=== PATIENT | male | born 1950 | race Caucasian/White ===

== ENCOUNTER → 2018-04-28 07:19 | Outpatient (CLI) | payer MEDICARE, SELFPAY | PROVIDERS: PCP Family Medicine; Visit Provider Surgery | DX: R07.89 Other chest pain (principal); K92.0 Hematemesis | CPT/HCPCS: 99213 ==

== ENCOUNTER 2018-05-13 11:12 | Outpatient (REF) | payer MEDICARE, SELFPAY | END 2018-05-13 11:32 | LOC: NCHCN 11:12 | PROVIDERS: PCP Family Medicine; Visit Provider Family Medicine | DX: J39.2 Other diseases of pharynx (principal) | CPT/HCPCS: 87070 ==

== ENCOUNTER 2018-05-16 12:49 | Emergency (ER) | payer MEDICARE, SELFPAY ==
[2018-05-16] VITALS (21 sets, daily range): BP systolic 119–140; BP diastolic 65–84; PULSE 79–92; RESP 14–23; TEMP 37.1; O2SAT 93–96
--- NOTE | 2018-05-16 13:00 | ED.GENADUL_ITS ---
Discharge Plan Discharge Details Chief Complaint: Chest Pain Primary Care Provider: Arelis Michele V ED Provider: Rc Sandoval Home Meds and New Rx's Prescriptions: No Action venlafaxine [Effexor XR] 75 MG capsule,extended release 24hr 225 mg PO QPM RF: 0 omeprazole [Prilosec] 40 MG capsule,delayed release(DR/EC) 40 mg PO DAILY RF: 0 temazepam 30 MG capsule 30 mg PO HS RF: 0 multivitamin with minerals 1 EACH tablet 1 ea PO DAILY RF: 0 cholecalciferol (vitamin D3) 1,000 UNIT tablet 1,000 unit PO DAILY RF: 0 atorvastatin 10 MG tablet 10 mg PO HS RF: 0 ascorbic acid (vitamin C) [Vitamin C] 500 MG tablet 500 mg PO DAILY RF: 0 budesonide-formoterol [Symbicort] 10.2 GM HFA aerosol inhaler 2 puff Inhalation BID RF: 0 levothyroxine 25 MCG tablet 25 mcg PO DAILY RF: 0 metoprolol succinate 25 MG tablet extended release 24 hr 25 mg PO DAILY RF: 0 albuterol sulfate [ProAir HFA] 8.5 GM HFA aerosol inhaler 1 - 2 puff Inhalation Q6H PRN RF: 0 bupropion HCl [Wellbutrin SR] 150 MG tablet extended release 12 hr 150 mg PO DAILY RF: 0 terazosin 2 MG capsule 2 mg PO HS RF: 0 metronidazole 45 GM cream 45 gm Topical DAILY RF: 0 methylprednisolone [Medrol (Julius)] 4 MG tablets,dose pack 2 mg PO DAILY RF: 0 fluticasone [Flonase Allergy Relief] 9.9 ML spray,suspension 9.9 ml NS BID RF: 0 meclizine 25 MG tablet,chewable 25 mg PO PRN RF: 0 melatonin-pyridoxine HCl (B6) 1 EACH tablet 2 ea PO HS RF: 0 aspirin [Aspir-81] 81 MG tablet,delayed release (DR/EC) 81 mg PO DAILY RF: 0 infliximab [Remicade] 100 MG recon soln 1 ea IV .[id number] RF: 0 Medical Decision Making MDM Narrative Medical decision making narrative: 67-year-old male presents with intermittent episodes of left anterior chest pain over weeks time. He is afebrile and well- appearing. The discomfort is reproducible on exam. Differential diagnosis includes musculoskeletal/atypical chest discomfort, ACS, underlying pneumonia or pneumothorax. The patient was placed on a elder counselor, EKG was obtained, is referred for laboratory testing and x-ray. Patient's imaging studies are chronically elevated right hemidiaphragm without acute findings. His laboratories reveal unremarkable CBC, chemistry panel is unremarkable with a negative troponin. BNP normal at 41. Patient remains without active discomfort. This does appear to be more consistent with atypical chest wall discomfort. He would benefit from follow- up with primary care and consideration of outpatient stress testing if discomfort persists. Discussed home management as well as return precautions with the patient at the bedside prior to discharge. Lab Data Lab results reviewed: Yes I reviewed the patient's lab results. ECG Data Attestation: I personally reviewed and interpreted this ECG (s) as follows: Prior ECG tracings: available for review Interpretation: Normal sinus rhythm, rate of 90, the QRS is slightly widened but intervals otherwise unremarkable. No ST segment elevations present. Compared to tracing dated May 24, 2014 there is no significant changes HPI - General Adult General Mode of arrival: ambulatory . Date/Time Provider Initiated Documentation: 05/16/18 12:53 . Limitations to Documentation: no limitations . Information obtained by: patient . History of Present Illness 67 year old M presents to the emergency department with the chief complaint of CP, described as moderate, Quality is described as burning, and is localized to the chest and left. Patient extremity. and it has been intermittent and now resolved. No relieving factors improve symptom(s), No exacerbating factors reported . Patient notes no other symptoms.. Patient did receive the following treatments prior to arrival, none HPI Narrative: 67-year-old male presents with intermittent episodes of left anterior chest pain that lasts 5-10 minutes at a time, radiated to his elbow, terminate on their own. He states he has not had any trauma, no rash. He does not have a new cough or shortness of breath. He states he had been seen in the primary care office for this twice. No pain at the time of interview Related Data Home Medications Medication Instructions Recorded Confirmed cholecalciferol (vitamin D3) 1,000 unit PO DAILY NS 11/11/12 10/09/17 multivitamin with minerals 1 ea PO DAILY NS 11/11/12 10/09/17 omeprazole [Prilosec] 40 mg PO DAILY tab-cap NS 11/11/12 10/09/17 temazepam 30 mg PO HS NS 11/11/12 10/09/17 venlafaxine [Effexor XR] 225 mg PO QPM tab-cap NS 11/11/12 10/09/17 aspirin [Aspir-81] 81 mg PO DAILY 02/20/14 10/09/17 ascorbic acid (vitamin C) [Vitamin 500 mg PO DAILY 09/28/15 10/09/17 C] atorvastatin 10 mg PO HS tab-cap 09/28/15 10/09/17 budesonide-formoterol [Symbicort] 2 puff INHALATION BID inhaler 09/28/15 levothyroxine 25 mcg PO DAILY tab-cap 11/14/15 10/09/17 albuterol sulfate [ProAir HFA] 1 - 2 puff INHALATION Q6H PRN 12/22/15 10/09/17 inhaler metoprolol succinate 25 mg PO DAILY tab-cap 12/22/15 10/09/17 infliximab [Remicade] 1 ea IV .[id number] 01/18/17 10/09/17 bupropion HCl [Wellbutrin Sr] 150 mg PO DAILY tab-cap 04/28/18 fluticasone [Flonase Allergy 9.9 ml NS BID 04/28/18 Relief] meclizine 25 mg PO PRN tab.chew 04/28/18 melatonin-pyridoxine HCl (B6) 2 ea PO HS 04/28/18 methylprednisolone [Medrol] 2 mg PO DAILY 04/28/18 metronidazole 45 gm TOPICAL DAILY script 04/28/18 terazosin 2 mg PO HS tab-cap 04/28/18 Allergies Allergy/AdvReac Type Severity Reaction Status Date / Time lisinopril AdvReac Mild cough Unverified 04/28/18 12:57 calcium AdvReac unknown Unverified 04/28/18 12:57 Review of Systems Review of Systems 8 systems reviewed and otherwise neg [facility] Medical History Anxiety Complicated grief Depression Dyspnea Elevated hemidiaphragm Epistaxis GERD (gastroesophageal reflux disease) History of partial colectomy Hx of ventral hernia repair Hyperlipidemia Hypertension Hypothyroidism Insomnia Other osteoporosis with current pathological fracture, vertebra(e), subsequent encounter for fracture with routine healing Overweight Peripheral neuropathy Pharyngeal disorder Polyarthralgia Pulmonary hypertension Rheumatoid arthritis Rosacea Sicca syndrome Steroid-induced osteoporosis Social History Smoking/Tobacco Use Status: Never Surgical History Colectomy Colonoscopy - IV Sedation Hernia Repair, Incisional Exam Narrative Exam Narrative: GEN: awake, alert, oriented 3. Pleasant, well groomed, interactive. HEAD: Normocephalic, atraumatic ENT: Mucous membranes moist, oropharynx unremarkable, External ear exam unremarkable EYES: PERRL, EOMI NECK: Full ROM, no KAREN, no menigismus CHEST/RESP: Left anterior chest/pectoral muscle tender to palpation, no rash, clear to auscultation bilateral, no wheeze/rhonchi/rales CARDIOVASCULAR: RRR, no murmur, rub sydnee. 2+ Rad pulse bilateral ABDOMEN: Soft, nontender, no mass. +Bowel sounds EXT: Full ROM, no edema, no rash Neuro: Grossly normal neurologic exam, conversant, interactive. Psych: Speech fluent, thoughts congruent, affect normal
--- NOTE | 2018-05-16 13:08 | DI.RAD_ITS ---
SYMPTOMS/DIAGNOSIS: LT ANTERIOR REPRODUCIBLE CHEST PAIN PORTABLE CHEST: Comparison is made with PA and lateral chest of [id number]. The right diaphragm is again noted to be elevated. The heart is enlarged. The lungs appear clear. No pneumothorax is seen. IMPRESSION: No acute abnormality.
[2018-05-16] MEDS: Normal Saline Flush 10 ML SYR IVP (13:25)
[2018-05-16 13:42] LABS: Abs Immature Grans 0.01 k/cumm (0.0-0.09); Absolute Basophil Count 0.02 k/cumm (0.0-0.2); Absolute Eosinophil Count 0.36 k/cumm (0.0-0.7); Absolute Lymphocyte Count 1.76 k/cumm (1.2-3.4); Absolute Monocyte Count 0.74 k/cumm (0.11-0.7); Absolute Neutrophil Count 6.67 k/cumm (1.2-6.7); Basophils % 0.2; Eosinophils % 3.8; HCT 47.3 % (40.0-50.0); HGB 15.8 g/dL (13.5-17.5); Immature Grans % 0.1; Lymphocytes % 18.4; Mean Corp. HGB Concentration 33.4 g/dL (32.0-36.0); Mean Corpuscular Hemoglobin 29.6 pg (27.0-33.0); Mean Corpuscular Volume 88.7 fL (80-95); Mean Platelet Volume 9.6 fL (8.0-11.0); Monocytes % 7.7; Neutrophils % 69.8; Platelet Count 212 x1000/uL (130-400); RBC 5.33 m/cumm (4.50-6.00); RBC Distribution Width 14.9 % (11.8-14.1); White Blood Cell Count 9.56 k/cumm (4.4-10.8)
[2018-05-16 13:56] LABS: ALT 38 U/L (12-78); AST 27 U/L (15-37); Albumin 3.1 g/dL (3.4-5.0); Alkaline Phosphatase 95 U/L (46-116); Anion Gap 5.3 mmol/L (3-11); BUN 15 mg/dL (7-18); Bilirubin, Total 0.5 mg/dL (0.2-1.0); CO2 30.7 mmol/L (21.0-32.0); CREATININE 1.08 mg/dL (0.70-1.30); Calcium 8.4 mg/dL (8.5-10.1); Chloride 105 mmol/L (98-107); Glucose 120 mg/dL (70-100); Magnesium 1.9 mg/dL (1.8-2.4); NT-proBNP 41 pg/mL; Potassium 3.7 mmol/L (3.5-5.1); Sodium 141 mmol/L (136-145); Total Protein 6.1 g/dL (6.4-8.2)
[2018-05-16 13:58] LABS: Troponin I < 0.02 ng/mL (0.00-0.06)
== END 2018-05-16 14:44 | disposition home or self-care (01) ==
PROVIDERS: Emergency Provider Emergency Medicine; PCP Family Medicine
DX: R07.89 Other chest pain (principal); I10 Essential (primary) hypertension
CPT/HCPCS: 36415; 80053; 93005; 99284; 71045; 83735; 83880; 84484; 85025; 93010

== ENCOUNTER 2018-05-21 00:24 | Outpatient (CLI) | payer MEDICARE, SELFPAY ==
--- NOTE | 2018-05-21 08:12 | MERGEMPI_ITS ---
*[facility]* *[facility]* [address] [place] [address] Myocardial Perfusion Imaging - SPECT Regadenoson Date of study: 05/21/2018 *PATIENT PRESENTATION* Height: 182.9cm (72in) Blood Pressure: Weight: 91.8kg (202lb) BSA: 2.17m^2 Referring physician: Leonidas Blanco Ordering physician: Arelis Michele Impressions: - Abnormal contraction consistent with cardiomyopathy. - Study suggests moderate to large myocardial infarction, with minimal overall ischemia in the territory of the right coronary and left anterior descending arteries. Summary: 1. Myocardial perfusion imaging: The left ventricle is hhrchwonfk-sh-xllzyinn dilated. There is a moderate sized, severely intense, fixed defect involving the basal anteroseptal and mid anteroseptal, mid inferoseptal, mid inferior, mid inferolateral, lateral, apical septal, and apical wall(s). This suggests moderate myocardial infarction in the distribution of right coronary and left anterior descending artery. Overall ischemia: minimal. 2. The left ventricular end-systolic volume is 147ml. The calculated left ventricular ejection fraction after stress: 34%. LV global systolic function is severely reduced. Diffuse left ventricular regional motion abnormalities. There is dyskinesis involving the apical wall(s) of the left ventricle. There is severe hypokinesis involving the inferoseptal, inferior, and inferolateral wall(s) of the left ventricle. 3. Baseline ECG: Normal sinus rhythm with 1degrees AV block and a normal QRS morphology. Recommendations: Cardiology consult to discuss cardiac catheterization in order to evaluate coronary artery disease. This has been arranged, discussed with the referring physician, and discussed with the patient. Indication: R06.00. History: REASON FOR VISIT: INTERMITTENT EPISODES OF LEFT ANTERIOR CHEST PAIN, DESCRIBED PRESSURE. THAT LAST 5-10 MINUTES AT A TIME, RADIATED TO HIS LEFT ELBOW, TERMINATE ON THEIR OWN. LAST EPISODE WAS LAST NIGHT AND AGAIN THIS AM. Risk factors: Hypertension. Dyslipidemia. Cholesterol: 171mg/dl. HDL: 75mg/dl. LDL: 79mg/dl. Triglycerides: 112mg/dl. ALLERGIES: LISINOPRIL. CALCIUM. MEDICATIONS: VENLAFAXINE 225 MG Q PM. TERAZOSIN 2 MG Q HS. TEMAZEPAM 30 MG Q HS. OMEPRAZOLE 40 MG DAILY. MVI W/ MINERALS 1 DAILY. METOPROLOL SUCCINATE 25 MG DAILY. METHYLPREDNISOLONE 2 MG DAILY. MELATONIN-PYRIDOXINE HCL 2 MG Q HS. MECLIZINE 25 MG PRN. LEVOTHYROXINE 25 MCG DAILY. INFLIXIMAB 1 EACH IV Q 3 MONTHS. FLUTICASONE 9.9 ML NS BID. CHOLECALCIFEROL 1,000 UNITS DAILY. BUPROPION HCL 150 MG DAILY. BUDESONID-FORMOTEROL 2 PUFFS BID. ATORVASTATIN 10 MG HS. ASPIRIN 81 MG DAILY. ASCORBIC ACID 500 MG DAILY. ALBUTEROL SULFATE 1-2 PUFFS Q 6 HRS PRN. Imaging Technique: Protocol: Regadenoson. Acquisition: Gated SPECT; 1 day - rest/stress. The patient was imaged in the supine position. Attenuation correction used. Isotope administration: - Rest. Tc[99m]-sestamibi. Dose: 9.9mCi. Injection time: 08:20 AM. Injection to stress time: 00:45. - Stress. Tc[99m]-sestamibi. Dose: 34.9mCi. Injection time: 09:50 AM. 1-2 min before end of exercise Baseline ECG: SINUS RHYTHM. 1ST DEGREE AVB. HR 69 BPM. Normal sinus rhythm with 1degrees AV block and a normal QRS morphology. Stress protocol: +--------+--+ + + !Stage !HR!BP (mmHg) !Comments ! +--------+--+ + + !Baseline!69!132/56 (81)! ! +--------+--+ + + !1 min !85!142/68 (93)!Inject Regadenoson.! +--------+--+ + + !3 min !98!138/70 (93)! ! +--------+--+ + + !6 min !94!134/68 (90)! ! +--------+--+ + + * Stress results: The rate-pressure product for the peak heart rate and blood pressure was 21594zo Hg/min. Stress ECG: LEXISCAN PORTION OF STRESS TEST ENDED IN 6 MINUTES AND 10 SECONDS. PT EXPERIENCED NO SIGNIFICANT SIDE EFFECTS FROM LEXISCAN INJECTION. NORMAL HEART RATE AND BLOOD PRESSURE RESPONSE TO LEXISCAN INJECTION OCCASIONAL PVCs. NO ANGINA NO SIGNIFICANT ST SEGMENT CHANGES. Myocardial perfusion: Imaging information: gated. The image quality was good. The left ventricle is dsqtassaji-rj-ciexgbhj dilated. There is a moderate sized, severely intense, fixed defect involving the basal anteroseptal and mid anteroseptal, mid inferoseptal, mid inferior, mid inferolateral, lateral, apical septal, and apical wall(s). This suggests moderate myocardial infarction in the distribution of right coronary and left anterior descending artery. Overall ischemia: minimal. Ventricular Function (Wall Motion): The left ventricular end-systolic volume is 147ml. The calculated left ventricular ejection fraction after stress: 34%. LV global systolic function is severely reduced. Diffuse left ventricular regional motion abnormalities. There is dyskinesis involving the apical wall(s) of the left ventricle. There is severe hypokinesis involving the inferoseptal, inferior, and inferolateral wall(s) of the left ventricle. Study data: Leonidas Blanco MD supervised and was readily available during the procedure. This study was interpreted by [facility]. Study status: Routine. Consent: The risks, benefits, and alternatives to the procedure were explained to the patient and informed consent was obtained. Procedure: Initial setup. A baseline ECG was recorded. Surface ECG leads and manual cuff blood pressure measurements were monitored. Heart sounds: Normal. Lung sounds: Normal. Regadenoson stress test. Stress testing was performed, with regadenoson by intravenous bolus, for a total dose of 0.4mgover 10.00sec, followed by a 5ml saline flush. The infusion was terminated due to per protocol. Study completion: All catheters inserted during the procedure were removed. The patient tolerated the procedure well and was discharged from the lab. Discharge: The patient left the laboratory in stable condition. Birthdate: Patient birthdate: 1950. Sex: Gender: male. Study date: Study date: 05/21/2018. Study time: 08:12 AM. Signature Documentation: - The imaging portion of this study was interpreted by Nuclear Extrusion Press Adjuster Leonidas Blanco MD. - The imaging portion of this study was interpreted by Nuclear Radiologist Rc Jameson MD. - The Stress ECG portion of this study was interpreted by Leonidas Blanco MD. Electronically signed by Leonidas Blanco 05/21/2018 13:20
[2018-05-21] MEDS: Regadenoson 0.4 MG/5 ML SYR IVP (09:42)
== END 2018-05-21 00:44 ==
PROVIDERS: PCP Family Medicine; Visit Provider Family Medicine
DX: I42.9 Cardiomyopathy, unspecified (principal); I25.2 Old myocardial infarction; I25.10 Atherosclerotic heart disease of native coronary artery without angina pectoris; I51.7 Cardiomegaly; R06.00 Dyspnea, unspecified; I10 Essential (primary) hypertension; E78.5 Hyperlipidemia, unspecified
CPT/HCPCS: 78452; 93016; 93018; 93017; J2785

== ENCOUNTER → 2018-05-26 14:07 | Outpatient (BNVA) | payer MEDICARE, SELFPAY | PROVIDERS: PCP Family Medicine; Visit Provider Internal Medicine Interventional Cardiology | DX: R06.02 Shortness of breath (principal); I51.9 Heart disease, unspecified; R07.9 Chest pain, unspecified; I42.9 Cardiomyopathy, unspecified; I10 Essential (primary) hypertension | CPT/HCPCS: 99215; 99213 ==

== ENCOUNTER 2018-05-28 12:38 | Outpatient (CLI) | payer MEDICARE, SELFPAY | END 2018-05-28 12:58 | PROVIDERS: PCP Family Medicine; Visit Provider Surgery | DX: Z01.818 Encounter for other preprocedural examination (principal) ==

== ENCOUNTER 2018-06-04 11:48 | Outpatient (CLI) | payer MEDICARE, SELFPAY ==
--- NOTE | 2018-06-04 10:16 | DI.RAD_ITS ---
SYMPTOMS/DIAGNOSIS: WHEEZING, R06.2, NOCTURNAL COUGH, R05 CHEST X-RAY, PA AND LATERAL: Comparison is 05/16/18. The heart is enlarged but stable. Pulmonary vasculature is within normal limits. There is unchanged elevation of the right hemidiaphragm. The lungs are clear. No effusions or pneumothoraces are identified. The bones appear intact. IMPRESSION: No acute pulmonary process.
== END 2018-06-04 12:08 ==
PROVIDERS: PCP Family Medicine; Visit Provider Specialist/Technologist Athletic Trainer
DX: R06.2 Wheezing (principal); R05 Cough; I51.7 Cardiomegaly
CPT/HCPCS: 71046

== ENCOUNTER 2018-06-04 20:06 | Outpatient (REF) | payer MEDICARE, SELFPAY ==
[2018-06-04 20:21] LABS: Abs Immature Grans 0.03 k/cumm (0.0-0.09); Absolute Basophil Count 0.02 k/cumm (0.0-0.2); Absolute Eosinophil Count 0.48 k/cumm (0.0-0.7); Absolute Lymphocyte Count 2.11 k/cumm (1.2-3.4); Absolute Monocyte Count 0.88 k/cumm (0.11-0.7); Absolute Neutrophil Count 4.73 k/cumm (1.2-6.7); Basophils % 0.2; Eosinophils % 5.8; HCT 45.3 % (40.0-50.0); HGB 14.8 g/dL (13.5-17.5); Immature Grans % 0.4; Lymphocytes % 25.6; Mean Corp. HGB Concentration 32.7 g/dL (32.0-36.0); Mean Corpuscular Hemoglobin 29.3 pg (27.0-33.0); Mean Corpuscular Volume 89.7 fL (80-95); Mean Platelet Volume 10.3 fL (8.0-11.0); Monocytes % 10.7; Neutrophils % 57.3; Platelet Count 263 x1000/uL (130-400); RBC 5.05 m/cumm (4.50-6.00); RBC Distribution Width 14.9 % (11.8-14.1); White Blood Cell Count 8.25 k/cumm (4.4-10.8)
[2018-06-04 20:43] LABS: ALT 34 U/L (12-78); AST 29 U/L (15-37); Albumin 3.1 g/dL (3.4-5.0); Alkaline Phosphatase 87 U/L (46-116); Anion Gap 8.5 mmol/L (3-11); BUN 14 mg/dL (7-18); Bilirubin, Total 0.4 mg/dL (0.2-1.0); CO2 27.5 mmol/L (21.0-32.0); CREATININE 1.07 mg/dL (0.70-1.30); Calcium 8.6 mg/dL (8.5-10.1); Chloride 106 mmol/L (98-107); Glucose 124 mg/dL (70-100); NT-proBNP 73 pg/mL; Potassium 3.8 mmol/L (3.5-5.1); Sodium 142 mmol/L (136-145); Total Protein 5.4 g/dL (6.4-8.2)
== END 2018-06-04 20:26 ==
LOC: NCHCN 20:06
PROVIDERS: PCP Family Medicine; Visit Provider Specialist/Technologist Athletic Trainer
DX: R05 Cough (principal); R06.2 Wheezing; I42.9 Cardiomyopathy, unspecified
CPT/HCPCS: 80053; 83880; 85025

== ENCOUNTER 2018-06-06 15:31 | Outpatient (CLI) | payer MEDICARE, SELFPAY ==
[2018-06-06 16:31] LABS: HCT 45.4 % (40.0-50.0); HGB 14.9 g/dL (13.5-17.5); Mean Corp. HGB Concentration 32.8 g/dL (32.0-36.0); Mean Corpuscular Hemoglobin 29.1 pg (27.0-33.0); Mean Corpuscular Volume 88.7 fL (80-95); Platelet Count 288 x1000/uL (130-400); RBC 5.12 m/cumm (4.50-6.00); RBC Distribution Width 14.9 % (11.8-14.1); White Blood Cell Count 7.28 k/cumm (4.4-10.8)
[2018-06-06 16:50] LABS: BUN 12 mg/dL (7-18); CREATININE 1.02 mg/dL (0.70-1.30); Chloride 104 mmol/L (98-107); Potassium 4.1 mmol/L (3.5-5.1); Sodium 139 mmol/L (136-145)
[2018-06-06 16:54] LABS: Troponin I < 0.02 ng/mL (0.00-0.06)
[2018-06-06 17:05] LABS: D-Dimer 655 ng/mlFEU (<500)
== END 2018-06-06 15:51 ==
PROVIDERS: Internal Medicine Interventional Cardiology; PCP Family Medicine; Visit Provider Specialist/Technologist Athletic Trainer
DX: R06.02 Shortness of breath (principal)
CPT/HCPCS: 36415; 80051; 84520; 85027; 82565; 84484; 85379

== ENCOUNTER → 2018-06-09 13:59 | Outpatient (BNVA) | payer MEDICARE, SELFPAY | PROVIDERS: PCP Family Medicine; Visit Provider Internal Medicine Interventional Cardiology | DX: I11.0 Hypertensive heart disease with heart failure (principal); R06.02 Shortness of breath; R07.9 Chest pain, unspecified; I51.9 Heart disease, unspecified; I42.9 Cardiomyopathy, unspecified; K92.2 Gastrointestinal hemorrhage, unspecified | CPT/HCPCS: 99213 ==

== ENCOUNTER 2018-08-04 10:10 | Outpatient (CLI) | payer MEDICARE, SELFPAY | END 2018-08-04 10:30 | PROVIDERS: PCP Family Medicine; Visit Provider Internal Medicine Interventional Cardiology | DX: R07.9 Chest pain, unspecified (principal); R06.02 Shortness of breath; I42.9 Cardiomyopathy, unspecified; I10 Essential (primary) hypertension; K92.2 Gastrointestinal hemorrhage, unspecified | CPT/HCPCS: 93005; 93010; 99213 ==

== ENCOUNTER 2018-08-13 00:56 | Outpatient (CLI) | payer MEDICARE, SELFPAY ==
--- NOTE | 2018-08-13 11:09 | DI.RAD_ITS ---
SYMPTOMS/DIAGNOSIS: SUSPECT RT DIAPHRAGM PARALYSIS VS PARESIS, J98.6 CHEST FLUOROSCOPY: Fluoroscopy Time: 40 sec Fluoroscopic evaluation of the hemidiaphragms was performed during the intake of breath. Preliminary chest x-ray again shows prominent elevation of the right hemidiaphragm. This is unchanged in location compared to the oldest chest x-ray available dated 09/14/08. During the examination there was full excursion of the left hemidiaphragm consistent with normal diaphragmatic movement. During the examination there marked decreased movement of the right hemidiaphragm suggesting paresis. IMPRESSION: Marked paresis of the right hemidiaphragm.
== END 2018-08-13 01:16 ==
PROVIDERS: PCP Family Medicine; Visit Provider Internal Medicine Pulmonary Disease
DX: J98.6 Disorders of diaphragm (principal)
CPT/HCPCS: 71023

== ENCOUNTER 2018-08-14 01:01 | Outpatient (CLI) | payer MEDICARE, SELFPAY ==
--- NOTE | 2018-08-14 10:30 | MERGE_ITS ---
*[facility]* *[facility]* [address] [place] [address] Date of study: 08/14/2018 Transthoracic Echocardiography M-mode, complete 2D, complete spectral Doppler, and color Doppler *STUDY CONCLUSIONS* Summary: 1. Left ventricle: The cavity size was normal. Wall thickness was increased in a pattern of mild LVH. Systolic function was mildly reduced. The estimated ejection fraction was 45-50%. Moderate hypokinesis of the apical myocardium. Diastolic parameters were normal for age. There was no evidence of elevated ventricular filling pressure by Doppler parameters. 2. Mitral valve: There was mild regurgitation. 3. Right ventricle: The cavity size was normal. Wall thickness was normal. Systolic function was normal. 4. Atrial septum: No defect or patent foramen ovale was identified. 5. Pulmonary arteries: Pulmonary systolic pressure was in the range of 20mm Hg to 30mm Hg. 6. Inferior vena cava: The vessel was patent and normal in size. The respirophasic diameter changes were in the normal range (greater than or equal to 50%), consistent with normal central venous pressure. *PATIENT PRESENTATION* Height: 180.3cm ((71in) ) S/D Pressure: 115 / 55 Weight: 92.5kg ((203.6lb) ) BSA: 2.17m^2 Test start time: 10:30 AM. Test stop time: 11:40 AM. ORDERING Uriah Sommers MD REFERRING Uriah Sommers MD CONSULTING Arelis Michele V PERFORMING Unknown PERFORMING [facility] AZURE ARCHITECT RT Miko (R)(CT), DEMETRIO *PROCEDURE DATA* Procedure information: The patient was identified by two identifiers. This study was interpreted by [facility]. Pertinent images and digital data are archived for permanent storage and are available for subsequent review. Comparison was made to the study of 10/04/2015. Study status: Routine. Transthoracic echocardiography. M-mode, complete 2D, complete spectral Doppler, and color Doppler. A Transthoracic Echocardiogram was performed. Scanning was performed from the parasternal, apical, subcostal, and suprasternal notch acoustic windows. Images were obtained using an [id number] cardiac ultrasound machine. Image quality was good. Study completion: The patient tolerated the procedure well. History: PMH: Cardiomyopathy, CP SOB ZEPEDA. *CARDIAC ANATOMY* Left ventricle: The cavity size was normal. Wall thickness was increased in a pattern of mild LVH. Systolic function was mildly reduced. The estimated ejection fraction was 45-50%. Regional wall motion abnormalities: Moderate hypokinesis of the apical myocardium. The tissue Doppler parameters were abnormal. Diastolic parameters were normal for age. There was no evidence of elevated ventricular filling pressure by Doppler parameters. Aortic valve: Trileaflet; mildly thickened, mildly calcified leaflets. Doppler: There was no stenosis. There was no regurgitation. VTI ratio of LVOT to aortic valve: 0.86. Valve area (VTI): 2.8cm^2. Indexed valve area (VTI): 1.3cm^2/m^2. Peak velocity ratio of LVOT to aortic valve: 0.82. Valve area (Vmax): 2.7cm^2. Indexed valve area (Vmax): 1.2cm^2/m^2. Mean velocity ratio of LVOT to aortic valve: 0.86. Valve area (Vmean): 2.8cm^2. Indexed valve area (Vmean): 1.3cm^2/m^2. Mean gradient (S): 2.5mm Hg. Peak gradient (S): 4.5mm Hg. Aorta: Aortic root: The aortic root was normal in size. Ascending aorta: The ascending aorta was normal in size. Mitral valve: Doppler: There was no evidence for stenosis. There was mild regurgitation. Valve area by pressure half-time: 3.4cm^2. Indexed valve area by pressure half-time: 1.6cm^2/m^2. Left atrium: The atrium was normal in size. Atrial septum: No defect or patent foramen ovale was identified. Right ventricle: The cavity size was normal. Wall thickness was normal. Systolic function was normal. Pulmonic valve: Doppler: There was no evidence for stenosis. There was trivial regurgitation. Peak gradient (S): 3.3mm Hg. Tricuspid valve: Doppler: There was mild regurgitation. Pulmonary artery: Poorly visualized. Pulmonary systolic pressure was in the range of 20mm Hg to 30mm Hg. Right atrium: The atrium was normal in size. Pericardium: There was no pericardial effusion. Systemic veins: Inferior vena cava: Well visualized. The vessel was patent and normal in size. The respirophasic diameter changes were in the normal range (greater than or equal to 50%), consistent with normal central venous pressure. Baseline ECG: Bradycardia. Measurements Left ventricle Value Reference LV ID, ED, PLAX 5.7 cm 3.5 - 6.0 LV ID, ES, PLAX (H) 4.4 cm 2.1 - 4.0 LV PW thickness, ED, PLAX 1.0 cm LV end-diastolic volume, 1-p A2C 113 ml LV ejection fraction, 1-p A2C 46 % LV end-diastolic volume, 1-p A4C 98 ml LV ejection fraction, 1-p A4C 54 % LV e', lateral 0.079 m/sec LV E/e', lateral 8 LV e', medial 0.068 m/sec LV E/e', medial 10 LV e', average 0.074 m/sec LV E/e', average 9 Ventricular septum Value Reference IVS thickness, ED, PLAX 1.3 cm LVOT Value Reference LVOT ID, A-P 2.0 cm LVOT area 3.3 cm^2 LVOT peak velocity, S 0.87 m/sec LVOT mean velocity, S 0.64 m/sec LVOT VTI, S 19.7 cm LVOT peak gradient, S 3 mm Hg LVOT mean gradient, S 1.8 mm Hg Stroke volume (SV), LVOT DP 65 ml Stroke index (SV/bsa), LVOT DP 30 ml/m^2 Aortic valve Value Reference Aortic valve peak velocity, S 1.1 m/sec Aortic valve mean velocity, S 0.74 m/sec Aortic valve VTI, S 23.0 cm Aortic mean gradient, S 2.5 mm Hg Aortic peak gradient, S 4.5 mm Hg VTI ratio, LVOT/AV 0.86 Aortic valve area, VTI 2.8 cm^2 Velocity ratio, peak, LVOT/AV 0.82 Aortic valve area, peak velocity 2.7 cm^2 Velocity ratio, mean, LVOT/AV 0.86 Aortic valve area, mean velocity 2.8 cm^2 Aortic valve area/bsa, mean velocity 1.3 cm^2/m^2 Aorta Value Reference Aortic root ID, ED 3.6 cm Ascending aorta ID, A-P, S 3.2 cm Left atrium Value Reference LA ID, A-P, ES 3.4 cm LA ID/bsa, A-P 1.6 cm/m^2 <=2.2 LA area, ES, A4C 22.7 cm^2 8.8 - 23.4 LA area, ES, A2C 20 cm^2 LA volume/bsa, ES, 1-p A4C 38 ml/m^2 LA volume, ES, 2-p 63 ml LA volume/bsa, ES, 2-p 29 ml/m^2 LA/aortic root ratio 0.97 Mitral valve Value Reference Mitral E-wave peak velocity 0.65 m/sec Mitral A-wave peak velocity 0.62 m/sec Mitral deceleration time 225 ms 150 - 230 Mitral pressure half-time 65 ms Mitral E/A ratio, peak 1.05 Mitral valve area, PHT, DP 3.4 cm^2 Tricuspid valve Value Reference Tricuspid regurg peak velocity 2.5 m/sec Tricuspid peak RV-RA gradient 24.4 mm Hg Right atrium Value Reference RA area, ES, A4C 10.9 cm^2 8.3 - 19.5 Pulmonic valve Value Reference Pulmonic peak gradient, S 3.3 mm Hg Legend: (L) and (H) jose values outside specified reference range. I have personally reviewed the images and have reviewed and edited the reported findings. Electronically signed by Uriah Sommers MD 09/15/2018 17:18
== END 2018-08-14 01:21 ==
PROVIDERS: PCP Family Medicine; Visit Provider Internal Medicine Interventional Cardiology
DX: R07.9 Chest pain, unspecified (principal); R06.02 Shortness of breath; I42.9 Cardiomyopathy, unspecified; I34.0 Nonrheumatic mitral (valve) insufficiency
CPT/HCPCS: 93306

== ENCOUNTER → 2018-09-12 13:55 | Outpatient (BNVA) | payer MEDICARE, SELFPAY | PROVIDERS: PCP Family Medicine; Referring Provider Family Medicine; Visit Provider Physical Therapy Assistant | DX: Z86.010 Personal history of colon polyps (principal); K21.9 Gastro-esophageal reflux disease without esophagitis; Z12.11 Encounter for screening for malignant neoplasm of colon | CPT/HCPCS: 99213 ==

== ENCOUNTER 2018-09-15 10:35 | Outpatient (CLI) | payer MEDICARE, SELFPAY | END 2018-09-15 10:55 | PROVIDERS: PCP Family Medicine; Visit Provider Internal Medicine Interventional Cardiology | DX: R07.9 Chest pain, unspecified (principal); R00.0 Tachycardia, unspecified; R06.02 Shortness of breath; I42.9 Cardiomyopathy, unspecified; I10 Essential (primary) hypertension | CPT/HCPCS: 99215; 93005; 93010 ==

== ENCOUNTER 2019-01-19 19:37 | Emergency (ER) | payer MEDICARE, SELFPAY ==
[2019-01-19 19:59] VITALS: BP 160/98; PULSE 103; RESP 18; TEMP 36.4; O2SAT 94
[2019-01-19] MEDS: Tetracaine 0.5% 4 ML BTL (20:41)
--- NOTE | 2019-01-19 20:58 | W.ED.GENAD ---
Discharge Plan Disposition Patient Disposition: HOME Condition: Good Discharge Details Chief Complaint: EyeProblem Clinical Impression: Abrasion of cornea, right Primary Care Provider: Arelis Michele V ED Provider: Corey Webb Home Meds and New Rx's Prescriptions: No Action losartan 25 mg tablet 25 mg PO DAILY RF: 0 metoprolol succinate 25 mg tablet extended release 24 hr 12.5 mg PO DAILY RF: 0 bisacodyl [Dulcolax (bisacodyl)] 5 mg tablet,delayed release (DR/EC) 5 mg PO ONCE Qty: 4 RF: 0 polyethylene glycol 3350 17 gram/dose powder 255 g PO ONCE Qty: 255 RF: 0 venlafaxine [Effexor XR] 75 MG capsule,extended release 24hr 225 mg PO QPM RF: 0 omeprazole [Prilosec] 40 MG capsule,delayed release(DR/EC) 40 mg PO DAILY RF: 0 temazepam 30 MG capsule 30 mg PO HS RF: 0 multivitamin with minerals 1 EACH tablet 1 ea PO DAILY RF: 0 cholecalciferol (vitamin D3) 1,000 UNIT tablet 1,000 unit PO DAILY RF: 0 atorvastatin 10 MG tablet 10 mg PO HS RF: 0 ascorbic acid (vitamin C) [Vitamin C] 500 MG tablet 500 mg PO DAILY RF: 0 Symbicort 10.2 GM HFA aerosol inhaler 2 puff Inhalation BID PRNRF: 0 levothyroxine 25 MCG tablet 25 mcg PO DAILY RF: 0 ProAir HFA 8.5 GM HFA aerosol inhaler 1 - 2 puff Inhalation Q6H PRN RF: 0 bupropion HCl [Wellbutrin SR] 150 MG tablet extended release 12 hr 150 mg PO .SUPPER TIME RF: 0 terazosin 2 MG capsule 2 mg PO HS RF: 0 metronidazole 45 GM cream 45 gm Topical DAILY RF: 0 melatonin-pyridoxine HCl (B6) 1 EACH tablet 2 ea PO HS RF: 0 aspirin [Aspir-81] 81 MG tablet,delayed release (DR/EC) 81 mg PO DAILY RF: 0 isosorbide dinitrate 30 mg Tablet 30 mg PO DAILY RF: 0 nitroglycerin 0.4 mg Tablet, Sublingual 0.4 mg SUBLINGUAL ONCE RF: 0 Remicade 100 MG recon soln 1 ea IV .[id number] RF: 0 Discharge Instructions Instructions: Abrasion (ED) Additional Instructions: Please apply the antibiotic ointment 3-4 times per day to the affected eye. 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 If you notice any worsening of your symptoms, or any new symptoms such as worsening vision, more discharge from your eye, vomiting, diarrhea, fever, chills, shortness of breath, chest pain, numbness, weakness, or fainting , please return immediately to the emergency department for reevaluation. Please follow up with your primary care provider as soon as possible for reassessment and reevaluation. As always, it was a pleasure participating in your medical care today. [facility] [address] [place] [address] [address] [place] [phone] Referrals: [facility] [OTHER] - Discharge Data Discharge Date/Time-TO BE ENTERED AT DEPARTURE: 01/19/19 21:40 Medical Decision Making This is a pleasant 68-year-old male who was struck in the right eye by a tree branch. Exam demonstrates a small corneal abrasion. Eversion of the lids demonstrates no retained foreign bodies. Small debris was removed from the eye using a Q-tip, no evidence of rust ring, retained foreign bodies or other abnormalities. Negative Ar sign. Tetanus was updated, erythromycin ointment was given here in the ED. Recommend close follow-up with Dr. Mccullough. Discussed red flags which to return. I have extensively reviewed the treatment plan and discharge instructions with the patient. I have addressed all patient concerns at this time. The patient was made aware of what symptoms to monitor for that would warrant a return to the emergency department. Discussed the plan with the patient, they demonstrate verbal understanding and agreement with our assessment and plan at this time. HPI General Date/Time Provider Initiated Documentation: 01/19/19 20:50. HPI Narrative: This is a 68-year-old male whose tetanus is not up-to-date who presents today for evaluation of corneal abrasion. The patient had a tree branch hit his right eye an hour or so ago. He washed his eye out, but still has pain. He does admit to mild blurry vision. He is not a contact lens wearer. He denies any other complaints at this time. Related Data Home Medications Medication Instructions Recorded Confirmed cholecalciferol (vitamin D3) 1,000 unit PO DAILY NS 11/11/12 09/15/18 multivitamin with minerals 1 ea PO DAILY NS 11/11/12 09/15/18 omeprazole [Prilosec] 40 mg PO DAILY tab-cap NS 11/11/12 09/15/18 temazepam 30 mg PO HS NS 11/11/12 09/15/18 venlafaxine [Effexor XR] 225 mg PO QPM tab-cap NS 11/11/12 09/15/18 aspirin [Aspir-81] 81 mg PO DAILY 02/20/14 09/15/18 Symbicort 2 puff INHALATION BID PRN inhaler 09/28/15 09/15/18 ascorbic acid (vitamin C) [Vitamin 500 mg PO DAILY 09/28/15 09/15/18 C] atorvastatin 10 mg PO HS tab-cap 09/28/15 09/15/18 levothyroxine 25 mcg PO DAILY tab-cap 11/14/15 09/15/18 ProAir HFA 1 - 2 puff INHALATION Q6H PRN 12/22/15 09/15/18 inhaler Remicade 1 ea IV .[id number] 01/18/17 09/15/18 bupropion HCl [Wellbutrin SR] 150 mg PO .SUPPER TIME tab-cap 04/28/18 09/15/18 melatonin-pyridoxine HCl (B6) 2 ea PO HS 04/28/18 09/15/18 metronidazole 45 gm TOPICAL DAILY script 04/28/18 09/15/18 terazosin 2 mg PO HS tab-cap 04/28/18 09/15/18 isosorbide dinitrate 30 mg PO DAILY 05/28/18 09/15/18 nitroglycerin 0.4 mg SUBLINGUAL ONCE 05/28/18 09/15/18 metoprolol succinate ER 25 mg 12.5 mg PO DAILY tab-cap 08/06/18 09/15/18 tablet,extended release 24 hr bisacodyl 5 mg tablet,delayed 5 mg PO ONCE #4 tab 09/12/18 09/15/18 release polyethylene glycol 3350 17 255 g PO ONCE #255 gm 09/12/18 09/15/18 gram/dose oral powder losartan 25 mg tablet 25 mg PO DAILY 09/15/18 09/15/18 Previous Rx's Medication Instructions Recorded bisacodyl 5 mg tablet,delayed 5 mg PO ONCE #4 tab 09/12/18 release polyethylene glycol 3350 17 255 g PO ONCE #255 gm 09/12/18 gram/dose oral powder Allergies Allergy/AdvReac Type Severity Reaction Status Date / Time lisinopril AdvReac Mild cough Verified 01/19/19 20:02 calcium AdvReac unknown Verified 01/19/19 20:02 General Stated Complaint: EyeProblem SHANEKA: 3 Review of Systems Review of Systems All systems reviewed & are unremarkable except as noted in HPI and below [employer] Social History Smoking/Tobacco Use Status: Never Drug use: Never Do you feel safe in your relationship?: Yes Exam Narrative Exam Narrative: 1.Const: Well-nourished, Well-developed, appearing stated age 2.Eyes: PERRL, no conjunctival injection, and symmetrical lids. Right eye: EOMI, PERRL, Peripheral vision intact. No nystagmus. No external signs of preseptal cellulitis, no redness around the eye, no proptosis. No hyphema, no signs of severe trauma around the eye, no periorbital emphysema. Fluorescein exam is positive for corneal abrasion, negative Ar sign. No eye tenderness. No foreign bodies, rust rings, or other abnormalities. Visual acuity as documented in chart. 3.ENT: Atraumatic external nose and ears. Moist MM. Neck: Symmetric, trachea midline, No thyromegaly. 4.CVS: +S1/S2, No murmurs or gallops. Peripheral pulses 2+ and equal in all extremities. Brisk capillary refill in all extremities. 5.RESP: Unlabored respiratory effort. Clear to auscultation bilaterally. No wheezes rales or rhonchi 6.GI: Soft, Nontender/Nondistended, No hepatosplenomegaly. No guarding or rebound. 7.MSK: Normocephalic/Atraumatic, Extremities w/o deformity or ttp No cyanosis or clubbing, Normal movement of all extremities 8.Skin: Warm, Dry. No rashes or lesions. 9.Neuro: health specialist II-XII grossly intact. Sensation grossly intact, no focal neurologic deficits. 10.Psych: (AAO) x3. Appropriate mood and affect Course Vital Signs Temperature 36.4 C L 01/19/19 19:59 Pulse 103 H 01/19/19 19:59 Respiratory Rate 18 01/19/19 19:59 Blood Pressure 160/98 H 01/19/19 19:59 Pulse Oximetry 94 L 01/19/19 19:59 Temperature 36.4 C L 01/19/19 19:59 Temperature Source Temporal Artery Scan 01/19/19 19:59 Pulse 103 H 01/19/19 19:59 Respiratory Rate 18 01/19/19 19:59 Respiratory Effort 01/19/19 20:02 Blood Pressure 160/98 H 01/19/19 19:59 Blood Pressure Position Sitting 01/19/19 19:59 Pulse Oximetry 94 L 01/19/19 19:59 Oxygen Delivery Method Room Air 01/19/19 19:59 Oxygen Flow Rate 0 01/19/19 19:59
--- NOTE | 2019-01-19 21:02 | ED.GENADUL_ITS ---
Discharge Plan Disposition Patient Disposition: HOME Condition: Good Discharge Details Chief Complaint: EyeProblem Clinical Impression: Abrasion of cornea, right Primary Care Provider: Arelis Michele V ED Provider: Corey Webb Home Meds and New Rx's Prescriptions: No Action losartan 25 mg tablet 25 mg PO DAILY RF: 0 metoprolol succinate 25 mg tablet extended release 24 hr 12.5 mg PO DAILY RF: 0 bisacodyl [Dulcolax (bisacodyl)] 5 mg tablet,delayed release (DR/EC) 5 mg PO ONCE Qty: 4 RF: 0 polyethylene glycol 3350 17 gram/dose powder 255 g PO ONCE Qty: 255 RF: 0 venlafaxine [Effexor XR] 75 MG capsule,extended release 24hr 225 mg PO QPM RF: 0 omeprazole [Prilosec] 40 MG capsule,delayed release(DR/EC) 40 mg PO DAILY RF: 0 temazepam 30 MG capsule 30 mg PO HS RF: 0 multivitamin with minerals 1 EACH tablet 1 ea PO DAILY RF: 0 cholecalciferol (vitamin D3) 1,000 UNIT tablet 1,000 unit PO DAILY RF: 0 atorvastatin 10 MG tablet 10 mg PO HS RF: 0 ascorbic acid (vitamin C) [Vitamin C] 500 MG tablet 500 mg PO DAILY RF: 0 Symbicort 10.2 GM HFA aerosol inhaler 2 puff Inhalation BID PRNRF: 0 levothyroxine 25 MCG tablet 25 mcg PO DAILY RF: 0 ProAir HFA 8.5 GM HFA aerosol inhaler 1 - 2 puff Inhalation Q6H PRN RF: 0 bupropion HCl [Wellbutrin SR] 150 MG tablet extended release 12 hr 150 mg PO .SUPPER TIME RF: 0 terazosin 2 MG capsule 2 mg PO HS RF: 0 metronidazole 45 GM cream 45 gm Topical DAILY RF: 0 melatonin-pyridoxine HCl (B6) 1 EACH tablet 2 ea PO HS RF: 0 aspirin [Aspir-81] 81 MG tablet,delayed release (DR/EC) 81 mg PO DAILY RF: 0 isosorbide dinitrate 30 mg Tablet 30 mg PO DAILY RF: 0 nitroglycerin 0.4 mg Tablet, Sublingual 0.4 mg SUBLINGUAL ONCE RF: 0 Remicade 100 MG recon soln 1 ea IV .[id number] RF: 0 Discharge Instructions Instructions: Abrasion (ED) Additional Instructions: Please apply the antibiotic ointment 3-4 times per day to the affected eye. Please follow-up immediately with your director workers compensation. If you notice any worsening of your symptoms, or any new symptoms such as worsening vision, more discharge from your eye, vomiting, diarrhea, fever, chills, shortness of breath, chest pain, numbness, weakness, or fainting , please return immediately to the emergency department for reevaluation. Please follow up with your primary care provider as soon as possible for reassessment and reevaluation. As always, it was a pleasure participating in your medical care today. [facility] [address] [place] [address] [address] [place] [phone] Referrals: [facility] [OTHER] - Discharge Data Discharge Date/Time-TO BE ENTERED AT DEPARTURE: 01/19/19 21:40 Medical Decision Making This is a pleasant 68-year-old male who was struck in the right eye by a tree branch. Exam demonstrates a small corneal abrasion. Eversion of the lids demonstrates no retained foreign bodies. Small debris was removed from the eye using a Q-tip, no evidence of rust ring, retained foreign bodies or other abnormalities. Negative Ar sign. Tetanus was updated, erythromycin ointment was given here in the ED. Recommend close follow-up with Dr. Mccullough. Discussed red flags which to return. I have extensively reviewed the treatment plan and discharge instructions with the patient. I have addressed all patient concerns at this time. The patient was made aware of what symptoms to monitor for that would warrant a return to the emergency department. Discussed the plan with the patient, they demonstrate verbal understanding and agreement with our assessment and plan at this time. HPI General Date/Time Provider Initiated Documentation: 01/19/19 20:50 . HPI Narrative: This is a 68-year-old male whose tetanus is not up-to-date who presents today for evaluation of corneal abrasion. The patient had a tree branch hit his right eye an hour or so ago. He washed his eye out, but still has pain. He does admit to mild blurry vision. He is not a contact lens wearer. He denies any other complaints at this time. Related Data Home Medications Medication Instructions Recorded Confirmed cholecalciferol (vitamin D3) 1,000 unit PO DAILY NS 11/11/12 09/15/18 multivitamin with minerals 1 ea PO DAILY NS 11/11/12 09/15/18 omeprazole [Prilosec] 40 mg PO DAILY tab-cap NS 11/11/12 09/15/18 temazepam 30 mg PO HS NS 11/11/12 09/15/18 venlafaxine [Effexor XR] 225 mg PO QPM tab-cap NS 11/11/12 09/15/18 aspirin [Aspir-81] 81 mg PO DAILY 02/20/14 09/15/18 Symbicort 2 puff INHALATION BID PRN inhaler 09/28/15 09/15/18 ascorbic acid (vitamin C) [Vitamin 500 mg PO DAILY 09/28/15 09/15/18 C] atorvastatin 10 mg PO HS tab-cap 09/28/15 09/15/18 levothyroxine 25 mcg PO DAILY tab-cap 11/14/15 09/15/18 ProAir HFA 1 - 2 puff INHALATION Q6H PRN 12/22/15 09/15/18 inhaler Remicade 1 ea IV .[id number] 01/18/17 09/15/18 bupropion HCl [Wellbutrin SR] 150 mg PO .SUPPER TIME tab-cap 04/28/18 09/15/18 melatonin-pyridoxine HCl (B6) 2 ea PO HS 04/28/18 09/15/18 metronidazole 45 gm TOPICAL DAILY script 04/28/18 09/15/18 terazosin 2 mg PO HS tab-cap 04/28/18 09/15/18 isosorbide dinitrate 30 mg PO DAILY 05/28/18 09/15/18 nitroglycerin 0.4 mg SUBLINGUAL ONCE 05/28/18 09/15/18 metoprolol succinate ER 25 mg 12.5 mg PO DAILY tab-cap 08/06/18 09/15/18 tablet,extended release 24 hr bisacodyl 5 mg tablet,delayed 5 mg PO ONCE #4 tab 09/12/18 09/15/18 release polyethylene glycol 3350 17 255 g PO ONCE #255 gm 09/12/18 09/15/18 gram/dose oral powder losartan 25 mg tablet 25 mg PO DAILY 09/15/18 09/15/18 Previous Rx's Medication Instructions Recorded bisacodyl 5 mg tablet,delayed 5 mg PO ONCE #4 tab 09/12/18 release polyethylene glycol 3350 17 255 g PO ONCE #255 gm 09/12/18 gram/dose oral powder Allergies Allergy/AdvReac Type Severity Reaction Status Date / Time lisinopril AdvReac Mild cough Verified 01/19/19 20:02 calcium AdvReac unknown Verified 01/19/19 20:02 General Stated Complaint: EyeProblem SHANEKA: 3 Review of Systems Review of Systems All systems reviewed & are unremarkable except as noted in HPI and below [facility] Social History Smoking/Tobacco Use Status: Never Drug use: Never Do you feel safe in your relationship?: Yes Exam Narrative Exam Narrative: 1.Const: Well-nourished, Well-developed, appearing stated age 2.Eyes: PERRL, no conjunctival injection, and symmetrical lids. Right eye: EO KS, PERRL, Peripheral vision intact. No nystagmus. No external signs of preseptal cellulitis, no redness around the eye, no proptosis. No hyphema, no signs of severe trauma around the eye, no periorbital emphysema. Fluorescein exam is positive for corneal abrasion, negative Ar sign. No eye tenderness. No foreign bodies, rust rings, or other abnormalities. Visual acuity as documented in chart. 3.ENT: Atraumatic external nose and ears. Moist MM. Neck: Symmetric, trachea midline, No thyromegaly. 4.CVS: +S1/S2, No murmurs or gallops. Peripheral pulses 2+ and equal in all extremities. Brisk capillary refill in all extremities. 5.RESP: Unlabored respiratory effort. Clear to auscultation bilaterally. No wheezes rales or rhonchi 6.GI: Soft, Nontender/Nondistended, No hepatosplenomegaly. No guarding or rebound. 7.MSK: Normocephalic/Atraumatic, Extremities w/o deformity or ttp No cyanosis or clubbing, Normal movement of all extremities 8.Skin: Warm, Dry. No rashes or lesions. 9.Neuro: portfolio architect II-XII grossly intact. Sensation grossly intact, no focal neurologic deficits. 10.Psych: (AAO) x3. Appropriate mood and affect Course Vital Signs Temperature 36.4 C L 01/19/19 19:59 Pulse 103 H 01/19/19 19:59 Respiratory Rate 18 01/19/19 19:59 Blood Pressure 160/98 H 01/19/19 19:59 Pulse Oximetry 94 L 01/19/19 19:59 Temperature 36.4 C L 01/19/19 19:59 Temperature Source Temporal Artery Scan 01/19/19 19:59 Pulse 103 H 01/19/19 19:59 Respiratory Rate 18 01/19/19 19:59 Respiratory Effort 01/19/19 20:02 Blood Pressure 160/98 H 01/19/19 19:59 Blood Pressure Position Sitting 01/19/19 19:59 Pulse Oximetry 94 L 01/19/19 19:59 Oxygen Delivery Method Room Air 01/19/19 19:59 Oxygen Flow Rate 0 01/19/19 19:59
[2019-01-19] MEDS: Erythromycin Ophth Oint 3.5 GM TUBE OD (21:34)
[2019-01-19 21:36] VITALS: BP 160/98; PULSE 88; RESP 18; TEMP 36.7; O2SAT 94
== END 2019-01-19 21:40 | disposition home or self-care (01) ==
PROVIDERS: Emergency Provider Student in an Organized Health Care Education/Training Program; PCP Family Medicine
DX: S05.01XA Injury of conjunctiva and corneal abrasion without foreign body, right eye, initial encounter (principal); W22.8XXA Striking against or struck by other objects, initial encounter
CPT/HCPCS: 90471; 99284

== ENCOUNTER 2019-03-09 09:19 | Outpatient (CLI) | payer MEDICARE, SELFPAY | END 2019-03-09 09:39 | PROVIDERS: PCP Family Medicine; Visit Provider Internal Medicine Interventional Cardiology | DX: R07.9 Chest pain, unspecified (principal); R06.02 Shortness of breath; I42.9 Cardiomyopathy, unspecified; K92.2 Gastrointestinal hemorrhage, unspecified; I51.9 Heart disease, unspecified | CPT/HCPCS: 99214; 93005; 93010 ==

== ENCOUNTER 2019-03-09 19:51 | Outpatient (REF) | payer MEDICARE, SELFPAY ==
[2019-03-09 22:50] LABS: C-Reactive Protein 0.17 mg/dL (0.0-0.3)
[2019-03-09 23:31] LABS: Abs Immature Grans 0.02 k/cumm (0.0-0.09); Absolute Basophil Count 0.02 k/cumm (0.0-0.2); Absolute Eosinophil Count 0.32 k/cumm (0.0-0.7); Absolute Lymphocyte Count 2.15 k/cumm (1.2-3.4); Absolute Monocyte Count 0.69 k/cumm (0.11-0.7); Absolute Neutrophil Count 4.99 k/cumm (1.2-6.7); Basophils % 0.2; Eosinophils % 3.9; HCT 47.7 % (40.0-50.0); HGB 15.9 g/dL (13.5-17.5); Immature Grans % 0.2; Lymphocytes % 26.3; Mean Corp. HGB Concentration 33.3 g/dL (32.0-36.0); Mean Corpuscular Hemoglobin 29.7 pg (27.0-33.0); Mean Corpuscular Volume 89.2 fL (80-95); Mean Platelet Volume 10.6 fL (8.0-11.0); Monocytes % 8.4; Platelet Count 275 x1000/uL (130-400); RBC 5.35 m/cumm (4.50-6.00); RBC Distribution Width 14.5 % (11.8-14.1); White Blood Cell Count 8.19 k/cumm (4.4-10.8)
[2019-03-10 00:43] LABS: ESR 2 MM/HR (1-20)
[2019-03-11 12:43] LABS: Lyme Ab w Rflx to Lyme Confirm Negative
== END 2019-03-09 20:11 ==
LOC: NCHCN 19:51
PROVIDERS: PCP Family Medicine; Visit Provider Nurse Practitioner Family
DX: M25.50 Pain in unspecified joint (principal); M06.9 Rheumatoid arthritis, unspecified
CPT/HCPCS: 85652; 85025; 86140; 86618

== ENCOUNTER 2019-04-13 08:18 | Outpatient (CLI) | payer MEDICARE, SELFPAY | END 2019-04-13 08:38 | PROVIDERS: PCP Family Medicine; Visit Provider Internal Medicine Interventional Cardiology | DX: R06.02 Shortness of breath (principal); I51.9 Heart disease, unspecified; I42.9 Cardiomyopathy, unspecified; I10 Essential (primary) hypertension; R93.3 Abnormal findings on diagnostic imaging of other parts of digestive tract | CPT/HCPCS: 99214; 93005; 93010 ==

== ENCOUNTER 2019-05-19 12:35 | Outpatient (REF) | payer MEDICARE, SELFPAY ==
[2019-05-19 19:19] LABS: HCT 45.8 % (40.0-50.0); Mean Corp. HGB Concentration 32.8 g/dL (32.0-36.0); Mean Corpuscular Hemoglobin 29.8 pg (27.0-33.0); Mean Corpuscular Volume 90.9 fL (80-95); Mean Platelet Volume 10.3 fL (8.0-11.0); Platelet Count 234 x1000/uL (130-400); RBC 5.04 m/cumm (4.50-6.00); RBC Distribution Width 14.7 % (11.8-14.1); White Blood Cell Count 6.75 k/cumm (4.4-10.8)
[2019-05-19 19:38] LABS: ALT 31 U/L (16-63); AST 20 U/L (15-37); Albumin 3.5 g/dL (3.4-5.0); Alkaline Phosphatase 95 U/L (46-116); Anion Gap 6.6 mmol/L (3-11); BUN 21 mg/dL (7-18); Bilirubin, Total 0.3 mg/dL (0.2-1.0); C-Reactive Protein 0.13 mg/dL (0.0-0.3); CO2 29.4 mmol/L (21.0-32.0); Calcium 8.8 mg/dL (8.5-10.1); Chloride 107 mmol/L (98-107); Glucose 88 mg/dL (70-100); Sodium 143 mmol/L (136-145); TSH (W/Ref FT4) 2.64 uIU/mL (0.36-3.74); Total Protein 5.9 g/dL (6.4-8.2)
[2019-05-19 20:10] LABS: ESR 3 mm/hr (1-20)
[2019-05-21 11:33] LABS: PSA, Screening 1.1 ng/ml (0-6.5)
== END 2019-05-19 12:55 ==
LOC: NCHCN 12:35
PROVIDERS: PCP Family Medicine; Visit Provider Family Medicine
DX: M06.9 Rheumatoid arthritis, unspecified (principal); E03.9 Hypothyroidism, unspecified; Z12.5 Encounter for screening for malignant neoplasm of prostate
CPT/HCPCS: 80053; 84153; 85027; 85652; 84443; 86140

== ENCOUNTER 2019-07-01 15:26 | Emergency (ER) | payer MEDICARE, SELFPAY ==
[2019-07-01 15:29] VITALS: BP 111/68; PULSE 91; RESP 18; TEMP 36.5; O2SAT 95
--- NOTE | 2019-07-01 15:41 | DI.US_ITS ---
EXAM: US LOWER EXTREMITY VENOUS RT CLINICAL HISTORY: right leg swelling TECHNIQUE: Ultrasound performed using standard protocol. COMPARISON: No exams were available for comparison FINDINGS: The femoral and popliteal veins and visualized portions of the calf veins are freely compressible. No thrombus is visible. The doppler venous wave form augments normally. There is a smoothly margina yudith, heterogeneous, hypoechoic collection in the right mid calf which shows no evidence of blood flow . The findings likely represent a hematoma. It measures 18.7 cm in length by 4.7 x 1.8 cm in AP and transverse dimensions. IMPRESSION: Calf hematoma. No evidence of DVT.
--- NOTE | 2019-07-01 17:40 | W.ED.GENAD ---
Discharge Plan Disposition Patient Disposition: HOME Condition: Stable Discharge Details Chief Complaint: Vascular Clinical Impression: Hematoma, Hypokalemia Primary Care Provider: Arelis Michele V ED Provider: Hermila Gaytan Home Meds and New Rx's Prescriptions: Continued metoprolol succinate 25 mg tablet extended release 24 hr 25 mg PO DAILY Qty: 90 RF: 4 atorvastatin 40 mg tablet 40 mg PO DAILY RF: 0 omeprazole [Prilosec] 40 MG capsule,delayed release(DR/EC) 40 mg PO DAILY RF: 0 temazepam 30 MG capsule 30 mg PO HS RF: 0 multivitamin with minerals 1 EACH tablet 1 ea PO DAILY RF: 0 cholecalciferol (vitamin D3) 1,000 UNIT tablet 1,000 unit PO DAILY RF: 0 ascorbic acid (vitamin C) [Vitamin C] 500 MG tablet 500 mg PO DAILY RF: 0 Symbicort 10.2 GM HFA aerosol inhaler 2 puff Inhalation BID PRNRF: 0 levothyroxine 25 MCG tablet 25 mcg PO DAILY RF: 0 albuterol sulfate [ProAir HFA] 8.5 GM HFA aerosol inhaler 1 - 2 puff Inhalation Q6H PRN RF: 0 bupropion HCl [Wellbutrin SR] 150 MG tablet extended release 12 hr 150 mg PO .SUPPER TIME RF: 0 terazosin 2 MG capsule 2 mg PO HS RF: 0 venlafaxine [Effexor XR] 75 mg capsule,extended release 24hr 150 mg PO QPM RF: 0 metronidazole 0.75 % cream 1 applic Topical BID RF: 0 aspirin [Aspir-81] 81 MG tablet,delayed release (DR/EC) 81 mg PO DAILY RF: 0 isosorbide dinitrate 30 mg Tablet 30 mg PO DAILY RF: 0 nitroglycerin 0.4 mg Tablet, Sublingual 0.4 mg SUBLINGUAL ONCE RF: 0 methylprednisolone [Medrol] 4 mg Tablet 4 mg PO DAILY RF: 0 venlafaxine [Effexor XR] 150 mg Capsule,Extended Release 24hr 150 mg PO DAILY RF: 0 fluticasone propionate [Flonase Allergy Relief] 50 mcg/actuation [place],Suspension 50 mcg INTRANASAL RF: 0 Discharge Instructions Instructions: Hypokalemia (ED), Hematoma (ED) Additional Instructions: It is very important that you keep your right leg elevated with 2 pillows, to approximately the level of your heart. Please do not drive or sit with your leg below the level of your heart for prolonged periods as you discussed with orthopedic surgery. Please return immediately to the emergency department if you develop any new or worsening symptoms or if you become otherwise concerned. It is extremely important that you call as soon as possible to make an appointment to be seen in follow-up for this visit by your primary care doctor and also by an orthopedic surgeon. Referrals: Arelis Michele MD [Primary Care Provider] - Jamie Garcia MD [ [facility] STAFF PHYSICIAN] - Discharge Data Discharge Date/Time-TO BE ENTERED AT DEPARTURE: 07/01/19 19:00 Medical Decision Making Wesly Ybarra is a 68 y/o man with a history of GERD, rheumatoid arthritis, hypertension, hyper lipidemia, pulmonary hypertension who presented to the emergency department with leg pain that began yesterday morning without inciting event, worsening since that time and now with numbness and coolness of his foot for the past 2 hours. Concern for DVT, hematoma, possible early compartment syndrome. Plan for ultrasound, screening labs, orthopedic consultation. Ultrasound shows popliteal hematoma. Labs reviewed, nondiagnostic. Dr. Osborne of orthopedic surgery at bedside to evaluate patient, no concern for compartment syndrome at this time, recommends elevation to level of the heart, outpatient follow-up, no further intervention at this time. I had a lengthy discussion with the patient regarding return to emergency department precautions, importance of outpatient follow-up, home care. Patient verbalized understanding of the plan and was amenable. All questions were answered. Patient was discharged home with clear plan for outpatient follow-up. Medical Records Medical records reviewed: Yes I reviewed the patient's medical records. Imaging Data Radiologic Study: Attestation: I personally reviewed and interpreted this imaging study as follows: Radiologist's impression: Exam: US Duplex Right Lower Extremity Veins, Limited Exam date and time: 07/01/2019 5:05 PM Clinical history: 68 years old, male; Other: Right calf pain TECHNIQUE: Imaging protocol: Real-time Duplex ultrasound of the Right Lower Extremity with 2-D jiang scale, color Doppler flow and spectral waveform analysis with image documentation. Limited exam was focused on the right lower extremity veins. COMPARISON: No relevant prior studies available. FINDINGS: Right deep veins: Unremarkable. The common femoral, femoral, proximal profunda femoral are patent without thrombus. Normal Doppler waveforms. Normal compressibility and/or augmentation response. Limited evaluation of the right popliteal vein secondary to nearby hematoma, however the vein compresses with the color flow. Right superficial veins: Unremarkable. Saphenofemoral junction is patent without thrombus. Soft tissues: Complex area in the popliteal fossa measuring 4.5 x 4.8 x 4.6 cm with no internal vascularity, likely representing a hematoma. IMPRESSION: No DVT of the right lower extremity. Right popliteal fossa hematoma measuring 4.5 x 4.8 x 4.6 cm. Lab Data Lab results reviewed: Yes I reviewed the patient's lab results. Labs: Laboratory Tests Range/Units 07/01/19 07/01/19 07/01/19 15:56 15:56 15:56 WBC (4.4-10.8) k/cumm 9.42 RBC (4.50-6.00) m/cumm 4.90 Hgb (13.5-17.5) g/dL 14.8 Hct (40.0-50.0) % 43.9 MCV (80-95) fL 89.6 MCH (27.0-33.0) pg 30.2 MCHC (32.0-36.0) g/dL 33.7 RDW (11.8-14.1) % 14.3 H Plt Count (130-400) x1000/uL 273 MPV (8.0-11.0) fL 10.0 Immature Gran % 0.1 Neutrophils % 73.0 Lymphocytes % 17.3 Monocytes % 6.3 Eosinophils % 3.1 Basophils % 0.2 Absolute Neutrophils (1.2-6.7) k/cumm 6.88 H Absolute Lymphocytes (1.2-3.4) k/cumm 1.63 Absolute Monocytes (0.11-0.7) k/cumm 0.59 Absolute Eosinophils (0.0-0.7) k/cumm 0.29 Absolute Basophils (0.0-0.2) k/cumm 0.02 PT (9.3-11.0) sec 10.4 INR (0.9-1.1) 1.0 Sodium (136-145) mmol/L 140 Potassium (3.5-5.1) mmol/L 3.3 L Chloride (98-107) mmol/L 106 Carbon Dioxide (21.0-32.0) mmol/L 24.0 Anion Gap (3-11) mmol/L 10.0 BUN (7-18) mg/dL 17 Creatinine (0.70-1.30) mg/dL 1.10 Estimated GFR/1.73 m2 (mL/min/1.73m2) >= 60.00 Glucose (70-100) mg/dL 124 H Calcium (8.5-10.1) mg/dL 8.8 Total Bilirubin (0.2-1.0) mg/dL 0.6 AST (15-37) U/L 17 ALT (16-63) U/L 26 Alkaline Phosphatase (46-116) U/L 102 Creatine Kinase (39-308) U/L 112 Total Protein (6.4-8.2) g/dL 6.0 L Albumin (3.4-5.0) g/dL 3.3 L HPI General Mode of arrival: ambulatory. Date/Time Provider Initiated Documentation: 07/01/19 15:36. Limitations to Documentation: no limitations. Information obtained by: patient, RN notes reviewed and old records reviewed. HPI Narrative: Wesly Ybarra is a 68-year-old man with a history of GERD, rheumatoid arthritis, hypertension, hyper lipidemia, pulmonary hypertension presenting to the emergency department with leg pain. Patient reports that yesterday morning he woke up with pain behind his right knee. Patient reports that there has been no known trauma or inciting event. Patient reports the pain has been increasing since he woke up yesterday morning. He has also noticed some bruising to the medial aspect of his right knee, but again states that he does not know what caused this. Patient reports that approximately 2 hours ago his right foot started to feel numb and cold. He has never had similar symptoms in the past. He denies any other pain or any other symptoms. Feels otherwise in his usual state of health. Has been eating and drinking as usual. No recent illness. Related Data Home Medications Medication Instructions Recorded Confirmed cholecalciferol (vitamin D3) 1,000 unit PO DAILY NS 11/11/12 07/01/19 multivitamin with minerals 1 ea PO DAILY NS 11/11/12 07/01/19 omeprazole [Prilosec] 40 mg PO DAILY tab-cap NS 11/11/12 07/01/19 temazepam 30 mg PO HS NS 11/11/12 07/01/19 aspirin [Aspir-81] 81 mg PO DAILY 02/20/14 07/01/19 Symbicort 2 puff INHALATION BID PRN inhaler 09/28/15 07/01/19 ascorbic acid (vitamin C) [Vitamin 500 mg PO DAILY 09/28/15 07/01/19 C] levothyroxine 25 mcg PO DAILY tab-cap 11/14/15 07/01/19 albuterol sulfate [ProAir HFA] 1 - 2 puff INHALATION Q6H PRN 12/22/15 07/01/19 inhaler bupropion HCl [Wellbutrin SR] 150 mg PO .SUPPER TIME tab-cap 04/28/18 07/01/19 terazosin 2 mg PO HS tab-cap 04/28/18 07/01/19 isosorbide dinitrate 30 mg PO DAILY 05/28/18 07/01/19 nitroglycerin 0.4 mg SUBLINGUAL ONCE 05/28/18 07/01/19 Effexor XR 75 mg capsule,extended 150 mg PO QPM tab-cap NS 03/09/19 07/01/19 release metoprolol succinate 25 mg 25 mg PO DAILY #90 tab 03/09/19 07/01/19 tablet,extended release 24 hr metronidazole 0.75 % topical cream 1 applic TOPICAL BID gm 03/09/19 07/01/19 atorvastatin 40 mg tablet 40 mg PO DAILY 04/13/19 07/01/19 fluticasone propionate [Flonase 50 mcg INTRANASAL 07/01/19 Allergy Relief] methylprednisolone [Medrol] 4 mg PO DAILY 07/01/19 07/01/19 venlafaxine [Effexor XR] 150 mg PO DAILY 07/01/19 07/01/19 Previous Rx's Medication Instructions Recorded metoprolol succinate 25 mg 25 mg PO DAILY #90 tab 03/09/19 tablet,extended release 24 hr Allergies Allergy/AdvReac Type Severity Reaction Status Date / Time lisinopril AdvReac Mild cough Verified 07/10/19 13:43 calcium AdvReac unknown Verified 07/10/19 13:43 General Stated Complaint: Vascular SHANEKA: 3 Review of Systems Narrative: Constitutional: denies fevers Eyes: denies eye pain ENT: denies facial pain, dental pain, sore throat Cardiovascular: denies chest pain Respiratory: denies SOB, cough GI: denies abdominal pain, vomiting, diarrhea : denies flank pain MSK: denies back pain, neck pain, reports knee/leg pain as per HPI without other myalgias or arthralgias Skin: denies rash Neuro: denies headaches, numbness, weakness PFSH Medical History Anxiety Complicated grief Depression Dyspnea Elevated hemidiaphragm Epistaxis GERD (gastroesophageal reflux disease) History of partial colectomy Hx of ventral hernia repair Hyperlipidemia Hypertension Hypothyroidism Insomnia Other osteoporosis with current pathological fracture, vertebra(e), subsequent encounter for fracture with routine healing Overweight Peripheral neuropathy Pharyngeal disorder Polyarthralgia Pulmonary hypertension Rheumatoid arthritis Rosacea Sicca syndrome Steroid-induced osteoporosis Social History Smoking/Tobacco Use Status: Never Alcohol Intake: never Drug use: Never Do you feel safe at home: Yes Do you feel safe in your relationship?: Yes Exam Narrative Exam Narrative: Constitutional: well and [id number], pleasant, conversing normally HENT: head atraumatic/normocephalic/normal inspection, mucous membranes moist Eyes: conjunctiva normal, sclera normal, pupils 3mm b/l Neck: no stridor, normal ROM, trachea midline Chest: normal inspection Resp: normal work of breathing, LCTAB Cardio: normal rate, normal rhythm, no murmur appreciated Skin: warm, dry, normal color, no rash Neuro: alert, not altered, grossly non-focal, normal tone Ext: Right lower leg 2+ edema, right popliteal area edematous and tender to palpation, tenderness to palpation of the posterior right calf, compartments of right lower leg firm but not tense, pain with passive dorsiflexion of the right foot, DP pulses intact and symmetric bilaterally, cold toes bilaterally but worse on the right, subjective sensory deficit of the right foot, normal exam of the left lower extremity, no pallor or erythema of bilateral lower extremities Psych: normal mood, normal affect, normal behavior Course Vital Signs Vital signs: Vital Signs Temperature 36.5 C 07/01/19 15:29 Pulse 91 H 07/01/19 15:29 Respiratory Rate 18 07/01/19 15:29 Blood Pressure 111/68 07/01/19 15:29 Pulse Oximetry 95 07/01/19 15:29 Temperature 36.5 C 07/01/19 15:29 Temperature Source Skin 07/01/19 15:29 Pulse 91 H 07/01/19 15:29 Respiratory Rate 18 07/01/19 15:29 Respiratory Effort 07/01/19 15:35 Blood Pressure 111/68 07/01/19 15:29 Blood Pressure Position Sitting 07/01/19 15:29 Pulse Oximetry 95 07/01/19 15:29 Oxygen Delivery Method Room Air 07/01/19 15:29 Oxygen Flow Rate 0 07/01/19 15:29 Pain Level 8 07/01/19 15:29
[2019-07-01 17:49] LABS: Abs Immature Grans 0.01 k/cumm (0.0-0.09); Absolute Basophil Count 0.02 k/cumm (0.0-0.2); Absolute Eosinophil Count 0.29 k/cumm (0.0-0.7); Absolute Lymphocyte Count 1.63 k/cumm (1.2-3.4); Absolute Monocyte Count 0.59 k/cumm (0.11-0.7); Absolute Neutrophil Count 6.88 k/cumm (1.2-6.7); Basophils % 0.2; Eosinophils % 3.1; HCT 43.9 % (40.0-50.0); HGB 14.8 g/dL (13.5-17.5); Immature Grans % 0.1; Lymphocytes % 17.3; Mean Corp. HGB Concentration 33.7 g/dL (32.0-36.0); Mean Corpuscular Hemoglobin 30.2 pg (27.0-33.0); Mean Corpuscular Volume 89.6 fL (80-95); Monocytes % 6.3; Platelet Count 273 x1000/uL (130-400); RBC Distribution Width 14.3 % (11.8-14.1); White Blood Cell Count 9.42 k/cumm (4.4-10.8)
[2019-07-01 18:09] LABS: ALT 26 U/L (16-63); AST 17 U/L (15-37); Albumin 3.3 g/dL (3.4-5.0); Alkaline Phosphatase 102 U/L (46-116); BUN 17 mg/dL (7-18); Bilirubin, Total 0.6 mg/dL (0.2-1.0); Calcium 8.8 mg/dL (8.5-10.1); Chloride 106 mmol/L (98-107); Creatine Kinase 112 U/L (39-308); Glucose 124 mg/dL (70-100); Potassium 3.3 mmol/L (3.5-5.1); Sodium 140 mmol/L (136-145)
--- NOTE | 2019-07-01 18:09 | OCONE_ITS ---
Date of service: 07/01/19 Time of Service: 18:09 History of Present Illness Narrative: Chief Complaint: Right calf pain HPI: 5-year-old male describes atraumatic pop behind his right knee yesterday morning approximately 36 hours ago with resulting fullness bruising and pain. Went about his normal day standing, sitting, and driving. Discomfort and fullness behind his knee and upper calf persisted today and he drove himself to the emergency room for evaluation. No known precipitating injury. No prior occurrence. No attempted treatments. States that he takes 81 mg of aspirin daily as a blood thinner. Describes his pain as mild at rest and moderate when walking. No dramatic c hange throughout the day today noted. PMH: As per EMR allergies: Lisinopril causes cough FH: non-contributory SH: hand dominance: Right occupation: Retired smoke cigarettes: Unknown Consult Reason Right leg compartment syndrome Assessment and Plan Assessment and plan (1) Leg hematoma: Status: Acute Assessment and plan: 68-year-old male 36 hours status post right posterior knee atraumatic popliteal hematoma. No signs of acute distress. Clinical exam without signs of compartment syndrome at this time. Recommend elevation at the level of the heart until swelling begins to subside. Instructed the patient on active ankle range of motion calf pump exercises as well as knee range of motion to encourage circulation and limit stiffness. No need for Jd compressive wrap at this time. Do not recommend the patient keep the leg in a dependent position like for driving for long times. This was reiterated with the patient. Recommend continued observation by the patient on outpatient for any signs of worsening or developing compartment syndrome. The findings of leg tightness, significant and unrelenting pain, coolness, pallor, and paresthesias were reviewed with the patient. He voiced good understanding. Follow-up with primary medical doctor and/or orthopedics as needed All questions were answered Agree and understand treatment plan Will call if any changes or concerns Qualifiers: Encounter type: initial encounter Laterality: right Qualified Code(s): S80.11XA - Contusion of right lower leg, initial encounter Review of Systems Constitutional Constitutional: Denies chills and Denies fever(s) Eyes Eyes: Denies diplopia and Denies loss of vision ENT Ears, Nose, Mouth, and Throat: Denies dental pain and Denies other (cavities) Cardiovascular Cardiovascular: Denies chest pain with activity, Denies irregular heart rhythm and Denies dyspnea Respiratory Respiratory: Denies cough and Denies dyspnea Gastrointestinal Gastrointestinal: Denies nausea and Denies vomiting Musculoskeletal Musculoskeletal: Reports as per HPI Comments: Relates history of rheumatoid arthritis and arthritic joint symptoms Integumentary/Breasts Skin/Breast: Denies rash and Denies wounds Neurologic Neurologic: Reports as per HPI and Denies loss of vision Psychiatric Psychiatric: Reports anxiety and Reports depression Hematologic/Lymphatic Hematologic/Lymphatic: Reports easy bleeding and Reports easy bruising Allergic/Immunologic Allergic/Immunologic: Reports as per HPI [facility] Medical History Anxiety Complicated grief Depression Dyspnea Elevated hemidiaphragm Epistaxis GERD (gastroesophageal reflux disease) History of partial colectomy Hx of ventral hernia repair Hyperlipidemia Hypertension Hypothyroidism Insomnia Other osteoporosis with current pathological fracture, vertebra(e), subsequent encounter for fracture with routine healing Overweight Peripheral neuropathy Pharyngeal disorder Polyarthralgia Pulmonary hypertension Rheumatoid arthritis Rosacea Sicca syndrome Steroid-induced osteoporosis Surgical History (Updated 04/13/19 @ 15:47 by Britany Friedman RN) Colectomy Colonoscopy - IV Sedation Hernia Repair, Incisional Stented coronary artery (Acute ~03/20/19) Social History Smoking/Tobacco Use Status: Never Drug use: Never Do you feel safe in your relationship?: Yes Exam Const General: cooperative, comfortable and no acute distress Orientation: alert, awake and not confused Limitations: mental status not altered and no language barrier HENMT Head: normocephalic and atraumatic Neck Neck: normal visual inspection and trachea midline Resp Effort & Inspection: normal respiratory effort, able to speak in complete sentences, no audible wheezes and no grunting Cardio Rate: regular rate Rhythm: regular rhythm Pulses: posterior tibial pulses present and dorsalis pedis pulses present Other: Lower extremity pulses 2+ strong and equal bilateral General: deferred Back/Spine/Pelvis Other: Negative straight leg raise. Negative radiculopathy. Skin General skin exam: ecchymosis (Medial knee, mild), no erythema, no mottling and no pallor Trauma: lacerations and/or abrasions noted Wounds: wound noted Neuro General: alert, awake and oriented x3 Cognition: normal cognition Speech: speech normal Motor: muscle tone normal throughout (Intact strength quadriceps, intact motor tibant, gastrocsoleus, EHL, FHL) Sensory Exam: no sensory deficits noted (Throughout the right lower extremity) Extrem Other: Right lower extremity: Mild ecchymosis medial knee. All thigh compartments soft. Posterior leg superficial compartment compressible proximally and soft distally. Anterior and lateral compartments soft. Negative provocative test with ankle passive range of motion and toe range of motion for significant pain. Distal pulses strong and palpable. Moderate fullness behind the knee. Able to tolerate and range of motion from full extension to 90 degrees knee flexion until there is moderate discomfort. Psych Appearance: grossly normal Mental Status: mental status grossly normal Speech and Movement: speech and movement normal Mood: congruent mood Affect: normal affect Attitude: cooperative Results Last Vital Signs Temp 36.5 C 07/01/19 15:29 Pulse 91 H 07/01/19 15:29 Resp 18 07/01/19 15:29 BP 111/68 07/01/19 15:29 Pulse Ox 95 07/01/19 15:29 Labs Result diagrams: 07/01/19 15:56 07/01/19 15:56 Labs: Laboratory Results - last 24 hr 07/01/19 15:56 WBC 9.42 RBC 4.90 Hgb 14.8 Hct 43.9 MCV 89.6 MCH 30.2 MCHC 33.7 RDW 14.3 H Plt Count 273 MPV 10.0 Immature Gran % 0.1 Neutrophils % 73.0 Lymphocytes % 17.3 Monocytes % 6.3 Eosinophils % 3.1 Basophils % 0.2 Absolute Neutrophils 6.88 H Absolute Lymphocytes 1.63 Absolute Monocytes 0.59 Absolute Eosinophils 0.29 Absolute Basophils 0.02 Imaging Imaging Studies: Right lower extremity ultrasound images and report independently interpreted: Negative for DVT. Moderately sized fluid collection in the posterior knee popliteal region consistent with hematoma. No active bleeding. Compressible veins.
[2019-07-01 18:11] LABS: Prothrombin Time 10.4 sec (9.3-11.0)
[2019-07-01] MEDS: Potassium Chloride 20 MEQ TABCR 40 MEQ PO (18:50)
[2019-07-01 19:02] VITALS: BP 111/68; PULSE 91; RESP 18; TEMP 36.5; O2SAT 95
== END 2019-07-01 19:00 | disposition home or self-care (01) ==
PROVIDERS: Emergency Provider Student in an Organized Health Care Education/Training Program; PCP Family Medicine
DX: S80.11XA Contusion of right lower leg, initial encounter (principal); E87.6 Hypokalemia; X58.XXXA Exposure to other specified factors, initial encounter; I10 Essential (primary) hypertension
CPT/HCPCS: 36415; 80053; 82550; 99254; 99284; 85025; 85610; 93971

== ENCOUNTER 2019-07-10 13:18 | Emergency (ER) | payer MEDICARE, SELFPAY ==
[2019-07-10 13:41] VITALS: BP 175/65; PULSE 70; RESP 18; TEMP 37.1; O2SAT 98
--- NOTE | 2019-07-10 14:04 | ED.GENADUL_ITS ---
Discharge Plan Disposition Patient Disposition: HOME Condition: Stable Discharge Details Chief Complaint: Orthopedic Clinical Impression: Strain of gastrocnemius muscle, Hematoma of lower leg Primary Care Provider: Arelis Michele V ED Provider: Chayito Jameson Home Meds and New Rx's Prescriptions: Continued metoprolol succinate 25 mg tablet extended release 24 hr 25 mg PO DAILY Qty: 90 RF: 4 atorvastatin 40 mg tablet 40 mg PO DAILY RF: 0 omeprazole [Prilosec] 40 MG capsule,delayed release(DR/EC) 40 mg PO DAILY RF: 0 temazepam 30 MG capsule 30 mg PO HS RF: 0 multivitamin with minerals 1 EACH tablet 1 ea PO DAILY RF: 0 cholecalciferol (vitamin D3) 1,000 UNIT tablet 1,000 unit PO DAILY RF: 0 ascorbic acid (vitamin C) [Vitamin C] 500 MG tablet 500 mg PO DAILY RF: 0 Symbicort 10.2 GM HFA aerosol inhaler 2 puff Inhalation BID PRNRF: 0 levothyroxine 25 MCG tablet 25 mcg PO DAILY RF: 0 albuterol sulfate [ProAir HFA] 8.5 GM HFA aerosol inhaler 1 - 2 puff Inhalation Q6H PRN RF: 0 bupropion HCl [Wellbutrin SR] 150 MG tablet extended release 12 hr 150 mg PO .SUPPER TIME RF: 0 terazosin 2 MG capsule 2 mg PO HS RF: 0 venlafaxine [Effexor XR] 75 mg capsule,extended release 24hr 150 mg PO QPM RF: 0 metronidazole 0.75 % cream 1 applic Topical BID RF: 0 aspirin [Aspir-81] 81 MG tablet,delayed release (DR/EC) 81 mg PO DAILY RF: 0 isosorbide dinitrate 30 mg Tablet 30 mg PO DAILY RF: 0 nitroglycerin 0.4 mg Tablet, Sublingual 0.4 mg SUBLINGUAL ONCE RF: 0 methylprednisolone [Medrol] 4 mg Tablet 4 mg PO DAILY RF: 0 venlafaxine [Effexor XR] 150 mg Capsule,Extended Release 24hr 150 mg PO DAILY RF: 0 fluticasone propionate [Flonase Allergy Relief] 50 mcg/actuation [place],Suspension 50 mcg INTRANASAL RF: 0 Discharge Instructions Instructions: Hematoma (ED) Additional Instructions: Rest and elevate right leg as much as possible. Alternate ice and heat to the affected area occasionally for 15 minutes at a time. Take Tylenol as needed and directed for pain. Follow-up with Dr. Garcia in the orthopedics office next week. Return to the emergency department if you develop any worsening or new concerning symptoms such as fever, worsening pain, loss of sensation, weakness o r skin color changes. Referrals: Jamie Garcia MD [ [facility] STAFF PHYSICIAN] - Discharge Data Discharge Physician: Chayito Jameson Medical Decision Making 68-year-old male with history of rheumatoid arthritis, anxiety, hypertension, hyperlipidemia, hypothyroidism who presents for evaluation after abnormal CT of his knee. Patient was sent here by his rheumatology nurse practitioner. Patient was seen here on 07/01/2019 for right knee and calf pain after felt a pop while walking. He had been evaluated by orthopedics at that time and diagnosed with a popliteal hematoma and he was advised to rest and elevate. Patient states his swelling has improved since then but still with pain. Patient has ecchymosis of the right medial thigh with tenderness palpation right posterior knee and right calf. There is induration of the right calf but the remainder of the compartments are soft. Exam not consistent with compartment syndrome at this time. He is neurovascularly intact. CT from [facility] reviewed which noted findings are most suggestive of plantaris tendon rupture and/or intramuscular hematoma within the right medial gastrocnemius muscle. MRI is recommended for further characterization. Case and CT report reviewed with Dr. Garcia -he continues to recommend rest and elevation and can also send with an Jd wrap to wear at times. We will follow-u p with patient in the office next week for evaluation and possible physical therapy. Patient was given an Jd wrap to go. He was also given crutches to help with ambulation as he has pain with weightbearing. He was advised to also purchase a cane if needed. He was placed on orthopedic follow-up list. He is advised to return here immediately if he develops any significant worsening pain, pallor, paresthesias, fever or any other concerns. Medical Records Medical records reviewed: Yes I reviewed the patient's medical records. HPI General Mode of arrival: ambulatory . Date/Time Provider Initiated Documentation: 07/10/19 13:29 . Limitations to Documentation: no limitations . Information obtained by: patient . HPI Narrative: Patient is a 68-year-old male with a history of anxiety, rheumatoid arthritis, depression, hypertension, hyperlipidemia, hypothyroidism presents for evaluation per rheumatology nurse practitioner at [facility]. Patient was seen here on 07/01/2019 for right knee and calf pain after feeling a pop while walking. He was seen by orthopedics at that time and recommended ice and elevation for possible popliteal hematoma. Patient states he followed up with his regularly scheduled rheumatology appointment recently and she sent him for a CT of his right knee due to his pa in. Patient states this nurse practitioner advised patient come to the ER for further evaluation due to the CT report which he states noted some tendon problem. Patient states overall his swelling has improved. He states his pain has been persistent. He denies any fever. He states he has been following the orthopedics instructions to rest and elevate and continue to pump his calf muscle. Related Data Home Medications Medication Instructions Recorded Confirmed cholecalciferol (vitamin D3) 1,000 unit PO DAILY NS 11/11/12 07/01/19 multivitamin with minerals 1 ea PO DAILY NS 11/11/12 07/01/19 omeprazole [Prilosec] 40 mg PO DAILY tab-cap NS 11/11/12 07/01/19 temazepam 30 mg PO HS NS 11/11/12 07/01/19 aspirin [Aspir-81] 81 mg PO DAILY 02/20/14 07/01/19 Symbicort 2 puff INHALATION BID PRN inhaler 09/28/15 07/01/19 ascorbic acid (vitamin C) [Vitamin 500 mg PO DAILY 09/28/15 07/01/19 C] levothyroxine 25 mcg PO DAILY tab-cap 11/14/15 07/01/19 albuterol sulfate [ProAir HFA] 1 - 2 puff INHALATION Q6H PRN 12/22/15 07/01/19 inhaler bupropion HCl [Wellbutrin SR] 150 mg PO .SUPPER TIME tab-cap 04/28/18 07/01/19 terazosin 2 mg PO HS tab-cap 04/28/18 07/01/19 isosorbide dinitrate 30 mg PO DAILY 05/28/18 07/01/19 nitroglycerin 0.4 mg SUBLINGUAL ONCE 05/28/18 07/01/19 Effexor XR 75 mg capsule,extended 150 mg PO QPM tab-cap NS 03/09/19 07/01/19 release metoprolol succinate 25 mg 25 mg PO DAILY #90 tab 03/09/19 07/01/19 tablet,extended release 24 hr metronidazole 0.75 % topical cream 1 applic TOPICAL BID gm 03/09/19 07/01/19 atorvastatin 40 mg tablet 40 mg PO DAILY 04/13/19 07/01/19 fluticasone propionate [Flonase 50 mcg INTRANASAL 07/01/19 Allergy Relief] methylprednisolone [Medrol] 4 mg PO DAILY 07/01/19 07/01/19 venlafaxine [Effexor XR] 150 mg PO DAILY 07/01/19 07/01/19 Previous Rx's Medication Instructions Recorded metoprolol succinate 25 mg 25 mg PO DAILY #90 tab 03/09/19 tablet,extended release 24 hr Allergies Allergy/AdvReac Type Severity Reaction Status Date / Time lisinopril AdvReac Mild cough Verified 07/10/19 13:43 calcium AdvReac unknown Verified 07/10/19 13:43 General Stated Complaint: Orthopedic SHANEKA: 4 Review of Systems All systems reviewed & are unremarkable except as noted in HPI and below Constitutional Constitutional: Reports as per HPI, Denies chills and Denies fever(s) Eyes Eyes: Denies blurry vision ENT Ears, Nose, Mouth, and Throat: Denies dizziness, Denies sore throat and Denies throat swelling Cardiovascular Cardiovascular: Denies chest pain and Denies dyspnea Respiratory Respiratory: Denies cough and Denies dyspnea Gastrointestinal Gastrointestinal: Denies abdominal pain, Denies diarrhea and Denies vomiting Genitourinary Genitourinary: Denies hematuria and Denies dysuria Musculoskeletal Musculoskeletal: Denies back pain, Denies numbness and Reports other (Right leg pain) Integumentary/Breasts Skin/Breast: Denies lesions and Denies rash Neurologic Neurologic: Denies dizziness, Denies focal weakness and Denies numbness Allergic/Immunologic Allergic/Immunologic: Denies throat swelling [facility] Medical History Anxiety Complicated grief Depression Dyspnea Elevated hemidiaphragm Epistaxis GERD (gastroesophageal reflux disease) History of partial colectomy Hx of ventral hernia repair Hyperlipidemia Hypertension Hypothyroidism Insomnia Other osteoporosis with current pathological fracture, vertebra(e), subsequent encounter for fracture with routine healing Overweight Peripheral neuropathy Pharyngeal disorder Polyarthralgia Pulmonary hypertension Rheumatoid arthritis Rosacea Sicca syndrome Steroid-induced osteoporosis Surgical History Colectomy Colonoscopy - IV Sedation Hernia Repair, Incisional Stented coronary artery (Acute ~03/20/19) Social History Smoking/Tobacco Use Status: Never Alcohol Intake: never Drug use: Never Do you feel safe at home: Yes Do you feel safe in your relationship?: Yes Exam Const General: cooperative, healthy appearing and no acute distress HENMT Head: normal to inspection Mouth: oral mucosae normal Eyes General: appearance normal, both eyes and all related structures Neck Neck: normal visual inspection Resp Effort & Inspection: normal respiratory effort and able to speak in complete sentences Cardio Rate: regular rate Skin General skin exam: no rashes or lesions noted Neuro General: alert, awake and oriented x3 Motor: muscle tone normal throughout Sensory Exam: no sensory deficits noted Other: Normal plantar/dorsiflexion. Muscle strength 5/5 bilateral lower extremities. Extrem Upper/lower leg/hip images: 1. Healing ecchymosis in various stages of collar including purple to yellowish. There is no tenderness to palpation of this area. 2. Tenderness to palpation of right posterior knee and posterior calf. Induration of the posterior calf but remainder of compartments soft. There is no erythema or fluctuance. Other: There is scattered healing crusts to the right anterior mid leg without signs of overlying cellulitis. Right DP/PT pulses intact. Unable to fully extend right knee due to pain. Achilles tendon normal to palpation. Psych Appearance: grossly normal Affect: normal affect Course Vital Signs Vital signs: Vital Signs Temperature 98.8 F 07/10/19 13:41 Pulse 70 07/10/19 13:41 Respiratory Rate 18 07/10/19 13:41 Blood Pressure 175/65 H 07/10/19 13:41 Pulse Oximetry 98 07/10/19 13:41 Temperature 98.8 F 07/10/19 13:41 Temperature Source Temporal Artery Scan 07/10/19 13:41 Pulse 70 07/10/19 13:41 Respiratory Rate 18 07/10/19 13:41 Respiratory Effort Non-Labored 07/10/19 13:41 Blood Pressure 175/65 H 07/10/19 13:41 Blood Pressure Position Sitting 07/10/19 13:41 Pulse Oximetry 98 07/10/19 13:41 Oxygen Delivery Method Room Air 07/10/19 13:41 Oxygen Flow Rate 0 07/10/19 13:41 Pain Level 10 07/10/19 13:41
[2019-07-10 14:06] VITALS: BP 126/60; PULSE 60; O2SAT 94
== END 2019-07-10 14:25 | disposition home or self-care (01) ==
PROVIDERS: Emergency Provider Physician Assistant; PCP Family Medicine
DX: S86.111A Strain of other muscle(s) and tendon(s) of posterior muscle group at lower leg level, right leg, initial encounter (principal); S80.11XA Contusion of right lower leg, initial encounter; I10 Essential (primary) hypertension; X58.XXXA Exposure to other specified factors, initial encounter
CPT/HCPCS: 99282; E0114

== ENCOUNTER → 2019-07-14 10:59 | Outpatient (BNVA) | payer MEDICARE, SELFPAY | PROVIDERS: PCP Family Medicine; Referring Provider Family Medicine; Visit Provider Student in an Organized Health Care Education/Training Program | DX: S80.11XD Contusion of right lower leg, subsequent encounter (principal); S86.811D Strain of other muscle(s) and tendon(s) at lower leg level, right leg, subsequent encounter; X58.XXXD Exposure to other specified factors, subsequent encounter; I10 Essential (primary) hypertension | CPT/HCPCS: 99214 ==

== ENCOUNTER → 2019-12-10 10:52 | Outpatient (BNVA) | payer MEDICARE, SELFPAY | PROVIDERS: PCP Family Medicine; Referring Provider Family Medicine; Visit Provider Internal Medicine Cardiovascular Disease | DX: I25.10 Atherosclerotic heart disease of native coronary artery without angina pectoris (principal); R06.02 Shortness of breath; I42.9 Cardiomyopathy, unspecified | CPT/HCPCS: 99204; 99443 ==

== ENCOUNTER 2020-03-01 12:31 | Outpatient (REF) | payer MEDICARE, SELFPAY ==
[2020-03-01 19:28] LABS: HGB 16.5 g/dL (13.5-17.5); Mean Corpuscular Hemoglobin 29.6 pg (27.0-33.0); Mean Corpuscular Volume 89.8 fL (80-95); Mean Platelet Volume 10.4 fL (8.0-11.0); Platelet Count 257 x1000/uL (130-400); RBC 5.57 m/cumm (4.50-6.00); RBC Distribution Width 14.9 % (11.8-14.1); White Blood Cell Count 6.14 k/cumm (4.4-10.8)
[2020-03-01 19:59] LABS: ALT 27 U/L (16-63); AST 23 U/L (15-37); Albumin 3.7 g/dL (3.4-5.0); Alkaline Phosphatase 96 U/L (46-116); Anion Gap 6.3 mmol/L (3-11); BUN 17 mg/dL (7-18); Bilirubin, Total 0.3 mg/dL (0.2-1.0); C-Reactive Protein 0.19 mg/dL (0.0-0.3); CO2 29.7 mmol/L (21.0-32.0); Calcium 8.9 mg/dL (8.5-10.1); Chloride 103 mmol/L (98-107); Estimated GFR 59.68 (mL/min/1.73m2); Glucose 112 mg/dL (74-106); Magnesium 2.2 mg/dL (1.8-2.4); Potassium 4.6 mmol/L (3.5-5.1); Sodium 139 mmol/L (136-145); Total Protein 6.4 g/dL (6.4-8.2)
[2020-03-01 20:24] LABS: Hemoglobin A1C 5.8 % (3.8-5.6)
[2020-03-01 20:46] LABS: ESR 5 mm/hr (1-20)
[2020-03-01 22:13] LABS: FREE T4 0.76 ng/dL (0.76-1.46)
== END 2020-03-01 12:51 ==
LOC: NCHCN 12:31
PROVIDERS: PCP Family Medicine; Visit Provider Family Medicine
DX: E78.5 Hyperlipidemia, unspecified (principal); I10 Essential (primary) hypertension; E03.9 Hypothyroidism, unspecified; M06.9 Rheumatoid arthritis, unspecified; I25.10 Atherosclerotic heart disease of native coronary artery without angina pectoris; R73.09 Other abnormal glucose; M25.50 Pain in unspecified joint
CPT/HCPCS: 80053; 85027; 85652; 83036; 83735; 84439; 84443; 86140

== ENCOUNTER 2020-03-08 00:29 | Outpatient (CLI) | payer MEDICARE, SELFPAY ==
--- NOTE | 2020-03-08 06:30 | DI.NM_ITS ---
APPROVED REPORT Exam: Pharmacologic Patient Location: Out-Patient Room/Bed: Stress Nurse: Abril Ford RN BMI: 27.80 Baseline Rhythm: Sinus Rhythm Medical History Medical History: CAD s/p stent, Depression, GERD, HTN Cardiac Medications: Isosorbide mononitrate. Metoprolol Tartrate. Nitrostat SL. Synthroid. Atorvastat in. Aspirin. Allergies: Lisinopril. Calcium. Cardiac Risk Factors: HTN, Hyperlipidemia, FHX of CAD, Asthma Previous Cardiac Procedures: PCI Pretest Chest Pain Characteristics: Dyspnea Exercise History: Indeterminate Physical Disabilities: Knees Lung Sounds: Clear to auscultation Heart Sounds: Regular Stress Test Details Test: Pharmacologic stress testing performed using 0.4 mg of regadenoson per 5 mL given IV over 10 s econds. Nuclear Acquisition: Rest Tc-99m/Stress Tc-99m 1 day Rest Isotope: Tc-99m Sestamibi. Dose: 10.8 Date: 03/08/2020 Injection Time: 0840 Stress Isotope: Tc-99m Sestamibi. Dose: 32.5 Date: 03/08/2020 Injection Time: 1015 HR Resting HR Supine: 70 bpm Max Heart Rate (APMHR): 149 bpm Target HR (85% APMHR): 126 bpm Max HR Achieved: 96 bpm % of APMHR: 64 Recovery HR: 86 bpm HR response to stress: Normal HR response to stress BP Resting BP Supine: 174/80 mmHg Max BP: 174/80 mmHg Recovery BP: 156/78 mmHg BP response to stress: Normal blood pressure response to stress. ECG Resting ECG: Sinus Rhythm Stress ECG: Sinus Rhythm ST Change: None Arrhythmia: None Recovery ECG: Sinus Rhythm Clinical Stress Symptoms: No significant symptoms post lexiscan injection. Stress ECG Conclusion 1. The resting electrocardiogram shows poor R wave progression, possible anterior wall myocardial inf arction 2. This was a pharmacologic myocardial perfusion imaging study. Blunted heart rate and blood pressur e response to stress 3. The patient achieved 64% of predicted heart rate for age. There were no electrocardiographic wahl ges. Electrocardiographically the test was nondiagnostic due to inadequate heart rate 4. There were no significant dysrhythmias Stress Test Summary STAGE HR BP Symptoms NOTES Supine 70 174/80 1 min post Lexiscan injection 96 164/72 3 min post Lexiscan injection 90 166/70 6 min post Lexiscan injection 86 156/78 MPI Conclusion There is a moderate sized fixed inferior wall defect consistent with infarction Anterior wall perfusion appears normal suggesting that the known LAD stent is patent There is no significant myocardial ischemia seen Calculated EF is 48% Radiologist Interpretation Radiologist agrees with Printing Table Hand's Interpretation. Radiologist Interpretation by: Radha Mayen MD Interpretation Date/Time: 03/09/2020 08:47:16
--- NOTE | 2020-03-08 07:31 | DI.US_ITS ---
APPROVED REPORT EXAM: Comprehensive 2D, Doppler, and color-flow Echocardiogram Patient Location: Out-Patient Event Promotions Coordinator: Kelly Jaramillo RDCS (AE) Indications: Shortness of Breath Other Information Study Quality: Adequate Conclusion Normal left ventricular wall thickness and chamber size. There is global hypokinesis. Estimated eje ction fraction is 40 to 45% There is no chamber enlargement Aortic valve is trileaflet and sclerotic. There is no aortic stenosis or regurgitation Trace physiologic mitral, tricuspid, and pulmonic regurgitation Right ventricular size and function is normal. Estimated right ventricular systolic pressure is norm al at 21 mmHg Wall motion Left Ventricle The left ventricle is normal size. Left ventricular systolic function is mildly decreased. There is n ormal left ventricular wall thickness. There is global hypokinesis of the left ventricle. There is no ventricular septal defect visualized. LVEF is 40%-45%. Right Ventricle The right ventricle is normal size. The right ventricular systolic function is normal. The RVSP is 20 .7 mmHg. Atria The left atrium size is normal. The right atrium size is normal. The interatrial septum is intact wit h no evidence for an atrial septal defect. Aortic Valve The Aortic valve is sclerotic. Aortic valve is thickened but has adequate excursion. Aortic valve is trileaflet. There is no aortic valvular stenosis. No aortic regurgitation is present. Mitral Valve Mild mitral annular calcification. No evidence of mitral valve stenosis. Trace mitral regurgitation. Tricuspid Valve The tricuspid valve is normal in structure. There is no tricuspid valve stenosis. Trace tricuspid reg urgitation. Pulmonic Valve The pulmonary valve is normal in structure. There is no pulmonic valvular stenosis. Trace pulmonic re gurgitation. Great Vessels The aortic root is normal in size. The ascending aorta is mildly dilated. Aortic arch is normal in ca liber. IVC is normal in size and collapses >50% with inspiration. Pericardium There is no pericardial effusion. 2D Dimensions IVSD d PLAX 0.96 cm M: 0.6-1.2 LV Vol A2C d MOD 96.7 mL LVPW d PLAX 0.98 cm M: 0.6 - 1.2 LV Vol A4C d MOD 93.4 mL LVID d PLAX 4.54 cm M: 4.2 - 5.8 LA vol/ BSA A2C s A-L 22.4 mL/m2 LVDs 3.55 cm M: 2.5 - 4.0 LA vol/ BSA A4C s A-L 17.4 mL/m2 Ao Root d 2.71 cm M: 3.1 - 3.7 LA Vol/ BSA Biplane s A-L 20.0 mL/m2 RA Area A4C 13.02 cm2 LA Area A4C s MOD 15.16 cm2 RA Vol/ BSA A4C s A-L 13.9 mL/m2 LA Area A2C s MOD 17.49 cm2 Ao Asc Diam d 3.52 cm M: 2.6 - 3.4 LV EF A4C MOD 40.6 % LV EF Teichholz 42.7 % LV EF A2C MOD 40.4 % LVEF (Montano's) 40.12 % M: 52 - 72 LV EF Biplane MOD 40.1 % LV Volume 71.01 mL M: 62 - 150 SV 38.90 mL LV Volume Index 33.02 mL/m2 M: 34 - 74 SV Index 18.07 mL/m2 LV Vol Biplane MOD 97.0 mL FS 20.90 % M-Mode TAPSE 2.41 cm (M/F) >1.7 LV Diastology MV E' medial 0.056 (>0.07 m/s) E/A Ratio 0.7 LV E/e MED 8.65 (<14) MV E Vmax 0.48 (0.4-1.3 m/s) MV E' lateral 0.064 (>0.1 m/s) MV A Vmax 0.65 (0.4-1.3 m/s) LV E/e LAT 7.55 (<14) MV E/A Ratio 0.72 MV E/E' medial 8.66 MV E/E' lateral 7.60 Aortic Valve LVOT Area 4.09 cm2 AoV Area Vmax 2.85 cm2 LVOT Vmax 0.75 m/s AoV Area/ BSA (Vmax) 1.32 cm2/m2 LVOT Mean Jamel. 0.53 m/s VALDEMAR Mean Jamel. 2.43 cm2 LVOT Peak Grad 2.2 mmHg VALDEMAR Mean Jamel. Index 1.13 cm2/m2 LVOT Mean Grad 1.3 mmHg LVOT VTI 0.175 m LVOT Diam s 2.25 cm AoV Vmax 1.08 m/s Velocity Ratio 0.69 AoV Mean Jamel. 0.89 m/s AoV Peak Grad 4.6 mmHg LVOT SV 71.41 mL AoV Mean Grad 3.2 mmHg AoV VTI 0.268 m AoV Area VTI 2.66 cm2 AoV Area/ BSA (VTI) 1.24 cm/m2 Mitral Valve MV DT 387 (160-240 msec) MV PHT 112 msec MV Area PHT 1.96 cm2 Pulmonary Valve PV Vmax 0.90 (0.5-1.5 m/s) RVOT Peak Gr. 1.55 mmHg PV Peak Grad 3.3 mmHg RVOT Mean Gr. 0.80 mmHg PV Mean Grad 2.0 mmHg RVOT VTI 0.131 m PV VTI 0.186 m RVOT Vmax 0.62 m/s Tricuspid Valve TR Peak Grad 17.6 mmHg TR Vmax 2.10 m/s RA Pressure 3.00 mmHg RVSP (TR) 20.7 mmHg
[2020-03-08] MEDS: Regadenoson 0.4 MG/5 ML SYR IVP (10:13)
== END 2020-03-08 00:49 ==
PROVIDERS: PCP Family Medicine; Visit Provider Internal Medicine Cardiovascular Disease
DX: I25.10 Atherosclerotic heart disease of native coronary artery without angina pectoris (principal); I10 Essential (primary) hypertension; R06.02 Shortness of breath; K21.9 Gastro-esophageal reflux disease without esophagitis; E78.5 Hyperlipidemia, unspecified
CPT/HCPCS: 78452; 93016; 93018; 93306; 93017; J2785

== ENCOUNTER → 2020-03-24 11:35 | Outpatient (BNVA) | payer MEDICARE, SELFPAY | PROVIDERS: PCP Family Medicine; Referring Provider Family Medicine; Visit Provider Internal Medicine Cardiovascular Disease | DX: I25.10 Atherosclerotic heart disease of native coronary artery without angina pectoris (principal); R06.02 Shortness of breath; I42.8 Other cardiomyopathies; I10 Essential (primary) hypertension; Z95.818 Presence of other cardiac implants and grafts | CPT/HCPCS: 99214 ==

== ENCOUNTER 2020-04-27 01:40 | Outpatient (RCR) | payer MEDICARE, SELFPAY ==
[2020-04-27] MEDS: Normal Saline Flush 10 ML SYR IVP (09:57)
[2020-04-27] MEDS: ABATACEPT 750 MG in Normal Saline 100 ML 200 MG IVPB (09:57)
== END 2020-05-02 23:59 | disposition home or self-care (01) ==
LOC: INF 01:40
PROVIDERS: PCP Family Medicine; Visit Provider Nurse Practitioner Acute Care
DX: M05.9 Rheumatoid arthritis with rheumatoid factor, unspecified (principal)
CPT/HCPCS: 96365; J0129

== ENCOUNTER 2020-05-25 01:46 | Outpatient (RCR) | payer MEDICARE, SELFPAY ==
[2020-05-11] MEDS: Normal Saline Flush 10 ML SYR IVP (09:36)
[2020-05-11] MEDS: ABATACEPT 750 MG in Normal Saline 100 ML 200 MG IVPB (09:36)
[2020-05-25] MEDS: ABATACEPT 750 MG in Normal Saline 100 ML 200 MG IVPB (09:41)
[2020-05-25] MEDS: Normal Saline Flush 10 ML SYR IVP (09:41)
== END 2020-06-01 23:59 | disposition home or self-care (01) ==
LOC: INF 01:46
PROVIDERS: PCP Family Medicine; Visit Provider Nurse Practitioner Acute Care
DX: M05.80 Other rheumatoid arthritis with rheumatoid factor of unspecified site (principal)
CPT/HCPCS: 96365; J0129

== ENCOUNTER 2020-05-26 12:45 | Outpatient (REF) | payer MEDICARE, SELFPAY ==
[2020-07-22 16:54] LABS: Specimen Description Sputum
== END 2020-05-26 13:05 ==
LOC: LBN 12:45
PROVIDERS: PCP Family Medicine; Visit Provider Internal Medicine Pulmonary Disease
DX: R06.09 Other forms of dyspnea (principal); J98.6 Disorders of diaphragm
CPT/HCPCS: 87077; 87116; 87206; 87070; 87186; 87205

== ENCOUNTER 2020-06-22 01:09 | Outpatient (RCR) | payer MEDICARE, SELFPAY ==
[2020-06-22] MEDS: ABATACEPT 750 MG in Normal Saline 100 ML 200 MG IVPB (10:53)
[2020-06-22] MEDS: Normal Saline Flush 10 ML SYR IVP (10:53)
== END 2020-07-02 23:59 | disposition home or self-care (01) ==
LOC: INF 01:09
PROVIDERS: PCP Family Medicine; Visit Provider Nurse Practitioner Acute Care
DX: M05.9 Rheumatoid arthritis with rheumatoid factor, unspecified (principal)
CPT/HCPCS: 96365; J0129

== ENCOUNTER 2020-07-20 09:00 | Outpatient (RCR) | payer MEDICARE, SELFPAY ==
[2020-07-20 09:41] LABS: Hemoglobin A1C 5.7 % (<5.7)
[2020-07-20 09:44] LABS: TSH (W/Ref FT4) 4.03 uIU/mL (0.36-3.74)
[2020-07-20] MEDS: Normal Saline Flush 10 ML SYR IVP (09:48)
[2020-07-20] MEDS: ABATACEPT 750 MG in Normal Saline 100 ML 200 MG IVPB (09:48)
[2020-07-20 10:09] LABS: FREE T4 0.78 ng/dL (0.76-1.46)
== END 2020-08-01 23:59 | disposition home or self-care (01) ==
LOC: INF 09:00
PROVIDERS: PCP Family Medicine; Visit Provider Nurse Practitioner Acute Care
DX: M05.9 Rheumatoid arthritis with rheumatoid factor, unspecified (principal); R73.03 Prediabetes; E03.9 Hypothyroidism, unspecified
CPT/HCPCS: 36415; 96365; 83036; 84439; 84443; J0129

== ENCOUNTER 2020-08-17 01:14 | Outpatient (RCR) | payer MEDICARE, SELFPAY ==
[2020-08-17] MEDS: ABATACEPT 750 MG in Normal Saline 100 ML 200 MG IVPB (10:00)
[2020-08-17] MEDS: Normal Saline Flush 10 ML SYR IVP (10:00)
== END 2020-09-01 23:59 | disposition home or self-care (01) ==
LOC: INF 01:14
PROVIDERS: PCP Family Medicine; Visit Provider Nurse Practitioner Acute Care
DX: M05.9 Rheumatoid arthritis with rheumatoid factor, unspecified (principal); E03.9 Hypothyroidism, unspecified; R73.03 Prediabetes
CPT/HCPCS: 96365; J0129

== ENCOUNTER 2020-09-14 04:12 | Outpatient (RCR) | payer MEDICARE, SELFPAY ==
[2020-09-14] MEDS: ABATACEPT 750 MG in Normal Saline 100 ML 200 MG IVPB (10:49)
[2020-09-14] MEDS: Normal Saline Flush 10 ML SYR IVP (10:50)
== END 2020-10-02 23:59 | disposition home or self-care (01) ==
LOC: INF 04:12
PROVIDERS: PCP Family Medicine; Visit Provider Nurse Practitioner Acute Care
DX: M05.7A Rheumatoid arthritis with rheumatoid factor of other specified site without organ or systems involvement (principal)
CPT/HCPCS: 96365; J0129

== ENCOUNTER → 2020-09-27 11:01 | Outpatient (BNVA) | payer MEDICARE, SELFPAY | PROVIDERS: PCP Family Medicine; Referring Provider Family Medicine; Visit Provider Internal Medicine Cardiovascular Disease | DX: R06.02 Shortness of breath (principal); I25.810 Atherosclerosis of coronary artery bypass graft(s) without angina pectoris; I42.9 Cardiomyopathy, unspecified; R06.2 Wheezing; Z95.818 Presence of other cardiac implants and grafts | CPT/HCPCS: 99214 ==

== ENCOUNTER 2020-10-12 02:39 | Outpatient (RCR) | payer MEDICARE, SELFPAY ==
[2020-10-12] MEDS: Normal Saline Flush 10 ML SYR IVP (10:34)
[2020-10-12] MEDS: ABATACEPT 750 MG in Normal Saline 100 ML 200 MG IVPB (11:07)
== END 2020-10-30 23:59 | disposition home or self-care (01) ==
LOC: INF 02:39
PROVIDERS: PCP Family Medicine; Visit Provider Nurse Practitioner Acute Care
DX: E03.9 Hypothyroidism, unspecified (principal); R73.03 Prediabetes; M05.7A Rheumatoid arthritis with rheumatoid factor of other specified site without organ or systems involvement
CPT/HCPCS: 96365; J0129

== ENCOUNTER 2020-11-09 03:10 | Outpatient (RCR) | payer MEDICARE, SELFPAY ==
[2020-11-09] MEDS: ABATACEPT 750 MG in Normal Saline 100 ML 200 MG IVPB (11:11)
[2020-11-09] MEDS: Normal Saline Flush 10 ML SYR IVP (11:11)
== END 2020-11-30 23:59 | disposition home or self-care (01) ==
LOC: INF 03:10
PROVIDERS: PCP Family Medicine; Visit Provider Nurse Practitioner Acute Care
DX: M05.7A Rheumatoid arthritis with rheumatoid factor of other specified site without organ or systems involvement (principal); E03.9 Hypothyroidism, unspecified; R73.03 Prediabetes
CPT/HCPCS: 96365; J0129

== ENCOUNTER 2020-12-07 02:18 | Outpatient (RCR) | payer MEDICARE, SELFPAY ==
[2020-12-07] MEDS: Normal Saline Flush 10 ML SYR IVP (11:01)
[2020-12-07] MEDS: ABATACEPT 750 MG in Normal Saline 100 ML 200 MG IVPB (11:01)
== END 2020-12-30 23:59 | disposition home or self-care (01) ==
LOC: INF 02:18
PROVIDERS: PCP Family Medicine; Visit Provider Nurse Practitioner Acute Care
DX: E03.9 Hypothyroidism, unspecified (principal); R73.03 Prediabetes; M05.7A Rheumatoid arthritis with rheumatoid factor of other specified site without organ or systems involvement
CPT/HCPCS: 96365; J0129

== ENCOUNTER 2021-03-07 09:08 | Emergency (ER) | payer MEDICARE, SELFPAY ==
[2021-03-07] VITALS (19 sets, daily range): BP systolic 149–162; BP diastolic 80–96; PULSE 54–68; RESP 14–22; TEMP 36.3–36.8; O2SAT 96–98
--- NOTE | 2021-03-07 09:10 | W.ED.GENAD ---
Discharge Plan Disposition Patient Disposition: HOME Condition: Improving Discharge Details Clinical Impression: Ureterolithiasis Primary Care Provider: Arelis Michele V ED Provider: Chayito Jameson Home Meds and New Rx's Prescriptions: New ondansetron 4 mg tablet,disintegrating 4 mg PO TID PRN (Reason: nausea and vomiting) Qty: 6 RF: 0 oxycodone 5 mg tablet 5 mg PO Q6H PRN (Reason: pain) Qty: 10 RF: 0 Continued venlafaxine 75 mg capsule,extended release 24hr 75 mg PO DAILY RF: 0 bupropion HCl [Wellbutrin SR] 150 mg tablet sustained-release 12 hr 150 mg PO QAM RF: 0 atorvastatin 10 mg tablet 10 mg PO DAILY RF: 0 levothyroxine [Synthroid] 50 mcg tablet 50 mcg PO DAILY RF: 0 isosorbide mononitrate 30 mg tablet extended release 24 hr 30 mg PO DAILY RF: 0 diclofenac sodium 3 % gel 1 applic TP TID PRNRF: 0 omeprazole [Prilosec] 40 MG capsule,delayed release(DR/EC) 40 mg PO DAILY RF: 0 temazepam 30 MG capsule 30 mg PO HS RF: 0 multivitamin with minerals 1 EACH tablet 1 ea PO DAILY RF: 0 cholecalciferol (vitamin D3) 1,000 UNIT tablet 1,000 unit PO DAILY RF: 0 ascorbic acid (vitamin C) [Vitamin C] 500 MG tablet 500 mg PO DAILY RF: 0 budesonide-formoterol [Symbicort] 10.2 GM HFA aerosol inhaler 2 puff Inhalation BID PRNRF: 0 albuterol sulfate [ProAir HFA] 8.5 GM HFA aerosol inhaler 1 - 2 puff Inhalation Q6H PRN RF: 0 terazosin 2 MG capsule 2 mg PO HS RF: 0 aspirin [Aspir-81] 81 MG tablet,delayed release (DR/EC) 81 mg PO DAILY RF: 0 nitroglycerin 0.4 mg Tablet, Sublingual 0.4 mg SUBLINGUAL ONCE RF: 0 venlafaxine [Effexor XR] 150 mg Capsule,Extended Release 24hr 150 mg PO DAILY RF: 0 fluticasone propionate [Flonase Allergy Relief] 50 mcg/actuation spray,suspension 50 mcg INTRANASAL DAILY RF: 0 No Action prednisone 10 mg tablet 10 mg PO DIRECTED RF: 0 metoprolol succinate 25 mg tablet extended release 24 hr 25 mg PO HS RF: 0 Discharge Instructions Instructions: Kidney Stones (ED), How to Strain Your Urine (ED) Additional Instructions: Drink plenty of fluids and get plenty of rest. Alternate tylenol and motrin as needed and directed for pain. Take the oxycodone for pain not relieved with Tylenol or Motrin. Hold your aspirin for now until your follow up with Dr. Lee. Follow-up with Dr. Lee regarding possible plan for stent placement this at the hospital. Return immediately to the emergency department if you develop any worsening or new concerning symptoms. Referrals: Les Lee MD [ [facility] STAFF PHYSICIAN] - Discharge Data Discharge Date/Time-TO BE ENTERED AT DEPARTURE: 03/07/21 13:57 Discharge Physician: Chayito Jameson Medical Decision Making 70-year-old man with a history of coronary artery disease on aspirin, GERD, kidney stones approximately 12 years ago presents with left flank pain since 4 and this morning consistent with previous kidney stone. Denies any fever, vomiting or urinary symptoms. No cauda equina symptoms. Patient appears nontoxic and relatively comfortable. His vitals are within normal limits. His abdomen is soft and nontender. No CVA tenderness. Neurovascularly intact to lower extremities and no focal deficits. Will obtain screening labs, urinalysis and CT renal colic to rule out stone. Will give a dose of Toradol and IV fluids and reassess. Patient reassessed and he states his pain slightly improved but is now returning. Will give a dose of morphine. Labs and imaging reviewed. Normal white blood cell count. Creatinine 1.4, GFR 49. Urinalysis notes large blood and 5-10 WBCs with rare bacteria and negative leukocyte esterase and negative nitrites. CT notes a 1.3 5.7 cm left UVJ stone. Case discussed with Dr. Lee -- if patient's pain improved, will plan for discharge to home, holding his aspirin with likely plan for stent placement on Dr. Lee surgery day on . Patient reassessed and he feels that he could be discharged to home. He was given morphine approximately 90 minutes ago and does not have a ride home. Will hold here a bit longer for continued observation and then ambulate and if patient still feels well will discharge to home. Patient observed for approximately 3-1/2 hours and states his pain is significantly improved. He was ambulated and denied any complaint of dizziness and appears in no acute distress. Patient feels comfortable with discharge home. Prescription sent electronically to his pharmacy. Anesthesia evaluated patient here in the ED regarding plan for stent placement on with Dr. Lee. Pt placed on Dr. Lee's list. Medical Records Medical records reviewed: Yes I reviewed the patient's medical records. Imaging Data Radiologic Study: Radiologist's impression: CT RENAL COLIC WO CLINICAL HISTORY: L flank pain, r/o kidney stone. TECHNIQUE: Imaging Protocol: Axial computed tomography images with coronal and sagittal reformatted images were created and reviewed. COMPARISON: CT CHEST HIGH RESOLUTION from 01/10/2015 FINDINGS: ABDOMEN: Lung Bases: There is scarring in the right lung base. Moderate coronary artery calcification. Small hiatal hernia. Liver: Normal density. No measurable mass. Gallbladder and biliary tract: No radiodense calculus or biliary ductal dilation. Pancreas: Fatty atrophy. No abnormal calcification or inflammatory process. Spleen: Normal. Kidneys: Normal size, contour and axis.2 mm nonobstructing stones in the midpole and the lower pole of the right kidney. Left renal cysts. There is a 1.3 x 0.7 cm stone at the left UVJ causing [id number] hydronephrosis. Adrenal glands: No mass is seen. Lymph nodes: Within normal limits. Abdominal Aorta: Abdominal portion non-dilated. Atherosclerosis. PELVIS: Bladder:Symmetric distention. Multiple bladder diverticuli. Bowel: No obstruction or bowel wall thickening. No evidence of appendicitis. Peritoneal cavity: No ascites, collection or mesenteric inflammatory response. No free air. Reproductive organs: Enlarged prostate gland. Bones: Multilevel degenerative changes. Old L1 compression deformity. Soft Tissues: Bilateral fat containing inguinal hernia. There is a small unremarkable loop of bowel involved with the right inguinal hernia. IMPRESSION: 1.3 x 0.7 cm left UVJ stone causing [id number] hydronephrosis. Lab Data Lab results reviewed: Yes I reviewed the patient's lab results. Labs: 03/07/21 09:10 Urine - Reflex from Ua Urine Culture - Pending Laboratory Tests Range/Units 03/07/21 03/07/21 03/07/21 09:10 09:38 09:38 WBC (4.4-10.8) 10^3/uL 10.48 RBC (4.36-5.78) 10^6/uL 5.08 Hgb (13.5-17.5) g/dL 15.6 Hct (40.0-50.0) % 47.5 MCV (80-95) fL 93.5 MCH (27.0-33.0) pg 30.7 MCHC (32.0-36.0) % 32.8 RDW (11.8-14.1) % 13.8 Plt Count (130-400) 10^3/uL 215 MPV (8.0-11.0) fL 9.6 Immature Gran % 0.3 Neutrophils % 69.8 Lymphocytes % 19.8 Monocytes % 6.6 Eosinophils % 3.0 Basophils % 0.5 Nucleated RBC % % 0 Absolute Neutrophils (1.2-6.7) 10^3/uL 7.33 H Absolute Lymphocytes (1.2-3.4) 10^3/uL 2.07 Absolute Monocytes (0.1-0.8) 10^3/uL 0.69 Absolute Eosinophils (0.0-0.7) 10^3/uL 0.31 Absolute Basophils (0.0-0.2) 10^3/uL 0.05 Sodium (136-145) mmol/L 143 Potassium (3.5-5.1) mmol/L 3.6 Chloride (98-107) mmol/L 106 Carbon Dioxide (21.0-32.0) mmol/L 28.1 Anion Gap (3-11) mmol/L 8.9 BUN (7-18) mg/dL 26 H Creatinine (0.70-1.30) mg/dL 1.4 H Estimated GFR/1.73 m2 (mL/min/1.73m2) 49.82 Glucose (74-106) mg/dL 131 H Calcium (8.5-10.1) mg/dL 8.5 Total Bilirubin (0.2-1.0) mg/dL 0.4 AST (15-37) U/L 19 ALT (16-63) U/L 28 Alkaline Phosphatase (46-116) U/L 84 Total Protein (6.4-8.2) g/dL 6.2 L Albumin (3.4-5.0) g/dL 3.3 L Urine Color (Yellow) Yellow Urine Clarity (Clear) Cloudy Urine pH (5-8) 6.0 Ur Specific B[place]orn (1.005-1.025) >= 1.030 H Urine Protein (Negative) mg/dL 30 H Urine Ketones (Negative) mg/dL Negative Urine Blood (Negative) Large H Urine Nitrite (Negative) Negative Urine Bilirubin (Negative) Negative Urine Urobilinogen (Up TO 0.2) EU/dL 0.2 Ur Leukocyte Esterase (Negative) Negative Urine RBC (0-2) HPF >50 H Urine WBC (0-5) HPF 5-10 Ur Epithelial Cells (Negative) HPF Few Urine Crystals (Negative) HPF Negative Urine Bacteria (Negative) HPF Rare Urine Casts (Negative) LPF Negative Urine Mucus (Negative) Trace Ur Culture Indicated? Yes Urine Glucose (Negative) mg/dL Negative HPI General Mode of arrival: ambulatory. Date/Time Provider Initiated Documentation: 03/07/21 09:09. Limitations to Documentation: no limitations. Information obtained by: patient. HPI Narrative: Patient is a 70-year-old male with a history of coronary artery disease on aspirin, asthma, cardiomyopathy, GERD and previous history of kidney stones presents to the ED with complaint of left flank pain since 4am this morning. Patient states the pain feels consistent with his previous kidney stone. He took Tylenol at 5 AM without relief. He denies any fever, nausea, vomiting, urinary symptoms, saddle anesthesia, bowel or bladder incontinence, leg pain weakness or numbness. Related Data Home Medications Medication Instructions Recorded Confirmed cholecalciferol (vitamin D3) 1,000 unit PO DAILY NS 11/11/12 03/07/21 multivitamin with minerals 1 ea PO DAILY NS 11/11/12 03/07/21 omeprazole [Prilosec] 40 mg PO DAILY tab-cap NS 11/11/12 03/07/21 temazepam 30 mg PO HS NS 11/11/12 03/07/21 aspirin [Aspir-81] 81 mg PO DAILY 02/20/14 03/07/21 ascorbic acid (vitamin C) [Vitamin 500 mg PO DAILY 09/28/15 03/07/21 C] budesonide-formoterol [Symbicort] 2 puff INHALATION BID PRN inhaler 09/28/15 03/07/21 albuterol sulfate [ProAir HFA] 1 - 2 puff INHALATION Q6H PRN 12/22/15 03/07/21 inhaler terazosin 2 mg PO HS tab-cap 04/28/18 03/07/21 nitroglycerin 0.4 mg SUBLINGUAL ONCE 05/28/18 03/07/21 venlafaxine [Effexor XR] 150 mg PO DAILY 07/01/19 03/07/21 atorvastatin 10 mg tablet 10 mg PO DAILY 12/08/19 03/07/21 bupropion HCl 150 mg tablet,12 hr 150 mg PO QAM 12/08/19 03/07/21 sustained-release diclofenac sodium 3 % topical gel 1 applic TP TID PRN gm 12/08/19 03/07/21 isosorbide mononitrate 30 mg 30 mg PO DAILY 12/08/19 03/07/21 tablet,extended release 24 hr levothyroxine 50 mcg tablet 50 mcg PO DAILY 12/08/19 03/07/21 venlafaxine 75 mg capsule,extended 75 mg PO DAILY 12/08/19 03/07/21 release 24 hr fluticasone propionate 50 50 mcg INTRANASAL DAILY 12/10/19 03/07/21 mcg/actuation nasal spray,suspension metoprolol succinate 25 mg PO HS 03/07/21 03/07/21 ondansetron 4 mg PO TID PRN #6 tab 03/07/21 03/07/21 oxycodone 5 mg PO Q6H PRN #10 tab 03/07/21 03/07/21 prednisone 10 mg PO DIRECTED 03/07/21 03/07/21 Previous Rx's Medication Instructions Recorded ondansetron 4 mg PO TID PRN #6 tab 03/07/21 oxycodone 5 mg PO Q6H PRN #10 tab 03/07/21 Allergies Allergy/AdvReac Type Severity Reaction Status Date / Time lisinopril AdvReac Mild cough Verified 03/07/21 15:45 calcium AdvReac unknown Verified 03/07/21 15:45 General SHANEKA: 4 Review of Systems All systems reviewed & are unremarkable except as noted in HPI and below Constitutional Constitutional: Reports as per HPI, Denies chills and Denies fever(s) Eyes Eyes: Denies blurry vision ENT Ears, Nose, Mouth, and Throat: Denies dizziness, Denies sore throat and Denies throat swelling Cardiovascular Cardiovascular: Denies chest pain and Denies dyspnea Respiratory Respiratory: Denies cough and Denies dyspnea Gastrointestinal Gastrointestinal: Denies abdominal pain, Denies diarrhea and Denies vomiting Genitourinary Genitourinary: Denies hematuria and Denies dysuria Musculoskeletal Musculoskeletal: Reports back pain and Denies numbness Integumentary/Breasts Skin/Breast: Denies lesions and Denies rash Neurologic Neurologic: Denies dizziness, Denies localized weakness and Denies numbness Allergic/Immunologic Allergic/Immunologic: Denies throat swelling [facility] Medical History Anxiety Asthma, intermittent BPH (benign prostatic hyperplasia) Cardiomyopathy Chest pain Complicated grief Depression Dysphagia Dyspnea Elevated hemidiaphragm Epistaxis GERD (gastroesophageal reflux disease) History of partial colectomy Hx of ventral hernia repair Hyperlipidemia Hypertension Hypothyroidism Insomnia Melena Nocturnal cough Other osteoporosis with current pathological fracture, vertebra(e), subsequent encounter for fracture with routine healing Overweight Peripheral neuropathy Pharyngeal disorder Polyarthralgia Pulmonary hypertension Rheumatoid arthritis Rosacea Sicca syndrome SOB (shortness of breath) Steroid-induced osteoporosis Strain of calf muscle (06/30/19) Wheezing Surgical History Colectomy Colonoscopy - IV Sedation Hernia Repair, Incisional Stented coronary artery (~03/20/19) Social History Smoking/Tobacco Use Status: Never Smoking risk assessment performed?: Yes Alcohol Intake: never Drug use: Never Substance use type: does not use What type of physical activity do you participate in: none Do you feel safe at home: Yes Do you feel safe in your relationship?: Yes Exam Const General: cooperative and no acute distress [facility] Head: normal to inspection Face and sinus: normal facial exam Eyes General: appearance normal, both eyes and all related structures EOM: EOM intact bilaterally Neck Neck: normal visual inspection and No submandibular swelling Lymphatic: no lymphadenopathy noted Chest Chest: normal inspection of the chest and no tenderness Resp Effort & Inspection: normal respiratory effort and able to speak in complete sentences Auscultation: clear to auscultation bilaterally Cardio Rate: regular rate Rhythm: regular rhythm GI Inspection: normal to inspection Palpation: soft, not firm, not rigid and nontender Auscultation: normal bowel sounds Back/Spine/Pelvis Back: no CVA tenderness Thoracic/Lumbar Spine: thoracic and lumbar spine normal to inspection Skin General skin exam: no rashes or lesions noted Neuro General: patient alert, patient awake and patient oriented x3 Cognition: normal cognition Speech: speech normal Motor: muscle tone normal throughout and strength 5/5 throughout Sensory Exam: no sensory deficits noted DTR's: Rt Patellar: 1+, Lt Patellar: 1+, Rt Ankle: 1+ and Lt Ankle: 1+ Plantar Reflexes: Equivocal: bilateral (negative babinski b/l ) Extrem General: normal to inspection, full ROM, capillary refill normal, no calf tenderness bilaterally and no edema Other: B/L PT/DP pulses intact. Psych Appearance: grossly normal Mental Status: mental status grossly normal Speech and Movement: speech and movement normal Affect: normal affect
[2021-03-07 09:19] LABS: Bilirubin Negative (Negative); Blood Large (Negative); Clarity Cloudy (Clear); Glucose Negative (Negative); Ketones Negative (Negative); Leukocyte Esterase Negative (Negative); Nitrite Negative (Negative); Specific Gravity >= 1.030 (1.005-1.025); Urobilinogen 0.2 EU/dL (Up TO 0.2)
[2021-03-07 09:32] LABS: RBC >50 HPF (0-2)
[2021-03-07 09:33] LABS: Bacteria Rare HPF (Negative); C & S Indicated? Yes; Casts Negative LPF (Negative); Crystals Negative HPF (Negative); Epithelial Cells Few HPF (Negative); Mucus Trace (Negative)
[2021-03-07] MEDS: Ketorolac 30 MG/ML VIAL IVP (09:46)
[2021-03-07 09:47] LABS: Abs Immature Grans 0.03 10^3/uL (0.0-0.06); Absolute Basophil Count 0.05 10^3/uL (0.0-0.2); Absolute Eosinophil Count 0.31 10^3/uL (0.0-0.7); Absolute Lymphocyte Count 2.07 10^3/uL (1.2-3.4); Absolute Monocyte Count 0.69 10^3/uL (0.1-0.8); Absolute Neutrophil Count 7.33 10^3/uL (1.2-6.7); Basophils % 0.5; HCT 47.5 % (40.0-50.0); HGB 15.6 g/dL (13.5-17.5); Immature Grans % 0.3; Lymphocytes % 19.8; MCH 30.7 pg (27.0-33.0); MCHC 32.8 % (32.0-36.0); MCV 93.5 fL (80-95); MPV 9.6 fL (8.0-11.0); Monocytes % 6.6; Neutrophils % 69.8; Nucleated RBC 0 %; Platelet Count 215 10^3/uL (130-400); RBC 5.08 10^6/uL (4.36-5.78); RDW 13.8 % (11.8-14.1); RDW-SD 47.9 fL; WBC 10.48 10^3/uL (4.4-10.8)
[2021-03-07] MEDS: Normal Saline 500 ML IV (09:47)
[2021-03-07 10:02] LABS: ALT 28 U/L (16-63); AST 19 U/L (15-37); Albumin 3.3 g/dL (3.4-5.0); Alkaline Phosphatase 84 U/L (46-116); Anion Gap 8.9 mmol/L (3-11); BUN 26 mg/dL (7-18); Bilirubin, Total 0.4 mg/dL (0.2-1.0); CO2 28.1 mmol/L (21.0-32.0); CREATININE 1.4 mg/dL (0.70-1.30); Calcium 8.5 mg/dL (8.5-10.1); Chloride 106 mmol/L (98-107); Estimated GFR 49.82 (mL/min/1.73m2); Glucose 131 mg/dL (74-106); Potassium 3.6 mmol/L (3.5-5.1); Sodium 143 mmol/L (136-145); Total Protein 6.2 g/dL (6.4-8.2)
--- NOTE | 2021-03-07 10:04 | DI.CT_ITS ---
Exam(s) CT RENAL COLIC WO EXAM: CT RENAL COLIC WO CLINICAL HISTORY: L flank pain, r/o kidney stone. TECHNIQUE: Imaging Protocol: Axial computed tomography images with coronal and sagittal reformatted images were created and reviewed. COMPARISON: CT CHEST HIGH RESOLUTION from 01/10/2015 FINDINGS: ABDOMEN: Lung Bases: There is scarring in the right lung base. Moderate coronary artery calcification. Small hiatal hernia. Liver: Normal density. No measurable mass. Gallbladder and biliary tract: No radiodense calculus or biliary ductal dilation. Pancreas: Fatty atrophy. No abnormal calcification or inflammatory process. Spleen: Normal. Kidneys: Normal size, contour and axis.2 mm nonobstructing stones in the midpole and the lower pole o f the right kidney. Left renal cysts. There is a 1.3 x 0.7 cm stone at the left UVJ causing mild-to -moderate hydronephrosis. Adrenal glands: No mass is seen. Lymph nodes: Within normal limits. Abdominal Aorta: Abdominal portion non-dilated. Atherosclerosis. PELVIS: Bladder:Symmetric distention. Multiple bladder diverticuli. Bowel: No obstruction or bowel wall thickening. No evidence of appendicitis. Peritoneal cavity: No ascites, collection or mesenteric inflammatory response. No free air. Reproductive organs: Enlarged prostate gland. Bones: Multilevel degenerative changes. Old L1 compression deformity. Soft Tissues: Bilateral fat containing inguinal hernia. There is a small unremarkable loop of bowel involved with the right inguinal hernia. IMPRESSION: 1.3 x 0.7 cm left UVJ stone causing jgnm-nj-jvqdrxxh hydronephrosis. Results of this exam have been verbally communicated with provider. RADIATION DOSE DELIVERED: 1,436.94mGy.cm Total DLP DATA REPOSITORY: All CT scans at this facility are submitted to the National Radiology Data Registry (NRDR) Dose Index Registry (DIR) with the [employer] (ACR). RADIATION OPTIMIZATION: All CT scans at this facility use at least one of these dose optimization te chniques: automated exposure control; mA and/or kV adjustment per patient size (includes targeted exa ms where dose is matched to clinical indication); or iterative reconstruction.
[2021-03-07] MEDS: Normal Saline Flush 10 ML SYR IVP (10:44)
--- NOTE | 2021-03-07 13:24 | NUR.NOTE ---
Nursing Note: Referral faxed to Dr. Lee for 1 cm kidney stone, to stent on . Marilu Nicole
== END 2021-03-07 13:57 | disposition home or self-care (01) ==
PROVIDERS: Emergency Provider Physician Assistant; PCP Family Medicine
DX: N20.1 Calculus of ureter (principal); Z87.442 Personal history of urinary calculi
CPT/HCPCS: 80053; 96361; 96374; 96375; 99284; 74176; 81003; 81015; 85025; 87086; J1885

== ENCOUNTER 2021-03-08 02:16 | Outpatient (CLI) | payer MEDICARE, SELFPAY ==
[2021-03-08 11:10] LABS: Source Nasal/Nares
[2021-03-08 13:31] LABS: COVID-19 PCR Negative (Negative)
== END 2021-03-08 02:17 | disposition home or self-care (01) ==
LOC: LBO 02:16
PROVIDERS: PCP Family Medicine; Visit Provider Urology
DX: Z20.822 Contact with and (suspected) exposure to COVID-19 (principal); Z01.818 Encounter for other preprocedural examination
CPT/HCPCS: 87635

== ENCOUNTER 2021-03-09 10:46 | Day surgery (SDC) | payer MEDICARE, SELFPAY ==
[2021-03-09] VITALS (7 sets, daily range): BP systolic 126–159; BP diastolic 74–86; PULSE 51–66; RESP 15–23; TEMP 36.2–36.7; O2SAT 94–97; BMI 31.8
--- NOTE | 2021-03-09 11:11 | W.PM.HP.N ---
Date of service: 03/09/21 Time of Service: 11:54 Assessment and Plan Assessment and plan (1) Ureterolithiasis: Status: Acute Assessment and plan: Given the size of the stone, we will move forward with cystoscopy, left retrograde pyelogram, ureteroscopy with holmium laser lithotripsy and possible ureteral stent. If we are unable to access the stone, the patient understands that we might need to place a ureteral stent initially and perform a staged procedure with a return to the operating room after the ureter has dilated. History of Present Illness History of Present Illness Chief Complaint: Left ureteral stone Narrative: This is a 70-year-old gentleman who describes having had a kidney stone about 10 or 12 years ago. He did not require any surgical intervention at that time. He presented to our emergency room earlier this week with a left flank and left lower quadrant pain. He was found to have microscopic hematuria. On CT scan, a 1.3 cm left distal ureteral stone was identified. We asked him to remain off of his aspirin for a few days. He presents now for stone manipulation. He is not seeing any gross hematuria. He has no dysuria, fevers or chills. Review of Systems Narrative: No fevers or chills No vision change No diabetes or thyroid dysfunction No sputum production or hemoptysis Hx cardiomyopathy and CAD - followed by Dr Retana Hx GERD. No nausea, vomiting, hepatitis, ulcers No seizures, strokes or peripheral neuropathy No bleeding disorders or anemia Rheumatoid arthritis. No gout [facility] Medical History Anxiety Asthma, intermittent BPH (benign prostatic hyperplasia) Cardiomyopathy Chest pain Complicated grief Depression Dysphagia Dyspnea Elevated hemidiaphragm Epistaxis GERD (gastroesophageal reflux disease) History of partial colectomy Hx of ventral hernia repair Hyperlipidemia Hypertension Hypothyroidism Insomnia Melena Nocturnal cough Other osteoporosis with current pathological fracture, vertebra(e), subsequent encounter for fracture with routine healing Overweight Peripheral neuropathy Pharyngeal disorder Polyarthralgia Pulmonary hypertension Rheumatoid arthritis Rosacea Sicca syndrome SOB (shortness of breath) Steroid-induced osteoporosis Strain of calf muscle (06/30/19) Wheezing Surgical History Colectomy Colonoscopy - IV Sedation Hernia Repair, Incisional Stented coronary artery (~03/20/19) Social History Smoking/Tobacco Use Status: Never Smoking risk assessment performed?: Yes Alcohol Intake: never Drug use: Never Substance use type: does not use What type of physical activity do you participate in: none Do you feel safe at home: Yes Do you feel safe in your relationship?: Yes Meds Allergies and Home Medications Allergies Allergy/AdvReac Type Severity Reaction Status Date / Time lisinopril AdvReac Mild cough Verified 03/09/21 11:23 calcium AdvReac kidney Verified 03/09/21 11:34 stones Home Medications Medication Instructions Recorded Confirmed Type cholecalciferol (vitamin D3) 1,000 unit PO DAILY NS 11/11/12 03/09/21 History multivitamin with minerals 1 ea PO DAILY NS 11/11/12 03/09/21 History omeprazole [Prilosec] 40 mg PO DAILY tab-cap NS 11/11/12 03/09/21 History temazepam 30 mg PO HS NS 11/11/12 03/09/21 History aspirin [Aspir-81] 81 mg PO DAILY 02/20/14 03/09/21 History ascorbic acid (vitamin C) [Vitamin 500 mg PO DAILY 09/28/15 03/09/21 History C] budesonide-formoterol [Symbicort] 2 puff INHALATION BID PRN inhaler 09/28/15 03/09/21 History albuterol sulfate [ProAir HFA] 1 - 2 puff INHALATION Q6H PRN 12/22/15 03/09/21 History inhaler terazosin 2 mg PO HS tab-cap 04/28/18 03/09/21 History nitroglycerin 0.4 mg SUBLINGUAL ONCE 05/28/18 03/09/21 History venlafaxine [Effexor XR] 150 mg PO DAILY 07/01/19 03/09/21 History atorvastatin 10 mg tablet 10 mg PO DAILY 12/08/19 03/09/21 History bupropion HCl 150 mg tablet,12 hr 150 mg PO QAM 12/08/19 03/09/21 History sustained-release diclofenac sodium 3 % topical gel 1 applic TP TID PRN gm 12/08/19 03/09/21 History isosorbide mononitrate 30 mg 30 mg PO DAILY 12/08/19 03/09/21 History tablet,extended release 24 hr levothyroxine 50 mcg tablet 50 mcg PO DAILY 12/08/19 03/09/21 History venlafaxine 75 mg capsule,extended 75 mg PO DAILY 12/08/19 03/09/21 History release 24 hr fluticasone propionate 50 50 mcg INTRANASAL DAILY 12/10/19 03/09/21 History mcg/actuation nasal spray,suspension metoprolol succinate 25 mg PO HS 03/07/21 03/09/21 History ondansetron 4 mg PO TID PRN #6 tab 03/07/21 03/09/21 Rx oxycodone 5 mg PO Q6H PRN #10 tab 03/07/21 03/09/21 Rx prednisone 10 mg PO DIRECTED 03/07/21 03/09/21 History
--- NOTE | 2021-03-09 11:58 | W.ANESPRE ---
General Info Date of Service Date Performed: 03/09/21 Height: 5 ft 11 in Weight: 103.5 kg Body Mass Index (BMI): 31.8 Surgical Procedure: Operation Date: 03/09/21 13:10 Proposed Procedures Side Surgeon p Cystoscopy/Laser/Retrograde/Ureteroscopy, possible stent Left Les Lee MD Meds Allergies and Home Medications Allergies Allergy/AdvReac Type Severity Reaction Status Date / Time lisinopril AdvReac Mild cough Verified 03/09/21 11:23 calcium AdvReac kidney Verified 03/09/21 11:34 stones Home Medication Medication Instructions Recorded cholecalciferol (vitamin D3) 1,000 unit PO DAILY NS 11/11/12 multivitamin with minerals 1 ea PO DAILY NS 11/11/12 omeprazole [Prilosec] 40 mg PO DAILY tab-cap NS 11/11/12 temazepam 30 mg PO HS NS 11/11/12 aspirin [Aspir-81] 81 mg PO DAILY 02/20/14 ascorbic acid (vitamin C) [Vitamin 500 mg PO DAILY 09/28/15 C] budesonide-formoterol [Symbicort] 2 puff INHALATION BID PRN inhaler 09/28/15 albuterol sulfate [ProAir HFA] 1 - 2 puff INHALATION Q6H PRN 12/22/15 inhaler terazosin 2 mg PO HS tab-cap 04/28/18 nitroglycerin 0.4 mg SUBLINGUAL ONCE 05/28/18 venlafaxine [Effexor XR] 150 mg PO DAILY 07/01/19 atorvastatin 10 mg tablet 10 mg PO DAILY 12/08/19 bupropion HCl 150 mg tablet,12 hr 150 mg PO QAM 12/08/19 sustained-release diclofenac sodium 3 % topical gel 1 applic TP TID PRN gm 12/08/19 isosorbide mononitrate 30 mg 30 mg PO DAILY 12/08/19 tablet,extended release 24 hr levothyroxine 50 mcg tablet 50 mcg PO DAILY 12/08/19 venlafaxine 75 mg capsule,extended 75 mg PO DAILY 12/08/19 release 24 hr fluticasone propionate 50 50 mcg INTRANASAL DAILY 12/10/19 mcg/actuation nasal spray,suspension metoprolol succinate 25 mg PO HS 03/07/21 ondansetron 4 mg PO TID PRN #6 tab 03/07/21 oxycodone 5 mg PO Q6H PRN #10 tab 03/07/21 prednisone 10 mg PO DIRECTED 03/07/21 Current Visit Medications: Current Medications Generic Name Dose Route Start Last Admin Trade Name Gera PRN Reason Stop Dose Admin Ringer's Solution 1,000 mls @ 80 mls/hr 03/09/21 06:00 IV 04/07/21 23:59 INFUSION JILLIAN Cefazolin Sodium/Dextrose 2 gm in 50 mls @ 100 mls/hr 03/09/21 06:00 Ancef Duplex IVPB 03/09/21 16:00 PREOP JILLIAN IV Miscellaneous Supplies 1 each 03/09/21 06:00 Iv Access IV 04/07/21 23:59 DIRECTED JILLIAN Sodium Chloride 0 ml 03/09/21 06:00 Normal Saline Flush 10 Ml Syr IV 04/07/21 23:59 PRN PRN Sodium Chloride 0 ml 03/09/21 06:00 Normal Saline 10 Ml Vial IJ 04/07/21 23:59 DIRECTED PRN Sterile Water 0 ml 03/09/21 06:00 Water,Injection,Sterile 10 Ml Vial IJ 04/07/21 23:59 DIRECTED PRN PFSH Active Problems Active Problems: Problem Status Onset Code Ureterolithiasis N20.1 Coronary artery disease I25.10 Chest pain R07.9 Wheezing R06.2 Nocturnal cough R05 Cardiomyopathy I42.9 SOB (shortness of breath) R06.02 Melena K92.1 CAD (coronary artery disease) of artery bypass graft I25.810 BPH (benign prostatic hyperplasia) N40.0 Dysphagia R13.10 Asthma, intermittent J45.20 Strain of calf muscle 06/30/19 S86.819A Leg hematoma 06/30/19 S80.10XA Tubular adenoma of colon D12.6 GERD (gastroesophageal reflux disease) K21.9 Xerostomia 08/17/13 R68.2 Winged scapula of left side 04/09/16 M95.8 Tendinitis of left rotator cuff 04/09/16 M75.82 Rhinitis 08/31/13 J31.0 Rheumatoid arthritis 10/14/17 M06.9 Personal history of antineoplastic chemotherapy 10/14/17 Z92.21 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 04/09/16 G54.5 Epistaxis 10/14/17 R04.0 Acute sinusitis 08/17/13 J01.90 Medical History Medical History Anxiety Asthma, intermittent BPH (benign prostatic hyperplasia) Cardiomyopathy Chest pain Complicated grief Depression Dysphagia Dyspnea Elevated hemidiaphragm Epistaxis GERD (gastroesophageal reflux disease) History of partial colectomy Hx of ventral hernia repair Hyperlipidemia Hypertension Hypothyroidism Insomnia Melena Nocturnal cough Other osteoporosis with current pathological fracture, vertebra(e), subsequent encounter for fracture with routine healing Overweight Peripheral neuropathy Pharyngeal disorder Polyarthralgia Pulmonary hypertension Rheumatoid arthritis Rosacea Sicca syndrome SOB (shortness of breath) Steroid-induced osteoporosis Strain of calf muscle (06/30/19) Wheezing Surgical History Surgical History Colectomy Colonoscopy - IV Sedation Hernia Repair, Incisional Stented coronary artery (~03/20/19) Tobacco Smoking/Tobacco Use Status: Never Alcohol Alcohol Intake: never Substance Use Substance use: Never Substance use type: does not use Vital Signs and Lab Results Vital Signs Most Recent Vital Signs in EMR: Most Recent Vital Signs Temp Pulse Resp BP Pulse Ox 36.7 C 66 18 159/85 H 95 03/09/21 11:32 03/09/21 11:32 03/09/21 11:32 03/09/21 11:32 03/09/21 11:32 Lab Results Blood Type / Crossmatch: No Data to Display Complete Blood Count: White Blood Count 10.48 10^3/uL (4.4-10.8) 03/07/21 09:38 03/07/21 Red Blood Count 5.08 10^6/uL (4.36-5.78) 03/07/21 09:38 03/07/21 Hemoglobin 15.6 g/dL (13.5-17.5) 03/07/21 09:38 03/07/21 Hematocrit 47.5 % (40.0-50.0) 03/07/21 09:38 03/07/21 Platelet Count 215 10^3/uL (130-400) 03/07/21 09:38 03/07/21 Complete Metabolic Panel: Sodium Level 143 mmol/L (136-145) 03/07/21 09:38 03/07/21 Potassium Level 3.6 mmol/L (3.5-5.1) 03/07/21 09:38 03/07/21 Chloride Level 106 mmol/L (98-107) 03/07/21 09:38 03/07/21 Carbon Dioxide Level 28.1 mmol/L (21.0-32.0) 03/07/21 09:38 03/07/21 Blood Urea Nitrogen 26 mg/dL (7-18) H 03/07/21 09:38 03/07/21 Creatinine 1.4 mg/dL (0.70-1.30) H 03/07/21 09:38 03/07/21 Estimated GFR/1.73 m2 49.82 (mL/min/1.73m2) 03/07/21 09:38 03/07/21 Calcium Level 8.5 mg/dL (8.5-10.1) 03/07/21 09:38 03/07/21 Albumin 3.3 g/dL (3.4-5.0) L 03/07/21 09:38 03/07/21 Glucose Level 131 mg/dL (74-106) H 03/07/21 09:38 03/07/21 Liver Function Panel: Alanine Aminotransferase (ALT/SGPT) 28 U/L (16-63) 03/07/21 09:38 03/07/21 Aspartate Amino Transf (AST/SGOT) 19 U/L (15-37) 03/07/21 09:38 03/07/21 Coagulation Panel: No Data to Display Cardiac Panel: No Data to Display Arterial Blood Gas: No Data to Display Venous Blood Gas: No Data to Display Pancreas Panel: No Data to Display Thyroid Panel: No Data to Display Infectious Disease: Coronavirus (COVID-19)(PCR) Negative (Negative) 03/08/21 10:14 03/08/21 Coronavirus 2019 Source Nasal/Nares 03/08/21 10:14 03/08/21 Blood Cultures: No Data to Display Toxicology Panel: No Data to Display Imaging and Studies Imaging and Studies Stress Test Summary: 03/08/2020 Clinical Stress Symptoms: No significant symptoms post lexiscan injection. Stress ECG Conclusion 1. The resting electrocardiogram shows poor R wave progression, possible anterior wall myocardial infarction 2. This was a pharmacologic myocardial perfusion imaging study. Blunted heart rate and blood pressure response to stress 3. The patient achieved 64% of predicted heart rate for age. There were no electrocardiographic changes. Electrocardiographically the test was nondiagnostic due to inadequate heart rate 4. There were no significant dysrhythmias Echocardiogram Summary: 03/08/2020 Conclusion Normal left ventricular wall thickness and chamber size. There is global hypokinesis. Estimated ejection fraction is 40 to 45% There is no chamber enlargement Aortic valve is trileaflet and sclerotic. There is no aortic stenosis or regurgitation Trace physiologic mitral, tricuspid, and pulmonic regurgitation Right ventricular size and function is normal. Estimated right ventricular systolic pressure is normal at 21 mmHg Anesthesia Assessment and Plan Anesthesia History Personal History: PONV Family History: No Family History of Anesthesia Complications Exercise Tolerance Exercise Tolerance: Metabolic Equivalents<4 Pertinent Negatives Pertinent Negatives: No Symptoms of GERD and No History of CVA/TIA Cardiac & Pulmonary Exam Cardiac Exam: Normal S1/S2 Heart Sounds Pulmonary Exam: Clear Bilateral Breath Sounds Cardiac and Pulmonary Comment:: Baseline ZEPEDA, denies CP, states breathing is baseline Airway Exam Known Difficult Airway: No Mallampati Class: 2 Mouth Opening: Normal (> 3cm) Thyromental Distance: Greater than 3 cm Neck Range of Motion: Full ROM Neck Circumference: Normal Teeth Condition: Normal Dentition (Patient reports teeth in baseline condition) ASA Classification ASA Score: ASA 3 Emergency Case?: No NPO Status NPO Status: NPO Clears >2 hours, Solids >8 hours Anesthesia Plan Resuscitation Status: Full Code Anesthesia Technique: Spinal Anesthesia Airway Planned: Natural Airway Monitors Used: Standard Monitors
[2021-03-09] MEDS: Lactated Ringers 1,000 ML 80 ML IV (12:05)
[2021-03-09] MEDS: ceFAZolin 2 GM/50 ML BAG IVPB (13:05)
[2021-03-09] MEDS: Lidocaine 2% Jelly 6 ML SYR (13:54)
[2021-03-09] MEDS: Omnipaque 300 MG/ML 50 ML BTL (14:02)
--- NOTE | 2021-03-09 14:05 | DI.RAD_ITS ---
Exam(s) XR RETROGRADE IN OR EXAM: XR RETROGRADE IN OR CLINICAL HISTORY: retrograde left. TECHNIQUE: Fluoroscopy was provided for the referring physician for guidance with performing i retro grade procedure. COMPARISON: CT CT RENAL COLIC WO from 03/07/[address] RENAL COLIC WO from 03/07/2021 FINDINGS: Hard copy images show placement of a left ureteral stent. Please see procedure note for details. Fluoro time 26.4 seconds RADIATION DOSE DELIVERED: maya Hull=5.62 mGy
--- NOTE | 2021-03-09 14:06 | W.PM.DSUDISC ---
Discharge Plan Disposition Patient Disposition: HOME Condition: Stable Discharge Details Reason For Visit: ureteral stone Attending Provider: Les Lee Primary Care Provider: Arelis Michele V Home Meds and New Rx's Prescriptions: No Action venlafaxine 75 mg capsule,extended release 24hr 75 mg PO DAILY RF: 0 bupropion HCl [Wellbutrin SR] 150 mg tablet sustained-release 12 hr 150 mg PO QAM RF: 0 atorvastatin 10 mg tablet 10 mg PO DAILY RF: 0 levothyroxine [Synthroid] 50 mcg tablet 50 mcg PO DAILY RF: 0 isosorbide mononitrate 30 mg tablet extended release 24 hr 30 mg PO DAILY RF: 0 diclofenac sodium 3 % gel 1 applic TP TID PRNRF: 0 omeprazole [Prilosec] 40 MG capsule,delayed release(DR/EC) 40 mg PO DAILY RF: 0 temazepam 30 MG capsule 30 mg PO HS RF: 0 multivitamin with minerals 1 EACH tablet 1 ea PO DAILY RF: 0 cholecalciferol (vitamin D3) 1,000 UNIT tablet 1,000 unit PO DAILY RF: 0 ascorbic acid (vitamin C) [Vitamin C] 500 MG tablet 500 mg PO DAILY RF: 0 budesonide-formoterol [Symbicort] 10.2 GM HFA aerosol inhaler 2 puff Inhalation BID PRNRF: 0 albuterol sulfate [ProAir HFA] 8.5 GM HFA aerosol inhaler 1 - 2 puff Inhalation Q6H PRN RF: 0 terazosin 2 MG capsule 2 mg PO HS RF: 0 aspirin [Aspir-81] 81 MG tablet,delayed release (DR/EC) 81 mg PO DAILY RF: 0 nitroglycerin 0.4 mg Tablet, Sublingual 0.4 mg SUBLINGUAL ONCE RF: 0 prednisone 10 mg tablet 10 mg PO DIRECTED RF: 0 metoprolol succinate 25 mg tablet extended release 24 hr 25 mg PO HS RF: 0 venlafaxine [Effexor XR] 150 mg Capsule,Extended Release 24hr 150 mg PO DAILY RF: 0 fluticasone propionate [Flonase Allergy Relief] 50 mcg/actuation spray,suspension 50 mcg INTRANASAL DAILY RF: 0 ondansetron 4 mg tablet,disintegrating 4 mg PO TID PRN (Reason: nausea and vomiting) Qty: 6 RF: 0 oxycodone 5 mg tablet 5 mg PO Q6H PRN (Reason: pain) Qty: 10 RF: 0 Discharge Instructions Additional Instructions: no need to strain urine may restart aspirin on 03/09/2021 if no visible blood in urine followup early next week for stent removal - tell my office there is a string on his stent followup with me @ 6 weeks with renal US prior to visit Activity:: Activity as Tolerated Shower/Bathe:: 24 hours Diet:: As Tolerated Discharge Orders Discharge Orders: Discharge Order (Routine); Ordered 03/09/21 Ordered By: Les Lee Discharge Data Discharge Comment: pt must void prior to discharge DS: Diagnosis Discharge Diagnosis (1) Ureterolithiasis: Status: Acute
--- NOTE | 2021-03-09 14:13 | ROE_ITS ---
Date of service: 03/09/21 Time of Service: 14:21 Operative Note Operative Note DATE OF PROCEDURE: 03/09/21 PRE-OP DIAGNOSIS: Left ureteral stone POST-OP DIAGNOSIS: same PROCEDURE: cystoscopy, left retrograde pyelogram, left ureteroscopy with holmium laser lithotripsy, extraction of stone fragments, insert left ureteral stent SURGEON: Les Lee ANESTHESIA TYPE: Spinal Refer to Anesthesia Record ESTIMATED BLOOD LOSS: 25 PATHOLOGY: other (stone for chemical analysis) COMPLICATIONS: None Patient was transported to: PACU Patient's condition: stable Implants: 6 Cam[place]onian by 22 to 30 cm ureteral stent Indications: This is a 70-year old gentleman who recently presented to the emergency room with left lower quadrant pain. He was identified as having a 13 mm stone at the left ureterovesical junction. He presents for stone manipulation. Findings: Large stone just within left UVJ Procedure Description: The patient was brought to the operating room on 03/08/2021. He was given preoperative IV antibiotics. After successful induction of spinal anesthesia, he was placed in the dorsal lithotomy position. His genitalia was prepped and draped. 2% Xylocaine jelly was instilled into the urethra to act as a local anesthetic. A 22 [place]onian rigid cystoscope was passed through the urethra into the bladder. The bladder was inspected with a 30 degree lens. The pendulous, bulbar and membranous urethra appeared normal with no strictures. The prostatic urethra showed lateral lobe enlargement. The bladder neck was entered and the bladder mucosa was inspected. The right ureteral orifice was visualized and it appeared normal. The left orifice was markedly edematous and we were able to see the tip of the stone at the ureterovesical junction. I attempted to pass a 6 Cam[place]onian access catheter through the scope and maneuver it into the orifice but I was not successful. I was able to use the access catheter as a guide to pass a Glidewire up the ureter. I then used a 4 cm UroMax balloon to dilate the distal ureteral and ureteral orifice. This was done under fluoroscopic and cystoscopic guidance. The balloon was deflated and removed. The cystoscope was removed. I then passed a semirigid ureteroscope through the urethra into the bladder. I was able to advance the ureteroscope up the left ureter until a large stone was visualized. We used a 365 ?m holmium laser fiber to fragment the stone into multiple pieces. The fragments were then grasped in a Jacqueline stone basket and removed. The stones were sent to pathology for analysis. Because of the trauma of the ureteral dilation, we elected to place a ureteral stent. Initially, I reinserted the ureteral access catheter over the guidewire. I removed the wire and did a retrograde pyelogram by injecting Omnipaque through the access catheter under fluoroscopic guidance. The ureter was dilated but there was no extravasation of urine exterior to the course of the ureter or bladder. I reinserted the Glidewire and removed the ureteral access catheter. A 6 Cam[place]onian variable length stent was advanced over the wire. The proximal end of the stent was curled in the renal pelvis and the distal and was curled within the bladder. The positioning of the stent was confirmed both fluoroscopically and cystoscopically. The safety string was left attached to the stent. The string was brought through the urethral meatus and anchored to the dorsum of the penis using a Steri-Strip. He tolerated the procedure well and was taken to the recovery room in stable condition
--- NOTE | 2021-03-09 15:04 | W.ANESPOSTOP ---
Postoperative Evaluation Date, Time and Location Date Performed: 03/09/21 Time Performed: 15:05 Patient Location: Day Surgery Unit Vital Signs Most Recent Imported Vital Signs: Most Recent Vital Signs Temp Pulse Resp BP Pulse Ox 36.5 C 51 L 18 134/84 95 03/09/21 14:35 03/09/21 14:35 03/09/21 14:35 03/09/21 14:35 03/09/21 14:35 Pain Score Most Recent Pain Score: Most Recent Pain Score Pain Level 0 03/09/21 14:35 Assessment Mental Status: Awake (Alert & Oriented to Patient Baseline) Airway and Respiratory Function: Patent airway with normal (patient baseline) respiratory exam Cardiovascular Function: Hemodynamically Stable Hydration Status: Adequately Hydrated Nausea & Vomiting: No Nausea or Vomiting Pain: Pt. Denies Any Pain Peripheral Nerve Block: Other (Spinal resolving appropriately)
[2021-03-13 08:26] LABS: Source: Left Ureter
== END 2021-03-09 15:45 | disposition home or self-care (01) ==
PROVIDERS: PCP Family Medicine; Visit Provider Urology
PROC: (CPT 52356; principal; 2021-03-09 13:00)
DX: N20.1 Calculus of ureter (principal); I42.9 Cardiomyopathy, unspecified; K21.9 Gastro-esophageal reflux disease without esophagitis; N40.0 Benign prostatic hyperplasia without lower urinary tract symptoms; I10 Essential (primary) hypertension
CPT/HCPCS: 52356; 74420; 82365; J0690; J1100; J2405; Q9967

== ENCOUNTER → 2021-03-10 12:44 | Outpatient (BNVA) | payer MEDICARE, SELFPAY | PROVIDERS: PCP Family Medicine; Referring Provider Family Medicine; Visit Provider Urology | DX: Z48.816 Encounter for surgical aftercare following surgery on the genitourinary system (principal); T83.84XA Pain due to genitourinary prosthetic devices, implants and grafts, initial encounter; N20.1 Calculus of ureter ==

== ENCOUNTER → 2021-03-15 08:00 | Outpatient (BNVA) | payer MEDICARE, SELFPAY | PROVIDERS: PCP Family Medicine; Referring Provider Family Medicine; Visit Provider Nurse Practitioner Gerontology | DX: Z48.816 Encounter for surgical aftercare following surgery on the genitourinary system (principal); N20.1 Calculus of ureter | CPT/HCPCS: 99213 ==

== ENCOUNTER 2021-03-22 02:40 | Outpatient (RCR) | payer MEDICARE, SELFPAY ==
[2021-03-15 09:18] LABS: Anion Gap 7.2 mmol/L (3-11); BUN 23 mg/dL (7-18); CO2 28.8 mmol/L (21.0-32.0); CREATININE 1.1 mg/dL (0.70-1.30); Calcium 8.7 mg/dL (8.5-10.1); Chloride 109 mmol/L (98-107); Glucose 83 mg/dL (74-106); PHOSPHORUS 3.8 mg/dL (2.6-4.7); Potassium 3.7 mmol/L (3.5-5.1); Sodium 145 mmol/L (136-145)
[2021-03-22] VITALS (11 sets, daily range): BP systolic 131–152; BP diastolic 75–87; PULSE 85–100; RESP 16; TEMP 36.3–37.4; O2SAT 94–96
[2021-03-22] MEDS: diphenhydrAMINE 25 MG CAP PO (08:00)
[2021-03-22] MEDS: Normal Saline Flush 10 ML SYR IVP (08:00)
[2021-03-22] MEDS: methylPREDNISolone SUCC 125 MG VIAL 100 MG IVP (08:00)
[2021-03-22] MEDS: Acetaminophen 325 MG TAB 650 MG PO (08:00)
[2021-03-22] MEDS: riTUXimab-PVVR 1,000 MG in Normal Saline 150 ML 62.5 MG IVPB (08:10)
== END 2021-04-01 23:59 | disposition home or self-care (01) ==
LOC: INF 02:40
PROVIDERS: Nurse Practitioner; PCP Family Medicine; Visit Provider Nurse Practitioner Acute Care
DX: M06.9 Rheumatoid arthritis, unspecified (principal)
CPT/HCPCS: 36415; 80069; 96365; 96366; 96374; 96375; 99213; J2930; Q5119

== ENCOUNTER → 2021-03-24 09:48 | Outpatient (BNVA) | payer MEDICARE, SELFPAY | PROVIDERS: PCP Family Medicine; Referring Provider Family Medicine; Visit Provider Internal Medicine Cardiovascular Disease | DX: I25.10 Atherosclerotic heart disease of native coronary artery without angina pectoris (principal); I10 Essential (primary) hypertension; R06.02 Shortness of breath | CPT/HCPCS: 99214; 99213 ==

== ENCOUNTER 2021-04-25 03:28 | Outpatient (CLI) | payer MEDICARE, SELFPAY ==
--- NOTE | 2021-04-25 08:45 | DI.US_ITS ---
Exam(s) US RENAL EXAM: US RENAL CLINICAL HISTORY: r/o hydronephrosis after ureteroscopy, LT URETERAL STONE, N20.1. TECHNIQUE: Haro scale, color and spectral Doppler were used. COMPARISON: No exams were available for comparison FINDINGS: Renal size in cm: Right: 11.3 left: 12.3 Echogenicity: Normal Hydronephrosis: No Cyst or mass: 5.4 centimeter in maximal dimension cyst anterior, mid left kidney. Nephrolithiasis: None visible Prostate volume 38.1 cc Bladder:9 millimeter stone in the dependent portion of the bladder. Prevoid vol:111 cc Postvoid vol:68 cc IMPRESSION: 9 millimeter bladder calculus. No visible renal calculi or hydronephrosis. Elevated postvoid residu al. DATA REPOSITORY:
== END 2021-04-25 03:48 ==
PROVIDERS: PCP Family Medicine; Visit Provider Urology
DX: N32.89 Other specified disorders of bladder (principal); N28.1 Cyst of kidney, acquired; N20.1 Calculus of ureter
CPT/HCPCS: 76770; 99213

== ENCOUNTER 2021-06-02 01:18 | Outpatient (CLI) | payer MEDICARE, SELFPAY ==
[2021-06-02 12:06] LABS: ESR 1 mm/hr (0-20)
[2021-06-02 12:07] LABS: Abs Immature Grans 0.01 10^3/uL (0.0-0.06); Absolute Basophil Count 0.05 10^3/uL (0.0-0.2); Absolute Monocyte Count 0.52 10^3/uL (0.1-0.8); Absolute Neutrophil Count 4.05 10^3/uL (1.2-6.7); Basophils % 0.7; Eosinophils % 7.1; HCT 50.6 % (40.0-50.0); HGB 16.4 g/dL (13.5-17.5); Immature Grans % 0.1; MCH 30.3 pg (27.0-33.0); MCHC 32.4 % (32.0-36.0); MCV 93.4 fL (80-95); MPV 9.7 fL (8.0-11.0); Monocytes % 7.4; Neutrophils % 57.7; Nucleated RBC 0 %; Platelet Count 241 10^3/uL (130-400); RBC 5.42 10^6/uL (4.36-5.78); RDW 13.7 % (11.8-14.1); RDW-SD 47.8 fL; WBC 7.03 10^3/uL (4.4-10.8)
[2021-06-02 14:38] LABS: ALT 25 U/L (16-63); AST 18 U/L (15-37); Albumin 3.6 g/dL (3.4-5.0); Alkaline Phosphatase 98 U/L (46-116); Anion Gap 8.1 mmol/L (3-11); BUN 17 mg/dL (7-18); Bilirubin, Total 0.4 mg/dL (0.2-1.0); CO2 28.9 mmol/L (21.0-32.0); CREATININE 1.1 mg/dL (0.70-1.30); Calcium 9.1 mg/dL (8.5-10.1); Calculated LDL 142 mg/dL (<100); Chloride 106 mmol/L (98-107); Cholesterol 222 mg/dL (<200); Glucose 79 mg/dL (74-106); HDL Cholesterol 53 mg/dL (40-60); Sodium 143 mmol/L (136-145); Total Protein 6.4 g/dL (6.4-8.2); Triglyceride 136 mg/dL (<150)
[2021-06-02 15:00] LABS: C-Reactive Protein 0.15 mg/dL (0.0-0.3)
[2021-06-05 10:04] LABS: HBs Antibody, Quant <3.1 mIU/mL (See Note); Hepatitis B Surface Ab Negative (See Note)
[2021-06-05 10:13] LABS: Hepatitis B Surface Ag Negative (Negative)
[2021-06-05 10:44] LABS: Hepatitis C Ab w Rflx HCV PCR Negative (Negative)
[2021-06-05 11:16] LABS: Hep B Core Antibody Negative (Negative)
[2021-06-05 13:45] LABS: TB Interpretation Negative (Negative)
== END 2021-06-02 01:19 | disposition home or self-care (01) ==
PROVIDERS: PCP Family Medicine; Visit Provider Nurse Practitioner
DX: E78.00 Pure hypercholesterolemia, unspecified (principal); M05.9 Rheumatoid arthritis with rheumatoid factor, unspecified; Z79.899 Other long term (current) drug therapy
CPT/HCPCS: 36415; 80053; 80061; 85652; 86704; 86706; 86803; 87340; 85025; 86140; 86480

== ENCOUNTER → 2021-06-27 14:22 | Outpatient (BNVA) | payer MEDICARE, SELFPAY | PROVIDERS: PCP Family Medicine; Visit Provider Urology | DX: N20.1 Calculus of ureter (principal) | CPT/HCPCS: 81003; 99213 ==

== ENCOUNTER → 2021-09-22 09:29 | Outpatient (BNVA) | payer MEDICARE, SELFPAY | PROVIDERS: PCP Family Medicine; Visit Provider Internal Medicine Cardiovascular Disease | DX: I25.10 Atherosclerotic heart disease of native coronary artery without angina pectoris (principal); I42.9 Cardiomyopathy, unspecified; R06.02 Shortness of breath | CPT/HCPCS: 99214; 99213 ==

== ENCOUNTER 2022-01-31 21:24 | Outpatient (CLI) | payer MEDICARE, SELFPAY ==
[2022-01-31 17:20] LABS: C-Reactive Protein 0.34 mg/dL (0.0-0.3)
== END 2022-01-31 21:25 | disposition home or self-care (01) ==
PROVIDERS: PCP Family Medicine; Visit Provider Nurse Practitioner
DX: M05.9 Rheumatoid arthritis with rheumatoid factor, unspecified (principal); Z79.899 Other long term (current) drug therapy
CPT/HCPCS: 36415; 86140

== ENCOUNTER 2022-03-12 02:17 | Outpatient (CLI) | payer MEDICARE, SELFPAY ==
--- NOTE | 2022-03-12 07:30 | DI.US_ITS ---
APPROVED REPORT EXAM: Comprehensive 2D, Doppler, and color-flow Echocardiogram Patient Location: Out-Patient Nurse Rn Bsn: Kelly Jaramillo RDCS (AE) Indications: CMP, CAD Other Information Study Quality: Adequate Conclusion Normal left ventricular wall thickness and chamber size. Estimated ejection fraction is 45%. There is mild global hypokinesis Normal right ventricular size and systolic function Both atria are normal in size The aortic valve is trileaflet and sclerotic with trace regurgitation Mild mitral annular calcification. Trace mitral regurgitation Normal tricuspid valve with trace regurgitation. Estimated right ventricular systolic pressure is 22 mmHg Mildly dilated ascending aorta measuring 3.51 cm Wall motion Left Ventricle The left ventricle is normal size. Left ventricular systolic function is mildly decreased. There is n ormal left ventricular wall thickness. There is global hypokinesis of the left ventricle. There is no ventricular septal defect visualized. LVEF is 45%. Right Ventricle Right ventricle is grossly normal in size. Right ventricular systolic function is grossly normal. The RVSP is 22.5mmHg. Atria The left atrium size is normal. The right atrium size is normal. The interatrial septum is intact wit h no evidence for an atrial septal defect. Aortic Valve The Aortic valve is sclerotic. Aortic valve is trileaflet. There is no aortic valvular stenosis. Trac e aortic regurgitation. Mitral Valve Mild mitral annular calcification. No evidence of mitral valve stenosis. Trace mitral regurgitation. Tricuspid Valve The tricuspid valve is normal in structure. There is no tricuspid valve stenosis. Trace tricuspid reg urgitation. Pulmonic Valve The pulmonary valve is normal in structure. There is no pulmonic valvular stenosis. Trace pulmonic re gurgitation. Great Vessels The aortic root is normal in size. The ascending aorta is mildly dilated. Aortic arch is normal in ca liber. IVC is normal in size and collapses >50% with inspiration. Pericardium There is no pericardial effusion. 2D Dimensions IVSD d PLAX 0.96 cm M: 0.6-1.2 LV Vol A2C d MOD 90.5 mL LVPW d PLAX 0.98 cm M: 0.6 - 1.2 LV Vol A4C d MOD 89.3 mL LVID d PLAX 4.59 cm M: 4.2 - 5.8 LA vol/ BSA A2C s A-L 14.4 mL/m2 LVDs 3.50 cm M: 2.5 - 4.0 LA vol/ BSA A4C s A-L 26.8 mL/m2 Ao Root d 2.88 cm M: 3.1 - 3.7 LA Vol/ BSA Biplane s A-L 23.7 mL/m2 RA Area A4C 10.47 cm2 LA Area A4C s MOD 19.93 cm2 RA Vol/ BSA A4C s A-L 10.0 mL/m2 LA Area A2C s MOD 12.09 cm2 Ao Asc Diam d 3.51 cm M: 2.6 - 3.4 LV EF A4C MOD 45.3 % LV EF Teichholz 45.9 % LV EF A2C MOD 45.4 % LVEF (Montano's) 46.84 % M: 52 - 72 LV EF Biplane MOD 46.8 % LV Volume 69.81 mL M: 62 - 150 SV 44.94 mL LV Volume Index 31.87 mL/m2 M: 34 - 74 SV Index 20.45 mL/m2 LV Vol Biplane MOD 95.9 mL FS 22.75 % M-Mode TAPSE 1.87 cm (M/F) >1.7 LV Diastology MV E' medial 0.059 (>0.07 m/s) E/A Ratio 0.9 LV E/e MED 9.45 (<14) MV E Vmax 0.56 (0.4-1.3 m/s) MV E' lateral 0.070 (>0.1 m/s) MV A Vmax 0.65 (0.4-1.3 m/s) LV E/e LAT 7.95 (<14) MV E/A Ratio 0.84 MV E/E' medial 9.48 MV E/E' lateral 7.98 Aortic Valve LVOT Area 3.59 cm2 AoV Area Vmax 2.38 cm2 LVOT Vmax 0.74 m/s AoV Area/ BSA (Vmax) 1.08 cm2/m2 LVOT Mean Jamel. 0.51 m/s VALDEMAR Mean Jamel. 2.19 cm2 LVOT Peak Grad 2.2 mmHg VALDEMAR Mean Jamel. Index 1.00 cm2/m2 LVOT Mean Grad 1.2 mmHg AR DT 2729 msec LVOT VTI 0.149 m AR PHT 791 msec LVOT Diam s 2.10 cm AoV Vmax 1.11 m/s Velocity Ratio 0.66 AoV Mean Jamel. 0.84 m/s AoV Peak Grad 5.0 mmHg LVOT SV 53.35 mL AoV Mean Grad 3.1 mmHg AoV VTI 0.221 m AoV Area VTI 2.42 cm2 AoV Area/ BSA (VTI) 1.10 cm/m2 Mitral Valve MV DT 311 (160-240 msec) MV PHT 90 msec MV Area PHT 2.44 cm2 MV VTI 0.273 m MV Area VTI 1.96 (4.0-6.0 cm2) Pulmonary Valve PV Vmax 0.94 (0.5-1.5 m/s) RVOT Peak Gr. 1.22 mmHg PV Peak Grad 3.5 mmHg RVOT Mean Gr. 0.55 mmHg PV Mean Grad 1.6 mmHg RVOT VTI 0.089 m PV VTI 0.158 m RVOT Vmax 0.55 m/s Tricuspid Valve TR Peak Grad 19.5 mmHg TR Vmax 2.21 m/s RA Pressure 3.00 mmHg RVSP (TR) 22.5 mmHg
== END 2022-03-12 02:37 ==
PROVIDERS: PCP Family Medicine; Visit Provider Internal Medicine Cardiovascular Disease
DX: I25.810 Atherosclerosis of coronary artery bypass graft(s) without angina pectoris (principal)
CPT/HCPCS: 93306

== ENCOUNTER 2022-03-23 08:30 | Outpatient (CLI) | payer MEDICARE, SELFPAY | END 2022-03-23 08:31 | disposition home or self-care (01) | LOC: DI.CARD 08:31 | PROVIDERS: PCP Family Medicine; Visit Provider Internal Medicine Cardiovascular Disease | DX: R69 Illness, unspecified (principal) | CPT/HCPCS: 93010 ==

== ENCOUNTER 2022-04-02 09:30 | Outpatient (CLI) | payer MEDICARE, SELFPAY ==
--- NOTE | 2022-04-02 09:30 | RT.EKG_ITS ---
APPROVED REPORT Exam: Resting ECG Reason for Exam: CAD Patient Location: O HR:74 bpm ECG Measurements Heart Rate 74 AXIS ME 219 P 32 QRSd 114 QRS 5 QT 375 T 33 QTc 416 Conclusion Sinus arrhythmia...V-rate 71- 78, variation>10% Borderline prolonged ME interval...ME >212, V-rate 50- 90 Borderline intraventricular conduction delay...QRSd >112mS Poor R wave progression
== END 2022-04-02 09:31 | disposition home or self-care (01) ==
LOC: DI.CARD 09:32
PROVIDERS: PCP Family Medicine; Visit Provider Internal Medicine Cardiovascular Disease
DX: I25.10 Atherosclerotic heart disease of native coronary artery without angina pectoris (principal); R94.31 Abnormal electrocardiogram [ECG] [EKG]
CPT/HCPCS: 93010

== ENCOUNTER → 2022-04-02 09:54 | Outpatient (BNVA) | payer MEDICARE, SELFPAY | PROVIDERS: PCP Family Medicine; Referring Provider Family Medicine; Visit Provider Internal Medicine Cardiovascular Disease | DX: R06.09 Other forms of dyspnea (principal); I50.1 Left ventricular failure, unspecified; Z95.5 Presence of coronary angioplasty implant and graft; I25.810 Atherosclerosis of coronary artery bypass graft(s) without angina pectoris; I42.9 Cardiomyopathy, unspecified | CPT/HCPCS: 93005; 99214 ==

== ENCOUNTER 2022-05-05 12:29 | Outpatient (REF) | payer MEDICARE, SELFPAY | END 2022-05-05 12:30 | disposition home or self-care (01) | LOC: NCHCN 12:29 | PROVIDERS: PCP Family Medicine; Visit Provider Nurse Practitioner Family | DX: H10.9 Unspecified conjunctivitis (principal) | CPT/HCPCS: 87070; 87205 ==

== ENCOUNTER 2022-05-30 11:07 | Outpatient (CLI) | payer MEDICARE, SELFPAY ==
[2022-05-30 12:09] LABS: ESR 2 mm/hr (0-20)
[2022-05-30 12:14] LABS: Abs Immature Grans 0.01 10^3/uL (0.0-0.06); Absolute Basophil Count 0.04 10^3/uL (0.0-0.2); Absolute Eosinophil Count 0.35 10^3/uL (0.0-0.7); Absolute Lymphocyte Count 1.86 10^3/uL (1.2-3.4); Absolute Monocyte Count 0.56 10^3/uL (0.1-0.8); Absolute Neutrophil Count 4.87 10^3/uL (1.2-6.7); Basophils % 0.5; Eosinophils % 4.6; HCT 48.7 % (40.0-50.0); HGB 15.8 g/dL (13.5-17.5); Immature Grans % 0.1; Lymphocytes % 24.2; MCH 29.8 pg (27.0-33.0); MCHC 32.4 % (32.0-36.0); MCV 92 fL (80-95); MPV 9.4 fL (8.0-11.0); Monocytes % 7.3; Neutrophils % 63.3; Platelet Count 219 10^3/uL (130-400); RDW 13.6 % (11.8-14.1); RDW-SD 46.4 fL; WBC 7.69 10^3/uL (4.4-10.8)
[2022-05-30 13:07] LABS: ALT 22 U/L (16-63); AST 17 U/L (15-37); Albumin 3.6 g/dL (3.4-5.0); Alkaline Phosphatase 90 U/L (46-116); BUN 18 mg/dL (7-18); Bilirubin, Total 0.3 mg/dL (0.2-1.0); C-Reactive Protein 0.98 mg/dL (0.0-0.3); CREATININE 1.2 mg/dL (0.70-1.30); Chloride 104 mmol/L (98-107); Estimated GFR 63.85 (mL/min/1.73m2); Glucose 97 mg/dL (74-106); Sodium 141 mmol/L (136-145); Total Protein 6.8 g/dL (6.4-8.2)
== END 2022-05-30 11:08 | disposition home or self-care (01) ==
LOC: LBO 11:12
PROVIDERS: PCP Family Medicine; Visit Provider Nurse Practitioner
DX: Z79.899 Other long term (current) drug therapy (principal); M05.9 Rheumatoid arthritis with rheumatoid factor, unspecified
CPT/HCPCS: 36415; 80053; 85652; 85025; 86140

== ENCOUNTER 2022-06-20 01:39 | Outpatient (CLI) | payer MEDICARE, SELFPAY ==
--- NOTE | 2022-06-20 10:45 | DI.CT_ITS ---
Exam(s) CT SINUS WO EXAM: CT SINUS WO CLINICAL HISTORY: SINUS CONGESTION, R09.81; HIGH-RISK MED USE, Z79.899. TECHNIQUE: Imaging Protocol: Axial computed tomography images with coronal and sagittal reformatted images were created and reviewed. No IV Contrast COMPARISON: No exams were available for comparison FINDINGS: MAXILLARY SINUSES: There is mild bilateral circumferential mucosal thickening in both maxillary sinuses.No associated fl uid levels. There is no evidence of bone dehiscence. OSTIOMEATAL UNITS: Patent bilaterally ETHMOIDAL AIR CELLS: Well aerated. No mucosal thickening nor fluid levels. SPHENOID SINUSES: Well aerated. No mucosal thickening nor fluid levels. FRONTAL SINUSES: Some mucosal thickening noted in the left frontal sinus and left frontoethmoidal rec ess. NASAL SEPTUM AND TURBINATES:Nasal septum is relatively midline. No evidence of nasal septal spur. T here is mild radiation of both middle turbinates. There is no obstruction of the nasal passages. IMPRESSION: 1. Mucosal thickening the paranasal sinuses including the left frontal sinus. However, no evidence of acute sinusitis/fluid levels. 2. No evidence of bone dehiscence. RADIATION DOSE DELIVERED: 123.86mGy.cm Total DLP DATA REPOSITORY: All CT scans at this facility are submitted to the National Radiology Data Registry (NRDR) Dose Index Registry (DIR) with the [employer] (A[employer]). RADIATION OPTIMIZATION: All CT scans at this facility use at least one of these dose optimization te chniques: automated exposure control; mA and/or kV adjustment per patient size (includes targeted exa ms where dose is matched to clinical indication); or iterative reconstruction.
== END 2022-06-20 01:59 ==
LOC: DI 01:39
PROVIDERS: PCP Family Medicine; Visit Provider Nurse Practitioner
DX: R09.81 Nasal congestion (principal); Z79.899 Other long term (current) drug therapy
CPT/HCPCS: 70486

== ENCOUNTER → 2022-06-26 14:19 | Outpatient (BNVA) | payer MEDICARE, SELFPAY | PROVIDERS: PCP Family Medicine; Referring Provider Family Medicine; Visit Provider Urology | DX: N20.1 Calculus of ureter (principal) | CPT/HCPCS: 99213 ==

== ENCOUNTER 2022-09-26 02:05 | Outpatient (CLI) | payer MEDICARE, SELFPAY ==
[2022-09-26 13:48] LABS: Abs Immature Grans 0.03 10^3/uL (0.0-0.06); Absolute Basophil Count 0.05 10^3/uL (0.0-0.2); Absolute Eosinophil Count 0.34 10^3/uL (0.0-0.7); Absolute Lymphocyte Count 2.18 10^3/uL (1.2-3.4); Absolute Monocyte Count 0.68 10^3/uL (0.1-0.8); Absolute Neutrophil Count 6.75 10^3/uL (1.2-6.7); Basophils % 0.5; Eosinophils % 3.4; HCT 50.6 % (40.0-50.0); HGB 16.5 g/dL (13.5-17.5); Immature Grans % 0.3; Lymphocytes % 21.7; MCH 29.4 pg (27.0-33.0); MCHC 32.6 % (32.0-36.0); MCV 90 fL (80-95); MPV 9.6 fL (8.0-11.0); Monocytes % 6.8; Neutrophils % 67.3; Platelet Count 268 10^3/uL (130-400); RBC 5.61 10^6/uL (4.36-5.78); RDW 13.6 % (11.8-14.1); RDW-SD 45.3 fL; WBC 10.03 10^3/uL (4.4-10.8)
[2022-09-26 13:52] LABS: ESR 4 mm/hr (0-20)
[2022-09-26 14:05] LABS: ALT 24 U/L (16-63); AST 22 U/L (15-37); Albumin 3.5 g/dL (3.4-5.0); Alkaline Phosphatase 100 U/L (46-116); Anion Gap 3.4 mmol/L (3-11); BUN 16 mg/dL (7-18); Bilirubin, Total 0.4 mg/dL (0.2-1.0); C-Reactive Protein 0.53 mg/dL (0.0-0.3); CO2 32.6 mmol/L (21.0-32.0); CREATININE 1.1 mg/dL (0.70-1.30); Calcium 9.1 mg/dL (8.5-10.1); Chloride 105 mmol/L (98-107); Estimated GFR 70.88 (mL/min/1.73m2); Glucose 96 mg/dL (74-106); Potassium 3.7 mmol/L (3.5-5.1); Sodium 141 mmol/L (136-145); Total Protein 6.8 g/dL (6.4-8.2)
[2022-09-26 14:40] LABS: TSH (W/Ref FT4) 4.14 uIU/mL (0.36-3.74)
== END 2022-09-26 02:06 | disposition home or self-care (01) ==
LOC: LBO 02:06
PROVIDERS: PCP Family Medicine; Visit Provider Nurse Practitioner
DX: E03.9 Hypothyroidism, unspecified (principal); Z79.899 Other long term (current) drug therapy; M05.9 Rheumatoid arthritis with rheumatoid factor, unspecified
CPT/HCPCS: 36415; 80053; 85652; 84439; 84443; 85025; 86140

== ENCOUNTER → 2022-12-13 14:20 | Outpatient (BNVA) | payer MEDICARE, SELFPAY | PROVIDERS: PCP Family Medicine; Referring Provider Family Medicine; Visit Provider Physical Therapy Assistant | DX: Z12.11 Encounter for screening for malignant neoplasm of colon (principal) ==

== ENCOUNTER → 2022-12-31 09:38 | Outpatient (BNVA) | payer MEDICARE, SELFPAY | PROVIDERS: PCP Family Medicine; Visit Provider Internal Medicine Cardiovascular Disease | DX: Z95.5 Presence of coronary angioplasty implant and graft (principal); I42.9 Cardiomyopathy, unspecified; I25.10 Atherosclerotic heart disease of native coronary artery without angina pectoris | CPT/HCPCS: 99214 ==

== ENCOUNTER 2023-01-07 00:44 | Outpatient (CLI) | payer MEDICARE, SELFPAY ==
--- NOTE | 2023-01-07 07:00 | DI.NM_ITS ---
APPROVED REPORT Exam: Pharmacologic Patient Location: Out-Patient Room/Bed: Stress Nurse: Mely Quintanilla RN Ordering Provider:KAMILA WAITE, Contact Number: [phone] BMI: 30.68 Baseline Rhythm: Sinus Rhythm Indications: SOB, Chest pain, Cardiomyopathy Medical History Medical History: CAD, basal cell carcinoma, overweight, asthma, GERD, depression, dyspnea, HLD, HTN, hypothyroidism, peripheral neuropathy, RA, pulmonary HTN Cardiac Medications: Venlafaxine, trazadone, terazosin, temazepam, rituxian, zofran, omeprazole, nitr o, singular, meteprolol succinate, levothyroxine, isosorbise mononitrate, buproprion, symbicort, ator vastatin, amlodipine, albuterol Allergies: Lisinopril, calcium, abatacept Cardiac Risk Factors: HTN, HLD, CVD, asthma Previous Cardiac Procedures: Stent 2019, coronary artery bipass graft Pretest Chest Pain Characteristics: None Exercise History: Sedentary Physical Disabilities: None Lung Sounds: Clear to auscultation Heart Sounds: Regular, distant Stress Test Details Test: Pharmacologic stress was paired with low level exercise. Reason for pharmacologic stress test: inability to reach target heart rate ( patient on beta block er), reports signicant dyspnea on exertion. Nuclear Acquisition: Rest Tc-99m/Stress Tc-99m 1 day Rest Isotope: Tc-99m Sestamibi. Dose: 9.0 Date: 01/07/2023 Injection Time: 0845 Stress Isotope: Tc-99m Sestamibi. Dose: 30.0 Date: 01/07/2023 Injection Time: 1033 HR Resting HR Supine: 82 bpm Max Heart Rate (APMHR): 146.998835 bpm Resting HR Standin bpm Target HR (85% APMHR): 124.425741 bpm Max HR Achieved: 107 bpm % of APMHR: 73.29 Recovery HR: 98 bpm BP Resting BP Supine: 148/92 mmHg Resting BP Standin/90 mmHg Max BP: 150/90 mmHg Recovery BP: 148/72 mmHg ECG Resting ECG: Sinus Rhythm Ectopy: None Stress ECG: Sinus Tachycardia ST Change: Nondiagnostic low heart rate Arrhythmia: None Recovery ECG: Sinus Rhythm Recovery ST Change: Nondiagnostic low heart rate Recovery Arrhythmia: None Clinical Stress Symptoms: Dyspnea Angina Score: None Rate Pressure Product: 16241 Stress ECG Conclusion 1. Resting electrocardiogram showed an old anterior wall myocardial infarction 2. Patient underwent testing using a combination of low-level exercise and pharmacologic stress with regadenoson 3. Peak heart rate achieved was 73% of predicted for age 4. The electrocardiographic portion of the test was nondiagnostic 5. See MPI report Stress Test Summary STAGE HR BP SpO2 Symptoms NOTES Supine 82 148/92 94 Standing 72 150/90 1 min post Lexiscan injection 107 140/82 Mild dyspnea 3 min post Lexiscan injection 104 150/72 94 Mild dyspnea 6 min post Lexiscan injection 98 148/72 94 All symptoms resolved MPI Conclusion Myocardial perfusion is normal. There is no ischemia or evidence of prior infarction Ejection fraction is 55%, wall motion is normal Radiologist Interpretation Radiologist agrees with Knitted Goods Shaper's Interpretation. Radiologist Interpretation by: Radha Mayen MD Interpretation Date/Time: 01/07/2023 17:11:10
[2023-01-07] MEDS: Regadenoson 0.4 MG/5 ML SYR IVP (11:04)
== END 2023-01-07 01:04 ==
LOC: DI 00:44
PROVIDERS: PCP Family Medicine; Visit Provider Internal Medicine Cardiovascular Disease
DX: I25.10 Atherosclerotic heart disease of native coronary artery without angina pectoris (principal); I25.810 Atherosclerosis of coronary artery bypass graft(s) without angina pectoris; I42.9 Cardiomyopathy, unspecified; R06.02 Shortness of breath
CPT/HCPCS: 78452; 93016; 93018; 93017; J2785

== ENCOUNTER 2023-01-10 01:43 | Outpatient (CLI) | payer MEDICARE, SELFPAY ==
--- NOTE | 2023-01-10 10:30 | DI.DEXA_ITS ---
Exam(s) XR DEXA BONE DENSITY W/WO DARRELL EXAM: XR DEXA BONE DENSITY W/WO DARRELL CLINICAL HISTORY: STEROID-INDUCED OSTEOPOROSIS, M81.8; LONG-TERM USE OF IMMUNOMODULATORS AND TECHNIQUE: Routine DEXA evaluation of the lumbar spine, hip, or forearm. COMPARISON: Prior DEXA scan April [address] RENAL COLIC WO from 03/07/2021 FINDINGS: Performed on a [employer] unit. Lateral image: There is a wedge fracture of T12, not new. This was evident CT scan of March 2021. No height loss progression since that time. Lumbar Spine total T-score: -0.2. Prior 2015 reading was -1.5. Hip total T-score:-0.3. The prior 2015 reading was -0.5 Independent reading at the level of the femoral neck yields T-score of -0.9 Forearm total T-score: -1.4 IMPRESSION: Bone mineral density measures in the normal range for the hip and lumbar spine but is in the osteopen ia range for the forearm bones.. Fracture risk is low-moderate Note: Any spine fracture indicates 5x risk for subsequent spine fracture and 2x risk for subsequent h ip fracture. World Health Organization criteria for BMD interpretation classify patients: Normal...... T- Score at or above -1.0 Osteopenic... T- Score between -1.0 and -2.5 Osteoporosis... T-Score at or below -2.5
== END 2023-01-10 02:03 ==
LOC: DI 01:43
PROVIDERS: PCP Family Medicine; Visit Provider Family Medicine
DX: M81.8 Other osteoporosis without current pathological fracture (principal); Z79.69 Long term (current) use of other immunomodulators and immunosuppressants
CPT/HCPCS: 77080

== ENCOUNTER 2023-02-19 02:21 | Outpatient (CLI) | payer MEDICARE, SELFPAY ==
--- NOTE | 2023-02-19 | DI.RAD_ITS ---
Exam(s) XR HIP LT COMPLETE AP PELVIS EXAM: XR HIP LT COMPLETE AP PELVIS CLINICAL HISTORY: SACROILIAC JOINT PAIN LT, M53.3, LT HIP PAIN, M25.559. TECHNIQUE: 2D digital imaging was performed of the left hip. Three views were obtained. AP pelvis and lateral left hip views were obtained. FINDINGS: BONES: No acute fracture is present. No bony destructive lesion is seen. JOINTS: No dislocation present. There is joint space narrowing of the hips bilaterally. There is mil d acetabular spurring on the left hip. The sacroiliac joints and symphysis pubis are unremarkable. SOFT TISSUE: Normal. IMPRESSION: Degenerative changes of the hips bilaterally. DATA REPOSITORY: RADIATION DOSE DELIVERED:
--- NOTE | 2023-02-19 | DI.RAD_ITS ---
Exam(s) XR SACROILIAC JOINTS EXAM: XR SACROILIAC JOINTS CLINICAL HISTORY: SACROILIAC JOINT PAIN LT, M53.3, LT HIP PAIN, M25.559. TECHNIQUE: 2D digital imaging was performed. Five images were obtained. COMPARISON: No exams were available for comparison FINDINGS: Bones: No fracture is present. No bony destructive lesion is seen. Alignment is satisfactory. SI Joint:No fusion, erosions or sclerosis is seen. Soft Tissue: Normal. IMPRESSION: Normal radiographs of the SI Joints. DATA REPOSITORY: RADIATION DOSE DELIVERED:
== END 2023-02-19 02:41 ==
LOC: DI 02:21
PROVIDERS: PCP Family Medicine; Visit Provider Family Medicine
DX: M16.0 Bilateral primary osteoarthritis of hip (principal)
CPT/HCPCS: 72202; 73502

== ENCOUNTER 2023-04-08 03:03 | Outpatient (CLI) | payer MEDICARE, SELFPAY ==
[2023-04-08] MEDS: Albuterol HFA 18 GM 200 PUFF INH IH (11:21)
[2023-04-08] MEDS: Inhaler, Assist Device 1 EACH MC (11:21)
--- NOTE | 2023-04-08 13:45 | W.PFT ---
Date of service: 04/08/23 Time of Service: 09:59 Pulmonary Function Test Result Indications: Dyspnea Interpretation Spirometry: There is no airflow limitation. No significant bronchodilator response. MIP and MEP are decreased. Lung Volumes: Mild restrictive lung disease Diffusion Capacity: Elevated diffusion Airway Pressure: Normal airways resistance Impression Mild restrictive disease with reduced muscle pressures Clinical Correlation therefore is recommended.
== END 2023-04-08 03:04 | disposition home or self-care (01) ==
LOC: RT 03:04
PROVIDERS: PCP Family Medicine; Visit Provider Student in an Organized Health Care Education/Training Program
DX: R06.00 Dyspnea, unspecified (principal)
CPT/HCPCS: 94060; 94726; 94729

== ENCOUNTER 2023-04-09 20:38 | Outpatient (REF) | payer MEDICARE, SELFPAY | END 2023-04-09 20:39 | disposition home or self-care (01) | LOC: LBN 20:38 | PROVIDERS: PCP Family Medicine; Visit Provider Student in an Organized Health Care Education/Training Program | DX: R05.3 Chronic cough (principal) | CPT/HCPCS: 87116; 87206; 87070; 87205 ==

== ENCOUNTER 2023-04-11 18:52 | Outpatient (REF) | payer MEDICARE, SELFPAY | END 2023-04-11 18:53 | disposition home or self-care (01) | LOC: LBN 18:52 | PROVIDERS: PCP Family Medicine; Visit Provider Student in an Organized Health Care Education/Training Program | DX: R05.3 Chronic cough (principal) | CPT/HCPCS: 87116; 87206 ==

== ENCOUNTER 2023-04-12 19:10 | Outpatient (REF) | payer MEDICARE, SELFPAY ==
--- OUTSIDE RECORDS SUMMARY | 2023-04-12 19:19 | XMS_ITS | Continuity of Care Document ---
Author Name Unknown Organization [facility] Address [address] [place] [address] Care Team Providers Care Communications Writer Name Role Phone ALLEN LIAO D.O. Primary Care Physician Unavailable Encounter [facility]BR [id number] Date(s): 11/14/22 - 11/14/22 [facility] [address] [place] [address]- [place] Encounter Diagnosis Basal cell carcinoma(Discharge Diagnosis) - 11/13/22 Discharge Disposition: Home or Self Care Attending Physician: DONAVAN Spaulding Allergies, Adverse Reactions, Alerts Substance Reaction Severity Status lisinopril Cough Mild Active Levothyroxine Sodium Abdominal pain Mild Activ e Calcium 1 Kidney stone Moderate Active Orencia Severe Active 1kidney stones Assessment and Plan Future Appointments Medications acetaminophen 500 mg =, Oral, every 6 hr, 0 Refill(s) Start Date: 09/20/22 Status: Ordered amLODIPine 2.5 mg =, Oral, Daily, 0 Refill(s) Start Date: 09/20/22 Status: Ordered aspirin 81 mg oral capsule 81 mg = 1 cap, Oral, Daily, do not exceed 48 capsules in 24 hours, # 30 cap, 0 Refill(s) Start Date: 09/20/22 Status: Ordered atorvastatin 10 mg oral tablet 10 mg = 1 tab, Oral, Daily, # 30 tab, 0 Refill(s) Start Date: 09/20/22 Status: Ordered diclofenac sodium 1% topical cream 0 Refill(s) Start Date: 09/20/22 Status: Ordered metoprolol succinate 25 mg oral capsule, extended release 25 mg = 1 cap, Oral, Daily, # 30 cap, 0 Refill(s) Start Date: 09/20/22 Status: Ordered metroNIDAZOLE 1% topical gel 1 yared, Topical, Daily, # 55 g, 0 Refill(s) Start Date: 09/20/22 Status: Ordered montelukast 10 mg oral tablet 10 mg = 1 tab, Oral, Daily, # 30 tab, 0 Refill(s) Start Date: 09/20/22 Status: Ordered multivitamin adult, oral tablet 1 tab, Oral, Daily, # 30 tab, 0 Refill(s) Start Date: 09/20/22 Status: Ordered Nitrostat 0.4 mg sublingual tablet 0.4 mg = 1 tab, SL, every 5 min, PRN as needed for chest pain, # 100 tab, 0 Refill(s) Start Date: 09/20/22 Status: Ordered omeprazole 40 mg =, Oral, Daily, 0 Refill(s) Start Date: 09/20/22 Status: Ordered ProAir HFA 90 mcg/inh inhalation aerosol 1 puffs, Inhale, every 4 hr, PRN as needed for wheezing, # 8.5 g, 0 Refill(s) Start Date: 09/20/22 Status: Ordered Symbicort 160 mcg-4.5 mcg/inh inhalation aerosol 2 puffs, Inhale, BID, # 6 g, 0 Refill(s) Start Date: 09/20/22 Status: Ordered Synthroid 50 mcg (0.05 mg) oral tablet 50 mcg = 1 tab, Oral, Daily, # 30 tab, 0 Refill(s) Start Date: 09/20/22 Status: Ordered terazosin 2 mg oral capsule 2 mg = 1 cap, Oral, every day at bedtime, # 90 cap, 0 Refill(s) Start Date: 09/20/22 Status: Ordered traZODone 50 mg =, Oral, every night at bedtime, 0 Refill(s) Start Date: 09/20/22 Status: Ordered venlafaxine 150 mg =, Oral, Daily, 0 Refill(s) Start Date: 09/20/22 Status: Ordered Vitamin C 500 mg oral tablet 500 mg = 1 tab, Oral, Daily, # 30 tab, 0 Refill(s) Start Date: 09/20/22 Status: Ordered Vitamin D with Minerals oral tablet 1 tab, Oral, Daily, # 30 tab, 0 Refill(s) Start Date: 09/20/22 Status: Ordered Wellbutrin XL 150 mg/24 hours oral tablet, extended release 150 mg = 1 tab, Oral, every 24 hr, # 30 tab, 0 Refill(s) Start Date: 09/20/22 Status: Ordered Problem List Condition Confirmation Course Effective Dates Status H ealth Status Informant Anxiety Confirmed Active Arthritis Confirmed Active Basal cell carcinoma Confirmed Active Epistaxis Confirmed Active Blepharitis Confirmed Active BPH - benign prostatic hyperplasia Confirmed Active CAD - Coronary artery disease Confirmed Active Cardiomyopathy Confirmed Active Chronic cough Confirmed Active Vertebral compression fracture 1 Confirmed Active Constipation Confirmed Active Depression Confirmed Active Diverticular disease Confirmed Active Dysphagia 2 Confirmed Active SOB (shortness of breath) Confirmed Active Elevated diaphragm Confirmed Active GERD (gastroesophageal reflux disease) Confirmed Active H/O: asthma Confirmed Active H/O: rheumatoid arthritis Confirmed Active CARRANZA - Headache Confirmed Active Heart murmur Confirmed Active History of COVID-19 3 Confirmed 08/02/21 Active History of ventral hernia repair Confirmed Active History of osteoporosis Confirmed Active History of partial colectomy Confirmed Active Hyperlipidemia Confirmed Active Hypertension Confirmed Active Hypothyroidism Confirmed Active Insomnia Confirmed Active Melena Confirmed Active Osteoporosis Confirmed Active Peripheral neuropathy 4 Confirmed Active PONV - Postoperative nausea and vomiting Confirmed Active Prediabetes Confirmed Active Pulmonary hypertension Confirmed Active Rosacea Confirmed Active Sicca syndrome Confirmed Active Ureterolithiasis Confirmed Active 1T12 2occasional 3mild symptoms 4bilat hands Procedures Procedure Date Related Diagnosis Body Site Status Basal Cell Excision Frozen S ection (Right, Ear) 1 10/25/22 Completed Cardiac catheterization 2 09/01/17 Completed Cataract surgery Complete d Colonoscopy Completed EGD - Esophagogastroduodenoscopy Completed Partial colectomy Complet ed 1auto-populated from documented surgical case 2x1 stent Social History Social History Type Response Tobacco Never tobacco user T obacco Use:. Sex Physician Outpatient Note * DONAVAN Spaulding: PERFORM, MODIFY, MODIFY DONAVAN Spaulding: MODIFY, MODIFY DONAVAN Spaulding: Maria Isabel Mcclure: MODIFY Event Display: Office Clinic Note Physician Authored Date: [id number] LEEANNE AGEE :1950 Age:72 years Sex:Male Visit Date:11/14/2022 Primary Care Physician: ALLEN LIAO D.O. History of Present Illness Established patient in the office today for continued skin graft debridement. Patient has basal cell carcinoma removed on 10/25/2022 from the right post auricular. Patient was instructed to continue care with peroxide and ointment with scar massage. Patient has been using the Bactroban and peroxidestill. Review of Systems Negative for: no new cardiac, respiratory, GI, , hematologic, neurologic, psychological, allergic, traumatic or endocrine problems except as listed above Physical Exam GENERAL APPEARANCE:??The patient is awake, alert, and oriented and in no acute distress, Appears nutritionally sound, Healthy in appearance, Voice is strong, with no stridor or stertor, Handling secretions without difficulty.?PSYCH:??affect normal, good eye contact, oriented to person, oriented to place, oriented to time.?NEURO:??CN's II-XII grossly intact, Gait is normal,?HEENT:??The patient is normocephalic with a normal facies?NECK:??There is no palpable lymphadenopathy.?HEART:??regular rate and rhythm.?LUNGS:??clear to auscultation bilaterally, no wheezes/rhonchi/rales.?SKIN:??well healing skin graft donor site??left neck??and skin??graft??right?? posterior ear. ?MUSCULOSKELETAL:??normal gait and station.?? Procedure After discussing the treatment options and obtaining consent, we proceeded with full thickness debridement of the skin graft. All nonviable soft tissue was removed with sharp dissection leading to healthy bleeding tissue. There was no complications or excessive bleeding. Ointment and a dressing wasapplied. The patient left the office in stable condition.?? Assessment/Plan 1.??Basal cell carcinoma??C44.91 Skin graft debridement was performed as above.?? Area is healing well. ??No evidence of infection. Will follow up in two weeks, likely last debridement. Problem List/Past Medical History Ongoing Anxiety Arthritis Basal cell carcinoma Blepharitis BPH - benign prostatic hyperplasia CAD - Coronary artery disease Cardiomyopathy Chronic cough Constipation Depression Diverticular disease Dysphagia Elevated diaphragm Epistaxis GERD (gastroesophageal reflux disease) H/O: asthma H/O: rheumatoid arthritis CARRANZA - Headache Heart murmur History of COVID-19 History of osteoporosis History of partial colectomy History of ventral hernia repair Hyperlipidemia Hypertension Hypothyroidism Insomnia Melena Osteoporosis Peripheral neuropathy PONV - Postoperative nausea and vomiting Prediabetes Pulmonary hypertension Rosacea Sicca syndrome SOB (shortness of breath) Ureterolithiasis Vertebral compression fracture Historical No qualifying data Procedure/Surgical History ???Basal Cell Excision Frozen Section (Right, Ear) (10/25/2022)???Cardiac catheterization (09/02/2017)???Cataract surgery???Colonoscopy???EGD - Esophagogastroduodenoscopy???Partial colectomy Medications !-Keflex 500 mg oral capsule, 500 mg= 1 cap, Oral, every 12 hr acetaminophen, 500 mg, Oral, every 6 hr amLODIPine, 2.5 mg, Oral, Daily aspirin 81 mg oral capsule, 81 mg= 1 cap, Oral, Daily atorvastatin 10 mg oral tablet, 10 mg= 1 tab, Oral, Daily diclofenac sodium 1% topical cream metoprolol succinate 25 mg oral capsule, extended release, 25 mg= 1 cap, Oral, Daily metroNIDAZOLE 1% topical gel, 1 yared, Topical, Daily montelukast 10 mg oral tablet, 10 mg= 1 tab, Oral, Daily multivitamin adult, oral tablet, 1 tab, Oral, Daily Nitrostat 0.4 mg sublingual tablet, 0.4 mg= 1 tab, SL, every 5 min, PRN omeprazole, 40 mg, Oral, Daily ProAir HFA 90 mcg/inh inhalation aerosol, 1 puffs, Inhale, every 4 hr, PRN Symbicort 160 mcg-4.5 mcg/inh inhalation aerosol, 2 puffs, Inhale, BID Synthroid 50 mcg (0.05 mg) oral tablet, 50 mcg= 1 tab, Oral, Daily terazosin 2 mg oral capsule, 2 mg= 1 cap, Oral, every night at bedtime traZODone, 50 mg, Oral, every night at bedtime venlafaxine, 150 mg, Oral, Daily Vitamin C 500 mg oral tablet, 500 mg= 1 tab, Oral, Daily Vitamin D with Minerals oral tablet, 1 tab, Oral, Daily Wellbutrin XL 150 mg/24 hours oral tablet, extended release, 150 mg= 1 tab, Oral, every 24 hr Allergies Orencia Calcium??(Kidney stone) Levothyroxine Sodium??(Abdominal pain) lisinopril??(Cough) Social History Alcohol Never Electronic Cigarette/Vaping Electronic Cigarette Use: Never. Substance Use Never Tobacco Never tobacco user Tobacco Use:. Electronically Signed on 11/14/22 09:55 AM DONAVAN Spaulding Electronically Signed on 11/14/22 09:58 AM DONAVAN Spaulding Patient Care team information Care Team Related Persons Name: LISA AGEE Address: Home [address] [place] [phone] [facility]
--- OUTSIDE RECORDS SUMMARY | 2023-04-12 19:20 | XMS_ITS | Continuity of Care Document ---
Author Name Unknown Organization [facility] Address [address] [place] [id number] Care Team Providers Care Organic Extractions Technician Name Role Phone ALBARO LIAO D.O. Primary Care Physician Unavailable Encounter [facility] FIN NBR [id number] Date(s): 10/25/22 - 10/25/[address] [address]- [place] Encounter Diagnosis Basal cell carcinoma (BCC)(Discharge Diagnosis) - 10/25/22 Discharge Disposition: Home or Self Care Attending Physician: Albaro Liao DO Admitting Physician: Albaro Liao DO Referring Physician: Albaro Laio DO Allergies, Adverse Reactions, Alerts Substance Reaction Severity Status lisinopril Cough Mild Active Levothyroxine Sodium Abdominal pain Mild Activ e Calcium 1 Kidney stone Moderate Active Orencia Severe Active 1kidney stones Assessment and Plan Future Appointments Functional Status 10/25/22 Family Member Travel History No recent t ravel Recent Travel History No recent travel Other exposure to Infectious Disease Non e Medications !-Keflex 500 mg oral capsule 500 mg = 1 cap, Oral, every 12 hr, # 10 cap, 0 Refill(s), Pharmacy: [facility], 180, cm, 10/19/22 15:43:00 EST, Height/Length Dosing, 97, kg, 10/19/22 15:43:00 EST, Weight Dosing Start Date: 10/25/22 Stop Date: 10/30/22 Status: Ordered acetaminophen 500 mg =, Oral, every 6 [...] Informant Anxiety Confirmed Active Arthritis Confirmed Active Epistaxis Confirmed Active Blepharitis Confirmed [...] 1auto-populated from documented surgical case 2x1 stent Vital Signs Most recent to oldest [Reference Range]: 1 2 3 Temperature Temporal Artery [36-38 Deg C] 37.0 Deg C (10/25/22 2:20 PM) 37.0 Deg C (10/25/22 1:49 PM) 37.0 Deg C (10/25/22 10:37 AM) Temperature Temporal Artery (DegF) [97.3-100 Deg F] 98.6 Deg F (10/25/22 1:49 PM) Peripheral Pulse Rate [60-100 bpm] 94 bpm (10/25/22 2:15 PM) 94 bpm (10/25/22 1:53 PM) 101 bpm *HI* (10/25/22 1:49 PM) Heart Rate Monitored [60-100 bpm] 98 bpm (10/25/22 1:40 PM) 97 bpm (10/25/22 1:35 PM) 100 bpm (10/25/22 1:30 PM) Respiratory Rate [12-24 br/min] 18 br/min (10/25/22 10:37 AM) Blood Pressure [90-140/60-90 mmHg] 158/90mmHg *HI* (10/25/22 2:15 PM) 145/88mmHg *HI* (10/25/22 1:53 PM) 145/88mmHg *HI* (10/25/22 1:49 PM) Mean Arterial Pressure, Cuff [65-140 mmHg] 113 mmHg (10/25/22 2:15 PM) 107 mmHg (10/25/22 1:53 PM) 107 mmHg (10/25/22 1:49 PM) Mean Arterial Pressure Cuff 107 mmHg (10/25/22 2:15 PM) 103 mmHg (10/25/22 1:53 PM) 103 mmHg (10/25/22 1:49 PM) Weight 97.000 kg (10/19/22 3:29 PM) Weight Dosing 97.000 kg (10/19/22 3:29 PM) Height 180.000 cm (10/19/22 3:29 PM) Height/Length Dosing 180.000 cm (10/19/22 3:29 PM) Social History Social History Type Response Tobacco Never tobacco user T obacco Use:. Sex Discharge instructions * Event Display: Discharge Instructions History and physical note * Event Display: History and Physical Update Patient Care team information Care Team Related Persons Name: LISA AGEE Address: Home [address] [place] [address] [address] [place], [place] [id number] [facility]
--- OUTSIDE RECORDS SUMMARY | 2023-04-12 19:20 | XMS_ITS | Continuity of Care Document ---
Author Name Unknown Organization [facility] Address [address] [place] [address] Care Team Providers Care Project Portfolio Analyst Name Role Phone ALLEN LIAO D.O. Primary Care Physician Unavailable [facility]counter [facility] [id number] Date(s): 10/30/22 - 10/30/22 [facility] [address] [place], [place] [address] Encounter Diagnosis History of basal cell carcinoma (BCC)(Discharge Diagnosis) - 10/25/22 Postoperative examination(Discharge Diagnosis) - 10/30/22 Discharge Disposition: Home or Self Care Attending Physician: DONAVAN Spaulding Allergies, Adverse Reactions, Alerts Substance Reaction Severity Status lisinopril Cough Mild Active Levothyroxine Sodium Abdominal pain Mild Activ e Calcium 1 Kidney stone Moderate Active Orencia Severe Active 1kidney stones Assessment and Plan Future Appointments Medications !-Keflex 500 mg oral capsule 500 mg = 1 cap, Oral, every 12 hr, # 10 cap, 0 Refill(s), Pharmacy: [facility], 180, cm, 10/19/22 15:43:00 [...] Note * DONAVAN Spaulding: PERFORM, MODIFY, MODIFY Event Display: Office Clinic Note Physician Authored Date: [id number] LEEANNE AGEE DOB:1950 Age:72 years Sex:Male Visit Date:10/30/2022 Primary Care Physician: ALLEN LIAO D.O. Chief Complaint Post op History of Present Illness Patient was seen in the OR on 10/25/22 for Excision with frozen section of BCC right post auricular area. He is here today for post op. Patient notes that he is doing well. Patient has two of his Keflex left to take. Review of Systems Fatigue?? Negative.?? Fever?? Negative.?? Weight Loss?? Negative.?? Snoring?? Negative.?? Hoarseness?? Negative.? Cough?? Negative.??Rashes?? Negative.?? Eczema?? Negative.?? Headaches?? Negative.?? Thyroid Problems?? Negative.? Environmental allergies?? Negative.?? Hay Fever?? Negative.?? Reflux?? Negative.?? Sleep apnea?? Negative.?? Physical Exam GENERAL APPEARANCE:??The patient is awake, alert, and oriented and in no acute distress, Appears nutritionally sound, Healthy in appearance, Voice is strong, with no stridor or stertor, Handling secretions without difficulty.?NECK:??There is no palpable lymphadenopathy.?HEART:??regular rate and rhythm.?LUNGS:??clear to auscultation bilaterally, no wheezes/rhonchi/rales.?SKIN:??Well-healing??graft donor site left neck,??pressure dressing removed,??skin graft healing well right posterior ear ?MUSCULOSKELETAL:??normal gait and station.?? Procedure The patient has been seen today postoperatively for evaluation and suture removal. The incision site is healing well, there is no evidence of excessive scar contracture, dehiscence or purulence. I have recommended postoperative scar massage with either a cocoa butter lotion or [id number] scarmassage lotions. Sutures were removed without complication. The patient tolerated the procedure well Assessment/Plan 1.??History of basal cell carcinoma (BCC)??Z85.828 Well-healing surgical site right posterior ear.?? No skin??graft debridement??was performed today. ??Sutures removed from the left neck and??Steri-Strips placed.?? Counseled on ongoing wound care wayne for skin graft debridement right ear??in 1 week. 2.??Postoperative examination??Z09 Problem List/Past Medical History Ongoing Anxiety Arthritis Blepharitis BPH - benign prostatic hyperplasia CAD [...] tobacco user Tobacco Use:. Electronically Signed on 10/30/22 01:25 PM DONAVAN Spaulding Patient Care team information Care Team Related Persons Name: LISA AGEE Address: [address] [phone] [facility]
--- OUTSIDE RECORDS SUMMARY | 2023-04-12 19:20 | XMS_ITS | Continuity of Care Document ---
Author Name Unknown Organization [facility] Address [address] [place] [id number] Care Team Providers Care Side Panel Padder Name Role Phone ALBARO LIAO D.O. Primary Care Physician Unavailable Encounter [facility] FIN NBR [id number] Date(s): 09/21/22 - 09/21/[address] [address]- [place] Discharge Disposition: Home or Self Care Attending Physician: Albaro Liao DO Admitting Physician: Albaro Liao DO Referring Physician: Arelis Michele Allergies, Adverse Reactions, Alerts Substance Reaction Severity Status lisinopril Cough Unknown Active Levothyroxine Sodium Unknown Active Calcium 1 Unknown Active Orencia Severe Active 1kidney stones Medications acetaminophen 500 mg =, Oral, every [...] Active Epistaxis Confirmed Active Blepharitis Confirmed Active Vertebral compression fracture 1 Confirmed Active Depression Confirmed Active SOB (shortness of breath) Confirmed Active GERD (gastroesophageal reflux disease) Confirmed Active History of ventral hernia repair Confirmed Active History of partial colectomy Confirmed Active Hyperlipidemia Confirmed Active Hypertension Confirmed Active Hypothyroidism Confirmed Active Insomnia Confirmed Active Melena Confirmed Active Osteoporosis Confirmed Active Peripheral neuropathy Confirmed Active Prediabetes Confirmed Active Rosacea Confirmed Active 1T12 Social History Social History Type Response Tobacco Never tobacco user T obacco Use:. Sex Patient Care team information Personnel Name: ALBARO LIAO D.O.
--- OUTSIDE RECORDS SUMMARY | 2023-04-12 19:20 | XMS_ITS | Continuity of Care Document ---
Author Name Unknown Organization [facility] Address [address] [place] [address] Care Team Providers Care Utility Engineer Name Role Phone ALLEN LIAO D.O. Primary Care Physician Unavailable Encounter [facility] NBR [id number] Date(s): 11/05/22 - 11/05/22 [facility] [address] [place] [address]- Encounter Diagnosis Visit for wound care(Discharge Diagnosis) - 11/05/22 Discharge Disposition: Home or Self Care Attending [...] hr, # 10 cap, 0 Refill(s), Pharmacy: [facility], 180, cm, 10/19/22 15:43:00 EST, Height/Length [...] Display: Office Clinic Note Physician Authored Date: [id number] LEEANNE AGEE :1950 Age:72 years Sex:Male Visit Date:11/05/2022 Primary Care Physician: ALLEN LIAO D.O. Chief Complaint skin graft check History of Present Illness Patient was last seen in out office on 10/30/22 for post op. He had excision with frozen section of BCC right post auricular area.He is here today for continued skin graft debridement Review of Systems Fatigue?? Negative.?? Fever?? Negative.?? [...] rate and rhythm.?LUNGS:??clear to auscultation bilaterally, no wheezes/rhonchi/rales.?SKIN:??Well-healing skin graft donor site left neck??sutures removed prior visit.??No dehiscence or infection.?? Right posterior with??full- thickness skin graft. Procedure Full Thickness Debridement After discussing the treatment options and obtaining consent, we proceeded with full thickness debridement of the skin graft. All nonviable soft tissue was removed with sharp dissection leading to healthy bleeding tissue. There was no complications or excessive bleeding. Ointment and a dressing was applied. The patient left the office in stable condition.. Assessment/Plan Postoperative exam??for wound care and skin graft debridement:??Treatment was performed as above. ??Recommend??recheck??in 7 to 10 days for further debridement. ??Counseled??on use of??daily peroxideand twice daily??mupirocin. ??Continue scar massage left neck. Problem List/Past Medical History Ongoing Anxiety Arthritis [...] tobacco user Tobacco Use:. Electronically Signed on 11/05/22 10:24 AM DONAVAN Spaulding Patient Care team information Care Team Related Persons Name: LISA AGEE Address: Home [address] [place] [phone] [facility]
--- OUTSIDE RECORDS SUMMARY | 2023-04-12 19:20 | XMS_ITS | Continuity of Care Document ---
Author Name Unknown Organization [facility] Address [address] [place] [address] Care Team Providers Care Bull Rider Name Role Phone ALLEN LIAO D.O. Primary Care Physician Unavailable Encounter [facility] NBR [id number] Date(s): 03/20/23 - 03/20/23 [facility] [address] [place], [place] [address] Encounter Diagnosis Hx of basal cell carcinoma(Discharge Diagnosis) - 03/15/23 Neoplasm of skin(Discharge Diagnosis) - 03/15/23 Discharge Disposition: Home or Self Care Attending Physician: DONAVAN Spaulding Allergies, Adverse Reactions, Alerts Substance Reaction Severity Status lisinopril Cough Mild Active Levothyroxine Sodium Abdominal pain Mild Activ e Calcium 1 Kidney stone Moderate Active Orencia Severe Active 1kidney stones Assessment and Plan Future Appointments Functional Status 03/20/23 Other exposure to Infectious Disease Non e Medications acetaminophen 500 mg =, Oral, every [...] 0 Refill(s) Start Date: 09/20/22 Status: Ordered Efudex 5% topical cream 1 yared, Topical, BID, # 40 g, 1 Refill(s), Pharmacy: [id number], 180, cm, 10/19/22 15:43:00 EST, Height/Length Dosing, 97, kg, 10/19/22 15:43:00 EST, Weight Dosing Start Date: 03/20/23 Stop Date: 05/01/23 Status: Ordered metoprolol succinate 25 mg oral [...] Most recent to oldest [Reference Range]: 1 Weight 94.80 kg (03/20/23 9:55 AM) Weight Measured (lbs) 208.998 lb (03/20/23 9:55 AM) [place] Body Weight Calculated 74.992 kg (03/20/23 9:55 AM) Height 180 cm (03/20/23 9:55 AM) Height/Length Measured (inches) 70.87 in (03/20/23 9:55 AM) BSA Measured 2.18 m2 (03/20/23 9:55 AM) Body Mass Index 29.26 kg/m2 (03/20/23 9:55 AM) Social History Social History Type Response Tobacco Never tobacco user T obacco Use:. Sex Physician Outpatient Note * DONAVAN Spaulding: MODIFY, PERFORM DONAVAN Spaulding: PERFORM Obdulia Christensen: MODIFY Event Display: Office Clinic Note Physician Authored Date: [id number] LEEANNE AGEE :1950 Age:72 years Sex:Male Visit Date:03/20/2023 Primary Care Physician: ALLEN LIAO D.O. Chief Complaint Established- Skin check History of Present Illness Established patient in the office for??a??3 month skin check. Patient was last in the office 11/28/22 for a skin graft check. Patient had BCC removed from the right post-auricular on 10/25/22. Patient notes that he has no spots of concern. Patient notes that he is out in the sun a lot and does wearsunscreen. Patient notes that there is no family history of skin cancer.??Patient notes that his??skin??graft and surgical site??healed really well. Review of Systems Negative for: no new cardiac, respiratory, GI, , hematologic, neurologic, psychological, allergic, traumatic or endocrine problems except as listed above Physical Exam Vitals & Measurements HT:??180??cm?? WT:??94.80??kg?? BMI:??29.26?? BSA:??2.18?? GENERAL APPEARANCE:??The patient is awake, alert, and oriented and in no acute distress, Appears nutritionally sound, Healthy in appearance, Voice is strong, with no stridor or stertor, Handling secretions without difficulty.?PSYCH:??affect normal, good eye contact, oriented to person, oriented to place, oriented to time.?NEURO:??CN's II-XII grossly intact, Gait is normal, The patient has endpoint nystagmus only.?HEENT:??The patient is normocephalic with a normal facies?NECK:??There is no palpable lymphadenopathy.?HEART:??regular rate and rhythm.?LUNGS:??clear to auscultation bilaterally, no wheezes/rhonchi/rales.?SKIN:??Actinic changes to the left cheek, posterior neck/upper back,??right preauricular??skin. ?MUSCULOSKELETAL:??normal gait and station.?? Images 2023-03-20 10:09:28 2023-03-20 10:09:44 2023-03-20 10:10:08 Assessment/Plan 1.??Hx of basal cell carcinoma??Z85.828 2.??Neoplasm of skin??D49.2 Abnormal skin growth right preauricular concerning for possible early skin neoplasm. ??Recommend treatment with Efudex??twice daily for 21 days on this area as well as??left cheek and??consideration for??posterior neck versus??treating this area after recheck??when not in the summer months.?? Most concerning area is the right preauricular and if this has failed to improve with follow-up will recommend biopsy??for further evaluation.?? Efudex instructions were reviewed and prescription sent??as he no longer has supply at home. Problem List/Past Medical History Ongoing Anxiety Arthritis [...] catheterization (09/02/2017)???Cataract surgery???Colonoscopy???EGD - Esophagogastroduodenoscopy???Partial colectomy Medications acetaminophen, 500 mg, Oral, every 6 hr [...] tobacco user Tobacco Use:. Electronically Signed on 03/20/23 12:35 PM DONAVAN Spaulding Patient Care team information Care Team Related Persons Name: LISA AGEE Address: Home [address] [place] [address] [address] [place], [place] [id number] [facility]
--- OUTSIDE RECORDS SUMMARY | 2023-04-12 19:20 | XMS_ITS | Continuity of Care Document ---
Author Name Unknown Organization [facility] Address [address] [place] [address] Care Team Providers Care Paper Maker Name Role Phone ALBARO LIAO D.O. Primary Care Physician Unavailable Encounter [facility] NBR [id number] Date(s): 09/21/22 - 09/21/22 [facility] [address] [place], [place] [address] Encounter Diagnosis AK (actinic keratosis)(Discharge Diagnosis) - 09/20/22 Basal cell carcinoma(Discharge Diagnosis) - 09/20/22 Neoplasm of skin(Discharge Diagnosis) - 09/21/22 Discharge Disposition: Home or Self Care Attending Physician: Albaro Liao DO Allergies, Adverse Reactions, Alerts Substance Reaction Severity Status lisinopril Cough Unknown Active Levothyroxine Sodium Unknown Active Calcium 1 Unknown Active Orencia Severe Active 1kidney stones Functional Status 09/21/22 Other exposure to Infectious Disease Non e [...] Prediabetes Confirmed Active Rosacea Confirmed Active 1T12 Vital Signs Most recent to oldest [Reference Range]: 1 Weight 95.25 kg (09/21/22 11:04 AM) Weight Measured (lbs) 209.99 lb (09/21/22 11:04 AM) [place] Body Weight Calculated 76.803 kg (09/21/22 11:04 AM) Height 182 cm (09/21/22 11:04 AM) Height/Length Measured (inches) 71.65 in ch (09/21/22 11:04 AM) BSA Measured 2.19 m2 (09/21/22 11:04 AM) Body Mass Index 28.76 kg/m2 (09/21/22 11:04 AM) Social History Social History Type Response Tobacco Never tobacco user T obacco Use:. Sex Physician Outpatient Note * Maria Isabel Curtis: MODIFY, MODIFY, MODIFY Albaro Laio DO: PERFORM, MODIFY Albaro Liao DO: MODIFY Event Display: Office Clinic Note Physician Authored Date: [id number] LEEANNE AGEE :1950 Age:71 years Sex:Male Visit Date:09/21/2022 Primary Care Physician: ALBARO LIAO D.O. Chief Complaint Established- 4 mo recheck face lesions History of Present Illness Established patient in the office today for a 4 month check post Efudex on the right side of the face. Patient does have positive basal cell carcinoma on the right post-auricular. Patient is coming in to compare the right side to the left side, as he had widespread AK's on the right. Patient notes that his biopsy did heal up. Patient notes that he did use the Efudex and he notes that the spots are mostly gone. Patient did just do one round of the Efudex. Review of Systems Negative for: no new cardiac, respiratory, GI, , hematologic, neurologic, psychological, allergic, traumatic or endocrine problems except as listed above Physical Exam Vitals & Measurements HT:??182??cm?? WT:??95.25??kg?? BMI:??28.76?? BSA:??2.19?? GENERAL APPEARANCE:??The patient is awake, alert, and oriented and in no acute distress, Appears nutritionally sound, Healthy in appearance, Voice is strong, with no stridor or stertor, Handling secretions without difficulty.?PSYCH:??affect normal, good eye contact, oriented to person, oriented to place, oriented to time.?NEURO:??CN's II-XII grossly intact, Gait is normal, The patient has endpoint nystagmus only.?HEENT:??The patient is normocephalic with a normal facies with cranial nerves 2 through 12 bilaterally equal and intact. Pupils are equal and reactive to light with extraocular movements bilaterally equal and intact. There is no proptosis or enophthalmos,??EARS:, Ear exam reveals normal appearing pinna bilaterally. Mastoids are normal to palpation and nontender bilaterally. the ext ernal canal are patent, without otorrhea, with bilateral TM's mobile with no evidence of middle earfluid, middle ear masses, or retraction pockets.??NOSE:, The inferior turbinates are within normal limits, The middle meati are unremarkable with no polyps, masses or purulent discharge,??ORAL CAVITY:, no trismus, tongue and floor of mouth are normal to inspection and palpation. Mucosa is moist andhealthy throughout. the palate is intact and elevates symmetrically in midline,??OROPHARYNX:, Uvulamidline, soft palate symmetric. Tonsils??.?NECK:??There is no palpable lymphadenopathy.?HEART:??regular rate and rhythm.?LUNGS:??clear to auscultation bilaterally, no wheezes/rhonchi/rales.?SKIN:??BCC present at the deep tissue edges on the right postauricular region,??continuing to grow, AK on the??left and right cheek, right mid cheek non-healing??skin lesion ?MUSCULOSKELETAL:??normal gait and station.?? Procedure Surgery Consent??There was a full discussion of all treatment options including conservative management, second opinion and surgical intervention. The patient and or family has opted to proceed with surgical intervention. We have discussed risks and complications as it relates to the procedure and postoperative period, including but not limited to those listed on the consent. All of their questions were answered, consent was reviewed and signed. There is no history of any bleeding disorders or anesthesia complications. We will proceed..?PFP Shave Excision ? Location:??Right mid cheek ? Size:??<0.5cm ?Prep:??Betadine used to prep site.?Consent:??The procedure was discussed, risks and complications explained and consent obtained.?Procedure:??Shave excision was performed, hemostasis was achieved and no complications.? Discharge Instructions:??Keep area moist with ointment and clean, follow up in seven days for pathology.? There was a full discussion of all treatment options including conservative management, second opinion and surgical intervention. The patient and or family has opted to proceed with surgical intervention. We have discussed risks and complications as it relates to the procedure and postoperative period, including but not limited to those listed on the consent. Relating to usage of opioids, the rationale to provide narcotic pain control (if required) was reviewed. We discussed non-opioid alternatives which include [id number] Tylenol and Motrin which can be alternated and often can be very helpful for pain control. We discussed the risks and side effects the use of opioids. Our goal is to use the lowest effective dose for the shortest duration to help reduce risks/side effects. We discussed informed consent regarding the risks and benefits of opioid usage, not limited to overdose resulting in and addiction, handouts provided. Any unused medication can be disposed of securely at most police stations. The patient is instructed not to operate machinery or drive a motor vehicle while using opioids. All of their questions were answered, consent was reviewed and signed. There is no history of any bleeding disorders or anesthesia complications. We will proceed.? Medical Decision Making: Opted for biopsy of the right cheek lesion, if this is cancer this can be dealt with at the same time as the right postauricular??basal cell, we discussed full- thickness skin graft, he wishes to stayaway, he can eat or drink??leading up to his operative time.?? We will proceed with under local only Assessment/Plan 1.??AK (actinic keratosis)??L57.0 Patient and I discussed that he has widespread AK on the face. Patient and I discussed that he should use the Efudex cream on all the marked spots. He does have the cream and instructions, but will call if he needs more. 2.??Basal cell carcinoma??C44.91 We discussed that the ear lesion is growing back so we should formally excise it in the OR. Patientwas understanding and consent was signed. 3.??Neoplasm of skin??D49.2 Patient has a right mid cheek skin lesion that is non-healing. Lesion was biopsied today and patient was given care instructions. Follow Up Instructions Calling with path results, OR- BCC Ear Problem List/Past Medical History Ongoing Anxiety Arthritis Blepharitis Depression Epistaxis GERD (gastroesophageal reflux disease) History of partial colectomy History of ventral hernia repair Hyperlipidemia Hypertension Hypothyroidism Insomnia Melena Osteoporosis Peripheral neuropathy Prediabetes Rosacea SOB (shortness of breath) Vertebral compression fracture Historical No qualifying data Medications acetaminophen, 500 mg, Oral, every 6 [...] tab, Oral, every 24 hr Allergies Orencia Calcium Levothyroxine Sodium lisinopril??(Cough) Electronically Signed on 09/21/22 11:26 AM Albaro Liao, DO Patient Care team information Personnel Name: ALBARO LIAO D.O.
--- OUTSIDE RECORDS SUMMARY | 2023-04-12 19:20 | XMS_ITS | Continuity of Care Document ---
Author Name Unknown Organization [facility] Address [address] [place] [address] Care Team Providers Care Trim Setter Helper Name Role Phone ALLEN LIAO D.O. Primary Care Physician Unavailable Encounter [facility] [id number] Date(s): 11/28/22 - 11/28/22 [facility] [address] [place] [address] [place] Encounter Diagnosis Visit for wound care(Discharge Diagnosis) - 11/22/22 Discharge Disposition: Home or Self Care Attending [...] Sex Physician Outpatient Note * DONAVAN Spaulding: PERFORM DONAVAN Spaulding: PERFORM, MODIFY DONAVAN Spaulding: MODIFY Event Display: Office Clinic Note Physician Authored Date: [id number] LEEANNE AGEE :1950 Age:72 years Sex:Male Visit Date:11/28/2022 Primary Care Physician: ALLEN LIAO D.O. Chief Complaint skin graft check History of Present Illness Patient was last seen in our office on 11/14/22 for wound care of skin graft.?Patient had BCC removed from right post auricular. Patient was healing well at last visit and thought to only need one more wound care appointment. He is here today for skin graft check and care. Patient is doing well. He has no new concerns. Review of Systems Fatigue?? Negative.?? Fever?? Negative.?? [...] normal,?HEENT:??The patient is normocephalic with a normal facies?SKIN:??Well-healing skin graft donor site left neck.?? Right posterior ear??with??5mm area that is healing??largely from secondary intention. ??Otherwise??well-healed??skin graft site. ?MUSCULOSKELETAL:??normal gait and station.?? Assessment/Plan 1.??Visit for wound care??Z51.89 No skin graft debridement was required today remove examination. ??He does have a small area that is healing by secondary intention??where it appears likely??graft did not take. ??He does??recount having hit his ear when going through a sugar brush??and having had some bleeding after that.?? It does appear to be hearing well and there is no exposed cartilage??or evidence of infection.?? Given underlying sun damage and history of basal cell carcinoma recommend recheck skin in 3 months and we will reexamine this area at that time.?? Reviewed signs and symptoms of infection and return if any such develop sooner.?? Also discussed that if there is any new concerning skin lesions which she deniestoday return sooner. Problem List/Past Medical History Ongoing Anxiety Arthritis [...] tobacco user Tobacco Use:. Electronically Signed on 11/28/22 02:07 PM DONAVAN Spaulding Patient Care team information Care Team Related Persons Name: LISA AGEE Address: Home [address] [place] [phone] [facility]
== END 2023-04-12 19:11 | disposition home or self-care (01) ==
LOC: LBN 19:10
PROVIDERS: PCP Family Medicine; Visit Provider Student in an Organized Health Care Education/Training Program
DX: R05.3 Chronic cough (principal); J98.6 Disorders of diaphragm
CPT/HCPCS: 87116; 87206

== ENCOUNTER 2023-04-15 14:53 | Outpatient (REF) | payer MEDICARE, SELFPAY | END 2023-04-15 14:54 | disposition home or self-care (01) | LOC: LBN 14:53 | PROVIDERS: PCP Family Medicine; Visit Provider Student in an Organized Health Care Education/Training Program | DX: R05.3 Chronic cough (principal) | CPT/HCPCS: 87116; 87206 ==

== ENCOUNTER → 2023-06-28 10:24 | Outpatient (BNVA) | payer MEDICARE, SELFPAY | PROVIDERS: PCP Family Medicine; Visit Provider Urology | DX: N20.1 Calculus of ureter (principal) | CPT/HCPCS: 99213 ==

== ENCOUNTER → 2023-07-04 09:01 | Outpatient (BNVA) | payer MEDICARE, SELFPAY | PROVIDERS: PCP Family Medicine; Referring Provider Family Medicine; Visit Provider Physician Assistant Surgical | DX: J98.6 Disorders of diaphragm (principal); R05.3 Chronic cough; M06.9 Rheumatoid arthritis, unspecified; G70.9 Myoneural disorder, unspecified; J99 Respiratory disorders in diseases classified elsewhere; Z86.19 Personal history of other infectious and parasitic diseases; R06.02 Shortness of breath; J45.909 Unspecified asthma, uncomplicated | CPT/HCPCS: 36415; 82784; 94640; 99214; J7620; 82785; 82787; 83519 ==

== ENCOUNTER 2023-07-04 10:49 | Outpatient (CLI) | payer MEDICARE, SELFPAY ==
[2023-07-05 07:51] LABS: IgE 29 IU/mL (<158)
[2023-07-05 09:32] LABS: IgA 147 mg/dL (85-499); IgG 532 mg/dL (610-1616); IgM 38 mg/dL (35-242)
== END 2023-07-04 10:50 | disposition home or self-care (01) ==
PROVIDERS: PCP Family Medicine; Visit Provider Student in an Organized Health Care Education/Training Program
DX: B99.9 Unspecified infectious disease (principal); G70.9 Myoneural disorder, unspecified; J99 Respiratory disorders in diseases classified elsewhere
CPT/HCPCS: 36415; 82784; 82785; 82787; 83519

== ENCOUNTER → 2023-08-06 10:32 | Outpatient (BNVA) | payer MEDICARE, SELFPAY | PROVIDERS: PCP Family Medicine; Referring Provider Family Medicine; Visit Provider Internal Medicine Cardiovascular Disease | DX: I25.10 Atherosclerotic heart disease of native coronary artery without angina pectoris (principal); Z95.5 Presence of coronary angioplasty implant and graft | CPT/HCPCS: 99213 ==

== ENCOUNTER 2023-08-29 10:11 | Outpatient (REF) | payer MEDICARE, SELFPAY ==
[2023-08-29 15:19] LABS: Abs Immature Grans 0.04 10^3/uL (0.0-0.06); Absolute Eosinophil Count 0.49 10^3/uL (0.0-0.7); Absolute Lymphocyte Count 1.94 10^3/uL (1.2-3.4); Basophils % 0.5; Eosinophils % 4.4; HCT 48.8 % (40.0-50.0); HGB 15.9 g/dL (13.5-17.5); Immature Grans % 0.4; Lymphocytes % 17.6; MCH 29.4 pg (27.0-33.0); MCHC 32.6 % (32.0-36.0); MCV 90 fL (80-95); MPV 9.7 fL (8.0-11.0); Monocytes % 8.2; Neutrophils % 68.9; Platelet Count 253 10^3/uL (130-400); RBC 5.41 10^6/uL (4.36-5.78); RDW 13.8 % (11.8-14.1); RDW-SD 46.1 fL; WBC 11.04 10^3/uL (4.4-10.8)
[2023-08-29 15:22] LABS: Absolute Basophil Count 0.06 10^3/uL (0.0-0.2); Absolute Monocyte Count 0.91 10^3/uL (0.1-0.8); Absolute Neutrophil Count 7.61 10^3/uL (1.2-6.7)
== END 2023-08-29 10:12 | disposition home or self-care (01) ==
LOC: NCHCN 10:11
PROVIDERS: PCP Family Medicine; Visit Provider Nurse Practitioner Family
DX: R05.3 Chronic cough (principal)
CPT/HCPCS: 85025

== ENCOUNTER → 2023-08-29 10:54 | Outpatient (CLI) | payer MEDICARE, SELFPAY ==
--- NOTE | 2023-08-29 10:39 | DI.RAD_ITS ---
Exam(s) XR CHEST 2V PA LATERAL EXAM: XR CHEST 2V PA LATERAL CLINICAL HISTORY: CHRONIC COUGH, R05.3 TECHNIQUE: 2D digital imaging was performed. COMPARISON: CR,RF RF chest fluoroscopy cxr 2v from 08/13/[address] RENAL COLIC WO from 03/07/2021 FINDINGS: HEART: Normal size. Aorta: Not dilated. PULMONARY VASCULATURE: Normal. LUNGS: Clear. PLEURAL SPACE: No pleural effusion or pneumothorax. BONE:Unremarkable for age. Soft tissues: elevation of the right diaphragm is unchanged. IMPRESSION: No acute abnormality. DATA REPOSITORY: RADIATION DOSE DELIVERED:
== END ==
PROVIDERS: PCP Family Medicine; Visit Provider Nurse Practitioner Family
DX: R05.3 Chronic cough (principal)
CPT/HCPCS: 71046

== ENCOUNTER 2023-09-10 14:11 | Outpatient (CLI) | payer OTHER, SELFPAY ==
[2023-09-10 14:41] LABS: ESR < 1 mm/hr (0-20)
[2023-09-10 14:42] LABS: Abs Immature Grans 0.03 10^3/uL (0.0-0.06); Absolute Basophil Count 0.03 10^3/uL (0.0-0.2); Absolute Eosinophil Count 0.35 10^3/uL (0.0-0.7); Absolute Lymphocyte Count 2.27 10^3/uL (1.2-3.4); Absolute Monocyte Count 0.77 10^3/uL (0.1-0.8); Absolute Neutrophil Count 6.18 10^3/uL (1.2-6.7); Basophils % 0.3; Eosinophils % 3.6; HCT 47.6 % (40.0-50.0); HGB 15.6 g/dL (13.5-17.5); Immature Grans % 0.3; Lymphocytes % 23.6; MCH 29.4 pg (27.0-33.0); MCHC 32.8 % (32.0-36.0); MCV 90 fL (80-95); MPV 9.1 fL (8.0-11.0); Neutrophils % 64.2; Platelet Count 249 10^3/uL (130-400); RDW 13.6 % (11.8-14.1); RDW-SD 45.4 fL; WBC 9.63 10^3/uL (4.4-10.8)
[2023-09-10 15:06] LABS: ALT 32 U/L (16-63); AST 20 U/L (15-37); Albumin 3.3 g/dL (3.4-5.0); Alkaline Phosphatase 96 U/L (46-116); Anion Gap 3.9 mmol/L (3-11); BUN 20 mg/dL (7-18); Bilirubin, Total 0.4 mg/dL (0.2-1.0); C-Reactive Protein 0.79 mg/dL (0.0-0.3); CO2 32.1 mmol/L (21.0-32.0); CREATININE 1.1 mg/dL (0.70-1.30); Calcium 9.4 mg/dL (8.5-10.1); Chloride 105 mmol/L (98-107); Estimated GFR 70.44 (mL/min/1.73m2); Glucose 103 mg/dL (74-106); Potassium 4.1 mmol/L (3.5-5.1); Sodium 141 mmol/L (136-145); Total Protein 6.5 g/dL (6.4-8.2)
== END 2023-09-10 14:12 | disposition home or self-care (01) ==
LOC: LBO 14:21
PROVIDERS: PCP Family Medicine; Visit Provider Nurse Practitioner
DX: Z79.899 Other long term (current) drug therapy (principal)
CPT/HCPCS: 36415; 80053; 85652; 85025; 86140

== ENCOUNTER → 2023-10-03 10:16 | Outpatient (BNVA) | payer OTHER, SELFPAY | PROVIDERS: PCP Family Medicine; Referring Provider Family Medicine; Visit Provider Student in an Organized Health Care Education/Training Program | DX: J98.6 Disorders of diaphragm (principal); R05.3 Chronic cough; M06.9 Rheumatoid arthritis, unspecified; G70.89 Other specified myoneural disorders; B99.9 Unspecified infectious disease; J99 Respiratory disorders in diseases classified elsewhere | CPT/HCPCS: 99214 ==

== ENCOUNTER 2023-11-05 09:38 | Inpatient (IN) | payer OTHER, SELFPAY ==
[2023-11-05] VITALS (52 sets, daily range): BP systolic 127–184; BP diastolic 68–113; PULSE 98–130; RESP 12–34; TEMP 36.6–37; O2SAT 87–96
--- NOTE | 2023-11-05 09:30 | RT.EKG_ITS ---
APPROVED REPORT Exam: Resting ECG Reason for Exam: SOB Patient Location: E HR:122 bpm ECG Measurements Heart Rate 122 AXIS MN 69 P 0 QRSd 106 QRS 38 QT 306 T 21 QTc 436 Conclusion Gender not entered, assumed to be male for purpose of ECG interpretation Sinus tachycardia...rate> [address] elevation, lateral leads...ST >0.06mV, I aVL V5 V6 sinus tachycardia, normal axis, normal intervals
--- NOTE | 2023-11-05 09:53 | ED.GENADUL_ITS ---
Discharge Plan Disposition Patient Disposition: Admit to [facility] Condition: Stable Discharge Details Clinical Impression: COVID-19, Acute hypoxic respiratory failure, Pneumonia Admit Date/Time: 11/05/23 13:14 Admit Provider: Patrick River Attending Provider: Patrick River Primary Care Provider: Arelis Michele V ED Provider: Corey Wells HPI General Date/Time Provider Initiated Documentation: 11/05/23 09:53 . HPI Narrative: 73 year-old male presents to ED today by POV/ambulating with a chief complaint of treatment failure for PNA- states he took Augmentin and doxycycline for pneumonia 2-3 weeks ago but has failed to get better, lethargic, coughing, shortness of breath. Quality described as just feels run down, coughing fits causing gagging, no radiation to hemoptysis, syncope, chest pain, nausea/vomiting, abdominal pain, dysuria. Severity is described as 9/10. Palliating factors include nothing specific. Provoking factors include nothing specific. Events leading up to the incident/Associated Symptoms: Patient is vaccinated for Covid-19. 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 Patient not anticoagulated. Related Data Home Medications Medication Instructions Recorded Confirmed Prilosec 40 mg capsule,delayed 40 mg PO DAILY 11/11/12 11/05/23 release (omeprazole) cholecalciferol (vitamin D3) 25 1,000 unit PO DAILY 11/11/12 11/05/23 mcg (1,000 unit) tablet multivitamin with minerals 1 ea PO DAILY 11/11/12 11/05/23 aspirin 81 mg tablet,delayed 81 mg PO DAILY 02/20/14 11/05/23 release (Aspir-) ascorbic acid (vitamin C) 500 mg 500 mg PO DAILY 09/28/15 11/05/23 tablet (Vitamin C) albuterol sulfate 90 mcg/actuation 1 - 2 puff inhalation Q6H PRN 12/22/15 11/05/23 aerosol inhaler (ProAir HFA) nitroglycerin 0.4 mg sublingual 0.4 mg sublingual ONCE 05/28/18 11/05/23 tablet venlafaxine 150 mg 150 mg PO DAILY 07/01/19 11/05/23 capsule,extended release 24 hr (Effexor XR) bupropion HCl 150 mg tablet,12 hr 150 mg PO QAM 12/08/19 11/05/23 sustained-release (Wellbutrin SR) diclofenac sodium 3 % topical gel 1 applic topical TID PRN 12/08/19 11/05/23 isosorbide mononitrate 30 mg 30 mg PO DAILY 12/08/19 11/05/23 tablet,extended release 24 hr venlafaxine 75 mg capsule,extended 75 mg PO DAILY 12/08/19 11/05/23 release 24 hr metoprolol succinate 25 mg 25 mg PO HS 03/07/21 11/05/23 tablet,extended release 24 hr amlodipine 2.5 mg tablet 2.5 mg PO DAILY #90 tabs 03/24/21 11/05/23 atorvastatin 10 mg tablet 20 mg PO DAILY 04/02/22 11/05/23 montelukast 10 mg tablet 10 mg PO DAILY 04/02/22 11/05/23 trazodone 50 mg tablet 50 mg PO DAILY 04/02/22 11/05/23 metronidazole 1 % topical gel 1 applic topical BID 07/11/22 11/05/23 rituximab 10 mg/mL IV 09/21/22 11/05/23 concentrate,intravenous (Rituxan) acetaminophen 500 mg tablet 500 mg PO Q6H PRN 02/20/23 11/05/23 loratadine 10 mg tablet (Allergy 10 mg PO DAILY 02/20/23 11/05/23 Relief (loratadine)) ondansetron 4 mg disintegrating 4 mg PO TID PRN 07/04/23 11/05/23 tablet albuterol sulfate 2.5 mg/3 mL 2.5 mg (3 mL) inhalation QID PRN 07/09/23 11/05/23 (0.083 %) solution for nebulization shortness of breath or wheezing #180 mL levothyroxine 88 mcg tablet 100 mcg PO DAILY 08/06/23 11/05/23 (Synthroid) vitamins A,C,D-rccv-jdrnkv 4,296 1 cap PO DAILY 08/06/23 11/05/23 mcg-226 mg-90 mg capsule (PreserVision AREDS) doxycycline hyclate 100 mg capsule 100 mg PO BID #14 caps 10/16/23 11/05/23 Previous Rx's Medication Instructions Recorded amlodipine 2.5 mg tablet 2.5 mg PO DAILY #90 tabs 03/24/21 albuterol sulfate 2.5 mg/3 mL 2.5 mg (3 mL) inhalation QID PRN 07/09/23 (0.083 %) solution for nebulization shortness of breath or wheezing #180 mL doxycycline hyclate 100 mg capsule 100 mg PO BID #14 caps 10/16/23 Allergies Allergy/AdvReac Type Severity Reaction Status Date / Time abatacept [From Orencia] AdvReac Severe Nausea Verified 11/05/23 10:34 lisinopril AdvReac Mild cough Verified 11/05/23 09:48 calcium AdvReac kidney Verified 11/05/23 09:48 stones General Stated Complaint: SOB SHANEKA: 2 Review of Systems All systems reviewed & are unremarkable except as noted in HPI and below Exam Narrative Exam Narrative: GENERAL APPEARANCE: Well-nourished, non-toxic, awake and alert, atraumatic, no acute distress. SKIN: Warm, pink, dry, intact, without rashes/lesions/ulcerations. HEAD: Normocephalic, atraumatic, normal hair distribution for gender/age. EYES: Pupils PERRLA, EOMs intact without nystagmus, normal conjunctiva, no exudates on lids/lashes. ENT: Nares patent, no circumoral cyanosis, no facial swelling NECK: Supple, trachea midline, painless cervical ROM. LUNGS/CHEST: Lungs- poor air movement, rhonchorous throughout, no overt rales, non-labored respirations, normal A/P diameter, symmetrical expansion, no chest wall deformity HEART (CV/PV): Regular rate- tachycardia without murmur, no peripheral edema, no JVD. ABDOMEN: Soft, non-distended, no guarding, no tenderness. MSK: Normal ROM, no swelling/deformity to bilateral UEs or LEs, moving all extremities without weakness, no cyanosis, spine midline without tenderness, normal curvature. NEURO: Mental Status AAOx4 - alert to person, place, time, events No facial droop, no forehead involvement. Motor: No focal weakness - strength 5/5 in bilateral UEs and LEs, proximal and distal, symmetric. Sensory: sensation intact to light touch globally. Gait normal: patient ambulated without ataxia into ED room. PSYCH: euthymic, cooperative, pleasant, appropriate speech Course Vital Signs Vital signs: Vital Signs Temperature 37.0 C 11/05/23 09:45 Pulse 125 H 11/05/23 09:45 Respiratory Rate 24 11/05/23 09:45 Blood Pressure 184/107 H 11/05/23 09:45 Pulse Oximetry 88 L 11/05/23 09:45 Temperature 37.0 C 11/05/23 09:45 Pulse 125 H 11/05/23 09:45 Respiratory Rate 24 11/05/23 09:45 Blood Pressure 184/107 H 11/05/23 09:45 Pulse Oximetry 88 L 11/05/23 09:45 Oxygen Delivery Method Room Air 11/05/23 09:45 Oxygen Flow Rate 0 11/05/23 09:45 Medical Decision Making This dictation utilizes [id number] dictation software and may contain unedited grammatical errors. 73 y/o M presents to ED today with a chief complaint of shortness of breath, treated for pneumonia 2-3 weeks ago with dual therapy PO antibiotics of Augmentin & doxycycline with failure to improve- having worsening shortness of breath, cough with gagging, denies overt fever. Patient is non-oxygen dependent, arrived at 88% on RA- was placed on NC O2 2L. 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 Family and social history: noncontributory. Pertinent exam findings / vital signs include poor air movement, hypoxia to 88% on arrival, rhonchorous throughout, benign abdomen, tachycardic. Differential / pathologies of concern include Pneumonia, Hypoxic Respiratory Failure, Sepsis. Diagnostic studies of: -CBC, CMP, CRP/ESR, troponin, BNP, lipase, lactate, magnesium, urinalysis, proca lcitonin, D-dimer, VBG, COVID/flu/RSV PCR, blood cultures, CT chest without contrast, rapid COVID antigen. -CBC shows leukocytosis of 15, no anemia -inflammatory markers elevated -D-dimer 658, age adjusted negative, YEARS negative, likely in the setting of infection -VBG pH 7.39, compensated -CMP benign -Magnesium 1.6 > repleting IV -Lipase wnl -Lactate / procalcitonin negative -UA benign, 5-10 RBCs, non-specific -Covid PCR positive > reflexing to Rapid Ag to check for active infection vs leftover positivity from prior infection -Rapid Ag Covid positive > active Covid-19 infection. -CT Chest shows non-specific bilateral infiltrates Interventions of: -IVF @ 150mL/hr, 2gm IV Magnesium, IV Tylenol/Toradol, DuoNeb, IV Dexamethasone. ED Course/Assessment/Plan: 73-year-old male with high risk chronic pulmonary conditions of right-sided diaphragmatic paralysis presents with possible treatment failure of pneumonia on Augmentin and doxycycline weeks ago. He was hypoxic on arrival to 88% on room air and was initiated on oxygen at 2 L by nasal cannula. He is shown to have active COVID-19 infection with likely viral pneumonia of the lungs on CT without contrast, otherwise she is in a compensated respiratory acidosis, magnesium was low I am repeating this with IV he was given IV Tylenol, Toradol, dexamethasone, is a candidate for remdesivir. I consulted with hospitalist Dr. River for admission who accepted for admission at 1300. Disposition of Acute Hypoxic Respiratory Failure, Covid-19, Pneumonia. Patient verbalized understanding of the plan and return to ED criteria and e ngaged in shared decision making. Medical Records Medical records reviewed: Yes I reviewed the patient's medical records. Imaging Data Radiologic Study: Attestation: I personally reviewed and interpreted this imaging study as follows: Imaging: CT Scan Radiologist's impression: EXAM: CT CHEST WO CLINICAL HISTORY: PNA, outpatient tx failure. TECHNIQUE: Imaging protocol: Axial computed tomography images were obtained and coronal and sagittal reformatted images were created and reviewed. COMPARISON: CR XR CHEST 2V PA LATERAL from 08/29/2023 FINDINGS: The examination is limited due to patient motion artifact. Tracheobronchial tree: Patent where visualized. Pulmonary parenchyma: Small infiltrates are seen in the left lower lobe in the right lower lobe. No architectural distortion. Mediastinum and Maria Dolores: No dominant adenopathy or fluid collection. The esophagus is unremarkable.Small hiatal hernia. Thyroid gland: Unremarkable. Pleura: No effusion or pneumothorax. Heart: Cardiomegaly. Coronary artery calcifications and/or stents. No pericardial effusion. Aorta: Thoracic aorta non-dilated. Atherosclerotic calcification is present. Upper abdomen: There is elevation of the right hemidiaphragm again noted. Lymph nodes: Within normal limits. Soft tissues: Unremarkable. Bones:Within normal limits for the patient's age. IMPRESSION: Bilateral basilar nonspecific infiltrates. Pneumonia can not be excluded. Lab Data Lab results reviewed: Yes I reviewed the patient's lab results. Labs: 11/05/23 10:45 Blood Blood Culture - Pending 11/05/23 10:10 Blood Blood Culture - Pending Laboratory Tests Range/Units 11/05/23 11/05/23 11/05/23 10:00 10:10 10:55 WBC (4.4-10.8) 10^3/uL 15.51 H RBC (4.36-5.78) 10^6/uL 5.27 Hgb (13.5-17.5) g/dL 15.4 Hct (40.0-50.0) % 46.6 MCV (80-95) fL 88 MCH (27.0-33.0) pg 29.2 MCHC (32.0-36.0) % 33.0 RDW (11.8-14.1) % 13.7 Plt Count (130-400) 10^3/uL 270 MPV (8.0-11.0) fL 8.9 Immature Gran % 0.4 Neutrophils % 81.4 Lymphocytes % 9.3 Monocytes % 6.3 Eosinophils % 2.4 Basophils % 0.2 Nucleated RBC % (0.0-0.3) % 0.0 Absolute Neutrophils (1.2-6.7) 10^3/uL 12.63 H Absolute Lymphocytes (1.2-3.4) 10^3/uL 1.44 Absolute Monocytes (0.1-0.8) 10^3/uL 0.98 H Absolute Eosinophils (0.0-0.7) 10^3/uL 0.37 Absolute Basophils (0.0-0.2) 10^3/uL 0.03 ESR (0-20) mm/hr 21 H D-Dimer (<500) ng/mlFEU 658 H VBG pH (7.31-7.41) 7.39 VBG pCO2 (41-51) mmHg 52 H VBG pO2 mmHg 29 VBG HCO3 (23-28) mmol/L 31 H VBG Total CO2 (24-29) mmol/L 28 VBG O2 Saturation % 54 VBG Base Excess (-2-3) mmol/L 6 H VBG Lactate (0.6-1.4) mmol/L 1.0 Sodium (136-145) mmol/L 135 L Potassium (3.5-5.1) mmol/L 3.9 Chloride (98-107) mmol/L 98 Carbon Dioxide (21.0-32.0) mmol/L 29.8 Anion Gap (3-11) mmol/L 7.2 BUN (7-18) mg/dL 12 Creatinine (0.70-1.30) mg/dL 1.0 Est GFR (CKD-EPI 2020) (mL/min/1.73m2) 78.49 Glucose (74-106) mg/dL 125 H Calcium (8.5-10.1) mg/dL 9.3 Magnesium (1.8-2.4) mg/dL 1.6 L Total Bilirubin (0.2-1.0) mg/dL 0.5 AST (15-37) U/L 18 ALT (16-63) U/L 24 Alkaline Phosphatase (46-116) U/L 128 H Troponin I (< or =60) ng/L < 50 C-Reactive Protein (<or=0.5) mg/dL 13.64 H NT-Pro-B Natriuret Pep (<300) pg/mL 49 Total Protein (6.4-8.2) g/dL 7.1 Albumin (3.4-5.0) g/dL 3.0 L Lipase (16-77) U/L 19 Procalcitonin ng/mL < 0.1 Urine Color (Yellow) Yellow Urine Clarity (Clear) Clear Urine pH (5-8) 7.0 Ur Specific [place] (1.005-1.025) 1.020 Urine Protein (Neg-Trace) mg/dL Negative Urine Ketones (Negative) mg/dL Negative Urine Blood (Negative) Small H Urine Nitrite (Negative) Negative Urine Bilirubin (Negative) Negative Urine Urobilinogen (Up to 0.2) mg/dL 0.2 Ur Leukocyte Esterase (Negative) Negative Urine RBC (0-2) HPF 5-10 H Urine WBC (0-5) HPF 0-2 Ur Epithelial Cells (Negative) HPF Rare Urine Crystals (Negative) HPF Negative Urine Bacteria (Negative) HPF Negative Urine Casts (Negative) LPF Negative Urine Mucus (Negative) Negative Ur Culture Indicated? No Urine Glucose (Negative) mg/dL Negative COVID-19 Source Nasopharynx SARS-CoV-2 (PCR) (Negative) Positive A Influenza Type A (PCR) (Negative) Negative Influenza Type B (PCR) (Negative) Negative RSV (PCR) (Negative) Negative Quality:SDOH Health Related Social Needs: No Data to Display PFSH All Active Problems (Updated 11/05/23 @ 14:42 by LINWOOD GRAHAM) Pneumonia (Acute) Acute hypoxic respiratory failure (Acute) COVID-19 (Acute) Wheezing on auscultation (Acute) Recurrent infections (Acute) Neuromuscular respiratory weakness (Acute) Diaphragm paralysis (Acute) Macular degeneration (Acute) Sacroiliac joint pain (Acute) Hip pain (Acute) Knee pain (Acute) Prediabetes (Acute) Dental infection (Acute) Skin lesion (Acute) COVID-19 virus infection (Acute) Nasal mucosa dry (Acute) Chronic cough (Acute) Basal cell carcinoma (Acute) Actinic keratosis (Acute) Ureterolithiasis (Acute) Coronary artery disease (Chronic) Chest pain (Acute) Wheezing (Acute) Nocturnal cough (Acute) Cardiomyopathy (Acute) SOB (shortness of breath) (Acute) Melena (Acute) CAD (coronary artery disease) of artery bypass graft (Acute) BPH (benign prostatic hyperplasia) (Chronic) Dysphagia (Acute) Strain of calf muscle (Acute 06/30/19) Leg hematoma (Acute 06/30/19) Tubular adenoma of colon (Chronic) GERD (gastroesophageal reflux disease) (Chronic) Xerostomia (Acute 08/17/13) Winged scapula of left side (Acute 04/09/16) Tendinitis of left rotator cuff (Acute 04/09/16) Rhinitis (Acute 08/31/13) Rheumatoid arthritis (Acute 10/14/17) Personal history of antineoplastic chemotherapy (Acute 10/14/17) 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) Epistaxis (Acute 10/14/17) Acute sinusitis (Acute 08/17/13) Medical History Sjogren syndrome, unspecified Actinic keratoses Tubular adenoma Other osteoporosis with current pathological fracture, vertebra(e), subsequent encounter for fracture with routine healing Hypertension Rosacea GERD (gastroesophageal reflux disease) Peripheral neuropathy Sicca syndrome Overweight History of partial colectomy Hypothyroidism Hyperlipidemia Dyspnea Depression Pulmonary hypertension Anxiety Pharyngeal disorder Polyarthralgia Steroid-induced osteoporosis Elevated hemidiaphragm Epistaxis Hx of ventral hernia repair Insomnia Rheumatoid arthritis Complicated grief Surgical History Stented coronary artery (~03/20/19) Hernia Repair, Incisional Colonoscopy - IV Sedation (~11/15/09) 09/30/2019 [facility] sessile repeat 3 yrs per Violeta note Colectomy Social History Smoking/Tobacco Use Status: Never Smoking risk assessment performed?: Yes Alcohol Intake: never Drug use: Never Substance use type: does not use Housing: apartment What type of physical activity do you participate in: none Do you feel safe at home: Yes Do you feel safe in your relationship?: Yes
[2023-11-05 10:23] LABS: BE (Venous) 6 mmol/L (-2-3); HCO3 (Venous) 31 mmol/L (23-28); O2 Sat (Venous) 54 %; TCO2 (Venous) 28 mmol/L (24-29); pCO2 (Venous) 52 mmHg (41-51); pH (Venous) 7.39 (7.31-7.41); pO2 (Venous) 29 mmHg
[2023-11-05 10:24] LABS: Abs Immature Grans 0.06 10^3/uL (0.0-0.06); Absolute Basophil Count 0.03 10^3/uL (0.0-0.2); Absolute Eosinophil Count 0.37 10^3/uL (0.0-0.7); Absolute Lymphocyte Count 1.44 10^3/uL (1.2-3.4); Absolute Monocyte Count 0.98 10^3/uL (0.1-0.8); Absolute Neutrophil Count 12.63 10^3/uL (1.2-6.7); Basophils % 0.2; Eosinophils % 2.4; HCT 46.6 % (40.0-50.0); HGB 15.4 g/dL (13.5-17.5); Immature Grans % 0.4; Lymphocytes % 9.3; MCH 29.2 pg (27.0-33.0); MCV 88 fL (80-95); MPV 8.9 fL (8.0-11.0); Monocytes % 6.3; Neutrophils % 81.4; Platelet Count 270 10^3/uL (130-400); RBC 5.27 10^6/uL (4.36-5.78); RDW 13.7 % (11.8-14.1); RDW-SD 44.3 fL; WBC 15.51 10^3/uL (4.4-10.8)
[2023-11-05 10:28] LABS: ESR 21 mm/hr (0-20)
[2023-11-05 10:49] LABS: ALT 24 U/L (16-63); AST 18 U/L (15-37); Alkaline Phosphatase 128 U/L (46-116); Anion Gap 7.2 mmol/L (3-11); BUN 12 mg/dL (7-18); Bilirubin, Total 0.5 mg/dL (0.2-1.0); C-Reactive Protein 13.64 mg/dL (<or=0.5); CO2 29.8 mmol/L (21.0-32.0); Calcium 9.3 mg/dL (8.5-10.1); Chloride 98 mmol/L (98-107); Estimated GFR 78.49 (mL/min/1.73m2); Glucose 125 mg/dL (74-106); Lipase 19 U/L (16-77); Magnesium 1.6 mg/dL (1.8-2.4); NT-proBNP 49 pg/mL (<300); Potassium 3.9 mmol/L (3.5-5.1); Sodium 135 mmol/L (136-145); Total Protein 7.1 g/dL (6.4-8.2); Troponin I < 50 ng/L (< or =60)
[2023-11-05 10:57] LABS: D-Dimer 658 ng/mlFEU (<500)
--- NOTE | 2023-11-05 11:00 | DI.CT_ITS ---
Exam(s) CT CHEST WO EXAM: CT CHEST WO CLINICAL HISTORY: PNA, outpatient tx failure. TECHNIQUE: Imaging protocol: Axial computed tomography images were obtained and coronal and sagittal reformatted images were created and reviewed. COMPARISON: CR XR CHEST 2V PA LATERAL from 08/29/2023 FINDINGS: The examination is limited due to patient motion artifact. Tracheobronchial tree: Patent where visualized. Pulmonary parenchyma: Small infiltrates are seen in the left lower lobe in the right lower lobe. No architectural distortion. Mediastinum and Maria Dolores: No dominant adenopathy or fluid collection. The esophagus is unremarkable.Small hiatal hernia. Thyroid gland: Unremarkable. Pleura: No effusion or pneumothorax. Heart: Cardiomegaly. Coronary artery calcifications and/or stents. No pericardial effusion. Aorta: Thoracic aorta non-dilated. Atherosclerotic calcification is present. Upper abdomen: There is elevation of the right hemidiaphragm again noted. Lymph nodes: Within normal limits. Soft tissues: Unremarkable. Bones:Within normal limits for the patient's age. IMPRESSION: Bilateral basilar nonspecific infiltrates. Pneumonia can not be excluded. RADIATION DOSE DELIVERED: Total DLP Total DLP DATA REPOSITORY: All CT scans at this facility are submitted to the National Radiology Data Registry (NRDR) Dose Index Registry (DIR) with the [employer] (A[employer]). RADIATION OPTIMIZATION: All CT scans at this facility use at least one of these dose optimization te chniques: automated exposure control; mA and/or kV adjustment per patient size (includes targeted exa ms where dose is matched to clinical indication); or iterative reconstruction.
[2023-11-05 11:05] LABS: Procalcitonin < 0.1 ng/mL
[2023-11-05 11:09] LABS: Bilirubin Negative (Negative); Blood Small (Negative); Clarity Clear (Clear); Glucose Negative (Negative); Ketones Negative (Negative); Leukocyte Esterase Negative (Negative); Nitrite Negative (Negative); Urobilinogen 0.2 mg/dL (Up to 0.2)
[2023-11-05 11:16] LABS: Bacteria Negative HPF (Negative); C & S Indicated? No; Casts Negative LPF (Negative); Crystals Negative HPF (Negative); Epithelial Cells Rare HPF (Negative); Mucus Negative (Negative); WBC 0-2 HPF (0-5)
[2023-11-05 11:25] LABS: Influenza A PCR Negative (Negative); Influenza B PCR Negative (Negative); RSV PCR Negative (Negative)
[2023-11-05 11:27] LABS: COVID-19 PCR Positive (Negative); Source Nasopharynx
[2023-11-05] MEDS: Dexamethasone 10 MG/ML VIAL IVP (11:55)
[2023-11-05] MEDS: Ketorolac 15 MG/ML VIAL IVP (11:58)
[2023-11-05] MEDS: ACETAMINOPHEN 1,000 MG/100 ML BTL 400 MG IVPB (12:00)
[2023-11-05] MEDS: Albuterol/Ipratropium 3 ML UPD VIAL UPD (12:01)
[2023-11-05] MEDS: Normal Saline 1,000 ML 150 ML IV (12:02)
[2023-11-05] MEDS: MAGNESIUM SULFATE 2 GM/50 ML BAG IVPB (12:23)
--- NOTE | 2023-11-05 17:29 | W.PM.HP.N ---
Date of service: 11/05/23 Time of Service: 17:29 Assessment and Plan Assessment and plan (1) Acute hypoxic respiratory failure: Status: Acute Assessment and plan: due to covid 19, started on treatment wean oxygen as able (2) COVID-19: Status: Acute Assessment and plan: admitted to med/surg with oxygen requirements continue remdesivir and dexamethasone (3) CAD (coronary artery disease) of artery bypass graft: Assessment and plan: stable (4) BPH (benign prostatic hyperplasia): (5) Rheumatoid arthritis: History of Present Illness History of Present Illness Chief Complaint: shortness of breath Review of Systems All systems reviewed & are unremarkable except as noted in HPI and below PFSH All Active Problems (Updated 11/08/23 @ 00:05 by LINWOOD GRAHAM) Pneumonia (Acute) Acute hypoxic respiratory failure (Acute) COVID-19 (Acute) Wheezing on auscultation (Acute) Recurrent infections (Acute) Neuromuscular respiratory weakness (Acute) Diaphragm paralysis (Acute) Macular degeneration (Acute) Sacroiliac joint pain (Acute) Hip pain (Acute) Knee pain (Acute) Prediabetes (Acute) Dental infection (Acute) Skin lesion (Acute) COVID-19 virus infection (Acute) Nasal mucosa dry (Acute) Chronic cough (Acute) Basal cell carcinoma (Acute) Actinic keratosis (Acute) Ureterolithiasis (Acute) Coronary artery disease (Chronic) Chest pain (Acute) Wheezing (Acute) Nocturnal cough (Acute) Cardiomyopathy (Acute) SOB (shortness of breath) (Acute) Melena (Acute) Dysphagia (Acute) Strain of calf muscle (Acute 06/30/19) Leg hematoma (Acute 06/30/19) Tubular adenoma of colon (Chronic) GERD (gastroesophageal reflux disease) (Chronic) Xerostomia (Acute 08/17/13) Winged scapula of left side (Acute 04/09/16) Tendinitis of left rotator cuff (Acute 04/09/16) Rhinitis (Acute 08/31/13) Personal history of antineoplastic chemotherapy (Acute 10/14/17) Parsonage-Aslmon syndrome (Acute 04/09/16) Epistaxis (Acute 10/14/17) Acute sinusitis (Acute 08/17/13) Medical History Sjogren syndrome, unspecified Actinic keratoses Tubular adenoma Other osteoporosis with current pathological fracture, vertebra(e), subsequent encounter for fracture with routine healing Hypertension Rosacea GERD (gastroesophageal reflux disease) Peripheral neuropathy Sicca syndrome Overweight History of partial colectomy Hypothyroidism Hyperlipidemia Dyspnea Depression Pulmonary hypertension Anxiety Pharyngeal disorder Polyarthralgia Steroid-induced osteoporosis Elevated hemidiaphragm Epistaxis Hx of ventral hernia repair Insomnia Rheumatoid arthritis Complicated grief Surgical History Stented coronary artery (~03/20/19) Hernia Repair, Incisional Colonoscopy - IV Sedation (~11/15/09) 09/30/2019 [facility] sessile repeat 3 yrs per Violeta note Colectomy Social History Smoking/Tobacco Use Status: Never Smoking risk assessment performed?: Yes Alcohol Intake: never Drug use: Never Substance use type: does not use Housing: apartment What type of physical activity do you participate in: none Do you feel safe at home: Yes Do you feel safe in your relationship?: Yes Meds Allergies and Home Medications Allergies Allergy/AdvReac Type Severity Reaction Status Date / Time abatacept [From Orencia] AdvReac Severe Nausea Verified 11/05/23 10:34 lisinopril AdvReac Mild cough Verified 11/05/23 09:48 calcium AdvReac kidney Verified 11/05/23 09:48 stones Home Medications Medication Instructions Recorded Confirmed Type Prilosec 40 mg capsule,delayed 40 mg PO DAILY 11/11/12 11/05/23 History release (omeprazole) cholecalciferol (vitamin D3) 25 1,000 unit PO DAILY 11/11/12 11/05/23 History mcg (1,000 unit) tablet multivitamin with minerals 1 ea PO DAILY 11/11/12 11/05/23 History aspirin 81 mg tablet,delayed 81 mg PO DAILY 02/20/14 11/05/23 History release (Aspir-) ascorbic acid (vitamin C) 500 mg 500 mg PO DAILY 09/28/15 11/05/23 History tablet (Vitamin C) albuterol sulfate 90 mcg/actuation 1 - 2 puff inhalation Q6H PRN 12/22/15 11/05/23 History aerosol inhaler (ProAir HFA) nitroglycerin 0.4 mg sublingual 0.4 mg sublingual ONCE 05/28/18 11/05/23 History tablet venlafaxine 150 mg 150 mg PO DAILY 07/01/19 11/05/23 History capsule,extended release 24 hr (Effexor XR) bupropion HCl 150 mg tablet,12 hr 150 mg PO QAM 12/08/19 11/05/23 History sustained-release (Wellbutrin SR) diclofenac sodium 3 % topical gel 1 applic topical TID PRN 12/08/19 11/05/23 History isosorbide mononitrate 30 mg 30 mg PO DAILY 12/08/19 11/05/23 History tablet,extended release 24 hr venlafaxine 75 mg capsule,extended 75 mg PO DAILY 12/08/19 11/05/23 History release 24 hr metoprolol succinate 25 mg 25 mg PO HS 03/07/21 11/05/23 History tablet,extended release 24 hr amlodipine 2.5 mg tablet 2.5 mg PO DAILY #90 tabs 03/24/21 11/05/23 Rx atorvastatin 10 mg tablet 20 mg PO DAILY 04/02/22 11/05/23 History montelukast 10 mg tablet 10 mg PO DAILY 04/02/22 11/05/23 History trazodone 50 mg tablet 50 mg PO HS 04/02/22 11/05/23 History metronidazole 1 % topical gel 1 applic topical BID 07/11/22 11/05/23 History rituximab 10 mg/mL IV 09/21/22 11/05/23 History concentrate,intravenous (Rituxan) acetaminophen 500 mg tablet 500 mg PO Q6H PRN 02/20/23 11/05/23 History loratadine 10 mg tablet (Allergy 10 mg PO DAILY 02/20/23 11/05/23 History Relief (loratadine)) ondansetron 4 mg disintegrating 4 mg PO TID PRN 07/04/23 11/05/23 History tablet albuterol sulfate 2.5 mg/3 mL 2.5 mg (3 mL) inhalation QID PRN 07/09/23 11/05/23 Rx (0.083 %) solution for nebulization shortness of breath or wheezing #180 mL vitamins A,C,F-rhmj-dokczk 4,296 1 cap PO DAILY 08/06/23 11/05/23 History mcg-226 mg-90 mg capsule (PreserVision AREDS) dexamethasone 4 mg tablet See Rx Instructions .Route 11/07/23 Rx .COMPLEX #3 tabs guaifenesin 600 mg tablet, 600 mg PO BID #14 tabs 11/07/23 Rx extended release 12 hr (Mucinex) levothyroxine 100 mcg tablet 100 mcg PO DAILY 11/07/23 11/07/23 History Results Labs 11/07/23 12:35 11/07/23 12:35 Labs: Laboratory Results - last 24 hr 11/05/23 11/05/23 11/05/23 10:00 10:10 10:55 WBC 15.51 H RBC 5.27 Hgb 15.4 Hct 46.6 MCV 88 MCH 29.2 MCHC 33.0 RDW 13.7 Plt Count 270 MPV 8.9 Immature Gran % 0.4 Neutrophils % 81.4 Lymphocytes % 9.3 Monocytes % 6.3 Eosinophils % 2.4 Basophils % 0.2 Nucleated RBC % 0.0 Absolute Neutrophils 12.63 H Absolute Lymphocytes 1.44 Absolute Monocytes 0.98 H Absolute Eosinophils 0.37 Absolute Basophils 0.03 ESR 21 H D-Dimer 658 H VBG pH 7.39 VBG pCO2 52 H VBG pO2 29 VBG HCO3 31 H VBG Total CO2 28 VBG O2 Saturation 54 VBG Base Excess 6 H VBG Lactate 1.0 Sodium 135 L Potassium 3.9 Chloride 98 Carbon Dioxide 29.8 Anion Gap 7.2 BUN 12 Creatinine 1.0 Est GFR (CKD-EPI 2020) 78.49 Glucose 125 H Calcium 9.3 Magnesium 1.6 L Total Bilirubin 0.5 AST 18 ALT 24 Alkaline Phosphatase 128 H Troponin I < 50 C-Reactive Protein 13.64 H NT-Pro-B Natriuret Pep 49 Total Protein 7.1 Albumin 3.0 L Lipase 19 Procalcitonin < 0.1 Urine Color Yellow Urine Clarity Clear Urine pH 7.0 Ur Specific [place] 1.020 Urine Protein Negative Urine Ketones Negative Urine Blood Small H Urine Nitrite Negative Urine Bilirubin Negative Urine Urobilinogen 0.2 Ur Leukocyte Esterase Negative Urine RBC 5-10 H Urine WBC 0-2 Ur Epithelial Cells Rare Urine Crystals Negative Urine Bacteria Negative Urine Casts Negative Urine Mucus Negative Ur Culture Indicated? No Urine Glucose Negative COVID-19 Source Nasopharynx SARS-CoV-2 (PCR) Positive A Influenza Type A (PCR) Negative Influenza Type B (PCR) Negative RSV (PCR) Negative Last Vital Signs Temp 37.0 C 11/05/23 14:45 Pulse 112 H 11/05/23 14:45 Resp 18 11/05/23 14:45 BP 146/81 H 11/05/23 14:45 Pulse Ox 92 11/05/23 14:45 Time Spent Time spent with Patient: 55-74 minutes Time was spent: preparing to see the patient(eg.review tests), obtaining and/or reviewing separately otained hiistory, ordering medications,tests, procedures, indepentently interpreting results and counseling the patient
[2023-11-05] MEDS: REMDESIVIR 200 MG in Normal Saline 250 ML 250 MG IVPB (18:44)
[2023-11-05] MEDS: traZODone 50 MG TAB PO (21:21)
[2023-11-05] MEDS: Metoprolol CR 25 MG TABCR PO (21:22)
[2023-11-06 00:06] VITALS: BP 150/88; PULSE 95; RESP 18; TEMP 36.9; O2SAT 93
[2023-11-06 05:35] VITALS: O2SAT 93
[2023-11-06] MEDS: Levothyroxine 88 MCG TAB 100 MCG PO (05:35)
[2023-11-06 07:27] VITALS: BP 150/90; PULSE 96; RESP 19; TEMP 36.6; O2SAT 94
[2023-11-06] MEDS: Omeprazole 20 MG CAPCR 40 MG PO (07:56)
[2023-11-06] MEDS: Cholecalciferol (Vitamin D3) 1,000 UNIT TAB 1000 UNITS PO (07:57)
[2023-11-06] MEDS: Venlafaxine 75 MG CAPCR PO (07:57)
[2023-11-06] MEDS: Isosorbide Mononitrate 30 MG TABCR PO (07:57)
[2023-11-06] MEDS: Dexamethasone 4 MG TAB 6 MG PO (07:58)
[2023-11-06] MEDS: Venlafaxine 150 MG CAPCR PO (07:58)
[2023-11-06] MEDS: Multivitamin TAB 1 TAB PO (07:58)
[2023-11-06] MEDS: Loratidine 10 MG TAB PO (07:59)
[2023-11-06] MEDS: Ascorbic Acid 500 MG TAB PO (07:59)
[2023-11-06] MEDS: amLODIPine 2.5 MG TAB PO (08:00)
[2023-11-06] MEDS: Atorvastatin 20 MG TAB PO (08:00)
[2023-11-06] MEDS: Aspirin E.C. 81 MG TABEC PO (08:01)
[2023-11-06] MEDS: buPROPion-CR 150 MG TABCR PO (08:01)
[2023-11-06] MEDS: Montelukast 10 MG TAB PO (08:02)
--- NOTE | 2023-11-06 12:50 | W.PM.PROGNOT ---
Date of Service Date of service: 11/06/23 Time of Service: 12:50 Assessment and Plan Assessment and plan (1) Acute hypoxic respiratory failure: Status: Acute Assessment and plan: due to covid 19, started on treatment weaned off oxygen increase ambulation (2) COVID-19: Status: Acute Assessment and plan: admitted to med/surg with oxygen requirements continue remdesivir and dexamethasone day 2 (3) CAD (coronary artery disease) of artery bypass graft: Assessment and plan: stable (4) BPH (benign prostatic hyperplasia): (5) Rheumatoid arthritis: (6) Discharge planning issues: Status: Acute Assessment and plan: anticipate a discharge to home tomorrow with no services. discussed with Dr River Subjective Subjective Interval history since last seen: Weaned off oxygen still having productive cough and shortness of breath with activity has been up and ambulating in the room he is eating and drinking bowels and bladder functioning no chest pain abdominal pain nausea or vomiting Exam Const General: cooperative, comfortable and no acute distress Nutritional Appearance: well nourished Orientation: alert, awake and oriented x3 Chest Chest: normal inspection of the chest Resp Effort & Inspection: normal respiratory effort Auscultation: rhonchi (scattered throughout, improved aeration since yesterday) Cardio Rate: regular rate Rhythm: regular rhythm Objective Last Vital Signs Temp 36.6 C 11/06/23 07:27 Pulse 96 H 11/06/23 07:27 Resp 19 11/06/23 07:27 BP 150/90 H 11/06/23 07:27 Pulse Ox 94 11/06/23 07:27 Time Spent with Patient Time Spent with Patient: 25-34 minutes Time was spent: preparing to see the patient(eg.review tests), obtaining and/or reviewing separately otained hiistory, ordering medications,tests, procedures, indepentently interpreting results and counseling the patient
[2023-11-06] MEDS: REMDESIVIR 100 MG in Normal Saline 250 ML 250 MG IVPB (13:51)
[2023-11-06] MEDS: Normal Saline Flush 10 ML SYR (13:51)
[2023-11-06 14:41] VITALS: BP 136/83; PULSE 88; RESP 18; TEMP 36.7; O2SAT 92
--- NOTE | 2023-11-06 16:36 | INITIAL_ITS ---
Date of service: 11/06/23 Time of Service: 16:36 Care Management Initial Assmt Initial Assessment REASON FOR HOSPITALIZATION:: Hypoxic respiratory failure, COVID 19 PREVIOUS FUNCTIONAL STATUS/SOCIAL/FAMILY SUPPORTS:: Wesly resides alone in [place], his brother Leonardo lives right next door and his sister Marilu lives in [place]. Wesly shares he has an older sister who recently fell and broke her hip and is now in a custodial, he shares that she has dementia which his mother and another sister had before their passing. He shares concerns that he will develop the disease as well, but has not noticed any memories issues. Wesly shares that he has a 13 year old great niece who comes to help at home, and they are very close. He remains independent with ADLs and continues to drive. CURRENT FUNCTIONAL STATUS:: COVID Precautions; phone contact only. Wesly was pleasant in conversation over the phone. During assessment, he identified food insecurity stating that groceries were becoming more difficult as he only gets a supplemental amount of $16/mth through [employer]. CM reviewed community based supports and Wesly was agreeable to [facility] referral for [facility], stating I'm open to anything. ADVANCE DIRECTIVES:: None on file. Has patient been provided with info about the portal/API?: Yes Did the patient sign up for the portal?: No CODE STATUS:: Full Code INSURANCE COVERAGE / FINANCIAL ISSUES:: [facility] PRIMARY CARE PHYSICIAN:: Arelis Michele POTENTIAL DISCHARGE NEEDS:: Follow up appointments. PATIENT/FAMILY EDUCATION NEEDS:: Review discharge instructions, discuss [facility] [employer]. ANTICIPATED BARRIERS TO DISCHARGE:: None identified. TRANSPORTATION:: Via private vehicle with family. PLAN:: Anticipate Wesly will return home when ready per MD, follow up with his PCP and plan of care as prescribed. CM completed referral to [facility] for [facility] and [facility] and reviewed community resources, as well. CM continues to follow. PFSH All Active Problems (Updated 11/05/23 @ 14:42 by LINWOOD GRAHAM) Pneumonia (Acute) Acute hypoxic respiratory failure (Acute) COVID-19 (Acute) Wheezing on auscultation (Acute) Recurrent infections (Acute) Neuromuscular respiratory weakness (Acute) Diaphragm paralysis (Acute) Macular degeneration (Acute) Sacroiliac joint pain (Acute) Hip pain (Acute) Knee pain (Acute) Prediabetes (Acute) Dental infection (Acute) Skin lesion (Acute) COVID-19 virus infection (Acute) Nasal mucosa dry (Acute) Chronic cough (Acute) Basal cell carcinoma (Acute) Actinic keratosis (Acute) Ureterolithiasis (Acute) Coronary artery disease (Chronic) Chest pain (Acute) Wheezing (Acute) Nocturnal cough (Acute) Cardiomyopathy (Acute) SOB (shortness of breath) (Acute) Melena (Acute) CAD (coronary artery disease) of artery bypass graft (Acute) BPH (benign prostatic hyperplasia) (Chronic) Dysphagia (Acute) Strain of calf muscle (Acute 06/30/19) Leg hematoma (Acute 06/30/19) Tubular adenoma of colon (Chronic) GERD (gastroesophageal reflux disease) (Chronic) Xerostomia (Acute 08/17/13) Winged scapula of left side (Acute 04/09/16) Tendinitis of left rotator cuff (Acute 04/09/16) Rhinitis (Acute 08/31/13) Rheumatoid arthritis (Acute 10/14/17) Personal history of antineoplastic chemotherapy (Acute 10/14/17) 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) Epistaxis (Acute 10/14/17) Acute sinusitis (Acute 08/17/13) Medical History Sjogren syndrome, unspecified Actinic keratoses Tubular adenoma Other osteoporosis with current pathological fracture, vertebra(e), subsequent encounter for fracture with routine healing Hypertension Rosacea GERD (gastroesophageal reflux disease) Peripheral neuropathy Sicca syndrome Overweight History of partial colectomy Hypothyroidism Hyperlipidemia Dyspnea Depression Pulmonary hypertension Anxiety Pharyngeal disorder Polyarthralgia Steroid-induced osteoporosis Elevated hemidiaphragm Epistaxis Hx of ventral hernia repair Insomnia Rheumatoid arthritis Complicated grief Surgical History Stented coronary artery (~03/20/19) Hernia Repair, Incisional Colonoscopy - IV Sedation (~11/15/09) 09/30/2019 [facility] zoran repeat 3 yrs per Violeta note Colectomy Social History Smoking/Tobacco Use Status: Never Smoking risk assessment performed?: Yes Alcohol Intake: never Drug use: Never Substance use type: does not use Housing: apartment What type of physical activity do you participate in: none Do you feel safe at home: Yes Do you feel safe in your relationship?: Yes SDOH(Care Management) Screening Will the Patient Participate in the Screening?: Yes Do you worry about having a steady place to live?: no Problems where you live: no known problems In the past 12 months, have you had to go without electric, gas, oil or water in your home?: no Have you or anyone in your house had to go without enough food to eat?: yes Has lack of transportation kept you from medical appointments or from doing things needed for daily living?: no Has anyone in your support network made you feel unsafe for any reason?: no Social Determinants of Health Comments(SDOH Details): $16/mth 3 squares: barely covers a few loafs of bread. Health Related Social Needs Health related social needs: food insecurity(Z59.41) Health related social needs details: [facility] and [facility] referral to [facility].
[2023-11-06] MEDS: Enoxaparin 40 MG/0.4 ML SYR SC (17:16)
[2023-11-06] MEDS: traZODone 50 MG TAB PO (22:25)
[2023-11-06] MEDS: Metoprolol CR 25 MG TABCR PO (22:25)
[2023-11-07 00:25] VITALS: BP 161/83; PULSE 104; RESP 17; TEMP 36.8; O2SAT 92
[2023-11-07] MEDS: Levothyroxine 88 MCG TAB 100 MCG PO (06:13)
[2023-11-07 07:35] VITALS: BP 151/84; PULSE 89; RESP 18; TEMP 36.1; O2SAT 92
[2023-11-07] MEDS: Isosorbide Mononitrate 30 MG TABCR PO (08:52)
[2023-11-07] MEDS: Aspirin E.C. 81 MG TABEC PO (08:52)
[2023-11-07] MEDS: Multivitamin TAB 1 TAB PO (08:52)
[2023-11-07] MEDS: amLODIPine 2.5 MG TAB PO (08:52)
[2023-11-07] MEDS: Atorvastatin 20 MG TAB PO (08:52)
[2023-11-07] MEDS: buPROPion-CR 150 MG TABCR PO (08:53)
[2023-11-07] MEDS: Loratidine 10 MG TAB PO (08:53)
[2023-11-07] MEDS: Venlafaxine 150 MG CAPCR PO (08:53)
[2023-11-07] MEDS: Ascorbic Acid 500 MG TAB PO (08:53)
[2023-11-07] MEDS: Dexamethasone 4 MG TAB 6 MG PO (08:53)
[2023-11-07] MEDS: Omeprazole 20 MG CAPCR 40 MG PO (08:53)
[2023-11-07] MEDS: Venlafaxine 75 MG CAPCR PO (08:53)
[2023-11-07] MEDS: Montelukast 10 MG TAB PO (08:53)
[2023-11-07] MEDS: Cholecalciferol (Vitamin D3) 1,000 UNIT TAB 1000 UNITS PO (08:53)
--- NOTE | 2023-11-07 12:16 | W.PM.DS.N ---
Date of service: 11/07/23 Time of Service: 12:20 DS: Diagnosis Discharge Diagnosis (1) Acute hypoxic respiratory failure: Status: Acute (2) COVID-19: Status: Acute (3) CAD (coronary artery disease) of artery bypass graft: Status: Acute (4) BPH (benign prostatic hyperplasia): Status: Chronic (5) Rheumatoid arthritis: Status: Acute Discharge Plan Disposition Patient Disposition: Home Condition: Improving Discharge Details Reason For Visit: Hypoxic resp failure, covid 19 Admit Date/Time: 11/05/23 13:14 Admit Provider: Patrick River Attending Provider: Patrick River Primary Care Provider: Arelis Michele V Hospital Course Hospital Course: This 73-year-old male patient with past medical history of coronary artery disease, benign prostatic hyperplasia, depression, prediabetes and GERD presented to the ED at [facility] on 11/05/2023 via private vehicle and ambulating with chief complaint of treatment failure for pneumonia. Patient reported taking Augmentin and doxycycline for pneumonia to 3 weeks ago without any improvement, continued lethargy, cough, and shortness of breath. Patient reported feeling tired, coughing to the point of gagging but denied hemoptysis, syncope, chest pain, nausea, vomiting, abdominal pain or dysuria. 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 The chest CT results showed bilateral basilar nonspecific infiltrate. Procalcitonin was negative. The patient was tested for COVID with the positive results. The patient was admitted for COVID-19 infection most likely causing pneumonia and the patient completed a 3-day course of remdesivir in addition to dexamethasone. The patient will go home on taper of dexamethasone and mucinex 600 mg orally for 7 days. The patient required follow-up with his primary care practitioner within 1 to 2-week. During the stay, the patient received his home medicine regimen to treat his chronic conditions. Discussed with Dr. River Home Meds and New Rx's Prescriptions: New dexamethasone 4 mg Tablet See Rx Instructions .ROUTE .COMPLEX Qty: 3 0RF Rx Instructions: Take 4 mg orally for 2 days starting on 11/08/2023 then 2mg orally for 2 days then stop. guaifenesin [Mucinex] 600 mg tablet extended release 12hr 600 mg PO BID Qty: 14 0RF Continued PreserVision AREDS 4,296 mcg-226 mg-90 mg capsule 1 cap PO DAILY venlafaxine 75 mg capsule,extended release 24hr 75 mg PO DAILY Rx Instructions: taken with 150mg capsule bupropion HCl [Wellbutrin SR] 150 mg tablet sustained-release 12 hr 150 mg PO QAM isosorbide mononitrate 30 mg tablet extended release 24 hr 30 mg PO DAILY diclofenac sodium 3 % gel 1 applic TP TID PRN amlodipine 2.5 mg tablet 2.5 mg PO DAILY Qty: 90 3RF atorvastatin 10 mg tablet 20 mg PO DAILY trazodone 50 mg tablet 50 mg PO HS montelukast 10 mg tablet 10 mg PO DAILY ondansetron 4 mg tablet,disintegrating 4 mg PO TID PRN omeprazole [Prilosec] 40 MG capsule,delayed release(DR/EC) 40 mg PO DAILY multivitamin with minerals 1 EACH tablet 1 ea PO DAILY cholecalciferol (vitamin D3) 1,000 UNIT tablet 1,000 unit PO DAILY ascorbic acid (vitamin C) [Vitamin C] 500 MG tablet 500 mg PO DAILY albuterol sulfate [ProAir HFA] 8.5 GM HFA aerosol inhaler 1 - 2 puff Inhalation Q6H PRN metronidazole 1 % gel 1 applic topical BID Rituxan 10 mg/mL concentrate IV acetaminophen 500 mg tablet 500 mg PO Q6H PRN loratadine [Allergy Relief (loratadine)] 10 mg tablet 10 mg PO DAILY albuterol sulfate 2.5 mg /3 mL (0.083 %) solution for nebulization 2.5 mg inhalation QID PRN (Reason: shortness of breath or wheezing) Qty: 180 6RF aspirin [Aspir-81] 81 MG tablet,delayed release (DR/EC) 81 mg PO DAILY nitroglycerin 0.4 mg Tablet, Sublingual 0.4 mg SUBLINGUAL ONCE metoprolol succinate 25 mg tablet extended release 24 hr 25 mg PO HS venlafaxine [Effexor XR] 150 mg Capsule,Extended Release 24hr 150 mg PO DAILY levothyroxine 100 mcg tablet 100 mcg PO DAILY Discontinued doxycycline hyclate 100 mg capsule 100 mg PO BID Qty: 14 0RF Discharge Instructions Referrals: Arelis Michele MD [Primary Care Provider] - (1-2 week f/u with PCP, please.) Activity:: Activity as Tolerated Equipment/Supplies:: No Equipment Needed Diet:: As Tolerated Discharge Orders Discharge Orders: Discharge Order (Routine); Ordered 11/07/23 Ordered By: Akilah Acosta DS: Summary Time Spent with Patient providing and/or coordinating discharge services: Greater than 30 minutes Status at Discharge Functional status at discharge: independent ambulation Overall status at discharge: patient is progressing back to baseline Mental Status: mental status grossly normal Speech and Movement: speech and movement normal Mood: congruent mood Affect: normal affect Quality:SDOH Health Related Social Needs: Health related social needs food insecurity Health related social needs details M[facility] and [facility] Counseling referral to [facility]. Exam Narrative Exam Narrative: Constitutional The patient is sitting in chair, well groomed without acute distres HENT: Facial structures with normal appearance Eyes: Well aligned, intact ROM Neuro:alert and oriented to self, person, place time and situation. No neurological focal deficit Chest:Chest is symmetrical and normal appearance Resp: Normal respiratory pattern, speaks in full sentences, coarse ronchi clearing somewhat with cough to bilateral lung kwok Cardio: regular rhythm, S1, S2, bilateral radial and dorsalis pedis pulses are positive GI: Abdomen is not distended, soft and non tender, bowel sounds are present : Negative Costovertebral angle tenderness Back/spine/Pelvis: No back tenderness, normal alignment Integumentary: No skin lesions or rash Extremities: strength 5/5 to bilateral lower and upper extremities Psych: RASS 0, congruent mood and normal affect. Psych Mental Status: mental status grossly normal Speech and Movement: speech and movement normal Mood: congruent mood Affect: normal affect DS: Data Vitals/I&O Vitals and I&O: Vital Signs Temperature 36.1 C L 11/07/23 07:35 Temperature Source Tympanic 11/07/23 07:35 Pulse 89 11/07/23 07:35 Pulse Rhythm Regular 11/07/23 08:45 Pulse 108 H 11/05/23 14:20 Respiratory Rate 18 11/07/23 07:35 Respiratory Effort Normal, Non-Labored 11/07/23 08:45 Respiratory Depth Normal 11/07/23 08:45 Respiratory Pattern Normal 11/07/23 08:45 Blood Pressure 151/84 H 11/07/23 07:35 Blood Pressure Mean 88 11/05/23 14:16 Pulse Oximetry 92 11/07/23 07:35 Oxygen Delivery Method Room Air 11/07/23 07:35 Oxygen Flow Rate 0 11/07/23 07:35 Pain Level 0 11/07/23 00:25 Comment Nurse took vitals. 11/05/23 14:45 Intake & Output 11/06/23 11/07/23 11/07/23 23:59 11:59 23:59 Intake Total 250 / 430 Balance 250 / -170 Intake: IV 250 / 250 Other: Urine Appearance Clear Clear Comment pt voided x3 per pt voided x1 Voiding Methods Toilet Data Completed and Pending Labs on day of discharge: Preliminary micro results at discharge 11/05/23 10:45 Blood Culture - Preliminary Blood NO GROWTH 24 HOURS 11/05/23 10:10 Blood Culture - Preliminary Blood NO GROWTH 24 HOURS PFSH All Active Problems (Updated 11/05/23 @ 14:42 by LINWOOD GRAHAM) Pneumonia (Acute) Acute hypoxic respiratory failure (Acute) COVID-19 (Acute) Wheezing on auscultation (Acute) Recurrent infections (Acute) Neuromuscular respiratory weakness (Acute) Diaphragm paralysis (Acute) Macular degeneration (Acute) Sacroiliac joint pain (Acute) Hip pain (Acute) Knee pain (Acute) Prediabetes (Acute) Dental infection (Acute) Skin lesion (Acute) COVID-19 virus infection (Acute) Nasal mucosa dry (Acute) Chronic cough (Acute) Basal cell carcinoma (Acute) Actinic keratosis (Acute) Ureterolithiasis (Acute) Coronary artery disease (Chronic) Chest pain (Acute) Wheezing (Acute) Nocturnal cough (Acute) Cardiomyopathy (Acute) SOB (shortness of breath) (Acute) Melena (Acute) CAD (coronary artery disease) of artery bypass graft (Acute) BPH (benign prostatic hyperplasia) (Chronic) Dysphagia (Acute) Strain of calf muscle (Acute 06/30/19) Leg hematoma (Acute 06/30/19) Tubular adenoma of colon (Chronic) GERD (gastroesophageal reflux disease) (Chronic) Xerostomia (Acute 08/17/13) Winged scapula of left side (Acute 04/09/16) Tendinitis of left rotator cuff (Acute 04/09/16) Rhinitis (Acute 08/31/13) Rheumatoid arthritis (Acute 10/14/17) Personal history of antineoplastic chemotherapy (Acute 10/14/17) 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) Epistaxis (Acute 10/14/17) Acute sinusitis (Acute 08/17/13) Medical History Sjogren syndrome, unspecified Actinic keratoses Tubular adenoma Other osteoporosis with current pathological fracture, vertebra(e), subsequent encounter for fracture with routine healing Hypertension Rosacea GERD (gastroesophageal reflux disease) Peripheral neuropathy Sicca syndrome Overweight History of partial colectomy Hypothyroidism Hyperlipidemia Dyspnea Depression Pulmonary hypertension Anxiety Pharyngeal disorder Polyarthralgia Steroid-induced osteoporosis Elevated hemidiaphragm Epistaxis Hx of ventral hernia repair Insomnia Rheumatoid arthritis Complicated grief Surgical History Stented coronary artery (~03/20/19) Hernia Repair, Incisional Colonoscopy - IV Sedation (~11/15/09) 09/30/2019 [facility] zoran repeat 3 yrs per Violeta note Colectomy Social History Smoking/Tobacco Use Status: Never Smoking risk assessment performed?: Yes Alcohol Intake: never Drug use: Never Substance use type: does not use Housing: apartment What type of physical activity do you participate in: none Do you feel safe at home: Yes Do you feel safe in your relationship?: Yes Time Spent with Patient Time Spent with Patient: >85 minutes Time was spent: preparing to see the patient(eg.review tests), obtaining and/or reviewing separately otained hiistory, ordering medications,tests, procedures, referring, communicating with other health hospice care transitions coordinator, indepentently interpreting results, counseling the patient and care coordination
[2023-11-07] MEDS: REMDESIVIR 100 MG in Normal Saline 250 ML 250 MG IVPB (12:17)
[2023-11-07 12:48] LABS: Abs Immature Grans 0.14 10^3/uL (0.0-0.06); Absolute Basophil Count 0.05 10^3/uL (0.0-0.2); Absolute Lymphocyte Count 1.15 10^3/uL (1.2-3.4); Absolute Neutrophil Count 21.63 10^3/uL (1.2-6.7); Basophils % 0.2; HCT 48.3 % (40.0-50.0); HGB 16.2 g/dL (13.5-17.5); Immature Grans % 0.6; Lymphocytes % 4.8; MCH 29.8 pg (27.0-33.0); MCHC 33.5 % (32.0-36.0); MCV 89 fL (80-95); MPV 9.3 fL (8.0-11.0); Monocytes % 4.1; Neutrophils % 90.3; Platelet Count 342 10^3/uL (130-400); RBC 5.43 10^6/uL (4.36-5.78); RDW-SD 45.6 fL; WBC 23.95 10^3/uL (4.4-10.8)
[2023-11-07 12:50] LABS: Absolute Monocyte Count 0.98 10^3/uL (0.1-0.8)
[2023-11-07 12:55] LABS: Diff Comment Diff Reviewed; RBC Morphology Normal
[2023-11-07 12:56] LABS: Anion Gap 8.3 mmol/L (3-11); BUN 33 mg/dL (7-18); CO2 28.7 mmol/L (21.0-32.0); CREATININE 1.2 mg/dL (0.70-1.30); Calcium 9.7 mg/dL (8.5-10.1); Chloride 104 mmol/L (98-107); Estimated GFR 63.07 (mL/min/1.73m2); Glucose 117 mg/dL (74-106); Potassium 4.3 mmol/L (3.5-5.1); Sodium 141 mmol/L (136-145)
[2023-11-07 13:01] LABS: Magnesium 2.2 mg/dL (1.8-2.4)
--- NOTE | 2023-11-07 14:54 | CMDISCH_ITS ---
Date of service: 11/07/23 Time of Service: 14:54 LACE Index Scoring Tool Questions: Length of Stay (in days): 2 Was the patient admitted via the E.D.?: Yes Comorbidities: Any Tumor E.D. Visits: 0 Answers: Total Score: 7 Risk of Readmission: Low Risk Care Management Discharge Plan Reason for Hospitalization: Hypoxic respiratory failure, COVID 19 Discharge Plan: Wesly will return home when ready per MD, follow up with his PCP and plan of care as prescribed. CM completed referral to [facility] for [facility] and [facility] Counseling and reviewed community resources, as well. Wesly will drive himself home via private vehicle. Patient/Family Education Needs: Review discharge instructions, discuss Ask Me Three. Services Needed at Discharge: Home Delivered Meals SDOH Health Related Social Needs: Health related social needs food insecurity Health related social needs details [facility] and [facility] Co unseling referral to [facility]. Health related social needs: food insecurity(Z59.41) Health related social needs details: [facility] and [facility] Counseling referral to [facility]. Referrals and interventions: [facility], [facility], [facility]
[2023-11-07] MEDS: Enoxaparin 40 MG/0.4 ML SYR SC (15:33)
== END 2023-11-07 16:50 | disposition home or self-care (01) | DRG 177 ==
LOC: ER 13:39 → MS 14:42
PROVIDERS: Nurse Practitioner Acute Care; Admitting Provider Family Medicine; Emergency Provider Physician Assistant; PCP Family Medicine; Visit Provider Family Medicine
DX: U07.1 COVID-19 (principal); J12.82 Pneumonia due to coronavirus disease 2019; J96.01 Acute respiratory failure with hypoxia; I25.810 Atherosclerosis of coronary artery bypass graft(s) without angina pectoris; I42.9 Cardiomyopathy, unspecified; N40.0 Benign prostatic hyperplasia without lower urinary tract symptoms; M06.9 Rheumatoid arthritis, unspecified; R73.03 Prediabetes; K21.9 Gastro-esophageal reflux disease without esophagitis; G54.5 Neuralgic amyotrophy; M35.00 Sjogren syndrome, unspecified; M81.0 Age-related osteoporosis without current pathological fracture; I10 Essential (primary) hypertension; G62.9 Polyneuropathy, unspecified; E03.9 Hypothyroidism, unspecified; E78.5 Hyperlipidemia, unspecified; F32.A Depression, unspecified; I27.20 Pulmonary hypertension, unspecified; F41.9 Anxiety disorder, unspecified; G47.00 Insomnia, unspecified; J98.6 Disorders of diaphragm
CPT/HCPCS: 00123; 36415; 71250; 80048; 80053; 82805; 83690; 84145; 85652; 87040; 87637; 93005; 94640; 96365; 96366; 96367; 96375; 99285; J1650; 81003; 81015; 83605; 83735; 83880; 84484; 85025; 85379; 86140; 93010; 99223; 99232; 99239; J0131; J0248; J1100; J1885; J3475; J7620; J8540

== ENCOUNTER 2023-11-19 13:25 | Outpatient (REF) | payer OTHER, SELFPAY ==
[2023-11-19 15:49] LABS: Abs Immature Grans 0.07 10^3/uL (0.0-0.06); Absolute Basophil Count 0.06 10^3/uL (0.0-0.2); Absolute Eosinophil Count 0.62 10^3/uL (0.0-0.7); Absolute Lymphocyte Count 1.55 10^3/uL (1.2-3.4); Absolute Neutrophil Count 10.93 10^3/uL (1.2-6.7); Basophils % 0.4; Eosinophils % 4.3; HCT 48.6 % (40.0-50.0); HGB 15.8 g/dL (13.5-17.5); Immature Grans % 0.5; Lymphocytes % 10.8; MCH 29.3 pg (27.0-33.0); MCHC 32.5 % (32.0-36.0); MCV 90 fL (80-95); MPV 9.3 fL (8.0-11.0); Monocytes % 7.7; Neutrophils % 76.3; Platelet Count 320 10^3/uL (130-400); RDW 13.9 % (11.8-14.1); RDW-SD 45.5 fL; WBC 14.32 10^3/uL (4.4-10.8)
[2023-11-19 16:02] LABS: ALT 27 U/L (16-63); AST 24 U/L (15-37); Albumin 2.7 g/dL (3.4-5.0); Alkaline Phosphatase 128 U/L (46-116); Anion Gap 8.8 mmol/L (3-11); BUN 15 mg/dL (7-18); Bilirubin, Total 0.3 mg/dL (0.2-1.0); CO2 28.2 mmol/L (21.0-32.0); CREATININE 1.1 mg/dL (0.70-1.30); Calcium 9.6 mg/dL (8.5-10.1); Chloride 102 mmol/L (98-107); Estimated GFR 70.01 (mL/min/1.73m2); Glucose 130 mg/dL (74-106); Potassium 4.1 mmol/L (3.5-5.1); Sodium 139 mmol/L (136-145); Total Protein 6.8 g/dL (6.4-8.2)
== END 2023-11-19 13:26 | disposition home or self-care (01) ==
LOC: NCHCN 13:25
PROVIDERS: PCP Family Medicine; Visit Provider Family Medicine
DX: R05.3 Chronic cough (principal)
CPT/HCPCS: 80053; 85025; 86140

== ENCOUNTER → 2023-11-27 12:40 | Outpatient (BNVA) | payer OTHER, SELFPAY | PROVIDERS: PCP Family Medicine; Referring Provider Family Medicine; Visit Provider Physician Assistant Surgical | DX: J98.6 Disorders of diaphragm (principal); R05.3 Chronic cough; M06.9 Rheumatoid arthritis, unspecified; G70.9 Myoneural disorder, unspecified; J99 Respiratory disorders in diseases classified elsewhere; B99.9 Unspecified infectious disease | CPT/HCPCS: 99214 ==

== ENCOUNTER → 2023-12-28 11:58 | Outpatient (CLI) | payer OTHER, SELFPAY ==
--- NOTE | 2023-12-28 12:02 | DI.RAD_ITS ---
Exam(s) XR CHEST 2V PA LATERAL EXAM: XR CHEST 2V PA LATERAL CLINICAL HISTORY: recent pna, sob R06.02. TECHNIQUE: 2D digital imaging was performed. COMPARISON: CR XR CHEST 2V PA LATERAL from 08/29/[address] CHEST WO from 11/05/2023 FINDINGS: 2 views: Right hemidiaphragm again noted be elevated. Heart size unchanged in the mediastinum is not widened. Mild increased markings in the right lung base above the elevated hemidiaphragm consistent with scarr ing or atelectasis. Slightly increased markings in left midlung field may represent subtle infiltrate. There are no pleu ral effusions. IMPRESSION: Subtle findings bilaterally, as described above.. No pleural effusions. DATA REPOSITORY: RADIATION DOSE DELIVERED:
--- NOTE | 2023-12-28 12:46 | DI.VRAD_ITS ---
PROCEDURE INFORMATION: Exam: XR Chest Exam date and time: 12/28/2023 12:15 PM Age: 73 years old Clinical indication: Other: Recent pna, SOB TECHNIQUE: Imaging protocol: Radiologic exam of the chest. Views: 2 views. COMPARISON: CT CHEST WO 11/05/2023 12:28 PM FINDINGS: Lungs: Stable airspace opacity in the medial right middle lobe partially obscuring the right hemidiaphragm Pleural spaces: No pleural effusion. No pneumothorax. Heart/Mediastinum: No cardiomegaly. Diaphragm: Stable mild elevation the right hemidiaphragm. Bones/joints: Unremarkable. IMPRESSION: 1. Stable airspace opacity in the medial right middle lobe which may represent persistent pneumonia versus atelectasis. 2. Right lung volume is low with elevation of right hemidiaphragm. Dictated and Authenticated by: Ady Ruelas MD. Ordering:DORIE Montanez MD
== END ==
PROVIDERS: PCP Family Medicine; Visit Provider Physician Assistant
DX: R06.02 Shortness of breath (principal); R91.8 Other nonspecific abnormal finding of lung field
CPT/HCPCS: 71046

== ENCOUNTER 2023-12-28 15:39 | Outpatient (REF) | payer OTHER, SELFPAY | END 2023-12-28 15:40 | disposition home or self-care (01) | LOC: LBN 15:39 | PROVIDERS: PCP Family Medicine; Visit Provider Physician Assistant | DX: N39.0 Urinary tract infection, site not specified (principal) | CPT/HCPCS: 87086 ==

== ENCOUNTER 2023-12-30 14:42 | Emergency (ER) | payer OTHER, SELFPAY ==
[2023-12-30] VITALS (36 sets, daily range): BP systolic 107–211; BP diastolic 74–134; PULSE 87–134; RESP 11–34; TEMP 37.1; O2SAT 80–97
--- NOTE | 2023-12-30 15:21 | ED.GENADUL_ITS ---
Discharge Plan Disposition Patient Disposition: Home Condition: Improving Discharge Details Clinical Impression: Pneumonia Primary Care Provider: Arelis Michele V ED Provider: Justin Gilmore Home Meds and New Rx's Prescriptions: New amoxicillin-pot clavulanate 875-125 mg tablet 1 tab PO BID 7 Days Qty: 14 0RF azithromycin 250 mg tablet 250 mg PO DAILY 4 Days Qty: 4 0RF Rx Instructions: start on day 2 of therapy No Action PreserVision AREDS 4,296 mcg-226 mg-90 mg capsule 1 cap PO DAILY tamsulosin [Flomax] 0.4 mg capsule 0.4 mg PO QHS Qty: 7 0RF tamsulosin [Flomax] 0.4 mg capsule 0.4 mg PO DAILY Qty: 7 0RF venlafaxine 75 mg capsule,extended release 24hr 75 mg PO DAILY Rx Instructions: taken with 150mg capsule bupropion HCl [Wellbutrin SR] 150 mg tablet sustained-release 12 hr 150 mg PO QAM isosorbide mononitrate 30 mg tablet extended release 24 hr 30 mg PO DAILY diclofenac sodium 3 % gel 1 applic TP TID PRN amlodipine 2.5 mg tablet 2.5 mg PO DAILY Qty: 90 3RF atorvastatin 10 mg tablet 20 mg PO DAILY trazodone 50 mg tablet 50 mg PO HS montelukast 10 mg tablet 10 mg PO DAILY ondansetron 4 mg tablet,disintegrating 4 mg PO TID PRN omeprazole [Prilosec] 40 MG capsule,delayed release(DR/EC) 40 mg PO DAILY multivitamin with minerals 1 EACH tablet 1 ea PO DAILY cholecalciferol (vitamin D3) 1,000 UNIT tablet 1,000 unit PO DAILY ascorbic acid (vitamin C) [Vitamin C] 500 MG tablet 500 mg PO DAILY albuterol sulfate [ProAir HFA] 8.5 GM HFA aerosol inhaler 1 - 2 puff Inhalation Q6H PRN metronidazole 1 % gel 1 applic topical BID acetaminophen 500 mg tablet 500 mg PO Q6H PRN loratadine [Allergy Relief (loratadine)] 10 mg tablet 10 mg PO DAILY albuterol sulfate 2.5 mg /3 mL (0.083 %) solution for nebulization 2.5 mg inhalation QID PRN (Reason: shortness of breath or wheezing) Qty: 180 6RF aspirin [Aspir-81] 81 MG tablet,delayed release (DR/EC) 81 mg PO DAILY nitroglycerin 0.4 mg Tablet, Sublingual 0.4 mg SUBLINGUAL ONCE metoprolol succinate 25 mg tablet extended release 24 hr 25 mg PO HS venlafaxine [Effexor XR] 150 mg Capsule,Extended Release 24hr 150 mg PO DAILY levothyroxine 100 mcg tablet 100 mcg PO DAILY guaifenesin [Mucinex] 600 mg tablet extended release 12hr 600 mg PO BID Qty: 14 0RF Discharge Instructions Instructions: Pneumonia (ED) Additional Instructions: Please follow-up with primary care physician. Please return to the Emergency Department for any worsening symptoms HPI General Date/Time Provider Initiated Documentation: 12/30/23 14:56 . HPI Narrative: 73-year-old male presents with worsening productive cough for the last several days, productive of yellow-green sputum. Related Data Home Medications Medication Instructions Recorded Confirmed Prilosec 40 mg capsule,delayed 40 mg PO DAILY 11/11/12 12/30/23 release (omeprazole) cholecalciferol (vitamin D3) 25 1,000 unit PO DAILY 11/11/12 12/30/23 mcg (1,000 unit) tablet multivitamin with minerals 1 ea PO DAILY 11/11/12 12/30/23 aspirin 81 mg tablet,delayed 81 mg PO DAILY 02/20/14 12/30/23 release (Aspir-) ascorbic acid (vitamin C) 500 mg 500 mg PO DAILY 09/28/15 12/30/23 tablet (Vitamin C) albuterol sulfate 90 mcg/actuation 1 - 2 puff inhalation Q6H PRN 12/22/15 12/30/23 aerosol inhaler (ProAir HFA) nitroglycerin 0.4 mg sublingual 0.4 mg sublingual ONCE 05/28/18 12/30/23 tablet venlafaxine 150 mg 150 mg PO DAILY 07/01/19 12/30/23 capsule,extended release 24 hr (Effexor XR) bupropion HCl 150 mg tablet,12 hr 150 mg PO QAM 12/08/19 12/30/23 sustained-release (Wellbutrin SR) diclofenac sodium 3 % topical gel 1 applic topical TID PRN 12/08/19 12/30/23 isosorbide mononitrate 30 mg 30 mg PO DAILY 12/08/19 12/30/23 tablet,extended release 24 hr venlafaxine 75 mg capsule,extended 75 mg PO DAILY 12/08/19 12/30/23 release 24 hr metoprolol succinate 25 mg 25 mg PO HS 03/07/21 12/30/23 tablet,extended release 24 hr amlodipine 2.5 mg tablet 2.5 mg PO DAILY #90 tabs 03/24/21 12/30/23 atorvastatin 10 mg tablet 20 mg PO DAILY 04/02/22 12/30/23 montelukast 10 mg tablet 10 mg PO DAILY 04/02/22 12/30/23 trazodone 50 mg tablet 50 mg PO HS 04/02/22 12/30/23 metronidazole 1 % topical gel 1 applic topical BID 07/11/22 12/30/23 acetaminophen 500 mg tablet 500 mg PO Q6H PRN 02/20/23 12/30/23 loratadine 10 mg tablet (Allergy 10 mg PO DAILY 02/20/23 12/30/23 Relief (loratadine)) ondansetron 4 mg disintegrating 4 mg PO TID PRN 07/04/23 12/30/23 tablet albuterol sulfate 2.5 mg/3 mL 2.5 mg (3 mL) inhalation QID PRN 07/09/23 12/30/23 (0.083 %) solution for nebulization shortness of breath or wheezing #180 mL vitamins A,C,J-fylg-xhimdk 4,296 1 cap PO DAILY 08/06/23 12/30/23 mcg-226 mg-90 mg capsule (PreserVision AREDS) guaifenesin 600 mg tablet, 600 mg PO BID #14 tabs 11/07/23 12/30/23 extended release 12 hr (Mucinex) levothyroxine 100 mcg tablet 100 mcg PO DAILY 11/07/23 12/30/23 tamsulosin 0.4 mg capsule (Flomax) 0.4 mg PO DAILY #7 caps 12/28/23 12/30/23 tamsulosin 0.4 mg capsule (Flomax) 0.4 mg PO QHS #7 caps 12/28/23 12/30/23 amoxicillin 875 mg-potassium 1 tab PO BID 7 days #14 tabs 12/30/23 clavulanate 125 mg tablet azithromycin 250 mg tablet 250 mg PO DAILY 4 days #4 tabs 12/30/23 Previous Rx's Medication Instructions Recorded amlodipine 2.5 mg tablet 2.5 mg PO DAILY #90 tabs 03/24/21 albuterol sulfate 2.5 mg/3 mL 2.5 mg (3 mL) inhalation QID PRN 07/09/23 (0.083 %) solution for nebulization shortness of breath or wheezing #180 mL guaifenesin 600 mg tablet, 600 mg PO BID #14 tabs 11/07/23 extended release 12 hr (Mucinex) tamsulosin 0.4 mg capsule (Flomax) 0.4 mg PO DAILY #7 caps 12/28/23 tamsulosin 0.4 mg capsule (Flomax) 0.4 mg PO QHS #7 caps 12/28/23 amoxicillin 875 mg-potassium 1 tab PO BID 7 days #14 tabs 12/30/23 clavulanate 125 mg tablet azithromycin 250 mg tablet 250 mg PO DAILY 4 days #4 tabs 12/30/23 Allergies Allergy/AdvReac Type Severity Reaction Status Date / Time abatacept [From [facility]] AdvReac Severe Nausea Verified 12/30/23 14:49 lisinopril AdvReac Mild cough Verified 12/30/23 14:49 calcium AdvReac kidney Verified 12/30/23 14:49 stones General Stated Complaint: RespSymp SHANEKA: 3 Review of Systems Narrative: Review of Systems Constitutional: negative Eyes: negative ENT: negative Cardiovascular: negative Respiratory: Cough Gastrointestinal: negative : negative Musculoskeletal: negative Skin: negative Neurologic: negative Psych: negative Exam Narrative Exam Narrative: Physical Examination General: alert, awake, cooperative, resting comfortably, no acute distress HEENT: normocephalic, atraumatic; PERRL, EOM intact, conjunctiva normal; no nasal discharge; moist mucous membranes, oral and pharyngeal mucosa normal, tolerating secretions Neck: supple, trachea midline; full ROM Chest: normal to inspection Respiratory: normal respiratory effort, speaking in full sentences, clear to auscultation, no wheezing, rales or rhonchi Cardiac: regular rate, regular rhythm, S1S2 intact, no murmurs rubs or gallops GI: abdomen soft, non-tender, non-distended; no palpable mass or hepatosplenomegaly Skin: no lesions, rashes or trauma appreciated Neuro: AAOx3, normal speech, moving all extremities Extremities: No peripheral edema Psych: Appropriate mood and affect Course Vital Signs Vital signs: Vital Signs Temperature 37.1 C 12/30/23 14:50 Pulse 87 12/30/23 14:50 Respiratory Rate 18 12/30/23 14:50 Blood Pressure 189/113 H 12/30/23 14:50 Pulse Oximetry 91 L 12/30/23 14:50 Temperature 37.1 C 12/30/23 14:50 Temperature Source Temporal Artery Scan 12/30/23 14:50 Pulse 87 12/30/23 14:50 Respiratory Rate 18 12/30/23 14:50 Respiratory Effort Short of Breath 12/30/23 15:08 Blood Pressure 189/113 H 12/30/23 14:50 Blood Pressure Position Sitting 12/30/23 14:50 Pulse Oximetry 91 L 12/30/23 14:50 Oxygen Delivery Method Room Air 12/30/23 14:50 Oxygen Flow Rate 0 12/30/23 14:50 Pain Level 6 12/30/23 14:50 Medical Decision Making 73-year-old male history of pneumonia presents with worsening productive cough over the last several days, intermittent episodes of hypoxia, currently 91% on room air speaking full sentences lungs clear bilaterally no peripheral edema. Consider recurrent pneumonia versus viral pneumonia versus less likely CHF lower suspicion for PE or ACS. Screening labs chest x-ray nebs steroids close reassessment 17 00 patient brought up green-jiang mucus with cough. Will empirically start Augmentin and azithromycin. Persistently hypertense will attempt to control blood pressure with hydralazine, will also provide dose of Lasix given x-ray findings. Patient persistently in the high 80s low 90s on room air. Will continue with another neb close reassessment of respiratory status. Patient would like to go home 18: 01 resting actively no acute distress. Saturating 91% on room air speaking full sentences. Will prescribe Augmentin and azithromycin for home home care instructions and return precautions given. Quality:SDOH Health Related Social Needs: Health related social needs food insecurity Health related social needs details [facility] unseling referral to [facility]. [facility] All Active Problems (Updated 12/30/23 @ 18:02 by Justin Gilomre MD) Pneumonia (Acute) Discharge planning issues (Acute) Acute hypoxic respiratory failure (Acute) Wheezing on auscultation (Acute) Recurrent infections (Acute) Neuromuscular respiratory weakness (Acute) Diaphragm paralysis (Acute) Macular degeneration (Acute) Sacroiliac joint pain (Acute) Hip pain (Acute) Knee pain (Acute) Prediabetes (Acute) Dental infection (Acute) Skin lesion (Acute) COVID-19 virus infection (Acute) Nasal mucosa dry (Acute) Chronic cough (Acute) Basal cell carcinoma (Acute) Actinic keratosis (Acute) Ureterolithiasis (Acute) Coronary artery disease (Chronic) Chest pain (Acute) Wheezing (Acute) Nocturnal cough (Acute) Cardiomyopathy (Acute) SOB (shortness of breath) (Acute) Melena (Acute) Dysphagia (Acute) Strain of calf muscle (Acute 06/30/19) Leg hematoma (Acute 06/30/19) Tubular adenoma of colon (Chronic) GERD (gastroesophageal reflux disease) (Chronic) Xerostomia (Acute 08/17/13) Winged scapula of left side (Acute 04/09/16) Tendinitis of left rotator cuff (Acute 04/09/16) Rhinitis (Acute 08/31/13) Personal history of antineoplastic chemotherapy (Acute 10/14/17) 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) Epistaxis (Acute 10/14/17) Acute sinusitis (Acute 08/17/13) Medical History Sjogren syndrome, unspecified Actinic keratoses Tubular adenoma Other osteoporosis with current pathological fracture, vertebra(e), subsequent encounter for fracture with routine healing Hypertension Rosacea GERD (gastroesophageal reflux disease) Peripheral neuropathy Sicca syndrome Overweight History of partial colectomy Hypothyroidism Hyperlipidemia Dyspnea Depression Pulmonary hypertension Anxiety Pharyngeal disorder Polyarthralgia Steroid-induced osteoporosis Elevated hemidiaphragm Epistaxis Hx of ventral hernia repair Insomnia Rheumatoid arthritis Complicated grief Surgical History Stented coronary artery (~03/20/19) Hernia Repair, Incisional Colonoscopy - IV Sedation (~11/15/09) 09/30/2019 [facility] sessile repeat 3 yrs per Violeta note Colectomy Social History Smoking/Tobacco Use Status: Never Smoking risk assessment performed?: Yes Alcohol Intake: never Drug use: Never Substance use type: does not use Housing: apartment What type of physical activity do you participate in: none Do you feel safe at home: Yes Do you feel safe in your relationship?: Yes
[2023-12-30 15:31] LABS: Abs Immature Grans 0.05 10^3/uL (0.0-0.06); Absolute Eosinophil Count 0.56 10^3/uL (0.0-0.7); Absolute Lymphocyte Count 1.44 10^3/uL (1.2-3.4); Absolute Monocyte Count 0.61 10^3/uL (0.1-0.8); Basophils % 0.4; HGB 15.4 g/dL (13.5-17.5); Immature Grans % 0.4; Lymphocytes % 12.8; MCH 29.1 pg (27.0-33.0); MCHC 32.1 % (32.0-36.0); MCV 91 fL (80-95); MPV 9.8 fL (8.0-11.0); Monocytes % 5.4; Platelet Count 193 10^3/uL (130-400); RBC 5.29 10^6/uL (4.36-5.78); RDW 13.9 % (11.8-14.1); RDW-SD 46.5 fL; WBC 11.28 10^3/uL (4.4-10.8)
[2023-12-30] MEDS: Albuterol/Ipratropium 3 ML UPD VIAL UPD (15:31)
[2023-12-30] MEDS: Dexamethasone 10 MG/ML VIAL IVP (15:33)
[2023-12-30 15:37] LABS: Absolute Basophil Count 0.05 10^3/uL (0.0-0.2); Absolute Neutrophil Count 8.57 10^3/uL (1.2-6.7)
[2023-12-30 15:46] LABS: ALT 34 U/L (16-63); AST 17 U/L (15-37); Alkaline Phosphatase 95 U/L (46-116); Anion Gap 6.2 mmol/L (3-11); BUN 10 mg/dL (7-18); Bilirubin, Total 0.4 mg/dL (0.2-1.0); CO2 34.8 mmol/L (21.0-32.0); CREATININE 1.3 mg/dL (0.70-1.30); Chloride 102 mmol/L (98-107); Estimated GFR 57.29 (mL/min/1.73m2); Glucose 129 mg/dL (74-106); Potassium 3.3 mmol/L (3.5-5.1); Sodium 143 mmol/L (136-145); Total Protein 6.4 g/dL (6.4-8.2)
[2023-12-30 15:48] LABS: Calcium 11.6 mg/dL (8.5-10.1)
--- NOTE | 2023-12-30 16:16 | DI.RAD_ITS ---
Exam(s) XR CHEST 2V PA LATERAL EXAM: XR CHEST 2V PA LATERAL CLINICAL HISTORY: productive cough. TECHNIQUE: 2D digital imaging was performed. COMPARISON: CR,XR XR CHEST 2V PA LATERAL from 12/28/2023 FINDINGS: 2 views: Heart size is normal. The mediastinum is not widened. Elevated right hemidiaphragm again noted. Mild increased markings in both lung bases appear unchange d from 2 days ago. There are no effusions. No pulmonary edema. IMPRESSION: Unchanged from 12/28/2023. DATA REPOSITORY: RADIATION DOSE DELIVERED:
[2023-12-30] MEDS: Amoxicillin 875/Clav. 125 TAB PO (17:05)
[2023-12-30] MEDS: Azithromycin 250 MG TAB 500 MG PO (17:05)
[2023-12-30] MEDS: Albuterol 2.5 MG/3 ML INH SOLN VIAL UPD (17:05)
[2023-12-30] MEDS: hydrALAZINE 20 MG/ML VIAL 10 MG IVP (17:06)
[2023-12-30] MEDS: Furosemide 40 MG/4 ML VIAL IVP (17:15)
--- NOTE | 2023-12-30 18:13 | NUR.NOTE ---
Referral given to Care Management for assistance Establishing Care with a new Provider as soon as possible for follow up to ER visit
== END 2023-12-30 18:25 | disposition home or self-care (01) ==
PROVIDERS: Emergency Provider Emergency Medicine; PCP Family Medicine
DX: J18.9 Pneumonia, unspecified organism (principal); R05.1 Acute cough; Z87.01 Personal history of pneumonia (recurrent); I10 Essential (primary) hypertension
CPT/HCPCS: 36415; 80053; 94640; 96374; 96375; 99284; 71046; 85025; 99283; J0360; J1100; J1940; J7613; J7620

== ENCOUNTER 2024-01-08 09:17 | Emergency (ER) | payer OTHER, SELFPAY ==
[2024-01-08] VITALS (34 sets, daily range): BP systolic 151–179; BP diastolic 81–108; PULSE 89–101; RESP 3–45; TEMP 36.7–36.8; O2SAT 91–93
--- NOTE | 2024-01-08 09:30 | RT.EKG_ITS ---
APPROVED REPORT Exam: Resting ECG Reason for Exam: weakness Patient Location: E HR:95 bpm ECG Measurements Heart Rate 95 AXIS OK 198 P 22 QRSd 117 QRS -17 QT 361 T 15 QTc 454 Conclusion Sinus rhythm...normal P axis, V-rate 60- 99 Probable left atrial enlargement...P >50mS, <-0.10mV V1 Nonspecific intraventricular conduction delay...QRSd >115mS, not LBBB/RBBB Abnrm R prog, consider ASMI or lead placement...Q >30mS, diminished R, V1-V2
[2024-01-08 10:13] LABS: BE (Venous) 10 mmol/L (-2-3); HCO3 (Venous) 35 mmol/L (23-28); O2 Sat (Venous) 37 %; TCO2 (Venous) 31 mmol/L (24-29); pCO2 (Venous) 54 mmHg (41-51); pH (Venous) 7.42 (7.31-7.41); pO2 (Venous) 23 mmHg
[2024-01-08 10:15] LABS: Abs Immature Grans 0.06 10^3/uL (0.0-0.06); Absolute Basophil Count 0.05 10^3/uL (0.0-0.2); Absolute Eosinophil Count 0.58 10^3/uL (0.0-0.7); Absolute Lymphocyte Count 2.44 10^3/uL (1.2-3.4); Absolute Monocyte Count 0.82 10^3/uL (0.1-0.8); Absolute Neutrophil Count 5.95 10^3/uL (1.2-6.7); Basophils % 0.5 %; Eosinophils % 5.9 %; HCT 46.3 % (40.0-50.0); HGB 14.9 g/dL (13.5-17.5); Immature Grans % 0.6 %; Lymphocytes % 24.6 %; MCH 28.8 pg (27.0-33.0); MCHC 32.2 % (32.0-36.0); MCV 89 fL (80-95); Monocytes % 8.3 %; Neutrophils % 60.1 %; Platelet Count 215 10^3/uL (130-400); RBC 5.18 10^6/uL (4.36-5.78); RDW 13.9 % (11.8-14.1); RDW-SD 45.8 fL
[2024-01-08] MEDS: predniSONE 20 MG TAB 40 MG PO (10:25)
[2024-01-08] MEDS: Levalbuterol 1.25 MG/3 ML UPD VIAL UPD (10:25)
[2024-01-08 10:45] LABS: Anion Gap 3.9 mmol/L (3-11); BUN 22 mg/dL (7-18); CO2 34.1 mmol/L (21.0-32.0); CREATININE 1.8 mg/dL (0.70-1.30); Chloride 104 mmol/L (98-107); Estimated GFR 38.77 (mL/min/1.73m2); Glucose 99 mg/dL (74-106); NT-proBNP 35 pg/mL (<300); Potassium 3.8 mmol/L (3.5-5.1); Sodium 142 mmol/L (136-145)
--- NOTE | 2024-01-08 10:45 | DI.RAD_ITS ---
Exam(s) XR CHEST 2V PA LATERAL EXAM: XR CHEST 2V PA LATERAL CLINICAL HISTORY: shortness of breath TECHNIQUE: 2D digital imaging was performed. Two views. COMPARISON: CR XR CHEST 2V PA LATERAL from 12/30/2023 FINDINGS: HEART: Normal size. Aorta: Not dilated. PULMONARY VASCULATURE: Normal. LUNGS: Low lung volumes. Linear scarring at left lung base. No focal area of consolidation or pulmo nary edema. PLEURAL SPACE: No pleural effusion or pneumothorax. BONE:Unremarkable for age. Soft tissues: Unremarkable. IMPRESSION: No acute abnormality. DATA REPOSITORY: RADIATION DOSE DELIVERED:
[2024-01-08 10:48] LABS: Calcium 13.5 mg/dL (8.5-10.1)
--- NOTE | 2024-01-08 10:54 | ED.GENADUL_ITS ---
Discharge Plan Disposition Patient Disposition: Home Discharge Details Clinical Impression: Dyspnea on exertion, Diaphragm paralysis, Chronic respiratory disease Primary Care Provider: Arelis Michele V ED Provider: Lisseth Xiao Home Meds and New Rx's Prescriptions: Continued PreserVision AREDS 4,296 mcg-226 mg-90 mg capsule 1 cap PO DAILY venlafaxine 75 mg capsule,extended release 24hr 75 mg PO DAILY Rx Instructions: taken with 150mg capsule bupropion HCl [Wellbutrin SR] 150 mg tablet sustained-release 12 hr 150 mg PO QAM isosorbide mononitrate 30 mg tablet extended release 24 hr 30 mg PO DAILY diclofenac sodium 3 % gel 1 applic TP TID PRN amlodipine 2.5 mg tablet 2.5 mg PO DAILY Qty: 90 3RF atorvastatin 10 mg tablet 20 mg PO DAILY trazodone 50 mg tablet 50 mg PO HS montelukast 10 mg tablet 10 mg PO DAILY ondansetron 4 mg tablet,disintegrating 4 mg PO TID PRN omeprazole [Prilosec] 40 MG capsule,delayed release(DR/EC) 40 mg PO DAILY multivitamin with minerals 1 EACH tablet 1 ea PO DAILY cholecalciferol (vitamin D3) 1,000 UNIT tablet 1,000 unit PO DAILY ascorbic acid (vitamin C) [Vitamin C] 500 MG tablet 500 mg PO DAILY albuterol sulfate [ProAir HFA] 8.5 GM HFA aerosol inhaler 1 - 2 puff Inhalation Q6H PRN metronidazole 1 % gel 1 applic topical BID acetaminophen 500 mg tablet 500 mg PO Q6H PRN loratadine [Allergy Relief (loratadine)] 10 mg tablet 10 mg PO DAILY albuterol sulfate 2.5 mg /3 mL (0.083 %) solution for nebulization 2.5 mg inhalation QID PRN (Reason: shortness of breath or wheezing) Qty: 180 6RF aspirin [Aspir-81] 81 MG tablet,delayed release (DR/EC) 81 mg PO DAILY nitroglycerin 0.4 mg Tablet, Sublingual 0.4 mg SUBLINGUAL ONCE metoprolol succinate 25 mg tablet extended release 24 hr 25 mg PO HS amoxicillin-pot clavulanate 875-125 mg tablet 1 tab PO BID Patient Comments: TAKE ONE TABLET BY MOUTH TWICE A DAY FOR 7 DAYS azithromycin 250 mg tablet 250 mg PO BID Patient Comments: TAKE ONE TABLET BY MOUTH EVERY DAY FOR 4 DAYS START ON DAY 2 OF THERAPY venlafaxine [Effexor XR] 150 mg Capsule,Extended Release 24hr 150 mg PO DAILY levothyroxine 100 mcg tablet 100 mcg PO DAILY guaifenesin [Mucinex] 600 mg tablet extended release 12hr 600 mg PO BID Qty: 14 0RF Discharge Instructions Instructions: Dyspnea (ED) Additional Instructions: Stop taking your vitamin D supplement, your calcium is high and this will help decrease it Limit your calcium intake for now you will need a repeat calcium test in close outpatient follow-up Take the prednisone as prescribed, it should be at your doctor's office you received a dose in the emergency department today I think you would benefit from oxygen as your oxygen levels do decrease slightly when you are walking, it sounds like this is not new for you and I do recommend following up with pulmonology It sounds like your doctor is going to order some outpatient oxygen keep track of your oxygen levels You have an appointment on Saturday with your doctor, please go to this appointment Call pulmonology as I think the plan was to order a vest to help with secretions and to help you breathe Please be reevaluated immediately should you have any new or worsening complaints Referrals: Arelis Michele MD [Primary Care Provider] - 2 days HPI General Date/Time Provider Initiated Documentation: 01/08/24 09:24 . HPI Narrative: This 73-year-old male presents with report of persistent shortness of breath over the course of the past several months after being diagnosed with pneumonia in August. States that he was hypoxic at his PCPs office which is why he presents. He denies tobacco use but does have a history of a paralyzed right diaphragm. Denies any calf pain or swelling. Denies any fever or chills. States he is chronically short of breath and has been seeing pulmonology in the outpatient setting. He did complete his antibiotic course which was prescribed on December 29 per patient. He states that did not really help with symptoms. Denies history of PE. Related Data Home Medications Medication Instructions Recorded Confirmed Prilosec 40 mg capsule,delayed 40 mg PO DAILY 11/11/12 01/08/24 release (omeprazole) cholecalciferol (vitamin D3) 25 1,000 unit PO DAILY 11/11/12 01/08/24 mcg (1,000 unit) tablet multivitamin with minerals 1 ea PO DAILY 11/11/12 01/08/24 aspirin 81 mg tablet,delayed 81 mg PO DAILY 02/20/14 01/08/24 release (Aspir-) ascorbic acid (vitamin C) 500 mg 500 mg PO DAILY 09/28/15 01/08/24 tablet (Vitamin C) albuterol sulfate 90 mcg/actuation 1 - 2 puff inhalation Q6H PRN 12/22/15 01/08/24 aerosol inhaler (ProAir HFA) nitroglycerin 0.4 mg sublingual 0.4 mg sublingual ONCE 05/28/18 01/08/24 tablet venlafaxine 150 mg 150 mg PO DAILY 07/01/19 01/08/24 capsule,extended release 24 hr (Effexor XR) bupropion HCl 150 mg tablet,12 hr 150 mg PO QAM 12/08/19 01/08/24 sustained-release (Wellbutrin SR) diclofenac sodium 3 % topical gel 1 applic topical TID PRN 12/08/19 01/08/24 isosorbide mononitrate 30 mg 30 mg PO DAILY 12/08/19 01/08/24 tablet,extended release 24 hr venlafaxine 75 mg capsule,extended 75 mg PO DAILY 12/08/19 01/08/24 release 24 hr metoprolol succinate 25 mg 25 mg PO HS 03/07/21 01/08/24 tablet,extended release 24 hr amlodipine 2.5 mg tablet 2.5 mg PO DAILY #90 tabs 03/24/21 01/08/24 atorvastatin 10 mg tablet 20 mg PO DAILY 04/02/22 01/08/24 montelukast 10 mg tablet 10 mg PO DAILY 04/02/22 01/08/24 trazodone 50 mg tablet 50 mg PO HS 04/02/22 01/08/24 metronidazole 1 % topical gel 1 applic topical BID 07/11/22 01/08/24 acetaminophen 500 mg tablet 500 mg PO Q6H PRN 02/20/23 01/08/24 loratadine 10 mg tablet (Allergy 10 mg PO DAILY 02/20/23 01/08/24 Relief (loratadine)) ondansetron 4 mg disintegrating 4 mg PO TID PRN 07/04/23 01/08/24 tablet albuterol sulfate 2.5 mg/3 mL 2.5 mg (3 mL) inhalation QID PRN 07/09/23 01/08/24 (0.083 %) solution for nebulization shortness of breath or wheezing #180 mL vitamins A,C,C-qsum-jbvigq 4,296 1 cap PO DAILY 08/06/23 01/08/24 mcg-226 mg-90 mg capsule (PreserVision AREDS) guaifenesin 600 mg tablet, 600 mg PO BID #14 tabs 11/07/23 01/08/24 extended release 12 hr (Mucinex) levothyroxine 100 mcg tablet 100 mcg PO DAILY 11/07/23 01/08/24 amoxicillin 875 mg-potassium 1 tab PO BID 01/08/24 01/08/24 clavulanate 125 mg tablet azithromycin 250 mg tablet 250 mg PO BID 01/08/24 01/08/24 Previous Rx's Medication Instructions Recorded amlodipine 2.5 mg tablet 2.5 mg PO DAILY #90 tabs 03/24/21 albuterol sulfate 2.5 mg/3 mL 2.5 mg (3 mL) inhalation QID PRN 07/09/23 (0.083 %) solution for nebulization shortness of breath or wheezing #180 mL guaifenesin 600 mg tablet, 600 mg PO BID #14 tabs 11/07/23 extended release 12 hr (Mucinex) Allergies Allergy/AdvReac Type Severity Reaction Status Date / Time abatacept [From Orencia] AdvReac Severe Nausea Verified 01/08/24 09:23 lisinopril AdvReac Mild cough Verified 01/08/24 09:23 calcium AdvReac kidney Verified 01/08/24 09:23 stones General Stated Complaint: RespSymp SHANEKA: 3 Exam Narrative Exam Narrative: 73-year-old male alert and oriented, lungs with rhonchi, no significant respiratory distress, speaking complete sentences, cardiac rate rhythm regular, no abdominal tenderness, no peripheral edema, distal pulses intact, no murmurs or rubs Course Vital Signs Vital signs: Vital Signs Temperature 36.7 C 01/08/24 09:26 Pulse 96 H 01/08/24 09:26 Respiratory Rate 23 01/08/24 09:26 Blood Pressure 176/91 H 01/08/24 09:26 Pulse Oximetry 92 01/08/24 09:26 Temperature 36.7 C 01/08/24 09:26 Temperature Source Temporal Artery Scan 01/08/24 09:26 Pulse 96 H 01/08/24 09:26 Respiratory Rate 23 01/08/24 09:26 Respiratory Effort Normal, Short of Breath 01/08/24 09:32 Blood Pressure 176/91 H 01/08/24 09:26 Blood Pressure Position Sitting 01/08/24 09:26 Pulse Oximetry 92 01/08/24 09:26 Oxygen Delivery Method Room Air 01/08/24 09:26 Oxygen Flow Rate 0 01/08/24 09:26 Pain Level 0 01/08/24 09:26 Lab/Test Results Lab/Test Results: Laboratory Tests Range/Units 01/08/24 10:10 WBC (4.4-10.8) 10^3/uL 9.90 RBC (4.36-5.78) 10^6/uL 5.18 Hgb (13.5-17.5) g/dL 14.9 Hct (40.0-50.0) % 46.3 MCV (80-95) fL 89 MCH (27.0-33.0) pg 28.8 MCHC (32.0-36.0) % 32.2 RDW (11.8-14.1) % 13.9 Plt Count (130-400) 10^3/uL 215 MPV (8.0-11.0) fL 10.0 Immature Gran % % 0.6 Neutrophils % % 60.1 Lymphocytes % % 24.6 Monocytes % % 8.3 Eosinophils % % 5.9 Basophils % % 0.5 Nucleated RBC % (0.0-0.3) % 0.0 Absolute Neutrophils (1.2-6.7) 10^3/uL 5.95 Absolute Lymphocytes (1.2-3.4) 10^3/uL 2.44 Absolute Monocytes (0.1-0.8) 10^3/uL 0.82 H Absolute Eosinophils (0.0-0.7) 10^3/uL 0.58 Absolute Basophils (0.0-0.2) 10^3/uL 0.05 VBG pH (7.31-7.41) 7.42 H VBG pCO2 (41-51) mmHg 54 H VBG pO2 mmHg 23 VBG HCO3 (23-28) mmol/L 35 H VBG Total CO2 (24-29) mmol/L 31 H VBG O2 Saturation % 37 VBG Base Excess (-2-3) mmol/L 10 H Sodium (136-145) mmol/L 142 Potassium (3.5-5.1) mmol/L 3.8 Chloride (98-107) mmol/L 104 Carbon Dioxide (21.0-32.0) mmol/L 34.1 H Anion Gap (3-11) mmol/L 3.9 BUN (7-18) mg/dL 22 H Creatinine (0.70-1.30) mg/dL 1.8 H Est GFR (CKD-EPI 2020) (mL/min/1.73m2) 38.77 Glucose (74-106) mg/dL 99 Calcium (8.5-10.1) mg/dL 13.5 H* NT-Pro-B Natriuret Pep (<300) pg/mL 35 Medical Decision Making 73-year-old male with history of chronic respiratory disease in the presence of neuromuscular disorder and paralyzed right-sided hemidiaphragm presenting with chronic respiratory issues but hypoxia in the clinic today so was sent for assessment. Patient had chest x-ray per radiology interpretation my review which did not show acute abnormality, diagnostic labs were reassuring and patient aside from a does not meet criteria for PE and had a CT of his chest several weeks ago that did not show evidence of pulmonary embolism. Patient has received 1 inpatient admission with antibiotics and recently completed Augmentin and azithromycin without significant improvement in symptoms and he states that this has been ongoing since August when he first acquired pneumonia he does not feel like he is recovered completely. He denies any acute change in his status today and was being evaluated for routine appointment. Patient was observed for approximately 2-1/2 hours and had negative diagnostic labs on assessment. Patient ambulated for approximately 1 minute and did have an episode of hypoxia, 86 to 87% but as soon as he sat down, oxygenation was 94% and patient was able to speak in complete sentences. I suspect the patient would benefit from oxygen at home as needed. He does not feel any differently than he has felt in the past 6 months and he feels stable for discharge home. He states he would not have come to the emergency department for assessment. I did compare his chest x-ray to his prior which is unchanged. I also reviewed his admission from 3 5 and his discharge summary from his visit a week ago. He has prednisone ordered in the outpatient setting, I spent approximately 5 minutes speaking with Brina Alberto, nurse practitioner at [facility] who will order outpatient oxygen for this patient. Patient will be placed in the pulmonology clinic for reassessment and he is already established with them. He will continue on his routine nebs. Patient given low threshold to return should he have new or worsening complaints and is discharged home with an oxygenation status of 95% on room air. He will be given a prednisone taper for home. Quality:SDOH Health Related Social Needs: Health related social needs food insecurity Health related social needs details [facility] unseling referral to [facility] All Active Problems (Updated 01/08/24 @ 12:43 by DONAVAN Steven) Chronic respiratory disease (Acute) Diaphragm paralysis (Acute) Dyspnea on exertion (Acute) Pneumonia (Acute) Discharge planning issues (Acute) Acute hypoxic respiratory failure (Acute) Wheezing on auscultation (Acute) Recurrent infections (Acute) Neuromuscular respiratory weakness (Acute) Diaphragm paralysis (Acute) Macular degeneration (Acute) Sacroiliac joint pain (Acute) Hip pain (Acute) Knee pain (Acute) Prediabetes (Acute) Dental infection (Acute) Skin lesion (Acute) COVID-19 virus infection (Acute) Nasal mucosa dry (Acute) Chronic cough (Acute) Basal cell carcinoma (Acute) Actinic keratosis (Acute) Ureterolithiasis (Acute) Coronary artery disease (Chronic) Chest pain (Acute) Wheezing (Acute) Nocturnal cough (Acute) Cardiomyopathy (Acute) SOB (shortness of breath) (Acute) Melena (Acute) Dysphagia (Acute) Strain of calf muscle (Acute 06/30/19) Leg hematoma (Acute 06/30/19) Tubular adenoma of colon (Chronic) GERD (gastroesophageal reflux disease) (Chronic) Xerostomia (Acute 08/17/13) Winged scapula of left side (Acute 04/09/16) Tendinitis of left rotator cuff (Acute 04/09/16) Rhinitis (Acute 08/31/13) Personal history of antineoplastic chemotherapy (Acute 10/14/17) 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) Epistaxis (Acute 10/14/17) Acute sinusitis (Acute 08/17/13) Medical History Sjogren syndrome, unspecified Actinic keratoses Tubular adenoma Other osteoporosis with current pathological fracture, vertebra(e), subsequent encounter for fracture with routine healing Hypertension Rosacea GERD (gastroesophageal reflux disease) Peripheral neuropathy Sicca syndrome Overweight History of partial colectomy Hypothyroidism Hyperlipidemia Dyspnea Depression Pulmonary hypertension Anxiety Pharyngeal disorder Polyarthralgia Steroid-induced osteoporosis Elevated hemidiaphragm Epistaxis Hx of ventral hernia repair Insomnia Rheumatoid arthritis Complicated grief Surgical History Stented coronary artery (~03/20/19) Hernia Repair, Incisional Colonoscopy - IV Sedation (~11/15/09) 09/30/2019 [facility] sessile repeat 3 yrs per Violeta note Colectomy Social History Smoking/Tobacco Use Status: Never Smoking risk assessment performed?: Yes Alcohol Intake: never Drug use: Never Substance use type: does not use Housing: apartment What type of physical activity do you participate in: none Do you feel safe at home: Yes Do you feel safe in your relationship?: Yes
[2024-01-08] MEDS: Normal Saline 1,000 ML 1000 ML IV (11:13)
[2024-01-08 11:55] LABS: Albumin 2.9 g/dL (3.4-5.0)
[2024-01-08 11:59] LABS: Calcium 13.5 mg/dL (8.5-10.1)
== END 2024-01-08 13:09 | disposition home or self-care (01) ==
PROVIDERS: Emergency Provider Physician Assistant; PCP Family Medicine
DX: R06.09 Other forms of dyspnea (principal); J98.6 Disorders of diaphragm; J98.9 Respiratory disorder, unspecified; I25.10 Atherosclerotic heart disease of native coronary artery without angina pectoris; I10 Essential (primary) hypertension; E78.5 Hyperlipidemia, unspecified; E03.9 Hypothyroidism, unspecified; Z95.5 Presence of coronary angioplasty implant and graft; Z79.82 Long term (current) use of aspirin; Z79.899 Other long term (current) drug therapy
CPT/HCPCS: 36415; 80048; 82805; 93005; 94640; 99284; 71046; 82040; 82310; 83880; 85025; 93010; 99283; J7512; J7614

== ENCOUNTER 2024-01-10 18:02 | Outpatient (REF) | payer OTHER, SELFPAY ==
[2024-01-10 19:05] LABS: Anion Gap 4.9 mmol/L (3-11); BUN 17 mg/dL (7-18); CO2 33.1 mmol/L (21.0-32.0); CREATININE 1.5 mg/dL (0.70-1.30); Chloride 109 mmol/L (98-107); Estimated GFR 48.25 (mL/min/1.73m2); Glucose 129 mg/dL (74-106); Potassium 4.2 mmol/L (3.5-5.1); Sodium 147 mmol/L (136-145)
[2024-01-10 19:17] LABS: Calcium 12.7 mg/dL (8.5-10.1)
== END 2024-01-10 18:03 | disposition home or self-care (01) ==
LOC: NCHCN 18:02
PROVIDERS: PCP Family Medicine; Visit Provider Family Medicine
DX: E83.52 Hypercalcemia (principal)
CPT/HCPCS: 80048

== ENCOUNTER 2024-01-16 10:47 | Outpatient (CLI) | payer OTHER, SELFPAY ==
[2024-01-16 11:26] LABS: Anion Gap 6.9 mmol/L (3-11); BUN 13 mg/dL (7-18); CO2 29.1 mmol/L (21.0-32.0); CREATININE 1.3 mg/dL (0.70-1.30); Chloride 105 mmol/L (98-107); Estimated GFR 57.29 (mL/min/1.73m2); Glucose 178 mg/dL (74-106); Potassium 3.8 mmol/L (3.5-5.1); Sodium 141 mmol/L (136-145)
[2024-01-16 19:50] LABS: Ionized Calcium 1.32 mmol/L (1.14-1.35)
[2024-01-16 21:06] LABS: Parathyroid Hormone,Intact 11 pg/mL (19-88)
== END 2024-01-16 10:48 | disposition home or self-care (01) ==
LOC: LBO 10:47
PROVIDERS: PCP Family Medicine; Visit Provider Family Medicine
DX: E83.52 Hypercalcemia (principal); Z00.00 Encounter for general adult medical examination without abnormal findings
CPT/HCPCS: 36415; 80048; 82330; 83970

== ENCOUNTER → 2024-02-25 08:35 | Outpatient (BNVA) | payer OTHER, SELFPAY | PROVIDERS: PCP Family Medicine; Referring Provider Family Medicine; Visit Provider Physician Assistant Surgical | DX: R05.3 Chronic cough (principal); J98.6 Disorders of diaphragm; M06.9 Rheumatoid arthritis, unspecified; G70.9 Myoneural disorder, unspecified; J99 Respiratory disorders in diseases classified elsewhere; B99.9 Unspecified infectious disease | CPT/HCPCS: 99214 ==

== ENCOUNTER → 2024-04-02 10:34 | Outpatient (BNVA) | payer OTHER, SELFPAY | PROVIDERS: PCP Family Medicine; Referring Provider Family Medicine; Visit Provider Physician Assistant Surgical | DX: G70.9 Myoneural disorder, unspecified (principal); J99 Respiratory disorders in diseases classified elsewhere; J98.6 Disorders of diaphragm; J96.91 Respiratory failure, unspecified with hypoxia; R05.3 Chronic cough; M06.9 Rheumatoid arthritis, unspecified; B99.9 Unspecified infectious disease | CPT/HCPCS: 99214 ==

== ENCOUNTER → 2024-04-06 02:17 | Outpatient (CLI) | payer OTHER, SELFPAY ==
--- OUTSIDE RECORDS SUMMARY | 2024-04-06 02:26 | XMS_ITS | Continuity of Care Document ---
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 Plan of Treatment Reminders Order Date Submit Date Provider Last Modified By Organization Details Last Modified Time Details Appointments Follow Up 30 2023 08:10A M LEE MENESES Not available Not available Not available Lab influenza virus A + B + SARS-CoV- 2 (COVID19) Ag panel, rapid IA, upper respirato ry specimen 2023 024 [facility], [address] [place], [address], 03/27/2024 13:24:19 Referral None recorded. Procedures None recorded. Surgeries None recorded. Imaging None recorded. Medication Orders prednison e 10 mg tablet 2023 024 [id number], [address] [place], [address], 03/26/2024 15:40:11 Patient TargetsNo targets recorded. Patient InstructionsNo instructions recorded. Reason for Referral Strategy Intern Referral for D isorder of skin and/or subcutaneous tissue referral for presumed BCC on nose and rt ant ear, also rosacea Referring Physician: Lee Meneses, Family Medicine, Encounter Date: 02/11/2024 Results Created Date Observation Date Name Description Value Unit Range Abnormal Flag LastModifiedBy Organization Detail LastModifiedTime 03/27/20 24 03/27/2024 influ dominguez virus A + B + SARS- CoV-2 (COVI D19) Ag panel , rapid IA, upper respi rator y speci men Influenza A negati ve Not Available [address], [address], 03/26/2024 14:53:57 03/27/20 24 03/27/2024 influ dominguez virus A + B + SARS- CoV-2 (COVI D19) Ag panel , rapid IA, upper respi rator y speci men Influenza B negati ve Not Available [address], [address], 03/26/2024 14:53:57 03/27/20 24 03/27/2024 influ dominguez virus A + B + SARS- CoV-2 (COVI D19) Ag panel , rapid IA, upper respi rator y speci men SARS-COV-2 negati ve Not Available [address], [address], 03/26/2024 14:53:57 03/27/20 24 03/27/2024 influ dominguez virus A + B + SARS- CoV-2 (COVI D19) Ag panel , rapid IA, upper respi rator y speci men Sample sent for PCR confirmation No Not Available [address], [address], 03/26/2024 14:53:57 Result Notes None recorded. Problems Name Status Onset Date Resolution Date Notes Provider Name and Address Organization Details Recorded Time Major depression, single episode Active 201003/18/2022 - Comments only - Lee Meneses MD - /Anxiety. He is doing well currently, happy to be in his current living situation. Staying connected with family. He continues on Wellbutrin and venlafaxine which he wants to continue with. Problem Code: F32.9; Problem Code Type: ICD-10; Not Available [facility] 3 05:28:17 Essential hypertension Active 201011/07/2020 - Comments only - Lee Meneses MD - per recent reading at [facility] I feel this is remaining under reasonable control. He will continue the metoprolol, terazosin. Also on isosorbide. Problem Code: I10; Problem Code Type: ICD-10; ENRIQUE LIMON MD [address], [place], [address] , [facility] 3 15:45:28 Hyperlipidemi a Active 201005/19/2019 - Comments only - Primitivo Brown - He will continue atorvastatin. Problem Code: E78.5; Problem Code Type: ICD-10; Not Available [facility] 3 05:28:17 Generalized anxiety disorder Active 201208/08/2021 - Comments only - Lee Meneses MD - improved now that he has a warm apartment to be in for the winter. He has his name on a list for a senior apartment complex also. He will remain on the wellbutrin and venlafaxine for now. Problem Code: F41.1; Problem Code Type: ICD-10; Not Available [facility] 3 05:28:17 Postprocedura l state finding Active 2012 Problem Code: Z98.89; Problem Code Type: ICD-10; Not Available [facility] 3 05:28:18 Gastrointesti nal tract excision Active 2012 Problem Code: Z90.49; Problem Code Type: ICD-10; Not Available [facility] 3 05:28:18 History of polyp of colon Active 2018 Problem Code: Z86.010; Problem Code Type: ICD-10; Not Available [facility] 3 05:28:18 Gastroesophag eal reflux disease without esophagitis Active 201011/07/2020 - Comments only - Lee Meneses MD - discussed trying to cut back on prilosec. He will continue the AM dose but d/c the PM. He continues on ranitidine at hs. Problem Code: K21.9; Problem Code Type: ICD-10; MD [address], [place], [address] , [facility] 3 15:45:28 Sj??gren's syndrome Active 201308/11/2022 - Comments only - Lee Meneses MD - , Possible Sjogren's. He does have RA as well. Again he is learned to live with it for the most part. Problem Code: M35.00; Problem Code Type: ICD-10; Not Available [facility] 3 05:28:18 Overweight Active 2010 Problem Code: E66.3; Problem Code Type: ICD-10; Not Available [facility] 3 05:28:18 Insomnia Active 201008/08/2021 - Comments only - Lee Meneses MD - doing better on the trazadone, off the temazepam. Will continue to monitor. Problem Code: G47.00; Problem Code Type: ICD-10; Not Available [facility] 3 05:28:18 Osteoporotic fracture of vertebra Active 2010 Problem Code: M80.88xD; Problem Code Type: ICD-10; Not Available [facility] 3 05:28:19 Rheumatoid arthritis Active 201002/12/2023 - Comments only - Lee Meneses MD - He continues on rituxan, followed by rheumatology Problem Code: M06.9; Problem Code Type: ICD-10; MD [address], [place], [address] , [facility] 3 15:45:28 Rosacea Active 201203/18/2022 - Comments only - Lee Meneses MD - Which seems to have flared up with his accidentally using diclofenac gel instead of metronidazole gel. Explained the difference to him. 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 If he has not had improvement within 3 to 4 weeks to let us know. Problem Code: L71.9; Problem Code Type: ICD-10; MD [address], [place], [address] , [facility] 3 15:45:28 Secondary pulmonary hypertension Active 2014 Problem Code: I27.2; Problem Code Type: ICD-10; Not Available [facility] 3 05:28:19 Dyspnea Active 201407/05/2021 - Comments only - Lee Meneses MD - On exertion. In addition to cardiology he is met with pulmonology and they really have not come up with a good explanation for his symptoms. He is using Symbicort regularly but has not noticed any significant improvement since being on it. He has tried the ProAir prior to exertional activity and that does not seem to help. Problem Code: R06.00; Problem Code Type: ICD-10; Not Available [facility] 3 05:28:19 Congenital anomaly of diaphragm Active 2014 Problem Code: Q79.1; Problem Code Type: ICD-10; MD [address], [place], [address] , [facility] 3 15:45:29 Polyneuropath y Active 2015 Problem Code: G62.9; Problem Code Type: ICD-10; Not Available [facility] 3 05:28:20 Hypothyroidis m Active 201508/11/2022 - Comments only - Lee Meneses MD - On levothyroxine . TSH ordered. Problem Code: E03.9; Problem Code Type: ICD-10; MD [address], [place], [address] , [facility] 3 15:45:28 Joint pain Active 2015 Problem Code: M25.50; Problem Code Type: ICD-10; Not Available [facility] 3 05:28:20 Adjustment disorder Active 2015 Problem Code: F43.29; Problem Code Type: ICD-10; Not Available [facility] 3 05:28:20 Osteoporosis Active 2015 Problem Code: M81.8; Problem Code Type: ICD-10; Not Available [facility] 3 05:28:20 Acute upper respiratory infection Completed 201506/09/2016 Problem Code: J06.9; Problem Code Type: ICD-10; Not Available [facility] 3 05:28:20 Bleeding from nose Active 2017 Problem Code: R04.0; Problem Code Type: ICD-10; Not Available [facility] 3 05:28:21 Disorder of pharynx Active 2017 Problem Code: J39.2; Problem Code Type: ICD-10; Not Available [facility] 3 05:28:21 Pain of left shoulder joint Active 2017 Problem Code: M25.512; Problem Code Type: ICD-10; Not Available [facility] 3 05:28:21 Chest pain Active 2017 Problem Code: R07.9; Problem Code Type: ICD-10; Not Available [facility] 3 05:28:21 Wheezing Active 2017 Problem Code: R06.2; Problem Code Type: ICD-10; Not Available [facility] 3 05:28:21 Cough Active 201707/05/2021 - Comments only - Lee Meneses MD - He has had a tickly cough now for years. Initially we thought it was related to lisinopril which was discontinued but this tickly cough never resolved. We will have him try Tessalon Perles as needed, he has used these historically. Problem Code: R05; Problem Code Type: ICD-10; Not Available [facility] 3 05:28:21 Cardiomyopath y Active 201703/18/2022 - Comments only - Lee Meneses MD - /Pulmonary hypertension. Overall he is remaining stable, continues on medications as listed in prior . . Problem Code: I42.9; Problem Code Type: ICD-10; ENRIQUE LIMON MD [address], [place], [address] , [facility]. 3 15:45:29 Melena Active 2017 Problem Code: K92.1; Problem Code Type: ICD-10; Not Available [facility] 3 05:28:22 Screening for malignant neoplasm of colon Active 201803/10/2019 - Comments only - Lee Meneses MD - colonoscopy 2018 with tubular adenoma with high grade dysplasia - repeat by early 2019 Problem Code: Z12.11; Problem Code Type: ICD-10; Not Available [facility] 3 05:28:22 Itching of skin Active 2018 Problem Code: L29.9; Problem Code Type: ICD-10; Not Available [facility] 3 05:28:23 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 He continues on atorvastatin, metoprolol, isosorbide, ASA. Problem Code: I25.10; Problem Code Type: ICD-10; MD [address], [place], [address] , [facility] 3 15:45:28 Adult health examination Active 201803/06/2021 - Comments only - Lee Meneses MD - He would like to check a PSA with the blood work. Problem Code: Z00.00; Problem Code Type: ICD-10; Not Available [facility] 3 05:28:23 Benign prostatic hyperplasia Active 201805/19/2019 - Comments only - Lee Meneses MD - with persistent nocturia - will have him increase the terazosin to 4mg qhs Problem Code: N40.0; Problem Code Type: ICD-10; MD [address], [place], [address] , [facility] 3 15:45:28 Dysphagia Active 201805/19/2019 - Comments only - Lee Meneses MD - ongoing - this may be related to Sicca syndrome. He had an ENT w/u without dx found, no upper endoscopy or barium swallow studies in our system. I will ask him about these when I call him with bloodwork results. Problem Code: R13.10; Problem Code Type: ICD-10; Not Available [facility] 3 05:28:23 Non-traumatic tendon rupture Active 2018 Problem Code: M66.871; Problem Code Type: ICD-10; Not Available [facility] 3 05:28:24 Mild intermittent asthma Active 201803/18/2022 - Comments only - Lee Meneses MD - With chronic dyspnea on exertion. He continues on Symbicort, Singulair. I did suggest he can use the ProAir prior to exercise and he will try that. Problem Code: J45.20; Problem Code Type: ICD-10; Not Available [facility] 3 05:28:24 Traumatic or non-traumatic injury Active 201903/06/2021 - Comments only - Lee Meneses MD - Right status post injury. Resolving well at this point. Problem Code: T14.8xxA; Problem Code Type: ICD-10; Not Available [facility] 3 05:28:24 Pain of joint of knee Active 2019 Problem Code: M25.569; Problem Code Type: ICD-10; Not Available [facility] 3 05:28:24 Actinic keratosis Active 2019 Problem Code: L57.0; Problem Code Type: ICD-10; Not Available [facility] 3 05:28:25 Pain of right knee joint Active 2019 Problem Code: M25.561; Problem Code Type: ICD-10; Not Available [facility] 3 05:28:25 Prediabetes Active 201908/11/2022 - Comments only - Lee Meneses MD - He will be due for an A1c at the next visit. Problem Code: R73.03; Problem Code Type: ICD-10; ENRIQUE LIMON MD [address], [place], [address] , [facility]. 3 15:45:29 Periapical abscess Active 2019 Problem Code: K04.7; Problem Code Type: ICD-10; Not Available [facility] 3 05:28:26 Disorder of skin and/or subcutaneous tissue Active 202003/18/2022 - Comments only - Lee Meneses MD - Right posterior ear. We will refer Wesly to Dr. Wade for further evaluation/bi opsy. Problem Code: L98.9; Problem Code Type: ICD-10; Not Available [facility] 3 05:28:26 Therapeutic drug monitoring assay Active 2020 Problem Code: Z51.81; Problem Code Type: ICD-10; Not Available [facility] 3 05:28:26 Ureteric stone Active 202007/05/2021 - Comments only - Lee Meneses MD - Currently resolved. Following with urology Problem Code: N20.1; Problem Code Type: ICD-10; Not Available [facility] 3 05:28:26 COVID-19 Active 202111/06/2021 - Comments only - Lee Meneses MD - About 2 months ago. Minimal symptoms, resolved. We did discuss the possibility of the Laura Madrigal I need to find out whether and when he may be a candidate for that given that he has had Covid infection. Problem Code: U07.1; Problem Code Type: ICD-10; Not Available [facility] 3 05:28:26 Disorder of nasal sinus Active 202107/09/2022 - Comments only - Lee Meneses MD - Along with complaint of dry mouth and dry eyes use likely indicating Sjogren's disorder. Will let rheumatology confirm diagnosis. At this point he is using eyedrops already, I suggested some saline nose spray which she will start. I did not start him on any steroid nasal sprays. Not Available [facility] 3 05:28:27 Chronic cough Active 202102/13/2023 - Comments only - Lee Meneses MD - /Dyspnea on exertion. He has undergone cardiopulmona ry exercise stress testing which indicated deconditionin g, has mild global hypokinesis with an EF of 45% on echo, RSVP of 22, did have a stent placed in the LAD in 2018, chest CT in 2019 showed some mild bronchial wall thickening and air trapping, he has previously been on Symbicort, Flovent, Flonase, did not find any of these helpful. He does feel that he has had increased mucus buildup that is darker color than usual use for the last month. He may have developed a chronic bronchitis. I suggested a trial of doxycycline which he is amenable to. We will refer him to pulmonology locally. He states he did meet with pulmonology at [facility] at 1 point but they just told him symptoms were on his head . We will try and obtain that note. Problem Code: R05.3; Problem Code Type: ICD-10; MD [address], [place], [address] , [facility] 15:45:28 Basal cell carcinoma of skin Active 202107/09/2022 - Comments only - Lee Meneses MD - And actinic keratoses. Following with ENT. He has an appointment coming up with them in a few weeks. It sounds like they cannot discuss what to do with what may be some residual basal cell in the area of the right ear. They are using 5-FU cream to treat the actinic keratoses. He uses MetroGel for his rosacea. He has no current skin lesions concerning for an infection. Problem Code: C44.91; Problem Code Type: ICD-10; Not Available [facility] 3 05:28:27 Benign neoplasm of colon Active 202108/11/2022 - Comments only - Lee Meneses MD - , History of. Due for colonoscopy. Problem Code: D12.6; Problem Code Type: ICD-10; MD [address], [place], [address] , [facility] 15:45:29 Degenerative disorder of macula Active 2022 Problem Code: H35.30; Problem Code Type: ICD-10; Not Available [facility] 3 05:28:28 Long-term current use of drug therapy Active 2022 Problem Code: Z79.69; Problem Code Type: ICD-10; Not Available [facility] 3 05:28:28 Disorder of sacrum Active 2022 Not Available [facility] 3 05:28:28 Hip pain Active 2022 Problem Code: M25.559; Problem Code Type: ICD-10; Not Available [facility] 3 05:28:28 Acute upper respiratory infection Completed 201511/21/2017 Problem Code: J06.9; Problem Code Type: ICD-10; Not Available [facility] 3 05:28:30 Blepharitis Completed 201201/28/2018 Problem Code: H01.009; Problem Code Type: ICD-10; Not Available [facility] 3 05:28:31 Cough Completed 201401/28/2018 Problem Code: R05; Problem Code Type: ICD-10; Not Available [facility] 3 05:28:31 Gastroesophag eal reflux disease Completed 201005/29/2023 Not Available [facility] 3 05:28:31 Dizziness and giddiness Completed 201501/28/2018 Problem Code: R42; Problem Code Type: ICD-10; Not Available [facility] 3 05:28:32 Cellulitis Completed 201606/03/2017 Problem Code: L03.119; Problem Code Type: ICD-10; Not Available [facility] 3 05:28:32 Osteopenia Completed 201005/29/2023 Not Available [facility] 3 05:28:32 Effusion of joint Completed 201401/28/2018 Problem Code: M25.40; Problem Code Type: ICD-10; Not Available [facility] 3 05:28:33 Acute bronchitis Completed 201409/25/2016 Problem Code: J20.9; Problem Code Type: ICD-10; Not Available [facility] 3 05:28:33 Hypertensive disorder Completed 201005/29/2023 Not Available [facility] 3 05:28:34 Hernia of anterior abdominal wall Completed 201205/29/2023 Not Available [facility] 3 05:28:35 Bursitis of olecranon of left elbow Completed 201601/28/2018 Problem Code: M70.22; Problem Code Type: ICD-10; Not Available [facility] 3 05:28:36 Pre-surgery evaluation Completed 201606/03/2017 Problem Code: Z01.818; Problem Code Type: ICD-10; Not Available [facility] 3 05:28:36 Acute pharyngitis Completed 201701/28/2018 Problem Code: J02.9; Problem Code Type: ICD-10; Not Available [facility] 3 05:28:37 Colonoscopy Completed 201205/29/2023 Not Available [facility] 3 05:28:38 Specialized medical examination Completed 201205/29/2023 Problem Code: Z01.89; Problem Code Type: ICD-10; Not Available [facility] 3 05:28:39 Chronic maxillary sinusitis Completed 201601/28/2018 Problem Code: J32.0; Problem Code Type: ICD-10; Not Available [facility] 3 05:28:40 Pathological fracture of vertebra Completed 201005/29/2023 Not Available [facility] 3 05:28:40 Hypothyroidis m Completed 201205/29/2023 ENRIQUE LIMON MD [address], [place], [address] , [facility] 3 15:45:28 Adult health examination Completed 201601/28/2018 Problem Code: Z00.00; Problem Code Type: ICD-10; Not Available [facility] 3 05:28:41 Osteoporosis Completed 201005/29/2023 Not Available [facility] 3 05:28:43 Increased frequency of urination Completed 201601/28/2018 Problem Code: R35.0; Problem Code Type: ICD-10; Not Available [facility] 3 05:28:44 Pulmonary hypertension Completed 201405/29/2023 Not Available [facility] 3 05:28:45 Conjunctiviti s Completed 201201/28/2018 Problem Code: H10.89; Problem Code Type: ICD-10; Not Available [facility] 3 05:28:46 Bone density finding Completed 201009/25/2016 Problem Code: M85.80; Problem Code Type: ICD-10; Not Available [facility] 3 05:28:46 Rosacea conjunctiviti s Completed 201205/29/2023 Not Available [facility] 3 05:28:47 Anxiety state Completed 201205/29/2023 Not Available [facility] 3 05:28:48 Obstructed labor due to shoulder dystocia Completed 201501/16/2016 Problem Code: O66.0; Problem Code Type: ICD-10; Not Available [facility] 3 05:28:49 Depressive disorder Completed 201005/29/2023 Not Available [facility] 3 05:28:51 Pneumonia Completed 201701/28/2018 Problem Code: J18.9; Problem Code Type: ICD-10; Not Available [facility] 3 05:28:52 Pain of left shoulder joint Completed 201501/28/2018 Problem Code: M25.512; Problem Code Type: ICD-10; Not Available [facility] 3 05:28:54 History of SARS-CoV-2 Active [address], [place], [address] , [facility]. 4 11:04:33 Benign prostatic hyperplasia with outflow obstruction Active [address], [place], [address] , [facility]. 4 10:07:46 Notes:*Problem Name: Chronic Dyspnea *ICD-10 Codes: *Problem Status: inactive *Comments: *Note Date: 09/10/2014 *Problem Name: Colectomy *ICD-10 Codes: *Problem Status: inactive *Comments: *Note Date: 12/01/2012 *Problem Name: Elevated Rt Hemidiaphragm *ICD-10 Codes: *Problem Status: inactive *Comments: *Note Date: 09/10/2014 Problem Notes None recorded. Medical Equipment None Reported. Allergies Allergen ID Allergen Name Allergen Category Reaction Reaction Severity Criticality Documentation Date Start Date Code Code System Note Provider Name and Address Organization Details Recorded Time 27073 lisinopri l medicatio n cough moderate Not available 07/12/20232011 51496 RxNorm dry cough Aller gyCod e: '3140 76'; Aller gyNam e: 'XIOMY NOPRI L'; Aller gyCon ceptT ype: 'RX Norm' ; Aller gyRea ction : 'dry cough '; Not Available [facility] 3 16:21:49 Medications Name Sig Start Date Stop Date Status Note LastModified by Organization Details LastModified Time Prescript ion - Clarifica tion 03/26 completed Not Available Not Available Not Available losartan 50 mg tablet Take 1 by mouth daily 07/[address] Sommers Cardiolo gy Not Available Not Available Not Available amoxicill in 500 mg capsule Take 1 cap by mouth three times daily 02/11 completed Not Available Not Available Not Available terazosin 5 mg capsule Take 1 capsule by mouth every night 02/10 completed Not Available Not Available Not Available diclofena c 3 % topical gel apply to areas of face bid for actinic keratose s 2019 active Not Available Not Available Not Avai lable Colace 100 mg capsule 1-2 tabs daily 03/27 completed Not Available Not Available Not Available prednison e 10 mg tablet TAKE 3 TABLETS BY MOUTH DAILY FOR 1 WEEK THEN 2 TABLETS DAILY FOR 1 WEEK THEN 1 TABLET DAILY FOR 1 WEEK THEN 1/2 TABLET DAILY FOR 1 WEEK active Not Available Not Available No t Available venlafaxi ne ER 75 mg capsule,e xtended release 24 hr TAKE ONE CAPSULE BY MOUTH EVERY DAY WITH 150MG CAPSULE active Not Available Not Available No t Available doxycycli ne hyclate 100 mg capsule TAKE ONE CAPSULE BY MOUTH TWICE A DAY 12/04 completed Not Available Not Available Not Available atorvasta tin 20 mg tablet Take 1 tablet by mouth every night 2020 active Not Available Not Available Not Avai lable carvedilo l 12.5 mg tablet 2 tabs twice daily 08/02 completed Not Available Not Available Not Available ipratropi um 0.5 mg-albute rol 3 mg (2.5 mg base)/3 mL nebulizat ion soln One unit via nebulize r four times a day as needed 07/26 completed Not Available Not Available Not Available sulfasala zine 500 mg tablet rx by rheum 2020 active Not Available Not Available Not Avai lable albuterol sulfate 2.5 mg/3 mL (0.083 %) solution for nebulizat ion inhale by nebulize r every 6 hours as needed for dyspnea 2023 active Not Available Not Available Not Avai lable Vitamin C 500 mg tablet daily 2014 active med REC Not Available Not Available Not Avai lable trazodone 50 mg tablet TAKE TWO TABLETS BY MOUTH EVERY EVENING AT BEDTIME, CAN INCREASE TO 3 TABLETS IF NEEDED active Not Available Not Available No t Available triamcino lone acetonide 0.5 % topical cream CREAM EVERY SIX TO 12 HOURS 01/15 completed Not Available Not Available Not Available atorvasta tin 10 mg tablet Take 1 tablet by mouth every night 06/30 completed Not Available Not Available Not Available doxazosin 1 mg tablet 1 TAB at bedtime 09/25 completed Not Available Not Available Not Available azithromy fran 250 mg tablet TAKE ONE TABLET BY MOUTH EVERY DAY FOR 4 DAYS START ON DAY 2 OF THERAPY 01/07 completed Not Available Not Available Not Available ibuprofen 800 mg tablet 1 q 8 hours 12/31 completed Not Available Not Available Not Available hydrocodo ne 5 mg-acetam inophen 325 mg tablet Take 1 tab qhs prn 06/23 completed Not Available Not Available Not Available Fosamax 35 mg tablet 1 q week 09/25 completed Not Available Not Available Not Available Levaquin 750 mg tablet 1 TAB daily 08/24 completed Not Available Not Available Not Available Effexor XR 37.5 mg capsule,e xtended release 1 qd 08/02 completed Not Available Not Available Not Available prednison e 20 mg tablet TAKE TWO TABLETS BY MOUTH EVERY MORNING FOR 4 DAYS 02/10 completed Not Available Not Available Not Available isosorbid e mononitra te ER 30 mg tablet,ex tended release 24 hr TAKE ONE TABLET BY MOUTH EVERY DAY active Not Available Not Available No t Available fluoroura cil 5 % topical cream APPLY TOPICALL Y TWICE A DAY FOR 21 DAYS 01/07 completed Not Available Not Available Not Available Metrogel 0.75 % topical gel twice daily 01/13 completed Not Available Not Available Not Available Diflucan 150 mg tablet 1TAB daily 03/26 completed Not Available Not Available Not Available venlafaxi ne ER 150 mg capsule,e xtended release 24 hr TAKE ONE CAPSULE BY MOUTH EVERY DAY WITH 75MG CAPSULE = TOTAL DOSE 225MG active Not Available Not Available No t Available Wellbutri n SR 150 mg tablet, 12 hr sustained -release Take 1 by mouth twice a day 2019 active Not Available Not Available Not Avai lable penicilli n V potassium 500 mg tablet 1 tab twice daily 09/10 completed Not Available Not Available Not Available leflunomi de 10 mg tablet rx by rheumato logy 11/03 completed Not Available Not Available Not Available amlodipin e 2.5 mg tablet Take 1 tablet by mouth once a day active Not Available Not Available No t Available melatonin 3 mg tablet 1 at 10 PM, in 1-2 weeks can increase to 2 at 10PM 03/09 completed Not Available Not Available Not Available multivita min with minerals oral once a day 2009 active Not Available Not Available Not Avai lable terazosin 1 mg capsule Take 3 by mouth at bedtime 07/06 completed Not Available Not Available Not Available Plavix 75 mg tablet 1 TAB daily 03/25 completed Not Available Not Available Not Available ciproflox acin 500 mg tablet Take 1 tab by mouth twice daily 02/04 completed Not Available Not Available Not Available omeprazol e 40 mg capsule,d elayed release TAKE ONE CAPSULE BY MOUTH EVERY DAY active Not Available Not Available No t Available lovastati n 10 mg tablet Take 1 by mouth daily 06/23 completed Not Available Not Available Not Available doxycycli ne monohydra te 100 mg tablet Take 1 tablet twice a day by oral route, for increasi ng cough in needed. active Not Available Not Available No t Available acetamino phen 500 mg tablet Take 1 tab by mouth every 6 hours as needed 2019 active Not Available Not Available Not Avai lable amoxicill in 500 mg tablet 1 CAP TID 10/28 completed Not Available Not Available Not Available Medrol 4 mg tablet 0.5 tab QD 03/01 completed Not Available Not Available Not Available Bactroban 2 % topical cream ointment three times daily 04/20 completed Not Available Not Available Not Available levothyro xine 100 mcg tablet TAKE ONE TABLET BY MOUTH EVERY DAY active Not Available Not Available No t Available Guaiatuss in AC 10 mg-100 mg/5 mL oral liquid Take 1-2 tsp by mouth at HS as needed for cough, repeat once in the night prn 03/09 completed Not Available Not Available Not Available temazepam 15 mg capsule Take 1 capsule by mouth every night as directed 08/04 completed Not Available Not Available Not Available Nitrostat 0.4 mg sublingua l tablet Place 1 tablet under tongue as directed as needed for chest pain. Call 911 after first dose. 1 tablet every 5 minutes, max 3 doses. 2021 active Not Available Not Available Not Avai lable methotrex ate sodium 2.5 mg tablet as per rheumato logy directio ns 10/21 completed Not Available Not Available Not Available terazosin 2 mg capsule Take 1 capsule by mouth every night 2019 active Not Available Not Available Not Avai lable tamsulosi n 0.4 mg capsule TAKE ONE CAPSULE BY MOUTH AT BEDTIME active Not Available Not Available No t Available temazepam 30 mg capsule Take 1 tablet by mouth every night 06/30 completed Not Available Not Available Not Available Synthroid 25 mcg tablet Take 1 tab by mouth daily 01/03 completed Not Available Not Available Not Available meclizine 25 mg tablet 1 tab TID, prn dizzy spells 03/28 completed Not Available Not Available Not Available benzonata te 100 mg capsule TAKE 1-2 CAPSULES BY MOUTH THREE TIMES DAILY NEEDED FOR COUGH 01/07 completed Not Available Not Available Not Available cephalexi n 500 mg capsule Take 1 capsule by mouth three times a day start if needed for skin infectio n 01/07 completed Not Available Not Available Not Available erythromy fran 5 mg/gram (0.5 %) eye ointment ointment EVERY 4 HOURS 11/12 completed Not Available Not Available Not Available neomycin- polymyxin -dexameth 3.5 mg/mL-10, 000 unit/mL-0 .1% eye drops 08/29 completed Not Available Not Available Not Available Rituxan 10 mg/mL concentra te,intrav enous every 4 months per rheumato logy 09/26 completed Not Available Not Available Not Available ranitidin e 150 mg tablet 1 every night 2019 active Not Available Not Available Not Avai lable cevimelin e 30 mg capsule daily 07/26 completed Not Available Not Available Not Available dexametha sone 4 mg tablet TAKE ONE TABLET BY MOUTH FOR TWO DAYS STARTING 11/08/23, THEN 2 MG BY MOUTH FOR TWO DAYS THEN STOP 12/04 completed Not Available Not Available Not Available lisinopri l 10 mg tablet 1 QD 09/05 completed Not Available Not Available Not Available Synthroid 88 mcg tablet Take 1 tablet by mouth once a day 09/27 completed Not Available Not Available Not Available metronida zole 0.75 % topical cream apply BID 03/09 completed Not Available Not Available Not Available losartan 25 mg tablet Take 1 tab by mouth daily 02/11 completed Not Available Not Available Not Available metoprolo l tartrate 50 mg tablet 1 TAB twice daily 08/03 completed Not Available Not Available Not Available Synthroid 75 mcg tablet Take 1 tab by mouth daily 07/25 completed Not Available Not Available Not Available terazosin 1 mg tablet 1 TAB at bedtime 09/10 completed Not Available Not Available Not Available Synthroid 50 mcg tablet Take 1 tab by mouth daily 03/08 completed Not Available Not Available Not Available cephalexi n 500 mg tablet Take 1 tab by mouth two times daily 05/10 completed /[address] [place] [facility] Not Available Not Available Not Available folic acid 1 mg tablet Take 1 tablet by mouth once a day except on the day you take methotre xate 11/25 completed Not Available Not Available Not Available monteluka st 10 mg tablet TAKE ONE TABLET BY MOUTH EVERY DAY active Not Available Not Available No t Available aspirin 81 mg tablet 1CAP daily 2013 active Not Available Not Available Not Avai lable hydrochlo rothiazid e 25 mg tablet 1 tab daily 07/26 completed Not Available Not Available Not Available Levaquin 500 mg tablet Take 1 tab by mouth daily 06/21 completed Not Available Not Available Not Available metoprolo l succinate ER 25 mg tablet,ex tended release 24 hr TAKE ONE TABLET BY MOUTH EVERY DAY active Not Available Not Available No t Available albuterol 90 mcg/actua tion aerosol inhaler 2 PUFFS Q 4-6 hours 2012 active Not Available Not Available Not Avai lable Aspir-81 mg tablet,de layed release take one tab by mouth daily 2013 active Not Available Not Available Not Avai lable Ativan 0.5 mg tablet one tid PRN 07/26 completed Not Available Not Available Not Available albuterol sulfate HFA 90 mcg/actua tion aerosol inhaler 2 puffs every 4-6 hours active Not Available Not Available No t Available losartan 100 mg tablet 1 TAB twice daily 2014 active Not Available Not Available Not Avai lable Erythromy fran (Ophth) 5 mg/g eye ointment APPLY Q4H 02/20/ 2012 02/27 /2012 completed Not Available Not Available Not Available metronida zole 1 % topical cream APPLY A THIN LAYER TO THE AFFECTED AREA(S) BY TOPICAL ROUTE ONCE DAILY 03/26 completed Not Available Not Available Not Available doxycycli ne hyclate 100 mg tablet 1 tablet by mouth twice a day 02/22 completed Not Available Not Available Not Available loratadin e 10 mg tablet TAKE ONE TABLET BY MOUTH EVERY DAY FOR ALLERGIE S active Not Available Not Available No t Available amoxicill in 875 mg-potass ium clavulana te 125 mg tablet TAKE ONE TABLET BY MOUTH TWICE A DAY FOR 7 DAYS 01/07 completed Not Available Not Available Not Available tobramyci n 0.3 %-dexamet hasone 0.1 % eye drops,gabby pension INSTILL 1 DROP INTO BOTH EYES THREE TIMES A DAY FOR 5-7 DAYS 08/29 completed Not Available Not Available Not Available oxycodone 5 mg tablet Take 1 tab by mouth two times daily as needed for pain 03/27 completed Not Available Not Available Not Available Bactrim DS 800 mg-160 mg tablet Take 1 tab by mouth twice daily for a week 11/03 completed Not Available Not Available Not Available Mucinex 600 mg tablet, extended release Take 1 tablet twice a day by oral route as needed. active RX by [facility] pulmonol ogy Not Available Not Available Not Available Zithromax 500 mg tablet 1 TAB DAILY 09/17 completed Not Available Not Available Not Available Saline Nasal 0.65 % spray aerosol Use every 3 hours as needed 2021 active Not Available Not Available Not Avai lable metoprolo l tartrate 25 mg tablet Take 1 tab daily 2017 active Not Available Not Available Not Avai lable Albuterol Sulfate HFA 90 mcg/Actua tion aerosol inhaler 2 PUFFS QID PRN WHEEZING 12/01 completed Not Available Not Available Not Available Flovent HFA 110 mcg/actua tion aerosol inhaler Inhale 2 puffs by mouth twice daily 07/20 completed Not Available Not Available Not Available PreserVis ion AREDS 4,296 mcg-226 mg-90 mg capsule OTC 2022 active Not Available Not Available Not Avai lable metronida zole 1 % topical gel APPLY TWO TIMES A DAY TOPICALL Y 03/26 completed Not Available Not Available Not Available Rituxan every 16 weeks at [facility] [place]. Labs 1-2 weeks prior to infusion active rheumato logy - on hold for 2023 thus far due to infectio ns-still on hold Not Available Not Available Not Available Bactrim 09/05 completed Not Available Not Available Not Available prednison e tab taper 2023 active Not Available Not Available Not Avai lable Dilaudid q3h 12/01 completed Not Available Not Available Not Available cholecalc iferol (vitamin D3) 25 mcg (1,000 unit) tablet Take 1 by mouth once a day 01/08 completed stopped by [facility] - elevated calcium level Not Available Not Available Not Available Symbicort 160 mcg-4.5 mcg/actua tion HFA aerosol inhaler 2 puff twice a day 07/[address] Crystal zavala Not Available Not Available Not Available diclofena c 1 % topical gel APPLY 2 GRAMS TO THE AFFECTED AREA(S) BY TOPICAL ROUTE 4 TIMES PER DAY active Not Available Not Available No t Available Guaifenes in AC 10 mg-100 mg/5 mL oral syrup 5ML every six hours 02/28 completed Not Available Not Available Not Available Orencia 125 mg/mL subcutane ous syringe rx by rheumato logy - unsure what dose 12/20 completed Not Available Not Available Not Available Flonase Allergy Relief 50 mcg/actua tion nasal spray,gabby pension 1 spray each side 2 times a day 11/25 completed Not Available Not Available Not Available doxycycli ne hyclate 50 mg tablet 1 tab daily 09/25 completed Not Available Not Available Not Available albuterol 90 mcg-budes onide 80 mcg/actua tion HFA aerosol inhaler Inhale 2 inhalati ons 4 times a day by inhalati on route as needed. active Rx by [facility] pulmonol ogy Not Available Not Available Not Available Vitals Date Recorded Body height Oxygen saturation Oxygen saturation in Arterial blood by Pulse oximetry Heart rate Body temperature Respiratory rate Systolic blood pressure Diastolic blood pressure Provider Name and Address Organization Details Last Updated DateTime 4 180.34 cm 92 % 92 % 88 /min 98.1 [degF] 18 /min 118 mm[Hg] 68 mm[Hg] Siobhan amin LPN [facility] 4 14:43:37 Social History Question Answer Notes LastModified by Organizat ion Details LastModified Time Tobacco Smoking Status Never Smoker YAZAN Beaulieu, [facility] 11/19/2023 11:03:00 What Was The Date Of Your Most Recent Tobacco Screening? 11/19/2023 [email or web address] Information not available 11/19/2023 Has Tobacco Cessation Counseling Been Provided? No [email or web address] Information not available 11/19/2023 Do You Or Have You Ever Used Any Other Forms Of Tobacco Or Nicotine? No Information not available 11/19/2023 Sex: Male Functional Status None recorded. Mental Status None recorded. Family History Relationship Description Onset Age of this Age Resolved Age Notes Notes:*Problem: updated : Dad age 67 of liver cancer, not alcoholic, no other health problems Mother: at 96 with advanced dementia , DVT One brother, Syed, age 69, health [place], a lot of work-related problems, OA, a-fib 3 sisters, Chaparrita, Adelia and Marilu. Adelia age 73 with early onset dementia(in her 60's); previously with diabetes but went away with weight loss. Chaparrita will be 75 - still working. Marilu age 56 with obesity. No kids . Doesn't know much about rest of family HH father had mild heart attack prior to his . Medical History No medical history recorded. Immunizations Vaccine Type Date Status Provider Name and Address Organization Details Recorded Time Td (adult), 2 Lf tetanus toxoid, preservative free, adsorbed 06/14/2020 completed Not Available [facility] 07/12/2023 04:58:16 Tdap 05/08/2012 completed Not Available [facility] 04:58:16 Pneumococcal conjugate PCV 13 06/26/2016 completed Not Available [facility] 07/12/2023 04:58:17 Influenza, high-dose, trivalent, PF 06/04/2018 completed Not Available [facility] 07/12/2023 04:58:18 Influenza, split virus, trivalent, preservative 05/23/2016 completed Not Available [facility] 07/12/2023 04:58:18 Influenza, split virus, trivalent, preservative 05/26/2015 completed Not Available [facility] 07/12/2023 04:58:19 Influenza, high-dose, quadrivalent, PF 06/30/2020 completed Not Available [facility] 07/12/2023 04:58:20 Influenza, high-dose, quadrivalent, PF 06/30/2021 completed Not Available [facility] 07/12/2023 04:58:21 Influenza, high-dose, quadrivalent, PF 07/06/2022 completed Not Available [facility] 07/12/2023 04:58:21 COVID-19, mRNA, LNP-S, PF, 100 mcg/0.5mL dose or 50 mcg/0.25mL dose 11/07/2020 completed Not Available [facility] 07/12/2023 04:58:21 COVID-19, mRNA, LNP-S, PF, 100 mcg/0.5mL dose or 50 mcg/0.25mL dose 12/05/2020 completed Not Available [facility] 07/12/2023 04:58:22 COVID-19, mRNA, LNP-S, PF, 100 mcg/0.5mL dose or 50 mcg/0.25mL dose 12/26/2021 completed Not Available [facility] 07/12/2023 04:58:22 COVID-19, mRNA, LNP-S, PF, 100 mcg/0.5mL dose or 50 mcg/0.25mL dose 06/30/2021 completed Not Available [facility] 07/12/2023 04:58:22 COVID-19, mRNA, LNP-S, bivalent, PF, 30 mcg/0.3 mL dose 07/06/2022 completed Not Available [facility] 07/12/20 04:58:23 pneumococcal polysaccharide PPV23 09/07/2014 completed Not Available [facility] 2022 04:58:23 influenza, unspecified formulation 05/20/2014 completed Not Available [facility] 07/12/2023 04:58:24 influenza, unspecified formulation 06/05/2017 completed Not Available [facility] 07/12/2023 04:58:24 influenza, unspecified formulation 07/02/2019 completed Not Available [facility] 07/12/2023 04:58:26 Influenza, high-dose, quadrivalent, PF 05/14/2023 completed Not Available [facility] 09/13/2023 05:31:41 COVID-19, mRNA, LNP-S, PF, jonathan-sucrose, 30 mcg/0.3 mL 08/21/2023 completed Perico Quiroz MA [facility] [place] - [facility]. 08/21/2023 10:07:33 Past Encounters Encounter ID Performer Location Encounter Start Date Encounter Closed Date Diagnosis/Indication Diagnosis SNOMED-CT Code [id number] HUANG VARGAS, [facility]-[address] [id number] 03/26/2024 14:15:57 03/26/2024 15:32:32 Cough [id number] Health Concerns Section Related Observation LastModified by Organization Detai ls LastModified Time None Recorded Concern Status LastModified by Organization Details LastModified Time None Recorded Payers Encounter Date Sequence Insurance Name Policy Number Policy Cervantes Covered Member ID Cervantes Member ID Guarantor Name 03/26/2024 1 [employer] (MEDICARE REPLACEMENT/ ADVANTAGE - PPO) Wesly Ybarra [id number] Wesly Ybarra Notes Date Note Type Note Provider Name and Address Organization Details Recorded Time 03/26/2024 text/html HPI Notes: Increase in cough approx 8d ago on Sat03/18/24. Has been using his nebulizer bid, nocturnal O2, O2 sat during the day staying in the 92-94% range. He took 3 doses of his doxycycline Rx from Dr Meneses late last week, then stopped. He responded well to long prednisone taper last time he had pneumonia. He has CXR scheduled 03/31 for pulmonology, received scheduling call for PFT, also for pulmonology, but has not scheduled yet. Sees Pulmonology 05/27/24. 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 HUANG ARCOS-KRISTI, [employer]- [address], [place], [address], [facility]. 03/26/2024 15:40:53
--- OUTSIDE RECORDS SUMMARY | 2024-04-06 02:26 | XMS_ITS | Continuity of Care Document ---
Author Organization [facility] Address [address] [place] [address] Care Team Providers Care Power Shovel Operator Name Role Phone DELPHINE ZARCO Adobe Block Maker DIONE PATEL Field Reimbursement Manager Assessment No assessment recorded. Plan of Treatment Reminders Order Date Submit Date Provider Last Modified By Organization Details Last Modified Time Details Appointments Follow Up 30 2023 08:10A M LEE MENESES Not available Not available Not available Lab BMP, serum or plasma 2023 024 [facility] [address] [place] [address] [place], [address], 03/19/2024 04:22:09 PTH (parathyr oid hormone), intact, serum or plasma 2023 024 [facility] ([facility] [address] [place] [address] [place], [address], 03/19/2024 04:22:09 TSH, serum, reflex free T4 2023 024 [facility] ([facility]), [address] [place] [address] [place], [address], 03/19/2024 04:22:09 Referral dermatolo gist referral 2023 024 NATALI Sullivan MD, [address] [place] [address] [address], [place], [address], 02/12/2024 07:45:23 Procedures None recorded. Surgeries None recorded. Imaging None recorded. Medication Orders metronida zole 1 % topical cream 2023 [facility], [address] [place], [address], 03/26/2024 14:45:44 doxycycli ne monohydra te 100 mg tablet 2023 [facility], [address] [place], [address], 02/11/2024 17:13:04 prednison e 10 mg tablet 2023 [facility], [address] [place], [address], 03/26/2024 14:46:05 tamsulosi n 0.4 mg capsule 2023 024 [facility], [address] [place] [address], [address], 02/11/2024 17:13:23 Patient TargetsNo targets recorded. Patient InstructionsNo instructions recorded. 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 He will continue the metoprolol, terazosin. Also on isosorbide. Problem Code: I10; Problem Code Type: ICD-10; MD Dequan [address], [place], [address] , [facility] 3 15:45:28 Hyperlipidemi a Active 201005/19/2019 - Comments only - Primitivo Brown - He will continue atorvastatin. Problem Code: E78.5; Problem Code Type: ICD-10; Not Available [facility] 3 05:28:17 Generalized anxiety disorder Active 201208/08/2021 - Comments only - Lee Meneses MD - improved now that he has a warm apartment to be in for the winter. He has his name on a list for a senior apartment complex also. He will remain on the wellbutrin and venlafaxine for now. Problem Code: F41.1; Problem Code Type: ICD-10; Not Available [facility] 3 05:28:17 Postprocedura l state finding Active 2012 Problem Code: Z98.89; Problem Code Type: ICD-10; Not Available [facility] 3 05:28:18 Gastrointesti nal tract excision Active 2012 Problem Code: Z90.49; Problem Code Type: ICD-10; Not Available [facility] 3 05:28:18 History of polyp of colon Active 2018 Problem Code: Z86.010; Problem Code Type: ICD-10; Not Available [facility] 3 05:28:18 Gastroesophag eal reflux disease without esophagitis Active 201011/07/2020 - Comments only - Lee Meneses MD - discussed trying to cut back on prilosec. He will continue the AM dose but d/c the PM. He continues on ranitidine at . Problem Code: K21.9; Problem Code Type: ICD-10; MD Dequan [address], [place], [address] , [facility] 3 15:45:28 Sj??gren's syndrome Active 201308/11/2022 - Comments only - Lee Meneses MD - , Possible Sjogren's. He does have RA as well. Again he is learned to live with it for the most part. Problem Code: M35.00; Problem Code Type: ICD-10; Not Available [facility] 3 05:28:18 Overweight Active 2010 Problem Code: E66.3; Problem Code Type: ICD-10; Not Available [facility] 3 05:28:18 Insomnia Active 201008/08/2021 - Comments only - Lee Meneses MD - doing better on the trazadone, off the temazepam. Will continue to monitor. Problem Code: G47.00; Problem Code Type: ICD-10; Not Available [facility] 3 05:28:18 Osteoporotic fracture of vertebra Active 2010 Problem Code: M80.88xD; Problem Code Type: ICD-10; Not Available [facility] 3 05:28:19 Rheumatoid arthritis Active 201002/12/2023 - Comments only - Lee Meneses MD - He continues on rituxan, followed by rheumatology Problem Code: M06.9; Problem Code Type: ICD-10; ENRIQUE LIMON MD [address], [place], [address] , [facility] 3 15:45:28 Rosacea Active 201203/18/2022 - Comments only - Lee Meneses MD - Which seems to have flared up with his accidentally using diclofenac gel instead of metronidazole gel. Explained the difference to him. He will meat pickler the MetroGel and start using that. If he has not had improvement within 3 to 4 weeks to let us know. Problem Code: L71.9; Problem Code Type: ICD-10; MD Dequan [address], [place], [address] , [facility] 3 15:45:28 Secondary pulmonary hypertension Active 2014 Problem Code: I27.2; Problem Code Type: ICD-10; Not Available [facility] 3 05:28:19 Dyspnea Active 201407/05/2021 - Comments [...] R06.00; Problem Code Type: ICD-10; Not Available [facility] 3 05:28:19 Congenital anomaly of diaphragm Active 2014 Problem Code: Q79.1; Problem Code Type: ICD-10; MD Dequan [address], [place], [address] , [facility] 3 15:45:29 Polyneuropath y Active 2015 Problem Code: G62.9; Problem Code Type: ICD-10; Not Available [facility] 3 05:28:20 Hypothyroidis m Active 201508/11/2022 - Comments only - Lee Meneses MD - On levothyroxine . TSH ordered. Problem Code: E03.9; Problem Code Type: ICD-10; MD Dequan [address], [place], [address] , [facility] 3 15:45:28 Joint pain Active 2015 Problem Code: M25.50; Problem Code Type: ICD-10; Not Available [facility] 3 05:28:20 Adjustment disorder Active 2015 Problem Code: F43.29; Problem Code Type: ICD-10; Not Available [facility] 3 05:28:20 Osteoporosis Active 2015 Problem Code: M81.8; Problem Code Type: ICD-10; Not Available [facility] 3 05:28:20 Acute upper respiratory infection Completed 201506/09/2016 Problem Code: J06.9; Problem Code Type: ICD-10; Not Available [facility] 3 05:28:20 Bleeding from nose Active 2017 Problem Code: R04.0; Problem Code Type: ICD-10; Not Available [facility] 3 05:28:21 Disorder of pharynx Active 2017 Problem Code: J39.2; Problem Code Type: ICD-10; Not Available [facility] 3 05:28:21 Pain of left shoulder joint Active 2017 Problem Code: M25.512; Problem Code Type: ICD-10; Not Available [facility] 3 05:28:21 Chest pain Active 2017 Problem Code: R07.9; Problem Code Type: ICD-10; Not Available [facility] 3 05:28:21 Wheezing Active 2017 Problem Code: R06.2; Problem Code Type: ICD-10; Not Available [facility] 3 05:28:21 Cough Active 201707/05/2021 - Comments only - Lee Meneses MD - He has had a tickly cough now for years. Initially we thought it was related to lisinopril which was discontinued but this tickly cough never resolved. We will have him try Tessalon Perles as needed, he has used these historically. Problem Code: R05; Problem Code Type: ICD-10; Not Available [facility] 3 05:28:21 Cardiomyopath y Active 201703/18/2022 - Comments only - Lee Meneses MD - /Pulmonary hypertension. Overall he is remaining stable, continues on medications as listed in prior . . Problem Code: I42.9; Problem Code Type: ICD-10; ENRIQUE LIMON MD [address], [place], [address] , [facility] 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 He continues on atorvastatin, metoprolol, isosorbide, ASA. Problem Code: I25.10; Problem Code Type: ICD-10; MD Dequan [address], [place], [address] , [facility] 3 15:45:28 Adult health examination Active 201803/06/2021 - Comments only - Lee Meneses MD - He would like to check a PSA with the blood work. Problem Code: Z00.00; Problem Code Type: ICD-10; Not Available [facility] 3 05:28:23 Benign prostatic hyperplasia Active 201805/19/2019 - Comments only - Lee Meneses MD - with persistent nocturia - will have him increase the terazosin to 4mg qhs Problem Code: N40.0; Problem Code Type: ICD-10; MD Dequan [address], [place], [address] , [facility] 3 15:45:28 Dysphagia Active 201805/19/2019 - Comments only - Lee Meneses MD - ongoing - this may be related to Sicca syndrome. He had an ENT w/u without dx found, no upper endoscopy or barium swallow studies in our system. I will ask him about these when I call him with bloodwork results. Problem Code: R13.10; Problem Code Type: ICD-10; Not Available [facility] 3 05:28:23 Non-traumatic tendon rupture Active 2018 Problem Code: M66.871; Problem Code Type: ICD-10; Not Available [facility] 3 05:28:24 Mild intermittent asthma Active 201803/18/2022 - Comments only - Lee Meneses MD - With chronic dyspnea on exertion. He continues on Symbicort, Singulair. I did suggest he can use the ProAir prior to exercise and he will try that. Problem Code: J45.20; Problem Code Type: ICD-10; Not Available [facility] 3 05:28:24 Traumatic or non-traumatic injury Active 201903/06/2021 - Comments only - Lee Meneses MD - Right status post injury. Resolving well at this point. Problem Code: T14.8xxA; Problem Code Type: ICD-10; Not Available [facility] 3 05:28:24 Pain of joint of knee Active 2019 Problem Code: M25.569; Problem Code Type: ICD-10; Not Available [facility] 3 05:28:24 Actinic keratosis Active 2019 Problem Code: L57.0; Problem Code Type: ICD-10; Not Available [facility] 3 05:28:25 Pain of right knee joint Active 2019 Problem Code: M25.561; Problem Code Type: ICD-10; Not Available [facility] 3 05:28:25 Prediabetes Active 201908/11/2022 - Comments only - Lee Meneses MD - He will be due for an A1c at the next visit. Problem Code: R73.03; Problem Code Type: ICD-10; ENRIQUE LIMON MD [address], [place], [address] , [facility] 3 15:45:29 Periapical abscess Active 2019 Problem Code: K04.7; Problem Code Type: ICD-10; Not Available [facility] 3 05:28:26 Disorder of skin and/or subcutaneous tissue Active 202003/18/2022 - Comments only - Lee Meneses MD - Right posterior ear. We will refer Wesly to Dr. Wade for further evaluation/bi opsy. Problem Code: L98.9; Problem Code Type: ICD-10; Not Available [facility] 3 05:28:26 Therapeutic drug monitoring assay Active 2020 Problem Code: Z51.81; Problem Code Type: ICD-10; Not Available [facility] 3 05:28:26 Ureteric stone Active 202007/05/2021 - Comments only - Lee Meneses MD - Currently resolved. Following with urology Problem Code: N20.1; Problem Code Type: ICD-10; Not Available [facility] 3 05:28:26 COVID-19 Active 202111/06/2021 - Comments only - Lee Meneses MD - About 2 months ago. Minimal symptoms, resolved. We did discuss the possibility of the Laura Madrigal I need to find out whether and when he may be a candidate for that given that he has had Covid infection. Problem Code: U07.1; Problem Code Type: ICD-10; Not Available [facility] 3 05:28:26 Disorder of nasal sinus Active [...] on any steroid nasal sprays. Not Available [facility] 3 05:28:27 Chronic cough Active 202102/13/2023 - Comments only - Lee Meneses MD - /Dyspnea on exertion. He has undergone cardiopulmona ry exercise stress testing which indicated deconditionin g, has mild global hypokinesis with an EF of 45% on echo, RSVP of 22, did have a stent placed in the LAD in 2019, chest CT in 2019 showed some mild [...] states he did meet with pulmonology at [facility] at 1 point but they just told him symptoms were on his head . We will try and obtain that note. Problem Code: R05.3; Problem Code Type: ICD-10; ENRIQUE LIMON MD [address], [place], [address] , [facility] 3 15:45:28 Basal cell carcinoma of skin Active [...] C44.91; Problem Code Type: ICD-10; Not Available [facility] 3 05:28:27 Benign neoplasm of colon Active 202108/11/2022 - Comments only - Lee Meneses MD - , History of. Due for colonoscopy. Problem Code: D12.6; Problem Code Type: ICD-10; MD Dequan [address], [place], [address] , [facility] 15:45:29 Degenerative disorder of macula Active 2022 Problem Code: H35.30; Problem Code Type: ICD-10; Not Available [facility] 3 05:28:28 Long-term current use of drug therapy Active 2022 Problem Code: Z79.69; Problem Code Type: ICD-10; Not Available [facility] 3 05:28:28 Disorder of sacrum Active 2022 Not Available [facility] 3 05:28:28 Hip pain Active 2022 Problem Code: M25.559; Problem Code Type: ICD-10; Not Available [facility] 3 05:28:28 Acute upper respiratory infection Completed 201511/21/2017 Problem Code: J06.9; Problem Code Type: ICD-10; Not Available [facility] 3 05:28:30 Blepharitis Completed 201201/28/2018 Problem Code: H01.009; Problem Code Type: ICD-10; Not Available [facility] 3 05:28:31 Cough Completed 201401/28/2018 Problem Code: R05; Problem Code Type: ICD-10; Not Available [facility] 3 05:28:31 Gastroesophag eal reflux disease Completed 201005/29/2023 Not Available [facility] 3 05:28:31 Dizziness and giddiness Completed 201501/28/2018 Problem Code: R42; Problem Code Type: ICD-10; Not Available [facility] 3 05:28:32 Cellulitis Completed 201606/03/2017 Problem Code: L03.119; Problem Code Type: ICD-10; Not Available [facility] 3 05:28:32 Osteopenia Completed 201005/29/2023 Not Available [facility] 3 05:28:32 Effusion of joint Completed 201401/28/2018 Problem Code: M25.40; Problem Code Type: ICD-10; Not Available [facility] 3 05:28:33 Acute bronchitis Completed 201409/25/2016 Problem Code: J20.9; Problem Code Type: ICD-10; Not Available [facility] 3 05:28:33 Hypertensive disorder Completed 201005/29/2023 Not Available [facility] 3 05:28:34 Hernia of anterior abdominal wall Completed 201205/29/2023 Not Available [facility] 3 05:28:35 Bursitis of olecranon of left elbow Completed 201601/28/2018 Problem Code: M70.22; Problem Code Type: ICD-10; Not Available [facility] 3 05:28:36 Pre-surgery evaluation Completed 201606/03/2017 Problem Code: Z01.818; Problem Code Type: ICD-10; Not Available [facility] 3 05:28:36 Acute pharyngitis Completed 201701/28/2018 Problem Code: J02.9; Problem Code Type: ICD-10; Not Available [facility] 3 05:28:37 Colonoscopy Completed 201205/29/2023 Not Available [facility] 3 05:28:38 Specialized medical examination Completed 201205/29/2023 Problem Code: Z01.89; Problem Code Type: ICD-10; Not Available [facility] 3 05:28:39 Chronic maxillary sinusitis Completed 201601/28/2018 Problem Code: J32.0; Problem Code Type: ICD-10; Not Available [facility] 3 05:28:40 Pathological fracture of vertebra Completed 201005/29/2023 Not Available [facility] 3 05:28:40 Hypothyroidis m Completed 201205/29/2023 ENRIQUE LIMON MD [address], [place], [address] , [facility] 3 15:45:28 Adult health examination Completed 201601/28/2018 Problem Code: Z00.00; Problem Code Type: ICD-10; Not Available [facility] 3 05:28:41 Osteoporosis Completed 201005/29/2023 Not Available [facility] 3 05:28:43 Increased frequency of urination Completed 201601/28/2018 Problem Code: R35.0; Problem Code Type: ICD-10; Not Available [facility] 3 05:28:44 Pulmonary hypertension Completed 201405/29/2023 Not Available [facility] 3 05:28:45 Conjunctiviti s Completed 201201/28/2018 Problem Code: H10.89; Problem Code Type: ICD-10; Not Available [facility] 3 05:28:46 Bone density finding Completed 201009/25/2016 Problem Code: M85.80; Problem Code Type: ICD-10; Not Available [facility] 3 05:28:46 Rosacea conjunctiviti s Completed 201205/29/2023 Not Available [facility] 3 05:28:47 Anxiety state Completed 201205/29/2023 Not Available [facility] 3 05:28:48 Obstructed labor due to shoulder dystocia Completed 201501/16/2016 Problem Code: O66.0; Problem Code Type: ICD-10; Not Available [facility] 3 05:28:49 Depressive disorder Completed 201005/29/2023 Not Available [facility] 3 05:28:51 Pneumonia Completed 201701/28/2018 Problem Code: J18.9; Problem Code Type: ICD-10; Not Available [facility] 3 05:28:52 Pain of left shoulder joint Completed 201501/28/2018 Problem Code: M25.512; Problem Code Type: ICD-10; Not Available [facility] 3 05:28:54 History of SARS-CoV-2 Active [address], [place], [address] , [facility] 4 11:04:33 Benign prostatic hyperplasia with outflow obstruction Active [address], [place], [address] , [facility] 4 10:07:46 Notes:*Problem Name: Chronic Dyspnea *ICD-10 [...] Name and Address Organization Details Recorded Time 56248 lisinopri l medicatio n cough moderate Not available 07/12/20232011 86469 RxNorm dry cough Aller gyCod e: '3140 76'; Aller gyNam e: 'XIOMY NOPRI L'; Aller gyCon ceptT ype: 'RX Norm' ; Aller gyRea ction : 'dry cough '; Not Available [facility] 16:21:49 Medications Name Sig Start Date Stop [...] (Ophth) 5 mg/g eye ointment APPLY Q4H 10/29 completed Not Available Not Available Not Available [...] oral route as needed. active RX by [facility] pulmonol ogy Not Available Not Available Not [...] Not Available Rituxan every 16 weeks at [facility]. Labs 1-2 weeks [...] once a day 01/08 completed stopped by [facility] - elevated calcium level Not Available Not [...] on route as needed. active Rx by [facility] pulmonol ogy Not Available Not Available Not Available Vitals Date Recorded Body height Body mass index (BMI) Body weight Heart rate Oxygen saturation Oxygen saturation in Arterial blood by Pulse oximetry Systolic blood pressure Diastolic blood pressure Provider Name and Address Organization Details Last Updated DateTime 4 180.34 cm 29.1 kg/m2 93115.8 1 g 75 /min 87 % 87 % 140 mm[Hg] 72 mm[Hg] Ruthie Ring [facility] 4 09:35:33 Social History Question Answer Notes LastModified by Organizat ion Details LastModified Time Tobacco Smoking Status Never Smoker YAZAN Beaulieu, [facility] 11/19/2023 11:03:00 What Was The Date Of Your Most Recent Tobacco Screening? 11/19/2023 Information not available 11/19/2023 Has Tobacco Cessation Counseling Been Provided? No [email or web address] Information not available 11/19/2023 Do You Or Have You Ever Used Any Other Forms Of Tobacco Or Nicotine? No [email or web address] Information not available 11/19/2023 Sex: Male Functional [...] preservative free, adsorbed 06/14/2020 completed Not Available [facility] 07/12/2023 04:58:16 Tdap 05/08/2012 completed Not Available [facility] 04:58:16 Pneumococcal conjugate PCV 13 06/26/2016 completed Not Available [facility] 07/12/2023 04:58:17 Influenza, high-dose, trivalent, PF 06/04/2018 completed Not Available [facility] 07/12/2023 04:58:18 Influenza, split virus, trivalent, preservative 05/23/2016 completed Not Available [facility] 07/12/2023 04:58:18 Influenza, split virus, trivalent, preservative 05/26/2015 completed Not Available [facility] 07/12/2023 04:58:19 Influenza, high-dose, quadrivalent, PF 06/30/2020 completed Not Available [facility] 07/12/2023 04:58:20 Influenza, high-dose, quadrivalent, PF 06/30/2021 completed Not Available [facility] 07/12/2023 04:58:21 Influenza, high-dose, quadrivalent, PF 07/06/2022 completed Not Available [facility] 07/12/2023 04:58:21 COVID-19, mRNA, LNP-S, PF, 100 mcg/0.5mL dose or 50 mcg/0.25mL dose 11/07/2020 completed Not Available [facility] 07/12/2023 04:58:21 COVID-19, mRNA, LNP-S, PF, 100 mcg/0.5mL dose or 50 mcg/0.25mL dose 12/05/2020 completed Not Available [facility] 07/12/2023 04:58:22 COVID-19, mRNA, LNP-S, PF, 100 mcg/0.5mL dose or 50 mcg/0.25mL dose 12/26/2021 completed Not Available [facility] 07/12/2023 04:58:22 COVID-19, mRNA, LNP-S, PF, 100 mcg/0.5mL dose or 50 mcg/0.25mL dose 06/30/2021 completed Not Available [facility] 07/12/2023 04:58:22 COVID-19, mRNA, LNP-S, bivalent, PF, 30 mcg/0.3 mL dose 07/06/2022 completed Not Available [facility] 07/12/20 04:58:23 pneumococcal polysaccharide PPV23 09/07/2014 completed Not Available [facility] 2022 04:58:23 influenza, unspecified formulation 05/20/2014 completed Not Available [facility] 07/12/2023 04:58:24 influenza, unspecified formulation 06/05/2017 completed Not Available [facility] 07/12/2023 04:58:24 influenza, unspecified formulation 07/02/2019 completed Not Available [facility] 07/12/2023 04:58:26 Influenza, high-dose, quadrivalent, PF 05/14/2023 completed Not Available [facility] 09/13/2023 05:31:41 COVID-19, mRNA, LNP-S, PF, jonathan-sucrose, 30 mcg/0.3 mL 08/21/2023 completed Perico Quiroz MA [facility], [place] - [facility]. 08/21/2023 10:07:33 Past Encounters Encounter ID Performer Location Encounter Start Date Encounter Closed Date Diagnosis/Indication Diagnosis SNOMED-CT Code [id number] LEE MENESES MD [facility] [address] [place] [address] 02/11/2024 09:18:07 02/11/2024 10:20:49 Hypercalcemia 56041333 Cardiomyopathy 79734217 Disorder o f skin and/or subcutaneous tissue 48021789 Benign pro static hyperplasia with outflow obstruction 910574017 Chronic cough 13844524 Hypothyroidism 82652806 Health Concerns Section Related Observation LastModified by Organization Detai ls LastModified Time None Recorded Concern Status LastModified by Organization Details LastModified Time None Recorded Payers Encounter Date Sequence Insurance Name Policy Number Policy Cervantes Covered Member ID Cervantes Member ID Guarantor Name 02/11/2024 1 [employer] (MEDICARE REPLACEMENT/ ADVANTAGE - PPO) Wesly Ybarra [id number] Wesly Ybarra
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
--- OUTSIDE RECORDS SUMMARY | 2024-04-06 02:27 | XMS_ITS | Encounter Summary ---
[place] [address] Care Team Providers Care Supervisor Remelt Name Role Phone Arelis Michele MD Primary Care Provider [phone] Encounter Details Date Type Department Care Team (Latest Contact Info) Description 11/07/2022 Travel Social History Tobacco Use Types Packs/Day Years Used Date Smoking Tobacco: Never Smokeless Tobacco: Never Alcohol Use Standard Drinks/Week Comments No 0 (1 standard drink = 0.6 oz pur e alcohol) Sex and Gender Information Value Date Recorded Sex Assigned at Not on file Gender Identity Not on file Sexual Orientation Not on file documented as of this encounter Plan of Treatment Upcoming Encounters Date Type Department Care Team (Late st Contact Info) Description 04/28/2024 12:00 PM EDT Appointment [place] [address] documented as of this encounter Visit Diagnoses Not on filedocumented in this encounter Care Teams Supervisor Remelt Relationship Specialty Start Date End Date Arelis Michele MD [address] [place] [address] PCP - General Family Medicine 08/01/18 02/11/24 documented as of this encounter
--- OUTSIDE RECORDS SUMMARY | 2024-04-06 02:27 | XMS_ITS | Encounter Summary ---
[place] [address] Care Team Providers Care Senior Ux Designer Name Role Phone Arelis Michele MD Primary Care Provider Encounter Details Date Type Department Care Team (Late st Contact Info) Description 01/10/2023 Ancillary Procedure [place] [address] Arelis Michele MD [address] [place], [place] [address] Social History Tobacco Use Types Packs/Day Years [...] 12:00 PM EDT [place] [phone] documented as of this encounter Procedures Procedure Name Priority Date/Time Associated Diagnosis Comments FILM LIBRARY- STORAGE ONLY DXA IMAGES Routine 01/10/2023 12:00 AM EDT documented in this encounter Results * Film Library- Storage Only DXA Images (01/10/2023 12:00 AM EDT) Narrative RAD - 01/11/2023 4:15 PM EDT This exam is auto-finalizing. It's purpose is for storage only. Arelis Michele MD IMG FILM LIBRARY ORD ERABLES [place], [place] documented in this encounter Visit Diagnoses Not on filedocumented in this encounter Care Teams Senior Ux Designer Relationship Specialty Start Date End Date Arelis Michele MD [address] [place] [address] PCP - General Family Medicine 08/01/18 02/11/24 documented as of this encounter
--- OUTSIDE RECORDS SUMMARY | 2024-04-06 02:27 | XMS_ITS | Encounter Summary ---
Author Organization 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 Name Role Phone Arelis Michele MD Primary Care Provider [phone] Encounter Details Date Type Department Care Team (Late st Contact Info) Description 06/05/2022 9:00 AM EDT Office [place] [address] Alice Carney APRN [facility] [place] [address] Sinus congestion; High risk medication use Social History Tobacco Use Types Packs/Day Years Used Date Smoking Tobacco: Never Smokeless Tobacco: Never Alcohol Use Standard Drinks/Week Comments No 0 (1 standard drink = 0.6 oz pur e alcohol) Sex and Gender Information Value Date Recorded Sex Assigned at Not on file Gender Identity Not on file Sexual Orientation Not on file documented as of this encounter Last Filed Vital Signs Vital Sign Reading Time Taken Comments Blood Pressure 140/64 06/05/2022 8:49 AM EDT Pulse 84 06/05/2022 8:49 AM EDT Temperature 36 ??C (96.8 ??F) 06/05/2022 8:49 AM EDT Respiratory Rate 16 06/05/2022 8:49 AM EDT Oxygen Saturation 97% 06/05/2022 8:49 AM EDT Inhaled Oxygen Concentration - - Weight 99.2 kg (218 lb 12.8 oz) 06/05/2022 8:49 AM EDT Height 179 cm (5' 10.47) 06/05/2022 8:49 AM EDT Body Mass Index 30.98 06/05/2022 8:49 AM EDT documented in this encounter Patient Instructions * Patient Instructions* Alice Carney APRN - 06/05/2022 9:[address] scan for evaluation of your sinuses -- order sent to [facility] so please call to schedule. Schedule a follow up with Dr. Michele a few days after the CT to review results and treat sinuses/eyes, groin rash, as needed. COVID and flu vaccination should be completed at least 2 weeks before your next infusion for max benefit. As long as you are feeling well before your rescheduled infusion you do not need labs again. You should get labs 1-2 weeks before your next appointment with me. documented in this encounter Progress Notes * Alice Carney APRN - 06/05/2022 9:00 AM EDT Rheumatology Follow-up Visit ID: Wesly Ybarra is a 71 y.o.male presenting for ongoing evaluation and management of seropositive rheumatoid arthritis. I have been following his care since 02/14/2021. Last OV: 12/08/2021 (telephone) Rheumatology History: Seropositive Rheumatoid Arthritis: 05/2002 (approx) sudden onset fatigue and aches in hands but whole body affected. Body wide joint aches for several months but then sudden onset of fatigue and hands joint aches. 03/2009: RF 181 & CCP>30 Treatments tried and discontinued: ?? Enbrel helped the most -- needed twice per week and then had recurrent infections. ?? Rituximab for several years but medicare didn't cover all of the cost (/) but he would have liked to stay on it. His breathing has been bad for several years and he feels that the RTX may havehelped with his breathing -- said he had no issues with the infusions including no worsening of SOBor fluid overload. Marked improvement with resumption of Rituxan (received Ruxience) 03/2021 at [facility]. He could not continue with RTX due to [id number] cost then was able to resume name brand Rituxan via [employer] 2021 with benefit to joints. ?? Orencia tried [id number] and stopped due to lack of efficacy and dyspnea. ?? SSZ started 12/2020 and tried for about 2.5-3 weeks but stopped due to nausea, diarrhea, rash, wheezing worsened. ?? 02/28/2021: Prednisone 10 mg daily 3 week taper started 02/15/2021 with about 75% improvement in AM hand clenching and takes about 30 minutes to resolve. This was a huge improvement. ?? 03/21/2021 Ruxience 1000 mg IV Q16W infusion resumed at [facility] -- next infusion cancelled due to unaffordable [id number] cost. ?? Plan was to start Xeljanz 07/2021 given limited options available to patient for treatment givenmedical history and co-morbidities after communication via ED with Wesly Munoz MD, in cardiology. He never started it due to concerns about black box warnings. ?? Started leflunomide 10 mg daily 10/2021 while investigating [employer] Rituxan medication assistance program. No improvement with leflunomide after about 10 weeks of treatment. He did not increase to 20 mg as planned due to persistent sour stomach which resolved with discontinuation. Treatment considerations: ?? 02/14/2021 Denied hx blood clots. + Hx diverticulitis with 18 bowel resected. + CMP. SOB/ZEPEDA -- multifactorial as noted elsewhere. ?? TNFi not preferred due to cardiomyopathy with reduced EF and ongoing dyspnea ?? Actemra contrainidicated due history of diverticulitis with bowel resection ?? Anakinra not preferred due to low liklihood that it would be effective. ?? RITA inhibitor (Xeljanz) approved by insurance but he understandably does not want to take it to due CV risk since he has CAD and cardiomyopathy (followed by cardiology and managed with a atorvastatin, metoprolol, aspirin, and isosorbide). ?? Methotrexate prescribed 08/2021 but stopped after 1 dose due to COVID infection and he is concerned about taking it as he attributes his dyspnea to this medication (etiology of dyspnea is unclear). ?? Cannot take NSAIDS per cardiology. CAD and CMP: [facility] Cardiology OV notes from 09/27/2020 (Wesly Munoz MD) reviewed 02/28/2021. ?? CAD: s/p CABG (Patient Denies!) and s/p mid LAD stent March 2019. Additional workup with CPET planned at [facility] for eval of ongoing SOB (Patient says not done). No ischemia on recent stress test. ?? CMP: Echo 03/08/2020 on file. Per cardio notes -- EF mildly reduced (most recent echo 40-45%). CMPseems a little out of proportion to degree of CAD he has. Cardiac MRI considered. ?? R heart cath March 2019 showed normal filling pressures. ? SOB r/t ILD. Has seen pulm and likely multifactorial including COPD, R hemidiaphragm. 02/28/2021: Sometimes has SOB at rest; + ZEPEDA with minimal activity. Interval History: Current treatment for RA: Rituxan 1000 mg Q4M per [employer] medication assistance program started 02/13/2022. Rituxan infusion tolerated well. He says it has lessened the pain in his hands. Still has some mildstiffness for about an hour in the morning that resolves with activity. Generally feels pretty well but having some issues: Eyes dry, red, running, coughing up green sputum for a couple of months. Sometimes thick and sometimes thin. Sometimes clear and sometimes dark green or light green. Between 1tsp and 1 Tbsp. This goes on all day long. Has seasonal allergies. Has pressure in his sinuses when he leans over. Doesn't think he has had a fever. Tries to get out and do something for a couple of hours then he is very tired the next day. This has been going on for a long time. No air/wind and says he can't walk up hills -- no change in 3-4 years. See cardiology once per year. No pulmonology follow up as noted at prior visits. Constipated all the time. Rash in groin is very itchy. For a couple of months. Denies weeping or drainage. Per 12/2021 OV: [employer] Ritux[employer] medication assistance program was recently approved and he is excited to be able to start with Rituxan infusions again as they have worked very well for him in the past. He continues to have significant joint stiffness in his hands that lasts for about an hour, mostly in his left hand MCPs. He has decreased dexterity. Despite his symptoms he is able to remain quite functional and yesterday finished with the last of his sap boiling resulting in several gallons of maple syrup. He has persistent dyspnea which is ongoing and his extension clerk at [facility] ordered a repeat stress test which he is having in January,. Per 10/2021 OV: Mr. Ybarra did very well with Ruxience 03/2021 and would like to continue with it but it is not affordable. He said he is even willing to see if he can get the money together. His income is less than $20,000 a year. Didn't notice if breathing was better after RTX 03/2021 but joints were great. At his last visit we discussed various options and he started methotrexate but he only took one dose, just before 2020, and contracted Covid and has not taken it since. More detailed reviewof his medical record today and per recall shows that he had sudden onset dyspnea in 2013 and methotrexate was discontinued at that time. His dyspnea has not resolved and he has had extensive follow-up with pulmonology with no clear defined process that would be contributing to his symptoms. It does not look like this is related to the methotrexate but will hold off on resuming this for now. Joints affected by RA: Hands: Mostly L MCP 2-3 -- stiff for 60+ minutes. Decreased dexterity. Lower back injury at work many years ago. Never had issues before that but felt better after the RTX and hasn't acted up since then. COVID: Onset 08/27/2021 with fever, nausea, no vomiting, no diarrhea, lost sense of smell/taste (returned) and cough. Low energy level anyway so not sure if it was worse. He did not receive antivirals or monoclonal antibodies, which he said was not available in his area. He feels that he is recovered well. He met his new extension clerk at [facility] 09/2021 and he is pleased with her approach. Last pulmonology follow-up as noted in rheumatology history with no plans for future follow-up. Pulmonology work-up 08/2020 was unrevealing except for MRSA on sputum culture which was treated with Vantin. Symptoms persist though it sounds like much less sputum production. I wonder if he is having sinus drainage contributing to the sputum and cough. I discussed this case briefly with his jewel staker (though he did not review prior notes and did not recall the patient specifically -- unless patient is having worsening dyspnea or increased sputum or other pulm concerns then it makes sense to follow up primary care with perhaps sinus CT and/or ENT referral and follow up with pulm if needed; it is possible that he is colonized with MRSA which would not in itself indicate a need for treatment). Dyspnea is a big concern for him as noted previously and he gets short of breath walking on anything but flat ground. Etiology is unclear to me at this time. I wonder if this is related to his CV issues vs GERD with some aspiration. He has an ENT evaluation next month. Note that his current symptoms are sometimes not controlled with 40 mg omeprazole so symptoms may just be due to reflux and he may just need a treatment change. Background information per 05/26/2021 OV: Symptoms without treatment: hands with AM curling/clenching and tightness for several hours. He responded well to Ruxience treatment. Fingers joints feel better in the AM -- 70-75% better. They are not clenched up which was a primary issue prior to treatment. He tolerated treatment well. No issues with fluid overload. Note that on 03/21/2021 [facility] Rheumatology nurse confirmed with ASHLEY Wise, that [facility] infusion labthat per their protocol, and in consideration of his cardiomyopathy (EF40%), that if fluid overloadoccurs, Lasix to be ordered or stop infusion and transfer patient to the ED. He unfortunately has not checked on the cost of treatment and is waiting to receive a bill before he determines if he can proceed. He would like to continue with Rituxan if it is affordable but understandably he cannot manage a $3000 co- pay for each treatment. Review of Systems: General: Denies fevers, chills, night sweats, severe illness, recurrent infections, or recent hospitalizations. Normal appetite, stable weight. HEENT: Denies acute visual changes. See Interval History Skin/nails: See Interval History Cardiovascular: Denies chest pain, palpitations. + ZEPEDA with minimal activity -- ongoing. Followed by cardiology at [facility]. Pulmonary: Denies hemoptysis. + SOB at rest at times. Sometimes uses his albuterol inhaler. 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 Physical Examination: Not done (telephone visit) Patient is alert and oriented, in no acute distress, speech clearly articulated in full sentences with unlabored breathing, pleasant affect. Lungs: CTA b/l with mild decreased BS on R c/w prior visit Extremities: Hands: Wrists: No synovitis, tenderness, swelling Elbows: no tenderness or swelling Shoulders: Physical Examination: Patient Vitals for the past 24 hrs: Temp Pulse Resp BP SpO2 06/05/22 0849 36 ??C (96.8 ??F) 84 16 140/64 97 % General: Well developed, well nourished, alert and oriented male in no acute distress HEENT: No scleral injection, no icterus; There is thick white discharge at left lacrimal gland noted. Nasal mucosa with some swelling and erythema. Neck: Supple, no lymphadenopathy Heart: Regular rate and rhythm, no murmur/rub/gallop Lungs: CTA b/l with mild decreased BS on R c/w prior visit Neuro: Gait even and co-ordinated. Speech clearly articulated. No obvious deficits. Motor Equipment Sergeant strength +4/5= bilaterally. Skin: no rheumatologic rashes. GROIN RASH NOTED IN INTERVAL HISTORY NOT ASSESSTED AT THIS VISIT. Extremities: No LE edema. Hands: No synovitis, tenderness, swelling; full fist and decreased claw; no MCP compression tenderness Per 10/2021 OV: L 2nd and 3rd mcp synovitis, none on the left, scattered mcp pip ttp; + L MCP compression tenderness Wrists: No synovitis, tenderness, swelling Elbows: no tenderness or swelling Shoulders: Per prior in-person visit not assessed today: Reduced ROM in all planes L>R, anteriorand posterior ttp on the L, + empty can on the L Knees: No tenderness or swelling Ankles: No tenderness or swelling Feet: No MTP compression tenderness DATA: Labs: [facility] 05/22/2022: Normal CMP and CBC. Mildly elevated CRP at 0.98 (ULN 0.3) with normal ESR at 2. [facility] 06/07/2021: unremarkable CBC, CMP, ESR, CRP. Negative Hepatitis B/C and TB Quant Gold screening. [facility] 03/2021: unremarkable CBC, CMP ASSESSMENT/RECOMMENDATIONS: Seropositive rheumatoid arthritis: Improvement in RA by clinical exam after starting Rituxan 01/2022via [employer] [facility]. He is due to have his second infusion today but I am concerned about a possible sinus infection and a groin rash. The sinus issues and purulent sputum have been an intermittent issue. CT sinus ordered to be done at [facility]. Labs are up-to-date and normal except for mildly elevated CRP. No evidence of CHF on exam today. Once these sinus issues are sorted out and he is feeling wellat the would be safe to proceed with infusion. I contacted the infusion department to reschedule month from now and discuss this plan with him. I reviewed issues that would make it unsafe for him to p roceed with infusion and occluding infection, CHF (reviewed LE edema and worsening dyspnea is concerning symptoms). COVID associated recommendations reviewed. I asked Mr. Ybarra to let me know if he has any questions or concerns. See patient instructions. Osteoporosis with history of pathologic vertebral fracture: Per 10/2021 OV not discussed today: DEXAordered at 02/28/2021 office visit to be done at [facility] and not yet done. Continue with vit d supplementation, avoiding calcium supplementation due to kidney stones. Continue with weightbearing activityas tolerated. I recommend primary care follow up at this point. Possible sinus infection/conjunctivitis and rash: See patient instructions and follow-up with primary care. These issues should be resolved before proceeding with the next Rituxan infusion. Patient Instructions CT scan for evaluation of your sinuses -- order sent to [facility] so please call to schedule. Schedule a follow up with Dr. Michele a few days after the CT to review results and treat sinuses/eyes as needed. COVID and flu vaccination should be completed at least 2 weeks before your next infusion for max benefit. As long as you are feeling well before your rescheduled infusion you do not need labs again. You should get labs 1-2 weeks before your next appointment with me. Orders Placed This Encounter Procedures ??? CT Sinus wo Contrast (Generic) Follow-up 5 months immediately prior to Rituxan infusion. Minutes spent today associated with the office visit including during the visit, chart review, and documentation: 45 Alice Carney APRN CC: Arelis Michele MD documented in this encounter Plan of Treatment Upcoming Encounters Date Type Department Care Team (Late st Contact Info) Description 04/28/2024 12:00 PM EDT [place]ointment [place] [phone] documented as of this encounter Visit Diagnoses Diagnosis Sinus congestion Other diseases of nasal cavity and sinuses High risk medication use Encounter for long-term (current) use of other medications documented in this encounter Care Teams [employer] Crewmember Relationship Specialty Start Date End Date Arelis Michele MD [address] [place] [address] PCP - General Family Medicine 08/01/18 02/11/24 documented as of this encounter
--- OUTSIDE RECORDS SUMMARY | 2024-04-06 02:27 | XMS_ITS | Continuity of Care Document ---
Author Organization [facility] Address [address] [place] [address] Care Team Providers Care Telecasting Engineer Name Role Phone DELPHINE ZARCO Platen Grinder DIONE PATEL Land Inspector [phone] Assessment No assessment recorded. Plan of Treatment Reminders Order Date Submit Date Provider Last Modified By Organization Details Last Modified Time Details Appointments Follow Up 30 2023 08:10A M LEE MENESES Not available Not available Not available Lab None recorded. Referral None recorded. Procedures None recorded. Surgeries None recorded. Imaging XR, chest, 2 view - Persisten t cough and shortness of breath after diagnosis of pneumonia on 12/29 [facility] please compare x-rays 2023 024 [email or web address] [facility] (Radiology), [address] [place] [address] [place], [address], 02/06/2024 12:04:57 Medication Orders prednison e 20 mg tablet 2023 024 [email or web address] [facility], [address] [place], [address], 02/11/2024 09:32:01 Patient TargetsNo targets recorded. Patient Instructions Encounter Date Encounter Id Patient Instructions Last Modified By Organization Details Last Modified Time 01/08/2024 [id number] Wesly: start prednisone today 40 mg a day for 4 days take with food. Use your albuterol nebulizer every 6 hours over the next 7 days get your chest x-ray at [facility] will try to get home oxygen while you are recovering from your pneumonia if you get worse; or shortness of breath cough fever vomiting go to the ER follow-up in 1 week for pneumonia [email or web address] Not available 01/08/2024 08:25:41 Reason for Referral Information Assurance Officer Referral for D isorder of skin and/or subcutaneous tissue referral for presumed BCC on nose and rt ant ear, also rosacea Referring Physician: Lee Meneses, Family Medicine, Encounter Date: 02/11/2024 Results Created Date Observation Date Name Description Value Unit Range Abnormal Flag LastModifiedBy Organization Detail LastModifiedTime 12/28/19 24 12/28/2023 vrad repor t Patien t Name: Iván Grover M Unit #: [id number] Loc: DI Orderi ng Provid er: Accoun t #: [id number] Status : REG CLI Primar y Care Provid er: Hannah Kong M.D. Date of Exam : Sex: M : 1950 Age: 73 Exam(s ) PROCED URE INFORM ATION: Exam: XR Chest Exam date and time: 024 12:15 PM Age: 73 years old Clinic al indica tion: Other: Recent pna, SOB TECHNI QUE: Imagin g protoc ol: Radiol ogic exam of the chest. Views: 2 views. COMPAR BJ: CT CHEST WO 11/05/19 12:28 PM FINDIN GS: Lungs: Stable airspa ce opacit y in the medial right middle lobe partia lly obscur ing the right hemidi aphrag m Pleura l spaces : No pleura l effusi on. No pneumo thorax . Heart/ Medias tinum: No cardio megaly . Diaphr agm: Stable mild elevat ion the right hemidi aphrag m. Bones/ joints : Unrema rkable . IMPRES WILBERT: 1. Stable airspa ce opacit y in the medial right middle lobe which may repres ent persis tent pneumo katlyn versus atelec tasis. 2. Right lung volume is low with elevat ion of right hemidi aphrag m. Dictat ed and Authen ticate d by: Ady lópez MD. Orderi ng:P.B JANEL Montanez MD Access ion#=[id number] Orderoscar d By: CC: ------ ------ ------ ------ ------ ------ ------ ------ ------ ------ ------ ------ ---- Dictat ed By: Report s vrad 1215 [id number] Transc ribed By: Di Merge 1215 This is privil eged, confid ential inform ation intend ed only for the provid er named. Any use or distri bution by any person other than this provid er is strict ly prohib ited. If you receiv e this report in error, please notify us immedi ately at and return the origin al report to us at the addres s above. Thank- you. [facility] [address], [place], [address] 01/05/2024 07:04:06 12/28/19 24 12/28/2023 x-ray imagi ng repor t George t Name: Iván Grover Unit #: [id number] Loc: ABEL Hopkins ng Provid er: April Marion Accanand t #: [id number] Status : REG CLI Primar y Care Provid er: Hannah Kong M.D. Date of Exam : Sex: M Admiss ion Date: : 1950 Age: 73 Exam(s ) XR CHEST 2V PA LATERA L EXAM: XR CHEST 2V PA LATERA L CLINIC AL HISTOR Y: recent pna, sob R06.02 . TECHNI QUE: 2D digita l imagin g was perfor med. COMPAR BJ: CR XR CHEST 2V PA LATERA L from [address] CHEST WO from 2023 FINDRICHA GS: 2 views: Right hemidi aphrag m again noted be elevat ed. Heart size unchan ged in the medias tinum is not widene d. Mild increa sed markin gs in the right lung base above the elevat ed hemidi aphrag m consis tent with scarri ng or atelec tasis. Slight ly increa sed markin gs in left midlun g field may repres ent subtle infilt rate. There are no pleura l effusi ons. IMPRES WILBERT: Subtle findin gs bilate rally, as descri bed above. . No pleura l effusi ons. DATA REPOSI TORY: RADIAT ION DOSE DELIVE RED: Ordere d By: Carlos elizondo,April GO CC: ------ ------ ------ ------ ------ ------ ------ ------ ------ ------ ------ ------ - Dictat ed By: Johnathon West M.D. 142 142 Transc ribed By: Jenna CASTILLO,Diane mariana 142 This is privil eged, confid ential inform ation intend ed only for the provid er named. Any use or distri bution by any person other than this provid er is strict ly prohib ited. If you receiv e this report in error, please notify us immedi elenita at [phone] and return the origin al report to us at the addres s above. Thank- you. [facility] [address], [place], [address] 01/05/2024 07:04:06 12/30/19 24 12/30/2023 x-ray imagi ng repor t Patien t Name: Iván Grover Unit #: [id number] Loc: ER Orderi ng Provid er: Mc Avalos M.D. Accoun t #: [id number] Status : REG ER Primar y Care Provid er: Hannah Kong M.D. Date of Exam : Sex: M Admiss ion Date: : 1950 Age: 73 Exam(s ) XR CHEST 2V PA LATERA L EXAM: XR CHEST 2V PA LATERA L CLINIC AL HISTOR Y: produc tive cough. TECHNI QUE: 2D digita l imagin g was perfor med. COMPAR BJ: CR,XR XR CHEST 2V PA LATERA L from 2023 FINDIN GS: 2 views: Heart size is normal . The medias tinum is not widene d. Elevat ed right hemidi aphrag m again noted. Mild increa sed markin gs in both lung bases appear unchan ged from 2 days ago. There are no effusi ons. No pulmon tavo edema. IMPRES WILBERT: Unchan ged from 2023. DATA REPOSI TORY: RADIAT ION DOSE DELIVE RED: Ordere d By: Mc Avalos M.D. CC: ------ ------ ------ ------ ------ ------ ------ ------ ------ ------ ------ ------ - Dictat ed By: Johnathon West M.D. 1635 1635 Transc ribed By: Jenna CASTILLO,Diane mariana 1635 This is privil eged, confid ential inform ation intend ed only for the provid er named. Any use or distri bution by any person other than this provid er is strict ly prohib ited. If you receiv e this report in error, please notify us immedi ately at and return the origin al report to us at the addres s above. Thank- you. landry [facility] [address] [place], [address] 01/05/2024 07:04:06 01/08/20 24 01/08/2024 XR, chest , 2 view Patien t Name: Iván Grover Unit #: [id number] Loc: ER Orderi ng Provid er: Carlos rs,April Walker t #: [id number] Status : REG ER Primar y Care Provid er: Hannah Kong M.D. Date of Exam : Sex: M Admiss ion Date: : 1950 Age: 73 Exam(s ) XR CHEST 2V PA LATERA L EXAM: XR CHEST 2V PA LATERA L CLINIC AL HISTOR Y: shortn ess of breath TECHNI QUE: 2D digita l imagin g was perfor med. Two views. COMPAR BJ: CR XR CHEST 2V PA LATERA L from 2023 FINDIN GS: HEART: Normal size. Aorta: Not dilate d. PULMON TAVO VASCUL ATURE: Normal . LUNGS: Low lung volume s. Linear scarri ng at left lung base. No focal area of consol idatio n or pulmon tavo edema. PLEURA L SPACE: No pleura l effusi on or pneumo thorax . BONE:U nremar kable for age. Soft tissue s: Unrema rkable . IMPRES WILBERT: No acute abnorm ality. DATA REPOSI TORY: RADIAT ION DOSE DELIVE RED: Ordere d By: April Marion CC: ------ ------ ------ ------ ------ ------ ------ ------ ------ ------ ------ ------ - Dictat ed By: Sheila Alcaraz 1055 1055 Transc ribed By: Jatin Mayen 1055 This is privil eged, confid ential inform ation intend ed only for the provid er named. Any use or distri bution by any person other than this provid er is strict ly prohib ited. If you receiv e this report in error, please notify us immedi ately at [phone] and return the origin al report to us at the addres s above. Thank- you. [place] [id number], [place], [address] 02/06/2024 12:04:57 Result Notes None recorded. Problems Name Status [...] F32.9; Problem Code Type: ICD-10; Not Available [facility] 3 05:28:17 Essential hypertension Active 201011/07/2020 - Comments only - Lee Meneses MD - per recent reading at [facility] I feel this is remaining under reasonable control. He will continue the metoprolol, terazosin. Also on isosorbide. Problem Code: I10; Problem Code Type: ICD-10; ENRIQUE LIMON MD [address], [place], [address] , [facility] 3 15:45:28 Hyperlipidemi a Active 201005/19/2019 - Comments only - Primitivo Brown - He will continue atorvastatin. Problem Code: E78.5; Problem Code Type: ICD-10; Not Available [facility] 3 05:28:17 Generalized anxiety disorder Active 201208/08/2021 - Comments only - Lee Meneses MD - improved now that he has a warm apartment to be in for the winter. He has his name on a list for a senior apartment complex also. He will remain on the wellbutrin and venlafaxine for now. Problem Code: F41.1; Problem Code Type: ICD-10; Not Available [facility] 3 05:28:17 Postprocedura l state finding Active 2012 Problem Code: Z98.89; Problem Code Type: ICD-10; Not Available [facility] 3 05:28:18 Gastrointesti nal tract excision Active 2012 Problem Code: Z90.49; Problem Code Type: ICD-10; Not Available [facility] 3 05:28:18 History of polyp of colon Active 2018 Problem Code: Z86.010; Problem Code Type: ICD-10; Not Available [facility] 3 05:28:18 Gastroesophag eal reflux disease without esophagitis Active 201011/07/2020 - Comments only - Lee Meneses MD - discussed trying to cut back on prilosec. He will continue the AM dose but d/c the PM. He continues on ranitidine at hs. Problem Code: K21.9; Problem Code Type: ICD-10; MD [address] [place], [address] , [facility] 3 15:45:28 Sj??gren's syndrome Active 201308/11/2022 - Comments only - Lee Meneses MD - , Possible Sjogren's. He does have RA as well. Again he is learned to live with it for the most part. Problem Code: M35.00; Problem Code Type: ICD-10; Not Available [facility] 3 05:28:18 Overweight Active 2010 Problem Code: E66.3; Problem Code Type: ICD-10; Not Available [facility] 3 05:28:18 Insomnia Active 201008/08/2021 - Comments only - Lee Meneses MD - doing better on the trazadone, off the temazepam. Will continue to monitor. Problem Code: G47.00; Problem Code Type: ICD-10; Not Available [facility] 3 05:28:18 Osteoporotic fracture of vertebra Active 2010 Problem Code: M80.88xD; Problem Code Type: ICD-10; Not Available [facility] 3 05:28:19 Rheumatoid arthritis Active 201002/12/2023 - Comments only - Lee Meneses MD - He continues on rituxan, followed by rheumatology Problem Code: M06.9; Problem Code Type: ICD-10; MD [address], [place], [address] , [facility] 3 15:45:28 Rosacea Active 201203/18/2022 - Comments only - Lee Meneses MD - Which seems to have flared up with his accidentally using diclofenac gel instead of metronidazole gel. Explained the difference to him. He will garbage pick up man the MetroGel and start using that. If he has not had improvement within 3 to 4 weeks to let us know. Problem Code: L71.9; Problem Code Type: ICD-10; MD [address], [place], [address] , [facility] 3 15:45:28 Secondary pulmonary hypertension Active 2014 Problem Code: I27.2; Problem Code Type: ICD-10; Not Available [facility] 3 05:28:19 Dyspnea Active 201407/05/2021 - Comments [...] R06.00; Problem Code Type: ICD-10; Not Available [facility] 3 05:28:19 Congenital anomaly of diaphragm Active 2014 Problem Code: Q79.1; Problem Code Type: ICD-10; MD [address], [place], [address] , [facility] 3 15:45:29 Polyneuropath y Active 2015 Problem Code: G62.9; Problem Code Type: ICD-10; Not Available [facility] 3 05:28:20 Hypothyroidis m Active 201508/11/2022 - Comments only - Lee Meneses MD - On levothyroxine . TSH ordered. Problem Code: E03.9; Problem Code Type: ICD-10; MD [address], [place], [address] , [facility]. 3 15:45:28 Joint pain Active 2015 Problem Code: M25.50; Problem Code Type: ICD-10; Not Available [facility] 3 05:28:20 Adjustment disorder Active 2015 Problem Code: F43.29; Problem Code Type: ICD-10; Not Available [facility] 3 05:28:20 Osteoporosis Active 2015 Problem Code: M81.8; Problem Code Type: ICD-10; Not Available [facility] 3 05:28:20 Acute upper respiratory infection Completed 201506/09/2016 Problem Code: J06.9; Problem Code Type: ICD-10; Not Available [facility] 3 05:28:20 Bleeding from nose Active 2017 Problem Code: R04.0; Problem Code Type: ICD-10; Not Available [facility] 3 05:28:21 Disorder of pharynx Active 2017 Problem Code: J39.2; Problem Code Type: ICD-10; Not Available [facility] 3 05:28:21 Pain of left shoulder joint Active 2017 Problem Code: M25.512; Problem Code Type: ICD-10; Not Available [facility] 3 05:28:21 Chest pain Active 2017 Problem Code: R07.9; Problem Code Type: ICD-10; Not Available [facility] 3 05:28:21 Wheezing Active 2017 Problem Code: R06.2; Problem Code Type: ICD-10; Not Available [facility] 3 05:28:21 Cough Active 201707/05/2021 - Comments only - Lee Meneses MD - He has had a tickly cough now for years. Initially we thought it was related to lisinopril which was discontinued but this tickly cough never resolved. We will have him try Tessalon Perles as needed, he has used these historically. Problem Code: R05; Problem Code Type: ICD-10; Not Available [facility] 3 05:28:21 Cardiomyopath y Active 201703/18/2022 - Comments only - Lee Meneses MD - /Pulmonary hypertension. Overall he is remaining stable, continues on medications as listed in prior . . Problem Code: I42.9; Problem Code Type: ICD-10; MD [address], [place], [address] , [facility] 3 15:45:29 Melena Active 2017 Problem Code: K92.1; Problem Code Type: ICD-10; Not Available [facility] 3 05:28:22 Screening for malignant neoplasm of colon Active 201803/10/2019 - Comments only - Lee Meneses MD - colonoscopy 2019 with tubular adenoma with high grade dysplasia - repeat by early 2019 Problem Code: Z12.11; Problem Code Type: ICD-10; Not Available [facility] 3 05:28:22 Itching of skin Active 2018 Problem Code: L29.9; Problem Code Type: ICD-10; Not Available [facility] 3 05:28:23 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 He continues on atorvastatin, metoprolol, isosorbide, ASA. Problem Code: I25.10; Problem Code Type: ICD-10; MD [address], [place], [address] , [facility] 3 15:45:28 Adult health examination Active 201803/06/2021 - Comments only - Lee Meneses MD - He would like to check a PSA with the blood work. Problem Code: Z00.00; Problem Code Type: ICD-10; Not Available [facility] 3 05:28:23 Benign prostatic hyperplasia Active 201805/19/2019 - Comments only - Lee Meneses MD - with persistent nocturia - will have him increase the terazosin to 4mg qhs Problem Code: N40.0; Problem Code Type: ICD-10; MD [address], [place], [address] , [facility] 3 15:45:28 Dysphagia Active 201805/19/2019 - Comments only - Lee Meneses MD - ongoing - this may be related to Sicca syndrome. He had an ENT w/u without dx found, no upper endoscopy or barium swallow studies in our system. I will ask him about these when I call him with bloodwork results. Problem Code: R13.10; Problem Code Type: ICD-10; Not Available [facility] 3 05:28:23 Non-traumatic tendon rupture Active 2018 Problem Code: M66.871; Problem Code Type: ICD-10; Not Available [facility] 3 05:28:24 Mild intermittent asthma Active 201803/18/2022 - Comments only - Lee Meneses MD - With chronic dyspnea on exertion. He continues on Symbicort, Singulair. I did suggest he can use the ProAir prior to exercise and he will try that. Problem Code: J45.20; Problem Code Type: ICD-10; Not Available [facility] 3 05:28:24 Traumatic or non-traumatic injury Active 201903/06/2021 - Comments only - Lee Meneses MD - Right status post injury. Resolving well at this point. Problem Code: T14.8xxA; Problem Code Type: ICD-10; Not Available [facility] 3 05:28:24 Pain of joint of knee Active 2019 Problem Code: M25.569; Problem Code Type: ICD-10; Not Available [facility] 3 05:28:24 Actinic keratosis Active 2019 Problem Code: L57.0; Problem Code Type: ICD-10; Not Available [facility] 3 05:28:25 Pain of right knee joint Active 2019 Problem Code: M25.561; Problem Code Type: ICD-10; Not Available [facility] 3 05:28:25 Prediabetes Active 201908/11/2022 - Comments only - Lee Meneses MD - He will be due for an A1c at the next visit. Problem Code: R73.03; Problem Code Type: ICD-10; ENRIQUE LIMON MD [address], [place], [address] , [facility] 15:45:29 Periapical abscess Active 2019 Problem Code: K04.7; Problem Code Type: ICD-10; Not Available [facility] 3 05:28:26 Disorder of skin and/or subcutaneous tissue Active 202003/18/2022 - Comments only - Lee Meneses MD - Right posterior ear. We will refer Wesly to Dr. Wade for further evaluation/bi opsy. Problem Code: L98.9; Problem Code Type: ICD-10; Not Available [facility] 3 05:28:26 Therapeutic drug monitoring assay Active 2020 Problem Code: Z51.81; Problem Code Type: ICD-10; Not Available [facility] 3 05:28:26 Ureteric stone Active 202007/05/2021 - Comments only - Lee Meneses MD - Currently resolved. Following with urology Problem Code: N20.1; Problem Code Type: ICD-10; Not Available [facility] 3 05:28:26 COVID-19 Active 202111/06/2021 - Comments only - Lee Meneses MD - About 2 months ago. Minimal symptoms, resolved. We did discuss the possibility of the Laura Madrigal I need to find out whether and when he may be a candidate for that given that he has had Covid infection. Problem Code: U07.1; Problem Code Type: ICD-10; Not Available [facility] 3 05:28:26 Disorder of nasal sinus Active [...] on any steroid nasal sprays. Not Available [facility] 3 05:28:27 Chronic cough Active 202102/13/2023 - [...] states he did meet with pulmonology at [facility] at 1 point but they just told him symptoms were on his head . We will try and obtain that note. Problem Code: R05.3; Problem Code Type: ICD-10; MD [address], [place], [address] , [place] [facility]. 3 15:45:28 Basal cell carcinoma of skin [...] C44.91; Problem Code Type: ICD-10; Not Available [facility] 3 05:28:27 Benign neoplasm of colon Active 202108/11/2022 - Comments only - Lee Meneses MD - , History of. Due for colonoscopy. Problem Code: D12.6; Problem Code Type: ICD-10; MD [address], [place], [address] , [facility]. 3 15:45:29 Degenerative disorder of macula Active 2022 Problem Code: H35.30; Problem Code Type: ICD-10; Not Available [facility] 3 05:28:28 Long-term current use of drug therapy Active 2022 Problem Code: Z79.69; Problem Code Type: ICD-10; Not Available [facility] 3 05:28:28 Disorder of sacrum Active 2022 Not Available [facility] 3 05:28:28 Hip pain Active 2022 Problem Code: M25.559; Problem Code Type: ICD-10; Not Available [facility] 3 05:28:28 Acute upper respiratory infection Completed 201511/21/2017 Problem Code: J06.9; Problem Code Type: ICD-10; Not Available [facility] 3 05:28:30 Blepharitis Completed 201201/28/2018 Problem Code: H01.009; Problem Code Type: ICD-10; Not Available [facility] 3 05:28:31 Cough Completed 201401/28/2018 Problem Code: R05; Problem Code Type: ICD-10; Not Available [facility] 3 05:28:31 Gastroesophag eal reflux disease Completed 201005/29/2023 Not Available [facility] 3 05:28:31 Dizziness and giddiness Completed 201501/28/2018 Problem Code: R42; Problem Code Type: ICD-10; Not Available [facility] 3 05:28:32 Cellulitis Completed 201606/03/2017 Problem Code: L03.119; Problem Code Type: ICD-10; Not Available [facility] 3 05:28:32 Osteopenia Completed 201005/29/2023 Not Available [facility] 3 05:28:32 Effusion of joint Completed 201401/28/2018 Problem Code: M25.40; Problem Code Type: ICD-10; Not Available [facility] 3 05:28:33 Acute bronchitis Completed 201409/25/2016 Problem Code: J20.9; Problem Code Type: ICD-10; Not Available [facility] 3 05:28:33 Hypertensive disorder Completed 201005/29/2023 Not Available [facility] 3 05:28:34 Hernia of anterior abdominal wall Completed 201205/29/2023 Not Available [facility] 3 05:28:35 Bursitis of olecranon of left elbow Completed 201601/28/2018 Problem Code: M70.22; Problem Code Type: ICD-10; Not Available [facility] 3 05:28:36 Pre-surgery evaluation Completed 201606/03/2017 Problem Code: Z01.818; Problem Code Type: ICD-10; Not Available [facility] 3 05:28:36 Acute pharyngitis Completed 201701/28/2018 Problem Code: J02.9; Problem Code Type: ICD-10; Not Available [facility] 3 05:28:37 Colonoscopy Completed 201205/29/2023 Not Available [facility] 3 05:28:38 Specialized medical examination Completed 201205/29/2023 Problem Code: Z01.89; Problem Code Type: ICD-10; Not Available [facility] 3 05:28:39 Chronic maxillary sinusitis Completed 201601/28/2018 Problem Code: J32.0; Problem Code Type: ICD-10; Not Available [facility] 3 05:28:40 Pathological fracture of vertebra Completed 201005/29/2023 Not Available [facility] 3 05:28:40 Hypothyroidis m Completed 201205/29/2023 ENRIQUE LIMON MD [address], [place], [address] , [facility]. 3 15:45:28 Adult health examination Completed 201601/28/2018 Problem Code: Z00.00; Problem Code Type: ICD-10; Not Available [facility] 3 05:28:41 Osteoporosis Completed 201005/29/2023 Not Available [facility] 3 05:28:43 Increased frequency of urination Completed 201601/28/2018 Problem Code: R35.0; Problem Code Type: ICD-10; Not Available [facility] 3 05:28:44 Pulmonary hypertension Completed 201405/29/2023 Not Available [facility] 3 05:28:45 Conjunctiviti s Completed 201201/28/2018 Problem Code: H10.89; Problem Code Type: ICD-10; Not Available [facility] 3 05:28:46 Bone density finding Completed 201009/25/2016 Problem Code: M85.80; Problem Code Type: ICD-10; Not Available [facility] 3 05:28:46 Rosacea conjunctiviti s Completed 201205/29/2023 Not Available [facility] 3 05:28:47 Anxiety state Completed 201205/29/2023 Not Available [facility] 3 05:28:48 Obstructed labor due to shoulder dystocia Completed 201501/16/2016 Problem Code: O66.0; Problem Code Type: ICD-10; Not Available [facility] 3 05:28:49 Depressive disorder Completed 201005/29/2023 Not Available [facility] 3 05:28:51 Pneumonia Completed 201701/28/2018 Problem Code: J18.9; Problem Code Type: ICD-10; Not Available [facility] 3 05:28:52 Pain of left shoulder joint Completed 201501/28/2018 Problem Code: M25.512; Problem Code Type: ICD-10; Not Available [facility] 3 05:28:54 History of SARS-CoV-2 Active [address], [place], [address] , [facility] 4 11:04:33 Benign prostatic hyperplasia with outflow obstruction Active [address], [place], [address] , [facility] 4 10:07:46 Notes:*Problem Name: Chronic Dyspnea *ICD-10 [...] Name and Address Organization Details Recorded Time 25428 lisinopri l medicatio n cough moderate Not available 07/12/20232011 71946 RxNorm dry cough Aller gyCod e: '3140 76'; Aller gyNam e: 'XIOMY NOPRI L'; Aller gyCon ceptT ype: 'RX Norm' ; Aller gyRea ction : 'dry cough '; Not Available [facility] 3 16:21:49 Medications Name Sig Start [...] oral route as needed. active RX by [facility] pulmonol ogy Not Available Not Available Not [...] Not Available Rituxan every 16 weeks at [facility]. Labs 1-2 weeks prior to infusion active [...] on route as needed. active Rx by [facility] pulmonol [facility] Not Available Not Available Not Available Vitals Date Recorded Body height Body temperature Oxygen saturation Oxygen saturation in Arterial blood by Pulse oximetry Heart rate Oxygen saturation Oxygen saturation in Arterial blood by Pulse oximetry Oxygen saturation Oxygen saturation in Arterial blood by Pulse oximetry Oxygen saturation Oxygen saturation in Arterial blood by Pulse oximetry Inhaled oxygen flow rate Oxygen saturation Oxygen saturation in Arterial blood by Pulse oximetry Inhaled oxygen flow rate Systolic blood pressure Diastolic blood pressure Provider Name and Address Organization Details Last Updated DateTime 4 180.34 cm 96.7 [degF] 87 % 87 % 98 /min 91 % 91 % 87 % 87 % 93 % 93 % 2 L/min 92 % 92 % 2 L/min 130 mm[Hg] 82 mm[Hg] NASREEN DAUGHERTY LPN [facility] 4 08:02:17 Social History Question Answer Notes LastModified by Organizat ion Details LastModified Time Tobacco Smoking Status Never Smoker Perico Quiroz MA [facility], [facility] 11/19/2023 11:03:00 What Was The Date Of Your Most Recent Tobacco Screening? 11/19/2023 Information not available 11/19/2023 Has Tobacco Cessation Counseling Been Provided? No [email or web address] Information not available 11/19/2023 Do You Or Have You Ever Used Any Other Forms Of Tobacco Or Nicotine? No [email or web address] Information not available 11/19/2023 Sex: Male Functional [...] preservative free, adsorbed 06/14/2020 completed Not Available [facility] 07/12/2023 04:58:16 Tdap 05/08/2012 completed Not Available [facility] 04:58:16 Pneumococcal conjugate PCV 13 06/26/2016 completed Not Available [facility] 07/12/2023 04:58:17 Influenza, high-dose, trivalent, PF 06/04/2018 completed Not Available [facility] 07/12/2023 04:58:18 Influenza, split virus, trivalent, preservative 05/23/2016 completed Not Available [facility] 07/12/2023 04:58:18 Influenza, split virus, trivalent, preservative 05/26/2015 completed Not Available [facility] 07/12/2023 04:58:19 Influenza, high-dose, quadrivalent, PF 06/30/2020 completed Not Available [facility] 07/12/2023 04:58:20 Influenza, high-dose, quadrivalent, PF 06/30/2021 completed Not Available [facility] 07/12/2023 04:58:21 Influenza, high-dose, quadrivalent, PF 07/06/2022 completed Not Available [facility] 07/12/2023 04:58:21 COVID-19, mRNA, LNP-S, PF, 100 mcg/0.5mL dose or 50 mcg/0.25mL dose 11/07/2020 completed Not Available [facility] 07/12/2023 04:58:21 COVID-19, mRNA, LNP-S, PF, 100 mcg/0.5mL dose or 50 mcg/0.25mL dose 12/05/2020 completed Not Available [facility] 07/12/2023 04:58:22 COVID-19, mRNA, LNP-S, PF, 100 mcg/0.5mL dose or 50 mcg/0.25mL dose 12/26/2021 completed Not Available [facility] 07/12/2023 04:58:22 COVID-19, mRNA, LNP-S, PF, 100 mcg/0.5mL dose or 50 mcg/0.25mL dose 06/30/2021 completed Not Available [facility] 07/12/2023 04:58:22 COVID-19, mRNA, LNP-S, bivalent, PF, 30 mcg/0.3 mL dose 07/06/2022 completed Not Available [facility] 07/12/20 04:58:23 pneumococcal polysaccharide PPV23 09/07/2014 completed Not Available [facility] 2022 04:58:23 influenza, unspecified formulation 05/20/2014 completed Not Available [facility] 07/12/2023 04:58:24 influenza, unspecified formulation 06/05/2017 completed Not Available [facility] 07/12/2023 04:58:24 influenza, unspecified formulation 07/02/2019 completed Not Available [facility] 07/12/2023 04:58:26 Influenza, high-dose, quadrivalent, PF 05/14/2023 completed Not Available [facility] 09/13/2023 05:31:41 COVID-19, mRNA, LNP-S, PF, jonathan-sucrose, 30 mcg/0.3 mL 08/21/2023 completed YAZAN [place], [place] - [facility]. 08/21/2023 10:07:33 Past Encounters Encounter ID Performer Location Encounter Start Date Encounter Closed Date Diagnosis/Indication Diagnosis SNOMED-CT Code [id number] DOUGLAS MORIN [address] [address] 01/08/2024 07:49:22 01/08/2024 08:44:03 Pneumonia [id number] Health Concerns Section Related Observation LastModified by Organization Detai ls LastModified Time None Recorded Concern Status LastModified by Organization Details LastModified Time None Recorded Payers Encounter Date Sequence Insurance Name Policy Number Policy Cervantes Covered Member ID Cervantes Member ID Guarantor Name 01/08/2024 1 [employer] (MEDICARE REPLACEMENT/ ADVANTAGE - PPO) Wesly Ybarra [id number] Wesly Ybarra Notes Date Note Type Note Provider Name and Address Organization Details Recorded Time 01/08/2024 text/html HPI Notes: 73-year-old man here for ER follow-up? was seen at [facility] ER12/30/2023 for pneumonia? had complained of worsening productive cough over the past several days, intermittent episodes of hypoxia? in ER O2 saturation 91% on room air speaking full sentences no peripheral edema. Started Augmentin and azithromycin, BP was elevated at 189/113? treated with hydralazine and a dose of Lasix sent home on Augmentin treated with nebulizers sent home on Augmentin and azithromycin. Today 01/08/2024 he is reporting persistent shortness of breath? productive cough but it is clear to white, reporting chills, ? fever, sinus congestion feels that his breathing has improved since his ER visit- although still SOB. He is not sleeping well. Non-smoker and never was a smoker, no history of lung disease. He lives alone. ANAI MALAGON, DOUGLAS [address], [place], [address], [facility] - [facility]. 01/08/2024 13:45:12
--- OUTSIDE RECORDS SUMMARY | 2024-04-06 02:27 | XMS_ITS | Encounter Summary ---
[place] [address] Care Team Providers Care Driver/Refuse Collector Name Role Phone Arelis Michele MD Primary Care Provider Reason for Visit * Reason Comments Medication Management Rituximab (rituxan ) Encounter Details Date Type Department Care Team (Late st Contact Info) Description 11/04/2023 Specialty [place] [address] Mariela Ritter, [facility] Social History Tobacco Use Types Packs/Day Years Used Date Smoking Tobacco: Never Smokeless Tobacco: Never Alcohol Use Standard Drinks/Week Comments No 0 (1 standard drink = 0.6 oz pur e alcohol) Sex and Gender Information Value Date Recorded Sex Assigned at Not on file Gender Identity Not on file Sexual Orientation Not on file documented as of this encounter Progress Notes * Mariela Ritter [facility] - 11/04/2023 12:33 PM EST Specialty Pharmacy Consultation; Mariela Ritter Jay Comprehensive Medication Management (CMM): Specialty Consult, Intervention Wesly Ybarra Diagnosis: Rheumatoid Arthritis Recommendation: Himanshu cano [employer] is helping Wesly Ybarra receive free medication through [employer]. I sent the patient the application via [employer] (put in the mail on 11/04/23). We will get Alice Angelika's portion signed when she is back in office on 11/05/23. Outcome: Patient will fill out his signature and then send it back to us to send to [employer]. Specialty Pharmacy Intervention: Intervention Category (Nature of Intervention): Formulary Related/Financial Issues Formulary Related/Financial Issues: Referred to office-led MAP, Test Preparation Tutor Prescriber accepted response (Prescriber accept Intervention): Accepted Mariela Ritter RPH 11/04/23 12:36 PM * Mariela Ritter RPH - 11/04/2023 12:33 PM EST Provider portion signed and sent back to Isma Sam. 11/05/23 documented in this encounter Plan of Treatment Upcoming Encounters Date Type Department Care Team (Late st Contact Info) Description 04/28/2024 12:00 PM EDT [place] [address] documented as of this encounter Visit Diagnoses Not on filedocumented in this encounter Care Teams Driver/Refuse Collector Relationship Specialty Start Date End Date Arelis Michele MD [address] [place] [address] PCP - General Family Medicine 08/01/18 02/11/24 documented as of this encounter
--- OUTSIDE RECORDS SUMMARY | 2024-04-06 02:27 | XMS_ITS | Encounter Summary ---
[place] [address] Care Team Providers Care Lymphedema Therapist Name Role Phone Arelis Michele MD Primary Care Provider [phone] Encounter Details Date Type Department Care Team (Late st Contact Info) Description 06/04/2022 Telephone [place] [address] Bernie Ott MA Social History Tobacco Use Types Packs/Day Years Used Date Smoking Tobacco: Never Smokeless Tobacco: Never Alcohol Use Standard Drinks/Week Comments No 0 (1 standard drink = 0.6 oz pur e alcohol) Sex and Gender Information Value Date Recorded Sex Assigned at Not on file Gender Identity Not on file Sexual Orientation Not on file documented as of this encounter Miscellaneous Notes * Telephone Encounter - Bernie Ott RMA - 06/04/2022 9:45 AM EDT Called patient for pre-charting, no answer. YULISA GARCIA documented in this encounter Plan of Treatment Upcoming Encounters Date Type Department Care Team (Late st Contact Info) Description 04/28/2024 12:00 PM EDT Appointment [place] [address] documented as of this encounter Visit Diagnoses Not on filedocumented in this encounter Care Teams Lymphedema Therapist Relationship Specialty Start Date End Date Arelis Michele MD [address] [place] [address] PCP - General Family Medicine 08/01/18 02/11/24 documented as of this encounter
--- OUTSIDE RECORDS SUMMARY | 2024-04-06 02:27 | XMS_ITS | Encounter Summary ---
Author Organization [facility]ly [place] [address] Care Team Providers Care Convict Guard Name Role Phone Arelis Michele MD Primary Care Provider [phone] Encounter Details Date Type Department Care Team (Late Contact Info) Description 07/12/2022 Telephone [place] [address] Stefany Rosales Social History Tobacco Use Types Packs/Day Years [...] encounter Miscellaneous Notes * Telephone Encounter - Stefany Rosales - 07/12/2022 9:09 AM EST Contacted pt to get him rescheduled however man that answers phone states he is no longer here and that he has no new number for him. documented in this encounter Plan of Treatment Upcoming Encounters Date Type Department Care Team (Late Contact Info) Description 04/28/2024 12:00 PM EDT [place] [address] documented as of this encounter Visit Diagnoses Not on filedocumented in this encounter Care Teams Convict Guard Relationship Specialty Start Date End Date Arelis Michele MD [address] [place] [address] PCP - General Family Medicine 08/01/18 02/11/24 documented as of this encounter
--- OUTSIDE RECORDS SUMMARY | 2024-04-06 02:27 | XMS_ITS | Encounter Summary ---
Author Organization [facility] [place] [address] Care Team Providers Care Revenue Enforcement Agent Name Role Phone Arelis Michele MD Primary Care Provider [phone] Encounter Details Date Type Department Care Team (Late st Contact Info) Description 01/10/2023 Orders [place] [address] Alice Carney APRN [facility] [place] [address] Social History Tobacco Use Types Packs/Day Years [...] 12:00 PM EDT Appointment [place] [address] documented as of this encounter Visit Diagnoses Not on filedocumented in this encounter Care Teams Revenue Enforcement Agent Relationship Specialty Start Date End Date Arelis Michele MD [address] [place], [place] [address] PCP - General Family Medicine 08/01/18 02/11/24 documented as of this encounter
--- OUTSIDE RECORDS SUMMARY | 2024-04-06 02:27 | XMS_ITS | Encounter Summary ---
[place] [address] Care Team Providers Care Advertising Coordinator Name Role Phone Arelis Michele MD Primary Care Provider [phone] Encounter Details Date Type Department Care Team (Latest Contact Info) Description 09/17/2023 Travel Social History Tobacco Use Types Packs/Day [...] 12:00 PM EDT Appointment [place] [address] documented as of this encounter Visit Diagnoses Not on filedocumented in this encounter Care Teams Advertising Coordinator Relationship Specialty Start Date End Date Arelis Michele MD [address] [place] [address] PCP - General Family Medicine 08/01/18 02/11/24 documented as of this encounter
--- OUTSIDE RECORDS SUMMARY | 2024-04-06 02:27 | XMS_ITS | Encounter Summary ---
[place] [address] Care Team Providers Care Burglar Alarm Installer Name Role Phone Arelis Michele MD Primary Care Provider [phone] Encounter Details Date Type Department Care Team (Late st Contact Info) Description 06/25/2022 Telephone [place] [id number] Carmen Johnston RN Social History Tobacco Use Types Packs/Day Years [...] encounter Miscellaneous Notes * Telephone Encounter - Alice Carney APRN - 06/27/2022 5:25 AM EDT Letter sent * Telephone Encounter - Carmen Johnston RN - 06/26/2022 10:49 AM EDT Call x 2, no answer. Not able to leave a message as the mailbox is full and will not accept them. Call to alternate number-this was a fax number so not able to use. * Telephone Encounter - Carmen Johnston RN - 06/25/2022 2:30 PM EDT Call to the patient, no answer. Asked to RTC to nurse to discuss the message from Alice Carney APRN. ----- Message from Alice Carney APRN sent at 06/22/2022 11:35 PM EDT ----- Please advise patient that his sinus CT showed no evidence of infection though it does not explain why he has been having green sputum. As we discussed at his 06/05/22 visit he should see Dr[address] Michele to assess for s/s of infection and also to address his rash. If everything is okay at that point it should be fine for him to have a RTX infusion -- he should call infusion dept directly to reschedulethe infusion that was cancelled 06/05/22. Thank you! documented in this encounter Plan of Treatment Upcoming Encounters Date Type Department Care Team (Late st Contact Info) Description 04/28/2024 12:00 PM EDT Appointment [place] [address] documented as of this encounter Visit Diagnoses Not on filedocumented in this encounter Care Teams Burglar Alarm Installer Relationship Specialty Start Date End Date Arelis Michele MD [address] [place] [address] PCP - General Family Medicine 08/01/18 02/11/24 documented as of this encounter
--- OUTSIDE RECORDS SUMMARY | 2024-04-06 02:27 | XMS_ITS | Encounter Summary ---
Author Organization [facility] [place] [address] Care Team Providers Care Industrial Spray Painter Name Role Phone Arelis Michele MD Primary Care Provider [phone] Encounter Details Date Type Department Care Team (Late st Contact Info) Description 01/06/2024 Orders [place] [address] [facility] [place] [address] Social History Tobacco Use Types Packs/Day Years [...] 12:00 PM EDT [place] [address] documented as of this encounter Visit Diagnoses Not on filedocumented in this encounter Care Teams Industrial Spray Painter Relationship Specialty Start Date End Date Arelis Michele MD [address] [place], [place] [address] PCP - General Family Medicine 08/01/18 02/11/24 documented as of this encounter
--- OUTSIDE RECORDS SUMMARY | 2024-04-06 02:27 | XMS_ITS | Encounter Summary ---
Author Organization [facility] [place] [address] Care Team Providers Care Emotional Disabilities Teacher Name Role Phone Arelis Michele MD Primary Care Provider Reason for Visit * Treatment/Therapy Plan Authorization (Routine) - Closed Specialty Diagnoses / Procedures Referred By Azam corbett Referred To Contact Rheumatology Diagnoses Rheumatoid arthritis, involving unspecified site, unspecified whether rheumatoid factor present Procedures INFUSION THERAPY TC RITUXIMAB, 10MG INJECTION Alice Carney [facility] [place] [address] Alice Carney [facility] [place] [address] Referral ID Status Reason Start Date Expiration Date Visits Re quested Visits Authorized [id number] Closed 01/10/2023 01/10/[phone] Encounter Details Date Type Department Care Team (Latest Contact Info) Description 05/28/2023 11:29 AM EDT - 05/28/2023 11:59 PM EDT Hospital [place] [id number] Rheumatoid arthritis, involving unspecified site, unspecified whether rheumatoid factor present Discharge Disposition: Home Social History Tobacco Use Types Packs/Day Years [...] Sign Reading Time Taken Comments Blood Pressure 125/74 05/28/2023 11:42 AM EDT Pulse 67 05/28/2023 11:42 AM EDT Temperature 36.8 ??C (98.2 ??F) 05/28/2023 11:42 AM E DT Respiratory Rate 17 05/28/2023 11:42 AM EDT Oxygen Saturation 98% 05/28/2023 11:42 AM EDT Inhaled Oxygen Concentration - - Weight 95 kg (209 lb 6.4 oz) 05/28/2023 11:42 AM EDT Height - - Body Mass Index 29.21 05/28/2023 10:50 AM EDT documented in this encounter Medications at Time of Discharge Medication Sig Dispensed Refills Start Date End Date loratadine (Claritin) 10 mg Tablet Take 10 mg by mouth daily. 05/16/2023 venlafaxine XR (Effexor-XR) 75 mg ER 24 hr capsule Take 75 mg by mouth daily. With the 150 mg atorvastatin (Lipitor) 20 mg Tablet Take 20 mg by mouth daily. 03/21/2022 terazosin (Hytrin) 5 mg Capsule Take 5 mg by mouth nightly. 06/02/2022 amLODIPine (Norvasc) 2.5 mg Tablet Take 2.5 mg by mouth daily. 09/25/2021 montelukast (Singulair) 10 mg Tablet TAKE ONE TABLET BY MOUTH EVERY DAY TO SEE IF HELPS WITH BREATHING 11/24/2021 traZODone (Desyrel) 50 mg Tablet Take 100 mg by mouth nightly. isosorbide mononitrate CR (Imdur) 30 mg Tablet Sustained Release 24 hr Take 30 mg by mouth daily. 11/26/2020 metoprolol succinate XL (Toprol-XL) 25 mg Tablet Sustained Release 24 hr Take 25 mg by mouth daily. 09/13/2020 budesonide-formoteroL (Symbicort) 160-4.5 mcg/actuation HFA Aerosol Inhaler Inhale 2 puffs into the lungs 2 times daily. 1 Inhaler 12 08/29/2020 ascorbic acid, vitamin C, (VITAMIN C) 500 mg Tablet, Chewable Take by mouth daily. diclofenac (VOLTAREN) 1 % Gel Apply 4g topically to shoulder up to 4x daily. 100 g 3 04/06/2020 clopidogrel (PLAVIX) 75 mg Tablet Take 1 tablet by mouth daily. 90 tablet 3 03/21/2019 benzonatate (TESSALON) 200 mg Capsule Take 1 capsule by mouth 3 times daily as needed for Cough. 30 capsule 09/05/2018 nitroGLYcerin (NITROSTAT) 0.4 mg Tablet, Sublingual PLACE ONE TABLET UNDER THE TONGUE EVERY 5 MINUTES FOR UP TO 3 DOSES NEEDED FOR CHEST PAIN. IF CHEST PAIN STILL PERSISTS CONTACT 911 1 05/13/2018 albuterol 90 mcg/actuation HFA Aerosol Inhaler Inhale 2 puffs into the lungs Every 6 hours as needed. levothyroxine (SYNTHROID) 50 mcg Tablet Take 1 tablet by mouth daily. 01/07/2018 buPROPion (WELLBUTRIN SR OR ZYBAN) 150 mg Tablet Sustained Release 12 hr Take 150 mg by mouth daily. 07/12/2017 losartan (COZAAR) 25 mg Tablet Take 25 mg by mouth daily. 07/12/2017 metroNIDAZOLE (METROCREAM) 0.75 % Cream as needed. 06/17/2017 venlafaxine (EFFEXOR-XR) 150 mg Capsule, Sust. Release 24 hr Take 150 mg by mouth daily. Takes 225 mg daily 05/01/2017 carvedilol (COREG) 12.5 mg Tablet Take 12.5 mg by mouth daily. 12/26/2015 aspirin 81 mg EC tablet Take 81 mg by mouth daily. fluticasone (FLONASE) 50 mcg/actuation nasal sprayIndications:Post-n sunny drip 1 spray by Each Nare route 2 times daily. 16 g 12 11/09/2013 cholecalciferol, Vitamin D3, 50 mcg (2,000 unit) Capsule Take 2,000 Units by mouth daily. acetaminophen (Tylenol) 500 mg Tablet Take 1,000 mg by mouth every 6 hours as needed. omeprazole (PRILOSEC) 40 mg capsule Take 40 mg by mouth daily. MULTIVITAMIN/IRON/FOLIC ACID (DAILY MULTI ORAL) Take 1 tablet by mouth daily. CIS Free Text Med - OTC mositurizing eye drops 11/02/2010 tobramycin-dexAMETHason e (Tobradex) Drops, Suspension Place into both eyes as needed. 09/13/2022 09/17/2023 methylPREDNISolone (MEDROL) 4 mg Tablet Take 0.5 tablets by mouth daily. 45 tablet 02/28/2016 09/17/2023 documented as of this encounter Progress Notes * Jesús Garcia RN - 05/28/2023 12:16 PM EDT Medical Infusion Nursing Note DIA. Rheumatoid arthritis, involving unspecified site, unspecified whether rheumatoid factor present REASON FOR VISIT: Rituxan Infusion SUBJECTIVE: Offers no complaints. OBJECTIVE: Last dose received on 02/05/23 VITALS: BP 125/74 (BP Location (NBP): Left arm, Patient Position: Sitting, BP Cuff Sizes: Adult (25-34 cm)) Pulse 67 Temp 36.8 ??C (98.2 ??F) (Temporal) Resp 17 Wt 95 kg (209 lb 6.4 oz) SpO2 98% BMI 29.21 kg/m?? IF PAIN >5, INTERVENTION AND EFFECTIVENESS: na IV ACCESS: Peripheral IV Line - Single Lumen 05/28/23 1156 basilic vein (medial side of arm), left 22 gauge;1 in length (Active) Site Preparation/Maintenance site cleansed: chlorhexidine solution;dressing: transparent semipermeable applied 05/28/23 1200 Patency/Maintenance flushed without difficulty;blood return, able to obtain 05/28/23 1200 Phlebitis 0-->no symptoms 05/28/23 1200 Infiltration 0-->no symptoms 05/28/23 1200 HYDRATION: N/A ANTIEMETICS/PREMEDS, Tylenol 650 mg Claritin 10 mg PO Solumedrol 100 mg IVP See MAR Patient identification and orders checked against actual dose given at bedside by Jesús Garcia RN TREATMENT Rituxan 1000 mg IV Administration times: See MAR Second day dosing schedule used. Rate ml/hr Volume ml 50 25 100 50 150 75 200 To finish REACTIONS None. ASSESSMENT: Tolerated infusion well. PLAN Return to clinic in four months documented in this encounter Plan of Treatment Upcoming Encounters Date Type Department Care Team (Late st Contact Info) Description 04/28/2024 12:00 PM EDT [place] [address] documented as of this encounter Visit Diagnoses Diagnosis Rheumatoid arthritis, involving unspecified site, unspecified whether rheumatoid factor present documented in this encounter Administered Medications Inactive Administered Medications - up to 3 most recent administrations Medication Order MAR Action Action Date Dose Rate Site acetaminophen (Tylenol) tablet 650 mg 650 mg, Oral, ONCE, 1 dose, On Sat05/28/23 at 1200, Maximum dose of acetaminophen is 4,000 mg from all sources in 24 hours, Routine Given 05/28/2023 11:50 AM EDT 650 mg loratadine (Claritin) tablet 10 mg 10 mg, Oral, ONCE, 1 dose, On Sat05/28/23 at 1200, Routine Given 05/28/2023 11:50 AM EDT 10 mg methylPREDNISolone sod succ (pf) (SOLU-Medrol) (125 mg/2 mL) injection 100 mg 100 mg, Intravenous, ONCE, 1 dose, On Sat05/28/23 at 1200 Given 05/28/2023 11:57 AM EDT 100 mg riTUXimab (Rituxan) 1,000 mg in sodium chloride 0.9% 500 mL infusion 1,000 mg, Intravenous, ONCE, 1 dose, On Sat05/28/23 at 1245, Administer Per Protocol, RITUXAN is NON-PREFERRED brand. Please indicate why RITUXAN is specifically required (vs. preferred RUXIENCE brand): Other (please enter in comments), Is this product being used for treatment of malignant indication? No New Bag 05/28/2023 12:10 PM EDT 1,000 mg documented in this encounter Care Teams Emotional Disabilities Teacher Relationship Specialty Start Date End Date Arelis Michele MD [address] [place] [address] PCP - General Family Medicine 08/01/18 02/11/24 documented as of this encounter
--- OUTSIDE RECORDS SUMMARY | 2024-04-06 02:27 | XMS_ITS | Encounter Summary ---
[place] [address] Care Team Providers Care Tripe Washer Name Role Phone Arelis Michele MD Primary Care Provider [phone] Encounter Details Date Type Department Care Team (Late st Contact Info) Description 11/06/2022 [place] [address] Bernie Ott MA Social History [...] Telephone Encounter - Bernie Ott RMA - 11/06/2022 10:17 AM EST Called patient for pre-charting, no answer. YULISA GARCIA documented in this encounter Plan of Treatment Upcoming Encounters Date Type Department Care Team (Late st Contact Info) Description 04/28/2024 12:00 PM EDT [place] [address] documented as of this encounter Visit Diagnoses Not on filedocumented in this encounter Care Teams Tripe Washer Relationship Specialty Start Date End Date Arelis Michele MD [address] [place] [address] PCP - General Family Medicine 08/01/18 02/11/24 documented as of this encounter
--- OUTSIDE RECORDS SUMMARY | 2024-04-06 02:27 | XMS_ITS | Encounter Summary ---
Author Organization [facility] [place] [address] Care Team Providers Care Metal Casket Maker Name Role Phone Arelis Michele MD Primary Care Provider [phone] Reason for Visit * Reason Comments Follow-up Encounter Details Date Type Department Care Team (Late st Contact Info) Description 05/28/2023 11:00 AM EDT Office Visit [place] [address] Alice Carney, [employer] [facility] [address] [address] High risk medication use; Rheumatoid arthritis with positive rheumatoid factor, involving unspecified site Social History Tobacco Use Types Packs/Day Years Used Date Smoking Tobacco: Never Smokeless Tobacco: Never Tobacco Cessation:Counseling Given: Not Answered Alcohol Use Standard Drinks/Week Comments No 0 (1 standard drink = 0.6 oz pur e alcohol) Sex and Gender Information Value Date Recorded Sex Assigned at Not on file Gender Identity Not on file Sexual Orientation Not on file documented as of this encounter Last Filed Vital Signs Vital Sign Reading Time Taken Comments Blood Pressure 138/73 05/28/2023 10:50 AM EDT Pulse 67 05/28/2023 10:50 AM EDT Temperature 36.6 ??C (97.9 ??F) 05/28/2023 10:50 AM E DT Respiratory Rate 18 05/28/2023 10:50 AM EDT Oxygen Saturation 98% 05/28/2023 10:50 AM EDT Inhaled Oxygen Concentration - - Weight 93.9 kg (207 lb) 05/28/2023 10:50 AM EDT Height 180.3 cm (5' 11) 05/28/2023 10:50 AM EDT Body Mass Index 28.87 05/28/2023 10:50 AM EDT documented in this encounter Progress Notes * Angelika Alice E, [employer] - 05/28/2023 11:00 AM EDT Rheumatology Follow-up Visit ID: Wesly Ybarra is a 72 y.o.male presenting for ongoing evaluation and management of seropositive rheumatoid arthritis on Rituxan. I have been following his care since 02/14/2021. Last OV: 02/05/23 Rheumatology History: Seropositive Rheumatoid Arthritis: 05/2002 (approx) sudden onset fatigue and aches in hands but whole body affected. Body wide joint aches for several months but then sudden onset of fatigue and hands joint aches. 03/2009: RF 181 & CCP>30 Treatments tried and discontinued: See 02/05/23 OV for detailed list of multiple treatments. Currently treated with name brand Rituxan via [employer] 2021 with benefit to joints. Treatment considerations: See 02/05/23 OV for extensive review. Cannot take NSAIDS per cardiology. CAD and CMP: [facility] Cardiology OV notes from 09/27/2020 (Wesly Munoz MD) reviewed 02/28/2021. CAD: s/p CABG (Patient Denies!) and s/p mid LAD stent March 2019. Additional workup with CPET planned at [facility] for eval of ongoing SOB. No ischemia on recent stress test. CMP: Echo 03/08/2020 on file. Per cardio notes -- EF mildly reduced (most recent echo 40-45%). CMP seems a little out of proportion to degree of CAD he has. Cardiac MRI considered. R heart cath March 2019 showed normal filling pressures. ? SOB r/t ILD. Has seen pulm and likely multifactorial including COPD, R hemidiaphragm. Has had continued follow up with cardiology. Vinayak-diaphragm, ZEPEDA, wheezing: Comprehensive work-up [facility] pulmonology (last OV 08/2020) with no clear diagnosis. Responds to nebulizer treatment with unknown medication. Interval History: Current treatment for RA: Rituxan (name brand) 1000 mg Q4M per [employer] medication assistance program started 02/13/2022. Last infusion: 02/05/23 Next infusion: 05/28/23 (after this visit). Pre-meds: Tylenol 650 mg, loratadine 10 mg, SoluMedrol 100 mg IV. Generally feels pretty well and feels that he is in a good state to receive RTX after this visit. Slowing down a bit overall but still gets up to his camp regularly (though hasn't been able to fishin years because of difficulty with long walks). He forgot to get his labs done. Joints affected by RA: Hands: Mostly L MCP 2-3 -- stiff for 60+ minutes. Decreased dexterity. Symptoms without treatment: hands with AM curling/clenching and tightness for several hours. Lower back injury at work many years ago. Never had issues before that but felt better after the RTX and hasn't acted up since then. Rituxan infusion tolerated well (denies fluid overload, worsening dyspnea, LE edema) and he is pleased overall re RA treatment. He says it has lessened the pain in his hands. Still has some mild stiffness for 30-45 minutes in the morning that resolves with activity at baseline. He feels a bit more symptomatic starting about 2 weeks prior to infusion with symptoms are more prolonged as he approaches his next infusion (up to about an hour). Ongoing ZEPEDA followed by cardiology though I do not know the diagnosis. No fluid overload. Followed by ophthalmology at [facility] for what he describes is a black spot behind his right eye. It is currently being watched and if it enlarges there is potential concern for melanoma. After Mr. Ybarra's 01/2023 OV I reached out to his grants specialist (Qian Navarro MD, [facility])re Rituxan (documented in the visit notes). Followed by ENT regarding chronic sinus congestion and cough. No fevers, chills, purulent sputum ordischarge and he does not feel that he has an active infection. Review of Systems: General: Denies fevers, chills, night sweats, severe illness, recurrent infections, or recent hospitalizations. Normal appetite, stable weight. HEENT: Denies acute visual changes. Chronic sinus and eye issues as noted. Skin/nails: Per 06/2022 OV not discussed this visit: itchy rash in his groin. Cardiovascular: Denies chest pain, palpitations. + ZEPEDA with minimal activity -- ongoing. Followed by cardiology at [facility]. Pulmonary: Denies hemoptysis, purulent sputum. + intermittent cough ongoing with no clear dx. . + SOB at rest at times with + ZEPEDA. Unremarkable work-up [facility] pulmonology. Nebulizer (med ?) helps. Sometimes uses his albuterol inhaler. Gastrointestinal: Denies abdominal pain, nausea, vomiting, bowel changes, melena, primo blood in stool. Takes omeprazole for GERD x years. Genitourinary: Denies hematuria, voiding changes Musculoskeletal: See interval history. Osteoporosis followed by primary care with report of DEXA 2022. 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 Physical Examination: BP 138/73 Pulse 67 Temp 36.6 ??C (97.9 ??F) (Temporal) Resp 18 Ht 180.3 cm (5' 11) Wt 93.9 kg (207 lb) SpO2 98% BMI 28.87 kg/m?? General: Well developed, well nourished, alert and oriented male in no acute distress HEENT: No scleral injection, no icterus Neck: Supple, no lymphadenopathy Heart: Regular rate and rhythm, no murmur/rub/gallop Lungs: CTA b/l except with decreased BS on R (c/w hemidiaphragm hx). Neuro: Gait even and co-ordinated. Speech clearly articulated. No obvious deficits. Skin: no rheumatologic rashes Extremities: Hands: No synovitis but there is slight swelling and tenderness L index and middle MCP. Decreased claw bilaterally, normal fist. Mild + MCP compression tenderness on the L. Wrists: No synovitis, tenderness, swelling Elbows: no tenderness or swelling Knees: No tenderness or swelling Ankles: No tenderness or swelling. No edema. Feet: No MTP compression tenderness DATA: Recent Results (from the past 3360 hour(s)) Sedimentation rate Collection Time: 02/05/23 11:07 AM Result Value Ref Range Sed Rate 4 3 - 46 mm/hr CRP, acute inflammation Collection Time: 02/05/23 11:07 AM Result Value Ref Range CRP 6.5 (H) <=4.9 mg/L Comprehensive metabolic panel (non-fasting) Collection Time: 02/05/23 11:07 AM Result Value Ref Range Glucose Lvl 95 65 - 199 mg/dL BUN 16 10 - 20 mg/dL Creatinine 0.95 0.80 - 1.50 mg/dL Sodium 143 135 - 145 mmol/L Potassium 4.2 3.5 - 5.0 mmol/L Chloride 107 98 - 107 mmol/L CO2 29 22 - 31 mmol/L Anion Gap 7 5 - 15 mmol/L Calcium 9.3 8.5 - 10.5 mg/dL Total Protein 6.3 6.1 - 8.0 g/dL Albumin 4.0 3.2 - 5.2 g/dL AST 15 0 - 39 unit/L ALT 14 0 - 55 unit/L Alk Phos 92 40 - 130 unit/L Total Bilirubin 0.3 0.2 - 1.3 mg/dL Estimated GFR 84 >=60 mL/min/1.73 m?? Hemogram Collection Time: 02/05/23 11:07 AM Result Value Ref Range WBC 8.1 4.0 - 9.5 x10(3)/mcL RBC 5.38 4.58 - 5.54 x10(6)/mcL Hemoglobin 15.6 13.7 - 16.5 g/dL Hematocrit 49.4 (H) 40.5 - 48.5 % MCV 91.8 82.9 - 93.1 fL MCH 29.0 27.5 - 32.1 pg MCHC 31.6 (L) 32.0 - 35.7 g/dL Platelets 261 145 - 357 x10(3)/mcL RDWSD 43.9 36.0 - 45.0 fL RDWCV 13.0 11.4 - 13.8 % MPV 10.0 7.6 - 12.9 fL nRBC % Auto 0.0 % nRBC Abs Auto 0.000 0.000 - 0.000 x10(3)/mcL Differential, Automated Collection Time: 02/05/23 11:07 AM Result Value Ref Range Neutrophils % 59.5 % Neutr Abs (ANC) 4.81 1.70 - 6.10 x10(3)/mcL Lymphocytes % 27.9 % Lymphocytes Abs 2.3 0.9 - 3.2 x10(3)/mcL Monocytes % 8.3 % Monocyte Abs 0.7 0.3 - 0.9 x10(3)/mcL Eosinophils % 3.6 % Eosinophils Abs 0.3 0.0 - 0.4 x10(3)/mcL Basophils % 0.6 % Basophils Abs 0.0 0.0 - 0.1 x10(3)/mcL Immature Gran % 0.10 % Brianna Gran Abs 0.01 0.00 - 0.04 x10(3)/mcL 09/26/22 [facility]: Unremarkable CBC and CMP. CRP 0.53 (ULN 0.3). ESR 4. [facility] 05/22/2022: Normal CMP and CBC. Mildly elevated CRP at 0.98 (ULN 0.3) with normal ESR at 2. [facility] 06/07/2021: unremarkable CBC, CMP, ESR, CRP. Negative Hepatitis B/C and TB Quant Gold screening. [facility] 03/2021: unremarkable CBC, CMP ASSESSMENT/RECOMMENDATIONS: Seropositive rheumatoid arthritis: Good control since initiation of Rituxan 01/2022 ([facility] done at [facility]. He is tolerating infusions well without s/s fluid overload by his report. He would like to continue this treatment. Hold parameters again reviewed. He forgot to get his usual labs done at [facility] 2 weeks before his infusion and he will make a note to get this done next time. He knows to expect a letter from me re results and to contact me if he does not receive one. Osteoporosis with history of pathologic vertebral fracture: Followed by primary care. ZEPEDA: Unclear etiology after extensive work-up by pulmonology and cardiology. No evidence of fluid overload so from that perspective proceeding with infusion today should be fine. Plan: Continue Rituxan Q4M at [facility]. Labs at [facility] 2 weeks before. If he cannot accomplish this then he will get labs done immediately before seeing me for his appointment which will be scheduled the same day as his Rituxan infusion (I will see him prior to his infusion). He is to contact me with any health changes that may affect his treatment such as cardiomyopathy, infection, serious illness. Minutes spent today associated with the office visit including during the visit, chart review, and documentation: 40 Alice Carney APRN CC: Arelis Michele MD documented in this encounter Plan of Treatment Upcoming Encounters Date Type Department Care Team (Late st Contact Info) Description 04/28/2024 12:00 PM EDT Appointment [place] [address] documented as of this encounter Visit Diagnoses Diagnosis High risk medication use Encounter for long-term (current) use of other medications Rheumatoid arthritis with positive rheumatoid factor, involving unspecified site documented in this encounter Care Teams Metal Casket Maker Relationship Specialty Start Date End Date Arelis Michele MD [address] [place] [address] PCP - General Family Medicine 08/01/18 02/11/24 documented as of this encounter
--- OUTSIDE RECORDS SUMMARY | 2024-04-06 02:27 | XMS_ITS | Encounter Summary ---
Author Organization Formerly [facility] [place] [address] Care Team Providers Care Chief Service Dispatcher Name Role Phone Arelis Michele MD Primary Care Provider [phone] Encounter Details Date Type Department Care Team (Late st Contact Info) Description 09/17/2023 10:00 AM EST [place] [address] Alice Carney GAS METER INSTALLER [facility] [place] [address] High risk medication use; Rheumatoid arthritis with [...] Sign Reading Time Taken Comments Blood Pressure 134/112 09/17/2023 9:43 AM EST Pulse 68 09/17/2023 9:43 AM EST Temperature 36.3 ??C (97.4 ??F) 09/17/2023 9:43 AM ES T Respiratory Rate 24 09/17/2023 9:43 AM EST Oxygen Saturation 97% 09/17/2023 9:43 AM EST Inhaled Oxygen Concentration - - Weight 99.3 kg (219 lb) 09/17/2023 9:43 AM EST w /shoes Height - - Body Mass Index 30.54 05/28/2023 10:50 AM EDT documented in this encounter Progress Notes * Alice Carney, GAS METER INSTALLER - 09/17/2023 10:00 AM EST Rheumatology Follow-up Visit ID: Wesly Ybarra is a 72 y.o.male presenting for ongoing evaluation and management of seropositive rheumatoid arthritis on Rituxan. I have been following his care since 02/14/2021. Last OV: 05/28/23 Rheumatology History: Seropositive Rheumatoid Arthritis: 05/2002 (approx) sudden onset fatigue and aches in hands but whole body affected. Body wide joint aches for several months but then sudden onset of fatigue and hands joint aches. 03/2009: RF 181 & CCP>30 Treatments tried and discontinued: See 02/05/23 OV for detailed list of multiple treatments. Currently treated with name brand Rituxan via [employer] 2021 with benefit to joints. Treatment considerations: See 02/05/23 OV for extensive review. Cannot take NSAIDS per cardiology. CAD and CMP: [facility] Cardiology OV notes from 09/27/2020 (Wesly Munoz MD) reviewed 02/28/2021. CAD: s/p CABG (Patient Denies!) and s/p mid LAD stent March 2019. Additional workup with CPET planned at [facility] for eval of ongoing SOB. No ischemia [...] with cardiology. Vinayak-diaphragm, ZEPEDA, wheezing: Comprehensive work-up [facility] pulmonology (last OV 08/2020) with no clear diagnosis. Responds to nebulizer treatment with unknown medication. Multiple specialists: Pulmonology @ [facility] Geneva Cruz MD and DONAVAN Garibay. PFTs planned. Cardiology @ [facility] Franck Edwards MD [facility] for eye issue concerning for possible melanoma (history melanoma skin hx). Qian Navarro MD, [facility]. Dermatology at [facility] hx melanoma. ENT at [facility]. Interval History: Current treatment for RA: Rituxan (name brand) 1000 mg Q16W per [employer] medication assistance program started 02/13/2022. Last infusion: 05/2623 Next infusion: 09/17/23 (after this visit). Pre-meds: Tylenol 650 mg, loratadine 10 mg, SoluMedrol 100 mg IV. Feeling pretty well now after recent 08/05/23 COVID infection.sick for a month. Feeling well for a couple of weeks now. Didn't have pneumonia. Not treated due to timeframe between symptom onset and when he saw primary care. Appetite is back to normal and he is regaining the weight he lost. Baseline cough with some hacking in the AM. Medium green sputum presumably from his sinuses which he has had for years. Sees [facility] ENT since 06/2023. Very dry in his nose. Next 10/17/23. Generally feels pretty well and feels that he is in a good state to receive RTX after this visit. Last visit noted he is slowing down a bit overall but still gets up to his camp regularly (though hasn't been able to fish in years because of difficulty with long walks). Joints affected by RA: Hands: Mostly L [...] next infusion (up to about an hour). Followed by ENT regarding chronic sinus congestion [...] activity -- ongoing. Followed by cardiology at [facility]. Pulmonary: Denies hemoptysis, purulent sputum. + intermittent cough ongoing with no clear dx. . + SOB at rest at times with + ZEPEDA. Unremarkable work-up [facility] pulmonology. Nebulizer (med ?) helps. Sometimes uses his albuterol inhaler. Now sees pulmonology at [facility]. Gastrointestinal: Denies abdominal pain, nausea, vomiting, bowel [...] resection Osteoporosis with pathologic vertebral fracture per [facility] notes but not on file at [facility]. Physical Examination: BP (!) 134/112 (BP Location (NBP): Left arm, Patient Position: Sitting, BP Cuff Sizes: Large Adult (32-43 cm)) Pulse 68 Temp 36.3 ??C (97.4 ??F) (Temporal) Resp 24 Wt 99.3 kg (219 lb) Comment: w/shoes SpO2 97% BMI 30.54 kg/m?? General: Well developed, well nourished, alert [...] edema. Feet: No MTP compression tenderness DATA: 09/10/23 [facility]: unremarkable cbc, cmp, crp, esr. 06/07/2021 [facility]: Negative Hepatitis B/C and TB Quant Gold screening. ASSESSMENT/RECOMMENDATIONS: Seropositive rheumatoid arthritis: Good control since [facility]20[facility]. He is tolerating infusions well without s/s fluid overload by his report. He would like to continue this treatment. Hold parameters again reviewed. He will continue to get routine labs checked at [facility] 1-2 weeks before his infusion and see me immediately before his infusion. He knows to expect a letter from me re results and to contact me if he does not receive one. Osteoporosis with history of pathologic vertebral fracture: Followed by primary care. ZEPEDA: Unclear etiology after extensive work-up by pulmonology and cardiology. No evidence of fluid overload so from that perspective proceeding with infusion today should be fine. Plan: Continue Rituxan Q16W at [facility]. Labs at [facility] 1-2 weeks before. If he cannot accomplish this then he will get labs done immediately before seeing me for his appointment which will be scheduled the same day as his Rituxan infusion (Iwill see him prior to his infusion). He is to contact me with any health changes that may affect his treatment such as cardiomyopathy, infection, serious illness. He is reminded to discuss his use of Rituxan with all health care providers. Minutes spent today associated with the office visit including during the visit, chart review, discussion with Timoteo Layton MD (re recommendation to continue RTX despite current concern for melanomain his eye) and documentation: 45 Alice Carney APRN CC: Arelis Michele MD documented in this encounter Plan of Treatment Upcoming Encounters Date Type Department Care Team (Late st Contact Info) Description 04/28/2024 12:00 PM EDT [place] [address] documented as of this encounter Visit Diagnoses Diagnosis High risk medication use Encounter for long-term (current) use of other medications Rheumatoid arthritis with positive rheumatoid factor, involving unspecified site documented in this encounter Care Teams Chief Service Dispatcher Relationship Specialty Start Date End Date Arelis Michele MD [address] [place] [address] PCP - General Family Medicine 08/01/18 02/11/24 documented as of this encounter
--- OUTSIDE RECORDS SUMMARY | 2024-04-06 02:27 | XMS_ITS | Encounter Summary ---
[place] [address] Care Team Providers Care Carpenter Wooden Tank Erecting Name Role Phone Arelis Michele MD Primary Care Provider [phone] Encounter Details Date Type Department Care Team (Late st Contact Info) Description 07/12/2022 Telephone [place] [phone] Stefany Rosales Social History Tobacco Use Types [...] Telephone Encounter - Stefany Rosales - 07/12/2022 12:34 PM EST LM for pts sister asking that pt contact us or sister contact us w/pts phone number to set up an infusion. Brothers phone was removed as it was a fax and had been tried by Rheum RN as well. documented in this encounter Plan of Treatment Upcoming Encounters Date Type Department Care Team (Late st Contact Info) Description 04/28/2024 12:00 PM EDT Appointment [place] [address] documented as of this encounter Visit Diagnoses Not on filedocumented in this encounter Care Teams Carpenter Wooden Tank Erecting Relationship Specialty Start Date End Date Arelis Michele MD [address] [place] [address] PCP - General Family Medicine 08/01/18 02/11/24 documented as of this encounter
--- OUTSIDE RECORDS SUMMARY | 2024-04-06 02:27 | XMS_ITS | Encounter Summary ---
Author Organization [facility] [place] [address] Care Team Providers Care Director Of Database Marketing Name Role Phone Arelis Michele MD Primary Care Provider [phone] Encounter Details Date Type Department Care Team (Late st Contact Info) Description 10/01/2022 Hospital Encounter [place] [phone] Solitario Moody MD [facility] [place] [place] [address] Social History Tobacco Use Types Packs/Day Years [...] 12:00 PM EDT Appointment [place] [phone] documented as of this encounter Visit Diagnoses Not on filedocumented in this encounter Care Teams Director Of Database Marketing Relationship Specialty Start Date End Date Arelis Michele MD [address] [place], [place] [address] PCP - General Family Medicine 02/12/24 documented as of this encounter
--- OUTSIDE RECORDS SUMMARY | 2024-04-06 02:27 | XMS_ITS | Encounter Summary ---
[place] [address] Care Team Providers Care Peanut Butter Maker Name Role Phone Arelis Michele MD Primary Care Provider [phone] Encounter Details Date Type Department Care Team (Latest Contact Info) Description 05/28/2023 Travel Social History Tobacco Use Types Packs/Day [...] 12:00 PM EDT Appointment [place] [address] documented as of this encounter Visit Diagnoses Not on filedocumented in this encounter Care Teams Peanut Butter Maker Relationship Specialty Start Date End Date Arelis Michele MD [address] [place] [address] PCP - General Family Medicine 08/01/18 02/11/24 documented as of this encounter
--- OUTSIDE RECORDS SUMMARY | 2024-04-06 02:27 | XMS_ITS | Encounter Summary ---
Author Organization [facility] 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 Role Phone Arelis Michele MD Primary Care Provider [phone] Reason for Visit * Reason Comments Follow-up Encounter Details Date Type Department Care Team (Late st Contact Info) Description 11/07/2022 10:00 AM EST Office [place] [address] Alice Carney, BRANCH OPERATION EVALUATION MANAGER [facility] [place] [address] High risk medication use; Rheumatoid arthritis with positive rheumatoid factor, involving unspecified site; ZEPEDA (dyspnea on exertion) Social History Tobacco Use Types Packs/Day Years [...] Sign Reading Time Taken Comments Blood Pressure 129/69 11/07/2022 9:54 AM EST Pulse 67 11/07/2022 9:54 AM EST Temperature 36.4 ??C (97.5 ??F) 11/07/2022 9:54 AM ES T Respiratory Rate 18 11/07/2022 9:54 AM EST Oxygen Saturation 97% 11/07/2022 9:54 AM EST Inhaled Oxygen Concentration - - Weight 97.1 kg (214 lb) 11/07/2022 9:54 AM EST r eported Height 180.3 cm (5' 11) 11/07/2022 9:54 AM EST Body Mass Index 29.85 11/07/2022 9:54 AM EST documented in this encounter Patient Instructions * Patient Instructions* Alice Carney APRN - 11/07/2022 10:00 AM EST Re your cough and shortness of breath: I can hear the wheezing today. Use the nebulizer when you get home. I wonder if this could be related to GERD (reflux) since the wheezing gets worse when you lay down. Perhaps it would be helpful to see an [id number] (ENT) specialist for this and also foryour ongoing sinus issues. documented in this encounter Progress Notes * Alice Carney APRN - 11/07/2022 10:00 AM EST Rheumatology Follow-up Visit ID: Wesly Ybarra is a 72 y.o.male presenting for ongoing evaluation and management of seropositive rheumatoid arthritis. I have been following his care since 02/14/2021. Last OV: 06/05/2022 Rheumatology History: Seropositive Rheumatoid Arthritis: 05/2002 (approx) [...] medicare didn't cover all of the cost (80/20) but he would have liked to stay on it. His breathing has been bad for several years and he feels that the RTX may havehelped with his breathing -- said he had no issues with the infusions including no worsening of SOBor fluid overload. Marked improvement with resumption of Rituxan (received Ruxience) 03/2021 at [facility]. He could not continue with RTX due to [id number] cost then was able to resume name brand Rituxan via [employer] 2021 with benefit to joints. ?? Orencia tried [id number] and stopped due to lack of efficacy [...] 1000 mg IV Q16W infusion resumed at [facility] -- next infusion cancelled due to unaffordable way-gm-cweakd cost. ?? Plan was to start Xeljanz 07/2021 given limited options available to patient for treatment givenmedical history and co-morbidities after communication via [facility] with Wesly Munoz MD, in cardiology. He never started it due to concerns about black box warnings. ?? Started leflunomide 10 mg daily 10/2021 while investigating [employer] Rituxan medication assistance program. No improvement with [...] take NSAIDS per cardiology. CAD and CMP: [facility] Cardiology OV notes from 09/27/2020 (Wesly Munoz MD) reviewed 02/28/2021. ?? CAD: s/p CABG (Patient Denies!) and s/p mid LAD stent March 2019. Additional workup with CPET planned at [facility] for eval of ongoing SOB (Patient says [...] and likely multifactorial including COPD, R hemidiaphragm. Vinayak-diaphragm, ZEPEDA, wheezing: Comprehensive work-up [facility] pulmonology (last OV 08/2020) with no clear diagnosis. Responds to nebulizer treatment with unknown medication. Interval History: Current treatment for RA: Rituxan (name brand) 1000 mg Q4M per [employer] medication assistance program started 02/13/2022. Last infusion: 10/09/22 Next infusion: 02/05/23 Pre-meds: Tylenol 650 mg, loratadine 10 mg, SoluMedrol 100 mg IV. Rituxan infusion tolerated well (denies fluid overload, worsening dyspnea, LE edema) and he is pleased overall re RA treatment. He says it has lessened the pain in his hands. Still has some mild stiffness for < an hour in the morning that resolves with activity. Generally feels pretty well. Ongoing ZEPEDA, cough and wheezing worse at night. Nebulizer (medication is unknown to me) is helpful uses about TID. See ROS. Per 12/2021 OV: [employer] Ritux[employer] medication assistance program was recently approved [...] persistent dyspnea which is ongoing and his product development scientist at [facility] ordered a repeat stress test which he [...] is recovered well. 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 Note that on 03/21/2021 [facility] Rheumatology nurse confirmed with ASHLEY Wise, that [facility] infusion labthat per their protocol, and in [...] stable weight. HEENT: Denies acute visual changes. Sinus issues improved since 06/2022 OV. Skin/nails: Per 06/2022 OV not discussed this visit: itchy rash in his groin. Cardiovascular: Denies chest pain, palpitations. + ZEPEDA with minimal activity -- ongoing. Followed by cardiology at [facility]. Pulmonary: Denies hemoptysis. + SOB at rest at times with + ZEPEDA. Unremarkable work-up [facility] pulmonology. Nebulizer (med ?) helps. Sometimes uses his albuterol inhaler. See Interval [...] resection Osteoporosis with pathologic vertebral fracture per [facility] notes but not on file at [facility]. Physical Examination: BP 129/69 Pulse 67 Temp 36.4 ??C (97.5 ??F) (Temporal) Resp 18 Ht 180.3 cm (5' 11) Wt 97.1 kg (214 lb) Comment: reported SpO2 97% BMI 29.85 kg/m?? General: Well developed, well nourished, alert and oriented male in no acute distress HEENT: No scleral injection, no icterus Neck: Supple, no lymphadenopathy Heart: Regular rate and rhythm, no murmur/rub/gallop Lungs: CTA b/l except with decreased BS on R (c/w hemidiaphragm hx) and diffuse expiratory wheezingdistally on L posteriorly. Neuro: Gait even and co-ordinated. Speech clearly articulated. No obvious deficits. Skin: no rheumatologic rashes Extremities: Hands: No synovitis, tenderness, swelling; full fist and claw; no MCP compression tenderness. Per 10/2021 OV: L 2nd and 3rd mcp synovitis, none on the left, scattered mcp pip ttp; + L MCP compression tenderness Wrists: No synovitis, tenderness, swelling Elbows: no tenderness or swelling Knees: No tenderness or swelling Ankles: No tenderness or swelling Feet: No MTP compression tenderness DATA: Labs: 09/26/22 NV: Unremarkable CBC and CMP. CRP 0.53 (ULN 0.3). ESR 4. NV 05/22/2022: Normal CMP and CBC. Mildly elevated CRP at 0.98 (ULN 0.3) with normal ESR at 2. NV 06/07/2021: unremarkable CBC, CMP, ESR, CRP. Negative Hepatitis B/C and TB Quant Gold screening. NV 03/2021: unremarkable CBC, CMP ASSESSMENT/RECOMMENDATIONS: Seropositive rheumatoid arthritis: Good control since initiation of Rituxan 01/2022 (1000 mg Q4M [employer]) done at [facility]. He is tolerating infusions well without s/s fluid overload by his report. He would like to continue this treatment. Hold parameters reviewed. He gets labs done at [facility] 2 weeks before his infusion and knows to expect a letter from me re results and to contact me if he does not receive one. Osteoporosis with history of pathologic vertebral fracture: Per 10/2021 OV not discussed today: DEXAordered at 02/28/2021 office visit to be done at [facility] and not yet done. Continue with vit d supplementation, avoiding calcium supplementation due to kidney stones. Continue with weightbearing activityas tolerated. I recommend primary care follow up at this point. ZEPEDA, wheezing: See patient instructions. Declines need for nebulizer treatment in the office prior to drive home today. Patient Instructions Re your cough and shortness of breath: I can hear the wheezing today. Use the nebulizer when you get home. I wonder if this could be related to GERD (reflux) since the wheezing gets worse when you lay down. Perhaps it would be helpful to see an [id number]-[id number] (ENT) specialist for this and also foryour ongoing sinus issues. Follow-up 02/05/23 with appointment prior to Rituxan infusion. Minutes spent today associated with the office visit including during the visit, chart review, and documentation: 45 Alice Carney APRN CC: Arelis Michele MD documented in this encounter Plan of Treatment Upcoming Encounters Date Type Department Care Team (Late st Contact Info) Description 04/28/2024 12:00 PM EDT Appointment [place] [address] documented as of this encounter Visit Diagnoses Diagnosis High risk medication use Encounter for long-term (current) use of other medications Rheumatoid arthritis with positive rheumatoid factor, involving unspecified site ZEPEDA (dyspnea on exertion) Other dyspnea and respiratory abnormality documented in this encounter Care Teams Bricklayer Sewer Relationship Specialty Start Date End Date Arelis Michele MD [address] [place] [address] PCP - General Family Medicine 08/01/18 02/11/24 documented as of this encounter
--- OUTSIDE RECORDS SUMMARY | 2024-04-06 02:27 | XMS_ITS | Encounter Summary ---
Author Organization [facility] [place] [address] Care Team Providers Care Vice President Network Name Role Phone Arelis Michele MD Primary Care Provider [phone] Encounter Details Date Type Department Care Team (Late st Contact Info) Description 02/05/2023 10:00 AM EDT Office [place] [address] Alice Carney DIGITAL PRODUCT MANAGER [facility] [place] [address] [address] High risk medication use; Rheumatoid arthritis with [...] Sign Reading Time Taken Comments Blood Pressure 144/79 02/05/2023 10:12 AM EDT Pulse 85 02/05/2023 10:12 AM EDT Temperature 36.8 ??C (98.2 ??F) 02/05/2023 10:12 AM E DT Respiratory Rate 20 02/05/2023 10:12 AM EDT Oxygen Saturation 96% 02/05/2023 10:12 AM EDT Inhaled Oxygen Concentration - - Weight 99.3 kg (219 lb) 02/05/2023 10:12 AM EDT with shoes Height - - Body Mass Index 30.54 11/07/2022 9:54 AM EST documented in this encounter Progress Notes * Deuceosmar Alice E, ITA - 02/05/2023 10:00 AM EDT Rheumatology Follow-up Visit ID: Wesly Ybarra is a 72 y.o.male presenting for ongoing evaluation and management of seropositive rheumatoid arthritis. I have been following his care since 02/14/2021. Last OV: 11/07/22 Rheumatology History: Seropositive Rheumatoid Arthritis: 05/2002 (approx) sudden onset fatigue and aches in hands but whole body affected. Body wide joint aches for several months but then sudden onset of fatigue and hands joint aches. 03/2009: RF 181 & CCP>30 Treatments tried and discontinued: Enbrel helped the most -- needed twice per week and then had recurrent infections. Rituximab for several years but medicare didn't cover all of the cost () but he would have liked to stay on it. His breathing has been bad for several years and he feels that the RTX may have helped with his breathing -- said he had no issues with the infusions including no worsening of SOB orfluid overload. Marked improvement with resumption of Rituxan (received Ruxience) 03/2021 at [facility]. He could not continue with RTX due to [id number] cost then was able to resume name brand Rituxan via [employer] 2021 with benefit to joints. Orencia tried [id number] and stopped due to lack of efficacy and dyspnea. SSZ started 12/2020 and tried for about 2.5-3 weeks but stopped due to nausea, diarrhea, rash, wheezing worsened. 02/28/2021: Prednisone 10 mg daily 3 week taper started 02/15/2021 with about 75% improvement in AM hand clenching and takes about 30 minutes to resolve. This was a huge improvement. 03/21/2021 Ruxience 1000 mg IV Q16W infusion resumed at [facility] -- next infusion cancelled due to unaffordable hfc-[id number] cost. Plan was to start Xeljanz 07/2021 given limited options available to patient for treatment given medical history and co-morbidities after communication via ED with Wesly Munoz MD, in cardiology. He never started it due to concerns about black box warnings. Leflunomide 10 mg daily started 10/2021 while investigating [employer] medication assistance program. No improvement with leflunomide after about 10 weeks of treatment. He did not increase to 20 mg as planned due to persistent sour stomach (resolved when discontinued). Treatment considerations: 02/14/2021 Denied hx blood clots. + Hx diverticulitis with 18 bowel resected. + CMP. SOB/ZEPEDA -- multifactorial as noted elsewhere. TNFi not preferred due to cardiomyopathy with reduced EF and ongoing dyspnea Actemra contrainidicated due history of diverticulitis with bowel resection Anakinra not preferred due to low liklihood that it would be effective. RITA inhibitor (Xeljanz) approved by insurance but he understandably does not want to take it to dueCV risk since he has CAD and cardiomyopathy (followed by cardiology and managed with a atorvastatin, metoprolol, aspirin, and isosorbide). Methotrexate prescribed 08/2021 but stopped after 1 dose due to COVID infection and he is concernedabout taking it as he attributes his dyspnea to this medication (etiology of dyspnea is unclear). Cannot take NSAIDS per cardiology. CAD and CMP: [facility] Cardiology OV notes from 09/27/2020 (Wesly Munoz MD) reviewed 02/28/2021. CAD: s/p CABG (Patient Denies!) and s/p mid LAD stent March 2019. Additional workup with CPET planned at [facility] for eval of ongoing SOB (Patient says not done). No ischemia on recent stress test. CMP: [...] with cardiology. Vinayak-diaphragm, ZEPEDA, wheezing: Comprehensive work-up [facility] pulmonology (last OV 08/2020) with no clear diagnosis. Responds to nebulizer treatment with unknown medication. Interval History: Current treatment for RA: Rituxan (name brand) 1000 mg Q4M per [employer] medication assistance program started 02/13/2022. Last infusion: 10/09/22 Next infusion: 02/05/23 (after this visit). Pre-meds: Tylenol 650 mg, loratadine 10 mg, SoluMedrol 100 mg IV. Rituxan infusion tolerated well (denies fluid overload, worsening dyspnea, LE edema) and he is pleased overall re RA treatment. He says it has lessened the pain in his hands. Still has some mild stiffness for 30-45 minutes in the morning that resolves with activity. Symptoms are more prolonged as he approaches his next infusion (up to about an hour). Generally feels pretty well. Ongoing ZEPEDA says he recently had a stress test with cardiology but he does not know the results. Followed by ophthalmology at [facility] for what he describes is a black spot behind his right eye. It is currently being watched and if it enlarges there is potential concern for melanoma. He says his human resources benefits coordinator is aware that he is on Rituxan but he will be sure to mention it at his next visit. He has not followed up with ENT regarding his sinuses and he continues to have intermittent green discharge. No fevers, chills, and he does not feel that he has an active infection. His back continues to bother him since a remote injury. See ROS. Per 12/2021 OV: [employer] Rituxan medication assistance program was recently approved [...] persistent dyspnea which is ongoing and his meat boner and slicer at [facility] ordered a repeat stress test which [...] is recovered well. He met his new meat boner and slicer at [facility] 09/2021 and he is pleased with her [...] I discussed this case briefly with his forge utility worker (though he did not review prior notes [...] with fluid overload. Note that on 03/21/2021 [facility] Rheumatology nurse confirmed with ASHLEY Wise, that [facility] infusion labthat per their protocol, and in [...] changes. Sinus issues improved since 06/2022 OV. See interval history regarding sinuses and eye issue. Skin/nails: Per 06/2022 OV not discussed this visit: itchy rash in his groin. Cardiovascular: Denies chest pain, palpitations. + ZEPEDA with minimal activity -- ongoing. Followed by cardiology at [facility]. Pulmonary: Denies hemoptysis. + SOB at rest at times with + ZEPEDA. Unremarkable work-up [facility] pulmonology. Nebulizer (med ?) helps. Sometimes uses his albuterol inhaler. See Interval History Gastrointestinal: Denies abdominal pain, nausea, vomiting, bowel changes, melena, primo blood in stool. Takes omeprazole for GERD x years. Genitourinary: Denies hematuria, voiding changes Musculoskeletal: See interval history. Osteoporosis followed by primary care with report of DEXA 2022.. 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 Physical Examination: BP 144/79 (BP Location (NBP): Left arm, Patient Position: Sitting, BP Cuff Sizes: Adult (25-34 cm)) Pulse 85 Temp 36.8 ??C (98.2 ??F) (Temporal) Resp 20 Wt 99.3 kg (219 lb) Comment: with shoes SpO2 96% BMI 30.54 kg/m?? General: Well developed, well [...] fist and claw; no MCP compression tenderness. Wrists: No synovitis, tenderness, swelling Elbows: no tenderness or swelling Knees: No tenderness or swelling Ankles: No tenderness or swelling. No edema. Feet: No MTP compression tenderness DATA: Recent Results (from the past 168 hour(s)) Sedimentation rate Collection Time: 02/05/23 11:07 [...] Abs 0.01 0.00 - 0.04 x10(3)/mcL 09/26/22 [facility]: Unremarkable CBC and CMP. CRP 0.53 (ULN 0.3). ESR 4. [facility] 05/22/2022: Normal CMP and CBC. Mildly elevated CRP at 0.98 (ULN 0.3) with normal ESR at 2. [facility] 06/07/2021: unremarkable CBC, CMP, ESR, CRP. Negative Hepatitis B/C and TB Quant Gold screening. [facility] 03/2021: unremarkable CBC, CMP ASSESSMENT/RECOMMENDATIONS: Seropositive rheumatoid arthritis: Good control since initiation of Rituxan 01/2022 (1000 mg Q4M [employer]) done at [facility]. He is tolerating infusions well without s/s fluid overload by his report. He would like to continue this treatment. Hold parameters reviewed. [facility] and knows to expect a letter from me re results and to contact me if he does not receive one. In this instance, he was unable to get his labs done and we will do those immediately after this appointment and before his infusion.. Osteoporosis with history of pathologic vertebral fracture: Followed by primary care. ZEPEDA: Unclear etiology after extensive work-up by pulmonology and cardiology. Patient reports havinga recent stress test (sounds like it was nuclear treadmill test) the result does not know results. He will reach out to cardiology. Plan: Continue Rituxan Q4M at [facility]. Labs at [facility] 2 weeks before. If he cannot accomplish [...] Alice Carney APRN CC: Arelis Michele MD CC: Qian Navarro MD , [facility] -- Dr. Navarro, I want to make sure that you know that this patient receives Rituxan infusions for RA. At his visit today he said there is a question of melanoma so I wanted you to be aware of his treatment here. Please reach out to me if you have questions or concerns. I spoke with Samantha in your office and she will give you my cell number if you want to reach me. documented in this encounter Plan of Treatment Upcoming Encounters Date Type Department Care Team (Late st Contact Info) Description 04/28/2024 12:00 PM EDT Appointment [facility] [place] [address] documented as of this encounter Procedures Procedure Name Priority Date/Time Associated Diagnosis Comments CRP, ACUTE INFLAMMATION Routine 02/05/2023 11:07 AM EDT High risk medication use Rheumatoid arthritis with positive rheumatoid factor, involving unspecified site HEMOGRAM Routine 02/05/2023 11:07 AM EDT High risk medication use Rheumatoid arthritis with positive rheumatoid factor, involving unspecified site DIFFERENTIAL, AUTOMATED Routine 02/05/2023 11:07 AM EDT High risk medication use Rheumatoid arthritis with positive rheumatoid factor, involving unspecified site SEDIMENTATION RATE Routine 02/05/2023 11 :07 AM EDT High risk medication use Rheumatoid arthritis with positive rheumatoid factor, involving unspecified site CBC (WITH DIFF) Routine 02/05/2023 11:07 AM EDT High risk medication use Rheumatoid arthritis with positive rheumatoid factor, involving unspecified site COMPREHENSIVE METABOLIC PANEL Routine 02/05/2023 11:07 AM EDT High risk medication use Rheumatoid arthritis with positive rheumatoid factor, involving unspecified site documented in this encounter Results * Differential, Automated (02/05/2023 11:07 AM EDT) Neutrophil % 59.5 % [facility] Neutrophil Absolute 4.81 1.70 - 6.10 x10(3)/[facility] Lymph % 27.9 % [facility] Lymphocytes Abs 2.3 0.9 - 3.2 x10(3)/[facility] Monocyte % 8.3 % [facility] Monocyte Abs 0.7 0.3 - 0.9 x10(3)/[facility] Eos % 3.6 % [facility] Eosinophils Abs 0.3 0.0 - 0.4 x10(3)/[facility] Basophil % 0.6 % [facility] Baso Absolute 0.0 0.0 - 0.1 x10(3)/[facility] Immature Gran % 0.10 % [facility] Comment: Immature granulocytes(IG's)percentage and absolute count will include metamyelocytes, myelocytes, and promyelocytes. Blood smears from CBCs yielding IG's will be scanned manually for concordance. If this scan disagrees with the automated IG or if promyelocytes are noted, a manual differential will be performed. Immature Gran Absolute 0.01 0.00 - 0.04 x10(3)/[facility] Blood 02/05/2023 11:0 7 AM EDT 02/05/2023 11:45 AM EDT Narrative Resulting Agency Comment Spec In Lab Alice Carney DIGITAL PRODUCT MANAGER HEMATOLOGY ORDERABLE S Performing Organization Address City/State/[facility] Co de Phone Number [facility] [place] [address] * (ABNORMAL) Hemogram (02/05/2023 11:07 AM EDT) White Blood Cell 8.1 4.0 - 9.5 x10(3)/mc L [facility] Red Blood Cell 5.38 4.58 - 5.54 x10(6)/mc L [facility] Hemoglobin 15.6 13.7 - 16.5 g/dL [facility] Hematocrit 49.4(H) 40.5 - 48.5 % [facility] Mean Cell Volume 91.8 82.9 - 93.1 fL [facility] Mean Cell Hemoglobin 29.0 27.5 - 32.1 pg [facility] Mean Cell Hemoglobin Concentration 31.6(L) 32.0 - 35.7 g/dL [facility] Platelet 261 145 - 357 x10(3)/mc L [facility] RDW Standard Deviation 43.9 36.0 - 45.0 fL [facility] RDW coefficient of variation 13.0 11.4 - 13.8 % [facility] Mean Platelet Volume 10.0 7.6 - 12.9 fL [facility] NRBC% auto 0.0 % [facility] NRBC Absolute 0.000 0.000 - 0.000 x10(3)/mc L [facility] Blood 02/05/2023 11:0 7 AM EDT 02/05/2023 11:45 AM EDT Narrative Resulting Agency Comment Spec In Lab Alice Carney ITA HEMATOLOGY ORDERABLE S [facility] [place] [address] * Comprehensive metabolic panel (non-fasting) (02/05/2023 11:07 AM EDT) Glucose 95 65 - 199 mg/dL [facility] Comment:Diabetes: >=200 mg/d L plus symptoms Blood Urea Nitrogen 16 10 - 20 mg/dL [facility] Creatinine 0.95 0.80 - 1.50 mg/dL [facility] Sodium 143 135 - 145 mmol/L [facility] Potassium 4.2 3.5 - 5.0 mmol/L [facility] Comment: Please note: ??Patients with WBC >100,000 may have falsely elevated Potassium levels. ??For accurate Potassium quantification in these patients send serum separator tube (gold top) for subsequent determinations. ??Contact the Clinical Chemistry Laboratory if there are any questions. Chloride 107 98 - 107 mmol/L [facility] Carbon Dioxide 29 22 - 31 mmol/L [facility] Anion Gap 7 5 - 15 mmol/L [facility] Calcium 9.3 8.5 - 10.5 mg/dL [facility] Protein, Total 6.3 6.1 - 8.0 g/dL [facility] Albumin 4.0 3.2 - 5.2 g/dL [facility] Aspartate Aminotransferase 15 0 - 39 unit/L [facility] Alanine Aminotransferase 14 0 - 55 unit/L [facility] Alkaline Phosphatase 92 40 - 130 unit/L [facility] Bilirubin, Total 0.3 0.2 - 1.3 mg/dL [facility] Est Glomerular Filtration Rate 84 >=60 mL/min/1. 73 m?? [facility] Comment: This patient's estimated GFR was calculated using the 2020 CKD-EPI equation. The estimated GFR can vary from the measured GFR by up to 30% in the absence of rapidly changing kidney function. Assessment of the estimated GFR is not appropriate when creatinine concentrations are rapidly changing. For clinical situations in which a more precise estimate of GFR is necessary, consider alternative methods of GFR estimation such as a 24-hour urine creatinine clearance. Assignment of CKD stage 1-5 for patients with an eGFR near the transition point between stages may be based on clinical assessment of muscle mass and symptoms in addition to eGFR. Blood 02/05/2023 11:0 7 AM EDT 02/05/2023 11:45 AM EDT Narrative Resulting Agency Comment Spec In Lab Alice Carney APRN CHEMISTRY ORDERABLES Performing Organization Address [facility] Co de Phone Number [facility] [place] [address] * (ABNORMAL) CRP, acute inflammation (02/05/2023 11:07 AM EDT) C-Reactive Protein 6.5(H) <=4.9 mg/L [facility] Blood 02/05/2023 11:0 7 AM EDT 02/05/2023 11:45 AM EDT Narrative Resulting Agency Comment Spec In Lab Alice Carney APRN CHEMISTRY ORDERABLES Performing Organization Address [facility] Co de Phone Number [facility] [place] [address] * Sedimentation rate (02/05/2023 11:07 AM EDT) Sedimentation Rate Automated 4 3 - 46 mm/hr [facility] Comment: Effective August 12, 2019 new capillary photometric technology has resulted in a change in reference ranges. It is recommended that each ESR result be reviewed with its own age appropriate reference range. Blood 02/05/2023 11:0 7 AM EDT 02/05/2023 11:45 AM EDT Narrative Resulting Agency Comment Spec In Lab Alice Carney APR[place] [address] documented in this encounter Visit Diagnoses Diagnosis High risk medication use Encounter for long-term (current) use of other medications Rheumatoid arthritis with positive rheumatoid factor, involving unspecified site documented in this encounter Care Teams Vice President Network Relationship Specialty Start Date End Date Arelis Michele MD [address] [place] [address] PCP - General Family Medicine 08/01/18 02/11/24 documented as of this encounter
--- OUTSIDE RECORDS SUMMARY | 2024-04-06 02:27 | XMS_ITS | Encounter Summary ---
Author Organization [facility] [place] [address] Care Team Providers Care Production Line Technician Name Role Phone Arelis Michele MD Primary Care Provider [phone] Encounter Details Date Type Department Care Team (Late st Contact Info) Description 06/20/2022 Ancillary Procedure [place] [address] Alice Carney [facility] [place] [address] Social History Tobacco Use Types Packs/Day Years [...] 12:00 PM EDT [place] [id number] documented as of this encounter Procedures Procedure Name Priority Date/Time Associated Diagnosis Comments FILM LIBRARY STORAGE ONLY CT HEAD Routine 06/20/2022 12:00 AM EDT documented in this encounter Results * Film Library- Storage Only CT Head (06/20/2022 12:00 AM EDT) Narrative RAD - 06/21/2022 6:46 AM EDT This exam is auto-finalizing. It's purpose is for storage only. Alice Carney APRN IMG FILM LIBRARY ORD ERABLES [place], [place] documented in this encounter Visit Diagnoses Not on filedocumented in this encounter Care Teams Production Line Technician Relationship Specialty Start Date End Date Arelis Michele MD [address] [place] [address] PCP - General Family Medicine 08/01/18 02/11/24 documented as of this encounter
--- OUTSIDE RECORDS SUMMARY | 2024-04-06 02:27 | XMS_ITS | Encounter Summary ---
[place] [address] Care Team Providers Care Collections Specialist Name Role Phone Arelis Michele MD Primary Care Provider Reason for Referral * Consultation (Routine) - Closed Specialty Diagnoses / Procedures Referred By Azam corbett Referred To Contact Gastroenterology Diagnoses Screening for colon cancer Benign neoplasm of colon, unspecified Personal history of colonic polyps Acquired absence of other specified parts of digestive tract Arelis Michele MD [address] [place] [address] [facility] [address] [place] [phone] Referral ID Status Reason Start Date Expiration Date V isits Requested Visits Authorized [id number] Closed Surgical PCP Updated and/or Approved 02/08/2023 02/08/2024 12 12 Encounter Details Date Type Department Care Team (Latest Contact Info) Description 02/08/2023 Transcribe Orders eD Incoming Referrals [phone] Arelis Michele MD [address] [place], [place] [id number] Screening for colon cancer Social History Tobacco Use Types Packs/Day Years [...] 12:00 PM EDT [place] [address] Scheduled Referrals Name Type Priority Associated Diagnoses Order Schedule REFERRAL TO COLONOSCOPY PROCEDURE Outpatient Referral Routine Screening for colon cancer Ordered: 02/08/2023 documented as of this encounter Visit Diagnoses Diagnosis Screening for colon cancer Special screening for malignant neoplasms, colon documented in this encounter Care Teams Collections Specialist Relationship Specialty Start Date End Date Arelis Michele MD [address] [place] [address] PCP - General Family Medicine 08/01/18 02/11/24 documented as of this encounter
--- OUTSIDE RECORDS SUMMARY | 2024-04-06 02:27 | XMS_ITS | Encounter Summary ---
[facility] [place] [address] Care Team Providers Care Automation Qa Tester Name Role Phone Arelis Michele MD Primary Care Provider [phone] Reason for Visit * Treatment/Therapy Plan Authorization (Routine) - Closed Specialty Diagnoses / Procedures Referred By Azam corbett Referred To Contact Diagnoses Rheumatoid arthritis, involving unspecified site, unspecified whether rheumatoid factor present Procedures inf Alice Carney, INSTRUMENTATION SPECIALIST [facility] [place] [address] [facility] Med Infusion [address] [place] [id number] Referral ID Status Reason Start Date Expiration Date Visits Re quested Visits Authorized [id number] Closed 12/08/2021 12/08/2022 99 99 Encounter Details Date Type Department Care Team (Latest Contact Info) Description 10/09/2022 11:53 AM EST - 10/09/2022 11:59 PM EST Hospital Encounter [place] [address] Rheumatoid arthritis, involving unspecified site, unspecified whether [...] Sign Reading Time Taken Comments Blood Pressure 153/86 10/09/2022 11:58 AM EST Pulse 78 10/09/2022 11:58 AM EST Temperature 36.6 ??C (97.8 ??F) 10/09/2022 1 1:58 AM EST Respiratory Rate 16 10/09/2022 11:5 8 AM EST Oxygen Saturation 100% 10/09/2022 11: 58 AM EST Inhaled Oxygen Concentration - - Weight 99.3 kg (218 lb 14.4 oz) 023 11:58 AM EST Height - - Body Mass Index 30.99 06/05/2022 8:49 AM EDT documented in this encounter Medications at Time of Discharge Medication Sig Dispensed Refills Start Date End Date atorvastatin (Lipitor) 20 mg Tablet Take 20 [...] into both eyes as needed. 09/13/2022 09/17/2023 folic acid (Folvite) 1 mg Tablet Take 1 tablet by mouth daily. 90 tablet 3 08/18/2021 02/05/2023 venlafaxine (EFFEXOR) 75 mg Tablet Take 75 mg by mouth daily. 02/05/2023 methylPREDNISolone (MEDROL) 4 mg Tablet Take 0.5 tablets by mouth daily. 45 tablet 02/28/2016 09/17/2023 documented as of this encounter Progress Notes * Taty Francis RN - 10/09/2022 11:57 AM EST INFUSION THERAPY ADMINISTRATION NOTES DIAGNOSIS: The encounter diagnosis was Rheumatoid arthritis, involving unspecified site, unspecified whether rheumatoid factor present. REASON FOR VISIT: Rituxan day # 1 SUBJECTIVE: states, I haven't had this since January. Reports they thought he had an infection last time and cancelled it. OBJECTIVE: Last dose received on 02/13/2022 VITALS: BP 153/86 (BP Location (NBP): Left arm, Patient Position: Sitting, BP Cuff Sizes: Adult (25-34 cm)) Pulse 78 Temp 36.6 ??C (97.8 ??F) (Temporal) Resp 16 Wt 99.3 kg (218 lb 14.4 oz) SpO2 100% BMI 30.99 kg/m?? IF PAIN >5, INTERVENTION AND EFFECTIVENESS: na IV ACCESS: Peripheral IV Line - Single Lumen 10/09/22 1220 median vein (underside of arm), right 24 gauge;3/4 in length (Active) Indication/Daily Review of Necessity medication therapy intermittent 10/09/22 1220 Site Preparation/Maintenance site cleansed: 70% alcohol;dressing: transparent semipermeable onqkruv29/07/23 1220 Patency/Maintenance flushed without difficulty;blood return, able to obtain;alcohol impregnated capapplied 10/09/22 1220 Infiltration 0-->no symptoms 10/09/22 1220 HYDRATION, RATE, START TIME, STOP TIME N/A ANTIEMETICS/PREMEDS, DOSE, ROUTE, START TIME, STOP TIME Tylenol 650 mg PO @1220 Loratadine 10 mg PO @ 1220 Methylprednisolone 100 mg IV @ 1222 Patient identification and orders checked against actual dose given at bedside by Taty Francis RN TREATMENT/BLOOD/OTHER, DOSE, ROUTE, START TIME, STOP TIME ??? riTUXimab (Rituxan) (2 mg/mL) in sodium chloride 0.9% infusion 1,000 mg Intravenous Once ### Administration times: 1255 to 1613. 2nd schedule used REACTIONS (DESCRIPTION, TIME, INTERVENTION AND EFFECTIVENESS) None. ASSESSMENT: Tolerated infusion well. PLAN: Return to clinic in 4 months on 02/05/2023 Follow up per rheumatology clinic. documented in this encounter Plan of Treatment Upcoming Encounters Date Type Department Care Team (Late st Contact Info) Description 04/28/2024 12:00 PM EDT Appointment [place] [address] documented as of this encounter Visit Diagnoses Diagnosis Rheumatoid arthritis, involving unspecified site, unspecified whether rheumatoid factor present documented in this encounter Administered Medications Inactive Administered Medications - up to 3 most recent administrations Medication Order MAR Action Action Date Dose Rate Site acetaminophen (Tylenol) tablet 650 mg 650 mg, Oral, ONCE, 1 dose, On Sat10/09/22 at 1230, Maximum dose of acetaminophen is 4,000 mg from all sources in 24 hours, Routine Given 10/09/2022 12:20 PM EST 650 mg loratadine (Claritin) tablet 10 mg 10 mg, Oral, ONCE, 1 dose, On Sat10/09/22 at 1230, Routine Given 10/09/2022 12:20 PM EST 10 mg methylPREDNISolone sod succ (pf) (SOLU-Medrol) (125 mg/2 mL) injection 100 mg 100 mg, Intravenous, ONCE, 1 dose, On Sat10/09/22 at 1230 Given 10/09/2022 12:22 PM EST 100 mg riTUXimab (Rituxan) 1,000 mg in sodium chloride 0.9% 500 mL infusion 1,000 mg, Intravenous, ONCE, 1 dose, On Sat10/09/22 at 1300, Administer per protocol., RITUXAN is NON-PREFERRED brand. Please indicate why RITUXAN is specifically required (vs. preferred RUXIENCE brand): Other (please enter in comments) New Bag 10/09/2022 12:55 PM EST 1,000 mg documented in this encounter Care Teams Automation Qa Tester Relationship Specialty Start Date End Date Arelis Michele MD [address] [place] [address] PCP - General Family Medicine 08/01/18 02/11/24 documented as of this encounter
--- OUTSIDE RECORDS SUMMARY | 2024-04-06 02:27 | XMS_ITS | Encounter Summary ---
Author Organization [facility] [place] [address] Care Team Providers Care Nail Polish Brush Machine Feeder Name Role Phone Arelis Michele MD Primary Care Provider [phone] Reason for Visit * Treatment/Therapy Plan Authorization (Routine) - Closed Specialty Diagnoses / Procedures Referred By Azam corbett Referred To Contact Rheumatology Diagnoses Rheumatoid arthritis, involving unspecified site, unspecified whether rheumatoid factor present Procedures INFUSION THERAPY TC RITUXIMAB, 10MG INJECTION Alice Carney [facility] [place] [address] Alice Carney [facility] [place] [address] Referral ID Status Reason Start Date Expiration Date Visits Re quested Visits Authorized [id number] Closed 01/10/2023 01/10/2024 99 101 Encounter Details Date Type Department Care Team (Latest Contact Info) Description 09/17/2023 10:58 AM EST - 09/17/2023 11:59 PM EST Hospital Encounter [place] [id number] Rheumatoid arthritis, involving unspecified site, unspecified whether rheumatoid factor present (Primary Dx) Discharge Disposition: Home Social History Tobacco Use [...] Sign Reading Time Taken Comments Blood Pressure 149/71 09/17/2023 11:00 AM EST Pulse 66 09/17/2023 11:00 AM EST Temperature 37.1 ??C (98.7 ??F) 09/17/2023 11:[address] Respiratory Rate 18 09/17/2023 11:00 AM EST Oxygen Saturation 96% 09/17/2023 11:00 AM EST Inhaled Oxygen Concentration - - Weight 98 kg (216 lb) 09/17/2023 11:00 AM EST Height - - Body Mass Index 30.13 05/28/2023 10:50 AM EDT documented in this encounter Medications at Time of Discharge Medication Sig Dispensed Refills Start Date End Date fluorouraciL (EFUDEX) 5 % Cream Apply topically 2 times daily. 07/09/2023 loratadine (Claritin) 10 mg Tablet Take 10 mg by mouth daily. 05/16/2023 khqawfja-wresfzefe-gnuuv ethasone (MAXITROL) 3.5mg/mL-10,000 unit/mL-0.1 % Drops, Suspension Place 1 drop into both eyes 4 times daily. 06/06/2023 venlafaxine XR (Effexor-XR) 75 mg ER 24 [...] mouth daily. fluticasone (FLONASE) 50 mcg/actuation nasal sprayIndications:Post-na shelton drip 1 spray by Each Nare route [...] Med - OTC mositurizing eye drops 11/02/2010 documented as of this encounter Progress Notes * Brooke Royal RN - 09/17/2023 11:37 AM EST INFUSION THERAPY ADMINISTRATION NOTES DIAGNOSIS: 1. Rheumatoid arthritis, involving unspecified site, unspecified whether rheumatoid factor present REASON FOR VISIT: Rituxan Infusion Allergies Allergen Reactions Calcium kidney stones Levothyroxine Lisinopril Dry cough Sulfasalazine (Bulk) Nausea, diarrhea, CARRANZA SUBJECTIVE: offers no complaints. OBJECTIVE: Last infusion 05/28/2023. Q 16 weeks VITAL SIGNS: BP 149/71 (BP Location (NBP): Left arm, Patient Position: Sitting, BP Cuff Sizes: Adult (25-34 cm)) Pulse 66 Temp 37.1 ??C (98.7 ??F) (Temporal) Resp 18 Wt 98 kg (216 lb) SpO2 96% BMI 30.13 kg/m?? IF PAIN >5, INTERVENTION AND EFFECTIVENESS: none LAB DATA: No results found for this or any previous visit (from the past 24 hour(s)). IV ACCESS: PIV 09/17/23 1129 24 gauge;3/4 in length basilic vein (medial side of arm), left (Active) PRE-MEDICATIONS/HYDRATION: Tylenol 650 mg PO Claritin 10 mg PO SOLU-Medrol 100 mg IVP MEDICATION/TREATMENT: Patient identification and orders checked against actual dose given at bedside by Brooke Royal RN Rituxan 1,000 mg IV @ SEE MAR SECOND schedule used: 100 mg/hr for 25 mL 200 mg/hr for 50 mL 300 mg/hr for 75 mL 400 mg/hr for remainder REACTIONS: None. ASSESSMENT: Awake and alert - tolerated treatment well. PLAN: Next infusion due on 01/07/2024. documented in this encounter Plan of Treatment Upcoming Encounters Date Type Department Care Team (Late st Contact Info) Description 04/28/2024 12:00 PM EDT Appointment [place] [address] documented as of this encounter Visit Diagnoses Diagnosis Rheumatoid arthritis, involving unspecified site, unspecified whether rheumatoid factor present- Primary documented in this encounter Administered Medications Inactive Administered Medications - up to 3 most recent administrations Medication Order MAR Action Action Date Dose Rate Site acetaminophen (Tylenol) tablet 650 mg 650 mg, Oral, ONCE, 1 dose, On Sat09/17/23 at 1130, Maximum dose of acetaminophen is 4,000 mg from all sources in 24 hours, Routine Given 09/17/2023 11:15 AM EST 650 mg loratadine (Claritin) tablet 10 mg 10 mg, Oral, ONCE, 1 dose, On Sat09/17/23 at 1130, Routine Given 09/17/2023 11:15 AM EST 10 mg methylPREDNISolone sod succ (pf) (SOLU-Medrol) (125 mg/2 mL) injection 100 mg 100 mg, Intravenous, ONCE, 1 dose, On Sat09/17/23 at 1130 Given 09/17/2023 11:30 AM EST 100 mg riTUXimab (Rituxan) 1,000 mg in sodium chloride 0.9% 500 mL infusion 1,000 mg, Intravenous, ONCE, 1 dose, On Sat09/17/23 at 1215, Administer Per Protocol, RITUXAN is NON-PREFERRED brand. Please indicate why RITUXAN is specifically required (vs. preferred RUXIENCE brand): Other (please enter in comments), Is this product being used for treatment of malignant indication? No New Bag 09/17/2023 11:41 AM EST 1,000 mg documented in this encounter Care Teams Nail Polish Brush Machine Feeder Relationship Specialty Start Date End Date Arelis Michele MD [address] [place] [address] PCP - General Family Medicine 08/01/18 02/11/24 documented as of this encounter
--- OUTSIDE RECORDS SUMMARY | 2024-04-06 02:27 | XMS_ITS | Encounter Summary ---
[place] [address] Care Team Providers Care Doweler Name Role Phone Arelis Michele MD Primary Care Provider Encounter Details Date Type Department Care Team (Latest Contact Info) Description 10/09/2022 Travel Social History Tobacco Use Types Packs/Day [...] 12:00 PM EDT [place]ment [place] [address] documented as of this encounter Visit Diagnoses Not on filedocumented in this encounter Care Teams Doweler Relationship Specialty Start Date End Date Arelis Michele MD [address] [place] [address] PCP - General Family Medicine 08/01/18 02/11/24 documented as of this encounter
--- OUTSIDE RECORDS SUMMARY | 2024-04-06 02:27 | XMS_ITS | Continuity of Care Document ---
Author Organization [facility] Address [address] [place] [address] Care Team Providers Care Medical Services Manager Name Role Phone DELPHINE ZARCO Freelance Art Director DIONE PATEL Mixer Pigment [phone] Assessment No assessment recorded. Plan of Treatment Reminders Order Date Submit Date Provider Last Modified By Organization Details Last Modified Time Details Appointments Follow Up 30 2023 08:10A M LEE MENESES Not available Not available Not available Lab BMP, serum or plasma 2023 024 [email or web address] [facility] (Registration ), [address] [place] [address] Dr, [place], [address], 01/17/2024 07:56:50 Referral None recorded. Procedures None recorded. Surgeries None recorded. Imaging None recorded. Medication Orders prednison e 10 mg tablet [address] [facility] [address], [address] [place], [address], 03/26/2024 14:46:00 Patient TargetsNo targets recorded. Patient InstructionsNo instructions recorded. 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 COMPAR BJ: CT CHEST WO 11/05/19 24 12:28 PM FINDIN GS: Lungs: Stable airspa [...] right hemidi aphrag m. Dictat ed and Christ sims d by: Ady lópez MD. Kellie malin:Dawn Montanez MD Access ion#=1 [id number] Ordere d By: CC: ------ ------ ------ ------ ------ ------ ------ ------ ------ ------ ------ ------ ---- Dictat ed By: Report s vrad 1215 1245 Transc ribed By: Abel Titus 1215 This is privil eged, confid ential inform ation intend ed only for the provid er named. Any use or distri bution by any person other than this provid er is strict ly prohib ited. If you receiv e this report in error, please notify us immrafael kwong at and return the origin al report to us at the addres s above. Thank- you. landry [facility] [address], [place], [address] 01/05/2024 07:04:06 12/28/19 24 12/28/2023 x-ray imagi ng repor t Patien t Name: Iván Grover Unit #: [id number] Loc: DI Orderi ng Provid er: April Marion Accanand t #: [id number] Status : REG CLI Primar [...] 2022 CT CT CHEST WO from 2023 FINDIN GS: 2 views: Right hemidi aphrag m [...] - Dictat ed By: Johnathon West M.D. 1420 142 Transc ribed By: Jenna CASTILLO,How mariana 142 This is privil eged, confid ential inform ation intend ed only for the provid er named. Any use or distri bution by any person other than this provid er is strict ly prohib ited. If you receiv e this report in error, please notify us immedi giuseppely at and return the origin al report to us at the addres s above. Thank- you. [facility] [address] [place], [address] 01/05/2024 07:04:06 12/30/19 24 12/30/2023 x-ray imagi ng repor t George t Name: Iván Grover Unit #: [id number] Loc: ER Orderi ng Provid er: Mc Avalos M.D. Accoun t #: [id number] Status : REG ER Primar y [...] Dictat ed By: Johnathon West M.D. 1635 163 Transc ribed By: Jenna CASTILLO,How mariana 163 This is privil eged, confid ential inform ation intend ed only for the provid er named. Any use or distri bution by any person other than this provid er is strict ly prohib ited. If you receiv e this report in error, please notify us immedi ately at and return the origin al report to us at the addres s above. Thank- you. [facility] [address], [place], [address] 01/05/2024 07:04:06 01/08/20 24 01/08/2024 XR, chest , 2 view George corbett Name: Iván Grover Unit #: [id number] Loc: ER Orderi ng Provid er: April Marion Accanand t #: [id number] Status : REG ER Primar [...] area of consol idatio n or pulmon atvo edema. PLEURA L SPACE: No pleura l effusi on or pneumo thorax . BONE:U nremar kable for age. Soft tissue s: Unrema rkable . IMPRES WILBERT: No acute abnorm ality. DATA REPOSI TORY: RADIAT ION DOSE DELIVE RED: Ordere d By: April Marion CC: ------ ------ ------ ------ ------ ------ ------ ------ ------ ------ ------ ------ - Dictat ed By: Sheila Alcaraz 1055 105 Transc ribed By: Jatin Mayen 1055 This is privil eged, confid ential inform ation intend ed only for the provid er named. Any use or distri bution by any person other than this provid er is strict ly prohib ited. If you receiv e this report in error, please notify us immedi elenita at and return the origin al report to us at the addres s above. Thank- you. [email or web address] [facility] [address], [place], [address] 02/06/2024 12:04:57 Result Notes None recorded. Problems [...] F32.9; Problem Code Type: ICD-10; Not Available [facility] 3 05:28:17 Essential hypertension Active 201011/07/2020 - Comments only - Lee Meneses MD - per recent reading at [facility] I feel this is remaining under reasonable control. He will continue the metoprolol, terazosin. Also on isosorbide. Problem Code: I10; Problem Code Type: ICD-10; MD [address], [place], [address] , [place] [facility] 3 15:45:28 Hyperlipidemi a Active 201005/19/2019 - Comments only - Primitivo Brown - He will continue atorvastatin. Problem Code: E78.5; Problem Code Type: ICD-10; Not Available [facility] 3 05:28:17 Generalized anxiety disorder Active 201208/08/2021 - Comments only - Lee Meneses MD - improved now that he has a warm apartment to be in for the winter. He has his name on a list for a senior apartment complex also. He will remain on the wellbutrin and venlafaxine for now. Problem Code: F41.1; Problem Code Type: ICD-10; Not Available [facility] 3 05:28:17 Postprocedura l state finding Active 2012 Problem Code: Z98.89; Problem Code Type: ICD-10; Not Available [facility] 3 05:28:18 Gastrointesti nal tract excision Active 2012 Problem Code: Z90.49; Problem Code Type: ICD-10; Not Available [facility] 3 05:28:18 History of polyp of colon Active 2018 Problem Code: Z86.010; Problem Code Type: ICD-10; Not Available [facility] 3 05:28:18 Gastroesophag eal reflux disease without esophagitis Active 201011/07/2020 - Comments only - Lee Meneses MD - discussed trying to cut back on prilosec. He will continue the AM dose but d/c the PM. He continues on ranitidine at . Problem Code: K21.9; Problem Code Type: ICD-10; MD [address], [place], [address] , [facility] 3 15:45:28 Sj??gren's syndrome Active 201308/11/2022 - Comments only - Lee Meneses MD - , Possible Sjogren's. He does have RA as well. Again he is learned to live with it for the most part. Problem Code: M35.00; Problem Code Type: ICD-10; Not Available [facility] 3 05:28:18 Overweight Active 2010 Problem Code: E66.3; Problem Code Type: ICD-10; Not Available [facility] 3 05:28:18 Insomnia Active 201008/08/2021 - Comments only - Lee Meneses MD - doing better on the trazadone, off the temazepam. Will continue to monitor. Problem Code: G47.00; Problem Code Type: ICD-10; Not Available [facility] 3 05:28:18 Osteoporotic fracture of vertebra Active 2010 Problem Code: M80.88xD; Problem Code Type: ICD-10; Not Available [facility] 3 05:28:19 Rheumatoid arthritis Active 201002/12/2023 - Comments only - Lee Meneses MD - He continues on rituxan, followed by rheumatology Problem Code: M06.9; Problem Code Type: ICD-10; ENRIQUE LIMON MD [address], [place], [address] , [facility] 3 15:45:28 Rosacea Active 201203/18/2022 - Comments only - Lee Meneses MD - Which seems to have flared up with his accidentally using diclofenac gel instead of metronidazole gel. Explained the difference to him. 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 If he has not had improvement within 3 to 4 weeks to let us know. Problem Code: L71.9; Problem Code Type: ICD-10; MD [address], [place], [address] , [facility] 3 15:45:28 Secondary pulmonary hypertension Active 2014 Problem Code: I27.2; Problem Code Type: ICD-10; Not Available [facility] 3 05:28:19 Dyspnea Active 201407/05/2021 - [...] R06.00; Problem Code Type: ICD-10; Not Available [facility] 3 05:28:19 Congenital anomaly of diaphragm Active 2014 Problem Code: Q79.1; Problem Code Type: ICD-10; MD [address], [place], [address] , [facility] 3 15:45:29 Polyneuropath y Active 2015 Problem Code: G62.9; Problem Code Type: ICD-10; Not Available [facility] 3 05:28:20 Hypothyroidis m Active 201508/11/2022 - Comments only - Lee Meneses MD - On levothyroxine . TSH ordered. Problem Code: E03.9; Problem Code Type: ICD-10; MD [address], [place], [address] , [facility] 3 15:45:28 Joint pain Active 2015 Problem Code: M25.50; Problem Code Type: ICD-10; Not Available [facility] 3 05:28:20 Adjustment disorder Active 2015 Problem Code: F43.29; Problem Code Type: ICD-10; Not Available [facility] 3 05:28:20 Osteoporosis Active 2015 Problem Code: M81.8; Problem Code Type: ICD-10; Not Available [facility] 3 05:28:20 Acute upper respiratory infection Completed 201506/09/2016 Problem Code: J06.9; Problem Code Type: ICD-10; Not Available [facility] 3 05:28:20 Bleeding from nose Active 2017 Problem Code: R04.0; Problem Code Type: ICD-10; Not Available [facility] 3 05:28:21 Disorder of pharynx Active 2017 Problem Code: J39.2; Problem Code Type: ICD-10; Not Available [facility] 3 05:28:21 Pain of left shoulder joint Active 2017 Problem Code: M25.512; Problem Code Type: ICD-10; Not Available [facility] 3 05:28:21 Chest pain Active 2017 Problem Code: R07.9; Problem Code Type: ICD-10; Not Available [facility] 3 05:28:21 Wheezing Active 2017 Problem Code: R06.2; Problem Code Type: ICD-10; Not Available [facility] 3 05:28:21 Cough Active 201707/05/2021 - Comments only - Lee Meneses MD - He has had a tickly cough now for years. Initially we thought it was related to lisinopril which was discontinued but this tickly cough never resolved. We will have him try Tessalon Perles as needed, he has used these historically. Problem Code: R05; Problem Code Type: ICD-10; Not Available [facility] 3 05:28:21 Cardiomyopath y Active 201703/18/2022 - Comments only - Lee Meneses MD - /Pulmonary hypertension. Overall he is remaining stable, continues on medications as listed in prior . . Problem Code: I42.9; Problem Code Type: ICD-10; ENRIQUE LIMON MD [address], [place], [address] , [facility]. 3 15:45:29 Melena Active 2017 Problem Code: K92.1; Problem Code Type: ICD-10; Not Available [facility] 3 05:28:22 Screening for malignant neoplasm of colon Active 201803/10/2019 - Comments only - Lee Meneses MD - colonoscopy 2018 with tubular adenoma with high grade dysplasia - repeat by early 2019 Problem Code: Z12.11; Problem Code Type: ICD-10; Not Available [facility] 3 05:28:22 Itching of skin Active 2018 Problem Code: L29.9; Problem Code Type: ICD-10; Not Available [facility] 3 05:28:23 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 He continues on atorvastatin, metoprolol, isosorbide, ASA. Problem Code: I25.10; Problem Code Type: ICD-10; MD [address], [place], [address] , [facility] 3 15:45:28 Adult health examination Active 201803/06/2021 - Comments only - Lee Meneses MD - He would like to check a PSA with the blood work. Problem Code: Z00.00; Problem Code Type: ICD-10; Not Available [facility] 3 05:28:23 Benign prostatic hyperplasia Active 201805/19/2019 - Comments only - Lee Meneses MD - with persistent nocturia - will have him increase the terazosin to 4mg qhs Problem Code: N40.0; Problem Code Type: ICD-10; MD [address], [place], [address] , [facility] 3 15:45:28 Dysphagia Active 201805/19/2019 - Comments only - Lee Meneses MD - ongoing - this may be related to Sicca syndrome. He had an ENT w/u without dx found, no upper endoscopy or barium swallow studies in our system. I will ask him about these when I call him with bloodwork results. Problem Code: R13.10; Problem Code Type: ICD-10; Not Available [facility] 3 05:28:23 Non-traumatic tendon rupture Active 2018 Problem Code: M66.871; Problem Code Type: ICD-10; Not Available [facility] 3 05:28:24 Mild intermittent asthma Active 201803/18/2022 - Comments only - Lee Meneses MD - With chronic dyspnea on exertion. He continues on Symbicort, Singulair. I did suggest he can use the ProAir prior to exercise and he will try that. Problem Code: J45.20; Problem Code Type: ICD-10; Not Available [facility] 3 05:28:24 Traumatic or non-traumatic injury Active 201903/06/2021 - Comments only - Lee Meneses MD - Right status post injury. Resolving well at this point. Problem Code: T14.8xxA; Problem Code Type: ICD-10; Not Available [facility] 3 05:28:24 Pain of joint of knee Active 2019 Problem Code: M25.569; Problem Code Type: ICD-10; Not Available [facility] 3 05:28:24 Actinic keratosis Active 2019 Problem Code: L57.0; Problem Code Type: ICD-10; Not Available [facility] 3 05:28:25 Pain of right knee joint Active 2019 Problem Code: M25.561; Problem Code Type: ICD-10; Not Available [facility] 3 05:28:25 Prediabetes Active 201908/11/2022 - Comments only - Lee Meneses MD - He will be due for an A1c at the next visit. Problem Code: R73.03; Problem Code Type: ICD-10; ENRIQUE LIMON MD [address], [place], [address] , [facility] 3 15:45:29 Periapical abscess Active 2019 Problem Code: K04.7; Problem Code Type: ICD-10; Not Available [facility] 3 05:28:26 Disorder of skin and/or subcutaneous tissue Active 202003/18/2022 - Comments only - Lee Meneses MD - Right posterior ear. We will refer Wesly to Dr. Wade for further evaluation/bi opsy. Problem Code: L98.9; Problem Code Type: ICD-10; Not Available [facility] 3 05:28:26 Therapeutic drug monitoring assay Active 2020 Problem Code: Z51.81; Problem Code Type: ICD-10; Not Available [facility] 3 05:28:26 Ureteric stone Active 202007/05/2021 - Comments only - Lee Meneses MD - Currently resolved. Following with urology Problem Code: N20.1; Problem Code Type: ICD-10; Not Available [facility] 3 05:28:26 COVID-19 Active 202111/06/2021 - Comments only - Lee Meneses MD - About 2 months ago. Minimal symptoms, resolved. We did discuss the possibility of the Laura Madrigal I need to find out whether and when he may be a candidate for that given that he has had Covid infection. Problem Code: U07.1; Problem Code Type: ICD-10; Not Available [facility] 3 05:28:26 Disorder of nasal sinus Active [...] on any steroid nasal sprays. Not Available [facility] 3 05:28:27 Chronic cough Active 202102/13/2023 - [...] states he did meet with pulmonology at [facility] at 1 point but they just told him symptoms were on his head . We will try and obtain that note. Problem Code: R05.3; Problem Code Type: ICD-10; MD [address], [place], [address] , [facility] 3 15:45:28 Basal cell carcinoma of [...] C44.91; Problem Code Type: ICD-10; Not Available [facility] 3 05:28:27 Benign neoplasm of colon Active 202108/11/2022 - Comments only - Lee Meneses MD - , History of. Due for colonoscopy. Problem Code: D12.6; Problem Code Type: ICD-10; MD [address], [place], [address] , [facility] 15:45:29 Degenerative disorder of macula Active 2022 Problem Code: H35.30; Problem Code Type: ICD-10; Not Available [facility] 3 05:28:28 Long-term current use of drug therapy Active 2022 Problem Code: Z79.69; Problem Code Type: ICD-10; Not Available [facility] 3 05:28:28 Disorder of sacrum Active 2022 Not Available [facility] 3 05:28:28 Hip pain Active 2022 Problem Code: M25.559; Problem Code Type: ICD-10; Not Available [facility] 3 05:28:28 Acute upper respiratory infection Completed 201511/21/2017 Problem Code: J06.9; Problem Code Type: ICD-10; Not Available [facility] 3 05:28:30 Blepharitis Completed 201201/28/2018 Problem Code: H01.009; Problem Code Type: ICD-10; Not Available [facility] 3 05:28:31 Cough Completed 201401/28/2018 Problem Code: R05; Problem Code Type: ICD-10; Not Available [facility] 3 05:28:31 Gastroesophag eal reflux disease Completed 201005/29/2023 Not Available [facility] 3 05:28:31 Dizziness and giddiness Completed 201501/28/2018 Problem Code: R42; Problem Code Type: ICD-10; Not Available [facility] 3 05:28:32 Cellulitis Completed 201606/03/2017 Problem Code: L03.119; Problem Code Type: ICD-10; Not Available [facility] 3 05:28:32 Osteopenia Completed 201005/29/2023 Not Available [facility] 3 05:28:32 Effusion of joint Completed 201401/28/2018 Problem Code: M25.40; Problem Code Type: ICD-10; Not Available [facility] 3 05:28:33 Acute bronchitis Completed 201409/25/2016 Problem Code: J20.9; Problem Code Type: ICD-10; Not Available [facility] 3 05:28:33 Hypertensive disorder Completed 201005/29/2023 Not Available [facility] 3 05:28:34 Hernia of anterior abdominal wall Completed 201205/29/2023 Not Available [facility] 3 05:28:35 Bursitis of olecranon of left elbow Completed 201601/28/2018 Problem Code: M70.22; Problem Code Type: ICD-10; Not Available [facility] 3 05:28:36 Pre-surgery evaluation Completed 201606/03/2017 Problem Code: Z01.818; Problem Code Type: ICD-10; Not Available [facility] 3 05:28:36 Acute pharyngitis Completed 201701/28/2018 Problem Code: J02.9; Problem Code Type: ICD-10; Not Available [facility] 3 05:28:37 Colonoscopy Completed 201205/29/2023 Not Available [facility] 3 05:28:38 Specialized medical examination Completed 201205/29/2023 Problem Code: Z01.89; Problem Code Type: ICD-10; Not Available [facility] 3 05:28:39 Chronic maxillary sinusitis Completed 201601/28/2018 Problem Code: J32.0; Problem Code Type: ICD-10; Not Available [facility] 3 05:28:40 Pathological fracture of vertebra Completed 201005/29/2023 Not Available [facility] 3 05:28:40 Hypothyroidis m Completed 201205/29/2023 ENRIQUE LIMON MD [address], [place], [address] , [facility] 3 15:45:28 Adult health examination Completed 201601/28/2018 Problem Code: Z00.00; Problem Code Type: ICD-10; Not Available [facility] 3 05:28:41 Osteoporosis Completed 201005/29/2023 Not Available [facility] 3 05:28:43 Increased frequency of urination Completed 201601/28/2018 Problem Code: R35.0; Problem Code Type: ICD-10; Not Available [facility] 3 05:28:44 Pulmonary hypertension Completed 201405/29/2023 Not Available [facility] 3 05:28:45 Conjunctiviti s Completed 201201/28/2018 Problem Code: H10.89; Problem Code Type: ICD-10; Not Available [facility] 3 05:28:46 Bone density finding Completed 201009/25/2016 Problem Code: M85.80; Problem Code Type: ICD-10; Not Available [facility] 3 05:28:46 Rosacea conjunctiviti s Completed 201205/29/2023 Not Available [facility] 3 05:28:47 Anxiety state Completed 201205/29/2023 Not Available [facility] 3 05:28:48 Obstructed labor due to shoulder dystocia Completed 201501/16/2016 Problem Code: O66.0; Problem Code Type: ICD-10; Not Available [facility] 3 05:28:49 Depressive disorder Completed 201005/29/2023 Not Available [facility] 3 05:28:51 Pneumonia Completed 201701/28/2018 Problem Code: J18.9; Problem Code Type: ICD-10; Not Available [facility] 3 05:28:52 Pain of left shoulder joint Completed 201501/28/2018 Problem Code: M25.512; Problem Code Type: ICD-10; Not Available [facility] 3 05:28:54 History of SARS-CoV-2 Active [address], [place], [address] , [facility] 4 11:04:33 Benign prostatic hyperplasia with outflow obstruction Active [address], [place], [address] , [facility]. 4 10:07:46 Notes:*Problem Name: Chronic Dyspnea [...] Name and Address Organization Details Recorded Time 68204 lisinopri l medicatio n cough moderate Not available 07/12/20232011 59806 RxNorm dry cough Aller gyCod e: '3140 76'; Aller gyNam e: 'XIOMY NOPRI L'; Aller gyCon ceptT ype: 'RX Norm' ; Aller gyRea ction : 'dry cough '; Not Available [facility] 16:21:49 Medications Name Sig Start Date Stop [...] oral route as needed. active RX by [facility] pulmonol ogy Not Available Not Available Not [...] Not Available Rituxan every 16 weeks at [facility]. Labs 1-2 weeks [...] once a day 01/08 completed stopped by [facility] - elevated calcium level Not Available Not [...] on route as needed. active Rx by [facility] pulmonol ogy Not Available Not Available Not Available Vitals Date Recorded Body height Oxygen saturation Oxygen saturation in Arterial blood by Pulse oximetry Heart rate Body temperature Respiratory rate Systolic blood pressure Diastolic blood pressure Provider Name and Address Organization Details Last Updated DateTime 4 180.34 cm 91 % 91 % 119 /min 97.7 [degF] 22 /min 152 mm[Hg] 98 mm[Hg] Emily Montano RN [facility] 4 13:12:06 Social History Question Answer Notes LastModified by Organizat ion Details LastModified Time Tobacco Smoking Status Never Smoker Perico Quiroz MA null, [facility] 11/19/2023 11:03:00 What Was The Date Of Your Most Recent Tobacco Screening? 11/19/2023 [email or web address] Information not available 11/19/2023 Has Tobacco Cessation Counseling Been Provided? No Information not available 11/19/2023 Do You Or Have You Ever Used Any Other Forms Of Tobacco Or Nicotine? No [email or web address] Information not available 11/19/2023 Sex: Male Functional [...] preservative free, adsorbed 06/14/2020 completed Not Available [facility] 07/12/2023 04:58:16 Tdap 05/08/2012 completed Not Available [facility] 04:58:16 Pneumococcal conjugate PCV 13 06/26/2016 completed Not Available [facility] 07/12/2023 04:58:17 Influenza, high-dose, trivalent, PF 06/04/2018 completed Not Available [facility] 07/12/2023 04:58:18 Influenza, split virus, trivalent, preservative 05/23/2016 completed [facility] 07/12/2023 04:58:18 Influenza, split virus, trivalent, preservative 05/26/2015 completed Not Available [facility] 07/12/2023 04:58:19 Influenza, high-dose, quadrivalent, PF 06/30/2020 completed Not Available [facility] 07/12/2023 04:58:20 Influenza, high-dose, quadrivalent, PF 06/30/2021 completed Not Available [facility] 07/12/2023 04:58:21 Influenza, high-dose, quadrivalent, PF 07/06/2022 completed Not Available [facility] 07/12/2023 04:58:21 COVID-19, mRNA, LNP-S, PF, 100 mcg/0.5mL dose or 50 mcg/0.25mL dose 11/07/2020 completed Not Available [facility] 07/12/2023 04:58:21 COVID-19, mRNA, LNP-S, PF, 100 mcg/0.5mL dose or 50 mcg/0.25mL dose 12/05/2020 completed Not Available [facility] 07/12/2023 04:58:22 COVID-19, mRNA, LNP-S, PF, 100 mcg/0.5mL dose or 50 mcg/0.25mL dose 12/26/2021 completed Not Available [facility] 07/12/2023 04:58:22 COVID-19, mRNA, LNP-S, PF, 100 mcg/0.5mL dose or 50 mcg/0.25mL dose 06/30/2021 completed Not Available [facility] 07/12/2023 04:58:22 COVID-19, mRNA, LNP-S, bivalent, PF, 30 mcg/0.3 mL dose 07/06/2022 completed Not Available [facility] 07/12/20 04:58:23 pneumococcal polysaccharide PPV23 09/07/2014 completed Not Available [facility] 2022 04:58:23 influenza, unspecified formulation 05/20/2014 completed Not Available [facility] 07/12/2023 04:58:24 influenza, unspecified formulation 06/05/2017 completed Not Available [facility] 07/12/2023 04:58:24 influenza, unspecified formulation 07/02/2019 completed Not Available [facility] 07/12/2023 04:58:26 Influenza, high-dose, quadrivalent, PF 05/14/2023 completed Not Available [facility] 09/13/2023 05:31:41 COVID-19, mRNA, LNP-S, PF, jonathan-sucrose, 30 mcg/0.3 mL 08/21/2023 completed YAZAN Beaulieu, [facility] 08/21/2023 10:07:33 Past Encounters Encounter ID Performer Location Encounter Start Date Encounter Closed Date Diagnosis/Indication Diagnosis SNOMED-CT Code [id number] DOUGLAS MORIN [facility] [address] [place] [address] 01/08/2024 07:49:22 01/08/2024 08:44:03 Pneumonia [id number] LEE MENESES MD [facility] [address] [place] [address] 01/10/2024 12:49:03 01/10/2024 14:06:15 Hypercalcemia [id number] Pneumonia [id number] Cardiomyopathy [id number] Rheumatoid arthritis 698 [id number] Disorder o f skin and/or subcutaneous tissue [id number] Health Concerns Section Related Observation LastModified by Organization Detai ls LastModified Time None Recorded Concern Status LastModified by Organization Details LastModified Time None Recorded Payers None recorded. Notes Date Note Type Note Provider Name and Address Organization Details Recorded Time 01/10/2024 text/html HPI Notes: Wesly here today for follow-up recurrent pneumonia, hypoxia, hypercalcemia MD Dequan [address], [place], [address], [facility] 01/12/2024 16:14:25
--- OUTSIDE RECORDS SUMMARY | 2024-04-06 02:27 | XMS_ITS | Encounter Summary ---
Author Organization [facility] [place] [address] Care Team Providers Care Rent And Miscellaneous Remittance Clerk Name Role Phone Arelis Michele MD Primary Care Provider [phone] Reason for Visit * Treatment/Therapy Plan Authorization (Routine) - Closed Specialty Diagnoses / Procedures Referred By Azam corbett Referred To Contact Rheumatology Diagnoses Rheumatoid arthritis, involving unspecified site, unspecified whether rheumatoid factor present Procedures INFUSION THERAPY TC RITUXIMAB, 10MG INJECTION Alice Carney [facility] [place] [address] [address] [facility] [place] [address] Referral ID Status Reason Start Date Expiration Date Visits Re quested Visits Authorized [id number] Closed 01/10/2023 01/10/2024 99 101 Encounter Details Date Type Department Care Team (Latest Contact Info) Description 02/05/2023 11:44 AM EDT - 02/05/2023 11:59 PM EDT Hospital En[place] [id number] Rheumatoid arthritis, involving unspecified site, unspecified whether [...] Sign Reading Time Taken Comments Blood Pressure 150/85 02/05/2023 11:48 AM EDT Pulse 87 02/05/2023 11:48 AM EDT Temperature 36.7 ??C (98.1 ??F) 02/05/2023 1 1:48 AM EDT Respiratory Rate 17 02/05/2023 11:4 8 AM EDT Oxygen Saturation 95% 02/05/2023 11: 48 AM EDT Inhaled Oxygen Concentration - - Weight 99.7 kg (219 lb 12.8 oz) 023 11:48 AM EDT Height - - Body Mass Index 30.66 11/07/2022 9:54 AM EST documented in this encounter Medications at Time of Discharge Medication Sig Dispensed Refills Start Date End Date venlafaxine XR (Effexor-XR) 75 mg ER 24 [...] as of this encounter Progress Notes * Anel Anaya RN - 02/05/2023 1:06 PM EDT INFUSION THERAPY ADMINISTRATION NOTES DIAGNOSIS: 1. Rheumatoid arthritis, involving unspecified site, unspecified whether rheumatoid factor present REASON FOR VISIT: Rituxan infusion Allergies Allergen Reactions Calcium kidney stones Levothyroxine Lisinopril Dry cough Sulfasalazine (Bulk) Nausea, diarrhea, CARRANZA SUBJECTIVE: Wesly offers no complaints. OBJECTIVE: Last infusion on 10/09/22 Q4 months infusions x 1 day VITAL SIGNS: BP 150/85 (BP Location (NBP): Right arm, Patient Position: Sitting, BP Cuff Sizes: Adult (25-34 cm)) Pulse 87 Temp 36.7 ??C (98.1 ??F) (Temporal) Resp 17 Wt 99.7 kg (219 lb 12.8 oz) SpO2 95% BMI 30.66 kg/m?? IF PAIN >5, INTERVENTION AND EFFECTIVENESS: n/a LAB DATA: Recent Results (from the past 24 hour(s)) Sedimentation rate Result Value Ref Range Sed Rate 4 3 - 46 mm/hr CRP, acute inflammation Result Value Ref Range CRP 6.5 (H) <=4.9 mg/L Comprehensive metabolic panel (non-fasting) Result Value Ref Range Glucose Lvl 95 [...] Estimated GFR 84 >=60 mL/min/1.73 m?? Hemogram Result Value Ref Range WBC 8.1 4.0 [...] 0.000 0.000 - 0.000 x10(3)/mcL Differential, Automated Result Value Ref Range Neutrophils % 59.5 [...] Gran Abs 0.01 0.00 - 0.04 x10(3)/mcL IV ACCESS: Peripheral IV Line - Single Lumen 02/05/23 1210 basilic vein (medial side of arm), right 22 gauge;1in length (Active) Indication/Daily Review of Necessity fluid therapy intermittent 02/05/231214 Site Preparation/Maintenance site cleansed: 70% alcohol;dressing: transparent semipermeable lahyyhh29/06/231214 Patency/Maintenance flushed without difficulty;alcohol impregnated cap applied;blood return, able to obtain 02/05/231214 Phlebitis 0-->no symptoms 02/05/231214 Infiltration 0-->no symptoms 02/05/231214 Site Signs/Symptoms no redness;no swelling;no warmth;no pain;no palpable cord;no streak formation 02/05/23 1215 HYDRATION: N/A ANTIEMETICS/PREMEDS: Tylenol 650 mg PO @ 1210 Loratadine 10 mg PO @ 1210 Solu-Medrol 100 mg IVP @ 1215 MEDICATION/TREATMENT: Patient identification and orders checked against actual dose given at bedside by Anel Anaya RN riTUXimab (Rituxan) 1,000 mg IV Administration times: See MAR Patient infused with 2nd schedules as follows: 100 mg/hr x 25 mL 200 mg/hr x 50 mL 300 mg/hr x 75 mL 400 mg/hr x remainder REACTIONS: None. ASSESSMENT: Awake and alert - tolerated treatment well. PLAN: Next infusion due on 05/28/23. documented in this encounter Plan of Treatment Upcoming Encounters Date Type Department Care Team (Late st Contact Info) Description 04/28/2024 12:00 PM EDT [place]ointment [place] [address] documented as of this encounter Visit Diagnoses Diagnosis Rheumatoid arthritis, involving unspecified site, unspecified whether rheumatoid factor present documented in this encounter Administered Medications Inactive Administered Medications - up to 3 most recent administrations Medication Order MAR Action Action Date Dose Rate Site acetaminophen (Tylenol) tablet 650 mg 650 mg, Oral, ONCE, 1 dose, On Sat02/05/23 at 1215, Maximum dose of acetaminophen is 4,000 mg from all sources in 24 hours, Routine Given 02/05/2023 12:10 PM EDT 650 mg loratadine (Claritin) tablet 10 mg 10 mg, Oral, ONCE, 1 dose, On Sat02/05/23 at 1215, Routine Given 02/05/2023 12:10 PM EDT 10 mg methylPREDNISolone sod succ (pf) (SOLU-Medrol) (125 mg/2 mL) injection 100 mg 100 mg, Intravenous, ONCE, 1 dose, On Sat02/05/23 at 1215 Given 02/05/2023 12:15 PM EDT 100 mg riTUXimab (Rituxan) 1,000 mg in sodium chloride 0.9% 500 mL infusion (malignant indication) 1,000 mg, Intravenous, ONCE, 1 dose, On Sat02/05/23 at 1245, Administer Per Protocol, RITUXAN is NON-PREFERRED brand. Please indicate why RITUXAN is specifically required (vs. preferred RUXIENCE brand): Other (please enter in comments), Is this product being used for treatment of malignant indication? No New Bag 02/05/2023 12:31 PM EDT 1,000 mg documented in this encounter Care Teams Rent And Miscellaneous Remittance Clerk Relationship Specialty Start Date End Date Arelis Michele MD [address] [place] [address] PCP - General Family Medicine 08/01/18 02/11/24 documented as of this encounter
--- OUTSIDE RECORDS SUMMARY | 2024-04-06 02:27 | XMS_ITS | Encounter Summary ---
[place] [address] Care Team Providers Care Public Address Servicer Name Role Phone Arelis Michele MD Primary Care Provider [phone] Encounter Details Date Type Department Care Team (Latest Contact Info) Description 02/05/2023 Travel Social History Tobacco Use Types Packs/Day [...] 12:00 PM EDT [place] [address] documented as of this encounter Visit Diagnoses Not on filedocumented in this encounter Care Teams Public Address Servicer Relationship Specialty Start Date End Date Arelis Michele MD [address] [place] [address] PCP - General Family Medicine 08/01/18 02/11/24 documented as of this encounter
--- OUTSIDE RECORDS SUMMARY | 2024-04-06 02:27 | XMS_ITS | Clinical Summary ---
Author Organization [facility] [place] [address] Care Team Providers Care Supervisor [facility]at [employer] Name Role Phone Arelis Michele MD Primary Care Provider [phone] Allergies Active Allergy Reactions Criticality Noted Date Comments Calcium High kidney stones Levothyroxine 01/13/2015 Lisinopril 01/13/2015 Dry cough Sulfasalazine (Bulk) 02/14/2021 Nausea, diarrhea, CARRANZA Medications Medication Sig Dispensed Refills Start Date End Date Status CIS Free Text Med - OTC mositurizing eye drops 11/02/2010 Active Additional Information Patient taking differently:OphthalmicDAILY, Reported on 02/05/2023 omeprazole (PRILOSEC) 40 mg capsule Take 40 mg by mouth daily. Active MULTIVITAMIN/IRON/F OLIC ACID (DAILY MULTI ORAL) Take 1 tablet by mouth daily. Active acetaminophen (Tylenol) 500 mg Tablet Take 1,000 mg by mouth every 6 hours as needed. Active cholecalciferol, Vitamin D3, 50 mcg (2,000 unit) Capsule Take 2,000 Units by mouth daily. Active fluticasone (FLONASE) 50 mcg/actuation nasal sprayIndications:Po st-nasal drip 1 spray by Each Nare route 2 times daily. 16 g 12 11/09/2013 Active aspirin 81 mg EC tablet Take 81 mg by mouth daily. Active carvedilol (COREG) 12.5 mg Tablet Take 12.5 mg by mouth daily. 12/26/2015 Active buPROPion (WELLBUTRIN SR OR ZYBAN) 150 mg Tablet Sustained Release 12 hr Take 150 mg by mouth daily. 07/12/2017 Active losartan (COZAAR) 25 mg Tablet Take 25 mg by mouth daily. 07/12/2017 Active metroNIDAZOLE (METROCREAM) 0.75 % Cream as needed. 06/17/2017 Active venlafaxine (EFFEXOR-XR) 150 mg Capsule, Sust. Release 24 hr Take 150 mg by mouth daily. Takes 225 mg daily 05/01/2017 Active levothyroxine (SYNTHROID) 50 mcg Tablet Take 1 tablet by mouth daily. 01/07/2018 Active nitroGLYcerin (NITROSTAT) 0.4 mg Tablet, Sublingual PLACE ONE TABLET UNDER THE TONGUE EVERY 5 MINUTES FOR UP TO 3 DOSES NEEDED FOR CHEST PAIN. IF CHEST PAIN STILL PERSISTS CONTACT 911 1 05/13/2018 Active albuterol 90 mcg/actuation HFA Aerosol Inhaler Inhale 2 puffs into the lungs Every 6 hours as needed. Active benzonatate (TESSALON) 200 mg Capsule Take 1 capsule by mouth 3 times daily as needed for Cough. 30 capsule 09/05/2018 Active clopidogrel (PLAVIX) 75 mg Tablet Take 1 tablet by mouth daily. 90 tablet 3 03/21/2019 Active diclofenac (VOLTAREN) 1 % Gel Apply 4g topically to shoulder up to 4x daily. 100 g 3 04/06/2020 Active Additional Information Patient taking differently: 4 TIMES DAILY PRN, Apply 4g topically to shoulder up to 4x daily., Reported on 09/17/2023 ascorbic acid, vitamin C, (VITAMIN C) 500 mg Tablet, Chewable Take by mouth daily. Active budesonide-formoter oL (Symbicort) 160-4.5 mcg/actuation HFA Aerosol Inhaler Inhale 2 puffs into the lungs 2 times daily. 1 Inhaler 12 08/29/2020 Active isosorbide mononitrate CR (Imdur) 30 mg Tablet Sustained Release 24 hr Take 30 mg by mouth daily. 11/26/2020 Active metoprolol succinate XL (Toprol-XL) 25 mg Tablet Sustained Release 24 hr Take 25 mg by mouth daily. 09/13/2020 Active traZODone (Desyrel) 50 mg Tablet Take 100 mg by mouth nightly. Active amLODIPine (Norvasc) 2.5 mg Tablet Take 2.5 mg by mouth daily. 09/25/2021 Active montelukast (Singulair) 10 mg Tablet TAKE ONE TABLET BY MOUTH EVERY DAY TO SEE IF HELPS WITH BREATHING 11/24/2021 Active atorvastatin (Lipitor) 20 mg Tablet Take 20 mg by mouth daily. 03/21/2022 Active terazosin (Hytrin) 5 mg Capsule Take 5 mg by mouth nightly. 06/02/2022 Active venlafaxine XR (Effexor-XR) 75 mg ER 24 hr capsule Take 75 mg by mouth daily. With the 150 mg Active fluorouraciL (EFUDEX) 5 % Cream Apply topically 2 times daily. 07/09/2023 Active loratadine (Claritin) 10 mg Tablet Take 10 mg by mouth daily. 05/16/2023 Active neomycin-polymyxin- dexamethasone (MAXITROL) 3.5mg/mL-10,000 unit/mL-0.1 % Drops, Suspension Place 1 drop into both eyes 4 times daily. 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 I suspect recent acute worsening of left shoulder pain was from a superimposed orthopedic problem, but will defer to his orthopedist. ?? I will obtain more information concerning his recent imaging to ensure this is not polyradicular. It may be prudent to imaging the plexus if there is worsening or any concern for mass, but this seems unlikely given involvement of upper plexus. I will review images and make a decision. ?? Given that 9 months have elapsed and there is no active changes on EMG, I see little reason to treat with pulse steroids. I discussed that the main treatment at this point is PT to prevent secondary complications such as frozen shoulder and deconditioning. I discussed natural history which is gradual recovery over 1-2 years. He will let me know if anything worsens, in which case I would have to revisit the diagnosis. Cardiomyopathy 03/04/2014 Overview (05/18/2014): ECHO/cardiac catheterization reports in scanned documents SUMMARY: ?? ECHO -> LEFT VH -> cardiomyopathy. RV hypokinetic. Aortic sclerosis without stenosis. Abnormal diastolic indices. Normal pulmonary artery pressure. Normal atria. LVEF 40%. ?? CATH -> Mild irregularities LAD, L circumflex, RCA and NORMAL Left main -> Medical therapy indicated . Multiple new meds added. (Clopidogrel, metoprolol, ASA 81 mg, terazosin, flovent, albuterol). Chronic cough 11/09/2013 Overview (11/09/2013): Orginates in throat; frequent throat clearing SOB (shortness of breath) 11/09/2013 Overview (11/09/2013): With exertion starting Aug 2013 Post-nasal drip 11/09/2013 Burning sensation in eye 04/16/2012 Osteopenia 01/18/2011 Overview (01/18/2011): ?? Osteopenia, DXA at [facility] in 06/2007. ?? Right wrist fracture (1962); ?? Right shoulder fracture (1967). GERD (gastroesophageal reflux disease) 1 Overview (06/01/2012): Hyperlipidemia 01/18/2011 Overview (01/18/2011): Depression 01/18/2011 HTN (hypertension) 01/18/2011 RA (rheumatoid arthritis) Overview (06/01/2012): RF/CCP POSITIVE HISTORY OF PRESENT ILLNESS: Initially seen in the rheumatology clinic in 05/2003 by Ashok Kiran M.D. Reported sudden onset of diffuse pain in all joints especially right wrist and shoulders. He had been treated with oral steroids with improvement and also undergone steroid injections in each shoulder with benefit. Joint stiffness reported to last up to three hours upon initial evaluation. The patient reported with flu-like symptoms in 10/2002; however, noted the following flu he never felt as good as he had prior to his episode. Hospitalized in 1994 for C.diff colitis with colon polyps and underwent a hemicolectomy. He has had no recurrent symptoms. Encounters Date Type Department Care Team Description 01/06/2024 [place] [address] Alice Carney APRN from Last 3 Months Immunizations Name Administration Dates Next Due DTaP 05/08/2012 Influenza (Fluzone HD) Triva lent High Dose 07/22/2017 Influenza Adjunated (FluAd) Trivalent, PF 65yrs+ 07/02/2019 Influenza Trivalent w/Preservative 06/02,06/02/2014,07/01/2013,06/02 Influenza Vaccine, Whole 06/29/2005 Pneumococcal Conjugate (Prevnar 13) 03/09/2013 Pneumococcal Polysaccharide (Pneumovax 23) 11/09/2013,02/15/2004 TD Adult 09/28/2005,07/03/1996 Family History Medical History Relation Comments Cancer Father liver Glaucoma Neg Hx Macular Degeneration Neg Hx Retinal Detachment Neg Hx Relation Status Comments Father Social History Tobacco Use Types Packs/Day Years Used Date Smoking Tobacco: Never Smokeless Tobacco: Never Tobacco Cessation:Counseling Given: Not Answered Alcohol Use Standard Drinks/Week Comments No 0 (1 standard drink = 0.6 oz pur e alcohol) Sex and Gender Information Value Date Recorded Sex Assigned at Not on file Gender Identity Not on file Sexual Orientation Not on file Last Filed Vital Signs Vital Sign Reading Time Taken Comments Blood Pressure 149/71 09/17/2023 11:00 AM EST Pulse 66 09/17/2023 11:00 AM EST Temperature 37.1 ??C (98.7 ??F) 09/17/2023 11:[address] Respiratory Rate 18 09/17/2023 11:00 AM EST Oxygen Saturation 96% 09/17/2023 11:00 AM EST Inhaled Oxygen Concentration - - Weight 98 kg (216 lb) 09/17/2023 11:00 AM EST Height 180.3 cm (5' 11) 05/28/2023 10:50 AM EDT Body Mass Index 30.13 05/28/2023 10:50 AM EDT Plan of Treatment Upcoming Encounters Date Type Department Care Team (Late st Contact Info) Description 04/28/2024 12:00 PM EDT [place] [address] Health Maintenance Due Date Last Done Comments CT Colonography 1948 FIT DNA 1948 FIT 1950 Sigmoidoscopy 1950 Hepatitis C Screening 1966 Tdap adult 1967 Zoster vaccine (1 of 2) 1998 Advance Directive 2003 Tetanus vaccine 05/08/2022 05/08/2012, 09/03, 07/03/1996 Colonoscopy 09/30/2022 09/30/2019, 09/03, 09/30/2019, Additional history exists Colorectal Cancer Screening 09/30/2022 Covid-19 Vaccine (2022-10 4 season) 2023 08/21/2023, 07/06/2022, 12/26/2021, Additional history exists Influenza (Flu) vaccine (1 o f 1 - Influenza standard series) 05/03/2024 07/02/2019, 07/22/2017, 06/02/2015, Additional history exists Sigmoidoscopy (10 year) with FIT yearly 09/30/2029 09/30/2019, 09/30/2019, 09/30/2019, Additional history exists Pneumoccocal Vaccine: 65+ Completed 2013, 03/09/2013, 02/15/2004 Procedures Procedure Name Priority Date/Time Associated Diagnosis Comments COLONOSCOPY Routine 09/30/2019 9:26 AM EST from Last 3 Months or Most Recently Relevant to Health Maintenance Results * COLONOSCOPY (09/30/2019 9:26 AM EST) COLONOSCOPY [facility] Endoscopy Procedure Date: 09/30/2019 9:26 AM ? Patient Name: Wesly Lacey ? Date of : 1950 ? Age: 68 ? Order #: [id number] ? Instrument Name: [id number] ? Procedure: ? Colonoscopy Indications: ? High risk colon cancer surveillance: ? Personal history of colonic polyps Providers: ? Tara Greene, ? RN, Uriah Smith Referring : ?Arelis Michele MD Medicines: ? Propofol per Anesthesia Complications: ? No immediate complications. Procedure: ? Pre-Anesthesia Assessment: ? - Prior to the procedure, a History ? and Physical was performed, and ? patient medications and allergies ? were reviewed. The patient is ? competent. The risks and benefits of ? the procedure and the sedation ? options and risks were discussed with ? the patient. All questions were ? answered and informed consent was ? obtained. Patient identification and ? proposed procedure were verified by ? the physician in the pre-procedure ? area. Mental Status Examination: ? alert and oriented. Airway ? Examination: normal oropharyngeal ? airway and neck mobility. Respiratory ? Examination: clear to auscultation. ? CV Examination: normal. Prophylactic ? Antibiotics: The patient does not ? require prophylactic antibiotics. ? Prior Anticoagulants: The patient has ? taken no previous anticoagulant or ? antiplatelet agents. ASA Grade ? Assessment: III - A patient with ? severe systemic disease. After ? reviewing the risks and benefits, the ? patient was deemed in satisfactory ? condition to undergo the procedure. ? The anesthesia plan was to use ? monitored anesthesia care (MAC). ? Immediately prior to administration ? of medications, the patient was ? re-assessed for adequacy to receive ? sedatives. The heart rate, ? respiratory rate, oxygen saturations, ? blood pressure, adequacy of pulmonary ? ventilation, and response to care ? were monitored throughout the ? procedure. The physical status of the ? patient was re-assessed after the ? procedure. ? The procedure, indications, benefits, ? risks and alternatives were explained ? to the patient. Specifically ? discussed were potential ? complications including, but not ? limited to, bleeding, perforation, ? infection, missing a cancer, and ? adverse medication reactions. The ? patient was placed in the left ? lateral decubitus position, and a ? digital rectal exam was performed. ? The Colonoscope was inserted in the ? anus and under direct visualization, ? advanced to the cecum, identified by ? appendiceal orifice and ileocecal ? valve. Careful inspection was made as ? the colonoscope was withdrawn. The ? patient tolerated the procedure well. ? The quality of the bowel preparation ? was adequate. ? Findings: ? A 5 mm polyp was found in the ascending colon. The ? polyp was sessile. The polyp was removed with a cold ? snare. Resection and retrieval were complete. ? A 5 mm polyp was found in the transverse colon. The ? polyp was sessile. The polyp was removed with a cold ? snare. Resection and retrieval were complete. ? Two sessile polyps were found in the recto-sigmoid ? colon. The polyps were 2 to 3 mm in size. These ? polyps were removed with a cold snare. Resection and ? retrieval were complete. ? A small scar was found in the transverse colon. The ? scar tissue was healthy in appearance. ? Many small-mouthed diverticula were found in the ? sigmoid colon. ? There was evidence of a prior end-to-end colo-colonic ? anastomosis in the recto-sigmoid colon. This was ? patent and was characterized by healthy appearing ? mucosa. ? The retroflexed view of the distal rectum and anal ? verge was normal and showed no anal or rectal ? abnormalities. ? Moderate Sedation: ? Not applicable - See Anesthesia documentation Impression: ?- One 5 mm polyp in the ascending ? colon, removed with a cold snare. ? Resected and retrieved. ? - One 5 mm polyp in the transverse ? colon, removed with a cold snare. ? Resected and retrieved. ? - Two 2 to 3 mm polyps at the ? recto-sigmoid colon, removed with a ? cold snare. Resected and retrieved. ? - Scar in the transverse colon. ? - Diverticulosis in the sigmoid colon. ? - Patent end-to-end colo-colonic ? anastomosis, characterized by healthy ? appearing mucosa. ? - The distal rectum and anal verge ? are normal on retroflexion view. Recommendation: ?- Discharge patient to home. ? - Resume previous diet. ? - Await pathology results. ? - Repeat colonoscopy in 3 years for ? surveillance based on pathology ? results. ? Attending Participation: ? I personally performed the entire procedure. ? Solitario Moody, 09/30/2019 10:17:22 AM Number of Addenda: 0 Note Initiated On: 09/30/2019 9:26 AM PROVATION 09/30/2019 9:26 AM EST Arelis Michele MD GENERAL SURGICAL ORD ERABLES PROVATION from Last 3 Months or Most Recently Relevant to Health Maintenance Advance Directives Documents on File Type Date Recorded Patient [employer] Faculty Member Expl anation Personal College Or [employer] Faculty Member 08/08/2018 4:20 PM abigail verito and carroll lacey * Full Code (Latest Code Status on File) Date Activated Date Inactivated Comments 03/20/2019 1:12 PM 03/21/2019 11:45 AM Question Answer Comments Does patient have capacity to make decision: Yes * Full Code Date Activated Date Inactivated Comments 03/20/2019 10:30 AM 03/20/2019 1:12 PM Question Answer Comments Does patient have capacity to make decision: Yes Care Teams Supervisor [facility]at [facility] Relationship Specialty Start Date End Date Arelis Michele MD [address] [place] [address] PCP - General Family Medicine 02/12/24
--- OUTSIDE RECORDS SUMMARY | 2024-04-06 02:27 | XMS_ITS | Encounter Summary ---
[place] [address] Care Team Providers Care Medical Record Librarians Teacher Name Role Phone Arelis Michele MD Primary Care Provider [phone] Encounter Details Date Type Department Care Team (Latest Contact Info) Description 05/17/2023 Transcribe [place] [id number] Arelis Michele MD [address] [place], [place] [id number] Hypothyroidism, unspecified type; Hyperlipidemia, unspecified hyperlipidemia type; Routine general medical examination at a health care facility Social History Tobacco Use Types Packs/Day Years [...] 12:00 PM EDT [place] [id number] Scheduled Orders Name Type Priority Associated Diagnoses Orde r Schedule TSH Lab Routine Hypothyroidism, unspecified type Hyperlipidemia, unspecified hyperlipidemia type Routine general medical examination at a health care facility Expected: 05/17/2023 (Approximate), Expires: 05/17/2024 T4, free Lab Routine Hypothyroidism, unspecified type Hyperlipidemia, unspecified hyperlipidemia type Routine general medical examination at a health care facility Expected: 05/17/2023 (Approximate), Expires: 05/17/2024 PSA (Ultrasensitive), total and free Lab Routine Hypothyroidism, unspecified type Hyperlipidemia, unspecified hyperlipidemia type Routine general medical examination at a health care facility Expected: 05/17/2023 (Approximate), Expires: 05/17/2024 Lab Use Only, Fax Request Lab Routine Hypothyroidism, unspecified type Hyperlipidemia, unspecified hyperlipidemia type Routine general medical examination at a health care facility Expected: 05/17/2023 (Approximate), Expires: 05/17/2024 documented as of this encounter Visit Diagnoses Diagnosis Hypothyroidism, unspecified type Hyperlipidemia, unspecified hyperlipidemia type Routine general medical examination at a health care facility documented in this encounter Care Teams Medical Record Librarians Teacher Relationship Specialty Start Date End Date Arelis Michele MD [address] [place] [address] PCP - General Family Medicine 08/01/18 02/11/24 documented as of this encounter
--- OUTSIDE RECORDS SUMMARY | 2024-04-06 02:28 | XMS_ITS | Encounter Summary ---
Author Organization Formerly [facility] Demetri [facility] [place] [place] [address] Care Team Providers Care Textile Broker Name Role Phone Arelis Michele MD Primary Care Provider [phone] Reason for Visit * Reason Comments Follow-up Encounter Details Date Type Department Care Team (Late st Contact Info) Description 10/17/2021 9:00 AM EST Office [place] [address] Alice Carney NUCLEAR REACTOR ENGINEER [facility] [place] [address] Rheumatoid arthritis with positive rheumatoid factor, involving unspecified site; High risk medication use Social History Tobacco [...] Sign Reading Time Taken Comments Blood Pressure 105/65 10/17/2021 8:46 AM EST Pulse 93 10/17/2021 8:46 AM EST Temperature 36.5 ??C (97.7 ??F) 10/17/2021 8:46 AM ES T Respiratory Rate 18 10/17/2021 8:46 AM EST Oxygen Saturation 96% 10/17/2021 8:46 AM EST Inhaled Oxygen Concentration - - Weight 95.8 kg (211 lb 4.8 oz) 10/17/2021 8:46 A M EST reported Height 179 cm (5' 10.47) 10/17/2021 8:46 AM EST Body Mass Index 29.91 10/17/2021 8:46 AM EST documented in this encounter Patient Instructions * Patient Instructions* Alice Carney APRN - 10/17/2021 9:50 AM EST Start Arava (leflunomide) 10 mg daily in the morning. If tolerated then increase to 20 mg after twoweeks (eg, no diarrhea or GI upset). Labs every month x 3 then every 3 months (at [facility]). CBC = complete blood count (red and white blood cells, platelets) CMP = comprehensive metabolic panel (liver function, kidney function, electrolytes) CRP = inflammatory marker ESR (aka SED) = inflammatory marker You should expect to hear from me re lab results so please reach out to me if you do not. You cannot be sure that I received lab results unless you hear from me. I will let you know when I have information about Rituxan through the company. documented in this encounter Progress Notes * Alice Carney APRN - 10/17/2021 9:00 AM EST Rheumatology Follow-up Visit CC: Wesly Ybarra is a 71 y.o.male presenting for ongoing evaluation and management of seropositive rheumatoid arthritis. I have been following him since 02/14/2021. Last OV: 08/18/2021 (Angelika, telephone visit) Rheumatology History: Seropositive Rheumatoid Arthritis: 05/2002 (approx) [...] including no worsening of SOBor fluid overload. I spoke with ASHLEY Wise, in [facility] infusion lab this morning -- last infusion was in 2017 for name brand Rituximab. ?? Orencia tried [id number] and stopped due to lack of efficacy [...] 1000 mg IV Q16W infusion resumed at [facility] -- next infusion cancelled due to unaffordable [id number] cost. ?? Plan was to start Xeljanz 07/2021 given limited options available to patient for treatment givenmedical history and co-morbidities after communication via ED with Wesly Munoz MD, in cardiology. He never started it due to concerns about black box warnings. Treatment considerations: 02/14/2021 Denied hx blood clots. + Hx diverticulitis with 18 bowel resected. + CMP. SOB/ZEPEDA -- multifactorial as noted elsewhere. He has not tried Humira or Remicade (concern for CHF), Actemra (contraindicated), JAKs. Cannot take NSAID per cardiology CAD and CMP: [facility] Cardiology OV notes from 09/27/2020 (Wesly Munoz MD) reviewed 02/28/2021. ?? CAD: s/p CABG (Patient Denies!) and s/p mid LAD stent March 2019. Additional workup with CPET planned at [facility] for eval of ongoing SOB (Patient says [...] activity. Interval History: Current treatment for RA: None Mr. Ybarra did very well with Ruxience [...] is recovered well. He met his new chemist water purification at [facility] 09/2021 and he is pleased with her [...] I discussed this case briefly with his electrical cad technician (though he did not review prior notes [...] with fluid overload. Note that on 03/21/2021 [facility] Rheumatology nurse confirmed with ASHLEY Wise, that [facility] per their protocol, and in [...] Denies fevers, chills, night sweats, severe illness, hospitalizations. Normal appetite, stable weight. HEENT: Denies acute visual changes. See Interval History Skin/nails: Denies rash Cardiovascular: Denies chest pain, palpitations. + ZEPEDA with minimal activity. Pulmonary: Denies hemoptysis. + SOB at rest at time. Gastrointestinal: Denies abdominal pain, nausea, vomiting, bowel [...] resection Osteoporosis with pathologic vertebral fracture per [facility] notes but not on file at [facility]. Physical Examination: Patient Vitals for the past 24 hrs: Temp Pulse Resp BP SpO2 10/17/21 0846 36.5 ??C (97.7 ??F) 93 18 105/65 96 % General: Well developed, well nourished, alert and oriented male in no acute distress HEENT: No scleral injection, no icterus Neck: Supple, no lymphadenopathy Heart: Regular rate and rhythm, no murmur/rub/gallop Lungs: CTA b/l with mild decreased BS on R c/w prior visit Neuro: Gait even and co-ordinated. Speech clearly articulated. No obvious deficits. Skin: no rheumatologic rashes Extremities: Hands: L 2nd and 3rd mcp synovitis, none on the left, scattered mcp pip ttp; + L MCP compression tenderness Wrists: No synovitis, tenderness, swelling Elbows: no tenderness or swelling Shoulders: Per prior in-person visit not assessed today: Reduced ROM in all planes L>R, anteriorand posterior ttp on the L, + empty can on the L DATA: Labs: [facility] 06/07/2021: unremarkable CBC, CMP, ESR, CRP. Negative Hepatitis B/C and TB Quant Gold screening. [facility] 03/2021: unremarkable CBC, CMP ASSESSMENT/RECOMMENDATIONS: Seropositive rheumatoid arthritis: Currently symptomatic without treatment after marked improvementwith resumption of Rituxan (received Ruxience) 03/2021. He could not continue with RTX due to [id number] cost. Options for treatment are limited due to co-morbidities. TNFi not preferred due to cardiomyopathy with reduced EF and ongoing dyspnea, Actemra contrainidicated due history of diverticulitis with bowel resection, Anakinra not preferred due to low liklihood that it would be effective. RITA inhibitor (Xeljanz) approved by insurance but he understandably does not want to take it to due CVrisk since he has CAD and cardiomyopathy (followed by cardiology and managed with a atorvastatin, me toprolol, aspirin, and isosorbide). Methotrexate prescribed 08/2021 but stopped after 1 dose due toCOVID infection and he is concerned about taking it as he attributes his dyspnea to this medication(etiology of dyspnea is unclear). He will start Arava to see if that is helpful (reviewed SE/AE/dosing/length of time to onset/monitoring) and pursue [employer] patient assistance for Rituxan in the meantime. Osteoporosis with history of pathologic vertebral fracture: DEXA ordered at 02/28/2021 office visit to be done at [facility] and not yet done. Continue with vit d supplementation, avoiding calcium supplementation due to kidney stones. Continue with weightbearing activity as tolerated. I recommend primary care follow up at this point. Follow up telephone visit scheduled 2 months. Patient Instructions Start Arava (leflunomide) 10 mg daily in the morning. If tolerated then increase to 20 mg after twoweeks (eg, no diarrhea or GI upset). Labs every month x 3 then every 3 months (at [facility]). CBC = complete blood count (red and white blood cells, platelets) CMP = comprehensive metabolic panel (liver function, kidney function, electrolytes) CRP = inflammatory marker ESR (aka SED) = inflammatory marker You should expect to hear from me re lab results so please reach out to me if you do not. You cannot be sure that I received lab results unless you hear from me. I will let you know when I have information about Rituxan through the company. Minutes spent today associated with the office visit including during the visit, chart review, and documentation: 45 Alice Carney APRN CC: Arelis Michele MD documented in this encounter Plan of Treatment Upcoming Encounters Date Type Department Care Team (Late st Contact Info) Description 04/28/2024 12:00 PM EDT Appointment [place] [address] documented as of this encounter Visit Diagnoses Diagnosis Rheumatoid arthritis with positive rheumatoid factor, involving unspecified site High risk medication use Encounter for long-term (current) use of other medications documented in this encounter Care Teams Textile Broker Relationship Specialty Start Date End Date Arelis Michele MD [address] [place] [address] PCP - General Family Medicine 08/01/18 02/11/24 documented as of this encounter
--- OUTSIDE RECORDS SUMMARY | 2024-04-06 02:28 | XMS_ITS | Encounter Summary ---
[place] [address] Care Team Providers Care Failure Analysis Engineer Name Role Phone Arelis Michele MD Primary Care Provider [phone] Encounter Details Date Type Department Care Team (Late st Contact Info) Description 04/21/2020 Telephone [place] [address] Himanshu Castellon Social History Tobacco Use Types Packs/Day Years [...] encounter Miscellaneous Notes * Telephone Encounter - Himanshu Castellon - 04/21/2020 12:06 PM EDT LMOAM X1 to schedule 3 month f/u with Dianne Norton. documented in this encounter Plan of Treatment Upcoming Encounters Date Type Department Care Team (Late st Contact Info) Description 04/28/2024 12:00 PM EDT Appointment [place] [phone] documented as of this encounter Visit Diagnoses Not on filedocumented in this encounter Care Teams Failure Analysis Engineer Relationship Specialty Start Date End Date Arelis Michele MD [address] [place] [address] PCP - General Family Medicine 08/01/18 02/11/24 documented as of this encounter
--- OUTSIDE RECORDS SUMMARY | 2024-04-06 02:28 | XMS_ITS | Encounter Summary ---
Author Organization [facility] [place] [address] Care Team Providers Care Customer Assistance Associate Name Role Phone Arelis Michele MD Primary Care Provider [phone] Encounter Details Date Type Department Care Team (Late st Contact Info) Description 03/24/2021 External Results [place] [address] Alice Carney APRN [facility] [place] [address] [place] [address] Social History Tobacco Use Types Packs/Day Years [...] 12:00 PM EDT Appointment [place] [phone] documented as of this encounter Procedures Procedure Name Priority Date/Time Associated Diagnosis Comments INFUSION THERAPY Routine 03/24/2021 documented in this encounter Results * Infusion therapy (03/24/2021) Alice Carney APRN INFUSION - IV ORDERA BLES documented in this encounter Visit Diagnoses Not on filedocumented in this encounter Care Teams Customer Assistance Associate Relationship Specialty Start Date End Date Arelis Michele MD [address] [place] [address] PCP - General Family Medicine 08/01/18 02/11/24 documented as of this encounter
--- OUTSIDE RECORDS SUMMARY | 2024-04-06 02:28 | XMS_ITS | Encounter Summary ---
[place] [address] Care Team Providers Care Recreation Facility Manager Name Role Phone Arelis Michele MD Primary Care Provider [phone] Reason for Visit * Reason Onset Date Comments Labs Only 04/11/2020 Encounter Details Date Type Department Care Team (Late st Contact Info) Description 04/11/2020 Tele[place] [phone] Lionel Rabago RN Labs Only Social History Tobacco Use Types Packs/Day Years [...] encounter Miscellaneous Notes * Telephone Encounter - Lionel Rabago RN - 04/19/2020 8:19 AM EDT Images from the original note were not included. Dianne Norton APRN P [facility] Rheumatology Nurse ?? Please tell patients recent labs look good, thank you * Telephone Encounter - Lionel Rabago RN - 04/11/2020 3:02 PM EDT Dianne Norton APRN Sent: Jeimy April 10, 2020 ??9:07 PM To: [facility] Rheumatology Nurse ?? Message Please relay results to pt. Red blood cells show changes likely related to his pulmonary issues. Please remind him he needs to schedule appt with them. Triglycerides a bit high. Other labs look good. THank you ----- Message ----- From: Kevin, Lab In [facility] Sent: 04/06/2020 ?? 4:37 PM EDT To: Dianne Norton APRN Left with call back number provided. documented in this encounter Plan of Treatment Upcoming Encounters Date Type Department Care Team (Late st Contact Info) Description 04/28/2024 12:00 PM EDT [place] [address] documented as of this encounter Visit Diagnoses Not on filedocumented in this encounter Care Teams Recreation Facility Manager Relationship Specialty Start Date End Date Arelis Michele MD [address] [place] [address] PCP - General Family Medicine 08/01/18 02/11/24 documented as of this encounter
--- OUTSIDE RECORDS SUMMARY | 2024-04-06 02:28 | XMS_ITS | Encounter Summary ---
Author Organization [facility] [place] [address] Care Team Providers Care Vacuum Form Operator Name Role Phone Arelis Michele MD Primary Care Provider [phone] Encounter Details Date Type Department Care Team (Late st Contact Info) Description 06/25/2021 Notes [place] [address] Alice Carney APRN [facility] [place] [address] [place] [address] Social History Tobacco Use Types Packs/Day Years Used Date Smoking Tobacco: Never Smokeless Tobacco: Never Alcohol Use Standard Drinks/Week Comments No 0 (1 standard drink = 0.6 oz pur e alcohol) Sex and Gender Information Value Date Recorded Sex Assigned at Not on file Gender Identity Not on file Sexual Orientation Not on file documented as of this encounter Progress Notes * Alice Carney APRN - 06/25/2021 4:55 PM EDT Lab results, patient letter re Rinovoq plan, and lab results routed to PCP. documented in this encounter Plan of Treatment Upcoming Encounters Date Type Department Care Team (Late st Contact Info) Description 04/28/2024 12:00 PM EDT Appointment [place] [address] documented as of this encounter Visit Diagnoses Not on filedocumented in this encounter Care Teams Vacuum Form Operator Relationship Specialty Start Date End Date Arelis Michele MD [address] [place] [address] PCP - General Family Medicine 08/01/18 02/11/24 documented as of this encounter
--- OUTSIDE RECORDS SUMMARY | 2024-04-06 02:28 | XMS_ITS | Encounter Summary ---
[place] [address] Care Team Providers Care Auto Parts Handler Name Role Phone Arelis Michele MD Primary Care Provider [phone] Reason for Visit * Reason Onset Date Comments Follow-up 07/12/2021 Encounter Details Date Type Department Care Team (Late st Contact Info) Description 07/12/2021 Telephone [place] [phone] José Luis Mccabe RN Follow-up Social History Tobacco Use Types Packs/Day Years [...] encounter Miscellaneous Notes * Telephone Encounter - José Luis Mccabe RN - 07/12/2021 7:51 PM EST Billie from [facility] calls to advise Wesly cancelled Infusion appointment and advised her that he has discussed with his provider and they have another medication plan. Billie would like a call back to close out his orders if another plan has been made. Notes indicate possibly Xeljanz or Rinvoq. Will check with provider to be sure ok to close out infusion orders for Wesly. Alice Carney, CANDY STARCH MOLD PRINTER sent to José Luis Mccabe RN Caller: Unspecified (Yesterday, ??1:12 PM) Yes, she can close out the infusion orders. Thank you. Called and advised Billie to cancel orders per GENERATING PLANT SUPERINTENDENTAngelika. documented in this encounter Plan of Treatment Upcoming Encounters Date Type Department Care Team (Late st Contact Info) Description 04/28/2024 12:00 PM EDT [place]ointment [place] [address] documented as of this encounter Visit Diagnoses Not on filedocumented in this encounter Care Teams Auto Parts Handler Relationship Specialty Start Date End Date Arelis Michele MD [address] [place] [address] PCP - General Family Medicine 08/01/18 02/11/24 documented as of this encounter
--- OUTSIDE RECORDS SUMMARY | 2024-04-06 02:28 | XMS_ITS | Encounter Summary ---
[place] [address] Care Team Providers Care Die Trouble Shooter Name Role Phone Arelis Michele MD Primary Care Provider [phone] Reason for Visit * Reason Onset Date Comments Other 01/04/2021 Encounter Details Date Type Department Care Team (Late st Contact Info) Description 01/04/2021 Telephone [place] [address] Cristian Bhandari RN Other Social History Tobacco Use Types Packs/Day Years [...] encounter Miscellaneous Notes * Telephone Encounter - Cristian Bhandari RN - 01/04/2021 1:13 PM EDT RTC to Billie at [facility] infusion and she reports that she will need a dc Orencia order faxed to [phone]. I let her know that I will send this request to Dianne Norton. documented in this encounter Plan of Treatment Upcoming Encounters Date Type Department Care Team (Late st Contact Info) Description 04/28/2024 12:00 PM EDT Appointment [place] [address] documented as of this encounter Visit Diagnoses Not on filedocumented in this encounter Care Teams Die Trouble Shooter Relationship Specialty Start Date End Date Arelis Michele MD [address] [place] [address] PCP - General Family Medicine 08/01/18 02/11/24 documented as of this encounter
--- OUTSIDE RECORDS SUMMARY | 2024-04-06 02:28 | XMS_ITS | Encounter Summary ---
Author [facility] [place] [address] Care Team Providers Care Sales Supervisor Name Role Phone Arelis Michele MD Primary Care Provider [phone] Reason for Visit * Treatment/Therapy Plan Authorization (Routine) - Closed Specialty Diagnoses / Procedures Referred By Azam corbett Referred To Contact Diagnoses Rheumatoid arthritis, involving unspecified site, unspecified whether rheumatoid factor present Procedures inf Alice Carney, IMPORTER EXPORTER [facility] [place] [address] [facility] Med Infusion [address] [place] [id number] Referral ID Status Reason Start Date Expiration Date Visits Re quested Visits Authorized [id number] Closed 12/08/2021 12/08/2022 99 99 Encounter Details Date Type Department Care Team (Latest Contact Info) Description 02/13/2022 9:22 AM EDT - 02/13/2022 11:59 PM EDT Hospital Encounter [place] [address] Rheumatoid arthritis, involving unspecified site, [...] Sign Reading Time Taken Comments Blood Pressure 133/71 02/13/2022 9:32 AM EDT Pulse 62 02/13/2022 9:32 AM EDT Temperature 36.5 ??C (97.7 ??F) 02/13/2022 9:32 AM ED T Respiratory Rate - - Oxygen Saturation 97% 02/13/2022 9:32 AM EDT Inhaled Oxygen Concentration - - Weight 96 kg (211 lb 11.2 oz) 02/13/2022 9:32 AM EDT Height - - Body Mass Index 29.97 10/17/2021 8:46 AM EST documented in this encounter Medications at Time of Discharge Medication Sig Dispensed Refills Start Date End Date amLODIPine (Norvasc) 2.5 mg Tablet Take 2.5 [...] mouth daily. fluticasone (FLONASE) 50 mcg/actuation nasal sprayIndications:Post -nasal drip 1 spray by Each Nare route 2 times daily. 16 g 12 11/09/2013 cholecalciferol, Vitamin D3, 50 mcg (2,000 unit) Capsule Take 2,000 Units by mouth daily. acetaminophen (Tylenol) 500 mg Tablet Take 1,000 mg by mouth every 6 hours as needed. omeprazole (PRILOSEC) 40 mg capsule Take 40 mg by mouth daily. MULTIVITAMIN/IRON/FOL IC ACID (DAILY MULTI ORAL) Take 1 tablet by mouth daily. CIS Free Text Med - OTC mositurizing eye drops 11/02/2010 leflunomide (Arava) 10 mg Tablet 1 tabs po qam x 14 days then increase to 2 tabs po qam if tolerated (no diarrhea or GI upset). Contact rheumatology for refills (advise re dose you are taking). 60 tablet 10/17/2021 06/05/2022 folic acid (Folvite) 1 mg Tablet Take 1 tablet by mouth daily. 90 tablet 3 08/18/2021 02/05/2023 venlafaxine (EFFEXOR) 75 mg Tablet Take 75 mg by mouth daily. 02/05/2023 atorvastatin (LIPITOR) 40 mg Tablet Take 1 tablet by mouth daily. 90 tablet 3 09/15/2019 06/05/2022 methylPREDNISolone (MEDROL) 4 mg Tablet Take 0.5 tablets by mouth daily. 45 tablet 02/28/2016 09/17/2023 terazosin (HYTRIN) 1 mg capsule Take 1 mg by mouth nightly. 06/05/2022 temazepam (RESTORIL) 30 mg capsule 30 mg, PO, QHS 11/02/2010 06/05/2022 documented as of this encounter Progress Notes * Anel Anaya RN - 02/13/2022 11:03 AM EDT INFUSION THERAPY ADMINISTRATION NOTES DIAGNOSIS: 1. Rheumatoid arthritis, involving unspecified site, unspecified whether rheumatoid factor present REASON FOR VISIT: Rituxan infusion every 4 months SUBJECTIVE: Offers no complaints. Patient states that he feels well today. His last infusion was last year at [facility], he states that he tolerated well. OBJECTIVE: Confirmed with Alice Carney APRN, Dr. Carney that patients last infusion was last year at [facility]. OK to continue with today's infusion, per Alice Zhong APRN. VITALS: BP 133/71 Pulse 62 Temp 36.5 ??C (97.7 ??F) Wt 96 kg (211 lb 11.2 oz) SpO2 97% BMI 29.97 kg/m?? IF PAIN >5, INTERVENTION AND EFFECTIVENESS: na IV ACCESS: Peripheral IV Line - Single Lumen 02/13/22 1145 basilic vein (medial side of arm), right 24 gauge;3/4 in length (Active) HYDRATION: N/A ANTIEMETICS/PREMEDS, Methylprednisolone 100 mg IVP @ 1050 to Tylenol 650 mg PO @ 1040 Loratadine 10 mg PO @ 1040 Patient identification and orders checked against actual dose given at bedside by Anel Anaya RN. TREATMENT Rituxan 1000 mg IV @ 1123 Administration times: See OCT 31 dosing schedule used. REACTIONS None. ASSESSMENT: Tolerated infusion well. PLAN: Return to clinic on 06/05/2022. documented in this encounter Plan of Treatment Upcoming Encounters Date Type Department Care Team (Late st Contact Info) Description 04/28/2024 12:00 PM EDT Appointment [place] [address] documented as of this encounter Visit Diagnoses Diagnosis Rheumatoid arthritis, involving unspecified site, unspecified whether rheumatoid factor present documented in this encounter Administered Medications Inactive Administered Medications - up to 3 most recent administrations Medication Order MAR Action Action Date Dose Rate Site acetaminophen (Tylenol) tablet 650 mg 650 mg, Oral, ONCE, 1 dose, On Sat02/13/22 at 1100, Maximum dose of acetaminophen is 4,000 mg from all sources in 24 hours, Routine Given 02/13/2022 10:40 AM EDT 650 mg loratadine (Claritin) tablet 10 mg 10 mg, Oral, ONCE, 1 dose, On Sat02/13/22 at 1100, Routine Given 02/13/2022 10:40 AM EDT 10 mg methylPREDNISolone sod succ (pf) (SOLU-Medrol) (125 mg/2 mL) injection 100 mg 100 mg, Intravenous, ONCE, 1 dose, On Sat02/13/22 at 1100 Given 02/13/2022 10:50 AM EDT 100 mg riTUXimab (Rituxan) 1,000 mg in sodium chloride 0.9% 500 mL infusion 1,000 mg, Intravenous, ONCE, 1 dose, On Sat02/13/22 at 1130, Administer per protocol., RITUXAN is NON-PREFERRED brand. Please indicate why RITUXAN is specifically required (vs. preferred RUXIENCE brand): Other (please enter in comments) New Bag 02/13/2022 11:23 AM EDT 1,000 mg documented in this encounter Care Teams Sales Supervisor Relationship Specialty Start Date End Date Arelis Michele MD [address] [place] [address] PCP - General Family Medicine 08/01/18 02/11/24 documented as of this encounter
--- OUTSIDE RECORDS SUMMARY | 2024-04-06 02:28 | XMS_ITS | Encounter Summary ---
Author Organization [facility] [place] [address] Care Team Providers Care Paving Foreman Name Role Phone Arelis Michele MD Primary Care Provider [phone] Reason for Referral * Diagnostic Test (Routine) - Closed Specialty Diagnoses / Procedures Referred By Contac t Referred To Contact Radiology Diagnoses ZEPEDA (dyspnea on exertion) Diaphragm paralysis Procedures CT Chest wo Contrast (Generic) Steven Soliz MD [facility] [place] [address] [facility] [place] [address] Referral ID Status Reason Start Date Expiration Date V isits Requested Visits Authorized [id number] Closed Specialty Service Requested 05/23/2020 11/20/2021 1 1 Reason for Visit * Diagnostic Test (Routine) - Closed Specialty Diagnoses / Procedures Referred By Contac t Referred To Contact Radiology Diagnoses ZEPEDA (dyspnea on exertion) Diaphragm paralysis Procedures CT Chest wo Contrast (Generic) Steven Soliz MD [facility] [place] [address] [facility] [place] [address] Referral ID Status Reason Start Date Expiration Date V isits Requested Visits Authorized [id number] Closed Specialty Service Requested 05/23/2020 11/20/2021 1 1 Encounter Details Date Type Department Care Team (Latest Contact Info) Description 08/29/2020 11:37 AM EST - 08/29/2020 12:40 PM EST Hospital Encounter CT Scan at [facility] [place] [address] Steven Soliz MD [facility] [place] [address] ZEPEDA (dyspnea on exertion); Diaphragm paralysis Discharge Disposition: Home Social History Tobacco Use Types Packs/Day Years Used Date Smoking Tobacco: Never Smokeless Tobacco: Never Alcohol Use Standard Drinks/Week Comments No 0 (1 standard drink = 0.6 oz pur e alcohol) Sex and Gender Information Value Date Recorded Sex Assigned at Not on file Gender Identity Not on file Sexual Orientation Not on file documented as of this encounter Medications at Time of Discharge Medication Sig Dispensed Refills Start Date End Date ascorbic acid, vitamin C, (VITAMIN C) 500 [...] Med - OTC mositurizing eye drops 11/02/2010 venlafaxine (EFFEXOR) 75 mg Tablet Take 75 mg by mouth daily. 02/05/2023 atorvastatin (LIPITOR) 40 mg Tablet Take 1 tablet by mouth daily. 90 tablet 3 09/15/2019 06/05/2022 rituximab (RITUXAN IV) Inject into the vein. 08/18/2021 methylPREDNISolone (MEDROL) 4 mg Tablet Take 0.5 tablets by mouth daily. 45 tablet 02/28/2016 09/17/2023 terazosin (HYTRIN) 1 mg capsule Take 1 mg by mouth nightly. 06/05/2022 albuterol (PROVENTIL HFA;VENTOLIN HFA) 90 mcg/actuation inhaler Inhale 2 puffs into the lungs every 4 hours as needed. Use with spacer 12/08/2021 temazepam (RESTORIL) 30 mg capsule 30 mg, PO, QHS 11/02/2010 06/05/2022 documented as of this encounter Plan of Treatment Upcoming Encounters Date Type Department Care Team (Late st Contact Info) Description 04/28/2024 12:00 PM EDT [place] [address] documented as of this encounter Procedures Procedure Name Priority Date/Time Associated Diagnosis Comments CT CHEST WO CONTRAST (GENERIC) Routine 08/29/2020 12:29 PM EST ZEPEDA (dyspnea on exertion) Diaphragm paralysis documented in this encounter Results * CT Chest wo Contrast (Generic) (08/29/2020 12:29 PM EST) Anatomical Region Laterality Modality Chest Computed Tomogra phy Impressions 08/29/2020 5:15 PM EST 1. ??The central airways are patent and normal in caliber without evidence of excessive dynamic airway collapse. 2. ??No focal airspace opacity or findings suggestive of interstitial lung disease. 3. ??Mild bronchial wall thickening and mild air trapping. 4. ??Stable elevation of the right hemidiaphragm resulting in partial right lower lobe atelectasis. 5. ??Small hiatal hernia. I have personally reviewed the image(s) and the resident's interpretation and agree with the findings, Parisa Alejandro MD at 08/29/2020 5:15 PM Thank you for letting us participate in the care of this patient. For questions regarding this report, please contact the number below. ? Narrative 08/29/2020 5:15 PM EST EXAMINATION: CT CHEST WO CONTRAST (GENERIC) CLINICAL HISTORY: Shortness of breath please perform dynamic inspiratory/expiratory cuts through central airways to evaluate for dynamic airway collapse (EDAC)/tracheobronchomalacia TECHNIQUE: 3.75 mm thick axial contiguous sections were obtained through the chest via helical acquisition without intravenous contrast administration during inspiratory breath-holding. Thin-section reconstructions as well as coronal and sagittal reformatted images were generated. 2.5 mm thick sections were obtained through the chest via helical acquisition using low radiation dose technique during expiratory breath-holding. 3 axial cine sections were obtained using low radiation dose technique during dynamic free breathing. COMPARISON: Fluoroscopy 08/13/2018 and chest radiograph 06/08/2015 FINDINGS: Trachea morphology: ? Central airways scxsnlsq-ir-xtzauymeu luminal dimensions: Trachea at level of aortic arch: Breath-hold inspiration: 23 mm Breath-hold expiration: 19 mm Dynamic inspiration: 28 mm Dynamic expiration: 21 mm Trachea just above the fuad: Breath-hold inspiration: 19 mm Breath-hold expiration: 15 mm Dynamic inspiration: 21 mm Dynamic expiration: 14 mm Right mainstem bronchus: Breath-hold inspiration: 11 mm Breath-hold expiration: 8 mm Dynamic inspiration: 12 mm Dynamic expiration: 9 mm Left mainstem bronchus: Breath-hold inspiration: 12 mm Breath-hold expiration: 9 mm Dynamic inspiration: 11 mm Dynamic expiration: 8 mm Pulmonary parenchyma: Linear right basilar and anterior right middle lobe atelectasis/scar. No focal consolidation. No suspicious pulmonary nodules. Mild air trapping on the expiratory images. Airways: Slightly tortuous course of the intrathoracic trachea. The central airways are patent and normal in caliber on both inspiratory and expiratory images. Small amount of mucus in the trachea. Mild lower lobe bronchial wall thickening. Pleura: No pleural effusion or pneumothorax. Lymph nodes: No pathologically enlarged lymph nodes. Heart, pericardium, and great vessels: Mild cardiomegaly. Moderate coronary artery atherosclerotic calcifications. No pericardial effusion. Other mediastinal structures: Small hiatal hernia. Lower neck: No significant findings. Upper abdomen: Elevation of the right hemidiaphragm. Two 2 mm right kidney stones. Body wall soft tissues: No significant findings. Skeletal structures: Stable anterior compression deformity of the T12 vertebral body. No suspicious lytic or sclerotic osseous lesions. Procedure Note Parisa Trujillo MD - 08/29/2020 EXAMINATION: CT CHEST WO CONTRAST (GENERIC) CLINICAL HISTORY: Shortness of breath please perform dynamic inspiratory/expiratory cuts through central airwaysto evaluate for dynamic airway collapse (EDAC)/tracheobronchomalacia TECHNIQUE: 3.75 mm thick axial contiguous sections were obtained throughthe chest via helical acquisition without intravenous contrast administrationduring inspiratory breath-holding. Thin-section reconstructions as well ascoronal and sagittal reformatted images were generated. 2.5 mm thick sections were obtained through the chest via helicalacquisition using low radiation dose technique during expiratory breath-holding. 3 axial cine sections were obtained using low radiation dose techniqueduring dynamic free breathing. COMPARISON: Fluoroscopy 08/13/2018 and chest radiograph 06/08/2015 FINDINGS: Trachea morphology: Central airways [id number]-ny-lgsljtuxe luminal dimensions: Trachea at level of aortic arch: Breath-hold inspiration: 23 mm Breath-hold expiration: 19 mm Dynamic inspiration: 28 mm Dynamic expiration: 21 mm Trachea just above the fuad: Breath-hold inspiration: 19 mm Breath-hold expiration: 15 mm Dynamic inspiration: 21 mm Dynamic expiration: 14 mm Right mainstem bronchus: Breath-hold inspiration: 11 mm Breath-hold expiration: 8 mm Dynamic inspiration: 12 mm Dynamic expiration: 9 mm Left mainstem bronchus: Breath-hold inspiration: 12 mm Breath-hold expiration: 9 mm Dynamic inspiration: 11 mm Dynamic expiration: 8 mm Pulmonary parenchyma: Linear right basilar and anterior right middlelobe atelectasis/scar. No focal consolidation. No suspicious pulmonary nodules.Mild air trapping on the expiratory images. Airways: Slightly tortuous course of the intrathoracic trachea. Thecentral airways are patent and normal in caliber on both inspiratory andexpiratory images. Small amount of mucus in the trachea. Mild lower lobe bronchialwall thickening. Pleura: No pleural effusion or pneumothorax. Lymph nodes: No pathologically enlarged lymph nodes. Heart, pericardium, and great vessels: Mild cardiomegaly. Moderatecoronary artery atherosclerotic calcifications. No pericardial effusion. Other mediastinal structures: Small hiatal hernia. Lower neck: No significant findings. Upper abdomen: Elevation of the right hemidiaphragm. Two 2 mm rightkidney stones. Body wall soft tissues: No significant findings. Skeletal structures: Stable anterior compression deformity of the [id number] body. No suspicious lytic or sclerotic osseous lesions. IMPRESSION 1. The central airways are patent and normal in caliber without evidenceof excessive dynamic airway collapse. 2. No focal airspace opacity or findings suggestive of interstitiallung disease. 3. Mild bronchial wall thickening and mild air trapping. 4. Stable elevation of the right hemidiaphragm resulting in partial rightlower lobe atelectasis. 5. Small hiatal hernia. I have personally reviewed the image(s) and the resident's interpretationand agree with the findings, Parisa Alejandro MD at 08/29/2020 5:15PM Thank you for letting us participate in the care of this patient. Forquestions regarding this report, please contact the number below. Electronically signed by: Parisa Alejandro MD, [facility] ([phone]), at 08/29/2020 5:15 PM Steven Soliz MD IMG CT ORDERABLES documented in this encounter Visit Diagnoses Diagnosis ZEPEDA (dyspnea on exertion) Other dyspnea and respiratory abnormality Diaphragm paralysis Disorders of diaphragm documented in this encounter Care Teams Paving Foreman Relationship Specialty Start Date End Date Arelis Michele MD [address] [place] [address] PCP - General Family Medicine 08/01/18 02/11/24 documented as of this encounter
--- OUTSIDE RECORDS SUMMARY | 2024-04-06 02:28 | XMS_ITS | Encounter Summary ---
[place] [address] Care Team Providers Care Animal Sitter Name Role Phone Arelis Michele MD Primary Care Provider [phone] Reason for Visit * Reason Comments Specialty Pharmacy Review Tofacitinib (X eljanz) Encounter Details Date Type Department Care Team (Late st Contact Info) Description 05/29/2021 Specialty [place] [address] Mariela Ritter [facility] Social History Tobacco Use Types Packs/Day Years [...] this encounter Progress Notes * Mariela Ritter [facility] - 05/29/2021 9:01 AM EDT The [facility] has completed a benefits investigation for Wesly Ybarra to review their eligibility to fill at [facility]. Per patient's medication list they are prescribedXeljanz and the medication is able to be filled at the [facility]. documented in this encounter Plan of Treatment Upcoming Encounters Date Type Department Care Team (Late st Contact Info) Description 04/28/2024 12:00 PM EDT Appointment [place] [id number] documented as of this encounter Visit Diagnoses Not on filedocumented in this encounter Care Teams Animal Sitter Relationship Specialty Start Date End Date Arelis Michele MD [address] [place] [address] PCP - General Family Medicine 08/01/18 02/11/24 documented as of this encounter
--- OUTSIDE RECORDS SUMMARY | 2024-04-06 02:28 | XMS_ITS | Encounter Summary ---
Author Organization [facility] [place] [address] Care Team Providers Care Textile Dyer Name Role Phone Arelis Michele MD Primary Care Provider Encounter Details Date Type Department Care Team (Latest Contact Info) Description 12/08/2021 2:00 PM EDT TH Visit (TeleHealth) [place] [address] Alice Carney APRN [facility] [place] [address] Rheumatoid arthritis with positive rheumatoid factor, involving [...] on file documented as of this encounter Patient Instructions * Patient Instructions* Alice Carney APRN - 12/08/2021 2:58 PM EDT Plan: Continue leflunomide 10 mg for the short-term. I will order Rituxan infusions to be done once every 4 months. Fourth Covid vaccine should be done at least 3 to 4 weeks before your first Rituxan infusion. Do not take leflunomide the day before Covid vaccination and not for 2 weeks after COVID vaccination. Do not take leflunomide starting 2 weeks before Rituxan infusion. He should have the following lab work done 2 weeks before each Rituxan infusion and you can get these drawn at [facility] -- orders are attached: CBC = complete blood count (red and white blood cells, platelets) CMP = comprehensive metabolic panel (liver function, kidney function, electrolytes) CRP = inflammatory marker ESR (aka SED) = inflammatory marker You should expect to hear from me re lab results so please reach out to me if you do not. You cannot be sure that I received the lab results unless you hear from me and it is very important that I reviewed the results before you proceed with infusion as discussed. You should not have Rituxan infusion if you are ill or planning surgery. Please reach out to me if you have any questions about whether or not it is safe to proceed with Rituxan infusion. I recommend you follow-up with primary care regarding your osteoporosis. Follow-up appointment: You should try to coordinate your Rituxan infusion schedule with my scheduleso that we can have an in person appointment the morning before each of your Rituxan infusions. We can do a telephone appointment if needed but I would much rather see you while you are here. My current general schedule is every other Saturday, every Saturday starting at 10 AM, every Saturday starting at 8 AM, every starting at 8 AM, and every other Saturday starting at 9 AM. documented in this encounter Progress Notes * Alice Carney APRN - 12/08/2021 2:00 PM EDT Rheumatology Follow-up Visit CC: Wesly Ybarra is a 71 y.o.male presenting for ongoing evaluation and management of seropositive rheumatoid arthritis. I have been following his care since 02/14/2021. Last OV: 11/14/2021 Rheumatology History: Seropositive Rheumatoid Arthritis: 05/2002 (approx) [...] overload. I spoke with ASHLEY Wise, in [facility] infusion lab this morning -- last infusion was in 2017 for name brand Rituximab. ?? Orencia tried [id number] and stopped due to lack of efficacy [...] mg IV Q16W infusion resumed at [facility] -- next infusion cancelled due to unaffordable uph-xq-qcblos cost. ?? Plan was to start Xeljanz 07/2021 given limited options available to patient for treatment givenmedical history and co-morbidities after communication via ED with Wesly Munoz MD, in cardiology. He never started it due to concerns about black box warnings. ?? Started leflunomide 10 mg daily 10/2021 while investigating [email or web address] Rituxan medication assistance program. Treatment considerations: ?? 02/14/2021 Denied hx blood clots. + Hx diverticulitis with 18 bowel resected. + CMP. SOB/ZEPEDA -- multifactorial as noted elsewhere. ?? Marked improvement with resumption of Rituxan (received Ruxience) 03/2021. He could not continue with RTX due to zrm-op-hqaizk cost. Options for treatment are limited due to co-morbidities. ?? TNFi not preferred due to cardiomyopathy [...] NSAIDS per cardiology. CAD and CMP: [facility] Cardiology OV notes from 09/27/2020 (Wesly Munoz MD) reviewed 02/28/2021. ?? CAD: s/p CABG (Patient Denies!) and s/p mid LAD stent March 2019. Additional workup with CPET planned at [facility] for eval of ongoing SOB (Patient says [...] activity. Interval History: Current treatment for RA: Leflunomide 10 mg daily (started after 10/17/2021 OV) Overall, no improvement with leflunomide after about 10 weeks of treatment. He did not increase to 20 mg as planned due to persistent sour stomach. [email or web address] Rituxan medication assistance program was recently approved [...] persistent dyspnea which is ongoing and his tariff compiling clerk at [facility] ordered a repeat stress test [...] is recovered well. He met his new tariff compiling clerk at [facility] 09/2021 and he is pleased with her [...] I discussed this case briefly with his underwear finisher (though he did not review prior notes [...] with fluid overload. Note that on 03/21/2021 [facility] Rheumatology nurse confirmed with ASHLEY Wise, that [facility] infusion labthat per their protocol, and in [...] -- ongoing. Followed by cardiology at [facility]. Pulmonary: Denies hemoptysis. + SOB at rest at times. Sometimes uses his albuterol inhaler. Gastrointestinal: Denies [...] Osteoporosis with pathologic vertebral fracture per [facility] notes but not on file at [facility]. Physical Examination: Not done (telephone visit) Patient is alert and oriented, in no acute distress, speech clearly articulated in full sentences with unlabored breathing, pleasant affect. Pertinent findings noted at last in-person OV: Lungs: CTA b/l with mild decreased BS on R c/w prior visit Extremities: Hands: L 2nd and 3rd mcp synovitis, none on the left, scattered mcp pip ttp; + L MCP compression tenderness Wrists: No synovitis, tenderness, swelling Elbows: no tenderness or swelling Shoulders: Per prior in-person visit not assessed today: Reduced ROM in all planes L>R, anteriorand posterior ttp on the L, + empty can on the L DATA: Labs: [facility] 06/07/2021: unremarkable CBC, CMP, ESR, CRP. Negative Hepatitis B/C and TB Quant Gold screening. [facility] 03/2021: unremarkable CBC, CMP ASSESSMENT/RECOMMENDATIONS: Seropositive rheumatoid arthritis: Suboptimal control on leflunomide 10 mg started about 10 weeks ago. He is unable to increase the dose due to persistent sour stomach. Note that he started leflunomide to see if it would help him while we investigated [email or web address] Rituxan patient assistance program as that is the medication that has been most helpful for him in the past but he was unable to continue with it due to cost. He was recently approved for this program and is excited to proceed with treatment. See patient instructions for plan. 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 Continue with vit d supplementation, avoiding calcium supplementation due to kidney stones. Continue with weightbearing activityas tolerated. I recommend primary care follow up at this point. Patient Instructions Plan: Continue leflunomide 10 mg for the short-term. I will order Rituxan infusions to be done once every 4 months. Fourth Covid vaccine should be done at least 3 to 4 weeks before your first Rituxan infusion. Do not take leflunomide the day before Covid vaccination and not for 2 weeks after COVID vaccination. Do not take leflunomide starting 2 weeks before Rituxan infusion. He should have the following lab work done 2 weeks before each Rituxan infusion and you can get these drawn at [facility] -- orders are attached: ?? CBC = complete blood count (red and white blood cells, platelets) ?? CMP = comprehensive metabolic panel (liver function, kidney function, electrolytes) ?? CRP = inflammatory marker ?? ESR (aka SED) = inflammatory marker You should expect to hear from me re lab results so please reach out to me if you do not. You cannot be sure that I received the lab results unless you hear from me and it is very important that I reviewed the results before you proceed with infusion as discussed. You should not have Rituxan infusion if you are ill or planning surgery. Please reach out to me if you have any questions about whether or not it is safe to proceed with Rituxan infusion. I recommend you follow-up with primary care regarding your osteoporosis. Follow-up appointment: You should try to coordinate your Rituxan infusion schedule with my scheduleso that we can have an in person appointment the morning before each of your Rituxan infusions. We can do a telephone appointment if needed but I would much rather see you while you are here. My current general schedule is every other Saturday, every Saturday starting at 10 AM, every Saturday starting at 8 AM, every starting at 8 AM, and every other Saturday starting at 9 AM. AVS to be mailed to patient. Minutes spent today associated with the office visit including during the visit, chart review, and documentation: 45 Alice Carney APRN CC: Arelis Michele MD documented in this encounter Plan of Treatment Upcoming Encounters Date Type Department Care Team (Late st Contact Info) Description 04/28/2024 12:00 PM EDT Appointment [place] [address] documented as of this encounter Visit Diagnoses Diagnosis Rheumatoid arthritis with positive rheumatoid factor, involving unspecified site High risk medication use Encounter for long-term (current) use of other medications documented in this encounter Care Teams Textile Dyer Relationship Specialty Start Date End Date Arelis Michele MD [address] [place] [address] PCP - General Family Medicine 08/01/18 02/11/24 documented as of this encounter
--- OUTSIDE RECORDS SUMMARY | 2024-04-06 02:28 | XMS_ITS | Encounter Summary ---
Author Organization [facility] [place] [address] Care Team Providers Care Restaurant Maintenance Technician Name Role Phone Arelis Michele MD Primary Care Provider [phone] Encounter Details Date Type Department Care Team (Late st Contact Info) Description 02/14/2021 3:00 PM EDT [place] [address] Alice Carney APRN [facility] [address] [place] [address] Rheumatoid arthritis with positive rheumatoid factor, involving unspecified site; Cardiomyopathy, unspecified type Social History Tobacco Use Types Packs/Day Years [...] Sign Reading Time Taken Comments Blood Pressure 127/68 02/14/2021 2:45 PM EDT Pulse 59 02/14/2021 2:45 PM EDT Temperature 36.6 ??C (97.8 ??F) 02/14/2021 2:45 PM ED T Respiratory Rate - - Oxygen Saturation 97% 02/14/2021 2:45 PM EDT Inhaled Oxygen Concentration - - Weight 102.5 kg (226 lb) 02/14/2021 2:45 PM EDT Height 179 cm (5' 10.47) 02/14/2021 2:45 PM EDT Body Mass Index 31.99 02/14/2021 2:45 PM EDT documented in this encounter Progress Notes * Alice Carney, ADMINISTRATIVE ASSISTANT OFFICE MANAGER - 02/14/2021 3:00 PM EDT Rheumatology Follow-up Visit Wesly Ybarra is a 70 y.o.male seen for ongoing evaluation and management of seropositive rheumatoid arthritis and transfer of care. This is out first meeting. Last OV: 12/15/2020 ([facility]) HPI: Background: 05/2002 (approx) sudden onset fatigue and aches in hands but whole body affected. Body wide joint aches for several months but then sudden onset of fatigue and hands joint aches. Current Treatment: none Treatments tried: Enbrel helped the most -- needed twice per week. Rituximab for several years but medicare didn't cover all of the cost (/) but he would have liked to stay on it. Orencia tried [id number] and stopped due to lack of efficacy and dyspnea. SSZ started 12/2020 and tried for about 2.5-3 weeks but stopped due to nausea, diarrhea, rash, wheezing worsened. No hx blood clots. Hx diverticulitis with 18 bowel resected. Cardiac stent at [facility] (no office notes on file, cath report showed single vessel mid-LAD dx stented03/2019), and followed at [facility]. Hx cardiomyopathy. Only able to use his left lung due to R side hemiparesis. SOB is an ongoing issue, was evaluated in Pulmonology but inconclusive workup -- 08/29/2021 notes reviewed. Gardening but very difficult due to fatigue and joint pain. Can't walk up a flight of stairs due to his breathing. Marked AM stiffness with inability to straighten his hands out of a claw position for 2-3 hours. Marked fatigue. Review of Systems: General: Denies fevers, chills, night sweats, severe illness, hospitalizations. Normal appetite, stable weight. HEENT: Denies acute visual changes Skin/nails: Denies rash Cardiovascular: Denies chest pain, palpitations. + ZEPEDA with minimal activity. Pulmonary: Denies hemoptysis. + SOB at rest at time. Gastrointestinal: Denies abdominal pain, nausea, vomiting, bowel changes, melena, primo blood in stool, reflux Genitourinary: Denies hematuria, voiding changes Musculoskeletal: See interval history Neurologic: Denies pre-syncope, syncope Psychiatric: Stable mood, sleep is okay Past OV 01/14/2021 No improvement with the Orencia, Has had 7-8 infusions he reports. He has had bad breathing, worsening puffing, cough; saw cardiology and pulm per pt, and workups reassuring Enbrel, rituximab. No Humira. No Actemra No h/o blood clot With activity, joint pain feels a little but worse Nothing looks swollen Couple hours for hands to loosen up, in the morning they are curled [facility] blood work with Dr. 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 No change since last. Continues with prolonged AM stiffness of shoulders and hands. Has read about xeljanz and orencia as requested at last visit. He wonders about infection risk. He has not heard from pulm re an appt. Past OV 04/06/2020 PT, massage took swelling down in calf Knee bothers every day On half a tab of Medrol He hurts everyday Shoulders and hands the worst, in the morning claws, takes a couple hours to get working well and to loosen up Just very stiff, not swollen When in bed can't straighten legs out completely; knees loosen up as the day goes No infections since I last saw him He couldn't afford rituximab Enbrel infections, nothing before Enbrel; when went from Enbrel to rituximab no difference, still felt well controlled Denies other changes in medical, surgical or social history. 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 Extremities: Shoulders: Reduced ROM in all planes L>R, anterior and posterior ttp on the L, + empty can on the L Elbows: FROM Wrists: FROM, no swelling, non-tender Hands: 2nd and 3rd mcp thickening bl, no active synovitis, scattered mcp pip ttp Hips: FROM Knees: Crepitus and FROM bl Ankles: FROM Feet: no MTP compression tenderness ASSESSMENT & Plan: Rheumatoid arthritis: Currently untreated after most recently failing Orencia and not tolerating sulfasalazine. Reports continued hand symptoms with AM curling and tightness for several hours. No active synovitis on exam today. lobsterman steroid use Continue with vit d supplementation, avoiding ca supplementation d/t kidney stones Continue with weightbearing activity Plan: Trial prednisone 10 mg daily x 14 days then follow up TH visit on 02/28/2021 to assess response. In the meantime, I requested information from [facility] cardiology (Per Sandra in [facility] Specialty she willfax Last OV Cardiology 09/2020 and Last Echo 2019) plus the infusion lab (I LM and will ask RN to follow up) to find out about the issue with Rituxan cost. Perhaps generic would be more affordable. RITA inhibitors not a good option due to patient's history of diverticulitis and partial bowel resection. TNFi (in particular Remicade) is a possible option though with his significant ZEPEDA and history ofcardiomyopathy I would not consider it without additional input from cardiology. SSZ not tolerated due to GI SE. Methotrexate not a great option due to ongoing breathing issues. Arava is an option. Idiscussed all of this with Mr. Ybarra at his visit and will review in 2 weeks at follow up visit. Follow up in 2 weeks via tele-health to review treatment options. Minutes spent today associated with the office visit including during the visit, chart review, and documentation: 55 Alice Carney APRN CC: Arelis Michele MD documented in this encounter Plan of Treatment Upcoming Encounters Date Type Department Care Team (Late st Contact Info) Description 04/28/2024 12:00 PM EDT [place] [address] documented as of this encounter Visit Diagnoses Diagnosis Rheumatoid arthritis with positive rheumatoid factor, involving unspecified site Cardiomyopathy, unspecified type documented in this encounter Care Teams Restaurant Maintenance Technician Relationship Specialty Start Date End Date Arelis Michele MD [address] [place] [address] PCP - General Family Medicine 08/01/18 02/11/24 documented as of this encounter
--- OUTSIDE RECORDS SUMMARY | 2024-04-06 02:28 | XMS_ITS | Encounter Summary ---
Author Organization [facility] [place] [address] Care Team Providers Care Peg Driver Name Role Phone Arelis Michele MD Primary Care Provider [phone] Encounter Details Date Type Department Care Team (Latest Contact Info) Description 04/19/2020 3:00 PM EDT TH Visit (TeleHealth) [place] [address] Dianne Norton APRN [facility] [place] [address] [place] [address] High risk medication use; Rheumatoid arthritis with [...] this encounter Patient Instructions * Patient Instructions* Dianne Norton APRN - 04/19/2020 3:00 PM EDT RTC 3 months documented in this encounter Progress Notes * Dianne Norton APRN - 04/19/2020 3:00 PM EDT Rheumatology Clinic Wesly Ybarra is a 69 y.o.male seen for ongoing evaluation and management of rheumatoid arthritis. INTERVAL HISTORY: 2wk follow up to discuss next steps after pt has done reading about medications. No change since last. Continues with prolonged AM stiffness of shoulders and hands. Has read about xeljanz and orencia as requested at last visit. He wonders about infection risk. He has not heard from pul re an appt. Past OV 04/06/2020 PT, [...] rituximab no difference, still felt well controlled Last saw Dr. Michele 3 wks ago Only has one lung that works, supposed to have appt with pul Just had stress test with PCP and that was normal Was having SOB, he puffs a lot Reports that he was supposed to f/u with pul but they never contacted him L shoulder pain Past OV 07/02/19 Last rituxan 01/2018, and mtx for over a year. No ra drugs for 17 months. He hurts from head to toe every day. His shoulders are the worst, then elbows, fingers, knees, hips. It takes him 20 min for him to loosen up in the morning. His right knee has looked swollen to him.He went to the hospital last night for the right knee, and they did an ultrasound for DVT which wasunremarkable. He went to ED at [facility]. No tick bites, but does work outside a lot. Has taken25 off this year. Right knee swelling started on Saturday of this week, pain in the calve, medial aspect and back of calf was tender to touch, was red and warm but better today; swelling increased gradually, he reports he felt a thump at the knee when he took a step prior to the onset; they measured in ED last nightand said it was 1.5cm larger than the other leg, ortho surgeon did not seem too concerned, they gave him potassium tablets and told him to elevate the leg, he reports Does not know if he has had a hernandez's cyst Tested for lyme a long time ago. He would like to go to Enbrel again, he can't infusion the rituximab treatments. He was having a lot infections (URI) on Enbrel, wouldn't hold on it when txed for infection The stent instantly resolved the SOB. No recent f/c/infection. No CP; One lung, SOB is stable, better with stent. No rashes. No Gi distresses. No dysuria, hematuria. Nothing else looks swollen to him right now. His joints feel better the more he uses them. The hands are stiff for an hour in the morning. Claw like. The left shoulder is stiff in the morning. He has been on mtx, enbrel, rituximab. 2mg of medrol daily for a while. He is taking 1000mg APAP. No NSAID. Going to [place] for 14 days on Saturday He is getting his teeth pulled in September, going to get dentures, was putting it off for a while Past Guillermina Azevedoyd 01/08/19 Rheumatology remain on HOLD due to unspecified Cardiology procedure (thinks its a Cardiac cath). But understands needs colonoscopy ( 02/16/2019) and endoscopy (unscheduled to date). Previously reported last Rituxan infusion in January 2018. [facility] (single infusion protocol/q 4 mo). Noted at that time, (-) peripheral joint swelling, sustained AM joint stiffness. Continues to HOLD methotrexate. Tylenol 1000 mg 2-3 times daily for joint stiffness and swelling, affecting mainly hands. Not bad now. No interval steroids. Pain and stiffness in hips and knees. Uncertain swelling. Night time awakening due to hip pain withsidelying position. Knees achy all the time. (+) swelling L>R. (-) erythema or warmth. Pain in knees limit walking. Can;t do much because of hte breathing, short of breath with exertion. PULM follow up () in 09/2018. Currently using tylenol 1000 mg TID. Modest benefit for knee. Sees Arelis Michele MD yearly - about three months ago, last seen. Reports many procedures cancelled or postponed due to heart problems. States they do not know yet what diagnosis is. Treated by Dr. Sommers ([facility] Cardiology). History of depression - current management by PCP, on effexor and wellbutrin.. ROS See HPI for MSK No f/c, no infections +dysnpea No skin concerns Denies other changes in medical, surgical or social history. 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 Prolonged morning stiffness that improves throughout the day is suggestive of inflammatory arthritis activity. Minor swelling, ttp at last visit. Based primarily on AM stiffness and response to prior RA therapy, decided to trial back on dmard therapy. We reviewed administration, possible side effects, possible ADRs of Xeljanz and Orencia. He has thoroughly read about each medication on his own. Though he has never had a blood clot, based upon cardiovascular history, and infection history, I favor trying Orencia at this time. No h/o COPD. He agrees to try the Orencia, and denies further questions about the medication. [facility] will [facility]. He will get blood work the month after his first infusion. We will get blood work done at [place]. We did discuss that he has degenerative disease as well, and that Orencia would not treat that pain. I requested he call pulmonology to schedule an appointment. long-term steroid use -continue with medrol 2mg daily -continue with vit d supplementation, avoiding ca supplementation d/t kidney stones -continue with weightbearing activity RTC 3 months Patient verbally consents to this telephone visit and understands that this visit may be billed, similar to a clinic office visit. I provided care to the patient today via telephone call. The total time associated with this visit was 15 minutes. documented in this encounter Plan of Treatment [...] site documented in this encounter Care Teams Peg Driver Relationship Specialty Start Date End Date Arelis Michele MD [address] [place] [address] PCP - General Family Medicine 08/01/18 02/11/24 documented as of this encounter
--- OUTSIDE RECORDS SUMMARY | 2024-04-06 02:28 | XMS_ITS | Encounter Summary ---
Author Organization [facility] [place] [address] Care Team Providers Care Computer Systems Software Architect Name Role Phone Arelis Michele MD Primary Care Provider [phone] Encounter Details Date Type Department Care Team (Late st Contact Info) Description 05/12/2020 [place] [address] Juany Romo Social History Tobacco Use Types Packs/Day Years [...] 12:00 PM EDT [place] [address] documented as of this encounter Visit Diagnoses Not on filedocumented in this encounter Care Teams Computer Systems Software Architect Relationship Specialty Start Date End Date Arelis Michele MD [address] [place] [address] PCP - General Family Medicine 08/01/18 02/11/24 documented as of this encounter
--- OUTSIDE RECORDS SUMMARY | 2024-04-06 02:28 | XMS_ITS | Encounter Summary ---
[place] [address] Care Team Providers Care Dust Box Worker Name Role Phone Arelis Michele MD Primary Care Provider [phone] Encounter Details Date Type Department Care Team (Late Contact Info) Description 12/11/2021 Telephone [place] [address] Stefany Rosales Social History Tobacco Use Types [...] * Telephone Encounter - Stefany Rosales - 12/11/2021 9:16 AM EDT LM asking pt to return call to schedule infusion documented in this encounter Plan of Treatment Upcoming Encounters Date Type Department Care Team (Late st Contact Info) Description 04/28/2024 12:00 PM EDT Appointment [place] [address] documented as of this encounter Visit Diagnoses Not on filedocumented in this encounter Care Teams Dust Box Worker Relationship Specialty Start Date End Date Arelis Michele MD [address] [place] [address] PCP - General Family Medicine 08/01/18 02/11/24 documented as of this encounter
--- OUTSIDE RECORDS SUMMARY | 2024-04-06 02:28 | XMS_ITS | Encounter Summary ---
[place] [address] Care Team Providers Care Bath Solution Maker Name Role Phone Arelis Michele MD Primary Care Provider [phone] Encounter Details Date Type Department Care Team (Late st Contact Info) Description 12/14/2021 [place] [phone] Yumi Maxwell Social History Tobacco Use Types Packs/Day Years [...] encounter Miscellaneous Notes * Telephone Encounter - Yumi Maxwell - 12/14/2021 3:18 PM EDT Left second message for the patient to contact the office to schedule an infusion. documented in this encounter Plan of Treatment Upcoming Encounters Date Type Department Care Team (Late st Contact Info) Description 04/28/2024 12:00 PM EDT [place] [phone] documented as of this encounter Visit Diagnoses Not on filedocumented in this encounter Care Teams Bath Solution Maker Relationship Specialty Start Date End Date Arelis Michele MD [address] [place] [address] PCP - General Family Medicine 08/01/18 02/11/24 documented as of this encounter
--- OUTSIDE RECORDS SUMMARY | 2024-04-06 02:28 | XMS_ITS | Encounter Summary ---
Author Organization [facility] [place] [address] Care Team Providers Care Analytical Research Program Manager Name Role Phone Arelis Michele MD Primary Care Provider [phone] Encounter Details Date Type Department Care Team (Latest Contact Info) Description 08/18/2021 11:00 AM EST TH Visit (TeleHealth) [place] [address] Alice Carney APRN [facility] [place] [address] Rheumatoid arthritis with positive rheumatoid factor, involving [...] * Patient Instructions* Alice Carney APRN - 08/18/2021 11:00 AM EST I called your pharmacy and was advised that 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 Try Mucinex (guaifenesin) to thin secretions and increase your fluid intake to see if that helps your cough. You should follow up with primary care for evaluation of your cough and for consideration of a sinus CT and/or ENT (Ear/Nose/Throat) referral. Based on our conversation today it does not sound to me like you have an active infection but you should wait to start the methotrexate until your throat infection is sorted out. I sent prescriptions for methotrexate and folic acid to you pharmacy in anticipation of you starting it soon. Labs for methotrexate monitoring are due 1 month after starting methotrexate and then following 3 months, then every 3 months after that. Use the enclosed lab orders ([facility] You should discuss your concerns about Xeljanz with your set o type operator as I suspect you will need toreconsider taking it after a trial of methotrexate. Follow up telephone visit 10/19/2021 at 9AM. documented in this encounter Progress Notes * Alice Carney APRN - 08/18/2021 11:00 AM EST Rheumatology Follow-up Visit TELEPHONE VISIT This visit was conducted via telephone due to COVIDCountercepts restrictions. I advised Leeanne Rutherford Cyndie thatthis telephone visit may be billed similar to a clinic visit to patient and insurance company. Patient agreed to continue this visit. CC: Leeanne Agee is a 70 y.o.male presenting for ongoing evaluation and management of seropositive rheumatoid arthritis. Last OV: 05/26/2021 (Angelika, telephone visit) NU Visit: 02/14/2021 (Angelika, telephone visit) Rheumatology History: Seropositive Rheumatoid [...] overload. I spoke with ASHLEY Wise, in [facility] infusion lab this morning -- last infusion was in 2017 for name brand Rituximab. ?? Orencia tried and stopped due to lack of efficacy [...] 1000 mg IV Q16W infusion resumed at [facility] -- next infusion cancelled due to unaffordable [id number] cost. ?? Plan was to start Xeljanz 07/2021 given limited options available to patient for treatment givenmedical history and co-morbidities after communication via [facility] with Leeanne Munoz MD, in cardiology. Treatment considerations: 02/14/2021 Denied hx blood clots. + Hx diverticulitis with 18 bowel resected. + CMP. SOB/ZEPEDA -- multifactorial as noted elsewhere. He has not tried Humira or Remicade (concern for CHF), Actemra (contraindicated), JAKs. Cannot take NSAID per cardiology CAD and CMP: [facility] Cardiology OV notes from 09/27/2020 (Leeanne Munoz MD) reviewed 02/28/2021. ?? CAD: s/p [...] Interval History: Current treatment for RA: None He decided not to start Xeljanz due to: Concerns about potential adverse cardiovascular effects and Not wanting to start medication with his current infection in the top of my lungs to my throat that nobody can figure out. Last [facility] pulmonology evaluation 08/2020 at [facility] with notes reviewed: Leeanne Agee??is a 67 y.o.??man (never-smoker)??who presents to the pulmonology clinic??for follow-up of chronic dyspnea on exertion. 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 ??His dyspnea has progressed since 09/2019 more preciptiously but present and progressive over the last 5 to 7 years. Of this year, and he also has chronic daily cough productive for green sputum over the last year. ??Today's spirometry is reassuring as there isn't substantial change from prior. I do have a harder time reconciling the elevated RV seen today relative to his last study. His dynamic airway CT study from today does not show radiographic evidence of excessive dynamic airway col lapse. It seems he's had recent Cardiology evaluation a few months ago which was reassuring. From aPFT and imaging standpoint, I have not definitively found evidence to readily explain his progressive symptomatology. Plan: ?? Cefpodoxime 200 mg BID x7 days for MSSA ?? Recommend he start using his Symbicort scheduled x2 PUFFS BID; refilled at 160/4.5 dosing ?? Start using Albuterol HFA in an as needed fashion ?? Follow-up with me in 12 weeks. Mr. Agee does not recall taking antibiotics (though the pharmacy confirmed with me after the visit that he did pick it up). He did not follow-up with pulmonology as planned. He continues to have occasional greenish-brown sputum with usually dry cough and sometimes a tickle in his throat, worse when laying down. No fevers, chills, night sweats, weight loss. He thinks he may have sinus issues. He has not been evaluated by ENT. Not well-hydrated. Dyspnea is a big concern and he gets short of breath walking on anything but flat ground. + joint swelling, stiffness in his hands which affects function. Per 05/26/2021 OV: Symptoms without treatment: hands with [...] Rheumatology nurse confirmed with ASHLEY Wise, that [facility] infusion labthat per their protocol, and [...] resection Osteoporosis with pathologic vertebral fracture per [facility] notes but not on file at [facility]. Physical Examination: Not done (telephone visit) Patient is alert and oriented, in no acute distress, speech clearly articulated in full sentences with unlabored breathing, pleasant affect. Pertinent positive findings from 02/14/2021:?? Lungs: CTA b/l with mild decreased BS on R Skin: rosacea, pink macules on face Shoulders: Reduced ROM in all planes L>R, anterior and posterior ttp on the L, + empty can on the L Hands: 2nd and 3rd mcp thickening bl, no active synovitis, scattered mcp pip ttp Knees: Crepitus and FROM bl DATA: Labs: [facility] 03/2021 unremarkable CBC, CMP Results for LEEANNE AGEE ( ) as of 05/26/2021 11:20 Ref. Range 03/21/2019 03:16 04/06/2020 16:18 Chol, Total Latest Units: mg/dL 128 218 HDL Latest Units: mg/dL 51 56 Chol/HDL Ratio Latest Units: ratio 2.5 3.9 Triglycerides Latest Units: mg/dL 100 184 LDL Cholesterol Latest Units: mg/dL 57 125 TB Quant Gold, Hepatitis screen negative 06/2021 at OSH. ASSESSMENT/RECOMMENDATIONS: Seropositive rheumatoid arthritis: Currently symptomatic without treatment after marked improvementwith resumption of Rituxan (received Ruxience) 03/2021. He could not continue with RTX due to [id number] cost. Options for treatment are limited due to co-morbidities. TNFi not preferred due to cardiomyopathy with reduced EF and ongoing dyspnea, Actemra contrainidicated due history of diverticulitis with bowel resection, Anakinra not preferred due to low liklihood that it would be effective. RITA inhibitor (Xeljanz) approved by insurance but he does not want to take it to due CV risk since he has CAD and cardiomyopathy (followed by cardiology and managed with a atorvastatin, metoprolol, aspirin, and isosorbide). Note that I communicated with his set o type operator (Dr. Munoz) via internal staffmessage in the fall 2020 and he felt that he was stable from a CV perspective and he could cautiously proceed with Xeljanz since there are no other viable options). I do not want to give him steroidswith his osteoporosis unless absolutely necessary. So, I reviewed options with him today and he would like to resume methotrexate which he tolerated in the past. Discussed that he has to sort out histhroat infection first but that this is reasonable. See patient instructions. Occasional purulent sputum / cough / dyspnea on exertion: Pulmonology work-up 08/2020 was unrevealing except for MRSA on sputum culture which was treated with Vantin. Symptoms persist though it sounds like much less sputum production. I wonder if he is having sinus drainage contributing to the sputum and cough. I discussed this case briefly with his account analyst (though he did not review prior notes [...] in itself indicate a need for treatment). See patient instructions. Osteoporosis with history of pathologic vertebral fracture: DEXA ordered at 02/28/2021 office visit to be done at [facility] and not yet done. Continue with vit d supplementation, avoiding calcium supplementation due to kidney stones. Continue with weightbearing activity as tolerated. Follow up telephone visit scheduled for 10/19/2020 at 11AM. 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 Try Mucinex (guaifenesin) to thin secretions and increase your fluid intake to see if that helps your cough. You should follow up with primary care for evaluation of your cough and for consideration of a sinus CT and/or ENT (Ear/Nose/Throat) referral. Based on our conversation today it does not sound to me like you have an active infection and that it should be okay to resume methotrexate. If you have any concerns about it or you do not improve with the Mucinex then you should wait to start methotrexate. I sent prescriptions for methotrexate and folic acid to you pharmacy. Labs for methotrexate monitoring are due 1 month after starting methotrexate and then following 3 months, then every 3 months after that. Use the enclosed lab orders (though [facility]). You should discuss your concerns about Xeljanz with your set o type operator as I suspect you will need toreconsider taking it after a trial of methotrexate. Follow up telephone visit 10/19/2021 at 9AM. Minutes spent today associated with the office visit including during the visit, chart review, and documentation: 60 AVS to be mailed to patient. Alice Carney APRN CC: Arelis Michele MD documented in this encounter Plan of Treatment Upcoming Encounters Date Type Department Care Team (Late st Contact Info) Description 04/28/2024 12:00 PM EDT Appointment [place] [address] documented as of this encounter Visit Diagnoses Diagnosis Rheumatoid arthritis with positive rheumatoid factor, involving unspecified site High risk medication use Encounter for long-term (current) use of other medications documented in this encounter Care Teams Analytical Research Program Manager Relationship Specialty Start Date End Date Arelis Michele MD [address] [place] [address] PCP - General Family Medicine 08/01/18 02/11/24 documented as of this encounter
--- OUTSIDE RECORDS SUMMARY | 2024-04-06 02:28 | XMS_ITS | Encounter Summary ---
Author Organization [facility] [place] [address] Care Team Providers Care Timber Treating Tank Operator Name Role Phone Arelis Michele MD Primary Care Provider [phone] Encounter Details Date Type Department Care Team (Late st Contact Info) Description 05/12/2020 [place] [address] Juany Romo Social History Tobacco Use Types [...] 12:00 PM EDT [place] [address] documented as of this encounter Visit Diagnoses Not on filedocumented in this encounter Care Teams Timber Treating Tank Operator Relationship Specialty Start Date End Date Arelis Michele MD [address] [place] [address] PCP - General Family Medicine 08/01/18 02/11/24 documented as of this encounter
--- OUTSIDE RECORDS SUMMARY | 2024-04-06 02:28 | XMS_ITS | Encounter Summary ---
[place] [address] Care Team Providers Care Transfusion Aide Name Role Phone Arelis Michele MD Primary Care Provider [phone] Encounter Details Date Type Department Care Team (Latest Contact Info) Description 08/29/2020 12:41 PM EST - 08/29/2020 11:59 PM EST Hospital Encounter [place] [address] Diaphragm paralysis; ZEPEDA (dyspnea on exertion) Discharge Disposition: Home Social History Tobacco Use [...] Sig Dispensed Refills Start Date End Date budesonide-formoteroL (Symbicort) 160-4.5 mcg/actuation HFA Aerosol Inhaler [...] Med - OTC mositurizing eye drops 11/02/2010 cefpodoxime (Vantin) 200 mg Tablet Take 1 tablet by mouth 2 times daily for 7 days. 14 tablet 08/29/2020 09/05/2020 venlafaxine (EFFEXOR) 75 mg Tablet Take 75 [...] 12:00 PM EDT Appointment [place] [address] documented as of this encounter Procedures Procedure Name Priority Date/Time Associated Diagnosis Comments COMMON PULMONARY FUNCTION TEST Routine 08/29/2020 1:11 PM EST Diaphragm paralysis ZEPEDA (dyspnea on exertion) documented in this encounter Results * Pulmonary Function Testing (08/29/2020 1:11 PM EST) FVC Actual Pre-BD 2.59 L COMPAS PFT FVC Pre-BD % of Predicted 61 % COMPAS PFT FVC Predicted 4.25 L COMPAS PFT FVC Pre-BD Z-Score -2.46 COMPAS PFT FVC Lower Limits of Normal 3.14 L COMPAS PFT FEV1 Actual Pre-BD 1.98 L COMPAS PFT FEV1 Pre-BD % of Predicted 62 % COMPAS PFT FEV1 Predicted 3.20 L COMPAS PFT FEV1 Pre-BD Z-Score -2.18 COMPAS PFT FEV1 Lower Limits of Normal 2.29 L COMPAS PFT FEV1 / FVC Actual Pre-BD 76 % COMPAS PFT FEV1/FVC Pre-BD Z-Score 0.05 COMPAS PFT FEV1 / FVC LLN 62 % COMPAS PFT [id number] Actual Pre-BD 1.67 L/s COMPAS PFT [id number] Pre-BD % of Predicted 70 % COMPAS PFT [id number] Predicted 2.39 L/s COMPAS PFT [id number] Pre-BD Z-Score -0.78 COMPAS PFT DLCO Hb Actual Pre-BD 20.52 mL/min/mmHg COMPAS PFT DLCO Hb Pre-BD % of Predicted 79 % COMPAS PFT DLCO Hb Pre-BD Z-Score -1.28 COMPAS PFT DLCO Hb Predicted 26.01 mL/min/mmHg COMPAS PFT DLCO/VA Actual Pre-BD 4.65 mL/min/mmHg /L COMPAS PFT DLCO/VA Pre-BD % of Predicted 115 % COMPAS PFT DLCO/VA Pre-BD Z-Score 0.90 COMPAS PFT DLCO/VA Predicted 4.03 mL/min/mmHg /L COMPAS PFT FRC Pre-BD % of Predicted 111 % COMPAS PFT FRC Pre-BD Z-Score 0.72 % COMPAS PFT FRC Actual Pre-BD 4.18 L COMPAS PFT FRC Predicted 3.75 L COMPAS PFT TLC Actual Pre-BD 6.58 L COMPAS PFT TLC Pre-BD % of Predicted 91 % COMPAS PFT TLC Pre-BD Z-Score -0.91 COMPAS PFT TLC Predicted 7.22 L COMPAS PFT RV Actual Pre-BD 3.70 L COMPAS PFT RV Pre-BD % of Predicted 137 % COMPAS PFT RV Pre-BD Z-Score 2.44 COMPAS PFT RV Predicted 2.70 L COMPAS PFT RVoTLC Actual Pre-BD 56 % COMPAS PFT RVoTLC Pre-BD % of Predicted 133 % COMPAS PFT RVoTLC Pre-BD Z-Score 2.56 COMPAS PFT RVoTLC Predicted 42 % COMPAS PFT VC Actual Pre-BD 2.88 L COMPAS PFT VC Pre-BD % of Predicted 68 % COMPAS PFT VC Pre-BD Z-Score -2.01 COMPAS PFT VC Predicted 4.25 L COMPAS PFT Narrative COMPAS PFT - 08/29/2020 1:11 PM EST FEV1 and FVC are reduced, FEV1/VC is normal. TLC is normal. Diffusion is normal. \.br\\.br\IMPRESSION: Moderate restriction by spirometry. However, normal TLC refutes restrictive ventilatory defect. Normal diffusion capacity.\.br\ Procedure Note Unknown - 08/29/2020 FEV1 and FVC are reduced, FEV1/VC is normal. TLC is normal. Diffusion isnormal. \.br\\.br\IMPRESSION: Moderate restriction by spirometry. However, normalTLC refutes restrictive ventilatory defect. Normal diffusion capacity.\.br\ Steven Soliz MD PFT ORDERABLES COMPAS PFT documented in this encounter Visit Diagnoses Diagnosis Diaphragm paralysis Disorders of diaphragm ZEPEDA (dyspnea on exertion) Other dyspnea and respiratory abnormality documented in this encounter Care Teams Transfusion Aide Relationship Specialty Start Date End Date Arelis Michele MD [address] [place] [address] PCP - General Family Medicine 08/01/18 02/11/24 documented as of this encounter
--- OUTSIDE RECORDS SUMMARY | 2024-04-06 02:28 | XMS_ITS | Encounter Summary ---
[place] [address] Care Team Providers Care Memory Care Program Resident Name Role Phone Arelis Michele MD Primary Care Provider [phone] Reason for Visit * Reason Onset Date Comments Other 03/09/2021 infusion Encounter Details Date Type Department Care Team (Late st Contact Info) Description 03/09/2021 Telephone [place] [phone] Lionel Rabago RN Other (infusion) Social History Tobacco Use Types Packs/Day Years [...] Telephone Encounter - Lionel Rabago RN - 03/10/2021 11:28 AM EDT Images from the original note were not included. Alice Carney, Lionel Garland, ASHLEY Caller: Unspecified (Yesterday, ??8:28 AM) Oh my I am sorry! Dose is for 1000 mg. Special instructions: Pt with CMP (EF 40-45%) -- closely monitor for fluid overload. ??Renal function to be checked 1 week before 1st infusion. Thanks. * Telephone Encounter - Lionel Rabago RN - 03/09/2021 1:47 PM EDT Billie from [facility] infusion calls. Infusion order (RTX) with no dose. Also, difficult to read additional information listed in regards to lab work and when to complete. Requires order with dose and clarification of lab work request. documented in this encounter Plan of Treatment Upcoming Encounters Date Type Department Care Team (Late st Contact Info) Description 04/28/2024 12:00 PM EDT Appointment [place] [address] documented as of this encounter Visit Diagnoses Not on filedocumented in this encounter Care Teams Memory Care Program Resident Relationship Specialty Start Date End Date Arelis Michele MD [address] [place] [address] PCP - General Family Medicine 08/01/18 02/11/24 documented as of this encounter
--- OUTSIDE RECORDS SUMMARY | 2024-04-06 02:28 | XMS_ITS | Encounter Summary ---
Author Organization [facility] [place] [address] Care Team Providers Care Student Affairs Dean Name Role Phone Arelis Michele MD Primary Care Provider [phone] Encounter Details Date Type Department Care Team (Late st Contact Info) Description 04/26/2021 Orders [place] [phone] Alice Carney APRN [facility] [place] [address] Social History Tobacco Use Types Packs/Day Years [...] 12:00 PM EDT Appointment [place] [phone] documented as of this encounter Visit Diagnoses Not on filedocumented in this encounter Care Teams Student Affairs Dean Relationship Specialty Start Date End Date Arelis Michele MD [address] [place], [place] [address] PCP - General Family Medicine 08/01/18 02/11/24 documented as of this encounter
--- OUTSIDE RECORDS SUMMARY | 2024-04-06 02:28 | XMS_ITS | Encounter Summary ---
Author Organization [facility] [place] [address] Care Team Providers Care Gasoline Pump Installer Name Role Phone Arelis Michele MD Primary Care Provider Reason for Visit * Reason Comments Medication Refill Encounter Details Date Type Department Care Team (Late st Contact Info) Description 12/31/2019 Refill Cardiology at [address] [phone] Sean Manzano II, MD [facility] [place] [address] Medication Refill Social History Tobacco Use Types Packs/Day Years [...] 12:00 PM EDT Appointment [place] [address] documented as of this encounter Visit Diagnoses Not on filedocumented in this encounter Care Teams Gasoline Pump Installer Relationship Specialty Start Date End Date Arelis Michele MD [address] [place], [place] [id number] PCP - General Family Medicine 08/01/18 02/11/24 documented as of this encounter
--- OUTSIDE RECORDS SUMMARY | 2024-04-06 02:28 | XMS_ITS | Encounter Summary ---
Author Organization [facility] [place] [address] Care Team Providers Care French Lecturer Name Role Phone Arelis Michele MD Primary Care Provider Encounter Details Date Type Department Care Team (Late st Contact Info) Description 08/29/2020 2:00 PM EST Office [place] [address] Steven Soliz MD [facility] [place] [address] SOB (shortness of breath); Cough variant asthma Social History Tobacco Use Types Packs/Day Years [...] Sign Reading Time Taken Comments Blood Pressure 119/75 08/29/2020 1:39 PM EST Pulse 75 08/29/2020 1:39 PM EST Temperature 36.7 ??C (98 ??F) 08/29/2020 1:39 PM EST Respiratory Rate 24 08/29/2020 1:39 PM EST Oxygen Saturation 96% 08/29/2020 1:39 PM EST Inhaled Oxygen Concentration - - Weight 99 kg (218 lb 4.1 oz) 08/29/2020 1:39 PM EST Height 179 cm (5' 10.47) 08/29/2020 1:39 PM EST Body Mass Index 30.9 08/29/2020 1:39 PM EST documented in this encounter Patient Instructions * Patient Instructions* Steven Soliz MD - 08/29/2020 2:00 PM EST Your Symbicort was refilled. Start using on a scheduled basis: take two puffs in the morning, and two puffs at night. Use your Albuterol inhaler as needed. In addition, I have prescribed you an antibiotics that you will take twice per day for the next 7 days. documented in this encounter Progress Notes * Steven Soliz MD - 08/29/2020 2:00 PM EST Images from the original note were not included. OUTPATIENT PULMONOLOGY FOLLOW-UP NOTE SECTION OF PULMONARY/CRITICAL CARE MEDICINE PRIMARY CARE PHYSICIAN: Arelis Michele MD Chief Complaint: My breathing is still bad Subjective: Mr. Wesly Ybarra is a 67 y.o. 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 When I saw Mr. Ybarra last, it was noted that his dyspnea has been progressing since 09/2019 and he had persistent green sputum production with chronic daily cough over this period of time. I ordered a CT chest with dedicated inspiratory/expiratory imaging, ordered repeat spirometry, and provided him with a culture cup to take home for sputum to be dropped off at [facility] for bacterial/AFB cultures.Is spirometry and cross-sectional imaging are all scheduled for today for appointment. His sputum was collected on 05/25/2020 and was AFB negative but did return positive for MSSA. He has Symbicort and albuterol at home. He only uses his Symbicort PRN (last used earlier this month) but doesn't believe it's made any symptomatic benefit. He tells me he saw Cardiology at [facility] thisspring and may have had a TTE at the time (per him) and it seemed there were no active concerns at the time. He did undergo RHC and LHC in 03/2019 which showed single vessel CAD s/p x1 stent to the LAD. He tells me he continues to have a chronic daily cough productive for significant daily sputum production described as thick and often green, and sometimes streaked with sputum. He denies fevers. He tells me he can only walk about 20 feet prior to having to stop due to dyspnea. He can't ambulate uphills due to dyspnea. He denies chest pain or pressure. He does have orthopnea however this is a chronic feature in the context of his diaphragmatic paresis. He does believe he has daily wheezing. Hethinks he's been on Symbicort for 4-5 years but has only ever used it in a PRN fashion and only a couple times a month at that. His breathing was last normal 5-6 years ago. Review of Systems: A 12 point ROS was negative aside from as listed in the HPI. Past Medical/Surgical History: Patient Active Problem List Diagnosis Code ??? RA (rheumatoid arthritis) M06.9 ??? Osteopenia M85.80 ??? GERD (gastroesophageal reflux disease) K21.9 ??? Hyperlipidemia E78.5 ??? Depression F32.9 ??? HTN (hypertension) I10 ??? Burning sensation in eye H57.89 ??? Chronic cough R05 ??? SOB (shortness of breath) R06.02 ??? Post-nasal drip R09.82 ??? Cardiomyopathy I42.9 ??? 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 G54.5 ??? 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 Chronic rhinitis J31.0 Past Surgical History: Procedure Laterality Date ??? COLON SURGERY 1994 partial removal Medications: Prior to Admission medications Medication Sig Start Date End Date Taking? Authorizing Provider nitroGLYcerin (NITROSTAT) 0.4 mg Tablet, Sublingual PLACE ONE TABLET UNDER THE TONGUE EVERY 5 MINUTES FOR UP TO 3 DOSES NEEDED FOR CHEST PAIN. IF CHEST PAIN STILL PERSISTS CONTACT 911 05/13/18 PROVIDER, HISTORICAL albuterol 90 mcg/actuation HFA Aerosol Inhaler Inhale 2 puffs into the lungs Every 6 hours as needed. PROVIDER, HISTORICAL budesonide-formoterol (SYMBICORT) 80-4.5 mcg/actuation HFA Aerosol Inhaler Inhale 2 puffs into the lungs 2 times daily. 08/01/18 Steven Soliz MD rituximab (RITUXAN IV) Inject into the vein. PROVIDER, HISTORICAL levothyroxine (SYNTHROID) 50 mcg Tablet Take 1 tablet by mouth daily. 01/07/18 Kandy Espana APRN buPROPion (WELLBUTRIN SR OR ZYBAN) 150 mg Tablet Sustained Release 12 hr daily. 07/12/17 PROVIDER, HISTORICAL losartan (COZAAR) 25 mg Tablet daily. 07/12/17 PROVIDER, HISTORICAL metroNIDAZOLE (METROCREAM) 0.75 % Cream as needed. 06/17/17 PROVIDER, HISTORICAL venlafaxine (EFFEXOR-XR) 150 mg Capsule, Sust. Release 24 hr daily. 05/01/17 PROVIDER, HISTORICAL methylPREDNISolone (MEDROL) 4 mg Tablet Take 0.5 tablets by mouth daily. 02/28/16 Kandy Espana APRN atorvastatin (LIPITOR) 10 mg Tablet Take 10 mg by mouth daily. PROVIDER, HISTORICAL carvedilol (COREG) 12.5 mg Tablet daily. 12/26/15 PROVIDER, HISTORICAL clopidogrel (PLAVIX) 75 mg tablet Take 75 mg by mouth daily. PROVIDER, HISTORICAL aspirin 81 mg EC tablet Take 81 mg by mouth daily. PROVIDER, HISTORICAL terazosin (HYTRIN) 1 mg capsule Take 1 mg by mouth nightly. PROVIDER, HISTORICAL albuterol (PROVENTIL HFA;VENTOLIN HFA) 90 mcg/actuation inhaler Inhale 2 puffs into the lungs every4 hours as needed. Use with spacer PROVIDER, HISTORICAL fluticasone (FLONASE) 50 mcg/actuation nasal spray 1 spray by Each Nare route 2 times daily. 11/09/13 Robin Dodge MD venlafaxine (EFFEXOR-XR) 75 mg 24 hr capsule Take 75 mg by mouth daily. PROVIDER, HISTORICAL Cholecalciferol, Vitamin D3, (VITAMIN D-3) 2,000 unit Cap Take by mouth daily. PROVIDER, HISTORICAL lovastatin (MEVACOR) 10 mg tablet Take 10 mg by mouth nightly. PROVIDER, HISTORICAL cevimeline (EVOXAC) 30 mg capsule Take 30 mg by mouth daily. PROVIDER, HISTORICAL acetaminophen (TYLENOL EXTRA STRENGTH) 500 mg tablet Take 1,000 mg by mouth every 6 hours as needed. PROVIDER, HISTORICAL omeprazole (PRILOSEC) 40 mg capsule Take 40 mg by mouth daily. PROVIDER, HISTORICAL MULTIVITAMIN/IRON/FOLIC ACID (DAILY MULTI ORAL) Take 1 tablet by mouth daily. PROVIDER, HISTORICAL CIS Free Text Med - OTC mositurizing eye drops 11/02/10 temazepam (RESTORIL) 30 mg capsule 30 mg, PO, QHS 11/02/10 Allergies: Allergies Allergen Reactions ??? Calcium kidney stones ??? Levothyroxine ??? 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 male, NAD HEENT: Moist mucous membranes Neck: Supple Lymphatics: No obvious cervical lymphadenopathy. Cardiovascular: Nl s1/s2, rrr, no murmurs, no gallops Respiratory: Crackles in the R mid lung field, decreased breath sounds R lower lung field, no wheezing, speaking in complete sentences on room air GI: soft, nt, nd, +bs Musculoskeletal: Normal bulk and tone Extremities: Trace bilateral LE edema, no clubbing Integument: No rash. Neurologic: Alert and oriented, moves all extremities appropriately, no obvious focal deficits Psychologic: Normal mood and affect. Labs: 05/25/20 Sputum AFB ([facility]): Negative stain/culture 05/25/20 Sputum culture ([facility]): MSSA PFTS: DATE FVC FEV1 FEV1/FVC DLCO TLC RV SOLAR APPLICATIONS DEVELOPMENT ENGINEER? 06/16/13 70% 73% 77% 91% -- -- -- 11/09/13 63% 66% 78% -- -- -- No 10/30/14 57% 55% 79% 70% 70% 73% No 08/01/18 UPRIGHT 2.65L/58% 2.07L/61% 78% 85% -- -- -- 08/01/18 SUPINE 2.13L/46% 1.68L/50% 79% -- -- -- -- 08/29/20 2.59L/61% 1.98L/62 76% 79% 91% 137% 11/16/13 Methacholine Challenge: Negative 08/01/18 Mouth Pressures: MIP: 24%/MEP: 32% 08/01/18 Walk Test: Resting SPO2 95%; 91% after walking 375 feet on room air Imaging: (Images personally reviewed) 08/29/20 CT Chest (Dynamic inspiratory/expiratory protocol): Expiratory cut proximal trachea with <50% dynamic airway collapse Expiratory cut distal trachea without radiographically significant airway collapse Expiratory cut R and L mainstem bronchi without radiographically significant airway collapse Contract Attorney view showing relatively similar appearance of elevated R hemidiaphragm as compared to prior CXRs 08/13/18 Fluoroscopic Diaphragm Study ([facility]): Marked decreased movement of the right hemidiaphragm suggesting paresis 06/16/13 CXR: No significant interval change. Specifically no pulmonary abnormalities. Film and interpretation reviewed by the attending 08/2014 TTE: LVEf 45%, segmental wall hypokinesis, no sig. Valve disease Assessment: Wesly Ybarra is a 67 y.o. man (never-smoker) who presents to the pulmonology clinic for follow-up of chronic dyspnea on exertion. 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 Of this year, and he also has chronic daily cough productive for green sputum over the last year. Today's spirometry is reassuring as there isn't substantial change from prior. I do have a harder time reconciling the elevated RV seen today relative to his last study. His dynamic airway CT study from today does not show radiographic evidence of excessive dynamic airway collapse. It seems he's had recent Cardiology evaluation a few months ago which was reassuring. From a PFT and imaging standpoint, I have not definitively found evidence to readily explain his progressive symptomatology. Recommendations: ?? Cefpodoxime 200 mg BID x7 days for MSSA ?? Recommend he start using his Symbicort scheduled x2 PUFFS BID; refilled at 160/4.5 dosing ?? Start using Albuterol HFA in an as needed fashion ?? I have provided him with a spacer to use with his inhalers ?? Inhaler training was provided today ?? I have provided Mr. Ybarra with a spacer as well ?? Note to be sent to Arelis Michele MD and Uriah Sommers MD ?? Follow-up with me in 12 weeks Closest hospital to home: [facility] (lives 1 hour [place] minutes from ) Steven Soliz MD, 08/29/2020, 11:10 AM Interventional Pulmonology Section of Pulmonary & Critical Care Pager: [phone] documented in this encounter Plan of Treatment Upcoming Encounters Date Type Department Care Team (Late st Contact Info) Description 04/28/2024 12:00 PM EDT Appointment [place] [address] documented as of this encounter Visit Diagnoses Diagnosis SOB (shortness of breath) Shortness of breath Cough variant asthma Cough variant asthma documented in this encounter Care Teams French Lecturer Relationship Specialty Start Date End Date Arelis Michele MD [address] [place] [address] PCP - General Family Medicine 08/01/18 02/11/24 documented as of this encounter
--- OUTSIDE RECORDS SUMMARY | 2024-04-06 02:28 | XMS_ITS | Encounter Summary ---
[place] [address] Care Team Providers Care Back Pad Inspector Name Role Phone Arelis Michele MD Primary Care Provider [phone] Encounter Details Date Type Department Care Team (Late Contact Info) Description 03/10/2020 [place] [address] Vita Castaneda Social History Tobacco Use Types Packs/Day Years [...] encounter Miscellaneous Notes * Telephone Encounter - Vita Castaneda - 03/10/2020 1:08 PM EDT Stroz Friedberg calls to sched appt for pt. Called pt to schedule. No answer, lm on vm. Sending letter documented in this encounter Plan of Treatment Upcoming Encounters Date Type Department Care Team (Late st Contact Info) Description 04/28/2024 12:00 PM EDT [place] [address] documented as of this encounter Visit Diagnoses Not on filedocumented in this encounter Care Teams Back Pad Inspector Relationship Specialty Start Date End Date Arelis Michele MD [address] [place] [address] PCP - General Family Medicine 08/01/18 02/11/24 documented as of this encounter
--- OUTSIDE RECORDS SUMMARY | 2024-04-06 02:28 | XMS_ITS | Encounter Summary ---
[place] [address] Care Team Providers Care Rn Case Management Name Role Phone Arelis Mihcele MD Primary Care Provider Encounter Details Date Type Department Care Team (Late Contact Info) Description 03/08/2021 [place] [address] Juany Romo Social History Tobacco Use Types [...] encounter Miscellaneous Notes * Telephone Encounter - Juany Romo - 03/08/2021 4:19 PM EDT Faxed Rituxan order, demo sheet, and last OV note to [facility] infusion. No PA needed per medicare guidelines. documented in this encounter Plan of Treatment Upcoming Encounters Date Type Department Care Team (Late st Contact Info) Description 04/28/2024 12:00 PM EDT [place]ment [place] [address] documented as of this encounter Visit Diagnoses Not on filedocumented in this encounter Care Teams Rn Case Management Relationship Specialty Start Date End Date Arelis Michele MD [address] [place] [address] PCP - General Family Medicine 08/01/18 02/11/24 documented as of this encounter
--- OUTSIDE RECORDS SUMMARY | 2024-04-06 02:28 | XMS_ITS | Encounter Summary ---
Author Organization [facility] [place] [address] Care Team Providers Care Heating Equipment Repairer Name Role Phone Arelis Michele MD Primary Care Provider Reason for Visit * Reason Comments Follow-up Encounter Details Date Type Department Care Team (Late st Contact Info) Description 05/23/2020 3:30 PM EDT Office [place] [address] Steven Soliz MD [facility] [place] [address] Diaphragm paralysis; ZEPEDA (dyspnea on exertion) Social History Tobacco [...] Sign Reading Time Taken Comments Blood Pressure 121/75 05/23/2020 3:23 PM EDT Pulse 72 05/23/2020 3:23 PM EDT Temperature 36.7 ??C (98.1 ??F) 05/23/2020 3:23 PM ED T Respiratory Rate 28 05/23/2020 3:23 PM EDT Oxygen Saturation 99% 05/23/2020 3:23 PM EDT Inhaled Oxygen Concentration - - Weight 92.1 kg (203 lb) 05/23/2020 3:23 PM EDT Height 180.3 cm (5' 11) 05/23/2020 3:23 PM EDT Body Mass Index 28.31 05/23/2020 3:23 PM EDT documented in this encounter Progress Notes * Steven Soliz MD - 05/23/2020 3:30 PM EDT Images from the original note were not included. OUTPATIENT PULMONOLOGY FOLLOW-UP NOTE SECTION OF PULMONARY/CRITICAL CARE MEDICINE PRIMARY CARE PHYSICIAN: Arelis Michele MD Chief Complaint: I have been puffing more Subjective: Mr. Wesly Ybarra is a 67 y.o. 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 He has been lost to interval follow-up since. Since last being seen, his dyspnea has worsened since 09/2019 but has not necessarily continued to progress over the last few months. He can walk a few hundred yards on flat ground at a slow pace prior to having to stop due to dyspnea or joint pain, but feels dyspneic while walking after <50 feet. He can not walk up 1 flight of stairs, but this is not a new finding. He has a chronic daily coughproductive for green sputum (a few tablespoons per day he believes). No dedicated cross-sectional imaging of the chest on file. He has lost 10 lbs over the summer unintentionally, and his energy is poor (energy last normal 7-8 years ago). He denies fevers, URI symptoms or sick contacts. His dyspneaaffects his quality of life as he is not able to keep up with his granddaughter. Review of Systems: A 12 point ROS [...] History: Procedure Laterality Date ??? 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 [...] deficits Psychologic: Normal mood and affect. Labs: None today PFTS: DATE FVC FEV1 FEV1/FVC DLCO TLC RV PEDIATRIC CLINICAL NURSE SPECIALIST? 06/16/13 70% 73% 77% 91% -- -- -- 11/09/13 63% 66% 78% -- -- -- No 10/30/14 57% 55% 79% 70% 70% 73% No 08/01/18 UPRIGHT 2.65L/58% 2.07L/61% 78% 85% -- -- -- 08/01/18 SUPINE 2.13L/46% 1.68L/50% 79% -- -- -- -- 11/16/13 Methacholine Challenge: Negative 08/01/18 Mouth Pressures: MIP: 24%/MEP: 32% 08/01/18 Walk Test: Resting SPO2 95%; 91% after walking 375 feet on room air Imaging: (Images personally reviewed) 08/13/18 Fluoroscopic Diaphragm Study ([facility]): Marked decreased movement of the right hemidiaphragm suggesting paresis 06/08/15 CXR: No acute disease and no significant change since the previous study. 06/16/13 CXR: No significant interval change. Specifically no pulmonary abnormalities. Film and interpretation reviewed by the attending 08/2014 TTE: LVEf 45%, segmental wall hypokinesis, no sig. Valve disease Decision making: ?? One chronic problem, worsening Assessment: Wesly Ybarra is a 67 y.o. man (never-smoker) who presents to the pulmonology clinic for follow-up of chronic dyspnea on exertion. 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 His dyspnea has progressed since September of this year, and he also has chronic daily cough productive for green sputum over the last year. There are a few things to consider. Namely, he has not had dedicated cross-sec tional imaging of his chest. His history of rheumatoid arthritis on unknown immunologic therapy puts him at risk for pulmonary involvement from both a connective tissue, infectious or drug toxicity standpoint. In addition, his history of rheumatoid arthritis and obesity also put him at risk for airway involvement such as tracheobronchomalacia or bronchiectasis. Recommendations are as noted below. Recommendations: ?? Dynamic CT for TBM/EDAC evaluation and repeat spirometry ordered ?? Provided sputum cup to be collected for bacterial and AFB cultures for [facility] drop-off ?? Note to be sent to Arelis Michele MD and Uriah Sommers MD ?? Follow-up with me in 12 weeks Closest hospital to home: [facility] (lives 1 hour 15 minutes from ) Steven Soliz MD, 05/23/2020, 4:57 PM Interventional Pulmonology Section of Pulmonary & Critical Care Pager: [phone] documented in this encounter Plan of Treatment Upcoming Encounters Date Type Department Care Team (Late st Contact Info) Description 04/28/2024 12:00 PM EDT [place] [address] documented as of this encounter Results * Pulmonary Function Testing [...] / FVC LLN 62 % COMPAS PFT [id number] Actual Pre-BD 1.67 L/s COMPAS PFT [id number] Pre-BD % of Predicted 70 % COMPAS PFT [id number] Predicted 2.39 L/s COMPAS PFT [id number] Pre-BD Z-Score -0.78 COMPAS PFT DLCO Hb [...] respiratory abnormality Diaphragm paralysis Disorders of diaphragm ZEPEDA (dyspnea on exertion) Other dyspnea and respiratory abnormality documented in this encounter Care Teams Heating Equipment Repairer Relationship Specialty Start Date End Date Arelis Michele MD [address] [place] [address] PCP - General Family Medicine 08/01/18 02/11/24 documented as of this encounter
--- OUTSIDE RECORDS SUMMARY | 2024-04-06 02:28 | XMS_ITS | Encounter Summary ---
[place] [address] Care Team Providers Care Obstetrical Tech Name Role Phone Arleis Michele MD Primary Care Provider [phone] Reason for Visit * Reason Comments Medication Management Patient Education Encounter Details Date Type Department Care Team (Late st Contact Info) Description 07/07/2021 Specialty [place] [address] Mariela Ritter, [facility] Social History Tobacco Use Types Packs/Day Years [...] this encounter Progress Notes * Mariela Ritter [facility] - 07/07/2021 10:52 AM EDT Specialty Pharmacy Consultation; Mariela Ritter [facility] Medication Management (CMM) Wesly Rutherford Cyndie Diagnosis: Rheumatoid Arthritis Therapy Start Date: 07/13/21 Contact in person or via telephone:telephone Mr. Wesly Ybarra is a 70 y.o. (1950) male who was contacted in regard to specialty medication. Spoke with patient regarding Xeljanz . A review of the medication therapy was performed. The medication was Filled as scheduled, and all medication related questions and concerns were addressed. The specialty pharmacy staff will follow up with the patient 5-7 days prior to next refill. Is the patient willing to proceed with the Clinical Assessment? Yes Summary and Recommendations: Wesly Rutherford Kaylanmarcy was contacted via telephone for a review of Xeljanz for the treatment of rheumatoid arthritis. Patient is aware of the prior authorization process and timeline and was given [facility] contact information for any questions. Patient was educated on the dosing schedule, 11 mg by mouth once daily. Patient was educated on theXeljanz labeled black box warnings regarding the risk of serious infections including tuberculosis,thrombosis, and malignancies. Discussed other precautions with Xeljanz including hypersensitivity, GI perforation, and lipid abnormalities. Patient was educated on the importance of infection prevention including best practices for hand hygiene and the annual flu vaccine. Discussed the need to avoid live vaccines during treatment. Dose hold parameters were reviewed including suspected/known infection, prescribed antibiotic therapy, or scheduled surgery. Patient agrees to contact the clinic to review dose hold in these settings. Patient was made aware that data is limited on the use of Xeljanzduring /. Educated patient on the potential side effects of Xeljanz includingheadache, nausea, rash, and infections such as URTI/sinusitis. Clinic follow-up needed: yes - with Alice Carney Allergies and Drug intolerance: Allergies Allergen Reactions ??? Calcium kidney stones ??? Levothyroxine ??? Lisinopril Dry cough ??? Sulfasalazine (Bulk) Nausea, diarrhea, CARRANZA Problem List: Patient Active Problem List Diagnosis Code ??? RA (rheumatoid arthritis) M06.9 ??? Osteopenia M85.80 ??? GERD (gastroesophageal reflux disease) K21.9 ??? Hyperlipidemia E78.5 ??? Depression F32.A ??? HTN (hypertension) I10 ??? Burning sensation in eye H57.89 ??? Chronic cough R05.3 ??? SOB (shortness of breath) R06.02 ??? Post-nasal drip R09.82 ??? Cardiomyopathy I42.9 ??? 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 G54.5 ??? 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 Chronic rhinitis J31.0 ??? CAD (coronary artery disease) I25.10 ??? Right knee sprain S83.91XA Special Dietary or Hydration Requirements: no Medication Reconciliation Discrepancies (compared to [facility] med list) -none Medication List: Current Outpatient Medications Medication Sig Note Dispense Refill ??? tofacitinib (Xeljanz XR) 11 mg Tablet Sustained Release 24 hr Take 11 mg by mouth daily. Indications: rheumatoid arthritis 30 tablet 5 ??? isosorbide mononitrate CR (Imdur) 30 mg Tablet Sustained Release 24 hr Take 30 mg by mouth daily. ??? metoprolol succinate XL (Toprol-XL) 25 mg Tablet Sustained Release 24 hr Take 25 mg by mouth daily. ??? budesonide-formoteroL (Symbicort) 160-4.5 mcg/actuation HFA Aerosol Inhaler Inhale 2 puffs intothe lungs 2 times daily. 1 Inhaler 12 ??? venlafaxine (EFFEXOR) 75 mg Tablet Take 75 mg by mouth daily. ??? ascorbic acid, vitamin C, (VITAMIN C) 500 mg Tablet, Chewable Take by mouth daily. ??? diclofenac (VOLTAREN) 1 % Gel Apply 4g topically to shoulder up to 4x daily. (Patient not taking: Reported on 12/15/2020) 100 g 3 ??? atorvastatin (LIPITOR) 40 mg Tablet Take 1 tablet by mouth daily. 90 tablet 3 ??? clopidogrel (PLAVIX) 75 mg Tablet Take 1 tablet by mouth daily. 90 tablet 3 ??? benzonatate (TESSALON) 200 mg Capsule Take 1 capsule by mouth 3 times daily as needed for Cough. (Patient not taking: Reported on 12/15/2020) 30 capsule 0 ??? nitroGLYcerin (NITROSTAT) 0.4 mg Tablet, Sublingual PLACE ONE TABLET UNDER THE TONGUE EVERY 5 MINUTES FOR UP TO 3 DOSES NEEDED FOR CHEST PAIN. IF CHEST PAIN STILL PERSISTS CONTACT 911 1 ??? albuterol 90 mcg/actuation HFA Aerosol Inhaler Inhale 2 puffs into the lungs Every 6 hours as needed. ??? rituximab (RITUXAN IV) Inject into the vein. 10/20/2018: ON HOLD ??? levothyroxine (SYNTHROID) 50 mcg Tablet Take 1 tablet by mouth daily. ??? buPROPion (WELLBUTRIN SR OR ZYBAN) 150 mg Tablet Sustained Release 12 hr Take 150 mg by mouth daily. ??? losartan (COZAAR) 25 mg Tablet Take 25 mg by mouth daily. 07/22/2017: Received from: External Pharmacy ??? metroNIDAZOLE (METROCREAM) 0.75 % Cream as needed. 07/22/2017: Received from: External Pharmacy ??? venlafaxine (EFFEXOR-XR) 150 mg Capsule, Sust. Release 24 hr Take 150 mg by mouth daily. Takes 225 mg daily ??? methylPREDNISolone (MEDROL) 4 mg Tablet Take 0.5 tablets by mouth daily. (Patient not taking: Reported on 02/14/2021) 45 tablet 0 ??? carvedilol (COREG) 12.5 mg Tablet Take 12.5 mg by mouth daily. ??? aspirin 81 mg EC tablet Take 81 mg by mouth daily. ??? terazosin (HYTRIN) 1 mg capsule Take 1 mg by mouth nightly. ??? albuterol (PROVENTIL HFA;VENTOLIN HFA) 90 mcg/actuation inhaler Inhale 2 puffs into the lungs every 4 hours as needed. Use with spacer ??? fluticasone (FLONASE) 50 mcg/actuation nasal spray 1 spray by Each Nare route 2 times daily. 16g 12 ??? Cholecalciferol, Vitamin D3, (VITAMIN D-3) 2,000 unit Cap Take 2,000 Units by mouth daily. ??? acetaminophen (TYLENOL EXTRA STRENGTH) 500 mg tablet Take 1,000 mg by mouth every 6 hours as needed. ??? omeprazole (PRILOSEC) 40 mg capsule Take 40 mg by mouth daily. ??? MULTIVITAMIN/IRON/FOLIC ACID (DAILY MULTI ORAL) Take 1 tablet by mouth daily. ??? CIS Free Text Med - OTC mositurizing eye drops (Patient not taking: No sig reported) ??? temazepam (RESTORIL) 30 mg capsule 30 mg, PO, QHS (Patient taking differently: Take 30 mg by mouth nightly.) No current facility-administered medications for this visit. Most Recent Vitals: Ht Readings from Last 1 Encounters: 02/14/21 179 cm (5' 10.47) Wt Readings from Last 3 Encounters: 02/14/21 102.5 kg (226 lb) 12/15/20 100.9 kg (222 lb 8 oz) 08/29/20 99 kg (218 lb 4.1 oz) Temp Readings from Last 3 Encounters: 02/14/21 36.6 ??C (97.8 ??F) (Temporal) 12/15/20 35.9 ??C (96.6 ??F) (Tympanic) 08/29/20 36.7 ??C (98 ??F) BP Readings from Last 3 Encounters: 02/14/21 127/68 12/15/20 140/61 08/29/20 119/75 Pulse Readings from Last 3 Encounters: 02/14/21 59 12/15/20 89 08/29/20 75 There is no height or weight on file to calculate BMI. Pertinent Lab values: Lab Results Component Value Date NA 142 12/15/2020 K 4.0 12/15/2020 CL 105 12/15/2020 CO2 28 12/15/2020 BUN 12 12/15/2020 CREATININE 0.92 12/15/2020 GLUCOSE 100 12/15/2020 GLUCFASTING 81 03/21/2019 CALCIUM 9.5 12/15/2020 Lab Results Component Value Date ALT 19 12/15/2020 AST 24 12/15/2020 ALKPHOS 124 12/15/2020 BILITOT 0.4 12/15/2020 BILIDIR 0.1 10/31/2015 BILIDIR 0.1 10/31/2015 ALBUMIN 4.2 12/15/2020 PROT 6.7 12/15/2020 Lab Results Component Value Date WBC 9.0 12/15/2020 HGB 16.9 (H) 12/15/2020 HCT 51.2 (H) 12/15/2020 MCV 90.9 12/15/2020 PLATELET 237 12/15/2020 No results found for: HA1C Immunization History Administered Date(s) Administered ??? DTaP 05/08/2012 ??? Influenza PF, Split (High Dose) 07/22/2017 ??? Influenza Vaccine w/Preservative, Split 06/02/2012, 07/01/2013, 06/02/2014, 06/02/2015 ??? Influenza Vaccine, Whole 06/29/2005 ??? Influenza, Trivalent, Adjuvanted 07/02/2019 ??? Pneumococcal Conjugate (13 Valent) 03/09/2013 ??? Pneumococcal Polyvalent 23 02/15/2004, 11/09/2013 ??? Td, adult 07/03/1996, 09/28/2005 Assessment and Recommendations: Patient Counseling Patient informed of specialty services: Yes Patient accepted offer to certified substance abuse counselor: select all, adherence/missed doses, cost of medications/cost implications, doses and administration, possible drug/OTC drug and food interactions, possible adverse side effects and management, pharmacy contact information, lab monitoring/follow up, possible drug/Rx drug interactions, safe handling, storage, and disposal, therapeutic rationale Medication Management Summary Topics discussed: reviewed medication changes since last visit, medication safety precautions education provided, drug interaction education provided to patient, safe handling, storage, and disposal discussed, possible adverse effects and management discussed, lab monitoring and follow-up discussed, cost of medications and cost implications discussed, adherence and missed doses discussed, effects of medication in patients over 65 years of age discussed, health goals discussed, monitoring medication discussed, over the counter products discussed, preventative care discussed, recommendations to doctor discussed, reminder to refill or seed cone picker medication discussed, self-monitoring discussed, start medication discussed, stop medication discussed, timing of medications discussed, vaccination discussed, lifestyle modification education, referral needs discussed Time spent: 1-15 min Treatment Outcomes 07/07/2021 1054 Disease progression: Moderate Reviewed in detail with patient: Dose appropriateness based on recommended standard dosing Current medication list including OTC medications Medication and disease problems Allergies Comorbid conditions/ Problem List Past adverse events if any Special needs of the patient including physical and cognitive limitations Goals of therapy and management strategies Warnings, precautions, and contraindications Side effects Drug-drug and drug-food interactions Administration instructions including dose, frequency and method Handling, storage, and disposal Verifying expiration dates on products before use Rotating medication inventory to use oldest product first Relevant lab data Treatments impact on disease Dose appropriateness based on recommended standard dosing schedule, including any variations from FDA approved dosing Patient verbalizes understanding and is able to read-back instructions on self-administration/injection, proper storage, drug stability, importance of adherence and management strategies, side effect avoidance and mitigation strategies, and interruptions in therapy: Yes Patient is aware a licensed pharmacist is available 24 hours a day, 7 days a week to discuss medication-related questions or concerns: Yes Patient verbalizes understanding of the common side effect profile of their medication. The patient is able to call 911 or seek urgent care if signs/symptoms of allergy or harmful adverse reactions occur: Yes Additional care/services needed: No Additional equipment/supplies required: No Patient satisfied with care/services provided: Yes Specialty Assessment: Physical and Cognitive Assessment: Functional limitations identified: No Cognitive limitations identified: No Concern regarding orientation/memory: No Concern with reasoning/judgement: No Social Assessment: Does patient have a primary memory care director: No Does patient have an emergency contact on file: Yes Does patient need referral to adult services librarian: No Does patient need referral to advocacy group: No Home Health Assessment: Is the patient in a safe home environment?: Yes Is the patient able to store their medication as directed?: Yes Does the patient have a support network at home?: Yes Reviewed potential home safety hazards with patient: Yes Economic Assessment: Patient is agreeable to medication copay: Yes Actual Copay: $: 2 Days Supply: 30 Welcome Packet and Rights and Responsibilities: Patient provided welcome packet/rights and responsibilities: Yes Specialty Med Adherence Patient Demonstrates Understanding of Importance of Adherence: Yes Educational Information or Adherence Tools Provided: Yes Patient Reported X Missed Doses in the Last Month: 0 Provider-Estimated Medication Adherence Level: 90-100% Adherence Tools Used: alarm Therapy Assessment: Current Medication Dosing/Route/Frequency: Xeljanz 11 XR Take 1 tablet by mouth once daily. Appropriate Therapy: Yes Current joints affected: back and knees Current pain rating (1-10): 5 Estimated duration of morning joint stiffness: none Estimated number of recent flares: no Recent systemic corticosteroid use: no Patient's Problems/Needs: RA/needs help controlling pain Expected Outcome: decrease in pain Patient's goals: Patient's specific desired goal: Patient is hoping to have a decrease in pain in joints by 50%. Measured by: prednisone usage, # of flares Time-frame to meet goal: 3 to 6 months Monitoring requirements for prescribed medication: CBC, lipids, LFTs, signs/symptoms of infections,abdominal symptoms, skin examination Care Plan Reviewed and Approved by both Pharmacist and Patient: Yes Interventions (if applicable): No Pharmacist follow-up needed: Yes Patient understands no changes to current drug regimen were made at the appointment and that RPh isproviding recommendations (summary located at top of note) for provider review and follow up. Mariela Ritter RPH 07/07/21 10:56 AM documented in this encounter Plan of Treatment Upcoming Encounters Date Type Department Care Team (Late st Contact Info) Description 04/28/2024 12:00 PM EDT Appointment [place] [address] documented as of this encounter Visit Diagnoses Not on filedocumented in this encounter Care Teams Obstetrical Tech Relationship Specialty Start Date End Date Arelis Michele MD [address] [place] [address] PCP - General Family Medicine 08/01/18 02/11/24 documented as of this encounter
--- OUTSIDE RECORDS SUMMARY | 2024-04-06 02:28 | XMS_ITS | Encounter Summary ---
Author Organization [facility] [place] [address] Care Team Providers Care Programmable Logic Controller Assembler Name Role Phone Arelis Michele MD Primary Care Provider [phone] Encounter Details Date Type Department Care Team (Late Contact Info) Description 05/16/2020 [place] [address] Guera Holloway LNA Social History Tobacco Use Types Packs/Day Years [...] encounter Miscellaneous Notes * Telephone Encounter - Guera Holloway LNA - 05/16/2020 12:00 PM EDT Pt calling to confirm appt on 05/23 has been changed to 3:30. documented in this encounter Plan of Treatment Upcoming Encounters Date Type Department Care Team (Late st Contact Info) Description 04/28/2024 12:00 PM EDT [place] [address] documented as of this encounter Visit Diagnoses Not on filedocumented in this encounter Care Teams Programmable Logic Controller Assembler Relationship Specialty Start Date End Date Berrian, Arelis M, MD [address] [place] [address] PCP - General Family Medicine 08/01/18 02/11/24 documented as of this encounter
--- OUTSIDE RECORDS SUMMARY | 2024-04-06 02:28 | XMS_ITS | Encounter Summary ---
Author Organization [facility] [place] [address] Care Team Providers Care Division Sales Manager Name Role Phone Arelis Michele MD Primary Care Provider [phone] Reason for Referral * Diagnostic Test (Routine) - Closed Specialty Diagnoses / Procedures Referred By Azam corbett Referred To Contact Radiology Diagnoses ZEPEDA (dyspnea on exertion) Diaphragm paralysis Procedures CT Chest wo Contrast (Generic) Steven Soliz MD [facility] [place] [address] [facility] [place] [address] Referral ID Status Reason Start Date Expiration Date V isits Requested Visits Authorized [id number] Closed Specialty Service Requested 05/23/2020 11/20/2021 1 1 Encounter Details Date Type Department Care Team (Late st Contact Info) Description 05/23/2020 Orders [place] [address] Steven Soliz MD [facility] [place] [address] ZEPEDA (dyspnea on exertion); Diaphragm paralysis Social History Tobacco Use Types Packs/Day Years [...] 12:00 PM EDT [place]ment [place] [address] documented as of this encounter Results * CT Chest wo [...] report, please contact the number below. ? Electronically signed by: Parisa Alejandro MD, [facility] ([phone]), at 08/29/2020 5:15 PM Narrative 08/29/2020 5:15 PM EST EXAMINATION: CT [...] 06/08/2015 FINDINGS: Trachea morphology: ? Central airways [id number] luminal dimensions: Trachea at level of aortic [...] radiograph 06/08/2015 FINDINGS: Trachea morphology: Central airways [id number] luminal dimensions: Trachea at level of aortic [...] structures: Stable anterior compression deformity of the [id number] body. No suspicious lytic or sclerotic osseous [...] this report, please contact the number below. Steven Soliz MD IMG CT ORDERABLES documented in this encounter Visit Diagnoses Diagnosis ZEPEDA (dyspnea on exertion) Other dyspnea and respiratory abnormality Diaphragm paralysis Disorders of diaphragm ZEPEDA (dyspnea on exertion) Other dyspnea and respiratory abnormality Diaphragm paralysis Disorders of diaphragm documented in this encounter Care Teams Division Sales Manager Relationship Specialty Start Date End Date Arelis Michele MD [address] [place] [address] PCP - General Family Medicine 08/01/18 02/11/24 documented as of this encounter
--- OUTSIDE RECORDS SUMMARY | 2024-04-06 02:28 | XMS_ITS | Encounter Summary ---
Author Organization [facility] [place] [address] Care Team Providers Care Field Service Technician Poultry Name Role Phone Arelis Michele MD Primary Care Provider [phone] Encounter Details Date Type Department Care Team (Latest Contact Info) Description 02/28/2021 10:00 AM EDT TH Visit (TeleHealth) [place] [address] Alice Carney, [employer]Y [employer] AID [facility] [place] [address] Osteoporosis, unspecified osteoporosis type, unspecified pathological fracture presence; Rheumatoid arthritis with positive rheumatoid factor, involving [...] Progress Notes * Alice Carney APRN - 02/28/2021 10:00 AM EDT Rheumatology Follow-up Visit TELEPHONE VISIT This visit was conducted via telephone due to COVID19 restrictions. I advised Wesly Ybarra thatthis telephone visit may be billed similar to a clinic visit to patient and insurance company. Patient agreed to continue this visit. Wesly Ybarra is a 70 y.o.male seen for ongoing evaluation and management of seropositive rheumatoid arthritis and to review treatment options. Last OV: 02/14/2021 ([facility] -- NU visit) HPI: Background: 05/2002 (approx) sudden onset fatigue and aches in hands but whole body affected. Body wide joint aches for several months but then sudden onset of fatigue and hands joint aches. Current Treatment: Prednisone 10 mg daily started 02/15/2021 with about 75% improvement in AM hand clenching and takes about 30 minutes to resolve. This is a huge improvement. Treatments tried: Enbrel helped the most -- [...] including no worsening of SOB orfluid overload. I spoke with ASHLEY Wise, in [facility] infusion lab this morning -- last infusion was in 2017 for name brand Rituximab. Orencia tried [id number] and stopped due to lack of efficacy and dyspnea. SSZ started 12/2020 and tried for about 2.5-3 weeks but stopped due to nausea, diarrhea, rash, wheezing worsened. Treatment considerations: 02/14/2021 Denied hx blood clots. + Hx diverticulitis with 18 bowel resected. + CMP. SOB/ZEPEDA -- multifactorial as noted elsewhere. CAD and CMP: [facility] Cardiology OV notes from 09/27/2020 (Wesly Munoz MD) reviewed today (02/28/2021). ?? CAD: s/p CABG (Patient Denies!) and s/p mid LAD stent March 2019. Additional workup with CPET planned at [facility] for eval of ongoing SOB (Patient says [...] and likely multifactorial including COPD, R hemidiaphragm. 02/14/2021 OV: Only able to use his left lung due to R side hemiparesis. SOB is an ongoing issue, was evaluated in Pulmonology but inconclusive workup -- 08/29/2021 notes reviewed at 02/14/2021 OV. Gardening but very difficult due to fatigue and joint pain. Can't walk up a flight of stairs due to his breathing. Marked AM stiffness with inability to straighten his hands out of a claw position for 2-3 hours. Marked fatigue. Past OV 01/14/2021 ([facility]) No improvement with the Orencia, Has had 7-8 infusions he reports. He has had bad breathing, worsening puffing, cough; saw cardiology and pulm per pt, and workups reassuring Enbrel, rituximab. No Humira. No Actemra No h/o blood clot With activity, joint pain feels a little but worse Nothing looks swollen Couple hours for hands to loosen up, in the morning they are curled [facility] blood work with Dr. 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 Problem List Depression Diaphragm paralysis (R hemidiaphragm) HLD HTN CAD s/p LAD stent 03/2019; remote CABG Mild ischemic cardiomyopathy Chronic stable angina [place] syndrome Hypothyroid Perhipheral Neuropathy Hx diverticulitis s/p partial bowel resection Osteoporosis with pathologic vertebral fracture per [facility] notes but not on file at [facility]. Physical Examination: Not done (telephone visit) Patient [...] ttp Knees: Crepitus and FROM bl DATA: Recent Results (from the past 3360 hour(s)) Sedimentation rate Collection Time: 12/15/20 4:04 PM Result Value Ref Range Sed Rate 5 3 - 46 mm/hr CRP, acute inflammation Collection Time: 12/15/20 4:04 PM Result Value Ref Range CRP 3.4 <=4.9 mg/L Comprehensive metabolic panel (non-fasting) Collection Time: 12/15/20 4:04 PM Result Value Ref Range Glucose Lvl 100 65 - 199 mg/dL BUN 12 10 - 20 mg/dL Creatinine 0.92 0.80 - 1.50 mg/dL Sodium 142 135 - 145 mmol/L Potassium 4.0 3.5 - 5.0 mmol/L Chloride 105 98 - 107 mmol/L CO2 28 22 - 31 mmol/L Anion Gap 9 5 - 15 mmol/L Calcium 9.5 8.5 - 10.5 mg/dL Total Protein 6.7 6.1 - 8.0 gm/dL Albumin 4.2 3.2 - 5.2 gm/dL AST 24 0 - 39 unit/L ALT 19 0 - 55 unit/L Alk Phos 124 40 - 130 unit/L Total Bilirubin 0.4 0.2 - 1.3 mg/dL Estimated GFR 83 >=60 mL/min/1.73 m?? Hemogram Collection Time: 12/15/20 4:04 PM Result Value Ref Range WBC 9.0 4.0 - 9.5 x10(3)/mcL RBC 5.63 (H) 4.58 - 5.54 x10(6)/mcL Hemoglobin 16.9 (H) 13.7 - 16.5 gm/dL Hematocrit 51.2 (H) 40.5 - 48.5 % MCV 90.9 82.9 - 93.1 fL MCH 30.0 27.5 - 32.1 pg MCHC 33.0 32.0 - 35.7 gm/dL Platelets 237 145 - 357 x10(3)/mcL RDWSD 44.3 36.0 - 45.0 fL RDWCV 13.2 11.4 - 13.8 % MPV 9.7 7.6 - 12.9 fL nRBC % Auto 0.0 % nRBC Abs Auto 0.000 0.000 - 0.000 x10(3)/mcL Differential, Automated Collection Time: 12/15/20 4:04 PM Result Value Ref Range Neutrophils % 56.4 % Neutr Abs (ANC) 5.07 1 - 6 x10(3)/mcL Lymphocytes % 30.2 % Lymphocytes Abs 2.7 0.9 - 3.2 x10(3)/mcL Monocytes % 6.7 % Monocyte Abs 0.6 0.3 - 0.9 x10(3)/mcL Eosinophils % 6.0 % Eosinophils Abs 0.5 (H) 0.0 - 0.4 x10(3)/mcL Basophils % 0.6 % Basophils Abs 0.0 0.0 - 0.1 x10(3)/mcL Immature Gran % 0.10 % Brianna Gran Abs 0.01 0.00 - 0.04 x10(3)/mcL ASSESSMENT & Plan: Rheumatoid arthritis: Uncontrolled disease process. Started prednisone 10 mg daily 02/15/2021 with marked joint symptom improvement (prior to prednisone he reported hand symptoms with AM curling and tightness for several hours which is now about 75% improved with resolution in 30 minutes after waking).after extended period of no treatment after most recently failing Orencia, not tolerating sulfasalazine, and not being able to affor rituxan infusions (last in 2018) though he would like to resume RTX if possible since it worked very well for him and he tolerated it quite well. . Reports continued hand symptoms with AM curling and tightness for several hours. No active synovitis on exam today. MCC steroid use: Will need to limit. Plan: He is limited in options for treatment as noted at last visit. He would like to resume Rituxan if affordable. SE/AE reviewed. I will order infusions for administration at [facility]. Reviewed that bioequivalent may be covered. Assuming this will be covered, he will get labs including CBC, BMP, Quant IGGs 1 week before 1st infusion at [facility]. Caution re fluid overload with instructions sent in order to [facility] re close monitoring and to schedule infusions for early in the week in case he needs to see primary or cardiology care. He will continue for now with Rx written today for taper. Hopefully this will tide him over until he can get going with RTX. Continue with vit d supplementation, avoiding ca supplementation d/t kidney stones Continue with weightbearing activity DEXA ordered to be done at [facility]. Follow up scheduled for 05/26/2021 at 11AM. Minutes spent today associated with the office visit including during the visit, chart review, and documentation: 60 Orders Placed This Encounter Procedures ??? DXA Central Spine, Hip, and/or Whole Body (Generic) ??? CBC (with Diff) ??? Basic Metabolic Panel (non-fasting) ??? Immunoglobulins, Quantitative Alice Carney APRN CC: Arelis Michele MD documented in this encounter Plan of Treatment Upcoming Encounters Date Type Department Care Team (Late st Contact Info) Description 04/28/2024 12:00 PM EDT Appointment [place] [id number] documented as of this encounter Procedures Procedure Name Priority Date/Time Associated Diagnosis Comments ORDS - PROVIDER CARE SCAN 03/14/2021 12:00 AM EDT ORDS - PROVIDER CARE SCAN 02/28/2021 12:00 AM EDT documented in this encounter Results * SCAN DOC: ORDS - PROVIDER CARE (03/14/2021 12:00 AM EDT) Narrative 03/14/2021 12:00 AM EDT Ordered by an unspecified provider. Scanning Provider MEDIA MGR SCAN EXT O RDR/RSLT * SCAN DOC: ORDS - PROVIDER CARE (02/28/2021 12:00 AM EDT) Narrative 02/28/2021 12:00 AM EDT Ordered by an unspecified provider. Scanning Provider MEDIA MGR SCAN EXT O RDR/RSLT documented in this encounter Visit Diagnoses Diagnosis Osteoporosis, unspecified osteoporosis type, unspecified pathological fracture presence Rheumatoid arthritis with positive rheumatoid factor, involving unspecified site documented in this encounter Care Teams Field Service Technician Poultry Relationship Specialty Start Date End Date Arelis Michele MD [address] [place] [address] PCP - General Family Medicine 08/01/18 02/11/24 documented as of this encounter
--- OUTSIDE RECORDS SUMMARY | 2024-04-06 02:28 | XMS_ITS | Encounter Summary ---
[place] [address] Care Team Providers Care Risk Adjustment Specialist Name Role Phone Arelis Michele MD Primary Care Provider [phone] Encounter Details Date Type Department Care Team (Late st Contact Info) Description 06/01/2021 [place]phone [place] [id number] Mariela Ritter, [facility] Social History Tobacco Use Types Packs/Day [...] encounter Miscellaneous Notes * Telephone Encounter - Mariela Ritter [facility] - 06/01/2021 2:27 PM EDT will fill Xeljanz when needed (rinvoq was changed/incorrectly typed below) * Telephone Encounter - Mariela Ritter [facility] - 06/01/2021 2:16 PM EDT I spoke with Wesly in regards to Rinvoq. Rinvoq increases his risk for cardiovascular issues (stroke/heart attack). Which he is aware of. Per Alice Madrid, associate professor of engineering is aware that patient does not have many options to treat his RA. (seeing newcardiologist in September 2021) TNF Inhibitors would be inappropriate due to his diagnosis of cardiomyopathy. Very necessary to treat the inflammation caused by the RA. Stressed importance to watch diet/cholesterol and get exercise if he is able to maintain good cholesterol. He is currently on a highintensity statin (atorvastatin 40 mg daily) and he is on ASA 81 mg qd. He is going to get his labs done at [facility] tomorrow. Labs were sent there on 05/26. We will follow up with [facility] to get labs sent to [facility]. He is aware that he cannot start Rinvoq until on or after 07/13/21. We will hold off sending Rinvoqto patient until then. documented in this encounter Plan of Treatment Upcoming Encounters Date Type Department Care Team (Late st Contact Info) Description 04/28/2024 12:00 PM EDT Appointment [place] [address] documented as of this encounter Visit Diagnoses Not on filedocumented in this encounter Care Teams Risk Adjustment Specialist Relationship Specialty Start Date End Date Arelis Michele MD [address] [place] [address] PCP - General Family Medicine 08/01/18 02/11/24 documented as of this encounter
--- OUTSIDE RECORDS SUMMARY | 2024-04-06 02:28 | XMS_ITS | Encounter Summary ---
[place] [address] Care Team Providers Care Radar Mechanic Name Role Phone Arelis Micehle MD Primary Care Provider Reason for Visit * Reason Comments Medication Refill Medication Management Encounter Details Date Type Department Care Team (Late st Contact Info) Description 08/07/2021 Specialty [place] [address] Sami Shore [facility] Social History Tobacco Use Types Packs/Day Years Used Date Smoking Tobacco: Never Smokeless Tobacco: Never Alcohol Use Standard Drinks/Week Comments No 0 (1 standard drink = 0.6 oz pur e alcohol) Sex and Gender Information Value Date Recorded Sex Assigned at Not on file Gender Identity Not on file Sexual Orientation Not on file documented as of this encounter Progress Notes * Sami Shore [facility] - 08/07/2021 2:45 PM EST Specialty Pharmacy Consultation; Sami Shore [facility] Comprehensive Medication Management (CMM) Wesly Rutherford Cyndie Diagnosis: Rheumatoid Arthritis Therapy Start Date: 07/13/2021 Contact in person or via telephone:Telephone Mr. Wesly Ybarra is a 70 y.o. (1950) male who was contacted in regard to specialty medication. Spoke with patient regarding XELJANZ. A review of the medication therapy was performed. The medication was Refilled as scheduled, and all medication related questions and concerns were addressed.The specialty pharmacy staff will follow up with the patient 5-7 days prior to next refill. Is the patient willing to proceed with the Clinical Assessment? Yes Summary and Recommendations: Mr. Wesly Ybarra is a 70 y.o. male who was contacted for a refill and review of Xeljanz for thetreatment of rheumatoid arthritis. Medications, allergies, and medical conditions were reviewed andreconciled. The patient was reminded to contact the clinic for dose hold recommendations in the event of suspected or known infection, antibiotic therapy, or scheduled surgery. Wesly Ybarra reports no missed doses since his last fill and denies experiencing side effects to the medication. A summary of Specialty Pharmacy's services was provided. Wesly expressed concerns regarding the risks for infection and cardiac side effects with Xeljanz. The patient states that he has existing heart issues (CAD per the patient's chart) and has a stent inplace. He also mentioned that he has had a lingering, productive cough for over a year and that hisproviders are unsure of the cause. He denies having COPD. We discussed the types of cardiovascular effects that can be associated with Xeljanz and that they are generally related to heart rhythm/heart rate. His blockers skiver is aware that he is taking Xeljanz. I advised the patient to continue to goto all scheduled follow-ups and tests that his providers may request, as this is how they will monitor for any potential issues. He was counseled on infection prevention and we discussed the importance of staying up to date on vaccinations. Wesly has not seen a change in his RA symptoms but he is aware of the timeline for efficacy of Xeljanz and plans to continue the medication at this time. We discussed his mobility issues as he statesthat the stiffness he experiences in the morning in his feet and knees can make it difficult for him to walk around. He says this improves after ~2 hours of movement. When asked if he felt he was at risk for falling, the patient stated that he has not yet fallen, but does sometimes feel at risk. Heutilizes railings in his house to help him get around. The patient had no other questions or concerns at this time. He will follow up with his provider asscheduled. Clinic follow-up needed: yes - Follow-up appointment scheduled for 08/18/2021 Allergies and Drug intolerance: Allergies Allergen Reactions [...] Requirements: no Medication Reconciliation Discrepancies (compared to [facility] med list) yes - no longer taking temazepam. Patient states they replaced it with trazodone 75mg nightly Medication List: Current Outpatient Medications Medication Sig Note Dispense Refill ??? traZODone (Desyrel) 50 mg Tablet Take 75 mg by mouth nightly. ??? tofacitinib (Xeljanz XR) 11 mg Tablet [...] mg capsule 30 mg, PO, QHS (Patient not taking: Reported on 08/07/2021) No current facility-administered medications for this visit. [...] specialty services: Yes Patient accepted offer to children's counselor: select all, adherence/missed doses, cost of [...] implications discussed, adherence and missed doses discussed, health goals discussed, monitoring medication discussed, over the counter products discussed, preventative care discussed, recommendations to doctor discussed, reminder to refill or pickle processor medication discussed, self-monitoring discussed, start medication discussed, [...] Physical and Cognitive Assessment: Functional limitations identified: Yes If yes, explain: Patient reports difficulty walking around in the morning due to pain/stiffness in knees and feet. Says this improves after ~2 hours. He uses railings to help him navigate Cognitive limitations identified: No Concern regarding orientation/memory: No Concern with reasoning/judgement: No Is patient a fall risk: Yes If yes, explain: Patient reports difficulty walking around in the morning due to pain/stiffness in knees and feet. Says this improves after ~2 hours. He uses railings to help him navigate Social Assessment: Does patient have a primary child care centre manager: No Does patient have an emergency contact on file: Yes Does patient need referral to home health care social worker: No Does patient need referral to advocacy [...] Patient provided welcome packet/rights and responsibilities: Yes Date Confirmed: 08/07/21 Confirmation: Verbal Specialty Med Adherence Patient Demonstrates Understanding of Importance of Adherence: Yes Educational Information or Adherence Tools Provided: Yes Patient Reported X Missed Doses in the Last Month: 0 Provider-Estimated Medication Adherence Level: 90-100% Adherence Tools Used: alarm, directed education Therapy Assessment: Current Medication Dosing/Route/Frequency: Xeljanz XR 11mg Take one tablet by mouth daily Appropriate Therapy: Yes Effective: too soon to determine efficacy Current joints affected: hands, feet, knees Current pain rating (1-10): 4-6/10 Estimated duration of morning joint stiffness: ~2 hours Estimated number of recent flares: no Recent systemic corticosteroid use: no Patient-Reported Side Effects: no Occurrence of recent infections: no Patient Counseling: Administration issues identified: no Rotation of injection sites: n/a Medication room temperature prior to injection: n/a Patient Goals: Patient's specific desired goal: Reduce joint pain by 50% Measured by: patient reported pain scale; prednisone use; number of flares Time-frame to meet goal: 3-6 months Is the patient on track to achieve goals of therapy? Yes If no, what are the barriers and action plan to reach the goal: n/a Care Plan and Interventions: Care Plan Reviewed and Approved by both Pharmacist and Patient: Yes Did Care Plan Change? No If yes: Change to plans of care based on: Patient's request: n/a Condition: n/a Response to therapy: n/a Provider request: n/a Follow-up needed: No Interventions (if applicable): no Patient experienced change in condition that affects treatment: no Patient Satisfied with Therapy: yes - but had concerns regarding potential adverse effects. Patientwas counseled on cardiac side effects and risk of infection Pharmacist follow-up needed: Yes Patient understands no changes to current drug regimen were made at the appointment and that [facility] (summary located at top of note) for provider review and follow up. Sami Shore RPH 08/07/21 2:59 PM documented in this encounter Plan of Treatment Upcoming Encounters Date Type Department Care Team (Late st Contact Info) Description 04/28/2024 12:00 PM EDT [place]ment [place] [address] documented as of this encounter Visit Diagnoses Not on filedocumented in this encounter Care Teams Radar Mechanic Relationship Specialty Start Date End Date Arelis Michele MD [address] [place] [address] PCP - General Family Medicine 08/01/18 02/11/24 documented as of this encounter
--- OUTSIDE RECORDS SUMMARY | 2024-04-06 02:28 | XMS_ITS | Encounter Summary ---
[place] [address] Care Team Providers Care Senior Mechanical Development Engineer Name Role Phone Arelis Michele MD Primary Care Provider [phone] Reason for Visit * Reason Comments Prior Authorization Xeljanz 11mg tablet Encounter Details Date Type Department Care Team (Late st Contact Info) Description 05/29/2021 Specialty [place] [address] Sesar Jin Social History Tobacco Use Types Packs/Day Years Used Date Smoking Tobacco: Never Smokeless Tobacco: Never Alcohol Use Standard Drinks/Week Comments No 0 (1 standard drink = 0.6 oz pur e alcohol) Sex and Gender Information Value Date Recorded Sex Assigned at Not on file Gender Identity Not on file Sexual Orientation Not on file documented as of this encounter Progress Notes * Sesar Jin - 05/29/2021 3:47 PM EDT [facility], Medication Prior Authorization Patient: Wesly Rutherford Cyndie Patient : 1950 Patient Address: [address] [address] (home) Medication Name: XELJANZ XR 11 MG TABLET,EXTENDED RELEASE Medication ID: Patient Location: [facility] Patient Location Comment: Subscriber Insurance: [employer] Medicare Subscriber Insurance Comment: Phone: Fax: Physician: DELPHINE ZARCO Physician Comment: Sent Via: [facility] Jack: [id number] Ref/Case/PA#: Medication Strength Frequency Requested: Xelajnz 11mg tablet. Take one tablet by mouth once daily Qty/Day Supply: New Start: New to Therapy Diagnosis & ICD-10 Code: M05.9 Patient Notified: No Submission Notes: None Sesar Jin 05/29/21 3:49 PM * Sesar Jin - 05/29/2021 3:47 PM EDT [facility], Prior Authorization Approval Medication Name: XELJANZ XR 11 MG TABLET,EXTENDED RELEASE Medication ID: Approval Dates: 09/02/2020 to 09/01/2021 Insurance requirements/notes: None Other Notes: None Case/Reference #: [id number] Approval notification Received via: [facility] Copay: $776.55 Copay assistance: Copay Notes: Insurance mandated Pharmacy: [facility] Fillable at [facility] Special[facility] Pharmacy: Yes Pharmacy staff will be reaching out to the patient to inform them of their [facility]. If applicable, a pharmacist will speak with the patient to offer our specialty pharmacy services and to arrange delivery of their medication. Sesar Jin 05/31/21 9:29 AM documented in this encounter Plan of Treatment Upcoming Encounters Date Type Department Care Team (Late st Contact Info) Description 04/28/2024 12:00 PM EDT [place]ointment [place] [address] documented as of this encounter Visit Diagnoses Not on filedocumented in this encounter Care Teams Senior Mechanical Development Engineer Relationship Specialty Start Date End Date Arelis Michele MD [address] [place] [address] PCP - General Family Medicine 08/01/18 02/11/24 documented as of this encounter
--- OUTSIDE RECORDS SUMMARY | 2024-04-06 02:28 | XMS_ITS | Encounter Summary ---
[place] [address] Care Team Providers Care Welder Setter Electron Beam Machine Name Role Phone Arelis Michele MD Primary Care Provider [phone] Reason for Visit * Reason Onset Date Comments Questions 03/21/2021 Encounter Details Date Type Department Care Team (Late st Contact Info) Description 03/21/2021 [place]phone [place] [phone] Lionel Rabago, RN Questions Social History Tobacco Use Types Packs/Day Years [...] Telephone Encounter - Lionel Rabago RN - 03/23/2021 8:34 AM EDT Called Billie. Patient completed infusion without issue. No cbc or immunoglobulins completed, no orders received. * Telephone Encounter - Lionel Rabago RN - 03/23/2021 8:34 AM EDT Images from the original note were not included. Knuuti, Alice E, ADOPTION COORDINATOR to Me ?? 11:42 PM I'm sorry that I just saw this message now. Renal function is fine. I'm still waiting on CBC and Immunoglobulins which I requested. If Billie reviewed those and they are normal then it's fine to proceed with infusion if not donealready today. Thank you and please thank her for reaching out. * Telephone Encounter - Lionel Rabago RN - 03/21/2021 10:28 AM EDT Billie from [facility] infusion calls. Due for RTX tomorrow. 1. Labs completed, wants to confirm renal function in range in which may proceed with infusion. 2. Also, note regarding EF 40%, if fluid overload occurs, Lasix to be ordered or stop infusion and transfer patient to ED. documented in this encounter Plan of Treatment Upcoming Encounters Date Type Department Care Team (Late st Contact Info) Description 04/28/2024 12:00 PM EDT [place]ointment [place] [phone] documented as of this encounter Visit Diagnoses Not on filedocumented in this encounter Care Teams Welder Setter Electron Beam Machine Relationship Specialty Start Date End Date Arelis Michele MD [address] [place] [address] PCP - General Family Medicine 08/01/18 02/11/24 documented as of this encounter
--- OUTSIDE RECORDS SUMMARY | 2024-04-06 02:28 | XMS_ITS | Encounter Summary ---
[place] [address] Care Team Providers Care Mis Manager Name Role Phone Arelis Michele MD Primary Care Provider [phone] Reason for Visit * Reason Onset Date Comments Prior Authorization 10/18/2021 Encounter Details Date Type Department Care Team (Late st Contact Info) Description 10/18/2021 Telephone [place] [phone] Angelica Faith Prior Authorization Social History Tobacco Use Types Packs/Day Years [...] encounter Miscellaneous Notes * Telephone Encounter - Angelica Faith - 10/18/2021 10:52 AM EST Medication Prior Authorization Angelika Medication name/dose/directions: Leflunomide 10mg - 1 tabs po qam x 14 days then increase to 2 tabspo qam if tolerated Rationale for request: RA Health plan: [employer] ([facility]ERLY [facility], [facility]) Authorizing accounts payable representative name: Ellie Sent to health plan on: 10/18/21 Health plan decision: Approved Quantity approved: Authorization number: [id number] Start date: 09/02/21 End date: 09/01/22 documented in this encounter Plan of Treatment Upcoming Encounters Date Type Department Care Team (Late st Contact Info) Description 04/28/2024 12:00 PM EDT Appointment [place] [phone] documented as of this encounter Visit Diagnoses Not on filedocumented in this encounter Care Teams Mis Manager Relationship Specialty Start Date End Date Arelis Michele MD [address] [place] [address] PCP - General Family Medicine 08/01/18 02/11/24 documented as of this encounter
--- OUTSIDE RECORDS SUMMARY | 2024-04-06 02:28 | XMS_ITS | Encounter Summary ---
Author Organization [facility] [place] [address] Care Team Providers Care Title Manager Name Role Phone Arelis Michele MD Primary Care Provider [phone] Encounter Details Date Type Department Care Team (Late st Contact Info) Description 04/06/2020 3:00 PM EDT Office Visit [place] [address] Dianne Norton, [employer]INEER [facility] [place] [address] Rheumatoid arthritis with positive rheumatoid factor, involving unspecified site; Hypercholesterolemia Social History Tobacco Use Types Packs/Day Years [...] Sign Reading Time Taken Comments Blood Pressure 135/84 04/06/2020 2:49 PM EDT Pulse 59 04/06/2020 2:49 PM EDT Temperature 36.8 ??C (98.3 ??F) 04/06/2020 2:49 PM ED T Respiratory Rate - - Oxygen Saturation 98% 04/06/2020 2:49 PM EDT Inhaled Oxygen Concentration - - Weight 95.7 kg (211 lb) 04/06/2020 2:49 PM EDT Height 180.3 cm (5' 11) 04/06/2020 2:49 PM EDT Body Mass Index 29.43 04/06/2020 2:49 PM EDT documented in this encounter Patient Instructions * Patient Instructions* Dianne Norton, ITA - 04/06/2020 3:00 PM EDT Images from the original note were not included. Labs at 3L today Diclofenac gel for the shoulder sent to [facility]i Read about Alejandra Rotator Cuff: Exercises Introduction Here are some examples of exercises for you to try. The exercises may be suggested for a condition or for rehabilitation. Start each exercise slowly. Ease off the exercises if you start to have pain. You will be told when to start these exercises and which ones will work best for you. How to do the exercises Pendulum swing If you have pain in your back, do not do this exercise. 1. Hold on to a table or the back of a chair with your good arm. Then bend forward a little and letyour sore arm hang straight down. This exercise does not use the arm muscles. Rather, use your legsand your hips to create movement that makes your arm swing freely. 2. Use the movement from your hips and legs to guide the slightly swinging arm back and forth like a pendulum (or elephant trunk). Then guide it in circles that start small (about the size of a dinner plate). Make the circles a bit larger each day, as your pain allows. 3. Do this exercise for 5 minutes, 5 to 7 times each day. 4. As you have less pain, try bending over a little farther to do this exercise. This will increasethe amount of movement at your shoulder. Posterior stretching exercise 1. Hold the elbow of your injured arm with your other hand. 2. Use your hand to pull your injured arm gently up and across your body. You will feel a gentle stretch across the back of your injured shoulder. 3. Hold for at least 15 to 30 seconds. Then slowly lower your arm. 4. Repeat 2 to 4 times. Up-the-back stretch Your doctor or physical therapist may want you to wait to do this stretch until you have regained most of your range of motion and strength. You can do this stretch in different ways. Hold any of these stretches for at least 15 to 30 seconds. Repeat them 2 to 4 times. 1. Light stretch: Put your hand in your back pocket. Let it rest there to stretch your shoulder. 2. Moderate stretch: With your other hand, hold your injured arm (palm outward) behind your back bythe wrist. Pull your arm up gently to stretch your shoulder. 3. Advanced stretch: Put a towel over your other shoulder. Put the hand of your injured arm behind your back. Now hold the back end of the towel. With the other hand, hold the front end of the towel in front of your body. Pull gently on the front end of the towel. This will bring your hand farther up your back to stretch your shoulder. Overhead stretch 1. Standing about an arm's length away, grasp onto a solid surface. You could use a countertop, a doorknob, or the back of a sturdy chair. 2. With your knees slightly bent, bend forward with your arms straight. Lower your upper body, and let your shoulders stretch. 3. As your shoulders are able to stretch farther, you may need to take a step or two backward. 4. Hold for at least 15 to 30 seconds. Then stand up and relax. If you had stepped back during yourstretch, step forward so you can keep your hands on the solid surface. 5. Repeat 2 to 4 times. Shoulder flexion (lying down) To make a wand for this exercise, use a piece of PVC pipe or a broom handle with the broom removed.Make the wand about a foot wider than your shoulders. 1. Lie on your back, holding a wand with both hands. Your palms should face down as you hold the wand. 2. Keeping your elbows straight, slowly raise your arms over your head. Raise them until you feel astretch in your shoulders, upper back, and chest. 3. Hold for 15 to 30 seconds. 4. Repeat 2 to 4 times. Shoulder rotation (lying down) To make a wand for this exercise, use a piece of PVC pipe or a broom handle with the broom removed.Make the wand about a foot wider than your shoulders. 1. Lie on your back. Hold a wand with both hands with your elbows bent and palms up. 2. Keep your elbows close to your body, and move the wand across your body toward the sore arm. 3. Hold for 8 to 12 seconds. 4. Repeat 2 to 4 times. Wall climbing (to the side) Avoid any movement that is straight to your side, and be careful not to arch your back. Your arm should stay about 30 degrees to the front of your side. 1. Stand with your side to a wall so that your fingers can just touch it at an angle about 30 degrees toward the front of your body. 2. Walk the fingers of your injured arm up the wall as high as pain permits. Try not to shrug your shoulder up toward your ear as you move your arm up. 3. Hold that position for a count of at least 15 to 20. 4. Walk your fingers back down to the starting position. 5. Repeat at least 2 to 4 times. Try to reach higher each time. Wall climbing (to the front) During this stretching exercise, be careful not to arch your back. 1. Face a wall, and stand so your fingers can just touch it. 2. Keeping your shoulder down, walk the fingers of your injured arm up the wall as high as pain permits. (Don't shrug your shoulder up toward your ear.) 3. Hold your arm in that position for at least 15 to 30 seconds. 4. Slowly walk your fingers back down to where you started. 5. Repeat at least 2 to 4 times. Try to reach higher each time. Shoulder blade squeeze 1. Stand with your arms at your sides, and squeeze your shoulder blades together. Do not raise yourshoulders up as you squeeze. 2. Hold 6 seconds. 3. Repeat 8 to 12 times. Scapular exercise: Arm reach 1. Lie flat on your back. This exercise is a very slight motion that starts with your arms raised (elbows straight, arms straight). 2. From this position, reach higher toward the yong or ceiling. Keep your elbows straight. All motion should be from your shoulder blade only. 3. Relax your arms back to where you started. 4. Repeat 8 to 12 times. Arm raise to the side During this strengthening exercise, your arm should stay about 30 degrees to the front of your side. 1. Slowly raise your injured arm to the side, with your thumb facing up. Raise your arm 60 degrees at the most (shoulder level is 90 degrees). 2. Hold the position for 3 to 5 seconds. Then lower your arm back to your side. If you need to, bring your good arm across your body and place it under the elbow as you lower your injured arm. Use your good arm to keep your injured arm from dropping down too fast. 3. Repeat 8 to 12 times. 4. When you first start out, don't hold any extra weight in your hand. As you get stronger, you mayuse a 1-pound to 2-pound dumbbell or a small can of food. Shoulder flexor and extensor exercise These are isometric exercises. That means you contract your muscles without actually moving. 1. Push forward (flex): Stand facing a wall or doorjamb, about 6 inches or less back. Hold your injured arm against your body. Make a closed fist with your thumb on top. Then gently push your hand forward into the wall with about 25% to 50% of your strength. Don't let your body move backward as youpush. Hold for about 6 seconds. Relax for a few seconds. Repeat 8 to 12 times. 2. Push backward (extend): Stand with your back flat against a wall. Your upper arm should be against the wall, with your elbow bent 90 degrees (your hand straight ahead). Push your elbow gently backagainst the wall with about 25% to 50% of your strength. Don't let your body move forward as you push. Hold for about 6 seconds. Relax for a few seconds. Repeat 8 to 12 times. Scapular exercise: Wall push-ups This exercise is best done with your fingers somewhat turned out, rather than straight up and down. 1. Stand facing a wall, about 12 inches to [address] your hands on the wall at shoulder height. 3. Slowly bend your elbows and bring your face to the wall. Keep your back and hips straight. 4. Push back to where you started. 5. Repeat 8 to 12 times. 6. When you can do this exercise against a wall comfortably, you can try it against a counter. You can then slowly progress to the end of a couch, then to a sturdy chair, and finally to the floor. Scapular exercise: Retraction For this exercise, you will need elastic exercise material, such as surgical tubing or Thera-Band. 1. Put the band around a solid object at about waist level. (A bedpost will work well.) Each hand should hold an end of the band. 2. With your elbows at your sides and bent to 90 degrees, pull the band back. Your shoulder blades should move toward each other. Then move your arms back where you started. 3. Repeat 8 to 12 times. 4. If you have good range of motion in your shoulders, try this exercise with your arms lifted out to the sides. Keep your elbows at a 90-degree angle. Raise the elastic band up to about shoulder level. Pull the band back to move your shoulder blades toward each other. Then move your arms back where you started. Internal rotator strengthening exercise 1. Start by tying a piece of elastic exercise material to a doorknob. You can use surgical tubing or Thera-Band. 2. Stand or sit with your shoulder relaxed and your elbow bent 90 degrees. Your upper arm should rest comfortably against your side. Squeeze a rolled towel between your elbow and your body for comfort. This will help keep your arm at your side. 3. Hold one end of the elastic band in the hand of the painful arm. 4. Slowly rotate your forearm toward your body until it touches your belly. Slowly move it back to where you started. 5. Keep your elbow and upper arm firmly tucked against the towel roll or at your side. 6. Repeat 8 to 12 times. External rotator strengthening exercise 1. Start by tying a piece of elastic exercise material to a doorknob. You can use surgical tubing or Thera-Band. (You may also hold one end of the band in each hand.) 2. Stand or sit with your shoulder relaxed and your elbow bent 90 degrees. Your upper arm should rest comfortably against your side. Squeeze a rolled towel between your elbow and your body for comfort. This will help keep your arm at your side. 3. Hold one end of the elastic band with the hand of the painful arm. 4. Start with your forearm across your belly. Slowly rotate the forearm out away from your body. Keep your elbow and upper arm tucked against the towel roll or the side of your body until you begin to feel tightness in your shoulder. Slowly move your arm back to where you started. 5. Repeat 8 to 12 times. Follow-up care is a rm part of your treatment and safety. Be sure to make and go to all appointments, and call your doctor if you are having problems. It's also a good idea to know your test resultsand keep a list of the medicines you take. Where can you learn more? Visit our health information library at [email or web address] You can also view health information on [employer], your personal patient account. Log in or sign uptoday. Enter J005 in the search box to learn more about Rotator Cuff: Exercises. Current as of: November 02, 2019?Content Version: 12.5 ?? [employer]. Care instructions adapted under license by [facility]. If you have questions about a medical condition or this instruction, always ask your healthcare professional. [employer] disclaims any warranty or liability for your use of this information. documented in this encounter Progress Notes * Dianne Norton APRN - 04/06/2020 3:00 PM EDT Rheumatology Clinic Wesly Ybarra is a 69 y.o.male seen for ongoing evaluation and management of rheumatoid arthritis. INTERVAL HISTORY: PT, massage took swelling down in calf [...] that works, supposed to have appt with pulm Just had stress test with PCP and that was normal Was having SOB, he puffs a lot Reports that he was supposed to f/u with pulm but they never contacted him L shoulder [...] which wasunremarkable. He went to ED at [facility]. No tick bites, but does work [...] taking 1000mg APAP. No NSAID. Going to [place] for 14 days on Saturday He is getting his teeth pulled in September, going to get dentures, was putting it off for a while Past Guillermina Espana 01/08/19 Rheumatology remain on HOLD due to [...] what diagnosis is. Treated by Dr. Sommers ([facility] Cardiology). History of depression - current management by PCP, on effexor and wellbutrin.. ROS See HPI for MSK No f/c, no infections +dysnpea No skin concerns Denies other changes in medical, surgical or social history. 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 PHYSICAL EXAMINATION: Vitals: 04/06/20 1449 BP: 135/84 Pulse: 59 Temp: 36.8 ??C (98.3 ??F) TempSrc: Temporal SpO2: 98% Weight: 95.7 kg (211 lb) Height: 180.3 cm (5' 11) Physical Exam: General: Well appearing male Cardiovascular: RRR, no m/r/g Lungs: CTA b/l no w/r/r Neuro: Alert and oriented x3 Skin: rosacea, pink macules on face Nails: no nail pitting Extremities: Shoulders: Reduced ROM in all planes L>R, anterior and posterior ttp on the L, + empty can on the L Elbows:FROM Wrists: FROM, no swelling, non-tender Hands: 2nd and 3rd mcp thickening bl, minor swelling 3rd mcp on the right, 3rd mcp ttp bl, +mcp squeeze bl, near complete claw and full fist; no pip or dip swelling or ttp Hips: FROM Knees: Crepitus and FROM, nontender on the L; small cool effusions bl; ttp on the R Ankles: FROM Feet: no MTP compression tenderness Procedure Note: Site Left Shoulder, SAB Immediately prior to the start of the procedure, confirmed the patient's identity, intended procedure, including site/side, the correct patient positioning, site marked, and the availability of special equipment. Reviewed allergies and possible risks/SE of steroid injection. After informed verbal consent obtained, the area was prepped with an iodine solution. Ethyl chloride was applied as a topical anesthetic. Attempted to access site but was not able to access. No lidocaine or steroid administered. The patient was advised of potential adverse reactions including infection, hyperglycemia, and skinatrophy. The patient was advised to call the clinic immediately for fever, chills, sweats, or increased redness, warmth, pain or swelling over the injection site. ASSESSMENT & Plan: Rheumatoid arthritis, L shoulder pain -Off immunomodulating therapy since 2018. Prolonged morning stiffness that improves throughout the day is suggestive of inflammatory arthritis activity. Minimal swelling 3rd R mcp, scattered ttp. Based primarily on AM stiffness and response to prior RA therapy, I certainly think it worth a trial of immunosuppressive therapy. -I gave him information on Xeljanz and Orencia today. I would lean towards the latter in light of his CV risk factors and h/o infections, though no h/o blood clot. Could also consider another trial of mtx, but in light of infection hx and diaphragm paralysis I am less excited about this idea -Will reach out to research RNs to see if he is eligible for a study -Needs f/u with pulm, I have reached out to pulm secretaries. 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 -continue with medrol 2mg daily -continue with vit d supplementation, avoiding ca supplementation d/t kidney stones -continue with weightbearing activity Phone Call in 2wks documented in this encounter Plan of Treatment Upcoming Encounters Date Type Department Care Team (Late st Contact Info) Description 04/28/2024 12:00 PM EDT Appointment [place] [address] documented as of this encounter Procedures Procedure Name Priority Date/Time Associated Diagnosis Comments HC C-REACTIVE PROTEIN Routine 04/06/2020 4:18 PM EDT Rheumatoid arthritis with positive rheumatoid factor, involving unspecified site HEMOGRAM Routine 04/06/2020 4:18 PM EDT Rheumatoid arthritis with positive rheumatoid factor, involving unspecified site DIFFERENTIAL, AUTOMATED Routine 04/06/2020 4:18 PM EDT Rheumatoid arthritis with positive rheumatoid factor, involving unspecified site HC ESR-SEDIMENTATION RATE, BLOOD Routine 04/06/2020 4:18 PM EDT Rheumatoid arthritis with positive rheumatoid factor, involving unspecified site HC CBC,PLT & AUTO DIFF Routine 0 4:18 PM EDT Rheumatoid arthritis with positive rheumatoid factor, involving unspecified site HC VENIPUNCTURE Routine 04/06/2020 4:18 PM EDT Hypercholesterolemi a COMPREHENSIVE METABOLIC PANEL Routine 04/06/2020 4:18 PM EDT Rheumatoid arthritis with positive rheumatoid factor, involving unspecified site documented in this encounter Results * Differential, Automated (04/06/2020 4:18 PM EDT) Neutrophil % 60.9 % [facility] Neutrophil Absolute 5.31 1.70 - 6.10 x10(3)/[facility] Lymph % 26.8 % [facility] Lymphocytes Abs 2.3 0.9 - 3.2 x10(3)/[facility] Monocyte % 7.7 % [facility] Monocyte Abs 0.7 0.3 - 0.9 x10(3)/[facility] Eos % 3.8 % [facility] Eosinophils Abs 0.3 0.0 - 0.4 x10(3)/[facility] Basophil % 0.5 % [facility] Baso Absolute 0.0 0.0 - 0.1 x10(3)/[facility] Immature Gran % 0.30 % [facility] Comment: Immature granulocytes(IG's)percentage and absolute count will include metamyelocytes, myelocytes, and promyelocytes. Blood smears from CBCs yielding IG's will be scanned manually for concordance. If this scan disagrees with the automated IG or if promyelocytes are noted, a manual differential will be performed. Immature Gran Absolute 0.03 0.00 - 0.04 x10(3)/[facility] Blood specimen (specimen) 04/06/2020 4:18 PM EDT 04/06/2020 4:23 PM EDT Narrative Resulting Agency Comment Spec In Lab Dainne Norton [employer]INE[employer] HEMATOLOGY ORDERABLE S [facility] [place] [address] * (ABNORMAL) Hemogram (04/06/2020 4:18 PM EDT) White Blood Cell 8.7 4.0 - 9.5 x10(3)/ L [facility] Red Blood Cell 5.78(H) 4.58 - 5.54 x10(6)/mc L [facility] Hemoglobin 17.2(H) 13.7 - 16.5 gm/dL [facility] Hematocrit 52.8(H) 40.5 - 48.5 % [facility] Mean Cell Volume 91.3 82.9 - 93.1 fL [facility] Mean Cell Hemoglobin 29.8 27.5 - 32.1 pg [facility] Mean Cell Hemoglobin Concentration 32.6 32.0 - 35.7 gm/dL [facility] Platelet 283 145 - 357 x10(3)/mc L [facility] RDW Standard Deviation 48.9(H) 36.0 - 45.0 fL [facility] RDW coefficient of variation 14.6(H) 11.4 - 13.8 % [facility] Mean Platelet Volume 9.8 7.6 - 12.9 fL [facility] NRBC% auto 0.0 % [facility] NRBC Absolute 0.000 0.000 - 0.000 x10(3)/mc L [facility] Blood specimen (specimen) 04/06/2020 4:18 PM EDT 04/06/2020 4:23 PM EDT Narrative Resulting Agency Comment Spec In Lab Dianne Elbert Norton [employer] HEMATOLOGY ORDERABLE S [facility] [place] [address] * Lipid Panel (Reflex Direct LDL) (04/06/2020 4:18 PM EDT) Cholesterol, Total 218 mg/dL [facility] Comment: Lower Risk: <200 mg/dL Average Risk: 200-239 mg/dL Higher Risk: >mr=932 mg/dL Triglyceride 184 mg/dL [facility] Comment: Average Risk/Lower Risk: <150 mg/dL Borderline High Risk: 150-199 mg/dL High Risk: 200-499 mg/dL Very High Risk: >oj=437 mg/dL HDL Cholesterol 56 mg/dL [facility] Comment: Males: ?? Higher Risk: <40 mg/dL Females: ?? HIgher Risk: <50 mg/dL LDL Cholesterol 125 mg/dL [facility] Comment: Lowest Risk: <100 mg/dL Lower Risk: 100-129 mg/dL Borderline High Risk: 130-159 mg/dL High Risk: 160-189 mg/dL Very High Risk: >ht=863 mg/dL Cholesterol/HDL Ratio 3.9 ratio [facility] Lipid Interpretation See Note [facility] Comment: Lipid management should be guided by a patient? s ASCVD risk, goals and preferences. ACC/AHA Guidelines recommend high intensity statin if clinical ASCVD or LDL greater than or equal to 190 mg/dL. http://tinyurl.com/OAD-TEA-Ylvdhjdre Adults aged 40-75 with LDL 70-189 mg/dL should have their 10 year ASCVD risk estimated with the ACC/AHA ASCVD risk batting machine operator http://tools.acc.org/YCKDC-Qmyl-Ylrunjqzq/ Statin should be discussed if risk greater than or equal to 7.5% in non-diabetics. With diabetes, moderate intensity statin is recommended if risk less than 7.5%, high intensity if risk greater than or equal to 7.5%. Annual lipid monitoring on statins is not necessary. Evaluate secondary causes of Triglycerides greater than 500 mg/dL or LDL greater than 190 mg/dL: See table 6 of ACC/AHA Guideline. Lifestyle modification is a critical component of ASCVD risk reduction. Blood specimen (specimen) 04/06/2020 4:18 PM EDT 04/06/2020 4:23 PM EDT Narrative Resulting Agency Comment Spec In Lab Dianne Norton APRN CHEMISTRY ORDERABLES Performing Organization Address [facility] Co de Phone Number [facility] [place] [address] * (ABNORMAL) Sedimentation rate (04/06/2020 4:18 PM EDT) Sedimentation Rate Automated <3(L) 3 - 46 mm/hr [facility] Comment: Effective August 12, 2019 new capillary photometric technology has resulted in a change in reference ranges. It is recommended that each ESR result be reviewed with its own age appropriate reference range. Blood specimen (specimen) 04/06/2020 4:18 PM EDT 04/06/2020 4:23 PM EDT Narrative Resulting Agency Comment Spec In Lab Dianne Norton APRN HEMATOLOGY ORDERABLE S Performing Organization Address [place]/[facility] Co de Phone Number [facility] [place] [address] * CRP, acute inflammation (04/06/2020 4:18 PM EDT) C-Reactive Protein 1.2 <=4.9 mg/L [facility] Blood specimen (specimen) 04/06/2020 4:18 PM EDT 04/06/2020 4:23 PM EDT Narrative Resulting Agency Comment Spec In Lab Diannelucas Norton ITA CHEMISTRY ORDERABLES [facility] [place] [address] * Comprehensive metabolic panel (non-fasting) (04/06/2020 4:18 PM EDT) Glucose 101 65 - 199 mg/dL [facility] Comment:Diabetes: >=200 mg/d L plus symptoms Blood Urea Nitrogen 13 10 - 20 mg/dL [facility] Creatinine 0.99 0.80 - 1.50 mg/dL [facility] Sodium 141 135 - 145 mmol/L [facility] Potassium 4.3 3.5 - 5.0 mmol/L [facility] Comment: Please note: ??Patients with WBC >100,000 may have falsely elevated Potassium levels. ??For accurate Potassium quantification in these patients send serum separator tube (gold top) for subsequent determinations. ??Contact the Clinical Chemistry Laboratory if there are any questions. Chloride 105 98 - 107 mmol/L [facility] Carbon Dioxide 25 22 - 31 mmol/L [facility] Anion Gap 11 5 - 15 mmol/L [facility] Calcium 9.2 8.5 - 10.5 mg/dL [facility] Protein, Total 6.7 6.1 - 8.0 gm/dL [facility] Albumin 4.5 3.2 - 5.2 gm/dL [facility] Aspartate Aminotransferase 17 0 - 39 unit/L [facility] Alanine Aminotransferase 15 0 - 55 unit/L [facility] Alkaline Phosphatase 85 40 - 130 unit/L [facility] Bilirubin, Total 0.4 0.2 - 1.3 mg/dL [facility] Est Glomerular Filtration Rate 76 >=60 mL/min/1. 73 m?? [facility] Comment: The eGFR was calculated using the CKD-EPI equation. As with all creatinine based estimates of kidney function, eGFR values calculated with the CKD-EPI equation are not accurate in patients with acute kidney failure, extremes of body mass or the acutely ill. http://DoTheGlobe/[facility]ANTnkf eGFR 88 >=60 mL/min/1. 73 m?? [facility] Comment: The eGFR was calculated using the CKD-EPI equation. As with all creatinine based estimates of kidney function, eGFR values calculated with the CKD-EPI equation are not accurate in patients with acute kidney failure, extremes of body mass or the acutely ill. http://DoTheGlobe/[facility] Blood specimen (specimen) 04/06/2020 4:18 PM EDT 04/06/2020 4:23 PM EDT Narrative Resulting Agency Comment Spec In Lab Dianne Norton APRN CHEMISTRY ORDERABLES Performing Organization Address City/State/[facility] Co de Phone Number [facility] [place] [address] documented in this encounter Visit Diagnoses Diagnosis Rheumatoid arthritis with positive rheumatoid factor, involving unspecified site Hypercholesterolemia Pure hypercholesterolemia documented in this encounter Care Teams Title Manager Relationship Specialty Start Date End Date Arelis Michele MD [address] [place] [address] PCP - General Family Medicine 08/01/18 02/11/24 documented as of this encounter
--- OUTSIDE RECORDS SUMMARY | 2024-04-06 02:28 | XMS_ITS | Encounter Summary ---
Author Organization [facility] [place] [address] Care Team Providers Care Tape Maker Name Role Phone Arelis Michele MD Primary Care Provider [phone] Encounter Details Date Type Department Care Team (Late st Contact Info) Description 05/29/2021 Refill [place] [phone] Alice Carney APRN [facility] [place] [address] Social History Tobacco Use Types Packs/Day Years [...] 12:00 PM EDT Appointment [place] [phone] documented as of this encounter Visit Diagnoses Not on filedocumented in this encounter Care Teams Tape Maker Relationship Specialty Start Date End Date Arelis Michele MD [address] [place], [place] [address] PCP - General Family Medicine 08/01/18 02/11/24 documented as of this encounter
--- OUTSIDE RECORDS SUMMARY | 2024-04-06 02:28 | XMS_ITS | Encounter Summary ---
Author Organization [facility] [place] [address] Care Team Providers Care Bilingual Sales Assistant Name Role Phone Arelis Michele MD Primary Care Provider [phone] Encounter Details Date Type Department Care Team (Late st Contact Info) Description 06/25/2021 Orders Only [place] [address] Alice Carney, PROPERTY INSURANCE INSPECTOR [facility] [place] [address] [address] Rheumatoid arthritis with positive rheumatoid factor, involving unspecified site; High risk medication use; Hypercholesterolemia Social History Tobacco Use Types Packs/Day [...] of this encounter Progress Notes * Alice Carney, PROPERTY INSURANCE INSPECTOR - 06/25/2021 4:49 PM EDT See letter. Orders routed to [facility]. Orders Placed This Encounter Procedures ??? CBC (with Diff) Standing Status: Future Standing Expiration Date: 06/07/2022 ??? Sedimentation rate Standing Status: Future Standing Expiration Date: 06/07/2022 ??? CRP, acute inflammation Standing Status: Future Standing Expiration Date: 06/07/2022 ??? Comprehensive metabolic panel (non-fasting) Standing Status: Future Standing Expiration Date: 06/07/2022 ??? Lipid Panel (Reflex Direct LDL) Standing Status: Future Standing Expiration Date: 06/07/2022 documented in this encounter Plan of Treatment Upcoming Encounters Date Type Department Care Team (Late st Contact Info) Description 04/28/2024 12:00 PM EDT Appointment [place] [address] documented as of this encounter Visit Diagnoses Diagnosis Rheumatoid arthritis with positive rheumatoid factor, involving unspecified site High risk medication use Encounter for long-term (current) use of other medications Hypercholesterolemia Pure hypercholesterolemia documented in this encounter Care Teams Bilingual Sales Assistant Relationship Specialty Start Date End Date Arelis Michele MD [address] [place] [address] PCP - General Family Medicine 08/01/18 02/11/24 documented as of this encounter
--- OUTSIDE RECORDS SUMMARY | 2024-04-06 02:28 | XMS_ITS | Encounter Summary ---
[place] [address] Care Team Providers Care Student Union Consultant Name Role Phone Arelis Michele MD Primary Care Provider [phone] Reason for Visit * Reason Comments Medication Management Encounter Details Date Type Department Care Team (Late st Contact Info) Description 08/23/2021 Specialty [place] [phone] Mariela Ritter, [facility] Social History Tobacco Use Types Packs/Day Years [...] this encounter Progress Notes * Mariela Ritter [facility] - 08/23/2021 7:37 AM EST Clinical Management Plan: Transfer of Care/Discharge Specialty Services Specialty Pharmacy Consultation; Mariela Ritter [facility] Comprehensive Medication Management (CMM) Wesly Ybarra [address] [facility] [address] Telephone Information: Work Phone Not on file. Is the patient transferring services to a different Specialty Pharmacy or discontinuing the medication? Discontinuing Medication Medication: Xeljanz XR 11 mg 1 PO QD Reason for discontinuation or transfer: unsure if he wants to start due to cardiovascular issues Approximate date of discontinuation or transfer: 08/23/21 (never started) Patient's response to therapy: unknown-never started Summary of services provided by [facility]: benefits investigation, new start, refill reminders,1 month and 6 month follow up, mail services Summary of on-going needs: see Alice for follow up Referral for additional services (if applicable): n/a Is patient aware of referral? no Instructions provided to patient about discharge/transfer: no Provider aware of discontinuation or transfer: Yes Patient understands no changes to current drug regimen were made at the appointment and that [facility] (summary located at top of note) for provider review and follow up. Mariela Ritter RPH 08/23/21 7:38 AM documented in this encounter Plan of Treatment Upcoming Encounters Date Type Department Care Team (Late st Contact Info) Description 04/28/2024 12:00 PM EDT Appointment [place] [address] documented as of this encounter Visit Diagnoses Not on filedocumented in this encounter Care Teams Student Union Consultant Relationship Specialty Start Date End Date Arelis Michele MD [address] [place] [address] PCP - General Family Medicine 08/01/18 02/11/24 documented as of this encounter
--- OUTSIDE RECORDS SUMMARY | 2024-04-06 02:28 | XMS_ITS | Encounter Summary ---
Author Organization [facility] [place] [address] Care Team Providers Care Rn Patient Services Name Role Phone Arelis Michele MD Primary Care Provider [phone] Encounter Details Date Type Department Care Team (Late Contact Info) Description 06/07/2020 [place] [address] Guera Holloway LNA Social History [...] Telephone Encounter - Guera Holloway LNA - 06/07/2020 8:33 AM EDT Spoke with pt to schedule CT on 08/29. Pt aware date, time, location. documented in this encounter Plan of Treatment Upcoming Encounters Date Type Department Care Team (Late Contact Info) Description 04/28/2024 12:00 PM EDT [place] [address] documented as of this encounter Visit Diagnoses Not on filedocumented in this encounter Care Teams Rn Patient Services Relationship Specialty Start Date End Date Arelis Micehle MD [address] [place] [address] PCP - General Family Medicine 08/01/18 02/11/24 documented as of this encounter
--- OUTSIDE RECORDS SUMMARY | 2024-04-06 02:28 | XMS_ITS | Encounter Summary ---
Author Organization [facility] [place] [address] Care Team Providers Care Interactive Graphic Designer Name Role Phone Arelis Michele MD Primary Care Provider [phone] Encounter Details Date Type Department Care Team (Late st Contact Info) Description 12/15/2020 3:00 PM EDT Office [place] [address] Dianne Norton, [facility] [place] [address] High risk medication use; Rheumatoid arthritis with [...] Sign Reading Time Taken Comments Blood Pressure 140/61 12/15/2020 2:47 PM EDT Pulse 89 12/15/2020 2:47 PM EDT Temperature 35.9 ??C (96.6 ??F) 12/15/2020 2:47 PM ED T Respiratory Rate 20 12/15/2020 2:47 PM EDT Oxygen Saturation 97% 12/15/2020 2:47 PM EDT Inhaled Oxygen Concentration - - Weight 100.9 kg (222 lb 8 oz) 12/15/2020 2:47 PM EDT Height 179 cm (5' 10.47) 12/15/2020 2:47 PM EDT Body Mass Index 31.5 12/15/2020 2:47 PM EDT documented in this encounter Patient Instructions * Patient Instructions* Dianne Norton APRN - 12/15/2020 3:00 PM EDT 3L for bloodwork documented in this encounter Progress Notes * Dianne Norton APRN - 12/15/2020 3:00 PM EDT Rheumatology Clinic Wesly bYarra is a 70 y.o.male seen for ongoing evaluation and management of seropositive rheumatoid arthritis. INTERVAL HISTORY: No improvement with the Orencia, Has had 7-8 infusions he reports. He has had bad breathing, worsening puffing, cough; saw cardiology and pulm per pt, and workups reassuring Enbrel, rituximab. No Humira. No Actemra No h/o blood clot With activity, joint pain feels a little but worse Nothing looks swollen Couple hours for hands to loosen up, in the morning they are curled [facility] blood work with Dr. Michele Not waking [...] they never contacted him L shoulder pain ROS See HPI for MSK No f/c, no infections +dysnpea No skin concerns Denies other changes in medical, surgical or social history. 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 After several infusions, has not helped his joints and appears to have made his breathing worse. No underlying COPD, h/o right hemidiaphragmatic paralysis and chronic dyspnea. Reviewed pulm notes, reassuring We will stop Orencia. On exam today, there is no convincing evidence of active RA. He has some tenderness but no synovitis. He reports stiff curled hands in the AM that take a few hours to loosen up. After discussing withthe patient, I'd like to trial him on sulfasalazine. Reviewed administration, possible SE/ADRs, labmonitoring. He is amenable to this plan. Continue with medrol 2mg Check labs one month after starting ssz at [facility] Check CMP, CBC, CRP, ESR today long-term steroid use Continue with vit d supplementation, avoiding ca supplementation d/t kidney stones Continue with weightbearing activity RTC 3 months with Alice, 60min documented in this encounter Plan of Treatment Upcoming Encounters Date Type Department Care Team (Late st Contact Info) Description 04/28/2024 12:00 PM EDT [place] [address] documented as of this encounter Procedures Procedure Name Priority Date/Time Associated Diagnosis Comments HC C-REACTIVE PROTEIN Routine 12/15/2020 4:04 PM EDT Rheumatoid arthritis with positive rheumatoid factor, involving unspecified site HEMOGRAM Routine 12/15/2020 4:04 PM EDT High risk medication use Rheumatoid arthritis with positive rheumatoid factor, involving unspecified site DIFFERENTIAL, AUTOMATED Routine 12/15/2020 4:04 PM EDT High risk medication use Rheumatoid arthritis with positive rheumatoid factor, involving unspecified site HC ESR-SEDIMENTATION RATE, BLOOD Routine 12/15/2020 4:04 PM EDT Rheumatoid arthritis with positive rheumatoid factor, involving unspecified site HC CBC,PLT & AUTO DIFF Routine 4:04 PM EDT High risk medication use Rheumatoid arthritis with positive rheumatoid factor, involving unspecified site COMPREHENSIVE METABOLIC PANEL Routine 12/15/2020 4:04 PM EDT High risk medication use Rheumatoid arthritis with positive rheumatoid factor, involving unspecified site documented in this encounter Results * (ABNORMAL) Differential, Automated (12/15/2020 4:04 PM EDT) Neutrophil % 56.4 % [facility] Neutrophil Absolute 5.07 1.70 - 6.10 x10(3)/mc L [facility] Lymph % 30.2 % [facility] Lymphocytes Abs 2.7 0.9 - 3.2 x10(3)/mc L [facility] Monocyte % 6.7 % [facility] Monocyte Abs 0.6 0.3 - 0.9 x10(3)/[facility] Eos % 6.0 % [facility] Eosinophils Abs 0.5(H) 0.0 - 0.4 x10(3)/[facility] Basophil % 0.6 % [facility] Baso Absolute 0.0 0.0 - 0.1 x10(3)/[facility] Immature Gran % 0.10 % [facility] Comment: Immature granulocytes(IG's)percentage and absolute count will include metamyelocytes, myelocytes, and promyelocytes. Blood smears from CBCs yielding IG's will be scanned manually for concordance. If this scan disagrees with the automated IG or if promyelocytes are noted, a manual differential will be performed. Immature Gran Absolute 0.01 0.00 - 0.04 x10(3)/[facility] Blood specimen (specimen) 12/15/2020 4:04 PM EDT 12/15/2020 4:09 PM EDT Narrative Resulting Agency Comment Spec In Lab Dianne Norton [facility] H[facility]AT[facility] ORDERABLE S Performing Organization Address City/State/[facility] Co de Phone Number [facility] [place] [address] * (ABNORMAL) Hemogram (12/15/2020 4:04 PM EDT) White Blood Cell 9.0 4.0 - 9.5 x10(3)/[facility] Red Blood Cell 5.63(H) 4.58 - 5.54 x10(6)/[facility] Hemoglobin 16.9(H) 13.7 - 16.5 gm/dL [facility] Hematocrit 51.2(H) 40.5 - 48.5 % [facility] Mean Cell Volume 90.9 82.9 - 93.1 fL [facility] Mean Cell Hemoglobin 30.0 27.5 - 32.1 pg [facility] Mean Cell Hemoglobin Concentration 33.0 32.0 - 35.7 gm/dL [facility] Platelet 237 145 - 357 x10(3)/mc L [facility] RDW Standard Deviation 44.3 36.0 - 45.0 fL [facility] RDW coefficient of variation 13.2 11.4 - 13.8 % [facility] Mean Platelet Volume 9.7 7.6 - 12.9 fL [facility] NRBC% auto 0.0 % [facility] NRBC Absolute 0.000 0.000 - 0.000 x10(3)/mc L [facility] Blood specimen (specimen) 12/15/2020 4:04 PM EDT 12/15/2020 4:09 PM EDT Narrative Resulting Agency Comment Spec In Lab Dianne Norton APRN HEMATOLOGY ORDERABLE S Performing Organization Address City/[facility]/ZIP Co de Phone Number [facility] [place] [address] * Sedimentation rate (12/15/2020 4:04 PM EDT) Sedimentation Rate Automated 5 3 - 46 mm/hr [facility] Comment: Effective August 12, 2019 new capillary photometric technology has resulted in a change in reference ranges. It is recommended that each ESR result be reviewed with its own age appropriate reference range. Blood specimen (specimen) 12/15/2020 4:04 PM EDT 12/15/2020 4:09 PM EDT Narrative Resulting Agency Comment Spec In Lab Dianne Norton [facility] ORDERABLE S [facility] [place] [address] * CRP, acute inflammation (12/15/2020 4:04 PM EDT) C-Reactive Protein 3.4 <=4.9 mg/L [facility] Blood specimen (specimen) 12/15/2020 4:04 PM EDT 12/15/2020 4:09 PM EDT Narrative Resulting Agency Comment Spec In Lab Dianne Norton [facility]OUT[facility] CHEMISTRY ORDERABLES [facility] [place] [address] * Comprehensive metabolic panel (non-fasting) (12/15/2020 4:04 PM EDT) Glucose 100 65 - 199 mg/dL [facility] Comment:Diabetes: >=200 mg/d L plus symptoms Blood Urea Nitrogen 12 10 - 20 mg/dL [facility] Creatinine 0.92 0.80 - 1.50 mg/dL [facility] Sodium 142 135 - 145 mmol/L [facility] Potassium 4.0 3.5 - 5.0 mmol/L [facility] Comment: Please note: ??Patients with WBC >100,000 may have falsely elevated Potassium levels. ??For accurate Potassium quantification in these patients send serum separator tube (gold top) for subsequent determinations. ??Contact the Clinical Chemistry Laboratory if there are any questions. Chloride 105 98 - 107 mmol/L [facility] Carbon Dioxide 28 22 - 31 mmol/L [facility] Anion Gap 9 5 - 15 mmol/L [facility] Calcium 9.5 8.5 - 10.5 mg/dL [facility] Protein, Total 6.7 6.1 - 8.0 gm/dL [facility] Albumin 4.2 3.2 - 5.2 gm/dL [facility] Aspartate Aminotransferase 24 0 - 39 unit/L [facility] Alanine Aminotransferase 19 0 - 55 unit/L [facility] Alkaline Phosphatase 124 40 - 130 unit/L [facility] Bilirubin, Total 0.4 0.2 - 1.3 mg/dL [facility] Est Glomerular Filtration Rate 83 >=60 mL/min/1. 73 m?? [facility] Comment: This patient? s estimated glomerular filtration rate (eGFR) is between 83 mL/min/1.73 m2 (patients with less muscle mass per kg body weight) and 96 mL/min/1.73 m2 (patients with more muscle mass per kg body weight) as determined by the CKD-EPI equation. Assessment of eGFR is not appropriate when creatinine concentrations are rapidly changing. For clinical decisions where creatinine clearance will affect therapy, a 24-hour urine creatinine clearance may be advised. Assignment of CKD stage 1 - 5 for patients with an eGFR near the transition point between stages may be based on clinical assessment of muscle mass and symptoms in addition to eGFR. Blood specimen (specimen) 12/15/2020 4:04 PM EDT 12/15/2020 4:09 PM EDT Narrative Resulting Agency Comment Spec In Lab Dianne Norton APRN CHEMISTRY ORDERABLES [facility] [place] [address] documented in this encounter Visit Diagnoses Diagnosis High risk medication use Encounter for long-term (current) use of other medications Rheumatoid arthritis with positive rheumatoid factor, involving unspecified site documented in this encounter Care Teams Interactive Graphic Designer Relationship Specialty Start Date End Date Arelis Michele MD [address] [place] [address] PCP - General Family Medicine 08/01/18 02/11/24 documented as of this encounter
--- OUTSIDE RECORDS SUMMARY | 2024-04-06 02:28 | XMS_ITS | Encounter Summary ---
Author Organization [facility] [place] [address] Care Team Providers Care Shop Clerk Name Role Phone Arelis Michele MD Primary Care Provider [phone] Encounter Details Date Type Department Care Team (Late Contact Info) Description 05/11/2020 [place] [address] Guera Holloway LNA Social History [...] Telephone Encounter - Guera Holloway LNA - 05/11/2020 11:13 AM EDT Call from pt to schedule f/u with Dr. Soliz on 05/23. Pt aware date, time, location. documented in this encounter Plan of Treatment Upcoming Encounters Date Type Department Care Team (Late st Contact Info) Description 04/28/2024 12:00 PM EDT [place] [address] documented as of this encounter Visit Diagnoses Not on filedocumented in this encounter Care Teams Shop Clerk Relationship Specialty Start Date End Date Arelis Michele MD [address] [place] [address] PCP - General Family Medicine 08/01/18 02/11/24 documented as of this encounter
--- OUTSIDE RECORDS SUMMARY | 2024-04-06 02:28 | XMS_ITS | Encounter Summary ---
[place] [address] Care Team Providers Care Electrical Manufacturing Engineer Name Role Phone Arelis Michele MD Primary Care Provider [phone] Reason for Visit * Reason Comments Specialty Pharmacy Review Tofacitinib (X eljanz) Encounter Details Date Type Department Care Team (Late st Contact Info) Description 08/18/2021 Specialty [place] [address] Riana Ceron, [facility] Social History Tobacco Use Types [...] as of this encounter Progress Notes * Riana Ceron - 08/18/2021 10:49 AM EST The [facility] has completed a benefits investigation for Wesly Ybarra to review their eligibility to fill at [facility]. Per patient's medication list they are prescribedTofacitinib (Xeljanz) and the medication is able to be filled at the [facility]; patient currently fills with [facility]. documented in this encounter Plan of Treatment Upcoming Encounters Date Type Department Care Team (Late st Contact Info) Description 04/28/2024 12:00 PM EDT [place] [address] documented as of this encounter Visit Diagnoses Not on filedocumented in this encounter Care Teams Electrical Manufacturing Engineer Relationship Specialty Start Date End Date Arelis Michele MD [address] [place] [address] PCP - General Family Medicine 08/01/18 02/11/24 documented as of this encounter
--- OUTSIDE RECORDS SUMMARY | 2024-04-06 02:28 | XMS_ITS | Encounter Summary ---
Author Organization [facility] [place] [address] Care Team Providers Care Industrial Roofer Name Role Phone Arelis Michele MD Primary Care Provider [phone] Encounter Details Date Type Department Care Team (Latest Contact Info) Description 05/26/2021 11:00 AM EDT TH Visit (TeleHealth) [place] [address] Alice Carney, FLIGHT ENGINEER INSTRUCTOR [facility] [place] [place] [address] Rheumatoid arthritis with positive rheumatoid factor, involving unspecified site; Hypercholesterolemia; High risk medication use; Cardiomyopathy, unspecified type; Coronary artery disease, unspecified vessel or lesion type, unspecified whether angina present, unspecified whether nikolski or transplanted heart; Osteoporosis, unspecified osteoporosis type, unspecified pathological fracture presence Social History Tobacco Use Types Packs/Day Years [...] * Patient Instructions* Alice Carney APRN - 05/26/2021 11:00 AM EDT Rheumatology Specialty Pharmacy team is investigating treatment options in case you need to discontinue rituxan due to cost. Do not cancel your 07/2021 infusion until we have more information or if it is not affordable. Please let me know what you find out re cost of the infusions and if you plan to continue with the rituxan based on that information. I will reach out to your armhole sewer re treatment options to see if they have a preference re the options available. You will need to get lab tests done in mid-June. I sent the orders to [facility] (they are listed on this After Visit Summary). I ordered a DEXA (bone density test) at your last visit to be done at [facility]. You should call radiology to schedule this test if not done. Please have the results sent to me -- fax number is on the order. You should expect to hear from me regarding results of all tests I order and I need you to call my office if you do not as sometimes we do not receive results from outside facilities. Follow up telephone visit scheduled for Saturday08/18/2021 at 11AM. documented in this encounter Progress Notes * Alice Carney APRN - 05/26/2021 11:00 AM EDT Rheumatology Follow-up Visit TELEPHONE VISIT This visit was conducted via telephone due to [employer] restrictions. I advised Leeanne Agee thatthis telephone visit may be billed similar to a clinic visit to patient and insurance company. Patient agreed to continue this visit. CC: Leeanne KrishMelissa Cyndie is a 70 y.o.male presenting for ongoing evaluation and management of seropositive rheumatoid arthritis. Last OV: 02/28/2021 (Angelika, telephone visit) NU Visit: 02/14/2021 (Angelika, [...] overload. I spoke with ASHLEY Wise, in [facility] infusion lab this morning -- last infusion was in 2018 for name brand Rituximab. ?? Orencia tried [id number] and stopped due to lack of efficacy and dyspnea. ?? SSZ started 12/2020 and tried for about 2.5-3 weeks but stopped due to nausea, diarrhea, rash, wheezing worsened. ?? 02/28/2021: Prednisone 10 mg daily 3 week taper started 02/15/2021 with about 75% improvement in AM hand clenching and takes about 30 minutes to resolve. This was a huge improvement. Treatment considerations: 02/14/2021 Denied hx blood clots. + Hx diverticulitis with 18 bowel resected. + CMP. SOB/ZEPEDA -- multifactorial as noted elsewhere. He has not tried Humira, Remicade, Actemra, JAKs. Cannot take NSAID per cardiology CAD and CMP: [facility] Cardiology OV notes from 09/27/2020 (Leeanne Munoz [...] at rest; + ZEPEDA with minimal activity. 05/26/2021: Says he has a 20% copay for all medications. Labs and infusions at [facility]. Interval History: Current treatment for RA: Ruxience 1000 mg IV Q16W started [facility] 03/21/2021 (next scheduled for 07/13/2021) Symptoms without treatment: hands with AM curling/clenching [...] Rheumatology nurse confirmed with ASHLEY Wise, that [facility] infusion labthat per their protocol, and [...] resection Osteoporosis with pathologic vertebral fracture per [facility] notes but not on file at [facility] [...] Knees: Crepitus and FROM bl DATA: Labs: [facility] 03/2021 unremarkable CBC, CMP Results for LEEANNE AGEE ( ) as of 05/26/2021 11:20 Ref. Range 03/21/2019 03:16 04/06/2020 16:18 Chol, Total Latest Units: mg/dL 128 218 HDL Latest Units: mg/dL 51 56 Chol/HDL Ratio Latest Units: ratio 2.5 3.9 Triglycerides Latest Units: mg/dL 100 184 LDL Cholesterol Latest Units: mg/dL 57 125 ASSESSMENT/RECOMMENDATIONS: Seropositive rheumatoid arthritis: Marked improvement with resumption of Rituxan (he actually received Ruxience) 03/2021. He tolerated this treatment well and would like to continue with that the question of cost is still unanswered. I advised him not to wait for a bill and to check with the hospital regarding cost. He expects that we will have an unaffordable co-pay. For now, he will keep his appointment for his 07/13/2020 22 infusion. Meanwhile, I reviewed other options for treatment with Todd Culver MD as he has multiple comorbidities which makes treatment choice difficult. TNFi not preferred due to cardiomyopathy with reduced EF and ongoing dyspnea, Actemra not preferred due to history of diverticulitis with bowel resection, Anakinra not preferred due to low liklihood that it would beeffective. Will pursue specialty authorization for RITA inhibitor with preference for Xeljanz. Patient has CAD and cardiolmyopathy followed by cardiology and managed with a atorvastatin, metoprolol, aspirin, and isosorbide. I reached out to his armhole sewer via internal staff message re issues with a vailable options. Patient will need to recheck lipid panel, TB Quant Gold, Hepatitis screen, CBC, CMP prior to initiation. 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. Continue with vit d supplementation, avoiding calcium supplementation due to kidney stones. Continue with weightbearing activity as tolerated. Follow up telephone visit scheduled for Saturday08/18/2021 at 11AM. Minutes spent today associated with the office visit including during the visit, chart review, and documentation: 60 Orders routed to [facility]: Orders Placed This Encounter Procedures ??? CBC (with Diff) ??? Comprehensive metabolic panel (non-fasting) ??? CRP, acute inflammation ??? Sedimentation rate ??? Hepatitis B Core Antibody, Total ??? Hepatitis B Surface Antigen ??? Hepatitis B Surface Antibody ??? Hepatitis C Antibody ??? QuantiFERON-TB Gold ??? Lipid Panel (Reflex Direct LDL) AVS to be mailed to patient. Alice Carney APRN CC: Arelis Michele MD documented in this encounter Plan of Treatment Upcoming Encounters Date Type Department Care Team (Late st Contact Info) Description 04/28/2024 12:00 PM EDT [place]ment [place] [address] documented as of this encounter Visit Diagnoses Diagnosis Rheumatoid arthritis with positive rheumatoid factor, involving unspecified site Hypercholesterolemia Pure hypercholesterolemia High risk medication use Encounter for long-term (current) use of other medications Cardiomyopathy, unspecified type Coronary artery disease, unspecified vessel or lesion type, unspecified whether angina present, unspecified whether nikolski or transplanted heart Osteoporosis, unspecified osteoporosis type, unspecified pathological fracture presence documented in this encounter Care Teams Industrial Roofer Relationship Specialty Start Date End Date Arelis Michele MD [address] [place] [address] PCP - General Family Medicine 08/01/18 02/11/24 documented as of this encounter
--- OUTSIDE RECORDS SUMMARY | 2024-04-06 02:29 | XMS_ITS | Encounter Summary ---
[place] [address] Care Team Providers Care Elevator Technician Name Role Phone Arelis Michele MD Primary Care Provider [phone] Reason for Visit * Reason Onset Date Comments Triage 05/07/2019 Encounter Details Date Type Department Care Team (Late st Contact Info) Description 05/07/2019 [place] [id number] Lionel Rabago, celery cutter Social History Tobacco Use Types Packs/Day Years [...] Telephone Encounter - Lionel Rabago RN - 05/11/2019 1:34 PM EDT Images from the original note were not included. Previous Messages ----- Message ----- From: Kandy Espana APRN Sent: 05/08/2019 ?? 8:18 PM EDT To: [facility] Rheumatology Nurse, * Will need follow up appointment scheduled with labs, same day to assess/update RA status. Will need 60 min. Thank you Lionel, for letting him know we are working on this.. Guillermina Patient updated on above, he will await call from scheduling and contact clinic if he has any additional questions or concerns. * Telephone Encounter - Lionel Rabago RN - 05/08/2019 10:53 AM EDT Patient calls clinic asking about Enbrel. States he had heart stent placement March 20 at [facility]. Infusions have been on hold. Has not taken any ra meds. Patient states loading unit tool setter asks if unable to have infusion, would resuming Enbrel be an option. * Telephone Encounter - Lionel Rabago RN - 05/07/2019 11:26 AM EDT Patient calls clinic, leaves message regarding resuming medication. Hx RA. Returned call to patient, unavailable. Message left with call back number provided. documented in this encounter Plan of Treatment Upcoming Encounters Date Type Department Care Team (Late st Contact Info) Description 04/28/2024 12:00 PM EDT [place] [address] documented as of this encounter Visit Diagnoses Not on filedocumented in this encounter Care Teams Elevator Technician Relationship Specialty Start Date End Date Arelis Michele MD [address] [place] [address] PCP - General Family Medicine 08/01/18 02/11/24 documented as of this encounter
--- OUTSIDE RECORDS SUMMARY | 2024-04-06 02:29 | XMS_ITS | Encounter Summary ---
[place] [address] Care Team Providers Care Restoration Technician Name Role Phone Arelis Michele MD Primary Care Provider [phone] Reason for Visit * Reason Onset Date Comments Referral 07/20/2019 Encounter Details Date Type Department Care Team (Late st Contact Info) Description 07/20/2019 Telephone [place] [id number] Lionel Rabago, cytotechnologist supervisor Social History Tobacco Use Types Packs/Day Years [...] encounter Miscellaneous Notes * Telephone Encounter - Thierry Mantilla - 07/27/2019 3:52 PM EST We have been trying to reach Mr. Ybarra regarding the referral but the calls go right to disconnect, is there an alternative number or way to reach him to schedule an urgent appointment? * Telephone Encounter - Lionel Rabago, RN - 07/23/2019 9:02 AM EST Images from the original note were not included. [place]y, ITA Castorena Rory A, RN Caller: Unspecified (3 days ago, ??9:07 AM) ?? All set. He should call ortho on Saturday to schedule if he hasn't heard of anything. We want to stayalert to s/sxs compartment syndrome, e.g. If he get pain of severe intensity, if he feels pins and needles or numbness in legs, he needs immediate medical attention. I made the referral to ortho urgent so should be hearing from them soon. Patient updated on above and expressed understanding. * Telephone Encounter - Lionel Rabago RN - 07/23/2019 8:10 AM EST Images from the original note were not included. Dianne Norton APRN Gavalakis, Rory A, RN Caller: Unspecified (3 days ago, ??9:07 AM) ?? All set. He should call ortho on Saturday to schedule if he hasn't heard of anything. We want to stayalert to s/sxs compartment syndrome, e.g. If he get pain of severe intensity, if he feels pins and needles or numbness in legs, he needs immediate medical attention. I made the referral to ortho urgent so should be hearing from them soon. * Telephone Encounter - Lionel Rabago RN - 07/20/2019 9:07 AM EST Images from the original note were not included. Dianne Norton APRN [facility] Rheumatology Nurse ?? Please call pt and relay the following: I reviewed [facility] ED notes. I would like to get a knee MRI here, and I would like him to be evaluatedby our ortho dept. Please ask if he is amenable to this. When is he back from his trip? Spoke with patient. Updated on above. Amenable to MRI of knee and [facility] ortho referral. documented in this encounter Plan of Treatment Upcoming Encounters Date Type Department Care Team (Late st Contact Info) Description 04/28/2024 12:00 PM EDT Appointment [place] [address] documented as of this encounter Visit Diagnoses Not on filedocumented in this encounter Care Teams Restoration Technician Relationship Specialty Start Date End Date Arelis Michele MD [address] [place] [address] PCP - General Family Medicine 08/01/18 02/11/24 documented as of this encounter
--- OUTSIDE RECORDS SUMMARY | 2024-04-06 02:29 | XMS_ITS | Encounter Summary ---
Author Organization [facility] [place] [address] Care Team Providers Care Flat Machine Cutter Name Role Phone Arelis Michele MD Primary Care Provider [phone] Reason for Visit * Auth/Cert Specialty Diagnoses / Procedures Referred By Contmabel t Referred To Contact Diagnoses CAD (coronary artery disease) Abnormal stress test [R94.39]/Chest discomfort [R07.89] Post-Op monitoring Procedures PRG CATH PLMT LEFT HEART CATH & ARTS W/INJ & ANGIO IMG S&I CARDIAC CATHETERIZATION CORONARY ANGIOGRAPHY; W LHC,POSSIBLE PCI Referral ID Status Reason Start Date Expiration Date Visits Re quested Visits Authorized [id number] 1 1 Encounter Details Date Type Department Care Team (Late st Contact Info) Description 03/20/2019 10:30 AM EDT - 03/20/2019 11:30 AM EDT Surgery Supervisor [place] [address] Sean Manzano II, MD [facility] [place] [address] CARDIAC CATHETERIZATION Social History Tobacco Use Types Packs/Day Years Used Date Smoking Tobacco: Never Smokeless Tobacco: Never Tobacco Cessation:Counseling Given: Yes Alcohol Use Standard Drinks/Week Comments No 0 (1 standard drink = 0.6 oz pur e alcohol) Sex and Gender Information Value Date Recorded Sex Assigned at Not on file Gender Identity Not on file Sexual Orientation Not on file documented as of this encounter Last Filed Vital Signs Vital Sign Reading Time Taken Comments Blood Pressure 130/81 03/20/2019 11:09 AM EDT Pulse 63 03/20/2019 11:09 AM EDT Temperature 36.5 ??C (97.7 ??F) 03/20/2019 1 0:05 AM EDT Respiratory Rate 23 03/20/2019 11:0 9 AM EDT Oxygen Saturation 97% 03/20/2019 11: 09 AM EDT Inhaled Oxygen Concentration - - Weight 94.3 kg (207 lb 14.3 oz) 019 10:59 AM EDT Height - - Body Mass Index 29 01/08/2019 10:27 AM EDT documented in this encounter Discharge Summaries * Holland Cerrato PA - 03/20/2019 1:50 PM EDT Images from the original note were not included. Discharge Summary Patient Name: Leeanne Ybarra Patient Age: 68 y.o. Language: Mosotho Race: White Ethnicity: Not nor Admit date: 03/20/2019 Discharge date and time: 03/21/2019 8:00 AM Attending Physician: Sean Manzano II, MD Discharge Physician: Dr. Muniz Follow-up Recommendations for Providers: - dual antiplatelet regimen as follows: - aspirin 81 mg daily lifelong - clopidogrel 75 mg daily for 6 months after PCI for stable ischemic heart disease -Switch lovastatin to atorvastin - recommend follow up with cardiology in 4 weeks Inpatient Provider Contact Information: Sean Manzano II, MD - attending Discharge Diagnoses (Hospital Problems) and Secondary Diagnoses (Chronic Problems): Active Hospital Problems Diagnosis ??? CAD (coronary artery disease) Resolved Hospital Problems No resolved problems to display. Active Non-Hospital Problems Diagnosis ??? Diaphragm paralysis ??? Chronic rhinitis ??? Parsonage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 Neurology consult notes: Scanned outside documents Brachial [...] or any concern for mass, but this seemsunlikely given involvement of upper plexus. I will [...] I would have to revisit the diagnosis. ??? Cardiomyopathy ECHO/cardiac catheterization reports in scanned documents SUMMARY: ?? ECHO -> LEFT VH -> cardiomyopathy. RV hypokinetic. Aortic sclerosis without stenosis. Abnormal diastolic indices. Normal pulmonary artery pressure. Normal atria. LVEF 40%. ?? CATH -> Mild irregularities LAD, L circumflex, RCA and NORMAL Left main -> Medical therapyindicated . Multiple new meds added. (Clopidogrel, metoprolol, ASA 81 mg, terazosin, flovent, albuterol). ??? Chronic cough Orginates in throat; frequent throat clearing ??? SOB (shortness of breath) With exertion starting Aug 2013 ??? Post-nasal drip ??? Burning sensation in eye ??? Osteopenia ?? Osteopenia, DXA at [facility] in 06/2007. ?? Right wrist fracture (1962); ?? Right shoulder fracture (1967). ??? GERD (gastroesophageal reflux disease) ??? Hyperlipidemia ??? Depression ??? HTN (hypertension) ??? RA (rheumatoid arthritis) RF/CCP POSITIVE HISTORY OF PRESENT ILLNESS: Initially [...] however, noted the following flu he never feltas good as he had prior to his episode. Hospitalized in 1994 for C.diff colitis with colon polyps and underwent a hemicolectomy. He has had no recurrent symptoms. 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 Sommers with chronic stable angina in addition to his severe dyspnea, who was referred for coronary angiography after SPECT MPI revealed evidence of a fixed defect in the LAD distribution. ?? Coronary angiography revealed a significant obstructive (~75% angiographically) mid LAD lesion (just distal to the first diagonal branch). Advancement of a guide catheter was difficult due to significant radial artery spasm, so the case was converted to femoral. PCI (3.0x15mm resolute dina JALEEL) wasperformed, with excellent angiographic result. He tolerated the procedure well with no significant symptoms/complications. ?? This patient is admitted post PCI for IV hydration, pain management, access site management in the setting of anticoagulation, telemetry monitoring, evaluation of their medical condition, and cardiacrehabilitation. Hospital Course: The patient was admitted following cardiac catheterization for overnight monitoring and observation. The patient did well overnight without significant chest pain or arrhythmias on telemetry. The right femoral/radial access site was evaluated and the femoral/radial pulse was palpable with no evidence of vascular compromise to the right groin/hand. Repeat ECG was reviewed with no evidence of active ischemia. VS and renal function remained stable. The patient ambulated with nursing without chest discomfort or exertional dyspnea. The patient met criteria for discharge, and was released home in stable condition. Functional and Cognitive Status: Independent in ALDs and IADLs, A&O x 3, at baseline Important Studies and Lab Data: Labs: Lab Results Component Value Date WBC 8.8 03/21/2019 HGB 15.9 03/21/2019 HCT 46.8 03/21/2019 PLATELET 189 03/21/2019 No results for input(s): INR in the last 168 hours. Lab Results Component Value Date NA 139 03/21/2019 K 4.0 03/21/2019 CL 104 03/21/2019 CO2 24 03/21/2019 BUN 14 03/21/2019 CREATININE 0.97 03/21/2019 No results for input(s): CK, TROPONINT in the last 168 hours. Lab Results Component Value Date CHLPL 128 03/21/2019 HDL 51 03/21/2019 CHOLHDL 2.5 03/21/2019 TRIG 100 03/21/2019 LDLCHOL 57 03/21/2019 Studies: Findings: Hemodynamics: Syst Diast EDP a v m RA 5 4 3 RV 25 9 PA 25 11 15 PCW 12 9 8 Ao 109 63 83 LV 122 16 Profile 1 Profile 2 CO 7.83 7.87 CI 3.66 3.68 TSR 848 844 SVR 817 813 TPR 153 152 PVR 72 71 Technique Estimated Honey Thermodilution Comments: LV pullback: LV 125, EDP 15. Ao 123/55 (83). Oximetry: %Sat MPA 78.0 RV 75.0 MRA 77.0 IVC 85.0 SVC 74.0 Fabricio 94.0 Coronary Angiography: Right Dominant LM Mid 2 - Mild diffuse. LAD Distal - Mild diffuse. Mid 1 - 80%. LCX Proximal - Mild diffuse. RCA Entire vessel - Mild diffuse. Intervention Summary: LAD - Mid 1 80% Stent Inserted: Predilatation - 2.50mm EUPHORA 12 MM Max 10 leticia. Device - 3.00 x 15 mm Resolute DINA. Deployment - premounted 10 leticia. Postdilatation - 3.00mm NC EUPHORA 12 MM Max 15 leticia. Final Result: Vasodilator given. No residual stenosis. Indication for stent - prevent primary restenosis. Vascular Access Angiogram: An angiogram at the right femoral artery revealed no significant obstructive disease. Vascular Closure Device: 6 Fr Perclose deployed at the right femoral artery access site. Device successful. Pending Studies and Lab Data: None Discharge Conditions/Prognosis: Good Discharge to: Home Updated Allergies/ADRs: Allergies Allergen Reactions ??? Calcium kidney stones ??? Levothyroxine ??? Lisinopril Dry cough Immunizations Given this Hospitalization: Immunization History Administered Date(s) Administered ??? DTaP 05/08/2012 ??? Influenza PF, Split (High Dose) 07/22/2017 ??? Influenza Vaccine w/Preservative, Split 06/02/2012, 07/01/2013, 06/02/2014, 06/02/2015 ??? Influenza Vaccine, Whole 06/29/2005 ??? Pneumococcal Conjugate (13 Valent) 03/09/2013 ??? Pneumococcal Polyvalent 23 02/15/2004, 11/09/2013 ??? Td, adult 07/03/1996, 09/28/2005 Discharge Medications: Your Medications Some of the medications listed here do not show instructions, such as how often to take the medication. Ask your doctor or nurse how to use these medications. Specifically ask about this and similar medications: CIS Free Text Med - OTC mositurizing eye drops New Medications Dose Details atorvastatin 40 mg Tab Commonly known as: LIPITOR Take 1 tablet by mouth daily. 40 mg Quantity: 90 tablet Refills: 3 clopidogrel 75 mg Tab Commonly known as: PLAVIX Take 1 tablet by mouth daily. 75 mg Quantity: 90 tablet Refills: 3 Continued medications with new dosing Dose Details CIS FREE TEXT MED What changed: See the new instructions. Refills: 0 Continued medications, unchanged Dose Details * albuterol 90 mcg/actuation Hfaa Inhale 2 puffs into the lungs Every 6 hours as needed. 2 puff Refills: 0 * albuterol 90 mcg/actuation Hfaa Inhale 2 puffs into the lungs every 4 hours as needed. Use with spacer 2 puff Refills: 0 aspirin 81 mg Tbec Take 81 mg by mouth daily. 81 mg Refills: 0 benzonatate 200 mg Cap Commonly known as: TESSALON Take 1 capsule by mouth 3 times daily as needed for Cough. 200 mg Quantity: 30 capsule Refills: 0 budesonide-formoterol 80-4.5 mcg/actuation Hfaa Commonly known as: SYMBICORT Inhale 2 puffs into the lungs 2 times daily. 2 puff Quantity: 1 Inhaler Refills: 0 buPROPion 150 mg Sr12 Commonly known as: WELLBUTRIN SR or ZYBAN daily. Refills: 0 carvedilol 12.5 mg Tab Commonly known as: COREG daily. Refills: 0 cholecalciferol (Vitamin D3) 2,000 unit Cap Take by mouth daily. Generic drug: cholecalciferol (Vitamin D3) Refills: 0 DAILY MULTI ORAL Take 1 tablet by mouth daily. 1 tablet Refills: 0 fluticasone propionate 50 mcg/actuation Spsn Commonly known as: FLONASE 1 spray by Each Nare route 2 times daily. 1 spray Quantity: 16 g Refills: 12 levothyroxine 50 mcg Tab Commonly known as: SYNTHROID Take 1 tablet by mouth daily. 50 mcg Refills: 0 losartan 25 mg Tab Commonly known as: COZAAR daily. Refills: 0 methylPREDNISolone 4 mg Tab Commonly known as: MEDROL Take 0.5 tablets by mouth daily. 2 mg Quantity: 45 tablet Refills: 0 metroNIDAZOLE 0.75 % Crea Commonly known as: METROCREAM as needed. Refills: 0 nitroGLYcerin 0.4 mg Subl Commonly known as: NITROSTAT PLACE ONE TABLET UNDER THE TONGUE EVERY 5 MINUTES FOR UP TO 3 DOSES NEEDED FOR CHEST PAIN. IF CHEST PAIN STILL PERSISTS CONTACT 911 Refills: 1 omeprazole 40 mg Cpdr Commonly known as: PriLOSEC Take 40 mg by mouth daily. 40 mg Refills: 0 RESTORIL 30 mg Cap 30 mg, PO, QHS Generic drug: temazepam Refills: 0 RITUXAN IV Inject into the vein. Refills: 0 terazosin 1 mg Cap Commonly known as: HYTRIN Take 1 mg by mouth nightly. 1 mg Refills: 0 TYLENOL EXTRA STRENGTH 500 mg Tab Take 1,000 mg by mouth every 6 hours as needed. Generic drug: acetaminophen 1000 mg Refills: 0 venlafaxine 150 mg Cp24 Commonly known as: EFFEXOR-XR daily. Refills: 0 * This list has 2 medication(s) that are the same as other medications prescribed for you. Read thedirections carefully, and ask your doctor or other care provider to review them with you. STOPPED Medications lovastatin 10 mg Tab Commonly known as: MEVACOR Smoking Status at Discharge: Social History Tobacco Use Smoking Status Never Smoker Smokeless Tobacco Never Used Instructions Given to Patient at Discharge: Patient Instructions Discharge Instructions following cardiac catheterization Cardiology Instructions Call your doctor if you experience: Chest pain, dyspnea, pain or swelling in legs occurs. If you have non-emergent questions between now and the time of your follow up appointments: -During 8am-5pm Saturday through Saturday call [phone] to speak with a nurse in the cardiology clinic -All other times call [phone] and ask to speak to the straddle bug driver home economist. MEDICATIONS - you need to be on daily Plavix for at least 6 months and aspirin for lifetime to help prevent clots forming inside of your stent. - keep nitroglycerin with you at all times, if you have chest pain, can take 1 tablet under your tongue every 5 minutes up to 3 tablets. If your pain does not resolve you need to call 911. Return to work/ usual activities: 1 week, as tolerated. Do not lift anything greater than 1 gallon for milk for 1 week You can shower the day after your procedure, but don't take any tub baths or soak in pools for 1 week after your procedure. Driving: No driving for 48 hours after catheterization. Follow up Appointments: Primary care provider: Cardiology: Arelis Michele MD [phone] Follow up as planned or as needed. Dr. Sommers Expect a call next week to schedule 4-6 week follow up appointment General Instructions None Discharge References/Attachments None DONAVAN Fonseca Interventional Cardiology 03/21/19 8:00 AM //Isael Bedoya MD Interventional Kineseologist documented in this encounter Discharge Instructions * Patient Instructions* Isael Bedoya S - 03/20/2019 1:43 PM EDT Discharge Instructions following cardiac catheterization Cardiology Instructions Call your doctor if you experience: Chest pain, dyspnea, pain or swelling in legs occurs. If you have non-emergent questions between now and the time of your follow up appointments: -During 8am-5pm Saturday through Saturday call [phone] to speak with a nurse in the cardiology clinic -All other times call [phone] and ask to speak to the straddle bug driver home economist. MEDICATIONS - you need to be on daily Plavix for at least 6 months and aspirin for lifetime to help prevent clots forming inside of your stent. - keep nitroglycerin with you at all times, if you have chest pain, can take 1 tablet under your tongue every 5 minutes up to 3 tablets. If your pain does not resolve you need to call 911. Return to work/ usual activities: 1 week, as tolerated. Do not lift anything greater than 1 gallon for milk for 1 week You can shower the day after your procedure, but don't take any tub baths or soak in pools for 1 week after your procedure. Driving: No driving for 48 hours after catheterization. Follow up Appointments: Primary care provider: Cardiology: Arelis Michele MD [phone] Follow up as planned or as needed. Dr. Sommers Expect a call next week to schedule 4-6 week follow up appointment documented in this encounter Medications at Time of Discharge Medication Sig Dispensed Refills Start Date End Date clopidogrel (PLAVIX) 75 mg Tablet Take 1 [...] Med - OTC mositurizing eye drops 11/02/2010 atorvastatin (LIPITOR) 40 mg Tablet Take 1 tablet by mouth daily. 90 tablet 3 03/21/2019 09/14/2019 budesonide-formoterol (SYMBICORT) 80-4.5 mcg/actuation HFA Aerosol InhalerIndications:SOB (shortness of breath),Cough variant asthma Inhale 2 puffs into the lungs 2 times daily. 1 Inhaler 08/01/2018 08/29/2020 rituximab (RITUXAN IV) Inject into the vein. [...] as of this encounter Progress Notes * Miranda Quintanilla RN - 03/21/2019 9:37 AM EDT Patient Name: Leeanne Ybarra Patient Age: 68 y.o. Birthdate: 1950 Admit date: 03/20/2019 Attending Physician: Sean Manzano II, MD Leeanne Ybarra discharged to Home by private car with brother. All belongings sent with patient. DARRELL removed, incision healing well, no hematoma, skin free from pressure ulcers. 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 Patient instructed to call with concerns. * Rosemary Yip RN - 03/20/2019 3:25 PM EDT Pt arrived to U ~1520 with vital signs stable obtained as below. Pt denies CP and SOB. Denies pain. States he is hungry. R wrist site with gauze and tegaderm c/d/i. R groin puncture site with dsg in place c/d/i. Groin site soft to palpation. conveyor monitor applied. 03/20/19 1521 Adult Vital Signs Temp 36.5 ??C (97.7 ??F) Temp src Oral Heart Rate 68 Heart Rate Source Left BP (!) 134/92 BP Method Automatic Patient Position Lying Resp 20 SpO2 99 % Oxygen Therapy O2 Device RA documented in this encounter H&P Notes * Sean Manzano II - 03/20/2019 1:12 PM EDT Interventional Cardiology Post-PCI H&P Reason for Admission: s/p PCI History: 68 y/o man w hemidiaphragmatic paralysis, htn, hld, RA and mild ischemic CM (LVEF 41% with LAD regional WMA's) who presented to his primary stencil typist Dr. Sommers with chronic stable angina in addition to his severe dyspnea, who was referred for coronary angiography after SPECT MPI revealed evidence of a fixed defect in the LAD distribution. Coronary angiography revealed a significant obstructive (~75% angiographically) mid LAD lesion (just distal to the first diagonal branch). Advancement of a guide catheter was difficult due to significant radial artery spasm, so the case was converted to femoral. PCI (3.0x15mm resolute dina JALEEL) wasperformed, with excellent angiographic result. He tolerated the procedure well with no significant symptoms/complications. This patient is admitted post PCI for IV hydration, pain management, access site management in the setting of anticoagulation, telemetry monitoring, evaluation of their medical condition, and cardiacrehabilitation. PMH: Patient Active Problem List Diagnosis ??? CAD (coronary artery disease) ??? Diaphragm paralysis ??? Chronic rhinitis ??? Parsonage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 Neurology consult notes: Scanned outside documents Brachial [...] or any concern for mass, but this seemsunlikely given involvement of upper plexus. I will [...] I would have to revisit the diagnosis. ??? Cardiomyopathy ECHO/cardiac catheterization reports in scanned documents SUMMARY: ?? ECHO -> LEFT VH -> cardiomyopathy. RV hypokinetic. Aortic sclerosis without stenosis. Abnormal diastolic indices. Normal pulmonary artery pressure. Normal atria. LVEF 40%. ?? CATH -> Mild irregularities LAD, L circumflex, RCA and NORMAL Left main -> Medical therapyindicated . Multiple new meds added. (Clopidogrel, metoprolol, ASA 81 mg, terazosin, flovent, albuterol). ??? Chronic cough Orginates in throat; frequent throat clearing ??? SOB (shortness of breath) With exertion starting Aug 2013 ??? Post-nasal drip ??? Burning sensation in eye ??? Osteopenia ?? Osteopenia, DXA at [facility] in 06/2007. ?? Right wrist fracture (1962); ?? Right shoulder fracture (1967). ??? GERD (gastroesophageal reflux disease) ??? Hyperlipidemia ??? Depression ??? HTN (hypertension) ??? RA (rheumatoid arthritis) RF/CCP POSITIVE HISTORY OF PRESENT ILLNESS: Initially [...] however, noted the following flu he never feltas good as he had prior to his episode. Hospitalized in 1994 for C.diff colitis with colon polyps and underwent a hemicolectomy. He has had no recurrent symptoms. No outpatient medications have been marked as taking for the 03/20/19 encounter (Hospital Encounter). Allergies as of 03/12/2019 - Review Complete 02/16/2019 Allergen Reaction Noted ??? Calcium ??? Levothyroxine 01/13/2015 ??? Lisinopril 01/13/2015 Social History Socioeconomic History ??? Marital status: Single Spouse name: Not on file ??? Number of children: Not on file ??? Years of education: Not on file ??? Highest education level: Not on file Occupational History ??? Not on file Social Needs ??? Financial resource strain: Not on file ??? Food insecurity: Worry: Not on file Inability: Not on file ??? Transportation needs: Medical: Not on file Non-medical: Not on file Tobacco Use ??? Smoking status: Never Smoker ??? Smokeless tobacco: Never Used Substance and Sexual Activity ??? Alcohol use: No ??? Drug use: No ??? Sexual activity: Not on file Lifestyle ??? Physical activity: Days per week: Not on file Minutes per session: Not on file ??? Stress: Not on file Relationships ??? Social connections: Talks on phone: Not on file Gets together: Not on file Attends episcopal service: Not on file Active member of club or organization: Not on file Attends meetings of clubs or organizations: Not on file Relationship status: Not on file ??? Intimate partner violence: Fear of current or ex partner: Not on file Emotionally abused: Not on file Physically abused: Not on file Forced sexual activity: Not on file Other Topics Concern ??? Not on file Social History Narrative ??? Not on file Physical Exam BP 141/75 Pulse 79 Temp 36.5 ??C (97.7 ??F) (Oral) Resp 23 Wt 94.3 kg (207 lb 14.3 oz) SpO2 95% BMI 29.00 kg/m?? General: well-appearing, NAD HEENT: NC/AT, anicteric sclerae, OP clear, MMM Neck: supple, no LAD, no bruits or JVD Lungs: clear without W/R/R CV: RRR, S1, S2, no M/R/G Abd: Nl BS, soft, NT, ND, obese Ext: no C/C/Edema Vascular: 2+ radial, femoral, and intact distal pulses b/l syvek dressing in place Assessment/ Plan: 1. CAD, s/p pci to LAD - admit for overnight monitoring - telemetry, serial ECGs, - continue dual antiplatlet therapy (asa and plavix for 6 months) - IVF - continue BB, ACEi, -switch statin to lipitor - monitor access site - cardiac rehab consult - anticipate discharge in am -will need new RX for plavix and lipitor at DC 2. HTN, follow up trend and titrate therapy PRN. 3. Dyslipidemia, switch to high intensity statin Cardiology Staff Addendum I have seen the patient and reviewed Dr. Bedoya's above history and I agree with the details as written. The assessment and plan were formulated in discussion with me and I agree with them as documented. Sean Manzano MD * Verona Rodriguez PA - 03/20/2019 10:31 AM EDT Pre-Cardiac Catheterization 24 hr Update Please see Dr. Sommers' extensive note dated 03/09/19 for full details regarding reason for referral for cardiac catheterization. There has been no significant interval change in clinical status since that visit. Patient Active Problem List Diagnosis Code ??? 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 Chronic rhinitis J31.0 Consent obtained ASA II Mallapati III Lab Results Component Value Date WBC 7.0 03/20/2019 HGB 16.7 (H) 03/20/2019 HCT 52.1 (H) 03/20/2019 MCV 92.0 03/20/2019 PLATELET 225 03/20/2019 BMP pending documented in this encounter Miscellaneous Notes * Plan of Care - Breann Flynn RN - 03/21/2019 4:31 AM EDT Problem: Patient Care Overview Goal: Plan of Care Review Outcome: Ongoing (Interventions Implemented as Appropriate) 03/20/19200103/21/19 042 Plan of Care Review Progress -- progress toward functional goals as expected Coping/Psychosocial Plan Of Care Reviewed With patient -- OUTCOME EVALUATION NOTE: OUTCOME SUMMARY: Patient has had a good night. He has had no complaints of chest pain. Ambulating in the harris times 2. Patient was noted to be in a first degree heart block. Sites are CDI and soft. No signs of a hematoma at this time. Activity Summary: By discharge, patient will be able to perform self care, walk 5-7 minutes and go up and down stairs without signs or symptoms of ischemia. Date /Initials Baseline Response Symptoms/Comments 03/21 CICI Activity HR 65 98 No complaints of SOB. Stated that he felt great at this time. O2 Sat 97 97 PLAN MOVING FORWARD: Encourage ambulation, monitor heart INDIVIDUALIZED FALL PREVENTION INTERVENTIONS: Patient-specific fall risk factors per assessment: [current deficits]: Patient is at moderate risk for falls related to recent surgery Assistance [level of assistance required for transfers and ambulation]: Independent Supervision [direct monitoring required during toileting and ADLs]: Independent Surveillance [continuous indirect monitoring]: Purposeful rounding and call ponce within reach. Patient-specific fall prevention interventions for sensory deficits provided, if applicable: [X] No CPG GOAL OUTCOME EVALUATION: Goal: Fall Prevention-Safe Patient Handling Outcome: Ongoing (Interventions Implemented as Appropriate) 03/20/19200103/21/19 042 Daily Care Interventions Self-Care Promotion -- independence encouraged Ha Fall Risk History of Falling 25 -- Secondary Diagnosis 0 -- Ambulatory Aids 0 -- Intravenous Therapy/Heparin/Saline Lock 20 -- Gait/Transferring 0 -- Mental Status 0 -- Score 45 -- OTHER Ha Fall Risk High -- Restraint Interventions Safety Promotion/Fall Prevention activity supervised;fall prevention program maintained;muscle strengthening facilitated;nonskid shoes/slippers when out of bed;safety round/check completed -- Positioning Body Position supine, head elevated -- Activity Activity Type activity adjusted per tolerance -- Activity Assistance Provided independent -- Goal: Infection Control Outcome: Ongoing (Interventions Implemented as Appropriate) 03/20/192001 Safety Interventions Isolation Precautions standard precautions maintained Infection Prevention environmental surveillance performed;rest/sleep promoted;single patient room provided Coping Strategies Supportive Measures active listening utilized;positive reinforcement provided;self-care encouraged Goal: Discharge Needs Assessment Outcome: Ongoing (Interventions Implemented as Appropriate) 03/21/19421 Discharge Needs Assessment Concerns To Be Addressed no discharge needs identified Readmission Within The Last 30 Days no previous admission in last 30 days Discharge Disposition still a patient Current Health Anticipated Changes Related to Illness none Living Environment Transportation Available car;family or friend will provide Goal: Interdisciplinary Rounds/Family Conf Outcome: Ongoing (Interventions Implemented as Appropriate) 03/21/19421 Interdisciplinary Rounds/Family Conf Participants nursing;patient;physician * Op Note - Sean Manzano II - 03/20/2019 1:06 PM EDT [facility] [place] LEEANNE YBARRA March 20, 2019 [id number] [employer] - Preliminary Findings Procedures: coronary angiography left heart catheterization right heart catheterization oximetry stent insertion-coronary vascular closure device access site angiography Technique: Seldinger via right radial artery. Seldinger via right median antecubital vein. Seldinger via right femoral artery. Heparin: 8,000U administered. ACT: Peak 307. Contrast: 160cc Omnipaque. Radiation: Fluoro time: 17.7 minutes, dose area product: 133,991 mGYcm2 and air kerma: 1,867 mGY. Findings: Hemodynamics: Syst Diast EDP a v m RA 5 4 3 RV 25 9 PA 25 11 15 PCW 12 9 8 Ao 109 63 83 LV 122 16 Profile 1 Profile 2 CO 7.83 7.87 CI 3.66 3.68 TSR 848 844 SVR 817 813 TPR 153 152 PVR 72 71 Technique Estimated Honey Thermodilution Comments: LV pullback: LV 125, EDP 15. Ao 123/55 (83). Oximetry: %Sat MPA 78.0 RV 75.0 MRA 77.0 IVC 85.0 SVC 74.0 Fabricio 94.0 Coronary Angiography: Right Dominant LM Mid 2 - Mild diffuse. LAD Distal - Mild diffuse. Mid 1 - 80%. LCX Proximal - Mild diffuse. RCA Entire vessel - Mild diffuse. Intervention Summary: LAD - Mid 1 80% Stent Inserted: Predilatation - 2.50mm EUPHORA 12 MM Max 10 leticia. Device - 3.00 x 15 mm Resolute DINA. Deployment - premounted 10 leticia. Postdilatation - 3.00mm NC EUPHORA 12 MM Max 15 leticia. Final Result: Vasodilator given. No residual stenosis. Indication for stent - prevent primary restenosis. Vascular Access Angiogram: An angiogram at the right femoral artery revealed no significant obstructive disease. Vascular Closure Device: 6 Fr Perclose deployed at the right femoral artery access site. Device successful. Complications/Events: None The attending physician was present for the entire procedure. Dr. Sean Manzano M.D. performed the coronary angiography, left heart catheterization, right heart catheterization, oximetry, stent insertion- coronary, access site angiography and vascular closure device. Isael Bedoya M.D. (Fellow) Sean Manzano M.D. 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 03/23/2019 12:00 AM EDT EKG 12-LEAD Routine 03/21/2019 7:01 AM EDT Abnormal stress test BMP W/FASTING GLUCOSE Routine 03/21/2019 3:16 AM EDT HEMOGRAM Routine 03/21/2019 3:16 AM EDT DIFFERENTIAL, AUTOMATED Routine 03/21/2019 3:16 AM EDT CBC (WITH DIFF) Routine 03/21/2019 3:16 AM EDT LIPID PANEL (REFLEX DIRECT LDL) Routine 03/21/2019 3:16 AM EDT EKG 12-LEAD Routine 03/20/2019 2:04 PM EDT Abnormal stress test EKG 12-LEAD Routine 03/20/2019 10:26 AM EDT Abnormal stress test Chest discomfort BMP W/FASTING GLUCOSE STAT 03/20/2019 9:47 AM EDT HEMOGRAM STAT 03/20/2019 9:47 AM EDT DIFFERENTIAL, AUTOMATED STAT 03/20/2019 9:47 AM EDT CBC (WITH DIFF) STAT 03/20/2019 9:47 AM EDT documented in this encounter Results * SCAN DOC: COMMUNICATIONS TOWER TECHNICIAN (03/23/2019 12:00 AM EDT) Anatomical Region Laterality Modality Other Narrative 03/23/2019 12:00 AM EDT Ordered by an unspecified provider. Scanning Provider MEDIA MGR SCAN EXT O RDR/RSLT * EKG 12 Lead (03/21/2019 7:01 AM EDT) Ventricular rate 67 BPM MUSE SYSTEM Atrial Rate 67 BPM MUSE SYSTEM P-R Interval 202 ms MUSE SYSTEM QRS Duration 114 ms MUSE SYSTEM Q-T Interval 420 ms MUSE SYSTEM QTC Calculated (Bezet) 443 ms MUSE SYSTEM Calculated P Rockledge 28 degrees MUSE SYSTEM Calculated R Rockledge 19 degrees MUSE SYSTEM Calculated T Rockledge 22 degrees MUSE SYSTEM INTERPRETATION Normal sinus rhythm Normal ECG When compared with ECG of 20-MAR-2019 14:04, Fusion complexes are no longer Present CT interval has decreased Confirmed by MD Amanda, Oseas ([id number]) on 03/21/2019 11:48:04 AM MUSE SYSTEM 03/21/2019 7:01 AM EDT 03/21/2019 11:48 AM EDT Sean Manzano II, MD ECG ORDERABLES MUSE SYSTEM * (ABNORMAL) Differential, Automated (03/21/2019 3:16 AM EDT) Neutrophil % 69.9 % [facility] Neutrophil Absolute 6.15(H) 1.70 - 6.10 x10(3)/mc L [facility] Lymph % 16.4 % [facility] Lymphocytes Abs 1.4 0.9 - 3.2 x10(3)/mc L [facility] Monocyte % 9.3 % [facility] Monocyte Abs 0.8 0.3 - 0.9 x10(3)/mc L [facility] Eos % 3.6 % [facility] Eosinophils Abs 0.3 0.0 - 0.4 x10(3)/mc L [facility] Basophil % 0.5 % [facility] Baso Absolute 0.0 0.0 - 0.1 x10(3)/mc L [facility] Immature Gran % 0.30 % [facility] Comment: Immature granulocytes(IG's)percentage and absolute count will include metamyelocytes, myelocytes, and promyelocytes. Blood smears from CBCs yielding IG's will be scanned manually for concordance. If this scan disagrees with the automated IG or if promyelocytes are noted, a manual differential will be performed. Immature Gran Absolute 0.03 0.00 - 0.04 x10(3)/mc L [facility] Blood specimen (specimen) 03/21/2019 3:16 AM EDT 03/21/2019 3:23 AM EDT Narrative Resulting Agency Comment Spec In Lab Isael Bedoya MD HEMATOLOGY ORDERABLE S Performing Organization Address City/[facility]/ZIP Co de Phone Number [facility] [place] [address] * Hemogram (03/21/2019 3:16 AM EDT) White Blood Cell 8.8 4.0 - 9.5 x10(3)/[facility] Red Blood Cell 5.34 4.58 - 5.54 x10(6)/[facility] Hemoglobin 15.9 13.7 - 16.5 gm/dL [facility] Hematocrit 46.8 40.5 - 48.5 % [facility] Mean Cell Volume 87.6 82.9 - 93.1 [facility] Mean Cell Hemoglobin 29.8 27.5 - 32.1 pg [facility] Mean Cell Hemoglobin Concentration 34.0 32.0 - 35.7 gm/dL [facility] Platelet 189 145 - 357 x10(3)/[facility] RDW Standard Deviation 43.5 36.0 - 45.0 [facility] RDW coefficient of variation 13.5 11.4 - 13.8 % [facility] Mean Platelet Volume 9.9 7.6 - 12.9 [facility] NRBC% auto 0.0 % [facility] NRBC Absolute 0.000 0.000 - 0.000 x10(3)/[facility] Blood specimen (specimen) 03/21/2019 3:16 AM EDT 03/21/2019 3:23 AM EDT Narrative Resulting Agency Comment Spec In Lab Isael Bedoya MD HEMATOLOGY ORDERABLE S [facility] [place] [address] * Lipid Panel (03/21/2019 3:16 AM EDT) Cholesterol, Total 128 mg/dL M [facility] Comment: Lower Risk: <200 mg/dL Average Risk: 200-239 mg/dL Higher Risk: >xn=563 mg/dL Triglyceride 100 mg/dL [facility] Comment: Average Risk/Lower Risk: <150 mg/dL Borderline High Risk: 150-199 mg/dL High Risk: 200-499 mg/dL Very High Risk: >hu=077 mg/dL HDL Cholesterol 51 mg/dL [facility] Comment: Males: ?? Higher Risk: <40 mg/dL Females: ?? HIgher Risk: <50 mg/dL LDL Cholesterol 57 mg/dL [facility] Comment: Lowest Risk: <100 mg/dL Lower Risk: 100-129 mg/dL Borderline High Risk: 130-159 mg/dL High Risk: 160-189 mg/dL Very High Risk: >mn=542 mg/dL Cholesterol/HDL Ratio 2.5 ratio [facility] Lipid Interpretation See Note [facility] Comment: Lipid management should be guided by a patient? s ASCVD risk, goals and preferences. ACC/AHA Guidelines recommend high intensity statin if clinical ASCVD or LDL greater than or equal to 190 mg/dL. http://[email or web address].com/TEV-PYC-Yqnemvjsm Adults aged 40-75 with LDL 70-189 mg/dL should have their 10 year ASCVD risk estimated with the ACC/AHA ASCVD risk estimator jewelry http://tools.acc.org/JQKFS-Yrjg-Mquiiqgff/ Statin should be discussed if risk greater [...] of ASCVD risk reduction. Blood specimen (specimen) 03/21/2019 3:16 AM EDT 03/21/2019 3:23 AM EDT Narrative Resulting Agency Comment Spec In Lab Sean Manzano II, MD CHEMISTRY ORDER DARIAN [facility] [place] [address] * BMP w/fasting Glucose (03/21/2019 3:16 AM EDT) Glucose Fasting 81 65 - 99 mg/dL [facility] Comment: ?Fasting* Glucose Interpretive Criteria Normal ?65-99 mg/dL Impaired Fasting glucose ?100-125 mg/dL Consistent with Diabetes Mellitus ? >or= 126 mg/dL *Fasting is defined as no caloric intake for at least 8 hours In the absence of unequivocal hyperglycemia a plasma glucose value of >or= 126 mg/dL should be repeated on a subsequent day. Diagnosis and Classification of Diabetes Mellitus, Position Statement from the [employer] Diabetes Association. ??Diabetes Care, Volume 33, Supplement 1, Sep 2009 Blood Urea Nitrogen 14 10 - 20 mg/dL [facility] Creatinine 0.97 0.80 - 1.50 mg/dL [facility] Sodium 139 135 - 145 mmol/L [facility] Potassium 4.0 3.5 - 5.0 mmol/L [facility] Comment: Please note: ??Patients with WBC >100,000 may have falsely elevated Potassium levels. ??For accurate Potassium quantification in these patients send serum separator tube (gold top) for subsequent determinations. ??Contact the Clinical Chemistry Laboratory if there are any questions. Chloride 104 98 - 107 mmol/L [facility] Carbon Dioxide 24 22 - 31 mmol/L [facility] Anion Gap 11 5 - 15 mmol/L [facility] Calcium 8.8 8.5 - 10.5 mg/dL [facility] Est Glomerular Filtration Rate 79 >=60 mL/min/1. 73 m?? [facility] Comment: The eGFR was calculated using the CKD-EPI equation. As with all creatinine based estimates of kidney function, eGFR values calculated with the CKD-EPI equation are not accurate in patients with acute kidney failure, extremes of body mass or the acutely ill. [email or web address]/[facility] eGFR 91 >=60 mL/min/1. 73 m?? [facility] Comment: The eGFR was calculated using the CKD-EPI equation. As with all creatinine based estimates of kidney function, eGFR values calculated with the CKD-EPI equation are not accurate in patients with acute kidney failure, extremes of body mass or the acutely ill. [email or web address] Blood specimen (specimen) 03/21/2019 3:16 AM EDT 03/21/2019 3:23 AM EDT Narrative Resulting Agency Comment Spec In Lab Sean Manzano II, MD CHEMISTRY ORDER DARIAN [facility] [place] [address] * EKG 12 Lead (03/20/2019 2:04 PM EDT) Ventricular rate 59 BPM MUSE SYSTEM Atrial Rate 59 BPM MUSE SYSTEM P-R Interval 236 ms MUSE SYSTEM QRS Duration 110 ms MUSE SYSTEM Q-T Interval 418 ms MUSE SYSTEM QTC Calculated (Bezet) 413 ms MUSE SYSTEM Calculated P Rockledge 48 degrees MUSE SYSTEM Calculated R Rockledge 2 degrees MUSE SYSTEM Calculated T Rockledge 27 degrees MUSE SYSTEM INTERPRETATION Sinus bradycardia with 1st degree A-V block with Fusion complexes Otherwise normal ECG When compared with ECG of 20-MAR-2019 10:26, Fusion complexes are now Present CT interval has increased Confirmed by MD Posey Megan ([id number]) on 03/20/2019 6:27:11 PM MUSE SYSTEM 03/20/2019 2:04 PM EDT 03/20/2019 6:27 PM EDT Sean Manzano II, MD ECG ORDERABLES Performing Organization Address City/[facility] Co de Phone Number MUSE SYSTEM * EKG 12 Lead (03/20/2019 10:26 AM EDT) Ventricular rate 64 BPM MUSE SYSTEM Atrial Rate 64 BPM MUSE SYSTEM P-R Interval 206 ms MUSE SYSTEM QRS Duration 116 ms MUSE SYSTEM Q-T Interval 402 ms MUSE SYSTEM QTC Calculated (Bezet) 414 ms MUSE SYSTEM Calculated P Rockledge 19 degrees MUSE SYSTEM Calculated R Rockledge 8 degrees MUSE SYSTEM Calculated T Rockledge 28 degrees MUSE SYSTEM INTERPRETATION Normal sinus rhythm Normal ECG When compared with ECG of 16-FEB-2019 10:55, No significant change was found Confirmed by MD Taty, Mely ([id number]) on 03/20/2019 6:27:09 PM MUSE SYSTEM 03/20/2019 10:2 6 AM EDT 03/20/2019 6:27 PM EDT Syed Garcia MD ECG ORDERABLES Performing Organization Address [facility] Co de Phone Number MUSE SYSTEM * Differential, Automated (03/20/2019 9:47 AM EDT) Neutrophil % 55.1 % [facility] Neutrophil Absolute 3.84 1.70 - 6.10 x10(3)/[facility] Lymph % 31.3 % [facility] Lymphocytes Abs 2.2 0.9 - 3.2 x10(3)/[facility] Monocyte % 8.7 % [facility] Monocyte Abs 0.6 0.3 - 0.9 x10(3)/[facility] Eos % 4.4 % [facility] Eosinophils Abs 0.3 0.0 - 0.4 x10(3)/[facility] Basophil % 0.4 % [facility] Baso Absolute 0.0 0.0 - 0.1 x10(3)/[facility] Immature Gran % 0.10 % [facility] Comment: Immature granulocytes(IG's)percentage and absolute count will include metamyelocytes, myelocytes, and promyelocytes. Blood smears from CBCs yielding IG's will be scanned manually for concordance. If this scan disagrees with the automated IG or if promyelocytes are noted, a manual differential will be performed. Immature Gran Absolute 0.01 0.00 - 0.04 x10(3)/mcL [facility] Blood specimen (specimen) 03/20/2019 9:47 AM EDT 03/20/2019 10:01 AM EDT Narrative Resulting Agency Comment Spec In Lab [place] GO HEMATOLOGY ORDERABLE S [facility] [place] [address] * (ABNORMAL) Hemogram (03/20/2019 9:47 AM EDT) White Blood Cell 7.0 4.0 - 9.5 x10(3)/[facility] Red Blood Cell 5.66(H) 4.58 - 5.54 x10(6)/[facility] Hemoglobin 16.7(H) 13.7 - 16.5 gm/dL [facility] Hematocrit 52.1(H) 40.5 - 48.5 % [facility] Mean Cell Volume 92.0 82.9 - 93.1 [facility] Mean Cell Hemoglobin 29.5 27.5 - 32.1 pg [facility] Mean Cell Hemoglobin Concentration 32.1 32.0 - 35.7 gm/dL [facility] Platelet 225 145 - 357 x10(3)/[facility] RDW Standard Deviation 46.8(H) 36.0 - 45.0 [facility] RDW coefficient of variation 13.8 11.4 - 13.8 % [facility] Mean Platelet Volume 9.8 7.6 - 12.9 [facility] NRBC% auto 0.0 % [facility] NRBC Absolute 0.000 0.000 - 0.000 x10(3)/mc L [facility] Blood specimen (specimen) 03/20/2019 9:47 AM EDT 03/20/2019 10:01 AM EDT Narrative Resulting Agency Comment Spec In Lab [place] GO HEMATOLOGY ORDERABLE S [facility] [place] [address] * (ABNORMAL) BMP w/fasting Glucose (03/20/2019 9:47 AM EDT) Glucose Fasting 104(H) 65 - 99 mg/dL [facility] Comment: ?Fasting* Glucose Interpretive Criteria Normal ?65-99 mg/dL Impaired Fasting glucose ?100-125 mg/dL Consistent with Diabetes Mellitus ? >or= 126 mg/dL *Fasting is defined as no caloric intake for at least 8 hours In the absence of unequivocal hyperglycemia a plasma glucose value of >or= 126 mg/dL should be repeated on a subsequent day. Diagnosis and Classification of Diabetes Mellitus, Position Statement from the [employer] Diabetes Association. ??Diabetes Care, Volume 33, Supplement 1, Sep 2009 Blood Urea Nitrogen 19 10 - 20 mg/dL [facility] Creatinine 1.10 0.80 - 1.50 mg/dL [facility] Sodium 141 135 - 145 mmol/L [facility] Potassium 4.4 3.5 - 5.0 mmol/L [facility] Comment: Please note: ??Patients with WBC >100,000 may have falsely elevated Potassium levels. ??For accurate Potassium quantification in these patients send serum separator tube (gold top) for subsequent determinations. ??Contact the Clinical Chemistry Laboratory if there are any questions. Chloride 104 98 - 107 mmol/L [facility] Carbon Dioxide 27 22 - 31 mmol/L [facility] Anion Gap 10 5 - 15 mmol/L [facility] Calcium 9.5 8.5 - 10.5 mg/dL [facility] Est Glomerular Filtration Rate 68 >=60 mL/min/1. 73 m?? [facility] Comment: The eGFR was calculated using the CKD-EPI equation. As with all creatinine based estimates of kidney function, eGFR values calculated with the CKD-EPI equation are not accurate in patients with acute kidney failure, extremes of body mass or the acutely ill. [email or web address]/[facility]OR[facility]kf eGFR 78 >=60 mL/min/1. 73 m?? [facility] Comment: The eGFR was calculated using the CKD-EPI equation. As with all creatinine based estimates of kidney function, eGFR values calculated with the CKD-EPI equation are not accurate in patients with acute kidney failure, extremes of body mass or the acutely ill. http://eZWay/[facility]f Blood specimen (specimen) 03/20/2019 9:47 AM EDT 03/20/2019 10:01 AM EDT Narrative Resulting Agency Comment Spec In Lab Syed Garcia MD CHEMISTRY ORDERABLES [facility] [place] [address] documented in this encounter Visit Diagnoses Diagnosis Abnormal stress test Other nonspecific abnormal cardiovascular system function study Chest discomfort Other chest pain Abnormal stress test Other nonspecific abnormal cardiovascular system function study Chest discomfort Other chest pain documented in this encounter Admitting Diagnoses Diagnosis CAD (coronary artery disease) Coronary atherosclerosis of unspecified type of vessel, [place] or graft documented in this encounter Administered Medications Inactive Administered Medications - up to 3 most recent administrations Medication Order MAR Action Action Date Dose Rate Site aspirin EC tablet 81 mg 81 mg, Oral, DAILY, First dose on Sat03/20/19 at 1700, Until Discontinued, Routine Given 03/21/2019 8:13 AM EDT 81 mg Given 03/20/2019 5:27 PM EDT 81 mg atorvastatin (LIPITOR) tablet 40 mg 40 mg, Oral, EVERY EVENING, First dose on Sat03/20/19 at 1700, Until Discontinued Given 03/20/2019 5:27 PM EDT 40 mg buPROPion (WELLBUTRIN SR or ZYBAN) SR tablet 150 mg 150 mg, Oral, DAILY, First dose on Sat03/20/19 at 1700, Until Discontinued, DO NOT CRUSH OR OPEN, Routine Given 03/21/2019 8:13 AM EDT 150 mg Given 03/20/2019 5:28 PM EDT 150 mg carvedilol (COREG) tablet 12.5 mg 12.5 mg, Oral, 2 TIMES DAILY WITH MEALS, First dose on Sat03/20/19 at 1700, Until Discontinued, Routine Given 03/21/2019 8:13 AM EDT 12.5 mg Given 03/20/2019 5:27 PM EDT 12.5 mg clopidogrel (PLAVIX) tablet 75 mg 75 mg, Oral, DAILY, First dose on Sat03/21/19 at 0900, Until Discontinued, Recovery (Recovery-Hospital Unit), Routine Given 03/21/2019 8:13 AM EDT 75 mg clopidogrel (PLAVIX) tablet ONCE PRN, Starting on Sat03/20/19 at 1203, Until Sat03/20/19 at 1251, Cath (Intra-Procedure), Routine Given 03/20/2019 12:03 PM EDT 600 mg fentaNYL 50 mcg/mL multi-dose injection ONCE PRN, Starting on Sat03/20/19 at 1113, Until Sat03/20/19 at 1251, Intra-Operative (Intra-Procedure), Routine Given 03/20/2019 12:42 PM EDT 25 mcg Left Arm Given 03/20/2019 12:04 PM EDT 25 mcg L eft Arm Given 03/20/2019 11:55 AM EDT 25 mcg L eft Arm heparin (porcine) injection ONCE PRN, Starting on Sat03/20/19 at 1120, Until Sat03/20/19 at 1251, Cath (Intra-Procedure), Routine Given 03/20/2019 12:00 PM EDT 3,000 Units Left Arm Given 03/20/2019 11:20 AM EDT 5,000 Units Left Arm iohexol (OMNIPAQUE) 350 mg/mL solution ONCE PRN, Starting on Sat03/20/19 at 1242, Until Sat03/20/19 at 1251, Cath (Intra-Procedure), Routine Given 03/20/2019 12:42 PM EDT 160 mLs levothyroxine (SYNTHROID) tablet 50 mcg 50 mcg, Oral, DAILY, First dose on 03/21/19 at 0600, Until Discontinued, Routine Given 03/21/2019 6:34 AM EDT 50 mcg lidocaine (XYLOCAINE) 10 mg/mL (1 %) injection 3 mg 3 mg (0.3 mL), Subcutaneous, ONCE PRN, 1 dose, Starting on Sat03/20/19 at 1008, Until Sat03/20/19 at 1207, with discomfort with PIV insertion, Cath (Day of Procedure), Routine Given 03/20/2019 12:07 PM EDT 7 mLs Right Lower Quadrant lidocaine (XYLOCAINE) 10 mg/mL (1 %) injection ONCE PRN, Starting on Sat03/20/19 at 1119, Until Sat03/20/19 at 1251, Cath (Intra-Procedure), Routine Given 03/20/2019 11:19 AM EDT 5 mLs Right Arm losartan (COZAAR) tablet 25 mg 25 mg, Oral, DAILY, First dose on 03/21/19 at 0900, Until Discontinued, Routine Given 03/21/2019 8:13 AM EDT 25 mg midazolam (PF) (VERSED) multi-dose injection ONCE PRN, Starting on Sat03/20/19 at 1114, Until Sat03/20/19 at 1251, Cath (Intra-Procedure), Routine Given 03/20/2019 12:42 PM EDT 1 mg Left Arm Given 03/20/2019 12:04 PM EDT 1 mg L eft Arm Given 03/20/2019 11:55 AM EDT 1 mg L eft Arm nitroGLYcerin 100 mcg/mL intracoronary dilution ONCE PRN, Starting on Sat03/20/19 at 1118, Until Sat03/20/19 at 1251, Cath (Intra-Procedure), Routine Given 03/20/2019 11:18 AM EDT 150 mcg sodium chloride 0.9% infusion 150 mL/hr, Intravenous, CONTINUOUS, Starting on Sat03/20/19 at 1345, Until Sat03/20/19 at 1644, Recovery (Recovery-Hospital Unit) New Bag 03/20/2019 1:45 PM EDT 150 mL/hr 150 mL /hr terazosin (HYTRIN) capsule 1 mg 1 mg, Oral, NIGHTLY, First dose on Sat03/20/19 at 2100, Until Discontinued, Routine Given 03/20/2019 8:33 PM EDT 1 mg venlafaxine (EFFEXOR-XR) XR Capsule 150 mg 150 mg, Oral, DAILY, First dose on Sat03/21/19 at 0900, Until Discontinued, DO NOT CRUSH OR OPEN, Routine Given 03/21/2019 8:14 AM EDT 150 mg verapamil (ISOPTIN) injection ONCE PRN, Starting on Sat03/20/19 at 1118, Until Sat03/20/19 at 1251, Administer over 2 Minutes, Cath (Intra-Procedure) Given 03/20/2019 11:18 AM EDT 2.5 mg documented in this encounter Active and Recently Administered Medications Times are shown in EDT. Scheduled Medication Order 03/19/2019 03/20/2019 03/21/2019 aspirin EC tablet 81 mg 81 mg, Oral, DAILY, First dose on Sat03/20/19 at 1700, Until Discontinued, Routine 172 (Given - Provider: Miranda Quintanilla RN) 08 (Given - Provider: Miranda Quintanilla, ASHLEY) atorvastatin (LIPITOR) tablet 40 mg 40 mg, Oral, EVERY EVENING, First dose on Sat03/20/19 at 1700, Until Discontinued 172 (Given - Provider: Miranda Quintanilla, ASHLEY) budesonide-formoterol (SYMBICORT) 80-4.5 mcg/actuation inhaler 2 Inhalation 2 Inhalation , Inhalation, 2 TIMES DAILY, First dose on Sat03/20/19 at 2100, Until Discontinued, Routine 2100 (Not Given - Provider: Breann Flynn RN - Reason: Order parameters not met) 0900 (Not Given - Provider: Miranda Quintanilla, ASHLEY - Reason: Medication not available) buPROPion (WELLBUTRIN SR or ZYBAN) SR tablet 150 mg 150 mg, Oral, DAILY, First dose on Sat03/20/19 at 1700, Until Discontinued, DO NOT CRUSH OR OPEN, Routine 172 (Given - Provider: Miranda Quintanilla, ASHLEY) 0813 (Given - Provider: Miranda Quintanilla, ASHLEY) carvedilol (COREG) tablet 12.5 mg 12.5 mg, Oral, 2 TIMES DAILY WITH MEALS, First dose on Sat03/20/19 at 1700, Until Discontinued, Routine 172 (Given - Provider: Miranda Quintanilla RN) 08 (Given - Provider: Miranda Quintanilla RN) clopidogrel (PLAVIX) tablet 75 mg 75 mg, Oral, DAILY, First dose on 03/21/19 at 0900, Until Discontinued, Recovery (Recovery-Hospital Unit), Routine 08 (Given - Provid er: Miranda Quintanilla RN) fluticasone propionate (FLONASE) 50 mcg/actuation nasal spray 1 spray 1 spray, Each Nare, 2 TIMES DAILY, First dose on Sat03/20/19 at 2100, Until Discontinued, Routine 2100 (Not Given - Provider: Breann Flynn RN - Reason: Order parameters not met) 0900 (Not Given - Provider: Miranda Quintanilla RN - Reason: Medication not available) levothyroxine (SYNTHROID) tablet 50 mcg 50 mcg, Oral, DAILY, First dose on 03/21/19 at 0600, Until Discontinued, Routine 06 (Given - Provid er: Breann Flynn RN) losartan (COZAAR) tablet 25 mg 25 mg, Oral, DAILY, First dose on 03/21/19 at 0900, Until Discontinued, Routine 08 (Given - Provid er: Miranda Quintanilla RN) methylPREDNISolone (MEDROL) tablet 2 mg 2 mg, Oral, DAILY, First dose on 03/21/19 at 0900, Until Discontinued, Routine 09 (Not Given - Provider: Miranda Quintanilla RN - Reason: See comment - Comment: pt states that he does not take this) terazosin (HYTRIN) capsule 1 mg 1 mg, Oral, NIGHTLY, First dose on Sat03/20/19 at 2100, Until Discontinued, Routine 2032 (Given - Provider: Breann Flynn RN) venlafaxine (EFFEXOR-XR) XR Capsule 150 mg 150 mg, Oral, DAILY, First dose on 03/21/19 at 0900, Until Discontinued, DO NOT CRUSH OR OPEN, Routine 08 (Given - Provid er: Miranda Quintanilla RN) Continuous Medication Order 03/19/2019 03/20/2019 03/21/2019 sodium chloride 0.9% infusion 150 mL/hr, Intravenous, CONTINUOUS, Starting on Sat03/20/19 at 1345, Until Sat03/20/19 at 1644, Recovery (Recovery-Hospital Unit) 1345 (New Bag - Provider: Miranda Quintanilla, ASHLYE) PRN Medication Order 03/19/2019 03/20/2019 03/21/2019 acetaminophen (TYLENOL) tablet 1,000 mg 1,000 mg, Oral, EVERY 6 HOURS PRN, Starting on Sat03/20/19 at 1535, Until 03/21/19 at 1140, Pain, Maximum dose of acetaminophen is 4000 mg from all sources in 24 hours., Routine benzonatate (TESSALON) capsule 200 mg 200 mg, Oral, 3 TIMES DAILY PRN, Starting on Sat03/20/19 at 1535, Until 03/21/19 at 1140, Cough, DO NOT CRUSH OR OPEN, Routine clopidogrel (PLAVIX) tablet (CANCELED) ONCE PRN, Starting on Sat03/20/19 at 1203, Until Sat03/20/19 at 1251, Cath (Intra-Procedure), Routine 1203 (Given - Provider: Kalen Mane) fentaNYL 50 mcg/mL multi-dose injection (CANCELED) ONCE PRN, Starting on Sat03/20/19 at 1113, Until Sat03/20/19 at 1251, Intra-Operative (Intra-Procedure), Routine 1113 (Given - Provider: Kalen Mane)1155 (Given - Provider: Kalen Mane)1204 (Given - Provider: Kalen Mane)1242 (Given - Provider: Austin Hess RN) heparin (porcine) injection (CANCELED) ONCE PRN, Starting on Sat03/20/19 at 1120, Until Sat03/20/19 at 1251, Cath (Intra-Procedure), Routine 1120 (Given - Provider: Kalen Mane)1200 (Given - Provider: Kalen Mane) iohexol (OMNIPAQUE) 350 mg/mL solution (CANCELED) ONCE PRN, Starting on Sat03/20/19 at 1242, Until Sat03/20/19 at 1251, Cath (Intra-Procedure), Routine 1242 (Given - Provider: Sean Manzano II) lidocaine (XYLOCAINE) 10 mg/mL (1 %) injection 3 mg (COMPLETED) 3 mg (0.3 mL), Subcutaneous, ONCE PRN, 1 dose, Starting on Sat03/20/19 at 1008, Until Sat03/20/19 at 1207, with discomfort with PIV insertion, Cath (Day of Procedure), Routine 1207 (Given - Provider: Sean Manzano II) lidocaine (XYLOCAINE) 10 mg/mL (1 %) injection (CANCELED) ONCE PRN, Starting on Sat03/20/19 at 1119, Until Sat03/20/19 at 1251, Cath (Intra-Procedure), Routine 1119 (Given - Provider: Sean Manzano II) midazolam (PF) (VERSED) multi-dose injection (CANCELED) ONCE PRN, Starting on Sat03/20/19 at 1114, Until Sat03/20/19 at 1251, Cath (Intra-Procedure), Routine 1114 (Given - Provider: Kalen Mane)1155 (Given - Provider: Kalen Mane)1204 (Given - Provider: Kalen Mane)1242 (Given - Provider: Austin Hess RN) nitroGLYcerin 100 mcg/mL intracoronary dilution (CANCELED) ONCE PRN, Starting on Sat03/20/19 at 1118, Until Sat03/20/19 at 1251, Cath (Intra-Procedure), Routine 1118 (Given - Provider: Sean Manzano II) verapamil (ISOPTIN) injection (CANCELED) ONCE PRN, Starting on Sat03/20/19 at 1118, Until Sat03/20/19 at 1251, Administer over 2 Minutes, Cath (Intra-Procedure) 1118 (Given - Provider: Sean Manzano II) documented in this encounter Care Teams Flat Machine Cutter Relationship Specialty Start Date End Date Arelis Michele MD [address] [place] [address] PCP - General Family Medicine 08/01/18 02/11/24 documented as of this encounter
--- OUTSIDE RECORDS SUMMARY | 2024-04-06 02:29 | XMS_ITS | Encounter Summary ---
Author Organization [facility] [place] [address] Care Team Providers Care Lumber Inspector Name Role Phone Arelis Michele MD Primary Care Provider [phone] Encounter Details Date Type Department Care Team (Late Contact Info) Description 05/11/2019 [place] [phone] Renetta Hartley Social History Tobacco Use Types Packs/Day Years [...] encounter Miscellaneous Notes * Telephone Encounter - Renetta Hartley - 05/11/2019 3:02 PM EDT Lionel asked that I schedule a 1 hr appt with you for Wesly. Wesly is not available in July at all. Do you have anything in May / Jun? 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 documented in this encounter Plan of Treatment Upcoming Encounters Date Type Department Care Team (Late st Contact Info) Description 04/28/2024 12:00 PM EDT [place] [phone] documented as of this encounter Visit Diagnoses Not on filedocumented in this encounter Care Teams Lumber Inspector Relationship Specialty Start Date End Date Arelis Michele MD [address] [place] [address] PCP - General Family Medicine 08/01/18 02/11/24 documented as of this encounter
--- OUTSIDE RECORDS SUMMARY | 2024-04-06 02:29 | XMS_ITS | Encounter Summary ---
Author Organization Formerly [facility] [place] [address] Care Team Providers Care Package Sealer Name Role Phone Arelis Michele MD Primary Care Provider [phone] Reason for Visit * Auth/Cert Specialty Diagnoses / Procedures Referred By Contmabel t Referred To Contact Diagnoses CAD (coronary artery disease) Abnormal stress test [R94.39]/Chest discomfort [R07.89] Post-Op monitoring Procedures PRG CATH PLMT LEFT HEART CATH & ARTS W/INJ & ANGIO IMG S&I CARDIAC CATHETERIZATION CORONARY ANGIOGRAPHY; W LHC,POSSIBLE PCI Referral ID Status Reason Start Date Expiration Date Visits Re quested Visits Authorized [id number] 1 1 Encounter Details Date Type Department Care Team (Late st Contact Info) Description 03/20/2019 9:30 AM EDT - 03/21/2019 9:40 AM EDT Hospital Encounter [place] [address] Sean Manzano II, MD [facility] [place] [address] Abnormal stress test; Chest discomfort Discharge Disposition: Home Social History Tobacco Use [...] Sign Reading Time Taken Comments Blood Pressure 148/74 03/21/2019 7:51 AM EDT Pulse 75 03/21/2019 7:51 AM EDT Temperature 36.6 ??C (97.9 ??F) 03/21/2019 7:51 AM ED T Respiratory Rate 16 03/21/2019 3:11 AM EDT Oxygen Saturation 97% 03/21/2019 7:51 AM EDT Inhaled Oxygen Concentration - - Weight 94.3 kg (207 lb 14.3 oz) 019 10:59 AM EDT Height - - Body Mass Index 29 01/08/2019 10:27 AM EDT documented in this encounter Discharge Summaries * Holland Cerrato PA - 03/20/2019 1:50 PM EDT Images from the original note were not included. Discharge Summary Patient Name: Leeanne Ybarra Patient Age: 68 y.o. Language: Australian Race: White Ethnicity: Not nor Admit date: [...] eye ??? Osteopenia ?? Osteopenia, DXA at [facility] in 06/2007. ?? Right wrist fracture (1962); [...] regional WMA's) who presented to his primary price clerk Dr. Sommers with chronic stable angina in [...] appointments: -During 8am-5pm Saturday through Saturday call [phone] to speak with a nurse in the cardiology clinic -All other times call [phone] and ask to speak to the senior underwriting assistant pharmacy consultant. MEDICATIONS - you need to be on [...] Primary care provider: Cardiology: Arelis Michele MD [phone] Follow up as planned or as needed. Dr. Sommers Expect a call next week to schedule 4-6 week follow up appointment General Instructions None Discharge References/Attachments None DONAVAN Fonseca Interventional Cardiology 03/21/19 8:00 AM //Isael Bedoya MD Interventional Underground Bolting Machine Operator documented in this encounter Discharge Instructions * Patient Instructions* Isael Bedoya S - 03/20/2019 1:43 PM EDT Discharge Instructions following cardiac catheterization Cardiology Instructions Call your doctor if you experience: Chest pain, dyspnea, pain or swelling in legs occurs. If you have non-emergent questions between now and the time of your follow up appointments: -During 8am-5pm Saturday through Saturday call [phone] to speak with a nurse in the cardiology clinic -All other times call [phone] and ask to speak to the senior underwriting assistant pharmacy consultant. MEDICATIONS - you need to be on [...] Primary care provider: Cardiology: Arelis Michele MD [phone] Follow up as planned or as needed. [...] when to call , pt instructed to pick up operator prescriptions at preferred pharmacy, all questions answered. [...] place c/d/i. Groin site soft to palpation. child monitor applied. 03/20/19 1521 Adult Vital Signs Temp 36.5 ??C (97.7 ??F) Temp src Oral Heart Rate 68 Heart Rate Source Left BP (!) 134/92 BP Method Automatic Patient Position Lying Resp 20 SpO2 99 % Oxygen Therapy O2 Device RA documented in this encounter H&P Notes * Sean Manzano Emily II - 03/20/2019 1:12 PM EDT Interventional Cardiology Post-PCI H&P Reason for Admission: s/p PCI History: 68 y/o man w hemidiaphragmatic paralysis, htn, hld, RA and mild ischemic CM (LVEF 41% with LAD regional WMA's) who presented to his primary price clerk Dr. 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 Osteopenia ?? Osteopenia, DXA at [facility] in 06/2007. ?? Right wrist fracture (1962); [...] file Gets together: Not on file Attends moravian service: Not on file Active member of [...] Review Outcome: Ongoing (Interventions Implemented as Appropriate) 03/20/19200103/21/19421 Plan of Care Review Progress -- progress [...] Handling Outcome: Ongoing (Interventions Implemented as Appropriate) 03/20/19200103/21/19421 Daily Care Interventions Self-Care Promotion -- independence [...] Manzano II - 03/20/2019 1:06 PM EDT [facility] Operative Note LEEANNE YBARRA March 20, 2019 [id number] Teacher Advisor - Preliminary Findings Procedures: coronary angiography left [...] 12:00 PM EDT [place] [id number] documented as of this encounter Procedures Procedure Name Priority Date/Time Associated Diagnosis Comments RADIOGRAPHER MAMMOGRAPHER SCAN 03/23/2019 12:00 AM EDT EKG 12-LEAD [...] in this encounter Results * SCAN DOC: RADIOGRAPHER MAMMOGRAPHER (03/23/2019 12:00 AM EDT) Anatomical Region Laterality [...] (Bezet) 443 ms MUSE SYSTEM Calculated P [place] 28 degrees MUSE SYSTEM Calculated R [place] 19 degrees MUSE SYSTEM Calculated T [place] 22 degrees MUSE SYSTEM INTERPRETATION Normal sinus [...] 3:16 AM EDT) Neutrophil % 69.9 % [facility] Neutrophil Absolute 6.15(H) 1.70 - 6.10 x10(3)/mc L [facility] Lymph % 16.4 % [facility] Lymphocytes Abs 1.4 0.9 - 3.2 x10(3)/mc L [facility] Monocyte % 9.3 % [facility] Monocyte Abs 0.8 0.3 - 0.9 x10(3)/mc L [facility] Eos % 3.6 % [facility] Eosinophils Abs 0.3 0.0 - 0.4 x10(3)/mc L [facility] Basophil % 0.5 % [facility] Baso Absolute 0.0 0.0 - 0.1 x10(3)/mc L [facility] Immature Gran % 0.30 % [facility] Comment: Immature granulocytes(IG's)percentage and absolute count will include metamyelocytes, myelocytes, and promyelocytes. Blood smears from CBCs yielding IG's will be scanned manually for concordance. If this scan disagrees with the automated IG or if promyelocytes are noted, a manual differential will be performed. Immature Gran Absolute 0.03 0.00 - 0.04 x10(3)/mc L [facility] Blood specimen (specimen) 03/21/2019 3:16 AM EDT 03/21/2019 3:23 AM EDT Narrative Resulting Agency Comment Spec In Lab Isael Bedoya MD HEMATOLOGY ORDERABLE S [facility] [place] [address] * Hemogram (03/21/2019 3:16 AM EDT) White Blood Cell 8.8 4.0 - 9.5 x10(3)/[facility] Red Blood Cell 5.34 4.58 - 5.54 x10(6)/[facility] Hemoglobin 15.9 13.7 - 16.5 gm/dL [facility] Hematocrit 46.8 40.5 - 48.5 % [facility] Mean Cell Volume 87.6 82.9 - 93.1 [facility] Mean Cell Hemoglobin 29.8 27.5 - 32.1 pg [facility] Mean Cell Hemoglobin Concentration 34.0 32.0 - 35.7 gm/dL [facility] Platelet 189 145 - 357 x10(3)/[facility] RDW Standard Deviation 43.5 36.0 - 45.0 [facility] RDW coefficient of variation 13.5 11.4 - 13.8 % [facility] Mean Platelet Volume 9.9 7.6 - 12.9 [facility] NRBC% auto 0.0 % [facility] NRBC Absolute 0.000 0.000 - 0.000 x10(3)/[facility] Blood specimen (specimen) 03/21/2019 3:16 AM EDT 03/21/2019 3:23 AM EDT Narrative Resulting Agency Comment Spec In Lab Isael Bedoya MD HEMATOLOGY ORDERABLE S [facility] [place] [address] * Lipid Panel (03/21/2019 3:16 AM EDT) Cholesterol, Total 128 mg/dL [facility] Comment: Lower Risk: <200 mg/dL Average Risk: 200-239 mg/dL Higher Risk: >gw=808 mg/dL Triglyceride 100 mg/dL [facility] Comment: Average Risk/Lower Risk: <150 mg/dL Borderline High Risk: 150-199 mg/dL High Risk: 200-499 mg/dL Very High Risk: >ts=631 mg/dL HDL Cholesterol 51 mg/dL [facility] Comment: Males: ?? Higher Risk: <40 mg/dL Females: ?? HIgher Risk: <50 mg/dL LDL Cholesterol 57 mg/dL [facility] Comment: Lowest Risk: <100 mg/dL Lower Risk: 100-129 mg/dL Borderline High Risk: 130-159 mg/dL High Risk: 160-189 mg/dL Very High Risk: >ef=050 mg/dL Cholesterol/HDL Ratio 2.5 ratio [facility] Lipid Interpretation See Note [facility] Comment: Lipid management should be guided by a patient? s ASCVD risk, goals and preferences. ACC/AHA Guidelines recommend high intensity statin if clinical ASCVD or LDL greater than or equal to 190 mg/dL. [email or web address] Adults aged 40-75 with LDL 70-189 mg/dL should have their 10 year ASCVD risk estimated with the ACC/AHA ASCVD risk lean facilitator http://tools.acc.org/FXSOU-Duzc-Msgpcaxrc/ Statin should be discussed if risk greater [...] Sean Manzano II, MD CHEMISTRY ORDER DARIAN [facility] [place] [address] * BMP w/fasting Glucose (03/21/2019 3:16 AM EDT) Glucose Fasting 81 65 - 99 mg/dL [facility] Comment: ?Fasting* Glucose Interpretive Criteria [...] of Diabetes Mellitus, Position Statement from the [place] [employer]. ??Diabetes Care, Volume 33, Supplement 1, Sep 2009 Blood Urea Nitrogen 14 10 - 20 mg/dL [facility] Creatinine 0.97 0.80 - 1.50 mg/dL [facility] Sodium 139 135 - 145 mmol/L [facility] Potassium 4.0 3.5 - 5.0 mmol/L [facility] Comment: Please note: ??Patients with WBC >100,000 may have falsely elevated Potassium levels. ??For accurate Potassium quantification in these patients send serum separator tube (gold top) for subsequent determinations. ??Contact the Clinical Chemistry Laboratory if there are any questions. Chloride 104 98 - 107 mmol/L [facility] Carbon Dioxide 24 22 - 31 mmol/L [facility] Anion Gap 11 5 - 15 mmol/L [facility] Calcium 8.8 8.5 - 10.5 mg/dL [facility] Est Glomerular Filtration Rate 79 >=60 mL/min/1. 73 m?? [facility] Comment: The eGFR was calculated using the CKD-EPI equation. As with all creatinine based estimates of kidney function, eGFR values calculated with the CKD-EPI equation are not accurate in patients with acute kidney failure, extremes of body mass or the acutely ill. [email or web address] eGFR 91 >=60 mL/min/1. 73 m?? [facility] Comment: The eGFR was calculated using the CKD-EPI equation. As with all creatinine based estimates of kidney function, eGFR values calculated with the CKD-EPI equation are not accurate in patients with acute kidney failure, extremes of body mass or the acutely ill. [email or web address] Blood specimen (specimen) 03/21/2019 3:16 AM EDT 03/21/2019 3:23 AM EDT Narrative Resulting Agency Comment Spec In Lab Sean Manzano II, MD CHEMISTRY ORDER DARIAN [facility] [place] [address] * EKG 12 Lead (03/20/2019 2:04 PM EDT) Ventricular rate 59 BPM MUSE SYSTEM Atrial Rate 59 BPM MUSE SYSTEM P-R Interval 236 ms MUSE SYSTEM QRS Duration 110 ms MUSE SYSTEM Q-T Interval 418 ms MUSE SYSTEM QTC Calculated (Bezet) 413 ms MUSE SYSTEM Calculated P [place] 48 degrees MUSE SYSTEM Calculated R [place] 2 degrees MUSE SYSTEM Calculated T [place] 27 degrees MUSE SYSTEM INTERPRETATION Sinus bradycardia with 1st degree A-V block with Fusion complexes Otherwise normal ECG When compared with ECG of 20-MAR-2019 10:26, Fusion complexes are now Present CT interval has increased Confirmed by MD Posey Megan ([id number]) on 03/20/2019 6:27:11 PM MUSE SYSTEM 03/20/2019 2:04 PM EDT 03/20/2019 6:27 PM EDT Sean Manzano II, MD ECG ORDERABLES Performing Organization Address City/[facility] Co de Phone Number MUSE SYSTEM * EKG 12 Lead (03/20/2019 10:26 AM EDT) Ventricular rate 64 BPM MUSE SYSTEM Atrial Rate 64 BPM MUSE SYSTEM P-R Interval 206 ms MUSE SYSTEM QRS Duration 116 ms MUSE SYSTEM Q-T Interval 402 ms MUSE SYSTEM QTC Calculated (Bezet) 414 ms MUSE SYSTEM Calculated P [place] 19 degrees MUSE SYSTEM Calculated R [place] 8 degrees MUSE SYSTEM Calculated T [place] 28 degrees MUSE SYSTEM INTERPRETATION Normal sinus rhythm Normal ECG When compared with ECG of 16-FEB-2019 10:55, No significant change was found Confirmed by MD Taty, Mely ([id number]) on 03/20/2019 6:27:09 PM MUSE SYSTEM 03/20/2019 10:2 6 AM EDT 03/20/2019 6:27 PM EDT Syed Garcia MD ECG ORDERABLES Performing Organization Address [facility] Co de Phone Number MUSE SYSTEM * Differential, Automated (03/20/2019 9:47 AM EDT) Neutrophil % 55.1 % [facility] Neutrophil Absolute 3.84 1.70 - 6.10 x10(3)/[facility] Lymph % 31.3 % [facility] Lymphocytes Abs 2.2 0.9 - 3.2 x10(3)/[facility] Monocyte % 8.7 % [facility] Monocyte Abs 0.6 0.3 - 0.9 x10(3)/[facility] Eos % 4.4 % [facility] Eosinophils Abs 0.3 0.0 - 0.4 x10(3)/[facility] Basophil % 0.4 % [facility] Baso Absolute 0.0 0.0 - 0.1 x10(3)/[facility] Immature Gran % 0.10 % [facility] Comment: Immature granulocytes(IG's)percentage and absolute count will include metamyelocytes, myelocytes, and promyelocytes. Blood smears from CBCs yielding IG's will be scanned manually for concordance. If this scan disagrees with the automated IG or if promyelocytes are noted, a manual differential will be performed. Immature Gran Absolute 0.01 0.00 - 0.04 x10(3)/[facility] Blood specimen (specimen) 03/20/2019 9:47 AM EDT 03/20/2019 10:01 AM EDT Narrative Resulting Agency Comment Spec In Lab Holland GO HEMATOLOGY ORDERABLE S [facility] [place] [address] * (ABNORMAL) Hemogram (03/20/2019 9:47 AM EDT) White Blood Cell 7.0 4.0 - 9.5 x10(3)/[facility] Red Blood Cell 5.66(H) 4.58 - 5.54 x10(6)/[facility] Hemoglobin 16.7(H) 13.7 - 16.5 gm/dL [facility] Hematocrit 52.1(H) 40.5 - 48.5 % [facility] Mean Cell Volume 92.0 82.9 - 93.1 fL [facility] Mean Cell Hemoglobin 29.5 27.5 - 32.1 pg [facility] Mean Cell Hemoglobin Concentration 32.1 32.0 - 35.7 gm/dL [facility] Platelet 225 145 - 357 x10(3)/[facility] RDW Standard Deviation 46.8(H) 36.0 - 45.0 [facility] RDW coefficient of variation 13.8 11.4 - 13.8 % [facility] Mean Platelet Volume 9.8 7.6 - 12.9 [facility] NRBC% auto 0.0 % [facility] NRBC Absolute 0.000 0.000 - 0.000 x10(3)/mc L [facility] Blood specimen (specimen) 03/20/2019 9:47 AM EDT 03/20/2019 10:01 AM EDT Narrative Resulting Agency Comment Spec In Lab Holland OG HEMATOLOGY ORDERABLE S [facility] [place] [address] * (ABNORMAL) BMP w/fasting Glucose (03/20/2019 9:47 AM EDT) Glucose Fasting 104(H) 65 - 99 mg/dL [facility] Comment: ?Fasting* Glucose Interpretive Criteria [...] of Diabetes Mellitus, Position Statement from the [place] [employer]. ??Diabetes Care, Volume 33, Supplement 1, Sep 2009 Blood Urea Nitrogen 19 10 - 20 mg/dL [facility] Creatinine 1.10 0.80 - 1.50 mg/dL [facility] Sodium 141 135 - 145 mmol/L [facility] Potassium 4.4 3.5 - 5.0 mmol/L [facility] Comment: Please note: ??Patients with WBC >100,000 may have falsely elevated Potassium levels. ??For accurate Potassium quantification in these patients send serum separator tube (gold top) for subsequent determinations. ??Contact the Clinical Chemistry Laboratory if there are any questions. Chloride 104 98 - 107 mmol/L [facility] Carbon Dioxide 27 22 - 31 mmol/L [facility] Anion Gap 10 5 - 15 mmol/L [facility] Calcium 9.5 8.5 - 10.5 mg/dL [facility] Est Glomerular Filtration Rate 68 >=60 mL/min/1. 73 m?? [facility] Comment: The eGFR was calculated using the CKD-EPI equation. As with all creatinine based estimates of kidney function, eGFR values calculated with the CKD-EPI equation are not accurate in patients with acute kidney failure, extremes of body mass or the acutely ill. [email or web address] eGFR 78 >=60 mL/min/1. 73 m?? [facility] Comment: The eGFR was calculated using the CKD-EPI equation. As with all creatinine based estimates of kidney function, eGFR values calculated with the CKD-EPI equation are not accurate in patients with acute kidney failure, extremes of body mass or the acutely ill. [email or web address] Blood specimen (specimen) 03/20/2019 9:47 AM EDT 03/20/2019 10:01 AM EDT Narrative Resulting Agency Comment Spec In Lab Syed Garcia MD CHEMISTRY ORDERABLES [facility] [place] [address] documented in this encounter Visit Diagnoses Diagnosis Abnormal stress test Other nonspecific abnormal cardiovascular system function study Chest discomfort Other chest pain CAD (coronary artery disease) Coronary atherosclerosis of unspecified type of vessel, lower [place] or graft documented in this encounter Admitting Diagnoses Diagnosis CAD (coronary artery disease) Coronary atherosclerosis of unspecified type of vessel, lower [place]oux or graft documented in this encounter Administered [...] Given 03/21/2019 8:13 AM EDT 75 mg levothyroxine (SYNTHROID) tablet 50 mcg 50 mcg, Oral, DAILY, First dose on Sat03/21/19 at 0600, Until Discontinued, Routine Given 03/21/2019 6:34 AM EDT 50 mcg losartan (COZAAR) tablet 25 mg 25 mg, Oral, DAILY, First dose on Sat03/21/19 at 0900, Until Discontinued, Routine Given 03/21/2019 8:13 AM EDT 25 mg sodium chloride 0.9% infusion 150 mL/hr, Intravenous, [...] Given 03/21/2019 8:14 AM EDT 150 mg documented in this encounter Active and Recently Administered Medications Times are shown in EDT. Scheduled Medication Order 03/19/2019 03/20/2019 03/21/2019 aspirin EC tablet 81 mg 81 mg, Oral, DAILY, First dose on Sat03/20/19 at 1700, Until Discontinued, Routine 1727 (Given - Provider: Miranda Quintanilla RN) 0813 (Given - Provider: Miranda Quintanilla RN) atorvastatin (LIPITOR) tablet 40 mg 40 mg, Oral, EVERY EVENING, First dose on Sat03/20/19 at 1700, Until Discontinued 1727 (Given - Provider: Miranda Quintanilla RN) budesonide-formoterol (SYMBICORT) 80-4.5 mcg/actuation inhaler 2 Inhalation 2 Inhalation , Inhalation, 2 TIMES DAILY, First dose on Sat03/20/19 at 2100, Until Discontinued, Routine 2100 (Not Given - Provider: Breann Flynn RN - Reason: Order parameters not met) 0900 (Not Given - Provider: Miranda Quintanilla RN - Reason: Medication not available) buPROPion (WELLBUTRIN SR or ZYBAN) SR tablet 150 mg 150 mg, Oral, DAILY, First dose on Sat03/20/19 at 1700, Until Discontinued, DO NOT CRUSH OR OPEN, Routine 1728 (Given - Provider: Miranda Quintanilla RN) 0813 (Given - Provider: Miranda Quintanilla RN) carvedilol (COREG) tablet 12.5 mg 12.5 mg, Oral, 2 TIMES DAILY WITH MEALS, First dose on Sat03/20/19 at 1700, Until Discontinued, Routine 1727 (Given - Provider: Miranda Quintanilla RN) 0813 (Given - Provider: Miranda Quintanilla RN) clopidogrel (PLAVIX) tablet 75 mg 75 mg, Oral, DAILY, First dose on Sat03/21/19 at 0900, Until Discontinued, Recovery (Recovery-Hospital Unit), Routine 0813 (Given - Provid er: Miranda Quintanilla RN) fluticasone propionate (FLONASE) 50 mcg/actuation nasal spray 1 spray 1 spray, Each Nare, 2 TIMES DAILY, First dose on Sat03/20/19 at 2100, Until Discontinued, Routine 2100 (Not Given - Provider: Breann Flynn RN - Reason: Order parameters not met) 0900 (Not Given - Provider: Miranda Quintanilla, ASHLEY - Reason: Medication not available) levothyroxine (SYNTHROID) tablet 50 mcg 50 mcg, Oral, DAILY, First dose on 03/21/19 at 0600, Until Discontinued, Routine 0634 (Given - Provid er: Breann Flynn RN) losartan (COZAAR) tablet 25 mg 25 mg, Oral, DAILY, First dose on 03/21/19 at 0900, Until Discontinued, Routine 0813 (Given - Provid er: Miranda Quintanilla, ASHLEY) methylPREDNISolone (MEDROL) tablet 2 mg 2 mg, Oral, DAILY, First dose on 03/21/19 at 0900, Until Discontinued, Routine 0900 (Not Given - Provider: Miranda Quintanilla [...] Discontinued, DO NOT CRUSH OR OPEN, Routine 0814 (Given - Provid er: Miranda Quintanilla, ASHLEY) Continuous Medication Order 03/19/2019 03/20/2019 03/21/2019 sodium chloride 0.9% infusion 150 mL/hr, Intravenous, CONTINUOUS, Starting on Sat03/20/19 at 1345, Until Sat03/20/19 at 1644, Recovery (Recovery-Hospital Unit) 1345 (New Bag - Provider: Miranda Quintanilla, RN) PRN Medication Order 03/19/2019 03/20/2019 03/21/2019 acetaminophen (TYLENOL) tablet 1,000 mg 1,000 mg, Oral, EVERY 6 HOURS PRN, Starting on Sat03/20/19 at 1535, Until Sat03/21/19 at 1140, Pain, Maximum dose of acetaminophen is 4000 mg from all sources in 24 hours., Routine benzonatate (TESSALON) capsule 200 mg 200 mg, Oral, 3 TIMES DAILY PRN, Starting on Sat03/20/19 at 1535, Until Sat03/21/19 at 1140, Cough, DO NOT CRUSH OR [...] II) documented in this encounter Care Teams Package Sealer Relationship Specialty Start Date End Date Arelis Michele MD [address] [place] [address] PCP - General Family Medicine 08/01/18 02/11/24 documented as of this encounter
--- OUTSIDE RECORDS SUMMARY | 2024-04-06 02:29 | XMS_ITS | Encounter Summary ---
Author Organization [facility] [place] [address] Care Team Providers Care Managed Care Analyst Name Role Phone Arelis Michele MD Primary Care Provider [phone] Encounter Details Date Type Department Care Team (Late st Contact Info) Description 03/18/2019 [place] [id number] Yakelin Pope Social History Tobacco Use Types Packs/Day Years [...] encounter Miscellaneous Notes * Telephone Encounter - Yakelin Pope - 03/18/2019 11:19 AM EDT Pt calls looking for path results from February 16 colo procedure w/ Dr. Villarreal. Please prepare letter for pt rather than call as pt would like to show it to his sister once recived. documented in this encounter Plan of Treatment Upcoming Encounters Date Type Department Care Team (Late st Contact Info) Description 04/28/2024 12:00 PM EDT [place]ment [place] [id number] documented as of this encounter Visit Diagnoses Not on filedocumented in this encounter Care Teams Managed Care Analyst Relationship Specialty Start Date End Date Arelis Michele MD [address] [place] [address] PCP - General Family Medicine 08/01/18 02/11/24 documented as of this encounter
--- OUTSIDE RECORDS SUMMARY | 2024-04-06 02:29 | XMS_ITS | Encounter Summary ---
Author Organization Formerly [facility] [place] [address] Care Team Providers Care Quality Assurance Analyst Name Role Phone Arelis Michele MD Primary Care Provider [phone] Reason for Referral * Diagnostic Test (Emergency) - Closed Specialty Diagnoses / Procedures Referred By Azam corbett Referred To Contact Radiology Diagnoses Edema of right lower extremity Procedures CT Knee wo Contrast Right (Generic) Dianne Norton APRN [facility] [place] [address] [place] [address] [facility] [place] [address] Referral ID Status Reason Start Date Expiration Date V isits Requested Visits Authorized [id number] Closed Specialty Service Requested 07/02/2019 07/01/2020 1 1 Encounter Details Date Type Department Care Team (Late st Contact Info) Description 07/02/2019 11:00 AM EDT Office [place] [address] Dianne Norton APRN [facility] [place] [address] Edema of right lower extremity; Rheumatoid arthritis with positive rheumatoid factor, involving unspecified site; Joint swelling Social History Tobacco Use Types Packs/Day Years [...] Sign Reading Time Taken Comments Blood Pressure 138/60 07/02/2019 11:16 AM EDT Pulse 94 07/02/2019 11:16 AM EDT Temperature 36.5 ??C (97.7 ??F) 07/02/2019 11:16 AM E DT Respiratory Rate - - Oxygen Saturation 100% 07/02/2019 11:16 AM EDT Inhaled Oxygen Concentration - - Weight 94.3 kg (208 lb) 07/02/2019 11:16 AM EDT Height 180.3 cm (5' 11) 07/02/2019 11:16 AM EDT Body Mass Index 29.01 07/02/2019 11:16 AM EDT documented in this encounter Patient Instructions * Patient Instructions* Dianne Norton APRN - 07/02/2019 11:00 AM EDT Right now, go to 3L for labwork At 5:20pm, you will go to 3T for your CT scan I will be in touch regarding lab results and next steps Flu shot today documented in this encounter Progress Notes * Dianne Norton APRN - 07/02/2019 11:00 AM EDT Established Patient Follow Up - Rheumatology Clinic Wesly Ybarra is a 68 y.o.male seen for ongoing evaluation and management of rheumatoid arthritis. Last RHEU OV: 10/2018. INTERVAL HISTORY: Last rituxan 01/2018, and mtx for over [...] which wasunremarkable. He went to ED at [facility]. No tick bites, but does work [...] not know if he has had a enamorado's cyst Tested for lyme a long time ago. He would like to go to [facility] again, he can't infusion the rituximab treatments. [...] taking 1000mg APAP. No NSAID. Going to [place] for 14 days on Saturday He is [...] what diagnosis is. Treated by Dr. Sommers ([facility]). History of depression - current management by PCP, on effexor and wellbutrin.. (-) tires easily with diversional actvities. (-) eye redness, eye pain, oral ulcers, + dry mouth, painful or difficult swallowing, diarrhea or skin rash. (+) easy bruising. Denies other changes in medical, surgical or social history. PHYSICAL EXAMINATION: Vitals: 07/02/19 1116 BP: 138/60 Pulse: 94 Temp: 36.5 ??C (97.7 ??F) TempSrc: Oral SpO2: 100% Weight: 94.3 kg (208 lb) Height: 180.3 cm (5' 11) Physical Exam: General: Well appearing male, NAD HEENT: Mucous membranes are moist, no oral mucosal ulcerations, missing most teeth, poor dentition Neck: ROM limited in all planes, no lymphadenopathy Cardiovascular: RRR, no m/r/g Lungs: CTA b/l no w/r/r Back: Nontender over the spine Neuro: Alert and oriented x3 Skin: rosacea, pink macules on face; see knee for description of ecchymosis Nails: no nail pitting Extremities: Shoulders: Reduced ROM in all planes L>R, warmth, anterior ttp on the left Elbows:FROM Wrists: FROM, no swelling, non-tender Hands: 2nd and 3rd mcp thickening bl but no synovitis or ttp, mild +mcp squeeze bl, near complete claw and full fist; no pip or dip swelling or ttp Hips: FROM, no tenderness Knees: Crepitus and FROM, nontender on the L; the right distal thigh thru the knee and foot is edematous, there is popliteal ttp but otherwise nontender; there is bruising at the medial aspect of theknee and just proximal of the popliteal space at the posterior thigh, flexion is reduced, ROM is nontender Ankles: FROM, non-tender, no effusion; edema on the right Feet: no MTP compression tenderness, edema on the right ASSESSMENT & Plan: Rheumatoid arthritis -Off immunomodulating therapy for over 1.5yrs, with possible dz activity at shoulders. Beyond shoulders no strong signs of disease activity on exam. Is reporting prolonged AM stiffness in hands. -Labs today to monitor dz activity and in anticipation of initiating immunomodulatory tx -Reviewed that we will likely proceed with an alternative therapy since he experienced recurrent infections on Enbrel, though this was the most effective for him; will see if there is assistance available to afford rituximab. Alternatively could consider restarting and maximizing mtx dose, switching to sc, orencia, xeljanz -Reviewed need to hold immunomodulatory tx in setting infection, surgery (dental procedure in Sep 2018) Ruptured enamorado's cyst v. tendon rupture at right knee -CT today lobsterman steroid use -continue with medrol 2mg daily -continue with vit d supplementation, avoiding ca supplementation d/t kidney stones -continue with weightbearing activity Health Maintenance -Flu iz today RTC pending results documented in this encounter Plan of Treatment Upcoming Encounters Date Type Department Care Team (Late st Contact Info) Description 04/28/2024 12:00 PM EDT Appointment [place] [address] documented as of this encounter Procedures Procedure Name Priority Date/Time Associated Diagnosis Comments HC C-REACTIVE PROTEIN Routine 07/02/2019 12:54 PM EDT Rheumatoid arthritis with positive rheumatoid factor, involving unspecified site HC VENIPUNCTURE Routine 07/02/2019 12:54 PM EDT Joint swelling HEMOGRAM Routine 07/02/2019 12:54 PM EDT Rheumatoid arthritis with positive rheumatoid factor, involving unspecified site DIFFERENTIAL, AUTOMATED Routine 07/02/2019 12:54 PM EDT Rheumatoid arthritis with positive rheumatoid factor, involving unspecified site HC ESR-SEDIMENTATION RATE, BLOOD Routine 07/02/2019 12:54 PM EDT Rheumatoid arthritis with positive rheumatoid factor, involving unspecified site HC CBC,PLT & AUTO DIFF Routine 9 12:54 PM EDT Rheumatoid arthritis with positive rheumatoid factor, involving unspecified site COMPREHENSIVE METABOLIC PANEL Routine 07/02/2019 12:54 PM EDT Rheumatoid arthritis with positive rheumatoid factor, involving unspecified site documented in this encounter Results * CT Knee wo Contrast Right (Generic) (07/02/2019 6:13 PM EDT) Anatomical Region Laterality Modality Knee Right Computed Tomogra phy Impressions 07/02/2019 6:28 PM EDT Findings are most suggestive of plantaris tendon rupture and/or intramuscular hematoma within the caps right medial gastrocnemius muscle. MRI is recommended in further characterization. Thank you for letting us participate in the care of this patient. For questions regarding this report, please contact the number below. ? Narrative 07/02/2019 6:28 PM EDT EXAMINATION: CT KNEE WO CONTRAST RIGHT (GENERIC) CLINICAL HISTORY: Edema from right distal thigh and thru foot. ??Pt ruptured basker's cyst versus tendon tear? There is bruising just above popliteal space at distal posterior thigh TECHNIQUE: Noncontrast CT right lower extremity is performed from the distal femur through the distal tibia. Coronal and sagittal multiplanar reformats are created at the CT console and reviewed. Intravenous contrast was given. COMPARISON: None relevant FINDINGS: There is abnormality in the posterior compartment. There is a 15 x 3.6 x 2.3 cm ovoid, heterogeneously hyperdense collection inseparable from the medial gastrocnemius muscle. There is fluid insinuating between the soleus and gastrocnemius. Semimembranosus medial gastrocnemius bursa is normal. No evidence of Enamorado's cyst. Circumferential edema about the entire right calf. Osseous structures are intact. Dense atherosclerosis of the popliteal artery, and tibioperoneal trunk and branches. Procedure Note Ever Pulido DO - 07/02/2019 EXAMINATION: CT KNEE WO CONTRAST RIGHT (GENERIC) CLINICAL HISTORY: Edema from right distal thigh and thru foot. Ptruptured basker's cyst versus tendon tear? There is bruising just above popliteal space at distal posterior thigh TECHNIQUE: Noncontrast CT right lower extremity is performed from the distal femurthrough the distal tibia. Coronal and sagittal multiplanar reformats are createdat the CT console and reviewed. Intravenous contrast was given. COMPARISON: None relevant FINDINGS: There is abnormality in the posterior compartment. There is a 15 x 3.6 x2.3 cm ovoid, heterogeneously hyperdense collection inseparable from the medial gastrocnemius muscle. There is fluid insinuating between the soleus and gastrocnemius. Semimembranosus medial gastrocnemius bursa is normal. No evidence ofBaker's cyst. Circumferential edema about the entire right calf. Osseous structuresare intact. Dense atherosclerosis of the popliteal artery, and tibioperoneal trunkand branches. IMPRESSION Findings are most suggestive of plantaris tendon rupture and/orintramuscular hematoma within the caps right medial gastrocnemius muscle. MRI is recommended in further characterization. Thank you for letting us participate in the care of this patient. Forquestions regarding this report, please contact the number below. Dianne Norton B[facility]CH [facility]EW[facility] IMG CT ORDERABLES * Differential, Automated (07/02/2019 12:54 PM EDT) Neutrophil % 66.2 % [facility] Neutrophil Absolute 5.87 1.70 - 6.10 x10(3)/mcL [facility] Lymph % 22.5 % [facility] Lymphocytes Abs 2.0 0.9 - 3.2 x10(3)/[facility] Monocyte % 8.5 % [facility] Monocyte Abs 0.8 0.3 - 0.9 x10(3)/[facility] Eos % 2.4 % [facility] Eosinophils Abs 0.2 0.0 - 0.4 x10(3)/[facility] Basophil % 0.3 % [facility] Baso Absolute 0.0 0.0 - 0.1 x10(3)/[facility] Immature Gran % 0.10 % [facility] Comment: Immature granulocytes(IG's)percentage and absolute count will include metamyelocytes, myelocytes, and promyelocytes. Blood smears from CBCs yielding IG's will be scanned manually for concordance. If this scan disagrees with the automated IG or if promyelocytes are noted, a manual differential will be performed. Immature Gran Absolute 0.01 0.00 - 0.04 x10(3)/[facility] Blood specimen (specimen) 07/02/2019 12:54 PM EDT 07/02/2019 1:12 PM EDT Narrative Resulting Agency Comment Spec In Lab Dianne Norton [facility]EW[facility] HEMATOLOGY ORDERABLE S [facility] [place] [address] * (ABNORMAL) Hemogram (07/02/2019 12:54 PM EDT) White Blood Cell 8.9 4.0 - 9.5 x10(3)/[facility] Red Blood Cell 4.82 4.58 - 5.54 x10(6)/[facility] Hemoglobin 14.4 13.7 - 16.5 gm/dL [facility] Hematocrit 44.0 40.5 - 48.5 % [facility] Mean Cell Volume 91.3 82.9 - 93.1 fL [facility] Mean Cell Hemoglobin 29.9 27.5 - 32.1 pg [facility] Mean Cell Hemoglobin Concentration 32.7 32.0 - 35.7 gm/dL [facility] Platelet 226 145 - 357 x10(3)/mc L [facility] RDW Standard Deviation 47.0(H) 36.0 - 45.0 fL [facility] RDW coefficient of variation 13.8 11.4 - 13.8 % [facility] Mean Platelet Volume 9.8 7.6 - 12.9 fL [facility] NRBC% auto 0.0 % [facility] NRBC Absolute 0.000 0.000 - 0.000 x10(3)/mc L [facility] Blood specimen (specimen) 07/02/2019 12:54 PM EDT 07/02/2019 1:12 PM EDT Narrative Resulting Agency Comment Spec In Lab Dianne Norton BENCH JEWELER HEMATOLOGY ORDERABLE S Performing Organization Address [facility]/ZIP Co de Phone Number [facility] [place] [address] * Lyme IgG & IgM Antibody (07/02/2019 12:54 PM EDT) Lyme Antibody Neg Neg [facility] Blood specimen (specimen) 07/02/2019 12:54 PM EDT 07/03/2019 8:19 AM EDT Narrative Resulting Agency Comment Spec In Lab Dianne Norton BENCH JEWELER IMMUNOLOGY ORDERABLE S Performing Organization Address City/[facility]/ZIP Co de Phone Number [facility] [place] [address] * (ABNORMAL) CRP, acute inflammation (07/02/2019 12:54 PM EDT) C-Reactive Protein 34.1(H) <=4.9 mg/L [facility] Blood specimen (specimen) 07/02/2019 12:54 PM EDT 07/02/2019 1:17 PM EDT Narrative Resulting Agency Comment Spec In Lab Diannelucas Norton ITA CHEMISTRY ORDERABLES Performing Organization Address City/[facility]/ZIP Co de Phone Number [facility] [place] [address] * Sedimentation rate (07/02/2019 12:54 PM EDT) Sedimentation Rate Automated 6 0 - 15 mm/hr [facility] Blood specimen (specimen) 07/02/2019 12:54 PM EDT 07/02/2019 1:12 PM EDT Narrative Resulting Agency Comment Spec In Lab Dianne Norton APRN HEMATOLOGY ORDERABLE S Performing Organization Address [facility] Co de Phone Number [facility] [place] [address] * Comprehensive metabolic panel (non-fasting) (07/02/2019 12:54 PM EDT) Glucose 103 65 - 199 mg/dL [facility] Comment:Diabetes: >=200 mg/d L plus symptoms Blood Urea Nitrogen 16 10 - 20 mg/dL [facility] Creatinine 0.99 0.80 - 1.50 mg/dL [facility] Sodium 138 135 - 145 mmol/L [facility] Potassium 4.2 3.5 - 5.0 mmol/L [facility] Comment: Please note: ??Patients with WBC >100,000 may have falsely elevated Potassium levels. ??For accurate Potassium quantification in these patients send serum separator tube (gold top) for subsequent determinations. ??Contact the Clinical Chemistry Laboratory if there are any questions. Chloride 104 98 - 107 mmol/L [facility] Carbon Dioxide 27 22 - 31 mmol/L [facility] Anion Gap 7 5 - 15 mmol/L [facility] Calcium 8.9 8.5 - 10.5 mg/dL [facility] Protein, Total 6.5 6.1 - 8.0 gm/dL [facility] Albumin 4.0 3.2 - 5.2 gm/dL [facility] Aspartate Aminotransferase 18 0 - 39 unit/L [facility] Alanine Aminotransferase 19 0 - 55 unit/L [facility] Alkaline Phosphatase 108 40 - 130 unit/L [facility] Bilirubin, Total 0.7 0.2 - 1.3 mg/dL [facility] Est Glomerular Filtration Rate 77 >=60 mL/min/1. 73 m?? [facility] Comment: The eGFR was calculated using the CKD-EPI equation. As with all creatinine based estimates of kidney function, eGFR values calculated with the CKD-EPI equation are not accurate in patients with acute kidney failure, extremes of body mass or the acutely ill. [email or web address] eGFR 89 >=60 mL/min/1. 73 m?? [facility] Comment: The eGFR was calculated using the CKD-EPI equation. As with all creatinine based estimates of kidney function, eGFR values calculated with the CKD-EPI equation are not accurate in patients with acute kidney failure, extremes of body mass or the acutely ill. [email or web address] Blood specimen (specimen) 07/02/2019 12:54 PM EDT 07/02/2019 1:17 PM EDT Narrative Resulting Agency Comment Spec In Lab Dianne Norton APRN CHEMISTRY ORDERABLES [facility] [place] [address] documented in this encounter Visit Diagnoses Diagnosis Edema of right lower extremity Edema Rheumatoid arthritis with positive rheumatoid factor, involving unspecified site Joint swelling Effusion of joint, site unspecified Edema of right lower extremity Edema documented in this encounter Care Teams Quality Assurance Analyst Relationship Specialty Start Date End Date Arelis Michele MD [address] [place] [address] PCP - General Family Medicine 08/01/18 02/11/24 documented as of this encounter
--- OUTSIDE RECORDS SUMMARY | 2024-04-06 02:29 | XMS_ITS | Encounter Summary ---
Author Organization Formerly [facility] [place] [address] Care Team Providers Care Veterinary Bacteriologist Name Role Phone Arelis Michele MD Primary Care Provider [phone] Encounter Details Date Type Department Care Team (Late st Contact Info) Description 03/12/2019 Orders Only Cardiology at [address] [id number] Holland Cerrato PA [facility] [place] [address] Abnormal stress test; Chest discomfort Social History Tobacco Use Types Packs/Day Years [...] 12:00 PM EDT Appointment [place] [id number] documented as of this encounter Procedures Procedure Name Priority Date/Time Associated Diagnosis Comments CARDIAC CATHETERIZATION Routine 03/20/20 19 1:02 PM EDT Abnormal stress test Chest discomfort documented in this encounter Results * CARDIAC CATHETERIZATION (03/20/2019 1:02 PM EDT) Anatomical Region Laterality Modality Other Narrative 03/20/2019 1:09 PM EDT ?[facility] ? Cardiac Catheterization/Intervention Report ? Patient Name: LEEANNE AGEE. ? Procedure Date: 03/20/2019 ? A #: [id number] ? Primary Physician: Sean Manzano ? Case #: [id number] ? File Name: [id number] ? Catheterization Order Number: [id number] ? [facility] [facility] ? Final Report [place], [place] ? Patient Name: ? LEEANNE AGEE ?ID#: ?[id number] ? : ?1950 ? Procedure Date: ? March 20, 2019 ?Case #: ? [id number] ? Room: ? 1 ? Case Physician: ? Sean Manzano M.D. ?Start: ?11:12 ?Fellow: ? Isael Bedoya M.D. ? Admission: ??03/20/2019 ? Discharge: ??03/21/2019 ? Referring ? Arelis Michele M.D. ? Physicians: ?Uriah Sommers M.D. ? Procedures: ?* Coronary Angiography ?* Left Heart Catheterization ?* Right Heart Catheterization ?* Oximetry ?* Coronary Stent Insertion ?* Vascular Closure Device Deployment ?* Access Site Angiography ? History ?LEEANNE AGEE is a 68 year old man. He has hypertension and a family ?history of coronary artery disease. The patient's smoking status is ?Never. He has hypercholesterolemia. The patient has a history of CHF. The ?CHF is NYHA Functional Class III and is classified as Systolic. The ?patient also has a history of chronic obstructive pulmonary disease. ?Prior to the initiation of this procedure, the patient was designated as ?ASA Class IV. The [facility] clinical frailty scale is 4: Vulnerable. ? Diagnostic Tests: ?Prior Coronary Angiography: ? Prior coronary angiography was performed on 01/14/2014 and showed no ? CAD. LV ejection fraction within 6 months is 50%. ?Electrocardiography: ? EKG was assessed by ECG. EKG was Normal. ?Stress or Imaging Studies: ? An echo stress test was performed on 05/21/2018 and was Positive ? with Low results. ?Medications Prior to Procedure: ? ASA, Beta Barbie and Statin. ? Indications for Diagnostic Cath: ?The priority of the diagnostic procedure was Elective. 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 Chest pain symptom assessment was: ?Typical Angina. ? Technique: ?A 6 SLFr sheath was inserted in the right radial artery utilizing the ?Seldinger technique. A 7Fr sheath was inserted in the right median ?antecubital vein utilizing the Seldinger technique. A 6Fr sheath was ?inserted in the right femoral artery utilizing the Seldinger technique. ?The left coronary artery was injected utilizing a 6Fr JL 3.5 catheter. A ?6Fr JR 4 catheter was used to inject the right coronary artery. Left ?ventricular pressure was performed with a 6Fr JR 4 catheter. Right heart ?catheterization was performed utilizing a 7Fr SWAN-MATILDE catheter. ?Coronary stent insertion was performed and the equipment utilized will be ?described in the intervention summary section. 8,000 units of heparin ?were administered. A total of 200cc of Omnipaque were opened, 160cc of ?Omnipaque were administered and 40cc of Omnipaque were wasted. Radiation: ?Fluoro time was 17.7 minutes, dose area product was 133,991 mGYcm2 and ?air kerma was 1,867 mGY. See the case log for additional details. ?The patient received the following medications prior to and during the ?procedure: ? Unfractionated Heparin and Clopidogrel. ? Hemodynamics: ?Right Heart Pressures ? Hemodynamics: ? Syst Diast ? EDP ?a ?v ? m ?RA ? 5 ?4 ? 3 ?RV 25 ?9 ?PA 25 ?11 ?15 ?PCW ?12 ? 9 ? 8 ? Hemodynamic Profile: ?Profile 1 ? Profile 2 ?CO ? 7.83 ?7.87 ?CI ? 3.66 ?3.68 ?TSR ?848 ? 844 ?SVR ?817 ? 813 ?TPR ?153 ? 152 ?PVR ?72 ?71 ?Technique ?Estimated Honey ?Thermodilution ?Left Heart Pressures ? Resting: ? Syst Diast ? EDP ?a ?v ? m ?Ao 109 ?? 63 ?83 ?LV 122 ? 16 ?Comments: ??LV pullback: ??LV 125, EDP 15. ??Ao 123/55 (83). ? Oximetry: ?Location ? %Sat ?Location ?%Sat ?Superior Vena Cava ? 74.0 ?Inferior Vena Cava ?85.0 ?Mid Right Atrium ? 77.0 ?Right Ventricle ? 75.0 ?Main Pulmonary Artery ??78.0 ?Descending Aorta ?94.0 ? Coronary Angiography: ?Dominance: Right ?Left Main ? There was mild diffuse (<=25% stenosis) disease of the mid 2 segment ? of the left main artery. ?Left Anterior Descending ? There was mild diffuse (<=25% stenosis) disease of the distal ? segment of the left anterior descending artery (LAD). ??The mid 1 ? segment of the LAD had a single discrete 80% stenosis. ?Left Circumflex ? There was mild diffuse (<=25% stenosis) disease of the proximal ? segment of the left circumflex artery (LCX). ?Right Coronary Artery ? There was mild diffuse (<=25% stenosis) disease of the entire vessel ? segment of the right coronary artery (RCA). ? Indication for Intervention: ?Coronary intervention was indicated for treatment of stable angina. The ?priority for the procedure was Elective. The NCDR indication for the ?procedure was Stable angina. Syntax Score was Low. Right Heart ?catheterization was initiated for Left ventricular failure, unspecified ?(I50.1). ? Intervention Summary: ?Left Anterior Descending Artery ? Mid 1 80% ? Stent insertion was performed on the 80% stenosis in the mid 1 ? segment of the LAD. This was a de yosef lesion. According to ? the ACC/AHA classification system, this lesion was a type A ? low risk lesion. Primary prevention of restenosis was the ? indication for stent insertion. This was the culprit lesion. A ? guidewire was placed across this lesion. Vessel flow pre ? intervention was WINTER 3. Lesion length was 9mm. ? Stent insertion was accomplished through a 6 Fr. EBU 4.0 ? guide. ??The lesion was predilated with a 2.50mm EUPHORA 12 MM ? balloon with a maximum inflation pressure of 10 atmospheres. ? A premounted 3.00 x 15 mm Resolute BIRD (JALEEL) was deployed ? with a maximum inflation pressure of 10 atmospheres. ? Following stent deployment, the lesion was dilated using a ? 3.00mm NC EUPHORA 12 MM balloon with a maximum inflation ? pressure of 15 atmospheres. ? The final outcome was defined as successful. A coronary ? arteriolar vasodilator was administered as part of the ? intervention on this lesion. There was no residual stenosis ? following this intervention. The final WINTER flow was 3. ? Vascular Access: ?Vascular Access Angiogram: ? A selective angiogram at the right femoral artery revealed no ? significant obstructive disease. ?Vascular Access Management: ? Manual Compression of the right median antecubital vein access site ? was performed. ? Mechanical Compression of the right radial artery access site was ? performed. ? A 6 Fr Perclose was deployed at the right femoral artery access ? site. This device was successful. ? Dual Antiplatelet (DAPT) Recommendations: ?Drug eluting stent (JALEEL) inserted for stable ischemic heart disease ?(SIHD). ?P2Y12 Loading dose Clopidogrel 600 mg PO given in lab. ?Recommend continuing clopidogrel 75 mg PO daily for 6 months. ??Recommend ?continuing aspirin 81 mg unless intolerant. ? Conclusions: ?* One vessel coronary artery disease (LAD) ?* Successful stent insertion of the mid 1 LAD lesion ?* Recommend continuing clopidogrel 75 mg PO daily for 6 months (see DAPT ?Recommendations above for more information.) ? Complications/Events: ?The patient had no complications during these procedures. ?The attending physician was present for the entire procedure. ?Dr. Sean Manzano M.D. was present during the moderate sedation ?intraservice time as documented by the sedation nurse. ??Case time = 01:27. ?Dr. Sean Manzano M.D. performed the coronary angiography, left heart ?catheterization, right heart catheterization, oximetry, stent ?insertion-coronary, access site angiography and vascular closure device. ? Sean Manzano M.D. ? Electronically Signed by: Sean Manzano M.D. ? Report Finalized: 03/20/2019 ??13:05 ? Report Last Ammended: 08/22/2019 ??13:43 ? Procedure Note Sean Manzano II, MD - 08/22/2019 [facility] Cardiac Catheterization/Intervention Report Patient Name: LEEANNE GAEE Procedure Date: 03/20/2019 A #: [id number] Primary Physician: Sean Manzano Case #: File Name: [id number] Catheterization Order Number: [id number] [facility] FinalReport [place], [place] Patient Name: LEEANNE AGEE ID#:[id number] :1950 Procedure Date: March 20, 2019 Case #: Room: 1 Case Physician: Sean Manzano M.D. Start: 11:12 Fellow: Isael Bdeoya M.D. Admission:03/20/2019 Discharge:03/21/2019 Referring Arelis Michele M.D. Physicians: Uriah Sommers M.D. Procedures: * Coronary Angiography * Left Heart Catheterization * Right Heart Catheterization * Oximetry * Coronary Stent Insertion * Vascular Closure Device Deployment * Access Site Angiography History LEEANNE AGEE is a 68 year old man. He has hypertension and afamily history of coronary artery disease. The patient's smoking status is Never. He has hypercholesterolemia. The patient has a history ofCHF. The CHF is NYHA Functional Class III and is classified as Systolic. The patient also has a history of chronic obstructive pulmonary disease. Prior to the initiation of this procedure, the patient wasdesignated as ASA Class IV. The [facility] clinical frailty scale is 4: Vulnerable. Diagnostic Tests: Prior Coronary Angiography: Prior coronary angiography was performed on 01/14/2014 andshowed no CAD. LV ejection fraction within 6 months is 50%. Electrocardiography: EKG was assessed by ECG. EKG was Normal. Stress or Imaging Studies: An echo stress test was performed on 05/21/2018 and wasPositive with Low results. Medications Prior to Procedure: ASA, Beta Barbie and Statin. Indications for Diagnostic Cath: The priority of the diagnostic procedure was Elective. 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 Chest pain symptom assessment was: Typical Angina. Technique: A 6 SLFr sheath was inserted in the right radial artery utilizingthe Seldinger technique. A 7Fr sheath was inserted in the right median antecubital vein utilizing the Seldinger technique. A 6Fr sheath was inserted in the right femoral artery utilizing the Seldingertechnique. The left coronary artery was injected utilizing a 6Fr JL 3.5catheter. A 6Fr JR 4 catheter was used to inject the right coronary artery. Left ventricular pressure was performed with a 6Fr JR 4 catheter. Rightheart catheterization was performed utilizing a 7Fr SWAN-MATILDE catheter. Coronary stent insertion was performed and the equipment utilizedwill be described in the intervention summary section. 8,000 units ofheparin were administered. A total of 200cc of Omnipaque were opened, 160ccof Omnipaque were administered and 40cc of Omnipaque were wasted.Radiation: Fluoro time was 17.7 minutes, dose area product was 133,991 [id number] air kerma was 1,867 mGY. See the case log for additional details. The patient received the following medications prior to and duringthe procedure: Unfractionated Heparin and Clopidogrel. Hemodynamics: Right Heart Pressures Hemodynamics: Syst Diast EDP a v m RA 5 4 3 RV 25 9 PA 25 11 15 PCW 12 9 8 Hemodynamic Profile: Profile 1 Profile 2 CO 7.83 7.87 CI 3.66 3.68 TSR 848 844 SVR 817 813 TPR 153 152 PVR 72 71 Technique Estimated Honey Thermodilution Left Heart Pressures Resting: Syst Diast EDP a v m Ao 109 63 83 LV 122 16 Comments: LV pullback: LV 125, EDP 15. Ao 123/55 (83). Oximetry: Location %Sat Location %Sat Superior Vena Cava 74.0 Inferior Vena Cava 85.0 Mid Right Atrium 77.0 Right Ventricle 75.0 Main Pulmonary Artery 78.0 Descending Aorta 94.0 Coronary Angiography: Dominance: Right Left Main There was mild diffuse (<=25% stenosis) disease of the mid 2segment of the left main artery. Left Anterior Descending There was mild diffuse (<=25% stenosis) disease of the distal segment of the left anterior descending artery (LAD). The mid1 segment of the LAD had a single discrete 80% stenosis. Left Circumflex There was mild diffuse (<=25% stenosis) disease of the proximal segment of the left circumflex artery (LCX). Right Coronary Artery There was mild diffuse (<=25% stenosis) disease of the entirevessel segment of the right coronary artery (RCA). Indication for Intervention: Coronary intervention was indicated for treatment of stable angina.The priority for the procedure was Elective. The NCDR indication for the procedure was Stable angina. Syntax Score was Low. Right Heart catheterization was initiated for Left ventricular failure,unspecified (I50.1). Intervention Summary: Left Anterior Descending Artery Mid 1 80% Stent insertion was performed on the 80% stenosis in themid 1 segment of the LAD. This was a de yosef lesion. Accordingto the ACC/AHA classification system, this lesion was a typeA low risk lesion. Primary prevention of restenosis was the indication for stent insertion. This was the culpritlesion. A guidewire was placed across this lesion. Vessel flow pre intervention was WINTER 3. Lesion length was 9mm. Stent insertion was accomplished through a 6 Fr. EBU 4.0 guide. The lesion was predilated with a 2.50mm [id number] MM balloon with a maximum inflation pressure of 10atmospheres. A premounted 3.00 x 15 mm Resolute BIRD (JALEEL) wasdeployed with a maximum inflation pressure of 10 atmospheres. Following stent deployment, the lesion was dilated usinga 3.00mm NC EUPHORA 12 MM balloon with a maximum inflation pressure of 15 atmospheres. The final outcome was defined as successful. A coronary arteriolar vasodilator was administered as part of the intervention on this lesion. There was no residualstenosis following this intervention. The final WINTER flow was 3. Vascular Access: Vascular Access Angiogram: A selective angiogram at the right femoral artery revealed no significant obstructive disease. Vascular Access Management: Manual Compression of the right median antecubital vein accesssite was performed. Mechanical Compression of the right radial artery access sitewas performed. A 6 Fr Perclose was deployed at the right femoral artery access site. This device was successful. Dual Antiplatelet (DAPT) Recommendations: Drug eluting stent (JALEEL) inserted for stable ischemic heart disease (SIHD). P2Y12 Loading dose Clopidogrel 600 mg PO given in lab. Recommend continuing clopidogrel 75 mg PO daily for 6 months.Recommend continuing aspirin 81 mg unless intolerant. Conclusions: * One vessel coronary artery disease (LAD) * Successful stent insertion of the mid 1 LAD lesion * Recommend continuing clopidogrel 75 mg PO daily for 6 months (seeDAPT Recommendations above for more information.) Complications/Events: The patient had no complications during these procedures. The attending physician was present for the entire procedure. Dr. Sean Manzano M.D. was present during the moderate sedation intraservice time as documented by the sedation nurse. Case time =01:27. Dr. Sean Manzano M.D. performed the coronary angiography, leftheart catheterization, right heart catheterization, oximetry, stent insertion-coronary, access site angiography and vascular closuredevice. Sean Manzano M.D. Electronically Signed by: Sean Manzano M.D. Report Finalized: 03/20/2019 13:05 Report Last Ammended: 08/22/2019 13:43 Syed Garcia MD CARDIAC CATH ORDERAB LES documented in this encounter Visit Diagnoses Diagnosis Abnormal stress test Other nonspecific abnormal cardiovascular system function study Chest discomfort Other chest pain Abnormal stress test Other nonspecific abnormal cardiovascular system function study Chest discomfort Other chest pain documented in this encounter Care Teams Veterinary Bacteriologist Relationship Specialty Start Date End Date Arelis Michele MD [address] [place] [address] PCP - General Family Medicine 08/01/18 02/11/24 documented as of this encounter
--- OUTSIDE RECORDS SUMMARY | 2024-04-06 02:29 | XMS_ITS | Encounter Summary ---
[place] [address] Care Team Providers Care Literacy Consultant Name Role Phone Arelis Michele MD Primary Care Provider [phone] Encounter Details Date Type Department Care Team (Late st Contact Info) Description 09/30/2019 9:15 AM EST - 09/30/2019 10:00 AM EST Surgery [place] [address] Solitario Moody MD [facility] [place] [address] COLONOSCOPY, DIAGNOSTIC (WRVU 3.26) Social History Tobacco Use Types Packs/Day Years [...] Sign Reading Time Taken Comments Blood Pressure 152/75 09/30/2019 8:55 AM EST Pulse 91 09/30/2019 8:55 AM EST Temperature 36.6 ??C (97.9 ??F) 09/30/2019 8:55 AM ES T Respiratory Rate 20 09/30/2019 8:55 AM EST Oxygen Saturation 96% 09/30/2019 8:55 AM EST Inhaled Oxygen Concentration - - Weight 95.3 kg (210 lb) 09/30/2019 8:55 AM EST Height 177.8 cm (5' 10) 09/30/2019 8:55 AM EST Body Mass Index 30.13 09/30/2019 8:55 AM EST documented in this encounter Discharge Instructions * Attachments The following attachments cannot be sent through Care Everywhere. * Colonoscopy: Post-op ([place]) documented in this encounter Medications at Time [...] mouth daily. 90 tablet 3 09/15/2019 06/05/2022 budesonide-formoterol (SYMBICORT) 80-4.5 mcg/actuation HFA Aerosol InhalerIndications:SOB [...] 11/02/2010 06/05/2022 documented as of this encounter H&P Notes * Solitario Moody MD - 09/30/2019 9:26 AM EST Procedure: Colonoscopy Indication: surveillance History of Present Illness: Wesly Ybarra is a 68 y.o. man here for surveillance of large polyp Patient Active Problem List Diagnosis Code ??? [...] disease) I25.10 ??? Right knee sprain S83.91XA Medications: Reviewed in EDH Allergies Allergen Reactions ??? Calcium kidney stones ??? Levothyroxine ??? Lisinopril Dry cough Social History/Family History: Reviewed in EDH. No changes Exam: Most Recent Vitals: 09/30/19 0855 BP: 152/75 Pulse: 91 Resp: 20 Temp: 36.6 ??C (97.9 ??F) SpO2: 96% Axox3, nad Anicteric, MMM CTAB RRR, no m/r/g abd soft nt nd +bs Assessment and Plan: Proceed with Colonoscopy: ASA Grade: ASA 3 - Patient with moderate systemic disease with functional limitations Mallampati score:II (soft palate, uvula, fauces visible) Sedation plan: MAC Risks and benefits of the procedure were discussed with the patient. Consent has been signed. Solitario Moody MD documented in this encounter Miscellaneous Notes * Op Note - Solitario Moody MD - 09/30/2019 10:18 AM EST [facility] [place] Patient Name: Wesly Ybarra : [id number] MR#: [id number] Case Date: 09/30/2019 Surgeon: Surgeon(s) and Role: * Solitario Moody MD - Primary Preoperative diagnosis: Recommend repeat colonoscopy in 3-6 months to confirm complete polyp resection depending on pathology. Postoperative diagnosis: * No post-op diagnosis entered * Procedure(s): COLONOSCOPY, DIAGNOSTIC COLONOSCOPY, POLYPECTOMY, REMOVAL LESION BY SNARE (WRVU 4.67) Please see Provation report for details. documented in this encounter Plan of Treatment Upcoming Encounters Date Type Department Care Team (Late st Contact Info) Description 04/28/2024 12:00 PM EDT Appointment [place] [address] documented as of this encounter Procedures Procedure Name Priority Date/Time Associated Diagnosis Comments SPECIMEN TO PATHOLOGY Routine 09/30/2019 10:14 AM EST SPECIMEN TO PATHOLOGY Routine 09/30/2019 10:14 AM EST SPECIMEN TO PATHOLOGY Routine 09/30/2019 10:14 AM EST SURGICAL PATHOLOGY REPORT Routine 09/30/2019 9:57 AM EST Colonoscopy, Remv Lesn, Snare ([id number]) 09/30/2019 9:38 AM EST Recommend repeat colonoscopy in 3-6 months to confirm complete polyp resection depending on pathology. Colonoscopy, Diagnostic ([id number]) 09/30/2019 9:38 AM EST Recommend repeat colonoscopy in 3-6 months to confirm complete polyp resection depending on pathology. COLONOSCOPY Routine 09/30/2019 9:26 AM EST documented in this encounter Results * Specimen to Pathology (09/30/2019 10:14 AM EST) AP Specimen 09/30/2019 10:1 4 AM EST 09/30/2019 10:14 AM EST Narrative [facility] - 09/30/2019 10:14 AM EST Specimen requisition ordered. ??Separate Pathology report to follow Solitario Moody MD PATHOLOGY/CYTOLOGY O NANCY [facility] [place] [address] * Specimen to Pathology (09/30/2019 10:14 AM EST) AP Specimen 09/30/2019 10:1 4 AM EST 09/30/2019 10:14 AM EST Narrative [facility] - 09/30/2019 10:14 AM EST Specimen requisition ordered. ??Separate Pathology report to follow Solitario Moody MD PATHOLOGY/CYTOLOGY O NANCY [facility] [place] [address] * Specimen to Pathology (09/30/2019 10:14 AM EST) AP Specimen 09/30/2019 10:1 4 AM EST 09/30/2019 10:14 AM EST Narrative [facility] - 09/30/2019 10:14 AM EST Specimen requisition ordered. ??Separate Pathology report to follow Solitario Moody MD PATHOLOGY/CYTOLOGY O RDERAJEANINE [facility] [place] [address] * Surgical Pathology Report (09/30/2019 9:57 AM EST) Final Diagnosis [id number] ? Location: 4T; EA10; A The signing pathologist has (i) examined the relevant preparation(s) for the specimen(s) and (ii) rendered or confirmed the diagnosis(es). . ?Surgical Pathology DIAGNOSIS A - Ascending colon, polypectomy: Tubular adenoma. B - Transverse colon, polypectomy: Tubular adenoma. C - Rectosigmoid colon, polypectomy: Benign mucosal prolapse polyp. CR-PX Electronically signed by: ??Biju Adorno MD Verified: ??10/02/2019 ?Pathologist Performed at: ??-[facility] Dept. of Pathology, [place], [place] CLINICAL INFORMATION Specimen Submitted: A - Ascending colon polyp 5mm B - Transverse colon polyp 5mm C - Recto sigmoid colon poylps Clinical History and Diagnosis: 68-year-old male with colon polyps SPECIMEN PROCESSING A - Labeled/Fixative : Ascending colon polyp 5 mm, formalin. Quantity/Size: Single, 0.8 cm. Tissue Description: Soft, dixon-pink and flat polyp. Sections/Process ing: Inked, bisected and entirely submitted in 1 cassette labeled A1. B - Labeled/Fixative : Transverse colon polyp 5 mm, formalin. Quantity/Size: Single, 0.9 cm. Tissue Description: Soft, dixon-red polyp. Sections/Process ing: Inked, bisected and entirely submitted in 1 cassette labeled B1. C - Labeled/Fixative : Rectosigmoid colon polyps, formalin. Quantity/Size: Single, 0.6 cm. Tissue Description: Soft, dixon-pink polyp. Sections/Process ing: Inked, bisected and entirely submitted in 1 cassette labeled C1. ??apb 10/02/2019 10:53 AM EST [facility] GI Biopsy 09/30/2019 9:57 AM EST 09/30/2019 9:57 AM EST GI Biopsy 09/30/2019 9:57 AM EST 09/30/2019 9:57 AM EST GI Biopsy 09/30/2019 9:57 AM EST 09/30/2019 9:57 AM EST Solitario Moody MD PATHOLOGY/CYTOLOGY O RDERABLES [facility] [place] [address] * COLONOSCOPY (09/30/2019 9:26 AM EST) COLONOSCOPY [facility] Endoscopy Procedure Date: 09/30/2019 9:26 AM ? Patient Name: Wesly Ybarra ? N: [id number] ? Date of : 1950 ? Age: 68 ? Order #: [id number] ? Instrument Name: [id number] ? Procedure: ? Colonoscopy Indications: ? High risk colon cancer surveillance: ? Personal history of colonic polyps Providers: ? Solitario Moody, Tara Peter, ? RN, Uriah Smith Referring : ?Arelis [...] EST Arelis Michele MD [facility] Performing Organization Address City/State/[facility] Co de Phone Number [employer] documented in this encounter Visit Diagnoses Not on filedocumented in this encounter Active and Recently Administered Medications Times are shown in EST. Continuous Medication Order 09/28/2019 09/29/2019 09/30/2019 lactated ringers infusion (CANCELED) 100 mL/hr, Intravenous, CONTINUOUS, Starting on Sat09/30/19 at 0915, Until Sat09/30/19 at 1050, Endoscopy (Day of Procedure) 0932 (New Bag - Prov ider: Sarah Johnson CRNA)0944 (Anesthesia Volume Adjustment - Provider: Sarah Johnson CRNA) documented in this encounter Care Teams Literacy Consultant Relationship Specialty Start Date End Date Arelis Michele MD [address] [place] [address] PCP - General Family Medicine 08/01/18 02/11/24 documented as of this encounter
--- OUTSIDE RECORDS SUMMARY | 2024-04-06 02:29 | XMS_ITS | Encounter Summary ---
[place] [address] Care Team Providers Care Hospital Admissions Officer Name Role Phone Arelis Michele MD Primary Care Provider [phone] Encounter Details Date Type Department Care Team (Latest Contact Info) Description 09/30/2019 8:20 AM EST - 09/30/2019 10:57 AM EST Hospital Encounter [place] [address] Solitario Moody MD [facility] [place] [address] Discharge Disposition: Home Social History Tobacco Use [...] Sign Reading Time Taken Comments Blood Pressure 136/79 09/30/2019 10:43 AM EST Pulse 91 09/30/2019 8:55 AM EST Temperature 36.6 ??C (97.9 ??F) 09/30/2019 8:55 AM ES T Respiratory Rate 18 09/30/2019 10:43 AM EST Oxygen Saturation 96% 09/30/2019 10:43 AM EST Inhaled Oxygen Concentration - - Weight 95.3 kg (210 lb) 09/30/2019 8:55 AM EST Height 177.8 cm (5' 10) 09/30/2019 8:55 AM EST Body Mass Index 30.13 09/30/2019 8:55 AM EST documented in this encounter Discharge Instructions * Attachments The following attachments cannot be sent through Care Everywhere. * Colonoscopy: Post-op (Lao) documented in this encounter Medications at Time [...] Moody MD - 09/30/2019 10:18 AM EST [facility] [place] Patient Name: Wesly Ybarra : [id number] MR#: [id number] Case Date: 09/30/2019 Surgeon: Surgeon(s) and Role: [...] 12:00 PM EDT Appointment [place] [address] documented as of this encounter Procedures Procedure Name Priority Date/Time Associated Diagnosis Comments SPECIMEN TO PATHOLOGY Routine 09/30/2019 10:14 AM EST SPECIMEN TO PATHOLOGY Routine 09/30/2019 10:14 AM EST SPECIMEN TO PATHOLOGY Routine 09/30/2019 10:14 AM EST SURGICAL PATHOLOGY REPORT Routine 09/30/2019 9:57 AM EST Colonoscopy, Remv Lesn, Snare ([id number]) 09/30/2019 9:38 AM EST Recommend repeat colonoscopy in 3-6 months to confirm complete polyp resection depending on pathology. Colonoscopy, Diagnostic ([id number]) 09/30/2019 9:38 AM EST Recommend repeat colonoscopy in 3-6 months to confirm complete polyp resection depending on pathology. COLONOSCOPY Routine 09/30/2019 9:26 AM EST documented in this encounter Results * Specimen to Pathology (09/30/2019 10:14 AM EST) AP Specimen 09/30/2019 10:1 4 AM EST 09/30/2019 10:14 AM EST Narrative [facility] - 09/30/2019 10:14 AM EST Specimen requisition ordered. ??Separate Pathology report to follow Solitario Moody MD PATHOLOGY/CYTOLOGY O NANCY [facility] [place] [address] * Specimen to Pathology (09/30/2019 10:14 AM EST) AP Specimen 09/30/2019 10:1 4 AM EST 09/30/2019 10:14 AM EST Narrative [facility] - 09/30/2019 10:14 AM EST Specimen requisition ordered. ??Separate Pathology report to follow Solitario Moody MD PATHOLOGY/CYTOLOGY O NANCY [facility] [place] [address] * Specimen to Pathology (09/30/2019 10:14 AM EST) AP Specimen 09/30/2019 10:1 4 AM EST 09/30/2019 10:14 AM EST Narrative [facility] - 09/30/2019 10:14 AM EST Specimen requisition ordered. ??Separate Pathology report to follow Solitario Moody MD PATHOLOGY/CYTOLOGY O RDERABLES [facility] [place] [address] * Surgical Pathology Report (09/30/2019 9:57 AM EST) Final Diagnosis [id number] ? Location: 4T; EA10; A The signing pathologist has (i) examined the relevant preparation(s) for the specimen(s) and (ii) rendered or confirmed the diagnosis(es). . ?Surgical Pathology DIAGNOSIS A - Ascending colon, polypectomy: Tubular adenoma. B - Transverse colon, polypectomy: Tubular adenoma. C - Rectosigmoid colon, polypectomy: Benign mucosal prolapse polyp. CR-PX Electronically signed by: ??Biju Adorno MD Verified: ??10/02/2019 ?Pathologist Performed at: ??-[facility] Dept. [place]ology, [place], [place] CLINICAL INFORMATION Specimen Submitted: A - [...] labeled C1. ??apb 10/02/2019 10:53 AM EST [facility] GI Biopsy 09/30/2019 9:57 AM EST 09/30/2019 9:57 AM EST GI Biopsy 09/30/2019 9:57 AM EST 09/30/2019 9:57 AM EST GI Biopsy 09/30/2019 9:57 AM EST 09/30/2019 9:57 AM EST Solitario Moody MD PATHOLOGY/CYTOLOGY O RDERAJEANINE [facility] [place] [address] * COLONOSCOPY (09/30/2019 9:26 AM EST) COLONOSCOPY [facility] Endoscopy Procedure Date: 09/30/2019 9:26 AM ? Patient Name: Wesly Ybarra ? N: [id number] ? Date of : 1950 ? Age: 68 ? Order #: [id number] ? Instrument Name: [id number] ? Procedure: ? Colonoscopy Indications: ? High risk colon cancer surveillance: ? Personal history of colonic polyps Providers: ? Solitario Moody, Tara Peter, ? RN, Uriah Gilbert MD: ?Arelis Michele MD Medicines: ? Propofol per [...] Michele MD GENERAL SURGICAL ORD ERABLES [employer] documented in this encounter Visit Diagnoses [...] CRNA) documented in this encounter Care Teams Hospital Admissions Officer Relationship Specialty Start Date End Date Arelis Michele MD [address] [place] [address] PCP - General Family Medicine 08/01/18 02/11/24 documented as of this encounter
--- OUTSIDE RECORDS SUMMARY | 2024-04-06 02:29 | XMS_ITS | Encounter Summary ---
Author Organization [facility] [address] Care Team Providers Care Oxidation Engineer Name Role Phone Arelis Michele MD Primary Care Provider [phone] Reason for Referral * Consultation (Urgent) - Closed Specialty Diagnoses / Procedures Referred By Contac t Referred To Contact Orthopaedics Diagnoses Right leg swelling Injury of right lower extremity, subsequent encounter Right knee pain Dianne Norton APRN [facility] [place] [address] [facility] [place] [facility] [address] [place] [id number] Referral ID Status Reason Start Date Expiration Date V isits Requested Visits Authorized [id number] Closed Consult, Test & Treat 07/22/2019 07/21/2020 1 1 * Diagnostic Test (Routine) - Closed Specialty Diagnoses / Procedures Referred By Contac t Referred To Contact Radiology Diagnoses Right leg swelling Injury of right lower extremity, subsequent encounter Procedures MRI Knee wo Contrast Right (Generic) Dianne Norton APRN [facility] [place] [address] [facility] [place] [address] Referral ID Status Reason Start Date Expiration Date V isits Requested Visits Authorized [id number] Closed Specialty Service Requested 07/22/2019 07/21/2020 1 1 Encounter Details Date Type Department Care Team (Late st Contact Info) Description 07/22/2019 Orders [place] [address] Dianne Norton, ITA [facility] [place] [address] Right leg swelling; Injury of right lower extremity, subsequent encounter Social History Tobacco Use Types Packs/Day Years [...] 12:00 PM EDT [place] [address] Scheduled Referrals Name Type Priority Associated Diagnoses Order Schedule Referral to Orthopaedics Outpatient Referral Routine Right leg swelling Injury of right lower extremity, subsequent encounter Ordered: 07/22/2019 documented as of this encounter Results * MRI Knee wo Contrast Right (Generic) (08/10/2019 2:05 PM EST) Anatomical Region Laterality Modality Knee Right Magnetic Resonan ce Impressions 08/10/2019 5:05 PM EST 1. ??Interval decreased size of the posterior hematoma which tracks superficially along the medial head of the gastrocnemius. The location of this hematoma makes injury to the plantaris unlikely, given that it is superficial to the gastrocnemius and along the medial aspect of the upper calf. The presence of a hematoma superficial to the medial head of the gastrocnemius may be posttraumatic (and should be correlated with any focal or direct trauma to this site), spontaneous (if the patient is coagulopathic or is on medication that would place him at higher risk for spontaneous hemorrhage), or may be related to an underlying hemorrhagic lesion. To be sure, there is no large mass appreciated, but if the patient has a history, especially a ?? history of malignancy with a tendency to have hemorrhagic metastases, this would be a consideration. Recommend continued clinical follow-up to document resolution of this finding. Repeat MR with and without contrast in another 3 months to document resolution and to evaluate for the presence or absence of an underlying mass lesion is recommended. 2. ??Mild feathery edema of the medial head of the gastrocnemius could represent muscle strain or may be reactive edema given the mass effect of the hematoma/collection lying immediately adjacent to it. 3. ??Oblique posterior horn tear of the medial meniscus. 4. ??Small complex popliteal cyst. 5. ??No MR evidence of plantaris injury. I have personally reviewed the image(s) and the resident's interpretation and agree with the findings, Kelly Crzu at 08/10/2019 5:05 PM Thank you for letting us participate in the care of this patient. For questions regarding this report, please contact the number below. ? Electronically signed by: Kelly Cruz [facility] ([phone]), at 08/10/2019 5:05 PM Narrative 08/10/2019 5:05 PM EST EXAMINATION: MRI KNEE WO CONTRAST RIGHT (GENERIC) CLINICAL HISTORY: F/u CT see. Evaluating for plantaris tendon rupture and/or intramuscular hematoma TECHNIQUE: Routine noncontrast MRI of the right knee, extending to the mid tibial shaft. COMPARISON: CT of the right knee dated 07/02/2019 FINDINGS: MEDIAL COMPARTMENT: There is an oblique meniscal tear of the posterior horn involving the superior articular surface (series 7, image 14-16). Superficial partial venous cartilage loss of the central posterior weightbearing surfaces of the medial femoral condyle. LATERAL COMPARTMENT: No meniscal tear. The cartilage and articular surfaces are normal. PATELLOFEMORAL COMPARTMENT: Normal alignment. Incomplete evaluation of the cartilage in the patellofemoral compartment since the [id number] was optimized to evaluate a hematoma in the posterior compartment of the upper calf, rather than to visualized cartilage in the knee. CRUCIATE LIGAMENTS: There is mucoid degeneration of the ACL. The PCL is normal. COLLATERAL LIGAMENTS: The MCL and lateral collateral ligament complex are normal. TENDONS: The visualized plantaris, patellar, popliteus, and pes anserine tendons are not disrupted. The quadriceps tendon is only partially visualized and therefore incompletely evaluated MISCELLANEOUS: Interval decreased size of the T1 and T2 bright fluid collection which tracks superficial to the medial head of the gastrocnemius, away from the expected location of the plantaris muscle and myotendinous junction. The fluid collection measures 13.2 x 2.2 x 0.9 cm, previously 15.4 x 5.4 x 2.9 cm. Small joint knee effusion. Small septated popliteal cyst (Enamorado's cyst) measuring 1.1 x 0.8 cm., With surrounding soft tissue stranding and edema, consistent with leakage. Mild asymmetric feathery edema of the medial head of the gastrocnemius relative to the lateral head (series 10, image 7). Procedure Note Kelly Cruz MD - 08/10/2019 EXAMINATION: MRI KNEE WO CONTRAST RIGHT (GENERIC) CLINICAL HISTORY: F/u CT see. Evaluating for plantaris tendon ruptureand/or intramuscular hematoma TECHNIQUE: Routine noncontrast MRI of the right knee, extending to the mid tibialshaft. COMPARISON: CT of the right knee dated 07/02/2019 FINDINGS: MEDIAL COMPARTMENT: There is an oblique meniscal tear of the posteriorhorn involving the superior articular surface (series 7, image 14-16).Superficial partial venous cartilage loss of the central posterior weightbearingsurfaces of the medial femoral condyle. LATERAL COMPARTMENT: No meniscal tear. The cartilage and articularsurfaces are normal. PATELLOFEMORAL COMPARTMENT: Normal alignment. Incomplete evaluation ofthe cartilage in the patellofemoral compartment since the wpjvs-wz-[id number] was optimized to evaluate a hematoma in the posterior compartment of the uppercalf, rather than to visualized cartilage in the knee. CRUCIATE LIGAMENTS: There is mucoid degeneration of the ACL. The PCL isnormal. COLLATERAL LIGAMENTS: The MCL and lateral collateral ligament complexare normal. TENDONS: The visualized plantaris, patellar, popliteus, and pes anserinetendons are not disrupted. The quadriceps tendon is only partially visualizedand therefore incompletely evaluated MISCELLANEOUS: Interval decreased size of the T1 and T2 bright fluidcollection which tracks superficial to the medial head of the gastrocnemius, awayfrom the expected location of the plantaris muscle and myotendinous junction. Thefluid collection measures 13.2 x 2.2 x 0.9 cm, previously 15.4 x 5.4 x 2.9 cm.Small joint knee effusion. Small septated popliteal cyst (Enamorado's cyst)measuring 1.1 x 0.8 cm., With surrounding soft tissue stranding and edema, consistentwith leakage. Mild asymmetric feathery edema of the medial head of thegastrocnemius relative to the lateral head (series 10, image 7). IMPRESSION 1. Interval decreased size of the posterior hematoma which trackssuperficially along the medial head of the gastrocnemius. The location of this hematomamakes injury to the plantaris unlikely, given that it is superficial to the gastrocnemius and along the medial aspect of the upper calf. The presenceof a hematoma superficial to the medial head of the gastrocnemius may be posttraumatic (and should be correlated with any focal or direct trauma tothis site), spontaneous (if the patient is coagulopathic or is on medicationthat would place him at higher risk for spontaneous hemorrhage), or may berelated to an underlying hemorrhagic lesion. To be sure, there is no large mass appreciated, but if the patient has a history, especially a history of malignancy with a tendency to have hemorrhagic metastases, this would armand consideration. Recommend continued clinical follow-up to documentresolution of this finding. Repeat MR with and without contrast in another 3 months to document resolution and to evaluate for the presence or absence of anunderlying mass lesion is recommended. 2. Mild feathery edema of the medial head of the gastrocnemius couldrepresent muscle strain or may be reactive edema given the mass effect of the hematoma/collection lying immediately adjacent to it. 3. Oblique posterior horn tear of the medial meniscus. 4. Small complex popliteal cyst. 5. No MR evidence of plantaris injury. I have personally reviewed the image(s) and the resident's interpretationand agree with the findings, Kelly Cruz at 08/10/2019 5:05 PM Thank you for letting us participate in the care of this patient. Forquestions regarding this report, please contact the number below. Dianne P Rayrayledy ITA IMG MRI ORDERABLES documented in this encounter Visit Diagnoses Diagnosis Right leg swelling Injury of right lower extremity, subsequent encounter Right leg swelling Injury of right lower extremity, subsequent encounter documented in this encounter Care Teams Oxidation Engineer Relationship Specialty Start Date End Date Arelis Michele MD [address] [place] [address] PCP - General Family Medicine 08/01/18 02/11/24 documented as of this encounter
--- OUTSIDE RECORDS SUMMARY | 2024-04-06 02:29 | XMS_ITS | Encounter Summary ---
Author Organization Formerly [facility] [place] [address] Care Team Providers Care Concert Or Lecture Hall Manager Name Role Phone Arelis Michele MD Primary Care Provider [phone] Encounter Details Date Type Department Care Team (Latest Contact Info) Description 02/16/2019 10:00 AM EDT - 02/16/2019 2:13 PM EDT Hospital Encounter Gastroenterology at [facility] [place] [address] [place] [address] Gastroesophageal reflux disease, esophagitis presence not specified Discharge Disposition: Home Social History Tobacco Use [...] Sign Reading Time Taken Comments Blood Pressure 152/84 02/16/2019 1:40 PM EDT Pulse 98 02/16/2019 10:16 AM EDT Temperature 36.7 ??C (98.1 ??F) 02/16/2019 10:16 AM E DT Respiratory Rate - - Oxygen Saturation 99% 02/16/2019 1:45 PM EDT Inhaled Oxygen Concentration - - Weight 90.7 kg (200 lb) 02/16/2019 10:16 AM EDT Height - - Body Mass Index 27.89 01/08/2019 10:27 AM EDT documented in this encounter Discharge Instructions * Discharge Instructions* Maria Teresa Barrera RN - 02/16/2019 1:29 PM EDT UPPER GI ENDOSCOPY WHAT TO EXPECT AFTER THE PROCEDURE Medications You may have a mild sore throat. Ice chips, popsicles, over the counter throat lozenges or spray may help numb your throat. This procedure should not cause a fever. Call your healthcare provider or seek immediate medical attention if: You have trouble swallowing. You have belly pain. Your stools are black or tarlike or have streaks of blood. You are sick to your stomach or cannot keep fluids down. Watch closely for changes in your health, and be sure to contact your doctor IF Your throat still hurts after a day or two You do not get better as expected. Colonoscopy and polyp removal What to expect after the procedure You may feel a little more gassy or bloated than usual, this is normal. You should expect the return of normal bowel function in the next 2 to 3 days. Because some polyps were removed, you may see a little blood with the next few bowel movements, this should be a small amount ( less than a few tablespoons) and will resolve on it's own. ACTIVITY Because of the sedation that you received Your judgement and reaction time are effected ?? Go home and rest for the remainder for the day. You may resume your normal activities tomorrow ?? Change from one position to the next slowly because you may lose your balance unexpectedly. ?? Be careful on stairs, as you may be unsteady. FOR THE NEXT 24 HRS ?? DO NOT DRIVE OR OPERATE MACHINERY ?? DO NOT DRINK ALCOHOLIC BEVERAGES ?? DO NOT SIGN LEGAL DOCUMENTS ?? If you are a smoker: DO NOT SMOKE WHILE YOU ARE ALONE Diet ?? Start by eating small portions of foods that ordinarily will not upset your stomach, avoid gas producing foods for the next few days. ?? Be gentle with what you choose to start with ?? A soft diet may be helpful for the next 3 days as this may help to keep your stools soft. ?? Drink plenty of fluids ( unless your doctor has told you not to). Medicines Avoid medicines that influence the way your blood clots for the next week. These would include anti-inflammatory medicine, such as ibuprofen( Advil, Motrin) and naproxen ( Aleve). If you need something for discomfort, Tylenol (Acetaminophen) is safe if used as directed. Your Doctor will tell you when to restart your prescribed blood thinners The IV site-- slight tenderness, or redness is normal, you can use warm compresses if you get concerned. If the tenderness +/or redness increases or foul drainage and a red streak occurs, please contact your PCP immediately. When should you call for help? Call 911 anytime you think you may need emergency care. For example If you pass out (loss of consciousness) If you pass maroon or bloody stools If you have severe belly pain Call your healthcare provider or seek immediate medical care if: Your stools are black or tar like Your stools have streaks of blood that is more pronounced with each BM You have belly pain, or your belly is swollen and firm You vomit You have a fever You are very dizzy Watch closely for changes in your health, and be sure to contact your doctor if you have any problems. Your Doctor will let you know when you will need your next colonoscopy. The results of your test and your risk for colorectal cancer will help your doctor decide how often you need to be checked. Saturday-Saturday Same Day Endo [phone]-8p Otherwise contact [phone] and ask to speak to the technology methodology consultant aeronautical engineering teacher Follow up care is a rm part of your treatment and safety. Be sure to make and go to all appointments, and call your doctor if you are having problems. Discharge instructions reviewed with patient who expresses understanding documented in this encounter Medications at Time of Discharge Medication Sig Dispensed Refills Start Date End Date benzonatate (TESSALON) 200 mg Capsule Take 1 [...] Med - OTC mositurizing eye drops 11/02/2010 budesonide-formoterol (SYMBICORT) 80-4.5 mcg/actuation HFA Aerosol InhalerIndications:SOB [...] hours as needed. Use with spacer 12/08/2021 lovastatin (MEVACOR) 10 mg tablet Take 10 mg by mouth nightly. 03/21/2019 temazepam (RESTORIL) 30 mg capsule 30 mg, PO, QHS 11/02/2010 06/05/2022 documented as of this encounter H&P Notes * Sarwat Villarreal MD - 02/16/2019 11:46 AM EDT PROBLEM LIST Patient Active Problem List Diagnosis Code ??? 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 Chronic rhinitis J31.0 HISTORY OF PRESENT ILLNESS Wesly Ybarra is a 68 y.o. 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 MEDICATIONS No current facility-administered medications on file prior to encounter. Current Outpatient Medications on File Prior to Encounter Medication Sig Dispense Refill ??? levothyroxine (SYNTHROID) 50 mcg Tablet Take 1 tablet by mouth daily. ??? losartan (COZAAR) 25 mg Tablet daily. ??? venlafaxine (EFFEXOR-XR) 150 mg Capsule, Sust. Release 24 hr daily. ??? aspirin 81 mg EC tablet Take 81 mg by mouth daily. ??? terazosin (HYTRIN) 1 mg capsule Take 1 mg by mouth nightly. ??? Cholecalciferol, Vitamin D3, (VITAMIN D-3) 2,000 unit Cap Take by mouth daily. ??? lovastatin (MEVACOR) 10 mg tablet Take 10 mg by mouth nightly. ??? acetaminophen (TYLENOL EXTRA STRENGTH) 500 mg tablet Take 1,000 mg by mouth every 6 hours as needed. ??? omeprazole (PRILOSEC) 40 mg capsule Take 40 mg by mouth daily. ??? temazepam (RESTORIL) 30 mg capsule 30 mg, PO, QHS ??? benzonatate (TESSALON) 200 mg Capsule Take 1 capsule by mouth 3 times daily as needed for Cough. 30 capsule 0 ??? nitroGLYcerin (NITROSTAT) 0.4 mg Tablet, Sublingual PLACE ONE TABLET UNDER THE TONGUE EVERY 5 MINUTES FOR UP TO 3 DOSES NEEDED FOR CHEST PAIN. IF CHEST PAIN STILL PERSISTS CONTACT 911 1 ??? albuterol 90 mcg/actuation HFA Aerosol Inhaler Inhale 2 puffs into the lungs Every 6 hours as needed. ??? budesonide-formoterol (SYMBICORT) 80-4.5 mcg/actuation HFA Aerosol Inhaler Inhale 2 puffs into the lungs 2 times daily. 1 Inhaler 0 ??? rituximab (RITUXAN IV) Inject into the vein. ??? buPROPion (WELLBUTRIN SR OR ZYBAN) 150 mg Tablet Sustained Release 12 hr daily. ??? metroNIDAZOLE (METROCREAM) 0.75 % Cream as needed. ??? methylPREDNISolone (MEDROL) 4 mg Tablet Take 0.5 tablets by mouth daily. 45 tablet 0 ??? carvedilol (COREG) 12.5 mg Tablet daily. ??? albuterol (PROVENTIL HFA;VENTOLIN HFA) 90 mcg/actuation inhaler Inhale 2 puffs into the lungs every 4 hours as needed. Use with spacer ??? fluticasone (FLONASE) 50 mcg/actuation nasal spray 1 spray by Each Nare route 2 times daily. 16g 12 ??? MULTIVITAMIN/IRON/FOLIC ACID (DAILY MULTI ORAL) Take 1 tablet by mouth daily. ??? CIS Free Text Med - OTC mositurizing eye drops (Patient taking differently: prn) PHYSICAL EXAM: Blood pressure 146/85, pulse 98, temperature 36.7 ??C (98.1 ??F), temperature source Oral, weight 90.7 kg (200 lb), SpO2 97 %. GEN: Alert, cooperative. Pleasant. In NAD MP II ASA III HEENT: No oropharyngeal lesions. Neck supple. No masses. Thyroid symmetric LUNGS: CTAB CARD: RRR without m/g/r ABD: Non-distended. Active BS. Soft. Benign. No masses. No HSM. No succussion splash. No bruits RECENT LABS No results found for this or any previous visit (from the past 24 hour(s)). ASSESSMENT AND PLAN Wesly Ybarra is a 68 y.o. man who presents for endoscopic evaluation. Risks extensively discussed including bleeding, infection, reaction to anesthesia, perforation, pancreatitis (if applicable),bile duct injury (if applicable), missing a cancer (if applicable) and/or other unforseen complication. Consent signed and patient well informed of the risks of the procedure. documented in this encounter Plan of Treatment Upcoming Encounters Date Type Department Care Team (Late st Contact Info) Description 04/28/2024 12:00 PM EDT [place] [address] documented as of this encounter Procedures Procedure Name Priority Date/Time Associated Diagnosis Comments SPECIMEN TO PATHOLOGY Routine 02/16/2019 1:20 PM EDT SPECIMEN TO PATHOLOGY Routine 02/16/2019 1:20 PM EDT SPECIMEN TO PATHOLOGY Routine 02/16/2019 1:20 PM EDT SPECIMEN TO PATHOLOGY Routine 02/16/2019 1:20 PM EDT SURGICAL PATHOLOGY REPORT Routine 02/16/2019 12:17 PM EDT COLONOSCOPY WITH DIRECTED SUBMUCOSAL INJ (WRVU 3.56) 02/16/2019 12:03 PM EDT screening miralax EGD WITH BIOPSY (WRVU 2.39) 02/16/2019 12:03 PM EDT screening miralax COLONOSCOPY, POLYPECTOMY, REMOVAL LESION BY SNARE (WRVU 4.57) 02/16/2019 12:03 PM EDT screening miralax EGD,WITH DILATION ESOPHAGUS WITH BALLOON,< 30 MM (WRVU 2.67) 02/16/2019 12:03 PM EDT screening miralax COLONOSCOPY Routine 02/16/2019 11:54 AM EDT UPPER GI ENDOSCOPY Routine 02/16/2019 11 :53 AM EDT EKG 12-LEAD STAT 02/16/2019 10:55 AM EDT Gastroesophageal reflux disease, esophagitis presence not specified documented in this encounter Results * Specimen to Pathology (02/16/2019 1:20 PM EDT) AP Specimen 02/16/2019 1:20 PM EDT 02/16/2019 1:20 PM EDT Narrative [facility] - 02/16/2019 1:20 PM EDT Specimen requisition ordered. ??Separate Pathology report to follow Sarwat Villarreal MD PATHOLOGY/CYTOLOGY O RDJOSEFA Performing Organization Address City/[facility]/ZIP Co de Phone Number [facility] [place] [address] * Specimen to Pathology (02/16/2019 1:20 PM EDT) AP Specimen 02/16/2019 1:20 PM EDT 02/16/2019 1:20 PM EDT Narrative [facility] - 02/16/2019 1:20 PM EDT Specimen requisition ordered. ??Separate Pathology report to follow Sarwat Villarreal MD PATHOLOGY/CYTOLOGY O RDERABLES Performing Organization Address City/[facility]/ZIP Co de Phone Number [facility] [place] [address] * Specimen to Pathology (02/16/2019 1:20 PM EDT) AP Specimen 02/16/2019 1:20 PM EDT 02/16/2019 1:20 PM EDT Narrative [facility] - 02/16/2019 1:20 PM EDT Specimen requisition ordered. ??Separate Pathology report to follow Sarwat Villarreal MD PATHOLOGY/CYTOLOGY O RDERAJEANINE [facility] [place] [address] * Specimen to Pathology (02/16/2019 1:20 PM EDT) AP Specimen 02/16/2019 1:20 PM EDT 02/16/2019 1:20 PM EDT Narrative [facility] - 02/16/2019 1:20 PM EDT Specimen requisition ordered. ??Separate Pathology report to follow Sarwat Villarreal MD PATHOLOGY/CYTOLOGY O RDERABLES [facility] [place] [address] * Surgical Pathology Report (02/16/2019 12:17 PM EDT) Final Diagnosis [id number] ? Location: 4T; EA10; A The signing pathologist has (i) examined the relevant preparation(s) for the specimen(s) and (ii) rendered or confirmed the diagnosis(es). . ?Surgical Pathology DIAGNOSIS A - Distal esophagus, biopsy: Esophageal squamous mucosa with mild reactive changes. B - Mid esophagus, biopsy: Esophageal squamous mucosa with focal mild active esophagitis. C - Transverse colon, polypectomy: Fragments of tubular adenoma. Fragments of hyperplastic polyp. 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 CR-PX Electronically signed by: ??Bertha Holt MD Verified: ??02/19/2019 ?Pathologist Performed at: ??-[facility] Dept. of Pathology, [place], [place] CLINICAL INFORMATION Specimen Submitted: A - Distal esoph bx's. r/o EOE B - Mid esoph bx's. r/o EOE C - Trans. colon polyps x 3 D - Lg ascending colon polyp. PME Clinical History and Diagnosis: 68-year-old with dysphagia, colonoscopy screening SPECIMEN PROCESSING A - Labeled/Fixative: Distal esophagus BX R/O EOE, formalin. Quantity/Size: Four, averaging 0.4 cm. Tissue Description: Soft, pink-white tissues. Sections/Processi ng: Submitted en toto ??in 1 cassette labeled A1. B - Labeled/Fixative: Mid esophagus BX R/O EOE, formalin. Quantity/Size: Two, averaging 0.4 cm. Tissue Description: Soft, pink-white tissues. Sections/Processi ng: Submitted en toto ??in 1 cassette labeled B1. C - Labeled/Fixative: Transverse colon polyps x3, formalin. Quantity/Size: Multiple, ranging from 0.3-1.8 cm. Tissue Description: Soft, pink polypoid tissues. Sections/Processi ng: Submitted en toto ??in 2 cassettes labeled C1-C2. D - Labeled/Fixative: Large ascending colon polyp, PME, formalin. Quantity/Size: Multiple, 2.0 x 1.5 x 0.6 cm. Tissue Description: Soft, pink fragmented polyp. Sections/Processi ng: Entirely submitted in 4 cassettes labeled D1-D4. . SPECIMEN PROCESSING ??sns 02/19/2019 11:13 AM EDT [facility] GI Biopsy 02/16/2019 12:1 7 PM EDT 02/16/2019 12:17 PM EDT GI Biopsy 02/16/2019 12:1 7 PM EDT 02/16/2019 12:17 PM EDT GI Biopsy 02/16/2019 12:1 7 PM EDT 02/16/2019 12:17 PM EDT GI Biopsy 02/16/2019 12:1 7 PM EDT 02/16/2019 12:17 PM EDT Sarwat Villarreal MD PATHOLOGY/CYTOLOGY O RDERAJEANINE [facility] [place] [address] * COLONOSCOPY (02/16/2019 11:54 AM EDT) COLONOSCOPY [facility] Procedure Date: 02/16/2019 11:54 AM ? Patient Name: Wesly Ybarra ? Date of : 1950 ? Age: 68 ? Order #: [id number] ? Instrument Name: [id number] ? Procedure: ? Colonoscopy Indications: ? Screening for colorectal malignant ? neoplasm Providers: ? Uriah Self RN, ? Janet Coburn, Rock Cutter Referring MD: ?Arelis M. Berrian, MD Medicines: ? Monitored Anesthesia Care Complications: ? No immediate complications. Procedure: ? Pre-Anesthesia Assessment: ? - Prior to the procedure, a History ? and Physical was performed, and ? patient medications, allergies and ? sensitivities were reviewed. The ? patient's tolerance of previous ? anesthesia was reviewed. ? - The risks and benefits of the ? procedure and the sedation options ? and risks were discussed with the ? patient. All questions were answered ? and informed consent was obtained. ? - Patient identification and proposed ? procedure were verified prior to the ? procedure by the physician, the ? nurse, the osteopathic medicine teacher and the ? ceramics technician. The procedure was ? verified in the pre-procedure area in ? the procedure room. ? - Pre-procedure physical examination ? revealed no contraindications to ? sedation. ? - ASA Grade Assessment: III - A ? patient with severe systemic disease. ? The procedure, indications, benefits, ? risks [...] ? the colonoscope was withdrawn. The ? colonoscopy was technically difficult ? and complex due to significant ? looping. The patient tolerated the ? procedure well. The quality of the ? bowel preparation was evaluated using ? the BBPS (Kelford Bowel Preparation ? Scale) with scores of: Right Colon = ? 2 (minor amount of residual staining, ? small fragments of stool and/or ? opaque liquid, but mucosa seen well), ? Transverse Colon = 2 (minor amount of ? residual staining, small fragments of ? stool and/or opaque liquid, but ? mucosa seen well) and Left Colon = 2 ? (minor amount of residual staining, ? small fragments of stool and/or ? opaque liquid, but mucosa seen well). ? The total BBPS score equals 6. The ? quality of the bowel preparation was ? good. ? Findings: ? The perianal and digital rectal examinations were ? normal. ? A 25 mm polyp was found in the ascending colon. The ? polyp was sessile. Area was successfully injected ? with 15 mL Orise Gel for a lift polypectomy. ? Polypectomy was started using a hot snare (27 mm Hex ? and 13 mm Hex). Polyp resection was incomplete with ? this device, so it was completed with a cold snare. ? Resection and retrieval were complete. Vaporization ? of the polypectomy border to prevent recurrence using ? the snare tip was successful. To prevent bleeding ? after the polypectomy, four hemostatic clips were ? successfully placed (MR conditional). There was no ? bleeding at the end of the procedure. ? Four sessile polyps were found in the transverse ? colon. The polyps were 4 mm in size. These polyps ? were removed with a cold snare. Resection and ? retrieval were complete. ? There was evidence of a prior end-to-end colo-colonic ? anastomosis in the sigmoid colon. This was patent and ? was characterized by healthy appearing mucosa. The ? anastomosis was traversed. ? The exam was otherwise without abnormality on direct ? and retroflexion views. ? Moderate Sedation: ? Not applicable - See Anesthesia documentation Impression: ?- One 25 mm polyp in the ascending ? colon removed via piecemeal EMR. ? Resection and retreival were ? complete. Clips (MR conditional) were ? placed to prevent bleeding. ? - Four 4 mm polyps in the transverse ? colon, removed with a cold snare. ? Resected and retrieved. ? - Patent end-to-end colo-colonic ? anastomosis, characterized by healthy ? appearing mucosa. Recommendation: ?- Discharge patient to home (with ? escort). ? - Resume previous diet. ? - Await pathology results from ? colonoscopy and endoscopy. ? - If endoscopic pathology results ? unremarkable, then recommend barium ? swallow to assess dysphagia ? - Recommend repeat colonoscopy in 3-6 ? months to confirm complete polyp ? resection depending on pathology. ? Attending Participation: ? I personally performed the entire procedure. ? Sarwat Villarreal, 02/16/2019 1:31:28 PM Number of Addenda: 0 Note Initiated On: 02/16/2019 11:54 AM PROVATION 02/16/2019 11:5 4 AM EDT Arelis Michele MD GENERAL SURGICAL ORD ERABLES PROVATION * UPPER GI ENDOSCOPY (02/16/2019 11:53 AM EDT) UPPER GI ENDOSCOPY [facility] Procedure Date: 02/16/2019 11:53 AM ? Patient Name: Wesly Ybarra ? Date of : 1950 ? Age: 68 ? Order #: [id number] ? Instrument Name: [id number] ? Procedure: ? Upper GI endoscopy Indications: ? Dysphagia Providers: ? Uriah Self RN, ? Janet Coburn, Rock Cutter Referring : ?Arelis Michele MD Medicines: ? Monitored Anesthesia Care Complications: ? No immediate complications. Procedure: ? Pre-Anesthesia Assessment: ? - Prior to the procedure, a History ? and Physical was performed, and ? patient medications, allergies and ? sensitivities were reviewed. The ? patient's tolerance of previous ? anesthesia was reviewed. ? - The risks and benefits of the ? procedure and the sedation options ? and risks were discussed with the ? patient. All questions were answered ? and informed consent was obtained. ? - Patient identification and proposed ? procedure were verified prior to the ? procedure by the physician, the ? nurse, the osteopathic medicine teacher and the ? ceramics technician. The procedure was ? verified in the pre-procedure area in ? the procedure room. ? - Pre-procedure physical examination ? revealed no contraindications to ? sedation. ? - ASA Grade Assessment: III - A ? patient with severe systemic disease. ? The procedure, indications, benefits, ? risks and alternatives were explained ? to the patient. Specifically ? discussed were potential ? complications including, but not ? limited to, bleeding, perforation, ? infection, missing a cancer, and ? adverse medication reactions. The ? Endoscope was introduced through the ? mouth, and advanced to the second ? part of duodenum. The patient ? tolerated the procedure well. The ? upper GI endoscopy was accomplished ? without difficulty. The patient ? tolerated the procedure well. ? Findings: ? No endoscopic abnormality was evident in the ? esophagus to explain the patient's complaint of ? dysphagia. It was decided, however, to proceed with ? dilation of the entire esophagus. A TTS dilator was ? passed through the scope. Dilation with an 18-19-20 ? mm balloon dilator was performed to 18 mm at the GE ? junction (42 cm from the incisors). The 18 mm balloon ? was then pulled through the esophagus with no ? resistance. No changes were noted to the esophagus ? after dilation. Biopsies were obtained from the ? proximal and distal esophagus with cold forceps for ? histology of suspected eosinophilic esophagitis. ? A 2 cm hiatal hernia was present. ? The exam of the stomach was otherwise normal. ? The examined duodenum was normal. ? Moderate Sedation: ? Not applicable - See Anesthesia documentation Impression: ?- No endoscopic esophageal ? abnormality to explain patient's ? dysphagia. Esophagus dilated to 18 mm ? with no changes. Biopsies for ? eosinophilic esophagitis obtained. ? - 2 cm hiatal hernia. Recommendation: ?- Await pathology results. ? - Perform a colonoscopy today as ? previously scheduled for colon cancer ? screening. ? Attending Participation: ? I was present and participated during the entire ? procedure, including non-rm portions. ? Sarwat Villarreal, 02/23/2019 8:35:55 AM Number of Addenda: 0 Note Initiated On: 02/16/2019 11:53 AM PROVATION 02/16/2019 11:5 3 AM EDT Arelis Michele MD GENERAL SURGICAL ORD ERABLES PROVATION * EKG 12 Lead (02/16/2019 10:55 AM EDT) Ventricular rate 85 BPM MUSE SYSTEM Atrial Rate 85 BPM MUSE SYSTEM P-R Interval 204 ms MUSE SYSTEM QRS Duration 110 ms MUSE SYSTEM Q-T Interval 374 ms MUSE SYSTEM QTC Calculated (Bezet) 445 ms MUSE SYSTEM Calculated P [place] 48 degrees MUSE SYSTEM Calculated T [place] 28 degrees MUSE SYSTEM INTERPRETATION Normal sinus rhythm Normal ECG When compared with ECG of 02-NOV-2003 13:04, Previous ECG has undetermined rhythm, needs review Confirmed by MD Posey Megan ([id number]) on 02/16/2019 8:31:39 PM MUSE SYSTEM 02/16/2019 10:5 5 AM EDT 02/16/2019 8:31 PM EDT James Bourne MD ECG ORDERABLES MUSE SYSTEM documented in this encounter Visit Diagnoses Diagnosis Gastroesophageal reflux disease, esophagitis presence not specified documented in this encounter Active and Recently Administered Medications Care Teams Concert Or Lecture Hall Manager Relationship Specialty Start Date End Date Arelis Michele MD [address] [place] [address] PCP - General Family Medicine 08/01/18 02/11/24 documented as of this encounter
--- OUTSIDE RECORDS SUMMARY | 2024-04-06 02:29 | XMS_ITS | Encounter Summary ---
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 documented in this encounter Plan of Treatment Upcoming Encounters Date Type Department Care Team (Late st Contact Info) Description 04/28/2024 12:00 PM EDT Appointment [place] [phone] documented as of this encounter Visit Diagnoses Not on filedocumented in this encounter Care Teams Bean Snapper Relationship Specialty Start Date End Date Arelis Michele MD [address] [place] [address] PCP - General Family Medicine 08/01/18 02/11/24 documented as of this encounter
--- OUTSIDE RECORDS SUMMARY | 2024-04-06 02:29 | XMS_ITS | Encounter Summary ---
Author Organization [facility] [place] [address] Care Team Providers Care Hunter Name Role Phone Arelis Michele MD Primary Care Provider [phone] Encounter Details Date Type Department Care Team (Late st Contact Info) Description 02/16/2019 11:00 AM EDT - 02/16/2019 12:00 PM EDT Surgery Gastroenterology at [facility] [place] [address] [place] [address] EGD,WITH DILATION ESOPHAGUS WITH BALLOON,< 30 MM (WRVU 2.67) Social History Tobacco Use Types Packs/Day Years [...] Sign Reading Time Taken Comments Blood Pressure 146/85 02/16/2019 10:16 AM EDT Pulse 98 02/16/2019 10:16 AM EDT Temperature 36.7 ??C (98.1 ??F) 02/16/2019 10:16 AM E DT Respiratory Rate - - Oxygen Saturation 97% 02/16/2019 10:16 AM EDT Inhaled Oxygen Concentration - - [...] to be checked. Saturday-Saturday Same Day Endo [phone] 7a-8p Otherwise contact [phone] and ask to speak to the service loss control consultant personnel officer Follow up care is a rm part [...] 12:00 PM EDT [place] [address] documented as of this encounter Procedures Procedure [...] PM EDT 02/16/2019 1:20 PM EDT Narrative [facility] - 02/16/2019 1:20 PM EDT Specimen requisition ordered. ??Separate Pathology report to follow Sarwat Villarreal MD PATHOLOGY/[place] [address] * Specimen to Pathology (02/16/2019 1:20 PM EDT) AP Specimen 02/16/2019 1:20 PM EDT 02/16/2019 1:20 PM EDT Narrative [facility] - 02/16/2019 1:20 PM EDT Specimen requisition ordered. ??Separate Pathology report to follow Sarwat Villarreal MD PATHOLOGY/[place] [address] * Specimen to Pathology (02/16/2019 1:20 PM EDT) AP Specimen 02/16/2019 1:20 PM EDT 02/16/2019 1:20 PM EDT Narrative [facility] - 02/16/2019 1:20 PM EDT Specimen requisition ordered. ??Separate Pathology report to follow Sarwat Villarreal MD PATHOLOGY/[place] [address] * Specimen to Pathology (02/16/2019 1:20 PM EDT) AP Specimen 02/16/2019 1:20 PM EDT 02/16/2019 1:20 PM EDT Narrative [facility] - 02/16/2019 1:20 PM EDT Specimen requisition ordered. ??Separate Pathology report to follow Sarwat Villarreal MD PATHOLOGY/CYTOLOGY O NANCY [facility] [place] [address] * Surgical Pathology Report (02/16/2019 12:17 PM EDT) Final Diagnosis [id number] ? Location: 4T; EA10; A The signing [...] high grade dysplasia. CR-PX Electronically signed by: ??Jonathon CASTILLO, Bertha Verified: ??02/19/2019 ?Pathologist Performed at: ??-[facility] [place] Dept. of Pathology, [place], [place] CLINICAL INFORMATION Specimen Submitted: A - [...] SPECIMEN PROCESSING ??sns 02/19/2019 11:13 AM EDT [facility] GI Biopsy 02/16/2019 12:1 7 PM EDT 02/16/2019 12:17 PM EDT GI Biopsy 02/16/2019 12:1 7 PM EDT 02/16/2019 12:17 PM EDT GI Biopsy 02/16/2019 12:1 7 PM EDT 02/16/2019 12:17 PM EDT GI Biopsy 02/16/2019 12:1 7 PM EDT 02/16/2019 12:17 PM EDT Sarwat Villarreal MD PATHOLOGY/CYTOLOGY O RDERABLES [facility] [place] [address] * COLONOSCOPY (02/16/2019 11:54 AM EDT) COLONOSCOPY [facility] Endoscopy Procedure Date: 02/16/2019 11:54 AM ? Patient Name: Wesly Ybarra ? Date of : 1950 ? Age: 68 ? Order #: [id number] ? Instrument Name: [id number] ? Procedure: ? Colonoscopy Indications: ? Screening for colorectal malignant ? neoplasm Providers: ? Uriah Self RN, ? Janet Coburn, Claims Service Adjustor Referring : ?Arelis Michele MD Medicines: ? [...] by the physician, the ? nurse, the chief bank examiner and the ? line service technician. The procedure was ? verified in [...] preparation was evaluated using ? the BBPS (tuQuejaSuma Bowel Preparation ? Scale) with scores of: [...] personally performed the entire procedure. ? Sarwat Cherelle, 02/16/2019 1:31:28 PM Number of Addenda: 0 Note Initiated On: 02/16/2019 11:54 AM PROVATION 02/16/2019 11:5 4 AM EDT Arelis Michele MD GENERAL SURGICAL ORD ERABLES PROVATION * UPPER GI ENDOSCOPY (02/16/2019 11:53 AM EDT) UPPER GI ENDOSCOPY [facility] Endoscopy Procedure Date: 02/16/2019 11:53 AM ? Patient Name: Wesly Ybarra ? Date of : 1950 ? Age: 68 ? Order #: [id number] ? Instrument Name: [id number] ? Procedure: ? Upper GI endoscopy Indications: ? Dysphagia Providers: ? Uriah Self, ASHLEY, ? Janet Coburn, Claims Service Adjustor Referring : ?Arelis Michele MD Medicines: ? [...] by the physician, the ? nurse, the chief bank examiner and the ? line service technician. The procedure was ? verified in [...] (Bezet) 445 ms MUSE SYSTEM Calculated P [place] 48 degrees MUSE SYSTEM Calculated T [place] 28 degrees MUSE SYSTEM INTERPRETATION Normal sinus rhythm Normal ECG When compared with ECG of 02-NOV-2003 13:04, Previous ECG has undetermined rhythm, needs review Confirmed by MD Taty, Mely ([id number]) on 02/16/2019 8:31:39 PM MUSE SYSTEM 02/16/2019 10:5 5 AM EDT 02/16/2019 8:31 PM EDT James Bourne MD ECG ORDERABLES MUSE SYSTEM documented in this encounter Visit Diagnoses Not on filedocumented in this encounter Active and Recently Administered Medications Care Teams Hunter Relationship Specialty Start Date End Date Arelis Michele MD [address] [place] [address] PCP - General Family Medicine 08/01/18 02/11/24 documented as of this encounter
--- OUTSIDE RECORDS SUMMARY | 2024-04-06 02:29 | XMS_ITS | Encounter Summary ---
Author Organization [facility] [place] [address] Care Team Providers Care Sandwich Wrapper Name Role Phone Arelis Michele MD Primary Care Provider [phone] Encounter Details Date Type Department Care Team (Late st Contact Info) Description 09/30/2019 9:32 AM EST Anesthesia [place] [address] Yung Dee MD [facility] [place] [address] Anesthesia Record Procedure Summary Procedure Name Responsible Anesthesiologist Anesthesia Start Time Anesthesia Stop Time COLONOSCOPY, DIAGNOSTIC (WRVU 3.26) (Trunk) Yung Dee MD 09/30/19 0932 09/30/19 1024 Events Date Time Event Comment 09/30/2019 0924 0932 AN Verify 0932 Start 0936 An Start Data 0940 An Induction 0942 Anesthesia Ready 1020 an stop data 1024 Recovery or ICU Handoff Mary ent care was transferred to the destination unit staff after review of the patient's medical history, current anesthetic/surgical status and plan, according to the Provider Handoff Checklist. 1024 Stop Meds Name Total IV Lidocaine 60 mg Propofol 150 mg Propofol INF 519.39 mg lactated ringers infusion 100 mL * Agents Name O2 Air N2O * Blood No blood administrations on file. Lines, Drains, and Airways Type Details Placement Removal (RETIRED) Peripheral IV Line - Single Lumen 09/30/19; 0921; median cubital vein (antecubital fossa), right; uoxz-dlo-dbzlel catheter system; 22 gauge; Christine Carrero RN; distraction, intradermal injection; 2; 09/30/19; 1049 09/30/19 0921 by Arelis Lo RN 09/30/19 1049 by Doe Howard RN documented in this encounter Social History Tobacco Use Types Packs/Day Years Used Date Smoking Tobacco: Never Smokeless Tobacco: Never Alcohol Use Standard Drinks/Week Comments No 0 (1 standard drink = 0.6 oz pur e alcohol) Sex and Gender Information Value Date Recorded Sex Assigned at Not on file Gender Identity Not on file Sexual Orientation Not on file documented as of this encounter OR Notes * Anesthesia Postprocedure Evaluation - Yung Dee MD - 09/30/2019 10:33 AM EST Department of Anesthesiology Post-procedure Note Patient: Wesly Ybarra Procedure Summary Date: 09/30/19 Room / Location: [facility] ENDO 3 / [facility] ENDOSCOPY Anesthesia Start: 931 Anesthesia Stop: 1025 Procedures: COLONOSCOPY, DIAGNOSTIC (N/A Trunk) COLONOSCOPY, POLYPECTOMY, REMOVAL LESION BY SNARE (WRVU 4.67) (N/A ) Diagnosis: (Recommend repeat colonoscopy in 3-6 months to confirm complete polyp resection depending on pathology.) Surgeon: Solitario Moody MD Responsible Provider: Yung Dee MD Anesthesia Type: MAC ASA Status: 3 All Anesthesia Providers: Anesthesiologist: Yung Dee MD LIP CUTTER: Sarah Robertson CRNA Vitals Value Taken Time BP 130/103 09/30/2019 10:30 AM Temp Pulse Resp 18 09/30/2019 10:25 AM SpO2 96 % 09/30/2019 10:31 AM Pain Level 0 09/30/2019 10:25 AM Vitals shown include unvalidated device data. Patient Location: PACU/[facility] Level of Consciousness: Awake and Alert Pain Management: Satisfactory Analgesia PONV: None Cardiovascular Status: At Baseline Respiratory Status: At Baseline Postoperative Fluid Status: Intravascular EUvolemia Possible Anesthetic Complications: NONE apparent at time of evaluation Final Primary Anesthesia Type: MAC (The anesthetic type performed was the same as planned.) Comments: * Anesthesia Preprocedure Evaluation - Yung Dee MD - 09/29/2019 10:09 PM EST Images from the original note were not included. Pre-Anesthesia Evaluation for: Wesly Ybarra a 68 y.o. male. Procedure(s): COLONOSCOPY, DIAGNOSTIC Patient Active Problem List Diagnosis ??? Right knee sprain ??? CAD (coronary artery disease) ??? Diaphragm paralysis ??? Chronic rhinitis ??? Parsonage-Slamon syndrome Neurology consult notes: Scanned outside documents [...] eye ??? Osteopenia ?? Osteopenia, DXA at [facility] in 06/2007. ?? Right wrist fracture (1962); [...] hemicolectomy. He has had no recurrent symptoms. Past Medical History: Diagnosis Date ??? Arthritis ??? Cataract ??? Depression ??? GERD (gastroesophageal reflux disease) ??? headache ??? Hyperlipidemia ??? Hypertension ??? 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 Right knee sprain 08/11/2019 Past Surgical History: Procedure Laterality Date ??? COLON SURGERY 1995 partial removal ??? PRO COLONOSCOPY, FLEX, W/DIR SUBMUC INJECT N/A 02/16/2019 COLONOSCOPY WITH DIRECTED SUBMUCOSAL INJ (WRVU 3.66) performed by Sarwat Villarreal MD at [facility] ENDOSCOPY ??? PRO COLONOSCOPY, REMV LESN, SNARE N/A 02/16/2019 COLONOSCOPY, POLYPECTOMY, REMOVAL LESION BY SNARE (WRVU 4.67) performed by Sarwat Villarreal MD at [facility] ENDOSCOPY ??? PRO UP GI ENDOSCOPY, BALL DIL, 30MM N/A 02/16/2019 EGD,WITH DILATION ESOPHAGUS WITH BALLOON,< 30 MM (WRVU 2.77) performed by Sarwat Villarreal MD at [facility] ENDOSCOPY ??? PRO UPPER GI ENDOSCOPY, BIOPSY N/A 02/16/2019 EGD WITH BIOPSY (WRVU 2.49) performed by Sarwat Villarreal MD at [facility] ENDOSCOPY Social History Tobacco Use ??? Smoking status: Never Smoker ??? Smokeless tobacco: Never Used Substance Use Topics ??? Alcohol use: No Social History Substance and Sexual Activity Drug Use No Allergies Allergen Reactions ??? Calcium kidney stones ??? Levothyroxine ??? Lisinopril Dry cough Medications: MAR and/or home medications have been reviewed. Physical Exam: There were no vitals filed for this visit. There is no height or weight on file to calculate BMI. Airway Assessment: Mallampati: III TM distance: >3 FB Limited extension Cardiovascular Assessment: Rhythm: regular Pulmonary Assessment: Dental Assessment: (+) upper dentures Misc Assessment: Anesthesia Plan: ASA 3 MAC, with a(n) intravenous induction 68 yro presenting for colonoscopy. PMHX reviewed and notable for class 3 CHF, single vessel CAD s/pLAD stent 03/20 w/ EF 45%, RA, paralyzed hemidiaphragm, brachial neuritis (Parsonage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) and GERD (minimal issues). Based line, stable, non-productive cough. Stable ZEPEDA. Denies recent URI, f/s/c, CP/syncope, increasing SOB. No prior issues with anesthesia. NPO status appropriate. Plan: MAC w/propofol, standard monitors. Region - Other Informed Consent: Anesthetic plan and risks discussed with patient. Plan discussed with LIP CUTTER. PAT Clinic Note documented in this encounter Miscellaneous Notes * Addendum Note - Sarah Robertson CRNA - 09/30/2019 12:28 PM EST Addendum created 09/30/19 1228 by Sarah Robertson CRNA Intraprocedure Event edited, Intraprocedure Staff edited documented in this encounter Plan of Treatment Upcoming Encounters Date Type Department Care Team (Late st Contact Info) Description 04/28/2024 12:00 PM EDT [place]ointment [place] [address] documented as of this encounter Visit Diagnoses Not on filedocumented in this encounter Administered Medications Inactive Administered Medications - up to 3 most recent administrations Medication Order MAR Action Action Date Dose Rate Site lactated ringers infusion 100 mL/hr, Intravenous, CONTINUOUS, Starting on Sat09/30/19 at 0915, Until Sat09/30/19 at 1050, Endoscopy (Day of Procedure) New Bag 09/30/2019 9:32 AM EST lidocaine (PF) (XYLOCAINE) 100 mg/5 mL (2 %) injection PRN, Starting on Sat09/30/19 at 0940, Until Sat09/30/19 at 1026, Anesthesia Intra-op, Routine Given 09/30/2019 9:40 AM EST 60 mg propofol (DIPRIVAN) 10 mg/mL bolus injection (Anesthesia) PRN, Starting on Sat09/30/19 at 0940, Until Sat09/30/19 at 1026, Anesthesia Intra-op Given 09/30/2019 9:44 AM EST 50 mg Given 09/30/2019 9:42 AM EST 50 mg Given 09/30/2019 9:40 AM EST 50 mg propofol (DIPRIVAN) infusion CONTINUOUS PRN, Starting on Sat09/30/19 at 0944, Until Sat09/30/19 at 1026, Anesthesia Intra-op, Routine Rate/Dose Change 09/30/2019 10:11 AM EST 100 mcg/kg/min 57.2 mL/hr Rate/Dose Change 09/30/2019 9:49 AM EST 200 mcg/kg/min 114 .4 mL/hr New Bag 09/30/2019 9:44 AM EST 150 mcg/kg/min 85.8 mL/h r documented in this encounter Care Teams Sandwich Wrapper Relationship Specialty Start Date End Date Arelis Michele MD [address] [place] [address] PCP - General Family Medicine 08/01/18 02/11/24 documented as of this encounter
--- OUTSIDE RECORDS SUMMARY | 2024-04-06 02:29 | XMS_ITS | Encounter Summary ---
[place] [address] Care Team Providers Care Cat Swamper Name Role Phone Arelis Michele MD Primary Care Provider [phone] Reason for Visit * Reason Onset Date Comments Other 07/07/2019 Encounter Details Date Type Department Care Team (Late st Contact Info) Description 07/07/2019 Telephone [place] [id number] Lionel Rabago RN Other Social History Tobacco Use Types [...] Encounter - Lionel Rabago RN - 07/20/2019 9:05 AM EST Images from the original note were not included. Dianne Norton, ITA [facility] Rheumatology Nurse ?? Please call pt and relay the following: I reviewed [facility] ED notes. I would like to get a knee MRI here, and I would like him to be evaluatedby our ortho dept. Please ask if he is amenable to this. When is he back from his trip? * Telephone Encounter - Lionel Rabago RN - 07/17/2019 8:41 AM EST Notes received from ED and left for provider to review. * Telephone Encounter - Lionel Rabago RN - 07/13/2019 10:08 AM EST Images from the original note were not included. Dianne Norton APRN Gavalakis, Rory A, RN Caller: Unspecified (6 days ago, ??3:58 PM) ?? Please request those notes be routed to us Spoke with patient, went to [facility] last Saturday. States was instructed to apply ice and heat. Ice is helps. Keeping leg elevated. Swelling, black and blue decreasing. Slight decrease in pain. Tylenol, helping somewhat. Patient states condition improving, will request notes. * Telephone Encounter - Lionel Rabago RN - 07/09/2019 2:21 PM EST Patient returns call to clinic. Spoke with patient and updated on imaging. He is currently in [place]. Patient states that his right leg/knee has worsened since his appointment. It is now black and blue, painful and swollen. He has difficulty with ambulation. He denies any numbness and he is able to wiggle his toes and has movement. Based on previous notes and current set of symptoms/worsening condition, patient was advised to be assessed in ED. He expressed understanding and he will find transportation to local ED. * Telephone Encounter - Lionel Rabago RN - 07/08/2019 8:06 AM EST Images from the original note were not included. Dianne Norton APRN Gavalakis, Rory A, RN ?? Thanks. Can you please relay lab results when he calls back? His CRP is elevated at 34, but other labs are stable. This is unremarkable in light of what's happening. * Telephone Encounter - Lionel Rabago RN - 07/07/2019 3:57 PM EST ----- Message from Dianne Norton APRN sent at 07/07/2019 2:02 PM EST ----- Called pt, expect return call. Please relay the following CT is suggestive of tendon rupture or muscular hematoma. Need MRI to further investigate. Where would he like this done? How is the right knee/calf feeling right now? I know he is leaving for a trip soon. I will leave that up to his discretion. If he goes, he needs to be very cautious with ambulation, get medical attention if acute worsening of pain, swelling, etc. Called patient, unavailable. Message left with call back number provided. documented in this encounter Plan of Treatment Upcoming Encounters Date Type Department Care Team (Late st Contact Info) Description 04/28/2024 12:00 PM EDT Appointment [place] [address] documented as of this encounter Visit Diagnoses Not on filedocumented in this encounter Care Teams Cat Swamper Relationship Specialty Start Date End Date Arelis Michele MD [address] [place] [address] PCP - General Family Medicine 08/01/18 02/11/24 documented as of this encounter
--- OUTSIDE RECORDS SUMMARY | 2024-04-06 02:29 | XMS_ITS | Encounter Summary ---
Author Organization [facility] [place] [address] Care Team Providers Care Rabbit Dresser Name Role Phone Arelis Michele MD Primary Care Provider [phone] Reason for Referral * Diagnostic Test (Routine) - Closed Specialty Diagnoses / Procedures Referred By Contac t Referred To Contact Radiology Diagnoses Right leg swelling Injury of right lower extremity, subsequent encounter Procedures MRI Knee wo Contrast Right (Generic) Dianne Norton APRN [facility] [place] [address] [place] [address] Referral ID Status Reason Start Date Expiration Date V isits Requested Visits Authorized [id number] Closed Specialty Service Requested 07/22/2019 07/21/2020 1 1 Reason for Visit * Diagnostic Test (Routine) - Closed Specialty Diagnoses / Procedures Referred By Contac t Referred To Contact Radiology Diagnoses Right leg swelling Injury of right lower extremity, subsequent encounter Procedures MRI Knee wo Contrast Right (Generic) Dianne Norton APRN [facility] [place] [address] [place] [address] Referral ID Status Reason Start Date Expiration Date V isits Requested Visits Authorized [id number] Closed Specialty Service Requested 07/22/2019 07/21/2020 1 1 Encounter Details Date Type Department Care Team (Latest Contact Info) Description 08/10/2019 12:00 PM EST - 08/10/2019 11:59 PM EST Hospital Encounter MRI at [facility] [place] [address] Dianne Norton, ITA [facility] [place] [address] Right leg swelling; Injury of right lower extremity, subsequent encounter Discharge Disposition: Home Social History Tobacco Use [...] 12:00 PM EDT [place] [address] documented as of this encounter Procedures Procedure Name Priority Date/Time Associated Diagnosis Comments MRI KNEE RIGHT WO CONTRAST Routine 08/10/2019 2:05 PM EST Right leg swelling Injury of right lower extremity, subsequent encounter documented in this encounter Results * MRI Knee wo [...] interpretation and agree with the findings, Kelly Cruz at 08/10/2019 5:05 PM Thank you for letting us participate in the care of this patient. For questions regarding this report, please contact the number below. ? Electronically signed by: FINA Brown Replaced By [facility] ([phone]), at 08/10/2019 5:05 PM Narrative 08/10/2019 5:05 [...] cartilage in the patellofemoral compartment since the [id number] was optimized to evaluate a hematoma in [...] cartilage in the patellofemoral compartment since the [id number]-hl-rasa was optimized to evaluate a hematoma in [...] please contact the number below. Dianne Norton [employer] SET UP MECHANIC IMG MRI ORDERABLES documented in this encounter Visit Diagnoses Diagnosis Right leg swelling Injury of right lower extremity, subsequent encounter documented in this encounter Care Teams Rabbit Dresser Relationship Specialty Start Date End Date Arelis Michele MD [address] [place] [address] PCP - General Family Medicine 08/01/18 02/11/24 documented as of this encounter
--- OUTSIDE RECORDS SUMMARY | 2024-04-06 02:29 | XMS_ITS | Encounter Summary ---
Author Organization [facility] [place] [address] Care Team Providers Care Pump Servicer Supervisor Name Role Phone Arelis Michele MD Primary Care Provider [phone] Reason for Visit * Reason Comments Right Knee Pain right knee pain,disc uss MRI * Consultation (Urgent) - Closed Specialty Diagnoses / Procedures Referred By Azam corbett Referred To Contact Orthopaedics Diagnoses Right leg swelling Injury of right lower extremity, subsequent encounter Right knee pain Dianne Norton APRN [facility] [place] [address] [facility] [address] [place] [id number] Referral ID Status Reason Start Date Expiration Date V isits Requested Visits Authorized [id number] Closed Consult, Test & Treat 07/22/2019 07/21/2020 1 1 Encounter Details Date Type Department Care Team (Late st Contact Info) Description 08/11/2019 1:00 PM EST Office [place] [address] Db Lara MD [facility] [place] [address] Sprain of right knee, unspecified ligament, initial encounter Social History Tobacco Use Types Packs/Day [...] Sign Reading Time Taken Comments Blood Pressure 112/69 08/11/2019 11:42 AM EST Pulse 74 08/11/2019 11:42 AM EST Temperature - - Respiratory Rate - - Oxygen Saturation - - Inhaled Oxygen Concentration - - Weight 94.3 kg (208 lb) 08/11/2019 11:42 AM EST Height 180.3 cm (5' 11) 08/11/2019 11:42 AM EST Body Mass Index 29.01 08/11/2019 11:42 AM EST documented in this encounter Progress Notes * Db Lara MD - 08/11/2019 1:00 PM EST Orthopedic Surgery Clinic Note Chief Complaint: Chief Complaint Patient presents with ??? Right Knee Pain right knee pain,discuss MRI The patient is a 68 y.o. male who presents to see me [at the request of Dianne Norton, [place] [address]] for the above chief complaint. HPI: The patient is a very pleasant 68-year-old gentleman who comes in today complaining of right knee pain. He was getting out of bed going to the kitchen on 06/24/2019 when he stepped and felt a pop in his right lower extremity behind his knee in the midline. He did not have any pre-morbid pain there.He had significant swelling throughout his leg from his mid thigh to his calf associated with ecchymosis as well. He has been doing physical therapy [address] [place]. He has noted improvements but it is not perfect yet. He had an MRI demonstrating a hematoma in the posterior aspect of his knee. No history of personal cancer. Patient Active Problem List Diagnosis Code ??? [...] J31.0 ??? CAD (coronary artery disease) I25.10 Past Medical History: Diagnosis Date ??? Arthritis ??? Cataract ??? Depression ??? GERD (gastroesophageal reflux disease) ??? headache ??? Hyperlipidemia ??? Hypertension ??? 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 COLON SURGERY 1995 partial removal ??? PRO COLONOSCOPY, FLEX, W/DIR SUBMUC INJECT N/A 02/16/2019 COLONOSCOPY WITH DIRECTED SUBMUCOSAL INJ (WRVU 3.66) performed by Sarwat Villarreal MD at [facility] ENDOSCOPY ??? PRO COLONOSCOPY, REMV LESN, SNARE N/A 02/16/2019 COLONOSCOPY, POLYPECTOMY, REMOVAL LESION BY SNARE (WRVU 4.67) performed by Sarwat Villarreal MD at [facility] ENDOSCOPY ??? PRO UP GI ENDOSCOPY, BALL DIL, 30MM N/A 02/16/2019 EGD,WITH DILATION ESOPHAGUS WITH BALLOON,< 30 MM (WRVU 2.77) performed by Sarwat Villarreal MD at [facility] ENDOSCOPY ??? PRO UPPER GI ENDOSCOPY, BIOPSY N/A 02/16/2019 EGD WITH BIOPSY (WRVU 2.49) performed by Sarwat Villarreal MD at [facility] END[facility]COPY Medications were reviewed with the patient today and are up to date. Family History: Family History Problem Relation Age of Onset ??? Cancer Father liver ??? Glaucoma Neg Hx ??? Macular Degeneration Neg Hx ??? Retinal Detachment Neg Hx Social History: Social History Socioeconomic History ??? Marital status: [...] file Gets together: Not on file Attends yarsanism service: Not on file Active member of [...] Social History Narrative ??? Not on file Imaging studies: X-rays and MRI reviewed performed at [facility] reviewed including the report and images and demonstrated a hematoma the posterior aspect of the knee along the gastroc tendon. Oblique posterior medial meniscus tear. Physical Exam: Awake/Alert, NAD examination of the left right lower extremity demonstrates full range of motion of the knee. No effusion. Some mild tenderness along the lateral joint line. No medial joint line tenderness. No effusion no ecchymosis in the leg or the thigh. No significant leg or thigh swelling. 5 out of 5 strength with ankle plantar dorsiflexion knee extension knee flexion straight leg raising EHL FHL. Sensation intact light touch SP DP tibial sural saphenous distributions. 2+ DP pulse. Some tenderness in the posterior knee along the medial and lateral heads of the gastroc tendons. Questionnaire Responses: General Health, Prior Treatments, PreExisting Condition, Health Habits, About You 08/11/2019 PROMIS-10 General Health Fair PROMIS-10 Quality of Life Fair PROMIS-10 Physical Health Fair PROMIS-10 Mental Health Good PROMIS-10 Social Activity Fair PROMIS-10 Everyday Activities Moderately PROMIS-10 Pain 5 PROMIS-10 Fatigue Moderate PROMIS-10 Social Roles Fair PROMIS-10 Anxious or Depressed Often PROMIS PHYSICAL SCORE (range 16-68) 37.4 PROMIS MENTAL SCORE (range 21-68) 36.3 Treatments Tried Heat and ice therapy, Physical therapy, Acetaminophen (e.g. Tylenol) KOOS JR Scores 50.01 TKA Grade 5 Alzheimers or dementia No Cirrohosis or liver disease No HIV/AIDS No Pain in more than one joint in legs Yes Back or neck pain Yes Heart attack Yes Heart failure No Unclog/bypass leg arteries No Stroke, blood clot, TIA No Asthma No Emphysema, chronic bronchities, or COPD No Stomach ulcers/peptic ulcer disease No Diabetes No Poor kidney function No Rheumatic condtions Yes Take medications for rheumatic conditions Yes Cancer No Weight (lbs) 208 Height (feet) 5 feet Height (Inches) 10 BMI 29.84 (Overweight) Ever used tobacco products No Ever used alcoholic beverages No Live Alone Yes Marital situation Single (never ) Schooling High school graduate or GED Combined Household Income $15,000 to less than $20,000 # People Supported 1 Mauritian, , No, not Mauritian// Race White Health Literacy Somewhat Currently working No Not working because: Retired [facility] Response 08/11/2019 KOOS JR Scores 50.01 Spine [facility] Response 08/11/2019 KOOS JR Scores 50.01 Medical decision making/Assessment: 68-year-old male with right tendon strain likely of his gastrocnemius muscle or tendon with associated swelling and hematoma. MRI was reviewed. I discussed that if this does not get better in the next couple of months then he should call back and we would get a repeat MRI with and without contrast as suggested in the MRI report but the patient does not have any personal history of cancer and this was associated with a traumatic event. He will follow-up as needed continue physical therapy. Take anti-inflammatory medications as needed. Ice as needed. All questions answered. Db Lara MD MS Orthopaedic Surgery Pager: [phone] documented in this encounter Plan of Treatment Upcoming Encounters Date Type Department Care Team (Late st Contact Info) Description 04/28/2024 12:00 PM EDT Appointment [place] [address] Scheduled Referrals Name Type Priority Associated Diagnoses Order Schedule Referral to Orthopaedics Outpatient Referral Routine Right leg swelling Injury of right lower extremity, subsequent encounter Ordered: 07/22/2019 documented as of this encounter Visit Diagnoses Diagnosis Sprain of right knee, unspecified ligament, initial encounter documented in this encounter Care Teams Pump Servicer Supervisor Relationship Specialty Start Date End Date Arelis Michele MD [address] [place] [address] PCP - General Family Medicine 08/01/18 02/11/24 documented as of this encounter
--- OUTSIDE RECORDS SUMMARY | 2024-04-06 02:29 | XMS_ITS | Encounter Summary ---
Author Organization [facility] [place] [address] Care Team Providers Care Segment Block Layer Name Role Phone Arelis Michele MD Primary Care Provider [phone] Encounter Details Date Type Department Care Team (Late Contact Info) Description 07/07/2019 Telephone [place] [phone] Dianne Norton, DOG CONTROL OFFICER [facility] [place] [address] Social History Tobacco Use Types Packs/Day Years [...] 12:00 PM EDT [place] [address] documented as of this encounter Visit Diagnoses Not on filedocumented in this encounter Care Teams Segment Block Layer Relationship Specialty Start Date End Date Arelis Michele MD [address] [place], [place] [address] PCP - General Family Medicine 08/01/18 02/11/24 documented as of this encounter
--- OUTSIDE RECORDS SUMMARY | 2024-04-06 02:29 | XMS_ITS | Encounter Summary ---
Author Organization [facility] [place] [address] Care Team Providers Care Net Developer Software Engineer C Name Role Phone Arelis Michele MD Primary Care Provider [phone] Encounter Details Date Type Department Care Team (Late st Contact Info) Description 02/16/2019 12:02 PM EDT Anesthesia [place] [address] James Bourne MD [facility] [place] [address] Mely Azul CRNA [facility] [place] [address] Anesthesia Record Procedure Summary Procedure Name Responsible Anesthesiologist Anesthesia Start Time Anesthesia Stop Time EGD,WITH DILATION ESOPHAGUS WITH BALLOON,< 30 MM (WRVU 2.67) (Trunk) Tayla, James Mosquera MD 02/16/19 1202 02/16/19 1322 Events Date Time Event Comment 02/16/2019 1039 1202 AN Verify 1202 Start 1202 An Start Data 1207 An Induction 1207 Anesthesia Ready 1322 an stop data 1322 Recovery or ICU Handoff Mary ent care was transferred to the destination unit staff after review of the patient's medical history, current anesthetic/surgical status and plan, according to the Provider Handoff Checklist. 1322 Stop Meds Name Total IV Lidocaine 40 mg Propofol 50 mg Propofol INF 564.61 mg Lactated Ringers 300 mL * Agents Name O2 Air N2O O2 Auxiliary Flowmeter 1 * Blood No blood administrations on file. Lines, Drains, and Airways Type Details Placement Removal (RETIRED) Peripheral IV Line - Single Lumen 02/16/19; 1020; median cubital vein (antecubital fossa), right; 22 gauge; C Stuart; distraction, intradermal injection; no longer indicated; 02/16/19; 1401 02/16/19 1020 by Charlette Bhatti RN 02/16/19 1401 by Maria Teresa Barrera RN documented in this encounter Social History [...] OR Notes * Anesthesia Postprocedure Evaluation - James Bourne MD - 02/16/2019 2:13 PM EDT Department of Anesthesiology Post-procedure Note Patient: Wesly Ybarra Procedure Summary Date: 02/16/19 Room / Location: [facility] ENDO 3 / [facility] Anesthesia Start: 1202 Anesthesia Stop: 1322 Procedures: EGD,WITH DILATION ESOPHAGUS WITH BALLOON,< 30 MM (WRVU 2.77) (N/A Trunk) COLONOSCOPY, POLYPECTOMY, REMOVAL LESION BY SNARE (WRVU 4.67) (N/A Trunk) EGD WITH BIOPSY (WRVU 2.49) (N/A Esophagus) COLONOSCOPY WITH DIRECTED SUBMUCOSAL INJ (WRVU 3.66) (N/A Trunk) Diagnosis: (screening) (miralax) Surgeon: Sarwat Villarreal MD Responsible Provider: James Bourne MD Anesthesia Type: general ASA Status: 3 All Anesthesia Providers: Anesthesiologist: James Bourne MD EYEGLASS LENS GENERATOR: Mely Azul CRNA Vitals Value Taken Time BP 137/96 02/16/2019 1:50 PM Temp Pulse Resp SpO2 99 % 02/16/2019 1:58 PM Pain Level Vitals shown include unvalidated device data. Patient Location: PACU/SDP Level of Consciousness: Awake and Alert Pain Management: Satisfactory Analgesia PONV: None Cardiovascular Status: At Baseline Respiratory Status: At Baseline Postoperative Fluid Status: Intravascular EUvolemia Possible Anesthetic Complications: NONE apparent at time of evaluation Final Primary Anesthesia Type: General (The anesthetic type performed was the same as planned.) Comments: I have evaluated the patient in the postoperative period. The time of my evaluation may not match the note time. The patient has no major complaints and there are no serious complications evident. * Anesthesia Preprocedure Evaluation - Tayla, James Mosquera MD - 02/16/2019 10:37 AM EDT Pre-Anesthesia Evaluation for: Wesly Ybarra a 68 y.o. male. Procedure(s): EGD, UPPER GI ENDOSCOPY COLONOSCOPY, DIAGNOSTIC Patient Active Problem List Diagnosis ??? Diaphragm paralysis ??? Chronic rhinitis [...] eye ??? Osteopenia ?? Osteopenia, DXA at [facility] in 06/2007. ?? Right wrist [...] Date ??? COLON SURGERY 1994 partial removal Social History Tobacco Use ??? Smoking status: Never Smoker ??? Smokeless tobacco: Never Used Substance Use Topics ??? Alcohol use: No Social History Substance and Sexual Activity Drug Use No Allergies Allergen Reactions ??? Calcium kidney stones ??? Levothyroxine ??? Lisinopril Dry cough Medications: MAR and/or home medications have been reviewed. Physical Exam: Most Recent Vitals: 02/16/19 1016 BP: 146/85 Pulse: 98 Temp: 36.7 ??C (98.1 ??F) SpO2: 97% Body mass index is 27.89 kg/m??. Weight: 90.7 kg (200 lb) Airway Assessment: Mallampati: II TM distance: >3 FB Neck ROM: full Cardiovascular Assessment: Rhythm: regular Rate: normal Pulmonary Assessment: (+) decreased breath sounds Dental Assessment: Misc Assessment: IV access: Peripheral line Anesthesia Plan: ASA 3 general, with a(n) intravenous induction I have seen and examined the patient. I have reviewed the medical record and pertinent laboratory information. I have noted the major medical issues as outlined in the problem list and also to include CAD (Non-obstructive by Cath 2013), EF around 45%, advanced RA, chronic pain, R diaphragmatic paralysis, and chronic SOB (followed by pulmonary). I have reviewed risks from minor to major as outlined in the anesthesia consent form. I have highlighted risks related to airway management and and sedation. He is high risk. He is aware that our care model is based on a team and I will be working with either a EYEGLASS LENS GENERATOR or resident physician. A resident physician means a physician who is in training to be an anesthesiologist. The patient acknowledged these risks and would like to proceed with the anesthesia plan. Sedation with GA back up. I will obtain baseline EKG. Informed Consent: Anesthetic plan and risks discussed with patient. Plan discussed with EYEGLASS LENS GENERATOR. PAT Clinic Note documented in this encounter Plan of Treatment Upcoming Encounters Date Type Department Care Team (Late st Contact Info) Description 04/28/2024 12:00 PM EDT [place] [address] documented as of this encounter Visit Diagnoses Not on filedocumented in this encounter Administered Medications Inactive Administered Medications - up to 3 most recent administrations Medication Order MAR Action Action Date Dose Rate Site lactated ringers infusion CONTINUOUS PRN, Starting on Sat02/16/19 at 1202, Until Sat02/16/19 at 1322, Anesthesia Intra-op New Bag 02/16/2019 12:02 PM EDT lidocaine (PF) (XYLOCAINE) 100 mg/5 mL (2 %) injection PRN, Starting on Sat02/16/19 at 1207, Until Sat02/16/19 at 1322, Anesthesia Intra-op, Routine Given 02/16/2019 12:07 PM EDT 40 mg propofol (DIPRIVAN) 10 mg/mL bolus injection (Anesthesia) PRN, Starting on Sat02/16/19 at 1207, Until Sat02/16/19 at 1322, Anesthesia Intra-op Given 02/16/2019 12:09 PM EDT 10 mg Given 02/16/2019 12:08 PM EDT 10 mg Given 02/16/2019 12:07 PM EDT 30 mg propofol (DIPRIVAN) infusion CONTINUOUS PRN, Starting on Sat02/16/19 at 1207, Until Sat02/16/19 at 1322, Anesthesia Intra-op, Routine Rate/Dose Change 02/16/2019 1:14 PM EDT 50 mcg/kg/min 27.2 mL/hr Rate/Dose Change 02/16/2019 12:27 PM EDT 75 mcg/kg/min 40. 8 mL/hr Rate/Dose Change 02/16/2019 12:16 PM EDT 100 mcg/kg/min 54 .4 mL/hr documented in this encounter Care Teams Net Developer Software Engineer C Relationship Specialty Start Date End Date Arelis Michele MD [address] [place] [address] PCP - General Family Medicine 08/01/18 02/11/24 documented as of this encounter
--- OUTSIDE RECORDS SUMMARY | 2024-04-06 02:29 | XMS_ITS | Encounter Summary ---
[place] [address] Care Team Providers Care Sizing Machine And Drier Operator Name Role Phone Arelis Michele MD Primary Care Provider [phone] Reason for Referral * Diagnostic Test (Emergency) - Closed Specialty Diagnoses / Procedures Referred By Contac t Referred To Contact Radiology Diagnoses Edema of right lower extremity Procedures CT Knee wo Contrast Right (Generic) Dianne Norton APRN [facility] [place] [address] [facility] [place] [address] Referral ID Status Reason Start Date Expiration Date V isits Requested Visits Authorized [id number] Closed Specialty Service Requested 07/02/2019 07/01/2020 1 1 Reason for Visit * Diagnostic Test (Emergency) - Closed Specialty Diagnoses / Procedures Referred By Contac t Referred To Contact Radiology Diagnoses Edema of right lower extremity Procedures CT Knee wo Contrast Right (Generic) Dianne Norton APRN [facility] [place] [address] [facility] [place] [address] Referral ID Status Reason Start Date Expiration Date V isits Requested Visits Authorized [id number] Closed Specialty Service Requested 07/02/2019 07/01/2020 1 1 Encounter Details Date Type Department Care Team (Latest Contact Info) Description 07/02/2019 5:20 PM EDT - 07/02/2019 11:59 PM EDT Hospital Encounter CT Scan at [facility] [place] [address] Dianne Norton, ITA [facility] [place] [address] Edema of right lower extremity Discharge Disposition: Home Social History Tobacco Use [...] 12:00 PM EDT [place] [address] documented as of this encounter Procedures Procedure Name Priority Date/Time Associated Diagnosis Comments CT KNEE WO CONTRAST RIGHT STAT 07/02/2019 6:13 PM EDT Edema of right lower extremity documented in this encounter Results * CT [...] number below. ? Electronically signed by: FINA Cespedes [facility] ([phone]), at 07/02/2019 6:28 PM Narrative 07/02/2019 6:28 PM EDT EXAMINATION: CT [...] contact the number below. Electronically signed by: Ever Pulido [facility]([phone]), at 07/02/2019 6:28 PM Dianne Elbert Norton APRN IMG CT ORDERABLES documented in this encounter Visit Diagnoses Diagnosis Edema of right lower extremity Edema documented in this encounter Care Teams Sizing Machine And Drier Operator Relationship Specialty Start Date End Date Arelis Michlee MD [address] [place] [address] PCP - General Family Medicine 08/01/18 02/11/24 documented as of this encounter
--- OUTSIDE RECORDS SUMMARY | 2024-04-06 02:29 | XMS_ITS | Encounter Summary ---
[place] [address] Care Team Providers Care Harness Fitter Name Role Phone Arelis Michele MD Primary Care Provider [phone] Reason for Visit * Reason Onset Date Comments Medication Refill 09/14/2019 Encounter Details Date Type Department Care Team (Late st Contact Info) Description 09/14/2019 Refill Cardiology at [address] [address] Cecilia Tejeda LPN Medication Refill Social History Tobacco Use Types [...] encounter Miscellaneous Notes * Telephone Encounter - Cecilia Tejeda LPN - 09/14/2019 2:11 PM EST Fax from [employer] Atorvastatin 40 mg tablet- take 1 tablet by mouth once a day Last office visit: 03/20/2019 Follow-up Recommendations for Providers: - dual antiplatelet regimen as follows: - aspirin 81 mg daily lifelong - clopidogrel 75 mg daily for 6 months after PCI for stable ischemic heart disease -Switch lovastatin to atorvastin - recommend follow up with cardiology in 4 weeks Cecilia tejeda LPN documented in this encounter Plan of Treatment Upcoming Encounters Date Type Department Care Team (Late st Contact Info) Description 04/28/2024 12:00 PM EDT [place] [address] documented as of this encounter Visit Diagnoses Not on filedocumented in this encounter Care Teams Harness Fitter Relationship Specialty Start Date End Date Arelis Michele MD [address] [place] [address] PCP - General Family Medicine 08/01/18 02/11/24 documented as of this encounter
--- OUTSIDE RECORDS SUMMARY | 2024-04-06 02:30 | XMS_ITS | Encounter Summary ---
Author Organization [facility] [place] [address] Care Team Providers Care Social Service Agency Director Name Role Phone Arelis Michele MD Primary Care Provider [phone] Encounter Details Date Type Department Care Team (Late Contact Info) Description 09/05/2018 Tele[place] [address] Tiara Torres Social History Tobacco Use Types Packs/Day Years [...] encounter Miscellaneous Notes * Telephone Encounter - Tiara Torres - 09/05/2018 11:17 AM EST The patient came to the Exit desk. The appropriate Radiology Safety questions were asked and the patient was scheduled for his CT scan. documented in this encounter Plan of Treatment Upcoming Encounters Date Type Department Care Team (Late st Contact Info) Description 04/28/2024 12:00 PM EDT [place] [address] documented as of this encounter Visit Diagnoses Not on filedocumented in this encounter Care Teams Social Service Agency Director Relationship Specialty Start Date End Date Berrian, Arelis M, MD [address] [place] [address] PCP - General Family Medicine 08/01/18 02/11/24 documented as of this encounter
--- OUTSIDE RECORDS SUMMARY | 2024-04-06 02:30 | XMS_ITS | Encounter Summary ---
[place] [address] Care Team Providers Care Human Services Professional Name Role Phone Arelis Michele MD Primary Care Provider [phone] Encounter Details Date Type Department Care Team (Late Contact Info) Description 12/19/2018 Telephone [place] [address] Yumi Maxwell Social History Tobacco Use Types [...] * Telephone Encounter - Yumi Maxwell - 12/19/2018 2:04 PM EDT Left message for patient to contact the office. The patient's appointment was canceled inadvertently and needs to reschedule. There is an opening being held on Dr. Loyd's schedule 12/22/18 if the patient is able to come in documented in this encounter Plan of Treatment Upcoming Encounters Date Type Department Care Team (Late Contact Info) Description 04/28/2024 12:00 PM EDT [place]ointment [place] [address] documented as of this encounter Visit Diagnoses Not on filedocumented in this encounter Care Teams Human Services Professional Relationship Specialty Start Date End Date Arelis Michele MD [address] [place] [address] PCP - General Family Medicine 08/01/18 02/11/24 documented as of this encounter
--- OUTSIDE RECORDS SUMMARY | 2024-04-06 02:30 | XMS_ITS | Encounter Summary ---
Author Organization [facility] [place] [address] Care Team Providers Care Reference Library Assistant Name Role Phone Arelis Michele MD Primary Care Provider [phone] Encounter Details Date Type Department Care Team (Late st Contact Info) Description 04/20/2016 [place] [phone] Shanelle Xie Social History Tobacco Use Types Packs/Day Years [...] encounter Miscellaneous Notes * Telephone Encounter - Shanelle Xie - 04/20/2016 1:13 PM EDT Welsy calls today wondering why he had an 04/23/16 appointment with Guillermina Espana as his last AVS of 02/28/16 said to follow up in a year. He was wondering if something has changed. documented in this encounter Plan of Treatment Upcoming Encounters Date Type Department Care Team (Late st Contact Info) Description 04/28/2024 12:00 PM EDT [place] [phone] documented as of this encounter Visit Diagnoses Not on filedocumented in this encounter Care Teams Reference Library Assistant Relationship Specialty Start Date End Date Arelis Michele MD [address] [place] [address] PCP - General 11/16/13 06/10/18 documented as of this encounter
--- OUTSIDE RECORDS SUMMARY | 2024-04-06 02:30 | XMS_ITS | Encounter Summary ---
Author Organization [facility] [place] [address] Care Team Providers Care Papier Mache' Molder Name Role Phone Arelis Michele MD Primary Care Provider [phone] Encounter Details Date Type Department Care Team (Latest Contact Info) Description 08/13/2018 - 08/13/2018 11:59 PM EST Hospital Encounter [place] [address] BackerSteven MD [facility] [place] [address] Discharge Disposition: Home Social History Tobacco Use [...] Sig Dispensed Refills Start Date End Date nitroGLYcerin (NITROSTAT) 0.4 mg Tablet, Sublingual PLACE [...] by mouth daily. 45 tablet 02/28/2016 09/17/2023 atorvastatin (LIPITOR) 10 mg Tablet Take 10 mg by mouth daily. 01/08/2019 clopidogrel (PLAVIX) 75 mg tablet Take 75 mg by mouth daily. 01/08/2019 terazosin (HYTRIN) 1 mg capsule Take 1 mg by mouth nightly. 06/05/2022 albuterol (PROVENTIL HFA;VENTOLIN HFA) 90 mcg/actuation inhaler Inhale 2 puffs into the lungs every 4 hours as needed. Use with spacer 12/08/2021 venlafaxine (EFFEXOR-XR) 75 mg 24 hr capsule Take 75 mg by mouth daily. 10/20/2018 lovastatin (MEVACOR) 10 mg tablet Take 10 mg by mouth nightly. 03/21/2019 cevimeline (EVOXAC) 30 mg capsule Take 30 mg by mouth daily. 01/08/2019 temazepam (RESTORIL) 30 mg capsule 30 mg, PO, QHS 11/02/2010 06/05/2022 documented as of this encounter Plan of Treatment Upcoming Encounters Date Type Department Care Team (Late st Contact Info) Description 04/28/2024 12:00 PM EDT [place]ment [place] [address] documented as of this encounter Procedures Procedure Name Priority Date/Time Associated Diagnosis Comments FILM LIBRARY STORAGE ONLY DX CHEST Routine 08/13/2018 12:00 AM EST documented in this encounter Results * Film Library- Storage Only DX Chest (08/13/2018 12:00 AM EST) Narrative [facility] - 08/14/2018 9:21 AM EST This exam is for storage only and is auto-finalizing. Steven Soliz MD IMG FILM LIBRARY ORD ERABLES [place], [place] documented in this encounter Visit Diagnoses Not on filedocumented in this encounter Care Teams Papier Mache' Molder Relationship Specialty Start Date End Date Arelis Michele MD [address] [place] [address] PCP - General Family Medicine 08/01/18 02/11/24 documented as of this encounter
--- OUTSIDE RECORDS SUMMARY | 2024-04-06 02:30 | XMS_ITS | Encounter Summary ---
[place] [address] Care Team Providers Care Cord Splicer Name Role Phone Arelis Michele MD Primary Care Provider [phone] Reason for Visit * Reason Onset Date Comments Questions 07/29/2018 Encounter Details Date Type Department Care Team (Late st Contact Info) Description 07/29/2018 Telephone [place] [phone] Lionel Rabago, RN Questions Social History Tobacco [...] Miscellaneous Notes * Telephone Encounter - Lionel Rabago, RN - 09/04/2018 7:57 AM EST Images from the original note were not included. Kandy Espana, ITA [facility] Rheumatology Nurse Caller: Unspecified (1 month ago) ?? Nothing new in CARE EVERYWHERE. ??Recent update from PCP - may be adequate summary. I am not sure if he has had recommended diagnostics completed (see below) or seen Cardiology at OSH. Review of PULM note 08/01: ?? Check venous blood gas ?? Check peripheral eosinophilia, RAST and total IgE for asthma phenotyping ?? Increase Symbicort to BID for 4-6 weeks; if no change, d/c Symbicort ?? Will order a fluoroscopic diaphragm test at [facility] (if they perform those tests) ?? Recommend his Tray Worker determine if reasonable for time limited d/c or switch off Coreg ?? Next steps may include dynamic inspiratory/expiratory CT chest to eval for TM/EDAC ?? Next steps after that may include formal cardiopulmonary exercise test (CPET) ?? EGD scheduled for 08/2018; if negative, recommend PCP consider modified barium swallow ?? Note to be sent to Andrew White, DO ?? Follow-up with me in 4-6 weeks Previous Messages * Telephone Encounter - Lionel Rabago RN - 08/20/2018 1:26 PM EST Spoke with Billie at [facility]. Last infusion 2017. Labs in June. Billie states they will fax to clinic. * Telephone Encounter - Lionel Rabago RN - 08/12/2018 3:25 PM EST Images from the original note were not included. Kandy Espana, ITA [facility] Rheumatology Nurse Caller: Unspecified (2 weeks ago) ?? Date of last infusion and any available labs from PCP? ??Any joint swelling. ??Looks like PULM diagnostics pending and Gastroenterology ([facility] pending. Await these study results. * Telephone Encounter - Lionel Rabago RN - 07/29/2018 4:00 PM EST Billie from [facility] calls to check on status of infusion. Call returned, unavailable. Message left with call back number provided. documented in this encounter Plan of Treatment Upcoming Encounters Date Type Department Care Team (Late st Contact Info) Description 04/28/2024 12:00 PM EDT Appointment [place] [phone] documented as of this encounter Visit Diagnoses Not on filedocumented in this encounter Care Teams Cord Splicer Relationship Specialty Start Date End Date Arelis Michele MD [address] [place] [address] PCP - General Family Medicine 08/01/18 02/11/24 documented as of this encounter
--- OUTSIDE RECORDS SUMMARY | 2024-04-06 02:30 | XMS_ITS | Encounter Summary ---
Author Organization [facility] [place] [address] Care Team Providers Care Invasive Manager Name Role Phone Arelis Michele MD Primary Care Provider Encounter Details Date Type Department Care Team (Late st Contact Info) Description 02/28/2016 2:15 PM EDT Office [place] [address] Kandy Espana, RN [facility] [place] [address] Rheumatoid arthritis with positive rheumatoid factor, involving unspecified site; High risk medication use; Medication monitoring encounter Social History Tobacco Use Types Packs/Day [...] Sign Reading Time Taken Comments Blood Pressure 109/73 02/28/2016 1:51 PM EDT Pulse 81 02/28/2016 1:51 PM EDT Temperature 36.3 ??C (97.3 ??F) 02/28/2016 1:51 PM ED T Respiratory Rate - - Oxygen Saturation 99% 02/28/2016 1:51 PM EDT Inhaled Oxygen Concentration - - Weight 88.9 kg (196 lb) 02/28/2016 1:51 PM EDT Height 182.9 cm (6') 02/28/2016 1:51 PM EDT Body Mass Index 26.58 02/28/2016 1:51 PM EDT documented in this encounter Progress Notes * Kandy Espana, SERVICE SECRETARY - 02/28/2016 7:33 AM EDT Established Patient Follow Up - Rheumatology Clinic Wesly Ybarra is a 65 y.o.male seen for ongoing evaluation and management of rheumatoid arthritis. He is accompanied by his sister. Patient Active Problem List Diagnosis Code ??? RA (rheumatoid arthritis) M06.9 ??? Osteopenia M85.80 ??? GERD (gastroesophageal reflux disease) K21.9 ??? Hyperlipidemia E78.5 ??? Depression F32.9 ??? HTN (hypertension) I10 ??? Burning sensation in eye H57.8 ??? Chronic cough R05 ??? SOB (shortness of breath) R06.02 ??? Post-nasal drip R09.82 ??? Cardiomyopathy I42.9 . INTERVAL HISTORY: Received Rituxan infusion today (single infusion protocol/q 4 mo). Reports no peripheral joint swelling, sustained AM joint stiffness or pain. Continues treatment for dry mouth and dry eyes. Continues ot HOLD methotrexate. Still hopeful to receive Rituxan at [facility], convenience for t/family. Reports greatest concern is left shoulder pain and stiffness, thought associated with left rotator cuff tear, noted after fall in December 2015. Seen at local site (PCP) and then to ORTHO. 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 No specific treatment at this time. Planning to follow up with PCP's office related to shoulder pain andlimited ROM. (+) limits restful sleep. Prior steroid injection with benefit. Ongoing unspecified pain medication BID, with modest benefit. Trouble with sleep, long standing. Enjoys spending time withgreat niece and on property, being outdoors. When last seen, reported Neurology consult ([facility]) completed 10/2015. Diagnostics completed and follow up visit planned 11/14/2015. Not available for review. Also seen by ARELIS MICHELE MD. Started on thyroid replacement (synthroid 25 mcg) daily. Participating in PT. 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 Prior sleep study - frequent awakening, but no recommendation for bi/C Pap. Reports no limitations in self-care activities. Denies fever, chills, visual changes, oral ulcers, + dry mouth, painful or difficult swallowing, diarrhea or skin rash. Denies other changes in medical, surgical or social history. Current Outpatient Prescriptions on File Prior to Visit Medication Sig Dispense Refill ??? methylPREDNISolone (MEDROL) 4 mg Tablet Take 4 mg by mouth daily. ??? atorvastatin (LIPITOR) 10 mg Tablet Take 10 mg by mouth daily. ??? carvedilol (COREG) 12.5 mg Tablet ??? losartan (COZAAR) 100 mg Tablet ??? levothyroxine (SYNTHROID) 25 mcg Tablet daily. ??? Budesonide-Formoterol (SYMBICORT) 80-4.5 mcg/actuation HFA Aerosol Inhaler Inhale 2 puffs into the lungs daily. 1 Inhaler 0 ??? clopidogrel (PLAVIX) 75 mg tablet Take 75 mg by mouth daily. ??? metoprolol succinate (TOPROL-XL) 25 mg 24 hr tablet Take 25 mg by mouth daily. ??? aspirin 81 [...] by Each Nare route 2 times daily. (Patient not taking: Reported on 02/07/2016) 16 g 12 ??? venlafaxine (EFFEXOR-XR) 75 mg 24 hr capsule Take 75 mg by mouth daily. ??? Cholecalciferol, Vitamin D3, (VITAMIN D-3) 2,000 unit Cap Take by mouth. ??? lovastatin (MEVACOR) 10 mg tablet Take 10 mg by mouth nightly. ??? VENLAFAXINE HCL (EFFEXOR ORAL) Take 150 mg by mouth daily. ??? cevimeline (EVOXAC) 30 mg capsule Take 30 mg by mouth daily. ??? losartan (COZAAR) 50 mg tablet Take 100 mg by mouth daily. ??? acetaminophen (TYLENOL EXTRA [...] 30 mg capsule 30 mg, PO, QHS No current facility-administered medications on file prior to visit. Allergies Allergen Reactions ??? Calcium kidney stones ??? Levothyroxine ??? Lisinopril Dry cough PHYSICAL EXAMINATION: Vitals: 02/28/16 1351 BP: 109/73 Pulse: 81 Temp: 36.3 ??C (97.3 ??F) TempSrc: Oral SpO2: 99% Weight: 88.9 kg (196 lb) Height: 182.9 cm (6') Constitutional: Pleasant adult male, in no acute distress. HEENT: Normocephalic, atraumatic. Eyes -sclera clear. Oral mucous membranes moist and intact. (-) thyromegaly, anterior cervical lymphadenopathy, parotid or submandibular gland enlargement. Chest: Heart RRR, (-) murmur or extra sounds. Lungs: (-) Wheezing, rales or rhonchi. Neurological: Speech clearly articulated. Gait even and co-ordinated. Grasp bilaterally symmetric 5/5. Musculoskeletal: Muscle mass bilaterally symmetric. Joint Exam: Neck ROM functional, (-) tender. Bilateral shoulder AROM functional, decreased in all planes at LEFT; (-) tender. Elbow ROM full, (-) tender;(-) synovitis, extensor surface nodules, or effusion. Wrist ROM functional; (-) tender; (-) swelling; (-) erythema or warmth. MCPs/PIPs/DIPs: (- ) tender, (-) swelling; (+) CMC thickening. Makes a complete fist and near complete claw. Bilateral knees; (-) effusions, (-) erythema, or warmthl. Bilateral ankle ROM functional, decreased in inversion/eversion (-) tender; (-) swelling. MTPs tender to compression. Skin: Intact; (+) diffuse, pink,sandpapery macular rash cheeks; (-) pustles or papules. Superficial bruising on arms; + nail dystrophy. ASSESSMENT: Rheumatoid arthritis; high risk medication; medication safety monitoring; sicca symptoms. PLAN: ?? Rituxan today. ?? Future Rituxan at [facility] -> pending approval by [facility] staff/co-sig. ?? Rituxan at [facility] in 6 months. ?? Will follow up w/PCP's office to discuss return to [facility]TH[facility] for left shoulder pain. ?? Consider PULM follow up - PFTs if recurrent cough, dyspnea or infection. ?? Continue to HOLD methotrexate and folic acid. ?? Calcium and vitamin D dietary intake and supplementation. ?? Keep scheduled follow up Neurology. ?? Continue treatments for dry mouth and blepharitis. ?? Continue acetaminophen 1000 mg po QAM, prn. ?? Ongoing osteoporosis prevention strategies, dietary intake, supplementation with vitamin D (no calcium due to kidney stones), ongoing weightbearing activity and exercise. ?? Annual influenza vaccine recommended. ?? Follow up in 6 months, sooner for concerns, questions or increased signs/symptoms. 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 documented in this encounter Plan of Treatment Upcoming Encounters Date Type Department Care Team (Late st Contact Info) Description 04/28/2024 12:00 PM EDT [place] [address] documented as of this encounter Visit Diagnoses Diagnosis Rheumatoid arthritis with positive rheumatoid factor, involving unspecified site High risk medication use Encounter for long-term (current) use of other medications Medication monitoring encounter Encounter for therapeutic drug monitoring documented in this encounter Care Teams Invasive Manager Relationship Specialty Start Date End Date Arelis Michele MD [address] [place] [address] PCP - General 11/16/13 06/10/18 documented as of this encounter
--- OUTSIDE RECORDS SUMMARY | 2024-04-06 02:30 | XMS_ITS | Encounter Summary ---
[place] [address] Care Team Providers Care Manager Hospice Name Role Phone Arelis Michele MD Primary Care Provider Encounter Details Date Type Department Care Team (Late st Contact Info) Description 02/09/2016 Telephone [place] [address] Sean Orozco MD [facility] [place] [address] Social History Tobacco Use Types Packs/Day Years [...] encounter Miscellaneous Notes * Telephone Encounter - Sean Orozco MD - 02/09/2016 10:23 AM EDT Called Mr. Ybarra to let him know I reviewed [facility] paperwork. He got MRI brain and MRA neck and MRI L shoulder but no c-spine or plexus. I will order these tests and asked Alethea Bell to call patient to help schedule - hopefully along with another visit to [facility] like rheum 02/27. documented in this encounter Plan of Treatment Upcoming Encounters Date Type Department Care Team (Late st Contact Info) Description 04/28/2024 12:00 PM EDT Appointment [place] [address] documented as of this encounter Visit Diagnoses Diagnosis Brachial neuritis Brachial neuritis or radiculitis nos documented in this encounter Care Teams Manager Hospice Relationship Specialty Start Date End Date Arelis Michele MD [address] [place] [address] PCP - General 11/16/13 06/10/18 documented as of this encounter
--- OUTSIDE RECORDS SUMMARY | 2024-04-06 02:30 | XMS_ITS | Encounter Summary ---
Author Organization [facility] [place] [address] Care Team Providers Care Smash Fixer Name Role Phone Arelis Michele MD Primary Care Provider [phone] Encounter Details Date Type Department Care Team (Late st Contact Info) Description 10/20/2018 12:15 PM EST Office [place] [address] Kandy Espana, RN [facility] [place] [address] Rheumatoid arthritis with positive rheumatoid factor, involving unspecified site; Medication monitoring encounter; High risk medication use Social History Tobacco [...] Sign Reading Time Taken Comments Blood Pressure 137/79 10/20/2018 12:04 PM EST Pulse 86 10/20/2018 12:04 PM EST Temperature 36.4 ??C (97.6 ??F) 10/20/2018 12:[address] Respiratory Rate - - Oxygen Saturation 97% 10/20/2018 12:04 PM EST Inhaled Oxygen Concentration - - Weight 95.3 kg (210 lb) 10/20/2018 12:04 PM EST Height 182.9 cm (6') 10/20/2018 12:04 PM EST Body Mass Index 28.48 10/20/2018 12:04 PM EST documented in this encounter Progress Notes * Kandy Espana, FOREST FIRE EQUIPMENT OPERATOR - 10/20/2018 12:15 PM EST Established Patient Follow Up - Rheumatology Clinic Wesly Ybarra is a 68 y.o.male seen for ongoing evaluation and management of rheumatoid arthritis. He is accompanied by a highway truck driver. Last RHEU OV: 04/2018. INTERVAL HISTORY: When last seen, reported had received Rituxan infusion in January 2018. [facility] (singleinfusion protocol/q 4 mo). Noted at that time, (-) peripheral joint swelling, sustained AM joint stiffness. Continues to HOLD methotrexate. Tylenol 1000 mg 2-3 times daily for joint stiffness and swelling, affecting mainly hands. Not bad now. No interval steroids. Reports many procedures cancelled or postponed due to heart problems. States they do not know yet what diagnosis is. Treated by Dr. Sommers ([facility] Cardiology). Seen by PULM at last month. Multiple recommendations.. Last seen by Arelis Michele MD last week. Treating cough of 3 week duration - viral illness. Cough improved. Appetite fine. Weight a bit higher. Hard ot be active. Short of breath without being more active than regular pace walking. Biggest concern is feeling winded. History of depression - current management by PCP, on effexor and wellbutrin.. (-) limitations in self-care, tires easily with diversional actvities. (-) eye redness, eye pain, oral ulcers, + dry mouth, painful or difficult swallowing, diarrhea or skin rash. (+) easy bruising. Denies other changes in medical, surgical or social history. PHYSICAL EXAMINATION: Vitals: 10/20/18 1204 BP: 137/79 Pulse: 86 Temp: 36.4 ??C (97.6 ??F) TempSrc: Oral SpO2: 97% Weight: 95.3 kg (210 lb) Height: 182.9 cm (6') Constitutional: Pleasant adult male, in no acute distress. HEENT: Normocephalic. Eyes - sclera injected. Oral mucous membranes moist and intact. (-) thyromegaly, anterior cervical lymphadenopathy, parotid or submandibular gland enlargement. Chest: Heart RRR, (-) murmur or extra sounds. (-) CCE. Lungs: (-) wheezing, rales or rhonchi. Neurological: Speech clearly articulated. Gait even and co-ordinated. CN II-XII grossly intact. Musculoskeletal: Muscle mass bilaterally symmetric. Joint Exam: Neck ROM functional, (-) tender. FROM at bilateral upper and lower extremity peripheral joints. (-) tender, (-) synovitis; CMC thickening. Makes a complete fist and near complete claw. Skin: Intact; (+) scattered macular pink/snadpapery lesions on cheeks; (-) pustles or papules. Superficial bruising on arms; + nail dystrophy. ASSESSMENT: Rheumatoid arthritis; inactive; off medications; dyspnea with exertion; history of depression. PLAN: ?? Continue to HOLD methotrexate, folic acid and Rituxan. ?? Calcium and vitamin D dietary intake and supplements. ?? Continue acetaminophen 1000 mg po QAM, prn. ?? Ongoing osteoporosis prevention strategies, dietary intake, supplementation with vitamin D (no calcium due to kidney stones), ongoing weightbearing activity and exercise. ?? Annual influenza vaccine recommended. ?? Reviewed PULM and Cardiology notes. ?? Follow up in 3 months, sooner for concerns, questions or increased signs/symptoms. documented in this encounter Plan of Treatment Upcoming Encounters Date Type Department Care Team (Late st Contact Info) Description 04/28/2024 12:00 PM EDT [place]ointment [place] [phone] documented as of this encounter Visit Diagnoses Diagnosis Rheumatoid arthritis with positive rheumatoid factor, involving unspecified site Medication monitoring encounter Encounter for therapeutic drug monitoring High risk medication use Encounter for long-term (current) use of other medications documented in this encounter Care Teams Smash Fixer Relationship Specialty Start Date End Date Arelis Michele MD [address] [place] [address] PCP - General Family Medicine 08/01/18 02/11/24 documented as of this encounter
--- OUTSIDE RECORDS SUMMARY | 2024-04-06 02:30 | XMS_ITS | Encounter Summary ---
Author Organization [facility] [place] [address] Care Team Providers Care Supervisor Telephone Information Name Role Phone Arelis Michele MD Primary Care Provider [phone] Encounter Details Date Type Department Care Team (Late st Contact Info) Description 04/16/2018 10:15 AM EDT Office [place] [address] Kandy Espana, RN [facility] [place] [address] Rheumatoid arthritis with positive rheumatoid factor, involving [...] Reading Time Taken Comments Blood Pressure 137/79 04/16/2018 10:10 AM EDT Pulse 82 04/16/2018 10:10 AM EDT Temperature 36.6 ??C (97.8 ??F) 04/16/2018 10:10 AM E DT Respiratory Rate - - Oxygen Saturation 99% 04/16/2018 10:10 AM EDT Inhaled Oxygen Concentration - - Weight 92.5 kg (204 lb) 04/16/2018 10:10 AM EDT Height 182.9 cm (6') 04/16/2018 10:10 AM EDT Body Mass Index 27.67 04/16/2018 10:10 AM EDT documented in this encounter Progress Notes * Kandy Espana Joselin, SALES AND EVENTS COORDINATOR - 04/16/2018 10:15 AM EDT Established Patient Follow Up - Rheumatology Clinic Wesly Ybarra is a 67 y.o.male seen for ongoing evaluation and management of rheumatoid arthritis. He is accompanied by a cdl bulk driver. Last seen 07/2017. INTERVAL HISTORY: Received Rituxan infusion in January 2018. [facility] (single infusion protocol/q 4 mo). Notes (-) peripheral joint swelling, sustained AM joint stiffness. Seen in PCP office a couple weeks ago - reporting radiating pain starting in epigastric region. States is being treated with unspecified pill for stomach bacteria. Follow up appointment in 2 more weeks. Wonders if this is heart symptoms. Reports was advised ot seek EMS if recurrence. Reports stressful occurrence - 59 yo cousin in [place] form massive heart attack yesterday. Career and had been home to [place] a couple weeks ago for his Mom's 90th birthday. Continues treatment for dry mouth and dry eyes. Continues to HOLD methotrexate. When last seen reported Most concerning is fatigue. 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 [facility] of [facility] (-) limitations in self-care, tires easily with diversional actvities. (-) eye redness, eye pain, oral ulcers, + dry mouth, painful or difficult swallowing, diarrhea or skin rash. (+) eays bruising. Denies other changes in medical, surgical or social history. PHYSICAL EXAMINATION: Vitals: 04/16/18 1010 BP: 137/79 Pulse: 82 Temp: 36.6 ??C (97.8 ??F) TempSrc: Oral SpO2: 99% Weight: 92.5 kg (204 lb) Height: 182.9 cm (6') Constitutional: Pleasant adult male, in no acute distress. HEENT: Normocephalic, atraumatic. Eyes - sclera injected. Oral mucous membranes moist and intact. (-) thyromegaly, anterior cervical lymphadenopathy, parotid or submandibular gland enlargement. Chest: Heart RRR, (-) murmur or extra sounds. (-) CCE. Lungs: (-) wheezing, rales or rhonchi. Neurological: Speech clearly articulated. Gait even and co-ordinated. Cn II-XII grossly intact. Musculoskeletal: Muscle mass bilaterally symmetric. Joint Exam: Neck ROM functional, (-) tender. Bilateral upper and lower extremity peripheral joints with FROM, shoulder ROM decreased in all planes.(-) tender, (-) synovitis; CMC thickening. Makes a complete fist and near complete claw. Skin: Intact; (+) diffuse, pink,sandpapery macular rash cheeks; (-) pustles or papules. Superficialbruising on arms; + nail dystrophy. ASSESSMENT: Rheumatoid arthritis; high risk medication; medication safety monitoring; sicca symptoms, history of depression, situational stress. PLAN: ?? Rituxan at [facility] at 16 weeks interval from prior. ?? Continue to HOLD methotrexate and folic acid. ?? Urgent contact if joint swelling, sustained joint stiffness or pain. ?? Calcium and vitamin D dietary intake and supplements. ?? Continue treatments for dry mouth and blepharitis. ?? Continue acetaminophen 1000 mg po QAM, prn. ?? Ongoing osteoporosis prevention strategies, dietary intake, supplementation with vitamin D (no calcium due to kidney stones), ongoing weightbearing activity and exercise. ?? Annual influenza vaccine recommended. ?? Immunization UTD. ?? Follow up in 6 months, sooner for concerns, questions or increased signs/symptoms. documented in this encounter Plan of Treatment Upcoming Encounters Date Type Department Care Team (Late st Contact Info) Description 04/28/2024 12:00 PM EDT Appointment [place] [address] documented as of this encounter Visit Diagnoses Diagnosis Rheumatoid arthritis with positive rheumatoid factor, involving unspecified site Medication monitoring encounter Encounter for therapeutic drug monitoring High risk medication use Encounter for long-term (current) use of other medications documented in this encounter Care Teams Supervisor Telephone Information Relationship Specialty Start Date End Date Arelis Michele MD [address] [place] [address] PCP - General 11/16/13 06/10/18 documented as of this encounter
--- OUTSIDE RECORDS SUMMARY | 2024-04-06 02:30 | XMS_ITS | Encounter Summary ---
Author Organization [facility] [place] [address] Care Team Providers Care Grizzly Worker Name Role Phone Arelis Michele MD Primary Care Provider [phone] Reason for Referral * High Dollar Medication (Routine) - Closed Specialty Diagnoses / Procedures Referred By Contac t Referred To Contact Med Infusion Diagnoses Rheumatoid arthritis with positive rheumatoid factor, involving unspecified site Kandy Espana, RN [facility] [place] [address] [facility] Med Infusion [address] [place] [id number] Referral ID Status Reason Start Date Expiration Date V isits Requested Visits Authorized [id number] Closed Consult, Test & Treat 02/20/2016 02/19/2017 1 1 Encounter Details Date Type Department Care Team (Late st Contact Info) Description 02/20/2016 [place] [address] Kandy Espana, RN [facility] [place] [address] Rheumatoid arthritis with positive rheumatoid factor, involving [...] 12:00 PM EDT [place] [address] Scheduled Referrals Name Type Priority Associated Diagnoses Orde r Schedule Auth Request for Infusion Medication Outpatient Referral Routine Rheumatoid arthritis with positive rheumatoid factor, involving unspecified site Ordered: 02/20/2016 documented as of this encounter Visit Diagnoses Diagnosis Rheumatoid arthritis with positive rheumatoid factor, involving unspecified site documented in this encounter Care Teams Grizzly Worker Relationship Specialty Start Date End Date Arelis Michele MD [address] [place] [address] PCP - General 11/16/13 06/10/18 documented as of this encounter
--- OUTSIDE RECORDS SUMMARY | 2024-04-06 02:30 | XMS_ITS | Encounter Summary ---
Author Organization [facility] [place] [address] Care Team Providers Care Manager Retail Name Role Phone Arelis Michele MD Primary Care Provider [phone] Encounter Details Date Type Department Care Team (Late st Contact Info) Description 09/22/2018 Orders [place] [id number] Steven Sloiz MD [facility] [place] [address] Social History Tobacco Use Types Packs/Day Years [...] 12:00 PM EDT [place]oint[place] [address] documented as of this encounter Visit Diagnoses Not on filedocumented in this encounter Care Teams Manager Retail Relationship Specialty Start Date End Date Arelis Michele MD [address] [place], [place] [address] PCP - General Family Medicine 08/01/18 02/11/24 documented as of this encounter
--- OUTSIDE RECORDS SUMMARY | 2024-04-06 02:30 | XMS_ITS | Encounter Summary ---
[place] [address] Care Team Providers Care Synthetic Chemist Name Role Phone Arelis Michele MD Primary Care Provider [phone] Encounter Details Date Type Department Care Team (Late st Contact Info) Description 02/08/2016 External [place] [address] George Ayoub MD [facility] DR NEUROLOGY DEPT [address] Social History Tobacco Use Types Packs/Day Years [...] 12:00 PM EDT [place] [address] documented as of this encounter Procedures Procedure Name Priority Date/Time Associated Diagnosis Comments EMG SCAN Routine 02/07/2016 documented in this encounter Results * Scan Doc: EMG (02/07/2016) George Ayoub MD MEDIA MGR SCAN EXT O RDR/RSLT documented in this encounter Visit Diagnoses Not on filedocumented in this encounter Care Teams Synthetic Chemist Relationship Specialty Start Date End Date Arelis Michele MD [address] [place] [address] PCP - General 11/16/13 06/10/18 documented as of this encounter
--- OUTSIDE RECORDS SUMMARY | 2024-04-06 02:30 | XMS_ITS | Encounter Summary ---
Author Organization [facility] [place] [address] Care Team Providers Care Carpenter Maintenance Name Role Phone Arelis Michele MD Primary Care Provider [phone] Encounter Details Date Type Department Care Team (Late st Contact Info) Description 01/07/2018 1:00 PM EDT Office [place] [address] Kandy Espana, RN [facility] [place] [address] Rheumatoid arthritis with positive rheumatoid factor, involving unspecified site; Medication monitoring encounter; High risk medication use; Situational stress; History of depression Social History Tobacco Use Types Packs/Day Years [...] Reading Time Taken Comments Blood Pressure 150/85 01/07/2018 12:56 PM EDT Pulse 99 01/07/2018 12:56 PM EDT Temperature 36.8 ??C (98.2 ??F) 01/07/2018 12:56 PM E DT Respiratory Rate - - Oxygen Saturation 95% 01/07/2018 12:56 PM EDT Inhaled Oxygen Concentration - - Weight 94.3 kg (208 lb) 01/07/2018 12:56 PM EDT Height 182.9 cm (6') 01/07/2018 12:56 PM EDT Body Mass Index 28.21 01/07/2018 12:56 PM EDT documented in this encounter Progress Notes * Kandy Espana, SUBSTANCE ABUSE SERVICES DIRECTOR - 01/07/2018 1:00 PM EDT Established Patient Follow Up - Rheumatology Clinic Wesly Ybarra is a 67 y.o.male seen for ongoing evaluation and management of rheumatoid arthritis. He is accompanied by a gravel truck driver. Last seen 07/2017. INTERVAL HISTORY: Received Rituxan infusion was October 2017, note not available for review. [facility] (single infusion protocol/q 4 mo). Reports (-) peripheral joint swelling, sustained AM joint stiffness.Trouble swallowing, throat culture completed, uncertain results. Thought maybe associated with thyroid disease. Continues treatment for dry mouth and dry eyes. Continues to HOLD methotrexate. Multiple concerns today. Most concerning is fatigue, (-) energy, non-restorative sleep and situational stress (housing issues/lives with brother who is looking at senior housing options). Reports dyspnea with exertion, headache, dry mouth, dry and itchy eyes, nose bleeds, dysphagia, urinary frequency. Prior evaluation in [facility] Dr. Torres. Uncertain when last seen. Prior OPHTH treatment for bleph aritis. No longer using meds. Not aware of environmental or seasonal allergies. No OTC meds for allergies. History of depression - current management by PCP, but feeling more discouraged about health. Sometimes thinks about ending his life, but no current suicidal ideation or plan. Reports is being evaluated for thyroid disease. Recent labs completed and not available for review. When last seen, reported treatment for CAP in late May 2017. ABX and steroid taper, with complete resolution of fever, cough and fatigue. Was spending as imuch time as possible at camp. Huntingwith family. Picks up niece and nephew from school once weekly. 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 Prior sleep study - frequent awakening, but no recommendation for bi/C Pap. No limitations in self-care, tires easily with diversional actvities. No fever, chills, visual changes, oral ulcers, + dry mouth, painful or difficult swallowing, diarrhea or skin rash. Denies other changes in medical, surgical or social history. PHYSICAL EXAMINATION: Vitals: 01/07/18 1256 BP: 150/85 Pulse: 99 Temp: 36.8 ??C (98.2 ??F) TempSrc: Oral SpO2: 95% Weight: 94.3 kg (208 lb) Height: 182.9 cm (6') Constitutional: Pleasant adult male, in no acute distress. HEENT: Normocephalic, atraumatic. Eyes - sclera injected. Oral mucous membranes moist and intact. (-) thyromegaly, anterior cervical lymphadenopathy, parotid or submandibular gland enlargement. Chest: Heart RRR, (-) murmur or extra sounds. Lungs: (-) wheezing, rales or rhonchi. Neurological: Speech clearly articulated. Gait even and co-ordinated. Cn II-XII grossly intact. Musculoskeletal: Muscle mass bilaterally symmetric. Joint Exam: Neck ROM functional, (-) tender. Bilateral upper and lower extremity peripheral joints with FROM, (-) tender, (-) synovitis; Shoulder (+) decreased internal rotation/ABD. CMC thickening. Makes a complete fist and near complete claw. Skin: Intact; (+) diffuse, pink,sandpapery macular rash cheeks; (-) pustles or papules. Superficialbruising on arms; + nail dystrophy. ASSESSMENT: Rheumatoid arthritis; high risk medication; medication safety monitoring; sicca symptoms, history of depression, situational stress. PLAN: ?? Rituxan at [facility] in 6 months. ?? Continue to HOLD methotrexate and folic acid. ?? Urgent contact if joint swelling, sustained joint stiffness or pain. ?? Extended discussion related to list of symptoms -> will see PCP in follow to review outcome throat culture and plan for thyroid disease, history of depression and situational stress. ?? Consider PULM follow up - PFTs if recurrent cough, dyspnea or infection -> [place]SH[place] - will discuss with PCP. ?? Calcium and vitamin D dietary intake [...] 12:00 PM EDT Appointment [place] [address] documented as of this encounter Visit Diagnoses Diagnosis Rheumatoid arthritis with positive rheumatoid factor, involving unspecified site Medication monitoring encounter Encounter for therapeutic drug monitoring High risk medication use Encounter for long-term (current) use of other medications Situational stress Other psychological or physical stress, not elsewhere classified History of depression Personal history of other mental disorder documented in this encounter Care Teams Carpenter Maintenance Relationship Specialty Start Date End Date Arelis Michele MD [address] [place] [address] PCP - General 11/16/13 06/10/18 documented as of this encounter
--- OUTSIDE RECORDS SUMMARY | 2024-04-06 02:30 | XMS_ITS | Encounter Summary ---
[place] [address] Care Team Providers Care Press Clipper Name Role Phone Arelis Michele MD Primary Care Provider [phone] Reason for Visit * Reason Onset Date Comments Other 06/15/2016 Rituxan infusion s Encounter Details Date Type Department Care Team (Late st Contact Info) Description 06/15/2016 Telephone [place] [phone] Guerline Taylor LPN Other (Rituxan infusions) Social History Tobacco Use Types Packs/Day Years [...] encounter Miscellaneous Notes * Telephone Encounter - Guerline Taylor LPN - 06/15/2016 11:31 AM EDT Pt phones to request to have his infusions to be done at [facility]. Could you send orders for Rituxan. Fax is [phone] and phone is [phone] documented in this encounter Plan of Treatment Upcoming Encounters Date Type Department Care Team (Late st Contact Info) Description 04/28/2024 12:00 PM EDT Appointment [place] [address] documented as of this encounter Visit Diagnoses Not on filedocumented in this encounter Care Teams Press Clipper Relationship Specialty Start Date End Date Arelis Michele MD [address] [place] [address] PCP - General 11/16/13 06/10/18 documented as of this encounter
--- OUTSIDE RECORDS SUMMARY | 2024-04-06 02:30 | XMS_ITS | Encounter Summary ---
Author Organization [facility] [place] [address] Care Team Providers Care Biology Instructor Name Role Phone Andrew White DO Primary Care Provider Encounter Details Date Type Department Care Team (Late st Contact Info) Description 07/08/2018 Telephone [place] [address] Bonnie Cary Social History Tobacco Use Types Packs/Day Years [...] encounter Miscellaneous Notes * Telephone Encounter - Bonnie Cary - 07/08/2018 11:10 AM EST Spoke with patient, scheduled for new patient yared. Mailed itn w/ new pt packet. pft order pended. documented in this encounter Plan of Treatment Upcoming Encounters Date Type Department Care Team (Late st Contact Info) Description 04/28/2024 12:00 PM EDT Appointment [place] [address] documented as of this encounter Visit Diagnoses Not on filedocumented in this encounter Care Teams Biology Instructor Relationship Specialty Start Date End Date Andrew White DO [address] [place] [address] PCP - General Family Medicine 06/11/18 07/31/18 documented as of this encounter
--- OUTSIDE RECORDS SUMMARY | 2024-04-06 02:30 | XMS_ITS | Encounter Summary ---
Author Organization [facility] [place] [address] Care Team Providers Care Vinyl Hanger Name Role Phone Arelis Michele MD Primary Care Provider [phone] Encounter Details Date Type Department Care Team (Late Contact Info) Description 06/19/2017 Tele[place] [address] Guerline Taylor LPN Social History Tobacco Use Types Packs/Day Years [...] Telephone Encounter - Guerline Taylor LPN - 06/19/2017 11:40 AM EDT RTC to infusion who reports that Wesly has a bad cold and sore throat. The infusion suite will givehim his rituxan next week. documented in this encounter Plan of Treatment Upcoming Encounters Date Type Department Care Team (Late st Contact Info) Description 04/28/2024 12:00 PM EDT [place] [address] documented as of this encounter Visit Diagnoses Not on filedocumented in this encounter Care Teams Vinyl Hanger Relationship Specialty Start Date End Date Arelis Michele MD [address] [place] [address] PCP - General 11/16/13 06/10/18 documented as of this encounter
--- OUTSIDE RECORDS SUMMARY | 2024-04-06 02:30 | XMS_ITS | Encounter Summary ---
Author Organization [facility] [place] [address] Care Team Providers Care Supportive Employment Case Manager Name Role Phone Arelis Michele MD Primary Care Provider [phone] Reason for Visit * Reason Comments Follow-up Encounter Details Date Type Department Care Team (Late st Contact Info) Description 09/05/2018 10:00 AM EST [place] [address] Steven Soliz MD [facility] [place] [address] Diaphragm paralysis; ZEPEDA (dyspnea on exertion) Social [...] Sign Reading Time Taken Comments Blood Pressure 125/67 09/05/2018 10:07 AM EST Pulse 87 09/05/2018 10:07 AM EST Temperature - - Respiratory Rate - - Oxygen Saturation 96% 09/05/2018 10:07 AM EST Inhaled Oxygen Concentration - - Weight 90.7 kg (200 lb) 09/05/2018 10:07 AM EST Height 182.9 cm (6') 09/05/2018 10:07 AM EST Body Mass Index 27.12 09/05/2018 10:07 AM EST documented in this encounter Progress Notes * Steven Soliz MD - 09/05/2018 10:00 AM EST Images from the original note were not included. OUTPATIENT PULMONOLOGY FOLLOW-UP NOTE SECTION OF PULMONARY/CRITICAL CARE MEDICINE PRIMARY CARE PHYSICIAN: Arelis Michele MD Chief Complaint: I'm doing about the same Subjective: Mr. Wesly Ybarra is a 67 y.o. man who I last saw on 08/01/18 for initial outpatient consultation, who returns today for follow-up of chronic dyspnea on exertion. Please see my note from 08/01/18 for full details regarding his HPI and assessment from that date. In brief, we discussed several potential contributors to his dyspnea. This included cardiac considerations (cardiomyopathy and elevated LV filling pressures), question of aspiration given globus sensation/dysphagia to solid foods, and several pulmonary considerations. From the latter, we discussed his chronically elevated R hemidiaphragm with restricted spirometry and significant decline in FVC (20%) in the supine position, we discussed the possibility of ILD in the setting of his RA and Rituxan history (but I was reassured by his stable FVC, normal diffusing capacity, and lack of decline in SpO2 with ambulation), we discussed the possibility for large (EDAC/TM) and small airway (bronchiectasis) disease, and we discussed the still ambiguous question as to whether he had asthma (historically labeled with reactive airways disease). Our plan from the 08/01/18 encounter included obtaining a CBC (normal WBC, normal Hb and eosinophilcount of 400), IgE (36), and RAST (negative). I increased his Symbicort to BID dosing from QD with plans to discontinue if no meaningful improvement in symptoms with dose correction. I ordered a fluor oscopic sniff test which was performed at [facility] on 08/13 demonstrated marked decrease in activitysuggestive of paresis to the radiologist. We discussed confering with his Tapper Shank regarding a time limited trial off Coreg to see if there were any meaningful improvements in exercise tolerance.Lastly, his EGD was cancelled by Anesthesiology because (per the patient) they said my heart couldn't stand it. Since being seen last, no improvement on Symbicort and he is now back to daily dosing (only used BID for about two and a half week due to nasal congestion). Reports lots of wheezing and occasional chest tightness. He has albuterol at home but it does not help his symptoms. He remains on [facility]' Cardiology this coming Saturday. 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 coughing and globus sensation with solid foods. Review of Systems: A 12 point ROS [...] Family History: No known FH lung disease ?? 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 male, [...] Normal mood and affect. Labs: None today ?? PFTS: DATE FVC FEV1 FEV1/FVC DLCO TLC RV HEALTH INSPECTOR? 06/16/13 70% 73% 77% 91% -- -- [...] after walking 375 feet on room air ?? Imaging: (Images personally reviewed) 08/13/18 Fluoroscopic Diaphragm Study ([facility]): Marked decreased movement of the right hemidiaphragm suggesting paresis 06/08/15 CXR: No acute disease and no significant change since the previous study. ?? 06/16/13 CXR: No significant interval change. Specifically no pulmonary abnormalities. Film and interpretation reviewed by the attending ?? 08/2014 TTE: LVEf 45%, segmental wall hypokinesis, no sig. Valve disease ?? Assessment: Wesly Ybarra is a 67 y.o. man (never-smoker) who presents to the pulmonology clinic as an outpatient for routinely scheduled follow-up of chronic dyspnea on exertion (with more significant decline in symptom control over the last several months). At the time of his 08/01/18 consultation with me, we made several pulmonary and cardiovascular considerations for his dyspnea. 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 From this standpoint, we discussed the role of plication. It's unclear if he'd be a surgical candidate from a co-morbidity standpoint, and we'd want to still do our due diligence to ensure there are no other major identifiable contributors to his dyspnea before pursuing this (see remainder of work-up as noted below). There are several case reports regarding the use of Theophylline to aid in diaphragmatic contractility. Given the question of paresis, this may be a worthwhile avenue to pursue. Also with his chronic cervical spine issues, will obtain a CT c-spine. Bette and colleagues noted in their study that the benefit did not correlate with serum levels, so will initiate at a low dose, perhaps increase to 150 mg/d and likely not push the dose any higher. In terms of the question of asthma, I appreciate he has a mild eosinophilia but his prior methacholine testing was negative and he has not garnered any obvious benefit from inhaler therapies. I'm therefore more apt to start de-escalating some of these therapies. In the context of his RA and prior Rituxan history, I do not feel he has evidence of ILD thus far givenhis normal diffusing capacity, lack of evidence of diffusion limitation during ambulation, and stable chest radiographs. With that said, although he may not have parenchymal manifestations, small andlarge airway disease (such as tracheobronchomalacia or excessive dynamic airway collapse) remain onthe differential given the nature of his symptomatology and this can be explored further with a dynamic airway protocol CT. Lastly, he has pretty clear evidence of solid food dysphagia which could contribute to chronic aspiration. We'd certainly be looking for any evidence of such on his CT, but weshould also move forward with a modified barium swallow. His EGD is on hold due to perioperative clearance from anesthesia, and it's unclear if this will be achievable in the future or not. Lastly, Wen recognize that those on beta-blockade can experience exertional intolerance and this would be one additional avenue to consider in regards to his Coreg. Recommendations: ?? Obtain CT chest dynamic airway protocol at ?? Obtain CT cervical spine w/ contrast at ?? Obtain modified barium swallow at [facility] ?? Empiric trial of Igor 100 mg QD (for diaphragm) ?? Repeat spirometry at his next appointment ?? Recommend trial of discontinuing Symbicort ?? Will re-discuss Thoracic Surgery referral for plication pending above results ?? If his Tapper Shank is agreeable, recommend time limited trial off beta-blockade ?? Note to be sent to Arelis Michele MD and Uriah Sommers MD ?? Follow-up with me in 12 weeks Closest hospital to home: [facility] (lives 1 hour 15 minutes from ) Steven Soliz MD, 09/05/2018, 1:22 PM Pulmonary & Critical Care Pager: [phone] documented in this encounter Plan of Treatment Upcoming Encounters Date Type Department Care Team (Late st Contact Info) Description 04/28/2024 12:00 PM EDT [place]ment [place] [address] documented as of this encounter Procedures Procedure Name Priority Date/Time Associated Diagnosis Comments CREATININE Routine 09/05/2018 11:35 AM EST Diaphragm paralysis BUN Routine 09/05/2018 11:35 AM EST Diaphragm paralysis documented in this encounter Results * BUN (09/05/2018 11:35 AM EST) Blood Urea Nitrogen 17 10 - 20 mg/dL [facility] Blood specimen (specimen) 09/05/2018 11:35 AM EST 09/05/2018 11:40 AM EST Narrative Resulting Agency Comment Spec In Lab Steven Soliz MD CHEMISTRY ORDERABLES Performing Organization Address [facility] Co de Phone Number [facility] [place] [address] * Creatinine (09/05/2018 11:35 AM EST) Creatinine 1.11 0.80 - 1.50 mg/dL [facility] Est Glomerular Filtration Rate 67 >=60 mL/min/1.7 3 m?? [facility] Comment: The eGFR was calculated using the CKD-EPI equation. As with all creatinine based estimates of kidney function, eGFR values calculated with the CKD-EPI equation are not accurate in patients with acute kidney failure, extremes of body mass or the acutely ill. http://[employer]/Beautifiednkf eGFR 78 >=60 mL/min/1.7 3 m?? [facility] Comment: The eGFR was calculated using the CKD-EPI equation. As with all creatinine based estimates of kidney function, eGFR values calculated with the CKD-EPI equation are not accurate in patients with acute kidney failure, extremes of body mass or the acutely ill. http://[employer]/DHMCnkf Blood specimen (specimen) 09/05/2018 11:35 AM EST 09/05/2018 11:40 AM EST Narrative Resulting Agency Comment Spec In Lab Steven Soliz MD CHEMISTRY ORDERABLES Performing Organization Address [facility] Co de Phone Number [facility] [place] [address] documented in this encounter Visit Diagnoses Diagnosis Diaphragm paralysis Disorders of diaphragm ZEPEDA (dyspnea on exertion) Other dyspnea and respiratory abnormality documented in this encounter Care Teams Supportive Employment Case Manager Relationship Specialty Start Date End Date Arelis Michele MD [address] [place] [address] PCP - General Family Medicine 08/01/18 02/11/24 documented as of this encounter
--- OUTSIDE RECORDS SUMMARY | 2024-04-06 02:30 | XMS_ITS | Encounter Summary ---
[place] [address] Care Team Providers Care Retail Sales Representative Name Role Phone Arelis Michele MD Primary Care Provider [phone] Encounter Details Date Type Department Care Team (Late st Contact Info) Description 12/30/2015 - 12/30/2015 11:59 PM EDT Hospital Encounter [place] [address] [address] Neha Temporary Pain Discharge Disposition: Home Social History Tobacco Use [...] Sig Dispensed Refills Start Date End Date carvedilol (COREG) 12.5 mg Tablet Take 12.5 mg by mouth daily. 12/26/2015 aspirin 81 mg EC tablet Take 81 mg by mouth daily. fluticasone (FLONASE) 50 mcg/actuation nasal sprayIndications:Post-heather al drip 1 spray by Each Nare route [...] Med - OTC mositurizing eye drops 11/02/2010 losartan (COZAAR) 100 mg Tablet 12/26/2015 07/22/2017 levothyroxine (SYNTHROID) 25 mcg Tablet daily. 10/13/2015 01/07/2018 Budesonide-Formoterol (SYMBICORT) 80-4.5 mcg/actuation HFA Aerosol Inhaler Inhale 2 puffs into the lungs daily. 1 Inhaler 0 03/15/2015 08/01/2018 clopidogrel (PLAVIX) 75 mg tablet Take 75 mg by mouth daily. 01/08/2019 metoprolol succinate (TOPROL-XL) 25 mg 24 hr tablet Take 25 mg by mouth daily. 08/01/2018 terazosin (HYTRIN) 1 mg capsule Take 1 mg by mouth nightly. 06/05/2022 albuterol (PROVENTIL HFA;VENTOLIN HFA) 90 mcg/actuation inhaler Inhale 2 puffs into the lungs every 4 hours as needed. Use with spacer 12/08/2021 venlafaxine (EFFEXOR-XR) 75 mg 24 hr capsule Take 75 mg by mouth daily. 10/20/2018 lovastatin (MEVACOR) 10 mg tablet Take 10 mg by mouth nightly. 03/21/2019 VENLAFAXINE HCL (EFFEXOR ORAL) Take 150 mg by mouth daily. 07/22/2017 cevimeline (EVOXAC) 30 mg capsule Take 30 mg by mouth daily. 01/08/2019 losartan (COZAAR) 50 mg tablet Take 100 mg by mouth daily. 07/22/2017 temazepam (RESTORIL) 30 mg capsule 30 mg, PO, QHS 11/02/2010 06/05/2022 documented as of this encounter Plan of Treatment Upcoming Encounters Date Type Department Care Team (Late st Contact Info) Description 04/28/2024 12:00 PM EDT [place] [address] documented as of this encounter Procedures Procedure Name Priority Date/Time Associated Diagnosis Comments FILM LIBRARY STORAGE ONLY MR UPPER EXTREMITY Routine 12/30/2015 12:00 AM EDT Pain documented in this encounter Results * Film Library- Storage only MR Upper Extremity (12/30/2015 12:00 AM EDT) Narrative [facility] MO - 02/08/2016 2:11 PM EDT This exam is for storage only and is auto-finalizing. Dr Sanchez [facility] FILM LIBRARY ORD ERABLES Performing Organization Address City/State/[facility] Co de Phone Number [place], [place] documented in this encounter Visit Diagnoses Diagnosis Pain Generalized pain documented in this encounter Care Teams Retail Sales Representative Relationship Specialty Start Date End Date Arelis Michele MD [address] [place] [address] PCP - General 11/16/13 06/10/18 documented as of this encounter
--- OUTSIDE RECORDS SUMMARY | 2024-04-06 02:30 | XMS_ITS | Encounter Summary ---
Author Organization [facility] [place] [facility] [place] [address] Care Team Providers Care Radio Announcer Name Role Phone Arelis Michele MD Primary Care Provider [phone] Encounter Details Date Type Department Care Team (Late st Contact Info) Description 02/07/2016 9:00 AM EDT Procedure [place] [address] George Ayoub MD [facility] [place] [address] Roz Orozco MD [facility] [place] [address] Brachial neuritis Social History Tobacco Use Types Packs/Day Years [...] Sign Reading Time Taken Comments Blood Pressure 129/82 02/07/2016 8:32 AM EDT Pulse 69 02/07/2016 8:32 AM EDT Temperature - - Respiratory Rate - - Oxygen Saturation - - Inhaled Oxygen Concentration - - Weight 89.8 kg (198 lb) 02/07/2016 8:32 AM EDT Height 182.9 cm (6') 02/07/2016 8:32 AM EDT Body Mass Index 26.85 02/07/2016 8:32 AM EDT documented in this encounter Patient Instructions * Patient Instructions* Roz Orozco MD - 02/07/2016 9:53 AM EDT Most likely you have two problems. The initial problem that started last May was most likely something called brachial neuritis, or Parsonage- Salmon syndrome, and may be related to your underlying rheumatoid arthritis. The more recent pain in the shoulder that started after a fall and responded to an injection was likely a separate orthopedic problem such as a rotator cuff tear or tendonitis. Please sign a release form and I will get a copy of your MRIs to look at. This should improve on its own after a year or two, but it is important to maintain range of motionand prevent additional injury to the shoulder. Talk to your orthopedist or primary doctor about continugin physical therapy. Come back in 4-6 months for a follow-up, but call me sooner if anything worsens. documented in this encounter Progress Notes * Roz Orozco MD - 02/07/2016 10:00 AM EDT NEUROLOGY CLINIC [facility] [place] [address] Facsimile: 02/07/2016 Neuromuscular Consultation Patient name: Wesly Ybarra Date of : 1950 Referring provider: Foster Dumas PA EMERGENCY DEPT [address] [place] [address] [place] [address] Wesly Ybarra is a 65 y.o. y.o. male who is a patient of ARELIS MICHELE MD referred by Wesly Ybarra for evaluation of scapular winging I have reviewed the available notes and records. HPI: Patient is RH and has a hx of RA on Rituxan who reports that last May he develop atraumatic left shoulder pain. He had some neck soreness as well. He also noticed paresthesias in the lateral shoulder and the trunk in the mid- axillary line going down his side. Both pain and paresthesias could radiate down to the elbow on the dorsal arm. He developed some weakness as well in the left arm, buthe cannot say distally or proximally. Pain limited his functional ability but was not terrible or clearly neuropathic - achy in quality. He reports he had a bad pneumonia last April preceding the onset of these symptoms, though his rheum notes report a pneumonia later in the fall, so I am not clear about this timing. He also had a flu shot sometime in the fall, but again I am not sure the timing. This past December he fell. A couple of weeks later he develop a new shoulder pain that was very debilitating, and he felt like he could not even lift his shoulder. [facility] sort, along with some oxycodone (which he stopped taking last week), and that shoulder pain has almost resolved. He denies neck or b/b recently. He had some falls while on oxycodone but now that he is off denies balance problems. Right arm and both legs are fine. Unfortunately, I do not have any imaging or labs, though supposedly he got MRI of the brain, neck, and shoulder. I do not have ortho notes or neurology notes. He has not had EMG. PMH: Past medical history, including problem list, past medical conditions, family history, social history, allergies, surgical history, and current medications were reviewed with the patient and updated as appropriate in the electronic record. Other than those included in the HPI above, pertinent p ositives and negatives include no FH neuropathy. He has RA as mentioned. He denies DM though I do not see documentation to this effect. 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 ROS: A 14-point review of systems was conducted, and pertinant positives and negatives recorded in the HPI. He denies rashes. Other than those points recorded in the HPI, all system reviewed are negative. Objective: height is 182.9 cm (6') and weight is 89.8 kg (198 lb). His blood pressure is 129/82 and his pulse is 69. Exam reveals the following: Pleasant man, NAD He has what sounds like upper airway congestion and a raspy voice, but he says this is normal for him. Multiple small ulcerations and bruising on arms from recent falls. Full active and passive neck and left shoulder ROM. He has vague nonlocalized left shoulder pain with passive movements in all directions ant no cloear point tenderness. On neurologic exam, MS and CN are unremarkable. He has scapular winging on the left with arms outstretched. He has possible mild left rhomboid weakness. He has very mild weakness with abduction (supraspinatus) and external rotation (infraspinatus). Deltoid is 4/5. Supination is 4/5. IOs, APB, FE, thumb extension, FDP 2-5, WE, WF, triceps are all strong. Biceps is 4+/5. Right side is strong, as are legs. He has decreased sensation to LT in axillary nerve distribution. He has evoked paresthesias of the left flank coming down from the axilla, and also the left posterior scapula area. His reflexes are mildly increased with spread at the patellas and 2+ in the arms though symmetric Gait is normal. I do not have any prior imaging or labs. EMG/NCS today shows the following (see scanned document for details): Normal left arm NCS includingradial sensory and radial and median motor. 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 Assessment and Plan: 1. Brachial neuritis (Parsonage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) - atraumatic onset of left shoulder pain accompanied by numbness and weakness including scapular winging in a patient with RA is most consistent with this dx. I suspect recent acute worsening of left shoulder pain was from a superimposed orthopedic problem, but will defer to his orthopedist. I will obtain more information concerning his recent imaging to ensure this is not polyradicular. It may be prudent to imaging the plexus if there is worsening or any concern for mass, but this seemsunlikely given involvement of upper plexus. I will review images and make a decision. Given that 9 months have elapsed and [...] I would have to revisit the diagnosis. I will plan to see him back in 4-6 months but will call if anything changes after reviewing his records. Thank you for this consult, and please do not hesitate to contact me with questions. ROZ OROZCO MD 02/07/2016 Neurology Staff Note I have reviewed the above fellows's history during the visit and I agree with the details as written. My physical examination confirms the fellow's findings. The assessment and plan were formulated in discussion with me at the time of the visit and I agree with them as documented. I participated inthe EDX studies. George Ayoub MD documented in this encounter Plan of Treatment Upcoming Encounters Date Type Department Care Team (Late st Contact Info) Description 04/28/2024 12:00 PM EDT Appointment [place] [address] documented as of this encounter Visit Diagnoses Diagnosis Brachial neuritis Brachial neuritis or radiculitis nos documented in this encounter Care Teams Radio Announcer Relationship Specialty Start Date End Date Arelis Michele MD [address] [place] [address] PCP - General 11/16/13 06/10/18 documented as of this encounter
--- OUTSIDE RECORDS SUMMARY | 2024-04-06 02:30 | XMS_ITS | Encounter Summary ---
Author Organization [facility] [place] [address] Care Team Providers Care Molasses Feed Mixer Name Role Phone ChristopherAndrew fournier DO Primary Care Provider [phone] Encounter Details Date Type Department Care Team (Late st Contact Info) Description 07/31/2018 Orders [place] [address] Steven Soliz MD [facility] [place] [address] SOB (shortness of breath) Social History Tobacco Use Types Packs/Day Years [...] PM EDT App[place] [phone] documented as of this encounter Results * Pulmonary Function Testing (08/01/2018 11:59 PM EST) Narrative Richard Reina MD - 08/01/2018 11:59 PM EST Richard Reina MD ? 08/06/2018 ??3:42 PM A. SPIROMETRY(Sitting position) reveals a moderate (59-50%) reduction in the FVC and a normal FEV1/FVC ratio. B. SPIROMETRY(supine position) reveals a sever (<50%) reduction in the FVC and a normal FEV1/FVC ratio. C. DIFFUSING CAPACITY: The adjusted diffusing capacity(DLCO) for hemoglobin is within normal limits (>LLN-120%) D. PULSE OXIMETRY: Resting oxyhemoglobin saturation is normal. Resting oximetry was assessed while the patient was breathing room air. Oxyhemoglobin saturation during ambulation was reduced. Ambulatory oximetry was assessed while the patient was breathing room air. ??The lowest saturation was 91%. E. FINAL IMPRESSION: The normal DLCO in conjunction with RVD suggests that a ??Process not involving the lung parenchyma (chest wall/pleural disease or muscle weakness) is present. Lung volume testing may provide clarification. There was a significant deterioration in FEV1 & FVC in supine position in comparison to a sitting position which may indicate presence of diaphragmatic weakness. Clinical correlation is required. Normal resting pulse oximtery. Significant desaturation on ambulation. Steven Soliz MD PFT ORDERABLES documented in this encounter Visit Diagnoses Diagnosis SOB (shortness of breath) Shortness of breath SOB (shortness of breath) Shortness of breath documented in this encounter Care Teams Molasses Feed Mixer Relationship Specialty Start Date End Date Andrew White DO [address] [place] [address] PCP - General Family Medicine 06/11/18 07/31/18 documented as of this encounter
--- OUTSIDE RECORDS SUMMARY | 2024-04-06 02:30 | XMS_ITS | Encounter Summary ---
[place] [address] Care Team Providers Care Lever Miller Name Role Phone Arelis Michele MD Primary Care Provider [phone] Encounter Details Date Type Department Care Team (Late st Contact Info) Description 10/08/2018 Telephone [place] [id number] Ramona Mcmahon Social History Tobacco Use Types Packs/Day Years [...] encounter Miscellaneous Notes * Telephone Encounter - Ramona Mcmahon - 10/08/2018 10:47 AM EST Wesly Ybarra [id number] Diagnosis: screening 1. Have you ever had a colonoscopy before? [x] YES [] NO If Yes, Date of Last [place]: If yes, did you have any problems with the procedure? [] YES [] NO Explain: 2004 in [facility] What type of sedation was used: 2. Do you take any Blood Thinners? [] YES [x] NO If Yes, type: 3. Do you have a Pacemaker or Defibrillator device? [] YES [x] NO If Yes send [employer] message to [facility] ENDO DEVICE CHECK 4. Are you a diabetic? [] YES [x] NO If yes, controlled by meds or diet? 5. Do you have any Allergies to Eggs, Latex or Medications? [x] YES [] NO If Yes, what:___see [facility] 6. Do you take any Oral Iron Supplements (Including multi vitamins)? [] YES [x] NO 7. Do you have a history of three or more abdominal surgeries? [] YES [x] NO 8. Have you had a problem with sedation or anesthesia? [x] YES [] NO n/v 9. Do you have a c-pap machine or oxygen tank? [] C-PAP [] Oxygen [x] NO 10. Do you take prescription narcotic pain medications? [] YES [x] NO 11. You must have a responsible libertarian stay at the facility during your procedure and drive you home? [x] YES 12. Is there any other information you would like to give us to aid in scheduling? Height: 6 Weight: 214 BMI: ____ Age:67 y.o. documented in this encounter Plan of Treatment Upcoming Encounters Date Type Department Care Team (Late st Contact Info) Description 04/28/2024 12:00 PM EDT Appointment [place] [address] documented as of this encounter Visit Diagnoses Not on filedocumented in this encounter Care Teams Lever Miller Relationship Specialty Start Date End Date Arelis Michele MD [address] [place] [address] PCP - General Family Medicine 08/01/18 02/11/24 documented as of this encounter
--- OUTSIDE RECORDS SUMMARY | 2024-04-06 02:30 | XMS_ITS | Encounter Summary ---
[place] [address] Care Team Providers Care Electromechanical Assembler Name Role Phone Arelis Michele MD Primary Care Provider [phone] Encounter Details Date Type Department Care Team (Late st Contact Info) Description 09/24/2018 [place] [address] Monty Green, RN Social History Tobacco Use Types Packs/Day [...] 12:00 PM EDT [place] [address] documented as of this encounter Visit Diagnoses Not on filedocumented in this encounter Care Teams Electromechanical Assembler Relationship Specialty Start Date End Date Arelis Michele MD [address] [place] [address] PCP - General Family Medicine 08/01/18 02/11/24 documented as of this encounter
--- OUTSIDE RECORDS SUMMARY | 2024-04-06 02:30 | XMS_ITS | Encounter Summary ---
Author Organization [facility] [place] [address] Care Team Providers Care Er Manager Name Role Phone Arelis Michele MD Primary Care Provider [phone] Encounter Details Date Type Department Care Team (Late st Contact Info) Description 07/22/2017 10:15 AM EST Office [place] [address] Kandy Espana, RN [facility] [address] [place] [address] Rheumatoid arthritis with positive rheumatoid factor, involving unspecified site; Medication monitoring encounter; Parsonage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 Social History Tobacco Use Types Packs/Day Years [...] Sign Reading Time Taken Comments Blood Pressure 144/85 07/22/2017 10:06 AM EST Pulse 89 07/22/2017 10:06 AM EST Temperature - - Respiratory Rate 18 07/22/2017 10:06 AM EST Oxygen Saturation 98% 07/22/2017 10:06 AM EST Inhaled Oxygen Concentration - - Weight 89.8 kg (198 lb) 07/22/2017 10:06 AM EST Height 182.9 cm (6') 07/22/2017 10:06 AM EST Body Mass Index 26.85 07/22/2017 10:06 AM EST documented in this encounter Progress Notes * Kandy Espana, DISTRIBUTOR SALES MANAGER - 07/22/2017 10:15 AM EST Established Patient Follow Up - Rheumatology Clinic Wesly Ybarra is a 66 y.o.male seen for ongoing evaluation and management of rheumatoid arthritis. He is unaccompanied. Patient Active Problem List Diagnosis Code ??? RA (rheumatoid arthritis) M06.9 ??? Osteopenia M85.80 ??? GERD (gastroesophageal reflux disease) K21.9 ??? Hyperlipidemia E78.5 ??? Depression F32.9 ??? HTN (hypertension) I10 ??? Burning sensation in eye H57.8 ??? Chronic cough R05 ??? SOB (shortness of breath) R06.02 ??? Post-nasal drip R09.82 ??? Cardiomyopathy I42.9 . INTERVAL HISTORY: Received Rituxan infusion 2 weeks ago -> [facility] (single infusion protocol/q 4 mo). Reports (-) peripheral joint swelling, sustained AM joint stiffness or pain. Continues treatment for dry mouth and dry eyes. Continues to HOLD methotrexate. No limitations in self-care or diversional actvities. Reports treatment for CAP in late May. ABX and steroid taper, with complete resolution of fever, cough and fatigue. Spending as imuch time as possible at camp. Hunting with family. Picks up niece and nephew from school once weekly. 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 Prior sleep study - frequent awakening, but no recommendation for bi/C Pap. No fever, chills, visual changes, oral ulcers, + dry mouth, painful or difficult swallowing, diarrhea or skin rash. Denies other changes in medical, surgical or social history. Current Outpatient Prescriptions on File Prior to Visit Medication Sig Dispense Refill ??? methylPREDNISolone (MEDROL) 4 mg Tablet Take 0.5 tablets by mouth daily. 45 tablet 0 ??? atorvastatin (LIPITOR) 10 mg Tablet Take [...] route 2 times daily. 16g 12 ??? venlafaxine (EFFEXOR-XR) 75 mg 24 [...] Text Med - OTC mositurizing eye drops ??? temazepam (RESTORIL) 30 mg capsule 30 mg, PO, QHS No current facility-administered medications on file prior to visit. Allergies Allergen Reactions ??? Calcium kidney stones ??? Levothyroxine ??? Lisinopril Dry cough PHYSICAL EXAMINATION: Most Recent Vitals: 07/22/17 1006 BP: 144/85 Pulse: 89 Resp: 18 SpO2: 98% Constitutional: Pleasant adult male, in no acute distress. HEENT: Normocephalic, atraumatic. Eyes - sclera clear. Oral mucous membranes moist and intact. (-) thyromegaly, anterior cervical lymphadenopathy, parotid or submandibular gland enlargement. Chest: Heart RRR, (-) murmur or extra sounds. Lungs: (-) Wheezing, rales or rhonchi. Neurological: Speech clearly articulated. Gait even and co-ordinated. Musculoskeletal: Muscle mass bilaterally symmetric. Joint Exam: Neck ROM functional, (-) tender. Bilateral upper and lower extremity peripheral joints with FROM, (-) tender, (-) synovitis; (+) CMC thickening. Makes a complete fist and near complete claw. Skin: Intact; (+) diffuse, pink,sandpapery macular rash cheeks; (-) pustles or papules. Superficialbruising on arms; + nail dystrophy. ASSESSMENT: Rheumatoid arthritis; high risk medication; medication safety monitoring; sicca symptoms. PLAN: ?? Rituxan at [facility] in 6 months. ?? Consider PULM follow up - PFTs [...] activity and exercise. ?? Annual influenza vaccine recommended and given today. ?? Follow up in 6 months, sooner for concerns, questions or increased signs/symptoms. documented in this encounter Plan of Treatment Upcoming Encounters Date Type Department Care Team (Late st Contact Info) Description 04/28/2024 12:00 PM EDT Appointment [place] [address] documented as of this encounter Procedures Procedure Name Priority Date/Time Associated Diagnosis Comments ORDS - PROVIDER CARE SCAN 05/16/2017 12:00 AM EDT documented in this encounter Results * SCAN DOC: ORDS - PROVIDER CARE (05/16/2017 12:00 AM EDT) Narrative 05/16/2017 12:00 AM EDT Ordered by an unspecified provider. Scanning Provider MEDIA MGR SCAN EXT O RDR/RSLT documented in this encounter Visit Diagnoses Diagnosis Rheumatoid arthritis with positive rheumatoid factor, involving unspecified site Medication monitoring encounter Encounter for therapeutic drug monitoring Parsonage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 Neuralgic amyotrophy documented in this encounter Care Teams Er Manager Relationship Specialty Start Date End Date Arelis Michele MD [address] [place] [address] PCP - General 11/16/13 06/10/18 documented as of this encounter
--- OUTSIDE RECORDS SUMMARY | 2024-04-06 02:30 | XMS_ITS | Encounter Summary ---
Author Organization [facility] [place] [address] Care Team Providers Care Global Transportation Manager Name Role Phone Arelis Michele MD Primary Care Provider [phone] Encounter Details Date Type Department Care Team (Late st Contact Info) Description 01/08/2019 10:15 AM EDT Office [place] [address] Kandy Espana, RN [facility] [address] Rheumatoid arthritis with positive rheumatoid factor, involving [...] Sign Reading Time Taken Comments Blood Pressure 125/89 01/08/2019 10:27 AM EDT Pulse 98 01/08/2019 10:27 AM EDT Temperature 36.5 ??C (97.7 ??F) 01/08/2019 1 0:27 AM EDT Respiratory Rate - - Oxygen Saturation 98% 01/08/2019 10: 27 AM EDT Inhaled Oxygen Concentration - - Weight 98.8 kg (217 lb 12.8 oz) 019 10:27 AM EDT Height 180.3 cm (5' 11) 01/08/2019 10: 27 AM EDT Body Mass Index 30.38 01/08/2019 10:27 AM EDT documented in this encounter Progress Notes * Kandy Espana, MICA SPREADER - 01/08/2019 10:15 AM EDT Established Patient Follow Up - Rheumatology Clinic Wesly Ybarra is a 68 y.o.male seen for ongoing evaluation and management of rheumatoid arthritis. He is accompanied by a form setter/driver. Last RHEU OV: 10/2018. INTERVAL HISTORY: Rheumatology remain on HOLD due to unspecified Cardiology procedure (thinks its aCardiac cath). But understands needs colonoscopy ( 02/16/2019) and endoscopy (unscheduled to date). Previously reported last Rituxan infusion in January 2018. [facility] (single infusion protocol/q 4 mo). Noted at [...] what diagnosis is. Treated by Dr. Sommers ([facility] Cardiology). History of depression - current management by PCP, on effexor and wellbutrin.. (-) tires easily with diversional actvities. (-) eye redness, eye pain, oral ulcers, + dry mouth, painful or difficult swallowing, diarrhea or skin rash. (+) easy bruising. Denies other changes in medical, surgical or social history. PHYSICAL EXAMINATION: Vitals: 01/08/19 1027 BP: 125/89 Pulse: 98 Temp: 36.5 ??C (97.7 ??F) SpO2: 98% Weight: 98.8 kg (217 lb 12.8 oz) Height: 180.3 cm (5' 11) Constitutional: Pleasant adult male, in no acute [...] bilateral upper and lower extremity peripheral joints. (+) decreased internal rotation and ABDuction at shoulders. Crepitus bilateral knees. Cool effusion at left knee. Tender at medial joint line. (-) tender, (-) synovitis; CMC thickening. Makes a complete fist and near complete claw. Skin: Intact; (+) scattered macular pink/snadpapery lesions on cheeks; (-) pustles or papules. Superficial bruising on arms; + nail dystrophy. ASSESSMENT: Rheumatoid arthritis; inactive. Left knee pain and stiffness; dyspnea with exertion; history of depression. PLAN: Immediately prior to the start of the procedure, I confirmed the patient's identity, intended procedure, including site/side, the correct patient positioning, site marked, and the availability of special equipment. Procedure Note: Site LEFT knee medial approach After informed verbal consent obtained, the area was prepped with an iodine solution. Ethyl chloride was applied as a topical anesthetic. 0lidocaine (3 cc) and Depomedrol 40 mg were injected into site without complication. The patient was advised of potential adverse reactions including infection, hyperglycemia, and skinatrophy. The patient was advised to call the clinic immediately for fever, chills, sweats, or increased redness, warmth, pain or swelling over the injection site. ?? Continue to HOLD methotrexate, folic acid and Rituxan. ?? Keep planned procedure appointments ?? Calcium and vitamin D dietary intake and supplements. ?? Continue acetaminophen 1000 mg po QAM, prn. ?? Ongoing osteoporosis prevention strategies, dietary intake, supplementation with vitamin D (no calcium due to kidney stones), ongoing weightbearing activity and exercise. ?? Annual influenza vaccine recommended. ?? Reviewed PULM and Cardiology notes -> ongoing follow up.. ?? Follow up in 3 weeks, office contact in 4-5 days to report on response to injection, sooner for concerns, questions or increased signs/symptoms. documented in this encounter Plan of Treatment Upcoming Encounters Date Type Department Care Team (Late st Contact Info) Description 04/28/2024 12:00 PM EDT [place] [address] documented as of this encounter Visit Diagnoses Diagnosis Rheumatoid arthritis with positive rheumatoid factor, involving unspecified site Medication monitoring encounter Encounter for therapeutic drug monitoring High risk medication use Encounter for long-term (current) use of other medications documented in this encounter Administered Medications Inactive Administered Medications - up to 3 most recent administrations Medication Order MAR Action Action Date Dose Rate Site methylPREDNISolone acetate (DEPO-Medrol) injection 40 mg 40 mg, Intra-articular, ONCE, 1 dose, On [place] 01/08/19 at 1130, Routine Given 01/08/2019 10:50 AM EDT 40 mg 20-Other (document in comment section) documented in this encounter Care Teams Global Transportation Manager Relationship Specialty Start Date End Date Arelis Michele MD [address] [place] [address] PCP - General Family Medicine 08/01/18 02/11/24 documented as of this encounter
--- OUTSIDE RECORDS SUMMARY | 2024-04-06 02:30 | XMS_ITS | Encounter Summary ---
Author Organization [facility] [place] [address] Care Team Providers Care Baker Helper Name Role Phone Arelis Michele MD Primary Care Provider [phone] Reason for Visit * Reason Comments IV Medication * [place] Medication (Routine) - Specialty Diagnoses / Procedures Referred By Azam corbett Referred To Contact Med Infusion Diagnoses Rheumatoid arthritis with positive rheumatoid factor, involving unspecified site Kandy Espana, RN [facility] [place] [address] [facility] Med Infusion [address] [place] [id number] Referral ID Status Reason Start Date Expiration Date V isits Requested Visits Authorized [id number] Consult, Test & Treat 10/07/2015 10/06/2016 3 3 Encounter Details Date Type Department Care Team (Latest Contact Info) Description 02/28/2016 8:45 AM EDT - 02/28/2016 11:59 PM EDT Hospital [place] [address] Rheumatoid arthritis with positive rheumatoid factor, involving unspecified site Discharge Disposition: Home Social History Tobacco Use [...] Time Taken Comments Blood Pressure 109/73 02/28/2016 8:54 AM EDT Pulse 81 02/28/2016 8:54 AM EDT Temperature 36.3 ??C (97.3 ??F) 02/28/2016 8:54 AM ED T Respiratory Rate 18 02/28/2016 8:54 AM EDT Oxygen Saturation 99% 02/28/2016 8:54 AM EDT Inhaled Oxygen Concentration - - Weight - - Height - - Body Mass Index - - documented in this encounter Medications at Time [...] Med - OTC mositurizing eye drops 11/02/2010 methylPREDNISolone (MEDROL) 4 mg Tablet Take 0.5 tablets by mouth daily. 45 tablet 02/28/2016 09/17/2023 atorvastatin (LIPITOR) 10 mg Tablet Take 10 mg by mouth daily. 01/08/2019 losartan (COZAAR) 100 mg Tablet 12/26/2015 07/22/2017 [...] as of this encounter Progress Notes * Marzena Abebe RN - 02/28/2016 9:06 AM EDT Patient Name: Wesly Ybarra Patient Age: 65 y.o. Birthdate: 1950 Admit date: 02/28/2016 Attending Physician: No att. providers found INFUSION THERAPY ADMINISTRATION NOTES DIAGNOSIS: Rheumatoid Arthritis REASON FOR VISIT: Rituxan infusion SUBJECTIVE: Offers no complaints. OBJECTIVE: Last dose received on 10/31/2015 VITALS: BP 109/73 (Patient Position: Sitting) Pulse 81 Temp 36.3 ??C (97.3 ??F) (Oral) Resp 18 SpO2 99% IF PAIN >5, INTERVENTION AND EFFECTIVENESS: na IV ACCESS: Peripheral IV - Single Lumen 02/28/16 0900 cephalic vein right (lateral side of arm) 22 gauge (Active) Indication/Daily Review of Necessity fluid therapy, intermittent 02/28/2016 9:00 AM Dressing transparent semipermeable dressing applied 02/28/2016 9:00 AM Patency/Maintenance flushed without difficulty;blood return, able to obtain;infusing 02/28/2016 9:00AM Phlebitis 0-->no symptoms 02/28/2016 9:00 AM Infiltration 0-->no symptoms 02/28/2016 9:00 AM HYDRATION: NS @ KVO 0900 off with infusion ANTIEMETICS/PREMEDS, Methylprednisolone 100 mg IV @ 0904 to 0914 Benadryl 25 mg IV@ 0915 to 0920 Patient identification and orders checked against actual dose given at bedside by Petra Abebe RN TREATMENT Rituxan 1000 mg IV Administration times: See NOV 01 dosing schedule used. REACTIONS None. ASSESSMENT: Tolerated infusion well. PLAN: Return to clinic 06/26/2016. documented in this encounter Plan of Treatment Upcoming Encounters Date Type Department Care Team (Late st Contact Info) Description 04/28/2024 12:00 PM EDT [place] [phone] documented as of this encounter Visit Diagnoses Diagnosis Rheumatoid arthritis with positive rheumatoid factor, involving unspecified site documented in this encounter Administered Medications Inactive Administered Medications - up to 3 most recent administrations Medication Order OCT Action Action Date Dose Rate Site diphenhydrAMINE (BENADRYL) injection 25 mg 25 mg, Intravenous, ONCE, 1 dose, On Sat02/28/16 at 0915, FIRST INFUSION Upon arrival prior to rituximab., Outpatient Transfusion, Routine Given 02/28/2016 9:15 AM EDT 25 mg methylPREDNISolone sodium succinate (PF) (solu-MEDROL) injection 100 mg 100 mg, Intravenous, ONCE, 1 dose, On Sat02/28/16 at 0915, FIRST INFUSION Upon arrival prior to rituximab., Outpatient Transfusion Given 02/28/2016 9:04 AM EDT 100 mg riTUXimab (RITUXAN) 1,000 mg in sodium chloride 0.9% 500 mL infusion 1,000 mg, Intravenous, ONCE, 1 dose, On Sat02/28/16 at 0945, FIRST INFUSION Administer intravenously at an initial rate of 50 mg/hour. If no hypersensitivity or infusion-related events occur, increase infusion rate in 50 mg/hour increments every 30 minutes, to a maximum of 400 mg/hour. If hypersensitivity or an infusion-related event develops, the infusion should be temporarily slowed or interrupted. Upon improvement of the patient's symptoms, the infusion can be continued at one-half the previous rate., Outpatient Transfusion, Indication: see associated diagnosis New Bag 02/28/2016 9:30 AM EDT 1,000 mg documented in this encounter Care Teams Baker Helper Relationship Specialty Start Date End Date Arelis Michele MD [address] [place] [address] PCP - General 11/16/13 06/10/18 documented as of this encounter
--- OUTSIDE RECORDS SUMMARY | 2024-04-06 02:30 | XMS_ITS | Encounter Summary ---
Author Organization Formerly [facility] [place] [address] Care Team Providers Care Surveillance Supervisor Name Role Phone Arelis Michele MD Primary Care Provider [phone] Reason for Visit * Reason Comments Referral * Consultation (Routine) - Closed Specialty Diagnoses / Procedures Referred By Contmabel t Referred To Contact Pulmonology Diagnoses SOB; Dyspnea Procedures needs f/u-has not been seen in a few years Uriah Sommers MD [address] [place] [id number] [facility] [address] [place] [id number] Referral ID Status Reason Start Date Expiration Date V isits Requested Visits Authorized [id number] Closed Consult, Test & Treat Connection Center 06/11/2018 06/11/2019 1 1 Encounter Details Date Type Department Care Team (Late st Contact Info) Description 08/01/2018 11:00 AM EST Office Visit [place] [address] Steven Soliz MD [facility] [place] [address] SOB (shortness of breath); Chronic rhinitis; Diaphragm paralysis; Cough variant asthma Social History Tobacco Use [...] Sign Reading Time Taken Comments Blood Pressure 99/58 08/01/2018 10:38 AM EST Pulse 81 08/01/2018 10:38 AM EST Temperature - - Respiratory Rate 18 08/01/2018 10:38 AM EST Oxygen Saturation 95% 08/01/2018 10:38 AM EST Inhaled Oxygen Concentration - - Weight 92.5 kg (204 lb) 08/01/2018 10:38 AM EST Height 179.6 cm (5' 10.7) 08/01/2018 10:[address] Body Mass Index 28.69 08/01/2018 10:38 AM EST documented in this encounter Progress Notes * Steven Soliz MD - 08/01/2018 11:00 AM EST Images from the original note were not included. INITIAL OUTPATIENT CONSULTATION NOTE SECTION OF PULMONARY/CRITICAL CARE MEDICINE PATIENT NAME: Wesly Ybarra : 1950 MEDICAL RECORD: [id number] DATE OF SERVICE: 07/31/2018 REFERRING PHYSICIAN: Uriah Sommers MD PRIMARY CARE PHYSICIAN: Andrew White DO Reason for Consultation: SOB; Dyspnea Chief Complaint: I've been having worsening breathing over the last year History of Present Illness: Mr. Wesly Ybarra is a 67 y.o. man who is referred to Pulmonology for initial evaluation of SOB; Dyspnea. He is referred by Cardiology at [facility] who last evaluated him on 06/09/18. Per included notes, Mr. Ybarra has experienced dyspnea since 09/2013 around which time he had whatwas described as a flu-like illness. Dyspnea is more noted when walking up inclines or stairs, and less apparent when walking on level ground. He has an extensive past medical history which is morenotable for Rheumatoid Arthritis for which he is followed by Endocrinology at [facility] (last seen on 04/16/18). He is currently receiving Rituxan (has received either continuously or on/off since at [id number]) on a q16 weeks single infusion protocol at [facility]. His pulmonary examination at that appointment was unremarkable with a resting SpO2 of 99%. He has historically been on a variety of therapies for his RA including Enbrel for 11 years (stopped in 2012), MTX (stopped in 12/2017). He is currently on Methylprednisolone 2 MG QD and is not on Pneumocystis prophylaxis. He has been evaluated by Pulmonology previously, but I can find no documentation from Pulmonology in our records. He has apparently been followed by [facility] and [facility] in the prior years, but none of the outside hospital pulmonary documentation, work-up or evaluation has been sent to me for review. 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 He apparently had a HRCT chest in 2014, but again this was not made available for review here, unfortunately; per the last cardiology note, not demonstrating interstitial lung disease.... He has apparently had some more recent spirometry performed, but again (if so) this was has not been made available for my review. From a cardiac perspective, he had a RHC/LHC in [place] in which demonstrated an elevated LVEDP and wedge pressure, normal PA pressures, and non-obstrucitve CAD. In speaking to Mr. Ybarra, he tells me his breathing was last baseline for him last September andsince then has been worsening precipitously, although he has experienced dyspnea on exertion for many years. He denies dyspnea at rest. He can walk several hundred feet at a slow pace without stopping on flat ground without stopping, but has difficulty with inclines and stairs due to dyspnea and cough. He also reports chest pain on the left side with radiation to the left arm with activity. He finds the exertional chest pain to be more worrisome than the dyspnea. It typically takes him 5 minutes of rest before his breathing returns to baseline. He reports a chronic daily cough for the last 12years, productive for light and dark green sputum admixed with blood described as being dark red. The blood is not a new finding and he reports his sputum has looked this way for the last decade. He reports occasional wheezing at rest and with activity which is often self-limiting. No new steroid dosing or antibiotics in the last year for respiratory related issues. He denies any history ofasthma. He has been on Symbicort for the last 5 years and he's unsure if it's helpful or not. He uses his Albuterol about twice per week and does not find it helpful when used. He thinks he has lost 16 lbs in last year unintentionally. He has slept with a wedge shaped pillow for the last 10-20 years, and no new orthopnea above baseline in the last several years. He reports chronic rhinitis which is only partially controlled with Flonase. He denies any known environmental allergens. Denies any new weakness in hs UE or LE's. Of note he was started on Coreg last 06/2017. Over the last 7-8 monthshe has reported globus sensation and occasional coughing with solid food intake. He does ok with liquid intake. He apparently saw ENT recently and he tells me he has an EGD scheduled for next month. 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 Chronic rhinitis J31.0 Medications: Prior to Admission medications Medication Sig Start Date End Date Taking? Authorizing Provider rituximab (RITUXAN IV) Inject into the vein. [...] 12.5 mg Tablet daily. 12/26/15 PROVIDER, HISTORICAL Budesonide-Formoterol (SYMBICORT) 80-4.5 mcg/actuation HFA Aerosol Inhaler Inhale 2 puffs into the lungs daily. 03/15/15 Kandy Espana APRN clopidogrel (PLAVIX) 75 mg tablet Take 75 mg by mouth daily. PROVIDER, HISTORICAL metoprolol succinate (TOPROL-XL) 25 mg 24 hr tablet Take 25 mg by mouth daily. 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 male, NAD HEENT: Moist mucous membranes Neck: Supple Lymphatics: No obvious cervical lymphadenopathy. Cardiovascular: Nl s1/s2, rrr, no murmurs, no gallops Respiratory: CTAB, no adventitious LS GI: soft, nt, nd, +bs Musculoskeletal: Normal bulk and tone Extremities: no LE edema noted, no clubbing Integument: No rash. Neurologic: Alert and oriented, moves all extremities appropriately, no obvious focal deficits; strength is 5/5 at the shoulders, elbows, ship mate, hips and knees Psychologic: Normal mood and affect. 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 06/16/13 70% 73% 77% 91% -- -- [...] on room air Imaging: (Images personally reviewed) 06/08/15 CXR: No acute disease and no significant change since the previous study. 06/16/13 CXR: No significant interval change. Specifically no pulmonary abnormalities. Film and interpretation reviewed by the attending 08/2014 TTE: LVEf 45%, segmental wall hypokinesis, no sig. Valve disease Assessment: Wesly Ybarra is a 67 y.o. man who is referred to me for evaluation of chronic dyspnea, but witha more recent and precipitous worsening over the last 12 months. This is my first time evaluatingthis patient. He has had extensive prior work-up in the past, but only some of this has been made available for my review. He has previously been evaluated by Pulmonology at [facility] and [facility] and had a HRCT chest in 2014 but I do not have these records. He has a history of Rheumatoid Arthritis forwhich he is currently maintained on Rituxan q16 weeks (for the last several years) and low dose Solu-medrol without PCP prophylaxis. More recent exposure to MTX (stopped ~ 12/2017), and remote exposure to Enbrel. His dyspnea on exertion is accompanied by chronic/intermittent sputum production (unchanged in recent years) and exertional chest pain with left arm radiation over the several month to year(s). There are numerous potential etiologies of Mr. Ybarra's symptoms, most of which are likely not mutually exclusive. From a cardiac perspective, his exertional chest pain and history of cardiomyopathy and elevated LVfilling pressures of course needs to be considered as a potential etiology of his exercise intolerance, but I agree is likely not the full story. From this end he is being managed closely by his Search Analyst. I also appreciate (per the patient) he was started on Coreg last year which preceeded the more abrupt worsening of his exercise tolerance. Therefore, some degree of chronotropic blunting with exercise should be considered and I would defer to his Search Analyst whether a time limited trial off Coreg is reasonable. From a pulmonary perspective, there are several things to consider. Of which, it is not possible attoday's visit to determine which of these considerations are the highest yield to tackle. To begin,he has long standing elevation of his right hemidiaphragm. 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 Upon supine testing today, we see a 20% decline in both FVC and FEV1, as well as reduced mouth pressures. This is consistent with significant diaphragmatic dysfunction and I would begin to wonder whether this is now becoming a bigger issue for Mr. Ybarra (but again, I'm reassured by the stability in his upright FVC testing over the last three years). If we ultimately determine his dyspnea is from his diaphragm,we can start the conversation of diaphragmatic plication with Thoracic Surgery, but we're certainlynot at that point yet. In terms of his reduced mouth pressures, he does not otherwise demonstrate any evidence of weakness on strength testing during my neurologic examination. In someone with RA andon Rituxan, we must also think about ILD or drug induced pneumonitis. His normal diffusing capacity, stable FVC, and lack of resting/exertional hypoxia (although his resting SpO2 is at the lower limits of normal) all speak against an evolving ILD over the last year. Along these same lines, however,it should be recognized that patient's with conditions such as RA (and on chronic steroids) can develop proximal airway involvement which could manifest as tracheomalacia (TM) or excessive dynamic airway collapse (EDAC). This would cause chronic dyspnea (often misdiagnosed as asthma) and not show up on standard CT imaging in which the patient performs an inspirator hold during the study. Therefore, depending on the work-up we start now, I may ultimately proceed with a dynamic (inspiratory AND expiratory) CT chest to evaluate for TM or EDAC. Lastly, I also recognize that Mr. Ybarra has been labeled with reactive airway disease which isn't actually a diagnosis but is often used in lieu ofsaying Asthma outright. From this end, I can't say he doesn't have asthma, but have a hard time believing this is his diagnosis as he has failed to demonstrate any response to inhaler therapies or additional supportive evidence of this (at least that he reports as I have none of his outside Pulmonology records). From this end, I instructed him to double his Symbicort dose from x2 puffs QD to x2 puffs BID for the next 4-6 weeks. If improvement, then we can continue and go down the asthma pathway. If no meaningful improvement, I asked him to stop his Symbicort all together. Ultimately, if no answers come from the pending work-up over the next few weeks, then we can consider moving forward with a cardiopulmonary exercise test (CPET). I am concerned about his solid food globus sensation and dysphagia to solid foods, but understand he is about to be evaluated by GI with an EGD. If negative, recommend his PCP consider a modified barium swallow evaluation. Recommendations: ?? Check venous blood gas ?? Check peripheral eosinophilia, RAST and total IgE for asthma phenotyping ?? Increase Symbicort to BID for 4-6 weeks; if no change, d/c Symbicort ?? Will order a fluoroscopic diaphragm test at [facility] (if they perform those tests) ?? Recommend his Search Analyst determine if reasonable for time limited d/c [...] ?? Follow-up with me in 4-6 weeks Closest Hospital's: [facility] Steven Soliz MD, 08/01/2018, 1:14 PM Pulmonary & Critical Care Pager: [phone] documented in this encounter Plan of Treatment Upcoming Encounters Date Type Department Care Team (Late st Contact Info) Description 04/28/2024 12:00 PM EDT Appointment [place] [phone] documented as of this encounter Procedures Procedure Name Priority Date/Time Associated Diagnosis Comments ALTERNARIA TENUIS, IGE Routine 8 12:26 PM EST Cough variant asthma SOB (shortness of breath) Chronic rhinitis IMMUNOGLOBULIN E (IGE) Routine 8 12:26 PM EST SOB (shortness of breath) Chronic rhinitis Cough variant asthma HOUSE DUST MITES/D.F., IGE Routine 08/01/2018 12:26 PM EST SOB (shortness of breath) Chronic rhinitis Cough variant asthma HOUSE DUST MITES/D.P., IGE Routine 08/01/2018 12:26 PM EST SOB (shortness of breath) Chronic rhinitis Cough variant asthma HEMOGRAM Routine 08/01/2018 12:26 PM EST SOB (shortness of breath) Chronic rhinitis Cough variant asthma DIFFERENTIAL, AUTOMATED Routine 08/01/20 18 12:26 PM EST SOB (shortness of breath) Chronic rhinitis Cough variant asthma OAK IGE Routine 08/01/2018 12:26 PM EST SOB (shortness of breath) Chronic rhinitis Cough variant asthma ELM IGE Routine 08/01/2018 12:26 PM EST SOB (shortness of breath) Chronic rhinitis Cough variant asthma BIRCH, SILVER IGE Routine 08/01/2018 12: 26 PM EST SOB (shortness of breath) Chronic rhinitis Cough variant asthma DOG EPITHELIUM IGE Routine 08/01/2018 12 :26 PM EST SOB (shortness of breath) Chronic rhinitis Cough variant asthma ASPERGILLUS FUMIGATUS IGE Routine 08/01/2018 12:26 PM EST SOB (shortness of breath) Chronic rhinitis Cough variant asthma CAT EPITHELIUM IGE Routine 08/01/2018 12 :26 PM EST SOB (shortness of breath) Chronic rhinitis Cough variant asthma HICKORY, WHITE IGE Routine 08/01/2018 12 :26 PM EST SOB (shortness of breath) Chronic rhinitis Cough variant asthma RAGWEED, SHORT/ COMMON IGE Routine 08/01/2018 12:26 PM EST SOB (shortness of breath) Chronic rhinitis Cough variant asthma DB GRASS IGE Routine 08/01/2018 12: 26 PM EST SOB (shortness of breath) Chronic rhinitis Cough variant asthma MAPLE / BOX ELDER IGE Routine 08/01/2018 12:26 PM EST SOB (shortness of breath) Chronic rhinitis Cough variant asthma BEECH IGE Routine 08/01/2018 12:26 PM EST SOB (shortness of breath) Chronic rhinitis Cough variant asthma ROBBIE, WHITE IGE Routine 08/01/2018 12:26 PM EST SOB (shortness of breath) Chronic rhinitis Cough variant asthma CBC (WITH DIFF) Routine 08/01/2018 12:26 PM EST SOB (shortness of breath) Chronic rhinitis Cough variant asthma documented in this encounter Results * (ABNORMAL) Differential, Automated (08/01/2018 12:26 PM EST) Neutrophil % 55.6 % [facility] Neutrophil Absolute 5.15 1.70 - 6.10 x10(3)/[facility] Lymph % 28.5 % [facility] Lymphocytes Abs 2.6 0.9 - 3.2 x10(3)/[facility] Monocyte % 10.4 % [facility] Monocyte Abs 1.0(H) 0.3 - 0.9 x10(3)/ L [facility] Eos % 4.8 % [facility] Eosinophils Abs 0.4 0.0 - 0.4 x10(3)/[facility] Basophil % 0.4 % [facility] Baso Absolute 0.0 0.0 - 0.1 x10(3)/ L [facility] Immature Gran % 0.30 % [facility] Comment: Immature granulocytes(IG's)percentage and absolute count will include metamyelocytes, myelocytes, and promyelocytes. Blood smears from CBCs yielding IG's will be scanned manually for concordance. If this scan disagrees with the automated IG or if promyelocytes are noted, a manual differential will be performed. Immature Gran Absolute 0.03 0.00 - 0.04 x10(3)/ L [facility] Blood specimen (specimen) 08/01/2018 12:26 PM EST 08/01/2018 12:33 PM EST Narrative Resulting Agency Comment Spec In Lab Steven Soliz MD HEMATOLOGY ORDERABLE S [facility] [place] [address] * (ABNORMAL) Hemogram (08/01/2018 12:26 PM EST) [facility] White Blood Cell 9.3 4.0 - 9.5 x10(3)/ L [facility] Red Blood Cell 5.23 4.58 - 5.54 x10(6)/ L [facility] Hemoglobin 15.2 13.7 - 16.5 gm/dL [facility] Hematocrit 46.0 40.5 - 48.5 % [facility] Mean Cell Volume 88.0 82.9 - 93.1 fL [facility] Mean Cell Hemoglobin 29.1 27.5 - 32.1 pg [facility] Mean Cell Hemoglobin Concentration 33.0 32.0 - 35.7 gm/dL [facility] Platelet 276 145 - 357 x10(3)/mc L [facility] RDW Standard Deviation 45.2(H) 36.0 - 45.0 fL [facility] RDW coefficient of variation 14.0(H) 11.4 - 13.8 % [facility] Mean Platelet Volume 9.6 7.6 - 12.9 fL [facility] NRBC% auto 0.0 % [facility] NRBC Absolute 0.000 0.000 - 0.000 x10(3)/ L [facility] Blood specimen (specimen) 08/01/2018 12:26 PM EST 08/01/2018 12:33 PM EST Narrative Resulting Agency Comment Spec In Lab Steven Soliz MD HEMATOLOGY ORDERABLE S [facility] [place] [address] * Immunoglobulin E (IgE) (08/01/2018 12:26 PM EST) IgE, Total 36 <=101 kU/L [facility] Comment: Pediatric age-specific reference ranges are reflected in result ranges. Adult reference ranges: <25 kU/L ??Normal 25-100 kU/L Equivocal >100 kU/L ??Elevated Blood specimen (specimen) 08/01/2018 12:26 PM EST 08/01/2018 2:13 PM EST Narrative Resulting Agency Comment Spec In Lab Steven Soliz MD IMMUNOLOGY ORDERABLE S [facility] [place] [address] * DeepwaterAnette rajan IgE (08/01/2018 12:26 PM EST) Anette Vaz, IgE <0.35 kU/L [facility] Comment: Reference Ranges <0.35 kU/L Class 0: ??Normal 0.35-0.69 kU/L Class 1: ??Low level of allergy, indicative of ongoing sensitization 0.70-3.49 kU/L Class 2: ??Moderate level of allergy, indicative of stronger ongoing sensitization 3.50-17.49 kU/L Class 3: ??High level of allergy, indicative of high level sensitization 17.5-49.9 kU/L Class 4: Very high level of allergy, indicative of very high level sensitization 50.0-100 kU/L Class 5: Very high level of allergy, indicative of very high level sensitization >100 kU/L Class 6: Very high level of allergy, indicative of very high level sensitization Blood specimen (specimen) 08/01/2018 12:26 PM EST 08/01/2018 2:13 PM EST Narrative Resulting Agency Comment Spec In Lab Steven Soliz MD IMMUNOLOGY ORDERABLE S Performing Organization Address City/[facility]/ZIP Co de Phone Number [facility] [place] [address] * Robbie, White IgE (08/01/2018 12:26 PM EST) Anette Robbie, IgE <0.35 kU/L [facility] Comment: Reference Ranges <0.35 kU/L Class 0: ??Normal 0.35-0.69 kU/L Class 1: ??Low level of allergy, indicative of ongoing sensitization 0.70-3.49 kU/L Class 2: ??Moderate level of allergy, indicative of stronger ongoing sensitization 3.50-17.49 kU/L Class 3: ??High level of allergy, indicative of high level sensitization 17.5-49.9 kU/L Class 4: Very high level of allergy, indicative of very high level sensitization 50.0-100 kU/L Class 5: Very high level of allergy, indicative of very high level sensitization >100 kU/L Class 6: Very high level of allergy, indicative of very high level sensitization Blood specimen (specimen) 08/01/2018 12:26 PM EST 08/01/2018 2:13 PM EST Narrative Resulting Agency Comment Spec In Lab Steven Soliz MD IMMUNOLOGY ORDERABLE S [facility] [place] [address] * Db Grass IgE (08/01/2018 12:26 PM EST) Db Grass, IgE <0.35 kU/L [facility] Comment: Reference Ranges <0.35 kU/L Class 0: ??Normal 0.35-0.69 kU/L Class 1: ??Low level of allergy, indicative of ongoing sensitization 0.70-3.49 kU/L Class 2: ??Moderate level of allergy, indicative of stronger ongoing sensitization 3.50-17.49 kU/L Class 3: ??High level of allergy, indicative of high level sensitization 17.5-49.9 kU/L Class 4: Very high level of allergy, indicative of very high level sensitization 50.0-100 kU/L Class 5: Very high level of allergy, indicative of very high level sensitization >100 kU/L Class 6: Very high level of allergy, indicative of very high level sensitization Blood specimen (specimen) 08/01/2018 12:26 PM EST 08/01/2018 2:13 PM EST Narrative Resulting Agency Comment Spec In Lab Steven Soliz MD IMMUNOLOGY ORDERABLE S Performing Organization Address [facility]/ZIP Co de Phone Number [facility] [place] [address] * Glentana IgE (08/01/2018 12:26 PM EST) Glentana, IgE <0.35 kU/L [facility] Comment: Reference Ranges <0.35 kU/L Class 0: ??Normal 0.35-0.69 kU/L Class 1: ??Low level of allergy, indicative of ongoing sensitization 0.70-3.49 kU/L Class 2: ??Moderate level of allergy, indicative of stronger ongoing sensitization 3.50-17.49 kU/L Class 3: ??High level of allergy, indicative of high level sensitization 17.5-49.9 kU/L Class 4: Very high level of allergy, indicative of very high level sensitization 50.0-100 kU/L Class 5: Very high level of allergy, indicative of very high level sensitization >100 kU/L Class 6: Very high level of allergy, indicative of very high level sensitization Blood specimen (specimen) 08/01/2018 12:26 PM EST 08/01/2018 2:13 PM EST Narrative Resulting Agency Comment Spec In Lab Steven Soliz MD IMMUNOLOGY ORDERABLE S Performing Organization Address [facility]/ZIP Co de Phone Number [facility] [place] [address] * Ragweed, short/ common IgE (08/01/2018 12:26 PM EST) Short Ragweed, IgE <0.35 kU/L [facility] Comment: Reference Ranges <0.35 kU/L Class 0: ??Normal 0.35-0.69 kU/L Class 1: ??Low level of allergy, indicative of ongoing sensitization 0.70-3.49 kU/L Class 2: ??Moderate level of allergy, indicative of stronger ongoing sensitization 3.50-17.49 kU/L Class 3: ??High level of allergy, indicative of high level sensitization 17.5-49.9 kU/L Class 4: Very high level of allergy, indicative of very high level sensitization 50.0-100 kU/L Class 5: Very high level of allergy, indicative of very high level sensitization >100 kU/L Class 6: Very high level of allergy, indicative of very high level sensitization Blood specimen (specimen) 08/01/2018 12:26 PM EST 08/01/2018 2:13 PM EST Narrative Resulting Agency Comment Spec In Lab Steven Soliz MD IMMUNOLOGY ORDERABLE S Performing Organization Address [facility] [facility]/ZIP Co de Phone Number [facility] [place] [address] * House Dust Mites/D.P., IgE (08/01/2018 12:26 PM EST) House Dust Mites/DP, IgE <0.35 kU/L [facility] Comment: Reference Ranges <0.35 kU/L Class 0: ??Normal 0.35-0.69 kU/L Class 1: ??Low level of allergy, indicative of ongoing sensitization 0.70-3.49 kU/L Class 2: ??Moderate level of allergy, indicative of stronger ongoing sensitization 3.50-17.49 kU/L Class 3: ??High level of allergy, indicative of high level sensitization 17.5-49.9 kU/L Class 4: Very high level of allergy, indicative of very high level sensitization 50.0-100 kU/L Class 5: Very high level of allergy, indicative of very high level sensitization >100 kU/L Class 6: Very high level of allergy, indicative of very high level sensitization Blood specimen (specimen) 08/01/2018 12:26 PM EST 08/01/2018 2:13 PM EST Narrative Resulting Agency Comment Spec In Lab Steven Soliz MD IMMUNOLOGY ORDERABLE S Performing Organization Address [facility]/ZIP Co de Phone Number [facility] [place] [address] * House Dust Mites/D.F., IgE (08/01/2018 12:26 PM EST) Pathologist [facility] Mites/D.F. IgE <0.35 kU/L [facility] Comment: Reference Ranges <0.35 kU/L Class 0: ??Normal 0.35-0.69 kU/L Class 1: ??Low level of allergy, indicative of ongoing sensitization 0.70-3.49 kU/L Class 2: ??Moderate level of allergy, indicative of stronger ongoing sensitization 3.50-17.49 kU/L Class 3: ??High level of allergy, indicative of high level sensitization 17.5-49.9 kU/L Class 4: Very high level of allergy, indicative of very high level sensitization 50.0-100 kU/L Class 5: Very high level of allergy, indicative of very high level sensitization >100 kU/L Class 6: Very high level of allergy, indicative of very high level sensitization Blood specimen (specimen) 08/01/2018 12:26 PM EST 08/01/2018 2:13 PM EST Narrative Resulting Agency Comment Spec In Lab Steven Soliz MD IMMUNOLOGY ORDERABLE S [facility] [place] [address] * Elm IgE (08/01/2018 12:26 PM EST) Pathologist [facility] Elm, IgE <0.35 kU/L [facility] Comment: Reference Ranges <0.35 kU/L Class 0: ??Normal 0.35-0.69 kU/L Class 1: ??Low level of allergy, indicative of ongoing sensitization 0.70-3.49 kU/L Class 2: ??Moderate level of allergy, indicative of stronger ongoing sensitization 3.50-17.49 kU/L Class 3: ??High level of allergy, indicative of high level sensitization 17.5-49.9 kU/L Class 4: Very high level of allergy, indicative of very high level sensitization 50.0-100 kU/L Class 5: Very high level of allergy, indicative of very high level sensitization >100 kU/L Class 6: Very high level of allergy, indicative of very high level sensitization Blood specimen (specimen) 08/01/2018 12:26 PM EST 08/01/2018 2:13 PM EST Narrative Resulting Agency Comment Spec In Lab Steven Soliz MD IMMUNOLOGY ORDERABLE S Performing Organization Address [facility] Co de Phone Number [facility] [place] [address] * Dog Epithelium IgE (08/01/2018 12:26 PM EST) Dog Epithel, IgE <0.35 kU/L [facility] Comment: Reference Ranges <0.35 kU/L Class 0: ??Normal 0.35-0.69 kU/L Class 1: ??Low level of allergy, indicative of ongoing sensitization 0.70-3.49 kU/L Class 2: ??Moderate level of allergy, indicative of stronger ongoing sensitization 3.50-17.49 kU/L Class 3: ??High level of allergy, indicative of high level sensitization 17.5-49.9 kU/L Class 4: Very high level of allergy, indicative of very high level sensitization 50.0-100 kU/L Class 5: Very high level of allergy, indicative of very high level sensitization >100 kU/L Class 6: Very high level of allergy, indicative of very high level sensitization Blood specimen (specimen) 08/01/2018 12:26 PM EST 08/01/2018 2:13 PM EST Narrative Resulting Agency Comment Spec In Lab Steven Soliz MD IMMUNOLOGY ORDERABLE S Performing Organization Address [facility] Co de Phone Number [facility] [place] [address] * Cat Epithelium IgE (08/01/2018 12:26 PM EST) Cat Epithel, IgE <0.35 kU/L [facility] Comment: Reference Ranges <0.35 kU/L Class 0: ??Normal 0.35-0.69 kU/L Class 1: ??Low level of allergy, indicative of ongoing sensitization 0.70-3.49 kU/L Class 2: ??Moderate level of allergy, indicative of stronger ongoing sensitization 3.50-17.49 kU/L Class 3: ??High level of allergy, indicative of high level sensitization 17.5-49.9 kU/L Class 4: Very high level of allergy, indicative of very high level sensitization 50.0-100 kU/L Class 5: Very high level of allergy, indicative of very high level sensitization >100 kU/L Class 6: Very high level of allergy, indicative of very high level sensitization Blood specimen (specimen) 08/01/2018 12:26 PM EST 08/01/2018 2:13 PM EST Narrative Resulting Agency Comment Spec In Lab Steven Soliz MD IMMUNOLOGY ORDERABLE S Performing Organization Address [facility] Co de Phone Number [facility] [place] [address] * moe Díaz IgE (08/01/2018 12:26 PM EST) Pathologist Obi Díaz IgE <0.35 kU/L [facility] Comment: Reference Ranges <0.35 kU/L Class 0: ??Normal 0.35-0.69 kU/L Class 1: ??Low level of allergy, indicative of ongoing sensitization 0.70-3.49 kU/L Class 2: ??Moderate level of allergy, indicative of stronger ongoing sensitization 3.50-17.49 kU/L Class 3: ??High level of allergy, indicative of high level sensitization 17.5-49.9 kU/L Class 4: Very high level of allergy, indicative of very high level sensitization 50.0-100 kU/L Class 5: Very high level of allergy, indicative of very high level sensitization >100 kU/L Class 6: Very high level of allergy, indicative of very high level sensitization Blood specimen (specimen) 08/01/2018 12:26 PM EST 08/01/2018 2:13 PM EST Narrative Resulting Agency Comment Spec In Lab Steven Soliz MD IMMUNOLOGY ORDERABLE S Performing Organization Address [facility]/ZIP Co de Phone Number [facility] [place] [address] * [place] / [place] IgE (08/01/2018 12:26 PM EST) GarlandpitomariahIsaiasStacey, IgE <0.35 kU/L [facility] Comment: Reference Ranges <0.35 kU/L Class 0: ??Normal 0.35-0.69 kU/L Class 1: ??Low level of allergy, indicative of ongoing sensitization 0.70-3.49 kU/L Class 2: ??Moderate level of allergy, indicative of stronger ongoing sensitization 3.50-17.49 kU/L Class 3: ??High level of allergy, indicative of high level sensitization 17.5-49.9 kU/L Class 4: Very high level of allergy, indicative of very high level sensitization 50.0-100 kU/L Class 5: Very high level of allergy, indicative of very high level sensitization >100 kU/L Class 6: Very high level of allergy, indicative of very high level sensitization Blood specimen (specimen) 08/01/2018 12:26 PM EST 08/01/2018 2:13 PM EST Narrative Resulting Agency Comment Spec In Lab Steven Soliz MD IMMUNOLOGY ORDERABLE S [facility] [place] [address] * Beech IgE (08/01/2018 12:26 PM EST) Teja, IgE <0.35 kU/L [facility] Comment: Reference Ranges <0.35 kU/L Class 0: ??Normal 0.35-0.69 kU/L Class 1: ??Low level of allergy, indicative of ongoing sensitization 0.70-3.49 kU/L Class 2: ??Moderate level of allergy, indicative of stronger ongoing sensitization 3.50-17.49 kU/L Class 3: ??High level of allergy, indicative of high level sensitization 17.5-49.9 kU/L Class 4: Very high level of allergy, indicative of very high level sensitization 50.0-100 kU/L Class 5: Very high level of allergy, indicative of very high level sensitization >100 kU/L Class 6: Very high level of allergy, indicative of very high level sensitization Blood specimen (specimen) 08/01/2018 12:26 PM EST 08/01/2018 2:13 PM EST Narrative Resulting Agency Comment Spec In Lab Steven Soliz MD IMMUNOLOGY ORDERABLE S Performing Organization Address City/[facility]/ZIP Co de Phone Number [facility] [place] [address] * Aspergillus fumigatus IgE (08/01/2018 12:26 PM EST) Aspergillus Fumigatus, IgE <0.35 kU/L [facility] Comment: Reference Ranges <0.35 kU/L Class 0: ??Normal 0.35-0.69 kU/L Class 1: ??Low level of allergy, indicative of ongoing sensitization 0.70-3.49 kU/L Class 2: ??Moderate level of allergy, indicative of stronger ongoing sensitization 3.50-17.49 kU/L Class 3: ??High level of allergy, indicative of high level sensitization 17.5-49.9 kU/L Class 4: Very high level of allergy, indicative of very high level sensitization 50.0-100 kU/L Class 5: Very high level of allergy, indicative of very high level sensitization >100 kU/L Class 6: Very high level of allergy, indicative of very high level sensitization Blood specimen (specimen) 08/01/2018 12:26 PM EST 08/01/2018 2:13 PM EST Narrative Resulting Agency Comment Spec In Lab Steven Soliz MD IMMUNOLOGY ORDERABLE S Performing Organization Address City/[facility]/ZIP Co de Phone Number [facility] [place] [address] * Alternaria Tenuis, IgE (08/01/2018 12:26 PM EST) Alt Tenuis IgE <0.35 kU/L [facility] Comment: Reference Ranges <0.35 kU/L Class 0: ??Normal 0.35-0.69 kU/L Class 1: ??Low level of allergy, indicative of ongoing sensitization 0.70-3.49 kU/L Class 2: ??Moderate level of allergy, indicative of stronger ongoing sensitization 3.50-17.49 kU/L Class 3: ??High level of allergy, indicative of high level sensitization 17.5-49.9 kU/L Class 4: Very high level of allergy, indicative of very high level sensitization 50.0-100 kU/L Class 5: Very high level of allergy, indicative of very high level sensitization >100 kU/L Class 6: Very high level of allergy, indicative of very high level sensitization Blood specimen (specimen) 08/01/2018 12:26 PM EST 08/01/2018 2:13 PM EST Narrative Resulting Agency Comment Spec In Lab Steven Soliz [place] [address] documented in this encounter Visit Diagnoses Diagnosis SOB (shortness of breath) Shortness of breath Chronic rhinitis Diaphragm paralysis Disorders of diaphragm Cough variant asthma Cough variant asthma documented in this encounter Care Teams Surveillance Supervisor Relationship Specialty Start Date End Date Arelis Michele MD [address] [place] [address] PCP - General Family Medicine 08/01/18 02/11/24 documented as of this encounter
--- OUTSIDE RECORDS SUMMARY | 2024-04-06 02:30 | XMS_ITS | Encounter Summary ---
Author Organization [facility] [place] [address] Care Team Providers Care Pump Operator Byproducts Name Role Phone Arelis Michele MD Primary Care Provider [phone] Encounter Details Date Type Department Care Team (Late st Contact Info) Description 06/20/2016 Orders [place] [phone] Kandy Espana, RN [facility] [place] [address] Social History Tobacco Use Types Packs/Day Years [...] 12:00 PM EDT [place] [phone] documented as of this encounter Visit Diagnoses Not on filedocumented in this encounter Care Teams Pump Operator Byproducts Relationship Specialty Start Date End Date Arelis Michele MD [address] [place], [place] [address] PCP - General 11/16/13 06/10/18 documented as of this encounter
--- OUTSIDE RECORDS SUMMARY | 2024-04-06 02:30 | XMS_ITS | Encounter Summary ---
[place] [address] Care Team Providers Care Router Operator Name Role Phone Arelis Michele MD Primary Care Provider [phone] Encounter Details Date Type Department Care Team (Late st Contact Info) Description 09/23/2018 Telephone [place] [address] Monty Green, RN Social History Tobacco Use [...] 12:00 PM EDT [place] [address] documented as of this encounter Visit Diagnoses Not on filedocumented in this encounter Care Teams Router Operator Relationship Specialty Start Date End Date Arelis Michele MD [address] [place] [address] PCP - General Family Medicine 08/01/18 02/11/24 documented as of this encounter
--- OUTSIDE RECORDS SUMMARY | 2024-04-06 02:30 | XMS_ITS | Encounter Summary ---
Author Organization [facility] [place] [address] Care Team Providers Care Manager Social Work Name Role Phone Arelis Michele MD Primary Care Provider [phone] Reason for Visit * Reason Onset Date Comments Prior Authorization 09/08/2018 Encounter Details Date Type Department Care Team (Late st Contact Info) Description 09/08/2018 Telephone [place] [address] Lyn Wyman LPN Prior Authorization Social History Tobacco Use Types [...] encounter Miscellaneous Notes * Telephone Encounter - Lyn Wyman LPN - 09/08/2018 2:01 PM EST PA sent to insurance co for [email or web address] documented in this encounter Plan of Treatment Upcoming Encounters Date Type Department Care Team (Late st Contact Info) Description 04/28/2024 12:00 PM EDT Appointment [place] [address] documented as of this encounter Visit Diagnoses Not on filedocumented in this encounter Care Teams Manager Social Work Relationship Specialty Start Date End Date Arelis Michele MD [address] [place] [address] PCP - General Family Medicine 08/01/18 02/11/24 documented as of this encounter
--- OUTSIDE RECORDS SUMMARY | 2024-04-06 02:30 | XMS_ITS | Encounter Summary ---
Author Organization [facility] [place] [address] Care Team Providers Care Chrome Plater Name Role Phone Andrew White DO Primary Care Provider [phone] Encounter Details Date Type Department Care Team (Late st Contact Info) Description 07/08/2018 [place] [address] Steven Soliz MD [facility] [place] [address] SOB (shortness of breath) Social History Tobacco [...] 12:00 PM EDT [place] [phone] documented as of this encounter Visit Diagnoses Diagnosis SOB (shortness of breath) Shortness of breath documented in this encounter Care Teams Chrome Plater Relationship Specialty Start Date End Date Andrew White DO [address] [place] [address] PCP - General Family Medicine 06/11/18 07/31/18 documented as of this encounter
--- OUTSIDE RECORDS SUMMARY | 2024-04-06 02:30 | XMS_ITS | Encounter Summary ---
[place] [address] Care Team Providers Care Skidder Runner Name Role Phone Arelis Michele MD Primary Care Provider [phone] Encounter Details Date Type Department Care Team (Late Contact Info) Description 12/23/2018 Telephone [place] [phone] Yumi Maxwell Social History Tobacco Use Types [...] * Telephone Encounter - Yumi Maxwell - 12/23/2018 11:34 AM EDT Left second message for patient to contact the office. The patient's appointment was canceled inadvertently and needs to reschedule. documented in this encounter Plan of Treatment Upcoming Encounters Date Type Department Care Team (Late st Contact Info) Description 04/28/2024 12:00 PM EDT [place] [phone] documented as of this encounter Visit Diagnoses Not on filedocumented in this encounter Care Teams Skidder Runner Relationship Specialty Start Date End Date Arelis Michele MD [address] [place] [address] PCP - General Family Medicine 08/01/18 02/11/24 documented as of this encounter
--- OUTSIDE RECORDS SUMMARY | 2024-04-06 02:30 | XMS_ITS | Encounter Summary ---
[place] [address] Care Team Providers Care Paper Machine Backtender Name Role Phone Arelis Michele MD Primary Care Provider Encounter Details Date Type Department Care Team (Latest Contact Info) Description 08/01/2018 10:00 AM EST - 08/01/2018 11:59 PM EST Hospital [place] [address] SOB (shortness of breath) Discharge Disposition: Home Social History Tobacco Use [...] 11/02/2010 06/05/2022 documented as of this encounter Procedure Notes * Richard Reina MD - 08/01/2018 11:59 PM ESTAssociated Order(s): PULMONARY FUNCTION TEST A. SPIROMETRY(Sitting position) reveals a moderate (59-50%) [...] while the patient was breathing room air. The lowest saturation was 91%. E. FINAL IMPRESSION: The normal DLCO in conjunction with RVD suggests that a Process not involving the lung parenchyma (chest wall/pleural disease or muscle weakness) is present. Lung volume testing may provide clarification. There was a significant deterioration in FEV1 & FVC in supine position in comparison to a sitting position which may indicate presence of diaphragmatic weakness. Clinical correlation is required. Normal resting pulse oximtery. Significant desaturation on ambulation. documented in this encounter Miscellaneous Notes * Addendum Note - Richard Reina MD - 08/01/2018 11:59 PM ESTEncounter addended by: Richard Reina MD on: 08/06/2018 3:42 PM Actions taken: Sign clinical note, Charge Capture section accepted documented in this encounter Plan of Treatment Upcoming Encounters Date Type Department Care Team (Late st Contact Info) Description 04/28/2024 12:00 PM EDT [place] [phone] documented as of this encounter Procedures Procedure Name Priority Date/Time Associated Diagnosis Comments COMMON PULMONARY FUNCTION TEST Routine 08/01/2018 11:59 PM EST SOB (shortness of breath) documented in this encounter Results * Pulmonary [...] breath documented in this encounter Care Teams Paper Machine Backtender Relationship Specialty Start Date End Date Arelis Michele MD [address] [place] [address] PCP - General Family Medicine 08/01/18 02/11/24 documented as of this encounter
--- OUTSIDE RECORDS SUMMARY | 2024-04-06 02:30 | XMS_ITS | Encounter Summary ---
[place] [address] Care Team Providers Care Fur Storage Clerk Name Role Phone ChristopherAndrew carmona Primary Care Provider Encounter Details Date Type Department Care Team (Late st Contact Info) Description 06/16/2018 Tele[place] [phone] Lionel Rabago RN Social History Tobacco Use Types Packs/Day [...] Telephone Encounter - Lionel Rabago RN - 06/19/2018 12:25 PM EDT Billie from infusion updated, infusion on hold. Requests update when able to have infusion and new orders when available. * Telephone Encounter - Lionel Rabago RN - 06/19/2018 8:14 AM EDT Per EMPLOYEE DEVELOPMENT MANAGER Jovi, hold rituxan infusion until pulm consult completed and echo completed and reports available. Fax sent to PCP updating medication profile. * Telephone Encounter - Lionel Rabago RN - 06/16/2018 2:44 PM EDT Billie calls clinic regarding infusion appointment. Patient had called clinic. Cardiology work up. Questions if should continue with appointment. Billie questions if patient should have infusion. Will be rebooked for next week instead of tomorrow to determine if patient to continue with infusion. Notes sent to Rheumatology for review. documented in this encounter Plan of Treatment Upcoming Encounters Date Type Department Care Team (Late st Contact Info) Description 04/28/2024 12:00 PM EDT [place] [address] documented as of this encounter Visit Diagnoses Not on filedocumented in this encounter Care Teams Fur Storage Clerk Relationship Specialty Start Date End Date Andrew White DO [address] [place] [address] PCP - General Family Medicine 06/11/18 07/31/18 documented as of this encounter
--- OUTSIDE RECORDS SUMMARY | 2024-04-06 02:30 | XMS_ITS | Encounter Summary ---
Author Organization [facility] [place] [address] Care Team Providers Care Sand Technician Name Role Phone Arelis Michele MD Primary Care Provider [phone] Encounter Details Date Type Department Care Team (Late st Contact Info) Description 10/31/2015 8:45 AM EST Office [place] [address] Kandy Espana, RN [facility] [place] [address] Rheumatoid arthritis with positive rheumatoid factor, involving unspecified site [M05.70]; High risk medication use; Medication monitoring encounter; Encounter for long-term current use of medication Social History Tobacco Use Types Packs/Day Years [...] Sign Reading Time Taken Comments Blood Pressure 97/59 10/31/2015 8:32 AM EST Pulse 74 10/31/2015 8:32 AM EST Temperature 36.7 ??C (98 ??F) 10/31/2015 8:32 AM EST Respiratory Rate - - Oxygen Saturation 97% 10/31/2015 8:32 AM EST Inhaled Oxygen Concentration - - Weight 93.4 kg (206 lb) 10/31/2015 8:32 AM EST Height 182.9 cm (6') 10/31/2015 8:32 AM EST Body Mass Index 27.94 10/31/2015 8:32 AM EST documented in this encounter Progress Notes * Kandy Espana, APPEALS AND GENERALIST CLERK - 10/31/2015 8:48 AM EST Established Patient Follow Up - [...] R09.82 ??? Cardiomyopathy I42.9 . INTERVAL HISTORY: Neurology consult ([facility]) completed 10/2015. Diagnostics completed and follow up visit planned 11/14/2015. Not available for review. Also seen by ARELIS MICHELE MD. Started on thyroid replacement (synthroid 25 mcg) daily. Participating in PT. 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 Prior sleep study - frequent awakening, but no recommendation for bi/CPap. No joint swelling, all over stiffness, some pain in hands and knees. Ready for Rituxan infusion today. Last Rituxan was December 2014No OTC meds on routine basis Hard winter, missing mother who a year ago. Family supportive, but pt likes solitude. Living with brother. Looking forward to spring and ability to spend time at camp. Looking forward to le-sugaring season. When last seen, reported had been seen (routinely) by Cardiology in late July. Reported suspicion of stroke and has been referred to Neurology with appointment schedule September 06. Stated had headache for 2 days in early July, without visual changes, weakness, nausea, vomiting or chest pain.About 4 days later, noted weakness in left arm. No change in speech. Seen and treated with ABX (unspecified) for URI in November, without improvement. Second ABX, erythromycin, received and felt better almost immediately. Completed course. Continues treatment for dry mouth and dry eyes. Annual influenza vaccine received fall 2014 at PCP office. Continues to HOLD methotrexate and folic acid. Reports no limitations in self-care activities. Denies fever, chills, visual changes, oral ulcers, + dry mouth, painful or difficult swallowing, diarrhea or skin rash. Denies other changes in medical, surgical or social history. Current Outpatient Prescriptions on File Prior to Visit Medication Sig Dispense Refill ??? Budesonide-Formoterol (SYMBICORT) 80-4.5 mcg/actuation HFA Aerosol Inhaler Inhale 2 puffs into the lungs daily. 1 Inhaler 0 ??? metoprolol succinate (TOPROL-XL) 25 mg 24 [...] ??? losartan (COZAAR) 50 mg tablet Take 50 mg by mouth daily. ??? acetaminophen (TYLENOL [...] mg capsule 30 mg, PO, QHS ??? clopidogrel (PLAVIX) 75 mg tablet Take 75 mg by mouth daily. No current facility-administered medications on file prior to visit. Allergies Allergen Reactions ??? Calcium kidney stones ??? Levothyroxine ??? Lisinopril Dry cough PHYSICAL EXAMINATION: Filed Vitals: 10/31/15 0832 BP: 97/59 Pulse: 74 Temp: 36.7 ??C (98 ??F) TempSrc: Oral Height: 182.9 cm (6') Weight: 93.441 kg (206 lb) SpO2: 97% Constitutional: Pleasant adult male, in no acute [...] (-) swelling; (-) erythema or warmth. MCPs/PIPs/DIPs: (-) tender, (-) swelling; (+) CMC thickening. Makes [...] sicca symptoms. PLAN: ?? Rituxan today. ?? Reviewed reports - MRA neck/brain, ECHO (10/03/2015 and 10/04/2015, respectively) -> no evidence of stroke, atherosclerosis/plaque build up neck; not significant (< 50%). ECHO -> heart in excellent condition. ?? Consider PULM follow up - PFTs if recurrent cough, dyspnea or infection.. ?? Continue to HOLD methotrexate and folic acid. ?? Calcium and vitamin D dietary intake and supplementation. ?? Keep scheduled follow up Neurology. ?? Rituxan at [facility] in 6 months. ?? Continue treatments for dry mouth and blepharitis. ?? Continue acetaminophen 1000 mg po QAM, prn. ?? Ongoing osteoporosis prevention strategies, dietary intake, supplementation with vitamin D (no calcium due to kidney stones), ongoing weightbearing activity and exercise. ?? Annual influenza vaccine recommended. Addendum: Recent Results (from the past 24 hour(s)) Hepatic Function Panel Result Value Ref Range Total Protein 6.1 6.1 - 8.0 gm/dL Albumin 3.7 3.2 - 5.2 gm/dL AST 17 0 - 39 unit/L ALT 17 0 - 55 unit/L Alk Phos 67 40 - 120 unit/L Total Bilirubin 0.6 0.2 - 1.3 mg/dL Bili, Direct 0.1 0.0 - 0.3 mg/dL Comprehensive metabolic panel (non-fasting) Result Value Ref Range Glucose Lvl 95 65 - 199 mg/dL BUN 13 10 - 20 mg/dL Creatinine 0.97 0.80 - 1.50 mg/dL Sodium 141 135 - 145 mmol/L Potassium 4.0 3.5 - 5.0 mmol/L Chloride 104 98 - 107 mmol/L CO2 26 22 - 31 mmol/L Anion Gap 11 5 - 15 mmol/L Calcium 8.9 8.5 - 10.5 mg/dL Total Protein 6.1 6.1 - 8.0 gm/dL Albumin 3.7 3.2 - 5.2 gm/dL AST 17 0 - 39 unit/L ALT 17 0 - 55 unit/L Alk Phos 67 40 - 120 unit/L Total Bilirubin 0.6 0.2 - 1.3 mg/dL Bili, Direct 0.1 0.0 - 0.3 mg/dL Estimated GFR >60 >=60 High Sensitivity CRP Result Value Ref Range CRP High Sens 1.8 mg/L Hemogram Result Value Ref Range WBC 8.7 4.0 - 10.0 x10(3)/mcL RBC 5.22 4.63 - 6.08 x10(6)/mcL Hemoglobin 15.8 13.7 - 17.5 gm/dL Hematocrit 47.1 40.0 - 51.0 % MCV 90.2 79.0 - 92.0 fL MCH 30.3 25.6 - 32.2 pg MCHC 33.5 32.0 - 36.5 gm/dL Platelets 214 145 - 370 x10(3)/mcL RDWSD 47.8 (H) 35.0 - 46.0 fL RDWCV 14.6 (H) 10.9 - 14.4 % MPV 10.4 9.0 - 12.0 fL Differential, Automated Result Value Ref Range Neutrophils % 57.0 % Neutr Abs (ANC) 4.98 1.50 - 6.30 x10(3)/mcL Lymphocytes % 28.5 % Lymphocytes Abs 2.5 1.0 - 3.6 x10(3)/mcL Monocytes % 9.3 % Monocyte Abs 0.8 0.2 - 1.0 x10(3)/mcL Eosinophils % 4.8 % Eosinophils Abs 0.4 0.0 - 0.5 x10(3)/mcL Basophils % 0.2 % Basophils Abs 0.0 0.0 - 0.2 x10(3)/mcL Immature Gran % 0.20 % Brianna Gran Abs 0.02 0.00 - 0.05 x10(3)/mcL documented in this encounter Plan of Treatment Upcoming Encounters Date Type Department Care Team (Late st Contact Info) Description 04/28/2024 12:00 PM EDT [place] [id number] documented as of this encounter Procedures Procedure Name Priority Date/Time Associated Diagnosis Comments HEMOGRAM Routine 10/31/2015 10:07 AM EST DIFFERENTIAL, AUTOMATED Routine 10/31/2015 10:07 AM EST CBC (WITH DIFF) Routine 10/31/2015 10:07 AM EST Rheumatoid arthritis with positive rheumatoid factor, involving unspecified site [M05.70] High risk medication use Medication monitoring encounter CRP, CARDIAC RISK (HS CRP) Routine 10/31/2015 10:07 AM EST Rheumatoid arthritis with positive rheumatoid factor, involving unspecified site [M05.70] High risk medication use Medication monitoring encounter HEPATIC FUNCTION PANEL Routine 6 10:07 AM EST Encounter for long-term current use of medication COMPREHENSIVE METABOLIC PANEL Routine 10/31/2015 10:07 AM EST Rheumatoid arthritis with positive rheumatoid factor, involving unspecified site [M05.70] High risk medication use Medication monitoring encounter documented in this encounter Results * Differential, Automated (10/31/2015 10:07 AM EST) Neutrophil % 57.0 % [facility] Neutrophil Absolute 4.98 1.50 - 6.30 x10(3)/[facility] Lymph % 28.5 % [facility] Lymphocytes Abs 2.5 1.0 - 3.6 x10(3)/[facility] Monocyte % 9.3 % [facility] Monocyte Abs 0.8 0.2 - 1.0 x10(3)/[facility] Eos % 4.8 % [facility] Eosinophils Abs 0.4 0.0 - 0.5 x10(3)/[facility] Basophil % 0.2 % [facility] Baso Absolute 0.0 0.0 - 0.2 x10(3)/[facility] Immature Gran % 0.20 % [facility] Comment: Immature granulocytes(IG's)percentage and absolute count will include metamyelocytes, myelocytes, and promyelocytes. Blood smears from CBCs yielding IG's will be scanned manually for concordance. If this scan disagrees with the automated IG or if promyelocytes are noted, a manual differential will be performed. Immature Gran Absolute 0.02 0.00 - 0.05 x10(3)/[facility] Blood specimen (specimen) 10/31/2015 10:07 AM EST 10/31/2015 10:28 AM EST Narrative Resulting Agency Comment Spec In Lab Kalen De Anda MD HEMATOLOGY ORDERABLE S Performing Organization Address City/[facility]/ZIP Co de Phone Number [facility] [place] [address] * (ABNORMAL) Hemogram (10/31/2015 10:07 AM EST) White Blood Cell 8.7 4.0 - 10.0 x10(3)/mc L [facility] Red Blood Cell 5.22 4.63 - 6.08 x10(6)/mc L [facility] Hemoglobin 15.8 13.7 - 17.5 gm/dL [facility] Hematocrit 47.1 40.0 - 51.0 % [facility] Mean Cell Volume 90.2 79.0 - 92.0 fL [facility] Mean Cell Hemoglobin 30.3 25.6 - 32.2 pg [facility] Mean Cell Hemoglobin Concentration 33.5 32.0 - 36.5 gm/dL [facility] Platelet 214 145 - 370 x10(3)/mc L [facility] RDW Standard Deviation 47.8(H) 35.0 - 46.0 fL [facility] RDW coefficient of variation 14.6(H) 10.9 - 14.4 % [facility] Mean Platelet Volume 10.4 9.0 - 12.0 fL [facility] Blood specimen (specimen) 10/31/2015 10:07 AM EST 10/31/2015 10:28 AM EST Narrative Resulting Agency Comment Spec In Lab Kalen De Anda MD HEMATOLOGY ORDERABLE S Performing Organization Address City/[facility] Co de Phone Number [facility] [place] [address] * Hepatic Function Panel (10/31/2015 10:07 AM EST) Protein, Total 6.1 6.1 - 8.0 gm/dL [facility] Albumin 3.7 3.2 - 5.2 gm/dL [facility] Aspartate Aminotransferase 17 0 - 39 unit/L [facility] Alanine Aminotransferase 17 0 - 55 unit/L [facility] Alkaline Phosphatase 67 40 - 120 unit/L [facility] Bilirubin, Total 0.6 0.2 - 1.3 mg/dL [facility] Bilirubin, Direct 0.1 0.0 - 0.3 mg/dL [facility] Blood specimen (specimen) 10/31/2015 10:07 AM EST 10/31/2015 10:28 AM EST Narrative Resulting Agency Comment Spec In Lab Charlotte Gonzalez MD CHEMISTRY ORDERABLES Performing Organization Address City/State/[facility] Co de Phone Number [facility] [place] [phone] * High Sensitivity CRP (10/31/2015 10:07 AM EST) C-Reactive Protein High Sensitivity 1.8 mg/L [facility] Comment: Interpretations: 1) For accurate cardiac risk assessment, the average of 2 values >2 weeks apart should be obtained (ref 1&2). A value >10 mg/L indicates an inflammatory condition, concentrations >10 mg/L should not be used for cardiac risk assessment. ?<1.0 mg/L: low risk ?1.0 - 3.0 mg/L: moderate risk ?>3.0 mg/L: high risk groups for future cardiovascular events 2) The general reference range of apparently healthy individuals using this test is <5.0 mg/L (derived from the test package insert) References: 1. Aurelia OMER et. al. ??AHA/CDC Scientific Statement: Markers of Inflammation and Cardiovascular Disease. ??Circulation 2003; 107:499-511 2. Dottie PM. ??Clinical applications of C-reactive protein for cardiovascular disease detection and prevention. ??Circulation 2003; 107:363-369 Blood specimen (specimen) 10/31/2015 10:07 AM EST 10/31/2015 10:28 AM EST Narrative Resulting Agency Comment Spec In Lab Kalen De Anda MD CHEMISTRY ORDERABLES [facility] [place] [address] * Comprehensive metabolic panel (non-fasting) (10/31/2015 10:07 AM EST) Glucose 95 65 - 199 mg/dL [facility] Comment:Diabetes: >=200 mg/d L plus symptoms Blood Urea Nitrogen 13 10 - 20 mg/dL [facility] Creatinine 0.97 0.80 - 1.50 mg/dL [facility] Comment: Please note that the pediatric reference intervals supplied above were not validated at [facility]. Results from pediatric patients should be interpreted in conjunction to the patient's age, height and muscle mass. Sodium 141 135 - 145 mmol/L [facility] Potassium 4.0 3.5 - 5.0 mmol/L [facility] Comment: Please note: ??Patients with WBC >100,000 may have falsely elevated Potassium levels. ??For accurate Potassium quantification in these patients send serum separator tube (gold top) for subsequent determinations. ??Contact the Clinical Chemistry Laboratory if there are any questions. Chloride 104 98 - 107 mmol/L [facility] Carbon Dioxide 26 22 - 31 mmol/L [facility] Anion Gap 11 5 - 15 mmol/L [facility] Calcium 8.9 8.5 - 10.5 mg/dL [facility] Protein, Total 6.1 6.1 - 8.0 gm/dL [facility] Albumin 3.7 3.2 - 5.2 gm/dL [facility] Aspartate Aminotransferase 17 0 - 39 unit/L [facility] Alanine Aminotransferase 17 0 - 55 unit/L [facility] Alkaline Phosphatase 67 40 - 120 unit/L [facility] Bilirubin, Total 0.6 0.2 - 1.3 mg/dL [facility] Bilirubin, Direct 0.1 0.0 - 0.3 mg/dL [facility] Est Glomerular Filtration Rate >60 >=60 [facility] Comment: This estimated GFR (eGFR) value was calculated using the MDRD equation which has been validated on patients between the ages of 18 and 70. The MDRD should not be used to assess kidney function in patients < 18 years of age or in patients with extremes of body mass, or in patients with acute kidney failure. This value should be multiplied by 1.2 for patients. For further information please copy and paste the following links into your internet browser. http://[employer]/DHnkdep http://[employer]/DHMCnkf Blood specimen (specimen) 10/31/2015 10:07 AM EST 10/31/2015 10:28 AM EST Narrative Resulting Agency Comment Spec In Lab Kalen De Anda MD CHEMISTRY ORDERABLES [facility] [place] [address] documented in this encounter Visit Diagnoses Diagnosis Rheumatoid arthritis with positive rheumatoid factor, involving unspecified site [M05.70] High risk medication use Encounter for long-term (current) use of other medications Medication monitoring encounter Encounter for therapeutic drug monitoring Encounter for long-term current use of medication documented in this encounter Care Teams Sand Technician Relationship Specialty Start Date End Date Arelis Michele MD [address] [place] [address] PCP - General 11/16/13 06/10/18 documented as of this encounter
--- OUTSIDE RECORDS SUMMARY | 2024-04-06 02:30 | XMS_ITS | Encounter Summary ---
[place] [address] Care Team Providers Care Mechanical Shovel Operator Name Role Phone Arelis Michele MD Primary Care Provider Reason for Visit * Reason Onset Date Comments Other 04/21/2018 Encounter Details Date Type Department Care Team (Late Contact Info) Description 04/21/2018 [place] [address] Lionel Rabago, RN Other Social History Tobacco Use Types [...] Telephone Encounter - Lionel Rabago RN - 04/21/2018 10:18 AM EDT Billie from [facility] calls, requests new orders for Rituxan infusion, expires 05/16. documented in this encounter Plan of Treatment Upcoming Encounters Date Type Department Care Team (Late Contact Info) Description 04/28/2024 12:00 PM EDT [place] [address] documented as of this encounter Visit Diagnoses Not on filedocumented in this encounter Care Teams Mechanical Shovel Operator Relationship Specialty Start Date End Date Arelis Michele MD [address] [place] [address] PCP - General 11/16/13 06/10/18 documented as of this encounter
--- OUTSIDE RECORDS SUMMARY | 2024-04-06 02:30 | XMS_ITS | Encounter Summary ---
[place] [address] Care Team Providers Care Chinchilla Machine Operator Name Role Phone Arelis Michele MD Primary Care Provider [phone] Encounter Details Date Type Department Care Team (Late st Contact Info) Description 10/03/2015 - 10/03/2015 11:59 PM EST Hospital Encounter [place] [address] [address] Neha Temporary Pain Discharge Disposition: Home [...] Sig Dispensed Refills Start Date End Date aspirin 81 mg EC tablet Take 81 [...] Med - OTC mositurizing eye drops 11/02/2010 Budesonide-Formoterol (SYMBICORT) 80-4.5 mcg/actuation HFA Aerosol Inhaler [...] 12:00 PM EDT Appointment [place] [address] documented as of this encounter Procedures Procedure Name Priority Date/Time Associated Diagnosis Comments FILM LIBRARY STORAGE ONLY MR HEAD AND SPINE Routine 10/03/2015 12:00 AM EST Pain documented in this encounter Results * Film Library- Storage only MR Head and Spine (10/03/2015 12:00 AM EST) Narrative [facility] - 02/08/2016 2:09 PM EDT This exam is for storage only and is auto-finalizing. Dr Sanchez [facility] FILM LIBRARY ORD ERABLES [place], [place] documented in this encounter Visit Diagnoses Diagnosis Pain Generalized pain documented in this encounter Care Teams Chinchilla Machine Operator Relationship Specialty Start Date End Date Arelis Michele MD [address] [place] [address] PCP - General 11/16/13 06/10/18 documented as of this encounter
--- OUTSIDE RECORDS SUMMARY | 2024-04-06 02:30 | XMS_ITS | Encounter Summary ---
Author Organization [facility] [place] [address] Care Team Providers Care Pattern Drafter Name Role Phone Arelis Michele MD Primary Care Provider [phone] Reason for Referral * High Dollar Medication (Routine) - Specialty Diagnoses / Procedures Referred By Contmabel t Referred To Contact Med Infusion Diagnoses Rheumatoid arthritis with positive rheumatoid factor, involving unspecified site Kandy Espana, [facility] [place] [address] [facility] Med Infusion [address] [place] [id number] Referral ID Status Reason Start Date Expiration Date V isits Requested Visits Authorized [id number] Consult, Test & Treat 10/07/2015 10/06/2016 3 3 Encounter Details Date Type Department Care Team (Late st Contact Info) Description 10/07/2015 [place] [address] Kandy Espana, RN [facility] [place] [address] Rheumatoid arthritis with positive rheumatoid factor, involving unspecified site [M05.70] Social History Tobacco Use Types Packs/Day Years [...] 12:00 PM EDT [place] [address] Scheduled Referrals Name Type Priority Associated Diagnoses Orde r Schedule Auth Request for Infusion Medication Outpatient Referral Routine Rheumatoid arthritis with positive rheumatoid factor, involving unspecified site [M05.70] Ordered: 10/07/2015 documented as of this encounter Visit Diagnoses Diagnosis Rheumatoid arthritis with positive rheumatoid factor, involving unspecified site [M05.70] documented in this encounter Care Teams Pattern Drafter Relationship Specialty Start Date End Date Arelis Michele MD [address] [place] [address] PCP - General 11/16/13 06/10/18 documented as of this encounter
--- OUTSIDE RECORDS SUMMARY | 2024-04-06 02:30 | XMS_ITS | Encounter Summary ---
Author Organization [facility] [place] [address] Care Team Providers Care Hand Laster Name Role Phone Arelis Michele MD Primary Care Provider [phone] Reason for Visit * Reason Comments IV Medication * High Dollar Medication (Routine) - Specialty Diagnoses / Procedures Referred By Azam corbett Referred To Contact Med Infusion Diagnoses Rheumatoid arthritis with positive rheumatoid factor, involving unspecified site Kandy Espana, RN [facility] [place] [address] [facility] [place] Med Infusion [address] [place] [id number] Referral ID Status Reason Start Date Expiration Date V isits Requested Visits Authorized [id number] Consult, Test & Treat 10/07/2015 10/06/2016 3 3 Encounter Details Date Type Department Care Team (Latest Contact Info) Description 10/31/2015 10:13 AM EST - 10/31/2015 11:59 PM EST Hospital Encounter [place] [address] Rheumatoid arthritis with positive rheumatoid factor, involving unspecified site [M05.70] Discharge Disposition: Home Social History Tobacco Use [...] Sign Reading Time Taken Comments Blood Pressure 131/60 10/31/2015 10:26 AM EST Pulse 72 10/31/2015 10:26 AM EST Temperature 36.6 ??C (97.9 ??F) 10/31/2015 10:[address] Respiratory Rate 16 10/31/2015 10:26 AM EST Oxygen Saturation 97% 10/31/2015 10:26 AM EST Inhaled Oxygen Concentration - - Weight - [...] Med - OTC mositurizing eye drops 11/02/2010 levothyroxine (SYNTHROID) 25 mcg Tablet daily. 10/13/2015 [...] as of this encounter Progress Notes * Bree Diaz RN - 10/31/2015 10:43 AM EST Patient Name: Wesly Ybarra Patient Age: 65 y.o. Birthdate: 1950 Admit date: 10/31/2015 Attending Physician: No att. providers found INFUSION THERAPY ADMINISTRATION NOTES DIAGNOSIS: The encounter diagnosis was Rheumatoid arthritis with positive rheumatoid factor, involving unspecified site [M05.70]. REASON FOR VISIT: Rituxan x1 q4mths SUBJECTIVE: I've had sinus infections that they couldn't get under control since last summer. I finally got azithromycin last month and that did the trick. OBJECTIVE: Last dose received on january 13, 2015 VITALS: BP 131/60 mmHg Pulse 72 Temp(Src) 36.6 ??C (97.9 ??F) (Oral) Resp 16 SpO2 97% IF PAIN >5, INTERVENTION AND EFFECTIVENESS: na IV ACCESS: Peripheral IV - Single Lumen 10/31/15 1025 basilic vein right (medial side of arm) 24 gauge;3/4 in length (Active) HYDRATION, RATE, START TIME, STOP TIME NS @ KVO 1025. Off with infusion ANTIEMETICS/PREMEDS, DOSE, ROUTE, START TIME, STOP TIME Methylprednisolone 100 mg IV @ 1030 to 1045 Benadryl 25 mg IV@ 1045 to 1100 Patient identification and orders checked against actual dose given at bedside by Jesús Garcia RN. TREATMENT/BLOOD/OTHER, DOSE, ROUTE, START TIME, STOP TIME ??? acetaminophen 650 mg Oral Once ### ??? diphenhydrAMINE 25 mg Intravenous Once ### ??? methylPREDNISolone 100 mg Intravenous Once ### ??? riTUXimab (RITUXAN) infusion 1,000 mg Intravenous Once ### Administration times: 1100 to 1410. 2nd schedule used. REACTIONS (DESCRIPTION, TIME, INTERVENTION AND EFFECTIVENESS) None. ASSESSMENT: Tolerated infusion well. PLAN: Return to clinic in 4 months in February 2016. Follow up per rheumatology clinic. documented in this encounter Plan of Treatment Upcoming Encounters Date Type Department Care Team (Late st Contact Info) Description 04/28/2024 12:00 PM EDT [place]ointment [place] [phone] documented as of this encounter Visit Diagnoses Diagnosis Rheumatoid arthritis with positive rheumatoid factor, involving unspecified site [M05.70] documented in this encounter Administered Medications Inactive Administered Medications - up to 3 most recent administrations Medication Order MAR Action Action Date Dose Rate Site diphenhydrAMINE (BENADRYL) injection 25 mg 25 mg, Intravenous, ONCE, 1 dose, On Sat10/31/15 at 1045, FIRST INFUSION Upon arrival prior to rituximab., Outpatient Transfusion, Routine Given 10/31/2015 10:45 AM EST 25 mg methylPREDNISolone sodium succinate (PF) (solu-MEDROL) injection 100 mg 100 mg, Intravenous, ONCE, 1 dose, On Sat10/31/15 at 1045, FIRST INFUSION Upon arrival prior to rituximab., Outpatient Transfusion Given 10/31/2015 10:30 AM EST 100 mg riTUXimab (RITUXAN) 1,000 mg in sodium chloride 0.9% 500 mL infusion 1,000 mg, Intravenous, ONCE, 1 dose, On Sat10/31/15 at 1115, FIRST INFUSION Administer intravenously at an initial [...] Transfusion, Indication: see associated diagnosis New Bag 10/31/2015 11:00 AM EST 1,000 mg documented in this encounter Care Teams Hand Laster Relationship Specialty Start Date End Date Arelis Michele MD [address] [place] [address] PCP - General 11/16/13 06/10/18 documented as of this encounter
--- OUTSIDE RECORDS SUMMARY | 2024-04-06 02:31 | XMS_ITS | Encounter Summary ---
Author Organization [facility] [place] [address] Care Team Providers Care Flame Cutting Machine Operator Name Role Phone Lee Michele MD Primary Care Provider [phone] Encounter Details Date Type Department Care Team (Late st Contact Info) Description 12/15/2014 10:45 AM EDT [place] [address] Kandy Espana, RN [facility] [place] [address] Rheumatoid arthritis(946.0); High risk medication use; Encounter for long-term (current) use of other medications; Neck mass; Dry mouth Discharge Disposition: Home Social History Tobacco Use [...] Sign Reading Time Taken Comments Blood Pressure 118/70 12/15/2014 10:52 AM EDT Pulse 73 12/15/2014 10:52 AM EDT Temperature 36.4 ??C (97.5 ??F) 12/15/2014 10:52 AM E DT Respiratory Rate - - Oxygen Saturation 97% 12/15/2014 10:52 AM EDT Inhaled Oxygen Concentration - - Weight 97.5 kg (215 lb) 12/15/2014 10:52 AM EDT Height 182.9 cm (6') 12/15/2014 10:52 AM EDT Body Mass Index 29.16 12/15/2014 10:52 AM EDT documented in this encounter Patient Instructions * Patient Instructions* Kandy Espana APRN - 12/15/2014 11:32 AM EDT 1. Taper medrol as directed: ?? 4 mg odd days and 2 mg (1/2 tab) on even days until end of the month. ?? May 1 - take 2 mg every day. 2. Continue methotrexate 2.5 mg (1 tab) every WED and folic acid 3. Rituxan infusion 01/13/2015. Labs today and set up CT scan documented in this encounter Progress Notes * Kandy Espana APRN - 12/15/2014 7:19 AM EDT Established Patient Follow Up - Rheumatology Clinic Wesly Ybarra is a 64 y.o.male seen for ongoing evaluation and management of rheumatoid arthritis. He is unaccompanied. Patient Active Problem List Diagnosis Code ??? RA (rheumatoid arthritis) 714.0 ??? Osteopenia 733.90 ??? GERD (gastroesophageal reflux disease) 530.81 ??? Hyperlipidemia 272.4 ??? Depression 311 ??? HTN (hypertension) 401.9 ??? Burning sensation in eye 379.99 ??? Chronic cough 786.2 ??? SOB (shortness of breath) 786.05 ??? Post-nasal drip 784.91 ??? Cardiomyopathy 425.4 INTERVAL HISTORY: Ongoing methotrexate 2.5 mg po weekly, medrol 4 mg po daily. No joint swelling, sustained AM joint stiffness or pain. Hands sore at night. Continues acetaminophen 1000 mg po QAM, prn - discussed indications - OA and cold weather. Appetite good, sleep restful. Dry cough, no fever or chills, no weight change. Has noted swelling near neck, not tender. Mouth dry, multiple tooth extractions for decay, no oscar-procedural complications or infection. Last Rituxan infusions 12/16 and 09/01/2014. (Course #2). Previously reported decrease in methotrexate (per Cardiology) to 2.5 mg po weekly and ongoing folic acid 3 mg po daily. Reports seen by LEE MICHELE MD in September. Ongoing PT for deconditioning -> 2 session/week.Continues treatment for dry mouth and dry eyes (evoxac and moisturizing eye drops with benefit). States advised by sister to present list of concerns and symptoms and diagnoses today to review anddiscuss. Reports greatest concern is being less active, concerned about cardiac diagnosis (decreased EF), history of recurrent sinusitis, nasal congestion, cough, depression, anxiousness and poor sleep. Previously noted to have been seen in PULM at [facility] (DH in past notes in eDH -> PULM encounter in 10/2013 (notes in eDH - chronic cough ? Eosinophilic bronchitis/no evidence of RAD or ILD). Uncertain of outcome of PULM OSH consult; no notes for review. Cardiology - underwent cardiac cath and understands no need for stent. Knows that being active is good for heart. Feels depression and anxiousness contribute to fatigue and non-restorative sleep. Sleep study summer 2013 - no PINEDA, no central sleep apnea. 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 Continues to live with brother, has own room and TV. Home previously occupied, now occupied by youngest sister's daughter, significant other and children. Two other sisters, one with new diagnosis ofdementia (like mother). Reports is being contacted daily to complete health survey, answering 5 questions about How I am doing. Reports no doing much right now, due to cold weather and snow. 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 Just sitting at window, looking outside. Most happy when at [place]. Most of life, active physically, feels best when doing something. Reports no limitations in self-care activities, but continues to avoid strenuous activity due to persistent shortness of breath and uncertainty related to what his heart will allow him to do. No chest pain, diaphoresis or dizziness. Reports no fever, chills, visual changes, oral ulcers, + dry mouth, painful or difficult swallowing, diarrhea or skin rash. Denies other changes in medical, surgical or social history. Current Outpatient Prescriptions on File Prior to Visit Medication Sig Dispense Refill ??? gabapentin (NEURONTIN) 300 mg Capsule Take 300 mg by mouth daily. Not using ??? clopidogrel (PLAVIX) 75 mg tablet Take 75 mg by mouth daily. ??? metoprolol succinate (TOPROL-XL) 25 mg 24 hr tablet Take 25 mg by mouth daily. ??? aspirin 81 mg EC tablet Take 81 mg by mouth daily. ??? terazosin (HYTRIN) 1 mg capsule Take 1 mg by mouth nightly. ??? fluticasone (FLOVENT) 110 mcg/actuation inhaler Inhale 1 puff into the lungs 2 times daily. ??? albuterol (PROVENTIL HFA;VENTOLIN HFA) 90 mcg/actuation inhaler Inhale 2 puffs into the lungs every 4 hours as needed. Use with spacer ??? fluticasone (FLONASE) 50 mcg/actuation nasal spray 1 spray by Each Nare route 2 times daily. 16g 12 ??? methylPREDNISolone (MEDROL) 4 mg tablet Take 1 tablet by mouth daily. 90 tablet 3 ??? methotrexate 2.5 mg tablet Take 6 tablets by mouth once a week. 78 tablet 3 ??? folic acid (FOLVITE) 1 mg tablet Take 1 tablet by mouth 3 times daily. 90 tablet 3 ??? venlafaxine (EFFEXOR-XR) 75 mg 24 hr [...] Allergies Allergen Reactions ??? Calcium kidney stones PHYSICAL EXAMINATION: There were no vitals filed for this visit. Constitutional: Pleasant adult male, in no acute distress. HEENT: Normocephalic, atraumatic. Eyes -sclera clear. Oral mucous membranes moist and intact. No thyromegaly, anterior cervical lymphadenopathy, parotid or submandibular gland enlargement. Chest: Heart RRR, no murmur or extra sounds. Lungs: No wheezing, rales or rhonchi. Neurological: Oriented x 3; CN II-XII grossly intact. Speech clearly articulated. Gait even and co-ordinated. Musculoskeletal: Muscle mass bilaterally symmetric. JointExam: Neck ROM functional, (-) tender, limited in bilateral rotaton/flexion.. Bilateral shoulder AROM functional, (-) tender at left; decreased internal rotation at right. (+) tender at anterior joint line. Elbow ROM full, (-) tender;(-) synovitis, extensor surface nodules, or effusion. Wrist ROM functional; (-) tender; (-) erythema or warmth. MCPs/PIPs/DIPs: (-) swelling; (+) CMC thickening. Makes a complete fist and near complete claw. Bilateral knees - no effusion, erythema, or warmthl; (-) tender. Bilateral ankle ROM functional, decreased in inversion/eversion (-) tender; no swelling. MTPs tender to compression. Skin: Intact; (-) rash, telangiectasias, + nail dystrophy. ASSESSMENT: Rheumatoid arthritis; high risk medication; medication safety monitoring; depression and anxiety; impaired sleep; sicca symptoms. PLAN: ?? Case review with staff who also examined hte patient. ?? CT neck schneduled. ?? Labs pending, including LDH and SPEP. ?? Further planning pending review. ?? Prednisone taper - written instructions. ?? Cannot take Mobic due toPlavix - phone contact with to review. ?? Continue MTX 2.5 mg po weekly. ?? Folic acid daily ?? Ongoing absence of recurrent infection at this time, pt records and modifiable factors associated with heart health (being active, working with PCP related to HTN management, CHOL, sleep hygiene, lifestyle and PT involvement, possible use of equipment at home to increase activity). ?? Acknowledged pt commitment to improved well-being thorugh with participation in PT and phone contact health assessment. ?? Continue treatments for dry mouth and blepharitis. ?? Continue acetaminophen 1000 mg po QAM, prn - discussed indications - OA and cold weather.. ?? Ongoing osteoporosis prevention strategies, dietary intake, supplementation with vitamin D (no calcium due to kidney stones), ongoing weightbearing activity and exercise. ?? Annual influenza vaccine recommended. ?? Ongoing contact/follow up LEE MICHELE MD and Cardiology. ?? Further planning pending review of diagnostics. ?? Follow up at time of Rtiuxan infusion, sooner for concerns, questions or increased signs/symptoms. Addendum: EXAMINATION: CT Neck With Contrast CLINICAL HISTORY: full neck INGRID neck - supraclavicular; discrete mass right supraclavicular ~ 2.5 x 3 cm. on MTX and Rituxan for RA, history of enbrel use. Chronic steroid TECHNIQUE: Examination is done following intravenous administration of 110 mL of Omnipaque 350. COMPARISON: None FINDINGS: Variation shows no sign of mass or adenopathy. Thyroid gland is well-defined. There is some fatty change in the parotid glands is not nonspecific, but which can be associated with sicca syndrome. Clinical correlation needed. There are no signs of laryngeal or pharyngeal mass or other concerning features. No obvious bony lesions are seen. No discrete supraclavicular abnormality is seen on either side.. IMPRESSION IMPRESSION: No sign of mass or adenopathy. Fatty change in the parotid glands, nonspecific Component Latest Ref Rng 12/15/2014 Glucose Lvl 60 - 199 mg/dL 90 BUN 10 - 20 mg/dL 18 Creatinine 0.80 - 1.50 mg/dL 0.91 Sodium 135 - 145 mmol/L 140 Potassium 3.5 - 5.0 mmol/L 3.9 Chloride 98 - 107 mmol/L 102 CO2 22 - 31 mmol/L 26 Anion Gap 5 - 15 mmol/L 12 Calcium 8.5 - 10.5 mg/dL 9.0 Total Protein 6.1 - 8.0 gm/dL 6.7 Albumin 3.2 - 5.2 gm/dL 3.9 AST 0 - 39 unit/L 20 ALT 0 - 55 unit/L 26 Alk Phos 40 - 120 unit/L 83 Total Bilirubin 0.2 - 1.3 mg/dL 0.6 Bili, Direct 0.0 - 0.3 mg/dL 0.1 Estimated GFR >=60 >60 Neutrophils % 64.9 Neutr Abs (ANC) 1.50 - 6.30 x10(3)/mcL 6.84 (H) Lymphocytes % 22.8 Lymphocytes Abs 1.0 - 3.6 x10(3)/mcL 2.4 Monocytes % 10.2 Monocyte Abs 0.2 - 1.0 x10(3)/mcL 1.1 (H) Eosinophils % 1.7 Eosinophils Abs 0.0 - 0.5 x10(3)/mcL 0.2 Basophils % 0.2 Basophils Abs 0.0 - 0.2 x10(3)/mcL 0.0 Immature Gran % 0.20 Brianna Gran Abs 0.00 - 0.05 x10(3)/mcL 0.02 WBC 4.0 - 10.0 x10(3)/mcL 10.5 (H) RBC 4.63 - 6.08 x10(6)/mcL 5.09 Hemoglobin 13.7 - 17.5 gm/dL 15.9 Hematocrit 40.0 - 51.0 % 48.0 MCV 79.0 - 92.0 fL 94.3 (H) MCH 25.6 - 32.2 pg 31.2 MCHC 32.0 - 36.5 gm/dL 33.1 Platelets 145 - 370 x10(3)/mcL 281 RDWSD 35.0 - 46.0 fL 49.2 (H) RDWCV 10.9 - 14.4 % 14.4 MPV 9.0 - 12.0 fL 9.9 Total Prot Elec 6.1 - 8.0 gm/dL 6.2 Albumin Elect 3.60 - 6.00 gm/dL 4.04 Alpha1-Globulin 0.10 - 0.30 gm/dL 0.15 Alpha2-Globulin 0.40 - 0.90 gm/dL 0.79 Beta Globulin 0.50 - 1.00 gm/dL 0.71 Gamma Globulin 0.50 - 1.30 gm/dL 0.51 M1 Band None Detected gm/dL None Detected Scan See Note LDH 110 - 220 unit/L 182 CRP High Sens 2.9 Sed Rate 0 - 15 mm/hr 6 Phone contact with Mr. Ybarra. Results reviewed. documented in this encounter Plan of Treatment Upcoming Encounters Date Type Department Care Team (Late st Contact Info) Description 04/28/2024 12:00 PM EDT [place] [address] Scheduled Orders Name Type Priority Associated Diagnoses Orde r Schedule CBC (with Diff) Lab Routine Rheumatoid arthritis(714.0) High risk medication use Encounter for long-term (current) use of other medications Neck mass Expected: 12/15/2014, Expires: 12/16/2015 documented as of this encounter Procedures Procedure Name Priority Date/Time Associated Diagnosis Comments HEMOGRAM Routine 12/15/2014 12:29 PM EDT Encounter for long-term (current) use of other medications DIFFERENTIAL, AUTOMATED Routine 12/15/2014 12:29 PM EDT Encounter for long-term (current) use of other medications SEDIMENTATION RATE Routine 12/15/2014 12 :29 PM EDT Rheumatoid arthritis(714.0) High risk medication use Encounter for long-term (current) use of other medications Neck mass CBC (WITH DIFF) Routine 12/15/2014 12:29 PM EDT Encounter for long-term (current) use of other medications CRP, CARDIAC RISK (HS CRP) Routine 12/15/2014 12:29 PM EDT Rheumatoid arthritis(714.0) High risk medication use Encounter for long-term (current) use of other medications Neck mass PROTEIN ELECTROPHORESIS, SERUM Routine 12/15/2014 12:29 PM EDT Rheumatoid arthritis(714.0) High risk medication use Encounter for long-term (current) use of other medications Neck mass LACTATE DEHYDROGENASE Routine 12/15/2014 12:29 PM EDT Rheumatoid arthritis(714.0) High risk medication use Encounter for long-term (current) use of other medications Neck mass COMPREHENSIVE METABOLIC PANEL Routine 12/15/2014 12:29 PM EDT Rheumatoid arthritis(714.0) High risk medication use Encounter for long-term (current) use of other medications Neck mass documented in this encounter Results * CT neck soft tissue with contrast (12/17/2014 12:20 PM EDT) Anatomical Region Laterality Modality Neck, Head Computed Tomogra phy 12/17/2014 12:2 0 PM EDT Impressions 12/17/2014 3:27 PM EDT IMPRESSION: No sign of mass or adenopathy. Fatty change in the parotid glands, nonspecific. Narrative 12/17/2014 3:27 PM EDT EXAMINATION: CT Neck With Contrast CLINICAL HISTORY: full neck INGRID neck - supraclavicular; discrete mass right supraclavicular ~ 2.5 x 3 cm. ??on MTX and Rituxan for RA, history of enbrel use. ??Chronic steroid TECHNIQUE: Examination is done following intravenous administration of 110 mL of Omnipaque 350. COMPARISON: None FINDINGS: Variation shows no sign of mass or adenopathy. Thyroid gland is well-defined. There is some fatty change in the parotid glands is not nonspecific, but which can be associated with sicca syndrome. Clinical correlation needed. There are no signs of laryngeal or pharyngeal mass or other concerning features. No obvious bony lesions are seen. No discrete supraclavicular abnormality is seen on either side.. Procedure Note Chema Gomez MD - 12/17/2014 EXAMINATION: CT Neck With Contrast CLINICAL HISTORY: full neck INGRID neck - supraclavicular; discrete massright supraclavicular ~ 2.5 x 3 cm. on MTX and Rituxan for RA, history of enbrel use. Chronic steroid TECHNIQUE: Examination is done following intravenous administration of 110mL of Omnipaque 350. COMPARISON: None FINDINGS: Variation shows no sign of mass or adenopathy. Thyroid gland iswell-defined. There is some fatty change in the parotid glands is not nonspecific, butwhich can be associated with sicca syndrome. Clinical correlation needed. Thereare no signs of laryngeal or pharyngeal mass or other concerning features. Noobvious bony lesions are seen. No discrete supraclavicular abnormality is seen oneither side.. IMPRESSION IMPRESSION: No sign of mass or adenopathy. Fatty change in the parotid glands,nonspecific. Serina Cannon MD IMG CT ORDERABLES * (ABNORMAL) Differential, Automated (12/15/2014 12:29 PM EDT) Neutrophil % 64.9 % CERNER MILLENNIUM Neutrophil Absolute 6.84(H) 1.50 - 6.30 x10(3)/mc L CERNER MILLENNIUM Lymph % 22.8 % CERNER MILLENNIUM Lymphocytes Abs 2.4 1.0 - 3.6 x10(3)/mc L CERNER MILLENNIUM Monocyte % 10.2 % CERNER MILLENNIUM Monocyte Abs 1.1(H) 0.2 - 1.0 x10(3)/mc L CERNER MILLENNIUM Eos % 1.7 % CERNER MILLENNIUM Eosinophils Abs 0.2 0.0 - 0.5 x10(3)/mc L CERNER MILLENNIUM Basophil % 0.2 % CERNER MILLENNIUM Baso Absolute 0.0 0.0 - 0.2 x10(3)/mc L CERNER MILLENNIUM Immature Gran % 0.20 % CERN ER MILLENNIUM Comment: Immature granulocytes(IG's)percentage and absolute count will include metamyelocytes, myelocytes, and promyelocytes. Blood smears from CBCs yielding IG's will be scanned manually for concordance. If this scan disagrees with the automated IG or if promyelocytes are noted, a manual differential will be performed. Immature Gran Absolute 0.02 0.00 - 0.05 x10(3)/mc L CERNER MILLENNIUM Blood specimen (specimen) 12/15/2014 12:29 PM EDT 12/15/2014 12:41 PM EDT Narrative Resulting Agency Comment Spec In Lab Tom Gan MD HEMATOLOGY ORDERABLE S CERNER MILLENNIUM * (ABNORMAL) Hemogram (12/15/2014 12:29 PM EDT) White Blood Cell 10.5(H) 4.0 - 10.0 x10(3)/mc L CERNER MILLENNIUM Red Blood Cell 5.09 4.63 - 6.08 x10(6)/mc L CERNER MILLENNIUM Hemoglobin 15.9 13.7 - 17.5 gm/dL CERNER MILLENNIUM Hematocrit 48.0 40.0 - 51.0 % CERNER MILLENNIUM Mean Cell Volume 94.3(H) 79.0 - 92.0 fL CERNER MILLENNIUM Mean Cell Hemoglobin 31.2 25.6 - 32.2 pg CERNER MILLENNIUM Mean Cell Hemoglobin Concentration 33.1 32.0 - 36.5 gm/dL CERNER MILLENNIUM Platelet 281 145 - 370 x10(3)/mc L CERNER MILLENNIUM RDW Standard Deviation 49.2(H) 35.0 - 46.0 fL CERNER MILLENNIUM RDW coefficient of variation 14.4 10.9 - 14.4 % CERNER MILLENNIUM Mean Platelet Volume 9.9 9.0 - 12.0 fL CERNER MILLENNIUM Blood specimen (specimen) 12/15/2014 12:29 PM EDT 12/15/2014 12:41 PM EDT Narrative Resulting Agency Comment Spec In Lab Tom Gan MD HEMATOLOGY ORDERABLE S Performing Organization Address City/[facility] Co de Phone Number [facility] * Sedimentation rate (12/15/2014 12:29 PM EDT) Pathologist [facility] [place] Sedimentation Rate Automated 6 0 - 15 mm/hr [facility] Blood specimen (specimen) 12/15/2014 12:29 PM EDT 12/15/2014 12:41 PM EDT Narrative Resulting Agency Comment Spec In Lab Serina Cannon MD HEMATOLOGY ORDERABLE S Performing Organization Address City/[facility] Co de Phone Number [facility] * High Sensitivity CRP (12/15/2014 12:29 PM EDT) C-Reactive Protein High Sensitivity 2.9 mg/L [facility] Comment: Interpretations: 1) For accurate cardiac risk [...] and Cardiovascular Disease. ??Circulation 2003; 107:499-511 2. Ridker PM. ??Clinical applications of C-reactive protein for cardiovascular disease detection and prevention. ??Circulation 2003; 107:363-369 Blood specimen (specimen) 12/15/2014 12:29 PM EDT 12/15/2014 12:41 PM EDT Narrative Resulting Agency Comment Spec In Lab Serina Cannon MD CHEMISTRY ORDERABLES CERNER MILLENNIUM * Protein Electrophoresis, serum (12/15/2014 12:29 PM EDT) Total Prot Electrophoresis 6.2 6.1 - 8.0 gm/dL CERNER MILLENNIUM Albumin Electrophoresis 4.04 3.60 - 6.00 gm/dL CERNER MILLENNIUM Alpha 1 Globulin 0.15 0.10 - 0.30 gm/dL CERNER MILLENNIUM Alpha 2 Globulin 0.79 0.40 - 0.90 gm/dL CERNER MILLENNIUM Beta Globulin 0.71 0.50 - 1.00 gm/dL CERNER MILLENNIUM Gamma Globulin 0.51 0.50 - 1.30 gm/dL CERNER MILLENNIUM M1 Band None Detected None Detected gm/dL CERNER MILLENNIUM Scan See Note CERNER MILLENNIUM Comment:Please see scanned r eport in Chart Review under the [facility] Laboratory Heading. Blood specimen (specimen) 12/15/2014 12:29 PM EDT 12/15/2014 12:41 PM EDT Narrative Resulting Agency Comment Spec In Lab Serina Cannon MD CHEMISTRY ORDERABLES Performing Organization Address City/[facility]/ZIP Co de Phone Number [facility] * Lactate Dehydrogenase (12/15/2014 12:29 PM EDT) Lactate Dehydrogenase 182 110 - 220 unit/L CERNER MILLENNIUM Blood specimen (specimen) 12/15/2014 12:29 PM EDT 12/15/2014 12:41 PM EDT Narrative Resulting Agency Comment Spec In Lab Serina Cannon MD CHEMISTRY ORDERABLES Performing Organization Address City/[facility] Co de Phone Number [facility] * Comprehensive metabolic panel (non-fasting) (12/15/2014 12:29 PM EDT) Glucose 90 60 - 199 mg/dL CERNER MILLENNIUM Comment:Diabetes: >=200 mg/d L plus symptoms Blood Urea Nitrogen 18 10 - 20 mg/dL CERNER MILLENNIUM Creatinine 0.91 0.80 - 1.50 mg/dL CERNER MILLENNIUM Comment: Please note that the pediatric reference intervals supplied above were not validated at [facility]. Results from pediatric patients should be interpreted in conjunction to the patient's age, height and muscle mass. Sodium 140 135 - 145 mmol/L CERNER MILLENNIUM Potassium 3.9 3.5 - 5.0 mmol/L CERNER MILLENNIUM Comment: Please note: ??Patients with WBC >100,000 may have falsely elevated Potassium levels. ??For accurate Potassium quantification in these patients send serum separator tube (gold top) for subsequent determinations. ??Contact the Clinical Chemistry Laboratory if there are any questions. Chloride 102 98 - 107 mmol/L CERNER MILLENNIUM Carbon Dioxide 26 22 - 31 mmol/L CERNER MILLENNIUM Anion Gap 12 5 - 15 mmol/L CERNER MILLENNIUM Calcium 9.0 8.5 - 10.5 mg/dL CERNER MILLENNIUM Protein, Total 6.7 6.1 - 8.0 gm/dL CERNER MILLENNIUM Albumin 3.9 3.2 - 5.2 gm/dL CERNER MILLENNIUM Aspartate Aminotransferase 20 0 - 39 unit/L CERNER MILLENNIUM Alanine Aminotransferase 26 0 - 55 unit/L CERNER MILLENNIUM Alkaline Phosphatase 83 40 - 120 unit/L CERNER MILLENNIUM Bilirubin, Total 0.6 0.2 - 1.3 mg/dL CERNER MILLENNIUM Bilirubin, Direct 0.1 0.0 - 0.3 mg/dL CERNER MILLENNIUM Est Glomerular Filtration Rate >60 >=60 CERNER MILLENNIUM Comment: This estimated GFR (eGFR) value was [...] the following links into your internet browser. [email or web address] Blood specimen (specimen) 12/15/2014 12:29 PM EDT 12/15/2014 12:41 PM EDT Narrative Resulting Agency Comment Spec In Lab Serina Cannon MD CHEMISTRY ORDERABLES CARLOS WALKERIUM documented in this encounter Visit Diagnoses Diagnosis Rheumatoid arthritis(714.0) Rheumatoid arthritis High risk medication use Encounter for long-term (current) use of other medications Encounter for long-term (current) use of other medications Neck mass Swelling, mass, or lump in head and neck Dry mouth Disturbance of salivary secretion Rheumatoid arthritis(714.0) Rheumatoid arthritis High risk medication use Encounter for long-term (current) use of other medications Encounter for long-term (current) use of other medications Neck mass Swelling, mass, or lump in head and neck documented in this encounter Care Teams Flame Cutting Machine Operator Relationship Specialty Start Date End Date Lee Michele MD [address] [place] [address] PCP - General 11/16/13 06/10/18 documented as of this encounter
--- OUTSIDE RECORDS SUMMARY | 2024-04-06 02:31 | XMS_ITS | Encounter Summary ---
Author Organization [facility] [place] [address] Care Team Providers Care Chiropractic Practice Manager Name Role Phone Arelis Michele MD Primary Care Provider [phone] Encounter Details Date Type Department Care Team (Late st Contact Info) Description 12/22/2013 Telephone [place] [address] Kandy Espana, RN [facility] [place] [address] Social History Tobacco Use Types Packs/Day Years [...] encounter Miscellaneous Notes * Telephone Encounter - Kandy Espana, PROBATE PARALEGAL - 12/22/2013 8:02 AM EDT Phone contact on 12/21/2013 - 1 1/2 weeks of increasing bilateral hand swelling, without erythema, warmth or history of injury. Left shoulder pain with stiffness. No recent illness, recurrent infection. Offered evaluation today. Unable to come down. Plan: Increase medrol to 12 mg po until seen in 48 h. Current meds - Current Outpatient Prescriptions on File Prior to Visit Medication Sig Dispense Refill ??? methylPREDNISolone (MEDROL) 16 mg tablet Take 1 tablet by mouth daily. 7 tablet 0 ??? fluticasone (FLONASE) 50 mcg/actuation nasal spray [...] 30 mg capsule 30 mg, PO, QHS documented in this encounter Plan of Treatment Upcoming Encounters Date Type Department Care Team (Late st Contact Info) Description 04/28/2024 12:00 PM EDT Appointment [place] [address] documented as of this encounter Visit Diagnoses Not on filedocumented in this encounter Care Teams Chiropractic Practice Manager Relationship Specialty Start Date End Date Arelis Michele MD [address] [place] [address] PCP - General 11/16/13 06/10/18 documented as of this encounter
--- OUTSIDE RECORDS SUMMARY | 2024-04-06 02:31 | XMS_ITS | Encounter Summary ---
[place] [address] Care Team Providers Care Nutritional Assistant Name Role Phone Arelis Michele MD Primary Care Provider [phone] Reason for Visit * Reason Comments IV Medication Encounter Details Date Type Department Care Team (Latest Contact Info) Description 01/28/2014 11:06 AM EDT - 01/28/2014 11:59 PM EDT Hospital [place] [id number] CLINIC, DR CALHOUN RA (rheumatoid arthritis) Social History Tobacco Use Types Packs/Day Years [...] Sig Dispensed Refills Start Date End Date fluticasone (FLONASE) 50 mcg/actuation nasal sprayIndications:Post-na shelton [...] eye drops 11/02/2010 methylPREDNISolone (MEDROL) 4 mg tablet Take 1 tablet by mouth daily. 90 tablet 3 09/14/2013 12/15/2014 methotrexate 2.5 mg tablet Take 6 tablets by mouth once a week. 78 tablet 3 09/14/2013 01/13/2015 folic acid (FOLVITE) 1 mg tablet Take 1 tablet by mouth 3 times daily. 90 tablet 3 08/11/2013 01/13/2015 venlafaxine (EFFEXOR-XR) 75 mg 24 hr capsule [...] Progress Notes * Jesús Garcia RN - 01/28/2014 2:03 PM EDT Patient Name: Wesly Ybarra Patient Age: 63 y.o. Birthdate: 1950 Admit date: 01/28/2014 Attending Physician: Janell, Dr Swapna MD INFUSION THERAPY ADMINISTRATION NOTES DIAGNOSIS: The encounter diagnosis was RA (rheumatoid arthritis). REASON FOR VISIT: Rituxan day # 15 SUBJECTIVE: Offers no complaints. OBJECTIVE: Last dose received on 01/14/14 VITALS: There were no vitals taken for this visit. IF PAIN >5, INTERVENTION AND EFFECTIVENESS: na IV ACCESS: Peripheral IV - Single Lumen 01/28/14 1130 basilic vein (medial side of arm), right (Active) HYDRATION: NS @ KVO 1130 TO 1145. Off with infusion ANTIEMETICS/PREMEDS, Methylprednisolone 100 mg IV @ 1130 to 1140 Benadryl 25 mg IV@ 1140 to 1145 Patient identification and orders checked against actual dose given at bedside by Jesús Garcia RN TREATMENT/BLOOD/OTHER, Rituxan 1000 mg IV Administration times: See OCT second day dosing schedule used. REACTIONS None. ASSESSMENT: Tolerated infusion well. PLAN: Follow up per rheumatology clinic. documented in this encounter Plan of Treatment Upcoming Encounters Date Type Department Care Team (Late st Contact Info) Description 04/28/2024 12:00 PM EDT [place] [address] documented as of this encounter Visit Diagnoses Diagnosis RA (rheumatoid arthritis) Rheumatoid arthritis documented in this encounter Administered Medications Inactive Administered Medications - up to 3 most recent administrations Medication Order MAR Action Action Date Dose Rate Site riTUXimab (RITUXAN) 1,000 mg in sodium chloride 0.9% 500 mL infusion 1,000 mg, Intravenous, ONCE, 1 dose, On Kanwal 01/28/14 at 1130 New Bag 01/28/2014 11:45 AM EDT 1,000 mg documented in this encounter Care Teams Nutritional Assistant Relationship Specialty Start Date End Date Arelis Michele MD [address] [place] [address] PCP - General 11/16/13 06/10/18 documented as of this encounter
--- OUTSIDE RECORDS SUMMARY | 2024-04-06 02:31 | XMS_ITS | Encounter Summary ---
Author Organization [facility], Located Within [facility] [place] [address] Care Team Providers Care Pre Wave Assembler Name Role Phone Arelis Michele MD Primary Care Provider [phone] Reason for Referral * Consultation (Routine) - Closed Specialty Diagnoses / Procedures Referred By Azam corbett Referred To Contact Diagnoses Skin rash Kandy Espana, RN [facility] [place] [address] Referral ID Status Reason Start Date Expiration Date V isits Requested Visits Authorized [id number] Closed Consult, Test & Treat 03/15/2015 09/11/2015 3 3 Encounter Details Date Type Department Care Team (Late st Contact Info) Description 03/15/2015 11:00 AM EDT Follow-[place] [address] Kandy Espana, RN [facility] [place] [address] Rheumatoid arthritis; High risk medication use; Encounter for long-term (current) use of other medications; Chronic steroid use; Sleep concern; Skin rash Discharge Disposition: Home Social History Tobacco Use [...] Sign Reading Time Taken Comments Blood Pressure 136/76 03/15/2015 11:16 AM EDT Pulse 62 03/15/2015 11:16 AM EDT Temperature 36.3 ??C (97.4 ??F) 03/15/2015 11:16 AM E DT Respiratory Rate - - Oxygen Saturation 100% 03/15/2015 11:16 AM EDT Inhaled Oxygen Concentration - - Weight 97.5 kg (215 lb) 03/15/2015 11:16 AM EDT Height 182.9 cm (6') 03/15/2015 11:16 AM EDT Body Mass Index 29.16 03/15/2015 11:16 AM EDT documented in this encounter Progress Notes * Kandy Espana, INTEGRATION ARCHITECT - 03/15/2015 11:15 AM EDT Established Patient Follow Up - [...] drip 784.91 ??? Cardiomyopathy 425.4 INTERVAL HISTORY: Continues to HOLD methotrexate and folic acid. Continues medrol 4 mg po daily. Last Rituxan in January (single infusion) with ongoing relief of joint swelling, sustained AM joint stiffness or pain. Has remained active, mowing lawn getting out to cabin. Sees ARELIS MICHELE MD in a couple days. Reports goes to bed at 11, awakens at 5-6 A and doesn't;t feel like getting out of bed until 10-11 A. Reports frequent night time awakening due to need empty bladder. (+) Trouble falling asleep and staying asleep. Using med (4-5 years) to help with sleep. Long standing trouble with sleep, but 4-5 month history of trouble getting out of bed. Reports sleep study summer 2013 - no PINEDA, no central sleep apnea. 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 Spending time with brother. In touch with sisters. Daily phone contact by Office - automated survey. Pulmonology and Cardiology in May. Continues to live with brother, has own room and TV. Has been out using [employer]. Most happy when at cabin in [place]. Most of life, active physically, feels best when doing something. Reports skin burning at both sides of face, thinks rosacea and using unspecified topical steroid,2/7 days weekly. Previously seen in DERM at [facility]. Hoping to return for re-assessment. Reports no limitations in self-care activities. No chest pain, diaphoresis or dizziness. Reports nofever, chills, visual changes, oral ulcers, + dry mouth, painful or difficult swallowing, diarrhea or skin rash. Denies other changes in medical, surgical or social history. Current Outpatient Prescriptions on File Prior to Visit Medication Sig Dispense Refill ??? methylPREDNISolone (MEDROL) 4 mg Tablet Take 1 tablet by mouth daily. 90 tablet 3 ??? clopidogrel (PLAVIX) 75 mg tablet Take [...] Lisinopril Dry cough PHYSICAL EXAMINATION: Filed Vitals: 03/15/15 1116 BP: 136/76 Pulse: 62 Temp: 36.3 ??C (97.4 ??F) TempSrc: Oral Height: 182.9 cm (6') Weight: 97.523 kg (215 lb) SpO2: 100% Constitutional: Pleasant adult male, in no acute distress. HEENT: Normocephalic, atraumatic. Eyes -sclera clear. Oral mucous membranes moist and intact. (-) thyromegaly, anterior cervical lymphadenopathy, parotid or submandibular gland enlargement. Chest: Heart RRR, (-) murmur or extra sounds. Lungs: (-) wheezing, rales or rhonchi. Neurological: Oriented x 3; CN II-XII grossly intact. Speech clearly articulated. Gait even and co-ordinated. Musculoskeletal: Muscle mass bilaterally symmetric. Joint Exam: Neck ROM functional, (-) tender, limited in bilateral rotaton/flexion. Bilateral shoulder AROM functional, (-) tender. Elbow ROM full, (-) tender;(-) [...] MTPs tender to compression. Skin: Intact; (+) diffuse sandpapery macular rash anter ior to ear and lateral cheek, INGRID. Superficial bruising on arms; + nail dystrophy. ASSESSMENT: Rheumatoid arthritis; high risk medication; medication safety monitoring; sleep concern; michael; sicca symptoms. PLAN: ?? Continue to HOLD methotrexate and folic acid. ?? Continue medrol 4 mg po daily. ?? Calcium and vitamin D dietary intake and supplementation. ?? Follow up planned PULM/CARDIOLOGY. ?? Rituxan at 4 month interval, single infusion protocol. ?? Ongoing PT/HEP. ?? DERM referral. ?? Future Rituxan infusions at [facility]. ?? Acknowledged pt commitment to improved well-being [...] influenza vaccine recommended. ?? Ongoing contact/follow up ARELIS MICHELE MD and Cardiology. ?? Follow up in 3 months, sooner for concerns, questions or increased signs/symptoms. documented in this encounter Plan of Treatment Upcoming Encounters Date Type Department Care Team (Late st Contact Info) Description 04/28/2024 12:00 PM EDT Appointment [place] [address] Scheduled Referrals Name Type Priority Associated Diagnoses Order Schedule Referral to Dermatology Outpatient Referral Routine Skin rash Ordered: 03/15/2015 documented as of this encounter Visit Diagnoses Diagnosis Rheumatoid arthritis High risk medication use Encounter for long-term (current) use of other medications Encounter for long-term (current) use of other medications Chronic steroid use Encounter for long-term (current) use of steroids Sleep concern Problems related to lack of adequate sleep Skin rash Rash and other nonspecific skin eruption documented in this encounter Care Teams Pre Wave Assembler Relationship Specialty Start Date End Date Arelis Michele MD [address] [place] [address] PCP - General 11/16/13 06/10/18 documented as of this encounter
--- OUTSIDE RECORDS SUMMARY | 2024-04-06 02:31 | XMS_ITS | Encounter Summary ---
[place] [address] Care Team Providers Care Ballistics Laboratory Gunsmith Name Role Phone Arelis Michele MD Primary Care Provider [phone] Reason for Visit * Reason Onset Date Comments Other 02/15/2014 instructions. Encounter Details Date Type Department Care Team (Late st Contact Info) Description 02/15/2014 [place] [phone] Kristy Corbett LPN Other (instructions.) Social History Tobacco Use Types Packs/Day Years [...] encounter Miscellaneous Notes * Telephone Encounter - Emily England RN - 02/16/2014 2:00 PM EDT Scheduled for follow up on March 02. Will review plan -> He can HOLD MTX until seen, although not typical concern for methotrexate and CAD. We'll talk about steroid taper at follow up. Called Wesly and left message that he can hold methotrexate until seen on 03/02/14. Told him Guillermina willdiscuss steroid taper with him at that time. Asked him to call back if he has further questions. * Telephone Encounter - Kristy Corbett LPN - 02/15/2014 1:48 PM EDT Wesly calls and said he had a heart catheterization done last Saturday at [facility] andhe said he was told that the medications he is on from the Backhaul Driver could be the cause of hisissues. I called and spoke with Wesly and he said he was told the Methotrexate and MethylPREDNISolone may be the cause of his issues and I asked him to have [facility] send us the report and the supporting information so Guillermina Espana can look at it and figure out the next step for his treatment. Pt verbalized understanding. Message forwarded to Guillermina Espana. documented in this encounter Plan of Treatment Upcoming Encounters Date Type Department Care Team (Late st Contact Info) Description 04/28/2024 12:00 PM EDT [place] [address] documented as of this encounter Visit Diagnoses Not on filedocumented in this encounter Care Teams Ballistics Laboratory Gunsmith Relationship Specialty Start Date End Date Arelis Michele MD [address] [place] [address] PCP - General 11/16/13 06/10/18 documented as of this encounter
--- OUTSIDE RECORDS SUMMARY | 2024-04-06 02:31 | XMS_ITS | Encounter Summary ---
[place] [address] Care Team Providers Care Deputy Director Of Finance Name Role Phone Gloria Espinoza MD Primary Care Provider [phone] Reason for Visit * Reason Onset Date Comments Other 06/26/2013 plan of tx Encounter Details Date Type Department Care Team (Late st Contact Info) Description 06/26/2013 Telephone [place] [address] Emily England RN Other (plan of tx) Social History Tobacco Use Types Packs/Day Years [...] Telephone Encounter - Emily England RN - 06/26/2013 9:46 AM EDT Wesly called and spoke to financial secretary upset because no one has called him back. Told Anel that there had been a couple messages that it was difficult to understand name and phone number, no date left. Asked her to get information and would call him right back. Wesly wants to know recent lab resu lts and what his plan of treatment should be. Called him back to discuss further, but unable to leave message at phone number he left because voicemail is full. documented in this encounter Plan of Treatment Upcoming Encounters Date Type Department Care Team (Late st Contact Info) Description 04/28/2024 12:00 PM EDT Appointment [place] [address] documented as of this encounter Visit Diagnoses Not on filedocumented in this encounter Care Teams Deputy Director Of Finance Relationship Specialty Start Date End Date Gloria Espinoza MD [facility] [address] [place] [address] [place] [address] PCP - General 07/25/10 11/08/13 documented as of this encounter
--- OUTSIDE RECORDS SUMMARY | 2024-04-06 02:31 | XMS_ITS | Encounter Summary ---
[place] [address] Care Team Providers Care Clay Maker Name Role Phone Arelis Michele MD Primary Care Provider [phone] Reason for Referral * Consultation (Routine) - Closed Specialty Diagnoses / Procedures Referred By Contac t Referred To Contact Radiology Diagnoses Cough Procedures XR Chest Routine PA & Lateral Kandy Espana, [facility] [place] [address] [place] [address] Referral ID Status Reason Start Date Expiration Date V isits Requested Visits Authorized [id number] Closed Specialty Service Requested 06/08/2015 06/07/2016 1 1 Reason for Visit * Consultation (Routine) - Closed Specialty Diagnoses / Procedures Referred By Contac t Referred To Contact Radiology Diagnoses Cough Procedures XR Chest Routine PA & Lateral Kandy Espana RN [facility] [place] [address] [place] [address] Referral ID Status Reason Start Date Expiration Date V isits Requested Visits Authorized [id number] Closed Specialty Service Requested 06/08/2015 06/07/2016 1 1 Encounter Details Date Type Department Care Team (Late st Contact Info) Description 06/08/2015 11:59 AM EDT - 06/08/2015 11:59 PM EDT Hospital Encounter XRay at [address] [place] [address] Doe Obrien MD [facility] [place] [address] Cough Discharge Disposition: Home Social History Tobacco Use [...] [place]ointment [place] [phone] documented as of this encounter Procedures Procedure Name Priority Date/Time Associated Diagnosis Comments XR CHEST PA AND LATERAL Routine 06/08/2015 12:20 PM EDT Cough documented in this encounter Results * XR Chest Routine PA & Lateral (06/08/2015 12:20 PM EDT) Anatomical Region Laterality Modality Chest N/A Digital Radiogra phy Impressions 06/08/2015 1:26 PM EDT IMPRESSION: No acute disease and no significant change since the previous study. Narrative 06/08/2015 1:26 PM EDT EXAMINATION: XR CHEST ROUTINE PA AND LATERAL CLINICAL HISTORY: cough and wheezing, reported history of pneumonia ??(+) fatigue. ??RA on Rituxan, methotrexate therapy in past. ??Stopped ??last year. TECHNIQUE: PA and lateral views chest COMPARISON: June 16, 2013 FINDINGS: No acute disease and no significant change since the previous study. Elevated right hemidiaphragm. No congestive heart failure. No pleural effusions. Procedure Note Uriah Palma MD - 06/08/2015 EXAMINATION: XR CHEST ROUTINE PA AND LATERAL CLINICAL HISTORY: cough and wheezing, reported history of pneumonia (+) fatigue. RA on Rituxan, methotrexate therapy in past. Stopped lastyear. TECHNIQUE: PA and lateral views chest COMPARISON: June 16, 2013 FINDINGS: No acute disease and no significant change since the previous study. Elevated right hemidiaphragm. No congestive heart failure. No pleuraleffusions. IMPRESSION IMPRESSION: No acute disease and no significant change since the previous study. Doe Obrien MD IMG DX ORDERABLES documented in this encounter Visit Diagnoses Diagnosis Cough documented in this encounter Care Teams Clay Maker Relationship Specialty Start Date End Date Arelis Michele MD [address] [place] [address] PCP - General 11/16/13 06/10/18 documented as of this encounter
--- OUTSIDE RECORDS SUMMARY | 2024-04-06 02:31 | XMS_ITS | Encounter Summary ---
Author Organization [facility] [place] [address] Care Team Providers Care Trim Setter Name Role Phone Arelis Michele MD Primary Care Provider [phone] Encounter Details Date Type Department Care Team (Late st Contact Info) Description 08/23/2015 9:45 AM EST Office [place] [address] Kandy Espana, RN [facility] [place] [address] Rheumatoid arthritis; High risk medication use; Medication monitoring encounter [...] Sign Reading Time Taken Comments Blood Pressure 140/73 08/23/2015 9:30 AM EST Pulse 70 08/23/2015 9:30 AM EST Temperature 36.5 ??C (97.7 ??F) 08/23/2015 9:30 AM ES T Respiratory Rate - - Oxygen Saturation 99% 08/23/2015 9:30 AM EST Inhaled Oxygen Concentration - - Weight 91.2 kg (201 lb) 08/23/2015 9:30 AM EST Height 182.9 cm (6') 08/23/2015 9:30 AM EST Body Mass Index 27.26 08/23/2015 9:30 AM EST documented in this encounter Progress Notes * Kandy Espana, CHARGE ACCOUNT CLERK - 08/23/2015 9:46 AM EST Established Patient Follow Up - [...] ??? Post-nasal drip R09.82 ??? Cardiomyopathy I42.9 INTERVAL HISTORY: Reports no joint swelling or sustained AM joint stiffness. (+) Joint stiffness inleft shoulder, uncertain duraiton and no known precipitating event. Reports rare use of acetaminophen for headache only. Last Rituxan was December 2014. Since last office visit, has been seen (routinely) by Cardiology in late July. Reports suspicion of stroke and has been referred to Neurology with appointment schedule September 06. States had headache for 2 days in early July, without visual changes, weakness, nausea, vomiting or chest pain. A bout 4 days later, noted weakness in left arm. No change in speech. Seen and treated with ABX (unspecified) for URI in July, without improvement. Second ABX, erythromycin, received and felt better almost immediately. Completed course. Chavo follow up with PC in end of September. Had been treated for pneumonia in April 2015. Seen in PCP office, CXR and treated with prednisone and unspecified ABX (? levaquin x 7 days). Seen in follow up, cough, persistent, with achy ribs. Cough persists. No fever, some chills, no diaphoresis. Appetite good and weight stable. 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 Had abruptly stopped medrol 4 mg po daily in early May, when he could not afford meds. Continues treatment for dry mouth and dry eyes. Annual influenza vaccine received this fall at PCP office.Continues to HOLD methotrexate and folic acid. Seen in [facility] office at time of last OV. Reports no limitations in self-care activities. No [...] mg capsule 30 mg, PO, QHS ??? cevimeline (EVOXAC) 30 mg capsule Take 30 mg by mouth daily. No current facility-administered medications on file prior to visit. Allergies Allergen Reactions ??? Calcium kidney stones ??? Levothyroxine ??? Lisinopril Dry cough PHYSICAL EXAMINATION: Filed Vitals: 08/23/15 0930 BP: 140/73 Pulse: 70 Temp: 36.5 ??C (97.7 ??F) TempSrc: Oral Height: 182.9 cm (6') Weight: 91.173 kg (201 lb) SpO2: 99% Constitutional: Pleasant adult male, in no acute distress. HEENT: Normocephalic, atraumatic. Eyes -sclera clear. Oral mucous membranes moist and intact. (-) thyromegaly, anterior cervical lymphadenopathy, parotid or submandibular gland enlargement. Chest: Heart RRR, (-) murmur or extra sounds. Lungs: (-) Wheezing, rales or rhonchi. Neurological: Oriented x 3. Speech clearly articulated. Gait even and co-ordinated. Grasp bilaterally symmetric 5/5. Musculoskeletal: Muscle mass bilaterally symmetric. Joint Exam: Neck ROM functional, (-) tender. Bilateral shoulder AROM functional, decreased in all planes at LEFT; (-) tender. Elbow ROM full, (-) tender;(-) synovitis, extensor surface nodules, or effusion. Wrist ROM functional; (-) tender; (+) swelling; (-) erythema or warmth. MCPs/PIPs/DIPs: (-) tender, (-) swelling scattered MCPs and PIPs; (+) CMC thickening. Makes a complete fist and nearcomplete claw. Bilateral knees; (-) effusions, (-) erythema, or warmthl. Bilateral ankle ROM functional, decreased in inversion/eversion (-) tender; (-) swelling. MTPs tender to compression. Skin: Intact; (+) diffuse sandpapery macular rash cheeks; no pustles or papules. Superficial bruising on arms; + nail dystrophy. ASSESSMENT: Rheumatoid arthritis; high risk medication; medication safety monitoring; sicca symptoms. PLAN: ?? HOLD Rituxan until after Neurology consult. ?? Office contact next week. ?? Urgent evaluation for increased dyspnea, fever, productive cough. ?? Consider PULM follow up - PFTs if recurrent cough, dyspnea or infection.. ?? Continue to HOLD methotrexate and folic acid. ?? Calcium and vitamin D dietary intake and supplementation. ?? Consider follow up planned PULM/CARDIOLOG ?? Rituxan at 4 month interval, single infusion protocol -> [facility] to be scheduled after Neurologyconsult note reviewed ?? Continue treatments for dry mouth and blepharitis. ?? Continue acetaminophen 1000 mg po QAM, prn. ?? Ongoing osteoporosis prevention strategies, dietary intake, supplementation with vitamin D (no calcium due to kidney stones), ongoing weightbearing activity and exercise. ?? Annual influenza vaccine recommended. ?? Ongoing contact/follow up ARELIS MICHELE MD and Cardiology. documented in this encounter Plan of Treatment Upcoming Encounters Date Type Department Care Team (Late st Contact Info) Description 04/28/2024 12:00 PM EDT [place]ointment [place] [address] documented as of this encounter Visit Diagnoses Diagnosis Rheumatoid arthritis High risk medication use Encounter for long-term (current) use of other medications Medication monitoring encounter Encounter for therapeutic drug monitoring documented in this encounter Care Teams Trim Setter Relationship Specialty Start Date End Date Arelis Michele MD [address] [place] [address] PCP - General 11/16/13 06/10/18 documented as of this encounter
--- OUTSIDE RECORDS SUMMARY | 2024-04-06 02:31 | XMS_ITS | Encounter Summary ---
Author Organization Formerly [facility] [place] [address] Care Team Providers Care Watch Repair Person Name Role Phone Arelis Michele MD Primary Care Provider [phone] Encounter Details Date Type Department Care Team (Late st Contact Info) Description 01/13/2015 1:45 PM EDT Follow-[place] [address] Kandy Espana, RN [facility] [place] [address] Rheumatoid arthritis; High risk medication use; Encounter for long-term (current) use of other medications; Sicca Discharge Disposition: Home Social History Tobacco Use [...] Sign Reading Time Taken Comments Blood Pressure 130/91 01/13/2015 2:50 PM EDT Pulse 60 01/13/2015 2:50 PM EDT Temperature 36.7 ??C (98 ??F) 01/13/2015 2:50 PM EDT Respiratory Rate - - Oxygen Saturation 96% 01/13/2015 2:50 PM EDT Inhaled Oxygen Concentration - - Weight 99.6 kg (219 lb 9.6 oz) 01/13/2015 2:50 P M EDT Height 182.9 cm (6') 01/13/2015 2:50 PM EDT Body Mass Index 29.78 01/13/2015 2:50 PM EDT documented in this encounter Progress Notes * Kandy Espana, ENVIRONMENTAL MANAGER - 01/13/2015 7:43 AM EDT Established Patient Follow Up - [...] HISTORY: Ongoing methotrexate 2.5 mg po weekly, folic acid daily and medrol 4 mg po daily.No joint swelling, sustained AM joint stiffness or pain. Continues acetaminophen 1000 mg po QAM. 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 Enjoying the social contacts. Seen by Cardiology and recommendation for remaining active, to consider stationary bike for home use fn winter. Was referredto Health Promotion Manager at local site. Using inhler twice daily (thinks Symbicort) and nasal spray). Not coughing, less congestion. Reports CXR and chest CT completed with results pending. Follow up appointment scheduled at end of the month. Sleep study summer 2013 - no PINEDA, no central sleep apnea. 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 Continues to live with brother, has own room and TV. Looking forward to spending time at cabin. Hasbeen out using tractor. Most happy when at cabin in [place]. Most of life, active physically, feels best when doing something. Reports no limitations in self-care activities. No [...] route 2 times daily. 16g 12 ??? methotrexate 2.5 mg tablet Take 6 [...] Reactions ??? Calcium kidney stones PHYSICAL EXAMINATION: Filed Vitals: 01/13/15 1450 BP: 130/91 Pulse: 60 Temp: 36.7 ??C (98 ??F) TempSrc: Oral Height: 182.9 cm (6') Weight: 99.61 kg (219 lb 9.6 oz) SpO2: 96% Constitutional: Pleasant adult male, in no acute [...] knees - no effusion, erythema, or warmthl; (-)tender. Bilateral ankle ROM functional, decreased in inversion/eversion (-) tender; no swelling. MTPs tender to compression. Skin: Intact; (-) rash, telangiectasias, + nail dystrophy. ASSESSMENT: Rheumatoid arthritis; high risk medication; medication safety monitoring; depression and anxiety; impaired sleep; sicca symptoms. PLAN: ?? Stop methotrexate and folic acid. ?? Continue medrol 4 mg po daily. ?? Calcium and vitamin D dietary intake and supplementation. ?? Follow up planned PULM on 01/28/2015. ?? Records requested from PULM. ?? Ongoing PT/HEP. ?? Requests future Rituxan infusions at [facility] - will assure acceptance and covering staff. ?? Acknowledged pt commitment to improved well-being [...] 12:00 PM EDT Appointment [place] [id number] documented as of this encounter Procedures Procedure Name Priority Date/Time Associated Diagnosis Comments ORDS - PROVIDER CARE SCAN 06/27/2015 12:00 AM EDT documented in this encounter Results * SCAN DOC: ORDS - PROVIDER CARE (06/27/2015 12:00 AM EDT) Scanning Provider MEDIA MGR SCAN EXT O RDR/RSLT documented in this encounter Visit Diagnoses Diagnosis Rheumatoid arthritis High risk medication use Encounter for long-term (current) use of other medications Encounter for long-term (current) use of other medications Sicca Sicca syndrome documented in this encounter Care Teams Watch Repair Person Relationship Specialty Start Date End Date Arelis Michele MD [address] [place] [address] PCP - General 11/16/13 06/10/18 documented as of this encounter
--- OUTSIDE RECORDS SUMMARY | 2024-04-06 02:31 | XMS_ITS | Encounter Summary ---
[place] [address] Care Team Providers Care Trauma Nurse Name Role Phone Arelis Michele MD Primary Care Provider [phone] Reason for Visit * Reason Onset Date Comments Other 09/26/2015 flare Encounter Details Date Type Department Care Team (Late st Contact Info) Description 09/26/2015 Telephone [place] [id number] Emily England RN Other (flare) Social History Tobacco Use Types Packs/Day Years [...] Telephone Encounter - Emily England RN - 09/26/2015 1:37 PM EST Wesly calls today to say all of his joints are very painful. He says they are not swollen, red or warm to the touch. He is wondering if this is because he has not had his Rituxan infusion since December. Asked why he has not had it. He says initially he had an infection. He used to get his infusions down here, but then he started getting them at [facility]. Told him it is probably likely his RA is flaring because of lack of treatment. Asked if he is on Medrol. He says he is currently on 4 mg Medrol daily. documented in this encounter Plan of Treatment Upcoming Encounters Date Type Department Care Team (Late st Contact Info) Description 04/28/2024 12:00 PM EDT Appointment [place] [address] documented as of this encounter Visit Diagnoses Not on filedocumented in this encounter Care Teams Trauma Nurse Relationship Specialty Start Date End Date Arelis Michele MD [address] [place] [address] PCP - General 11/16/13 06/10/18 documented as of this encounter
--- OUTSIDE RECORDS SUMMARY | 2024-04-06 02:31 | XMS_ITS | Encounter Summary ---
Author Organization [facility] [place] [address] Care Team Providers Care Social Service Liaison Name Role Phone Arelis Michele MD Primary Care Provider [phone] Reason for Referral * Consultation (Routine) - Closed Specialty Diagnoses / Procedures Referred By Azam corbett Referred To Contact Radiology Diagnoses Cough Procedures XR Chest Routine PA & Lateral Kandy Espana, RN [facility] [place] [address] [place] [address] Referral ID Status Reason Start Date Expiration Date V isits Requested Visits Authorized [id number] Closed Specialty Service Requested 06/08/2015 06/07/2016 1 1 Reason for Visit * Reason Comments Follow-up Encounter Details Date Type Department Care Team (Late st Contact Info) Description 06/08/2015 11:00 AM EDT Office [place] [address] Kandy Espana, RN [facility] [place] [address] Rheumatoid arthritis; High risk medication use; Medication monitoring encounter; Cough Social History Tobacco Use Types Packs/Day Years [...] Sign Reading Time Taken Comments Blood Pressure 139/70 06/08/2015 11:09 AM EDT Pulse 87 06/08/2015 11:09 AM EDT Temperature 36.4 ??C (97.6 ??F) 06/08/2015 11:09 AM E DT Respiratory Rate 18 06/08/2015 11:09 AM EDT Oxygen Saturation 97% 06/08/2015 11:09 AM EDT Inhaled Oxygen Concentration - - Weight 94.3 kg (208 lb) 06/08/2015 11:09 AM EDT Height - - Body Mass Index 28.21 03/15/2015 11:16 AM EDT documented in this encounter Patient Instructions * Patient Instructions* Kandy Espana APRN - 06/08/2015 12:48 PM EDT 1. Take prednisone (5 mg tablets) in AM with food: 20 mg (4 tabs) for 3 days, 15 mg (3 tans) for three days, then 10 mg for three days and then stay at 5 mg. 2. Monitor for fever, chills, daily in morning with food (1 tablet). 3. Call the office next TUE with update. Guillermina Espana Nurse Practitioner [facility] [address] [address] documented in this encounter Progress Notes * Kandy Espana APRN - 06/07/2015 7:32 PM EDT Established Patient Follow Up - [...] drip R09.82 ??? Cardiomyopathy I42.9 INTERVAL HISTORY: Contacted PCP about a week ago, puffy all over and itchy. No rash, fever, chills,systemic symptoms. (-) diarrhea, nausea or vomiting. Over the phone prescribed an allergy med (thinks benadryl q6h x 7 days). No improvement. Follow up appointment set up 06/23/2015. Treated for pneumonia in April. Seen in PCP office, CXR and treated with prednisone and unspecified ABX (? levaquin x 7 days). Seen in follow up, cough, persistent, with achy ribs. Cough persists. No fever, some chills, no diaphoresis. Appetite good and weight stable. 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 Last Rituxan infusion in 01/13/2015 at . Next infusion planned at [facility]. (4 month interval/single infusion). Reports hand stiffness, (+) fatigue. States abruptly stopped medrol 4 mg po daily about 5weeks ago, when he could not afford meds. Continues treatment for dry mouth and dry eyes. Annual influenza vaccine received this fall at PCP office. Continues to HOLD methotrexate and folic acid. Reports no limitations in self-care activities. No [...] the lungs daily. 1 Inhaler 0 ??? methylPREDNISolone (MEDROL) 4 mg Tablet Take [...] Lisinopril Dry cough PHYSICAL EXAMINATION: Filed Vitals: 06/08/15 1109 BP: 139/70 Pulse: 87 Temp: 36.4 ??C (97.6 ??F) TempSrc: Oral Resp: 18 Weight: 94.348 kg (208 lb) SpO2: 97% Constitutional: Pleasant adult male, in no acute distress. HEENT: Normocephalic, atraumatic. Eyes -sclera clear. Oral mucous membranes moist and intact. (-) thyromegaly, anterior cervical lymphadenopathy, parotid or submandibular gland enlargement. Chest: Heart RRR, (-) murmur or extra sounds. Lungs: (+) expiratory wheezing bilateral lower lobes, (+) crackles at LLL; (-) rales or rhonchi. Neurological: Oriented x 3. Speech clearly articulated. Gait even and co- ordinated. Musculoskeletal: Muscle mass bilaterally symmetric. Joint Exam: Neck ROM functional, (-) tender. Bilateral shoulder AROM functional, (-) tender. Elbow ROM full, (-) tender;(-) synovitis, extensor surface nodules, or effusion. Wrist ROM functional; (+) tender; (+) swelling; (-) erythema or warmth. MCPs/PIPs/DIPs: (+) tender at MCPs, (+) trace swelling scattered MCPs and PIPs; (+) CMC thickening. Makes a complete fist and near complete claw. Bilateral knees; (+) small effusions, (-) erythema, or warmthl. Bilateral ankle ROM functional, decreased in inversion/eversion (-) tender; (-) swelling. MTPs tender to compression. Skin: Intact; (+) diffuse sandpapery macular rash cheeks; no pustles or papules. Superficial bruising on arms; + nail dystrophy. ASSESSMENT: Rheumatoid arthritis; cough, wheezing; high risk medication; medication safety monitoring; sicca symptoms. PLAN: Case review and available assessment findings & CXR imaging reviewed with staff (MARIELOS). ?? CXR, labs pending -> further planning pending review. ?? PFS/MAP contact. ?? Prednisone 20 mg po QAM x 3 days; taper by 5 mg every three day, to 5 mg dose. ?? Office contact next week. ?? Urgent evaluation for increased dyspnea, fever, productive cough. ?? Consider PULM follow up - PFTs. ?? Continue to HOLD methotrexate and folic acid. ?? HOLD Rituxan for now. ?? Calcium and vitamin D dietary intake and supplementation. ?? Consider follow up planned PULM/CARDIOLOGY. ?? Rituxan at 4 month interval, single infusion protocol -> to be scheduled after diagnostics reviewed ?? Continue treatments for dry mouth and blepharitis. ?? Continue acetaminophen 1000 mg po QAM, prn. ?? Ongoing osteoporosis prevention strategies, dietary intake, supplementation with vitamin D (no calcium due to kidney stones), ongoing weightbearing activity and exercise. ?? Annual influenza vaccine recommended. ?? Ongoing contact/follow up ARELIS MICHELE MD (General) and Cardiology. Addendum: Recent Results (from the past 24 hour(s)) High Sensitivity CRP Result Value Ref Range CRP High Sens 5.0 mg/L Sedimentation rate Result Value Ref Range Sed Rate 9 0 - 15 mm/hr Comprehensive metabolic panel (non-fasting) Result Value Ref Range Glucose Lvl 94 65 - 199 mg/dL BUN 7 (L) 10 - 20 mg/dL Creatinine 0.85 0.80 - 1.50 mg/dL Sodium 143 135 - 145 mmol/L Potassium 3.6 3.5 - 5.0 mmol/L Chloride 104 98 - 107 mmol/L CO2 27 22 - 31 mmol/L Anion Gap 12 5 - 15 mmol/L Calcium 9.0 8.5 - 10.5 mg/dL Total Protein 5.7 (L) 6.1 - 8.0 gm/dL Albumin 3.5 3.2 - 5.2 gm/dL AST 21 0 - 39 unit/L ALT 16 0 - 55 unit/L Alk Phos 82 40 - 120 unit/L Total Bilirubin 0.3 0.2 - 1.3 mg/dL Bili, Direct 0.1 0.0 - 0.3 mg/dL Estimated GFR >60 >=60 Hemogram Result Value Ref Range WBC 7.2 4.0 - 10.0 x10(3)/mcL RBC 4.53 (L) 4.63 - 6.08 x10(6)/mcL Hemoglobin 13.9 13.7 - 17.5 gm/dL Hematocrit 42.5 40.0 - 51.0 % MCV 93.8 (H) 79.0 - 92.0 fL MCH 30.7 25.6 - 32.2 pg MCHC 32.7 32.0 - 36.5 gm/dL Platelets 283 145 - 370 x10(3)/mcL RDWSD 50.0 (H) 35.0 - 46.0 fL RDWCV 14.7 (H) 10.9 - 14.4 % MPV 9.9 9.0 - 12.0 fL Differential, Automated Result Value Ref Range Neutrophils % 45.8 % Neutr Abs (ANC) 3.28 1.50 - 6.30 x10(3)/mcL Lymphocytes % 36.8 % Lymphocytes Abs 2.6 1.0 - 3.6 x10(3)/mcL Monocytes % 9.9 % Monocyte Abs 0.7 0.2 - 1.0 x10(3)/mcL Eosinophils % 6.7 % Eosinophils Abs 0.5 0.0 - 0.5 x10(3)/mcL Basophils % 0.7 % Basophils Abs 0.0 0.0 - 0.2 x10(3)/mcL Immature Gran % 0.10 % Brianna Gran Abs 0.01 0.00 - 0.05 x10(3)/mcL documented in this encounter Plan of Treatment Upcoming Encounters Date Type Department Care Team (Late st Contact Info) Description 04/28/2024 12:00 PM EDT Appointment [place] [address] documented as of this encounter Results * XR Chest Routine [...] study. Doe Obrien MD IMG DX ORDERABLES * (ABNORMAL) Comprehensive metabolic panel (non-fasting) (06/08/2015 11:45 AM EDT) Glucose 94 65 - 199 mg/dL CERNER MILLENNIUM Comment:Diabetes: >=200 mg/d L plus symptoms Blood Urea Nitrogen 7(L) 10 - 20 mg/dL CERNER MILLENNIUM Creatinine 0.85 0.80 - 1.50 mg/dL CERNER MILLENNIUM Comment: Please note that the pediatric reference intervals supplied above were not validated at [facility]. Results from pediatric patients should be interpreted in conjunction to the patient's age, height and muscle mass. Sodium 143 135 - 145 mmol/L CERNER MILLENNIUM Potassium 3.6 3.5 - 5.0 mmol/L CERNER MILLENNIUM Comment: Please note: ??Patients with WBC >100,000 may have falsely elevated Potassium levels. ??For accurate Potassium quantification in these patients send serum separator tube (gold top) for subsequent determinations. ??Contact the Clinical Chemistry Laboratory if there are any questions. Chloride 104 98 - 107 mmol/L CERNER MILLENNIUM Carbon Dioxide 27 22 - 31 mmol/L CERNER MILLENNIUM Anion Gap 12 5 - 15 mmol/L CERNER MILLENNIUM Calcium 9.0 8.5 - 10.5 mg/dL CERNER MILLENNIUM Protein, Total 5.7(L) 6.1 - 8.0 gm/dL CERNER MILLENNIUM Albumin 3.5 3.2 - 5.2 gm/dL CERNER MILLENNIUM Aspartate Aminotransferase 21 0 - 39 unit/L CERNER MILLENNIUM Alanine Aminotransferase 16 0 - 55 unit/L CERNER MILLENNIUM Alkaline Phosphatase 82 40 - 120 unit/L CERNER MILLENNIUM Bilirubin, Total 0.3 0.2 - 1.3 mg/dL CERNER MILLENNIUM Bilirubin, [...] the following links into your internet browser. [email or web address] Blood specimen (specimen) 06/08/2015 11:45 AM EDT 06/08/2015 11:56 AM EDT Narrative Resulting Agency Comment Spec In Lab Doe Obrien MD CHEMISTRY ORDERAB LES Performing Organization Address [facility] Phone Number [facility] * Sedimentation rate (06/08/2015 11:45 AM EDT) Sedimentation Rate Automated 9 0 - 15 mm/hr [facility] Blood specimen (specimen) 06/08/2015 11:45 AM EDT 06/08/2015 11:56 AM EDT Narrative Resulting Agency Comment Spec In Lab Doe Obrien MD HEMATOLOGY ORDERA BLES Performing Organization Address [facility] de Phone Number [facility] [email or web address] * High Sensitivity CRP (06/08/2015 11:45 AM EDT) C-Reactive Protein High Sensitivity 5.0 mg/L [facility] Comment: Interpretations: 1) For accurate cardiac risk [...] prevention. ??Circulation 2003; [phone]:[id number] Blood specimen (specimen) 06/08/2015 11:45 AM EDT 06/08/2015 11:56 AM EDT Narrative Resulting Agency Comment Spec In Lab Doe Obrien MD CHEMISTRY ORDERAB LES Performing Organization Address City/State/[facility] Co de Phone Number [facility] documented in this encounter Visit Diagnoses Diagnosis Rheumatoid arthritis High risk medication use Encounter for long-term (current) use of other medications Medication monitoring encounter Encounter for therapeutic drug monitoring Cough Cough documented in this encounter Care Teams Social Service Liaison Relationship Specialty Start Date End Date Arelis Michele MD [address] [place] [address] PCP - General 11/16/13 06/10/18 documented as of this encounter
--- OUTSIDE RECORDS SUMMARY | 2024-04-06 02:31 | XMS_ITS | Encounter Summary ---
Author Organization [facility] [place] [address] Care Team Providers Care Ticker Installer Name Role Phone Arelis Michele MD Primary Care Provider [phone] Encounter Details Date Type Department Care Team (Late Contact Info) Description 12/16/2013 Telephone [place] [address] Arcenio Melendrez, RN Social History Tobacco Use Types Packs/Day [...] encounter Miscellaneous Notes * Telephone Encounter - Arcenio Melendrez, RN - 12/16/2013 3:15 PM EDT Patient calling stating that he saw Pulmonary provider for chronic cough and he was prescribed medication(s) that haven't helped him much. Wants to know if Pulmonary provider has any other alternatives. Will forward. documented in this encounter Plan of Treatment Upcoming Encounters Date Type Department Care Team (Late st Contact Info) Description 04/28/2024 12:00 PM EDT Appointment [place] [address] documented as of this encounter Visit Diagnoses Not on filedocumented in this encounter Care Teams Ticker Installer Relationship Specialty Start Date End Date Arelis Michele MD [address] [place] [address] PCP - General 11/16/13 06/10/18 documented as of this encounter
--- OUTSIDE RECORDS SUMMARY | 2024-04-06 02:31 | XMS_ITS | Encounter Summary ---
[place] [address] Care Team Providers Care Strip Machine Operator Name Role Phone Arelis Michele MD Primary Care Provider [phone] Reason for Visit * Reason Comments IV Medication Encounter Details Date Type Department Care Team (Latest Contact Info) Description 01/13/2015 10:30 AM EDT - 01/13/2015 11:59 PM EDT Hospital En[place] [address] CL[facility], DR [facility] Rheumatoid arthritis Social History Tobacco Use Types Packs/Day Years [...] Sign Reading Time Taken Comments Blood Pressure 150/75 01/13/2015 10:40 AM EDT Pulse 72 01/13/2015 10:40 AM EDT Temperature 36.3 ??C (97.3 ??F) 01/13/2015 10:40 AM E DT Respiratory Rate 16 01/13/2015 10:40 AM EDT Oxygen Saturation 98% 01/13/2015 10:40 AM EDT Inhaled Oxygen Concentration - - [...] 11/02/2010 methylPREDNISolone (MEDROL) 4 mg Tablet Take 1 tablet by mouth daily. 90 tablet 3 12/15/2014 06/08/2015 clopidogrel (PLAVIX) 75 mg tablet Take 75 mg by mouth daily. 01/08/2019 metoprolol succinate (TOPROL-XL) 25 mg 24 hr tablet Take 25 mg by mouth daily. 08/01/2018 terazosin (HYTRIN) 1 mg capsule Take 1 mg by mouth nightly. 06/05/2022 fluticasone (FLOVENT) 110 mcg/actuation inhaler Inhale 1 puff into the lungs 2 times daily. 03/15/2015 albuterol (PROVENTIL HFA;VENTOLIN HFA) 90 mcg/actuation inhaler [...] 12:00 PM EDT [place] [address] documented as of this encounter Visit Diagnoses Diagnosis Rheumatoid arthritis documented in this encounter Administered Medications Inactive Administered Medications - up to 3 most recent administrations Medication Order MAR Action Action Date Dose Rate Site diphenhydrAMINE (BENADRYL) injection 25 mg 25 mg, Intravenous, ONCE, 1 dose, On Kanwal 01/13/15 at 1100, FIRST INFUSION Upon arrival prior to rituximab., Outpatient Transfusion, Routine Given 01/13/2015 11:15 AM EDT 25 mg methylPREDNISolone sodium succinate (PF) (solu-MEDROL) injection 100 mg 100 mg, Intravenous, ONCE, 1 dose, On Kanwal 01/13/15 at 1100, FIRST INFUSION Upon arrival prior to rituximab., Outpatient Transfusion Given 01/13/2015 10:55 AM EDT 100 mg riTUXimab (RITUXAN) 1,000 mg in sodium chloride 0.9% 500 mL infusion 1,000 mg, Intravenous, ONCE, 1 dose, On Kanwal 01/13/15 at 1130, FIRST INFUSION Administer intravenously at an initial [...] Transfusion, Indication: see associated diagnosis New Bag 01/13/2015 11:20 AM EDT 1,000 mg documented in this encounter Care Teams Strip Machine Operator Relationship Specialty Start Date End Date Arelis Michele MD [address] [place] [address] PCP - General 11/16/13 06/10/18 documented as of this encounter
--- OUTSIDE RECORDS SUMMARY | 2024-04-06 02:31 | XMS_ITS | Encounter Summary ---
Author Organization [facility] [place] [address] Care Team Providers Care Trackwalker Name Role Phone Arelis Michele MD Primary Care Provider [phone] Reason for Visit * Reason Comments Follow-up Encounter Details Date Type Department Care Team (Late st Contact Info) Description 11/16/2013 11:45 AM EDT Follow-[place] [address] Robin Dodge MD [facility] [place] [address] Chronic cough (Primary Dx); SOB (shortness of breath); RA (rheumatoid arthritis); Post-nasal drip Discharge Disposition: Home Social History Tobacco Use [...] Sign Reading Time Taken Comments Blood Pressure 145/96 11/16/2013 11:57 AM EDT Pulse 103 11/16/2013 11:57 AM EDT Temperature - - Respiratory Rate 18 11/16/2013 11:57 AM EDT Oxygen Saturation 95% 11/16/2013 11:57 AM EDT Inhaled Oxygen Concentration - - Weight 99.8 kg (220 lb) 11/16/2013 11:57 AM EDT Height 180.6 cm (5' 11.1) 11/16/2013 11:57 AM E DT Body Mass Index 30.6 11/16/2013 11:57 AM EDT documented in this encounter Progress Notes * Robin Dodge MD - 11/16/2013 12:11 PM EDT PROBLEMS: Chronic cough; breathlessness. S: Mr. Ybarra returns for followup evaluation having previously been seen on November 09, 2013. He is again accompanied by his sister. The patient reports no change in overall cough frequency or intensity. PHYSICAL EXAMINATION: None performed. I personally viewed the methacholine challenge test results and reviewed these with Mr. Ybarra and his sister. I informed Mr. Ybarra that the test is negative for reactive airway disease/asthma, as there is only a 14% decline in FEV1 after cumulative inhalation of methacholine. A: 1. 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 2. Allergic rhinitis with clinical improvement using Flonase one squirt each nostril b.i.d. 3. History of rheumatoid arthritis with no evidence of interstitial lung disease, and multiple other medical problems including gastroesophageal reflux disease, hyperlipidemia, hypertension, and depression. P: 1. As noted, I have reviewed this information in detail with Mr. Ybarra. 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 2. Trial of Medrol 16 mg one tablet in the morning for seven days. 3. Continue Flonase one squirt each nostril b.i.d. May taper dose based on clinical response. 4. No return appointment is scheduled. The patient will see Dr. Arelis Michele for routine medical care. documented in this encounter Plan of Treatment Upcoming Encounters Date Type Department Care Team (Late st Contact Info) Description 04/28/2024 12:00 PM EDT Appointment [place] [address] documented as of this encounter Visit Diagnoses Diagnosis Chronic cough- Primary Cough SOB (shortness of breath) Shortness of breath RA (rheumatoid arthritis) Rheumatoid arthritis Post-nasal drip Postnasal drip documented in this encounter Care Teams Trackwalker Relationship Specialty Start Date End Date Arelis Michele MD [address] [place] [address] PCP - General 11/16/13 06/10/18 documented as of this encounter
--- OUTSIDE RECORDS SUMMARY | 2024-04-06 02:31 | XMS_ITS | Encounter Summary ---
Author Organization [facility] [place] [address] Care Team Providers Care Electrical Logger Name Role Phone Arelis Michele MD Primary Care Provider [phone] Encounter Details Date Type Department Care Team (Late st Contact Info) Description 08/17/2014 Orders [place] [address] Kandy Espana, RN [facility] [place] [address] Encounter for long-term (current) use of other medications Social History Tobacco Use Types Packs/Day Years [...] 12:00 PM EDT Appointment [place] [phone] documented as of this encounter Visit Diagnoses Diagnosis Encounter for long-term (current) use of other medications documented in this encounter Care Teams Electrical Logger Relationship Specialty Start Date End Date Arelis Michele MD [address] [place] [address] PCP - General 11/16/13 06/10/18 documented as of this encounter
--- OUTSIDE RECORDS SUMMARY | 2024-04-06 02:31 | XMS_ITS | Encounter Summary ---
Author Organization [facility] [place] [address] Care Team Providers Care Drying Machine Operator Name Role Phone Arelis Michele MD Primary Care Provider [phone] Encounter Details Date Type Department Care Team (Late st Contact Info) Description 03/02/2014 12:00 PM EDT Follow-[place] [address] Kandy Espana, RN [facility] [place] [address] Cardiomyopathy; Rheumatoid arthritis(964.0); High risk medication use; Encounter for long-term (current) use of other medications; History of steroid therapy Discharge Disposition: Home Social History Tobacco Use [...] Sign Reading Time Taken Comments Blood Pressure 117/71 03/02/2014 12:01 PM EDT Pulse 103 03/02/2014 12:01 PM EDT Temperature 36.4 ??C (97.5 ??F) 03/02/2014 12:01 PM E DT Respiratory Rate - - Oxygen Saturation 96% 03/02/2014 12:01 PM EDT Inhaled Oxygen Concentration - - Weight 100.7 kg (222 lb) 03/02/2014 12:01 PM EDT Height 182.9 cm (6') 03/02/2014 12:01 PM EDT Body Mass Index 30.11 03/02/2014 12:01 PM EDT documented in this encounter Patient Instructions * Patient Instructions* Kandy Espana APRN - 03/04/2014 9:40 AM EDT ?? Resume MTX 7.5 mg po weekly and folic acid 2 mg po daily x 2-3 weeks, if no improvement in jointswelling, contact office -> written instructions provided ?? Do not resume steroid. ?? Continue Rituxan therapy -> Course #1/infusion # 2 today. ?? Reviewed scanned Documents - cardiology and cardiac catheterization report. ?? Periodic medication safety monitoring. ?? Indications for holding methotrexate reviewed. ?? Continue treatments for dry mouth and blepharitis. ?? Continue acetaminophen 1000 mg po QAM, prn. ?? Ongoing osteoporosis prevention strategies, dietary intake, supplementation with vitamin D (no calcium due to kidney stones), ongoing weightbearing activity and exercise. ?? Annual influenza vaccine recommended. ?? UTD with immunizations ?? Ongoing contact/follow up ARELIS MICHELE MD and Cardiology. ?? Follow up 03/30/2014, sooner for concerns, questions or increased signs/symptoms. documented in this encounter Progress Notes * Kandy Espana APRN - 03/02/2014 12:02 PM EDT Established Patient Follow Up - Rheumatology Clinic Wesly Ybarra is a 63 y.o.male seen for ongoing evaluation and management of rheumatoid arthritis. He is unaccompanied. Patient Active Problem List Diagnosis Code ??? RA (rheumatoid arthritis) 714.0 ??? Osteopenia 733.90 ??? GERD (gastroesophageal reflux disease) 530.81 ??? Hyperlipidemia 272.4 ??? Depression 311 ??? HTN (hypertension) 401.9 ??? Burning sensation in eye 379.99 ??? Chronic cough 786.2 ??? SOB (shortness of breath) 786.05 ??? Post-nasal drip 784.91 INTERVAL HISTORY: Plan at time of last office visit: Updates in BOLD italics. Decrease medrol to 4 mg po QAM, planned taper at follow up Stopped medrol and methotrexate after developing dyspnea. Was seen at [facility] ED 02/20/2014 for coughing spell and shortness of breath. Treated with nebulizer and inhalers with modest benefit. CXR completed and reported by pt as clear for pneumonia. No signs of infection, no fever. Rituxan therapy -> Course #1/infusion # 2 today. No AE. Labs from October 2013 reviewed. No action; no change. Encouraged ongoing support strategies for situational stress (family/community). Reports currently staying with brother and his family after ED episode. be able to be at camp. HOLD enbrel. 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 Continue MTX 15 mg po weekly, if no nausea or GI upset. See above. Periodic medication safety monitoring. Noted most recent labs. Indications for holding methotrexate reviewed. Noted. Continue treatments for dry mouth and blepharitis. Ongoing. Continue acetaminophen 1000 mg po QAM, prn. Ongoing. Ongoing osteoporosis prevention strategies, dietary intake, supplementation with vitamin D (no calcium due to kidney stones), ongoing weightbearing activity and exercise. Ongoing recommendation. Annual influenza vaccine recommended. Ongoing recommendation. Ongoing HTN management -> PCP office. Seen in last couple weeks; Cardiology consult with ECHO and catheterization completed. Notes in eDH. Was treated for URI with levaquin x 7 days, completed prior to today's office visit. SUMMARY: ?? ECHO -> LEFT VH -> cardiomyopathy. RV hypokinetic. Aortic sclerosis without stenosis. Abnormal diastolic indices. Normal pulmonary artery pressure. Normal atria. LVEF 40%. ?? CATH -> Mild irregularities LAD, L circumflex, RCA and NORMAL Left main -> Medical therapyindicated . Multiple new meds added. (Clopidogrel, metoprolol, ASA 81 mg, terazosin, flovent, albuterol). Repeat PFTs scheduled 03/15/2014. At last office visit, reported had been referred to cardiology for evaluation of dyspnea. ECHO completed earlier this week. When last seen, noted the following: PULM plan -> No response to medrol x 7 days - plan is to follow up with PCP. Reports no limitations in self-care or diversional activities. Reports no fever, chills, visual changes, oral ulcers, + dry mouth, painful or difficult swallowing, diarrhea or skin rash. Appetite good and weight stable. No recurrent illness or infection. Ongoing issues around house sharing with niece and boyfriend who has been diagnosed with bi-polar disorder. Denies other changes in medical, surgical or social history. Current Outpatient Prescriptions on File Prior to Visit Medication Sig Dispense Refill ??? fluticasone (FLONASE) 50 mcg/actuation nasal spray [...] 30 mg capsule 30 mg, PO, QHS Allergies Allergen Reactions ??? Calcium kidney stones PHYSICAL EXAMINATION: Filed Vitals: 03/02/14 1201 BP: 117/71 Pulse: 103 Temp: 36.4 ??C (97.5 ??F) TempSrc: Oral Height: 182.9 cm (6') Weight: 100.699 kg (222 lb) SpO2: 96% Constitutional: Pleasant adult male, in no acute distress. HEENT: Normocephalic, atraumatic. Eyes -sclera clear. Oral mucous membranes moist and intact. No thyromegaly, anterior or cervical lymphadenopathy, submandibular or parotid gland enlargement. Chest: Heart rate and rhythm regular; (-) murmur or extra sounds. Lungs - clear to auscultation; (-) wheezing; (-) rales, or rhonchi. Musculoskeletal: Muscle mass bilaterally symmetric. Joint Exam: Neck ROM functional and nontender. Nontender to palpation at cervical, thoracic and lumbar spine. Bilateral shoulder ROM functional, nontender. ElbowROM full, (-) tender; no synovitis, extensor surface nodules, or effusion. Wrist ROM functional and(+) tender; no erythema or warmth. MCPs - (+) swelling D 2/3/4 (INGRID); PIPs - no swelling; CMC thickening; no swelling. Makes a near complete fist and claw. Hip ROM functional; arises seated to standing independently. Bilateral knees - no effusion, erythema, or warmth. ROM functional; (-) tender. Bilateral ankle ROM functional, decreased in inversion/eversion (-) tender; no swelling. MTPs tender to compression. Skin: Intact without rash, telangiectasias, + nail dystrophy. ASSESSMENT: Rheumatoid arthritis;joint swelling; medication interruption; sicca symptoms; drug safety monitoring. PLAN: ?? Case review and assessment findings reviewed with attending who is in agreement with the plan. Resume MTX 7.5 mg po weekly and folic acid 2 mg po daily x 2-3 weeks, if no improvement in joint swelling, contact office -> written instructions provided Do not resume steroid. Continue Rituxan therapy -> Course #1/infusion # 2 today. Reviewed scanned Documents - cardiology and cardiac catheterization report. ?? Periodic medication safety monitoring. ?? Indications for holding methotrexate reviewed. ?? Continue treatments for dry mouth and blepharitis. ?? Continue acetaminophen 1000 mg po QAM, prn. ?? Ongoing osteoporosis prevention strategies, dietary intake, supplementation with vitamin D (no calcium due to kidney stones), ongoing weightbearing activity and exercise. ?? Annual influenza vaccine recommended. ?? UTD with immunizations ?? Ongoing contact/follow up ARELIS MICHELE MD and Cardiology. ?? Follow up 03/30/2014, sooner for concerns, questions or increased signs/symptoms. documented in this encounter Plan of Treatment Upcoming Encounters Date Type Department Care Team (Late st Contact Info) Description 04/28/2024 12:00 PM EDT Appointment [place] [address] documented as of this encounter Visit Diagnoses Diagnosis Cardiomyopathy Other primary cardiomyopathies Rheumatoid arthritis(714.0) Rheumatoid arthritis High risk medication use Encounter for long-term (current) use of other medications Encounter for long-term (current) use of other medications History of steroid therapy Personal history of systemic steroid therapy documented in this encounter Care Teams Drying Machine Operator Relationship Specialty Start Date End Date Arelis Michele MD [address] [place] [address] PCP - General 11/16/13 06/10/18 documented as of this encounter
--- OUTSIDE RECORDS SUMMARY | 2024-04-06 02:31 | XMS_ITS | Encounter Summary ---
[place] [address] Care Team Providers Care Caramel Maker Name Role Phone Arelis Michele MD Primary Care Provider [phone] Encounter Details Date Type Department Care Team (Late st Contact Info) Description 03/04/2014 Orders [place] [id number] Emily England, RN Post-nasal drip (Primary Dx) Social History Tobacco Use Types Packs/Day Years Used Date Smoking Tobacco: Never Smokeless Tobacco: Never Alcohol Use Standard Drinks/Week Comments No 0 (1 standard drink = 0.6 oz pur e alcohol) Sex and Gender Information Value Date Recorded Sex Assigned at Not on file Gender Identity Not on file Sexual Orientation Not on file documented as of this encounter Progress Notes * Emily England RN - 03/04/2014 10:55 AM EDT error documented in this encounter Plan of Treatment Upcoming Encounters Date Type Department Care Team (Late st Contact Info) Description 04/28/2024 12:00 PM EDT Appointment [place] [address] documented as of this encounter Visit Diagnoses Diagnosis Post-nasal drip- Primary Postnasal drip documented in this encounter Care Teams Caramel Maker Relationship Specialty Start Date End Date Arelis Michele MD [address] [place] [address] PCP - General 11/16/13 06/10/18 documented as of this encounter
--- OUTSIDE RECORDS SUMMARY | 2024-04-06 02:31 | XMS_ITS | Encounter Summary ---
[place] [address] Care Team Providers Care Slot Editor Name Role Phone Arelis Michele MD Primary Care Provider [phone] Reason for Visit * Reason Onset Date Comments Other 12/21/2013 increased pain Encounter Details Date Type Department Care Team (Late st Contact Info) Description 12/21/2013 Telephone [place] [address] Emily England RN Other (increased pain) Social History Tobacco Use Types Packs/Day Years [...] Telephone Encounter - Emily England RN - 12/21/2013 4:33 PM EDT Wesly is calling because he is having increased pain in his hands and shoulders, which began last . He says his hands are stiff and swollen, he can't make a fist. He says they are not red or warm to the touch. He says he has not had Enbrel since early June because they were trying to clear up an infection he had. He has continued to take methotrexate and 4 mg Medrol daily. He would like to know what Guillermina recommends. documented in this encounter Plan of Treatment Upcoming Encounters Date Type Department Care Team (Late st Contact Info) Description 04/28/2024 12:00 PM EDT Appointment [place] [address] documented as of this encounter Visit Diagnoses Not on filedocumented in this encounter Care Teams Slot Editor Relationship Specialty Start Date End Date Arelis Michele MD [address] [place] [address] PCP - General 11/16/13 06/10/18 documented as of this encounter
--- OUTSIDE RECORDS SUMMARY | 2024-04-06 02:31 | XMS_ITS | Encounter Summary ---
[place] [address] Care Team Providers Care Adjunct Instructor Name Role Phone Kamila Rodney MD Primary Care Provider [phone] Reason for Referral * Consultation (Routine) - Closed Specialty Diagnoses / Procedures Referred By Azam corbett Referred To Contact Pulmonology Diagnoses Dry cough Kandy Espana, RN [facility] [place] [address] [facility] Pulmonology [address] [place] [phone] Referral ID Status Reason Start Date Expiration Date V isits Requested Visits Authorized [id number] Closed Consult, Test & Treat 08/11/2013 02/07/2014 1 1 Reason for Visit * Reason Comments Follow-up Encounter Details Date Type Department Care Team (Late st Contact Info) Description 08/11/2013 1:45 PM EST [place] [id number] Kandy Espana, RN [facility] [place] [address] Rheumatoid arthritis; High risk medication use; Need for prophylactic vaccination with Streptococcus pneumoniae (Pneumococcus) and Influenza vaccines; Dry cough; Hypertension; ZEPEDA (dyspnea on exertion) Discharge Disposition: Home [...] Sign Reading Time Taken Comments Blood Pressure 156/101 08/11/2013 1:41 PM EST Pulse 85 08/11/2013 1:41 PM EST Temperature 36.7 ??C (98 ??F) 08/11/2013 1:41 PM EST Respiratory Rate 20 08/11/2013 1:41 PM EST Oxygen Saturation - - Inhaled Oxygen Concentration - - Weight 89.6 kg (197 lb 8 oz) 08/11/2013 1:41 PM EST Height 182.9 cm (6') 08/11/2013 1:41 PM EST Body Mass Index 26.79 08/11/2013 1:41 PM EST documented in this encounter Patient Instructions * Patient Instructions* Kandy Espana, DIRECTOR OF BRAND MARKETING - 08/11/2013 3:05 PM EST ?? Referral ENT -> scheduled [facility] on 08/17/2013. ?? PFTs - reviewed and provided copies -> PULM referral.. ?? Labs from last OV reviewed and provided copies ?? CXR reviewed and provided copies ?? HOLD enbrel. ?? Increase MTX By 2.5 mg (1 tab) weekly, up to 15 mg po weekly, if no nausea or GI upset. ?? Continue folic acid 1 mg po daily. ?? Continue medrol 4 mg po daily. ?? Discussed potential for modification in therapy - anti-TNF association with recurrent URI - consider Rituxan. ?? Continue treatments for dry mouth and blepharitis per Ophth/ENT; ongoing evoxac ?? Continue acetaminophen 1000 mg po QAM, prn. ?? Ongoing osteoporosis prevention strategies, dietary intake, supplementation with vitamin D (no calcium due to kidney stones), ongoing weightbearing activity and exercise. ?? Indications for holding Enbrel and methotrexate reviewed. ?? NO LIVE vaccines with biologic. ?? Annual influenza vaccine recommended and received at OSH (fall 2012) ?? Received PPSV booster today. ?? To establish with new PCP in 08/2013. ?? Ongoing HTN management -> PCP office. ?? Follow up at time of PULM consult, sooner for concerns, questions or increased signs/symptoms. documented in this encounter Progress Notes * Kandy Espana APRN - 08/11/2013 1:47 PM EST Established Patient Follow Up - Rheumatology Clinic Wesly Ybarra is a 62 y.o.male seen for ongoing evaluation and management of rheumatoid arthritis. He is accompanied by his sister. Patient Active Problem List Diagnosis Code ??? RA (rheumatoid arthritis) 714.0 ??? Osteopenia 733.90 ??? GERD (gastroesophageal reflux disease) 530.81 ??? Hyperlipidemia 272.4 ??? Depression 311 ??? HTN (hypertension) 401.9 ??? Burning sensation in eye 379.99 INTERVAL HISTORY: Plan at time of last office visit: Updates in BOLD italics. ?? Referral ENT. Scheduled in coming week - [facility]. ?? PFTs - screening planned. Reviewed. ?? Labs pending. Reviewed. ?? CXR. Reviewed. ?? HOLD enbrel. 7 weeks off - feels lousy -> impaired ROM - left shoulder -> pain; no joint swelling, sustained AM stiffness (generalized) worst in feet. Rosacea resolved after stopping enbrel.Ongoing dry cough. No fever, less mucous and congestion. ?? Continue MTX 7.5 mg po weekly; continue folic acid 1 mg po daily. Taking 5 mg po weekly; 7 weeks. ?? Continue medrol 2 mg po daily. 4 mg po daily. ?? Continue treatments for dry mouth and blepharitis per Ophth/ENT; ongoing evoxac Ongoing - finished ABX about 1 month ago. ?? Continue acetaminophen 1000 mg po QAM, prn. No action; no change. ?? Ongoing osteoporosis prevention strategies, dietary intake, supplementation with vitamin D (no calcium due to kidney stones), ongoing weightbearing activity and exercise. Ongoing. ?? Indications for holding Enbrel and methotrexate reviewed. No change. ?? NO LIVE vaccines with biologic.No change; ongoing recommendation. ?? Annual influenza vaccine recommended. ?? Received Prevnar 13 vaccine - provided today - [facility] handout (patient). No AE. ?? Will review PPSV booster indications -> If only one PPSV23 in lifetime , then needs another > 8 weeks after Prevnar. If 2 PPSV23 already, then one more vaccine after age 65. Planned today. ?? Ongoing HTN management -> KAMILA RODNEY MD. New PCP with scheduled appointment to establish. When last seen, reported still using (+) liquid tears; still (+) eye dryness, (+) pain (-) redness or visual changes.. Using Xylimelts for dry mouth with benefit. Plans follow up appointment with eyedoctor. Reports no limitations in self-care or diversional activities. Reports no fever, chills, visual changes, oral ulcers, + dry mouth, painful or difficult swallowing, diarrhea or skin rash. Appetite good and weight stable. No recurrent illness or infection. Denies other changes in medical, surgical orsocial history. Current Outpatient Prescriptions on File Prior to Visit Medication Sig Dispense Refill ??? venlafaxine (EFFEXOR-XR) 75 mg 24 hr capsule Take 75 mg by mouth daily. ??? methylPREDNISolone (MEDROL) 4 mg tablet TAKE 1/2 TABLET BY MOUTH DAILY 45 tablet 2 ??? Cholecalciferol, Vitamin D3, (VITAMIN D-3) 2,000 unit Cap Take by mouth. ??? lovastatin (MEVACOR) 10 mg tablet Take 10 mg by mouth nightly. ??? VENLAFAXINE HCL (EFFEXOR ORAL) Take 150 mg by mouth daily. ??? doxazosin (CARDURA) 1 mg tablet Take 1 mg by mouth nightly. ??? cevimeline (EVOXAC) 30 mg capsule Take 30 mg by mouth daily. ??? methotrexate 2.5 mg tablet Take 6 tablets by mouth once a week. 78 tablet 3 ??? folic acid (FOLVITE) 1 mg tablet Take 1 tablet by mouth 3 times daily. 270 tablet 3 ??? losartan (COZAAR) 50 mg tablet Take [...] mg capsule 30 mg, PO, QHS ??? etanercept (ENBREL) 50 mg/mL (0.98 mL) injection Inject 1 mL subcutaneously once a week. 12 each 3 ??? [DISCONTINUED] doxycycline (ADOXA) 50 mg tablet Take 50 mg by mouth daily. Allergies Allergen Reactions ??? Calcium kidney stones PHYSICAL EXAMINATION: Filed Vitals: 08/11/13 1341 BP: 156/101 Pulse: 85 Temp: 36.7 ??C (98 ??F) Resp: 20 Height: 182.9 cm (6') Weight: 89.585 kg (197 lb 8 oz) Recheck SHABBIR Manual - LEFT arm 144/78. Constitutional: Pleasant adult male, in no acute distress. HEENT: Normocephalic, atraumatic. Eyes -sclera clear. TMS intact - light reflex appropriate. Nares (+) dry, excoriated. (-) sphenoid and maxillary sinus pressure. Oral mucous membranes moist and intact. No posterior pharyngeal edema, exudate or erythema. No thyromegaly, anterior or cervical lymphadenopathy, submandibular or parotid glandenlargement. Chest: Heart rate and rhythm regular; (-) murmur or extra sounds. Lungs - basilar crackles bilateral , expiratory wheezing; (-) rales, or rhonchi. Musculoskeletal: Muscle mass bilaterally symmetric. Joint Exam: Neck ROM functional and nontender. Nontender to palpation at cervical, thoracic and lumbar spine. Bilateral shoulder ROM functional and nontender. Elbow ROM full, (+) tender; no synovitis, extensor surface nodules, or effusion. Wrist ROM functional and (+) tender bilaterally. MCPs and PIPs - thickened without swelling; nontender. CMC thickening; no swelling. Makes a near complete fist and claw. Hip ROM functional; arises seated to standing independently. Bilateral knees - no effusion, erythema, or warmth. ROM functional; (+) tender with extensionl. Bilateral ankle ROM functional, (+) tender; no swelling. MTPs tender to compression. Skin: Intact without rash, telangiectasias, + nail dystrophy. ASSESSMENT: Rheumatoid arthritis, sicca symptoms; dry cough, exertional dyspnea, drug safety monitoring. PLAN: ?? Referral ENT -> scheduled [facility] on 08/17/2013. ?? PFTs - reviewed and provided copies -> PULM referral.. ?? Labs from last OV reviewed and provided copies ?? CXR reviewed and provided copies ?? HOLD enbrel. ?? Increase MTX By 2.5 mg (1 tab) weekly, up to 15 mg po weekly, if no nausea or GI upset. ?? Continue folic acid 1 mg po daily. ?? Continue medrol 4 mg po daily. ?? Discussed potential for modification in therapy - anti-TNF association with recurrent URI - consider Rituxan. ?? Continue treatments for dry mouth and blepharitis per Ophth/ENT; ongoing evoxac ?? Continue acetaminophen 1000 mg po QAM, prn. ?? Ongoing osteoporosis prevention strategies, dietary intake, supplementation with vitamin D (no calcium due to kidney stones), ongoing weightbearing activity and exercise. ?? Indications for holding Enbrel and methotrexate reviewed. ?? NO LIVE vaccines with biologic. ?? Annual influenza vaccine recommended and received at OSH (fall 2012) ?? Received PPSV booster today. ?? To establish with new PCP in 08/2013. ?? Ongoing HTN management -> PCP office. ?? Follow up at time of PULM consult, sooner for concerns, questions or increased signs/symptoms. documented in this encounter Plan of Treatment Upcoming Encounters Date Type Department Care Team (Late st Contact Info) Description 04/28/2024 12:00 PM EDT [place] [phone] Scheduled Referrals Name Type Priority Associated Diagnoses Order Schedule Referral to Pulmonology Outpatient Referral Routine Dry cough Ordered: 08/11/2013 documented as of this encounter Visit Diagnoses Diagnosis Rheumatoid arthritis(714.0) Rheumatoid arthritis High risk medication use Encounter for long-term (current) use of other medications Need for prophylactic vaccination with Streptococcus pneumoniae (Pneumococcus) and Influenza vaccines Need for prophylactic vaccination against Streptococcus pneumoniae (pneumococcus) and influenza Dry cough Cough Hypertension Unspecified essential hypertension ZEPEDA (dyspnea on exertion) Other dyspnea and respiratory abnormality documented in this encounter Care Teams Adjunct Instructor Relationship Specialty Start Date End Date Kamila Rodney MD [facility] [address] [place] [address] [place] [address] PCP - General 07/25/10 11/08/13 documented as of this encounter
--- OUTSIDE RECORDS SUMMARY | 2024-04-06 02:31 | XMS_ITS | Encounter Summary ---
Author Organization [facility] [place] [address] Care Team Providers Care Neighborhood Conservation Officer Name Role Phone Arelis Michele MD Primary Care Provider [phone] Reason for Visit * Reason Comments Rheumatoid Arthritis Encounter Details Date Type Department Care Team (Late st Contact Info) Description 01/28/2014 10:30 AM EDT [place] [address] Kandy Espana, RN [facility] [place] [address] Rheumatoid arthritis(714.0) (Primary Dx); High risk medication use; Chronic steroid use; Situational stress Discharge Disposition: Home Social History Tobacco Use [...] Sign Reading Time Taken Comments Blood Pressure 143/94 01/28/2014 10:17 AM EDT Pulse 84 01/28/2014 10:17 AM EDT Temperature 36.5 ??C (97.7 ??F) 01/28/2014 10:17 AM E DT Respiratory Rate - - Oxygen Saturation 96% 01/28/2014 10:17 AM EDT Inhaled Oxygen Concentration - - Weight 99.8 kg (220 lb) 01/28/2014 10:17 AM EDT Height 182.9 cm (6') 01/28/2014 10:17 AM EDT Body Mass Index 29.84 01/28/2014 10:17 AM EDT documented in this encounter Patient Instructions * Patient Instructions* Kandy Espana APRN - 01/28/2014 11:11 AM EDT Decrease medrol to 4 mg po QAM, planned taper at follow up Rituxan therapy -> Course #1/infusion # 2 today. Labs from October 2013 reviewed. Encouraged ongoing support strategies for situational stress (family/community).. ?? HOLD enbrel. ?? Continue MTX 15 mg po weekly, if no nausea or GI upset. ?? Periodic medication safety monitoring. ?? Indications for holding methotrexate reviewed. ?? Continue folic acid 2 mg po daily. ?? Continue treatments for dry mouth and blepharitis. ?? OPHTH referral - appointment to be scheduled. ?? Continue acetaminophen 1000 mg po QAM, prn. ?? Ongoing osteoporosis prevention strategies, dietary intake, supplementation with vitamin D (no calcium due to kidney stones), ongoing weightbearing activity and exercise. ?? Annual influenza vaccine recommended. ?? Ongoing HTN management -> PCP office. ?? Will request copies of ECHO/Cardiology consult. ?? Follow up in 4 weeks, sooner for concerns, questions or increased signs/symptoms. ?? documented in this encounter Progress Notes * Kandy Espana APRN - 01/28/2014 10:45 AM EDT Established Patient Follow Up - [...] last office visit: Updates in BOLD italics. Procedure Note: Site Left shoulder subacromial Helpful after a few hours - still helping. No pain or swelling; no night time awakening. Continue medrol 8 mg po QAM. Taking 8 mg daily. Plan Rituxan therapy -> scheduled. First infusion (course # 1) -> 14 days ago. Started to feel better during infusion. No joint swelling, pain or sustained AM joint stiffness. Quantiferon Gold pending. <NEG>. Labs from October 2013 reviewed. Planned at follow up appointment. Reviewed support strategies for situational stress (family/community). [place]iece living in home with kids; her SO is in [place]. Mr. Ybarra able to see his great niece. Family supportive -> will stay with brother in winter, if needed. ?? HOLD enbrel. HOLDing enbrel. ?? Continue MTX 15 mg po weekly, if no nausea or GI upset. Weekly on SAT - 15 mg by mouth, folic acid 2 mg daily. ?? Indications for holding methotrexate reviewed. ?? Continue treatments for dry mouth and blepharitis. Using biotene. Still drops, much better. ?? OPHTH referral - follow up appointment to be scheduled. No action. ?? Continue acetaminophen 1000 mg po QAM, prn. Taking infrequently - uses for headaches. ?? Ongoing osteoporosis prevention strategies, dietary intake, supplementation with vitamin D (no calcium due to kidney stones), ongoing weightbearing activity and exercise. Ongoing. ?? Annual influenza vaccine recommended. Noted. ?? Ongoing HTN management -> PCP office. February 18 - follow up with Arelis Michele MD. Was referred to cardiology for evaluation of dyspnea. ECHO completed earlier this week. When last seen, noted the following: PULM plan -> No response to medrol x 7 days - plan is to follow up withPCP. Reports no limitations in self-care or diversional [...] Calcium kidney stones PHYSICAL EXAMINATION: Filed Vitals: 01/28/14 1017 BP: 143/94 Pulse: 84 Temp: 36.5 ??C (97.7 ??F) TempSrc: Oral Height: 182.9 cm (6') Weight: 99.791 kg (220 lb) SpO2: 96% Constitutional: Pleasant adult male, [...] and lumbar spine. Bilateral shoulder ROM functional, tender at lateral joint line on left. Elbow ROM full, (-) tender; no synovitis, extensor surface nodules, or effusion. Wrist ROM functional and (-) tender; no erythema or warmth. MCPs and PIPs - thickened; (-) swelling; CMC thickening; no swelling. Makes a near complete fist and claw. Hip ROM functional; arises seated to standing independently. Bilateral knees - no effusion, erythema, or warmth. ROM functional; (-) tender. Bilateral ankle ROM functional, decreased in inversion/eversion (-) tender; no swelling. MTPs tender to compression. Skin: Intact without rash, telangiectasias, + nail dystrophy. ASSESSMENT: Rheumatoid arthritis; sicca symptoms; situational stress, improved; drug safety monitoring. PLAN: Decrease medrol to 4 mg po QAM, planned taper at follow up Rituxan therapy -> Course #1/infusion # 2 today. Labs from October 2013 reviewed. Encouraged ongoing support strategies for situational stress (family/community).. ?? HOLD enbrel. ?? Continue MTX 15 mg po weekly, if no nausea or GI upset. ?? Periodic medication safety monitoring. ?? Indications for holding methotrexate reviewed. ?? Continue folic acid 2 mg po daily. ?? Continue treatments for dry mouth and blepharitis. ?? OPHTH referral - appointment to be scheduled. ?? Continue acetaminophen 1000 mg po QAM, prn. ?? Ongoing osteoporosis prevention strategies, dietary intake, supplementation with vitamin D (no calcium due to kidney stones), ongoing weightbearing activity and exercise. ?? Annual influenza vaccine recommended. ?? Ongoing HTN management -> PCP office. ?? Will request copies of ECHO/Cardiology consult. ?? Follow up in 4 weeks, sooner for concerns, questions or increased signs/symptoms. documented in this encounter Plan of Treatment Upcoming Encounters Date Type Department Care Team (Late st Contact Info) Description 04/28/2024 12:00 PM EDT [place] [id number] documented as of this encounter Visit Diagnoses Diagnosis Rheumatoid arthritis(714.0)- Primary Rheumatoid arthritis High risk medication use Encounter for long-term (current) use of other medications Chronic steroid use Encounter for long-term (current) use of steroids Situational stress Other psychological or physical stress, not elsewhere classified documented in this encounter Care Teams Neighborhood Conservation Officer Relationship Specialty Start Date End Date Arelis Michele MD [address] [place] [address] PCP - General 11/16/13 06/10/18 documented as of this encounter
--- OUTSIDE RECORDS SUMMARY | 2024-04-06 02:31 | XMS_ITS | Encounter Summary ---
Author Organization [facility] [place] [address] Care Team Providers Care Buffet Manager Name Role Phone Unknown Primary Care Provider Unavailabl e Reason for Referral * Consultation (Routine) - Closed Specialty Diagnoses / Procedures Referred By Contmabel t Referred To Contact Ophthalmology Diagnoses Dry eyes, bilateral Kandy Espana, ASHLEY [facility] [address] [place] [address] [facility] Ophthalmology [address] [place] [phone] Referral ID Status Reason Start Date Expiration Date V isits Requested Visits Authorized [id number] Closed Consult, Test & Treat 11/09/2013 05/08/2014 1 1 Encounter Details Date Type Department Care Team (Late st Contact Info) Description 11/09/2013 12:00 PM EDT [place] [address] Kandy Espana RN [facility] DR [place] [address] Rheumatoid arthritis(714.0) (Primary Dx); High risk medication use; Encounter for long-term (current) use of other medications; Need for prophylactic vaccination against Streptococcus pneumoniae (pneumococcus); Dry eyes, bilateral Discharge Disposition: Home Social History Tobacco Use [...] * Patient Instructions* Kandy Espana APRN - 11/09/2013 12:38 PM EDT ?? PULM appointment -> notes pending. ?? Follow up scheduled 11/16/2013 -> methacholine challenge test. ?? HOLD enbrel. ?? Continue MTX 10 mg po weekly, if no nausea or GI upset. ?? Indications for holding methotrexate reviewed. ?? Continue folic acid 2 mg po daily. ?? Continue medrol 4 mg po daily. ?? Continue treatments for dry mouth and blepharitis. ?? OPHTH referral. ?? Continue acetaminophen 1000 mg po QAM, prn. ?? Ongoing osteoporosis prevention strategies, dietary intake, supplementation with vitamin D (no calcium due to kidney stones), ongoing weightbearing activity and exercise. ?? Indications for holding methotrexate reviewed. ?? Annual influenza vaccine recommended. ?? Ongoing HTN management -> PCP office. documented in this encounter Progress Notes * Kandy Espana APRN - 11/09/2013 10:34 AM EDT Established Patient Follow Up - [...] 786.2 ??? SOB (shortness of breath) 786.05 INTERVAL HISTORY: Plan at time of last office visit: Updates in BOLD italics. ?? Follow per ENT, prn. No action; no change. ?? PULM appointment to be re-scheduled. Seen earlier today. ?? HOLD enbrel. Ongoing. ?? Continue MTX 10 mg po weekly, if no nausea or GI upset. No interruption. No AE - oral ulcers, skin rash, GI upset. ?? Continue folic acid 2 mg po daily. Ongoing. ?? Continue medrol 4 mg po daily. Ongoing in PM. ?? Continue treatments for dry mouth and blepharitis per Ophth/ENT; ongoing evoxac. Would like to return to OPHTH at -> ongoing eye irritation; no improvement in crusting after implementing recommended treatment. ?? Continue acetaminophen 1000 mg po QAM, prn. In PM; generalized joint stiffness. ?? Ongoing osteoporosis prevention strategies, dietary intake, supplementation with vitamin D (no calcium due to kidney stones), ongoing weightbearing activity and exercise. Ongoing. ?? Indications for holding methotrexate reviewed. Reminder; verbalizes understanding. ?? Annual influenza vaccine recommended. Ongoing recommendation. ?? To establish with new PCP in 09/2013. Established - seen for cold in August 2013. ?? Ongoing HTN management -> PCP office. Good days and bad days for rheumatoid arthritis. Having trouble with fingers (+) stiffness. When last seen, reported still using (+) liquid tears; still (+) eye dryness, (+) pain (-) redness or visual changes. Reports no limitations in self-care or diversional activities. Reports no fever, chills, visual changes, oral ulcers, + dry mouth, painful or difficult swallowing, diarrhea or skin rash. Appetite good and weight stable. No recurrent illness or infection. In the dog house with sister -> ongoing issues around house sharing with niece and boyfriend who has been diagnosed withs bi-polar disorder. Denies other changes in medical, surgical or social history. Current Outpatient Prescriptions on File Prior to Visit Medication Sig Dispense Refill ??? methylPREDNISolone (MEDROL) 4 mg tablet Take [...] Reactions ??? Calcium kidney stones PHYSICAL EXAMINATION: Constitutional: Pleasant adult male, in no acute distress. HEENT: Normocephalic, atraumatic. Eyes -sclera clear. Nares (+) dry, intact. (-) sphenoid and maxillary sinus pressure. Oral mucous membranes moist and intact. No thyromegaly, anterior or cervical lymphadenopathy, submandibular or parotid g land enlargement. Chest: Heart rate and rhythm regular; (-) murmur or extra sounds. Lungs - clear to auscultation; (-) wheezing; (-) rales, or rhonchi. Musculoskeletal: Muscle mass bilaterally symmetric. Joint Exam: Neck ROM functional and nontender. Nontender to palpation at cervical, thoracic andlumbar spine. Bilateral shoulder ROM functional and nontender. Elbow ROM full, (-) tender; no synovitis, extensor surface nodules, or effusion. Wrist ROM functional and (-) tender; no erythema or warmth. MCPs and PIPs - thickened; (-) swelling; nontender. CMC thickening; no swelling. Makes a near complete fist and claw. Hip ROM functional; arises seated to standing independently. Bilateral knees - no effusion, erythema, or warmth. ROM functional; (+) tender with extension. Bilateral ankle ROM functional, decreased in inversion/eversion (-) tender; no swelling. MTPs tender to compression. Skin: Intact without rash, telangiectasias, + nail dystrophy. ASSESSMENT: Rheumatoid arthritis, blepharitis; sicca symptoms; drug safety monitoring. PLAN: ?? PULM appointment -> notes pending. ?? Follow up scheduled 11/16/2013 -> methacholine challenge test. ?? HOLD enbrel. ?? Continue MTX 10 mg po weekly, if no nausea or GI upset. ?? Indications for holding methotrexate reviewed. ?? Continue folic acid 2 mg po daily. ?? Continue medrol 4 mg po daily. ?? Continue treatments for dry mouth and blepharitis. ?? OPHTH referral. ?? Continue acetaminophen 1000 mg po QAM, prn. ?? Ongoing osteoporosis prevention strategies, dietary intake, supplementation with vitamin D (no calcium due to kidney stones), ongoing weightbearing activity and exercise. ?? Indications for holding methotrexate reviewed. ?? Annual influenza vaccine recommended. ?? Ongoing HTN management -> PCP office. ?? Follow up in 3 months, sooner for concerns, questions or increased signs/symptoms. documented in this encounter Plan of Treatment Upcoming Encounters Date Type Department Care Team (Late st Contact Info) Description 04/28/2024 12:00 PM EDT [place]ment [place] [address] Scheduled Orders Name Type Priority Associated Diagnoses Orde r Schedule BUN Lab Routine Encounter for long-term (current) use of other medications Expected: 11/09/2013, Expires: 11/09/2014 Hepatic Function Panel Lab Routine Encounter for long-term (current) use of other medications Expected: 11/09/2013, Expires: 11/09/2014 Scheduled Referrals Name Type Priority Associated Diagnoses Order Schedule Referral to Ophthalmology Outpatient Referral Routine Dry eyes, bilateral Ordered: 11/09/2013 documented as of this encounter Procedures Procedure Name Priority Date/Time Associated Diagnosis Comments DIFFERENTIAL, AUTOMATED Routine 11/09/2013 12:29 PM EDT CBC (WITH DIFF) Routine 11/09/2013 12:29 PM EDT Encounter for long-term (current) use of other medications CRP, CARDIAC RISK (HS CRP) Routine 11/09/2013 12:29 PM EDT Encounter for long-term (current) use of other medications BUN Routine 11/09/2013 12:29 PM EDT Rheumatoid arthritis(714.0) Encounter for long-term (current) use of other medications HEPATIC FUNCTION PANEL Routine 11/09/2013 12:29 PM EDT Rheumatoid arthritis(714.0) Encounter for long-term (current) use of other medications documented in this encounter Results * Differential, Automated (11/09/2013 12:29 PM EDT) Neutrophil % 60.1 34.0 - 71.0 % CERNER MILLENNIUM Neutrophil Absolute 6.19 1.50 - 6.30 x10(3)/mcL CERNER MILLENNIUM Lymph % 28.4 19.0 - 53.0 % CERNER MILLENNIUM Lymphocytes Abs 2.9 1.0 - 3.6 x10(3)/mcL CERNER MILLENNIUM Monocyte % 9.7 4.0 - 13.0 % CERNER MILLENNIUM Monocyte Abs 1.0 0.2 - 1.0 x10(3)/mcL CERNER MILLENNIUM Eos % 1.5 0.0 - 7.0 % CERNER MILLENNIUM Eosinophils Abs 0.2 0.0 - 0.5 x10(3)/mcL CERNER MILLENNIUM Basophil % 0.2 0.0 - 2.0 % CERNER MILLENNIUM Baso Absolute 0.0 0.0 - 0.2 x10(3)/mcL CERNER MILLENNIUM Immature Gran % 0.10 0.00 - 0.66 % CERNER MILLENNIUM Comment: Immature granulocytes(IG's)percentage and absolute count will include metamyelocytes, myelocytes, and promyelocytes. Blood smears from CBCs yielding IG's will be scanned manually for concordance. If this scan disagrees with the automated IG or if promyelocytes are noted, a manual differential will be performed. Immature Gran Absolute 0.01 0.00 - 0.05 x10(3)/mcL CERNER MILLENNIUM Blood specimen (specimen) 11/09/2013 12:29 PM EDT 11/09/2013 12:42 PM EDT Charlotte Gonzalez MD HEMATOLOGY ORDERABLE S Performing Organization Address [facility] de Phone Number CERFRANKIE NEGRETEENNIUM * BUN (11/09/2013 12:29 PM EDT) Blood Urea Nitrogen 11 10 - 20 mg/dL CERNER MILLENNIUM Blood specimen (specimen) 11/09/2013 12:29 PM EDT 11/09/2013 12:42 PM EDT Narrative Resulting Agency Comment Spec In Lab Charlotte Gonzalez MD CHEMISTRY ORDERABLES Performing Organization Address [facility] Phone Number CERNER MILLENNIUM * Hepatic Function Panel (11/09/2013 12:29 PM EDT) Protein, Total 6.7 6.4 - 8.3 gm/dL CERNER MILLENNIUM Albumin 4.2 3.2 - 5.2 gm/dL CERNER MILLENNIUM Aspartate Aminotransferase 21 0 - 39 unit/L CERNER MILLENNIUM Alanine Aminotransferase 26 0 - 55 unit/L CERNER MILLENNIUM Alkaline Phosphatase 77 40 - 120 unit/L CERNER MILLENNIUM Bilirubin, Total 0.4 0.2 - 1.3 mg/dL CERNER MILLENNIUM Bilirubin, Direct 0.1 0.0 - 0.3 mg/dL CERNER MILLENNIUM Blood specimen (specimen) 11/09/2013 12:29 PM EDT 11/09/2013 12:42 PM EDT Narrative Resulting Agency Comment Spec In Lab Charlotte Gonzalez MD CHEMISTRY ORDERABLES Performing Organization Address [facility] Co de Phone Number CERFRANKIE NEGRETEENNIUM * High Sensitivity CRP (11/09/2013 12:29 PM EDT) C-Reactive Protein High Sensitivity 3.3 mg/L CERNER MILLENNIUM Comment: Interpretations: 1) For accurate cardiac risk [...] and Cardiovascular Disease. ??Circulation 2003; 107:499-511 2. [place] PM. ??Clinical applications of C-reactive protein for cardiovascular disease detection and prevention. ??Circulation 2003; 107:363-369 Blood specimen (specimen) 11/09/2013 12:29 PM EDT 11/09/2013 12:42 PM EDT Narrative Resulting Agency Comment Spec In Lab Jennifer Hawley DO CHEMISTRY [facility] [employer] * (ABNORMAL) CBC (with Diff) (11/09/2013 12:29 PM EDT) White Blood Cell 10.3(H) 4.0 - 10.0 x10(3)/mc L CERNER MILLENNIUM Red Blood Cell 5.42 4.63 - 6.08 x10(6)/mc L CERNER MILLENNIUM Hemoglobin 16.7 13.7 - 17.5 gm/dL CERNER MILLENNIUM Hematocrit 49.7 40.0 - 51.0 % CERNER MILLENNIUM Mean Cell Volume 91.7 79.0 - 92.0 fL CERNER MILLENNIUM Mean Cell Hemoglobin 30.8 25.6 - 32.2 pg CERNER MILLENNIUM Mean Cell Hemoglobin Concentration 33.6 32.0 - 36.5 gm/dL CERNER MILLENNIUM Platelet 255 145 - 370 x10(3)/mc L CERNER MILLENNIUM RDW Standard Deviation 52.1(H) 35.0 - 46.0 fL CERNER MILLENNIUM RDW coefficient of variation 15.7(H) 10.9 - 14.4 % CARLOS DENNIS Mean Platelet Volume 9.8 9.0 - 12.0 fL CARLOS DENNIS Blood specimen (specimen) 11/09/2013 12:29 PM EDT 11/09/2013 12:42 PM EDT Narrative Resulting Agency Comment Spec In Lab Jennifer Hawley DO HEMATOLOGY ORDER DARIAN CARLOS DENNIS documented in this encounter Visit Diagnoses Diagnosis Rheumatoid arthritis(714.0)- Primary Rheumatoid arthritis High risk medication use Encounter for long-term (current) use of other medications Encounter for long-term (current) use of other medications Need for prophylactic vaccination against Streptococcus pneumoniae (pneumococcus) Need for prophylactic vaccination against streptococcus pneumoniae (pneumococcus) Dry eyes, bilateral Tear film insufficiency, unspecified documented in this encounter Care Teams Buffet Manager Relationship Specialty Start Date End Date Unknown None PCP - General 11/09/13 11/15/13 documented as of this encounter
--- OUTSIDE RECORDS SUMMARY | 2024-04-06 02:31 | XMS_ITS | Encounter Summary ---
[place] [address] Care Team Providers Care Master Brewer Name Role Phone Arelis Michele MD Primary Care Provider [phone] Encounter Details Date Type Department Care Team (Latest Contact Info) Description 06/08/2015 12:15 PM EDT Laboratory [place] [address] Rheumatoid arthritis; High risk medication use; Medication [...] 12:00 PM EDT Appointment [place] [address] documented as of this encounter Procedures Procedure Name Priority Date/Time Associated Diagnosis Comments HEMOGRAM Routine 06/08/2015 11:45 AM EDT Rheumatoid arthritis High risk medication use Medication monitoring encounter Cough DIFFERENTIAL, AUTOMATED Routine 06/08/2015 11:45 AM EDT Rheumatoid arthritis High risk medication use Medication monitoring encounter Cough SEDIMENTATION RATE Routine 06/08/2015 11 :45 AM EDT Rheumatoid arthritis High risk medication use Medication monitoring encounter Cough CBC (WITH DIFF) Routine 06/08/2015 11:45 AM EDT Rheumatoid arthritis High risk medication use Medication monitoring encounter Cough CRP, CARDIAC RISK (HS CRP) Routine 06/08/2015 11:45 AM EDT Rheumatoid arthritis High risk medication use Medication monitoring encounter Cough COMPREHENSIVE METABOLIC PANEL Routine 06/08/2015 11:45 AM EDT Rheumatoid arthritis High risk medication use Medication monitoring encounter Cough documented in this encounter Results * Differential, Automated (06/08/2015 11:45 AM EDT) Neutrophil % 45.8 % CERNER MILLENNIUM Neutrophil Absolute 3.28 1.50 - 6.30 x10(3)/mcL CERNER MILLENNIUM Lymph % 36.8 % CERNER MILLENNIUM Lymphocytes Abs 2.6 1.0 - 3.6 x10(3)/mcL CERNER MILLENNIUM Monocyte % 9.9 % CERNER MILLENNIUM Monocyte Abs 0.7 0.2 - 1.0 x10(3)/mcL CERNER MILLENNIUM Eos % 6.7 % CERNER MILLENNIUM Eosinophils Abs 0.5 0.0 - 0.5 x10(3)/mcL CERNER MILLENNIUM Basophil % 0.7 % CERNER MILLENNIUM Baso Absolute 0.0 0.0 - 0.2 x10(3)/mcL CERNER MILLENNIUM Immature Gran % 0.10 % CERN ER MILLENNIUM Comment: Immature granulocytes(IG's)percentage and absolute count will include metamyelocytes, myelocytes, and promyelocytes. Blood smears from CBCs yielding IG's will be scanned manually for concordance. If this scan disagrees with the automated IG or if promyelocytes are noted, a manual differential will be performed. Immature Gran Absolute 0.01 0.00 - 0.05 x10(3)/mcL CERNER MILLENNIUM Blood specimen (specimen) 06/08/2015 11:45 AM EDT 06/08/2015 11:56 AM EDT Narrative Resulting Agency Comment Spec In Lab Doe Obrien MD HEMATOLOGY ORDERA BLES Performing Organization Address [facility]/ZIP Co de Phone Number CERNER MILLENNIUM * (ABNORMAL) Hemogram (06/08/2015 11:45 AM EDT) Pathologist [facility] White Blood Cell 7.2 4.0 - 10.0 x10(3)/mc L CERNER MILLENNIUM Red Blood Cell 4.53(L) 4.63 - 6.08 x10(6)/mc L CERNER MILLENNIUM Hemoglobin 13.9 13.7 - 17.5 gm/dL CERNER MILLENNIUM Hematocrit 42.5 40.0 - 51.0 % CERNER MILLENNIUM Mean Cell Volume 93.8(H) 79.0 - 92.0 fL CERNER MILLENNIUM Mean Cell Hemoglobin 30.7 25.6 - 32.2 pg CERNER MILLENNIUM Mean Cell Hemoglobin Concentration 32.7 32.0 - 36.5 gm/dL CERNER MILLENNIUM Platelet 283 145 - 370 x10(3)/mc L CERNER MILLENNIUM RDW Standard Deviation 50.0(H) 35.0 - 46.0 fL CERNER MILLENNIUM RDW coefficient of variation 14.7(H) 10.9 - 14.4 % CERNER MILLENNIUM Mean Platelet Volume 9.9 9.0 - 12.0 fL CERNER MILLENNIUM Blood specimen (specimen) 06/08/2015 11:45 AM EDT 06/08/2015 11:56 AM EDT Narrative Resulting Agency Comment Spec In Lab Doe Obrien MD HEMATOLOGY ORDERA BLES CERFRANKIE NEGRETEENNIUM * (ABNORMAL) Comprehensive metabolic panel (non-fasting) (06/08/2015 11:45 AM EDT) Pathologist [facility] Glucose 94 65 - 199 mg/dL CERNER MILLENNIUM Comment:Diabetes: >=200 mg/d L plus symptoms Blood Urea Nitrogen 7(L) 10 - 20 mg/dL CERNER MILLENNIUM Creatinine 0.85 0.80 - 1.50 mg/dL CERNER MILLENNIUM Comment: Please note that the pediatric reference intervals supplied above were not validated at [facility]. Results from pediatric patients should be interpreted [...] the following links into your internet browser. [email or web address] [email or web address] Blood specimen (specimen) 06/08/2015 11:45 AM EDT 06/08/2015 11:56 AM EDT Narrative Resulting Agency Comment Spec In Lab Doe Obrien MD CHEMISTRY ORDERAB LES CARLOS DENNIS * Sedimentation rate (06/08/2015 11:45 AM EDT) Pathologist [facility] Sedimentation Rate Automated 9 0 - 15 mm/hr [facility] Blood specimen (specimen) 06/08/2015 11:45 AM EDT 06/08/2015 11:56 AM EDT Narrative Resulting Agency Comment Spec In Lab Doe Obrien MD HEMATOLOGY ORDERA BLES Performing Organization Address [facility] Phone Number CARLOS NEGRETECityTherapyMARVA * High Sensitivity CRP (06/08/2015 11:45 AM EDT) Pathologist [facility] C-Reactive Protein High Sensitivity 5.0 mg/L [facility] Comment: Interpretations: 1) For accurate cardiac [...] MD CHEMISTRY ORDERAB LES Performing Organization Address [facility] de Phone Number CARLOS DENNIS documented in this encounter Visit Diagnoses Diagnosis Rheumatoid arthritis High risk medication use Encounter for long-term (current) use of other medications Medication monitoring encounter Encounter for therapeutic drug monitoring Cough documented in this encounter Care Teams Master Brewer Relationship Specialty Start Date End Date Arelis Michele MD [address] [place] [address] PCP - General 11/16/13 06/10/18 documented as of this encounter
--- OUTSIDE RECORDS SUMMARY | 2024-04-06 02:31 | XMS_ITS | Encounter Summary ---
Author Organization [facility] [place] [address] Care Team Providers Care Technical Support Professional Name Role Phone Arelis Michele MD Primary Care Provider [phone] Reason for Referral * Consultation (Routine) - Closed Specialty Diagnoses / Procedures Referred By Azam corbett Referred To Contact Med Infusion Diagnoses Rheumatoid arthritis Kandy Espana, RN [facility] [place] [address] [facility] Med Infusion [address] [place] [phone] Referral ID Status Reason Start Date Expiration Date V isits Requested Visits Authorized [id number] Closed Consult, Test & Treat 01/05/2015 01/05/2016 1 1 Encounter Details Date Type Department Care Team (Late st Contact Info) Description 01/05/2015 Orders [place] [address] Kandy Espana, RN [facility] [place] [address] Rheumatoid arthritis Social History Tobacco Use Types [...] 12:00 PM EDT Appointment [place] [address] Scheduled Referrals Name Type Priority Associated Diagnoses Orde r Schedule Referral to Infusion Clinic Outpatient Referral Routine Rheumatoid arthritis Ordered: 01/05/2015 documented as of this encounter Visit Diagnoses Diagnosis Rheumatoid arthritis documented in this encounter Care Teams Technical Support Professional Relationship Specialty Start Date End Date Arelis Michele MD [address] [place] [address] PCP - General 11/16/13 06/10/18 documented as of this encounter
--- OUTSIDE RECORDS SUMMARY | 2024-04-06 02:31 | XMS_ITS | Encounter Summary ---
[place] [address] Care Team Providers Care Escrow Officer Name Role Phone Arelis Michele MD Primary Care Provider [phone] Reason for Visit * Reason Onset Date Comments Other 06/08/2015 MAP-med assistan ce for pt seeing non- provider Encounter Details Date Type Department Care Team (Late st Contact Info) Description 06/08/2015 [place] [address] Kassandra Lima (MAP-med assistance for pt seeing non-[facility] provider) Social History Tobacco Use Types Packs/Day Years [...] encounter Miscellaneous Notes * Telephone Encounter - Kassandra Lima - 06/08/2015 2:18 PM EDT MAP-med assistance for pt seeing non- provider Mr. Ybarra stopped into Care Management to ask about medication assistance. It seems as if Mr. Ybarra had a Medicare Part D plan with [employer], but the [employer] ended a few months ago. Once [employer] ended,[employer] would not cover costs as they were the secondary payor. Mr. Ybarra did not call [employer] to see why his program ended, but he felt that it had to do with the fact that he turned 64 in October and disability changed over to regular Social Security. Mr. Ybarra did not have his insurance cards so I was not able to call the company with him to seewhat happened. Instead, I gave him the contact information for the [employer] for [facility] and encouraged him to call them to ask about what benefits (if any) he currently has, what he would be eligible for in the future, and to help him apply. I also gave him a few MAP applications to take to his local PCP to complete for possible free medication programs while he is uninsured. No MAP available at this time. documented in this encounter Plan of Treatment Upcoming Encounters Date Type Department Care Team (Late st Contact Info) Description 04/28/2024 12:00 PM EDT Appointment [place] [address] documented as of this encounter Visit Diagnoses Not on filedocumented in this encounter Care Teams Escrow Officer Relationship Specialty Start Date End Date Arelis Michele MD [address] [place] [address] PCP - General 11/16/13 06/10/18 documented as of this encounter
--- OUTSIDE RECORDS SUMMARY | 2024-04-06 02:31 | XMS_ITS | Encounter Summary ---
Author Organization [facility] [place] [address] Care Team Providers Care Roll Up Operator Name Role Phone Arelis Michele MD Primary Care Provider [phone] Encounter Details Date Type Department Care Team (Latest Contact Info) Description 11/16/2013 10:54 AM EDT - 11/16/2013 11:59 PM EDT Hospital [place] [address] SCHEDULE 1, PFT Robin Dodge MD [facility] [place] [address] SOB (shortness of breath) (Primary Dx) Discharge Disposition: Home Social History [...] OTC mositurizing eye drops 11/02/2010 methylPREDNISolone (MEDROL) 16 mg tabletIndications:Chroni c cough Take 1 tablet by mouth daily. 7 tablet 0 11/16/2013 12/24/2013 methylPREDNISolone (MEDROL) 4 mg tablet Take 1 [...] as of this encounter Procedure Notes * Robin Dodge MD - 11/16/2013 2:18 PM EDTAssociated Order(s): PULMONARY FUNCTION TEST PULMONARY FUNCTION INTERPRETATION Challenge testing showed a 14% decrease in FEV1 after cumulative inhalation of methacholine. Impression: Normal bronchoprovocation challenge test. Robin Dodge M.D. documented in this encounter Plan of Treatment Upcoming Encounters Date Type Department Care Team (Late st Contact Info) Description 04/28/2024 12:00 PM EDT [place] [address] documented as of this encounter Procedures Procedure Name Priority Date/Time Associated Diagnosis Comments COMMON PULMONARY FUNCTION TEST Routine 11/16/2013 2:20 PM EDT SOB (shortness of breath) documented in this encounter Results * Pulmonary Function Testing (11/16/2013 2:20 PM EDT) Narrative Robin Dodge MD - 11/16/2013 2:20 PM EDT Robin Dodge MD ? 11/16/2013 ??2:20 PM PULMONARY FUNCTION INTERPRETATION Challenge testing showed a 14% decrease in FEV1 after cumulative inhalation of methacholine. Impression: ??Normal bronchoprovocation challenge test. Robin Dodge M.D. Procedure Note Robin Dodge MD - 11/16/2013 2:18 PM EDT PULMONARY FUNCTION INTERPRETATION Challenge testing showed a 14% decrease in FEV1 after cumulativeinhalation of methacholine. Impression: Normal bronchoprovocation challenge test. Robin Dodge M.D. Robin Dodge MD PFT ORDERABLES documented in this encounter Visit Diagnoses Diagnosis SOB (shortness of breath)- Primary Shortness of breath documented in this encounter Care Teams Roll Up Operator Relationship Specialty Start Date End Date Arelis Michele MD [address] [place] [address] PCP - General 11/16/13 06/10/18 documented as of this encounter
--- OUTSIDE RECORDS SUMMARY | 2024-04-06 02:31 | XMS_ITS | Encounter Summary ---
Author Organization [facility] [place] [address] Care Team Providers Care Junior High Math Teacher Name Role Phone Arelis Michele MD Primary Care Provider [phone] Reason for Visit * Reason Comments IV Medication Encounter Details Date Type Department Care Team (Latest Contact Info) Description 09/01/2014 9:21 AM EST - 09/01/2014 11:59 PM EST Hospital En[place] [id number] CLINIC, Jennifer Stratton, [facility] [place] [address] RA (rheumatoid arthritis) Discharge Disposition: Home Social History Tobacco Use [...] Sign Reading Time Taken Comments Blood Pressure 138/82 09/01/2014 10:19 AM EST Pulse 58 09/01/2014 10:19 AM EST Temperature 36.5 ??C (97.7 ??F) 09/01/2014 10:[address] Respiratory Rate 16 09/01/2014 10:19 AM EST Oxygen Saturation 99% 09/01/2014 10:19 AM EST Inhaled Oxygen Concentration - - [...] Med - OTC mositurizing eye drops 11/02/2010 gabapentin (NEURONTIN) 300 mg Capsule Take 300 mg by mouth daily. Not using 05/10/2014 12/15/2014 clopidogrel (PLAVIX) 75 mg tablet Take 75 [...] hours as needed. Use with spacer 12/08/2021 methylPREDNISolone (MEDROL) 4 mg tablet Take 1 [...] Progress Notes * Jesús Garcia RN - 09/01/2014 10:27 AM EST Patient Name: Wesly Ybarra Patient Age: 63 y.o. Birthdate: 1950 Admit date: 09/01/2014 Attending Physician: Dr Swapna Maciel INFUSION THERAPY ADMINISTRATION NOTES DIAGNOSIS: The encounter diagnosis was RA (rheumatoid arthritis). REASON FOR VISIT: Rituxan day # 15 SUBJECTIVE: Offers no complaints. OBJECTIVE: Last dose received on 08/17/14 VITALS: BP 138/82 Pulse 58 Temp(Src) 36.5 ??C (97.7 ??F) (Oral) Resp 16 SpO2 99% IF PAIN >5, INTERVENTION AND EFFECTIVENESS: na IV ACCESS: Peripheral IV - Single Lumen 09/01/14 0935 median vein right (underside of arm) 24 gauge;3/4 in length (Active) HYDRATION: NS @ KVO 0935. Off with infusion ANTIEMETICS/PREMEDS, Methylprednisolone 100 mg IV @ 0935 to 0945 Benadryl 25 mg IV@ 0945 to 0955 Patient identification and orders checked against actual dose given at bedside by Jesús Garcia RN TREATMENT/BLOOD/OTHER, Rituxan 1000 mg IV Administration times :See Oct day dosing schedule used. REACTIONS None. ASSESSMENT: Tolerated infusion well. PLAN: Follow up per rheumatology clinic. documented in this encounter Plan of Treatment Upcoming Encounters Date Type Department Care Team (Late st Contact Info) Description 04/28/2024 12:00 PM EDT Appointment [place] [phone] documented as of this encounter Visit Diagnoses Diagnosis RA (rheumatoid arthritis) Rheumatoid arthritis documented in this encounter Administered Medications Inactive Administered Medications - up to 3 most recent administrations Medication Order MAR Action Action Date Dose Rate Site riTUXimab (RITUXAN) 1,000 mg in sodium chloride 0.9% 500 mL infusion 1,000 mg, Intravenous, ONCE, 1 dose, On Sat09/01/14 at 0945 New Bag 09/01/2014 10:05 AM EST 1,000 mg documented in this encounter Care Teams Junior High Math Teacher Relationship Specialty Start Date End Date Arelis Michele MD [address] [place] [address] PCP - General 11/16/13 06/10/18 documented as of this encounter
--- OUTSIDE RECORDS SUMMARY | 2024-04-06 02:31 | XMS_ITS | Encounter Summary ---
[place] [address] Care Team Providers Care Attorney Name Role Phone Arelis Michele MD Primary Care Provider [phone] Reason for Visit * Reason Comments IV Medication Encounter Details Date Type Department Care Team (Latest Contact Info) Description 08/17/2014 10:26 AM EST - 08/17/2014 11:59 PM EST Hospital Encounter [place] [address] CLINIC, DR SWAPNA DEE (rheumatoid arthritis) Social History Tobacco Use Types [...] Sign Reading Time Taken Comments Blood Pressure 125/73 08/17/2014 10:57 AM EST Pulse 67 08/17/2014 10:57 AM EST Temperature 36.8 ??C (98.2 ??F) 08/17/2014 10:[address] Respiratory Rate 16 08/17/2014 10:57 AM EST Oxygen Saturation 97% 08/17/2014 10:57 AM EST Inhaled Oxygen Concentration - - [...] Progress Notes * Jesús Garcia RN - 08/17/2014 11:27 AM EST Patient Name: Wesly Ybarra Patient Age: 63 y.o. Birthdate: 1950 Admit date: 08/17/2014 Attending Physician: Dr Swapna Maciel INFUSION THERAPY ADMINISTRATION NOTES DIAGNOSIS: The encounter diagnosis was RA (rheumatoid arthritis). REASON FOR VISIT: Rituxan day # 1 SUBJECTIVE: Offers no complaints. OBJECTIVE: Last dose received on 01/28/14 VITALS: BP 125/73 Pulse 67 Temp(Src) 36.8 ??C (98.2 ??F) (Oral) Resp 16 SpO2 97% IF PAIN >5, INTERVENTION AND EFFECTIVENESS: na IV ACCESS: Peripheral IV - Single Lumen 08/17/14 1110 median vein right (underside of arm) 24 gauge;3/4 in length (Active) HYDRATION: NS @ KVO 1100 TO 1120. Off with infusion ANTIEMETICS/PREMEDS, Methylprednisolone 100 mg IV @ 1100 to 1110 Benadryl 25 mg IV@ 1110 to 1120 Patient identification and orders checked against actual dose given at bedside by Jesús Garcia RN TREATMENT/BLOOD/OTHER, Rituxan 1000 mg IV Administration times :See OCT second day dosing schedule used. REACTIONS None. ASSESSMENT: Tolerated infusion well. PLAN: Return to clinic in 2 weeks on 09/01/14 Follow up per rheumatology clinic. documented in this encounter Plan of Treatment Upcoming Encounters Date Type Department Care Team (Late st Contact Info) Description 04/28/2024 12:00 PM EDT Appointment [place] [address] documented as of this encounter Visit Diagnoses Diagnosis RA (rheumatoid arthritis) Rheumatoid arthritis documented in this encounter Administered Medications Inactive Administered Medications - up to 3 most recent administrations Medication Order MAR Action Action Date Dose Rate Site riTUXimab (RITUXAN) 1,000 mg in sodium chloride 0.9% 500 mL infusion 1,000 mg, Intravenous, ONCE, 1 dose, On Sat08/17/14 at 1100 New Bag 08/17/2014 11:00 AM EST 1,000 mg documented in this encounter Care Teams Attorney Relationship Specialty Start Date End Date Arelis Michele MD [address] [place] [address] PCP - General 11/16/13 06/10/18 documented as of this encounter
--- OUTSIDE RECORDS SUMMARY | 2024-04-06 02:31 | XMS_ITS | Encounter Summary ---
Author Organization [facility] [place] [address] Care Team Providers Care Parlor Maid Name Role Phone Unknown Primary Care Provider Unavailabl e Encounter Details Date Type Department Care Team (Latest Contact Info) Description 11/09/2013 10:32 AM EDT - 11/09/2013 11:59 PM EDT Hospital [place] [address] SCHEDULE 1, PFT Robin Dodge MD [facility] [place] [address] SOB (shortness of breath) (Primary Dx) Discharge [...] as of this encounter Procedure Notes * Randall Frazier MD - 11/13/2013 4:13 PM EDTAssociated Order(s): PULMONARY FUNCTION TEST Forced vital capacity is decreased. FEV1 is decreased. The ratio is normal. There is no significantresponse to bronchodilators. Spirometry suggests restriction or air trapping. Suggest lung volume clinically indicated. documented in this encounter Plan of Treatment Upcoming Encounters Date Type Department Care Team (Late st Contact Info) Description 04/28/2024 12:00 PM EDT [place] [address] documented as of this encounter Procedures Procedure Name Priority Date/Time Associated Diagnosis Comments COMMON PULMONARY FUNCTION TEST Routine 11/13/2013 4:13 PM EDT SOB (shortness of breath) documented in this encounter Results * Pulmonary Function Testing (11/13/2013 4:13 PM EDT) Narrative Randall Frazier MD - 11/13/2013 4:13 PM EDT Randall Frazier MD ? 11/13/2013 ??4:13 PM Forced vital capacity is decreased. FEV1 is decreased. The ratio is normal. There is no significant response to bronchodilators. Spirometry suggests restriction or air trapping. Suggest lung volume clinically indicated. Procedure Note Randall Frazier MD - 11/13/2013 4:13 PM EDT Forced vital capacity is decreased. FEV1 is decreased. The ratio isnormal. There is no significant response to bronchodilators. Spirometry suggests restriction or air trapping. Suggest lung volumeclinically indicated. Robin Dodge MD PFT ORDERABLES documented in this encounter Visit Diagnoses Diagnosis SOB (shortness of breath)- Primary Shortness of breath documented in this encounter Care Teams Parlor Maid Relationship Specialty Start Date End Date Unknown None PCP - General 11/09/13 11/15/13 documented as of this encounter
--- OUTSIDE RECORDS SUMMARY | 2024-04-06 02:31 | XMS_ITS | Encounter Summary ---
Author Organization [facility] Dem[place] [address] Care Team Providers Care Assistant Account Manager Name Role Phone Unknown Primary Care Provider Unavailabl e Reason for Visit * Reason Comments Referral Encounter Details Date Type Department Care Team (Late st Contact Info) Description 11/09/2013 10:00 AM EDT [place] [address] Robin Dodge MD [facility] [place] [address] Chronic cough; SOB (shortness of breath); Post-nasal drip Discharge Disposition: Home Social History [...] Sign Reading Time Taken Comments Blood Pressure 134/94 11/09/2013 9:46 AM EDT Pulse 104 11/09/2013 9:46 AM EDT Temperature - - Respiratory Rate 20 11/09/2013 9:46 AM EDT Oxygen Saturation 96% 11/09/2013 9:46 AM EDT Inhaled Oxygen Concentration - - Weight 94.3 kg (208 lb) 11/09/2013 9:46 AM EDT Height 182.9 cm (6') 11/09/2013 9:46 AM EDT Body Mass Index 28.21 11/09/2013 9:46 AM EDT documented in this encounter Patient Instructions * Patient Instructions* Lyn Wyman LPN - 11/09/2013 9:48 AM EDT I would like you to sign up for my[facility], which will give you secure online access to your electronic medical record at [facility] and the ability to communicate with your health care team whenand where it???s most convenient for you. With [facility] you will be able to: - look at parts of your medical record including test results and office notes - send and receive messages to/from me and your other providers - renew prescriptions - schedule appointments. To sign up, go to [email or web address] and click I have an activation code and follow the instructions. Here is your activation code: [email or web address] Expires: 12/24/2013 9:48 AM Remember, myD-H is NOT for urgent needs! Always dial 911 for medical emergencies. documented in this encounter Progress Notes * Robin Dodge MD - 11/09/2013 11:07 AM EDT PROBLEMS: Cough; exertional breathlessness. S: Mr. Ybarra is a 63-year-old male seen in consultation as requested by Kandy Espana APRN (Section of Rheumatology - [place], [place]). Mr. Ybarra is accompanied by a sister. Upon questioning, the patient reports that he has had a cough for approximately two to three years. The cough is mainly dry, but at times the patient may expectorate clear mucus. When queried, he reports that the cough appears to originate in the throat area and that he feels like there is something in my throat. The patient is not aware of post-nasal drip, but does acknowledge that he clears his throat frequently. He is currently using a Neti pot to rinse his nose with saline, and the color of the return fluid is usually clear. The patient also describes episodic hoarseness of the voice, and coughs more when lying supine. Upon questioning, he denies any seasonal allergic rhinitis symptoms. He contacted his primary care physician, who suggested he try Robitussin [id number]. The patient has used this medication without clinical benefit. In 08/2013, the patient had a cold characterized by coughing up green mucus, wheezing, and shortness of breath. He was treated with an antibiotic and was prescribed ProAir HFA MDI. The antibiotic provided resolution of the green sputum, but the patient denies any clinical benefit from using ProAir, which he uses at times up to two or three times per day. Since 08/2013, the patient has been aware of exertional breathlessness particularly when he carries firewood from the woodshed into his house for the wood burning stove. He also notes when he walks a half a mile which he does daily, he will experience some breathlessness. Prior to the cold, he did not experience any breathlessness. Upon questioning, the patient reports a dull ache in the left anterior chest, which he thinks may be related to a diagnosis of gastroesophageal reflux disease. He denies any chest tightness, but does sleep with the head of the bed elevated by about 15-degree angle because he has blocks underneath the head of the bed and uses a wedge. This elevation is for treatment of gastroesophageal reflux disease. The patient denies paroxysmal nocturnal dyspnea, hemoptysis, or lower extremity edema. In 08/2013, his primary care physician thought that Mr. Ybarra may have asthma as she prescribed albuterol HFA MDI. PAST MEDICAL PROBLEMS: Rheumatoid arthritis; osteopenia; hyperlipidemia; depression; hypertension; dryness of mouth and eyes. FAMILY HISTORY: Positive for asthma in a sister. SOCIAL HISTORY: The patient denies any past history of cigarette smoking, but he is exposed to second-hand smoke. The second-hand smoke makes him cough. 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 He denies any pets or animals. Denies inhalational exposures. REVIEW OF SYSTEMS: A complete review of systems was obtained. Positives are noted in history of present illness. All other review of systems are negative. The patient reports an 11-pound weight gain over the past several months associated with decreased physical activity. PHYSICAL EXAMINATION: Normocephalic. KENNA. Sclera - white. Nose: Mild congestion both nostrils. Pharynx: Benign. Neck: Supple without adenopathy. No JVD or thyroid enlargement. Lungs: Clear breath sounds bilaterally with no crackles or wheezes. Heart: Normal sinus rhythm with no murmur, gallop, or rub. Abdomen: Mild obesity, nontender. No organomegaly. Extremities: No cyanosis, clubbing, or edema. Skin: Warm. No rashes. Neurologic: Intact. I personally viewed the chest radiographs performed on 06/17/2013 at [facility]. Lungs are clear. Slight elevation of right hemidiaphragm. Heart size is normal. Pleural space appears normal. I personally viewed pulmonary function tests performed on 06/16/2013, at [facility]. Both FVC and FEV1 are decreased, while FEV1/FVC ratio is normal (77%). Single-breath diffusion capacity is 91% of predicted. I personally viewed flow-volume loop performed on 06/16/2013, which shows no evidence of upper airway obstruction. I personally viewed pulmonary function tests performed on 11/09/2013 at [facility]. FVC 3.6 liters (63% predicted); FEV1 2.40 liters (66% predicted); FEV1/FVC ratio = 78%. There was 5% improvement in both FVC and FEV1 after inhalation of nebulized albuterol. These test results suggest a restrictive ventilatory defect. No evidence of airflow obstruction. I personally viewed oxygen saturation value of 93% breathing room air at rest. A: 1. 63-year-old male with complaint of cough starting two to three years ago, originating in the throat area, associated with a sensation of something in the throat, and frequent throat clearing with change in quality of voice. These symptoms are consistent with post-nasal drip as cause of chronic cough. 2. Exertional breathlessness and respiratory tract infection in 08/2013 with positive family history for asthma. Most likely, the patient's exertional breathlessness and episodic wheezing, which occurs daily, are due to reactive airway disease/asthma. Today's pulmonary function testing does not demonstrate any airflow obstruction nor response to albuterol. 3. History of rheumatoid arthritis with no evidence of interstitial lung disease on chest radiographs from 06/2013. 4. Multiple other medical problems including rheumatoid arthritis, gastroesophageal reflux disease, hyperlipidemia, hypertension, and depression. P: 1. I reviewed this information in detail with Mr. Ybarra and his sister. 2. I explained that in my opinion his chronic cough is related to upper respiratory congestion with post-nasal drip. 3. Exertional breathlessness appears likely due to reactive airway disease/asthma as it began associated with a respiratory tract infection and has persisted. Moreover, the patient describes episodic wheezing. 4. Trial of Flonase one squirt each nostril b.i.d. for upper respiratory congestion. 5. The patient is to return on 11/16/2013, for methacholine challenge testing to evaluate for reactive airway disease. I gave Mr. Ybarra a pamphlet describing the test and need to avoid or introducing caffeine through the morning of the test. Mr. Ybarra agrees with these plans. documented in this encounter Plan of Treatment Upcoming Encounters Date Type Department Care Team (Late st Contact Info) Description 04/28/2024 12:00 PM EDT [place] [address] documented as of this encounter Results * [...] Dodge M.D. Robin Dodge MD PFT ORDERABLES * Pulmonary Function Testing (11/13/2013 4:13 PM [...] documented in this encounter Visit Diagnoses Diagnosis Chronic cough Cough SOB (shortness of breath) Shortness of breath Post-nasal drip Postnasal drip SOB (shortness of breath)- Primary Shortness of breath SOB (shortness of breath)- Primary Shortness of breath documented in this encounter Care Teams Assistant Account Manager Relationship Specialty Start Date End Date Unknown None PCP - General 11/09/13 11/15/13 documented as of this encounter
--- OUTSIDE RECORDS SUMMARY | 2024-04-06 02:31 | XMS_ITS | Encounter Summary ---
Author Organization [facility] [place] [address] Care Team Providers Care Risk And Compliance Analytics Director Name Role Phone Arelis Michele MD Primary Care Provider [phone] Encounter Details Date Type Department Care Team (Late st Contact Info) Description 12/24/2013 12:00 PM EDT Follow-[place] [address] Kandy Espana, RN [facility] [place] [address] Rheumatoid arthritis(714.0) (Primary Dx); High risk medication use; Elevated blood pressure; Situational stress; Pain in left shoulder; Bursitis of shoulder, left Discharge Disposition: Home Social History Tobacco Use [...] Sign Reading Time Taken Comments Blood Pressure 151/91 12/24/2013 11:36 AM EDT Pulse 91 12/24/2013 11:36 AM EDT Temperature 36.2 ??C (97.2 ??F) 12/24/2013 11:36 AM E DT Respiratory Rate - - Oxygen Saturation 98% 12/24/2013 11:36 AM EDT Inhaled Oxygen Concentration - - Weight 101.2 kg (223 lb) 12/24/2013 11:36 AM EDT Height 182.9 cm (6') 12/24/2013 11:36 AM EDT Body Mass Index 30.24 12/24/2013 11:36 AM EDT documented in this encounter Progress Notes * Kandy Espana, GATE MORTISER OPERATOR - 12/24/2013 12:01 PM EDT Established Patient Follow Up - [...] office visit: Updates in BOLD italics. ?? PULM appointment -> notes pending. See below. ?? Follow up scheduled 11/16/2013 -> methacholine challenge test. No RAD per pt/PULM note. ?? HOLD enbrel. Ongoing HOLD. ?? Continue MTX 10 mg po weekly, if no nausea or GI upset. Taking MTX 15 mg po q week. Ongoing FA. ?? Indications for holding methotrexate reviewed. Reviewed. ?? Continue medrol 4 mg po daily. Ongoing 4 mg medrol daily. Increased to 12 mg x last 3 days. Has helped joints a lot. ?? Continue treatments for dry mouth and blepharitis. Ongoing. ?? OPHTH referral. Needs to reschedule. ?? Continue acetaminophen 1000 mg po QAM, prn. Daily 1000 mg 2-3 times daily. Little benefit - understands NSAID may be too hard on stomach. ?? Ongoing osteoporosis prevention strategies, dietary intake, supplementation with vitamin D (no calcium due to kidney stones), ongoing weightbearing activity and exercise. Ongoing. ?? Annual influenza vaccine recommended. Ongoing recommendation. ?? Ongoing HTN management -> PCP office. Last office visit -> September 2013. Increased pain and stiffness, now swelling in hands and wrists, shoulders x 10 days. No cold symptoms since August. Significant situational stress associated with ongoing family expectations associated with niece's partner and father of children who is felkevin living in pt home. Patient family discord -> pt advised partner to leave on SAT - reports multiple conflicts, use of elicit drugs, harsh treatment of children. Reports brother involved and supportive. Not feeling at risk. Thinks solution will be to sell property to niece's mother (sister) and move permanently [place]. When last seen, reported still using (+) [...] or warmth. MCPs and PIPs - thickened; (+) swelling at scattered PIPs; (+) tender. CMC thickening; no swelling. Makes a near complete fist and claw. Hip ROM functional; arises seated to standing independently. Bilateral knees - no effusion, erythema, or warmth. ROM functional; (+) tender with extension. Bilateral ankle ROM functional, decreased ininversion/eversion (-) tender; no swelling. MTPs tender to compression. Skin: Intact without rash, telangiectasias, + nail dystrophy. ASSESSMENT: Rheumatoid arthritis, blepharitis; sicca symptoms; joint swelling/pain; situational stress; drug safety monitoring. PLAN: Immediately prior to the start of the procedure, I confirmed the patient's identity, intended procedure, including site/side, the correct patient positioning, site marked, and the availability of special equipment. Procedure Note: Site Left shoulder subacromial After informed verbal consent obtained, the area was prepped with an iodine solution. Ethyl chloride was applied as a topical anesthetic. 0.75% marcaine (2 cc) and Depomedrol 40 mg were injected intosite without complication. The patient was advised of potential adverse reactions including infection, hyperglycemia, and skinatrophy. The patient was advised to call the clinic immediately for fever, chills, sweats, or increased redness, warmth, pain or swelling over the injection site. Reviewed PULM notes (attached). Continue medrol 8 mg po QAM. Plan Rituxan therapy -> scheduled. Quantiferon Gold pending. Labs from October 2013 reviewed. Reviewed support strategies for situational stress (family/community).. ?? HOLD enbrel. ?? Continue MTX 10 mg po weekly, if no nausea or GI upset. ?? Indications for holding methotrexate reviewed. ?? Continue folic acid 2 mg po daily. ?? Continue treatments for dry mouth and blepharitis. ?? OPHTH referral - follow up appointment to be scheduled. ?? Continue acetaminophen 1000 mg po QAM, prn. ?? Ongoing osteoporosis prevention strategies, dietary intake, supplementation with vitamin D (no calcium due to kidney stones), ongoing weightbearing activity and exercise. ?? Annual influenza vaccine recommended. ?? Ongoing HTN management -> PCP office. Addendum: PULM plan -> No response to medrol x 7 days - plan is to follow up with PCP. 1. 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 [...] routine medical care. documented in this encounter Procedure Notes * Provider, Scanning - 02/12/2014 11:07 AM EDTAssociated Order(s): SCAN DOC: ORDS - PROVIDER CARE documented in this encounter Plan of Treatment Upcoming Encounters Date Type Department Care Team (Late st Contact Info) Description 04/28/2024 12:00 PM EDT Appointment [place] [id number] documented as of this encounter Procedures Procedure Name Priority Date/Time Associated Diagnosis Comments ORDS - PROVIDER CARE SCAN 08/06/2014 12:00 AM EST ORDS - PROVIDER CARE SCAN 02/12/2014 11:07 AM EDT QUANTIFERON-TB GOLD Routine 12/24/2013 1 2:54 PM EDT High risk medication use documented in this encounter Results * SCAN DOC: ORDS - PROVIDER CARE (08/06/2014 12:00 AM EST) Scanning Provider MEDIA MGR SCAN EXT O RDR/RSLT * SCAN DOC: ORDS - PROVIDER CARE (02/12/2014 11:07 AM EDT) Narrative 02/12/2014 11:07 AM EDT Procedure Note Provider, Scanning - 02/12/2014 11:07 AM EDT Scanning Provider MEDIA MGR SCAN EXT O RDR/RSLT * QuantiFERON-TB Gold (12/24/2013 12:54 PM EDT) Quantiferon-TB Gold Negative Negative [facility] Comment: Nil (IU/mL)= 0.15 TB Ag minus Nil (IU/mL)= -0.11 Mitogen minus Nil (IU/mL)= >10 M. tuberculosis (TB) infection NOT likely ?A negative specimen should have a TB Ag minus Nil value less than 0.35 IU/mL OR a TB Ag minus Nil greater than or equal to 0.35 IU/mL and in addition the TB Ag minus Nil value must be less than 25% of the Nil value. A negative specimen should have a Mitogen minus Nil value greater than or equal to 0.5 IU/mL. ?A negative QuantiFERON-TB Gold IT result does not preclude the possibility of M. tuberculosis infection or tuberculosis disease: false negative results can be due to stage of infection (e.g., specimen obtained prior to the development of cellular immune response), co-morbid conditions which affect immune function, or other individual immunological factors. ?The performance of the QuantiFERON-TB Gold IT test has not been extensively evaluated with specimens from the following groups of individuals: ?1. Individuals who have impaired or altered immune function such as those who have HIV infection or AIDS, those who have transplantation managed with immunosuppressive treatment or others who receive immunosuppressive drugs (e.g., corticosteroids, methotrexate, azathioprine, cancer chemotherapy), and those who have other clinical conditions: diabetes, silicosis, chronic renal failure, hematological disorders (e.g., leukemia and lymphomas), and other specific malignancies (e.g., carcinoma of the head or neck and lung). ?2. Individuals younger than age 17 years. ?3. women. Note: Diagnosing or excluding tuberculosis disease, and assessing the probability of LTBI, require a combination of epidemiological, historical, medical, and diagnostic findings that should be taken into account when interpreting QuantiFERON-TB Gold results. Reference (http://www.cdc.gov/nchstp/tb/) Blood specimen (specimen) 12/24/2013 12:54 PM EDT 12/25/2013 8:04 AM EDT Narrative Resulting Agency Comment Spec In Lab Austin Shelton II, DO CHEMISTRY ROMEO SOLORZANO Performing Organization Address City/State/ZIP Co la Phone Number [facility] documented in this encounter Visit Diagnoses Diagnosis Rheumatoid arthritis(714.0)- Primary Rheumatoid arthritis High risk medication use Encounter for long-term (current) use of other medications Elevated blood pressure Elevated blood pressure reading without diagnosis of hypertension Situational stress Other psychological or physical stress, not elsewhere classified Pain in left shoulder Pain in joint, shoulder region Bursitis of shoulder, left Disorders of bursae and tendons in shoulder region, unspecified documented in this encounter Care Teams Risk And Compliance Analytics Director Relationship Specialty Start Date End Date Arelis Michele MD [address] [place] [address] PCP - General 11/16/13 06/10/18 documented as of this encounter
--- OUTSIDE RECORDS SUMMARY | 2024-04-06 02:31 | XMS_ITS | Encounter Summary ---
Author Organization [facility] [place] [address] Care Team Providers Care Tube Mill Operator Name Role Phone Arelis Michele MD Primary Care Provider [phone] Reason for Visit * Reason Comments IV Medication Encounter Details Date Type Department Care Team (Latest Contact Info) Description 01/14/2014 10:00 AM EDT - 01/14/2014 11:59 PM EDT Hospital En[place] [phone] CLINIC, Kalen Ramos MD [facility] [address] [place] [address] RA (rheumatoid arthritis) Discharge Disposition: Home Social [...] Sign Reading Time Taken Comments Blood Pressure 136/82 01/14/2014 10:18 AM EDT Pulse 94 01/14/2014 10:18 AM EDT Temperature 36.4 ??C (97.5 ??F) 01/14/2014 10:18 AM E DT Respiratory Rate 16 01/14/2014 10:18 AM EDT Oxygen Saturation 98% 01/14/2014 10:18 AM EDT Inhaled Oxygen Concentration - - [...] as of this encounter Progress Notes * Siobhan Hess RN - 01/14/2014 10:42 AM EDT Patient Name: Wesly Ybarra Patient Age: 63 y.o. Birthdate: 1950 Admit date: 01/14/2014 Attending Physician: Janell, Dr Swapna MD INFUSION THERAPY ADMINISTRATION NOTES DIAGNOSIS: The encounter diagnosis was RA (rheumatoid arthritis). REASON FOR VISIT: Rituxan day # 1 SUBJECTIVE: I can't even take a walk anymore. I hope this works. OBJECTIVE: VITALS: There were no vitals taken for this visit. IF PAIN >5, INTERVENTION AND EFFECTIVENESS: na IV ACCESS: Peripheral IV - Single Lumen 01/14/14 1030 metacarpal vein (top of hand), right 24 gauge;3/4 in length (Active) HYDRATION, RATE, START TIME, STOP TIME NS @ KVO 1030. Off with infusion ANTIEMETICS/PREMEDS, DOSE, ROUTE, START TIME, STOP TIME Methylprednisolone 100 mg IV @ 1030 to 1045 Benadryl 25 mg IV@ 1045 to 1100 Patient identification and orders checked against actual dose given at bedside by Siobhan Hess RN TREATMENT/BLOOD/OTHER, DOSE, ROUTE, START TIME, STOP TIME ??? riTUXimab (RITUXAN) infusion 1,000 mg Intravenous Once First time infusion schedule REACTIONS (DESCRIPTION, TIME, INTERVENTION AND EFFECTIVENESS) None. ASSESSMENT: Tolerated infusion well. PLAN: Return to clinic in 5-29 weeks on 2 weeks Follow up per rheumatology clinic. documented in this encounter Plan of Treatment Upcoming Encounters Date Type Department Care Team (Late st Contact Info) Description 04/28/2024 12:00 PM EDT [place]ointment [place] [phone] documented as of this encounter Visit Diagnoses Diagnosis RA (rheumatoid arthritis) Rheumatoid arthritis documented in this encounter Administered Medications Inactive Administered Medications - up to 3 most recent administrations Medication Order MAR Action Action Date Dose Rate Site riTUXimab (RITUXAN) 1,000 mg in sodium chloride 0.9% 500 mL infusion 1,000 mg, Intravenous, ONCE, 1 dose, On Kanwal 01/14/14 at 1030 New Bag 01/14/2014 11:15 AM EDT 1,000 mg documented in this encounter Care Teams Tube Mill Operator Relationship Specialty Start Date End Date Arelis Michele MD [address] [place] [address] PCP - General 11/16/13 06/10/18 documented as of this encounter
--- OUTSIDE RECORDS SUMMARY | 2024-04-06 02:31 | XMS_ITS | Encounter Summary ---
Author Organization [facility] [place] [address] Care Team Providers Care Organizational Psychologist Name Role Phone Arelis Michele MD Primary Care Provider [phone] Encounter Details Date Type Department Care Team (Late st Contact Info) Description 10/19/2014 10:45 AM EST Follow[place] [address] Kandy Espaan, RN [facility] [place] [address] Rheumatoid arthritis(248.0); High risk medication use; Encounter for long-term (current) use of other medications; Depression Discharge Disposition: Home Social History Tobacco Use [...] Sign Reading Time Taken Comments Blood Pressure 130/77 10/19/2014 10:51 AM EST Pulse 79 10/19/2014 10:51 AM EST Temperature 36.4 ??C (97.6 ??F) 10/19/2014 10:[address] Respiratory Rate - - Oxygen Saturation 99% 10/19/2014 10:51 AM EST Inhaled Oxygen Concentration - - Weight 99.3 kg (219 lb) 10/19/2014 10:51 AM EST Height 182.9 cm (6') 10/19/2014 10:51 AM EST Body Mass Index 29.7 10/19/2014 10:51 AM EST documented in this encounter Patient Instructions * Patient Instructions* Kandy Espana, POURER OFF - 10/19/2014 7:05 AM EST Images from the original note were not included. [facility] Rheumatoid Arthritis: After Your Visit Your Care Instructions Arthritis is a common health problem in which the joints are inflamed. There are many types of arthritis. In rheumatoid arthritis, the body's own immune system attacks the joints. This causes pain, stiffness, and swelling in the joints, especially in the hands and feet. It can become hard to open jars, write, and do other daily tasks. Sometimes rheumatoid arthritis can also cause bumps to form under the skin. Over time, rheumatoid arthritis can damage and deform joints. Early treatment with medicines may reduce your chances of having a lasting disability. Follow-up care is a rm part of your treatment and safety. Be sure to make and go to all appointments, and call your doctor if you are having problems. It???s also a good idea to know your test results and keep a list of the medicines you take. How can you care for yourself at home? 1. If your doctor recommends it, get more exercise. Walking is a good choice. If your knees or ankles hurt, try riding a stationary bike or swimming. 2. Move each joint gently through its full range of motion once or twice a day. 3. Rest joints when they are sore or overworked. Short rest breaks may help more than staying in bed. 4. Reach and stay at a healthy weight. Regular exercise and a healthy diet will help you do this. Extra weight can strain the joints, especially the knees and hips, and make the pain worse. Losing even a few pounds may help. 5. Get enough calcium and vitamin D to help prevent osteoporosis, which causes thin bones. Talk to your doctor about how much you should take. 6. Protect your joints from injury. Do not overuse them. Try to limit or avoid activities that cause joint pain or swelling. Use special kitchen tools and other self-help devices as well as walkers, splints, or canes if needed. 7. Use heat to ease pain. Take warm showers or baths. Use hot packs or a heating pad set on low. Sleep under a warm electric blanket. 8. Put ice or a cold pack on the area for 10 to 20 minutes at a time. Put a thin cloth between the ice and your skin. 9. Take pain medicines exactly as directed. 1. If the doctor gave you a prescription medicine for pain, take it as prescribed. 2. If you are not taking a prescription pain medicine, ask your doctor if you can take an [id number] medicine. 10. Take an active role in managing your condition. Set up a treatment plan with your doctor, and learn as much as you can about rheumatoid arthritis. This will help you control pain and stay active. When should you call for help? Call your doctor now or seek immediate medical care if: 1. You have a fever or a rash along with joint pain. 2. You have joint pain that is so severe that you cannot use the joint at all. 3. You have sudden swelling, redness, or pain in one or more joints, and you do not know why. 4. You have back or neck pain along with weakness in your arms or legs. 5. You have a loss of bowel or bladder control. Watch closely for changes in your health, and be sure to contact your doctor if: ?? You have joint pain that lasts for more than 6 weeks. ?? You have side effects from your arthritis medicines, such as stomach pain, nausea, heartburn, ordark and tarlike stools. Where can you learn more? Visit our health information library at [email or web address] You can also view health information on [employer], your personal patient account. Log in or sign up today. Enter K205 in the search box to learn more about Rheumatoid Arthritis: After Your Visit. ?? [id number] [email or web address]. Care instructions adapted under license by [facility]. This care instruction is for use with your licensed healthcare professional. If you have questions about a medical condition or this instruction, always ask your healthcare professional. [email or web address] disclaims any warranty or liability for your use of this information. Content Version: 10.3.246230; Current as of: May 11, 2014 ?? Reviewed pt concerns, including list and discussed Rheumatology medications, observed efficacy and absence of inflammatory signs. ?? Reviewed absence of recurrent infection at this time, pt records and modifiable factors associated with heart health (being active, working with PCP related to HTN management, CHOL, sleep hygiene,lifestyle and PT involvement, possible use of equipment at home to increase activity). ?? Acknowledged pt commitment to improved well-being thorugh with participation in PT and phone contact health assessment. ?? Continue treatments for dry moutngh and blepharitis. ?? Continue acetaminophen 1000 mg po QAM, prn - discussed indications - OA and cold weather.. ?? Ongoing osteoporosis prevention strategies, dietary intake, supplementation with vitamin D (no calcium due to kidney stones), ongoing weightbearing activity and exercise. ?? Annual influenza vaccine recommended. ?? Ongoing contact/follow up ARELIS MICHELE MD and Cardiology. ?? Follow up in 8-10 weeks, sooner for concerns, questions or increased signs/symptoms. documented in this encounter Progress Notes * Kandy Espana APRN - 10/19/2014 7:05 AM EST Established Patient Follow Up - Rheumatology Clinic Wesly Ybarra is a 64 y.o.male seen for ongoing evaluation and management of rheumatoid arthritis. He is unaccompanied. Last seen 08/2014. Patient Active Problem List Diagnosis Code ??? RA (rheumatoid arthritis) 714.0 ??? Osteopenia 733.90 ??? GERD (gastroesophageal reflux disease) 530.81 ??? Hyperlipidemia 272.4 ??? Depression 311 ??? HTN (hypertension) 401.9 ??? Burning sensation in eye 379.99 ??? Chronic cough 786.2 ??? SOB (shortness of breath) 786.05 ??? Post-nasal drip 784.91 ??? Cardiomyopathy 425.4 INTERVAL HISTORY: Reports no joint swelling, sustained AM joint stiffness or pain in peripheral joints. Last Rituxan infusions 08/17 and 09/01/2014. (Course #2). Reports decrease in methotrexate (perCardiology) to 2.5 mg po weekly and ongoing folic acid 3 mg po daily. Taking medrol 4 mg po daily with food. Rare acetaminophen. Reports seen by ARELIS MICHELE MD in September. Referred to PT for deconditioning -> 2 session/week. Continues treatment for dry mouth and dry eyes (evoxac and moisturizing eye drops with benefit). Not sure when last blood work completed. States advised by sister to present list of concerns and symptoms and diagnoses today to review anddiscuss. Reports greatest concern is being less active, concerned about cardiac diagnosis (decreased EF), history of recurrent sinusitis, nasal congestion, cough, depression, anxiousness and poor sleep. Seen in PULM at [facility] in past [...] trouble getting to sleep after work hours. Will see ARELIS MICHELE MD in December and plans to discuss sleep. Generally able to fall asleep but early AM awakening. Appetite good. Weight reported as stable. No recurrent sinus infection since ABX last year. Using sierra pot and sometimes flonase. No sinus pressure, sometimes headache but thinks related to tension. No discolored nasal discharge or mucous expectorant. Heats with wood; house is dry. Cough is dry. No added humidity. Reports living with brother, has own room and TV. Home previously occupied, now occupied by youngest sister's daughter, significant other and children. Two other sisters, one with new diagnosis of dementia (like mother). Reports is being contacted daily [...] Refill ??? gabapentin (NEURONTIN) 300 mg Capsule Not using ??? clopidogrel (PLAVIX) 75 mg [...] Calcium kidney stones PHYSICAL EXAMINATION: Filed Vitals: 10/19/14 1051 BP: 130/77 Pulse: 79 Temp: 36.4 ??C (97.6 ??F) TempSrc: Oral Height: 182.9 cm (6') Weight: 99.338 kg (219 lb) SpO2: 99% Constitutional: Pleasant adult male, [...] anxiety; impaired sleep; sicca symptoms. PLAN: ?? Reviewed pt concerns, including list and discussed Rheumatology medications, observed efficacy and absence of inflammatory signs. ?? Reviewed absence of recurrent infection at this time, pt records and modifiable factors associated with heart health (being active, working with PCP related to HTN management, CHOL, sleep hygiene,lifestyle and PT involvement, possible use of equipment at home to increase activity). ?? Acknowledged pt commitment to improved well-being thorugh with participation in PT and phone contact health assessment. ?? Continue treatments for dry moutngh and blepharitis. ?? Continue acetaminophen 1000 mg po QAM, prn - discussed indications - OA and cold weather.. ?? Ongoing osteoporosis prevention strategies, dietary intake, supplementation with vitamin D (no calcium due to kidney stones), ongoing weightbearing activity and exercise. ?? Annual influenza vaccine recommended. ?? Ongoing contact/follow up ARELIS MICHELE MD and Cardiology. ?? Follow up in 8-10 weeks, sooner for concerns, questions or increased signs/symptoms. Greater than 30 minutes of this 45 minute office visit was spent in [id number] counseling and education as described above. ?? documented in this encounter Plan of Treatment Upcoming Encounters Date Type Department Care Team (Late st Contact Info) Description 04/28/2024 12:00 PM EDT Appointment [place] [phone] documented as of this encounter Visit Diagnoses Diagnosis Rheumatoid arthritis(714.0) Rheumatoid arthritis High risk medication use Encounter for long-term (current) use of other medications Encounter for long-term (current) use of other medications Depression Depressive disorder, not elsewhere classified documented in this encounter Care Teams Organizational Psychologist Relationship Specialty Start Date End Date Arelis Michele MD [address] [place] [address] PCP - General 11/16/13 06/10/18 documented as of this encounter
--- OUTSIDE RECORDS SUMMARY | 2024-04-06 02:31 | XMS_ITS | Encounter Summary ---
Author Organization [facility] [place] [address] Care Team Providers Care Windows Mobile Developer Name Role Phone Arelis Michele MD Primary Care Provider Reason for Visit * Reason Comments Rheumatoid Arthritis Encounter Details Date Type Department Care Team (Late st Contact Info) Description 05/18/2014 12:45 PM EDT Follow-[place] [address] Kandy Espana, RN [facility] [place] [address] Rheumatoid arthritis(714.0) (Primary Dx); High risk medication use; Encounter for long-term (current) use of other medications; Cardiomyopathy Discharge Disposition: Home Social History Tobacco Use [...] Sign Reading Time Taken Comments Blood Pressure 141/86 05/18/2014 12:59 PM EDT Pulse 97 05/18/2014 12:59 PM EDT Temperature 36.6 ??C (97.8 ??F) 05/18/2014 12:59 PM E DT Respiratory Rate - - Oxygen Saturation 97% 05/18/2014 12:59 PM EDT Inhaled Oxygen Concentration - - Weight 97.5 kg (215 lb) 05/18/2014 12:59 PM EDT Height 182.9 cm (6') 05/18/2014 12:59 PM EDT Body Mass Index 29.16 05/18/2014 12:59 PM EDT documented in this encounter Patient Instructions * Patient Instructions* Kandy Espana APRN - 05/18/2014 1:49 PM EDT ?? Requests recent labs from PCP. ?? Continue MTX 7.5 mg po weekly and folic acid 2 mg po daily x 2-3 weeks, if no improvement in joint swelling, contact office -> written instructions provided Steroid - per PULM. Continue Rituxan therapy -> Course #1/infusion # 2 today -> next infusion in early August 2014. ?? Periodic medication safety monitoring. ?? Indications [...] MD and Cardiology. ?? Follow up in 2013, linked ot Rituxan, sooner for concerns, questions or increased signs/symptoms. documented in this encounter Progress Notes * Kandy Espana APRN - 05/18/2014 12:28 PM EDT Established Patient Follow Up - [...] drip 784.91 ??? Cardiomyopathy 425.4 INTERVAL HISTORY: Plan at time of last office visit: Updates in BOLD italics. PLAN: Resume MTX 7.5 mg po weekly and folic acid 2 mg po daily x 2-3 weeks, if no improvement in joint swelling, contact office -> written instructions provided. Joints seem pretty good. Rituxan infusion (course 1) completed in December, Do not resume steroid. Resumed medrol 12 mg in early April - per PULM. Tapering and current dose 8mg, with ongoing taper. Follow PULM in August. Continue Rituxan therapy -> Course #1/infusion # 2 today. Noted. Reviewed scanned Documents - cardiology and cardiac catheterization report. Noted. ?? Periodic medication safety monitoring. Bloodwork completed -> PULM ?? Indications for holding methotrexate reviewed. Noted. ?? Continue treatments for dry mouth and blepharitis. (+) moisturizing drops; evoxac with benefit. ?? Continue acetaminophen 1000 mg po QAM, prn. Not routinely using. Feeling pretty good. Starting to cut wood. ?? Ongoing osteoporosis prevention strategies, dietary intake, supplementation with vitamin D (no calcium due to kidney stones), ongoing weightbearing activity and exercise. Ongoing vitamin D. ?? Annual influenza vaccine recommended. Plans to receive at local site. ?? UTD with immunizations ?? Ongoing contact/follow up ARELIS MICHELE MD and Cardiology. CT scan on left lung - question oftumor/gallardo area. Seen by PULM. Records to be forwarded to Cardiology - planned follow up 05/24/2014. Last seen in Cardiology in mid- April. Understands heart has decreased pumping action. Uncertain cause. (+) cardiomyopathy. Taking ASA 81 mg and metoprolol. Last seen by PCP in March. Follow up planned 05/20/2014 - seen about every three months. Misses be able to be at camp. 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 Reports no limitations in self-care or diversional activities, but avoids strenuous activity awaiting more info from Cardiology/PULM. Reports no fever, chills, visual changes, oral ulcers, + dry mouth, painful or difficult swallowing, diarrhea or skin rash. Appetite good and weight stable. No recurrent illness or infection. Denies other changes in medical, surgical or social history. Current Outpatient Prescriptions on File Prior to Visit Medication Sig Dispense Refill ??? clopidogrel (PLAVIX) 75 mg tablet Take [...] Calcium kidney stones PHYSICAL EXAMINATION: Filed Vitals: 05/18/14 1259 BP: 141/86 Pulse: 97 Temp: 36.6 ??C (97.8 ??F) TempSrc: Oral Height: 182.9 cm (6') Weight: 97.523 kg (215 lb) SpO2: 97% Constitutional: Pleasant adult male, [...] surface nodules, or effusion. Wrist ROM functional and(-) tender; no erythema or warmth. MCPs/PIPs/DIPs: (-) swelling; (+) CMC thickening. Makes a near complete fist and claw. Hip ROM functional; arises seated to standing independently. Bilateral knees - no effusion, erythema, or warmth. ROM functional; (-) tender. Bilateral ankle ROM functional, decreased in inversion/eversion (-) tender; no swelling. MTPs tender to compression. Skin: Intact without rash, telangiectasias, + nail dystrophy. ASSESSMENT: Rheumatoid arthritis; joint swelling; medication interruption; sicca symptoms; drug safety monitoring. PLAN: ?? Requests recent labs from PCP. ?? Continue MTX 7.5 mg po weekly and folic acid 2 mg po daily x 2-3 weeks, if no improvement in joint swelling, contact office -> written instructions provided Steroid - per PULM. Continue Rituxan therapy -> Course #1/infusion # 2 today -> next infusion in early August 2014. ?? Periodic medication safety monitoring. ?? Indications [...] MD and Cardiology. ?? Follow up in 2013, linked ot Rituxan, sooner for concerns, questions or increased signs/symptoms. Addendum: Received and reviewed office notes (DOS 03/25/2014) [facility] -> undergoing workup Cardiology and PULM documented in this encounter Plan of Treatment Upcoming Encounters Date Type Department Care Team (Late st Contact Info) Description 04/28/2024 12:00 PM EDT Appointment [place] [address] documented as of this encounter Visit Diagnoses Diagnosis Rheumatoid arthritis(714.0)- Primary Rheumatoid arthritis High risk medication use Encounter for long-term (current) use of other medications Encounter for long-term (current) use of other medications Cardiomyopathy Other primary cardiomyopathies documented in this encounter Care Teams Windows Mobile Developer Relationship Specialty Start Date End Date Arelis Michele MD [address] [place] [address] PCP - General 11/16/13 06/10/18 documented as of this encounter
--- OUTSIDE RECORDS SUMMARY | 2024-04-06 02:31 | XMS_ITS | Encounter Summary ---
Author Organization [facility] [place] [address] Care Team Providers Care Motorized Squad Sergeant Name Role Phone Arelis Michele MD Primary Care Provider [phone] Encounter Details Date Type Department Care Team (Late Contact Info) Description 12/15/2014 Orders [place] [id number] Kandy Espana, RN [facility] [place] [address] Social History Tobacco Use Types Packs/Day Years [...] 12:00 PM EDT Appointment [place] [id number] documented as of this encounter Visit Diagnoses Not on filedocumented in this encounter Care Teams Motorized Squad Sergeant Relationship Specialty Start Date End Date Arelis Michele MD [address] [place], [place] [address] PCP - General 11/16/13 06/10/18 documented as of this encounter
--- OUTSIDE RECORDS SUMMARY | 2024-04-06 02:31 | XMS_ITS | Encounter Summary ---
[place] [address] Care Team Providers Care Laborer Ammunition Assembly Name Role Phone Arelis Michele MD Primary Care Provider [phone] Encounter Details Date Type Department Care Team (Latest Contact Info) Description 12/17/2014 12:01 PM EDT - 12/17/2014 11:59 PM EDT Hospital [place] [address] CLINIC, DR LJ Cannon, Serina Montelongo MD [facility] [place] [address] Rheumatoid arthritis(034.0); High risk medication use; Encounter for long-term (current) use of other medications; Neck mass Discharge Disposition: Home Social History Tobacco Use [...] hours as needed. Use with spacer 12/08/2021 methotrexate 2.5 mg tablet Take 6 tablets [...] 12:00 PM EDT Appointment [place] [address] documented as of this encounter Procedures Procedure Name Priority Date/Time Associated Diagnosis Comments CT NECK SOFT TISSUE W CONTRAST Routine 12/17/2014 12:20 PM EDT Rheumatoid arthritis(714.0) High risk medication [...] glands,nonspecific. Serina Cannon MD IMG CT ORDERABLES documented in this encounter Visit Diagnoses Diagnosis Rheumatoid arthritis(714.0) Rheumatoid arthritis High risk medication use Encounter for long-term (current) use of other medications Encounter for long-term (current) use of other medications Neck mass Swelling, mass, or lump in head and neck documented in this encounter Administered Medications Inactive Administered Medications - up to 3 most recent administrations Medication Order MAR Action Action Date Dose Rate Site iohexol (OMNIPAQUE) 350 mg/mL solution 38,500 mg 38,500 mg (110 mL), Intravenous, ONCE PRN, 1 dose, Starting on Sat12/17/14 at 1206, Until Sat12/17/14 at 1215, Per Protocol, Routine Given 12/17/2014 12:15 PM EDT 38,500 mg documented in this encounter Care Teams Laborer Ammunition Assembly Relationship Specialty Start Date End Date Arelis Michele MD [address] [place] [address] PCP - General 11/16/13 06/10/18 documented as of this encounter
--- OUTSIDE RECORDS SUMMARY | 2024-04-06 02:31 | XMS_ITS | Encounter Summary ---
Author Organization [facility] [place] [address] Care Team Providers Care Lead Recoverer Name Role Phone Arelis Michele MD Primary Care Provider [phone] Encounter Details Date Type Department Care Team (Late st Contact Info) Description 08/17/2014 10:45 AM EST Follow-[place] [address] Kandy Espana, RN [facility] [place] [address] Rheumatoid arthritis(324.0); High risk medication use; Encounter for long-term (current) use of other medications; Sicca; Breathlessness on exertion Discharge Disposition: Home Social History Tobacco Use [...] Patient Instructions * Patient Instructions* Kandy Espana, PARTNER MARKETING MANAGER - 08/18/2014 10:34 AM EST ?? Rituxan infusion course # 2 (infusion #2) in 15 days. ?? Continue MTX 7.5 mg po weekly and folic acid 2 mg po daily. ?? Will request records from PCP -[facility] Cardiology/PULM/labs. ?? Periodic medication safety monitoring at infusion date. ?? Indications for holding methotrexate reviewed. ?? Continue treatments for dry mouth and blepharitis. ?? Continue acetaminophen 1000 mg po QAM, prn. ?? Ongoing osteoporosis prevention strategies, dietary intake, supplementation with vitamin D (no calcium due to kidney stones), ongoing weightbearing activity and exercise. ?? Annual influenza vaccine recommended. ?? Immunization records to be requested. ?? Ongoing contact/follow up ARELIS MICHELE MD and Cardiology. ?? Follow up in 5-6 weeks, sooner for concerns, questions or increased signs/symptoms. documented in this encounter Progress Notes * Kandy Espana APRN - 08/17/2014 11:37 AM EST Established Patient Follow Up - Rheumatology Clinic Wesly Ybarra is a 63 y.o.male seen for ongoing evaluation and management of rheumatoid arthritis. He is unaccompanied and seen in the Infusion suite today. Patient Active Problem List Diagnosis Code ??? RA (rheumatoid arthritis) 714.0 ??? Osteopenia 733.90 ??? GERD (gastroesophageal reflux disease) 530.81 ??? Hyperlipidemia 272.4 ??? Depression 311 ??? HTN (hypertension) 401.9 ??? Burning sensation in eye 379.99 ??? Chronic cough 786.2 ??? SOB (shortness of breath) 786.05 ??? Post-nasal drip 784.91 ??? Cardiomyopathy 425.4 INTERVAL HISTORY: 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 MTX 7.5 mg po weekly and folic acid 2 mg po daily, without adverse effect or interruption. Continues steroid (prednisone 2 mg po daily), tapering after PULM encounter in 10/2013 (notes in e[facility] - chronic cough ? Eosinophilic bronchitis/no evidence of RAD or ILD). Reports some hand stiffness in weeks preceding today's Rituxan infusion (course # 2 , infusion 1), but no limitations in self-care activities. Continues treatment for dry mouth and dry eyes (evoxac and moisturizing eye drops with benefit). Not sure when last blood work completed. Following last OV, requested and reviewed office notes (DOS 03/25/2014) [facility] -> undergoing workup Cardiology and PULM Reports no limitations in diversional activities, but continues to avoid strenuous activity due to persistent breathlessness and ongoing evaluation by Cardiology. Reports no fever, chills, visual changes, oral [...] 30 mg capsule 30 mg, PO, QHS Current Facility-Administered Medications on File Prior to Visit Medication Dose Route Frequency Provider Last Rate Last Dose ??? [COMPLETED] riTUXimab (RITUXAN) 1,000 mg in sodium chloride 0.9% 500 mL infusion 1,000 mg Intravenous Once Kandy Espnaa, PARTNER MARKETING MANAGER 1,000 mg at 08/17/14 1100 Allergies Allergen Reactions ??? Calcium kidney stones (-) PHYSICAL EXAMINATION: Constitutional: Pleasant adult male, in no acute distress. HEENT: Normocephalic, atraumatic. Eyes -sclera clear. Oral mucous membranes moist and intact. Musculoskeletal: Muscle mass bilaterally symmetric. Joint Exam: Neck ROM functional, (-)tender. Bilateral shoulder AROM functional, (-) tender. Elbow [...] Rheumatoid arthritis; joint swelling; medication interruption; sicca symptoms. PLAN: ?? Rituxan infusion course # 2 (infusion #2) in 15 days. ?? Continue MTX 7.5 mg po weekly and folic acid 2 mg po daily. ?? Will request records from PCP -[facility] Cardiology/PULM/labs. ?? Periodic medication safety monitoring at infusion date. ?? Indications for holding methotrexate reviewed. ?? Continue treatments for dry mouth and blepharitis. ?? Continue acetaminophen 1000 mg po QAM, prn. ?? Ongoing osteoporosis prevention strategies, dietary intake, supplementation with vitamin D (no calcium due to kidney stones), ongoing weightbearing activity and exercise. ?? Annual influenza vaccine recommended. ?? Immunization records to be requested. ?? Ongoing contact/follow up ARELIS MICHELE MD and Cardiology. ?? Follow up in 5-6 weeks, sooner for concerns, questions or increased signs/symptoms. documented in this encounter Plan of Treatment Upcoming Encounters Date Type Department Care Team (Late st Contact Info) Description 04/28/2024 12:00 PM EDT Appointment [place] [address] documented as of this encounter Procedures Procedure Name Priority Date/Time Associated Diagnosis Comments ORDS - PROVIDER CARE SCAN 09/21/2014 12:00 AM EST documented in this encounter Results * SCAN DOC: ORDS - PROVIDER CARE (09/21/2014 12:00 AM EST) Scanning Provider MEDIA MGR SCAN EXT O RDR/RSLT documented in this encounter Visit Diagnoses Diagnosis Rheumatoid arthritis(714.0) Rheumatoid arthritis High risk medication use Encounter for long-term (current) use of other medications Encounter for long-term (current) use of other medications Sicca Sicca syndrome Breathlessness on exertion Other dyspnea and respiratory abnormality documented in this encounter Care Teams Lead Recoverer Relationship Specialty Start Date End Date Arelis Michele MD [address] [place] [address] PCP - General 11/16/13 06/10/18 documented as of this encounter
--- OUTSIDE RECORDS SUMMARY | 2024-04-06 02:31 | XMS_ITS | Encounter Summary ---
Author Organization [facility] [place] [address] Care Team Providers Care Hammerer Helper Name Role Phone Gloria Espinoza MD Primary Care Provider [phone] Reason for Visit * Reason Comments Rheumatoid Arthritis Encounter Details Date Type Department Care Team (Late st Contact Info) Description 09/14/2013 12:05 PM EST [place] [address] Kandy Espana, RN [facility] DR [place] [address] Rheumatoid arthritis (Primary Dx); Chronic steroid use; High risk medication use; Encounter for long-term (current) use of other medications Discharge Disposition: Home Social History Tobacco Use [...] Sign Reading Time Taken Comments Blood Pressure 138/93 09/14/2013 12:03 PM EST Pulse 90 09/14/2013 12:03 PM EST Temperature 36.4 ??C (97.5 ??F) 09/14/2013 1 2:03 PM EST Respiratory Rate - - Oxygen Saturation 97% 09/14/2013 12: 03 PM EST Inhaled Oxygen Concentration - - Weight 97.9 kg (215 lb 12.8 oz) 014 12:03 PM EST Height 182.9 cm (6') 09/14/2013 12:03 PM EST Body Mass Index 29.27 09/14/2013 12:03 PM EST documented in this encounter Patient Instructions * Patient Instructions* Aric Kristywashington Lehman LPN - 09/14/2013 12:03 PM EST ?? Follow per ENT, prn ?? PULM appointment to be re-scheduled. ?? HOLD enbrel. ?? Continue MTX 10 mg po weekly, if no nausea or GI upset. ?? Continue folic acid 2 [...] reviewed. ?? Annual influenza vaccine recommended. ?? To establish with new PCP in 09/2013. ?? Ongoing HTN management -> PCP office. ?? Follow up at time of PULM consult, sooner for concerns, questions or increased signs/symptoms. I would like you to sign up for [facility], which will give you secure online access to your electronic medical record at [facility] and the ability to communicate with your [...] the instructions. Here is your activation code: [email or web address] Expires: 10/29/2013 12:03 PM Remember, [facility] is NOT for urgent needs! Always dial 911 for medical emergencies. documented in this encounter Progress Notes * Kandy Espana APRN - 09/14/2013 12:03 PM EST Established Patient Follow Up - [...] visit: Updates in BOLD italics. ?? Referral ENT -> scheduled [facility] on 08/17/2013. Appointment completed. Culture completed. Treated with unspecified ABX 1 tab BID x 10 days. Better, cleaned it right up. Still noting shortness or breath with exertion; can't walk long distances. ?? PFTs - reviewed and provided copies -> PULM referral. No action - PULM consult today cancelled and needs to be rescheduled. ?? Labs from last OV reviewed and provided copies ?? CXR reviewed and provided copies. No action today. ?? HOLD enbrel. Did not resume. ?? Increase MTX by 2.5 mg (1 tab) weekly, up to 15 mg po weekly, if no nausea or GI upset. Taking 10 mg po weekly, folic acid 2 tabs daily. ?? Continue medrol 4 mg po daily. One tablet (4 mg) daily. ?? Discussed potential for modification in therapy - anti-TNF association with recurrent URI - consider Rituxan. ?? Continue treatments for dry mouth and blepharitis per Ophth/ENT; ongoing evoxac. Ongoing eye drops. ?? Continue acetaminophen 1000 mg po QAM, prn. 1000 mg po daily - joint stiffness (+) benefit. ?? Ongoing osteoporosis prevention strategies, dietary intake, supplementation with vitamin D (no calcium due to kidney stones), ongoing weightbearing activity and exercise. No calcium, ongoing vitamin D. ?? Indications for holding Enbrel and methotrexate reviewed. ?? NO LIVE vaccines with biologic. Noted; no change. ?? Annual influenza vaccine recommended. ?? Received PPSV booster today. NO AE. ?? To establish with new PCP in 08/2013. Called 08/27/2013 - no answer. Rescheduled new patient appointment end of the month. ?? Ongoing HTN management -> PCP office. Good days and bad days for rheumatoid arthritis. No joint swelling, generalized jointstiffness lasting less than one hour. When last seen, reported still using (+) [...] to Visit Medication Sig Dispense Refill ??? folic acid (FOLVITE) 1 mg tablet Take 1 tablet by mouth 3 times daily. 90 tablet 3 ??? methylPREDNISolone (MEDROL) 4 mg tablet Take 1 tablet by mouth daily. 90 tablet 0 ??? venlafaxine (EFFEXOR-XR) 75 mg 24 hr [...] once a week. 78 tablet 3 ??? losartan (COZAAR) 50 mg [...] Calcium kidney stones PHYSICAL EXAMINATION: Filed Vitals: 09/14/13 1203 BP: 138/93 Pulse: 90 Temp: 36.4 ??C (97.5 ??F) TempSrc: Oral Height: 182.9 cm (6') Weight: 97.886 kg (215 lb 12.8 oz) SpO2: 97% Constitutional: Pleasant adult male, in no acute distress. HEENT: Normocephalic, atraumatic. Eyes -sclera clear. Nares (+) dry, intact. (-) sphenoid and maxillary sinus pressure. Oral mucous membranes moist and intact. No posterior pharyngeal edema, exudate or erythema. No thyromegaly, anterior orcervical lymphadenopathy, submandibular or parotid gland enlargement. Chest: Heart rate and rhythm regular; (-) murmur or extra sounds. Lungs - clear to auscultation; (-) wheezing; (-) rales, or rhonchi. Musculoskeletal: Muscle mass bilaterally symmetric. Joint Exam: Neck ROM functional and nontender. Nontender to palpation at cervical, thoracic and lumbar spine. Bilateral shoulder ROM functionaland nontender. Elbow ROM full, (-) tender; no [...] exertional dyspnea, drug safety monitoring. PLAN: ?? Follow per ENT, prn ?? PULM appointment to be re-scheduled. ?? HOLD enbrel. ?? Continue MTX 10 mg po weekly, if no nausea or GI upset. ?? Continue folic acid 2 [...] reviewed. ?? Annual influenza vaccine recommended. ?? To establish with new PCP in 09/2013. ?? Ongoing HTN management -> PCP office. ?? Follow up at time of PULM consult, sooner for concerns, questions or increased signs/symptoms. documented in this encounter Plan of Treatment Upcoming Encounters Date Type Department Care Team (Late st Contact Info) Description 04/28/2024 12:00 PM EDT Appointment [place] [id number] documented as of this encounter Visit Diagnoses Diagnosis Rheumatoid arthritis(714.0)- Primary Rheumatoid arthritis Chronic steroid use Encounter for long-term (current) use of steroids High risk medication use Encounter for long-term (current) use of other medications Encounter for long-term (current) use of other medications documented in this encounter Care Teams Hammerer Helper Relationship Specialty Start Date End Date Gloria Espinoza MD [facility] [address] [place] [address] [place] [address] PCP - General 07/25/10 11/08/13 documented as of this encounter
--- OUTSIDE RECORDS SUMMARY | 2024-04-06 02:32 | XMS_ITS | Encounter Summary ---
Author Organization [facility] [place] [address] Care Team Providers Care Research Associate Policy Name Role Phone Gloria Espinoza MD Primary Care Provider [phone] Encounter Details Date Type Department Care Team (Late st Contact Info) Description 02/19/2011 Orders [place] [address] Kandy Espana, RN [facility] DR RHEUMATOLOGY [place] [address] Rheumatoid arthritis Social History Tobacco Use Types Packs/Day Years Used Date Smoking Tobacco: Never Alcohol Use Standard Drinks/Week Comments Not Asked 0 (1 standard drink = 0.6 oz pur e alcohol) Sex and Gender Information Value Date Recorded Sex Assigned at Not on file Gender Identity Not on file Sexual Orientation Not on file documented as of this encounter Plan of Treatment Upcoming Encounters Date Type Department Care Team (Late st Contact Info) Description 04/28/2024 12:00 PM EDT [place]ointment [place] [phone] documented as of this encounter Results * High Sensitivity CRP (02/19/2011 1:52 PM EDT) [facility] C-Reactive Protein High Sensitivity 1.1 mg/L [facility] Comment: Interpretations: 1) For cardiac risk assessment, two values (fasting or nonfasting sample acceptable) taken at least 2 weeks apart, should be averaged to provide a more reliable estimate of marker level. ??This laboratory uses the recommendations from the AHA/CDC Scientific Statement for interpretations of future risks of cardiovascular events: ? <1.0 mg/L: low risk 1.0 - 3.0 mg/L: moderate risk >3.0 mg/L: high risk groups for future cardiovascular events 2) The general reference range of apparently healthy individuals using this test is <5.0 mg/L (derived from the test package insert) A few words of caution: For cardiac assessment, when a value >10 mg/L is encountered, there should be a search for an acute inflammatory condition or infection (in patients with acute inflammation, the concentration can increase to >500 mg/L). ??The >10 mg/L should be discarded if such a situation exists, since the risk for coronary heart disease cannot be provided, and a repeat specimen, taken at least two weeks after resolution of the acute inflammatory condition, may allow for appraisal of coronary risk information. References: 1. Aurelia OMER et. al. ??AHA/CDC Scientific Statement: Markers of Inflammation and Cardiovascular Disease. ??Circulation 2003; 107:499-511 2. Kaneker PM. ??Clinical applications of C-reactive protein for cardiovascular disease detection and prevention. ??Circulation 2003; 107:363-369 Blood specimen (specimen) 02/19/2011 1:52 PM EDT 02/19/2011 1:59 PM EDT Luke Metcalf MD CHEMISTRY ORDERABLE S Performing Organization Address City/State/[facility] Phone Number [facility] documented in this encounter Visit Diagnoses Diagnosis Rheumatoid arthritis(714.0) Rheumatoid arthritis documented in this encounter Care Teams Research Associate Policy Relationship Specialty Start Date End Date Gloria Espinoza MD [facility] [address] [place] [address] [place] [address] PCP - General 07/25/10 11/08/13 documented as of this encounter
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
--- OUTSIDE RECORDS SUMMARY | 2024-04-06 02:32 | XMS_ITS | Encounter Summary ---
Author Organization [facility] [place] [address] Care Team Providers Care Software Sales Representative Name Role Phone Gloria Espinoza MD Primary Care Provider [phone] Encounter Details Date Type Department Care Team (Late st Contact Info) Description 06/16/2013 2:49 PM EDT - 06/16/2013 11:59 PM EDT Hospital Encounter XRay at [address] [place] [address] Cough Social History Tobacco Use Types Packs/Day [...] Sig Dispensed Refills Start Date End Date cholecalciferol, Vitamin D3, 50 mcg (2,000 unit) Capsule Take 2,000 Units by mouth daily. acetaminophen (Tylenol) 500 mg Tablet Take 1,000 mg by mouth every 6 hours as needed. omeprazole (PRILOSEC) 40 mg capsule Take 40 mg by mouth daily. MULTIVITAMIN/IRON/FO LIC ACID (DAILY MULTI ORAL) Take 1 tablet by mouth daily. CIS Free Text Med - OTC mositurizing eye drops 11/02/2010 venlafaxine (EFFEXOR-XR) 75 mg 24 hr capsule Take 75 mg by mouth daily. 10/20/2018 methylPREDNISolone (MEDROL) 4 mg tablet TAKE 1/2 TABLET BY MOUTH DAILY 45 tablet 2 03/31/2013 08/11/2013 lovastatin (MEVACOR) 10 mg tablet Take 10 mg by mouth nightly. 03/21/2019 etanercept (ENBREL) 50 mg/mL (0.98 mL) injection Inject 1 mL subcutaneously once a week. 12 each 3 02/04/2013 08/11/2013 VENLAFAXINE HCL (EFFEXOR ORAL) Take 150 mg by mouth daily. 07/22/2017 doxazosin (CARDURA) 1 mg tablet Take 1 mg by mouth nightly. 09/14/2013 cevimeline (EVOXAC) 30 mg capsule Take 30 mg by mouth daily. 01/08/2019 methotrexate 2.5 mg tablet Take 6 tablets by mouth once a week. 78 tablet 3 07/21/2012 09/14/2013 folic acid (FOLVITE) 1 mg tablet Take 1 tablet by mouth 3 times daily. 270 tablet 3 07/21/2012 08/11/2013 losartan (COZAAR) 50 mg tablet Take 100 mg by mouth daily. 07/22/2017 doxycycline (ADOXA) 50 mg tablet Take 50 mg by mouth daily. 08/11/2013 temazepam (RESTORIL) 30 mg capsule 30 mg, PO, QHS 11/02/2010 06/05/2022 documented as of this encounter Plan of Treatment Upcoming Encounters Date Type Department Care Team (Late st Contact Info) Description 04/28/2024 12:00 PM EDT [place] [address] documented as of this encounter Procedures Procedure Name Priority Date/Time Associated Diagnosis Comments XR CHEST PA AND LATERAL Routine 06/16/2013 3:23 PM EDT Cough documented in this encounter Results * XR chest routine PA & lateral (06/16/2013 3:23 PM EDT) Anatomical Region Laterality Modality Chest N/A Radiographic Gabriella ging 06/16/2013 3:23 PM EDT Narrative 06/17/2013 5:21 PM EDT Examination CHEST ROUTINE 2 VIEWS Clinical History dry cough on group home methotrexate for RA Comparison Chest radiograph 06/04/2007, 11/02/2003. ?? Technique PA and lateral chest ?? Findings The lungs are clear. Specifically no evidence of pulmonary fibrosis. Similar to minimally increased elevation of the right hemidiaphragm. The cardiomediastinal silhouette and pulmonary vascular markings are unchanged and within normal limits. No osseous lesions. ?? Impression No significant interval change. Specifically no pulmonary abnormalities. Film and interpretation reviewed by the attending Procedure Note Lynn Mejia MD - 06/17/2013 Examination CHEST ROUTINE 2 VIEWS Clinical History dry cough on group home methotrexate for RA Comparison Chest radiograph 06/04/2007, 11/02/2003. Technique PA and lateral chest Findings The lungs are clear. Specifically no evidence of pulmonary fibrosis.Similar to minimally increased elevation of the right hemidiaphragm. Thecardiomediastinal silhouette and pulmonary vascular markings are unchanged and within normal limits. No osseous lesions. Impression No significant interval change. Specifically no pulmonary abnormalities. Film and interpretation reviewed by the attending Eusebio Espinosa MD IMG DX ORDERABLES documented in this encounter Visit Diagnoses Diagnosis Cough documented in this encounter Care Teams Software Sales Representative Relationship Specialty Start Date End Date Gloria Espinoza MD [facility] [address] [place] [address] [place] [address] PCP - General 07/25/10 11/08/13 documented as of this encounter
--- OUTSIDE RECORDS SUMMARY | 2024-04-06 02:32 | XMS_ITS | Encounter Summary ---
Author Organization [facility] [place] [address] Care Team Providers Care Certified Registered Nurse Practitioner Name Role Phone Gloria Espinoza MD Primary Care Provider [phone] Reason for Visit * Reason Comments Medication Refill Encounter Details Date Type Department Care Team (Late st Contact Info) Description 03/31/2013 [place] [address] Kandy Espana, RN [facility] [place] [address] Social History Tobacco Use Types Packs/Day Years [...] 12:00 PM EDT [place] [phone] documented as of this encounter Visit Diagnoses Not on filedocumented in this encounter Care Teams Certified Registered Nurse Practitioner Relationship Specialty Start Date End Date Gloria Espinoza MD [facility] [address] [place] [address] [address] [place], [place] [id number] PCP - General 07/25/10 11/08/13 documented as of this encounter
--- OUTSIDE RECORDS SUMMARY | 2024-04-06 02:32 | XMS_ITS | Encounter Summary ---
Author Organization [facility] [place] [address] Care Team Providers Care Outpatient Scheduler Name Role Phone Gloria Espinoza MD Primary Care Provider [phone] Reason for Visit * Reason Onset Date Comments Labs Only 02/20/2011 Encounter Details Date Type Department Care Team (Late st Contact Info) Description 02/20/2011 Telephone [place] [phone] Kandy Espana, RN [facility] DR [place] [address] Labs Only Social History Tobacco Use Types [...] encounter Miscellaneous Notes * Telephone Encounter - Luke Douglas - 02/20/2011 9:07 AM EDT LABS PRIOR TO APPT documented in this encounter Plan of Treatment Upcoming Encounters Date Type Department Care Team (Late st Contact Info) Description 04/28/2024 12:00 PM EDT Appointment [place] [phone] Scheduled Orders Name Type Priority Associated Diagnoses Orde r Schedule CBC Lab Routine Encounter for long-term (current) use of other medications Every 12 Weeks for 4 Occurrences starting 09/12/2007 until 04/17/2012, 3 completed documented as of this encounter Results * Creatinine, serum (04/08/2012 11:21 AM EDT) Creatinine 0.84 0.80 - 1.50 mg/dL [facility] Comment: Please note that the pediatric reference intervals supplied above were not validated at [facility]. Results from pediatric patients should be interpreted in conjunction to the patient's age, height and muscle mass. Est Glomerular Filtration Rate >60 >=60 [facility] Comment: The National Kidney Disease Education [...] with diabetic kidney disease. References: http://nkdep.nih.gov/resources/NKDEP_Suggestn4Labs_0606_508.pdf http://www.kidney.org/professionals/kls/pdf/faq_gfr.pdf Murata K, Madelyn NA, Jesus AK, Zack TS, Huang AD, Carmine PERCY. Relative performance of the MDRD and CKD-EPI equations for estimating glomerular filtration rate among patients with varied clinical presentations. Clin J Am Soc Nephrol;6:1963-72. Blood specimen (specimen) 04/08/2012 11:21 AM EDT 04/08/2012 11:24 AM EDT Narrative Resulting Agency Comment Spec In Lab Doe Obrien MD CHEMISTRY ORDERAB LES Performing Organization Address [facility] Co de Phone Number CERNER MILLENNIUM * Hepatic function panel (04/08/2012 11:21 AM [...] MD CHEMISTRY ORDERAB LES Performing Organization Address [facility] Co de Phone Number CERNER MILLENNIUM * BUN (04/08/2012 11:21 AM EDT) Blood Urea Nitrogen 10 10 - 20 mg/dL CERNER MILLENNIUM Blood specimen (specimen) 04/08/2012 11:21 AM EDT 04/08/2012 11:24 AM EDT Narrative Resulting Agency Comment Spec In Lab Doe Obrien MD CHEMISTRY ORDERAB LES CERNER MILLENNIUM * Creatinine, serum (01/01/2012 11:03 AM EDT) Creatinine 0.96 0.80 - 1.50 mg/dL [facility] Est Glomerular Filtration Rate >60 >=60 [facility] Comment: The National Kidney Disease Education Program [...] J Am Soc Nephrol;6:1963-72. Blood specimen (specimen) 01/01/2012 11:03 AM EDT 01/01/2012 11:05 AM EDT Narrative Resulting Agency Comment Spec In Lab Doe Obrien MD CHEMISTRY ORDERAB LES Performing Organization Address [facility] Co de Phone Number CERNER MILLENNIUM * Hepatic function panel (01/01/2012 11:03 AM EDT) Protein, Total 6.9 6.4 - 8.3 gm/dL CERNER MILLENNIUM Albumin 4.3 3.2 - 5.2 gm/dL CERNER MILLENNIUM Aspartate Aminotransferase 25 0 - 39 unit/L CERNER MILLENNIUM Alanine Aminotransferase 28 0 - 55 unit/L CERNER MILLENNIUM Alkaline Phosphatase 85 40 - 120 unit/L CERNER MILLENNIUM Bilirubin, Total 0.3 0.2 - 1.3 mg/dL CERNER MILLENNIUM Bilirubin, Direct 0.1 0.0 - 0.3 mg/dL CERNER MILLENNIUM Blood specimen (specimen) 01/01/2012 11:03 AM EDT 01/01/2012 11:05 AM EDT Narrative Resulting Agency Comment Spec In Lab Doe Obrien MD CHEMISTRY ORDERAB LES Performing Organization Address [facility] Co de Phone Number CERNER MILLENNIUM * BUN (01/01/2012 11:03 AM EDT) Blood Urea Nitrogen 18 10 - 20 mg/dL CERNER MILLENNIUM Blood specimen (specimen) 01/01/2012 11:03 AM EDT 01/01/2012 11:05 AM EDT Narrative Resulting Agency Comment Spec In Lab Doe Obrien MD CHEMISTRY ORDERAB LES Performing Organization Address [facility]/ZIP Co de Phone Number CERNER MILLENNIUM * (ABNORMAL) CBC (01/01/2012 11:03 AM EDT) White Blood Cell 9.6 4.0 - 10.0 x10(3)/mc L CERNER MILLENNIUM Red Blood Cell 5.24 4.63 - 6.08 x10(6)/mc L CERNER MILLENNIUM Hemoglobin 16.2 13.7 - 17.5 gm/dL CERNER MILLENNIUM Hematocrit 47.7 40.0 - 51.0 % CERNER MILLENNIUM Mean Cell Volume 91.0 79.0 - 92.0 fL CERNER MILLENNIUM Mean Cell Hemoglobin 30.9 25.6 - 32.2 pg CERNER MILLENNIUM Mean Cell Hemoglobin Concentration 34.0 32.0 - 36.5 gm/dL CERNER MILLENNIUM Platelet 241 145 - 370 x10(3)/mc L CERNER MILLENNIUM RDW Standard Deviation 47.5(H) 35.0 - 46.0 fL CERNER MILLENNIUM RDW coefficient of variation 14.4 10.9 - 14.4 % CERNER MILLENNIUM Mean Platelet Volume 9.7 9.0 - 12.0 fL CERNER MILLENNIUM Blood specimen (specimen) 01/01/2012 11:03 AM EDT 01/01/2012 11:05 AM EDT Narrative Resulting Agency Comment Spec In Lab Doe Obrien MD HEMATOLOGY ORDERA BLES CERNER MILLENNIUM * Creatinine, serum (07/16/2011 2:44 PM EST) Creatinine 0.99 0.80 - 1.50 mg/dL CERNER MILLENNIUM Est Glomerular Filtration Rate >60 >=60 CERNER MILLENNIUM Comment: The National Kidney Disease Education Program (NKDEP) has recommended all laboratories report estimated GFR (eGFR) along with plasma creatinine measurements to assist you with recognition of early kidney disease. Caveats: ??Plasma creatinine should be at steady-state (unchanged within the past week). For patients multiply eGFR by 1.2.MDRD equation has not been validated for pediatric patients and is only valid for patients with age >= 18 years. At present, NKDEP does NOT recommend using [...] with diabetic kidney disease. References: http://nkdep.nih.gov/resources/NKDEP_Suggestn4Labs_0606_508.pdf http://www.kidney.org/professionals/kls/pdf/faq_gfr.pdf Blood specimen (specimen) 07/16/2011 2:44 PM EST 07/16/2011 3:07 PM EST Doe Obrien MD CHEMISTRY ORDERAB LES Performing Organization Address [facility] Co de Phone Number CERFRANKIE MILLENNIUM * Hepatic function panel (07/16/2011 2:44 PM EST) Protein, Total 6.6 6.4 - 8.3 gm/dL CERNER MILLENNIUM Albumin 4.2 3.2 - 5.2 gm/dL CERNER MILLENNIUM Aspartate Aminotransferase 24 0 - 39 unit/L CERNER MILLENNIUM Alanine Aminotransferase 30 0 - 55 unit/L CERNER MILLENNIUM Alkaline Phosphatase 79 40 - 120 unit/L CERNER MILLENNIUM Bilirubin, Total 0.3 0.2 - 1.3 mg/dL CERNER MILLENNIUM Bilirubin, Direct 0.1 0.0 - 0.3 mg/dL CERNER MILLENNIUM Blood specimen (specimen) 07/16/2011 2:44 PM EST 07/16/2011 3:07 PM EST Doe Obrien MD CHEMISTRY ORDERAB LES CERFRANKIE NEGRETEENNIUM * BUN (07/16/2011 2:44 PM EST) Blood Urea Nitrogen 12 10 - 20 mg/dL CERNER MILLENNIUM Blood specimen (specimen) 07/16/2011 2:44 PM EST 07/16/2011 3:07 PM EST Doe Obrien MD CHEMISTRY ORDERAB LES CARLOS NEGRETEENNIUM * (ABNORMAL) CBC (07/16/2011 2:44 PM EST) White Blood Cell 11.5(H) 4.0 - 10.0 x10(3)/mc L CERNER MILLENNIUM Red Blood Cell 4.98 4.63 - 6.08 x10(6)/mc L CERNER MILLENNIUM Hemoglobin 16.0 13.7 - 17.5 gm/dL CERNER MILLENNIUM Hematocrit 46.9 40.0 - 51.0 % CERNER MILLENNIUM Mean Cell Volume 94.2(H) 79.0 - 92.0 fL CERNER MILLENNIUM Mean Cell Hemoglobin 32.1 25.6 - 32.2 pg CERNER MILLENNIUM Mean Cell Hemoglobin Concentration 34.1 32.0 - 36.5 gm/dL CERNER MILLENNIUM Platelet 267 145 - 370 x10(3)/mc L CERNER MILLENNIUM RDW Standard Deviation 49.5(H) 35.0 - 46.0 fL CERNER MILLENNIUM RDW coefficient of variation 14.6(H) 10.9 - 14.4 % CERNER MILLENNIUM Mean Platelet Volume 10.1 9.0 - 12.0 fL CERNER MILLENNIUM Blood specimen (specimen) 07/16/2011 2:44 PM EST 07/16/2011 3:07 PM EST Doe Obrien MD HEMATOLOGY ORDERA BLES Performing Organization Address City/[facility]/ZIP Co de Phone Number [facility] * Creatinine, serum (04/17/2011 1:01 PM EDT) Creatinine 0.93 0.80 - 1.50 mg/dL CERNER MILLENNIUM Est Glomerular Filtration Rate >60 >=60 CERNER MILLENNIUM Comment: The National Kidney Disease Education Program (NKDEP) has recommended all laboratories report estimated GFR (eGFR) along with plasma creatinine measurements to assist you with recognition of early kidney disease. Caveats: ??Plasma creatinine should be at steady-state (unchanged within the past week). For patients multiply eGFR by 1.2.MDRD equation has not been validated for pediatric patients and is only valid for patients with age >= 18 years. At present, NKDEP does NOT recommend using [...] with diabetic kidney disease. References: http://nkdep.nih.gov/resources/NKDEP_Suggestn4Labs_0606_508.pdf http://www.kidney.org/professionals/kls/pdf/faq_gfr.pdf Blood specimen (specimen) 04/17/2011 1:01 PM EDT 04/17/2011 1:15 PM EDT Doe Obrien MD CHEMISTRY ORDERAB LES [facility] Organization Address City/State/ZIP Co de Phone Number [facility] MILLENNIUM * Hepatic function panel (04/17/2011 1:01 PM EDT) Protein, Total 6.4 6.4 - 8.3 gm/dL CERNER MILLENNIUM Albumin 4.1 3.2 - 5.2 gm/dL CERNER MILLENNIUM Aspartate Aminotransferase 22 0 - 39 unit/L CERNER MILLENNIUM Alanine Aminotransferase 24 0 - 55 unit/L CERNER MILLENNIUM Alkaline Phosphatase 66 40 - 120 unit/L CERNER MILLENNIUM Bilirubin, Total 0.3 0.2 - 1.3 mg/dL CERNER MILLENNIUM Bilirubin, Direct 0.1 0.0 - 0.3 mg/dL CERNER MILLENNIUM Blood specimen (specimen) 04/17/2011 1:01 PM EDT 04/17/2011 1:15 PM EDT Doe Obrien MD CHEMISTRY ORDERAB LES Performing Organization Address [facility]/ZIP Co de Phone Number CERNER MILLENNIUM * BUN (04/17/2011 1:01 PM EDT) Blood Urea Nitrogen 14 10 - 20 mg/dL CERNER MILLENNIUM Blood specimen (specimen) 04/17/2011 1:01 PM EDT 04/17/2011 1:15 PM EDT Doe Obrien MD CHEMISTRY ORDERAB LES Performing Organization Address [facility] Co de Phone Number CERNER MILLENNIUM * (ABNORMAL) CBC (04/17/2011 1:01 PM EDT) White Blood Cell 10.1(H) 4.0 - 10.0 x10(3)/mc L CERNER MILLENNIUM Red Blood Cell 4.74 4.63 - 6.08 x10(6)/mc L CERNER MILLENNIUM Hemoglobin 14.9 13.7 - 17.5 gm/dL CERNER MILLENNIUM Hematocrit 42.9 40.0 - 51.0 % CERNER MILLENNIUM Mean Cell Volume 90.5 79.0 - 92.0 fL CERNER MILLENNIUM Mean Cell Hemoglobin 31.4 25.6 - 32.2 pg CERNER MILLENNIUM Mean Cell Hemoglobin Concentration 34.7 32.0 - 36.5 gm/dL CERNER MILLENNIUM Platelet 229 145 - 370 x10(3)/mc L CERNER MILLENNIUM RDW Standard Deviation 49.9(H) 35.0 - 46.0 fL CERNER MILLENNIUM RDW coefficient of variation 15.2(H) 10.9 - 14.4 % CERNER MILLENNIUM Mean Platelet Volume 9.5 9.0 - 12.0 fL CERNER MILLENNIUM Blood specimen (specimen) 04/17/2011 1:01 PM EDT 04/17/2011 1:15 PM EDT Doe Obrien MD HEMATOLOGY ORDERA BLES Performing Organization Address [facility]/ZIP Co de Phone Number CERNER MILLENNIUM documented in this encounter Visit Diagnoses Diagnosis Encounter for long-term (current) use of other medications- Primary documented in this encounter Care Teams Outpatient Scheduler Relationship Specialty Start Date End Date Gloria Espinoza MD H[facility]PITAL[facility] [address] [place] [address] [place] [address] PCP - General 07/25/10 11/08/13 documented as of this encounter
--- OUTSIDE RECORDS SUMMARY | 2024-04-06 02:32 | XMS_ITS | Encounter Summary ---
Author Organization [facility] [place] [address] Care Team Providers Care Demolition Crane Operator Name Role Phone Gloria Espinoza MD Primary Care Provider [phone] Reason for Referral * Consultation (Routine) - Closed by system - unspecified Specialty Diagnoses / Procedures Referred By Azam corbett Referred To Contact Podiatry Diagnoses Foot pain Kandy Espana, RN [facility] [place] [address] Referral ID Status Reason Start Date Expiration Date Visits Requested Visits Authorized [id number] Closed by system - unspecified Consult, Test & Treat 10/22/2012 04/20/2013 1 1 Reason for Visit * Reason Comments Rheumatoid Arthritis Encounter Details Date Type Department Care Team (Late st Contact Info) Description 10/22/2012 11:45 AM EST [place] [address] Kandy Espana RN [facility] [place] [address] Encounter for long-term (current) use of other medications (Primary Dx); Foot pain; Rheumatoid arthritis; High risk medication use Discharge Disposition: Home Social History Tobacco Use [...] Sign Reading Time Taken Comments Blood Pressure 144/92 10/22/2012 11:39 AM EST Pulse 100 10/22/2012 11:39 AM EST Temperature 36.6 ??C (97.9 ??F) 10/22/2012 11:[address] Respiratory Rate - - Oxygen Saturation 95% 10/22/2012 11:39 AM EST Inhaled Oxygen Concentration - - Weight 93.9 kg (207 lb) 10/22/2012 11:39 AM EST Height 182.9 cm (6') 10/22/2012 11:39 AM EST Body Mass Index 28.07 10/22/2012 11:39 AM EST documented in this encounter Progress Notes * Kandy Espana, CLOTH NEUTRALIZER - 10/22/2012 11:51 AM EST Established Patient Follow Up - Rheumatology Clinic Wesly Ybarra is a 61-year-old male seen for ongoing evaluation and management of rheumatoid arthritis. He is accompanied by his sister. Patient Active Problem List Diagnoses Code ??? RA (rheumatoid arthritis) 714.0 ??? Osteopenia 733.90 ??? GERD (gastroesophageal reflux disease) 530.81 ??? Hyperlipidemia 272.4 ??? Depression 311 ??? HTN (hypertension) 401.9 ??? Burning sensation in eye 782.0 INTERVAL HISTORY: Plan at time of last office visit: Updates in BOLD italics. ?? Referral to Podiatry [facility]. Not completed - will recontact. ?? Continue with current plan of care for rheumatoid arthritis - reviewed option to return to syringe (50 mg prefilled) once weekly - will wait for now and continue - enbrel administration (SURECLIK). Using SURE-CLIK. Taking 15 mg po once weekly; folic acid 3 mg po daily -> no interruption. ?? Continue treatments for dry mouth and blepharitis per Ophth/ENT. Continues eye washes and added evoxac with benefit. Has not returned to see OPHTH yet. ?? Continue acetaminophen 1000 mg po QAM. Still using for joint stiffness, with benefit. ?? Office contact for joint swelling/increased pain or functional limitations. ?? Ongoing osteoporosis prevention strategies, dietary intake, supplementation with vitamin D (no calcium due to kidney stones), ongoing weightbearing activity and exercise. Ongoing. ?? Indications for holding Enbrel and methotrexate reviewed. No change. ?? Labs pending - Reviewed and copied to Gloria Espinoza MD In the last 11 weeks, taken enbrel only three times (last week - SAT last dose). Had pneumonia, whooping cough and then hernia repair s/p hemicolectomy. Convenient time for surgery. Treated for pneumonia - seen at PCP's for cough, fever, chills -> CXR completed. Treated with ABX (unspecified) x 7 days and cough syrup. About 3-4 weeks later, treated for whooping cough (+) culture. Treated with another ABX (unspecified) x 10 days. Surgery 3 weeks ago; no oscar- procedural complications. Limited activity - #5 carrying limit. Mr. Ybarra reports (-) daily joint swelling, pain or sustained AM stiffness affecting right shoulder, left hip, knees -> all improved after two doses of enbrel (week apart) in last two weeks. (+) liquid tears with less drying. Using Xylimelts for dry mouth with benefit. Got influenza vaccine. When last seen, reported use of sureclik pen is OK. Initial use with misfire and wasted med. Did not replace. Since that time, no waste of medication, onging benefit, but the sureclikpen stings more than syringe did. Will decide before prescription runs out, if syringe is preferred. ontinues methotrexate 15 mg po weekly, folic acid 1 mg po daily and enbrel 25 mg sc twice weekly. Reports no limitations in self-care or diversional activities. Reports no fever, chills, eye pain, visual changes, oral ulcers, + dry mouth, painful or difficult swallowing, diarrhea or skin rash. Appetite good and weight stable. No recurrent illness or infection. Denies other changes in medical, surgical or social history. Current Outpatient Prescriptions on File Prior to Visit Medication Sig Dispense Refill ??? methotrexate 2.5 mg tablet Take 6 tablets by mouth once a week. 78 tablet 3 ??? folic acid (FOLVITE) 1 mg tablet Take 1 tablet by mouth 3 times daily. 270 tablet 3 ??? losartan (COZAAR) 50 mg tablet Take 50 mg by mouth daily. ??? methylPREDNISolone (MEDROL) 4 mg tablet Take 0.5 tablets by mouth daily. 45 tablet 3 ??? Etanercept (ENBREL SURECLICK) 50 [...] fluticasone (FLONASE) 50 mcg/Actuation nasal spray 2 [place](s), Nasal, Once daily Allergies Allergen Reactions ??? Calcium kidney stones PHYSICAL EXAMINATION: Filed Vitals: 10/22/12 1139 BP: 144/92 Pulse: 100 Temp: 36.6 ??C (97.9 ??F) TempSrc: Oral Height: 182.9 cm (6') Weight: 93.895 kg (207 lb) SpO2: 95% Constitutional: Pleasant adult male, in no acute distress. HEENT: Normocephalic, atraumatic. Eyes -sclera clear. Oral mucous membranes moist and intact; no [...] nodules, or effusion. Wrist ROM functional and nontender bilaterally. MCPs and PIPs - thickened without swelling. CMC thickening; no swelling. Makes a near complete fist and claw. Hip ROM functional; arises seated to standing independently. Bilateral knees - no effusion, erythema, or warmth. ROM functional. Bilateral ankle ROM functional, tender; no swelling. MTPs tender to compression.Skin: Intact without rash, telangiectasias, + nail dystrophy. ASSESSMENT: Rheumatoid arthritis, sicca symptoms, foot discomfort, xerostomia, blepharitis, osteopenia. PLAN: ?? Referral to Podiatry [facility]. ?? Continue with current plan of care for rheumatoid arthritis and sicca symptoms. ?? Continue treatments for dry mouth and blepharitis per Ophth/ENT. ?? Continue acetaminophen 1000 mg po QAM, prn. ?? Office contact for joint swelling/increased pain or functional limitations. ?? Ongoing osteoporosis prevention strategies, dietary intake, supplementation with vitamin D (no calcium due to kidney stones), ongoing weightbearing activity and exercise. ?? Indications for holding Enbrel and methotrexate reviewed. ?? Labs pending. ?? Followup planned in 12 weeks, sooner for concerns, questions or increased signs/symptoms. Addendum: Recent Results (from the past 24 hour(s)) CBC (WITH DIFF) Component Value Range WBC 10.6 (*) 4.0 - 10.0 (x10(3)/mcL) RBC 5.47 4.63 - 6.08 (x10(6)/mcL) Hemoglobin 17.1 13.7 - 17.5 (gm/dL) Hematocrit 50.9 40.0 - 51.0 (%) MCV 93.1 (*) 79.0 - 92.0 (fL) MCH 31.3 25.6 - 32.2 (pg) MCHC 33.6 32.0 - 36.5 (gm/dL) Platelets 274 145 - 370 (x10(3)/mcL) RDWSD 49.2 (*) 35.0 - 46.0 (fL) RDWCV 14.5 (*) 10.9 - 14.4 (%) MPV 10.1 9.0 - 12.0 (fL) BUN Component Value Range BUN 11 10 - 20 (mg/dL) CREATININE Component Value Range Creatinine 0.79 (*) 0.80 - 1.50 (mg/dL) Estimated GFR >60 >=60 HEPATIC FUNCTION PANEL Component Value Range Total Protein 6.9 6.4 - 8.3 (gm/dL) Albumin 4.1 3.2 - 5.2 (gm/dL) AST 20 0 - 39 (unit/L) ALT 24 0 - 55 (unit/L) Alk Phos 85 40 - 120 (unit/L) Total Bilirubin 0.3 0.2 - 1.3 (mg/dL) Bili, Direct 0.1 0.0 - 0.3 (mg/dL) DIFFERENTIAL, AUTOMATED Component Value Range Neutrophils % 54.0 34.0 - 71.0 (%) Neutr Abs (ANC) 5.73 1.50 - 6.30 (x10(3)/mcL) Lymphocytes % 31.5 19.0 - 53.0 (%) Lymphocytes Abs 3.4 1.0 - 3.6 (x10(3)/mcL) Monocytes % 10.0 4.0 - 13.0 (%) Monocyte Abs 1.1 (*) 0.2 - 1.0 (x10(3)/mcL) Eosinophils % 4.1 0.0 - 7.0 (%) Eosinophils Abs 0.4 0.0 - 0.5 (x10(3)/mcL) Basophils % 0.3 0.0 - 2.0 (%) Basophils Abs 0.0 0.0 - 0.2 (x10(3)/mcL) Immature Gran % 0.10 0.00 - 0.66 (%) Brianna Gran Abs 0.01 0.00 - 0.05 (x10(3)/mcL) documented in this encounter Plan of Treatment Upcoming Encounters Date Type Department Care Team (Late st Contact Info) Description 04/28/2024 12:00 PM EDT [place] [address] Scheduled Referrals Name Type Priority Associated Diagnoses Orde r Schedule Referral to Podiatry Outpatient Referral Routine Foot pain Ordered: 10/22/2012 documented as of this encounter Procedures Procedure Name Priority Date/Time Associated Diagnosis Comments DIFFERENTIAL, AUTOMATED Routine 10/22/2012 12:46 PM EST CREATININE Routine 10/22/2012 12:46 PM EST Encounter for long-term (current) use of other medications CBC (WITH DIFF) Routine 10/22/2012 12:46 PM EST Encounter for long-term (current) use of other medications BUN Routine 10/22/2012 12:46 PM EST Encounter for long-term (current) use of other medications HEPATIC FUNCTION PANEL Routine 10/22/2012 12:46 PM EST Encounter for long-term (current) use of other medications documented in this encounter Results * (ABNORMAL) Differential, Automated (10/22/2012 12:46 PM EST) Neutrophil % 54.0 34.0 - 71.0 % CERNER MILLENNIUM Neutrophil Absolute 5.73 1.50 - 6.30 x10(3)/mc L CERNER MILLENNIUM Lymph % 31.5 19.0 - 53.0 % CERNER MILLENNIUM Lymphocytes Abs 3.4 1.0 - 3.6 x10(3)/mc L CERNER MILLENNIUM Monocyte % 10.0 4.0 - 13.0 % CERNER MILLENNIUM Monocyte Abs 1.1(H) 0.2 - 1.0 x10(3)/mc L CERNER MILLENNIUM Eos % 4.1 0.0 - 7.0 % CERNER MILLENNIUM Eosinophils Abs 0.4 0.0 - 0.5 x10(3)/mc L CERNER MILLENNIUM Basophil % 0.3 0.0 - 2.0 % CERNER MILLENNIUM Baso Absolute 0.0 0.0 - 0.2 x10(3)/mc L CERNER MILLENNIUM Immature Gran % 0.10 0.00 - 0.66 % CERNER MILLENNIUM Comment: Immature granulocytes(IG's)percentage and absolute count will include metamyelocytes, myelocytes, and promyelocytes. Blood smears from CBCs yielding IG's will be scanned manually for concordance. If this scan disagrees with the automated IG or if promyelocytes are noted, a manual differential will be performed. Immature Gran Absolute 0.01 0.00 - 0.05 x10(3)/mc L CERNER MILLENNIUM Blood specimen (specimen) 10/22/2012 12:46 PM EST 10/22/2012 12:58 PM EST Analilia Fuchs MD HEMATOLOGY ORDERA BLES Performing Organization Address [facility] Co de Phone Number [facility] DENISEIUM * Hepatic Function Panel (10/22/2012 12:46 PM EST) Protein, Total 6.9 6.4 - 8.3 gm/dL [...] 0.3 mg/dL CERNER MILLENNIUM Blood specimen (specimen) 10/22/2012 12:46 PM EST 10/22/2012 12:58 PM EST Narrative Resulting Agency Comment Spec In Lab Analilia Fuchs MD CHEMISTRY ORDERAB LES Performing Organization Address [facility]/ZIP Co de Phone Number CARLOS WALKERIUM * BUN (10/22/2012 12:46 PM EST) Blood Urea Nitrogen 11 10 - 20 mg/dL CERNER MILLENNIUM Blood specimen (specimen) 10/22/2012 12:46 PM EST 10/22/2012 12:58 PM EST Narrative Resulting Agency Comment Spec In Lab Analilia Fuchs MD CHEMISTRY ORDERAB LES CARLOS DENNIS * (ABNORMAL) Creatinine (10/22/2012 12:46 PM EST) [facility] Signature Creatinine 0.79(L) 0.80 - 1.50 mg/dL [facility] Comment: Please note that the pediatric reference intervals supplied above were not validated at [facility]. Results from pediatric patients should be interpreted in conjunction to the patient's age, height and muscle mass. Est Glomerular Filtration Rate >60 >=60 [facility] Comment: The National Kidney Disease Education Program [...] J Am Soc Nephrol;6:1963-72. Blood specimen (specimen) 10/22/2012 12:46 PM EST 10/22/2012 12:58 PM EST Narrative Resulting Agency Comment Spec In Lab Analilia Fuchs MD CHEMISTRY ORDERAB LES CERNER MILLENNIUM * (ABNORMAL) CBC (with Diff) (10/22/2012 12:46 PM EST) White Blood Cell 10.6(H) 4.0 - 10.0 x10(3)/mc L CERNER MILLENNIUM Red Blood Cell 5.47 4.63 - 6.08 x10(6)/mc L CERNER MILLENNIUM Hemoglobin 17.1 13.7 - 17.5 gm/dL CERNER MILLENNIUM Hematocrit 50.9 40.0 - 51.0 % CERNER MILLENNIUM Mean Cell Volume 93.1(H) 79.0 - 92.0 fL CERNER MILLENNIUM Mean Cell Hemoglobin 31.3 25.6 - 32.2 pg CERNER MILLENNIUM Mean Cell Hemoglobin Concentration 33.6 32.0 - 36.5 gm/dL CERNER MILLENNIUM Platelet 274 145 - 370 x10(3)/mc L CERNER MILLENNIUM RDW Standard Deviation 49.2(H) 35.0 - 46.0 fL CERNER MILLENNIUM RDW coefficient of variation 14.5(H) 10.9 - 14.4 % CERNER MILLENNIUM Mean Platelet Volume 10.1 9.0 - 12.0 fL CERNER MILLENNIUM Blood specimen (specimen) 10/22/2012 12:46 PM EST 10/22/2012 12:58 PM EST Narrative Resulting Agency Comment Spec In Lab Analilia Fuchs MD HEMATOLOGY ORDERA BLES CERNER MILLENNIUM documented in this encounter Visit Diagnoses Diagnosis Encounter for long-term (current) use of other medications- Primary Foot pain Pain in limb Rheumatoid arthritis(714.0) Rheumatoid arthritis High risk medication use Encounter for long-term (current) use of other medications documented in this encounter Care Teams Demolition Crane Operator Relationship Specialty Start Date End Date Gloria Espinoza MD HOSPITALIST SERVICES [address] [place] [address] [place] [address] PCP - General 07/25/10 11/08/13 documented as of this encounter
--- OUTSIDE RECORDS SUMMARY | 2024-04-06 02:32 | XMS_ITS | Encounter Summary ---
Author Organization [facility] [place] [address] Care Team Providers Care Quarantine Officer Name Role Phone Gloria Espinoza MD Primary Care Provider [phone] Reason for Referral * Consultation (Routine) - Closed by system - unspecified Specialty Diagnoses / Procedures Referred By Azam corbett Referred To Contact Podiatry Diagnoses Encounter for long-term (current) use of other medications Kandy Espana, RN [facility] [place] [address] Referral ID Status Reason Start Date Expiration Date Visits Requested Visits Authorized [id number] Closed by system - unspecified Consult, Test & Treat 2 01/17/2013 1 1 Encounter Details Date Type Department Care Team (Late st Contact Info) Description 07/21/2012 Orders [place] [address] Kandy Espana, RN [facility] [place] [address] Encounter for long-term (current) use of other medications (Primary Dx) Social History Tobacco Use Types [...] 12:00 PM EDT [place]ointment [place] [address] Scheduled Referrals Name Type Priority Associated Diagnoses Orde r Schedule Referral to Podiatry Outpatient Referral Routine Encounter for long-term (current) use of other medications Ordered: 07/21/2012 documented as of this encounter Results * BUN (07/21/2012 1:14 PM EST) Blood Urea Nitrogen 18 10 - 20 mg/dL CERNER MILLENNIUM Blood specimen (specimen) 07/21/2012 1:14 PM EST 07/21/2012 1:33 PM EST Narrative Resulting Agency Comment Spec In Lab Eusebio Espinosa MD CHEMISTRY ORDERABLES Performing Organization Address City/[facility]/ZIP Co de Phone Number [facility] [email or web address] * Hepatic Function Panel (07/21/2012 1:14 PM EST) Protein, Total 6.7 6.4 - 8.3 gm/dL CERNER MILLENNIUM Albumin 4.2 3.2 - 5.2 gm/dL CERNER MILLENNIUM Aspartate Aminotransferase 24 0 - 39 unit/L CERNER MILLENNIUM Alanine Aminotransferase 22 0 - 55 unit/L CERNER MILLENNIUM Alkaline Phosphatase 69 40 - 120 unit/L CERNER MILLENNIUM Bilirubin, Total 0.5 0.2 - 1.3 mg/dL CERNER MILLENNIUM Bilirubin, Direct 0.1 0.0 - 0.3 mg/dL CERNER MILLENNIUM Blood specimen (specimen) 07/21/2012 1:14 PM EST 07/21/2012 1:33 PM EST Narrative Resulting Agency Comment Spec In Lab Eusebio Espinosa MD CHEMISTRY ORDERABLES [facility] [email or web address] * Creatinine, serum (07/21/2012 1:14 PM EST) [facility] Signature Creatinine 0.93 0.80 - 1.50 mg/dL [facility] Comment: Please note that the pediatric reference intervals supplied above were not validated at [facility]. Results from pediatric patients should be interpreted in conjunction to the patient's age, height and muscle mass. Est Glomerular Filtration Rate >60 >=60 [facility] Comment: The National Kidney Disease Education [...] J Am Soc Nephrol;6:1963-72. Blood specimen (specimen) 07/21/2012 1:14 PM EST 07/21/2012 1:33 PM EST Narrative Resulting Agency Comment Spec In Lab Eusebio Espinosa MD CHEMISTRY ORDERABLES CARLOS DENNIS * (ABNORMAL) CBC (with Diff) (07/21/2012 1:14 PM EST) White Blood Cell 8.3 4.0 - 10.0 x10(3)/mc L CERNER MILLENNIUM Red Blood Cell 5.40 4.63 - 6.08 x10(6)/mc L CERNER MILLENNIUM Hemoglobin 16.8 13.7 - 17.5 gm/dL CERNER MILLENNIUM Hematocrit 50.3 40.0 - 51.0 % CERNER MILLENNIUM Mean Cell Volume 93.1(H) 79.0 - 92.0 fL CERNER MILLENNIUM Mean Cell Hemoglobin 31.1 25.6 - 32.2 pg CERNER MILLENNIUM Mean Cell Hemoglobin Concentration 33.4 32.0 - 36.5 gm/dL CERNER MILLENNIUM Platelet 196 145 - 370 x10(3)/mc L CERNER MILLENNIUM RDW Standard Deviation 47.2(H) 35.0 - 46.0 fL CERNER MILLENNIUM RDW coefficient of variation 13.9 10.9 - 14.4 % CERNER MILLENNIUM Mean Platelet Volume 10.2 9.0 - 12.0 fL CERNER MILLENNIUM Blood specimen (specimen) 07/21/2012 1:14 PM EST 07/21/2012 1:33 PM EST Narrative Resulting Agency Comment Spec In Lab Eusebio Espinosa MD HEMATOLOGY ORDERABLE S CARLOS DENNIS documented in this encounter Visit Diagnoses Diagnosis Encounter for long-term (current) use of other medications- Primary documented in this encounter Care Teams Quarantine Officer Relationship Specialty Start Date End Date Gloria Espinoza MD HOSPITALIST SERVICES [address] [place] [address] [place] [address] PCP - General 07/25/10 11/08/13 documented as of this encounter
--- OUTSIDE RECORDS SUMMARY | 2024-04-06 02:32 | XMS_ITS | Encounter Summary ---
Author Organization [facility] Address [facility] [place] [address] Care Team Providers Care Skilled Nursing Facility Counselor Name Role Phone Gloria Espinoza MD Primary Care Provider [phone] Encounter Details Date Type Department Care Team (Late st Contact Info) Description 04/17/2011 3:14 PM EDT - 04/17/2011 11:59 PM EDT Hospital Encounter XRay at [address] [place] [address] Social History Tobacco Use Types Packs/Day Years [...] Sig Dispensed Refills Start Date End Date omeprazole (PRILOSEC) 40 mg capsule Take 40 mg by mouth daily. MULTIVITAMIN/IRON/FO LIC ACID (DAILY MULTI ORAL) Take 1 tablet by mouth daily. CIS Free Text Med - OTC mositurizing eye drops 11/02/2010 NAPROXEN SODIUM (ALEVE ORAL) Take by mouth 3 times daily. 07/16/2011 doxycycline (ADOXA) 50 mg tablet Take 50 mg by mouth daily. 08/11/2013 predniSONE (DELTASONE) 1 mg tablet Take 2 mg by mouth daily. 07/16/2011 methotrexate 2.5 mg tablet Take 6 tablets by mouth once a week. 78 tablet 3 02/19/2011 07/21/2012 folic acid (FOLVITE) 1 mg tablet Take 1 tablet by mouth 3 times daily. 270 tablet 3 02/19/2011 01/01/2012 etanercept (ENBREL) 25 mg injectionIndications :RA (rheumatoid arthritis) Inject 1 kit subcutaneously twice a week. 24 each 3 01/30/2011 01/01/2012 temazepam (RESTORIL) 30 mg capsule 30 mg, PO, QHS 11/02/2010 06/05/2022 venlafaxine (EFFEXOR XR) 150 mg 24 hr capsule 75mg, PO, Once daily 11/02/2010 013 lovastatin (MEVACOR) 20 mg tablet 10MG = 1 Tablet(s), PO, QPM 11/02/2010 03/09/2013 ERGOCALCIFEROL, VITAMIN D2, (VITAMIN D ORAL) 11/02/2010 01/12/2013 loratadine (CLARITIN) 10 mg tablet 10 MG = 1 Tablet(s), PO, Once daily 11/02/2010 10/03/2011 fluticasone (FLONASE) 50 mcg/Actuation nasal spray 2 [place](s), Nasal, Once daily 11/02/2010 01/12/2013 documented as of this encounter Plan of Treatment Upcoming Encounters Date Type Department Care Team (Late st Contact Info) Description 04/28/2024 12:00 PM EDT Appointment [place] [address] documented as of this encounter Visit Diagnoses Not on filedocumented in this encounter Care Teams Skilled Nursing Facility Counselor Relationship Specialty Start Date End Date Gloria Espinoza MD HOSPITALIST SERVICES [address] [place] [address] [place] [address] PCP - General 07/25/10 11/08/13 documented as of this encounter
--- OUTSIDE RECORDS SUMMARY | 2024-04-06 02:32 | XMS_ITS | Encounter Summary ---
Author Organization [facility] [place] [address] Care Team Providers Care Pit Boss Name Role Phone Kamila Rodney MD Primary Care Provider [phone] Reason for Visit * Reason Comments Other dry mouth x's 2 yrs/ sore tongue X's 6 months. discomfort when eating Encounter Details Date Type Department Care Team (Late st Contact Info) Description 04/16/2012 12:15 PM EDT Office Visit [place] [id number] José Antonio Dean MD [facility] [place] [address] Clinical xerostomia (Primary Dx) Discharge Disposition: Home Social History [...] Sign Reading Time Taken Comments Blood Pressure 139/79 04/16/2012 12:12 PM EDT Pulse 72 04/16/2012 12:12 PM EDT Temperature - - Respiratory Rate - - Oxygen Saturation - - Inhaled Oxygen Concentration - - Weight 90.7 kg (200 lb) 04/16/2012 12:12 PM EDT Height 182.9 cm (6') 04/16/2012 12:12 PM EDT Body Mass Index 27.12 04/16/2012 12:12 PM EDT documented in this encounter Progress Notes * José Antonio Dean MD - 04/16/2012 12:44 PM EDT Subjective: Patient ID: Wesly Ybarra is a 61 y.o. male. [facility] OTOLARYNGOLOGY HEAD AND NECK SURGERY NEW PATIENT EVALUATION Patient seen today for evaluation of his burning tongue and dry mouth PCP: KAMILA RODNEY MD Symptoms started a few years ago. Has tried topical antifungals, hydration, lozenges without too much help Interventions tried as above. Made better by sugar free hard candy Associated symptoms does note some dental problems as well. Some dysphagia for dry foods. No weightloss, bleeding, dyspnea Smoking:no Does have significant RA; on no new meds Past Medical History: Past Medical History Diagnosis Date ??? Cataract ??? Arthritis ??? GERD (gastroesophageal reflux disease) ??? headache ??? Depression Past Surgical History: Past Surgical History Procedure Date ??? Colon surgery 1995 partial removal Patient Active Problem List Diagnoses Date Noted ??? Burning sensation in eye [782.0KY] 04/16/2012 Chronic ??? Osteopenia [733.90X] 01/18/2011 ??? GERD (gastroesophageal reflux disease) [530.81S] 01/18/2011 ??? Hyperlipidemia [272.4S] 01/18/2011 ??? Depression [311L] 01/18/2011 ??? HTN (hypertension) [401.9AF] 01/18/2011 ??? RA (rheumatoid arthritis) [714.0CG] Medications: Outpatient encounter prescriptions as of 04/16/2012 Medication Sig Dispense Refill ??? losartan (COZAAR) 50 mg tablet Take [...] early refill needed. 12 Syringe 3 ??? acetaminophen (TYLENOL EXTRA STRENGTH) 500 mg [...] ERGOCALCIFEROL, VITAMIN D2, (VITAMIN D ORAL) ??? cevimeline (EVOXAC) 30 mg capsule Take 1 capsule by mouth 3 times daily for 30 days. 90 capsuleprn ??? loratadine (CLARITIN) 10 mg tablet Take 1 tablet by mouth daily. 30 tablet 1 ??? fluticasone (FLONASE) 50 mcg/Actuation nasal spray 2 Perham(s), Nasal, Once daily Allergies: Allergies as of 04/16/2012 - Review Complete 04/16/2012 Allergen Reaction Noted ??? Calcium Family History Problem Relation Age of Onset ??? Glaucoma Neg Hx ??? Macular Degen Neg Hx ??? Retinal Detachment Neg Hx ??? Cancer Father liver Review of Systems Constitutional: Negative. HENT: Negative. Eyes: Negative. Respiratory: Negative. Cardiovascular: Negative. Gastrointestinal: Negative. Genitourinary: Negative. Musculoskeletal: Negative. Skin: Negative. Neurological: Negative. Hematological: Negative. Psychiatric/Behavioral: Negative. Objective: Physical Exam Constitutional: He is oriented to person, place, and time. He appears well- developed and well-nourished. HENT: Head: Normocephalic and atraumatic. Right Ear: Tympanic membrane, external ear and ear canal normal. Left Ear: Tympanic membrane, external ear and ear canal normal. Nose: Nose normal. Mouth/Throat: Uvula is midline, oropharynx is clear and moist and mucous membranes are normal. Tongue is very dry and appears very smooth No masses seen or palpated Eyes: Conjunctivae are normal. Pupils are equal, round, and reactive to light. Neck: Normal range of motion. Neck supple. Pulmonary/Chest: Effort normal and breath sounds normal. Musculoskeletal: Normal range of motion. Lymphadenopathy: He has no cervical adenopathy. Neurological: He is alert and oriented to person, place, and time. Skin: Skin is warm and dry. Psychiatric: He has a normal mood and affect. His behavior is normal. Judgment and thought content normal. Assessment and Plan: Xerostomia presumably secondary to his RA or the meds he is on. Seems to be rather problematic given his dental issues Trial of Cevimeline (Evoxac) for a month F/U with phone call to discuss efficacy and if this could be renewed No problem-specific visit notes found for this encounter. documented in this encounter Plan of Treatment Upcoming Encounters Date Type Department Care Team (Late st Contact Info) Description 04/28/2024 12:00 PM EDT Appointment [place] [phone] documented as of this encounter Visit Diagnoses Diagnosis Clinical xerostomia- Primary Disturbance of salivary secretion documented in this encounter Care Teams Pit Boss Relationship Specialty Start Date End Date Kamila Rodney MD [facility] [address] [place] [address] [place] [address] PCP - General 07/25/10 11/08/13 documented as of this encounter
--- OUTSIDE RECORDS SUMMARY | 2024-04-06 02:32 | XMS_ITS | Encounter Summary ---
Author Organization [facility] [place] [address] Care Team Providers Care Toilet And Laundry Soap Supervisor Name Role Phone Gloria Espinoza MD Primary Care Provider [phone] Reason for Visit * Reason Comments Eye Problem Patient here for 2 m research [facility] lid check Encounter Details Date Type Department Care Team (Late st Contact Info) Description 06/17/2012 10:00 AM EDT Follow-[place] [address] Uriah Odonnell MD [facility] [place] [address] Tom Liang MD [facility] [place] [address] Burning sensation in eye Discharge Disposition: Home Social History Tobacco Use [...] as of this encounter Progress Notes * Tom Liang MD - 06/17/2012 10:27 AM EDT Blepharitis- doing better with regular cleanings. Suggest AT tears 3-4 x day EVERY day,. Cont care with dr del rio. prn documented in this encounter Nursing Notes * 06/17/2012 10:00 AM EDT >> TOM LIANG MD oscar Jun 17, 2012 10:48 AM Blepharitis f/u and dry eye. sxs were 9/10. Now severity varies from 5-10 depends on day. Refresh drops help Using 2-3 times /day. Uses them sporadically. >> LESTER Webb oscar Jun 17, 2012 10:17 AM 61 y.o., C/O Patient here for lid check. Patient feels lids may be a little better. Irritation on some days can be a 10 and other days 5-6. Vision may be getting a little worse. Patient using warm compresses bid, OU and lid scrubs at night. DROPS:Refresh bid, OU HX: RA (rheumatoid arthritis) Burning sensation in eye -Asthma or -COPD documented in this encounter Plan of Treatment Upcoming Encounters Date Type Department Care Team (Late st Contact Info) Description 04/28/2024 12:00 PM EDT Appointment [place] [address] documented as of this encounter Visit Diagnoses Diagnosis Burning sensation in eye Other ill-defined disorder of eye documented in this encounter Care Teams Toilet And Laundry Soap Supervisor Relationship Specialty Start Date End Date Gloria Espinoza MD [facility] [address] [place] [address] [place] [address] PCP - General 07/25/10 11/08/13 documented as of this encounter
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
--- OUTSIDE RECORDS SUMMARY | 2024-04-06 02:32 | XMS_ITS | Encounter Summary ---
[place] [address] Care Team Providers Care Cell Builder Name Role Phone Gloria Espinoza MD Primary Care Provider Reason for Visit * Reason Onset Date Comments Other 02/04/2013 enbrel Encounter Details Date Type Department Care Team (Late Contact Info) Description 02/04/2013 [place] [address] Emily England RN Other (enbrel) Social History Tobacco Use Types Packs/Day Years [...] Telephone Encounter - Emily England RN - 02/04/2013 10:26 AM EDT Called in Wesly's Enbrel rx, specified patient wants prefilled syringes. documented in this encounter Plan of Treatment Upcoming Encounters Date Type Department Care Team (Late Contact Info) Description 04/28/2024 12:00 PM EDT [place] [address] documented as of this encounter Visit Diagnoses Not on filedocumented in this encounter Care Teams Cell Builder Relationship Specialty Start Date End Date Gloria Espinoza MD [facility] [address] [place] [address] [place] [address] PCP - General 07/25/10 11/08/13 documented as of this encounter
--- OUTSIDE RECORDS SUMMARY | 2024-04-06 02:32 | XMS_ITS | Encounter Summary ---
Author Organization [facility] [place] [address] Care Team Providers Care Machine Clothing Worker Name Role Phone Gloria Espinoza MD Primary Care Provider [phone] Reason for Visit * Reason Onset Date Comments Advice Only 02/05/2011 Encounter Details Date Type Department Care Team (Late st Contact Info) Description 02/05/2011 Telephone [place] [address] Kandy Espana, RN [facility] [place] [address] Advice Only Social History Tobacco Use Types Packs/Day [...] Miscellaneous Notes * Telephone Encounter - Kandy Espana APRN - 02/05/2011 9:09 AM EDT [facility] DXA report DOS: 02/02/2011 FINDINGS: T score: -2.0 LS and T score: -0.7 left hip total CONCLUSION: Consistent w/osteopenia. Vertebral compression FX T 12. Plan: Review w/patient at follow up. documented in this encounter Plan of Treatment Upcoming Encounters Date Type Department Care Team (Late st Contact Info) Description 04/28/2024 12:00 PM EDT Appointment [place] [address] documented as of this encounter Visit Diagnoses Not on filedocumented in this encounter Care Teams Machine Clothing Worker Relationship Specialty Start Date End Date Gloria Espinoza MD [facility] [address] [place] [address] [place] [address] PCP - General 07/25/10 11/08/13 documented as of this encounter
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
--- OUTSIDE RECORDS SUMMARY | 2024-04-06 02:32 | XMS_ITS | Encounter Summary ---
Author Organization [facility] [place] [address] Care Team Providers Care Recyclable Materials Collector Name Role Phone Gloria Espinoza MD Primary Care Provider Reason for Visit * Reason Onset Date Comments Prior Authorization 01/11/2012 ENBREL Encounter Details Date Type Department Care Team (Late st Contact Info) Description 01/11/2012 Telephone [place] [address] Jarvis Temple, RN [facility] [place] [address] Prior Authorization (ENBREL) Social History Tobacco Use Types Packs/Day Years Used Date Smoking Tobacco: Never Alcohol Use Standard Drinks/Week Comments Not Asked 0 (1 standard drink = 0.6 oz pur e alcohol) Sex and Gender Information Value Date Recorded Sex Assigned at Not on file Gender Identity Not on file Sexual Orientation Not on file documented as of this encounter Miscellaneous Notes * Telephone Encounter - Primo Ross Joselin - 01/11/2012 8:25 AM EDT Medication Prior Authorization RHEUMATOLOGY JARVIS TEMPLE Medication name/dose/directions: ENBREL 50MG INJECT SQ Q ONCE A WEEK Rationale for request: RHEUMATOID ARTHRITIS Health plan: [employer] ID# [id number] Authorizing outside medical sales representative name: APPROVAL FAXED TO OFFICE Faxed to health plan on: 01/08/12 Health plan decision: Approved Quantity approved: Authorization number: Start date: 01/08/12 End date: 01/07/13 Patient notified? yes Pharmacy notified? yes documented in this encounter Plan of Treatment Upcoming Encounters Date Type Department Care Team (Late st Contact Info) Description 04/28/2024 12:00 PM EDT Appointment [place] [address] documented as of this encounter Visit Diagnoses Not on filedocumented in this encounter Care Teams Recyclable Materials Collector Relationship Specialty Start Date End Date Gloria Espinoza MD HOSPITALIST SERVICES [address] [place] [address] [place] [address] PCP - General 07/25/10 11/08/13 documented as of this encounter
--- OUTSIDE RECORDS SUMMARY | 2024-04-06 02:32 | XMS_ITS | Encounter Summary ---
Author Organization [facility] [place] [address] Care Team Providers Care Systems Administrator Name Role Phone Gloria Espinoza MD Primary Care Provider [phone] Encounter Details Date Type Department Care Team (Late st Contact Info) Description 01/23/2011 Orders [place] [phone] Kandy Espana, RN [facility] [place] [address] Osteopenia (Primary Dx) Social History Tobacco Use Types [...] 12:00 PM EDT Appointment [place] [address] documented as of this encounter Visit Diagnoses Diagnosis Osteopenia- Primary Disorder of bone and cartilage, unspecified documented in this encounter Care Teams Systems Administrator Relationship Specialty Start Date End Date Gloria Espinoza MD HOSPITALIST SERVICES [address] [place] [address] [address] [place] [id number] PCP - General 07/25/10 11/08/13 documented as of this encounter
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
--- OUTSIDE RECORDS SUMMARY | 2024-04-06 02:32 | XMS_ITS | Encounter Summary ---
[place] [address] Care Team Providers Care Publication Editor Name Role Phone Gloria Espinoza MD Primary Care Provider Encounter Details Date Type Department Care Team (Latest Contact Info) Description 06/16/2013 1:53 PM EDT - 06/16/2013 11:59 PM EDT Hospital Encounter [place] [address] SCHEDULE 1, PFT Gloria Espinoza MD [address] [place] [address] [place] [address] Cough (Primary Dx) Discharge Disposition: Home Social History [...] as of this encounter Procedure Notes * Lacho Durham MD - 06/16/2013 4:52 PM EDTAssociated Order(s): PULMONARY FUNCTION TEST Spirometry: ( ) Normal spirometry ( ) Obstructive ventilatory defect ( ) mild (FEV1 % pred >70%), ( ) moderate (60-69), ( ) moderately severe (50-59) ( ) severe (35-49), ( ) very severe (<35) (x ) Suspected restrictive defect (reduced FVC with normal FEV1/FVC), no obstruction ( ) Unable to rule out concomitant restrictive defect ( reduced FVC and FEV1/FVC). Bronchodilator reponse: ( )Yes ( )No Lung Volumes: ( ) No evidence of restrictive ventilatory defect ( Normal TLC ) ( ) Restrictive ventilatory defect ( TLC <LLN) ( ) air trapping Diffusing Capacity: (x ) Normal diffusing capacity ( ) Reduced diffusing capacity ( ) mild , ( ) moderate (40-60% pred), ( ) severe Pulse oximetry: Resting Room Air SpO2 95 % Desaturation during Ft ambulation ( ) Yes ( ) No Comment: Lacho Durham MD Pulmonary/Critical Care [facility] documented in this encounter Plan of Treatment Upcoming Encounters Date Type Department Care Team (Late st Contact Info) Description 04/28/2024 12:00 PM EDT Appointment [place] [address] documented as of this encounter Procedures Procedure Name Priority Date/Time Associated Diagnosis Comments COMMON PULMONARY FUNCTION TEST Routine 06/16/2013 4:53 PM EDT Cough documented in this encounter Results * Pulmonary Function Testing (06/16/2013 4:53 PM EDT) Narrative Lacho Durham MD - 06/16/2013 4:53 PM EDT Lacho Durham MD ? 06/16/2013 ??4:53 PM Spirometry: ( ??) Normal spirometry ( ??) Obstructive ventilatory defect ( ??) mild (FEV1 % pred >70%), ( ??) moderate (60-69), ( ??) moderately severe (50-59) ( ??) severe (35-49), ( ??) very severe (<35) (x ??) Suspected restrictive defect (reduced FVC with normal FEV1/FVC), no obstruction ( ??) Unable to rule out concomitant restrictive defect ( reduced FVC and FEV1/FVC). ?? Bronchodilator reponse: ( ??)Yes ??( ??)No Lung Volumes: ( ??) No evidence of restrictive ventilatory defect ( Normal TLC ) ( ??) Restrictive ventilatory defect ( TLC <LLN) ( ??) air trapping Diffusing Capacity: (x ??) Normal diffusing capacity ( ??) Reduced diffusing capacity ??( ??) mild , ( ??) moderate (40-60% pred), ( ??) severe Pulse oximetry: Resting Room Air SpO2 ??95 ?? % Desaturation during ??Ft ambulation ( ?? ) Yes ( ?? ) No Comment: Lacho Durham MD Pulmonary/Critical Care [facility] Procedure Note Lacho Durham MD - 06/16/2013 4:52 PM EDT Spirometry: ( ) Normal spirometry ( ) Obstructive ventilatory defect ( ) mild (FEV1 % pred >70%), ( ) moderate (60-69), ( ) moderatelysevere (50-59) ( ) severe (35-49), ( ) very severe (<35) (x ) Suspected restrictive defect (reduced FVC with normal FEV1/FVC), noobstruction ( ) Unable to rule out concomitant restrictive defect ( reduced FVC andFEV1/FVC). Bronchodilator reponse: ( )Yes ( )No Lung Volumes: ( ) No evidence of restrictive ventilatory defect ( Normal TLC ) ( ) Restrictive ventilatory defect ( TLC <LLN) ( ) air trapping Diffusing Capacity: (x ) Normal diffusing capacity ( ) Reduced diffusing capacity ( ) mild , ( ) moderate (40-60% pred), ( ) severe Pulse oximetry: Resting Room Air SpO2 95 % Desaturation during Ft ambulation ( ) Yes ( ) No Comment: Lacho Durham MD Pulmonary/Critical Care [facility] Eusebio Espinosa MD PFT ORDERABLES documented in this encounter Visit Diagnoses Diagnosis Cough- Primary documented in this encounter Care Teams Publication Editor Relationship Specialty Start Date End Date Gloria Espinoza MD HOSPITALIST SERVICES [address] [place] [address] [place] [address] PCP - General 07/25/10 11/08/13 documented as of this encounter
--- OUTSIDE RECORDS SUMMARY | 2024-04-06 02:32 | XMS_ITS | Encounter Summary ---
Author Organization [facility] [place] [address] Care Team Providers Care Turning Machine Operator Name Role Phone Gloria Espinoza MD Primary Care Provider [phone] Encounter Details Date Type Department Care Team (Late st Contact Info) Description 01/30/2011 Orders [place] [phone] Kandy Espana, RN [facility] DR [place] [address] RA (rheumatoid arthritis) (Primary Dx) Social History Tobacco Use Types [...] 12:00 PM EDT Appointment [place] [address] documented as of this encounter Visit Diagnoses Diagnosis RA (rheumatoid arthritis)- Primary Rheumatoid arthritis documented in this encounter Care Teams Turning Machine Operator Relationship Specialty Start Date End Date Gloria Espinoza MD HOSPITALIST SERVICES [address] [place] [address] [address] [place] [address] PCP - General 07/25/10 11/08/13 documented as of this encounter
--- OUTSIDE RECORDS SUMMARY | 2024-04-06 02:32 | XMS_ITS | Encounter Summary ---
Author Organization [facility] [place] [address] Care Team Providers Care Engine Monitor Name Role Phone Gloria Espinoza MD Primary Care Provider Reason for Referral * Physical Therapy (Routine) - Closed by system - unspecified Specialty Diagnoses / Procedures Referred By Contac t Referred To Contact Physical Therapy Diagnoses Knee pain Jarvis Espana, RN [facility] [place] [address] Referral ID Status Reason Start Date Expiration Date Visits Requested Visits Authorized [id number] Closed by system - unspecified Evaluate and Treat 04/17/2011 10/14/2011 1 1 Reason for Visit * Reason Comments Rheumatoid Arthritis Encounter Details Date Type Department Care Team (Late st Contact Info) Description 04/17/2011 2:20 PM EDT [place] [address] Jarvis Espana, RN [facility] [place] [address] Encounter for long-term (current) use of other medications (Primary Dx); Knee pain; Rheumatoid arthritis; Osteopenia Discharge Disposition: Home Social History Tobacco Use [...] Sign Reading Time Taken Comments Blood Pressure 138/81 04/17/2011 2:34 PM EDT Pulse 61 04/17/2011 2:34 PM EDT Temperature 36.9 ??C (98.4 ??F) 04/17/2011 2:34 PM ED T Respiratory Rate - - Oxygen Saturation 98% 04/17/2011 2:34 PM EDT Inhaled Oxygen Concentration - - Weight 89.8 kg (198 lb) 04/17/2011 2:34 PM EDT Height 182.9 cm (6') 04/17/2011 2:34 PM EDT Body Mass Index 26.85 04/17/2011 2:34 PM EDT documented in this encounter Patient Instructions * Patient Instructions* Jarvis Espana APRN - 04/17/2011 8:00 PM EDT Preliminary Report -> BILATERAL KNEE RADIOGRAPH, 04/17/11: INDICATION: Knee pain and stiffness. COMPARISON: 02/20/06. TECHNIQUE: AP, lateral, and axial views of bilateral knees. FINDINGS: Minimal medial joint space narrowing is noted. There is bilateral patellofemoral spurring, with minute joint effusion. There is no acute fracture or dislocation. IMPRESSION IMPRESSION: Stable mild osteoarthritis of bilateral knees. ASSESSMENT: Rheumatoid arthritis, bilateral knee pain and stiffness; chronic steroid use, osteopenia. PLAN: 1. Continue Enbrel 50 mg sc weekly, MTX weekly and folic acid daily. 2. DISCONTINUE Aleve. 3. Trial acetaminophen 1000 mg po QAM; monitor for GI upset. 4. Bilateral knee xray - PT ([place] -> strengthening) 5. Office contact for joint swelling/increased pain or functional limitations. 6. Discussion related to osteoporosis prevention strategies, dietary intake, supplementation with vitamin D (no calcium due to kidney stones), ongoing weightbearing activity and exercise. 7. Indications for holding Enbrel and methotrexate reviewed. 8. Lab results reviewed - CRP improved when compared to prior OV. 9. Followup planned in 12 weeks, sooner for concerns, questions or increased signs/symptoms. documented in this encounter Progress Notes * Jarvis Espana APRN - 04/17/2011 8:26 PM EDTAddended by: JARVIS ESPANA on: 04/17/2011 Modules accepted: Orders * Jarvis Espana APRN - 04/17/2011 2:57 PM EDT Established Patient Follow Up - Rheumatology Clinic Wesly Ybarra is a 60-year-old male seen for ongoing evaluation and management of rheumatoid arthritis. He is accompanied by his sister. INTERVAL HISTORY: When last seen, Mr. Ybarra reported an interruption in Enbrel therapy related to insurance issues and had taken first weekly (divided) dose. Continued methotrexate 15 mg by mouth once weekly, folic acid 2-3 mg, Medrol 2 mg, and Tylenol infrequently. Reported persistent swelling and stiffness in hands, wrists, knees and MTPs with decreased capacity for walking, routine activities. Has continued Enbrel therapy 25 mg sc twice weekly, MTX 15 mg po once weekly and folic acid. Has added Aleve 2 tabs TID. Reports persistent and long-standing low back, stiffness and pain without weakness or numbness, bilateral knee stiffness and pain (lateral joint line), no prolonged AM hand stiffness, and no joint swelling. Reports intermittent heartburn symptoms. Continues to be followed by [employer] for dry eyes - using wash for crusting of lashes and unspecified drops. Reports no fever, chills, eye pain, visual changes, oral ulcers, + dry mouth, painful or difficult swallowing, dry cough, diarrhea or skin rash. Appetite good and weight stable. No recurrent illness or infection. PHYSICAL EXAMINATION: Constitutional: Pleasant adult male, in no acute distress. HEENT: Normocephalic, atraumatic. Eyes - sclera clear. Oral mucous membranes moist and intact; no thyromegaly, anterior or cervical lymphadenopathy, submandibular or parotid gland enlargement. Chest: Heart rate and rhythm regular; no murmur or extra sounds. Lungs - clear to auscultation; without wheezing, rales, or rhonchi. Musculoskeletal: Muscle mass bilaterally symmetric. Joint Exam: Neck ROM functional and nontender. Bilateral shoulder ROM functional and nontender. Elbow ROM ful, nontender; no synovitis, extensor surface nodules, or effusion. Wrist ROM functional and nontender bilaterally. MCPs and PIPs - th ickened without swelling. Makes a near complete fist and claw. Hip ROM functional; arises seated tostanding unassisted. Bilateral knees - no effusion, erythema, or warmth. ROM functional; incompleteextension at LEFT. Bilateral ankle ROM functional, tender; no swelling. MTPs tender to compression.Skin: Intact without rash. Recent Results (from the past 24 hour(s)) CBC (WITH DIFF) Component Value Range ??? WBC 10.1 (*) 4.0 - 10.0 (x10(3)/mcL) ??? RBC 4.74 4.63 - 6.08 (x10(6)/mcL) ??? Hemoglobin 14.9 13.7 - 17.5 (gm/dL) ??? Hematocrit 42.9 40.0 - 51.0 (%) ??? MCV 90.5 79.0 - 92.0 (fL) ??? MCH 31.4 25.6 - 32.2 (pg) ??? MCHC 34.7 32.0 - 36.5 (gm/dL) ??? Platelets 229 145 - 370 (x10(3)/mcL) ??? RDWSD 49.9 (*) 35.0 - 46.0 (fL) ??? RDWCV 15.2 (*) 10.9 - 14.4 (%) ??? MPV 9.5 9.0 - 12.0 (fL) HIGH SENSITIVITY CRP Component Value Range ??? CRP High Sens 3.2 (mg/L) BUN Component Value Range ??? BUN 14 10 - 20 (mg/dL) HEPATIC FUNCTION PANEL Component Value Range ??? Total Protein 6.4 6.4 - 8.3 (gm/dL) ??? Albumin 4.1 3.2 - 5.2 (gm/dL) ??? AST 22 0 - 39 (unit/L) ??? ALT 24 0 - 55 (unit/L) ??? Alk Phos 66 40 - 120 (unit/L) ??? Total Bilirubin 0.3 0.2 - 1.3 (mg/dL) ??? Bili, Direct 0.1 0.0 - 0.3 (mg/dL) CREATININE, SERUM Component Value Range ??? Creatinine 0.93 0.80 - 1.50 (mg/dL) ? ? Estimated GFR >60 >=60 REFLEX LAB-A-DIFF Component Value Range ??? Neutrophils % 48.7 34.0 - 71.0 (%) ??? Neutr Abs (ANC) 4.94 1.50 - 6.30 (x10(3)/mcL) ??? Lymphocytes % 39.9 19.0 - 53.0 (%) ??? Lymphocytes Abs 4.0 (*) 1.0 - 3.6 (x10(3)/mcL) ??? Monocytes % 9.2 4.0 - 13.0 (%) ??? Monocyte Abs 0.9 0.2 - 1.0 (x10(3)/mcL) ??? Eosinophils % 1.7 0.0 - 7.0 (%) ??? Eosinophils Abs 0.2 0.0 - 0.5 (x10(3)/mcL) ??? Basophils % 0.3 0.0 - 2.0 (%) ??? Basophils Abs 0.0 0.0 - 0.2 (x10(3)/mcL) ??? Immature Gran % 0.20 0.00 - 0.66 (%) ??? Brianna Gran Abs 0.02 0.00 - 0.05 (x10(3)/mcL) Preliminary Report -> BILATERAL KNEE RADIOGRAPH, 04/17/11: INDICATION: Knee pain and stiffness. COMPARISON: 02/20/06. TECHNIQUE: AP, lateral, and axial views of bilateral knees. FINDINGS: Minimal medial joint space narrowing is noted. There is bilateral patellofemoral spurring, with minute joint effusion. There is no acute fracture or dislocation. IMPRESSION IMPRESSION: Stable mild osteoarthritis of bilateral knees. ASSESSMENT: Rheumatoid arthritis, bilateral knee pain and stiffness; chronic steroid use, osteopenia. PLAN: 1. Continue Enbrel 50 mg sc weekly, MTX weekly and folic acid daily. 2. DISCONTINUE Aleve. 3. Trial acetaminophen 1000 mg po QAM; monitor for GI upset. 4. Bilateral knee xray - PT ([place] -> strengthening) 5. Office contact for joint swelling/increased pain or functional limitations. 6. Discussion related to osteoporosis prevention strategies, dietary intake, supplementation with vitamin D (no calcium due to kidney stones), ongoing weightbearing activity and exercise. 7. Indications for holding Enbrel and methotrexate reviewed. 8. Lab results reviewed - CRP improved when compared to prior OV. 9. Followup planned in 8-10 weeks, sooner for concerns, questions or increased signs/symptoms. documented in this encounter Plan of Treatment Upcoming Encounters Date Type Department Care Team (Late st Contact Info) Description 04/28/2024 12:00 PM EDT [place]ment [place] [address] Scheduled Referrals Name Type Priority Associated Diagnoses Orde r Schedule REFERRAL TO PHYSICAL THERAPY Outpatient Referral Routine Knee pain Ordered: 04/17/2011 documented as of this encounter Procedures Procedure Name Priority Date/Time Associated Diagnosis Comments DIFFERENTIAL, AUTOMATED Routine 04/17/2011 1:01 PM EDT CREATININE Routine 04/17/2011 1:01 PM EDT Encounter for long-term (current) use of other medications CBC (WITH DIFF) Routine 04/17/2011 1:01 PM EDT Encounter for long-term (current) use of other medications CRP, CARDIAC RISK (HS CRP) Routine 04/17/2011 1:01 PM EDT Encounter for long-term (current) use of other medications BUN Routine 04/17/2011 1:01 PM EDT Encounter for long-term (current) use of other medications HEPATIC FUNCTION PANEL Routine 04/17/2011 1:01 PM EDT Encounter for long-term (current) use of other medications documented in this encounter Results * High Sensitivity CRP (07/16/2011 2:44 PM EST) [facility] C-Reactive Protein High Sensitivity 1.8 mg/L [facility] Comment: Interpretations: 1) For cardiac risk assessment, [...] prevention. ??Circulation 2003; [id number] Blood specimen (specimen) 07/16/2011 2:44 PM EST 07/16/2011 3:07 PM EST Doe Obrien MD CHEMISTRY ORDERAB LES CARLOS NEGRETEDESTINIIUM * (ABNORMAL) REFLEX LAB-A-DIFF (04/17/2011 1:01 PM EDT) Neutrophil % 48.7 34.0 - 71.0 % CERNER MILLENNIUM Neutrophil Absolute 4.94 1.50 - 6.30 x10(3)/mc L CERNER MILLENNIUM Lymph % 39.9 19.0 - 53.0 % CERNER MILLENNIUM Lymphocytes Abs 4.0(H) 1.0 - 3.6 x10(3)/mc L CERNER MILLENNIUM Monocyte % 9.2 4.0 - 13.0 % CERNER MILLENNIUM Monocyte Abs 0.9 0.2 - 1.0 x10(3)/mc L CERNER MILLENNIUM Eos % 1.7 0.0 - 7.0 % CERNER MILLENNIUM Eosinophils Abs 0.2 0.0 - 0.5 x10(3)/mc L CERNER MILLENNIUM Basophil % 0.3 0.0 - 2.0 % CERNER MILLENNIUM Baso Absolute 0.0 0.0 - 0.2 x10(3)/mc L CERNER MILLENNIUM Immature Gran % 0.20 0.00 - 0.66 % CERNER MILLENNIUM Comment: Immature granulocytes(IG's)percentage and absolute count will include metamyelocytes, myelocytes, and promyelocytes. Blood smears from CBCs yielding IG's will be scanned manually for concordance. If this scan disagrees with the automated IG or if promyelocytes are noted, a manual differential will be performed. Immature Gran Absolute 0.02 0.00 - 0.05 x10(3)/mc L CERNER MILLENNIUM Blood specimen (specimen) 04/17/2011 1:01 PM EDT 04/17/2011 1:15 PM EDT Doe Obrien MD HEMATOLOGY ORDERA [facility] CERFRANKIE WALKERIUM * Creatinine, serum (04/17/2011 1:01 PM EDT) [...] MD CHEMISTRY ORDERAB LES Performing Organization Address [facility] Co de Phone Number CERNER MILLENNIUM * Hepatic function panel (04/17/2011 1:01 [...] MD CHEMISTRY ORDERAB LES Performing Organization Address [facility] Co de Phone Number CERNER MILLENNIUM * BUN (04/17/2011 1:01 PM EDT) Blood Urea Nitrogen 14 10 - 20 mg/dL CERNER MILLENNMARVA Blood specimen (specimen) 04/17/2011 1:01 PM EDT 04/17/2011 1:15 PM EDT Doe Obrien MD CHEMISTRY ORDERAB LES Performing Organization Address [facility]/ZIP Co de Phone Number CARLOS DENNIS * CRP - High sensitivity (04/17/2011 1:01 PM EDT) C-Reactive Protein High Sensitivity 3.2 mg/L CARLOS DENNIS Comment: Interpretations: 1) For cardiac risk assessment, [...] prevention. ??Circulation 2003; [id number] Blood specimen (specimen) 04/17/2011 1:01 PM EDT 04/17/2011 1:15 PM EDT Doe Obrien MD CHEMISTRY ORDERAB LES Performing Organization Address [facility] Co de Phone Number CARLOS DENNIS * (ABNORMAL) CBC (04/17/2011 1:01 PM EDT) [...] MD HEMATOLOGY ORDERA BLES Performing Organization Address [facility] Co de Phone Number CARLOS DENNIS documented in this encounter Visit Diagnoses Diagnosis Encounter for long-term (current) use of other medications- Primary Knee pain Pain in joint, lower leg Rheumatoid arthritis(714.0) Rheumatoid arthritis Osteopenia Disorder of bone and cartilage, unspecified documented in this encounter Care Teams Engine Monitor Relationship Specialty Start Date End Date Gloria Espinoza MD [facility] [address] [place] [address] [place] [address] PCP - General 07/25/10 11/08/13 documented as of this encounter
--- OUTSIDE RECORDS SUMMARY | 2024-04-06 02:32 | XMS_ITS | Encounter Summary ---
Author Organization [facility] [place] [address] Care Team Providers Care Police Communications Dispatcher Name Role Phone Gloria Espinoza MD Primary Care Provider Reason for Referral * Occupational Therapy (Routine) - Closed by system - unspecified Specialty Diagnoses / Procedures Referred By Contmabel t Referred To Contact Occupational Therapy Diagnoses RA (rheumatoid arthritis) Injury, hand Kandy Espana, [facility] [place] [address] Referral ID Status Reason Start Date Expiration Date Visits Requested Visits Authorized [id number] Closed by system - unspecified Evaluate and Treat 01/01/2012 06/29/2012 1 1 Reason for Visit * Reason Comments Follow-up Encounter Details Date Type Department Care Team (Late st Contact Info) Description 01/01/2012 9:45 AM EDT [place] [address] Kandy Espana, RN [facility] [place] [address] RA (rheumatoid arthritis) (Primary Dx); Injury, hand; Encounter for long-term (current) use of other [...] Sign Reading Time Taken Comments Blood Pressure 139/92 01/01/2012 9:38 AM EDT Pulse 80 01/01/2012 9:38 AM EDT Temperature - - Respiratory Rate 20 01/01/2012 9:38 AM EDT Oxygen Saturation 96% 01/01/2012 9:38 AM EDT Inhaled Oxygen Concentration - - Weight 99.8 kg (220 lb) 01/01/2012 9:38 AM EDT Height 185.4 cm (6' 1) 01/01/2012 9:38 AM EDT Body Mass Index 29.03 01/01/2012 9:38 AM EDT documented in this encounter Patient Instructions * Patient Instructions* Kandy Espana APRN - 01/01/2012 10:53 AM EDT 1. Referral to Occupational Therapy - referral provided ([facility] -> [place]). S/p LEFT hand injury -> functional impairment. 2. Advised urgent evaluation in future for acute injury - potential benefit and diminished risk of functional impairment. 3. Continue current plan of care for RA, substituting enbrel SURECLIK pen for 25 mg/twice weekly syringe. 4. Demonstration/return demonstration and patient verbalization of [...] Progress Notes * Kandy Espana APRN - 01/01/2012 10:25 AM EDT Established Patient Follow Up - [...] no joint swelling, pain or sustained AM stiffness, except left D 1 hand*. Continues methotrexate 15 mg po weekly, folic acid 1 mg po daily and enbrel 25 mg sc twice weekly. Was using a geraldine tool with maple sugaring in early October. Tool required significant force/grasp. In pooling trigger, felt sharp pain along dorsal aspect of left hand at MCP and had immediate swelling, pain and bruising. Did not seek evaluation, limited activity over time and gradually noted less pain and swelling and more ability to use the hand. Now can do most things, reports no pain but can't fully make a fist. Denies no limitations in self-care or diversional activities Ongoing use of tylenol vs NSAID with resolution of heartburn symptoms. Continues using wash for crusting of lashes. Continues sierra pot and nasal spray for sinus dryness, but no infections this winter. Received influenza vaccine. Reports no fever, chills, [...] once a week. 78 tablet 3 ??? DISCONTD: etanercept (ENBREL) 25 mg injection Inject 1 kit subcutaneously twice a week. 24 each3 ??? CIS Free Text Med - OTC mositurizing eye drops ??? temazepam (RESTORIL) 30 mg capsule 30 mg, PO, QHS ??? venlafaxine (EFFEXOR XR) 150 mg 24 hr capsule 75mg, PO, Once daily ??? lovastatin (MEVACOR) 20 mg tablet 10MG = 1 Tablet(s), PO, QPM ??? ERGOCALCIFEROL, VITAMIN D2, (VITAMIN D ORAL) ??? fluticasone (FLONASE) 50 mcg/Actuation nasal spray 2 [place](s), Nasal, Once daily Allergies Allergen Reactions ??? Calcium kidney stones PHYSICAL EXAMINATION: Filed Vitals: 01/01/12 0938 BP: 139/92 Pulse: 80 Resp: 20 Height: 185.4 cm (6' 1) Weight: 99.791 kg (220 lb) SpO2: 96% [...] bilaterally. MCPs and PIPs - thickened without swelling, except left D 2 with fullness at MCP and PIP joints, + ability to extend and flex digit against resistance, but unable ot fully, actively or passively flex D 2 (LEFT hand). CMC tenderness without swelling. Makes a near completefist and claw, other than LEFT D 2. Hip ROM functional; arises seated to standing independently. Bilateral knees - no effusion, erythema, or warmth. ROM functional; incomplete extension at LEFT. Bilateral ankle ROM functional, tender; no swelling. MTPs nontender to compression. Skin: Intact withoutrash, telangiectasias, + nail dystrophy. ASSESSMENT: Rheumatoid arthritis, LEFT hand injury, osteopenia. PLAN: 1. Referral to Occupational Therapy - referral provided ([facility] -> [place]). S/p LEFT hand injury -> functional impairment. 2. Advised urgent evaluation in future for acute injury - potential benefit and diminished risk of functional impairment. 3. Continue current plan of care for RA, substituting enbrel SURECLIK pen for 25 mg/twice weekly syringe. 4. Demonstration/return demonstration and patient verbalization of [...] 12:00 PM EDT [place] [address] Scheduled Referrals Name Type Priority Associated Diagnoses Order Schedule REFERRAL TO OCCUPATIONAL THERAPY Outpatient Referral Routine RA (rheumatoid arthritis) Injury, hand Ordered: 01/01/2012 documented as of this encounter Procedures Procedure Name Priority Date/Time Associated Diagnosis Comments DIFFERENTIAL, AUTOMATED Routine 01/01/2012 11:03 AM EDT CREATININE Routine 01/01/2012 11:03 AM EDT Encounter for long-term (current) use of other medications SEDIMENTATION RATE Routine 01/01/2012 11 :03 AM EDT Rheumatoid arthritis CBC (WITH DIFF) Routine 01/01/2012 11:03 AM EDT Encounter for long-term (current) use of other medications CRP, CARDIAC RISK (HS CRP) Routine 01/01/2012 11:03 AM EDT Encounter for long-term (current) use of other medications BUN Routine 01/01/2012 11:03 AM EDT Encounter for long-term (current) use of other medications HEPATIC FUNCTION PANEL Routine 2 11:03 AM EDT Encounter for long-term (current) use of other medications documented in this encounter Results * (ABNORMAL) DIFFERENTIAL, AUTOMATED (01/01/2012 11:03 AM EDT) Neutrophil % 44.9 34.0 - 71.0 % CERNER MILLENNIUM Neutrophil Absolute 4.32 1.50 - 6.30 x10(3)/mc L CERNER MILLENNIUM Lymph % 43.7 19.0 - 53.0 % CERNER MILLENNIUM Lymphocytes Abs 4.2(H) 1.0 - 3.6 x10(3)/mc L CERNER MILLENNIUM Monocyte % 8.4 4.0 - 13.0 % CERNER MILLENNIUM Monocyte Abs 0.8 0.2 - 1.0 x10(3)/mc L CERNER MILLENNIUM Eos % 2.6 0.0 - 7.0 % CERNER MILLENNIUM Eosinophils [...] x10(3)/mc L CERNER MILLENNIUM Blood specimen (specimen) 01/01/2012 11:03 AM EDT 01/01/2012 11:05 AM EDT Luke Metcalf MD HEMATOLOGY ORDERABL ES CARLOS DENNIS * Creatinine, serum (01/01/2012 11:03 AM EDT) Creatinine 0.96 0.80 - 1.50 mg/dL CARLOS DENNIS Est Glomerular Filtration Rate >60 >=60 CARLOS DENNIS Comment: The National Kidney Disease Education Program [...] MD CHEMISTRY ORDERAB LES Performing Organization Address [facility] Co de Phone Number [facility] MILLENNIUM * Hepatic function panel (01/01/2012 11:03 [...] MD CHEMISTRY ORDERAB LES Performing Organization Address [facility] Co de Phone Number CERNER MILLENNIUM * BUN (01/01/2012 11:03 AM EDT) Blood Urea Nitrogen 18 10 - 20 mg/dL CERNER MILLENNIUM Blood specimen (specimen) 01/01/2012 11:03 AM EDT 01/01/2012 11:05 AM EDT Narrative Resulting Agency Comment Spec In Lab Doe Obrien MD CHEMISTRY ORDERAB LES Performing Organization Address [facility] Co de Phone Number [facility] MILLENNIUM * CRP - High sensitivity (01/01/2012 11:03 AM EDT) C-Reactive Protein High Sensitivity 3.9 mg/L CERNER MILLENNIUM Comment: Interpretations: 1) For cardiac risk assessment, [...] prevention. ??Circulation 2003; [phone] Blood specimen (specimen) 01/01/2012 11:03 AM EDT 01/01/2012 11:05 AM EDT Narrative Resulting Agency Comment Spec In Lab Doe Obrien MD CHEMISTRY ORDERAB LES CARLOS DENNIS * (ABNORMAL) CBC (01/01/2012 11:03 AM EDT) White Blood Cell 9.6 4.0 - 10.0 x10(3)/mc L CERNER MILLDESTINIIUM Red Blood Cell 5.24 4.63 - 6.08 [...] MD HEMATOLOGY ORDERA BLES Performing Organization Address [facility] de Phone Number [facility] * Sedimentation rate (01/01/2012 11:03 AM EDT) Sedimentation Rate Automated 5 0 - 15 mm/hr [facility] Blood specimen (specimen) 01/01/2012 11:03 AM EDT 01/01/2012 11:05 AM EDT Narrative Resulting Agency Comment Spec In Lab Luke Metcalf MD HEMATOLOGY ORDERABL ES Performing Organization Address [facility] de Phone Number [facility] documented in this encounter Visit Diagnoses Diagnosis RA (rheumatoid arthritis)- Primary Rheumatoid arthritis Injury, hand Injury, other and unspecified, hand, except finger Encounter for long-term (current) use of other medications Rheumatoid arthritis(714.0) Rheumatoid arthritis documented in this encounter Care Teams Police Communications Dispatcher Relationship Specialty Start Date End Date Gloria Espinoza MD [facility] [address] [place] [address] [place] [address] PCP - General 07/25/10 11/08/13 documented as of this encounter
--- OUTSIDE RECORDS SUMMARY | 2024-04-06 02:32 | XMS_ITS | Encounter Summary ---
Author Organization [facility] [place] [address] Care Team Providers Care Fire Watcher Name Role Phone Gloria Rodney MD Primary Care Provider [phone] Reason for Referral * Consultation (Routine) - Complete - Unable to Contact Patient Specialty Diagnoses / Procedures Referred By Azam corbett Referred To Contact Otolaryngology Diagnoses Chronic sinusitis Kandy Espana, RN [facility] [place] [address] [facility] Otolaryngology [address] [place] [phone] Referral ID Status Reason Start Date Expiration Date Visits Requested Visits Authorized [id number] Complete - Unable to Contact Patient Specialty Service Requested 3 12/13/2013 1 1 Reason for Visit * Reason Comments Rheumatoid Arthritis Encounter Details Date Type Department Care Team (Late st Contact Info) Description 06/16/2013 12:45 PM EDT [place] [id number] Kandy Espana, RN [facility] [place] [address] Encounter for long-term (current) use of other medications; Cough; High risk medication use; Rheumatoid arthritis; Joint pain; Chronic sinusitis Discharge Disposition: Home Social History Tobacco Use [...] Reading Time Taken Comments Blood Pressure 138/81 06/16/2013 12:53 PM EDT Pulse 77 06/16/2013 12:53 PM EDT Temperature 36.7 ??C (98 ??F) 06/16/2013 12:53 PM EDT Respiratory Rate - - Oxygen Saturation 95% 06/16/2013 12:53 PM EDT Inhaled Oxygen Concentration - - Weight 94.8 kg (209 lb) 06/16/2013 12:53 PM EDT Height 182.9 cm (6') 06/16/2013 12:53 PM EDT Body Mass Index 28.35 06/16/2013 12:53 PM EDT documented in this encounter Patient Instructions * Patient Instructions* Kandy Espana, CARDIOPULMONARY SUPERVISOR - 06/16/2013 3:02 PM EDT ?? Referral ENT. ?? PFTs - screening planned. ?? Labs pending. ?? Continue ABX per PCP. ?? CXR. ?? HOLD enbrel. ?? Continue MTX 7.5 mg po weekly; continue folic acid 1 mg po daily. ?? Continue medrol 2 mg po daily. ?? Further planning pending review of diagnostics with staff. ?? Continue treatments for dry mouth and blepharitis per Ophth/ENT; ongoing evoxac ?? Continue acetaminophen 1000 mg po QAM, prn. ?? Ongoing osteoporosis prevention strategies, dietary intake, supplementation with vitamin D (no calcium due to kidney stones), ongoing weightbearing activity and exercise. ?? Indications for holding Enbrel and methotrexate reviewed. ?? NO LIVE vaccines with biologic. ?? Annual influenza vaccine recommended. ?? Received Prevnar 13 vaccine - provided today - [facility] handout (patient) ?? Will review PPSV booster indications -> If only one PPSV23 in lifetime , then needs another > 8 weeks after Prevnar. If 2 PPSV23 already, then one more vaccine after age 65. ?? Ongoing HTN management -> GLORIA RODNEY MD. documented in this encounter Progress Notes * Kandy Espana APRN - 06/16/2013 12:57 PM EDT Established Patient Follow Up - [...] office visit: Updates in BOLD italics. ?? Continue MTX 7.5 mg po weekly; continue folic acid 1 mg po daily; and Enbrel 50 mg sc weekly. Reports is taking 15 mg MTX weekly, folic acid and enbrel 50 mg sc weekly without interruption. ?? Continue medrol 2 mg po daily. Ongoing without interruption. ?? Continue treatments for dry mouth and blepharitis per Ophth/ENT; ongoing evoxac 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 evoxac and moisturizing eye drops. Persistent dry cough, (+) dyspnea with exertion. No fever, chills, night sweats. 7-8 pound weight loss with being more active in summer. ?? Continue acetaminophen 1000 mg po QAM, prn. No change. ?? Office contact for joint swelling/increased pain or functional limitations. Reports no joint swelling, brief generalized AM stiffness. ?? Ongoing osteoporosis prevention strategies, dietary intake, supplementation with vitamin D (no calcium due to kidney stones), ongoing weightbearing activity and exercise. No change. ?? Indications for holding Enbrel and methotrexate reviewed. Reports doxycycline for chronic sinusitis x many months. Did not stop medications (MTX or Enbrel). ?? NO LIVE vaccines with biologic. Ongoing recommendation. ?? Annual influenza vaccine recommended. Received at local site. ?? Discussed indications for Prevnar 13 vaccine - provided today - [facility] handout (patient) provided. Planned today. ?? Will review PPSV booster indications. Noted below. ?? Ongoing HTN management -> GLORIA RODNEY MD. Ongoing recdommendation ?? Encouraged ongoing counseling - self-care strategies. No action. When last seen, reported still using (+) [...] Refill ??? methylPREDNISolone (MEDROL) 4 mg tablet TAKE 1/2 TABLET BY MOUTH DAILY 45 tablet 2 ??? Cholecalciferol, Vitamin D3, (VITAMIN D-3) 2,000 unit Cap Take by mouth. ??? lovastatin (MEVACOR) 10 mg tablet Take 10 mg by mouth nightly. ??? etanercept (ENBREL) 50 mg/mL (0.98 mL) injection Inject 1 mL subcutaneously once a week. 12 each 3 ??? VENLAFAXINE HCL (EFFEXOR ORAL) Take 150 [...] mg capsule 30 mg, PO, QHS ??? [DISCONTINUED] venlafaxine (EFFEXOR XR) 150 mg 24 hr capsule 75mg, PO, Once daily Allergies Allergen Reactions ??? Calcium kidney stones PHYSICAL EXAMINATION: Filed Vitals: 06/16/13 1253 BP: 138/81 Pulse: 77 Temp: 36.7 ??C (98 ??F) TempSrc: Oral Height: 182.9 cm (6') Weight: 94.802 kg (209 lb) SpO2: 95% Constitutional: Pleasant adult male, in no acute distress. HEENT: Normocephalic, atraumatic. Eyes -sclera clear. TMS intact - light reflex appropriate. Nares (+) thick dried yellow mucous (INGRID). (+)sphenoid and maxillary sinus pressure. Oral mucous membranes moist and intact. No posterior pharyngeal edema, exudate or erythema. No thyromegaly, anterior or cervical lymphadenopathy, submandibular or parotid gland enlargement. Chest: Heart rate and rhythm regular; (-) murmur or extra sounds. Lungs - clear to auscultation; (-) wheezing, rales, or rhonchi. Musculoskeletal: Muscle mass bilaterallysymmetric. Joint Exam: Neck ROM functional and nontender. Nontender to palpation at cervical, thoracic and lumbar spine. Bilateral shoulder ROM functional and nontender. Elbow ROM full, nontender; nosynovitis, extensor surface nodules, or effusion. Wrist ROM functional and nontender bilaterally. MCPs and PIPs - thickened without swelling; nontender. CMC thickening; no swelling. Makes a near complete fist and claw. Hip ROM functional; arises seated to standing independently. Bilateral knees - no effusion, erythema, or warmth. ROM functional. Bilateral ankle ROM functional, tender; no swelling. MTPs tender to compression. Skin: Intact without rash, telangiectasias, + nail dystrophy. ASSESSMENT: Rheumatoid arthritis, sicca symptoms; dry cough, dyspnea, chronic sinusitis, drug safety monitoring. PLAN: ?? Referral ENT. ?? PFTs - screening planned. ?? Labs pending. ?? Continue ABX per PCP. ?? CXR. ?? HOLD enbrel. ?? Continue MTX 7.5 mg po weekly; continue folic acid 1 mg po daily. ?? Continue medrol 2 mg po daily. ?? Further planning pending review of diagnostics with staff. ?? Continue treatments for dry mouth and blepharitis per Ophth/ENT; ongoing evoxac ?? Continue acetaminophen 1000 mg po QAM, prn. ?? Ongoing osteoporosis prevention strategies, dietary intake, supplementation with vitamin D (no calcium due to kidney stones), ongoing weightbearing activity and exercise. ?? Indications for holding Enbrel and methotrexate reviewed. ?? NO LIVE vaccines with biologic. ?? Annual influenza vaccine recommended. ?? Received Prevnar 13 vaccine - provided today - [facility] handout (patient) ?? Will review PPSV booster indications -> If only one PPSV23 in lifetime , then needs another > 8 weeks after Prevnar. If 2 PPSV23 already, then one more vaccine after age 65. ?? Ongoing HTN management -> GLORIA RODNEY MD. documented in this encounter Plan of Treatment Upcoming Encounters Date Type Department Care Team (Late st Contact Info) Description 04/28/2024 12:00 PM EDT [place] [phone] Scheduled Referrals Name Type Priority Associated Diagnoses Orde r Schedule Referral to ENT Outpatient Referral Routine Chronic sinusitis Ordered: 06/16/2013 documented as of this encounter Procedures Procedure Name Priority Date/Time Associated Diagnosis Comments EXTRACTABLE NUCLEAR ANTIGEN (GINO) AB Routine 06/16/2013 2:31 PM EDT Cough Joint pain DIFFERENTIAL, AUTOMATED Routine 06/16/2013 2:31 PM EDT SEDIMENTATION RATE Routine 06/16/2013 2: 31 PM EDT Rheumatoid arthritis CBC (WITH DIFF) Routine 06/16/2013 2:31 PM EDT Encounter for long-term (current) use of other medications High risk medication use CRP, CARDIAC RISK (HS CRP) Routine 06/16/2013 2:31 PM EDT Encounter for long-term (current) use of other medications Rheumatoid arthritis BUN Routine 06/16/2013 2:31 PM EDT Rheumatoid arthritis Encounter for long-term (current) use of other medications COMPREHENSIVE METABOLIC PANEL Routine 06/16/2013 2:31 PM EDT Encounter for long-term (current) use of other medications documented in this encounter Results * Pulmonary [...] No Comment: Lacho Durham MD Pulmonary/Critical Care [facility] Procedure Note Lacho Durham MD - 06/16/2013 [...] No Comment: Lacho Durham MD Pulmonary/Critical Care [facility] Eusebio Espinosa MD PFT ORDERABLES * XR chest routine PA & lateral (06/16/2013 3:23 PM EDT) Anatomical Region Laterality Modality Chest N/A Radiographic Gabriella ging 06/16/2013 3:23 PM EDT Narrative 06/17/2013 5:21 PM EDT Examination CHEST ROUTINE 2 VIEWS Clinical 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 methotrexate for RA Comparison Chest radiograph 06/04/2007, [...] 2 VIEWS Clinical History dry cough on retirement methotrexate for RA Comparison Chest radiograph 06/04/2007, [...] attending Eusebio Espinosa MD IMG DX ORDERABLES * Differential, Automated (06/16/2013 2:31 PM EDT) Neutrophil % 54.8 34.0 - 71.0 % CERNER MILLENNIUM Neutrophil Absolute 4.99 1.50 - 6.30 x10(3)/mcL CERNER MILLENNIUM Lymph % 34.2 19.0 - 53.0 % CERNER MILLENNIUM Lymphocytes Abs 3.1 1.0 - 3.6 x10(3)/mcL CERNER MILLENNIUM Monocyte % 8.5 4.0 - 13.0 % CERNER MILLENNIUM Monocyte Abs 0.8 0.2 - 1.0 x10(3)/mcL CERNER MILLENNIUM Eos % 2.2 0.0 - 7.0 % CERNER MILLENNIUM Eosinophils Abs 0.2 0.0 - 0.5 x10(3)/mcL CERNER MILLENNIUM Basophil % 0.1 0.0 - 2.0 % CERNER MILLENNIUM Baso Absolute 0.0 0.0 - 0.2 x10(3)/mcL CERNER MILLENNIUM Immature Gran % 0.20 0.00 - 0.66 % CERNER MILLENNIUM Comment: Immature granulocytes(IG's)percentage and absolute count will include metamyelocytes, myelocytes, and promyelocytes. Blood smears from CBCs yielding IG's will be scanned manually for concordance. If this scan disagrees with the automated IG or if promyelocytes are noted, a manual differential will be performed. Immature Gran Absolute 0.02 0.00 - 0.05 x10(3)/mcL CERNER MILLENNIUM Blood specimen (specimen) 06/16/2013 2:31 PM EDT 06/16/2013 2:40 PM EDT Charlotte Gonzalez MD HEMATOLOGY ORDERABLE S CERNER PENELOPEENNIUM * BUN (06/16/2013 2:31 PM EDT) Blood Urea Nitrogen 12 10 - 20 mg/dL CERNER MILLENNIUM Blood specimen (specimen) 06/16/2013 2:31 PM EDT 06/16/2013 2:40 PM EDT Narrative Resulting Agency Comment Spec In Lab Charlotte Gonzalez MD CHEMISTRY ORDERABLES Performing Organization Address City/State/[facility] Co de Phone Number CARLOS DENNIS * Extractable Nuclear Antigen (GINO) Ab (06/16/2013 2:31 PM EDT) GINO Ab Test ?Result ?Flag ??Unit ??RefValue Ab to Extractable Nuclear Ag Eval,S ??SS-A/Ro Ab, IgG, S ?<0.2 ?U -- REFERENCE VALUE -- <1.0 (Negative) ??SS-B/La Ab, IgG, S ?<0.2 ?U -- REFERENCE VALUE -- <1.0 (Negative) ??Sm Ab, IgG, S ? <0.2 ?U -- REFERENCE VALUE -- <1.0 (Negative) ??RAILROAD DISPATCHER Ab, IgG, S ?<0.2 ?U -- REFERENCE VALUE -- <1.0 (Negative) ??Scl 70 Ab, IgG, S ? <0.2 ?U -- REFERENCE VALUE -- <1.0 (Negative) ??Ashley 1 Ab, IgG, S ? <0.2 ?U -- REFERENCE VALUE -- <1.0 (Negative) Test Performed by: [place] [address] Television Host: Lisseth Hernandez, Ph.D. [facility] Blood specimen (specimen) 06/16/2013 2:31 PM EDT 06/16/2013 3:17 PM EDT Narrative Resulting Agency Comment Spec In Lab Eusebio Espinosa MD LAB SEND OUT ORDERAB LES Performing Organization Address [facility] de Phone Number [facility] * Sedimentation rate (06/16/2013 2:31 PM EDT) Sedimentation Rate Automated 5 0 - 15 mm/hr [facility] Blood specimen (specimen) 06/16/2013 2:31 PM EDT 06/16/2013 2:40 PM EDT Narrative Resulting Agency Comment Spec In Lab Eusebio Espinosa MD HEMATOLOGY ORDERABLE S Performing Organization Address [facility] Phone Number [facility] * High Sensitivity CRP (06/16/2013 2:31 PM EDT) C-Reactive Protein High Sensitivity 4.8 mg/L [facility] Comment: Interpretations: 1) For accurate cardiac risk [...] prevention. ??Circulation 2003; [phone] Blood specimen (specimen) 06/16/2013 2:31 PM EDT 06/16/2013 2:40 PM EDT Narrative Resulting Agency Comment Spec In Lab Eusebio Espinosa MD CHEMISTRY ORDERABLES [facility] * Comprehensive metabolic panel (non-fasting) (06/16/2013 2:31 PM EDT) [facility] Glucose 78 60 - 199 mg/dL CERNER MILLENNIUM Comment:Diabetes: >=200 mg/d L plus symptoms Blood Urea Nitrogen 12 10 - 20 mg/dL CERNER MILLENNIUM Creatinine 0.85 0.80 - 1.50 mg/dL CERNER MILLENNIUM Comment: Please note that the pediatric reference intervals supplied above were not validated at [facility]. Results from pediatric patients should be interpreted [...] - 31 mmol/L CERNER MILLENNIUM Anion Gap 10 5 - 15 mmol/L CERNER MILLENNIUM Calcium 9.0 8.5 - 10.5 mg/dL CERNER MILLENNIUM Protein, Total 6.6 6.4 - 8.3 gm/dL CERNER MILLENNIUM Albumin 4.2 3.2 - 5.2 gm/dL CERNER MILLENNIUM Aspartate Aminotransferase 25 0 - 39 unit/L CERNER MILLENNIUM Alanine Aminotransferase 29 0 - 55 unit/L CERNER MILLENNIUM Alkaline Phosphatase 81 40 - 120 unit/L CERNER MILLENNIUM Bilirubin, [...] the following links into your internet browser. http://www.nkdep.nih.gov/lab-evaluation.shtml http://www.kidney.org/professionals/ Blood specimen (specimen) 06/16/2013 2:31 PM EDT 06/16/2013 2:40 PM EDT Narrative Resulting Agency Comment Spec In Lab Eusebio Espinosa MD CHEMISTRY ORDERABLES CERNER MILLENNIUM * (ABNORMAL) CBC (with Diff) (06/16/2013 2:31 PM EDT) White Blood Cell 9.1 4.0 - 10.0 x10(3)/mc L CERNER MILLENNIUM Red Blood Cell 5.33 4.63 - 6.08 x10(6)/mc L CERNER MILLENNIUM Hemoglobin 16.3 13.7 - 17.5 gm/dL CERNER MILLENNIUM Hematocrit 49.5 40.0 - 51.0 % CERNER MILLENNIUM Mean Cell Volume 92.9(H) 79.0 - 92.0 fL CERNER MILLENNIUM Mean Cell Hemoglobin 30.6 25.6 - 32.2 pg CERNER MILLENNIUM Mean Cell Hemoglobin Concentration 32.9 32.0 - 36.5 gm/dL CERNER MILLENNIUM Platelet 219 145 - 370 x10(3)/mc L CERNER MILLENNIUM RDW Standard Deviation 49.1(H) 35.0 - 46.0 fL CERNER MILLENNIUM RDW coefficient of variation 14.5(H) 10.9 - 14.4 % CERNER MILLENNIUM Mean Platelet Volume 10.0 9.0 - 12.0 fL [facility] Blood specimen (specimen) 06/16/2013 2:31 PM EDT 06/16/2013 2:40 PM EDT Narrative Resulting Agency Comment Spec In Lab Eusebio Espinosa MD HEMATOLOGY ORDERABLE S CARLOS DENNIS documented in this encounter Visit Diagnoses Diagnosis Encounter for long-term (current) use of other medications Cough High risk medication use Encounter for long-term (current) use of other medications Rheumatoid arthritis(714.0) Rheumatoid arthritis Joint pain Pain in joint, site unspecified Chronic sinusitis Unspecified sinusitis (chronic) Cough- Primary Cough documented in this encounter Care Teams Fire Watcher Relationship Specialty Start Date End Date Gloria Rodney MD HOSPITALIST SERVICES [address] [place] [address] [place] [address] PCP - General 07/25/10 11/08/13 documented as of this encounter
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
--- OUTSIDE RECORDS SUMMARY | 2024-04-06 02:32 | XMS_ITS | Encounter Summary ---
Author Organization [facility] [place] [address] Care Team Providers Care Dispatcher Electric Power Name Role Phone Gloria Espinoza MD Primary Care Provider [phone] Reason for Visit * Reason Comments Rheumatoid Arthritis Encounter Details Date Type Department Care Team (Late st Contact Info) Description 02/19/2011 1:45 PM EDT [place] [address] Kandy Espana, RN [facility] [place] [address] Rheumatoid arthritis (Primary Dx); Encounter for long-term (current) use of other [...] Sign Reading Time Taken Comments Blood Pressure 126/86 02/19/2011 2:08 PM EDT Pulse 80 02/19/2011 2:08 PM EDT Temperature 36.8 ??C (98.3 ??F) 02/19/2011 2:08 PM ED T Respiratory Rate - - Oxygen Saturation 95% 02/19/2011 2:08 PM EDT Inhaled Oxygen Concentration - - Weight 92.1 kg (203 lb) 02/19/2011 2:08 PM EDT Height - - Body Mass Index - - documented in this encounter Patient Instructions * Patient Instructions* Kandy Espana APRN - 02/19/2011 3:00 PM EDT PLAN: Continue Enbrel 50 mg sc weekly, MTX weekly and folic acid daily. Aleve 1-2 tabs BID w/food. Monitor for GI upset. Continue medrol 2 mg po daily.PA review - re-initiate. Paperwork to nursing. Increase medrol with dosepak prescribing schedule provided to patient. Reviewed DXA report - osteopenia. Discussion related to osteoporosis prevention strategies, dietary intake, supplementation with vitamin D (no calcium due to kidney stones), ongoing weightbearing activity and exercise. documented in this encounter Progress Notes * Kandy Espana APRN - 02/19/2011 2:42 PM EDT Established Patient Follow Up - Rheumatology Clinic Wesly Ybarra is a 60-year-old male seen for ongoing evaluation and management of rheumatoid arthritis. INTERVAL HISTORY: Mr. Ybarra reports interruption in Enbrel therapy related to insurance issues. Received three month supply of Enbrel and has taken first weekly (divided) dose. Continues methotrexate 15 mg by mouth once weekly, folic acid 2-3 mg, Medrol 2 mg, and Tylenol as needed. Reports persistent swelling and stiffness in hands, wrists, knees and MTPs. Reports limited capacity for walking,routine activities. Reports no fever, chills, eye pain, visual changes, oral ulcers, + dry mouth, painful or dififcult swallowing, dry cough, heart burn, diarrhea or skin rash. Sleep impaired. Appetite good. No weight gain/loss. PHYSICAL EXAMINATION: Constitutional: Pleasant adult male, in no acute distress. HEENT: Normocephalic, atraumatic. Eyes - sclera clear. Oral mucous membranes moist and intact; no thyromegaly, anterior or cervical lymphadenopathy, submandibular or parotid gland enlargement. Chest: Heart rate and rhythm regular; no murmur or extra sounds. Lungs - clear to auscultation; no wheezing, rales, or rhonchi. Musculoskeletal: Muscle mass bilaterally symmetric. Joint Exam: Neck ROM functional and nontender. Bilateral shoulder ROM functional and nontender. Elbow ROM full and nontender without synovitis, extensor surface nodules, or effusion. Wrist ROM decreased, tender - swelling (RIGHT) MCPs and PIPs -swelling MCPS 2/3/4 RIGHT and LEFT. Makes an incomplete fist and near complete claw. Hip ROM functional; arises seated to standing unassisted. Bilateral knees - no effusion, erythema, or warmth. ROM full. Bilateral ankle ROM functional, tender; no swelling. MTPs tender to compression. Skin: Intact w ithout rash. ASSESSMENT: Rheumatoid arthritis, biologic interruption; chronic steroid use, osteopenia. PLAN: Continue Enbrel 50 mg sc weekly, MTX weekly and folic acid daily. Aleve 1-2 tabs BID w/food. Monitor for GI upset. Continue medrol 2 mg po daily.PA review - re-initiate. Paperwork to nursing. Increase medrol with dosepak prescribing schedule provided to patient. Reviewed DXA report - osteopenia. Discussion related to osteoporosis prevention strategies, dietary intake, supplementation with vitamin D (no calcium due to kidney stones), ongoing weightbearing activity and exercise. Indications for holding Enbrel and methotrexate reviewed. Labs pending today. Followup planned in 8 weeks, sooner for concerns, questions or increased signs/symptoms. documented in this encounter Plan of Treatment Upcoming Encounters Date Type Department Care Team (Late st Contact Info) Description 04/28/2024 12:00 PM EDT [place]ointment [place] [address] documented as of this encounter Procedures Procedure Name Priority Date/Time Associated Diagnosis Comments SEDIMENTATION RATE Routine 02/19/2011 1: 52 PM EDT Rheumatoid arthritis CRP, CARDIAC RISK (HS CRP) Routine 02/19/2011 1:52 PM EDT Rheumatoid arthritis documented in this encounter Results * Sedimentation rate (02/19/2011 1:52 PM EDT) Sedimentation Rate Automated 6 0 - 15 mm/hr [facility] Blood specimen (specimen) 02/19/2011 1:52 PM EDT 02/19/2011 1:59 PM EDT Luke Metcalf MD HEMATOLOGY ORDERABL ES Performing Organization Address [facility] de Phone Number CARLOS DENNIS * High Sensitivity CRP (02/19/2011 1:52 PM EDT) C-Reactive Protein High Sensitivity 1.1 mg/L [facility] Comment: Interpretations: 1) For cardiac risk assessment, [...] MD CHEMISTRY ORDERABLE S Performing Organization Address [facility] de Phone Number CARLOS DENNIS documented in this encounter Visit Diagnoses Diagnosis Rheumatoid arthritis(714.0)- Primary Rheumatoid arthritis Encounter for long-term (current) use of other medications documented in this encounter Care Teams Dispatcher Electric Power Relationship Specialty Start Date End Date Gloria Espinoza MD H[facility] [address] [place] [address] [place] [address] PCP - General 07/25/10 11/08/13 documented as of this encounter
--- OUTSIDE RECORDS SUMMARY | 2024-04-06 02:32 | XMS_ITS | Encounter Summary ---
Author Organization [facility] [place] [address] Care Team Providers Care Internal Control Consultant Name Role Phone Gloria Espinoza MD Primary Care Provider [phone] Encounter Details Date Type Department Care Team (Late st Contact Info) Description 04/16/2011 Abstract [place] [address] Billie Lovelace, RN Social History Tobacco Use Types Packs/Day [...] 12:00 PM EDT Appointment [place] [address] documented as of this encounter Visit Diagnoses Not on filedocumented in this encounter Care Teams Internal Control Consultant Relationship Specialty Start Date End Date Gloria Espinoza MD H[facility]PITAL[facility] [address] [place] [address] [place] [address] PCP - General 07/25/10 11/08/13 documented as of this encounter
--- OUTSIDE RECORDS SUMMARY | 2024-04-06 02:32 | XMS_ITS | Encounter Summary ---
Author Organization [facility] [address] Care Team Providers Care Truck Spotter Name Role Phone Gloria Espinoza MD Primary Care Provider [phone] Reason for Visit * Reason Onset Date Comments Prior Authorization 01/16/2013 ENBREL-APPRO [place] Encounter Details Date Type Department Care Team (Late st Contact Info) Description 01/16/2013 [place] [address] Jarvis Espana, RN [facility] [place] [address] Prior Authorization (ENBREL-APPROVED) Social History Tobacco Use Types Packs/Day Years [...] encounter Miscellaneous Notes * Telephone Encounter - Ross Tillman - 01/16/2013 10:15 AM EDT Medication Prior Authorization RHEUMATOLOGY JARVIS ESPANA Medication name/dose/directions: ENBREL 50MG INJECT SQ QONCE A WEEK Rationale for request: RA Health plan: [employer] ID#[id number] Authorizing sales representative church furniture name: APPROVAL FAXED TO OFFICE Faxed to health plan on: 01/16/13 Health plan decision: Approved Quantity approved: 12/28 Authorization number: [id number] Start date: 01/13/13 End date: 01/13/14 Patient notified? yes Pharmacy notified? yes documented in this encounter Plan of Treatment Upcoming Encounters Date Type Department Care Team (Late st Contact Info) Description 04/28/2024 12:00 PM EDT [place] [address] documented as of this encounter Visit Diagnoses Not on filedocumented in this encounter Care Teams Truck Spotter Relationship Specialty Start Date End Date Gloria Espinoza MD H[facility] [address] [place] [address] [place] [address] PCP - General 07/25/10 11/08/13 documented as of this encounter
--- OUTSIDE RECORDS SUMMARY | 2024-04-06 02:32 | XMS_ITS | Encounter Summary ---
Author Organization [facility]ly [facility] [place] [address] Care Team Providers Care Rn Postpartum Name Role Phone Gloria Espinoza MD Primary Care Provider [phone] Reason for Visit * Reason Comments Rheumatoid Arthritis Encounter Details Date Type Department Care Team (Late st Contact Info) Description 07/16/2011 1:45 PM EST [place] [address] Kandy Espana, RN [facility] DR RHEUMATOLOGY [place] [address] Encounter for long-term (current) use of other medications; Rheumatoid arthritis; Cough; Chronic SI joint pain Discharge Disposition: Home Social History Tobacco Use [...] Sign Reading Time Taken Comments Blood Pressure 139/84 07/16/2011 1:51 PM EST Pulse 74 07/16/2011 1:51 PM EST Temperature 36.3 ??C (97.4 ??F) 07/16/2011 1:51 PM ES T Respiratory Rate - - Oxygen Saturation 96% 07/16/2011 1:51 PM EST Inhaled Oxygen Concentration - - Weight 89.4 kg (197 lb) 07/16/2011 1:51 PM EST Height 182.9 cm (6') 07/16/2011 1:51 PM EST Body Mass Index 26.72 07/16/2011 1:51 PM EST documented in this encounter Patient Instructions * Patient Instructions* Kandy Espana APRN - 07/16/2011 3:36 PM EST 1. Continue Enbrel 50 mg sc weekly, MTX weekly and folic acid daily. 2. Continue acetaminophen 1000 mg po QAM; monitor for GI upset. 3. Office contact for joint swelling/increased pain or functional limitations. 4. Urgent follow up with PCP for fever, chills, productive cough. 5. Ongoing osteoporosis prevention strategies, dietary intake, supplementation with vitamin D (no calcium due to kidney stones), ongoing weightbearing activity and exercise. 6. Indications for holding Enbrel and methotrexate reviewed. 7. Followup planned in 12 weeks, sooner for concerns, questions or increased signs/symptoms. documented in this encounter Progress Notes * Kandy Espana APRN - 07/16/2011 2:27 PM EST Established Patient Follow Up - Rheumatology Clinic Wesly Ybarra is a 60-year-old male seen for ongoing evaluation and management of rheumatoid arthritis. He is accompanied by his sister. INTERVAL HISTORY: Mr. Ybarra reports no joint swelling, pain or sustained AM stiffness. Continueswith Enbrel therapy 25 mg sc twice weekly, MTX 15 mg po once weekly and folic acid. Using tylenol vs NSAID with resolution of heartburn symptoms. 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 Reports no paresthesias or weakness; planned unspecified injection to left SI joint 08/06/2011. Bilateral knee stiffness reported at time of last office visit resolved. Continues using wash for crusting of lashes. Contact with PCP for cough and nasal congestion thought associated with mold exposure (old camp). Using albuterol with benefit. At no time - fever, chills, discolored mucous expectorant. Received influenza vaccine. Reports no fever, chills, eye pain, visual changes, oral ulcers, + dry mouth, painful or difficult swallowing, dry cough, diarrhea or skin rash. Appetite good and weight stable. No recurrent illness or infection. Denies other changes in medical, surgical or social history. PHYSICAL EXAMINATION: Constitutional: Pleasant adult male, in [...] palpation at cervical, thoracic and lumbar spine. Tender at left SI joint. Bilateral shoulder ROM functional and nontender. Elbow ROM ful, nontender; no synovitis, extensor surfacenodules, or effusion. Wrist ROM functional and nontender bilaterally. MCPs and PIPs - thickened without swelling. Makes a near complete fist and claw. Hip ROM functional; arises seated to standing unassisted. Bilateral knees - no effusion, erythema, or warmth. ROM functional; incomplete extension at LEFT. Bilateral ankle ROM functional, tender; no swelling. MTPs tender to compression. Skin: Intact without rash. Reviewed the following report with Mr. Ybarra and his sister. BILATERAL KNEE RADIOGRAPH, 04/17/11: INDICATION: Knee pain and stiffness. COMPARISON: 02/20/06. TECHNIQUE: AP, lateral, and axial views of bilateral knees. FINDINGS: Minimal medial joint space narrowing is noted. There is bilateral patellofemoral spurring, with minute joint effusion. There is no acute fracture or dislocation. IMPRESSION IMPRESSION: Stable mild osteoarthritis of bilateral knees. ASSESSMENT: Rheumatoid arthritis, SI joint (LEFT) tennderness; chronic steroid use, osteopenia. PLAN: 1. Continue Enbrel 50 mg sc weekly, MTX weekly and folic acid daily. 2. Continue acetaminophen 1000 mg po QAM; monitor for GI upset. 3. Office contact for joint swelling/increased pain or functional limitations. 4. Urgent follow up with PCP for fever, chills, productive cough. 5. Ongoing osteoporosis prevention strategies, dietary intake, supplementation with vitamin D (no calcium due to kidney stones), ongoing weightbearing activity and exercise. 6. Indications for holding Enbrel and methotrexate reviewed. 7. Followup planned in 12 weeks, sooner for concerns, questions or increased signs/symptoms. documented in this encounter Plan of Treatment Upcoming Encounters Date Type Department Care Team (Late st Contact Info) Description 04/28/2024 12:00 PM EDT [place]ment [place] [address] documented as of this encounter Procedures Procedure Name Priority Date/Time Associated Diagnosis Comments DIFFERENTIAL, AUTOMATED Routine 07/16/2011 2:44 PM EST CREATININE Routine 07/16/2011 2:44 PM EST Encounter for long-term (current) use of other medications CBC (WITH DIFF) Routine 07/16/2011 2:44 PM EST Encounter for long-term (current) use of other medications CRP, CARDIAC RISK (HS CRP) Routine 07/16/2011 2:44 PM EST Encounter for long-term (current) use of other medications Rheumatoid arthritis BUN Routine 07/16/2011 2:44 PM EST Encounter for long-term (current) use of other medications HEPATIC FUNCTION PANEL Routine 07/16/2011 2:44 PM EST Encounter for long-term (current) use of other medications documented in this encounter Results * (ABNORMAL) DIFFERENTIAL, AUTOMATED (07/16/2011 2:44 PM EST) Neutrophil % 57.4 34.0 - 71.0 % CERNER MILLENNIUM Neutrophil Absolute 6.60(H) 1.50 - 6.30 x10(3)/mc L CERNER MILLENNIUM Lymph % 30.9 19.0 - 53.0 % CERNER MILLENNIUM Lymphocytes Abs 3.6 1.0 - 3.6 x10(3)/mc L CERNER MILLENNIUM Monocyte % 8.7 4.0 - 13.0 % CERNER MILLENNIUM Monocyte Abs 1.0 0.2 - 1.0 x10(3)/mc L CERNER MILLENNIUM Eos % 2.6 0.0 - 7.0 % CERNER MILLENNIUM Eosinophils Abs 0.3 0.0 - 0.5 x10(3)/mc L CERNER MILLENNIUM [...] x10(3)/mc L CERNER MILLENNIUM Blood specimen (specimen) 07/16/2011 2:44 PM EST 07/16/2011 3:07 PM EST Doe Obrien MD HEMATOLOGY [facility] CARLOS DENNIS * High Sensitivity CRP (07/16/2011 2:44 PM EST) C-Reactive Protein High Sensitivity 1.8 mg/L CERNER MILLENNIUM Comment: Interpretations: 1) For [...] EST Doe Obrien MD CHEMISTRY ORDERAB LES [facility] Lánzanos * Creatinine, serum (07/16/2011 2:44 PM EST) Creatinine 0.99 0.80 - 1.50 mg/dL CERNER MILLENNIUM Est Glomerular Filtration Rate >60 >=60 [facility] Lánzanos Comment: The National Kidney Disease Education Program [...] EST Doe Obrien MD CHEMISTRY ORDERAB LES CERNER MILLENNIUM * Hepatic function panel (07/16/2011 2:44 [...] EST Doe Obrien MD CHEMISTRY ORDERAB LES CERNER MILLENNIUM * BUN (07/16/2011 2:44 PM EST) Blood Urea Nitrogen 12 10 - 20 mg/dL CERNER MILLENNIUM Blood specimen (specimen) 07/16/2011 2:44 PM EST 07/16/2011 3:07 PM EST Doe Obrien MD CHEMISTRY ORDERAB LES CERNER MILLENNIUM * (ABNORMAL) CBC (07/16/2011 2:44 PM EST) [...] EST Doe Obrien MD HEMATOLOGY [facility] CARLOS DENNIS documented in this encounter Visit Diagnoses Diagnosis Encounter for long-term (current) use of other medications Rheumatoid arthritis(714.0) Rheumatoid arthritis Cough Chronic SI joint pain Disorders of sacrum documented in this encounter Care Teams Rn Postpartum Relationship Specialty Start Date End Date Gloria Espinoza MD [facility] [address] [place] [address] [place] [address] PCP - General 07/25/10 11/08/13 documented as of this encounter
--- OUTSIDE RECORDS SUMMARY | 2024-04-06 02:32 | XMS_ITS | Encounter Summary ---
Author Organization [facility] [place] [address] Care Team Providers Care Technician Chemical Cleaning Name Role Phone Gloria Espinoza MD Primary Care Provider [phone] Reason for Visit * Reason Onset Date Comments Medication Refill 10/03/2011 Encounter Details Date Type Department Care Team (Late st Contact Info) Description 10/03/2011 Refill [place] [address] Kandy Espana, RN [facility] [place] [address] Social History Tobacco Use Types Packs/Day Years [...] 12:00 PM EDT Appointment [place] [phone] documented as of this encounter Visit Diagnoses Not on filedocumented in this encounter Care Teams Technician Chemical Cleaning Relationship Specialty Start Date End Date Gloria Espinoza MD [facility] [address] [place] [address] [address] [place], [place] [id number] PCP - General 07/25/10 11/08/13 documented as of this encounter
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
--- OUTSIDE RECORDS SUMMARY | 2024-04-06 02:32 | XMS_ITS | Encounter Summary ---
Author Organization [facility] [place] [address] Care Team Providers Care Product Development Director Name Role Phone Gloria Espinoza MD Primary Care Provider [phone] Encounter Details Date Type Department Care Team (Late st Contact Info) Description 07/21/2012 Orders [place] [address] Kandy Espana, RN [facility] [place] [address] Social History Tobacco Use Types Packs/Day Years [...] 12:00 PM EDT [place]ment [place] [phone] documented as of this encounter Visit Diagnoses Not on filedocumented in this encounter Care Teams Product Development Director Relationship Specialty Start Date End Date Gloria Espinoza MD HOSPITAL[facility] [address] [place] [address] [place] [address] PCP - General 07/25/10 11/08/13 documented as of this encounter
--- OUTSIDE RECORDS SUMMARY | 2024-04-06 02:32 | XMS_ITS | Encounter Summary ---
Author Organization [facility] [place] [address] Care Team Providers Care Program Supervisor Name Role Phone Gloria Espinoza MD Primary Care Provider [phone] Reason for Visit * Reason Onset Date Comments Medication Refill 02/03/2013 Encounter Details Date Type Department Care Team (Late st Contact Info) Description 02/03/2013 Refill [place] [address] Kandy Espana, RN [facility] [place] [address] Social History Tobacco Use Types Packs/Day Years [...] 12:00 PM EDT Appointment [place] [address] documented as of this encounter Visit Diagnoses Not on filedocumented in this encounter Care Teams Program Supervisor Relationship Specialty Start Date End Date Gloria Espinoza MD HOSPITAL[facility] [address] [place] [address] [address] [place] [id number] PCP - General 07/25/10 11/08/13 documented as of this encounter
--- OUTSIDE RECORDS SUMMARY | 2024-04-06 02:32 | XMS_ITS | Encounter Summary ---
Author Organization [facility] [place] [address] Care Team Providers Care Lip Of Shank Cutter Name Role Phone Gloria Espinoza MD Primary Care Provider [phone] Reason for Visit * Reason Onset Date Comments Arthritis 01/31/2011 Encounter Details Date Type Department Care Team (Late st Contact Info) Description 01/31/2011 Telephone [place] [address] Kandy Espana, RN [facility] [place] [address] Arthritis Social History Tobacco Use Types Packs/Day Years [...] Notes * Telephone Encounter - Kandy Espana, STOCK PARTS FABRICATOR - 01/31/2011 2:12 PM EDT Return call to Mr. Ybarra to review symptoms., Reports evaluation in ED last evening after episode of chills. Being treated for cellulitis of leg with ABX. Follow up appointment with PCP on 02/01/2011. No fever today. Continues with medrol 4 mg po daily. Recommend: HOLD Enbrel until ABX competed and no signs of infection. Requeted return call in 7-8 days - follow up appointmnet scheduled within 3 weeks. ===View-only below this line=== ----- Message ----- From: Kalen De Anda MD Sent: 01/30/2011 11:24 AM To: Kandy Espana APRN Subject: FW: call ----- Message ----- From: Stefany Briceno Sent: 01/30/2011 10:09 AM To: Kalen De Anda MD Subject: call Can't walk with foot pain and swelling [phone] (home) documented in this encounter Plan of Treatment Upcoming Encounters Date Type Department Care Team (Late st Contact Info) Description 04/28/2024 12:00 PM EDT Appointment [place] [address] documented as of this encounter Visit Diagnoses Not on filedocumented in this encounter Care Teams Lip Of Shank Cutter Relationship Specialty Start Date End Date Gloria Espinoza MD H[facility] [address] [place] [address] [place] [address] PCP - General 07/25/10 11/08/13 documented as of this encounter
--- OUTSIDE RECORDS SUMMARY | 2024-04-06 02:33 | XMS_ITS | Referral Summary ---
Author Organization [facility] Address [address] [place] [address] Care Team Providers Care Load Mixer Name Role Phone Arelis Michele MD Primary Care Provider Encounters Date Type Department Care Team Description 01/16/2024 Lab Requisition [facility] Pathology [facility] Laboratory [address] [address] Outr Resulting Lab, Provider 01/16/2024 Lab Requisition [facility]ology & Laboratory [address] [address] Outr Resulting Lab, Provider from Last 3 Months Allergies Active Allergy Reactions Criticality Noted Date Comments Levothyroxine 02/04/2014 Lisinopril 02/04/2014 Dry cough Other - See Comments 02/04/2014 Calcium Medications Medication Sig Dispensed Refills Start Date End Date Status lovastatin (MEVACOR) 10 mg tablet Take 10 mg by mouth daily. Active METHOTREXATE SODIUM (METHOTREXATE, ANTI-RHEUMATIC, ORAL) Take by mouth Takes six 2.5 mg tablets every Saturday. Active Multivitamins with Minerals tablet Take 1 Tab by mouth daily. Active ERGOCALCIFEROL, VITAMIN D2, (VITAMIN D ORAL) Take by mouth daily . Active VENLAFAXINE HCL (EFFEXOR ORAL) Take 150 mg by mouth daily . Active OMEPRAZOLE (PRILOSEC ORAL) Take 40 mg by mouth 2 times daily . Active albuterol (VENTOLIN HFA) 90 mcg/actuation inhaler Inhale 2 Puffs as directed every 6 hours as needed for Wheezing. Active PREDNISONE ORAL Take 2 mg by mouth daily . Active TEMAZEPAM ORAL Take 30 mg by mouth at bedtime . Active terazosin (HYTRIN) 1 mg capsule Take 1 mg by mouth at bedtime. Active metoprolol (LOPRESSOR) 12.5 mg Take 12.5 mg by mouth 2 times daily. Active losartan (COZAAR) 25 mg tablet Take 25 mg by mouth daily. Active aspirin 325 mg tablet Take 325 mg by mouth daily. Active Social History Tobacco Use Types Packs/Day Years [...] Sign Reading Time Taken Comments Blood Pressure 141/75 02/08/2014 1300 EDT Pulse - - Temperature 37 ??C (98.6 ??F) 02/08/2014 1130 EDT Respiratory Rate 18 02/08/2014 1130 EDT Oxygen Saturation 95% 02/08/2014 1300 EDT Inhaled Oxygen Concentration - - Weight 95.3 kg (210 lb) 02/08/2014 0812 EDT Height 182.9 cm (6') 02/08/2014 0812 EDT Body Mass Index 28.48 02/08/2014 0812 EDT Plan of Treatment Not on file Procedures Procedure Name Priority Date/Time Associated Diagnosis Comments PTH INTACT Routine 01/16/2024 10:53 EDT CALCIUM, IONIZED Routine 01/16/2024 10:5 3 EDT HEPATITIS C AB W REFLEX TO HCV RNA BY PCR Today 06/02/2021 11:50 EDT from Last 3 Months or Most Recently Relevant to Health Maintenance Results * CALCIUM, IONIZED (01/16/2024 10:53 EDT) Calcium, Ionized 1.32 1.14 - 1.35 mmol/L 01/16/2024 19:46 EDT [facility] Comment: Testing performed on heparinized plasma. Results may be biased 5% lower than that of whole blood. Blood VENOUS BLOOD / Unknown 01/16/2024 10:53 EDT 01/16/2024 19:42 EDT Provider Outr Resulting Lab CHEMISTRY & BLOOD GAS ORDERABLES [facility] [address], [place] [id number] * (ABNORMAL) PTH INTACT (01/16/2024 10:53 EDT) Intact PTH 11(L) 19 - 88 pg/mL 01/16/2024 21:01 EDT [facility] Blood VENOUS BLOOD / Unknown 01/16/2024 10:53 EDT 01/16/2024 19:42 EDT Provider Outr Resulting Lab CHEMISTRY & BLOOD GAS ORDERABLES Performing Organization Address City/[facility]/ZIP Co de Phone Number [facility] [address], [place] [address] * HEPATITIS C AB W REFLEX TO HCV RNA BY PCR (06/02/2021 11:50 EDT) Hep C Antibody Negative Negative 06/05/2021 10:39 EDT [facility] Blood VENOUS BLOOD / Unknown 06/02/2021 11:50 EDT 06/02/2021 21:00 EDT Provider Outr Resulting Lab CHEMISTRY & BLOOD GAS ORDERABLES [facility] [address] [place] [address] from Last 3 Months or Most Recently Relevant to Health Maintenance Advance Directives For more information, please contact: [phone] * Full Code (Latest Code Status on File) Date Activated Date Inactivated Comments 02/08/2014 8:03 02/08/2014 16:48 Care Teams Load Mixer Relationship Specialty Start Date End Date Arelis Michele MD [address] [place] [id number] PCP - General 02/08/14
--- OUTSIDE RECORDS SUMMARY | 2024-04-06 02:33 | XMS_ITS | Encounter Summary ---
Author Organization [facility] [place] [address] Care Team Providers Care Photography Editor Name Role Phone Gloria Espinoza MD Primary Care Provider [phone] Reason for Visit * Reason Onset Date Comments Other 01/01/2011 returning call t o pt at his request Encounter Details Date Type Department Care Team (Late st Contact Info) Description 01/01/2011 [place] [address] Kandy Espana, RN [facility] [place] [address] Other (returning call to pt at his request) Social History Tobacco Use Types Packs/Day Years Used Date Smoking Tobacco: Never Assessed Sex and Gender Information Value Date Recorded Sex Assigned at Not on file Gender Identity Not on file Sexual Orientation Not on file documented as of this encounter Miscellaneous Notes * Telephone Encounter - Tara Schafer LPN - 01/01/2011 1:37 PM EDT Tried to return call to patient not home, left message asking him to call back. documented in this encounter Plan of Treatment Upcoming Encounters Date Type Department Care Team (Late st Contact Info) Description 04/28/2024 12:00 PM EDT [place] [address] documented as of this encounter Visit Diagnoses Not on filedocumented in this encounter Care Teams Photography Editor Relationship Specialty Start Date End Date Gloria Espinoza MD [facility] [address] [place] [address] [place] [address] PCP - General 07/25/10 11/08/13 documented as of this encounter
--- OUTSIDE RECORDS SUMMARY | 2024-04-06 02:33 | XMS_ITS | Encounter Summary ---
Author Organization [facility] [place] [address] Care Team Providers Care Wealth Management Manager Name Role Phone Gloria Espinoza MD Primary Care Provider [phone] Encounter Details Date Type Department Care Team (Late st Contact Info) Description 08/01/2010 11:15 AM EST [place] [address] Kandy Espana, RN [facility] [place] [address] Discharge Disposition: Home Social History Tobacco Use [...] 12:00 PM EDT Appointment [place] [address] documented as of this encounter Visit Diagnoses Not on filedocumented in this encounter Care Teams Wealth Management Manager Relationship Specialty Start Date End Date Gloria Espinoza MD HOSPITAL[facility] [address] [place] [address] [place] [address] PCP - General 07/25/10 11/08/13 documented as of this encounter
--- OUTSIDE RECORDS SUMMARY | 2024-04-06 02:33 | XMS_ITS | Encounter Summary ---
Author Organization [facility] Address [address] [place] [address] Care Team Providers Care Life Skills Trainer Name Role Phone Arelis Michele MD Primary Care Provider [phone] Encounter Details Date Type Department Care Team (Late st Contact Info) Description 04/12/2023 Lab Requisition [facility] Pathology & Laboratory Medicine - [address] [address] Outr Resulting Lab, Provider Social History Tobacco Use Types Packs/Day Years Used Date Smoking Tobacco: Never Smokeless Tobacco: Never Alcohol Use Standard Drinks/Week Comments No 0 (1 standard drink = 0.6 oz pur e alcohol) Sex and Gender Information Value Date Recorded Sex Assigned at Not on file Gender Identity Not on file Sexual Orientation Not on file documented as of this encounter Plan of Treatment Not on file documented as of this encounter Procedures Procedure Name Priority Date/Time Associated Diagnosis Comments AFB CULTURE/SMEAR, OTHER Routine 04/12/2023 8:00 EDT documented in this encounter Results * AFB CULTURE/SMEAR, OTHER (04/12/2023 8:00 EDT) Organism ID No acid-fast bacilli isolated VITEK SUSCEPTIBILITY 06/08/2023 16:46 EDT [facility] AFB Smear No Acid Fast Bacilli Seen 06/08/2023 16:46 EDT [facility] Sputum SPUTUM / Unknown 04/12/2023 8:00 EDT 04/12/2023 22:40 EDT Provider Outr Resulting Lab MICROBIOLOGY - GENERAL ORDERABLES [facility] [address] [place] [address] documented in this encounter Visit Diagnoses Not on filedocumented in this encounter Care Teams Life Skills Trainer Relationship Specialty Start Date End Date Arelis Michele MD [address] [place] [address] PCP - General 02/08/14 documented as of this encounter
--- OUTSIDE RECORDS SUMMARY | 2024-04-06 02:33 | XMS_ITS | Encounter Summary ---
Author Organization [facility] Address [address] [place] [address] Care Team Providers Care Operating Room Surgical Technician Name Role Phone Arelis Michele MD Primary Care Provider [phone] Encounter Details Date Type Department Care Team (Late st Contact Info) Description 07/04/2023 Lab Requisition [facility] Pathology & Laboratory Medicine - [address] [address] Outr Resulting Lab, Provider Social History Tobacco [...] Procedure Name Priority Date/Time Associated Diagnosis Comments IMMUNOGLOBULINS Routine 07/04/2023 10:13 EDT IGE Routine 07/04/2023 10:13 EDT documented in this encounter Results * IGE (07/04/2023 10:13 EDT) IgE 29 <158 IU/mL 07/05/2023 7:46 EDT [facility] Blood VENOUS BLOOD / Unknown 07/04/2023 10:13 EDT 07/04/2023 17:13 EDT Provider Outr Resulting Lab CHEMISTRY & BLOOD GAS ORDERABLES Performing Organization Address City/[facility]/ZIP Co de Phone Number [facility] [address] [place] [address] * (ABNORMAL) IMMUNOGLOBULINS (07/04/2023 10:13 EDT) IgG 532(L) 610 - 1,616 mg/dL 07/05/2023 9:27 EDT [facility] IgA 147 85 - 499 mg/dL 07/05/2023 9:27 EDT [facility] IgM 38 35 - 242 mg/dL 07/05/2023 9:27 EDT [facility] Blood VENOUS BLOOD / Unknown 07/04/2023 10:13 EDT 07/04/2023 17:13 EDT Provider Outr Resulting Lab CHEMISTRY & BLOOD GAS ORDERABLES Performing Organization Address [facility] Co de Phone Number [facility] [address] [place] [address] documented in this encounter Visit Diagnoses Not on filedocumented in this encounter Care Teams Operating Room Surgical Technician Relationship Specialty Start Date End Date Arelis Michele MD [address] [place] [address] PCP - General 02/08/14 documented as of this encounter
--- OUTSIDE RECORDS SUMMARY | 2024-04-06 02:33 | XMS_ITS | Encounter Summary ---
Author Organization [facility] Demet[place] [address] Care Team Providers Care Application Technician Name Role Phone Gloria Espinoza MD Primary Care Provider [phone] Reason for Visit * Reason Onset Date Comments Prior Authorization 01/03/2011 ENBREL not n eeded . Prior Authorization 01/30/2011 Enbrel appro nikolay 01/30/11 to 01/31/12 Encounter Details Date Type Department Care Team (Late st Contact Info) Description 01/03/2011 Telephone [place] [address] Kandy Espana, RN [facility] [place] [address] Prior Authorization (ENBREL not needed . ); Prior Authorization (Enbrel approved 01/30/11 to 01/31/12 ) Social History Tobacco Use Types Packs/Day Years Used Date Smoking Tobacco: Never Assessed Sex and Gender Information Value Date Recorded Sex Assigned at Not on file Gender Identity Not on file Sexual Orientation Not on file documented as of this encounter Miscellaneous Notes * Telephone Encounter - Arabella Hsieh - 01/30/2011 12:25 PM EDT Medication Prior Authorization Medication name/dose/directions: etanercept (ENBREL) 25 mg injection [[id number]] 1 KIT SQ Q TWICE A WEEK Rationale for request: 714.0 RHEUMATOID ARTHRITIS Health plan: [employer] benefits service ID# [id number] The patient's pharmacy has been trying to call him since the beginning of December he has not returnedtheir calls so they closed the account Authorizing sales representative business courses name: [employer] Rep. Faxed to health plan on: Called 2nd time on Health plan decision: approved Quantity approved: 30 Authorization number: [id number] Start date: 01/30/11 End date: 01/31/2012 Patient notified? yes Pharmacy notified? yes * Telephone Encounter - Arabella Hsieh - 01/03/2011 2:23 PM EDT Medication Prior Authorization Medication name/dose/directions: etanercept (ENBREL) 25 mg injection [[id number]] 1 KIT SQ Q TWICE A WEEK Rationale for request: 714.0 RHEUMATOID ARTHRITIS Health plan: [employer] benefits service ID# [id number] The patient's pharmacy has been trying to call him since the beginning of December he has not returnedtheir calls so they closed the account Authorizing sales representative business courses name: n/a Faxed to health plan on: n/a Health plan decision: Pa was not needed Quantity approved: n/a Authorization number: n/a Start date: n/a End date: n/a Patient notified? n/a Pharmacy notified? yes, n/a documented in this encounter Plan of Treatment Upcoming Encounters Date Type Department Care Team (Late st Contact Info) Description 04/28/2024 12:00 PM EDT Appointment [place] [address] documented as of this encounter Visit Diagnoses Not on filedocumented in this encounter Care Teams Application Technician Relationship Specialty Start Date End Date Gloria Espinoza MD HOSP[facility] [address] [place] [address] [place] [address] PCP - General 07/25/10 11/08/13 documented as of this encounter
--- OUTSIDE RECORDS SUMMARY | 2024-04-06 02:33 | XMS_ITS | Encounter Summary ---
Author Organization [facility] Address [address] [place] [address] Care Team Providers Care Manager Bakery Name Role Phone Arelis Michele MD Primary Care Provider [phone] Encounter Details Date Type Department Care Team (Late st Contact Info) Description 04/11/2023 Lab Requisition [facility] Pathology & Laboratory Medicine - [facility] [address] [place] [address] Outr Resulting Lab, Provider Social History Tobacco [...] Associated Diagnosis Comments AFB CULTURE/SMEAR, OTHER Routine 04/11/2023 9:00 EDT documented in this encounter Results * AFB CULTURE/SMEAR, OTHER (04/11/2023 9:00 EDT) Organism ID No acid-fast bacilli isolated VITEK SUSCEPTIBILITY 06/07/2023 9:50 EDT [facility] AFB Smear No Acid Fast Bacilli Seen 06/07/2023 9:50 EDT [facility] Sputum SPUTUM / Unknown 04/11/2023 9:00 EDT 04/11/2023 22:15 EDT Provider Outr Resulting Lab MICROBIOLOGY - GENERAL ORDERABLES [facility] [address] [place] [address] documented in this encounter Visit Diagnoses Not on filedocumented in this encounter Care Teams Manager Bakery Relationship Specialty Start Date End Date Arelis Michele MD [address] [place] [address] PCP - General 02/08/14 documented as of this encounter
--- OUTSIDE RECORDS SUMMARY | 2024-04-06 02:33 | XMS_ITS | Encounter Summary ---
Author Organization [facility] Address [address] [place] [address] Care Team Providers Care Industrial Retrofit Designer Name Role Phone Arelis Michele MD Primary Care Provider [phone] Encounter Details Date Type Department Care Team (Late st Contact Info) Description 01/16/2024 Lab Requisition [facility] Pathology & Laboratory Medicine - [facility] [address] [place], [place] [address] Outr Resulting Lab, Provider Social History Tobacco [...] Comments PTH INTACT Routine 01/16/2024 10:53 EDT documented in this encounter Results * (ABNORMAL) PTH INTACT (01/16/2024 10:53 EDT) Intact PTH 11(L) 19 - 88 pg/mL 01/16/2024 21:01 EDT [facility] Blood VENOUS BLOOD / Unknown 01/16/2024 10:53 EDT 01/16/2024 19:42 EDT Provider Outr Resulting Lab CHEMISTRY & BLOOD GAS ORDERABLES [facility] [address] [place] [address] documented in this encounter Visit Diagnoses Not on filedocumented in this encounter Care Teams Industrial Retrofit Designer Relationship Specialty Start Date End Date Arelis Michele MD [address] [place] [address] PCP - General 02/08/14 documented as of this encounter
--- OUTSIDE RECORDS SUMMARY | 2024-04-06 02:33 | XMS_ITS | Encounter Summary ---
Author Organization [facility] Address [address] [place] [address] Care Team Providers Care Compounder Flavorings Name Role Phone Arelis Michele MD Primary Care Provider [phone] Encounter Details Date Type Department Care Team (Late st Contact Info) Description 06/03/2021 Lab Requisition [facility] Pathology & Laboratory Medicine - [address] [address] Outr Resulting Lab, Provider Social History Tobacco [...] Procedure Name Priority Date/Time Associated Diagnosis Comments QUANTIFERON MITOGEN (PERFORMABLE) Today 06/02/2021 11:50 EDT QUANTIFERON TB2 (PERFORMABLE) Today 06/02/2021 11:50 EDT QUANTIFERON TB1 (PERFORMABLE) Today 06/02/2021 11:50 EDT QUANTIFERON NIL (PERFORMABLE) Today 06/02/2021 11:50 EDT QUANTIFERON INTERPRETATION (PERFORMABLE) Today 06/02/2021 11:50 EDT QUANTIFERON TB GOLD PLUS Routine 06/02/2021 11:50 EDT documented in this encounter Results * QUANTIFERON INTERPRETATION (PERFORMABLE) (06/02/2021 11:50 EDT) Quantiferon Interpretation Negative Negative 06/05/2021 13:41 EDT [facility] Comment:No interferon-gamma response to M. tuberculosis antigens was detected. ??Infection with M. tuberculosis is unlikely. A single negative result does not exclude infection with M. tuberculosis. ??In patients at high risk for M. tuberculosis infection, a second test should be considered. TB1 Ag minus Nil 0.00 IU/ml 06/05/20 13:41 EDT [facility] TB2 Ag minus Nil 0.00 IU/mL 06/05/20 13:41 EDT [facility] Blood VENOUS BLOOD / Unknown 06/02/2021 11:50 EDT 06/05/2021 13:34 EDT Narrative [facility] - 06/05/2021 13:41 EDT Results were obtained with the [employer] QuantiFERON-TB Gold Plus CLIA. New platform in use 05/10/2021 Provider Outr Resulting Lab IMMUNOLOGY A ND SEROLOGY ORDERABLES Performing Organization Address [facility] Co de Phone Number [facility] [address] [place] [address] * QUANTIFERON MITOGEN (PERFORMABLE) (06/02/2021 11:50 EDT) Blood VENOUS BLOOD / Unknown 06/02/2021 11:50 EDT 06/03/2021 22:20 EDT Provider Outr Resulting Lab IMMUNOLOGY A ND SEROLOGY ORDERABLES [facility] [address] [place] [address] * QUANTIFERON TB2 (PERFORMABLE) (06/02/2021 11:50 EDT) Blood VENOUS BLOOD / Unknown 06/02/2021 11:50 EDT 06/03/2021 22:20 EDT Provider Outr Resulting Lab IMMUNOLOGY A ND SEROLOGY ORDERABLES Performing Organization Address City/[facility]/ZIP Co de Phone Number [facility] [address] [place] [address] * QUANTIFERON TB1 (PERFORMABLE) (06/02/2021 11:50 EDT) Blood VENOUS BLOOD / Unknown 06/02/2021 11:50 EDT 06/03/2021 22:20 EDT Provider Outr Resulting Lab IMMUNOLOGY A ND SEROLOGY ORDERABLES Performing Organization Address [facility] Co de Phone Number [facility] [address] [place] [address] * QUANTIFERON NIL (PERFORMABLE) (06/02/2021 11:50 EDT) Blood VENOUS BLOOD / Unknown 06/02/2021 11:50 EDT 06/03/2021 22:20 EDT Provider Outr Resulting Lab IMMUNOLOGY A ND SEROLOGY ORDERABLES Performing Organization Address [facility] de Phone Number [facility] [address] [place] [address] documented in this encounter Visit Diagnoses Not on filedocumented in this encounter Care Teams Compounder Flavorings Relationship Specialty Start Date End Date Arelis Michele MD [address] [place] [address] PCP - General 02/08/14 documented as of this encounter
--- OUTSIDE RECORDS SUMMARY | 2024-04-06 02:33 | XMS_ITS | Encounter Summary ---
Author Organization [facility] [place] [address] Care Team Providers Care Fibre Technologist Name Role Phone Gloria Espinoza MD Primary Care Provider [phone] Reason for Visit * Reason Onset Date Comments Medication Refill 12/15/2010 Encounter Details Date Type Department Care Team (Late st Contact Info) Description 12/15/2010 [place] [address] Kandy Espana, RN [facility] [place] [address] RA (rheumatoid arthritis) Social History Tobacco Use [...] 12:00 PM EDT [place] [address] documented as of this encounter Visit Diagnoses Diagnosis RA (rheumatoid arthritis) Rheumatoid arthritis documented in this encounter Care Teams Fibre Technologist Relationship Specialty Start Date End Date Gloria Espinoza MD HOSPITALIST SERVICES [address] [place] [address] [address] [place], [place] [address] PCP - General 07/25/10 11/08/13 documented as of this encounter
--- OUTSIDE RECORDS SUMMARY | 2024-04-06 02:33 | XMS_ITS | Continuity of Care Document ---
Author Organization [facility] Address [address] [place] [address] Encounter [facility] FIN NBR [id number] Date(s): 07/01/23 - 07/01/23 [facility] [address] [place] [address]- [place] Encounter Diagnosis AK (actinic keratosis)(Discharge Diagnosis) - 06/27/23 History of basal cell carcinoma(Discharge Diagnosis) - 07/01/23 Abnormal skin growth(Discharge Diagnosis) - 07/01/23 Discharge Disposition: Home or Self Care Attending [...] BID, # 40 g, 1 Refill(s), Pharmacy: [id number], 180, cm, 10/19/22 15:43:00 EST, Height/Length [...] Display: Office Clinic Note Physician Authored Date: [id number] LEEANNE AGEE :1950 Age:72 years Sex:Male Visit Date:07/01/2023 Primary Care Physician: ALLEN LIAO D.O. Chief Complaint Established pateint - skin check History of Present Illness Established patient in the office today for a 3 month skin check. Patient was last seen in the office one 03/20/2023. Patient has a history of BCC. Patient also had some AK present and was advised touse Efudex on the left cheek and posterior neck. Patient also had a more advanced changed lesion onhis right preauricular region that was considered for biopsy but was decided to treat with Efudex. If this didn't help the lesion the patient was agreeable to have it removed at the next visit for further evaluation.?? He notes that the??changes in front of his right ear have continued. Review of Systems Fatigue?? Negative.?? Fever?? Negative.?? Weight Loss?? Negative.?? Snoring?? Negative.?Dysphagia??positive. ??Hoarseness?? Negative.? Cough?? Negative.??Rashes??positive.?? Eczema?? Negative.?? Headaches??positive.?? Thyroid Problems??positive.? Environmental allergies?? Negative.?? HayFever?? Negative.?? Reflux??positive.?? Sleep apnea?? Negative.?? Physical Exam GENERAL APPEARANCE:??The patient is awake, alert, and oriented and in no acute distress, Appears nutritionally sound, Healthy in appearance, mildly hoarse, with no stridor or stertor, Handling secretions without difficulty.?PSYCH:??affect normal, good eye contact, oriented to person, oriented to place, oriented to time.?NEURO:??CN's II-XII grossly intact, Gait is normal ?HEENT:??The patient is normocephalic with a normal facies [...] elevates symmetrically in midline,??OROPHARYNX:, Uvulamidline, soft palate symmetric.?NECK:??There is no palpable lymphadenopathy.?SKIN:??Actinic changes of the right??preauricular area photodocumented,??left nasaldorsum, nasal tip,??left cheek, left infra-auricular. ?MUSCULOSKELETAL:??normal gait and station.?? Procedure Surgery Consent??There [...] or anesthesia complications. We will proceed..?PFP Shave Excision??with derma blade ? Location: (Right preauricular) ? Size: (1.5??cm diameter) ?Prep:??Betadine used to prep site.?Consent:??The procedure was discussed, risks and complications explained and consent obtained.?Procedure:??Shave excision was performed, hemostasis was achieved and no complications.? Discharge Instructions:??Keep area moist with ointment and clean, follow up in seven days for pathology.?? Assessment/Plan 1.??AK (actinic keratosis)??L57.0 Concerning continued??skin changes??consistent with actinic changes of the??right hand.?? Regular??probable??skin cancer and not responding to Efudex.?? Other areas as discussed above recommend treatment with Efudex which she has supply of at home. ??Reviewed instructions for use.?Following biopsy recommend biopsy care??for right preauricular area with handout given. ??Follow- up 1 week??by phone with pathology results. ??Recheck skin in the spring/ if negative. 2.??History of basal cell carcinoma??Z85.828 3.??Abnormal skin growth??D49.2 As above Problem List/Past Medical History Ongoing Anxiety Arthritis [...] Oral, Daily diclofenac sodium 1% topical cream Efudex 5% topical cream, 1 yared, Topical, BID, 1 refills metoprolol succinate 25 mg oral capsule, extended [...] tobacco user Tobacco Use:. Electronically Signed on 07/01/23 10:43 AM DONAVAN Sapulding Electronically Signed on 07/01/23 11:07 AM DONAVAN Spaulding Patient Care team information Care Team Related Persons Name: LISA AGEE Address: [address] [id number] [facility]
--- OUTSIDE RECORDS SUMMARY | 2024-04-06 02:33 | XMS_ITS | Encounter Summary ---
Author Organization [facility] Address [address] [place] [address] Care Team Providers Care Overnight Caregiver Name Role Phone Arelis Michele MD Primary Care Provider [phone] Encounter Details Date Type Department Care Team (Late st Contact Info) Description 04/09/[address] [facility] Pathology & Laboratory Medicine - [address] [address] Outr Resulting Lab, Provider Social History Tobacco [...] on file documented as of this encounter Visit Diagnoses Not on filedocumented in this encounter Care Teams Overnight Caregiver Relationship Specialty Start Date End Date Arelis Michele MD [address] [place] [address] PCP - General 02/08/14 documented as of this encounter
--- OUTSIDE RECORDS SUMMARY | 2024-04-06 02:33 | XMS_ITS | Encounter Summary ---
Author Organization [facility] Address [address] [place] [address] Care Team Providers Care Produce Team Member Name Role Phone Arelis Michele MD Primary Care Provider [phone] Encounter Details Date Type Department Care Team (Late st Contact Info) Description 01/16/2024 Lab Requisition [facility] Pathology & Laboratory Medicine - [facility] [address] [place], [place] [address] Outr Resulting Lab, Provider Social History Tobacco [...] Procedure Name Priority Date/Time Associated Diagnosis Comments CALCIUM, IONIZED Routine 01/16/2024 10:5 3 EDT documented in this encounter Results * CALCIUM, IONIZED (01/16/2024 10:53 EDT) Calcium, Ionized 1.32 1.14 - 1.35 mmol/L 01/16/2024 19:[address] [facility] Comment: Testing performed on heparinized plasma. Results may be biased 5% lower than that of whole blood. Blood VENOUS BLOOD / Unknown 01/16/2024 10:53 EDT 01/16/2024 19:42 EDT Provider Outr Resulting Lab CHEMISTRY & BLOOD GAS ORDERABLES [facility] [address] [place] [address] documented in this encounter Visit Diagnoses Not on filedocumented in this encounter Care Teams Produce Team Member Relationship Specialty Start Date End Date Arelis Michele MD [address] [place] [address] PCP - General 02/08/14 documented as of this encounter
--- OUTSIDE RECORDS SUMMARY | 2024-04-06 02:33 | XMS_ITS | Encounter Summary ---
Author Organization Formerly [facility] [place] [address] Care Team Providers Care Linux System Admin Name Role Phone Gloria Espinoza MD Primary Care Provider [phone] Reason for Visit * Reason Onset Date Comments Medication Problem 01/11/2011 Encounter Details Date Type Department Care Team (Late st Contact Info) Description 01/11/2011 [place] [address] Jarvis Espana, RN [facility] [place] [address] Medication Problem Social History Tobacco Use Types Packs/Day Years Used Date Smoking Tobacco: Never Assessed Sex and Gender Information Value Date Recorded Sex Assigned at Not on file Gender Identity Not on file Sexual Orientation Not on file documented as of this encounter Miscellaneous Notes * Telephone Encounter - Jarvis Espana, RUSTIC TERRAZZO SETTER - 01/11/2011 12:46 PM EDT Attempted to reach Mr. Ybarra by phone. No answer - left message returning call. Additional information needed: 1. Not taking what medication? 2. Reason for discontinuing - adverse effect, cost, lost effect? 3. What other meds being taken at present for arthritis? 4. What are current rheumatologic/joint symptoms? - swelling, which joints, pain? 5. Urgency of re-evaluation? Will offer follow up appointment on 01/17 at 1100. Message copied by JARVIS ESPANA on SatJanuary 11, 2011 12:46 PM ------ Message from: MINO AUSTIN Created: SatJanuary 11, 2011 11:35 AM Regarding: NEW MED Contact: NOT TAKING MEDICATION ? ALTERNATIVE MEDICATION Patient called and is requesting a return call documented in this encounter Plan of Treatment Upcoming Encounters Date Type Department Care Team (Late st Contact Info) Description 04/28/2024 12:00 PM EDT [place] [address] documented as of this encounter Visit Diagnoses Not on filedocumented in this encounter Care Teams Linux System Admin Relationship Specialty Start Date End Date Gloria Espinoza MD [facility] [address] [place] [address] [place] [address] PCP - General 07/25/10 11/08/13 documented as of this encounter
--- OUTSIDE RECORDS SUMMARY | 2024-04-06 02:33 | XMS_ITS | Encounter Summary ---
Author Organization [facility] Address [address] [place] [address] Care Team Providers Care Seamer Panty Hose Name Role Phone Arelis Michele MD Primary Care Provider [phone] Encounter Details Date Type Department Care Team (Late st Contact Info) Description 05/21/2022 Lab Requisition [facility] Pathology & Laboratory Medicine - [facility] [address] [place] [address] Albaro Wade, [address] [place] [address] Neoplasm of unspecified behavior of bone, soft tissue, and skin Social History Tobacco Use Types Packs/Day Years [...] Procedure Name Priority Date/Time Associated Diagnosis Comments SURGICAL PATHOLOGY Today 05/18/2022 14 :20 EDT Neoplasm of unspecified behavior of bone, soft tissue, and skin documented in this encounter Results * SURGICAL PATHOLOGY (05/18/2022 14:20 EDT) Note to Patient The following pathology results have been interpreted by your pathologist and may be available to you before your health provider has had the opportunity to review them. Please allow time for your provider to receive these results and explore management options, if applicable. 05/22/2022 14:52 [facility] Final Diagnosis A. SKIN OF POSTAURICULAR REGION, RIGHT, SHAVE BIOPSY: - Basal cell carcinoma, nodular type. - Basal cell carcinoma present at deep tissue edge. 05/22/2022 14:52 [facility] Attestation By the signature below, the attending physician certifies that they have 1) personally conducted a gross and/or microscopic examination of the described specimen(s), and/or personally interpreted the results of laboratory testing of the described specimen(s), and 2) personally rendered or confirmed the above diagnosis. 05/22/2022 14:52 [facility] at 1452 Microscopic Description Irregularly shaped islands of atypical basal cells infiltrate the dermis. The basal cells have scant cytoplasm and round dark nuclei. Mitotic figures and apoptotic bodies are evident. The nuclei at the periphery of the islands have a palisaded arrangement. The islands are associated with a fibromyxoid stroma and there is cleft formation between some of the islands and stroma. 05/22/2022 14:52 [facility] Clinical History Bleeding lesion; clinical diagnosis code: D49.2 05/22/2022 14:52 [facility] Gross Description A. Received in formalin labelled with proper patient identification (initials R, D) and right postauricular skin is a 1.2 x 0.9 x 0.1 cm ovoid shave of pearly jiang skin. The margin is inked. The specimen is trisected and entirely submitted in A1. DONAVAN HELMS(ASCP) 05/22/2022 8:10 05/22/2022 14:52 [facility] Performing Lab [facility] 05/22/2022 14:52 [facility] Scanned Images 05/22/2022 14:52 [facility] Tissue TISSUE SPECIMEN FROM SKIN / Unknown 05/18/2022 14:20 EDT 05/21/2022 16:56 EDT Albaro Wade DO PATHOLOGY ORDER [facility] [address] [place] [address] documented in this encounter Visit Diagnoses Diagnosis Neoplasm of unspecified behavior of bone, soft tissue, and skin documented in this encounter Care Teams Seamer Panty Hose Relationship Specialty Start Date End Date Arelis Michele MD [address] [place] [address] PCP - General 02/08/14 documented as of this encounter
--- OUTSIDE RECORDS SUMMARY | 2024-04-06 02:33 | XMS_ITS | Encounter Summary ---
Author Organization [facility] [place] [address] Care Team Providers Care Sewing Demonstrator Name Role Phone Gloria Espinoza MD Primary Care Provider [phone] Encounter Details Date Type Department Care Team (Late Contact Info) Description 01/17/2011 Orders [place] [address] Kandy Espana, RN [facility] [place] [address] Social History Tobacco Use Types Packs/Day Years [...] 12:00 PM EDT [place] [phone] documented as of this encounter Visit Diagnoses Not on filedocumented in this encounter Care Teams Sewing Demonstrator Relationship Specialty Start Date End Date Gloria Espinoza MD [facility] [address] [place] [address] [address] [place], [place] [address] PCP - General 07/25/10 11/08/13 documented as of this encounter
--- OUTSIDE RECORDS SUMMARY | 2024-04-06 02:33 | XMS_ITS | Encounter Summary ---
[place] [address] Care Team Providers Care Spool Sander Name Role Phone Arelis Michele MD Primary Care Provider [phone] Encounter Details Date Type Department Care Team (Late st Contact Info) Description 04/05/2005 [place] [address] Uriah Brown MD [place], [place] Social History Tobacco Use Types Packs/Day Years [...] 12:00 PM EDT Appointment [place] [address] documented as of this encounter Procedures Procedure Name Priority Date/Time Associated Diagnosis Comments SURGICAL PATHOLOGY REPORT Routine 04/05/2005 9:37 PM EDT documented in this encounter Results * Surgical Pathology Report (04/05/2005 9:37 PM EDT) Surgical Pathology Report [id number] ? Location: The signing pathologist has (i) examined the relevant preparation(s) for the specimen(s) and (ii) rendered or confirmed the diagnosis(es). . ?Pathology Surgical Pathology Final Report Clinical Information Specimen Submitted: A - 5 cm ellipse, excision. Clinical History: Non healing sore (L) shoulder; BCC. Gross Description Labeled/Fixative : ? 5-cm ellipse, formalin. Qty/Size/Weight: ?Single, 3.0 x 1.4 x 0.6 cm. Tissue Description: ?? Ellipse of dixon skin with a raised, ?0.2-ng-la-diam eter, central, light brown lesion. Sections/Process ing: ??The specimen is inked and serially sectioned. ??The ?ends are submitted in (1); the remainder of the ?specimen submitted in (2-4). ?? (T4) ??aje/TLW Microscopic Description Block 2 is examined on additional step level sections. Diagnosis Skin of left shoulder, excision: 1 - Basal cell carcinoma, nodular and micronodular patterns, ulcerated, ?margins of excision free of lesion. 2 - Actinic keratosis. CR-0 04/09/05 [facility] 04/09/05 Verified by: ? Catia Osei ?Dermatopatholo gist ?(Electronic Signature) The attending pathologist whose signature appears on this report has reviewed all diagnostic slides and has edited the gross and/or microscopic portion of the report in rendering the final pathologic diagnosis. [facility] 04/05/2005 9:37 PM EDT Uriah Brown MD PATHOLOGY/CYTOLOGY O RDERABLES [facility] documented in this encounter Visit Diagnoses Not on filedocumented in this encounter Care Teams Spool Sander Relationship Specialty Start Date End Date Arelis Michele MD [address] [place] [address] PCP - General Family Medicine 08/01/18 02/11/24 documented as of this encounter
--- OUTSIDE RECORDS SUMMARY | 2024-04-06 02:33 | XMS_ITS | Encounter Summary ---
Author Organization [facility] [place] [address] Care Team Providers Care Equipment Technician Name Role Phone Gloria Espinoza MD Primary Care Provider [phone] Reason for Visit * Reason Onset Date Comments Medication Refill 12/06/2010 Encounter Details Date Type Department Care Team (Late st Contact Info) Description 12/06/2010 [place] [address] Kandy Espana, RN [facility] DR RHEUMAT[place] [address] RA (rheumatoid arthritis) (Primary Dx) Social History [...] 12:00 PM EDT [place] [phone] documented as of this encounter Visit Diagnoses Diagnosis RA (rheumatoid arthritis)- Primary Rheumatoid arthritis documented in this encounter Care Teams Equipment Technician Relationship Specialty Start Date End Date Gloria Espinoza MD [facility] [address] [place] [address] [place] [address] PCP - General 07/25/10 11/08/13 documented as of this encounter
--- OUTSIDE RECORDS SUMMARY | 2024-04-06 02:33 | XMS_ITS | Encounter Summary ---
Author Organization [facility] Address [address] [place] [address] Care Team Providers Care Staff Veterinarian Name Role Phone Arelis Michele MD Primary Care Provider [phone] Encounter Details Date Type Department Care Team (Late st Contact Info) Description 07/02/2023 Lab Requisition [facility] Pathology & Laboratory Medicine - [facility] [address] [place] [address] Mina Cee [address] ANTHONY [address] [place] [phone] Neoplasm of unspecified behavior of bone, soft [...] Date/Time Associated Diagnosis Comments SURGICAL PATHOLOGY Today 07/01/2023 10 :50 EDT Neoplasm of unspecified behavior of bone, soft tissue, and skin documented in this encounter Results * SURGICAL PATHOLOGY (07/01/2023 10:50 EDT) Note to Patient The following pathology results have been interpreted by your pathologist and may be available to you before your health provider has had the opportunity to review them. Please allow time for your provider to receive these results and explore management options, if applicable. 07/03/2023 15:26 [facility] Final Diagnosis A. SKIN OF PRE-AURICULAR REGION, RIGHT, SHAVE BIOPSY: - Basal cell carcinoma, nodular type. - Lesion extends to biopsy base. 07/03/2023 15:26 [facility] Attestation By the signature below, the attending physician certifies that they have 1) personally conducted a gross and/or microscopic examination of the described specimen(s), and/or personally interpreted the results of laboratory testing of the described specimen(s), and 2) personally rendered or confirmed the above diagnosis. 07/03/2023 15:26 [facility] at 1526 Clinical History Abnormal skin growth; clinical diagnosis code: D49.2 07/03/2023 15:26 [facility] Gross Description A. Received in formalin labelled with proper patient identification (initials R, D) and preauricular is an irregular dusky jiang, brown speckled skin shave, 1.5 x 1.0 x 0.1 cm. The margin is inked. Serially sectioned and entirely submitted in A1-A2. DONAVAN STARKEY(ASCP) 07/03/2023 7:20 07/03/2023 15:26 [facility] Performing Lab [facility] 07/03/2023 15:26 [facility] Scanned Images 07/03/2023 15:26 [facility] Tissue SPECIMEN FROM SKIN / Unknown 07/01/2023 10:50 EDT 07/02/2023 18:55 EDT Mina GO PATHOLOGY ORDERABL ES [facility] [address] [place] [address] documented in this encounter Visit Diagnoses Diagnosis Neoplasm of unspecified behavior of bone, soft tissue, and skin documented in this encounter Care Teams Staff Veterinarian Relationship Specialty Start Date End Date Arelis Michele MD [address] [place] [address] PCP - General 02/08/14 documented as of this encounter
--- OUTSIDE RECORDS SUMMARY | 2024-04-06 02:33 | XMS_ITS | Encounter Summary ---
Author Organization [facility] Address [address] [place] [address] Care Team Providers Care Electrical Accessories Assembler Name Role Phone Arelis Michele MD Primary Care Provider [phone] Encounter Details Date Type Department Care Team (Late st Contact Info) Description 04/16/2023 Lab Requisition [facility] Pathology & Laboratory Medicine - [address] [address] Outr Resulting Lab, Provider Social History Tobacco [...] Associated Diagnosis Comments AFB CULTURE/SMEAR, OTHER Routine 04/15/2023 8:00 EDT documented in this encounter Results * AFB CULTURE/SMEAR, OTHER (04/15/2023 8:00 EDT) Organism ID No acid-fast bacilli isolated VITEK SUSCEPTIBILITY 06/12/2023 7:53 EDT [facility] AFB Smear No Acid Fast Bacilli Seen 06/12/2023 7:53 EDT [facility] Sputum COLLECTION OF INDUCED SPUTUM / Unknown 04/15/2023 8:00 EDT 04/16/2023 18:36 EDT Provider Outr Resulting Lab MICROBIOLOGY - GENERAL ORDERABLES [facility] [address] [place] [address] documented in this encounter Visit Diagnoses Not on filedocumented in this encounter Care Teams Electrical Accessories Assembler Relationship Specialty Start Date End Date Arelis Michele MD [address] [place] [address] PCP - General 02/08/14 documented as of this encounter
--- OUTSIDE RECORDS SUMMARY | 2024-04-06 02:33 | XMS_ITS | Clinical Summary ---
Author Organization [facility] Address [address] [place] [address] Care Team Providers Care Operations Specialist Name Role Phone Arelis Michele MD Primary Care Provider [phone] Allergies Active Allergy Reactions Criticality Noted Date [...] Take 325 mg by mouth daily. Active Encounters Date Type Department Care Team Description 01/16/2024 Lab Requisition [facility] Pathology & Laboratory Medicine - Main [address] [address] Outr Resulting Lab, Provider 01/16/2024 Lab Requisition [facility] Pathology & Laboratory Medicine - [address] [address] Outr Resulting Lab, Provider from Last 3 Months Surgical History Surgery Date Site/Laterality Comments COLON SURGERY Medical History Medical History Date Comments Chest pain radiating to nec k Shortness of breath H/O rheumatoid arthritis Abnormal echocardiogram 12/2013 mild car diomyopathy with diffuse hypokinesia, more pronounced in the lad distribution. Depression GERD (gastroesophageal reflux disease) Osteoporosis Sicca syndrome (HCC-CMS) Cardiomyopathy (HCC-CMS) Social History Tobacco Use Types Packs/Day Years Used Date Smoking Tobacco: Never Smokeless Tobacco: Never Alcohol Use Standard Drinks/Week Comments No 0 (1 standard drink = 0.6 oz pur e alcohol) Sex and Gender Information Value Date Recorded Sex Assigned at Not on file Gender Identity Not on file Sexual Orientation Not on file Obstetrics History Last Filed Vital Signs Vital Sign Reading [...] 28.48 02/08/2014 0812 EDT Plan of Treatment Health Maintenance Due Date Last Done Comments RSV Immunization ( o r 60+ Years) (1 - 1-dose 60+ series) 2008 Fall Risk Screening 2013 COVID-19 Vaccine ( season) 2023 Hepatitis C Screen Completed 06/02/2021 Procedures Procedure Name Priority Date/Time Associated Diagnosis Comments PTH INTACT Routine 01/16/2024 10:53 EDT CALCIUM, IONIZED Routine 01/16/2024 10:5 3 EDT HEPATITIS C AB W REFLEX TO HCV RNA BY PCR Today 06/02/2021 11:50 EDT from Last 3 Months or Most Recently Relevant to Health Maintenance Results * CALCIUM, IONIZED (01/16/2024 10:53 EDT) Pathologist [facility] Calcium, Ionized 1.32 1.14 - 1.35 mmol/L 01/16/2024 19:46 EDT [facility] Comment: Testing performed on heparinized plasma. Results may be biased 5% lower than that of whole blood. Blood VENOUS BLOOD / Unknown 01/16/2024 10:53 EDT 01/16/2024 19:42 EDT Provider Outr Resulting Lab CHEMISTRY & BLOOD GAS ORDERABLES Performing Organization Address [facility] Co de Phone Number [facility] [address] [place] [phone] * (ABNORMAL) PTH INTACT (01/16/2024 10:53 EDT) Pathologist [facility] Intact PTH 11(L) 19 - 88 pg/mL 01/16/2024 21:01 EDT [facility] Blood VENOUS BLOOD / Unknown 01/16/2024 10:53 EDT 01/16/2024 19:42 EDT Provider Outr Resulting Lab CHEMISTRY & BLOOD GAS ORDERABLES Performing Organization Address [facility] Co de Phone Number [facility] [address] [place] [phone] * HEPATITIS C AB W REFLEX TO HCV RNA BY PCR (06/02/2021 11:50 EDT) Pathologist [facility] Hep C Antibody Negative Negative 06/05/2021 10:39 EDT [facility] Blood VENOUS BLOOD / Unknown 06/02/2021 11:50 EDT 06/02/2021 21:00 EDT Provider Outr Resulting Lab CHEMISTRY & BLOOD GAS ORDERABLES Performing Organization Address City/[facility]/ZIP Co de Phone Number [facility] [address] [place] [phone] from Last 3 Months or Most Recently Relevant to Health Maintenance Advance Directives For more information, please contact: [phone] * Full Code (Latest Code Status on File) Date Activated Date Inactivated Comments 02/08/2014 8:03 02/08/2014 16:48 Care Teams Operations Specialist Relationship Specialty Start Date End Date Arelis Michele MD [address] [place] [phone] [facility] - General 02/08/14
--- OUTSIDE RECORDS SUMMARY | 2024-04-06 02:33 | XMS_ITS | Encounter Summary ---
Author Organization [facility] [place] [address] Care Team Providers Care Instructor Kindergarten Name Role Phone Gloria Espinoza MD Primary Care Provider [phone] Reason for Visit * Reason Comments Rheumatoid Arthritis Encounter Details Date Type Department Care Team (Late st Contact Info) Description 01/17/2011 10:45 AM EDT Follow-[place] [address] Kandy Espana, RN [facility] [place] [address] Encounter for long-term (current) use of other medications; RA (rheumatoid arthritis); Osteopenia; GERD (gastroesophageal reflux disease); Hyperlipidemia Discharge Disposition: Home Social History Tobacco Use [...] Sign Reading Time Taken Comments Blood Pressure 129/79 01/17/2011 10:14 AM EDT Pulse 71 01/17/2011 10:14 AM EDT Temperature 36.9 ??C (98.4 ??F) 01/17/2011 10:14 AM E DT Respiratory Rate - - Oxygen Saturation 100% 01/17/2011 10:14 AM EDT Inhaled Oxygen Concentration - - Weight 99.8 kg (220 lb) 01/17/2011 10:14 AM EDT Height - - Body Mass Index - - documented in this encounter Patient Instructions * Patient Instructions* Kandy Espana APRN - 01/18/2011 12:00 PM EDT PA review - re-initiate. Paperwork to nursing. Increase medrol with dosepak prescribing schedule provided to patient. Will remain on 6 mg until office follow up next week. Continue with the current plan of care for rheumatoid arthritis. Ongoing osteoporosis prevention strategies, dietary intake, supplementation with vitamin D (no calcium due to kidney stones), ongoing weightbearing activity and exercise. Indications for holding Enbrel and methotrexate reviewed. Labs pending today. Followup planned in 8 weeks, sooner for concerns, questions or increased signs/symptoms. documented in this encounter Progress Notes * Kandy Espana APRN - 01/18/2011 11:39 AM EDT Established Patient Follow Up - Rheumatology Clinic Wesly Ybarra is a 60-year-old male seen for ongoing evaluation and management of rheumatoid arthritis. INTERVAL HISTORY: Mr. Ybarra reports interruption in Enbrel therapy related to insurance issues. Reports no Enbrel therapy x 6 weeks. Continues methotrexate 15 mg by mouth once weekly, folic acid 2-3 mg, Medrol 4 mg, and Tylenol as needed. Reports swelling and stiffness in hands, wrists, knees and stiffness in right hip. Bro-in-law with DM and CKD last week. Family supportive of sister and children. Coping. Reports no fever, chills, eye pain, visual changes, oral ulcers, + dry mouth, painful or dififcult swallowing, dry cough, heart burn, diarrhea or skin rash. Sleep is restful. Appetite good. No weightgain/loss. Denies recurrent sinus infection, other frequent infections or illness. PHYSICAL EXAMINATION: Constitutional: Pleasant adult male, in [...] ROM functional and nontender. Nontender to palpation over the cervical spine, tender at lower thoracic spine, lumbar spine and SI region (bilaterally). Bilateral shoulder ROM functional and nontender. Elbow ROM full and nontender without synovitis, extensor surface nodules, or effusion. Wrist ROM decreased, tender - trace swelling (RIGHT) MCPs and PIPs - swelling MCPS 2/3 RIGHT and LEFT. Makes an incomplete fist and near complete claw. Hip ROM functional; arises seated to standing unassisted. Bilateral knees - no effusion, erythema, or warmth. ROM full. Bilateral ankle ROM functional, tender; no swelling. MTPs nontender to compression. Skin: Intact without rash. ASSESSMENT: Rheumatoid arthritis, biologic interruption; chronic steroid use, osteopenia. PLAN: PA review - re-initiate. Paperwork to nursing. Increase medrol with dosepak prescribing schedule provided to patient. Will remain on 6 mg until office follow up next week. Continue with the current plan of care for rheumatoid arthritis. Ongoing osteoporosis prevention strategies, dietary intake, supplementation [...] 12:00 PM EDT Appointment [place] [phone] documented as of this encounter Procedures Procedure Name Priority Date/Time Associated Diagnosis Comments DIFFERENTIAL, AUTOMATED Routine 01/17/2011 11:21 AM EDT CREATININE Routine 01/17/2011 11:21 AM EDT Encounter for long-term (current) use of other medications SEDIMENTATION RATE Routine 01/17/2011 11 :21 AM EDT Encounter for long-term (current) use of other medications CBC (WITH DIFF) Routine 01/17/2011 11:21 AM EDT Encounter for long-term (current) use of other medications CRP, CARDIAC RISK (HS CRP) Routine 01/17/2011 11:21 AM EDT Encounter for long-term (current) use of other medications BUN Routine 01/17/2011 11:21 AM EDT Encounter for long-term (current) use of other medications HEPATIC FUNCTION PANEL Routine 11:21 AM EDT Encounter for long-term (current) use of other medications documented in this encounter Results * REFLEX LAB-A-DIFF (01/17/2011 11:21 AM EDT) Neutrophil % 54.7 34.0 - 71.0 % CERNER MILLENNIUM Neutrophil Absolute 5.34 1.50 - 6.30 x10(3)/mcL CERNER MILLENNIUM Lymph % 33.1 19.0 - 53.0 % CERNER MILLENNIUM Lymphocytes Abs 3.2 1.0 - 3.6 x10(3)/mcL CERNER MILLENNIUM Monocyte % 8.5 4.0 - 13.0 % CERNER MILLENNIUM Monocyte Abs 0.8 0.2 - 1.0 x10(3)/mcL CERNER MILLENNIUM Eos % 3.3 0.0 - 7.0 % CERNER MILLENNIUM Eosinophils [...] 0.05 x10(3)/mcL CERNER MILLENNIUM Blood specimen (specimen) 01/17/2011 11:21 AM EDT 01/17/2011 11:36 AM EDT Jennifer Hawley DO HEMATOLOGY ORDER DARIAN CERNER MILLENNIUM * (ABNORMAL) CBC (01/17/2011 11:21 AM EDT) White Blood Cell 9.8 4.0 - 10.0 x10(3)/mc L CERNER MILLENNIUM Red Blood Cell 5.23 4.63 - 6.08 x10(6)/mc L CERNER MILLENNIUM Hemoglobin 16.0 13.7 - 17.5 gm/dL CERNER MILLENNIUM Hematocrit 47.2 40.0 - 51.0 % CERNER MILLENNIUM Mean Cell Volume 90.2 79.0 - 92.0 fL CERNER MILLENNIUM Mean Cell Hemoglobin 30.6 25.6 - 32.2 pg CERNER MILLENNIUM Mean Cell Hemoglobin Concentration 33.9 32.0 - 36.5 gm/dL CERNER MILLENNIUM Platelet 234 145 - 370 x10(3)/mc L CERNER MILLENNIUM RDW Standard Deviation 46.3(H) 35.0 - 46.0 fL CERNER MILLENNIUM RDW coefficient of variation 14.2 10.9 - 14.4 % CERNER MILLENNIUM Mean Platelet Volume 10.2 9.0 - 12.0 fL CERNER MILLENNIUM Blood specimen (specimen) 01/17/2011 11:21 AM EDT 01/17/2011 11:36 AM EDT Jennifer Hawley DO HEMATOLOGY ORDER DARIAN CERNER MILLENNIUM * CRP - High sensitivity (01/17/2011 11:21 AM EDT) C-Reactive Protein High Sensitivity 13.2 mg/L CERNER MILLENNIUM Comment: Interpretations: 1) For [...] Cardiovascular Disease. ??Circulation 2003; 107:499-511 2. Dottie GOODEN. ??Clinical applications of C-reactive protein for cardiovascular disease detection and prevention. ??Circulation 2003; 107:363-369 Blood specimen (specimen) 01/17/2011 11:21 AM EDT 01/17/2011 11:36 AM EDT Jennifer Hawley DO CHEMISTRY ROMEO SOLORZANO [facility] * Creatinine, serum (01/17/2011 11:21 AM EDT) Creatinine 0.91 0.80 - 1.50 mg/dL CARLOS MILLDESTINIIUM Est Glomerular Filtration Rate >60 >=60 CERFRANKIE PenumbraENNIUM Comment: The National Kidney Disease Education Program [...] disease. References: http://nkdep.nih.gov/resources/NKDEP_Suggestn4Labs_0606_508.pdf http://www.kidney.org/professionals/kls/pdf/faq_gfr.pdf Blood specimen (specimen) 01/17/2011 11:21 AM EDT 01/17/2011 11:36 AM EDT Jennifer Hawley DO CHEMISTRY ROMEO SOLORZANO Performing Organization Address [facility] Co de Phone Number [facility] * BUN (01/17/2011 11:21 AM EDT) Blood Urea Nitrogen 13 10 - 20 mg/dL [facility] Blood specimen (specimen) 01/17/2011 11:21 AM EDT 01/17/2011 11:36 AM EDT Jennifer Hawley DO CHEMISTRY ROMEO SOLORZANO Performing Organization Address [facility] Co de Phone Number [facility] * Sedimentation rate, automated (01/17/2011 11:21 AM EDT) Sedimentation Rate Automated 6 0 - 15 mm/hr [facility] Blood specimen (specimen) 01/17/2011 11:21 AM EDT 01/17/2011 11:36 AM EDT Jennifer Hawley DO HEMATOLOGY ORDER DARIAN Performing Organization Address [facility] Co de Phone Number CERPalingen MILLENNIUM * Hepatic Function Panel (01/17/2011 11:21 AM EDT) Protein, Total 7.0 6.4 - 8.3 gm/dL CERNER MILLENNIUM Albumin 4.2 3.2 - 5.2 gm/dL CERNER MILLENNIUM Aspartate Aminotransferase 23 0 - 39 unit/L CERNER MILLENNIUM Alanine Aminotransferase 24 0 - 55 unit/L CERNER MILLENNIUM Alkaline Phosphatase 98 40 - 120 unit/L CERNER MILLENNIUM Bilirubin, Total 0.3 0.2 - 1.3 mg/dL CERNER MILLENNIUM Bilirubin, Direct 0.1 0.0 - 0.3 mg/dL CERNER MILLENNIUM Blood specimen (specimen) 01/17/2011 11:21 AM EDT 01/17/2011 11:36 AM EDT Jennifer Hawley DO CHEMISTRY ORDERA BLES Performing Organization Address [facility] de Phone Number CERFRANKIE NEGRETEArchitectural DailyIUM documented in this encounter Visit Diagnoses Diagnosis Encounter for long-term (current) use of other medications RA (rheumatoid arthritis) Rheumatoid arthritis Osteopenia Disorder of bone and cartilage, unspecified GERD (gastroesophageal reflux disease) Esophageal reflux Hyperlipidemia Other and unspecified hyperlipidemia documented in this encounter Care Teams Instructor Kindergarten Relationship Specialty Start Date End Date Golria Espinoza MD HOSPITALIST SERVICES [address] [place] [address] [place] [address] PCP - General 07/25/10 11/08/13 documented as of this encounter
--- OUTSIDE RECORDS SUMMARY | 2024-04-06 02:33 | XMS_ITS | Encounter Summary ---
Author Organization [facility] Address [address] [place] [address] Care Team Providers Care Pullman Car Clerk Name Role Phone Arelis Michele MD Primary Care Provider [phone] Encounter Details Date Type Department Care Team (Late st Contact Info) Description 09/22/2022 Lab Requisition [facility] Pathology & Laboratory Medicine - [facility] [address] [place] [address] Albaro Wade, [address] [place] [address] Neoplasm of unspecified behavior of bone, soft [...] Date/Time Associated Diagnosis Comments SURGICAL PATHOLOGY Today 09/21/2022 11 :15 EST Neoplasm of unspecified behavior of bone, soft tissue, and skin documented in this encounter Results * SURGICAL PATHOLOGY (09/21/2022 11:15 EST) Note to Patient The following pathology results have been interpreted by your pathologist and may be available to you before your health provider has had the opportunity to review them. Please allow time for your provider to receive these results and explore management options, if applicable. 09/24/2022 14:49 [facility] Final Diagnosis A. SKIN OF CHEEK, RIGHT MID, SHAVE BIOPSY: - Seborrheic keratosis, ulcerated. 09/24/2022 14:49 [facility] Attestation By the signature below, the attending physician certifies that they have 1) personally conducted a gross and/or microscopic examination of the described specimen(s), and/or personally interpreted the results of laboratory testing of the described specimen(s), and 2) personally rendered or confirmed the above diagnosis. 09/24/2022 14:49 [facility] at 1449 Clinical History Nonhealing skin lesion; clinical diagnosis code: D49.2 09/24/2022 14:49 [facility] Gross Description A. Received in formalin labelled with proper patient identification (initials R, D) and right mid cheek is a shave biopsy of dixon-pink scaly papule (0.8 x 0.5 x 0.1 cm). The margins are inked blue, the specimen is bisected and submitted entirely in A1. Kristy Irizarry 09/24/2022 5:51 09/24/2022 14:49 [facility] Performing Lab [facility] 09/24/2022 14:49 [facility] Scanned Images 09/24/2022 14:49 [facility] Tissue TISSUE SPECIMEN FROM SKIN / Unknown 09/21/2022 11:15 EST 09/22/2022 7:19 EST Albaro Wade DO PATHOLOGY ORDER DARIAN [facility] [address] [place] [address] documented in this encounter Visit Diagnoses Diagnosis Neoplasm of unspecified behavior of bone, soft tissue, and skin documented in this encounter Care Teams Pullman Car Clerk Relationship Specialty Start Date End Date Arelis Michele MD [address] [place] [id number] PCP - General 02/08/14 documented as of this encounter
--- OUTSIDE RECORDS SUMMARY | 2024-04-06 02:33 | XMS_ITS | Encounter Summary ---
Author Organization [facility] [place] [address] Care Team Providers Care Janitor Helper Name Role Phone Gloria Espinoza MD Primary Care Provider [phone] Encounter Details Date Type Department Care Team (Late st Contact Info) Description 11/02/2010 11:00 AM EST [place] [address] Kandy Espana, RN [facility] DR [place] [address] Discharge Disposition: Home Social History Tobacco Use [...] 12:00 PM EDT [place]ointment [place] [address] documented as of this encounter Procedures Procedure Name Priority Date/Time Associated Diagnosis Comments DIFFERENTIAL, AUTOMATED Routine 11/02/2010 11:42 AM EST CREATININE Routine 11/02/2010 11:42 AM EST CBC (WITH DIFF) Routine 11/02/2010 11:42 AM EST BUN Routine 11/02/2010 11:42 AM EST HEPATIC FUNCTION PANEL Routine 11/02/2010 11:42 AM EST documented in this encounter Results * REFLEX LAB-A-DIFF (11/02/2010 11:42 AM EST) Neutrophil % 42.2 34.0 - 71.0 % CERNER MILLENNIUM Neutrophil Absolute 3.04 1.50 - 6.30 x10(3)/mcL CERNER MILLENNIUM Lymph % 42.4 19.0 - 53.0 % CERNER MILLENNIUM Lymphocytes Abs 3.1 1.0 - 3.6 x10(3)/mcL CERNER MILLENNIUM Monocyte % 10.4 4.0 - 13.0 % CERNER MILLENNIUM Monocyte Abs 0.8 0.2 - 1.0 x10(3)/mcL CERNER MILLENNIUM Eos % 4.6 0.0 - 7.0 % CERNER MILLENNIUM Eosinophils Abs 0.3 0.0 - 0.5 x10(3)/mcL CERNER MILLENNIUM Basophil % 0.4 0.0 - 2.0 % CERNER MILLENNIUM Baso Absolute 0.0 0.0 - 0.2 x10(3)/mcL CERNER MILLENNIUM Immature Gran % 0.00 0.00 - 0.66 % CERNER MILLENNIUM Comment: Immature granulocytes(IG's)percentage and absolute count will include metamyelocytes, myelocytes, and promyelocytes. Blood smears from CBCs yielding IG's will be scanned manually for concordance. If this scan disagrees with the automated IG or if promyelocytes are noted, a manual differential will be performed. Immature Gran Absolute 0.00 0.00 - 0.05 x10(3)/mcL CERNER MILLENNIUM Blood specimen (specimen) 11/02/2010 11:42 AM EST 11/02/2010 11:48 AM EST Kandy Espana RN HEMATOLOGY ORDERABLE S [facility] * (ABNORMAL) CBC (11/02/2010 11:42 AM EST) White Blood Cell 7.2 4.0 - 10.0 x10(3)/mc L CERNER MILLENNIUM Red Blood Cell 5.22 4.63 - 6.08 x10(6)/mc L CERNER MILLENNIUM Hemoglobin 16.1 13.7 - 17.5 gm/dL CERNER MILLENNIUM Hematocrit 47.9 40.0 - 51.0 % CERNER MILLENNIUM Mean Cell Volume 91.8 79.0 - 92.0 fL CERNER MILLENNIUM Mean Cell Hemoglobin 30.8 25.6 - 32.2 pg CERNER MILLENNIUM Mean Cell Hemoglobin Concentration 33.6 32.0 - 36.5 gm/dL CERNER MILLENNIUM Platelet 266 145 - 370 x10(3)/mc L CERNER MILLENNIUM RDW Standard Deviation 47.8(H) 35.0 - 46.0 fL CERNER MILLENNIUM RDW coefficient of variation 14.3 10.9 - 14.4 % CERNER MILLENNIUM Mean Platelet Volume 10.0 9.0 - 12.0 fL CERNER MILLENNIUM Blood specimen (specimen) 11/02/2010 11:42 AM EST 11/02/2010 11:48 AM EST Kandy Espana RN HEMATOLOGY ORDERABLE S [facility] * CREATININE, SERUM (11/02/2010 11:42 AM EST) Creatinine 0.94 0.80 - 1.50 mg/dL CERNER MILLENNIUM Est Glomerular Filtration Rate >60 >=60 CERNER MILLENNIUM Comment: The National Kidney Disease Education Program (NKDEP) has recommended all laboratories report estimated GFR (eGFR) along with plasma creatinine measurements to assist you with recognition of early kidney disease. Caveats: ??Plasma creatinine should be at steady-state (unchanged within the past week). ??Patient age > = 18 years, and for Americans multiply eGFR by 1.2. At present, NKDEP does NOT recommend using [...] disease. References: http://nkdep.nih.gov/resources/NKDEP_Suggestn4Labs_0606_508.pdf http://www.kidney.org/professionals/kls/pdf/faq_gfr.pdf Blood specimen (specimen) 11/02/2010 11:42 AM EST 11/02/2010 11:48 AM EST Kandy Espana RN CHEMISTRY ORDERABLES Performing Organization Address [facility] Phone Number CERNER MILLENNIUM * BUN (11/02/2010 11:42 AM EST) Blood Urea Nitrogen 16 10 - 20 mg/dL CERNER MILLENNIUM Blood specimen (specimen) 11/02/2010 11:42 AM EST 11/02/2010 11:48 AM EST Kandy Espana RN CHEMISTRY ORDERABLES Performing Organization Address [facility] Phone Number CERNER MILLENNIUM * HEPATIC FUNCTION PANEL (11/02/2010 11:42 AM EST) Protein, Total 6.7 6.4 - 8.3 gm/dL CERNER MILLENNIUM Albumin 4.0 3.2 - 5.2 gm/dL CERNER MILLENNIUM Aspartate Aminotransferase 22 0 - 39 unit/L CERNER MILLENNIUM Alanine Aminotransferase 20 0 - 55 unit/L CERNER MILLENNIUM Alkaline Phosphatase 104 40 - 120 unit/L CERNER MILLENNIUM Bilirubin, Total 0.4 0.2 - 1.3 mg/dL CERNER MILLENNIUM Bilirubin, Direct 0.1 0.0 - 0.3 mg/dL CERNER MILLENNIUM Blood specimen (specimen) 11/02/2010 11:42 AM EST 11/02/2010 11:48 AM EST Kandy Espana RN CHEMISTRY ORDERABLES [facility] documented in this encounter Visit Diagnoses Not on filedocumented in this encounter Care Teams Janitor Helper Relationship Specialty Start Date End Date Gloria Espinoza MD HOSPITALIST SERVICES [address] [place] [address] [place] [address] PCP - General 07/25/10 11/08/13 documented as of this encounter
--- OUTSIDE RECORDS SUMMARY | 2024-04-06 02:33 | XMS_ITS | Encounter Summary ---
Author Organization [facility] [place] [address] Care Team Providers Care Agricultural Engineering Technologist Name Role Phone Gloria Espinoza MD Primary Care Provider [phone] Reason for Visit * Reason Onset Date Comments Medication Refill 01/01/2011 Encounter Details Date Type Department Care Team (Late st Contact Info) Description 01/01/2011 Refill [place] [address] Kandy Espana, RN [facility] [place] [address] RA (rheumatoid arthritis) (Primary Dx) Social History [...] 12:00 PM EDT Appointment [place] [id number] documented as of this encounter Visit Diagnoses Diagnosis RA (rheumatoid arthritis)- Primary Rheumatoid arthritis documented in this encounter Care Teams Agricultural Engineering Technologist Relationship Specialty Start Date End Date Gloria Espinoza MD HOSPITALIST SERVICES [address] [place] [address] [place] [address] PCP - General 07/25/10 11/08/13 documented as of this encounter
--- OUTSIDE RECORDS SUMMARY | 2024-04-06 02:33 | XMS_ITS | Encounter Summary ---
Author Organization [facility] [place] [address] Care Team Providers Care Catering Driver Name Role Phone Gloria Espinoza MD Primary Care Provider [phone] Encounter Details Date Type Department Care Team (Late st Contact Info) Description 08/01/2010 [place] [address] Kandy Espana, RN [facility] [place] [address] Social History Tobacco Use Types Packs/Day Years [...] 12:00 PM EDT [place] [address] documented as of this encounter Procedures Procedure Name Priority Date/Time Associated Diagnosis Comments DIFFERENTIAL, AUTOMATED Routine 08/01/2010 12:13 PM EST SEDIMENTATION RATE Routine 08/01/2010 12 :13 PM EST CBC (WITH DIFF) Routine 08/01/2010 12:13 PM EST CRP, CARDIAC RISK (HS CRP) Routine 08/01/2010 12:13 PM EST HEPATIC FUNCTION PANEL Routine 0 12:13 PM EST documented in this encounter Results * SEDIMENTATION RATE, AUTOMATED (08/01/2010 12:13 PM EST) Sedimentation Rate Automated 6 0 - 15 mm/hr CERNER MILLENNIUM Blood specimen (specimen) 08/01/2010 12:13 PM EST 08/01/2010 12:22 PM EST Kandy Espana RN HEMATOLOGY ORDERABLE S Performing Organization Address [facility] de Phone Number [facility] * HEPATIC FUNCTION PANEL (08/01/2010 12:13 PM EST) Pathologist [facility] Protein, Total 7.0 6.4 - 8.3 gm/dL CERNER MILLENNIUM Albumin 4.3 3.2 - 5.2 gm/dL CERNER MILLENNIUM Aspartate Aminotransferase 28 0 - 39 unit/L CERNER MILLENNIUM Alanine Aminotransferase 30 0 - 55 unit/L CERNER MILLENNIUM Alkaline Phosphatase 76 40 - 120 unit/L CERNER MILLENNIUM Bilirubin, Total 0.4 0.2 - 1.3 mg/dL CERNER MILLENNIUM Bilirubin, Direct 0.1 0.0 - 0.3 mg/dL CERNER MILLENNIUM Blood specimen (specimen) 08/01/2010 12:13 PM EST 08/01/2010 12:22 PM EST Kandy Espana RN CHEMISTRY ORDERABLES Performing Organization Address [facility] Co de Phone Number [facility] * HIGH SENSITIVITY CRP (08/01/2010 12:13 PM EST) C-Reactive Protein High Sensitivity 3.5 mg/L CERNER MILLENNIUM Comment: Interpretations: 1) For [...] prevention. ??Circulation 2003; [phone] Blood specimen (specimen) 08/01/2010 12:13 PM EST 08/01/2010 12:22 PM EST Kandy Espana RN CHEMISTRY ORDERABLES CARLOS NEGRETEENNIUM * REFLEX LAB-A-DIFF (08/01/2010 12:13 PM EST) Neutrophil % 46.4 34.0 - 71.0 % CERNER MILLENNIUM Neutrophil Absolute 3.59 1.50 - 6.30 x10(3)/mcL CERNER MILLENNIUM Lymph % 37.4 19.0 - 53.0 % CERNER MILLENNIUM Lymphocytes Abs 2.9 1.0 - 3.6 x10(3)/mcL CERNER MILLENNIUM Monocyte % 10.9 4.0 - 13.0 % CERNER MILLENNIUM Monocyte Abs 0.8 0.2 - 1.0 x10(3)/mcL CERNER MILLENNIUM Eos % 4.8 0.0 - 7.0 % CERNER MILLENNIUM Eosinophils Abs 0.4 0.0 - 0.5 x10(3)/mcL CERNER MILLENNIUM Basophil % 0.4 0.0 - 2.0 % CERNER MILLENNIUM Baso Absolute 0.0 0.0 - 0.2 x10(3)/mcL CERNER MILLENNIUM Immature Gran % 0.10 0.00 - 0.66 % CERNER MILLENNIUM Comment: Immature granulocytes(IG's)percentage and absolute count will include metamyelocytes, myelocytes, and promyelocytes. Blood smears from CBC's yielding IG's will be scanned manually for concordance. If this scan disagrees with the automated IG or if promyelocytes are noted, a manual differential will be performed. Immature Gran Absolute 0.01 0.00 - 0.05 x10(3)/mcL CERNER MILLENNIUM Blood specimen (specimen) 08/01/2010 12:13 PM EST 08/01/2010 12:22 PM EST Kandy Espana RN HEMATOLOGY ORDERABLE S CERNER MILLENNIUM * (ABNORMAL) CBC (08/01/2010 12:13 PM EST) White Blood Cell 7.7 4.0 - 10.0 x10(3)/mc L CERNER MILLENNIUM Red Blood Cell 5.47 4.63 - 6.08 x10(6)/mc L CERNER MILLENNIUM Hemoglobin 17.1 13.7 - 17.5 gm/dL CERNER MILLENNIUM Hematocrit 50.3 40.0 - 51.0 % CERNER MILLENNIUM Mean Cell Volume 92.0 79.0 - 92.0 fL CERNER MILLENNIUM Mean Cell Hemoglobin 31.3 25.6 - 32.2 pg CERNER MILLENNIUM Mean Cell Hemoglobin Concentration 34.0 32.0 - 36.5 gm/dL CERNER MILLENNIUM Platelet 228 145 - 370 x10(3)/mc L CERNER MILLENNIUM RDW Standard Deviation 46.9(H) 35.0 - 46.0 fL CERNER MILLENNIUM RDW coefficient of variation 14.0 10.9 - 14.4 % CERNER MILLENNIUM Mean Platelet Volume 10.1 9.0 - 12.0 fL ASHWINFRANKIE NEGRETEMIKAEL Blood specimen (specimen) 08/01/2010 12:13 PM EST 08/01/2010 12:22 PM EST Kandy Espana DIRECTOR OF GROUP SALES ORDERABLE S CARLOS DENNIS documented in this encounter Visit Diagnoses Not on filedocumented in this encounter Care Teams Catering Driver Relationship Specialty Start Date End Date Gloria Espinoza MD HOSPITALIST SERVICES [address] [place] [address] [place] [address] PCP - General 07/25/10 11/08/13 documented as of this encounter
--- OUTSIDE RECORDS SUMMARY | 2024-04-06 02:33 | XMS_ITS | Encounter Summary ---
Author Organization [facility] Address [address] [place] [address] Care Team Providers Care Steam Drier Operator Name Role Phone Arelis Michele MD Primary Care Provider [phone] Encounter Details Date Type Department Care Team (Late st Contact Info) Description 10/26/2022 Lab Requisition [facility] [place] [address] [place] [address] [id number] Albaro Wade, [address] ANTHONY [address] [place] [id number] Basal cell carcinoma of skin, unspecified Social History Tobacco Use Types Packs/Day Years [...] Date/Time Associated Diagnosis Comments SURGICAL PATHOLOGY Today 10/25/2022 12 :43 EST Basal cell carcinoma of skin, unspecified documented in this encounter Results * SURGICAL PATHOLOGY (10/25/2022 12:43 EST) Note to Patient The following pathology results have been interpreted by your pathologist and may be available to you before your health provider has had the opportunity to review them. Please allow time for your provider to receive these results and explore management options, if applicable. 10/31/2022 13:15 [facility] Final Diagnosis A. SKIN OF POSTERIOR AURICULAR REGION, RIGHT, EXCISION FOR FROZEN SECTION: - Basal cell carcinoma, nodular type. - Focally extends to the deep margin (single small focus). - Focally present at the 6 o'clock tip (single small focus). B. SKIN OF POSTERIOR AURICULAR REGION, RIGHT, ADDITIONAL 6 O'CLOCK, EXCISION: - No residual basal cell carcinoma identified. - Final margins negative. C. SKIN OF POSTERIOR AURICULAR REGION, RIGHT, ADDITIONAL CENTRAL DEEP CARTILAGE, EXCISION: - No residual basal cell carcinoma identified. - Final margins negative. 10/31/2022 13:15 [facility] Diagnosis Comment Final margins all interpreted as negative for tumor. Correlation is made with the prior biopsy report ([id number]). 10/31/2022 13:15 [facility] Attestation By the signature below, the attending physician certifies that they have 1) personally conducted a gross and/or microscopic examination of the described specimen(s), and/or personally interpreted the results of laboratory testing of the described specimen(s), and 2) personally rendered or confirmed the above diagnosis. 10/31/2022 13:15 [facility] at 1315 Intraoperative Consultation A. SKIN OF POSTERIOR AURICULAR REGION, RIGHT, FROZEN SECTION: -FSA1: 12 o'clock and 6 o'clock tips en face (levels 1+6): 6 o'clock tip positive for focal involvement by tumor; 12 o'clock tip clear. -FSA2: Levels 2, 3: Basal cell carcinoma focally present at deep margin; peripheral edges clear. -FSA3: Levels 4, 5: Basal cell carcinoma close to deep margin; peripheral edges clear. Frozen section diagnosis communicated to Dr. Albaro Wade/Clint Cee on 10/25/2022 at 1:[address] Jaxson Nair 10/25/22 (frozen section performed and evaluated at [facility]) 10/31/2022 13:15 [facility] Clinical History basal cell carcinoma 10/31/2022 13:15 [facility] Gross Description A. Received fresh labeled ? Wesly Ybarra? and ? Right posterior auricular? is an ovoid excision of dixon skin with the following attached orienting sutures: white = 3 o'clock, blue = 6 o'clock, black = 9 o'clock; measuring 1.7 cm 12-6 o'clock x 1.6 cm 9-3 o'clock and excised to a depth of 0.2 cm. The 12-3-6 o'clock margin is inked blue, the 6-9-12 o'clock margin green, deep orange. The specimen is serially sectioned from 12 o'clock to 6 o'clock and submitted as FSA1 through FSA3 for frozen section with the interpretation as rendered above. BLOCK SUTHERLAND: A1: 12 o'clock tip, en face, portion of FSA1 control. A2-A5: Consecutive central sections, FSA2 and FSA3 controls. A6: 6 o'clock tip, en face, portion of FSA1 control. B. Received in formalin labeled ? Wesly Ybarra? and ? 6 o'clock resection, new margins inked purple? is a crescent shaped piece of dixon skin with purple ink along 1 edge designating new margin. The specimen has a length of 1.5 cm, width of 0.5 cm, and is excised to a depth of 0.2 cm. The new margin is inked green and the old margin black. The specimen is serially sectioned and entirely submitted in 2 cassettes. C. Received in formalin labeled ? Wesly Ybarra? and ? central deep cartilage-new margins inked purple? is a roughly triangular shaped piece of firm dixon tissue measuring 1.0 x 1.0, with a depth of 0.2 cm. One surface is purple, designating the new margin, which is overlaid by black ink. The tissue is serially sectioned perpendicular to ink and entirely submitted in 1 cassette. 10/31/2022 13:15 [facility] Performing Lab [facility] 10/31/2022 13:15 [facility] Scanned Images 10/31/2022 13:15 [facility] Tissue TISSUE SPECIMEN FROM SKIN / Unknown 10/25/2022 12:43 EST 10/26/2022 14:07 EST Tissue specimen (specimen) SPECIMEN FROM SKIN / Unknown 10/25/2022 12:43 EST 10/26/2022 14:07 EST Tissue specimen (specimen) SPECIMEN FROM SKIN / Unknown 10/25/2022 12:43 EST 10/26/2022 14:07 EST Albaro Wade DO PATHOLOGY ORDER DARIAN [facility] [address] [place] [address] documented in this encounter Visit Diagnoses Diagnosis Basal cell carcinoma of skin, unspecified documented in this encounter Care Teams Steam Drier Operator Relationship Specialty Start Date End Date Arelis Michele MD [address] [place] [address] PCP - General 02/08/14 documented as of this encounter
--- OUTSIDE RECORDS SUMMARY | 2024-04-06 02:33 | XMS_ITS | Encounter Summary ---
Author Organization [facility] [place] [address] Care Team Providers Care X Ray Equipment Mechanic Name Role Phone Gloria Espinoza MD Primary Care Provider [phone] Encounter Details Date Type Department Care Team (Late st Contact Info) Description 01/17/2011 Orders [place] [phone] Knady Espana, RN [facility] [place] [address] Encounter for long-term (current) use of other [...] 12:00 PM EDT [place] [phone] documented as of this encounter Results * Creatinine, serum (01/17/2011 11:21 AM EDT) Creatinine 0.91 0.80 - 1.50 mg/dL CERNER MILLENNIUM Est [...] DO CHEMISTRY ORDERA BLES Performing Organization Address [facility] de Phone Number Social IQ (Social Influence Quotient) * BUN (01/17/2011 11:21 AM EDT) Blood Urea Nitrogen 13 10 - 20 mg/dL CERFRANKIE StripeENNIUM Blood specimen (specimen) 01/17/2011 11:21 AM EDT 01/17/2011 11:36 AM EDT Jennifer Hawley DO CHEMISTRY ORDERA BLES Performing Organization Address [facility] de Phone Number CERNER MILLENNIUM * Sedimentation rate, automated (01/17/2011 11:21 AM EDT) Sedimentation Rate Automated 6 0 - 15 mm/hr CERNER MILLENNIUM Blood specimen (specimen) 01/17/2011 11:21 AM EDT 01/17/2011 11:36 AM EDT Jennifer Hawley DO HEMATOLOGY ORDER DARIAN Performing Organization Address [facility] de Phone Number CERNER MILLENNIUM * Hepatic Function Panel (01/17/2011 11:21 [...] DO CHEMISTRY ORDERA BLES Performing Organization Address [facility] de Phone Number CERNER MILLENNIUM * (ABNORMAL) CBC (01/17/2011 11:21 [...] DO CHEMISTRY ORDERA BLES Performing Organization Address City/State/[facility] Co de Phone Number [facility] documented in this encounter Visit Diagnoses Diagnosis Encounter for long-term (current) use of other medications- Primary documented in this encounter Care Teams X Ray Equipment Mechanic Relationship Specialty Start Date End Date Gloria Espinoza MD HOSPITALIST SERVICES [address] [place] [address] [place] [address] PCP - General 07/25/10 11/08/13 documented as of this encounter
--- OUTSIDE RECORDS SUMMARY | 2024-04-06 02:34 | XMS_ITS | Encounter Summary ---
Author Organization [facility] Address [address] [place] [address] Care Team Providers Care Diagnostic Tech Name Role Phone Austin Medel MD Primary Care Provider Unavailab le Encounter Details Date Type Department Care Team (Late st Contact Info) Description 02/20/2011 Results Only [facility] [phone] Allen Liao, [address] [place], [place] [id number] Social History Tobacco Use Types Packs/Day Years Used Date Smoking Tobacco: Never Assessed Sex and Gender Information Value Date Recorded Sex Assigned at Not on file Gender Identity Not on file Sexual Orientation Not on file documented as of this encounter Plan of Treatment Not on file documented as of this encounter Procedures Procedure Name Priority Date/Time Associated Diagnosis Comments SURGICAL PATHOLOGY Routine 02/20/2011 0:00 EDT documented in this encounter Results * SURGICAL PATHOLOGY (02/20/2011 0:00 EDT) Pathology Report: SURGICAL PATHOLOGY REPORT ? Reports generated via electronic interface contain original data; ? however they are lacking the format of the original report. ? Caution should be taken when reading/interpreting unformatted reports. ? Name: ? RAMSDELL, LEEANNE M ? Accession #: ? [id number] ? : ? 1950 (Age: 60) ??M ? Collect Date: ? 02/20/2011 ? Location: ? [facility] ? Receive Date: ? 02/21/2011 ? Provider: ALLEN M LIAO DO ? Copy to: ? Final Pathologic Diagnosis: ? A. ?Tongue, right anterior, biopsy: ? 1. ?Squamous mucosa with pseudoepitheliomatous hyperplasia, ? hyperkeratosis and parakeratosis, and ballooning changes of the keratinocytes. ?? See comment. ? 2. ?Negative for dysplasia or malignancy. ? B. ?Tongue, left anterior, biopsy: ? 1. ?Squamous mucosa with pseudoepitheliomatous hyperplasia, ? hyperkeratosis and parakeratosis, and ballooning changes of the keratinocyte. ?? See comment. ? 2. ?Negative for dysplasia or malignancy. ? Comment: ? The changes seen in these biopsies appear that of reactive. Correlation ? with clinical features, such as chemical/physical irritation, is essential. ? This case has been seen in consultation by Dr. Mike Garza who agrees with the ? above diagnosis. (Dr. Herbert)/mpl ? Document reviewed and electronically signed by: ? Gopi Moy, MD ? Report ??Date: 02/26/2011 16:36 ? By the signature above, the attending physician certifies that he/she has ? personally conducted a gross and/or microscopic examination of the described ? specimens and rendered or confirmed the above diagnosis. ? Specimen(s) Received: ? A. ?Right anterior tongue lesion ? B. ? Left anterior tongue lesion ? Clinical History: ? Ant tongue lesion x2; clinical diagnosis code: 235.1 ? Gross Description: ? Received in formalin labelled Leeanne Ybarra and R anterior tongue ? lesion is a 0.4 x 0.4 x 0.1 cm white slightly irregular piece of firm tissue. ?? The trisected specimen is submitted entirely as (A). ? Received in formalin labelled Leeanne Ybarra and L ant tongue lesion is a ?? 0.5 x 0.4 x 0.1 cm white slightly irregular piece of tissue which is trisected ?? and submitted entirely as (B). ??(J. Jazmynesiana lilia)/tmg ? End of Report ? MAL SONG 02/20/2011 02/21/2011 17: 09 EDT Allen Liao DO PATHOLOGY ORDER DARIAN [facility] [address] [place] [address] documented in this encounter Visit Diagnoses Not on filedocumented in this encounter Care Teams Diagnostic Tech Relationship Specialty Start Date End Date Austin Medel MD PCP - General 11/17/09 02/22/11 documented as of this encounter
--- OUTSIDE RECORDS SUMMARY | 2024-04-06 02:34 | XMS_ITS | Encounter Summary ---
Author Organization [facility] Address [address] [place] [address] Care Team Providers Care Senior Talent Management Consultant Name Role Phone Augustus Medel MD Primary Care Provider Unavailab le Encounter Details Date Type Department Care Team (Late st Contact Info) Description 04/20/2004 Results Only [facility] [address] [place] [address] Augustus Morin MD [address] [place] [phone] Social History Tobacco Use Types Packs/Day Years Used Date Smoking Tobacco: Never Assessed Sex and Gender Information Value Date Recorded Sex Assigned at Not on file Gender Identity Not on file Sexual Orientation Not on file documented as of this encounter Plan of Treatment Not on file documented as of this encounter Procedures Procedure Name Priority Date/Time Associated Diagnosis Comments SURGICAL PATHOLOGY Routine 04/20/2004 0:00 EDT documented in this encounter Results * SURGICAL PATHOLOGY (04/20/2004 0:00 EDT) Pathology Report: SURGICAL PATHOLOGY REPORT Reports generated via electronic interface contain original data; however they are lacking the format of the original report. Caution should be taken when reading/interpreti ng unformatted reports. Name: ? LEEANNE AGEE ? Accession #: ? [id number] ? : ? 1950 (Age: 53) ??M ? Collect Date: ? 04/20/2004 ? Location: ? [facility] ? Receive Date: ? 04/21/2004 ? Provider: AMY MORIN MD Copy to: AUGUSTUS MEDEL MD ? Final Pathologic Diagnosis: ? Skin of leg, left, excision: - Dermatofibroma (benign fibrous histiocytoma). Document reviewed and electronically signed by: Cristian Richard MD Report ??Date: 04/24/2004 17:06 By the signature above, the attending physician certifies that he/she has personally conducted a gross and/or microscopic examination of the described specimens and rendered or confirmed the above diagnosis. Specimen(s) Received: ? Lesion left leg Clinical History: ? Not listed Gross Description: ? Received in formalin labelled Ramsdell and lesion L leg is an unoriented skin ellipse measuring 1.6 x 0.8 cm and excised to a depth of up to 0.5 cm. ??There is an eccentric 0.2 cm diameter dark brown macule. ??The specimen is inked, serially sectioned, and entirely submitted as follows: BLOCK SUTHERLAND A1 ?Central sections A2 ?Distal tips reverse en face (Dr. King)/[facility] End of Report MAL SONG 04/20/2004 04/21/2004 15: 19 EDT Augustus Morin MD PATHOLOGY ORDERABLES MAL SONG [address] [place] [address] documented in this encounter Visit Diagnoses Not on filedocumented in this encounter Care Teams Senior Talent Management Consultant Relationship Specialty Start Date End Date Augustus Medel MD PCP - General 11/17/09 02/22/11 documented as of this encounter
--- OUTSIDE RECORDS SUMMARY | 2024-04-06 02:34 | XMS_ITS | Encounter Summary ---
Author Organization [facility] Address [address] [place] [address] Care Team Providers Care Juvenile Probation Officer Name Role Phone Unavailable Primary Care Provider Unavailabl e Encounter Details Date Type Department Care Team (Late st Contact Info) Description 08/17/2008 Before PRISM Converted Visit (Maple) [facility] - Maple conversion [address] [place] [address] Doe Macias, DO [address] [facility] [address] [place], [place] [id number] Social History Tobacco Use Types Packs/Day Years Used Date Smoking Tobacco: Never Assessed Sex and Gender Information Value Date Recorded Sex Assigned at Not on file Gender Identity Not on file Sexual Orientation Not on file documented as of this encounter Plan of Treatment Not on file documented as of this encounter Procedures Procedure Name Priority Date/Time Associated Diagnosis Comments SURGICAL PATHOLOGY Routine 08/17/2008 0:00 EST documented in this encounter Results * SURGICAL PATHOLOGY (08/17/2008 0:00 EST) Pathology Report: SURGICAL PATHOLOGY REPORT ? Reports generated via electronic interface contain original data; ? however they are lacking the format of the original report. ? Caution should be taken when reading/interpreti ng unformatted reports. ? Name: ? LEEANNE AGEE ? Accession #: ? [id number] ? : ? 1950 (Age: 57) ??M ? Collect Date: ? 08/17/2008 ? Location: ? [facility] ? Receive Date: ? 08/17/2008 ? Provider: DOE MACIAS DO ? Copy to: KAMILA READY MD ? Final Pathologic Diagnosis: ? A. ?Stomach, antrum, biopsy: ? 1. ?Mild chronic gastritis. ? 2. ? No Helicobacter pylori-like organisms identified on H+E stained slides. ?? B. ?Stomach, polyp, biopsy: ? 1. ?Fundic gland polyp. ? C. ?Stomach, fundus, biopsy: ? 1. ?No pathologic features. ? D. ?Esophagus, distal, biopsy: ? 1. ?Reactive squamous mucosa with increase in intraepithelial ? eosinophils (maximum of 13/HPF). ??See comment. ? E. ?Esophagus, mid, biopsy: ? 1. ?Reactive esophageal mucosa with basal cell hyperplasia and ? elongation of rete ridges. ??See comment. ? F. ?Esophagus, proximal, biopsy: ? 1. ?Reactive esophageal mucosa with basal cell hyperplasia and ? elongation of the rete ridges. See comment. ? Comment: ? The findings present in the esophageal biopsies (D, E and F) are most ? compatible with reflux disease. ??However, clinical correlation is recommended to rule out eosinophilic esophagitis. ??(Dr. Yates)/tmg ? Document reviewed and electronically signed by: ? Varinder Yates MD ? Report ??Date: 08/19/2008 16:05 ? By the signature above, the attending physician certifies that he/she has ? personally conducted a gross and/or microscopic examination of the described ? specimens and rendered or confirmed the above diagnosis. ? Specimen(s) Received: ? A. ?Bx antrum (#1) ? B. ? Bx stomach polyp (#2) ? C. ? Bx fundus (#3) ? D. ? Bx distal esophagus (#4) ? E. ? Bx mid esophagus (#5) ? F. ? Bx proximal esophagus (#6) ? Clinical History: ? Dysphagia, GERD ? Gross Description: ? Received in [facility] labelled Ramsdell and bx antrum is a dixon-pink, ?? irregular, soft tissue measuring 0.3 x 0.2 x 0.2 cm. ??The specimen is entirely ?? submitted as (A). ? Received in [facility] labelled Ramsdell and bx stomach polyp are two ? dixon-pink, irregular, soft tissues measuring 0.2 x 0.2 x 0.1 cm and 0.4 x 0.2 x ?? 0.2 cm. ??The specimens are entirely submitted as (B). ? Received in [facility] labelled Amada and bx fundus is a dixon-pink, ? irregular, soft tissue measuring 0.4 x 0.2 x 0.1 cm. ??The specimen is entirely ?? submitted as (C). ? Received in [facility] labelled Ramsdell and bx distal esophagus are two ? dixon-pink, irregular, soft tissues ranging from 0.2 x 0.2 x 0.1 cm to 0.6 x 0.1 x 0.1 cm. The specimens are entirely submitted as (D1) and (D2). ? Received in [facility] labelled Amada and bx mid esophagus is a dixon-pink, irregular, soft tissue measuring 0.4 x 0.2 x 0.1 cm. ??The specimen is entirely ?? submitted as (E). ? Received in [facility] labelled Amada and bx proximal esophagus is a ? dixon-pink, irregular, soft tissue measuring 0.6 x 0.1 x 0.1 cm. ??The specimen is entirely submitted as (F). ??(Victor M Pastor)/sammy ? End of Report ? MAL SONG 08/17/2008 08/17/2008 9:0 7 EST Doe Macias DO PATHOLOGY ORDER [facility] [address] [place] [address] documented in this encounter Visit Diagnoses Not on filedocumented in this encounter
--- OUTSIDE RECORDS SUMMARY | 2024-04-06 02:34 | XMS_ITS | Encounter Summary ---
Author Organization [facility] Address [address] [place] [address] Care Team Providers Care Elementary School Science Teacher Name Role Phone Arelis Michele MD Primary Care Provider [phone] Encounter Details Date Type Department Care Team (Late st Contact Info) Description 05/26/2020 Lab Requisition [facility] Pathology & Laboratory Medicine - [address] [address] Outr Resulting Lab, Provider Social History Tobacco [...] Associated Diagnosis Comments AFB CULTURE/SMEAR, OTHER Routine 05/25/2020 10:00 EDT documented in this encounter Results * AFB CULTURE/SMEAR, OTHER (05/25/2020 10:00 EDT) Organism ID No acid-fast bacilli isolated VITEK SUSCEPTIBILITY 08/02/2020 10:26 [facility] AFB Smear No Acid Fast Bacilli Seen 08/02/2020 10:26 [facility] Sputum COLLECTION OF INDUCED SPUTUM / Unknown 05/25/2020 10:00 EDT 05/26/2020 21:36 EDT Provider Outr Resulting Lab MICROBIOLOGY - GENERAL ORDERABLES [facility] [address] [place] [address] documented in this encounter Visit Diagnoses Not on filedocumented in this encounter Care Teams [employer] Science Teacher Relationship Specialty Start Date End Date Arelis Michele MD [address] [place] [address] PCP - General 02/08/14 documented as of this encounter
--- OUTSIDE RECORDS SUMMARY | 2024-04-06 02:34 | XMS_ITS | Encounter Summary ---
Author Organization [facility] Address [address] [place] [address] Care Team Providers Care Lay Ups Assembler Name Role Phone Arelis Michele MD Primary Care Provider [phone] Encounter Details Date Type Department Care Team (Late st Contact Info) Description 06/02/2021 Lab Requisition [facility] Pathology & Laboratory Medicine - [address] [address] Outr Resulting Lab, Provider Social History Tobacco [...] Procedure Name Priority Date/Time Associated Diagnosis Comments HOLD SST Today 06/02/2021 11:50 EDT HEPATITIS C AB W REFLEX TO HCV RNA BY PCR Today 06/02/2021 11:50 EDT HEPATITIS B CORE ANTIBODY (TOTAL) Today 06/02/2021 11:50 EDT HEPATITIS B SURFACE ANTIBODY Today 06/02/2021 11:50 EDT HEPATITIS B SURFACE ANTIGEN Today 06/02/2021 11:50 EDT documented in this encounter Results * HOLD SST (06/02/2021 11:50 EDT) Hold Hold 06/02/2021 22:16 EDT [facility] Blood VENOUS BLOOD / Unknown 06/02/2021 11:50 EDT 06/02/2021 21:01 EDT Provider Outr Resulting Lab LAB INFO SER VICE AND SUPPORT & PHONE RESULT Performing Organization Address [facility] Co de Phone Number [facility] [address] [place] [address] * HEPATITIS B SURFACE ANTIBODY (06/02/2021 11:50 EDT) Pathologist [facility] Hep B Surface Ab, Quantitative <3.1 See Note mIU/mL 06/05/2021 9:59 EDT [facility] Comment: Reference Range for Hep B Surface Ab, Quant: Positive: >= 10.0 mIU/mL Negative: ??< 10.0 mIU/mL Patient is presumed to not be immune to infection with Hepatitis B Virus. Hep B Surface Ab, Qualitative Negative See Note 06/05/2021 9:59 EDT [facility] Comment: Reference Range for Hep B Surface Ab, Qual: Unvaccinated: ??Negative Vaccinated: ??Positive Blood VENOUS BLOOD / Unknown 06/02/2021 11:50 EDT 06/02/2021 21:00 EDT Provider Outr Resulting Lab CHEMISTRY & BLOOD GAS ORDERABLES Performing Organization Address [facility]/ZIP Co de Phone Number [facility] [address] [place] [address] * HEPATITIS B CORE ANTIBODY (TOTAL) (06/02/2021 11:50 EDT) Pathologist [facility] Hepatitis B Core Ab, Total Negative Negative 06/05/2021 11:10 EDT [facility] Blood VENOUS BLOOD / Unknown 06/02/2021 11:50 EDT 06/02/2021 21:00 EDT Provider Outr Resulting Lab CHEMISTRY & BLOOD GAS ORDERABLES Performing Organization Address City/[facility]/ZIP Co de Phone Number [facility] [address] [place] [address] * HEPATITIS B SURFACE ANTIGEN (06/02/2021 11:50 EDT) Hep B Surface Ag Negative Negative 06/05/2021 10:09 EDT [facility] Blood VENOUS BLOOD / Unknown 06/02/2021 11:50 EDT 06/02/2021 21:00 EDT Provider Outr Resulting Lab CHEMISTRY & BLOOD GAS ORDERABLES Performing Organization Address City/[facility]/ZIP Co de Phone Number [facility] [address] [place] [address] * HEPATITIS C AB W REFLEX TO HCV RNA BY PCR (06/02/2021 11:50 EDT) Hep C Antibody Negative Negative 06/05/2021 10:39 EDT [facility] Blood VENOUS BLOOD / Unknown 06/02/2021 11:50 EDT 06/02/2021 21:00 EDT Provider Outr Resulting Lab CHEMISTRY & BLOOD GAS ORDERABLES Performing Organization Address City/[facility]/ZIP Co de Phone Number [facility] [address] [place] [address] documented in this encounter Visit Diagnoses Not on filedocumented in this encounter Care Teams Lay Ups Assembler Relationship Specialty Start Date End Date Arelis Michele MD [address] [place] [address] PCP - General 02/08/14 documented as of this encounter
--- OUTSIDE RECORDS SUMMARY | 2024-04-06 02:34 | XMS_ITS | Encounter Summary ---
Author Organization [facility] Address [address] [place] [address] Care Team Providers Care Farmworker Fur Name Role Phone Unknown, Provider Primary Care Provider [phone] Encounter Details Date Type Department Care Team (Late st Contact Info) Description 09/30/2012 Results Only [facility] Services - [facility] ([facility]) [address] [place], [place] [address] Doe Macias, [address] [facility] [address] [address] [place], [place] [id number] Social History Tobacco Use Types Packs/Day Years Used Date Smoking Tobacco: Never Assessed Sex and Gender Information Value Date Recorded Sex Assigned at Not on file Gender Identity Not on file Sexual Orientation Not on file documented as of this encounter Plan of Treatment Not on file documented as of this encounter Procedures Procedure Name Priority Date/Time Associated Diagnosis Comments SURGICAL PATHOLOGY Routine 09/30/2012 16 :14 EST documented in this encounter Results * SURGICAL PATHOLOGY (09/30/2012 16:14 EST) Pathology Report: SURGICAL PATHOLOGY REPORT Reports generated via electronic interface contain original data; however they are lacking the format of the original report. Caution should be taken when reading/interpreti ng unformatted reports. Name: ? LEEANNE AGEE ? Accession #: ? [id number] ? : ? 1950 (Age: 61) ??M ? Collect Date: ? 09/30/2012 ? Location: ? [facility] ? Receive Date: ? 09/30/2012 ? Provider: DOE MACIAS DO Copy to: KAMILA RODNEY MD ? Final Pathologic Diagnosis: A. ?Stomach, antrum, biopsy: 1. ?Gastric antral mucosa with reactive gastropathy. B. ?Esophagus, distal, biopsy: 1. ?Squamous mucosa with histologic features of reflux esophagitis. C. ?Esophagus, mid, biopsy: 1. ?Squamous mucosa with mild reactive changes. D. ?Esophagus, proximal, biopsy: 1. ?Squamous mucosa with mild reactive changes. Document reviewed and electronically signed by: ALEYDA PAUL MD Report ??Date: 10/06/2012 09:21 By the signature above, the attending physician certifies that he/she has personally conducted a gross and/or microscopic examination of the described specimens and rendered or confirmed the above diagnosis. Specimen(s) Received: A. ?Antrum B. ? Distal esophagus C. ? Mid esophagus D. ? Proximal esophagus Clinical History: ? Dysphagia; GERD Gross Description: ? Received in formalin labelled Leeanne Agee and antrum are two light dixon biopsies measuring 0.3 x 0.2 x 0.2 cm and 0.3 x 0.3 x 0.3 cm. ??The specimens are submitted intact as (A1). Received in formalin labelled Ramsdell, Leeanne and distal esophagus are three dixon-white biopsies which vary in size from 0.2 x 0.2 x 0.1 cm up to 0.3 x 0.3 x 0.2 cm. ??The specimens are submitted intact as (B1). Received in formalin labelled Ramsdell, Leeanne and mid esophagus bx are two light dixon biopsies measuring 0.4 x 0.2 x 0.1 cm each. ??The specimens are submitted intact as (C1). Received in formalin labelled Ramsdell, Leeanne and proximal esophagus are two pink-white biopsies measuring 0.4 x 0.2 x 0.1 cm and 0.5 x 0.2 x 0.1 cm. ??The specimens are submitted intact as (D1). ??(Cristobal Florian)/[facility] End of Report MAL SONG 09/30/2012 16:1 4 EST 09/30/2012 16:14 EST Doe Macias DO PATHOLOGY ORDER DARIAN MAL SONG [address] [place] [address] documented in this encounter Visit Diagnoses Not on filedocumented in this encounter Care Teams Farmworker Fur Relationship Specialty Start Date End Date Unknown, Provider, PCP - General 02/23/11 09/30/12 documented as of this encounter
--- OUTSIDE RECORDS SUMMARY | 2024-04-06 02:34 | XMS_ITS | Encounter Summary ---
Author Organization [facility] Address [address] [place] [address] Care Team Providers Care Fieldwork Coordinator Name Role Phone Unavailable Primary Care Provider Unavailabl e Encounter Details Date Type Department Care Team (Late st Contact Info) Description 11/15/2009 Results Only [facility] Laboratory Services - [facility] ([facility]) [address] [place], [place] [address] Doe Macias, DO [address] [facility] [address] [place], [place] [id number] Social History Tobacco Use Types Packs/Day Years Used Date Smoking Tobacco: Never Assessed Sex and Gender Information Value Date Recorded Sex Assigned at Not on file Gender Identity Not on file Sexual Orientation Not on file documented as of this encounter Plan of Treatment Not on file documented as of this encounter Procedures Procedure Name Priority Date/Time Associated Diagnosis Comments SURGICAL PATHOLOGY Routine 11/15/2009 0:00 EDT documented in this encounter Results * SURGICAL PATHOLOGY (11/15/2009 0:00 EDT) Pathology Report: SURGICAL PATHOLOGY REPORT ? Reports generated via electronic interface contain original data; ? however they are lacking the format of the original report. ? Caution should be taken when reading/interpreti ng unformatted reports. ? Name: ? CYNDIE, LEEANNE M ? Accession #: ? [id number] ? : ? 1950 (Age: 59) ??M ? Collect Date: ? 11/15/2009 ? Location: ? [facility] ? Receive Date: ? 11/16/2009 ? Provider: DOE MACIAS DO ? Copy to: KAMILA READY MD ? Final Pathologic Diagnosis: ? A. ?Colon, ascending, biopsy: ? 1. ?Tubular adenoma. ? B. ?Colon, 70 cm, biopsy: ? 1. ?Inflammatory/hyp erplastic polyp. ? Document reviewed and electronically signed by: ? SARTHAK Montelongo BUTNOR MD ? Report ??Date: 11/18/2009 13:08 ? By the signature above, the attending physician certifies that he/she has ? personally conducted a gross and/or microscopic examination of the described ? specimens and rendered or confirmed the above diagnosis. ? Specimen(s) Received: ? A. ?Ascending colon polyp ? B. ? Polyp 70 cm ? Clinical History: ? Colorectal screen ? Gross Description: ? Received in [facility]'s fixative labelled Leeanne Ybarra and ascending ?? colon polyp is a dixon-pink tissue measuring 0.8 x 0.4 x 0.4 cm. ??The specimen is trisected and submitted entirely as (A). ? Received in [facility]'s fixative labelled Leeanne Ybarra and polyp 70 cm are two dixon-pink tissues measuring 0.6 x 0.6 x 0.3 cm and 0.5 x 0.2 x 0.1 cm. ??The ?? larger specimen is trisected and submitted entirely as (B1) and the smaller ? specimen is entirely submitted as (B2). ([facility] ? End of Report ? MAL SONG 11/15/2009 11/16/2009 9:0 9 EDT Doe Macias DO PATHOLOGY ORDER [facility] [address] [place] [address] documented in this encounter Visit Diagnoses Not on filedocumented in this encounter
--- OUTSIDE RECORDS SUMMARY | 2024-04-06 02:34 | XMS_ITS | Encounter Summary ---
Author Organization [facility] Address [address] [place] [id number] Care Team Providers Care Engine Lathe Tender Name Role Phone Gloria Espinoza MD Primary Care Provider [phone] Encounter Details Date Type Department Care Team (Late st Contact Info) Description 02/04/2014 Results Only Imaging [facility] [phone] Uriah Sommers MD [address] [place] [id number] Social History Tobacco Use Types Packs/Day Years Used Date Smoking Tobacco: Never Assessed Sex and Gender Information Value Date Recorded Sex Assigned at Not on file Gender Identity Not on file Sexual Orientation Not on file documented as of this encounter Plan of Treatment Not on file documented as of this encounter Procedures Procedure Name Priority Date/Time Associated Diagnosis Comments LEFT AND RIGHT HEART CATH 02/08/2014 10:43 EDT documented in this encounter Results * LEFT AND RIGHT HEART CATH (02/08/2014 10:43 EDT) Anatomical Region Laterality Modality Other 02/08/2014 10:4 3 EDT Narrative 02/08/2014 23:23 EDT Cardiology [address] [place] [address] Catheterization Laboratory Study Diagnostic report Patient: Wesly Ybarra ? Study Date: ?02/08/2014 ?Accession #: ? [id number] : ? 1950 Referring Physician: Gloria Espinoza Diagnostic Attending: ??Todd Smalls Diagnostic Fellow: Jolanta Ruff ?? ATTESTATION: Dr. Todd Smalls was present and supervising for the entire procedure, I Dr. Jolanta Ruff was the initial author of this report. I, Dr. Todd Smalls have reviewed and agree with the findings of this report. PROCEDURE PLAN: A diagnostic study was performed without intervention. RESEARCH STUDY: Patient is not enrolled in any research studies. IMPRESSIONS: 1. Mild coronary artery disease. 2. Normal pulmonary artery pressure. SUMMARY: 1. HPI and indications: shortness of breath , with minimal exertion. Systolic ?? dysfunction by echo. 2. Left ventricle: Systolic function is normal. Wall motion is normal; there are ?? no regional wall motion abnormalities. 3. Left main: Normal. 4. LAD: Minor luminal irregularities. 5. Left circumflex: Minor luminal irregularities. 6. Right coronary: Minor luminal irregularities. 7. End diastolic pressure in the left ventricle is mildly elevated. Right heart ?? pressures are normal. RECOMMENDATIONS: Medical therapy and/or counseling. HISTORY: shortness of breath , with minimal exertion. Systolic dysfunction by echo. Functional status: ?? CCS class III (marked limitation of ordinary activity). Risk factors: ??Hypertension. Dyslipidemia. ??Medications: ??Beta blockers. Anti-anginal therapy. ??Aspirin. ??Clopidogrel (Plavix). LABS, PRIOR TESTS, PROCEDURES AND SURGERY: Serum creatinine (current admission) of 0.8 mg/dl. ??Prothrombin time (PT) of 10 sec. ??Hematocrit of 46 %. ??Platelet count of 212 th/ul. ??Serum potassium (K) of 4.1 mEq/l. ??Blood urea nitrogen of 15 mg/dl. ??Hemoglobin (pre-procedure) of 15.7 g/dl. ??International normalized ratio (INR) of 0.9. STUDY DATA: Study status: ??Cardiac cath: elective. ??Location: ??Catheterization laboratory. Sex: male. Patient is 63yr old. Weight: 95.2kg. Procedures performed: ?Right femoral vein access. ?Right heart catheterization. ?Right femoral artery access. ?Left heart catheterization with ventriculography. ?Left coronary angiography. ?Right coronary angiography. ?Right common femoral angiography. PROCEDURE: 1. ??Initial setup. The patient was brought to the laboratory in the fasting ?state. A baseline ECG was recorded. Surface ECG leads, automatic cuff blood ?pressure measurements, and pulse oximetric signals were monitored. 2. ??Skin preparation. The planned puncture sites were prepped with chlorhexidine ?and draped in the usual sterile manner. 3. ??Right femoral vein access. An 8F St. Tab ACT Ultimum sheath was advanced ?into the vessel. 4. ??Right heart catheterization. A S-tip Esperance catheter was successfully advanced ?to the right ventricle under fluoroscopic guidance. 5. ??Right femoral artery access. A 6F St. Tab ACT Ultimum sheath was advanced ?into the vessel. 6. ??Left heart catheterization with ventriculography. A 6F Pigtail catheter was ?advanced across the aortic valve to the left ventricle under fluoroscopic ?guidance. Contrast was injected by hand. 7. ??Selective left coronary angiography. A 6F FL4 catheter was advanced into the ?left coronary vessel ostium under fluoroscopic guidance. Contrast was ?injected by hand. Images were obtained in multiple projections. 8. ??Selective right coronary angiography. A 6F FR4 catheter was advanced into ?the right coronary vessel ostium under fluoroscopic guidance. Contrast was ?injected by hand. Images were obtained in multiple projections. 9. ??Selective right common femoral angiography, under fluoroscopic guidance. A ?catheter was advanced into the right common femoral artery. Contrast was ?injected by hand. Images were obtained. 10. Right femoral artery hemostasis. 6 FR Angioseal VIP was used at the access ?site. 11. Right femoral vein hemostasis. The sheath was removed. Manual compression ?was applied. STUDY COMPLETION: The estimated blood loss was 10ml. All catheters inserted during the procedure were removed. The patient tolerated the procedure well and was discharged from the lab. There were no complications. ??Administered medications: ?? Midazolam, for a total dose of 6mg. ??Fentanyl, for a total dose of 100mcg. ??Contrast: Isovue 370 100ml (total dose). ??Fluoroscopy dose: ??53.4cGy. CORONARY ARTERIES: The coronary circulation is right dominant. Left main: ??Normal. LAD: ??Minor luminal irregularities. Left circumflex: ??Minor luminal irregularities. Right coronary: ??Minor luminal irregularities. LEFT VENTRICLE: Systolic function is normal. Wall motion is normal; there are no regional wall motion abnormalities. HEMODYNAMICS: End diastolic pressure in the left ventricle is mildly elevated. Right heart pressures are normal. Pressure measurements across the aortic valve show no evidence of stenosis. + + + + Stage description ?? Condition1:Condition 1 - Honey Condition1:Condition 1 - ? Thermo ? + + + + Systemic cardiac ?? 5.4L/min, 2.49L/(min-m^2) ? 6.1L/min, 2.81L/(min-m^2) ?? output (Qs) ? + + + + HR, R-R, stroke ? 99bpm, 55ml ? 98bpm, 62ml ? volume ? + + + + RA pressure a/v (m) () ? () ? + + + + RV pressure s/d ? + + + + PA pressure s/d (m) () ? () ? + + + + PA wedge a/v (m) ?? () ? () ? + + + + LV pressure s/ed ?? 18 ? 121/18 ? + + + + Arterial pressure ?? 122/77 (96) ? 122/77 (96) ? s/d (m) ? + + + + Total systemic ? 1422dyn-sec/cm5 ? 1259dyn-sec/cm5 ? resistance ? + + + + * Electronically signed by Todd Smalls MD 2014-02-08 23:23 Procedure Note 02/08/[address] [place] [address] Catheterization Laboratory Study Diagnostic report Patient: Wesly Ybarra Study Date:02/08/2014 : 1950 Referring Physician: Gloria Espinoza Diagnostic Attending: Todd Smalls Diagnostic Fellow: Jolanta Ruff ATTESTATION: Dr. Todd Smalls was present and supervising for the entire procedure, IDrMelissa Ruff was the initial author of this report. I, Dr. Todd Smallshave reviewed and agree with the findings of this report. PROCEDURE PLAN: A diagnostic study was performed without intervention. RESEARCH STUDY: Patient is not enrolled in any research studies. IMPRESSIONS: 1. Mild coronary artery disease. 2. Normal pulmonary artery pressure. SUMMARY: 1. HPI and indications: shortness of breath , with minimal exertion.Systolic dysfunction by echo. 2. Left ventricle: Systolic function is normal. Wall motion is normal;there are no regional wall motion abnormalities. 3. Left main: Normal. 4. LAD: Minor luminal irregularities. 5. Left circumflex: Minor luminal irregularities. 6. Right coronary: Minor luminal irregularities. 7. End diastolic pressure in the left ventricle is mildly elevated. Rightheart pressures are normal. RECOMMENDATIONS: Medical therapy and/or counseling. HISTORY: shortness of breath , with minimal exertion. Systolic dysfunction by echo. Functional status: CCS class III (marked limitation of ordinaryactivity). Risk factors: Hypertension. Dyslipidemia. Medications: Beta blockers. Anti-anginal therapy. Aspirin. Clopidogrel (Plavix). LABS, PRIOR TESTS, PROCEDURES AND SURGERY: Serum creatinine (current admission) of 0.8 mg/dl. Prothrombin time (PT)of 10 sec. Hematocrit of 46 %. Platelet count of 212 th/ul. Serum potassium(K) of 4.1 mEq/l. Blood urea nitrogen of 15 mg/dl. Hemoglobin (pre-procedure)of 15.7 g/dl. International normalized ratio (INR) of 0.9. STUDY DATA: Study status: Cardiac cath: elective. Location: Catheterizationlaboratory. Sex: male. Patient is 63yr old. Weight: 95.2kg. Procedures performed: Right femoral vein access. Right heart catheterization. Right femoral artery access. Left heartcatheterization with ventriculography. Left coronary angiography. Right coronary angiography. Right common femoral angiography. PROCEDURE: 1. Initial setup. The patient was brought to the laboratory in thefasting state. A baseline ECG was recorded. Surface ECG leads, automatic cuffblood pressure measurements, and pulse oximetric signals were monitored. 2. Skin preparation. The planned puncture sites were prepped withchlorhexidine and draped in the usual sterile manner. 3. Right femoral vein access. An 8F St. Tab ACT Ultimum sheath wasadvanced into the vessel. 4. Right heart catheterization. A S-tip Esperance catheter was successfullyadvanced to the right ventricle under fluoroscopic guidance. 5. Right femoral artery access. A 6F St. Tab ACT Ultimum sheath wasadvanced into the vessel. 6. Left heart catheterization with ventriculography. A 6F Pigtailcatheter was advanced across the aortic valve to the left ventricle underfluoroscopic guidance. Contrast was injected by hand. 7. Selective left coronary angiography. A 6F FL4 catheter was advancedinto the left coronary vessel ostium under fluoroscopic guidance. Contrast was injected by hand. Images were obtained in multiple projections. 8. Selective right coronary angiography. A 6F FR4 catheter was advancedinto the right coronary vessel ostium under fluoroscopic guidance. Contrastwas injected by hand. Images were obtained in multiple projections. 9. Selective right common femoral angiography, under fluoroscopicguidance. A catheter was advanced into the right common femoral artery. Contrastwas injected by hand. Images were obtained. 10. Right femoral artery hemostasis. 6 FR Angioseal VIP was used at theaccess site. 11. Right femoral vein hemostasis. The sheath was removed. Manualcompression was applied. STUDY COMPLETION: The estimated blood loss was 10ml. All catheters inserted during theprocedure were removed. The patient tolerated the procedure well and was dischargedfrom the lab. There were no complications. Administered medications:Midazolam, for a total dose of 6mg. Fentanyl, for a total dose of 100mcg. Contrast: Isovue 370 100ml (total dose). Fluoroscopy dose: 53.4cGy. CORONARY ARTERIES: The coronary circulation is right dominant. Left main: Normal. LAD: Minor luminal irregularities. Left circumflex: Minor luminal irregularities. Right coronary: Minor luminal irregularities. LEFT VENTRICLE: Systolic function is normal. Wall motion is normal; there are no regionalwall motion abnormalities. HEMODYNAMICS: End diastolic pressure in the left ventricle is mildly elevated. Rightheart pressures are normal. Pressure measurements across the aortic valve showno evidence of stenosis. + + + + Stage description Condition1:Condition 1 - Honey Condition1:Condition 1- Thermo + + + + Systemic cardiac 5.4L/min, 2.49L/(min-m^2) 6.1L/min,2.81L/(min-m^2) output (Qs) + + + + HR, R-R, stroke 99bpm, 55ml 98bpm, 62ml volume + + + + RA pressure a/v (m) 18/15 (13) 18/15 (13) + + + + RV pressure s/d + + + + PA pressure s/d (m) () () + + + + PA wedge a/v (m) (16) (16) + + + + LV pressure s/ed 121/18 121/18 + + + + Arterial pressure 122/77 (96) 122/77 (96) s/d (m) + + + + Total systemic 1422dyn-sec/cm5 1259dyn-sec/cm5 resistance + + + + * Electronically signed by Todd Smalls MD 2014-02-08 23:23 Uriah Sommers MD CARDIAC CATH ORDERAB LES documented in this encounter Visit Diagnoses Not on filedocumented in this encounter Care Teams Engine Lathe Tender Relationship Specialty Start Date End Date Gloria Espinoza MD [address] [place] [id number] PCP - General 10/01/12 02/07/14 documented as of this encounter
--- OUTSIDE RECORDS SUMMARY | 2024-04-06 02:34 | XMS_ITS | Encounter Summary ---
Author Organization [facility] Address [address] [place] [address] Care Team Providers Care Automotive Electrician Helper Name Role Phone Lee Michele MD Primary Care Provider [phone] Encounter Details Date Type Department Care Team (Latest Contact Info) Description 02/08/2014 7:30 EDT - 02/08/2014 14:[address] [facility] [address] [place] [address] Todd Ochoa MD [address] [place] [address] [place] [phone] Discharge Disposition: Home or Self Care Social History Tobacco Use Types Packs/Day Years [...] Body Mass Index 28.48 02/08/2014 0812 EDT documented in this encounter Discharge Instructions * Discharge Instructions* Clotilde Yancey RN - 02/08/2014 13:18 EDT Diagnostic Cardiovascular Catheterization Discharge Instructions Department of Cardiology Leeanne Ybarra, your Procedure was performed by Dr. Ochoa . You have had a Cardiovascular Catheterization performed through a small incision in the artery in your right groin. Your artery was closed using the following method: angio seal Care of your Incision: For your leg incision, keep the area clean & dry. Leave the sterile dressing in place for 24 hours. After this you may shower but no tub baths, swimming, or hot tubs for 5 days. You may remove your dressing the next day in the shower & wash area gently. (It is best to soak the dressing off with water in the shower. ) Apply a sterile bandage such as a Band Aid to the site after your shower daily until the site heals. DO NOT apply powder or lotion or antibiotic ointment to this area. Activity: Unless your physician instructs you otherwise, continue to drink a lot of fluids for the next 24 hours to flush the dye out of your system. Avoid Driving x 24 hours. For LEG incisions, avoid climbing multiple flights of stairs and other activity that involves a lotof leg bending for 48-72 hours, particularly for the first 24 hours. No Heavy lifting (>10 pounds) for one week. Normal Observations: Soreness or tenderness at the site that may last one week. Bruising that could last 2 weeks. Formation of a small lump (dime to quarter size) which may last up to 6 weeks. Call your Physician immediately if you experience any of the following: Fever (temp >101), swelling, redness or signs of infection (including yellow discharge). Persistent and increasing pain at the site of the wound, in your extremity or your back. Numbness or tingling at a point below the wound Skin Rash If you have not been able to Urinate within 24 hours of the procedure. *If you note any signs of bleeding, such as bulging under the skin (size of a golf ball or larger)put Direct Pressure on the area and Call your Doctor immediately.If bleeding persists after 10 minutes with pressure held call 911. *Please make a follow-up appointment with your Primary Care Physician 2 weeks after your Cardiac Catheterization was performed. documented in this encounter Medications at Time of Discharge Medication Sig Dispensed Refills Start Date End Date albuterol (VENTOLIN HFA) 90 mcg/actuation inhaler Inhale 2 Puffs as directed every 6 hours as needed for Wheezing. aspirin 325 mg tablet Take 325 mg by mouth daily. ERGOCALCIFEROL, VITAMIN D2, (VITAMIN D ORAL) Take by mouth daily . losartan (COZAAR) 25 mg tablet Take 25 mg by mouth daily. lovastatin (MEVACOR) 10 mg tablet Take 10 mg by mouth daily. METHOTREXATE SODIUM (METHOTREXATE, ANTI-RHEUMATIC, ORAL) Take by mouth Takes six 2.5 mg tablets every Saturday. metoprolol (LOPRESSOR) 12.5 mg Take 12.5 mg by mouth 2 times daily. Multivitamins with Minerals tablet Take 1 Tab by mouth daily. OMEPRAZOLE (PRILOSEC ORAL) Take 40 mg by mouth 2 times daily . PREDNISONE ORAL Take 2 mg by mouth daily . TEMAZEPAM ORAL Take 30 mg by mouth at bedtime . terazosin (HYTRIN) 1 mg capsule Take 1 mg by mouth at bedtime. VENLAFAXINE HCL (EFFEXOR ORAL) Take 150 mg by mouth daily . documented as of this encounter Discharge Disposition Disposition Code Departure Means Destination Home or Self Care documented in this encounter Progress Notes * Clotilde Yancey RN - 02/08/2014 1207 EDT 1200 I have assumed care of this pt from Julius FongRN He denies discomfort. Right groin site remainsclan dry and intact. No sign of hematoma. 1310 ortho signs done. Out of bed to chair. Dr. Ochoa here to see him. Pt ambulated to bathroom. Discharge instructions reviewed with pt and his brother. Questions answered. They received a copy of these and a signed copy is in his chart. IV d/c'd intact. * Janet Fong RN - 02/08/2014 1130 EDT 1130 Patient admitted to CVU per stretcher from CCL status post L & RHC. Bed in lowest position. Side rails up. Call ponce within reach. Brother at bedside. Patient demonstrates willingness and understanding of post-procedure instructions. 1155 Report to Clotilde Yancey RN. * Janet Fong RN - 02/08/2014 0822 EDT Leeanne Ybarra arrived to CVU ambulatory. Patient alert and oriented x3. Bed in lowest position with call ponce within reach. Unit orientation and explanation of procedure completed with patient. Patient demonstrates willingness and understanding of pre-procedure education. * Jolanta Ruff MD - 02/05/2014 1034 EDT Cardiac catheterization screening note:-patient is a 63-year-old male with past medical history of rheumatoid arthritis on methotrexate and failed Enbrel therapy, hypertension, hyperlipidemia, gastroesophageal reflux disease and recently seen by Dr. Sommers for shortness of breath as well as chest discomfort. Shortness of breath apparently started in September of 2013 with moderate exertion. Subsequent evaluation has shown a decreased ejection fraction to 40% as well as diffuse hypokinesis on Echo, more pronounced in the LAD distribution. She found to have normal right ventricular pressures on echo however has abnormal PFTs. Patient also complained of some dull toothache-like chest discomfort for a longtime at rest , stress test in 2003 for the same discomfort was negative. Due to symptoms as well as abnormal echocardiogram and history of rheumatoid arthritis Dr. Sommers would like to rule out infiltrative cardiomyopathy so scheduled both right and left heart catheterization. he is currently on beta blockers Aspirin and Plavix was started by Dr Sommers No contrast allergies. GFR>60 Will proceed with LHC + RHC. * Landy Mehta RN - 02/05/2014 0953 EDT Precardiac Cath Nursing Checklist Recent Labs: 02/03/14 BUN 12, CREATININE 1.0, GFR >60 No results found for this basename: BUN, CREATININE, HGB, CALCGFR Hgt: Height: 182.9 cm (72) Wgt: Weight : 95.255 kg (210 lb) Allergies: Allergies Allergen Reactions ??? Levothyroxine ??? Lisinopril Dry cough ??? Other - See Comments [id number] - [place], [place] - [address] [facility] [address] [facility] [address] Cardiac History: Stress Test? No Reason for Cath: Abnormal echo, cardiomyopathy, CP Anginal equivalent:: Cardiac Procedures: no Stent Type/Size: Cardiac surgery: no Medical/Surgical History : Patient has a past medical history of Chest pain (radiating to neck); Shortness of breath; H/O rheumatoid arthritis; Abnormal echocardiogram (mild cardiomyopathy with diffuse hypokinesia, more pronounced in the lad distribution.); Depression; GERD (gastroesophageal reflux disease); Osteoporosis; Sicca syndrome; and Cardiomyopathy. Patient has past surgical history that includes Colon surgery. Chronic Risk Factors: NA Smoking and Alcohol intake: has no tobacco and alcohol history on file. History of complications from sedation: No Patient Instructions: Patient Instructed by: Patient instructed by Advanced Testing Nurse NPO Instructions: Patient/family instructed to have no solid food after midnight and to stop drinking clear liquids 3 hours prior to registration time. Diabetic Pre procedure Instructions: N/A Shower Instructions: Patient/family instructed to shower the night before or the day of the procedure. Registration location: Patient/family instructed to register on the 3rd floor [facility]. Transportation Issues: No Patient/family instructed that they will need a designated truck driver flatbed if they are discharged on the dayof the procedure. Medications: Medication list: Patient/family instructed to bring medication list with them on the day of the procedure. Anticoagulants/Antiplatelets: Takes Aspirin 325 mg daily, Takes Plavix 75 mg daily (300 mg taken on02/04/14) Anti-Anginal meds: B-Blockers Landy Mehta RN documented in this encounter H&P Notes * Jolanta Ruff MD - 02/08/2014 0816 EDT PCP: LEE MICHELE MD CC: SOB- NYHA class 3 HPI: Leeanne Ybarra is a 63 y.o. y/o male here for scheduled cardiac catheterization procedure. patient is with past medical history of rheumatoid arthritis on methotrexate and failed Enbrel therapy, hypertension, hyperlipidemia, gastroesophageal reflux disease and recently seen by Dr. Sommers for shortness of breath as well as chest discomfort. Shortness of breath apparently started in September of 2013 with moderate exertion. Subsequent evaluation has shown a decreased ejection fraction to 40% as well as diffuse hypokinesis on Echo, more pronounced in the LAD distribution. He found to have normal right ventricular pressures on echo howeverhas abnormal PFTs. Patient also complained of some dull toothache-like chest discomfort for 5 months at rest as well. At times lasts few seconds , but sometimes can stay for 2 days. Due to symptoms as well as abnormal echocardiogram and history of rheumatoid arthritis Dr. Sommers would like to rule out infiltrative cardiomyopathy so scheduled both right and left heart catheterization. he is currently on beta blockers Aspirin and Plavix was started by Dr Sommers No contrast allergies. GFR>60 PMH: Past Medical History Diagnosis Date ??? Chest pain radiating to neck ??? Shortness of breath ??? H/O rheumatoid arthritis ??? Abnormal echocardiogram 12/2013 mild cardiomyopathy with diffuse hypokinesia, more pronounced in the lad distribution. ??? Depression ??? GERD (gastroesophageal reflux disease) ??? Osteoporosis ??? Sicca syndrome ??? Cardiomyopathy PSH: Past Surgical History Procedure Laterality Date ??? Colon surgery Allergies: Allergies Allergen Reactions ??? Levothyroxine ??? Lisinopril Dry cough ??? Other - See Comments Calcium Medications: No current facility-administered medications on file prior to encounter. No current outpatient prescriptions on file prior to encounter. Social history: History Social History ??? Marital Status: Single Spouse Name: N/A Number of Children: N/A ??? Years of Education: N/A Occupational History ??? Not on file. Social History Main Topics ??? Smoking status: Never Smoker ??? Smokeless tobacco: Never Used ??? Alcohol Use: No ??? Drug Use: No ??? Sexually Active: Not on file Other Topics Concern ??? Not on file Social History Narrative ??? No narrative on file Family History : ROS: A 10 point review of systems is conducted. All other review of systems are negative otherwise noted in HPI. Physical Examination: Filed Vitals: 02/05/14 0900 02/08/14 0812 BP: 139/80 Temp: 37.3 ??C (99.1 ??F) TempSrc: Temporal Resp: 18 Height: 182.9 cm (72) 182.9 cm (72) Weight: 95.255 kg (210 lb) 95.255 kg (210 lb) SpO2: 96% General: Middle aged male in NAD HEENT: NCAT, No icterus Neck: Supple, No JVD appreciated CVS: S1, S2, RRR, no m/r/g Chest: Chest CTA b/l with good air movement Abdomen: Soft, NT, ND, BS+ Extremities: No LE edema, PPP 2+ Neuro: AAO x 3, no focal deficits appreciated Pertinent Labs: Lab Results Component Value Date/Time NA 139 02/08/2014812 Estimated Creatinine Clearance: 108.9 ml/min (by C-G formula based on Cr of 0.81). Lab Results Component Value Date/Time WBC 9.40 02/08/2014812 Lab Results Component Value Date/Time INR 0.9 02/08/2014812 No results found for this basename: CHOL, LDLBASE, HDL, TRIG, HGBA1C No results found for this basename: BNP, NTBNP, CK, MB, TROPONINI EKG: nSR, mod IVCD Assessment : LEEANNE YBARRA is a 63 y.o. y/o male with escalating symptoms of angina and ZEPEDA camefor elective cardiac catheterization procedure. -ASA grade 3 -GFR> 60 - PAD -no - Contrast allergy - no - Current Dual antiplatelet therapy ( Aspirin + Plavix ) - both - NO Obvious contraindications -No planned surgery in near future Plan : Will proceed with cardiac catheterization procedure as planned. Informed consent obtained. Patient and patient's family explained in detail of the procedure , risks and benefits. They expressed good understanding and are in agreement with the management plan . Questions were answered and concerns were addressed appropriately. Jolanta Ruff MD buildings and grounds superintendent - PGY 4 Pager - [phone]. documented in this encounter Procedure Notes * SEALER DRY CELL, SCAN 2 - 02/11/2014 0927 EDTAssociated Order(s): PROCEDURE REPORTS - SCANNED * Todd Ochoa MD - 02/08/2014 1117 EDT Cardiovascular Catheterization Laboratory Preliminary Report -- Catheterization Date of Service/Procedure: 02/08/2014 Attending Physician: Todd Ochoa MD Fellow: Jolanta Ruff MD Pre-Procedure Diagnosis/Indication: Leeanne Ybarra is a 63 y.o. year old male with Shortness of breath. NCDR Indication for PCI: Prior Stress Testing? Yes, with a negative result. Cardiac Medications: On two or more anti anginal medications at the time of catheterization? No Anesthesia: A moderate level of anesthesia/conscious sedation was used in addition to local anesthesia. Access: Right femoral artery and Right femoral vein Procedure: He was brought to the [facility] for the procedure: Diagnostic coronary/graft angiography, LV gram, Right heart cath and Left heart cath. Closure: Angioseal and Manual Post-Procedure Condition: The condition of the patient was Good. Complications: None. IV Contrast Total: 70 mL Estimated Blood Loss: Minimal. Unless otherwise noted, there were no specimens removed, cultures obtained, or drains retained. Research Study: Patient is not enrolled in a research study. Diagnostic Cardiac Study Results Left main: normal Left anterior descending: Mild irregularities Left circumflex: Mild irregularities Right coronary artery: Mild irregularities Grafts: na Left Ventriculography and Hemodynamic Results RA 13 RV 29/10 PA 29/15 mean 22 PCWP 12-16 CO TD=6.1, Honey 5.4 LVEDP 18 Sats PA 77, Ao 98 There was no gradient across the aortic valve. Left ventricular function: Normal Endovascular Study Results None Post-Procedure Diagnostic Conclusion: Medical therapy is indicated. Post Interventional Conclusion/Physician Disposition: (check one main category) Todd Ochoa MD Pager Number: [phone] 02/08/2014 11:17 documented in this encounter Plan of Treatment Not on file documented as of this encounter Procedures Procedure Name Priority Date/Time Associated Diagnosis Comments INVASIVE CARDIOLOGY REPORT-SCANNED 09/14/2015 10:12 EST PROCEDURE REPORTS - SCANNED 02/11/2014 9:27 EDT INVASIVE CARDIOLOGY REPORT-SCANNED 02/11/2014 9:27 EDT ECG REPORT - SCANNED 02/10/2014 11:12 EDT EKG 12-LEAD Routine 02/08/2014 8:55 EDT PROTIME STAT 02/08/2014 8:13 EDT COMPLETE BLOOD COUNT STAT 02/08/2014 8:13 EDT BUN STAT 02/08/2014 8:13 EDT CREATININE STAT 02/08/2014 8:13 EDT ELECTROLYTES STAT 02/08/2014 8:13 EDT documented in this encounter Results * INVASIVE CARDIOLOGY REPORT-SCANNED (09/14/2015 10:12 EST) 09/14/2015 10:1 2 EST Scan 2 [place] PROCEDURE/MINOR IBIS GICAL ORDERABLES * PROCEDURE REPORTS - SCANNED (02/11/2014 9:27 EDT) 02/11/2014 9:27 EDT Narrative 02/11/2014 9:50 EDT Procedure Note SEALER DRY CELL, SCAN 2 - 02/11/2014 9:27 EDT Scan 2 [place] PROCEDURE/MINOR IBIS GICAL ORDERABLES * INVASIVE CARDIOLOGY REPORT-SCANNED (02/11/2014 9:27 EDT) 02/11/2014 9:27 EDT Scan 2 [place] PROCEDURE/MINOR IBIS GICAL ORDERABLES * ECG REPORT - SCANNED (02/10/2014 11:12 EDT) 02/10/2014 11:1 2 EDT Scan 2 [place] PROCEDURE/MINOR IBIS GICAL ORDERABLES * EKG 12-LEAD (02/08/2014 8:55 EDT) 02/08/2014 8:55 EDT Narrative [facility] EKG - 02/08/2014 11:17 EDT ?[facility] ? Test Date: ?2014-02-08 Pat Name: ? LEEANNE YBARRA ? Department: ?? CVU ? Room: ? CVU07 Gender: ? M ?[place]: ?? [id number] : ?1950 ? Requested By: SPEEDY SREEDIVYA Order Number: [id number] ? Skyler CASTILLO: ?? TODD OCHOA MD ? Measurements Intervals ?[place] ? Rate: ? 92 ? P: ?38 IN: ? 188 ?QRS: ?6 QRSD: ? 112 ?T: ?36 QT: ? 355 ? QTc: ?441 ? Interpretive Statements SINUS RHYTHM MODERATE INTRAVENTRICULAR CONDUCTION DELAY Borderline ECG No previous ECG available for comparison I reviewed the tracing and agreed or edited the report. Electronically Signed On 02-08-14 11:17:26 EDT by TODD OCHOA MD. Procedure Note Todd Ochoa MD - 02/08/2014 [facility] Test Date: 2014-02-08 Pat Name: LEEANNE YBARRA Department: CVU Room: [facility] Gender: M [place]: [id number] : 1950 Requested By: SPEEDY VO Order Number: [id number] Reading MD: TODD OCHOA MD Measurements Intervals [place] Rate: 92 P: 38 IN: 188 QRS: 6 QRSD: 112 T: 36 QT: 355 QTc: 441 Interpretive Statements SINUS RHYTHM MODERATE INTRAVENTRICULAR CONDUCTION DELAY Borderline ECG No previous ECG available for comparison I reviewed the tracing and agreed or edited the report. ElectronicallySigned On 02-08-14 11:17:26 EDT by TODD OCHOA MD. Jolanta MADRID CARDIAC ECG ORDERAB LES Performing Organization Address City/[facility]/ZIP Co de Phone Number [facility] EKG * PROTIME (02/08/2014 8:13 EDT) Pro Time 10.0 9.5 - 12.3 secs [facility] I.N.R. 0.9 0.9 - 1.1 Ratio [facility] Comment: Moderate Intensity Coumadin INR = 2.0-3.0 Adjustments in anticoagulant therapy dose should be based upon the INR and NOT the Pro Time. Blood specimen (specimen) 02/08/2014 8:13 EDT 02/08/2014 8:36 EDT Jolanta MADRID HEMATOLOGY & PF4 OR DERABLES Performing Organization Address [facility] de Phone Number [facility] [address] [place] [address] * (ABNORMAL) HEMAGRAM (02/08/2014 8:13 EDT) WBC 9.40 4.0 - 10.4 K/cmm [facility] RBC 4.90 4.36 - 5.78 M/cmm [facility] Hemoglobin 15.7 13.8 - 17.3 gm/dl [facility] HCT 46.0 39.5 - 50.2 % [facility] MCV 94 81 - 95 fl [facility] MCH 32.0 27.6 - 33.0 pg [facility] MCHC 34.1 32.8 - 36.4 gm/dl [facility] PLT 212 141 - 320 K/cmm [facility] RDW-CV 15.0(H) 11.8 - 14.1 % [facility] Blood specimen (specimen) 02/08/2014 8:13 EDT 02/08/2014 8:36 EDT Jolanta MADRID HEMATOLOGY & PF4 OR DERABLES Performing Organization Address [facility] Co de Phone Number [facility] [address] [place] [address] * CREATININE (02/08/2014 8:13 EDT) Creatinine 0.81 0.66 - 1.25 mg/dl [facility] GFR, Calculated >60 >60 ml/min/1.7 3m2 [facility] Blood specimen (specimen) 02/08/2014 8:13 EDT 02/08/2014 8:36 EDT Jolanta Ruff BS CHEMISTRY & BLOOD G ORDERABLES Performing Organization Address [facility] Co de Phone Number [facility] [address] [place] [address] * BUN (02/08/2014 8:13 EDT) BUN 15 10 - 26 mg/dl [facility] Blood specimen (specimen) 02/08/2014 8:13 EDT 02/08/2014 8:36 EDT Jolanta Ruff [facility] CHEMISTRY & BLOOD G ORDERABLES Performing Organization Address [facility] Phone Number [facility] [address] [place] [address] * ELECTROLYTES (02/08/2014 8:13 EDT) Sodium 139 136 - 145 mEq/L [facility] Potassium 4.1 3.5 - 5.0 mEq/L [facility] Chloride 104 96 - 110 mEq/L [facility] CO2 28 24 - 32 mEq/L [facility] Blood specimen (specimen) 02/08/2014 8:13 EDT 02/08/2014 8:36 EDT Sotoblaine Speedy BS CHEMISTRY & BLOOD G ORDERABLES Performing Organization Address [facility] Co de Phone Number [facility] [address] [place] [address] documented in this encounter Visit Diagnoses Not on filedocumented in this encounter Administered Medications Inactive Administered Medications - up to 3 most recent administrations Medication Order MAR Action Action Date Dose Rate Site sodium chloride 0.9 % (NS) infusion 30 mL/hr, intravenous, CONTINUOUS, Starting on Sat02/08/14 at 0830, Until Sat02/08/14 at 1648, Routine, Preprocedure New Bag 02/08/2014 8:34 EDT 30 mL/hr 30 mL/hr documented in this encounter Discontinued Medications Medication Sig Discontinue Reason Start Date End Da te RITUXIMAB INTRAVENOUS Inject into the vein. Error 02/05/2014 clopidogrel (PLAVIX) 75 mg tablet Take 75 mg by mouth daily. 02/08/2014 documented as of this encounter Historical Medications * This list may reflect changes made after this encounter. Medication Sig Dispensed Refills Start Date End Date aspirin 325 mg tablet Take 325 mg by mouth daily. losartan (COZAAR) 25 mg tablet Take 25 mg by mouth daily. metoprolol (LOPRESSOR) 12.5 mg Take 12.5 mg by mouth 2 times daily. terazosin (HYTRIN) 1 mg capsule Take 1 mg by mouth at bedtime. TEMAZEPAM ORAL Take 30 mg by mouth at bedtime . PREDNISONE ORAL Take 2 mg by mouth daily . albuterol (VENTOLIN HFA) 90 mcg/actuation inhaler Inhale 2 Puffs as directed every 6 hours as needed for Wheezing. OMEPRAZOLE (PRILOSEC ORAL) Take 40 mg by mouth 2 times daily . VENLAFAXINE HCL (EFFEXOR ORAL) Take 150 mg by mouth daily . ERGOCALCIFEROL, VITAMIN D2, (VITAMIN D ORAL) Take by mouth daily . Multivitamins with Minerals tablet Take 1 Tab by mouth daily. METHOTREXATE SODIUM (METHOTREXATE, ANTI-RHEUMATIC, ORAL) Take by mouth Takes six 2.5 mg tablets every Saturday. lovastatin (MEVACOR) 10 mg tablet Take 10 mg by mouth daily. clopidogrel (PLAVIX) 75 mg tablet Take 75 mg by mouth daily. 02/08/2014 RITUXIMAB INTRAVENOUS Inject into the vein. 02/05/2014 added in this encounter Active and Recently Administered Medications Times are shown in EDT. Continuous Medication Order 02/06/2014 02/07/2014 02/08/2014 sodium chloride 0.9 % (NS) infusion (CANCELED) 30 mL/hr, intravenous, CONTINUOUS, Starting on Sat02/08/14 at 0830, Until Sat02/08/14 at 1648, Routine, Preprocedure 0834 (New Bag - Prov ider: Janet Fong, RN) documented in this encounter Orders Medications Ordered That Dane ht Not Have Been Administered Count Last Ordered Date First Ordered Date acetaminophen (TYLENOL) tablet 650 mg 1 05/2014 lidocaine-EPINEPHrine 2 %-1: 100,000 injection 5-10 mL 1 02/08/2014 Nursing Count Last Ordered Date First Orde red Date AMBULATE PATIENT 1 02/08/2014 CARDIAC MONITORING 1 02/08/2014 CARDIAC PROCEDURE ACCESS SITE 1 02/08/2014 CARDIAC PROCEDURE CLOSURE DEVICE 1 02/09/20 14 DISCONTINUE SALINE LOCK/IV/PICC 1 4 INSERT PERIPHERAL IV 1 02/08/2014 NOTIFY PHYSICIAN (SPECIFY) 2 02/08/2014 VTE PHARMACOLOGIC PROPHYLAXI S CURRENTLY ORDERED OR ON ALTERNATIVE THER 1 02/08/2014 Transfer Count Last Ordered Date First Orde red Date NOTIFY PPS OF DISCHARGE COMPLETE 1 02/09/20 14 Discharge Count Last Ordered Date First Orde red Date DISCHARGE PATIENT 1 02/08/2014 documented in this encounter Care Teams Automotive Electrician Helper Relationship Specialty Start Date End Date Lee Michele MD [address] [place] [address] PCP - General 02/08/14 documented as of this encounter
--- NOTE | 2024-04-06 07:00 | DI.CT_ITS ---
Exam(s) CT CHEST WO EXAM: CT CHEST WO CLINICAL HISTORY: follow up,recurrent infections,chronic cough,r05.3,b99.9. TECHNIQUE: Multi planar reconstructions were performed. CONTRAST MATERIAL: None COMPARISON: CT CT CHEST WO from 11/05/2023 CR XR CHEST 2V PA LATERAL from 12/30/2023 CR XR CHEST 2V PA LATERAL from 01/08/2024 FINDINGS: CHEST: LUNGS: Right hemidiaphragm is again noted to be elevated. Previously described nonspecific increased markings in the right lung are unchanged. In the left lung there is a new nodular infiltrate in the apicoposterior segment of the left upper lobe which measures 2.4 cm wide by 0.9 cm AP by 1.3 cm cran iocaudal. There are no new focal findings in trachea and mainstem bronchi. There are no pleural effusions. MEDIASTINUM: There is no obvious hilar nor mediastinal adenopathy. No obvious axillary adenopathy CARDIAC: Heart size is normal. There is no pericardial effusion.Caliber of the thoracic aorta is wit hin normal limits. VISUALIZED UPPER ABDOMEN:No adrenal masses. Small 2 millimeter calculus noted in the right kidney. Left kidney not visualized. No splenomegaly. OSSEOUS: No significant osseous lesions.Nonacute appearing compression fracture of T12 noted. No acu te fractures evident.. IMPRESSION: 1. There is a new 24 x 9 x 13 mm nodular infiltrate in the left upper lobe (apical posterior segment) which was not evident on CT scan of 11/05/2023. Recommend close follow-up to rule out malignancy. Recommend repeat CT scan in 3 months. 2. No pleural effusions nor obvious intrathoracic adenopathy. RADIATION DOSE DELIVERED: Total DLP DATA REPOSITORY: All CT scans at this facility are submitted to the National Radiology Data Registry (NRDR) Dose Index Registry (DIR) with the [employer] ([employer]). RADIATION OPTIMIZATION: All CT scans at this facility use at least one of these dose optimization te chniques: automated exposure control; mA and/or kV adjustment per patient size (includes targeted exa ms where dose is matched to clinical indication); or iterative reconstruction.
== END ==
PROVIDERS: PCP Family Medicine; Visit Provider Physician Assistant Surgical
DX: B99.9 Unspecified infectious disease (principal); R05.3 Chronic cough; R91.8 Other nonspecific abnormal finding of lung field
CPT/HCPCS: 71250

== ENCOUNTER 2024-04-07 03:18 | Outpatient (CLI) | payer OTHER, SELFPAY ==
--- OUTSIDE RECORDS SUMMARY | 2024-04-07 03:20 | XMS_ITS | Continuity of Care Document ---
Author Organization [facility] Address [address] [place] [address] Care Team Providers Care Machine Stonecutter Name Role Phone DELPHINE ZARCO Automatic Coin Machine Mechanic DIONE PATEL Purchasing Officer Assessment No assessment recorded. Plan of Treatment Reminders Order Date Submit Date Provider Last Modified By Organization Details Last Modified Time Details Appointments Follow Up 30 2023 08:10A M LEE MENESES Not available Not available Not available Lab influenza virus A + B + SARS-CoV- 2 (COVID19) Ag panel, rapid IA, upper respirato ry specimen 2023 024 [facility], [address] [place], [address], 03/27/2024 13:24:19 Referral None recorded. Procedures None recorded. Surgeries None recorded. Imaging None recorded. Medication Orders prednison e 10 mg tablet 2023 024 [facility], [address] [place], [address], 03/26/2024 15:40:11 Patient TargetsNo targets recorded. Patient InstructionsNo instructions recorded. 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 Referral for D isorder of skin and/or [...] men Influenza A negati ve Not Available [address], [address], 03/26/2024 14:53:57 03/27/20 24 03/27/2024 influ dominguez virus A + B + SARS- CoV-2 (COVI D19) Ag panel , rapid IA, upper respi rator y speci men Influenza B negati ve Not Available [address], [address], 03/26/2024 14:53:57 03/27/20 24 03/27/2024 influ dominguez virus A + B + SARS- CoV-2 (COVI D19) Ag panel , rapid IA, upper respi rator y speci men SARS-COV-2 negati ve Not Available [address], [address], 03/26/2024 14:53:57 03/27/20 24 03/27/2024 influ dominguez virus A + B + SARS- CoV-2 (COVI D19) Ag panel , rapid IA, upper respi rator y speci men Sample sent for PCR confirmation No Not Available [address], [address], 03/26/2024 14:53:57 04/06/20 24 04/06/2024 CT joaquín corbett Name: Jj biggsIván astudillo Krish Unit #: [id number] Loc: ABEL Morales er: Lee Joya Accoun t #: [id number] Status : REG CLI Primar y Care Provid er: Hannah Kong M.D. Date of Exam : Sex: M : 1950 Age: 73 Exam(s ) a CT:CT chest wo Exam(s ) CT CHEST WO EXAM: CT CHEST WO CLINIC AL HISTOR Y: follow up,rec urrent infect ions,c hronic cough, r05.3, b99.9. TECHNI QUE: Multi planar recons tructi ons were perfor med. CONTRA ST MATERI AL: None COMPAR BJ: CT CT CHEST WO from 2023 CR XR CHEST 2V PA LATERA L from 2023 CR XR CHEST 2V PA LATERA L from 2023 FINDIN GS: CHEST: LUNGS: Right hemidi aphrag m is again noted to be elevat ed. Previo usly descri bed nonspe cific increa sed markin gs in the right lung are unchan ged. In the left lung there is a new nodula r infilt rate in the apicop osteri or segmen t of the left upper lobe which measur es 2.4 cm wide by 0.9 cm AP by 1.3 cm cranio caudal . There are no new focal findin gs in trache a and mainst em bronch i. There are no pleura l effusi ons. MEDIAS TINUM: There is no obviou s hilar nor medias tinal adenop athy. No obviou s axilla ry adenop athy CARDIA C: Heart size is normal . There is no perica rdial effusi on.Isaac iber of the thorac ic aorta is within normal limits . VISUAL IZED UPPER ABDOME N:No adrena l masses . Small 2 millim eter calcul us noted in the right kidney . Left kidney not visual ized. No spleno megaly . OSSEOU S: No signif icant osseou s lesion s.Cher cute appear ing compre ssion fractu re of T12 noted. No acute fractu res eviden t.. IMPRES WILBERT: 1. 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 Recomm end close follow -up to rule out malign damaris. Recomm end repeat CT scan in 3 months . 2. No pleura l effusi ons nor obviou s intrat horaci c adenop athy. RADIAT ION DOSE DELIVE RED: Total DLP DATA REPOSI TORY: All CT scans at this facili ty are submit yudith to the [facility] al Radiol ogy Data Regist ry (NRDR) Dose Index Regist ry (DIR) with the [place] of Radiol ogy (ACR). RADIAT ION OPTIMI ZATION : All CT scans at this facili ty use at least one of these dose optimi zation techni ques: automa yudith exposu re contro l; mA and/or kV adjust ment per patien t size (inclu franki target ed exams where dose is matche d to clinic al indica tion); or iterat clara recons tructi on. 804- 010: Total DLP = 0.00 mGy-cm Ordere d By: Lee Joya CC: ------ ------ ------ ------ ------ ------ ------ ------ ------ ------ ------ ------ ---- Dictat ed By: Johnathon West M.D. 1644 Transc ribed By: Jenna CASTILLO,Diane peña 1644 This is privil eged, confid ential inform ation intend ed only for the provid er named. Any use or distri bution by any person other than this provid er is strict ly prohib ited. If you receiv e this report in error, please notify us immedi giuseppely at [phone] and return the origin al report to us at the addres s above. Thank- you. landry [facility] [address], [place], [address] 04/06/2024 20:40:24 Result Notes None recorded. Problems Name Status [...] F32.9; Problem Code Type: ICD-10; Not Available [facility] 3 05:28:17 Essential hypertension Active 201011/07/2020 - Comments only - Lee Meneses MD - per recent reading at [facility] I feel this is remaining under reasonable control. He will continue the metoprolol, terazosin. Also on isosorbide. Problem Code: I10; Problem Code Type: ICD-10; ENRIQUE LIMON MD [address], [place], [address] , [facility] 3 15:45:28 Hyperlipidemi a Active 201005/19/2019 - Comments only - Primitivo Brown - He will continue atorvastatin. Problem Code: E78.5; Problem Code Type: ICD-10; Not Available [facility] 3 05:28:17 Generalized anxiety disorder Active 201208/08/2021 - Comments only - Lee Meneses MD - improved now that he has a warm apartment to be in for the winter. He has his name on a list for a senior apartment complex also. He will remain on the wellbutrin and venlafaxine for now. Problem Code: F41.1; Problem Code Type: ICD-10; Not Available [facility] 3 05:28:17 Postprocedura l state finding Active 2012 Problem Code: Z98.89; Problem Code Type: ICD-10; Not Available [facility] 3 05:28:18 Gastrointesti nal tract excision Active 2012 Problem Code: Z90.49; Problem Code Type: ICD-10; Not Available [facility] 3 05:28:18 History of polyp of colon Active 2018 Problem Code: Z86.010; Problem Code Type: ICD-10; Not Available [facility] 3 05:28:18 Gastroesophag eal reflux disease without esophagitis Active 201011/07/2020 - Comments only - Lee Meneses MD - discussed trying to cut back on prilosec. He will continue the AM dose but d/c the PM. He continues on ranitidine at . Problem Code: K21.9; Problem Code Type: ICD-10; ENRIQUE LIMON MD [address], [place], [address] , [facility] 3 15:45:28 Sj??gren's syndrome Active 201308/11/2022 - Comments only - Lee Meneses MD - , Possible Sjogren's. He does have RA as well. Again he is learned to live with it for the most part. Problem Code: M35.00; Problem Code Type: ICD-10; Not Available [facility] 3 05:28:18 Overweight Active 2010 Problem Code: E66.3; Problem Code Type: ICD-10; Not Available [facility] 3 05:28:18 Insomnia Active 201008/08/2021 - Comments only - Lee Meneses MD - doing better on the trazadone, off the temazepam. Will continue to monitor. Problem Code: G47.00; Problem Code Type: ICD-10; Not Available [facility] 3 05:28:18 Osteoporotic fracture of vertebra Active 2010 Problem Code: M80.88xD; Problem Code Type: ICD-10; Not Available [facility] 3 05:28:19 Rheumatoid arthritis Active 201002/12/2023 - Comments only - Lee Meneses MD - He continues on rituxan, followed by rheumatology Problem Code: M06.9; Problem Code Type: ICD-10; MD [address], [place], [address] , [facility] 3 15:45:28 Rosacea Active 201203/18/2022 - Comments only - Lee Meneses MD - Which seems to have flared up with his accidentally using diclofenac gel instead of metronidazole gel. Explained the difference to him. 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 If he has not had improvement within 3 to 4 weeks to let us know. Problem Code: L71.9; Problem Code Type: ICD-10; MD [address], [place], [address] , [facility] 3 15:45:28 Secondary pulmonary hypertension Active 2014 Problem Code: I27.2; Problem Code Type: ICD-10; Not Available [facility] 3 05:28:19 Dyspnea Active 201407/05/2021 [...] R06.00; Problem Code Type: ICD-10; Not Available [facility] 3 05:28:19 Congenital anomaly of diaphragm Active 2014 Problem Code: Q79.1; Problem Code Type: ICD-10; MD [address], [place], [address] , [facility] 3 15:45:29 Polyneuropath y Active 2015 Problem Code: G62.9; Problem Code Type: ICD-10; Not Available [facility] 3 05:28:20 Hypothyroidis m Active 201508/11/2022 - Comments only - Lee Meneses MD - On levothyroxine . TSH ordered. Problem Code: E03.9; Problem Code Type: ICD-10; MD [address], [place], [address] , [facility] 3 15:45:28 Joint pain Active 2015 Problem Code: M25.50; Problem Code Type: ICD-10; Not Available [facility] 3 05:28:20 Adjustment disorder Active 2015 Problem Code: F43.29; Problem Code Type: ICD-10; Not Available [facility] 3 05:28:20 Osteoporosis Active 2015 Problem Code: M81.8; Problem Code Type: ICD-10; Not Available [facility] 3 05:28:20 Acute upper respiratory infection Completed 201506/09/2016 Problem Code: J06.9; Problem Code Type: ICD-10; Not Available [facility] 3 05:28:20 Bleeding from nose Active 2017 Problem Code: R04.0; Problem Code Type: ICD-10; Not Available [facility] 3 05:28:21 Disorder of pharynx Active 2017 Problem Code: J39.2; Problem Code Type: ICD-10; Not Available [facility] 3 05:28:21 Pain of left shoulder joint Active 2017 Problem Code: M25.512; Problem Code Type: ICD-10; Not Available [facility] 3 05:28:21 Chest pain Active 2017 Problem Code: R07.9; Problem Code Type: ICD-10; Not Available [facility] 3 05:28:21 Wheezing Active 2017 Problem Code: R06.2; Problem Code Type: ICD-10; Not Available [facility] 3 05:28:21 Cough Active 201707/05/2021 - Comments only - Lee Meneses MD - He has had a tickly cough now for years. Initially we thought it was related to lisinopril which was discontinued but this tickly cough never resolved. We will have him try Tessalon Perles as needed, he has used these historically. Problem Code: R05; Problem Code Type: ICD-10; Not Available [facility] 3 05:28:21 Cardiomyopath y Active 201703/18/2022 - Comments only - Lee Meneses MD - /Pulmonary hypertension. Overall he is remaining stable, continues on medications as listed in prior . . Problem Code: I42.9; Problem Code Type: ICD-10; MD [address], [place], [address] , [facility] 3 15:45:29 Melena Active 2017 Problem Code: K92.1; Problem Code Type: ICD-10; Not Available [facility] 3 05:28:22 Screening for malignant neoplasm of colon Active 201803/10/2019 - Comments only - Lee Meneses MD - colonoscopy 2018 with tubular adenoma with high grade dysplasia - repeat by early 2019 Problem Code: Z12.11; Problem Code Type: ICD-10; Not Available [facility] 3 05:28:22 Itching of skin Active 2018 Problem Code: L29.9; Problem Code Type: ICD-10; Not Available [facility] 3 05:28:23 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 He continues on atorvastatin, metoprolol, isosorbide, ASA. Problem Code: I25.10; Problem Code Type: ICD-10; MD [address], [place], [address] , [facility] 3 15:45:28 Adult health examination Active 201803/06/2021 - Comments only - Lee Meneses MD - He would like to check a PSA with the blood work. Problem Code: Z00.00; Problem Code Type: ICD-10; Not Available [facility] 3 05:28:23 Benign prostatic hyperplasia Active 201805/19/2019 - Comments only - Lee Meneses MD - with persistent nocturia - will have him increase the terazosin to 4mg qhs Problem Code: N40.0; Problem Code Type: ICD-10; MD [address], [place], [address] , [facility] 3 15:45:28 Dysphagia Active 201805/19/2019 [...] R13.10; Problem Code Type: ICD-10; Not Available [facility] 3 05:28:23 Non-traumatic tendon rupture Active 2018 Problem Code: M66.871; Problem Code Type: ICD-10; Not Available [facility] 3 05:28:24 Mild intermittent asthma Active 201803/18/2022 - Comments only - Lee Meneses MD - With chronic dyspnea on exertion. He continues on Symbicort, Singulair. I did suggest he can use the ProAir prior to exercise and he will try that. Problem Code: J45.20; Problem Code Type: ICD-10; Not Available [facility] 3 05:28:24 Traumatic or non-traumatic injury Active 201903/06/2021 - Comments only - Lee Meneses MD - Right status post injury. Resolving well at this point. Problem Code: T14.8xxA; Problem Code Type: ICD-10; Not Available [facility] 3 05:28:24 Pain of joint of knee Active 2019 Problem Code: M25.569; Problem Code Type: ICD-10; Not Available [facility] 3 05:28:24 Actinic keratosis Active 2019 Problem Code: L57.0; Problem Code Type: ICD-10; Not Available [facility] 3 05:28:25 Pain of right knee joint Active 2019 Problem Code: M25.561; Problem Code Type: ICD-10; Not Available [facility] 3 05:28:25 Prediabetes Active 201908/11/2022 - Comments only - Lee Meneses MD - He will be due for an A1c at the next visit. Problem Code: R73.03; Problem Code Type: ICD-10; ENRIQUE LIMON MD [address], [place], [address] , [facility]. 3 15:45:29 Periapical abscess Active 2019 Problem Code: K04.7; Problem Code Type: ICD-10; Not Available [facility] 3 05:28:26 Disorder of skin and/or subcutaneous tissue Active 202003/18/2022 - Comments only - Lee Meneses MD - Right posterior ear. We will refer Wesly to Dr. Wade for further evaluation/bi opsy. Problem Code: L98.9; Problem Code Type: ICD-10; Not Available [facility] 3 05:28:26 Therapeutic drug monitoring assay Active 2020 Problem Code: Z51.81; Problem Code Type: ICD-10; Not Available [facility] 3 05:28:26 Ureteric stone Active 202007/05/2021 - Comments only - Lee Meneses MD - Currently resolved. Following with urology Problem Code: N20.1; Problem Code Type: ICD-10; Not Available [facility] 3 05:28:26 COVID-19 Active 202111/06/2021 - Comments only - Lee Meneses MD - About 2 months ago. Minimal symptoms, resolved. We did discuss the possibility of the Laura Madrigal I need to find out whether and when he may be a candidate for that given that he has had Covid infection. Problem Code: U07.1; Problem Code Type: ICD-10; Not Available [facility] 3 05:28:26 Disorder of nasal [...] on any steroid nasal sprays. Not Available [facility] 3 05:28:27 Chronic cough Active [...] states he did meet with pulmonology at [facility] at 1 point but they just told him symptoms were on his head . We will try and obtain that note. Problem Code: R05.3; Problem Code Type: ICD-10; MD [address], [place], [address] , [facility] 3 15:45:28 Basal cell carcinoma of skin [...] C44.91; Problem Code Type: ICD-10; Not Available [facility] 3 05:28:27 Benign neoplasm of colon Active 202108/11/2022 - Comments only - Lee Meneses MD - , History of. Due for colonoscopy. Problem Code: D12.6; Problem Code Type: ICD-10; MD [address], [place], [address] , [facility] 3 15:45:29 Degenerative disorder of macula Active 2022 Problem Code: H35.30; Problem Code Type: ICD-10; Not Available [facility] 3 05:28:28 Long-term current use of drug therapy Active 2022 Problem Code: Z79.69; Problem Code Type: ICD-10; Not Available [facility] 3 05:28:28 Disorder of sacrum Active 2022 Not Available [facility] 3 05:28:28 Hip pain Active 2022 Problem Code: M25.559; Problem Code Type: ICD-10; Not Available [facility] 3 05:28:28 Acute upper respiratory infection Completed 201511/21/2017 Problem Code: J06.9; Problem Code Type: ICD-10; Not Available [facility] 3 05:28:30 Blepharitis Completed 201201/28/2018 Problem Code: H01.009; Problem Code Type: ICD-10; Not Available [facility] 3 05:28:31 Cough Completed 201401/28/2018 Problem Code: R05; Problem Code Type: ICD-10; Not Available [facility] 3 05:28:31 Gastroesophag eal reflux disease Completed 201005/29/2023 Not Available [facility] 3 05:28:31 Dizziness and giddiness Completed 201501/28/2018 Problem Code: R42; Problem Code Type: ICD-10; Not Available [facility] 3 05:28:32 Cellulitis Completed 201606/03/2017 Problem Code: L03.119; Problem Code Type: ICD-10; Not Available [facility] 3 05:28:32 Osteopenia Completed 201005/29/2023 Not Available [facility] 3 05:28:32 Effusion of joint Completed 201401/28/2018 Problem Code: M25.40; Problem Code Type: ICD-10; Not Available [facility] 3 05:28:33 Acute bronchitis Completed 201409/25/2016 Problem Code: J20.9; Problem Code Type: ICD-10; Not Available [facility] 3 05:28:33 Hypertensive disorder Completed 201005/29/2023 Not Available [facility] 3 05:28:34 Hernia of anterior abdominal wall Completed 201205/29/2023 Not Available [facility] 3 05:28:35 Bursitis of olecranon of left elbow Completed 201601/28/2018 Problem Code: M70.22; Problem Code Type: ICD-10; Not Available [facility] 3 05:28:36 Pre-surgery evaluation Completed 201606/03/2017 Problem Code: Z01.818; Problem Code Type: ICD-10; Not Available [facility] 3 05:28:36 Acute pharyngitis Completed 201701/28/2018 Problem Code: J02.9; Problem Code Type: ICD-10; Not Available [facility] 3 05:28:37 Colonoscopy Completed 201205/29/2023 Not Available [facility] 3 05:28:38 Specialized medical examination Completed 201205/29/2023 Problem Code: Z01.89; Problem Code Type: ICD-10; Not Available [facility] 3 05:28:39 Chronic maxillary sinusitis Completed 201601/28/2018 Problem Code: J32.0; Problem Code Type: ICD-10; Not Available [facility] 3 05:28:40 Pathological fracture of vertebra Completed 201005/29/2023 Not Available [facility] 3 05:28:40 Hypothyroidis m Completed 201205/29/2023 ENRIQUE LIMON MD [address], [place], [address] , [facility]. 3 15:45:28 Adult health examination Completed 201601/28/2018 Problem Code: Z00.00; Problem Code Type: ICD-10; Not Available [facility] 3 05:28:41 Osteoporosis Completed 201005/29/2023 Not Available [facility] 3 05:28:43 Increased frequency of urination Completed 201601/28/2018 Problem Code: R35.0; Problem Code Type: ICD-10; Not Available [facility] 3 05:28:44 Pulmonary hypertension Completed 201405/29/2023 Not Available [facility] 3 05:28:45 Conjunctiviti s Completed 201201/28/2018 Problem Code: H10.89; Problem Code Type: ICD-10; Not Available [facility] 3 05:28:46 Bone density finding Completed 201009/25/2016 Problem Code: M85.80; Problem Code Type: ICD-10; Not Available [facility] 3 05:28:46 Rosacea conjunctiviti s Completed 201205/29/2023 Not Available [facility] 3 05:28:47 Anxiety state Completed 201205/29/2023 Not Available [facility] 3 05:28:48 Obstructed labor due to shoulder dystocia Completed 201501/16/2016 Problem Code: O66.0; Problem Code Type: ICD-10; Not Available [facility] 3 05:28:49 Depressive disorder Completed 201005/29/2023 Not Available [facility] 3 05:28:51 Pneumonia Completed 201701/28/2018 Problem Code: J18.9; Problem Code Type: ICD-10; Not Available [facility] 3 05:28:52 Pain of left shoulder joint Completed 201501/28/2018 Problem Code: M25.512; Problem Code Type: ICD-10; Not Available [facility] 3 05:28:54 History of SARS-CoV-2 Active [address], [place], [address] , [facility]. 4 11:04:33 Benign prostatic hyperplasia with outflow obstruction Active [address], [place], [address] , [facility] 4 10:07:46 CT of chest abnormal Active 2023 nodular infiltrate 04/25 - repeat in 3 months MD [address], [place], [address] , [facility] 4 20:40:16 Notes:*Problem Name: Chronic Dyspnea *ICD-10 Codes: *Problem [...] Name and Address Organization Details Recorded Time 06023 lisinopri l medicatio n cough moderate Not available 07/12/20232011 44863 RxNorm dry cough Aller gyCod e: '3140 76'; Aller gyNam e: 'XIOMY NOPRI L'; Aller gyCon ceptT ype: 'RX Norm' ; Aller gyRea ction : 'dry cough '; Not Available [facility] 3 16:21:49 Medications Name Sig Start Date [...] Not Available Rituxan every 16 weeks at [facility]. Labs 1-2 weeks prior to infusion active [...] 118 mm[Hg] 68 mm[Hg] Siobhan amin LPN [facility] 4 14:43:37 Social History Question Answer Notes LastModified by Organizat ion Details LastModified Time Tobacco Smoking Status Never Smoker YAZNA Beaulieu, [facility] 11/19/2023 11:03:00 What Was The Date Of Your Most Recent Tobacco Screening? 11/19/2023 [email or web address] Information not available 11/19/2023 Has Tobacco Cessation Counseling Been Provided? No [email or web address] Information not available 11/19/2023 Do You Or [...] preservative free, adsorbed 06/14/2020 completed Not Available [facility] 07/12/2023 04:58:16 Tdap 05/08/2012 completed Not Available [facility] 04:58:16 Pneumococcal conjugate PCV 13 06/26/2016 completed Not Available [facility] 07/12/2023 04:58:17 Influenza, high-dose, trivalent, PF 06/04/2018 completed Not Available [facility] 07/12/2023 04:58:18 Influenza, split virus, trivalent, preservative 05/23/2016 completed Not Available [facility] 07/12/2023 04:58:18 Influenza, split virus, trivalent, preservative 05/26/2015 completed Not Available [facility] 07/12/2023 04:58:19 Influenza, high-dose, quadrivalent, PF 06/30/2020 completed Not Available [facility] 07/12/2023 04:58:20 Influenza, high-dose, quadrivalent, PF 06/30/2021 completed Not Available [facility] 07/12/2023 04:58:21 Influenza, high-dose, quadrivalent, PF 07/06/2022 completed Not Available [facility] 07/12/2023 04:58:21 COVID-19, mRNA, LNP-S, PF, 100 mcg/0.5mL dose or 50 mcg/0.25mL dose 11/07/2020 completed Not Available [facility] 07/12/2023 04:58:21 COVID-19, mRNA, LNP-S, PF, 100 mcg/0.5mL dose or 50 mcg/0.25mL dose 12/05/2020 completed Not Available [facility] 07/12/2023 04:58:22 COVID-19, mRNA, LNP-S, PF, 100 mcg/0.5mL dose or 50 mcg/0.25mL dose 12/26/2021 completed Not Available [facility] 07/12/2023 04:58:22 COVID-19, mRNA, LNP-S, PF, 100 mcg/0.5mL dose or 50 mcg/0.25mL dose 06/30/2021 completed Not Available [facility] 07/12/2023 04:58:22 COVID-19, mRNA, LNP-S, bivalent, PF, 30 mcg/0.3 mL dose 07/06/2022 completed Not Available [facility] 07/12/20 04:58:23 pneumococcal polysaccharide PPV23 09/07/2014 completed Not Available [facility] 2022 04:58:23 influenza, unspecified formulation 05/20/2014 completed Not Available [facility] 07/12/2023 04:58:24 influenza, unspecified formulation 06/05/2017 completed Not Available [facility] 07/12/2023 04:58:24 influenza, unspecified formulation 07/02/2019 completed Not Available [facility] 07/12/2023 04:58:26 Influenza, high-dose, quadrivalent, PF 05/14/2023 completed Not Available [facility] 09/13/2023 05:31:41 COVID-19, mRNA, LNP-S, PF, jonathan-sucrose, 30 mcg/0.3 mL 08/21/2023 completed Perico Quiroz MA [place], [place] - [facility]. 08/21/2023 10:07:33 Past Encounters Encounter ID Performer Location Encounter Start Date Encounter Closed Date Diagnosis/Indication Diagnosis SNOMED-CT Code [id number] HUANG VARGAS, [facility] [id number] 03/26/2024 14:15:57 03/26/2024 15:32:32 Cough [id number] Health Concerns Section Related Observation LastModified by Organization Detai ls LastModified Time None Recorded Concern Status LastModified by Organization Details LastModified Time None Recorded Payers Encounter Date Sequence Insurance Name Policy Number Policy Cervantes Covered Member ID Cervantes Member ID Guarantor Name 03/26/2024 1 [employer] (MEDICARE REPLACEMENT/ ADVANTAGE - PPO) Wesly Ybarra [id number] Wesly Ybarra Notes Date Note Type Note Provider Name and Address Organization Details Recorded Time 03/26/2024 text/html HPI Notes: Increase in cough approx 8d ago on 03/18/24. Has been using his nebulizer bid, nocturnal [...] until his lung issues are resolved. HUANG GRIMES, MANAGER [employer]GEMENT- [address], [place], [address], [facility], [facility]. 03/26/2024 15:40:53
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
--- OUTSIDE RECORDS SUMMARY | 2024-04-07 03:21 | XMS_ITS | Encounter Summary ---
Author Organization [facility] [place] [address] Care Team Providers Care Rubber Production Machine Operator Name Role Phone Arelis Michele MD Primary Care Provider [phone] Encounter Details Date Type Department Care Team (Late st Contact Info) Description 09/17/2023 10:00 AM EST Office Visit [place] [address] Alice Carney CLAIM REVIEW MEDICAL DIRECTOR [facility] [place] [address] High risk medication use; Rheumatoid arthritis with [...] this encounter Progress Notes * Alice Carney, CLAIM REVIEW MEDICAL DIRECTOR - 09/17/2023 10:00 AM EST Rheumatology Follow-up [...] Currently treated with name brand Rituxan via [place] 2021 with benefit to joints. Treatment considerations: See 02/05/23 OV for extensive review. Cannot take NSAIDS per cardiology. CAD and CMP: [facility] Cardiology OV notes from 09/27/2020 (Wesly Munoz MD) reviewed 02/28/2021. CAD: s/p CABG (Patient Denies!) and s/p mid LAD stent March 2019. Additional workup with [place] [facility] [place] of ongoing SOB. No ischemia [...] with cardiology. Vinayak-diaphragm, ZEPEDA, wheezing: Comprehensive work-up [facility] pulmonology (last OV 08/2020) with no clear diagnosis. Responds to nebulizer treatment with unknown medication. Multiple specialists: Pulmonology @ [facility] Geneva Cruz MD and DONAVAN Garibay. PFTs planned. Cardiology @ [facility] Franck Edwards MD [facility] for eye issue concerning for possible melanoma (history melanoma skin hx). Qian Navarro MD, [facility]. Dermatology at [facility] hx melanoma. ENT at [facility]. Interval History: Current treatment for RA: Rituxan (name brand) 1000 mg Q16W per [employer] medication assistance program started 02/13/2022. Last infusion: [...] which he has had for years. Sees [facility] ENT since 06/2023. Very dry in his [...] activity -- ongoing. Followed by cardiology at [facility]. Pulmonary: Denies hemoptysis, purulent sputum. + intermittent cough ongoing with no clear dx. . + SOB at rest at times with + ZEPEDA. Unremarkable work-up [facility] pul[place]. Nebulizer (med ?) helps. Sometimes uses his albuterol inhaler. Now sees pulmonology at [facility]. Gastrointestinal: Denies abdominal pain, nausea, vomiting, bowel [...] resection Osteoporosis with pathologic vertebral fracture per [facility] notes but not on file at [facility]. Physical Examination: BP (!) 134/112 (BP Location [...] Feet: No MTP compression tenderness DATA: 09/10/23 [facility]: unremarkable cbc, cmp, crp, esr. 06/07/2021 [facility]: Negative Hepatitis B/C and TB Quant Gold screening. ASSESSMENT/RECOMMENDATIONS: Seropositive rheumatoid arthritis: Good control since [facility]. He is tolerating infusions well without s/s fluid overload by his report. He would like to continue this treatment. Hold parameters again reviewed. He will continue to get routine labs checked at [facility] 1-2 weeks before his infusion and see [...] be fine. Plan: Continue Rituxan Q16W at [facility]. Labs at [facility] 1-2 weeks before. If he cannot accomplish [...] 12:00 PM EDT Appointment [place] [address] documented as of this encounter Visit Diagnoses Diagnosis High risk medication use Encounter for long-term (current) use of other medications Rheumatoid arthritis with positive rheumatoid factor, involving unspecified site documented in this encounter Care Teams Rubber Production Machine Operator Relationship Specialty Start Date End Date Arelis Michele MD [address] [place] [address] PCP - General Family Medicine 08/01/18 02/11/24 documented as of this encounter
--- OUTSIDE RECORDS SUMMARY | 2024-04-07 03:21 | XMS_ITS | Encounter Summary ---
[place] [address] Care Team Providers Care Sugar Mill Worker Name Role Phone Arelis Michele MD Primary Care Provider [phone] Encounter Details Date Type Department Care Team [...] 12:00 PM EDT [place] [address] documented as of this encounter Visit Diagnoses Not on filedocumented in this encounter Care Teams Sugar Mill Worker Relationship Specialty Start Date End Date Arelis Michele MD [address] [place] [address] PCP - General Family Medicine 08/01/18 02/11/24 documented as of this encounter
--- OUTSIDE RECORDS SUMMARY | 2024-04-07 03:21 | XMS_ITS | Encounter Summary ---
Author Organization [facility] [place] [address] Care Team Providers Care Glass Blower Name Role Phone Arelis Michele MD Primary Care Provider [phone] Encounter Details Date Type Department Care Team (Late st Contact Info) Description 01/06/2024 Orders [place] [phone] Alice Carney APRN [facility] [place] [address] [address] Social History Tobacco Use Types Packs/Day Years [...] 12:00 PM EDT Appointment [place] [phone] documented as of this encounter Visit Diagnoses Not on filedocumented in this encounter Care Teams Glass Blower Relationship Specialty Start Date End Date Arelis Michele MD [address] [place], [place] [id number] PCP - General Family Medicine 08/01/18 02/11/24 documented as of this encounter
--- OUTSIDE RECORDS SUMMARY | 2024-04-07 03:21 | XMS_ITS | Continuity of Care Document ---
Author Organization [facility] Address [address] [place] [address] Care Team Providers Care Filling Carrier Name Role Phone DELPHINE ZARCO Real Estate Associate DIONE PATEL Truck Safety Inspector [phone] Assessment No assessment recorded. Plan of Treatment [...] breath after diagnosis of pneumonia on 12/29 [facility] please compare x-rays 2023 024 [email or web address] [facility] (Radiology), [address] [place] [address] [place], [address], 02/06/2024 12:04:57 Medication Orders prednison e 20 mg tablet 2023 024 [email or web address] [facility], [address] [place], [address], 02/11/2024 09:32:01 Patient TargetsNo targets recorded. Patient Instructions Encounter Date Encounter Id Patient Instructions Last Modified By Organization Details Last Modified Time 01/08/2024 [id number] Wesly: start prednisone today 40 mg a day for 4 days take with food. 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 Referral for D isorder of skin and/or subcutaneous tissue referral for presumed BCC on nose and rt ant ear, also rosacea Referring Physician: Lee Meneses, Family Medicine, Encounter Date: 02/11/2024 Results Created Date Observation Date Name Description Value Unit Range Abnormal Flag LastModifiedBy Organization Detail LastModifiedTime 12/28/19 24 12/28/2023 vrad repor t Patien t Name: Iván Grover M Unit #: [id number] Loc: DI Orderi ng Provid er: Accoun t #: [id number] Status : REG CLI Primar y [...] Orderi ng:P.B JANEL Montanez MD Access ion#=[id number] Orderoscar d By: CC: ------ ------ [...] error, please notify us immedi ately at [phone] and return the origin al report to us at the addres s above. Thank- you. [facility] [address], [place], [address] 01/05/2024 07:04:06 12/28/19 24 12/28/2023 x-ray imagi ng repor t George t Name: Iván Grover Unit #: [id number] Loc: ABEL Hopkins ng Provid er: April Marion Accanand t #: [id number] Status : REG CLI Primar [...] at the addres s above. Thank- you. [facility] [address], [place], [address] 01/05/2024 07:04:06 12/30/19 24 12/30/2023 x-ray imagi ng repor t Patien t Name: Iván Grover Unit #: [id number] Loc: ER Orderi ng Provid er: Mc Avalos M.D. Accoun t #: [id number] Status : REG ER Primar y [...] error, please notify us immedi ately at [phone] and return the origin al report to us at the addres s above. Thank- you. [facility] [address] [place], [address] 01/05/2024 07:04:06 01/08/20 24 01/08/2024 XR, chest , 2 view Patien t Name: Iván Grover Unit #: [id number] Loc: ER Orderi ng Provid er: Carlos rs,April Walker t #: [id number] Status : REG ER Primar [...] at the addres s above. Thank- you. [email or web address] [place] [address] 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 Thank- you. land[facility] [address], [place], [address] 04/06/2024 20:40:24 Result Notes None recorded. Problems [...] Meneses MD - per recent reading at [facility] I feel this is remaining under reasonable control. He will continue the metoprolol, terazosin. Also on isosorbide. Problem Code: I10; Problem Code Type: ICD-10; ENRIQUE LIMON MD [address], [place], [address] , [place] [facility] 15:45:28 Hyperlipidemi a Active 201005/19/2019 - Comments only - Primitivo Brown - He will continue atorvastatin. Problem Code: E78.5; Problem Code Type: ICD-10; Not Available [facility] 3 05:28:17 Generalized anxiety disorder Active 201208/08/2021 - Comments only - Lee Meneses MD - improved now that he has a warm apartment to be in for the winter. He has his name on a list for a senior apartment complex also. He will remain on the wellbutrin and venlafaxine for now. Problem Code: F41.1; Problem Code Type: ICD-10; Not Available [facility] 3 05:28:17 Postprocedura l state finding Active 2012 Problem Code: Z98.89; Problem Code Type: ICD-10; Not Available [facility] 3 05:28:18 Gastrointesti nal tract excision Active 2012 Problem Code: Z90.49; Problem Code Type: ICD-10; Not Available [facility] 3 05:28:18 History of polyp of colon Active 2018 Problem Code: Z86.010; Problem Code Type: ICD-10; Not Available [facility] 3 05:28:18 Gastroesophag eal reflux disease without esophagitis Active 201011/07/2020 - Comments only - Lee Meneses MD - discussed trying to cut back on prilosec. He will continue the AM dose but d/c the PM. He continues on ranitidine at hs. Problem Code: K21.9; Problem Code Type: ICD-10; ENRIQUE LIMON MD [address], [place], [address] , [facility] 3 15:45:28 Sj??gren's syndrome Active 201308/11/2022 - Comments only - Lee Meneses MD - , Possible Sjogren's. He does have RA as well. Again he is learned to live with it for the most part. Problem Code: M35.00; Problem Code Type: ICD-10; Not Available [facility] 3 05:28:18 Overweight Active 2010 Problem Code: E66.3; Problem Code Type: ICD-10; Not Available [facility] 3 05:28:18 Insomnia Active 201008/08/2021 - Comments only - Lee Meneses MD - doing better on the trazadone, off the temazepam. Will continue to monitor. Problem Code: G47.00; Problem Code Type: ICD-10; Not Available [facility] 3 05:28:18 Osteoporotic fracture of vertebra Active 2010 Problem Code: M80.88xD; Problem Code Type: ICD-10; Not Available [facility] 3 05:28:19 Rheumatoid arthritis Active 201002/12/2023 - Comments only - Lee Meneses MD - He continues on rituxan, followed by rheumatology Problem Code: M06.9; Problem Code Type: ICD-10; MD [address], [place], [address] , [facility] 3 15:45:28 Rosacea Active 201203/18/2022 - Comments only - Lee Meneses MD - Which seems to have flared up with his accidentally using diclofenac gel instead of metronidazole gel. Explained the difference to him. He will case picker the MetroGel and start using that. If he has not had improvement within 3 to 4 weeks to let us know. Problem Code: L71.9; Problem Code Type: ICD-10; MD [address], [place], [address] , [facility] 3 15:45:28 Secondary pulmonary hypertension Active 2014 Problem Code: I27.2; Problem Code Type: ICD-10; Not Available [facility] 3 05:28:19 Dyspnea Active 201407/05/2021 - [...] R06.00; Problem Code Type: ICD-10; Not Available [facility] 3 05:28:19 Congenital anomaly of diaphragm Active 2014 Problem Code: Q79.1; Problem Code Type: ICD-10; MD [address], [place], [address] , [facility] 3 15:45:29 Polyneuropath y Active 2015 Problem Code: G62.9; Problem Code Type: ICD-10; Not Available [facility] 3 05:28:20 Hypothyroidis m Active 201508/11/2022 - Comments only - Lee Meneses MD - On levothyroxine . TSH ordered. Problem Code: E03.9; Problem Code Type: ICD-10; ENRIQUE LIMON MD [address], [place], [address] , [facility] 3 15:45:28 Joint pain Active 2015 Problem Code: M25.50; Problem Code Type: ICD-10; Not Available [facility] 3 05:28:20 Adjustment disorder Active 2015 Problem Code: F43.29; Problem Code Type: ICD-10; Not Available [facility] 3 05:28:20 Osteoporosis Active 2015 Problem Code: M81.8; Problem Code Type: ICD-10; Not Available [facility] 3 05:28:20 Acute upper respiratory infection Completed 201506/09/2016 Problem Code: J06.9; Problem Code Type: ICD-10; Not Available [facility] 3 05:28:20 Bleeding from nose Active 2017 Problem Code: R04.0; Problem Code Type: ICD-10; Not Available [facility] 3 05:28:21 Disorder of pharynx Active 2017 Problem Code: J39.2; Problem Code Type: ICD-10; Not Available [facility] 3 05:28:21 Pain of left shoulder joint Active 2017 Problem Code: M25.512; Problem Code Type: ICD-10; Not Available [facility] 3 05:28:21 Chest pain Active 2017 Problem Code: R07.9; Problem Code Type: ICD-10; Not Available [facility] 3 05:28:21 Wheezing Active 2017 Problem Code: R06.2; Problem Code Type: ICD-10; Not Available [facility] 3 05:28:21 Cough Active 201707/05/2021 - Comments only - Lee Meneses MD - He has had a tickly cough now for years. Initially we thought it was related to lisinopril which was discontinued but this tickly cough never resolved. We will have him try Tessalon Perles as needed, he has used these historically. Problem Code: R05; Problem Code Type: ICD-10; Not Available [facility] 3 05:28:21 Cardiomyopath y Active 201703/18/2022 - Comments only - Lee Meneses MD - /Pulmonary hypertension. Overall he is remaining stable, continues on medications as listed in prior . . Problem Code: I42.9; Problem Code Type: ICD-10; MD [address], [place], [address] , [facility] 3 15:45:29 Melena Active 2017 Problem Code: K92.1; Problem Code Type: ICD-10; Not Available [facility] 3 05:28:22 Screening for malignant neoplasm of colon Active 201803/10/2019 - Comments only - Lee Meneses MD - colonoscopy 2018 with tubular adenoma with high grade dysplasia - repeat by early 2019 Problem Code: Z12.11; Problem Code Type: ICD-10; Not Available [facility] 3 05:28:22 Itching of skin Active 2018 Problem Code: L29.9; Problem Code Type: ICD-10; Not Available [facility] 3 05:28:23 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 He continues on atorvastatin, metoprolol, isosorbide, ASA. Problem Code: I25.10; Problem Code Type: ICD-10; MD [address], [place], [address] , [facility] 3 15:45:28 Adult health examination Active 201803/06/2021 - Comments only - Lee Meneses MD - He would like to check a PSA with the blood work. Problem Code: Z00.00; Problem Code Type: ICD-10; Not Available [facility] 3 05:28:23 Benign prostatic hyperplasia Active 201805/19/2019 - Comments only - Lee Meneses MD - with persistent nocturia - will have him increase the terazosin to 4mg qhs Problem Code: N40.0; Problem Code Type: ICD-10; ENRIQUE LIMON MD [address], [place], [address] , [facility]. 15:45:28 Dysphagia Active 201805/19/2019 - Comments only - Lee Meneses MD - ongoing - this may be related to Sicca syndrome. He had an ENT w/u without dx found, no upper endoscopy or barium swallow studies in our system. I will ask him about these when I call him with bloodwork results. Problem Code: R13.10; Problem Code Type: ICD-10; Not Available [facility] 3 05:28:23 Non-traumatic tendon rupture Active 2018 Problem Code: M66.871; Problem Code Type: ICD-10; Not Available [facility] 3 05:28:24 Mild intermittent asthma Active 201803/18/2022 - Comments only - Lee Meneses MD - With chronic dyspnea on exertion. He continues on Symbicort, Singulair. I did suggest he can use the ProAir prior to exercise and he will try that. Problem Code: J45.20; Problem Code Type: ICD-10; Not Available [facility] 3 05:28:24 Traumatic or non-traumatic injury Active 201903/06/2021 - Comments only - Lee Meneses MD - Right status post injury. Resolving well at this point. Problem Code: T14.8xxA; Problem Code Type: ICD-10; Not Available [facility] 3 05:28:24 Pain of joint of knee Active 2019 Problem Code: M25.569; Problem Code Type: ICD-10; Not Available [facility] 3 05:28:24 Actinic keratosis Active 2019 Problem Code: L57.0; Problem Code Type: ICD-10; Not Available [facility] 3 05:28:25 Pain of right knee joint Active 2019 Problem Code: M25.561; Problem Code Type: ICD-10; Not Available [facility] 3 05:28:25 Prediabetes Active 201908/11/2022 - Comments only - Lee Meneses MD - He will be due for an A1c at the next visit. Problem Code: R73.03; Problem Code Type: ICD-10; ENRIQUE LIMON MD [address], [place], [address] , [facility] 3 15:45:29 Periapical abscess Active 2019 Problem Code: K04.7; Problem Code Type: ICD-10; Not Available [facility] 3 05:28:26 Disorder of skin and/or subcutaneous tissue Active 202003/18/2022 - Comments only - Lee Meneses MD - Right posterior ear. We will refer Wesly to Dr. Wade for further evaluation/bi opsy. Problem Code: L98.9; Problem Code Type: ICD-10; Not Available [facility] 3 05:28:26 Therapeutic drug monitoring assay Active 2020 Problem Code: Z51.81; Problem Code Type: ICD-10; Not Available [facility] 3 05:28:26 Ureteric stone Active 202007/05/2021 - Comments only - Lee Meneses MD - Currently resolved. Following with urology Problem Code: N20.1; Problem Code Type: ICD-10; Not Available [facility] 3 05:28:26 COVID-19 Active 202111/06/2021 - Comments only - Lee Meneses MD - About 2 months ago. Minimal symptoms, resolved. We did discuss the possibility of the Laura Madrigal I need to find out whether and when he may be a candidate for that given that he has had Covid infection. Problem Code: U07.1; Problem Code Type: ICD-10; Not Available [facility] 3 05:28:26 Disorder of nasal sinus Active [...] on any steroid nasal sprays. Not Available [facility] 3 05:28:27 Chronic cough Active 202102/13/2023 - [...] pulmonology at [facility] at 1 point but they just told him symptoms were on his head . We will try and obtain that note. Problem Code: R05.3; Problem Code Type: ICD-10; ENRIQUE LIMON MD [address], [place], [address] , [facility]. 3 15:45:28 Basal cell carcinoma of skin [...] C44.91; Problem Code Type: ICD-10; Not Available [facility] 3 05:28:27 Benign neoplasm of colon Active 202108/11/2022 - Comments only - Lee Meneses MD - , History of. Due for colonoscopy. Problem Code: D12.6; Problem Code Type: ICD-10; ENRIQUE LIMON MD [address], [place], [address] , [facility] 3 15:45:29 Degenerative disorder of macula Active 2022 Problem Code: H35.30; Problem Code Type: ICD-10; Not Available [facility] 3 05:28:28 Long-term current use of drug therapy Active 2022 Problem Code: Z79.69; Problem Code Type: ICD-10; Not Available [facility] 3 05:28:28 Disorder of sacrum Active 2022 Not Available [facility] 3 05:28:28 Hip pain Active 2022 Problem Code: M25.559; Problem Code Type: ICD-10; Not Available [facility] 3 05:28:28 Acute upper respiratory infection Completed 201511/21/2017 Problem Code: J06.9; Problem Code Type: ICD-10; Not Available [facility] 3 05:28:30 Blepharitis Completed 201201/28/2018 Problem Code: H01.009; Problem Code Type: ICD-10; Not Available [facility] 3 05:28:31 Cough Completed 201401/28/2018 Problem Code: R05; Problem Code Type: ICD-10; Not Available [facility] 3 05:28:31 Gastroesophag eal reflux disease Completed 201005/29/2023 Not Available [facility] 3 05:28:31 Dizziness and giddiness Completed 201501/28/2018 Problem Code: R42; Problem Code Type: ICD-10; Not Available [facility] 3 05:28:32 Cellulitis Completed 201606/03/2017 Problem Code: L03.119; Problem Code Type: ICD-10; Not Available [facility] 3 05:28:32 Osteopenia Completed 201005/29/2023 Not Available [facility] 3 05:28:32 Effusion of joint Completed 201401/28/2018 Problem Code: M25.40; Problem Code Type: ICD-10; Not Available [facility] 3 05:28:33 Acute bronchitis Completed 201409/25/2016 Problem Code: J20.9; Problem Code Type: ICD-10; Not Available [facility] 3 05:28:33 Hypertensive disorder Completed 201005/29/2023 Not Available [facility] 3 05:28:34 Hernia of anterior abdominal wall Completed 201205/29/2023 Not Available [facility] 3 05:28:35 Bursitis of olecranon of left elbow Completed 201601/28/2018 Problem Code: M70.22; Problem Code Type: ICD-10; Not Available [facility] 3 05:28:36 Pre-surgery evaluation Completed 201606/03/2017 Problem Code: Z01.818; Problem Code Type: ICD-10; Not Available [facility] 3 05:28:36 Acute pharyngitis Completed 201701/28/2018 Problem Code: J02.9; Problem Code Type: ICD-10; Not Available [facility] 3 05:28:37 Colonoscopy Completed 201205/29/2023 Not Available [facility] 3 05:28:38 Specialized medical examination Completed 201205/29/2023 Problem Code: Z01.89; Problem Code Type: ICD-10; Not Available [facility] 3 05:28:39 Chronic maxillary sinusitis Completed 201601/28/2018 Problem Code: J32.0; Problem Code Type: ICD-10; Not Available [facility] 3 05:28:40 Pathological fracture of vertebra Completed 201005/29/2023 Not Available [facility] 3 05:28:40 Hypothyroidis m Completed 201205/29/2023 ENRIQUE LIMON MD [address], [place], [address] , [facility] 3 15:45:28 Adult health examination Completed 201601/28/2018 Problem Code: Z00.00; Problem Code Type: ICD-10; Not Available [facility] 3 05:28:41 Osteoporosis Completed 201005/29/2023 Not Available [facility] 3 05:28:43 Increased frequency of urination Completed 201601/28/2018 Problem Code: R35.0; Problem Code Type: ICD-10; Not Available [facility] 3 05:28:44 Pulmonary hypertension Completed 201405/29/2023 Not Available [facility] 3 05:28:45 Conjunctiviti s Completed 201201/28/2018 Problem Code: H10.89; Problem Code Type: ICD-10; Not Available [facility] 3 05:28:46 Bone density finding Completed 201009/25/2016 Problem Code: M85.80; Problem Code Type: ICD-10; Not Available [facility] 3 05:28:46 Rosacea conjunctiviti s Completed 201205/29/2023 Not Available [facility] 3 05:28:47 Anxiety state Completed 201205/29/2023 Not Available [facility] 3 05:28:48 Obstructed labor due to shoulder dystocia Completed 201501/16/2016 Problem Code: O66.0; Problem Code Type: ICD-10; Not Available [facility] 3 05:28:49 Depressive disorder Completed 201005/29/2023 Not Available [facility] 3 05:28:51 Pneumonia Completed 201701/28/2018 Problem Code: J18.9; Problem Code Type: ICD-10; Not Available [facility] 3 05:28:52 Pain of left shoulder joint Completed 201501/28/2018 Problem Code: M25.512; Problem Code Type: ICD-10; Not Available [facility] 3 05:28:54 History of SARS-CoV-2 Active [address], [facility] [address] , [facility] 4 11:04:33 Benign prostatic hyperplasia with outflow obstruction Active [address], [place] [address] , [facility] 4 10:07:46 CT of chest abnormal Active 2023 nodular infiltrate 04/25 - repeat in 3 months MD [address], [place] [address] , [facility] 4 20:40:16 Notes:*Problem Name: Chronic Dyspnea *ICD-10 [...] Name and Address Organization Details Recorded Time 64987 lisinopri l medicatio n cough moderate Not available 07/12/20232011 65358 RxNorm dry cough Aller gyCod e: '3140 76'; Aller gyNam e: 'XIOMY NOPRI L'; Aller gyCon ceptT ype: 'RX Norm' ; Aller gyRea ction : 'dry cough '; Not Available [facility] 3 16:21:49 Medications Name Sig Start Date [...] oral route as needed. active RX by [facility] pulmonol ogy Not Available Not Available [...] Not Available Rituxan every 16 weeks at [facility]. Labs 1-2 weeks prior to infusion active [...] once a day 01/08 completed stopped by [facility] - elevated calcium level Not Available [...] on route as needed. active Rx by [place] pulmonol priscilla Not Available Not Available Not Available Vitals [...] 130 mm[Hg] 82 mm[Hg] NASREEN DAUGHERTY LPN [facility] 08:02:17 Social History Question Answer Notes LastModified by Organizat ion Details LastModified Time Tobacco Smoking Status Never Smoker YAZAN Beaulieu, [facility]. 11/19/2023 11:03:00 What Was The Date Of Your Most Recent Tobacco Screening? 11/19/2023 [email or web address] Information not available 11/19/2023 Has Tobacco Cessation Counseling Been Provided? No [email or web address] Information not available 11/19/2023 Do You Or Have You Ever Used Any Other Forms Of Tobacco Or Nicotine? No [email or web address] Information not available 11/19/2023 Sex: Male Functional [...] preservative free, adsorbed 06/14/2020 completed Not Available [facility] 07/12/2023 04:58:16 Tdap 05/08/2012 completed Not Available [facility] 04:58:16 Pneumococcal conjugate PCV 13 06/26/2016 completed Not Available [facility] 07/12/2023 04:58:17 Influenza, high-dose, trivalent, PF 06/04/2018 completed Not Available [facility] 07/12/2023 04:58:18 Influenza, split virus, trivalent, preservative 05/23/2016 completed Not Available [facility] 07/12/2023 04:58:18 Influenza, split virus, trivalent, preservative 05/26/2015 completed Not Available [facility] 07/12/2023 04:58:19 Influenza, high-dose, quadrivalent, PF 06/30/2020 completed Not Available [facility] 07/12/2023 04:58:20 Influenza, high-dose, quadrivalent, PF 06/30/2021 completed Not Available [facility] 07/12/2023 04:58:21 Influenza, high-dose, quadrivalent, PF 07/06/2022 completed Not Available [facility] 07/12/2023 04:58:21 COVID-19, mRNA, LNP-S, PF, 100 mcg/0.5mL dose or 50 mcg/0.25mL dose 11/07/2020 completed Not Available [facility] 07/12/2023 04:58:21 COVID-19, mRNA, LNP-S, PF, 100 mcg/0.5mL dose or 50 mcg/0.25mL dose 12/05/2020 completed Not Available [facility] 07/12/2023 04:58:22 COVID-19, mRNA, LNP-S, PF, 100 mcg/0.5mL dose or 50 mcg/0.25mL dose 12/26/2021 completed Not Available [facility] 07/12/2023 04:58:22 COVID-19, mRNA, LNP-S, PF, 100 mcg/0.5mL dose or 50 mcg/0.25mL dose 06/30/2021 completed Not Available [facility] 07/12/2023 04:58:22 COVID-19, mRNA, LNP-S, bivalent, PF, 30 mcg/0.3 mL dose 07/06/2022 completed Not Available [facility] 07/12/20 04:58:23 pneumococcal polysaccharide PPV23 09/07/2014 completed Not Available [facility] 2022 04:58:23 influenza, unspecified formulation 05/20/2014 completed Not Available [facility] 07/12/2023 04:58:24 influenza, unspecified formulation 06/05/2017 completed Not Available [facility] 07/12/2023 04:58:24 influenza, unspecified formulation 07/02/2019 completed Not Available [facility] 07/12/2023 04:58:26 Influenza, high-dose, quadrivalent, PF 05/14/2023 completed Not Available [facility] 09/13/2023 05:31:41 COVID-19, mRNA, LNP-S, PF, jonathan-sucrose, 30 mcg/0.3 mL 08/21/2023 completed Perico Quiroz MA [facility], [place] - [facility]. 08/21/2023 10:07:33 Past Encounters Encounter ID Performer Location Encounter Start Date Encounter Closed Date Diagnosis/Indication Diagnosis SNOMED-CT Code [id number] DOUGLAS MORIN [facility] [address] [place] [address] 01/08/2024 07:49:22 01/08/2024 08:44:03 Pneumonia [id number] Health Concerns Section Related Observation LastModified by Organization Detai ls LastModified Time None Recorded Concern Status LastModified by Organization Details LastModified Time None Recorded Payers Encounter Date Sequence Insurance Name Policy Number Policy Cervantes Covered Member ID Cervantes Member ID Guarantor Name 01/08/2024 1 [employer] (MEDICARE REPLACEMENT/ ADVANTAGE - PPO) Wesly Ybarra [id number] Wesly Ybarra Notes Date Note Type Note Provider Name and Address Organization Details Recorded Time 01/08/2024 text/html HPI Notes: 73-year-old man here for ER follow-up? was seen at [facility] ER12/30/2023 for pneumonia? had complained of worsening [...] history of lung disease. He lives alone. DOUGLAS MORIN [address], [place], [address], [facility]. 01/08/2024 13:45:12
--- OUTSIDE RECORDS SUMMARY | 2024-04-07 03:21 | XMS_ITS | Encounter Summary ---
Author Organization [facility] [place] [address] Care Team Providers Care Deputy Chief Magistrate Name Role Phone Arelis Michele MD Primary Care Provider [phone] Reason for Visit * Treatment/Therapy Plan Authorization (Routine) - Closed Specialty Diagnoses / Procedures Referred By Azam corbett Referred To Contact Rheumatology Diagnoses Rheumatoid arthritis, involving unspecified site, unspecified whether rheumatoid factor present Procedures INFUSION THERAPY TC RITUXIMAB, 10MG INJECTION Alice Carney [facility] [place] [place] [address] Alice Carney [facility] [place] [address] Referral ID Status Reason Start Date Expiration Date Visits Re quested Visits Authorized [id number] Closed 01/10/2023 01/10/2024 99 101 Encounter Details Date Type Department Care Team (Latest Contact Info) Description 05/28/2023 11:29 AM EDT - 05/28/2023 11:59 PM EDT Hospital [place] [id number] Rheumatoid arthritis, involving unspecified site, unspecified whether [...] 12:00 PM EDT [place] [address] documented as of this encounter Visit Diagnoses [...] mg documented in this encounter Care Teams Deputy Chief Magistrate Relationship Specialty Start Date End Date Arelis Michele MD [address] [place] [address] PCP - General Family Medicine 08/01/18 02/11/24 documented as of this encounter
--- OUTSIDE RECORDS SUMMARY | 2024-04-07 03:21 | XMS_ITS | Encounter Summary ---
Author Organization [facility] [place] [address] Care Team Providers Care Alodize Machine Operator Name Role Phone Arelis Michele MD Primary Care Provider [phone] Reason for Visit * Reason Comments Follow-up Encounter Details Date Type Department Care Team (Late st Contact Info) Description 11/07/2022 10:00 AM EST Office Visit [place] [address] Alice Carney, PERL SOFTWARE ENGINEER [facility] [place] [address] High risk medication use; Rheumatoid arthritis with [...] it would be helpful to see an pit-mfrn-trbjly (ENT) specialist for this and also foryour [...] of Rituxan (received Ruxience) 03/2021 at [facility]. He could not continue with RTX due to ecw-xj-kusjgd cost then was able to resume name brand Rituxan via [employer] 2021 with benefit to joints. ?? Orencia tried [id number] and stopped due to lack of efficacy [...] mg IV Q16W infusion resumed at [facility] -- next infusion cancelled due to unaffordable nwr-ub-wesqod cost. ?? Plan was to start Xeljanz 07/2021 given limited options available to patient for treatment givenmedical history and co-morbidities after communication via [facility] with Wesly Munoz MD, in cardiology. He never started it due to concerns about black box warnings. ?? Started leflunomide 10 mg daily 10/2021 while investigating [employer] Rituxan medication assistance program. No improvement with [...] NSAIDS per cardiology. CAD and CMP: [facility] Cardiology OV notes from 09/27/2020 (Wesly Munoz MD) reviewed 02/28/2021. ?? CAD: s/p CABG (Patient Denies!) and s/p mid LAD stent March 2019. Additional workup with CPET planned at [facility] for eval of ongoing SOB (Patient says [...] R hemidiaphragm. Vinayak-diaphragm, ZEPEDA, wheezing: Comprehensive work-up [facility] pulmonology (last OV 08/2020) with no clear diagnosis. Responds to nebulizer treatment with unknown medication. Interval History: Current treatment for RA: Rituxan (name brand) 1000 mg Q4M per [employer] medication assistance program started 02/13/2022. Last infusion: [...] about TID. See ROS. Per 12/2021 OV: [employer] Rituxan medication assistance program was recently approved [...] persistent dyspnea which is ongoing and his ceramic maker demonstrator at [facility] ordered a repeat stress test which [...] is recovered well. He met his new ceramic maker demonstrator at [facility] 09/2021 and he is pleased with her [...] I discussed this case briefly with his manager of international (though he did not review prior notes [...] with fluid overload. Note that on 03/21/2021 [facility] Rheumatology nurse confirmed with ASHLEY Wise, that [facility] infusion labthat per their protocol, and in [...] -- ongoing. Followed by cardiology at [facility]. Pulmonary: Denies hemoptysis. + SOB at rest at times with + ZEPEDA. Unremarkable work-up [facility] pulmonology. Nebulizer (med ?) helps. Sometimes uses [...] Osteoporosis with pathologic vertebral fracture per [facility] notes but not on file at [facility]. Physical Examination: BP 129/69 Pulse 67 Temp [...] (1000 mg Q4M via[employer] MAP) done at [facility]. He is tolerating infusions well without s/s fluid overload by his report. He would like to continue this treatment. Hold parameters reviewed. He gets labs done at [facility] 2 weeks before his infusion and knows to expect a letter from me re results and to contact me if he does not receive one. Osteoporosis with history of pathologic vertebral fracture: Per 10/2021 OV not discussed today: DEXAordered at 02/28/2021 office visit to be done at [facility] and not yet done. Continue with vit [...] it would be helpful to see an yss-ykij-hnpfxi (ENT) specialist for this and also foryour [...] 12:00 PM EDT Appointment [place] [address] documented as of this encounter Visit Diagnoses Diagnosis High risk medication use Encounter for long-term (current) use of other medications Rheumatoid arthritis with positive rheumatoid factor, involving unspecified site ZEPEDA (dyspnea on exertion) Other dyspnea and respiratory abnormality documented in this encounter Care Teams Alodize Machine Operator Relationship Specialty Start Date End Date Arelis Michele MD [address] [place] [address] PCP - General Family Medicine 08/01/18 02/11/24 documented as of this encounter
--- OUTSIDE RECORDS SUMMARY | 2024-04-07 03:21 | XMS_ITS | Encounter Summary ---
[place] [address] Care Team Providers Care Entry Level Truck Driver Name Role Phone Arelis Michele MD Primary Care Provider [phone] Encounter Details Date Type Department Care Team (Latest Contact Info) Description 05/17/2023 Trans[place] [phone] Arelis Michele MD [address] [place], [place] [id number] Hypothyroidism, unspecified type; Hyperlipidemia, unspecified hyperlipidemia type; [...] 12:00 PM EDT Appointment [place] [phone] Scheduled Orders Name Type Priority Associated Diagnoses [...] facility documented in this encounter Care Teams Entry Level Truck Driver Relationship Specialty Start Date End Date Arelis Michele MD [address] [place] [address] PCP - General Family Medicine 08/01/18 02/11/24 documented as of this encounter
--- OUTSIDE RECORDS SUMMARY | 2024-04-07 03:21 | XMS_ITS | Encounter Summary ---
Author Organization [facility] Demetri [place] [address] Care Team Providers Care User Experience Architect Name Role Phone Arelis Michele MD Primary Care Provider [phone] Encounter Details Date Type Department Care Team (Late st Contact Info) Description 01/10/2023 Orders [place] [phone] Alice Carney APRN [facility] [place] [address] Social History Tobacco Use Types Packs/Day Years [...] 12:00 PM EDT [place]oint[place] [phone] documented as of this encounter Visit Diagnoses Not on filedocumented in this encounter Care Teams User Experience Architect Relationship Specialty Start Date End Date Arelis Michele MD [address] [place], [place] [address] PCP - General Family Medicine 08/01/18 02/11/24 documented as of this encounter
--- OUTSIDE RECORDS SUMMARY | 2024-04-07 03:21 | XMS_ITS | Encounter Summary ---
[place] [address] Care Team Providers Care Statement Request Clerk Name Role Phone Arelis Michele MD Primary Care Provider Reason for Referral * Consultation (Routine) - Closed Specialty Diagnoses / Procedures Referred By Azam corbett Referred To Contact Gastroenterology Diagnoses Screening for colon cancer Benign neoplasm of colon, unspecified Personal history of colonic polyps Acquired absence of other specified parts of digestive tract Arelis Michele MD [address] [place] [address] [facility] [address] [place] [phone] Referral ID Status Reason Start Date Expiration Date V isits Requested Visits Authorized [id number] Closed Surgical PCP Updated and/or Approved 02/08/2023 02/08/2024 12 12 Encounter Details Date Type Department Care Team (Latest Contact Info) Description 02/08/2023 Transcribe Orders eD Incoming Referrals [phone] Arelis Michele MD [address] [place], [place] [phone] Screening for colon cancer Social History Tobacco [...] 12:00 PM EDT [place] [address] Scheduled Referrals Name Type Priority Associated Diagnoses Order Schedule REFERRAL TO COLONOSCOPY PROCEDURE Outpatient Referral Routine Screening for colon cancer Ordered: 02/08/2023 documented as of this encounter Visit Diagnoses Diagnosis Screening for colon cancer Special screening for malignant neoplasms, colon documented in this encounter Care Teams Statement Request Clerk Relationship Specialty Start Date End Date Arelis Michele MD [address] [place] [address] PCP - General Family Medicine 08/01/18 02/11/24 documented as of this encounter
--- OUTSIDE RECORDS SUMMARY | 2024-04-07 03:21 | XMS_ITS | Encounter Summary ---
[place] [address] Care Team Providers Care Tank Maker Wood Name Role Phone Arelis Michele MD Primary Care Provider [phone] Reason for Visit * Reason Comments Medication Management Rituximab (rituxan ) Encounter Details Date Type Department Care Team (Late st Contact Info) Description 11/04/2023 Specialty [place] [address] Mariela Ritter, [facility] Social History Tobacco Use Types Packs/Day [...] this encounter Progress Notes * Mariela Ritter [facility] - 11/04/2023 12:33 PM EST Specialty Pharmacy Consultation; Mariela Ritter Jay Comprehensive Medication Management (CMM): Specialty Consult, Intervention Wesly Ybarra Diagnosis: Rheumatoid Arthritis Recommendation: Himanshu cano [employer] is helping Wesly Ybarra receive free medication through [employer]. I sent the patient the application via [employer] (put in the mail on 11/04/23). We will get Alice Angelika's portion signed when she is back in office on 11/05/23. Outcome: Patient will fill out his signature and then send it back to us to send to [employer]. Specialty Pharmacy Intervention: Intervention Category (Nature of Intervention): Formulary Related/Financial Issues Formulary Related/Financial Issues: Referred to office-led MAP, Therapist Speech Prescriber accepted response (Prescriber accept Intervention): Accepted Mariela Ritter RPH 11/04/23 12:36 PM * Mariela Ritter RPH - 11/04/2023 12:33 PM EST Provider portion signed and sent back to Isma Sam. 11/05/23 documented in this encounter Plan of Treatment Upcoming Encounters Date Type Department Care Team (Late st Contact Info) Description 04/28/2024 12:00 PM EDT Appoint[place] [address] documented as of this encounter Visit Diagnoses Not on filedocumented in this encounter Care Teams Tank Maker Wood Relationship Specialty Start Date End Date Arelis Michele MD [address] [place] [address] PCP - General Family Medicine 08/01/18 02/11/24 documented as of this encounter
--- OUTSIDE RECORDS SUMMARY | 2024-04-07 03:21 | XMS_ITS | Continuity of Care Document ---
Author Organization [facility]ol[facility] Address [address] [place] [address] Care Team Providers Care Stone Trimmer Name Role Phone DELPHINE ZARCO Operational Risk Manager DIONE PATEL Planishing Hammer Operator [phone] Assessment No assessment recorded. Plan of Treatment Reminders Order Date Submit Date Provider Last Modified By Organization Details Last Modified Time Details Appointments Follow Up 30 2023 08:10A M LEE MENESES Not available Not available Not available Lab BMP, serum or plasma 2023 024 [facility] [address] [place] [address] [place], [address], 03/19/2024 04:22:09 PTH (parathyr oid hormone), intact, serum or plasma 2023 024 [facility] [address] [place] [address] [place], [address], 03/19/2024 04:22:09 TSH, serum, reflex free T4 2023 024 [facility] [address] [place] [address] [place], [address], 03/19/2024 04:22:09 Referral dermatolo gist referral 2023 024 NATALI Sullivan MD, [address] [place] [address] Rd [address], [place], [address], 02/12/2024 07:45:23 Procedures None recorded. Surgeries None recorded. Imaging None recorded. Medication Orders metronida zole 1 % topical cream 2023 024 [facility], [address] [place] [address], [id number], 03/26/2024 14:45:44 doxycycli ne monohydra te 100 mg tablet 2023 024 [facility], [address] [place] [address], [id number], 02/11/2024 17:13:04 prednison e 10 mg tablet 2023 024 [facility], [address] [place] [address], [id number], 03/26/2024 14:46:05 tamsulosi n 0.4 mg capsule 2023 024 [facility], [address] [place] [address], [id number], 02/11/2024 17:13:23 Patient TargetsNo targets recorded. Patient InstructionsNo instructions recorded. 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 Referral for D isorder of skin and/or subcutaneous tissue referral for presumed BCC on nose and rt ant ear, also rosacea Referring Physician: Lee Meneses, Family Medicine, Encounter Date: 02/11/2024 Results Created Date Observation Date Name Description Value Unit Range Abnormal Flag LastModifiedBy Organization Detail LastModifiedTime 04/06/20 24 04/06/2024 CT imagi ng repor t Patien t Name: Jj biggsIván astudillo M Unit #: [id number] Loc: DI Orderi ng Provid er: Lee Joya t #: [id number] Status : REG CLI Primar y [...] in the left upper lobe (apica l county manager ior segmen t) which was not eviden [...] ---- Dictat ed By: Johnathon West M.D. [id number] Transc ribed By: Jenna CASTILLO,Diane peña 164 This is privil eged, confid ential inform ation intend ed only for the provid er named. Any use or distri bution by any person other than this provid er is strict ly prohib ited. If you receiv e this report in error, please notify us immedi ately at [phone] and return the origin al report to us at the addres s above. Thank- you. landry [facility] [address], [place], [address] 04/06/2024 20:40:24 Result Notes None recorded. Problems [...] F32.9; Problem Code Type: ICD-10; Not Available [facility] [facility] 3 05:28:17 Essential hypertension Active 201011/07/2020 - Comments only - Lee Meneses MD - per recent reading at [facility] I feel this is remaining under reasonable control. He will continue the metoprolol, terazosin. Also on isosorbide. Problem Code: I10; Problem Code Type: ICD-10; ENRIQUE LIMON MD [address], [place], [address] , [facility] 3 15:45:28 Hyperlipidemi a Active 201005/19/2019 - Comments only - Primitivo Brown - He will continue atorvastatin. Problem Code: E78.5; Problem Code Type: ICD-10; Not Available [facility] [facility] 3 05:28:17 Generalized anxiety disorder Active 201208/08/2021 - Comments only - Lee Meneses MD - improved now that he has a warm apartment to be in for the winter. He has his name on a list for a senior apartment complex also. He will remain on the wellbutrin and venlafaxine for now. Problem Code: F41.1; Problem Code Type: ICD-10; Not Available [facility] [facility] 3 05:28:17 Postprocedura l state finding Active 2012 Problem Code: Z98.89; Problem Code Type: ICD-10; Not Available [facility] [facility] 3 05:28:18 Gastrointesti nal tract excision Active 2012 Problem Code: Z90.49; Problem Code Type: ICD-10; Not Available [facility] [facility] 3 05:28:18 History of polyp of colon Active 2018 Problem Code: Z86.010; Problem Code Type: ICD-10; Not Available [facility] [facility] 3 05:28:18 Gastroesophag eal reflux disease without esophagitis Active 201011/07/2020 - Comments only - Lee Meneses MD - discussed trying to cut back on prilosec. He will continue the AM dose but d/c the PM. He continues on ranitidine at . Problem Code: K21.9; Problem Code Type: ICD-10; MD [address], [place], [address] , [facility] 3 15:45:28 Sj??gren's syndrome Active 201308/11/2022 - Comments only - Lee Meneses MD - , Possible Sjogren's. He does have RA as well. Again he is learned to live with it for the most part. Problem Code: M35.00; Problem Code Type: ICD-10; Not Available [facility] 3 05:28:18 Overweight Active 2010 Problem Code: E66.3; Problem Code Type: ICD-10; Not Available [facility] 3 05:28:18 Insomnia Active 201008/08/2021 - Comments only - Lee Meneses MD - doing better on the trazadone, off the temazepam. Will continue to monitor. Problem Code: G47.00; Problem Code Type: ICD-10; Not Available [facility] 3 05:28:18 Osteoporotic fracture of vertebra Active 2010 Problem Code: M80.88xD; Problem Code Type: ICD-10; Not Available [facility] 3 05:28:19 Rheumatoid arthritis Active 201002/12/2023 - Comments only - Lee Meenses MD - He continues on rituxan, followed by rheumatology Problem Code: M06.9; Problem Code Type: ICD-10; MD [address], [place], [address] , [facility] 3 15:45:28 Rosacea Active 201203/18/2022 [...] Code Type: ICD-10; MD [address], [place], [address] , [facility] 3 15:45:28 Secondary pulmonary hypertension Active 2014 Problem Code: I27.2; Problem Code Type: ICD-10; Not Available [facility] 3 05:28:19 Dyspnea Active 201407/05/2021 - Comments [...] R06.00; Problem Code Type: ICD-10; Not Available [facility] 3 05:28:19 Congenital anomaly of diaphragm Active 2014 Problem Code: Q79.1; Problem Code Type: ICD-10; MD [address], [place], [address] , [facility] 3 15:45:29 Polyneuropath y Active 2015 Problem Code: G62.9; Problem Code Type: ICD-10; Not Available [facility] 3 05:28:20 Hypothyroidis m Active 201508/11/2022 - Comments only - Lee Meneses MD - On levothyroxine . TSH ordered. Problem Code: E03.9; Problem Code Type: ICD-10; MD [address], [place], [address] , [facility] 3 15:45:28 Joint pain Active 2015 Problem Code: M25.50; Problem Code Type: ICD-10; Not Available [facility] 3 05:28:20 Adjustment disorder Active 2015 Problem Code: F43.29; Problem Code Type: ICD-10; Not Available [facility] 3 05:28:20 Osteoporosis Active 2015 Problem Code: M81.8; Problem Code Type: ICD-10; Not Available [facility] 3 05:28:20 Acute upper respiratory infection Completed 201506/09/2016 Problem Code: J06.9; Problem Code Type: ICD-10; Not Available [facility] 3 05:28:20 Bleeding from nose Active 2017 Problem Code: R04.0; Problem Code Type: ICD-10; Not Available [facility] 3 05:28:21 Disorder of pharynx Active 2017 Problem Code: J39.2; Problem Code Type: ICD-10; Not Available [facility] 3 05:28:21 Pain of left shoulder joint Active 2017 Problem Code: M25.512; Problem Code Type: ICD-10; Not Available [facility] 3 05:28:21 Chest pain Active 2017 Problem Code: R07.9; Problem Code Type: ICD-10; Not Available [facility] 3 05:28:21 Wheezing Active 2017 Problem Code: R06.2; Problem Code Type: ICD-10; Not Available [facility] 3 05:28:21 Cough Active 201707/05/2021 - Comments [...] Code Type: ICD-10; Not Available [facility] 3 05:28:21 Cardiomyopath y Active 201703/18/2022 - Comments only - Lee Meneses MD - /Pulmonary hypertension. Overall he is remaining stable, continues on medications as listed in prior . . Problem Code: I42.9; Problem Code Type: ICD-10; ENRIQUE LIMON MD [address], [place], [address] , [facility] 3 15:45:29 Melena Active 2017 Problem Code: K92.1; Problem Code Type: ICD-10; Not Available [facility] 3 05:28:22 Screening for malignant neoplasm of colon Active 201803/10/2019 - Comments only - Lee Meneses MD - colonoscopy 2018 with tubular adenoma with high grade dysplasia - repeat by early 2019 Problem Code: Z12.11; Problem Code Type: ICD-10; Not Available [facility] 3 05:28:22 Itching of skin Active 2018 Problem Code: L29.9; Problem Code Type: ICD-10; Not Available [facility] 3 05:28:23 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 He continues on atorvastatin, metoprolol, isosorbide, ASA. Problem Code: I25.10; Problem Code Type: ICD-10; MD [address], [place], [address] , [facility] 3 15:45:28 Adult health examination Active 201803/06/2021 - Comments only - Lee Meneses MD - He would like to check a PSA with the blood work. Problem Code: Z00.00; Problem Code Type: ICD-10; Not Available [facility] 3 05:28:23 Benign prostatic hyperplasia Active 201805/19/2019 - Comments only - Lee Meneses MD - with persistent nocturia - will have him increase the terazosin to 4mg qhs Problem Code: N40.0; Problem Code Type: ICD-10; MD [address], [place], [address] , [facility] 3 15:45:28 Dysphagia Active 201805/19/2019 [...] R13.10; Problem Code Type: ICD-10; Not Available [facility] [facility] 3 05:28:23 Non-traumatic tendon rupture Active 2018 Problem Code: M66.871; Problem Code Type: ICD-10; Not Available [facility] [facility] 3 05:28:24 Mild intermittent asthma Active 201803/18/2022 - Comments only - Lee Meneses MD - With chronic dyspnea on exertion. He continues on Symbicort, Singulair. I did suggest he can use the ProAir prior to exercise and he will try that. Problem Code: J45.20; Problem Code Type: ICD-10; Not Available [facility] [facility] 3 05:28:24 Traumatic or non-traumatic injury Active 201903/06/2021 - Comments only - Lee Meneses MD - Right status post injury. Resolving well at this point. Problem Code: T14.8xxA; Problem Code Type: ICD-10; Not Available [facility] [facility] 3 05:28:24 Pain of joint of knee Active 2019 Problem Code: M25.569; Problem Code Type: ICD-10; Not Available [facility] [facility] 3 05:28:24 Actinic keratosis Active 2019 Problem Code: L57.0; Problem Code Type: ICD-10; Not Available [facility] [facility] 3 05:28:25 Pain of right knee joint Active 2019 Problem Code: M25.561; Problem Code Type: ICD-10; Not Available [facility] [facility] 3 05:28:25 Prediabetes Active 201908/11/2022 - Comments only - Lee Meneses MD - He will be due for an A1c at the next visit. Problem Code: R73.03; Problem Code Type: ICD-10; ENRIQUE LIMON MD [address], [place], [address] , [facility]. 3 15:45:29 Periapical abscess Active 2019 Problem Code: K04.7; Problem Code Type: ICD-10; Not Available [facility] 3 05:28:26 Disorder of skin and/or subcutaneous tissue Active 202003/18/2022 - Comments only - Lee Meneses MD - Right posterior ear. We will refer Wesly to Dr. Wade for further evaluation/bi opsy. Problem Code: L98.9; Problem Code Type: ICD-10; Not Available [facility] 3 05:28:26 Therapeutic drug monitoring assay Active 2020 Problem Code: Z51.81; Problem Code Type: ICD-10; Not Available [facility] 3 05:28:26 Ureteric stone Active 202007/05/2021 - Comments only - Lee Meneses MD - Currently resolved. Following with urology Problem Code: N20.1; Problem Code Type: ICD-10; Not Available [facility] 3 05:28:26 COVID-19 Active 202111/06/2021 - Comments only - Lee Meneses MD - About 2 months ago. Minimal symptoms, resolved. We did discuss the possibility of the Laura Madrigal I need to find out whether and when he may be a candidate for that given that he has had Covid infection. Problem Code: U07.1; Problem Code Type: ICD-10; Not Available [facility] 3 05:28:26 Disorder of nasal sinus Active [...] on any steroid nasal sprays. Not Available [facility] 3 05:28:27 Chronic cough Active 202102/13/2023 - [...] states he did meet with pulmonology at [facility] at 1 point but they just told him symptoms were on his head . We will try and obtain that note. Problem Code: R05.3; Problem Code Type: ICD-10; MD [address], [place], [address] , [facility] 3 15:45:28 Basal cell carcinoma [...] C44.91; Problem Code Type: ICD-10; Not Available [facility] [facility] 3 05:28:27 Benign neoplasm of colon Active 202108/11/2022 - Comments only - Lee Meneses MD - , History of. Due for colonoscopy. Problem Code: D12.6; Problem Code Type: ICD-10; MD [address], [place], [address] , [facility] 3 15:45:29 Degenerative disorder of macula Active 2022 Problem Code: H35.30; Problem Code Type: ICD-10; Not Available [facility] 3 05:28:28 Long-term current use of drug therapy Active 2022 Problem Code: Z79.69; Problem Code Type: ICD-10; Not Available [facility] 3 05:28:28 Disorder of sacrum Active 2022 Not Available [facility] 3 05:28:28 Hip pain Active 2022 Problem Code: M25.559; Problem Code Type: ICD-10; Not Available [facility] 3 05:28:28 Acute upper respiratory infection Completed 201511/21/2017 Problem Code: J06.9; Problem Code Type: ICD-10; Not Available [facility] 3 05:28:30 Blepharitis Completed 201201/28/2018 Problem Code: H01.009; Problem Code Type: ICD-10; Not Available [facility] 3 05:28:31 Cough Completed 201401/28/2018 Problem Code: R05; Problem Code Type: ICD-10; Not Available [facility] 3 05:28:31 Gastroesophag eal reflux disease Completed 201005/29/2023 Not Available [facility] 3 05:28:31 Dizziness and giddiness Completed 201501/28/2018 Problem Code: R42; Problem Code Type: ICD-10; Not Available [facility] 3 05:28:32 Cellulitis Completed 201606/03/2017 Problem Code: L03.119; Problem Code Type: ICD-10; Not Available [facility] 3 05:28:32 Osteopenia Completed 201005/29/2023 Not Available [facility] 3 05:28:32 Effusion of joint Completed 201401/28/2018 Problem Code: M25.40; Problem Code Type: ICD-10; Not Available [facility] 3 05:28:33 Acute bronchitis Completed 201409/25/2016 Problem Code: J20.9; Problem Code Type: ICD-10; Not Available [facility] 3 05:28:33 Hypertensive disorder Completed 201005/29/2023 Not Available [facility] [facility] 3 05:28:34 Hernia of anterior abdominal wall Completed 201205/29/2023 Not Available [facility] [facility] 3 05:28:35 Bursitis of olecranon of left elbow Completed 201601/28/2018 Problem Code: M70.22; Problem Code Type: ICD-10; Not Available [facility] [facility] 3 05:28:36 Pre-surgery evaluation Completed 201606/03/2017 Problem Code: Z01.818; Problem Code Type: ICD-10; Not Available [facility] 3 05:28:36 Acute pharyngitis Completed 201701/28/2018 Problem Code: J02.9; Problem Code Type: ICD-10; Not Available [facility] 3 05:28:37 Colonoscopy Completed 201205/29/2023 Not Available [facility] [facility] 3 05:28:38 Specialized medical examination Completed 201205/29/2023 Problem Code: Z01.89; Problem Code Type: ICD-10; Not Available [facility] 3 05:28:39 Chronic maxillary sinusitis Completed 201601/28/2018 Problem Code: J32.0; Problem Code Type: ICD-10; Not Available [facility] [facility] 3 05:28:40 Pathological fracture of vertebra Completed 201005/29/2023 Not Available [facility] [facility] 3 05:28:40 Hypothyroidis m Completed 201205/29/2023 ENRIQUE LIMON MD [address], [place], [address] , [facility] 3 15:45:28 Adult health examination Completed 201601/28/2018 Problem Code: Z00.00; Problem Code Type: ICD-10; Not Available [facility] [facility] 3 05:28:41 Osteoporosis Completed 201005/29/2023 Not Available [facility] [facility] 3 05:28:43 Increased frequency of urination Completed 201601/28/2018 Problem Code: R35.0; Problem Code Type: ICD-10; Not Available [facility] 3 05:28:44 Pulmonary hypertension Completed 201405/29/2023 Not Available [facility] 3 05:28:45 Conjunctiviti s Completed 201201/28/2018 Problem Code: H10.89; Problem Code Type: ICD-10; Not Available [facility] 3 05:28:46 Bone density finding Completed 201009/25/2016 Problem Code: M85.80; Problem Code Type: ICD-10; Not Available [facility] 3 05:28:46 Rosacea conjunctiviti s Completed 201205/29/2023 Not Available [facility] 3 05:28:47 Anxiety state Completed 201205/29/2023 Not Available [facility] 3 05:28:48 Obstructed labor due to shoulder dystocia Completed 201501/16/2016 Problem Code: O66.0; Problem Code Type: ICD-10; Not Available [facility] 3 05:28:49 Depressive disorder Completed 201005/29/2023 Not Available [facility] 3 05:28:51 Pneumonia Completed 201701/28/2018 Problem Code: J18.9; Problem Code Type: ICD-10; Not Available [facility] 3 05:28:52 Pain of left shoulder joint Completed 201501/28/2018 Problem Code: M25.512; Problem Code Type: ICD-10; Not Available [facility] 3 05:28:54 History of SARS-CoV-2 Active [address], [place], [address] , [facility]. 4 11:04:33 Benign prostatic hyperplasia with outflow obstruction Active [address], [place], [address] [facility] 4 10:07:46 CT of chest abnormal Active 2023 nodular infiltrate 04/25 - repeat in 3 months MD [address], [facility] [address] [facility] 4 20:40:16 Notes:*Problem Name: Chronic [...] Name and Address Organization Details Recorded Time 47674 lisinopri l medicatio n cough moderate Not available 07/12/20232011 49853 RxNorm dry cough Aller gyCod e: '3140 76'; Aller gyNam e: 'XIOMY NOPRI L'; Aller gyCon ceptT ype: 'RX Norm' ; Aller gyRea ction : 'dry cough '; Not Available [facility] [facility] 3 16:21:49 Medications Name Sig Start Date [...] oral route as needed. active RX by [facility] Not Available Not [...] Not Available Rituxan every 16 weeks at [facility]. Labs 1-2 weeks prior [...] Updated DateTime 4 180.34 cm 29.1 kg/m2 19127.8 1 g 75 /min 87 % 87 % 140 mm[Hg] 72 mm[Hg] Ruthie Ring [facility] 4 09:35:33 Social History Question Answer Notes LastModified by Organizat ion Details LastModified Time Tobacco Smoking Status Never Smoker YAZAN Beaulieu, [facility], [facility]. 11/19/2023 11:03:00 What Was The Date Of Your Most Recent Tobacco Screening? 11/19/2023 [email or web address] Information not available 11/19/2023 Has Tobacco Cessation Counseling Been Provided? No [email or web address] Information not available 11/19/2023 Do You Or [...] preservative free, adsorbed 06/14/2020 completed Not Available [facility] [facility] 07/12/2023 04:58:16 Tdap 05/08/2012 completed Not Available [facility] [facility] 04:58:16 Pneumococcal conjugate PCV 13 06/26/2016 completed Not Available [facility] [facility] 07/12/2023 04:58:17 Influenza, high-dose, trivalent, PF 06/04/2018 completed Not Available [facility] [facility] 07/12/2023 04:58:18 Influenza, split virus, trivalent, preservative 05/23/2016 completed Not Available [facility] 07/12/2023 04:58:18 Influenza, split virus, trivalent, preservative 05/26/2015 completed Not Available [facility] [facility] 07/12/2023 04:58:19 Influenza, high-dose, quadrivalent, PF 06/30/2020 completed Not Available [facility] [facility] 07/12/2023 04:58:20 Influenza, high-dose, quadrivalent, PF 06/30/2021 completed Not Available [facility] [facility] 07/12/2023 04:58:21 Influenza, high-dose, quadrivalent, PF 07/06/2022 completed Not Available [facility] [facility] 07/12/2023 04:58:21 COVID-19, mRNA, LNP-S, PF, 100 mcg/0.5mL dose or 50 mcg/0.25mL dose 11/07/2020 completed Not Available [facility] [facility] 07/12/2023 04:58:21 COVID-19, mRNA, LNP-S, PF, 100 mcg/0.5mL dose or 50 mcg/0.25mL dose 12/05/2020 completed Not Available [facility] [facility] 07/12/2023 04:58:22 COVID-19, mRNA, LNP-S, PF, 100 mcg/0.5mL dose or 50 mcg/0.25mL dose 12/26/2021 completed Not Available [facility] [facility] 07/12/2023 04:58:22 COVID-19, mRNA, LNP-S, PF, 100 mcg/0.5mL dose or 50 mcg/0.25mL dose 06/30/2021 completed Not Available [facility] [facility] 07/12/2023 04:58:22 COVID-19, mRNA, LNP-S, bivalent, PF, 30 mcg/0.3 mL dose 07/06/2022 completed Not Available [facility] [facility] 07/12/20 04:58:23 pneumococcal polysaccharide PPV23 09/07/2014 completed Not Available [facility] 2022 04:58:23 influenza, unspecified formulation 05/20/2014 completed Not Available [facility] 07/12/2023 04:58:24 influenza, unspecified formulation 06/05/2017 completed Not Available [facility] 07/12/2023 04:58:24 influenza, unspecified formulation 07/02/2019 completed Not Available [facility] 07/12/2023 04:58:26 Influenza, high-dose, quadrivalent, PF 05/14/2023 completed Not Available [facility] [facility] 09/13/2023 05:31:41 COVID-19, mRNA, LNP-S, PF, jonathan-sucrose, 30 mcg/0.3 mL 08/21/2023 completed Perico Quiroz MA [facility] [place] - [facility] 08/21/2023 10:07:33 Past Encounters Encounter ID Performer Location Encounter Start Date Encounter Closed Date Diagnosis/Indication Diagnosis SNOMED-CT Code [id number] LEE MENESES MD [address] [address] 02/11/2024 09:18:07 02/11/2024 10:20:49 Hypercalcemia [id number] Cardiomyopathy [id number] Disorder o f skin and/or subcutaneous tissue 31451671 Benign pro static hyperplasia with outflow obstruction 586314645 Chronic cough 29150176 Hypothyroidism 10073774 Health Concerns Section Related Observation LastModified by Organization Detai ls LastModified Time None Recorded Concern Status LastModified by Organization Details LastModified Time None Recorded Payers Encounter Date Sequence Insurance Name Policy Number Policy Cervantes Covered Member ID Cervantes Member ID Guarantor Name 02/11/2024 1 [employer] (MEDICARE REPLACEMENT/ ADVANTAGE - PPO) Wesly Ybarra [id number] Wesly Ybarra
--- OUTSIDE RECORDS SUMMARY | 2024-04-07 03:21 | XMS_ITS | Encounter Summary ---
Author Organization [facility] [place] [address] Care Team Providers Care Saddle Stitching Machine Operator Name Role Phone Arelis Michele MD Primary Care Provider [phone] Encounter Details Date Type Department Care Team (Late st Contact Info) Description 02/05/2023 10:00 AM EDT Office Visit [place] [address] Alice Carney FILM MASKER [facility] [place] [address] High risk medication use; Rheumatoid arthritis with [...] resumption of Rituxan (received Ruxience) 03/2021 at [facility]. He could not continue with RTX due to [id number] cost then was able to resume name brand Rituxan via [employer] 2021 with benefit to joints. Orencia tried [id number] and stopped due to lack of efficacy [...] 1000 mg IV Q16W infusion resumed at [facility] -- next infusion cancelled due to unaffordable [id number] cost. Plan was to start Xeljanz 07/2021 given limited options available to patient for treatment given medical history and co-morbidities after communication via ED with Wesly Munoz MD, in cardiology. He never started it due to concerns about black box warnings. Leflunomide 10 mg daily started 10/2021 while investigating [employer] medication assistance program. No improvement with leflunomide [...] NSAIDS per cardiology. CAD and CMP: [facility] Cardiology OV notes from 09/27/2020 (Wesly Munoz MD) reviewed 02/28/2021. CAD: s/p CABG (Patient Denies!) and s/p mid LAD stent March 2019. Additional workup with CPET planned at [facility] for eval of ongoing SOB (Patient says [...] with cardiology. Vinayak-diaphragm, ZEPEDA, wheezing: Comprehensive work-up [facility] pulmonology (last OV 08/2020) with no clear diagnosis. Responds to nebulizer treatment with unknown medication. Interval History: Current treatment for RA: Rituxan (name brand) 1000 mg Q4M per [employer] medication assistance program started 02/13/2022. Last infusion: [...] know the results. Followed by ophthalmology at [facility] for what he describes is a black spot behind his right eye. It is currently being watched and if it enlarges there is potential concern for melanoma. He says his crisis worker is aware that he is on Rituxan [...] remote injury. See ROS. Per 12/2021 OV: [employer] Rituxan medication assistance program was recently approved [...] persistent dyspnea which is ongoing and his brass pourer at [facility] ordered a repeat stress test [...] is recovered well. He met his new brass pourer at [facility] 09/2021 and he is pleased with her [...] I discussed this case briefly with his news agent (though he did not review prior notes [...] with fluid overload. Note that on 03/21/2021 [facility] Rheumatology nurse confirmed with ASHLEY Wise, that [facility] infusion labthat per their protocol, and in [...] -- ongoing. Followed by cardiology at [facility]. Pulmonary: Denies hemoptysis. + SOB at rest at times with + ZEPEDA. Unremarkable work-up [facility] pulmonology. Nebulizer (med ?) helps. Sometimes uses [...] Osteoporosis with pathologic vertebral fracture per [facility] notes but not on file at [facility]. Physical Examination: BP 144/79 (BP Location (NBP): [...] CRP 0.53 (ULN 0.3). ESR 4. [facility] 05/22/2022: Normal CMP and CBC. Mildly elevated CRP at 0.98 (ULN 0.3) with normal ESR at 2. [facility] 06/07/2021: unremarkable CBC, CMP, ESR, CRP. Negative Hepatitis B/C and TB Quant Gold screening. [facility] 03/2021: unremarkable CBC, CMP ASSESSMENT/RECOMMENDATIONS: Seropositive rheumatoid arthritis: Good control since initiation of Rituxan 01/2022 (1000 mg Q4M [employer]) done at [facility]. He is tolerating infusions well without s/s fluid overload by his report. He would like to continue this treatment. Hold parameters reviewed. [facility] and knows [...] to cardiology. Plan: Continue Rituxan Q4M at [facility]. Labs at [facility] 2 weeks before. If he cannot accomplish [...] Michele MD CC: Qian Navarro MD , [facility] -- Dr. Navarro, I want [...] 12:00 PM EDT Appointment Med Infusion at [facility] [place] [address] documented as of this encounter Procedures Procedure [...] 11:07 AM EDT) Neutrophil % 59.5 % [facility] Neutrophil Absolute 4.81 1.70 - 6.10 x10(3)/[facility] Lymph % 27.9 % [facility] Lymphocytes Abs 2.3 0.9 - 3.2 x10(3)/[facility] Monocyte % 8.3 % [facility] Monocyte Abs 0.7 0.3 - 0.9 x10(3)/[facility] Eos % 3.6 % [facility] Eosinophils Abs 0.3 0.0 - 0.4 x10(3)/[facility] Basophil % 0.6 % [facility] Baso Absolute 0.0 0.0 - 0.1 x10(3)/[facility] Immature Gran % 0.10 % [facility] Comment: Immature granulocytes(IG's)percentage and absolute count will include metamyelocytes, myelocytes, and promyelocytes. Blood smears from CBCs yielding IG's will be scanned manually for concordance. If this scan disagrees with the automated IG or if promyelocytes are noted, a manual differential will be performed. Immature Gran Absolute 0.01 0.00 - 0.04 x10(3)/[facility] Blood 02/05/2023 11:0 7 AM EDT 02/05/2023 11:45 AM EDT Narrative Resulting Agency Comment Spec In Lab Alice Carney FILM [facility]ASKER HEMATOLOGY ORDERABLE S Performing Organization Address City/State/[facility] Co de Phone Number [facility] [place] [address] * (ABNORMAL) Hemogram (02/05/2023 11:07 AM EDT) White Blood Cell 8.1 4.0 - 9.5 x10(3)/mc L [facility] Red Blood Cell 5.38 4.58 - 5.54 x10(6)/mc L [facility] Hemoglobin 15.6 13.7 - 16.5 g/dL [facility] Hematocrit 49.4(H) 40.5 - 48.5 % [facility] Mean Cell Volume 91.8 82.9 - 93.1 fL [facility] Mean Cell Hemoglobin 29.0 27.5 - 32.1 pg [facility] Mean Cell Hemoglobin Concentration 31.6(L) 32.0 - 35.7 g/dL [facility] Platelet 261 145 - 357 x10(3)/mc L [facility] RDW Standard Deviation 43.9 36.0 - 45.0 fL [facility] RDW coefficient of variation 13.0 11.4 - 13.8 % [facility] Mean Platelet Volume 10.0 7.6 - 12.9 fL [facility] NRBC% auto 0.0 % [facility] NRBC Absolute 0.000 0.000 - 0.000 x10(3)/mc L [facility] Blood 02/05/2023 11:0 7 AM EDT 02/05/2023 11:45 AM EDT Narrative Resulting Agency Comment Spec In Lab Alice Carney ITA HEMATOLOGY ORDERABLE S [facility] [place] [address] * Comprehensive metabolic panel (non-fasting) (02/05/2023 11:07 AM EDT) Glucose 95 65 - 199 mg/dL [facility] Comment:Diabetes: >=200 mg/d L plus symptoms Blood Urea Nitrogen 16 10 - 20 mg/dL [facility] Creatinine 0.95 0.80 - 1.50 mg/dL [facility] Sodium 143 135 - 145 mmol/L [facility] Potassium 4.2 3.5 - 5.0 mmol/L [facility] Comment: Please note: ??Patients with WBC >100,000 may have falsely elevated Potassium levels. ??For accurate Potassium quantification in these patients send serum separator tube (gold top) for subsequent determinations. ??Contact the Clinical Chemistry Laboratory if there are any questions. Chloride 107 98 - 107 mmol/L [facility] Carbon Dioxide 29 22 - 31 mmol/L [facility] Anion Gap 7 5 - 15 mmol/L [facility] Calcium 9.3 8.5 - 10.5 mg/dL [facility] Protein, Total 6.3 6.1 - 8.0 g/dL [facility] Albumin 4.0 3.2 - 5.2 g/dL [facility] Aspartate Aminotransferase 15 0 - 39 unit/L [facility] Alanine Aminotransferase 14 0 - 55 unit/L [facility] Alkaline Phosphatase 92 40 - 130 unit/L [facility] Bilirubin, Total 0.3 0.2 - 1.3 mg/dL [facility] Est Glomerular Filtration Rate 84 >=60 mL/min/1. 73 m?? [facility] Comment: This patient's estimated GFR was [...] CHEMISTRY ORDERABLES Performing Organization Address [facility] Co de Phone Number [facility] [place] [address] * (ABNORMAL) CRP, acute inflammation (02/05/2023 11:07 AM EDT) C-Reactive Protein 6.5(H) <=4.9 mg/L [facility] Blood 02/05/2023 11:0 7 AM EDT 02/05/2023 11:45 AM EDT Narrative Resulting Agency Comment Spec In Lab Alice Carney APRN CHEMISTRY ORDERABLES Performing Organization Address [facility] Co de Phone Number [facility] [place] [address] * Sedimentation rate (02/05/2023 11:07 AM EDT) Sedimentation Rate Automated 4 3 - 46 mm/hr [facility] Comment: Effective August 12, 2019 new capillary photometric technology has resulted in a change in reference ranges. It is recommended that each ESR result be reviewed with its own age appropriate reference range. Blood 02/05/2023 11:0 7 AM EDT 02/05/2023 11:45 AM EDT Narrative Resulting Agency Comment Spec In Lab Alice Carney APRN [place] [address] documented in this encounter Visit Diagnoses Diagnosis High risk medication use Encounter for long-term (current) use of other medications Rheumatoid arthritis with positive rheumatoid factor, involving unspecified site documented in this encounter Care Teams Saddle Stitching Machine Operator Relationship Specialty Start Date End Date Arelis Michele MD [address] [place] [address] PCP - General Family Medicine 08/01/18 02/11/24 documented as of this encounter
--- OUTSIDE RECORDS SUMMARY | 2024-04-07 03:21 | XMS_ITS | Continuity of Care Document ---
Author Organization [facility] [employer] [facility] Address [address] [place] [address] Care Team Providers Care Coal Bagger Name Role Phone DELPHINE ZARCO Kiss Mixer DIONE PATEL Hand Edge Bander [phone] Assessment No assessment recorded. Plan of Treatment Reminders Order Date Submit Date Provider Last Modified By Organization Details Last Modified Time Details Appointments Follow Up 30 2023 08:10A M LEE MENESES Not available Not available Not available Lab BMP, serum or plasma 2023 024 [facility] (Registration ), [address] [place] [address] Dr, [place], [address], 01/17/2024 07:56:50 Referral None recorded. Procedures None recorded. Surgeries None recorded. Imaging None recorded. Medication Orders prednison e 10 mg tablet [address] [facility] [address], [address] [place], [address], 03/26/2024 14:46:00 Patient TargetsNo targets recorded. Patient InstructionsNo instructions recorded. Reason for Referral Director Home Health Referral for D isorder of skin and/or subcutaneous tissue referral for presumed BCC on nose and rt ant ear, also rosacea Referring Physician: Lee Meneses, Family Medicine, Encounter Date: 02/11/2024 Results Created Date Observation Date Name Description Value Unit Range Abnormal Flag LastModifiedBy Organization Detail LastModifiedTime 12/28/19 24 12/28/2023 vrad repor t [place] t Name: Iván Grover Unit #: [id number] Loc: ABEL Hopkins dea Provid er: Denise corbett #: [id number] Status : REG CLI Primar y [...] sims d by: Ady lópez MD. Kellie amlin:Dawn Montanez MD Access ion#=[id number] Ordere d By: CC: ------ ------ [...] the addres s above. Thank- you. landry [facility] [address], [place], [address] 01/05/2024 07:04:06 12/28/19 24 12/28/2023 x-ray imagi ng repor t Patien t Name: Iván Grover Unit #: [id number] Loc: DI Orderi ng Provid er: April Marion Accanand t #: [id number] Status : REG CLI Primar [...] at the addres s above. Thank- you. [facility] [address] [place], [address] 01/05/2024 07:04:06 12/30/19 24 12/30/2023 x-ray imagi ng repor t George t Name: Iván Grover Unit #: [id number] Loc: ER Orderi ng Provid er: Mc Avalos M.D. Accoun t #: [id number] Status : REG ER Primar y [...] error, please notify us immedi ately at [phone] and return the origin al report to us at the addres s above. Thank- you. [facility] [address], [place], [address] 01/05/2024 07:04:06 01/08/20 24 01/08/2024 XR, chest , 2 view George corbett Name: Iván Grover Unit #: [id number] Loc: ER Orderi ng Provid er: April Marion Accanand t #: [id number] Status : REG ER Primar [...] at the addres s above. Thank- you. [email or web address] [facility] [address], [place], [address] 02/06/2024 12:04:57 04/06/20 24 04/06/2024 CT imagi ng repor t [place] t Name: Iván Grover baudilio Krish Unit #: [id number] Loc: DI Orderi ng Provid er: Lee Joya Accanand t #: [id number] Status : REG CLI Primar y [...] in the left upper lobe (apica l bin piler ior segmen t) which was not eviden [...] ZATION : [facility] use at least one of these [...] 1645 1645 Transc ribed By: Jenna CASTILLO,Diane mariana 1645 This is privil eged, confid ential inform [...] the addres s above. Thank- you. landry [facility] [address], [place], [address] 04/06/2024 20:40:24 Result Notes None recorded. Problems [...] Meneses MD - per recent reading at [facility] I feel this is remaining under reasonable control. He will continue the metoprolol, terazosin. Also on isosorbide. Problem Code: I10; Problem Code Type: ICD-10; ENRIQUE LIMON MD [address], [place], [address] , [facility] 3 15:45:28 Hyperlipidemi a Active 201005/19/2019 - Comments only - Primitivo Brown - He will continue atorvastatin. Problem Code: E78.5; Problem Code Type: ICD-10; Not Available [facility] 3 05:28:17 Generalized anxiety disorder Active 201208/08/2021 [...] ICD-10; ENRIQUE LIMON MD [address], [place], [address] , [facility] 3 15:45:28 Sj??gren's syndrome Active 201308/11/2022 - Comments only - Lee Meneses MD - , Possible Sjogren's. He does have RA as well. Again he is learned to live with it for the most part. Problem Code: M35.00; Problem Code Type: ICD-10; Not Available [facility] 3 05:28:18 Overweight Active 2010 Problem Code: E66.3; Problem Code Type: ICD-10; Not Available [facility] 3 05:28:18 Insomnia Active 201008/08/2021 - Comments only - Lee Meneses MD - doing better on the trazadone, off the temazepam. Will continue to monitor. Problem Code: G47.00; Problem Code Type: ICD-10; Not Available [facility] 3 05:28:18 Osteoporotic fracture of vertebra Active 2010 Problem Code: M80.88xD; Problem Code Type: ICD-10; Not Available [facility] 3 05:28:19 Rheumatoid arthritis Active 201002/12/2023 - Comments only - Lee Meneses MD - He continues on rituxan, followed by rheumatology Problem Code: M06.9; Problem Code Type: ICD-10; MD [address], [place], [address] , [facility] 3 15:45:28 Rosacea Active 201203/18/2022 - Comments only - Lee Meneses MD - Which seems to have flared up with his accidentally using diclofenac gel instead of metronidazole gel. Explained the difference to him. He will hop picker the MetroGel and start using that. If he has not had improvement within 3 to 4 weeks to let us know. Problem Code: L71.9; Problem Code Type: ICD-10; MD [address], [place], [address] , [facility] 3 15:45:28 Secondary pulmonary hypertension Active 2014 Problem Code: I27.2; Problem Code Type: ICD-10; Not Available [facility] 3 05:28:19 Dyspnea Active 201407/05/2021 - Comments [...] R06.00; Problem Code Type: ICD-10; Not Available [facility] 3 05:28:19 Congenital anomaly of diaphragm Active 2014 Problem Code: Q79.1; Problem Code Type: ICD-10; MD [address], [place], [address] , [facility] 3 15:45:29 Polyneuropath y Active 2015 Problem Code: G62.9; Problem Code Type: ICD-10; Not Available [facility] 3 05:28:20 Hypothyroidis m Active 201508/11/2022 - Comments only - Lee Meneses MD - On levothyroxine . TSH ordered. Problem Code: E03.9; Problem Code Type: ICD-10; MD [address], [place], [address] , [facility] 3 15:45:28 Joint pain Active 2015 Problem Code: M25.50; Problem Code Type: ICD-10; Not Available [facility] 3 05:28:20 Adjustment disorder Active 2015 Problem Code: F43.29; Problem Code Type: ICD-10; Not Available [facility] 3 05:28:20 Osteoporosis Active 2015 Problem Code: M81.8; Problem Code Type: ICD-10; Not Available [facility] 3 05:28:20 Acute upper respiratory infection Completed 201506/09/2016 Problem Code: J06.9; Problem Code Type: ICD-10; Not Available [facility] 3 05:28:20 Bleeding from nose Active 2017 Problem Code: R04.0; Problem Code Type: ICD-10; Not Available [facility] 3 05:28:21 Disorder of pharynx Active 2017 Problem Code: J39.2; Problem Code Type: ICD-10; Not Available [facility] 3 05:28:21 Pain of left shoulder joint Active 2017 Problem Code: M25.512; Problem Code Type: ICD-10; Not Available [facility] 3 05:28:21 Chest pain Active 2017 Problem Code: R07.9; Problem Code Type: ICD-10; Not Available [facility] 3 05:28:21 Wheezing Active 2017 Problem Code: R06.2; Problem Code Type: ICD-10; Not Available [facility] 3 05:28:21 Cough Active 201707/05/2021 [...] R05; Problem Code Type: ICD-10; Not Available [facility] 3 05:28:21 Cardiomyopath y Active 201703/18/2022 - Comments only - Lee Meneses MD - /Pulmonary hypertension. Overall he is remaining stable, continues on medications as listed in prior . . Problem Code: I42.9; Problem Code Type: ICD-10; ENRIQUE LIMON MD [address], [place], [address] , [facility]. 3 15:45:29 Melena Active 2017 Problem Code: K92.1; Problem Code Type: ICD-10; Not Available [facility] 3 05:28:22 Screening for malignant neoplasm of colon Active 201803/10/2019 - Comments only - Lee Meneses MD - colonoscopy 2018 with tubular adenoma with high grade dysplasia - repeat by early 2019 Problem Code: Z12.11; Problem Code Type: ICD-10; Not Available [facility] 3 05:28:22 Itching of skin Active 2018 Problem Code: L29.9; Problem Code Type: ICD-10; Not Available [facility] 3 05:28:23 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 He continues on atorvastatin, metoprolol, isosorbide, ASA. Problem Code: I25.10; Problem Code Type: ICD-10; MD [address], [place], [address] , [facility] 3 15:45:28 Adult health examination Active 201803/06/2021 - Comments only - Lee Meneses MD - He would like to check a PSA with the blood work. Problem Code: Z00.00; Problem Code Type: ICD-10; Not Available [facility] 3 05:28:23 Benign prostatic hyperplasia Active 201805/19/2019 - Comments only - Lee Meneses MD - with persistent nocturia - will have him increase the terazosin to 4mg qhs Problem Code: N40.0; Problem Code Type: ICD-10; MD [address], [place], [address] , [facility] 3 15:45:28 Dysphagia Active 201805/19/2019 - Comments [...] M66.871; Problem Code Type: ICD-10; Not Available [facility] 3 05:28:24 Mild intermittent asthma Active 201803/18/2022 [...] M25.569; Problem Code Type: ICD-10; Not Available [facility] 3 05:28:24 Actinic keratosis Active 2019 Problem Code: L57.0; Problem Code Type: ICD-10; Not Available [facility] 3 05:28:25 Pain of right knee joint Active 2019 Problem Code: M25.561; Problem Code Type: ICD-10; Not Available [facility] 3 05:28:25 Prediabetes Active 201908/11/2022 - Comments only - Lee Meneses MD - He will be due for an A1c at the next visit. Problem Code: R73.03; Problem Code Type: ICD-10; ENRIQUE LIMON MD [address], [place], [address] , [facility]. 3 15:45:29 Periapical abscess Active 2019 [...] N20.1; Problem Code Type: ICD-10; Not Available [facility] 3 05:28:26 COVID-19 Active 202111/06/2021 - Comments only - Lee Meneses MD - About 2 months ago. Minimal symptoms, resolved. We did discuss the possibility of the Laura Madrigal I need to find out whether and when he may be a candidate for that given that he has had Covid infection. Problem Code: U07.1; Problem Code Type: ICD-10; Not Available [facility] 3 05:28:26 Disorder of nasal [...] on any steroid nasal sprays. Not Available [facility] 3 05:28:27 Chronic cough Active [...] states he did meet with pulmonology at [facility] at 1 point but they just told him symptoms were on his head . We will try and obtain that note. Problem Code: R05.3; Problem Code Type: ICD-10; MD [address], [place], [address] , [facility] 15:45:28 Basal cell carcinoma of skin Active [...] Code Type: ICD-10; MD [address], [place], [address] , [facility] 15:45:29 Degenerative disorder of macula Active 2022 Problem Code: H35.30; Problem Code Type: ICD-10; Not Available [facility] 3 05:28:28 Long-term current use of drug therapy Active 2022 Problem Code: Z79.69; Problem Code Type: ICD-10; Not Available [facility] 3 05:28:28 Disorder of sacrum Active 2022 Not Available [facility] 3 05:28:28 Hip pain Active 2022 Problem Code: M25.559; Problem Code Type: ICD-10; Not Available [facility] 3 05:28:28 Acute upper respiratory infection Completed 201511/21/2017 Problem Code: J06.9; Problem Code Type: ICD-10; Not Available [facility] 3 05:28:30 Blepharitis Completed 201201/28/2018 Problem Code: H01.009; Problem Code Type: ICD-10; Not Available [facility] 3 05:28:31 Cough Completed 201401/28/2018 Problem Code: R05; Problem Code Type: ICD-10; Not Available [facility] 3 05:28:31 Gastroesophag eal reflux disease Completed 201005/29/2023 Not Available [facility] 3 05:28:31 Dizziness and giddiness Completed 201501/28/2018 Problem Code: R42; Problem Code Type: ICD-10; Not Available [facility] 3 05:28:32 Cellulitis Completed 201606/03/2017 Problem Code: L03.119; Problem Code Type: ICD-10; Not Available [facility] 3 05:28:32 Osteopenia Completed 201005/29/2023 Not Available [facility] 3 05:28:32 Effusion of joint Completed 201401/28/2018 Problem Code: M25.40; Problem Code Type: ICD-10; Not Available [facility] 3 05:28:33 Acute bronchitis Completed 201409/25/2016 Problem Code: J20.9; Problem Code Type: ICD-10; Not Available [facility] 3 05:28:33 Hypertensive disorder Completed 201005/29/2023 Not Available [facility] 3 05:28:34 Hernia of anterior abdominal wall Completed 201205/29/2023 Not Available [facility] 3 05:28:35 Bursitis of olecranon of left elbow Completed 201601/28/2018 Problem Code: M70.22; Problem Code Type: ICD-10; Not Available [facility] 3 05:28:36 Pre-surgery evaluation Completed 201606/03/2017 Problem Code: Z01.818; Problem Code Type: ICD-10; Not Available [facility] 3 05:28:36 Acute pharyngitis Completed 201701/28/2018 Problem Code: J02.9; Problem Code Type: ICD-10; Not Available [facility] 3 05:28:37 Colonoscopy Completed 201205/29/2023 Not Available [facility] 3 05:28:38 Specialized medical examination Completed 201205/29/2023 Problem Code: Z01.89; Problem Code Type: ICD-10; Not Available [facility] 3 05:28:39 Chronic maxillary sinusitis Completed 201601/28/2018 Problem Code: J32.0; Problem Code Type: ICD-10; Not Available [facility] 3 05:28:40 Pathological fracture of vertebra Completed 201005/29/2023 Not Available [facility] 3 05:28:40 Hypothyroidis m Completed 201205/29/2023 ENRIQUE LIMON MD [address], [place], [address] , [facility]. 3 15:45:28 Adult health examination Completed 201601/28/2018 Problem Code: Z00.00; Problem Code Type: ICD-10; Not Available [facility] 3 05:28:41 Osteoporosis Completed 201005/29/2023 Not Available [facility] 3 05:28:43 Increased frequency of urination Completed 201601/28/2018 Problem Code: R35.0; Problem Code Type: ICD-10; Not Available [facility] 3 05:28:44 Pulmonary hypertension Completed 201405/29/2023 Not Available [facility] 3 05:28:45 Conjunctiviti s Completed 201201/28/2018 Problem Code: H10.89; Problem Code Type: ICD-10; Not Available [facility] 3 05:28:46 Bone density finding Completed 201009/25/2016 Problem Code: M85.80; Problem Code Type: ICD-10; Not Available [facility] 3 05:28:46 Rosacea conjunctiviti s Completed 201205/29/2023 Not Available [facility] 3 05:28:47 Anxiety state Completed 201205/29/2023 Not Available [facility] 3 05:28:48 Obstructed labor due to shoulder dystocia Completed 201501/16/2016 Problem Code: O66.0; Problem Code Type: ICD-10; Not Available [facility] 3 05:28:49 Depressive disorder Completed 201005/29/2023 Not Available [facility] 3 05:28:51 Pneumonia Completed 201701/28/2018 Problem Code: J18.9; Problem Code Type: ICD-10; Not Available [facility] 3 05:28:52 Pain of left shoulder joint Completed 201501/28/2018 Problem Code: M25.512; Problem Code Type: ICD-10; Not Available [facility] 3 05:28:54 History of SARS-CoV-2 Active [address], [place], [address] , [facility]. 4 11:04:33 Benign prostatic hyperplasia with outflow obstruction Active [address], [place], [address] , [facility]. 4 10:07:46 CT of chest abnormal Active 2023 nodular infiltrate 04/25 - repeat in 3 months MD [address], [place], [address] , [facility] 4 20:40:16 Notes:*Problem Name: Chronic Dyspnea [...] Name and Address Organization Details Recorded Time 25070 lisinopri l medicatio n cough moderate Not available 07/12/20232011 79781 RxNorm dry cough Aller gyCod e: '3140 [...] oral route as needed. active RX by [facility] pulmonol ogy Not Available Not Available [...] Not Available Rituxan every 16 weeks at [facility]. Labs 1-2 weeks prior to infusion active [...] 152 mm[Hg] 98 mm[Hg] Emily Montano RN [facility] 4 13:12:06 Social History Question Answer Notes LastModified by Organizat ion Details LastModified Time Tobacco Smoking Status Never Smoker YAZAN Beaulieu, [facility] 11/19/2023 11:03:00 What Was The Date Of Your Most Recent Tobacco Screening? 11/19/2023 [email or web address] Information not available 11/19/2023 Has Tobacco Cessation Counseling Been Provided? No [email or web address] Information not available 11/19/2023 Do You Or Have You Ever Used Any Other Forms Of Tobacco Or Nicotine? No [email or web address] Information not available 11/19/2023 Sex: Male Functional [...] preservative free, adsorbed 06/14/2020 completed Not Available [facility] 07/12/2023 04:58:16 Tdap 05/08/2012 completed Not Available [facility] 04:58:16 Pneumococcal conjugate PCV 13 06/26/2016 completed Not Available [facility] 07/12/2023 04:58:17 Influenza, high-dose, trivalent, PF 06/04/2018 completed Not Available [facility] 07/12/2023 04:58:18 Influenza, split virus, trivalent, preservative 05/23/2016 completed Not Available [facility] 07/12/2023 04:58:18 Influenza, split virus, trivalent, preservative 05/26/2015 completed Not Available [facility] 07/12/2023 04:58:19 Influenza, high-dose, quadrivalent, PF 06/30/2020 completed Not Available [facility] 07/12/2023 04:58:20 Influenza, high-dose, quadrivalent, PF 06/30/2021 completed Not Available [facility] 07/12/2023 04:58:21 Influenza, high-dose, quadrivalent, PF 07/06/2022 completed Not Available [facility] 07/12/2023 04:58:21 COVID-19, mRNA, LNP-S, PF, 100 mcg/0.5mL dose or 50 mcg/0.25mL dose 11/07/2020 completed Not Available [facility] 07/12/2023 04:58:21 COVID-19, mRNA, LNP-S, PF, 100 mcg/0.5mL dose or 50 mcg/0.25mL dose 12/05/2020 completed Not Available [facility] 07/12/2023 04:58:22 COVID-19, mRNA, LNP-S, [...] pneumococcal polysaccharide PPV23 09/07/2014 completed Not Available [facility] 2022 04:58:23 influenza, unspecified formulation 05/20/2014 completed Not Available [facility] 07/12/2023 04:58:24 influenza, unspecified formulation 06/05/2017 completed Not Available [facility] 07/12/2023 04:58:24 influenza, unspecified formulation 07/02/2019 completed Not Available [facility] 07/12/2023 04:58:26 Influenza, high-dose, quadrivalent, PF 05/14/2023 completed Not Available [facility] 09/13/2023 05:31:41 COVID-19, mRNA, LNP-S, PF, jonathan-sucrose, 30 mcg/0.3 mL 08/21/2023 completed Perico Quiroz MA [facility] [place] [facility]. 08/21/2023 10:07:33 Past Encounters Encounter ID Performer Location Encounter Start Date Encounter Closed Date Diagnosis/Indication Diagnosis SNOMED-CT Code [id number] DOUGLAS MORIN [address] [address] 01/08/2024 07:49:22 01/08/2024 08:44:03 Pneumonia [id number] LEE MENESES MD [address] [address] 01/10/2024 12:49:03 01/10/2024 14:06:15 Hypercalcemia [id number] Pneumonia 587193978 Cardiomyopathy 69494210 Rheumatoid arthritis 698 85684 Disorder o f skin and/or subcutaneous tissue [id number] Health Concerns Section Related Observation LastModified by Organization Detai ls LastModified Time None Recorded Concern Status LastModified by Organization Details LastModified Time None Recorded Payers None recorded. Notes Date Note Type Note Provider Name and Address Organization Details Recorded Time 01/10/2024 text/html HPI Notes: Wesly here today for follow-up recurrent pneumonia, hypoxia, hypercalcemia LEE MENESES MD [address], [place], [address], [facility]. 01/12/2024 16:14:25
--- OUTSIDE RECORDS SUMMARY | 2024-04-07 03:21 | XMS_ITS | Encounter Summary ---
[place] [address] Care Team Providers Care Customer Care Consultant Name Role Phone Arelis Michele MD Primary Care Provider [phone] Encounter Details Date Type Department Care Team (Late st Contact Info) Description 11/06/2022 [place] [address] Bernie Ott MA Social History [...] 12:00 PM EDT [place] [address] documented as of this encounter Visit Diagnoses Not on filedocumented in this encounter Care Teams Customer Care Consultant Relationship Specialty Start Date End Date Arelis Michele MD [address] [place] [address] PCP - General Family Medicine 08/01/18 02/11/24 documented as of this encounter
--- OUTSIDE RECORDS SUMMARY | 2024-04-07 03:21 | XMS_ITS | Encounter Summary ---
[place] [address] Care Team Providers Care Entry Level Chemist Name Role Phone Arelis Michele MD Primary Care Provider [phone] Encounter Details Date Type Department Care Team (Late st Contact Info) Description 01/10/2023 Ancillary Procedure [place] [address] Arelis Michele MD [address] [place], [place] [address] Social History Tobacco Use Types Packs/Day Years [...] 12:00 PM EDT Appointment [place] [address] documented as of this encounter Procedures Procedure [...] Michele MD IMG FILM LIBRARY ORD ERABLES [place], [place] documented in this encounter Visit Diagnoses Not on filedocumented in this encounter Care Teams Entry Level Chemist Relationship Specialty Start Date End Date Arelis Michele MD [address] [place] [address] PCP - General Family Medicine 08/01/18 02/11/24 documented as of this encounter
--- OUTSIDE RECORDS SUMMARY | 2024-04-07 03:21 | XMS_ITS | Clinical Summary ---
Author Organization [facility] [place] [address] Care Team Providers Care Gin Pole Operator Name Role Phone Arelis Michele MD Primary Care Provider [phone] Allergies Active Allergy Reactions Criticality Noted Date [...] 01/18/2011 Overview (01/18/2011): ?? Osteopenia, DXA at [facility] in 06/2007. ?? Right wrist fracture [...] Team Description 01/06/2024 Orders [place] [address] Alice Carney APRN from Last [...] 12:00 PM EDT [place] [address] Health Maintenance Due Date Last Done Comments [...] * COLONOSCOPY (09/30/2019 9:26 AM EST) COLONOSCOPY [facility] Endoscopy Procedure Date: 09/30/2019 9:26 AM ? Patient Name: Wesly Lacey ? Date of : 1950 ? Age: 68 ? Order #: [id number] ? Instrument Name: [id number] ? Procedure: ? Colonoscopy Indications: ? High [...] Documents on File Type Date Recorded Patient Assembly Member Expl anation Personal Assembly Member 08/08/2018 4:20 PM abigail verito and [...] capacity to make decision: Yes Care Teams Gin Pole Operator Relationship Specialty Start Date End Date Arelis Michele MD [address] [place] [address] PCP - General Family Medicine 02/12/24
--- OUTSIDE RECORDS SUMMARY | 2024-04-07 03:21 | XMS_ITS | Encounter Summary ---
Author Organization [facility] [place] [address] Care Team Providers Care Proration Clerk Name Role Phone Arelis Michele MD Primary Care Provider [phone] Reason for Visit * Reason Comments Follow-up Encounter Details Date Type Department Care Team (Late st Contact Info) Description 05/28/2023 11:00 AM EDT Office [place] [address] Alice Craney, VIDEO AND SOUND RECORDER [facility] [place] [address] High risk medication use; Rheumatoid arthritis with [...] encounter Progress Notes * Angelika Alice E, VIDEO AND SOUND RECORDER - 05/28/2023 11:00 AM EDT Rheumatology Follow-up [...] Currently treated with name brand Rituxan via [employer] 2021 with benefit to joints. Treatment considerations: See 02/05/23 OV for extensive review. Cannot take NSAIDS per cardiology. CAD and CMP: [facility] Cardiology OV notes from 09/27/2020 (Wesly Munoz MD) reviewed 02/28/2021. CAD: s/p CABG (Patient Denies!) and s/p mid LAD stent March 2019. Additional workup with CPET planned at [facility] for eval of ongoing SOB. No ischemia [...] with cardiology. Vinayak-diaphragm, ZEPEDA, wheezing: Comprehensive work-up [facility] pulmonology (last OV 08/2020) with no clear diagnosis. Responds to nebulizer treatment with unknown medication. Interval History: Current treatment for RA: Rituxan (name brand) 1000 mg Q4M per [employer] medication assistance program started 02/13/2022. Last infusion: [...] No fluid overload. Followed by ophthalmology at [facility] for what he describes is a black spot behind his right eye. It is currently being watched and if it enlarges there is potential concern for melanoma. After Mr. Ybarra's 01/2023 OV I reached out to his metal washing machine operator (Qian Navarro MD, [facility])re Rituxan (documented in the visit [...] activity -- ongoing. Followed by cardiology at [facility]. Pulmonary: Denies hemoptysis, purulent sputum. + intermittent cough ongoing with no clear dx. . + SOB at rest at times with + ZEPEDA. Unremarkable work-up [facility] pulmonology. Nebulizer (med ?) helps. Sometimes uses [...] resection Osteoporosis with pathologic vertebral fracture per [facility] notes but not on file at [facility]. Physical Examination: BP 138/73 Pulse 67 Temp [...] Abs 0.01 0.00 - 0.04 x10(3)/mcL 09/26/22 [facility]: Unremarkable CBC and CMP. CRP 0.53 (ULN 0.3). ESR 4. [facility] 05/22/2022: Normal CMP and CBC. Mildly elevated CRP at 0.98 (ULN 0.3) with normal ESR at 2. [facility] 06/07/2021: unremarkable CBC, CMP, ESR, CRP. Negative Hepatitis B/C and TB Quant Gold screening. [facility] 03/2021: unremarkable CBC, CMP ASSESSMENT/RECOMMENDATIONS: Seropositive rheumatoid arthritis: Good control since initiation of Rituxan 01/2022 [facility] done at [facility]. He is tolerating infusions well without s/s fluid overload by his report. He would like to continue this treatment. Hold parameters again reviewed. He forgot to get his usual labs done at [facility] 2 weeks before his infusion and he will make a note to get this done next time. He knows to expect a letter from me re results and to contact me if he does not receive one. Osteoporosis with history of pathologic vertebral fracture: Followed by primary care. ZEPDEA: Unclear etiology after extensive work-up by pulmonology and cardiology. No evidence of fluid overload so from that perspective proceeding with infusion today should be fine. Plan: Continue Rituxan Q4M at [facility]. Labs at [facility] 2 weeks before. If he cannot accomplish [...] PM EDT Appointment [place] [address] documented as of this encounter Visit Diagnoses Diagnosis High risk medication use Encounter for long-term (current) use of other medications Rheumatoid arthritis with positive rheumatoid factor, involving unspecified site documented in this encounter Care Teams Proration Clerk Relationship Specialty Start Date End Date Arelis Michele MD [address] [place] [address] PCP - General Family Medicine 08/01/18 02/11/24 documented as of this encounter
--- OUTSIDE RECORDS SUMMARY | 2024-04-07 03:21 | XMS_ITS | Encounter Summary ---
Author Organization [facility] [place] [address] Care Team Providers Care Lens Gauger Name Role Phone Arelis Michele MD Primary Care Provider [phone] Reason for Visit * Treatment/Therapy Plan Authorization (Routine) - Closed Specialty Diagnoses / Procedures Referred By Azam corbett Referred To Contact Rheumatology Diagnoses Rheumatoid arthritis, involving unspecified site, unspecified whether rheumatoid factor present Procedures INFUSION THERAPY TC RITUXIMAB, 10MG INJECTION Alice Carney [facility] [address] Alice Carney [facility] [address] Referral ID Status Reason Start Date Expiration Date Visits Re quested Visits Authorized [id number] Closed 01/10/2023 01/10/2024 99 101 Encounter Details Date Type Department Care Team (Latest Contact Info) Description 02/05/2023 11:44 AM EDT - 02/05/2023 11:59 PM EDT Hospital En[place] [address] Rheumatoid arthritis, involving unspecified site, unspecified whether [...] Preparation/Maintenance site cleansed: 70% alcohol;dressing: transparent semipermeable /06/231214 Patency/Maintenance flushed without difficulty;alcohol impregnated cap applied;blood [...] 12:00 PM EDT [place] [address] documented as of this encounter [...] mg documented in this encounter Care Teams Lens Gauger Relationship Specialty Start Date End Date Arelis Michele MD [address] [place] [address] PCP - General Family Medicine 08/01/18 02/11/24 documented as of this encounter
--- OUTSIDE RECORDS SUMMARY | 2024-04-07 03:21 | XMS_ITS | Encounter Summary ---
[place] [address] Care Team Providers Care Mutuel Clerk Name Role Phone Arelis Michele MD Primary Care Provider [phone] Encounter Details Date Type Department Care Team [...] 12:00 PM EDT [place] [address] documented as of this encounter Visit Diagnoses Not on filedocumented in this encounter Care Teams Mutuel Clerk Relationship Specialty Start Date End Date Arelis Michele MD [address] [place] [address] PCP - General Family Medicine 08/01/18 02/11/24 documented as of this encounter
--- OUTSIDE RECORDS SUMMARY | 2024-04-07 03:21 | XMS_ITS | Encounter Summary ---
Author Organization [facility] [place] [address] Care Team Providers Care Muck Miner Name Role Phone Arelis Michele MD Primary Care Provider [phone] Reason for Visit * Treatment/Therapy Plan Authorization (Routine) - Closed Specialty Diagnoses / Procedures Referred By Azam corbett Referred To Contact Rheumatology Diagnoses Rheumatoid arthritis, involving unspecified site, unspecified whether rheumatoid factor present Procedures INFUSION THERAPY TC RITUXIMAB, 10MG INJECTION Alice Carney [facility] [place] [address] Alice Carney [facility] [place] [address] Referral ID Status Reason Start Date Expiration Date Visits Re quested Visits Authorized [id number] Closed 01/10/2023 01/10/2024 99 101 Encounter Details Date Type Department Care Team (Latest Contact Info) Description 09/17/2023 10:58 AM EST - 09/17/2023 11:59 PM EST Hospital Encounter [place] [address] Rheumatoid arthritis, involving unspecified site, unspecified whether [...] Take 10 mg by mouth daily. 05/16/2023 zoeytdqs-qfkgenbiy-cigzw ethasone (MAXITROL) 3.5mg/mL-10,000 unit/mL-0.1 % Drops, Suspension [...] 12:00 PM EDT Appointment [place] [address] documented as of this encounter Visit Diagnoses [...] mg documented in this encounter Care Teams Muck Miner Relationship Specialty Start Date End Date Arelis Michele MD [address] [place] [address] PCP - General Family Medicine 08/01/18 02/11/24 documented as of this encounter
--- OUTSIDE RECORDS SUMMARY | 2024-04-07 03:21 | XMS_ITS | Encounter Summary ---
[place] [address] Care Team Providers Care E Business Specialist Name Role Phone Arelis Michele MD Primary Care Provider [phone] Encounter Details Date Type Department Care Team [...] 12:00 PM EDT Appoint[place] [address] documented as of this encounter Visit Diagnoses Not on filedocumented in this encounter Care Teams E Business Specialist Relationship Specialty Start Date End Date Arelis Michele MD [address] [place] [address] PCP - General Family Medicine 08/01/18 02/11/24 documented as of this encounter
--- OUTSIDE RECORDS SUMMARY | 2024-04-07 03:21 | XMS_ITS | Encounter Summary ---
[place] [address] Care Team Providers Care Independent Driver Name Role Phone Arelis Michele MD Primary Care Provider [phone] Encounter Details Date Type Department Care Team [...] 12:00 PM EDT Appointment [place] [address] documented as of this encounter Visit Diagnoses Not on filedocumented in this encounter Care Teams Independent Driver Relationship Specialty Start Date End Date Arelis Michele MD [address] [place] [address] PCP - General Family Medicine 08/01/18 02/11/24 documented as of this encounter
--- OUTSIDE RECORDS SUMMARY | 2024-04-07 03:21 | XMS_ITS | Encounter Summary ---
[place] [address] Care Team Providers Care Distribution Field Technician Name Role Phone Arelis Michele MD Primary Care Provider [phone] Encounter Details Date Type Department Care Team [...] 12:00 PM EDT [place] [address] documented as of this encounter Visit Diagnoses Not on filedocumented in this encounter Care Teams Distribution Field Technician Relationship Specialty Start Date End Date Arelis Michele MD [address] [place] [address] PCP - General Family Medicine 08/01/18 02/11/24 documented as of this encounter
--- OUTSIDE RECORDS SUMMARY | 2024-04-07 03:22 | XMS_ITS | Encounter Summary ---
Author Organization [facility] [place] [address] Care Team Providers Care Copper Plate Printer Name Role Phone Arelis Michele MD Primary Care Provider [phone] Encounter Details Date Type Department Care Team (Late st Contact Info) Description 08/29/2020 2:00 PM EST Office [place] [address] Steven Soliz MD [facility] [place] [address] SOB (shortness of breath); Cough variant asthma [...] for sputum to be dropped off at [facility] for bacterial/AFB cultures.Is spirometry and cross-sectional [...] He tells me he saw Cardiology at [facility] thisspring and may have had a [...] Other drugs: denies The patient lives in [facility] 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 Labs: 05/25/20 Sputum AFB ([facility]): Negative stain/culture 05/25/20 Sputum culture ([facility]): MSSA PFTS: DATE FVC FEV1 FEV1/FVC DLCO TLC RV GRIPPER INSTALLER? 06/16/13 70% 73% 77% 91% -- -- [...] mainstem bronchi without radiographically significant airway collapse Flight Reservations Manager view showing relatively similar appearance of elevated [...] Section of Pulmonary & Critical Care Pager: [phone] documented in this encounter Plan of Treatment Upcoming Encounters Date Type Department Care Team (Late st Contact Info) Description 04/28/2024 12:00 PM EDT [place]ointment [place] [address] documented as of this encounter Visit Diagnoses Diagnosis SOB (shortness of breath) Shortness of breath Cough variant asthma Cough variant asthma documented in this encounter Care Teams Copper Plate Printer Relationship Specialty Start Date End Date Arelis Michele MD [address] [place] [address] PCP - General Family Medicine 08/01/18 02/11/24 documented as of this encounter
--- OUTSIDE RECORDS SUMMARY | 2024-04-07 03:22 | XMS_ITS | Encounter Summary ---
Author Organization [facility] [place] [address] Care Team Providers Care Electric Meter Reader Name Role Phone Arelis Michele MD Primary Care Provider [phone] Encounter Details Date Type Department Care Team (Latest Contact Info) Description 05/26/2021 11:00 AM EDT TH Visit (TeleHealth) [place] [address] Alice Carney, SCRIP CLERK [facility] [place] [address] Rheumatoid arthritis with positive rheumatoid factor, involving unspecified site; Hypercholesterolemia; High risk medication use; Cardiomyopathy, unspecified type; Coronary artery disease, unspecified vessel or lesion type, unspecified whether angina present, unspecified whether kivalina or transplanted heart; Osteoporosis, unspecified osteoporosis type, [...] information. I will reach out to your brick and tile making machine operator re treatment options to see if they have a preference re the options available. You will need to get lab tests done in mid-June. I sent the orders to [facility] (they are listed on this After Visit Summary). I ordered a DEXA (bone density test) at your last visit to be done at [facility]. You should call radiology to schedule this [...] visit was conducted via telephone due to [employer] restrictions. I advised Leeanne Agee thatthis telephone [...] spoke with ASHLEY Wise, in [facility] infusion lab this morning -- last infusion was in 2018 for name brand Rituximab. ?? Orencia tried [id number] and stopped due to lack of efficacy [...] take NSAID per cardiology CAD and CMP: [facility] Cardiology OV notes from 09/27/2020 (Leeanne Munoz MD) reviewed 02/28/2021. ?? CAD: s/p CABG (Patient Denies!) and s/p mid LAD stent March 2019. Additional workup with CPET planned at [facility] for eval of ongoing SOB (Patient says [...] for all medications. Labs and infusions at [facility]. Interval History: Current treatment for RA: Ruxience 1000 mg IV Q16W started [facility] 03/21/2021 (next scheduled for 07/13/2021) Symptoms without treatment: hands with AM curling/clenching and tightness for several hours. He responded well to Ruxience treatment. Fingers joints feel better in the AM -- 70-75% better. They are not clenched up which was a primary issue prior to treatment. He tolerated treatment well. No issues with fluid overload. Note that on 03/21/2021 [facility] Rheumatology nurse confirmed with ASHLEY Wise, that [facility] infusion labthat per their protocol, [...] with pathologic vertebral fracture per [facility] notes but not on file at [facility]. Physical Examination: Not done (telephone visit) Patient [...] Knees: Crepitus and FROM bl DATA: Labs: [facility] 03/2021 unremarkable CBC, CMP Results for LEEANNE [...] and isosorbide. I reached out to his brick and tile making machine operator via internal staff message re issues with a vailable options. Patient will need to recheck lipid panel, TB Quant Gold, Hepatitis screen, CBC, CMP prior to initiation. Osteoporosis with history of pathologic vertebral fracture: DEXA ordered at 02/28/2021 office visit to be done at [facility]. Continue with vit d supplementation, avoiding calcium supplementation due to kidney stones. Continue with weightbearing activity as tolerated. Follow up telephone visit scheduled for Saturday08/18/2021 at 11AM. Minutes spent today associated with the office visit including during the visit, chart review, and documentation: 60 Orders routed to [facility]: Orders Placed This Encounter Procedures ??? CBC [...] PM EDT [place] [address] documented as of this encounter Visit Diagnoses Diagnosis Rheumatoid arthritis with positive rheumatoid factor, involving unspecified site Hypercholesterolemia Pure hypercholesterolemia High risk medication use Encounter for long-term (current) use of other medications Cardiomyopathy, unspecified type Coronary artery disease, unspecified vessel or lesion type, unspecified whether angina present, unspecified whether [place] or transplanted heart Osteoporosis, unspecified osteoporosis type, unspecified pathological fracture presence documented in this encounter Care Teams Electric Meter Reader Relationship Specialty Start Date End Date Arelis Michele MD [address] [place] [address] PCP - General Family Medicine 08/01/18 02/11/24 documented as of this encounter
--- OUTSIDE RECORDS SUMMARY | 2024-04-07 03:22 | XMS_ITS | Encounter Summary ---
Author Organization [facility] [place] [address] Care Team Providers Care Full Roll Inspector Name Role Phone Arelis Michele MD Primary Care Provider [phone] Encounter Details Date Type Department Care Team (Late st Contact Info) Description 06/25/2021 Notes [place] [address] Alice Carney APRN [facility] [place] [address] Social History Tobacco Use Types Packs/Day Years [...] 12:00 PM EDT [place] [address] documented as of this encounter Visit Diagnoses Not on filedocumented in this encounter Care Teams Full Roll Inspector Relationship Specialty Start Date End Date Arelis Michele MD [address] [place] [address] PCP - General Family Medicine 08/01/18 02/11/24 documented as of this encounter
--- OUTSIDE RECORDS SUMMARY | 2024-04-07 03:22 | XMS_ITS | Encounter Summary ---
[place] [address] Care Team Providers Care Licensed Audiologist Name Role Phone Arelis Michele MD Primary Care Provider [phone] Encounter Details Date Type Department Care Team (Late st Contact Info) Description 06/04/2022 [place] [address] Bernie Ott MA Social History [...] 12:00 PM EDT [place] [address] documented as of this encounter Visit Diagnoses Not on filedocumented in this encounter Care Teams Licensed Audiologist Relationship Specialty Start Date End Date Arelis Michele MD [address] [place] [address] PCP - General Family Medicine 08/01/18 02/11/24 documented as of this encounter
--- OUTSIDE RECORDS SUMMARY | 2024-04-07 03:22 | XMS_ITS | Encounter Summary ---
Author Organization [facility] [place] [address] Care Team Providers Care Mountain Or Glacier Guide Name Role Phone Arelis Michele MD Primary Care Provider [phone] Encounter Details Date Type Department Care Team (Late Contact Info) Description 05/11/2020 Telephone [place] [address] Guera Holloway LNA Social History [...] 12:00 PM EDT [place]ointment [place] [address] documented as of this encounter Visit Diagnoses Not on filedocumented in this encounter Care Teams Mountain Or Glacier Guide Relationship Specialty Start Date End Date Arelis Michele MD [address] [place] [address] PCP - General Family Medicine 08/01/18 02/11/24 documented as of this encounter
--- OUTSIDE RECORDS SUMMARY | 2024-04-07 03:22 | XMS_ITS | Encounter Summary ---
Author Organization [facility] [place] [address] Care Team Providers Care Experimental Display Builder Name Role Phone Arelis Michele MD Primary Care Provider [phone] Encounter Details Date Type Department Care Team (Late st Contact Info) Description 05/29/2021 [place] [address] Alice Carney APRN [facility] [place] [address] Social History Tobacco Use Types Packs/Day Years [...] 12:00 PM EDT [place] [address] documented as of this encounter Visit Diagnoses Not on filedocumented in this encounter Care Teams Experimental Display Builder Relationship Specialty Start Date End Date Arelis Michele MD [address] [place], [place] [address] PCP - General Family Medicine 08/01/18 02/11/24 documented as of this encounter
--- OUTSIDE RECORDS SUMMARY | 2024-04-07 03:22 | XMS_ITS | Encounter Summary ---
[place] [address] Care Team Providers Care Sanitation Truck Cleaner Name Role Phone Arelis Michele MD Primary Care Provider [phone] Encounter Details Date Type Department Care Team (Late st Contact Info) Description 06/01/2021 [place]phone [place] [id number] Mariela Ritter, [facility] Social History Tobacco Use Types Packs/Day [...] Notes * Telephone Encounter - Mariela Ritter [facility] - 06/01/2021 2:27 PM EDT will fill Xeljanz when needed (rinvoq was changed/incorrectly typed below) * Telephone Encounter - Mariela Ritter [facility] - 06/01/2021 2:16 PM EDT I spoke with Wesly in regards to Rinvoq. Rinvoq increases his risk for cardiovascular issues (stroke/heart attack). Which he is aware of. Per Alice Madrid, shoe ironer is aware that patient does not have [...] going to get his labs done at [facility] tomorrow. Labs were sent there on 05/26. We will follow up with [facility] to get labs sent to [facility] Rheum. He is aware that he cannot start Rinvoq until on or after 07/13/21. We will hold off sending Rinvoqto patient until then. documented in this encounter Plan of Treatment Upcoming Encounters Date Type Department Care Team (Late st Contact Info) Description 04/28/2024 12:00 PM EDT Appointment [place] [address] documented as of this encounter Visit Diagnoses Not on filedocumented in this encounter Care Teams Sanitation Truck Cleaner Relationship Specialty Start Date End Date Arelis Michele MD [address] [place] [address] PCP - General Family Medicine 08/01/18 02/11/24 documented as of this encounter
--- OUTSIDE RECORDS SUMMARY | 2024-04-07 03:22 | XMS_ITS | Encounter Summary ---
Author Organization [facility] [place] [address] Care Team Providers Care Instructor Watch Assembly Name Role Phone Arelis Michele MD Primary Care Provider [phone] Encounter Details Date Type Department Care Team (Latest Contact Info) Description 08/18/2021 11:00 AM EST TH Visit (TeleHealth) [place] [address] Alice Carney APRN [facility] [place] [address] Rheumatoid arthritis with positive rheumatoid factor, involving [...] pharmacy and was advised that you did crab picker the antibiotic prescribed by pulmonology last winter [...] discuss your concerns about Xeljanz with your dental laboratory manager as I suspect you will need toreconsider taking it after a trial of methotrexate. Follow up telephone visit 10/19/2021 at 9AM. documented in this encounter Progress Notes * Alice Carney APRN - 08/18/2021 11:00 AM EST Rheumatology Follow-up Visit TELEPHONE VISIT This visit was conducted via telephone due to COVIDEpiEP restrictions. I advised Leeanne Rutherford Cyndie thatthis [...] overload. I spoke with ASHLEY Wise, in [facility] infusion lab this morning -- last infusion [...] 1000 mg IV Q16W infusion resumed at [facility] -- next infusion cancelled due to unaffordable [id number]-[id number] cost. ?? Plan was to start Xeljanz 07/2021 given limited options available to patient for treatment givenmedical history and co-morbidities after communication via [facility] with Leeanne Munoz MD, in cardiology. Treatment considerations: 02/14/2021 Denied hx blood clots. + Hx diverticulitis with 18 bowel resected. + CMP. SOB/ZEPEDA -- multifactorial as noted elsewhere. He has not tried Humira or Remicade (concern for CHF), Actemra (contraindicated), JAKs. Cannot take NSAID per cardiology CAD and CMP: [facility] Cardiology OV notes from 09/27/2020 (Leeanne Munoz MD) reviewed 02/28/2021. ?? CAD: s/p CABG (Patient Denies!) and s/p mid LAD stent March 2019. Additional workup with CPET planned [place] [facility] [place] eval of ongoing SOB (Patient says [...] nobody can figure out. Last [facility] pulmonology evaluation 08/2020 at [facility] with notes reviewed: Leeanne Agee??is a 67 [...] overload. Note that on 03/21/2021 [facility] Rheumatology nurse confirmed with ASHLEY Wise, that [facility] infusion labthat per their protocol, and in [...] resection Osteoporosis with pathologic vertebral fracture per [facility] notes but not on file at [facility]. Physical Examination: Not done (telephone visit) Patient [...] Knees: Crepitus and FROM bl DATA: Labs: [facility] 03/2021 unremarkable CBC, CMP Results for LEEANNE [...] could not continue with RTX due to [id number] cost. Options for treatment are limited due [...] isosorbide). Note that I communicated with his dental laboratory manager (Dr. Munoz) via internal staffmessage in the [...] I discussed this case briefly with his geriatric personal care aide (though he did not review prior notes [...] 02/28/2021 office visit to be done at [facility] and not yet done. Continue with vit d supplementation, avoiding calcium supplementation due to kidney stones. Continue with weightbearing activity as tolerated. Follow up telephone visit scheduled for 10/19/2020 at 11AM. Patient Instructions I called your pharmacy and was advised that you did crab picker the antibiotic prescribed by pulmonology last winter [...] discuss your concerns about Xeljanz with your dental laboratory manager as I suspect you will need toreconsider [...] EDT Appointment [place] [address] documented as of this encounter Visit Diagnoses Diagnosis Rheumatoid arthritis with positive rheumatoid factor, involving unspecified site High risk medication use Encounter for long-term (current) use of other medications documented in this encounter Care Teams Instructor Watch Assembly Relationship Specialty Start Date End Date Arelis Michele MD [address] [place] [address] PCP - General Family Medicine 08/01/18 02/11/24 documented as of this encounter
--- OUTSIDE RECORDS SUMMARY | 2024-04-07 03:22 | XMS_ITS | Encounter Summary ---
[place] [address] Care Team Providers Care Children'S Program Coordinator Name Role Phone Arelis Michele MD Primary Care Provider [phone] Encounter Details Date Type Department Care Team (Late st Contact Info) Description 07/12/2022 Telephone [place] [id number] Stefany Rosales Social History Tobacco Use Types [...] 12:00 PM EDT Appointment [place] [address] documented as of this encounter Visit Diagnoses Not on filedocumented in this encounter Care Teams Children'S Program Coordinator Relationship Specialty Start Date End Date Arelis Michele MD [address] [place] [address] PCP - General Family Medicine 08/01/18 02/11/24 documented as of this encounter
--- OUTSIDE RECORDS SUMMARY | 2024-04-07 03:22 | XMS_ITS | Encounter Summary ---
Author Organization [facility] Dem[facility]ri [facility] [place] [address] Care Team Providers Care Fibre Optics Jointer Name Role Phone Arelis Michele MD Primary Care Provider [phone] Reason for Visit * Reason Comments Follow-up Encounter Details Date Type Department Care Team (Late st Contact Info) Description 10/17/2021 9:00 AM EST Office [place] [address] Alice Carney ONLINE RETAILER [facility] [place] [address] Rheumatoid arthritis with positive rheumatoid factor, involving [...] x 3 then every 3 months (at [facility]). CBC = complete blood count (red and [...] overload. I spoke with ASHLEY Wise, in [facility] infusion lab this morning -- last infusion was in 2017 for name brand Rituximab. ?? Orencia tried [id number] and stopped due to lack of efficacy [...] 1000 mg IV Q16W infusion resumed at [facility] -- next infusion cancelled due to unaffordable zkq-of-gzhoyr cost. ?? Plan was to start Xeljanz [...] take NSAID per cardiology CAD and CMP: [facility] Cardiology OV notes from 09/27/2020 (Wesly Munoz MD) reviewed 02/28/2021. ?? CAD: s/p CABG (Patient Denies!) and s/p mid LAD stent March 2019. Additional workup with CPET planned [place] [facility] [place] of ongoing SOB (Patient says [...] is recovered well. 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 Note that on 03/21/2021 [facility] Rheumatology nurse confirmed with ASHLEY Wise, that [...] resection Osteoporosis with pathologic vertebral fracture per [facility] notes but not on file at [facility]. Physical Examination: Patient Vitals for the past [...] empty can on the L DATA: Labs: [facility] 06/07/2021: unremarkable CBC, CMP, ESR, CRP. Negative Hepatitis B/C and TB Quant Gold screening. [facility] 03/2021: unremarkable CBC, CMP ASSESSMENT/RECOMMENDATIONS: Seropositive rheumatoid arthritis: Currently symptomatic without treatment after marked improvementwith resumption of Rituxan (received Ruxience) 03/2021. He could not continue with RTX due to bdt-hm-[id number] cost. Options for treatment are limited due [...] SE/AE/dosing/length of time to onset/monitoring) and pursue [employer] patient assistance for Rituxan in the meantime. Osteoporosis with history of pathologic vertebral fracture: DEXA ordered at 02/28/2021 office visit to be done at [facility] and not yet done. Continue with [...] x 3 then every 3 months (at [facility]). CBC = complete blood count (red and [...] 12:00 PM EDT [place] [address] documented as of this encounter Visit Diagnoses Diagnosis Rheumatoid arthritis with positive rheumatoid factor, involving unspecified site High risk medication use Encounter for long-term (current) use of other medications documented in this encounter Care Teams Fibre Optics Jointer Relationship Specialty Start Date End Date Arelis Michele MD [address] [place] [address] PCP - General Family Medicine 08/01/18 02/11/24 documented as of this encounter
--- OUTSIDE RECORDS SUMMARY | 2024-04-07 03:22 | XMS_ITS | Encounter Summary ---
Author Organization [facility] [place] [address] Care Team Providers Care Director Of Quantitative Research Name Role Phone Arelis Michele MD Primary Care Provider [phone] Encounter Details Date Type Department Care Team (Late st Contact Info) Description 12/15/2020 3:00 PM EDT Office Visit [place] [address] Dianne Norton, PRODUCT LINE MANAGER [facility] [place] [address] [place] [address] High risk medication use; Rheumatoid arthritis with [...] 12/15/2020 3:00 PM EDT Rheumatology Clinic Wesly Ybarra is a 70 y.o.male seen [...] up, in the morning they are curled [facility] blood work with Dr. Michele [...] labs one month after starting ssz at [facility] Check CMP, CBC, CRP, ESR today jail steroid use Continue with vit d supplementation, avoiding ca supplementation d/t kidney stones Continue with weightbearing activity RTC 3 months with Alice, 60min documented in this encounter Plan of Treatment Upcoming Encounters Date Type Department Care Team (Late st Contact Info) Description 04/28/2024 12:00 PM EDT Appointment [place] [address] documented as of this encounter Procedures Procedure [...] 4:04 PM EDT) Neutrophil % 56.4 % [facility] Neutrophil Absolute 5.07 1.70 - 6.10 x10(3)/mc L [facility] Lymph % 30.2 % [facility] Lymphocytes Abs 2.7 0.9 - 3.2 x10(3)/mc L [facility] Monocyte % 6.7 % [facility] Monocyte Abs 0.6 0.3 - 0.9 x10(3)/[facility] Eos % 6.0 % [facility] Eosinophils Abs 0.5(H) 0.0 - 0.4 x10(3)/[facility] Basophil % 0.6 % [facility] Baso Absolute 0.0 0.0 - 0.1 x10(3)/[facility] Immature Gran % 0.10 % [facility] Comment: Immature granulocytes(IG's)percentage and absolute count will include metamyelocytes, myelocytes, and promyelocytes. Blood smears from CBCs yielding IG's will be scanned manually for concordance. If this scan disagrees with the automated IG or if promyelocytes are noted, a manual differential will be performed. Immature Gran Absolute 0.01 0.00 - 0.04 x10(3)/[facility] Blood specimen (specimen) 12/15/2020 4:04 PM EDT 12/15/2020 4:09 PM EDT Narrative Resulting Agency Comment Spec In Lab Dianne Norton PRODUCT LINE MANAGER HEMATOLOGY ORDERABLE S Performing Organization Address City/State/[facility] Co de Phone Number [facility] [place] [address] * (ABNORMAL) Hemogram (12/15/2020 4:04 PM EDT) White Blood Cell 9.0 4.0 - 9.5 x10(3)/[facility] Red Blood Cell 5.63(H) 4.58 - 5.54 x10(6)/[facility] Hemoglobin 16.9(H) 13.7 - 16.5 gm/dL [facility] Hematocrit 51.2(H) 40.5 - 48.5 % [facility] Mean Cell Volume 90.9 82.9 - 93.1 fL [facility] Mean Cell Hemoglobin 30.0 27.5 - 32.1 pg [facility] Mean Cell Hemoglobin Concentration 33.0 32.0 - 35.7 gm/dL [facility] Platelet 237 145 - 357 x10(3)/mc L [facility] RDW Standard Deviation 44.3 36.0 - 45.0 fL [facility] RDW coefficient of variation 13.2 11.4 - 13.8 % [facility] Mean Platelet Volume 9.7 7.6 - 12.9 fL [facility] NRBC% auto 0.0 % [facility] NRBC Absolute 0.000 0.000 - 0.000 x10(3)/mc L [facility] Blood specimen (specimen) 12/15/2020 4:04 PM EDT 12/15/2020 4:09 PM EDT Narrative Resulting Agency Comment Spec In Lab Dianne Norton APRN HEMATOLOGY ORDERABLE S Performing Organization Address City/[facility]/ZIP Co de Phone Number [facility] [place] [address] * Sedimentation rate (12/15/2020 4:04 PM EDT) Sedimentation Rate Automated 5 3 - 46 mm/hr [facility] Comment: Effective August 12, 2019 new capillary photometric technology has resulted in a change in reference ranges. It is recommended that each ESR result be reviewed with its own age appropriate reference range. Blood specimen (specimen) 12/15/2020 4:04 PM EDT 12/15/2020 4:09 PM EDT Narrative Resulting Agency Comment Spec In Lab Dianne Norton PRODUCT LINE MANAGER HEMATOLOGY ORDERABLE S [facility] [place] [address] * CRP, acute inflammation (12/15/2020 4:04 PM EDT) C-Reactive Protein 3.4 <=4.9 mg/L [facility] Blood specimen (specimen) 12/15/2020 4:04 PM EDT 12/15/2020 4:09 PM EDT Narrative Resulting Agency Comment Spec In Lab Dianne Norton PRODUCT LINE MANAGER CHEMISTRY ORDERABLES [facility] [place] [address] * Comprehensive metabolic panel (non-fasting) (12/15/2020 4:04 PM EDT) Glucose 100 65 - 199 mg/dL [facility] Comment:Diabetes: >=200 mg/d L plus symptoms Blood Urea Nitrogen 12 10 - 20 mg/dL [facility] Creatinine 0.92 0.80 - 1.50 mg/dL [facility] Sodium 142 135 - 145 mmol/L [facility] Potassium 4.0 3.5 - 5.0 mmol/L [facility] Comment: Please note: ??Patients with WBC >100,000 may have falsely elevated Potassium levels. ??For accurate Potassium quantification in these patients send serum separator tube (gold top) for subsequent determinations. ??Contact the Clinical Chemistry Laboratory if there are any questions. Chloride 105 98 - 107 mmol/L [facility] Carbon Dioxide 28 22 - 31 mmol/L [facility] Anion Gap 9 5 - 15 mmol/L [facility] Calcium 9.5 8.5 - 10.5 mg/dL [facility] Protein, Total 6.7 6.1 - 8.0 gm/dL [facility] Albumin 4.2 3.2 - 5.2 gm/dL [facility] Aspartate Aminotransferase 24 0 - 39 unit/L [facility] Alanine Aminotransferase 19 0 - 55 unit/L [facility] Alkaline Phosphatase 124 40 - 130 unit/L [facility] Bilirubin, Total 0.4 0.2 - 1.3 mg/dL [facility] Est Glomerular Filtration Rate 83 >=60 mL/min/1. 73 m?? [facility] Comment: This patient? s estimated glomerular [...] In Lab Dianne Norton APRN CHEMISTRY ORDERABLES [facility] [place] [address] documented in this encounter Visit Diagnoses Diagnosis High risk medication use Encounter for long-term (current) use of other medications Rheumatoid arthritis with positive rheumatoid factor, involving unspecified site documented in this encounter Care Teams Director Of Quantitative Research Relationship Specialty Start Date End Date Arelis Michele MD [address] [place] [address] PCP - General Family Medicine 08/01/18 02/11/24 documented as of this encounter
--- OUTSIDE RECORDS SUMMARY | 2024-04-07 03:22 | XMS_ITS | Encounter Summary ---
[place] [address] Care Team Providers Care Office Technology Professor Name Role Phone Arelis Michele MD Primary Care Provider [phone] Reason for Visit * Reason Comments Medication Management Encounter Details Date Type Department Care Team (Late st Contact Info) Description 08/23/2021 Specialty [place] [phone] Mariela Ritter, [facility] Social History Tobacco Use Types Packs/Day [...] this encounter Progress Notes * Mariela Ritter [facility] - 08/23/2021 7:37 AM EST Clinical Management Plan: Transfer of Care/Discharge Specialty Services Specialty Pharmacy Consultation; Mariela Ritter [facility] Comprehensive Medication Management (CMM) Wesly Ybarra [address] [facility] [address] Telephone Information: Work Phone Not on file. [...] were made at the appointment and that [facility] isproviding recommendations (summary located at top of note) for provider review and follow up. Mariela Ritter RPH 08/23/21 7:38 AM documented in this encounter Plan of Treatment Upcoming Encounters Date Type Department Care Team (Late st Contact Info) Description 04/28/2024 12:00 PM EDT [place] [address] documented as of this encounter Visit Diagnoses Not on filedocumented in this encounter Care Teams Office Technology Professor Relationship Specialty Start Date End Date Arelis Michele MD [address] [place] [address] PCP - General Family Medicine 08/01/18 02/11/24 documented as of this encounter
--- OUTSIDE RECORDS SUMMARY | 2024-04-07 03:22 | XMS_ITS | Encounter Summary ---
[place] [address] Care Team Providers Care Spray I Painter Name Role Phone Arelis Michele MD Primary Care Provider [phone] Reason for Visit * Reason Comments Medication Management Patient Education Encounter Details Date Type Department Care Team (Late st Contact Info) Description 07/07/2021 Specialty [place] [address] Mariela Ritter, [facility] Social History Tobacco Use Types Packs/Day Years [...] this encounter Progress Notes * Mariela Ritter [facility] - 07/07/2021 10:52 AM EDT Specialty Pharmacy [...] Requirements: no Medication Reconciliation Discrepancies (compared to [facility] med list) -none Medication List: Current [...] specialty services: Yes Patient accepted offer to clinical counselor: select all, adherence/missed doses, cost of [...] to doctor discussed, reminder to refill or hand picker medication discussed, self-monitoring discussed, start medication [...] Social Assessment: Does patient have a primary hearing healthcare practitioner: No Does patient have an emergency contact on file: Yes Does patient need referral to manager social responsibility: No Does patient need referral to advocacy [...] 12:00 PM EDT [place] [address] documented as of this encounter Visit Diagnoses Not on filedocumented in this encounter Care Teams Spray I Painter Relationship Specialty Start Date End Date Arelis Michele MD [address] [place] [address] PCP - General Family Medicine 08/01/18 02/11/24 documented as of this encounter
--- OUTSIDE RECORDS SUMMARY | 2024-04-07 03:22 | XMS_ITS | Encounter Summary ---
[place] [address] Care Team Providers Care Vaccine Manager Name Role Phone Arelis Michele MD Primary Care Provider [phone] Reason for Visit * Reason Comments Medication Refill Medication Management Encounter Details Date Type Department Care Team (Late st Contact Info) Description 08/07/2021 Specialty [place] [address] Sami Shore [facility] Social History Tobacco Use Types [...] this encounter Progress Notes * Sami Shore [facility] - 08/07/2021 2:45 PM EST Specialty Pharmacy Consultation; Sami Shore [facility] Comprehensive Medication Management (CMM) Wesly Rutherford Cyndie [...] generally related to heart rhythm/heart rate. His pathology secretary/transcriptionist is aware that he is taking Xeljanz. [...] Requirements: no Medication Reconciliation Discrepancies (compared to [facility] med list) yes - no longer taking [...] specialty services: Yes Patient accepted offer to marriage counselor: select all, adherence/missed doses, cost of [...] to doctor discussed, reminder to refill or tack picker medication discussed, self-monitoring discussed, start medication [...] Social Assessment: Does patient have a primary assurance services manager health care: No Does patient have an emergency contact on file: Yes Does patient need referral to secondary social studies teacher: No Does patient need referral to advocacy [...] were made at the appointment and that [facility] isproviding recommendations (summary located at top of note) for provider review and follow up. Sami Shore RPH 08/07/21 2:59 PM documented in this encounter Plan of Treatment Upcoming Encounters Date Type Department Care Team (Late st Contact Info) Description 04/28/2024 12:00 PM EDT [place] [address] documented as of this encounter Visit Diagnoses Not on filedocumented in this encounter Care Teams Vaccine Manager Relationship Specialty Start Date End Date Arelis Michele MD [address] [place] [address] PCP - General Family Medicine 08/01/18 02/11/24 documented as of this encounter
--- OUTSIDE RECORDS SUMMARY | 2024-04-07 03:22 | XMS_ITS | Encounter Summary ---
Author Organization Formerly [facility] [place] [address] Care Team Providers Care Fixed Wing Aircraft Flight Engineer Name Role Phone Arelis Michele MD Primary Care Provider [phone] Encounter Details Date Type Department Care Team (Late st Contact Info) Description 06/05/2022 9:00 AM EDT Office [place] [address] Alice Carney APRN [facility] [place] [address] Sinus congestion; High risk medication use Social [...] of your sinuses -- order sent to [facility] so please call to schedule. Schedule a [...] resumption of Rituxan (received Ruxience) 03/2021 at [facility]. He could not continue with RTX due to vkl-jb-zolngr cost then was able to resume name brand Rituxan via [employer] 2021 with benefit to joints. ?? Orencia tried [id number] and stopped due to lack of efficacy [...] 1000 mg IV Q16W infusion resumed at [facility] -- next infusion cancelled due to unaffordable qco-zh-bmlqml cost. ?? Plan was to start Xeljanz 07/2021 given limited options available to patient for treatment givenmedical history and co-morbidities after communication via ED with Wesly Munoz MD, in cardiology. He never started it due to concerns about black box warnings. ?? Started leflunomide 10 mg daily 10/2021 while investigating [employer] Rituxan medication assistance program. No improvement with [...] take NSAIDS per cardiology. CAD and CMP: [facility] Cardiology OV notes from 09/27/2020 (Wesly Munoz MD) reviewed 02/28/2021. ?? CAD: s/p CABG (Patient Denies!) and s/p mid LAD stent March 2019. Additional workup with CPET planned at [facility] for eval of ongoing SOB (Patient says [...] for RA: Rituxan 1000 mg Q4M per [employer] medication assistance program started 02/13/2022. Rituxan infusion [...] Denies weeping or drainage. Per 12/2021 OV: [employer] Rituxan medication assistance program was recently approved [...] persistent dyspnea which is ongoing and his personnel worker at [facility] ordered a repeat stress test [...] is recovered well. He met his new personnel worker at [facility] 09/2021 and he is pleased with [...] I discussed this case briefly with his vice president of talent management (though he did not review prior notes [...] with fluid overload. Note that on 03/21/2021 [facility] Rheumatology nurse confirmed with ASHLEY Wise, that [facility] infusion labthat per their protocol, [...] activity -- ongoing. Followed by cardiology at [facility]. Pulmonary: Denies hemoptysis. + SOB at [...] resection Osteoporosis with pathologic vertebral fracture per [facility] notes but not on file at [facility]. Physical Examination: Not done (telephone visit) Patient [...] co-ordinated. Speech clearly articulated. No obvious deficits. Wheel Alignment Mechanic strength +4/5= bilaterally. Skin: no rheumatologic rashes. [...] Feet: No MTP compression tenderness DATA: Labs: [facility] 05/22/2022: Normal CMP and CBC. Mildly elevated CRP at 0.98 (ULN 0.3) with normal ESR at 2. [facility] 06/07/2021: unremarkable CBC, CMP, ESR, CRP. Negative Hepatitis B/C and TB Quant Gold screening. [facility] 03/2021: unremarkable CBC, CMP ASSESSMENT/RECOMMENDATIONS: Seropositive rheumatoid arthritis: Improvement in RA by clinical exam after starting Rituxan 01/2022via [employer] MAP. He is due to have his second infusion today but I am concerned about a possible sinus infection and a groin rash. The sinus issues and purulent sputum have been an intermittent issue. CT sinus ordered to be done at [facility]. Labs are up-to-date and normal except [...] 02/28/2021 office visit to be done at [facility] and not yet done. Continue [...] of your sinuses -- order sent to [facility] so please call to schedule. Schedule a [...] 12:00 PM EDT [place] [address] documented as of this encounter Visit Diagnoses Diagnosis Sinus congestion Other diseases of nasal cavity and sinuses High risk medication use Encounter for long-term (current) use of other medications documented in this encounter Care Teams Fixed Wing Aircraft Flight Engineer Relationship Specialty Start Date End Date Arelis Michele MD [address] [place] [address] PCP - General Family Medicine 08/01/18 02/11/24 documented as of this encounter
--- OUTSIDE RECORDS SUMMARY | 2024-04-07 03:22 | XMS_ITS | Encounter Summary ---
Author Organization [facility] [place] [address] Care Team Providers Care Retirement Officer Name Role Phone Arelis Michele MD Primary Care Provider [phone] Encounter Details Date Type Department Care Team (Late st Contact Info) Description 05/12/2020 Telephone [place] [address] Juany Romo Social History Tobacco Use Types [...] Appointment [place] [address] documented as of this encounter Visit Diagnoses Not on filedocumented in this encounter Care Teams Retirement Officer Relationship Specialty Start Date End Date Arelis Michele MD [address] [place] [address] PCP - General Family Medicine 08/01/18 02/11/24 documented as of this encounter
--- OUTSIDE RECORDS SUMMARY | 2024-04-07 03:22 | XMS_ITS | Encounter Summary ---
Author Organization [facility] [place] [address] Care Team Providers Care All Source Collection Manager Name Role Phone Arelis Michele MD Primary Care Provider [phone] Encounter Details Date Type Department Care Team (Late Contact Info) Description 06/07/2020 Telephone [place] [address] Guera Holloway LNA Social History [...] 12:00 PM EDT Appointment [place] [address] documented as of this encounter Visit Diagnoses Not on filedocumented in this encounter Care Teams All Source Collection Manager Relationship Specialty Start Date End Date Arelis Michele MD [address] [place] [address] PCP - General Family Medicine 08/01/18 02/11/24 documented as of this encounter
--- OUTSIDE RECORDS SUMMARY | 2024-04-07 03:22 | XMS_ITS | Encounter Summary ---
[place] [address] Care Team Providers Care Manager Battery Name Role Phone Arelis Michele MD Primary Care Provider [phone] Encounter Details Date Type Department Care Team (Late Contact Info) Description 12/11/2021 Telephone [place] [address] Stefany Rosales Social History Tobacco Use Types [...] 12:00 PM EDT Appointment [place] [address] documented as of this encounter Visit Diagnoses Not on filedocumented in this encounter Care Teams Manager Battery Relationship Specialty Start Date End Date Arelis Michele MD [address] [place] [address] PCP - General Family Medicine 08/01/18 02/11/24 documented as of this encounter
--- OUTSIDE RECORDS SUMMARY | 2024-04-07 03:22 | XMS_ITS | Encounter Summary ---
[place] [address] Care Team Providers Care Neonatal Social Worker Name Role Phone Arelis Michele MD Primary Care Provider [phone] Encounter Details Date Type Department Care Team (Late Contact Info) Description 03/08/2021 Telephone [place] [address] Juany Romo Social History Tobacco [...] on filedocumented in this encounter Care Teams Neonatal Social Worker Relationship Specialty Start Date End Date Arelis Michele MD [address] [place] [address] PCP - General Family Medicine 08/01/18 02/11/24 documented as of this encounter
--- OUTSIDE RECORDS SUMMARY | 2024-04-07 03:22 | XMS_ITS | Encounter Summary ---
[place] [address] Care Team Providers Care Vat Washer Name Role Phone Arelis Michele MD Primary Care Provider [phone] Reason for Visit * Reason Onset Date Comments Labs Only 04/11/2020 Encounter Details Date Type Department Care Team (Late st Contact Info) Description 04/11/2020 [place] [address] Lionel Rabago RN Labs Only Social History [...] were not included. Dianne Norton APRN [facility] ?? Please tell patients recent labs look good, thank you * Telephone Encounter - Lionel Rabago RN - 04/11/2020 3:02 PM EDT Dianne Norton APRN Sent: Jeimy April 10, 2020 ??9:07 PM To: [facility] ?? Message Please relay results [...] 12:00 PM EDT [place] [address] documented as of this encounter Visit Diagnoses Not on filedocumented in this encounter Care Teams Vat Washer Relationship Specialty Start Date End Date Arelis Michele MD [address] [place] [address] PCP - General Family Medicine 08/01/18 02/11/24 documented as of this encounter
--- OUTSIDE RECORDS SUMMARY | 2024-04-07 03:22 | XMS_ITS | Encounter Summary ---
Author Organization Formerly [facility] [place] [address] Care Team Providers Care Web Services Manager Name Role Phone Arelis Michele MD Primary Care Provider [phone] Encounter Details Date Type Department Care Team (Late st Contact Info) Description 10/01/2022 Hospital Encounter [place] [address] Solitario Moody MD [facility] [place] [address] Social History Tobacco Use Types Packs/Day Years [...] 12:00 PM EDT Appoint[place] [address] documented as of this encounter Visit Diagnoses Not on filedocumented in this encounter Care Teams Web Services Manager Relationship Specialty Start Date End Date Arelis Michele MD [address] [place], [place] [address] PCP - General Family Medicine 02/12/24 documented as of this encounter
--- OUTSIDE RECORDS SUMMARY | 2024-04-07 03:22 | XMS_ITS | Encounter Summary ---
[place] [address] Care Team Providers Care Underwear Trimmer Name Role Phone Arelis Michele MD Primary Care Provider [phone] Encounter Details Date Type Department Care Team (Late st Contact Info) Description 06/25/2022 Tele[place] [address] Carmen Johnston RN Social History Tobacco Use [...] 12:00 PM EDT [place] [address] documented as of this encounter Visit Diagnoses Not on filedocumented in this encounter Care Teams Underwear Trimmer Relationship Specialty Start Date End Date Arelis Michele MD [address] [place] [address] PCP - General Family Medicine 08/01/18 02/11/24 documented as of this encounter
--- OUTSIDE RECORDS SUMMARY | 2024-04-07 03:22 | XMS_ITS | Encounter Summary ---
Author Organization [facility] [place] [address] Care Team Providers Care Environmental Research Scientist Name Role Phone Arelis Michele MD Primary Care Provider Encounter Details Date Type Department Care Team (Late st Contact Info) Description 04/26/2021 Orders [place] [address] Alice Carney APRN [facility] [place] [address] Social History Tobacco Use Types Packs/Day Years [...] 12:00 PM EDT [place]ointment [place] [address] documented as of this encounter Visit Diagnoses Not on filedocumented in this encounter Care Teams Environmental Research Scientist Relationship Specialty Start Date End Date Arelis Michele MD [address] [place], [place] [address] PCP - General Family Medicine 08/01/18 02/11/24 documented as of this encounter
--- OUTSIDE RECORDS SUMMARY | 2024-04-07 03:22 | XMS_ITS | Encounter Summary ---
[place] [address] Care Team Providers Care International Logistics Manager Name Role Phone Arelis Michele MD Primary Care Provider [phone] Reason for Visit * Reason Comments Specialty Pharmacy Review Tofacitinib (X eljanz) Encounter Details Date Type Department Care Team (Late st Contact Info) Description 08/18/2021 Specialty [place] [address] Riana Ceron, [facility] Social History Tobacco Use Types Packs/Day [...] Ceron - 08/18/2021 10:49 AM EST The [facility] has completed a benefits investigation for Wesly Ybarra to review their eligibility to fill at [facility]. Per patient's medication list they are prescribedTofacitinib (Xeljanz) and the medication is able to be filled at the [facility]; patient currently fills with [facility]. documented in this encounter Plan of Treatment Upcoming Encounters Date Type Department Care Team (Late st Contact Info) Description 04/28/2024 12:00 PM EDT [place]oint[place] [address] documented as of this encounter Visit Diagnoses Not on filedocumented in this encounter Care Teams International Logistics Manager Relationship Specialty Start Date End Date Arelis Michele MD [address] [place] [address] PCP - General Family Medicine 08/01/18 02/11/24 documented as of this encounter
--- OUTSIDE RECORDS SUMMARY | 2024-04-07 03:22 | XMS_ITS | Encounter Summary ---
Author Organization [facility] [place] [address] Care Team Providers Care Duralumin Metalworker Name Role Phone Arelis Michele MD Primary Care Provider [phone] Encounter Details Date Type Department Care Team (Late st Contact Info) Description 06/20/2022 Ancillary Procedure [place] [address] Alice Carney [facility] [place] [address] Social History Tobacco Use Types Packs/Day Years [...] 12:00 PM EDT [place] [address] documented as of this encounter Procedures Procedure [...] Carney APRN IMG FILM LIBRARY ORD ERABLES [place] documented in this encounter Visit Diagnoses Not on filedocumented in this encounter Care Teams Duralumin Metalworker Relationship Specialty Start Date End Date Arelis Michele MD [address] [place] [address] PCP - General Family Medicine 08/01/18 02/11/24 documented as of this encounter
--- OUTSIDE RECORDS SUMMARY | 2024-04-07 03:22 | XMS_ITS | Encounter Summary ---
[place] [address] Care Team Providers Care Creative Writing Professor Name Role Phone Arelis Michele MD Primary Care Provider [phone] Reason for Visit * Reason Comments Prior Authorization Xeljanz 11mg tablet Encounter Details Date Type Department Care Team (Late st Contact Info) Description 05/29/2021 Specialty [place] [address] Sesar Jin Social History Tobacco Use Types [...] Rutherford Cyndie Patient : 1950 Patient Address: [address] [address] (home) Medication Name: XELJANZ XR 11 MG TABLET,EXTENDED RELEASE Medication ID: Patient Location: [facility] Patient Location Comment: Subscriber Insurance: [employer] Medicare Subscriber Insurance Comment: Phone: Fax: Physician: DELPHINE ZARCO Physician Comment: Sent Via: [facility] Jack: [id number] Ref/Case/PA#: Medication Strength Frequency Requested: Xelajnz 11mg tablet. Take one tablet by mouth once daily Qty/Day Supply: New Start: New to Therapy Diagnosis & ICD-10 Code: M05.9 Patient Notified: No Submission Notes: None Sesar Jin 05/29/21 3:49 PM * Sesar Jin - 05/29/2021 3:47 PM EDT [facility], Prior Authorization Approval Medication Name: XELJANZ XR 11 MG TABLET,EXTENDED RELEASE Medication ID: Approval Dates: 09/02/2020 to 09/01/2021 Insurance requirements/notes: None Other Notes: None Case/Reference #: [id number] Approval notification Received via: [facility] Copay: $776.55 Copay assistance: Copay Notes: Insurance mandated Pharmacy: [facility] Fillable at [facility]: Yes Pharmacy staff will be reaching out to the patient to inform them of their medication[facility]. If applicable, a pharmacist will speak with the patient to offer our specialty pharmacy services and to arrange delivery of their medication. Sesar Jin 05/31/21 9:29 AM documented in this encounter Plan of Treatment Upcoming Encounters Date Type Department Care Team (Late st Contact Info) Description 04/28/2024 12:00 PM EDT [place] [address] documented as of this encounter Visit Diagnoses Not on filedocumented in this encounter Care Teams Creative Writing Professor Relationship Specialty Start Date End Date Arelis Michele MD [address] [place] [address] PCP - General Family Medicine 08/01/18 02/11/24 documented as of this encounter
--- OUTSIDE RECORDS SUMMARY | 2024-04-07 03:22 | XMS_ITS | Encounter Summary ---
Author Organization [facility] [place] [address] Care Team Providers Care Business Services Specialist Sales Name Role Phone Arelis Michele MD Primary Care Provider [phone] Encounter Details Date Type Department Care Team (Latest Contact Info) Description 04/19/2020 3:00 PM EDT TH Visit (TeleHealth) [place] [address] Dianne Norton APRN [facility] [place] [address] High risk medication use; Rheumatoid arthritis with [...] which wasunremarkable. He went to ED at [facility]. No tick bites, but does work outside [...] taking 1000mg APAP. No NSAID. Going to [place] for 14 days on Saturday He is [...] what diagnosis is. Treated by Dr. Sommers ([facility] Cardiology). History of depression - current [...] [facility]. He will get blood work the month after his first infusion. We will get blood work done at [place]. We did discuss that he has degenerative disease as well, and that Orencia would not treat that pain. I requested he call pulmonology to schedule an appointment. correction steroid use -continue with medrol 2mg daily [...] 12:00 PM EDT Appointment [place] [address] documented as of this encounter Visit Diagnoses Diagnosis High risk medication use Encounter for long-term (current) use of other medications Rheumatoid arthritis with positive rheumatoid factor, involving unspecified site documented in this encounter Care Teams Business Services Specialist Sales Relationship Specialty Start Date End Date Arelis Michele MD [address] [place] [address] PCP - General Family Medicine 08/01/18 02/11/24 documented as of this encounter
--- OUTSIDE RECORDS SUMMARY | 2024-04-07 03:22 | XMS_ITS | Encounter Summary ---
Author Organization [facility] [place] [address] Care Team Providers Care Brand Coordinator Name Role Phone Arelis Michele MD Primary Care Provider [phone] Reason for Referral * Diagnostic Test (Routine) - Closed Specialty Diagnoses / Procedures Referred By Contac t Referred To Contact Radiology Diagnoses ZEPEDA (dyspnea on exertion) Diaphragm paralysis Procedures CT Chest wo Contrast (Generic) Steven Soliz MD [facility] [place] [address] [facility] [place] [address] Referral ID Status Reason Start Date Expiration Date V isits Requested Visits Authorized [id number] Closed Specialty Service Requested 05/23/2020 11/20/2021 1 1 Reason for Visit * Diagnostic Test (Routine) - Closed Specialty Diagnoses / Procedures Referred By Contac t Referred To Contact Radiology Diagnoses ZEPEDA (dyspnea on exertion) Diaphragm paralysis Procedures CT Chest wo Contrast (Generic) Steven Soliz MD [facility] [place] [address] [facility] [place] [address] Referral ID Status Reason Start Date Expiration Date V isits Requested Visits Authorized [id number] Closed Specialty Service Requested 05/23/2020 11/20/2021 1 1 Encounter Details Date Type Department Care Team (Latest Contact Info) Description 08/29/2020 11:37 AM EST - 08/29/2020 12:40 PM EST Hospital Encounter CT Scan at [facility] [place] [address] Steven Soliz MD [facility] [place] [address] 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 Electronically signed by: Parisa Alejandro MD, [facility] ([phone]), at 08/29/2020 5:15 PM Narrative 08/29/2020 5:15 [...] 06/08/2015 FINDINGS: Trachea morphology: ? Central airways wvlxnria-du-rejtiuxzd luminal dimensions: Trachea at level of aortic [...] radiograph 06/08/2015 FINDINGS: Trachea morphology: Central airways ezobahla-mh-qrqmexrds luminal dimensions: Trachea at level of aortic [...] structures: Stable anterior compression deformity of the K23ljopuqqyj body. No suspicious lytic or sclerotic osseous [...] diaphragm documented in this encounter Care Teams Brand Coordinator Relationship Specialty Start Date End Date Arelis Michele MD [address] [place] [address] PCP - General Family Medicine 08/01/18 02/11/24 documented as of this encounter
--- OUTSIDE RECORDS SUMMARY | 2024-04-07 03:22 | XMS_ITS | Encounter Summary ---
[place] [address] Care Team Providers Care Talent Rep Name Role Phone Arelis Michele MD Primary Care Provider [phone] Encounter Details Date Type Department Care Team (Late st Contact Info) Description 04/21/2020 Telephone [place] [address] Himanshu Castellon Social History Tobacco [...] 12:00 PM EDT [place]oint[place] [address] documented as of this encounter Visit Diagnoses Not on filedocumented in this encounter Care Teams Talent Rep Relationship Specialty Start Date End Date Arelis Michele MD [address] [place] [address] PCP - General Family Medicine 08/01/18 02/11/24 documented as of this encounter
--- OUTSIDE RECORDS SUMMARY | 2024-04-07 03:22 | XMS_ITS | Encounter Summary ---
Author Organization [facility] [place] [address] Care Team Providers Care Noc Engineer Name Role Phone Arelis Michele MD Primary Care Provider [phone] Encounter Details Date Type Department Care Team (Late st Contact Info) Description 02/14/2021 3:00 PM EDT Office [place] [address] Alice Carney APRN [facility] [place] [address] Rheumatoid arthritis with positive rheumatoid factor, involving [...] this encounter Progress Notes * Alice Carney, TRAVEL REGISTERED NURSE PACU - 02/14/2021 3:00 PM EDT Rheumatology Follow-up [...] liked to stay on it. Orencia tried 7191-6430 and stopped due to lack of efficacy and dyspnea. SSZ started 12/2020 and tried for about 2.5-3 weeks but stopped due to nausea, diarrhea, rash, wheezing worsened. No hx blood clots. Hx diverticulitis with 18 bowel resected. Cardiac stent at [facility] (no office notes on file, cath report showed single vessel mid-LAD dx stented03/2019), and followed at [facility]. Hx cardiomyopathy. Only able to use his [...] up, in the morning they are curled [facility] blood work with Dr. Michele Not [...] Office Visit from 02/14/2021 in Rheumatology at [facility] Weight 102.5 kg (226 lb) Height 179 [...] hours. No active synovitis on exam today. buttermaker helper steroid use Continue with vit d supplementation, avoiding ca supplementation d/t kidney stones Continue with weightbearing activity Plan: Trial prednisone 10 mg daily x 14 days then follow up TH visit on 02/28/2021 to assess response. In the meantime, I requested information from [facility] cardiology (Per Sandra in [facility] Specialty she willfax Last OV Cardiology 09/2020 [...] 12:00 PM EDT Appointment [place] [address] documented as of this encounter Visit Diagnoses Diagnosis Rheumatoid arthritis with positive rheumatoid factor, involving unspecified site Cardiomyopathy, unspecified type documented in this encounter Care Teams Noc Engineer Relationship Specialty Start Date End Date Arelis Michele MD [address] [place] [address] PCP - General Family Medicine 08/01/18 02/11/24 documented as of this encounter
--- OUTSIDE RECORDS SUMMARY | 2024-04-07 03:22 | XMS_ITS | Encounter Summary ---
Author Organization [facility] [place] [address] Care Team Providers Care Byproducts Maker Name Role Phone Arelis Michele MD Primary Care Provider [phone] Encounter Details Date Type Department Care Team (Late st Contact Info) Description 06/25/2021 Orders [place] [address] Alice Carney, CHIEF OPTOMETRY SERVICE [facility] [place] [address] Rheumatoid arthritis with positive rheumatoid factor, involving [...] this encounter Progress Notes * Alice Carney, CHIEF OPTOMETRY SERVICE - 06/25/2021 4:49 PM EDT See letter. Orders routed to [facility]. Orders Placed This Encounter Procedures ??? CBC [...] 12:00 PM EDT Appointment [place] [address] documented as of this encounter Visit Diagnoses Diagnosis Rheumatoid arthritis with positive rheumatoid factor, involving unspecified site High risk medication use Encounter for long-term (current) use of other medications Hypercholesterolemia Pure hypercholesterolemia documented in this encounter Care Teams Byproducts Maker Relationship Specialty Start Date End Date Arelis Michele MD [address] [place] [address] PCP - General Family Medicine 08/01/18 02/11/24 documented as of this encounter
--- OUTSIDE RECORDS SUMMARY | 2024-04-07 03:22 | XMS_ITS | Encounter Summary ---
[place] [address] Care Team Providers Care Sailing Master Name Role Phone Arelis Michele MD Primary Care Provider [phone] Reason for Visit * Reason Onset Date Comments Questions 03/21/2021 Encounter Details Date Type Department Care Team (Late st Contact Info) Description 03/21/2021 Tele[place] [address] Lionel Rabago, RN Questions Social History Tobacco [...] note were not included. Knuuti, Alice E, PALLIATIVE CARE SPECIALIST to Me ?? 11:42 PM I'm sorry [...] - 03/21/2021 10:28 AM EDT Billie from [facility] infusion calls. Due for RTX tomorrow. [...] 12:00 PM EDT [place] [address] documented as of this encounter Visit Diagnoses Not on filedocumented in this encounter Care Teams Sailing Master Relationship Specialty Start Date End Date Arelis Michele MD [address] [place] [address] PCP - General Family Medicine 08/01/18 02/11/24 documented as of this encounter
--- OUTSIDE RECORDS SUMMARY | 2024-04-07 03:22 | XMS_ITS | Encounter Summary ---
[place] [address] Care Team Providers Care Pickle Sorter Name Role Phone Arelis Michele MD Primary Care Provider [phone] Reason for Visit * Reason Onset Date Comments Prior Authorization 10/18/2021 Encounter Details Date Type Department Care Team (Late st Contact Info) Description 10/18/2021 Telephone [place] [address] Angelica Faith Prior Authorization Social History Tobacco [...] Rationale for request: RA Health plan: [employer] ([facility]) Authorizing client care representative name: Ellie Sent to health plan on: 10/18/21 Health plan decision: Approved Quantity approved: Authorization number: [id number] Start date: 09/02/21 End date: 09/01/22 documented in this encounter Plan of Treatment Upcoming Encounters Date Type Department Care Team (Late st Contact Info) Description 04/28/2024 12:00 PM EDT Appointment [place] [address] documented as of this encounter Visit Diagnoses Not on filedocumented in this encounter Care Teams Pickle Sorter Relationship Specialty Start Date End Date Arelis Michele MD [address] [place] [address] PCP - General Family Medicine 08/01/18 02/11/24 documented as of this encounter
--- OUTSIDE RECORDS SUMMARY | 2024-04-07 03:22 | XMS_ITS | Encounter Summary ---
Author Organization [facility] [place] [address] Care Team Providers Care Circus Rider Name Role Phone Arelis Michele MD Primary Care Provider [phone] Reason for Visit * Treatment/Therapy Plan Authorization (Routine) - Closed Specialty Diagnoses / Procedures Referred By Azam corbett Referred To Contact Diagnoses Rheumatoid arthritis, involving unspecified site, unspecified whether rheumatoid factor present Procedures inf Alice Carney, TECHNICAL PUBLICATIONS WRITER [facility] [place] [address] [facility] Med Infusion [address] [place] [address] Referral ID Status Reason Start Date Expiration Date Visits Re quested Visits Authorized [id number] Closed 12/08/2021 12/08/2022 99 99 Encounter Details Date Type Department Care Team (Latest Contact Info) Description 10/09/2022 11:53 AM EST - 10/09/2022 11:59 PM EST Hospital Encounter [place] [address] Rheumatoid arthritis, involving unspecified site, [...] Preparation/Maintenance site cleansed: 70% alcohol;dressing: transparent semipermeable [id number]/07/23 1220 Patency/Maintenance flushed without difficulty;blood return, able [...] 12:00 PM EDT Appointment [place] [address] documented as of this encounter [...] mg documented in this encounter Care Teams Circus Rider Relationship Specialty Start Date End Date Arelis Michele MD [address] [place] [address] PCP - General Family Medicine 08/01/18 02/11/24 documented as of this encounter
--- OUTSIDE RECORDS SUMMARY | 2024-04-07 03:22 | XMS_ITS | Encounter Summary ---
Author Organization [facility] [place] [address] Care Team Providers Care Terminal Manager Name Role Phone Arelis Michele MD Primary Care Provider [phone] Reason for Referral * Diagnostic Test (Routine) - Closed Specialty Diagnoses / Procedures Referred By Azam corbett Referred To Contact Radiology Diagnoses ZEPEDA (dyspnea on exertion) Diaphragm paralysis Procedures CT Chest wo Contrast (Generic) Steven Soliz MD [facility] [place] [address] [facility] [place] [address] Referral ID Status Reason Start Date Expiration Date V isits Requested Visits Authorized [id number] Closed Specialty Service Requested 05/23/2020 11/20/2021 1 1 Encounter Details Date Type Department Care Team (Late st Contact Info) Description 05/23/2020 Orders [place] [address] Steven Soliz MD [facility] [place] [address] ZEPEDA (dyspnea on exertion); Diaphragm [...] EDT Appoint[place] [address] documented as of this encounter Results * [...] ? Electronically signed by: Parisa Alejandro MD, [facility] ([phone]), at 08/29/2020 5:15 PM Narrative 08/29/2020 5:15 [...] 06/08/2015 FINDINGS: Trachea morphology: ? Central airways wakrpazk-fi-mhphkxgra luminal dimensions: Trachea at level of aortic [...] radiograph 06/08/2015 FINDINGS: Trachea morphology: Central airways foqwqang-al-vbouqdajr luminal dimensions: Trachea at level of aortic [...] structures: Stable anterior compression deformity of the [id number] body. No suspicious lytic or sclerotic osseous [...] below. Electronically signed by: Parisa Alejandro MD, [facility] ([phone]), at 08/29/2020 5:15 PM Steven Soliz MD IMG CT ORDERABLES documented in this encounter Visit Diagnoses Diagnosis ZEPEDA (dyspnea on exertion) Other dyspnea and respiratory abnormality Diaphragm paralysis Disorders of diaphragm ZEPEDA (dyspnea on exertion) Other dyspnea and respiratory abnormality Diaphragm paralysis Disorders of diaphragm documented in this encounter Care Teams Terminal Manager Relationship Specialty Start Date End Date Arelis Michele MD [address] [place] [address] PCP - General Family Medicine 08/01/18 02/11/24 documented as of this encounter
--- OUTSIDE RECORDS SUMMARY | 2024-04-07 03:22 | XMS_ITS | Encounter Summary ---
Author Organization [facility] [place] [address] Care Team Providers Care Music Orchestrator Name Role Phone Arelis Michele MD Primary Care Provider [phone] Encounter Details Date Type Department Care Team (Latest Contact Info) Description 12/08/2021 2:00 PM EDT TH Visit (TeleHealth) [place] [address] Alice Carney APRN [facility] [place] [address] Rheumatoid arthritis with positive rheumatoid factor, involving [...] you can get these drawn at [facility] -- orders are attached: CBC = [...] I spoke with ASHLEY Wise, in [facility] infusion lab this morning -- last infusion was in 2017 for name brand Rituximab. ?? Orencia tried 2911-7431 and stopped due to lack of efficacy [...] mg IV Q16W infusion resumed at [facility] -- next infusion cancelled due to unaffordable zcg-ou-rtibbo cost. ?? Plan was to start Xeljanz 07/2021 given limited options available to patient for treatment givenmedical history and co-morbidities after communication via ED with Wesly Munoz MD, in cardiology. He never started it due to concerns about black box warnings. ?? Started leflunomide 10 mg daily 10/2021 while investigating [facility] Rituxan medication assistance program. Treatment considerations: ?? 02/14/2021 Denied hx blood clots. + Hx diverticulitis with 18 bowel resected. + CMP. SOB/ZEPEDA -- multifactorial as noted elsewhere. ?? Marked improvement with resumption of Rituxan (received Ruxience) 03/2021. He could not continue with RTX due to hrn-vw-waoypi cost. Options for treatment are limited due [...] NSAIDS per cardiology. CAD and CMP: [facility] Cardiology OV notes from 09/27/2020 (Wesly Munoz MD) reviewed 02/28/2021. ?? CAD: s/p CABG (Patient Denies!) and s/p mid LAD stent March 2019. Additional workup with CPET planned at [facility] for eval of ongoing SOB (Patient says [...] as planned due to persistent sour stomach. [facility] Rit[facility] medication assistance program was recently approved [...] persistent dyspnea which is ongoing and his route cdl driver at [facility] ordered a repeat stress test [...] is recovered well. He met his new route cdl driver at [facility] 09/2021 and he is pleased with [...] I discussed this case briefly with his client services administrator (though he did not review prior notes [...] with fluid overload. Note that on 03/21/2021 [facility] Rheumatology nurse confirmed with ASHLEY Wise, that [facility] infusion labthat per their protocol, and [...] -- ongoing. Followed by cardiology at [facility]. Pulmonary: Denies hemoptysis. + SOB at [...] Osteoporosis with pathologic vertebral fracture per [facility] notes but not on file at [facility]. Physical Examination: Not done (telephone visit) Patient [...] can on the L DATA: Labs: [facility] 06/07/2021: unremarkable CBC, CMP, ESR, CRP. Negative Hepatitis B/C and TB Quant Gold screening. [facility] 03/2021: unremarkable CBC, CMP ASSESSMENT/RECOMMENDATIONS: Seropositive rheumatoid arthritis: Suboptimal control on leflunomide 10 mg started about 10 weeks ago. He is unable to increase the dose due to persistent sour stomach. Note that he started leflunomide to see if it would help him while we investigated [employer]it[facility] patient assistance program as that is [...] office visit to be done at [facility] and not yet done. Continue with [...] you can get these drawn at [facility] -- orders are attached: ?? CBC [...] EDT Appoint[place] [address] documented as of this encounter Visit Diagnoses Diagnosis Rheumatoid arthritis with positive rheumatoid factor, involving unspecified site High risk medication use Encounter for long-term (current) use of other medications documented in this encounter Care Teams Music Orchestrator Relationship Specialty Start Date End Date Arelis Michele MD [address] [place] [address] PCP - General Family Medicine 08/01/18 02/11/24 documented as of this encounter
--- OUTSIDE RECORDS SUMMARY | 2024-04-07 03:22 | XMS_ITS | Encounter Summary ---
Author Organization [facility] [place] [address] Care Team Providers Care Machine Fancy Stitcher Name Role Phone Arelis Michele MD Primary Care Provider [phone] Encounter Details Date Type Department Care Team (Latest Contact Info) Description 02/28/2021 10:00 AM EDT TH Visit (TeleHealth) [place] [address] Alice Carney, MANAGER ERP [facility] [address] [place] [address] Osteoporosis, unspecified osteoporosis type, unspecified pathological fracture [...] overload. I spoke with ASHLEY Wise, in [facility] infusion lab this morning -- last infusion was in 2017 for name brand Rituximab. Orencia tried 8452-1862 and stopped due to lack of efficacy and dyspnea. SSZ started 12/2020 and tried for about 2.5-3 weeks but stopped due to nausea, diarrhea, rash, wheezing worsened. Treatment considerations: 02/14/2021 Denied hx blood clots. + Hx diverticulitis with 18 bowel resected. + CMP. SOB/ZEPEDA -- multifactorial as noted elsewhere. CAD and CMP: [facility] Cardiology OV notes from 09/27/2020 (Wesly Munoz MD) reviewed today (02/28/2021). ?? CAD: s/p CABG (Patient Denies!) and s/p mid LAD stent March 2019. Additional workup with CPET planned at [facility] for eval of ongoing SOB (Patient says [...] up, in the morning they are curled [facility] blood work with Dr. Michele Not [...] resection Osteoporosis with pathologic vertebral fracture per [facility] notes but not on file at [facility]. Physical Examination: Not done (telephone visit) Patient [...] hours. No active synovitis on exam today. prison steroid use: Will need to limit. Plan: He is limited in options for treatment as noted at last visit. He would like to resume Rituxan if affordable. SE/AE reviewed. I will order infusions for administration at [facility]. Reviewed that bioequivalent may be covered. Assuming this will be covered, he will get labs including CBC, BMP, Quant IGGs 1 week before 1st infusion at [facility]. Caution re fluid overload with instructions sent in order to [facility] re close monitoring and to schedule infusions [...] activity DEXA ordered to be done at [facility]. Follow up scheduled for 05/26/2021 at 11AM. [...] 12:00 PM EDT [place] [address] documented as of this encounter Procedures Procedure [...] site documented in this encounter Care Teams Machine Fancy Stitcher Relationship Specialty Start Date End Date Arelis Michele MD [address] [place] [address] PCP - General Family Medicine 08/01/18 02/11/24 documented as of this encounter
--- OUTSIDE RECORDS SUMMARY | 2024-04-07 03:22 | XMS_ITS | Encounter Summary ---
[place] [address] Care Team Providers Care Plate Filler Name Role Phone Arelis Michele MD Primary Care Provider [phone] Reason for Visit * Reason Onset Date Comments Follow-up 07/12/2021 Encounter Details Date Type Department Care Team (Late st Contact Info) Description 07/12/2021 Telephone [place] [phone] José Luis Mccabe RN Follow-up Social History [...] - 07/12/2021 7:51 PM EST Billie from [facility] calls to advise Wesly cancelled Infusion [...] out infusion orders for Wesly. Alice Carney, OUTBOARD MOTOR INSPECTOR sent to José Luis Mccabe RN Caller: Unspecified (Yesterday, ??1:12 PM) Yes, she can close out the infusion orders. Thank you. Called and advised Billie to cancel orders per ETL ARCHITECTAngelika. documented in this encounter Plan of Treatment Upcoming Encounters Date Type Department Care Team (Late st Contact Info) Description 04/28/2024 12:00 PM EDT Appointment [place] [address] documented as of this encounter Visit Diagnoses Not on filedocumented in this encounter Care Teams Plate Filler Relationship Specialty Start Date End Date Arelis Michele MD [address] [place] [address] PCP - General Family Medicine 08/01/18 02/11/24 documented as of this encounter
--- OUTSIDE RECORDS SUMMARY | 2024-04-07 03:22 | XMS_ITS | Encounter Summary ---
Author Organization [facility] [address] Care Team Providers Care Charge Loader Name Role Phone Arelis Michele MD Primary Care Provider [phone] Reason for Visit * Treatment/Therapy Plan Authorization (Routine) - Closed Specialty Diagnoses / Procedures Referred By Azam corbett Referred To Contact Diagnoses Rheumatoid arthritis, involving unspecified site, unspecified whether rheumatoid factor present Procedures inf Alice Carney, TUNNEL WORKER [facility] [place] [address] [facility] Med Infusion [address] [place] [id number] Referral ID Status Reason Start Date Expiration Date Visits Re quested Visits Authorized [id number] Closed 12/08/2021 12/08/2022 99 99 Encounter Details Date Type Department Care Team (Latest Contact Info) Description 02/13/2022 9:22 AM EDT - 02/13/2022 11:59 PM EDT Hospital En[place] [address] Rheumatoid arthritis, involving unspecified site, [...] last infusion was last year at [facility], he states that he tolerated well. OBJECTIVE: Confirmed with Alice Carney APRN, Dr. Carney that patients last infusion was last year at [facility]. OK to continue with today's infusion, per [...] 12:00 PM EDT [place] [address] documented as of this encounter Visit Diagnoses [...] mg documented in this encounter Care Teams Charge Loader Relationship Specialty Start Date End Date Arelis Michele MD [address] [place] [address] PCP - General Family Medicine 08/01/18 02/11/24 documented as of this encounter
--- OUTSIDE RECORDS SUMMARY | 2024-04-07 03:22 | XMS_ITS | Encounter Summary ---
Author Organization [facility] [place] [address] Care Team Providers Care Microbiology Director Name Role Phone Arelis Michele MD Primary Care Provider [phone] Encounter Details Date Type Department Care Team (Late Contact Info) Description 05/16/2020 Telephone [place] [address] Guera Holloway LNA Social History [...] 12:00 PM EDT Appointment [place] [address] documented as of this encounter Visit Diagnoses Not on filedocumented in this encounter Care Teams Microbiology Director Relationship Specialty Start Date End Date Berrian, Arelis M, MD [address] [place] [address] PCP - General Family Medicine 08/01/18 02/11/24 documented as of this encounter
--- OUTSIDE RECORDS SUMMARY | 2024-04-07 03:22 | XMS_ITS | Encounter Summary ---
Author Organization [place] [address] Care Team Providers Care Lay Out Maker Name Role Phone Arelis Michele MD Primary Care Provider [phone] Encounter Details Date Type Department Care Team (Late Contact Info) Description 07/12/2022 Telephone [place] [address] Stefany Rosales Social History Tobacco Use Types [...] 12:00 PM EDT [place] [address] documented as of this encounter Visit Diagnoses Not on filedocumented in this encounter Care Teams Lay Out Maker Relationship Specialty Start Date End Date Arelis Michele MD [address] [place] [address] PCP - General Family Medicine 08/01/18 02/11/24 documented as of this encounter
--- OUTSIDE RECORDS SUMMARY | 2024-04-07 03:22 | XMS_ITS | Encounter Summary ---
[place] [address] Care Team Providers Care Fruit I Farmworker Name Role Phone Arelis Michele MD Primary Care Provider [phone] Reason for Visit * Reason Comments Specialty Pharmacy Review Tofacitinib (X eljanz) Encounter Details Date Type Department Care Team (Late st Contact Info) Description 05/29/2021 Specialty [place] [address] Mariela Ritter [facility] Social History Tobacco Use Types Packs/Day [...] Progress Notes * Mariela Ritter [facility] - 05/29/2021 9:01 AM EDT The [facility] has completed a benefits investigation for Wesly Ybarra to review their eligibility to fill at [facility]. Per patient's medication list they are prescribedXeljanz and the medication is able to be filled at the [facility]. documented in this encounter Plan of Treatment Upcoming Encounters Date Type Department Care Team (Late st Contact Info) Description 04/28/2024 12:00 PM EDT Appointment [place] [address] documented as of this encounter Visit Diagnoses Not on filedocumented in this encounter Care Teams Fruit I Farmworker Relationship Specialty Start Date End Date Arelis Michele MD [address] [place] [address] PCP - General Family Medicine 08/01/18 02/11/24 documented as of this encounter
--- OUTSIDE RECORDS SUMMARY | 2024-04-07 03:22 | XMS_ITS | Encounter Summary ---
Author [place] [address] Care Team Providers Care Applique Cutter Name Role Phone Arelis Michele MD Primary Care Provider [phone] Encounter Details Date Type Department Care Team (Late st Contact Info) Description 12/14/2021 Telephone [place] [phone] Yumi Maxwell Social History Tobacco Use Types [...] 12:00 PM EDT [place] [phone] documented as of this encounter Visit Diagnoses Not on filedocumented in this encounter Care Teams Applique Cutter Relationship Specialty Start Date End Date Arelis Michele MD [address] [place] [address] PCP - General Family Medicine 08/01/18 02/11/24 documented as of this encounter
--- OUTSIDE RECORDS SUMMARY | 2024-04-07 03:22 | XMS_ITS | Encounter Summary ---
Author Organization [facility] [place] [address] Care Team Providers Care Relay Dispatcher Name Role Phone Arelis Michele MD Primary Care Provider [phone] Encounter Details Date Type Department Care Team (Late st Contact Info) Description 03/24/2021 External [place] [address] Alice Carney APRN [facility] [place] [address] Social History Tobacco Use Types Packs/Day Years [...] 12:00 PM EDT [place] [address] documented as of this encounter Procedures Procedure Name Priority Date/Time Associated Diagnosis Comments INFUSION THERAPY Routine 03/24/2021 documented in this encounter Results * Infusion therapy (03/24/2021) Alice Carney APRN INFUSION - IV ORDERA BLES documented in this encounter Visit Diagnoses Not on filedocumented in this encounter Care Teams Relay Dispatcher Relationship Specialty Start Date End Date Arelis Michele MD [address] [place] [address] PCP - General Family Medicine 08/01/18 02/11/24 documented as of this encounter
--- OUTSIDE RECORDS SUMMARY | 2024-04-07 03:22 | XMS_ITS | Encounter Summary ---
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 06/16/13 70% 73% 77% 91% -- -- [...] Section of Pulmonary & Critical Care Pager: [phone] documented in this encounter Plan of Treatment Upcoming Encounters Date Type Department Care Team (Late st Contact Info) Description 04/28/2024 12:00 PM EDT [place] [address] documented as of this encounter Results * [...] / FVC LLN 62 % COMPAS PFT KAG16-93 Actual Pre-BD 1.67 L/s COMPAS PFT CDX09-94 Pre-BD % of Predicted 70 % COMPAS PFT YJF43-45 Predicted 2.39 L/s COMPAS PFT AQS23-25 Pre-BD Z-Score -0.78 COMPAS PFT DLCO Hb [...] abnormality documented in this encounter Care Teams Correctional Case Records Supervisor Relationship Specialty Start Date End Date Arelis Michele MD [address] [place] [address] PCP - General Family Medicine 08/01/18 02/11/24 documented as of this encounter
--- OUTSIDE RECORDS SUMMARY | 2024-04-07 03:22 | XMS_ITS | Encounter Summary ---
[place] [address] Care Team Providers Care Client Relations Associate Name Role Phone Arelis Michele MD Primary Care Provider [phone] Reason for Visit * Reason Onset Date Comments Other 01/04/2021 Encounter Details Date Type Department Care Team (Late st Contact Info) Description 01/04/2021 Telephone [place] [address] Cristian Bhandari RN Other Social History Tobacco [...] 1:13 PM EDT RTC to Billie at [facility] infusion and she reports that she will need a dc Orencia order faxed to [phone]. I let her know that I will send this request to Dianne Norton. documented in this encounter Plan of Treatment Upcoming Encounters Date Type Department Care Team (Late st Contact Info) Description 04/28/2024 12:00 PM EDT [place] [address] documented as of this encounter Visit Diagnoses Not on filedocumented in this encounter Care Teams Client Relations Associate Relationship Specialty Start Date End Date Arelis Michele MD [address] [place] [address] PCP - General Family Medicine 08/01/18 02/11/24 documented as of this encounter
--- OUTSIDE RECORDS SUMMARY | 2024-04-07 03:22 | XMS_ITS | Encounter Summary ---
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
--- OUTSIDE RECORDS SUMMARY | 2024-04-07 03:22 | XMS_ITS | Encounter Summary ---
Author Organization [facility] [place] [address] Care Team Providers Care Sand Filler Name Role Phone Arelis Michele MD Primary Care Provider [phone] Encounter Details Date Type Department Care Team (Late st Contact Info) Description 05/12/2020 Telephone [place] [address] Juany Romo Social History Tobacco Use Types [...] 12:00 PM EDT Appointment [place] [address] documented as of this encounter Visit Diagnoses Not on filedocumented in this encounter Care Teams Sand Filler Relationship Specialty Start Date End Date Arelis Michele MD [address] [place] [address] PCP - General Family Medicine 08/01/18 02/11/24 documented as of this encounter
--- OUTSIDE RECORDS SUMMARY | 2024-04-07 03:22 | XMS_ITS | Encounter Summary ---
[place] [address] Care Team Providers Care Terra Cotta Setter Name Role Phone Arelis Michele MD Primary Care Provider [phone] Reason for Visit * Reason Onset Date Comments Other 03/09/2021 infusion Encounter Details Date Type Department Care Team (Late st Contact Info) Description 03/09/2021 [place] [address] Lionel Rabago RN Other (infusion) Social History [...] - 03/09/2021 1:47 PM EDT Billie from [facility] infusion calls. Infusion order (RTX) with no dose. Also, difficult to read additional information listed in regards to lab work and when to complete. Requires order with dose and clarification of lab work request. documented in this encounter Plan of Treatment Upcoming Encounters Date Type Department Care Team (Late st Contact Info) Description 04/28/2024 12:00 PM EDT [place] [address] documented as of this encounter Visit Diagnoses Not on filedocumented in this encounter Care Teams Terra Cotta Setter Relationship Specialty Start Date End Date Arelis Michele MD [address] [place] [address] PCP - General Family Medicine 08/01/18 02/11/24 documented as of this encounter
--- OUTSIDE RECORDS SUMMARY | 2024-04-07 03:23 | XMS_ITS | Encounter Summary ---
Author Organization [facility] [place] [address] Care Team Providers Care Psychological Aide Name Role Phone Arelis Michele MD Primary Care Provider [phone] Encounter Details Date Type Department Care Team (Late st Contact Info) Description 02/16/2019 11:00 AM EDT - 02/16/2019 12:00 PM EDT Surgery Gastroenterology at [facility] [place] [address] [place] [address] EGD,WITH DILATION ESOPHAGUS WITH BALLOON,< 30 MM [...] to be checked. Saturday-Saturday Same Day Endo [phone] Otherwise contact [phone] and ask to speak to the tree climber content management specialist Follow up care is a rm part [...] 12:00 PM EDT [place] [address] documented as of this encounter Procedures Procedure [...] PM EDT 02/16/2019 1:20 PM EDT Narrative [facility] - 02/16/2019 1:20 PM EDT Specimen requisition ordered. ??Separate Pathology report to follow Sarwat Villarreal MD PATHOLOGY/[place] [address] * Specimen to Pathology (02/16/2019 1:20 PM EDT) AP Specimen 02/16/2019 1:20 PM EDT 02/16/2019 1:20 PM EDT Narrative [facility] - 02/16/2019 1:20 PM EDT Specimen requisition ordered. ??Separate Pathology report to follow Sarwat Villarreal MD PATHOLOGY/[place] [address] * Specimen to Pathology (02/16/2019 1:20 PM EDT) AP Specimen 02/16/2019 1:20 PM EDT 02/16/2019 1:20 PM EDT Narrative [facility] - 02/16/2019 1:20 PM EDT Specimen requisition ordered. ??Separate Pathology report to follow Sarwat Villarreal MD PATHOLOGY/[place] [address] * Specimen to Pathology (02/16/2019 1:20 PM EDT) AP Specimen 02/16/2019 1:20 PM EDT 02/16/2019 1:20 PM EDT Narrative [facility] - 02/16/2019 1:20 PM EDT Specimen requisition ordered. ??Separate Pathology report to follow Sarwat Villarreal MD PATHOLOGY/CYTOLOGY O NANCY [facility] [place] [address] * Surgical Pathology Report (02/16/2019 12:17 PM EDT) Final Diagnosis [id number] ? Location: 4T; EA10; A The signing [...] CASTILLO, Bertha Verified: ??02/19/2019 ?Pathologist Performed at: ??-[facility] Dept. of Pathology, [place], [place] CLINICAL INFORMATION Specimen Submitted: A - [...] SPECIMEN PROCESSING ??sns 02/19/2019 11:13 AM EDT [facility] GI Biopsy 02/16/2019 12:1 7 PM EDT 02/16/2019 12:17 PM EDT GI Biopsy 02/16/2019 12:1 7 PM EDT 02/16/2019 12:17 PM EDT GI Biopsy 02/16/2019 12:1 7 PM EDT 02/16/2019 12:17 PM EDT GI Biopsy 02/16/2019 12:1 7 PM EDT 02/16/2019 12:17 PM EDT Sarwat Villarreal MD PATHOLOGY/CYTOLOGY O RDERABLES [facility] [place] [address] * COLONOSCOPY (02/16/2019 11:54 AM EDT) COLONOSCOPY [facility] Endoscopy Procedure Date: 02/16/2019 11:54 AM ? Patient Name: Wesly Ybarra ? Date of : 1950 ? Age: 68 ? Order #: [id number] ? Instrument Name: [id number] ? Procedure: ? Colonoscopy Indications: ? Screening for colorectal malignant ? neoplasm Providers: ? Uriah Self RN, ? Janet Coburn, Reading Interventionist Referring : ?Arelis Michele MD Medicines: ? [...] by the physician, the ? nurse, the logger all round and the ? infectious waste technician. The procedure was ? verified in [...] preparation was evaluated using ? the BBPS (Adtuitive Bowel Preparation ? Scale) with scores of: [...] I personally performed the entire procedure. ? Srawat Cherelle, 02/16/2019 1:31:28 PM Number of Addenda: 0 Note Initiated On: 02/16/2019 11:54 AM [facility]OVATION 02/16/2019 11:5 4 AM EDT Arelis Michele MD GENERAL SURGICAL ORD ERABLES [facility]OVATION * UPPER GI ENDOSCOPY (02/16/2019 11:53 AM EDT) UPPER GI ENDOSCOPY [facility] Endoscopy Procedure Date: 02/16/2019 11:53 AM ? Patient Name: Wesly Ybarra ? Date of : 1950 ? Age: 68 ? Order #: [id number] ? Instrument Name: [id number] ? Procedure: ? Upper GI endoscopy Indications: ? Dysphagia Providers: ? Uriah Self, ASHLEY, ? Janet Coburn, Reading Interventionist Referring : ?Arelis Michele MD Medicines: ? [...] by the physician, the ? nurse, the logger all round and the ? infectious waste technician. The procedure was ? verified in [...] (Bezet) 445 ms MUSE SYSTEM Calculated P [place] 48 degrees MUSE SYSTEM Calculated T [place] 28 degrees MUSE SYSTEM INTERPRETATION Normal sinus rhythm Normal ECG When compared with ECG of 02-NOV-2003 13:04, Previous ECG has undetermined rhythm, needs review Confirmed by MD Taty, Mely ([id number]) on 02/16/2019 8:31:39 PM MUSE SYSTEM 02/16/2019 10:5 5 AM EDT 02/16/2019 8:31 PM EDT James Bourne MD ECG ORDERABLES MUSE SYSTEM documented in this encounter Visit Diagnoses Not on filedocumented in this encounter Active and Recently Administered Medications Care Teams Psychological Aide Relationship Specialty Start Date End Date Arelis Michele MD [address] [place] [address] PCP - General Family Medicine 08/01/18 02/11/24 documented as of this encounter
--- OUTSIDE RECORDS SUMMARY | 2024-04-07 03:23 | XMS_ITS | Encounter Summary ---
Author Organization [facility] [place] [address] Care Team Providers Care Boating Safety Officer Name Role Phone Arelis Michele MD Primary Care Provider [phone] Reason for Visit * Reason Comments Medication Refill Encounter Details Date Type Department Care Team (Late st Contact Info) Description 12/31/2019 Refill Cardiology at [address] [phone] Sean Manzano II, MD [facility] [place] [address] Medication Refill Social History Tobacco Use Types [...] PM EDT Appointment [place] [address] documented as of this encounter Visit Diagnoses Not on filedocumented in this encounter Care Teams Boating Safety Officer Relationship Specialty Start Date End Date Arelis Michele MD [address] [place], [place] [id number] PCP - General Family Medicine 08/01/18 02/11/24 documented as of this encounter
--- OUTSIDE RECORDS SUMMARY | 2024-04-07 03:23 | XMS_ITS | Encounter Summary ---
Author Organization [facility] [place] [address] Care Team Providers Care Location Manager Name Role Phone Arelis Michele MD Primary Care Provider [phone] Reason for Visit * Reason Comments Right Knee Pain right knee pain,disc uss MRI * Consultation (Urgent) - Closed Specialty Diagnoses / Procedures Referred By Azam corbett Referred To Contact Orthopaedics Diagnoses Right leg swelling Injury of right lower extremity, subsequent encounter Right knee pain Dianne Norton APRN [facility] [place] [address] [facility] [place] [facility] [address] [place] [phone] Referral ID Status Reason Start Date Expiration Date V isits Requested Visits Authorized [id number] Closed Consult, Test & Treat 07/22/2019 07/21/2020 1 1 Encounter Details Date Type Department Care Team (Late st Contact Info) Description 08/11/2019 1:00 PM EST Office [place] [address] Db Lara MD [facility] [place] [address] Sprain of right knee, unspecified [...] me [at the request of Dianne Norton, [facility] [place] [address]] for the above chief complaint. HPI: The [...] physical therapy 3 times a week in [place]. He has noted improvements but it is [...] 3.66) performed by Sarwat Villarreal MD at [facility] ENDOSCOPY ??? PRO COLONOSCOPY, REMV LESN, SNARE N/A 02/16/2019 COLONOSCOPY, POLYPECTOMY, REMOVAL LESION BY SNARE (WRVU 4.67) performed by Sarwat Villarreal MD at [facility] ENDOSCOPY ??? PRO UP GI ENDOSCOPY, BALL DIL, 30MM N/A 02/16/2019 EGD,WITH DILATION ESOPHAGUS WITH BALLOON,< 30 MM (WRVU 2.77) performed by Sarwat Villarreal MD at [facility] ENDOSCOPY ??? PRO UPPER GI ENDOSCOPY, BIOPSY N/A 02/16/2019 EGD WITH BIOPSY (WRVU 2.49) performed by Sarwat Villarreal MD at [facility] ENDOSCOPY Medications were reviewed with the patient [...] file Gets together: Not on file Attends jain service: Not on file Active member of [...] studies: X-rays and MRI reviewed performed at [facility] reviewed including the report and images and [...] less than $20,000 # People Supported 1 Bel[place]an, , No, not Belizean// Race White Health Literacy Somewhat Currently working [...] Db Lara MD [facility] Orthopaedic Surgery Pager: [phone] documented in this encounter Plan of Treatment Upcoming Encounters Date Type Department Care Team (Late st Contact Info) Description 04/28/2024 12:00 PM EDT [place] [address] Scheduled Referrals Name Type Priority Associated Diagnoses Order Schedule Referral to Orthopaedics Outpatient Referral Routine Right leg swelling Injury of right lower extremity, subsequent encounter Ordered: 07/22/2019 documented as of this encounter Visit Diagnoses Diagnosis Sprain of right knee, unspecified ligament, initial encounter documented in this encounter Care Teams Location Manager Relationship Specialty Start Date End Date Arelis Michele MD [address] [place] [address] PCP - General Family Medicine 08/01/18 02/11/24 documented as of this encounter
--- OUTSIDE RECORDS SUMMARY | 2024-04-07 03:23 | XMS_ITS | Encounter Summary ---
Author Organization [facility] [place] [address] Care Team Providers Care Petroleum Transport Driver Name Role Phone Arelis Michele MD Primary Care Provider [phone] Encounter Details Date Type Department Care Team (Late st Contact Info) Description 04/06/2020 3:00 PM EDT Office Visit [place] [address] Dianne Norton, MAYONNAISE MIXER [facility] [place] [address] Rheumatoid arthritis with positive rheumatoid factor, involving [...] more? Visit our health information library at [email or web address] You can also view health information on [employer], your personal patient account. Log in or sign uptoday. Enter J005 in the search box to learn more about Rotator Cuff: Exercises. Current as of: November 02, 2019?Content Version: 12.5 ?? [employer]. Care instructions adapted under license by [facility]. If you have questions about a medical condition or this instruction, always ask your healthcare professional. [employer] disclaims any warranty or liability for your [...] which wasunremarkable. He went to ED at [facility]. No tick bites, but does work [...] taking 1000mg APAP. No NSAID. Going to [place] for 14 days on Saturday He is [...] what diagnosis is. Treated by Dr. Sommers ([facility]). History of depression - current management [...] gel to be used on L shoulder termite control representative steroid use -continue with medrol 2mg daily -continue with vit d supplementation, avoiding ca supplementation d/t kidney stones -continue with weightbearing activity Phone Call in 2wks documented in this encounter Plan of Treatment Upcoming Encounters Date Type Department Care Team (Late st Contact Info) Description 04/28/2024 12:00 PM EDT Appointment [place] [address] documented as of this encounter Procedures Procedure [...] 4:18 PM EDT) Neutrophil % 60.9 % [facility] Neutrophil Absolute 5.31 1.70 - 6.10 x10(3)/[facility] Lymph % 26.8 % [facility] Lymphocytes Abs 2.3 0.9 - 3.2 x10(3)/[facility] Monocyte % 7.7 % [facility] Monocyte Abs 0.7 0.3 - 0.9 x10(3)/[facility] Eos % 3.8 % [facility] Eosinophils Abs 0.3 0.0 - 0.4 x10(3)/[facility] Basophil % 0.5 % [facility] Baso Absolute 0.0 0.0 - 0.1 x10(3)/[facility] Immature Gran % 0.30 % [facility] Comment: Immature granulocytes(IG's)percentage and absolute count will include metamyelocytes, myelocytes, and promyelocytes. Blood smears from CBCs yielding IG's will be scanned manually for concordance. If this scan disagrees with the automated IG or if promyelocytes are noted, a manual differential will be performed. Immature Gran Absolute 0.03 0.00 - 0.04 x10(3)/[facility] Blood specimen (specimen) 04/06/2020 4:18 PM EDT 04/06/2020 4:23 PM EDT Narrative Resulting Agency Comment Spec In Lab Dianne Norton MAYONNAISE MIXER HEMATOLOGY ORDERABLE S [facility] [place] [address] * (ABNORMAL) Hemogram (04/06/2020 4:18 PM EDT) White Blood Cell 8.7 4.0 - 9.5 x10(3)/ L [facility] Red Blood Cell 5.78(H) 4.58 - 5.54 x10(6)/mc L [facility] Hemoglobin 17.2(H) 13.7 - 16.5 gm/dL [facility] Hematocrit 52.8(H) 40.5 - 48.5 % [facility] Mean Cell Volume 91.3 82.9 - 93.1 fL [facility] Mean Cell Hemoglobin 29.8 27.5 - 32.1 pg [facility] Mean Cell Hemoglobin Concentration 32.6 32.0 - 35.7 gm/dL [facility] Platelet 283 145 - 357 x10(3)/mc L [facility] RDW Standard Deviation 48.9(H) 36.0 - 45.0 fL [facility] RDW coefficient of variation 14.6(H) 11.4 - 13.8 % [facility] Mean Platelet Volume 9.8 7.6 - 12.9 fL [facility] NRBC% auto 0.0 % [facility] NRBC Absolute 0.000 0.000 - 0.000 x10(3)/mc L [facility] Blood specimen (specimen) 04/06/2020 4:18 PM EDT 04/06/2020 4:23 PM EDT Narrative Resulting Agency Comment Spec In Lab Dianne Elbert Norton MAYONNAISE MIXER HEMATOLOGY ORDERABLE S [facility] [place] [address] * Lipid Panel (Reflex Direct LDL) (04/06/2020 4:18 PM EDT) Cholesterol, Total 218 mg/dL [facility] Comment: Lower Risk: <200 mg/dL Average Risk: 200-239 mg/dL Higher Risk: >rq=148 mg/dL Triglyceride 184 mg/dL [facility] Comment: Average Risk/Lower Risk: <150 mg/dL Borderline High Risk: 150-199 mg/dL High Risk: 200-499 mg/dL Very High Risk: >cf=796 mg/dL HDL Cholesterol 56 mg/dL [facility] Comment: Males: ?? Higher Risk: <40 mg/dL Females: ?? HIgher Risk: <50 mg/dL LDL Cholesterol 125 mg/dL [facility] Comment: Lowest Risk: <100 mg/dL Lower Risk: 100-129 mg/dL Borderline High Risk: 130-159 mg/dL High Risk: 160-189 mg/dL Very High Risk: >dv=101 mg/dL Cholesterol/HDL Ratio 3.9 ratio [facility] Lipid Interpretation See Note [facility] Comment: Lipid management should be guided by a patient? s ASCVD risk, goals and preferences. ACC/AHA Guidelines recommend high intensity statin if clinical ASCVD or LDL greater than or equal to 190 mg/dL. http://tinyurl.com/WYH-DHK-Ygktggrma Adults aged 40-75 with LDL 70-189 mg/dL should have their 10 year ASCVD risk estimated with the ACC/AHA ASCVD risk electrical estimator http://tools.acc.org/LIUVH-Pqul-Nomyknmat/ Statin should be discussed if risk greater [...] Norton APRN CHEMISTRY ORDERABLES Performing Organization Address [facility] Co de Phone Number [facility] [place] [address] * (ABNORMAL) Sedimentation rate (04/06/2020 4:18 PM EDT) Sedimentation Rate Automated <3(L) 3 - 46 mm/hr [facility] Comment: Effective August 12, 2019 new capillary photometric technology has resulted in a change in reference ranges. It is recommended that each ESR result be reviewed with its own age appropriate reference range. Blood specimen (specimen) 04/06/2020 4:18 PM EDT 04/06/2020 4:23 PM EDT Narrative Resulting Agency Comment Spec In Lab Dianne Norton APRN HEMATOLOGY ORDERABLE S Performing Organization Address City/[facility] Co de Phone Number [facility] [place] [address] * CRP, acute inflammation (04/06/2020 4:18 PM EDT) C-Reactive Protein 1.2 <=4.9 mg/L [facility] Blood specimen (specimen) 04/06/2020 4:18 PM EDT 04/06/2020 4:23 PM EDT Narrative Resulting Agency Comment Spec In Lab Diannelucas Norton ITA CHEMISTRY ORDERABLES [facility] [address] * Comprehensive metabolic panel (non-fasting) (04/06/2020 4:18 PM EDT) Glucose 101 65 - 199 mg/dL [facility] Comment:Diabetes: >=200 mg/d L plus symptoms Blood Urea Nitrogen 13 10 - 20 mg/dL [facility] Creatinine 0.99 0.80 - 1.50 mg/dL [facility] Sodium 141 135 - 145 mmol/L [facility] Potassium 4.3 3.5 - 5.0 mmol/L [facility] Comment: Please note: ??Patients with WBC >100,000 may have falsely elevated Potassium levels. ??For accurate Potassium quantification in these patients send serum separator tube (gold top) for subsequent determinations. ??Contact the Clinical Chemistry Laboratory if there are any questions. Chloride 105 98 - 107 mmol/L [facility] Carbon Dioxide 25 22 - 31 mmol/L [facility] Anion Gap 11 5 - 15 mmol/L [facility] Calcium 9.2 8.5 - 10.5 mg/dL [facility] Protein, Total 6.7 6.1 - 8.0 gm/dL [facility] Albumin 4.5 3.2 - 5.2 gm/dL [facility] Aspartate Aminotransferase 17 0 - 39 unit/L [facility] Alanine Aminotransferase 15 0 - 55 unit/L [facility] Alkaline Phosphatase 85 40 - 130 unit/L [facility] Bilirubin, Total 0.4 0.2 - 1.3 mg/dL [facility] Est Glomerular Filtration Rate 76 >=60 mL/min/1. 73 m?? [facility] Comment: The eGFR was calculated using the CKD-EPI equation. As with all creatinine based estimates of kidney function, eGFR values calculated with the CKD-EPI equation are not accurate in patients with acute kidney failure, extremes of body mass or the acutely ill. http://Artwardly/[facility]IDnkf eGFR 88 >=60 mL/min/1. 73 m?? [facility] Comment: The eGFR was calculated using the CKD-EPI equation. As with all creatinine based estimates of kidney function, eGFR values calculated with the CKD-EPI equation are not accurate in patients with acute kidney failure, extremes of body mass or the acutely ill. http://Artwardly/[facility]nkf Blood specimen (specimen) 04/06/2020 4:18 PM EDT 04/06/2020 4:23 PM EDT Narrative Resulting Agency Comment Spec In Lab Dianne Norton APRN CHEMISTRY ORDERABLES Performing Organization Address City/State/[facility] Co de Phone Number [facility] [place] [address] documented in this encounter Visit Diagnoses Diagnosis Rheumatoid arthritis with positive rheumatoid factor, involving unspecified site Hypercholesterolemia Pure hypercholesterolemia documented in this encounter Care Teams Petroleum Transport Driver Relationship Specialty Start Date End Date Arelis Michele MD [address] [place] [address] PCP - General Family Medicine 08/01/18 02/11/24 documented as of this encounter
--- OUTSIDE RECORDS SUMMARY | 2024-04-07 03:23 | XMS_ITS | Encounter Summary ---
Author Organization [facility] [place] [address] Care Team Providers Care Ham Stripper Name Role Phone Arelis Michele MD Primary Care Provider [phone] Encounter Details Date Type Department Care Team (Late st Contact Info) Description 03/18/2019 Telephone [place] [address] Yakelin Pope Social History Tobacco Use Types [...] 12:00 PM EDT [place] [address] documented as of this encounter Visit Diagnoses Not on filedocumented in this encounter Care Teams Ham Stripper Relationship Specialty Start Date End Date Arelis Michele MD [address] [place] [address] PCP - General Family Medicine 08/01/18 02/11/24 documented as of this encounter
--- OUTSIDE RECORDS SUMMARY | 2024-04-07 03:23 | XMS_ITS | Encounter Summary ---
Author Organization [facility] [place] [address] Care Team Providers Care Bung Driver Name Role Phone Arelis Michele MD Primary Care Provider [phone] Encounter Details Date Type Department Care Team (Late st Contact Info) Description 03/12/2019 Orders Only Cardiology at [address] [address] Holland Cerrato PA [facility] [place] [address] Abnormal stress test; Chest discomfort Social History [...] 12:00 PM EDT Appointment [place] [address] documented as of this encounter Procedures Procedure Name Priority Date/Time Associated Diagnosis Comments CARDIAC CATHETERIZATION Routine 03/20/20 19 1:02 PM EDT Abnormal stress test Chest discomfort documented in this encounter Results * CARDIAC CATHETERIZATION (03/20/2019 1:02 PM EDT) Anatomical Region Laterality Modality Other Narrative 03/20/2019 1:09 PM EDT ?[facility] ? Cardiac Catheterization/Intervention Report ? Patient Name: LEEANNE AGEE. ? Procedure Date: 03/20/2019 ? A #: [id number] ? Primary Physician: Sean Manzano ? Case #: [id number] ? File Name: [id number] ? Catheterization Order Number: [id number] ? [facility] ? Final Report [place], [place] ? Patient Name: ? LEEANNE AGEE ?ID#: ?[id number] ? : ?1950 ? Procedure Date: ? [...] was designated as ?ASA Class IV. The [facility] clinical frailty scale is 4: Vulnerable. [...] procedure was Elective. 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 [...] Note Sean Manzano II, MD - 08/22/2019 [facility] Cardiac Catheterization/Intervention Report Patient Name: LEEANNE AGEE Procedure Date: 03/20/2019 A #: [id number] Primary Physician: Sean Manzano Case #: File Name: [id number] Catheterization Order Number: [id number] [facility] FinalReport [place], [place] Patient Name: LEEANNE AGEE ID#:[id number] :1950 Procedure Date: March 20, 2019 Case #: Room: 1 Case Physician: Sean Manzano M.D. Start: 11:12 Fellow: Isael Bedoya M.D. Admission:03/20/2019 Discharge:03/21/2019 Referring Arelis Michele M.D. [...] patient wasdesignated as ASA Class IV. The [facility] clinical frailty scale is 4: Vulnerable. [...] diagnostic procedure was Elective. Theindication for the paint laboratory technician visit is new onset angina less than [...] 17.7 minutes, dose area product was 133,991 [id number] air kerma was 1,867 mGY. See the [...] The lesion was predilated with a 2.50mm [id number] MM balloon with a maximum inflation pressure [...] pain documented in this encounter Care Teams Bung Driver Relationship Specialty Start Date End Date Arelis Michele MD [address] [place] [address] PCP - General Family Medicine 08/01/18 02/11/24 documented as of this encounter
--- OUTSIDE RECORDS SUMMARY | 2024-04-07 03:23 | XMS_ITS | Encounter Summary ---
[place] [address] Care Team Providers Care Dramatic Arts Historian Name Role Phone Arelis Michele MD Primary Care Provider [phone] Reason for Visit * Reason Onset Date Comments Referral 07/20/2019 Encounter Details Date Type Department Care Team (Late st Contact Info) Description 07/20/2019 [place] [phone] Lionel Rabago, call center trainer Social History Tobacco Use Types Packs/Day Years [...] were not included. Dianne Norton APRN P [facility] Rheumatology Nurse ?? Please call pt and relay the following: I reviewed [facility] ED notes. I would like to get a knee MRI here, and I would like him to be evaluatedby our ortho dept. Please ask if he is amenable to this. When is he back from his trip? Spoke with patient. Updated on above. Amenable to MRI of knee and [facility] ortho referral. documented in this encounter Plan of Treatment Upcoming Encounters Date Type Department Care Team (Late st Contact Info) Description 04/28/2024 12:00 PM EDT [place] [address] documented as of this encounter Visit Diagnoses Not on filedocumented in this encounter Care Teams Dramatic Arts Historian Relationship Specialty Start Date End Date Arelis Michele MD [address] [place] [address] PCP - General Family Medicine 08/01/18 02/11/24 documented as of this encounter
--- OUTSIDE RECORDS SUMMARY | 2024-04-07 03:23 | XMS_ITS | Encounter Summary ---
[facility] [place] [address] Care Team Providers Care Scientific Publications Editor Name Role Phone Arelis Michele MD Primary Care Provider [phone] Encounter Details Date Type Department Care Team (Late st Contact Info) Description 02/16/2019 12:02 PM EDT Anesthesia [place] [address] James Bourne MD [facility] [place] [address] Mely Azul CRNA [facility] [place] [address] Anesthesia Record Procedure Summary Procedure Name Responsible [...] Procedure Summary Date: 02/16/19 [facility] / [facility] Anesthesia Start: 1202 Anesthesia Stop: 1322 [...] All Anesthesia Providers: Anesthesiologist: James Bourne MD WRAPPING CLERK: Mely Azul CRNA Vitals Value Taken Time [...] eye ??? Osteopenia ?? Osteopenia, DXA at [facility] in 06/2007. ?? Right [...] I will be working with either a WRAPPING CLERK or resident physician. A resident physician means a physician who is in training to be an anesthesiologist. The patient acknowledged these risks and would like to proceed with the anesthesia plan. Sedation with GA back up. I will obtain baseline EKG. Informed Consent: Anesthetic plan and risks discussed with patient. Plan discussed with WRAPPING CLERK. PAT Clinic Note documented in this encounter Plan of Treatment Upcoming Encounters Date Type Department Care Team (Late st Contact Info) Description 04/28/2024 12:00 PM EDT [place]oint[place] [address] documented as of this encounter [...] mL/hr documented in this encounter Care Teams Scientific Publications Editor Relationship Specialty Start Date End Date Arelis Michele MD [address] [place] [address] PCP - General Family Medicine 08/01/18 02/11/24 documented as of this encounter
--- OUTSIDE RECORDS SUMMARY | 2024-04-07 03:23 | XMS_ITS | Encounter Summary ---
Author Organization [facility] [place] [address] Care Team Providers Care Remote Broadcast Engineer Name Role Phone Arelis Michele MD Primary Care Provider [phone] Reason for Referral * Diagnostic Test (Emergency) - Closed Specialty Diagnoses / Procedures Referred By Azam corbett Referred To Contact Radiology Diagnoses Edema of right lower extremity Procedures CT Knee wo Contrast Right (Generic) Dianne Norton APRN [facility] [place] [address] [facility] [place] [address] Referral ID Status Reason Start Date Expiration Date V isits Requested Visits Authorized [id number] Closed Specialty Service Requested 07/02/2019 07/01/2020 1 1 Encounter Details Date Type Department Care Team (Late st Contact Info) Description 07/02/2019 11:00 AM EDT Office [place] [address] Dianne Norton APRN [facility] [place] [address] Edema of right lower extremity; [...] which wasunremarkable. He went to ED at [facility]. No tick bites, but does work [...] taking 1000mg APAP. No NSAID. Going to [place] for 14 days on Saturday He is [...] what diagnosis is. Treated by Dr. Sommers ([facility] Cardiology). 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 Dianne Norton ENERGY PROFESSIONAL IMG CT ORDERABLES * Differential, Automated (07/02/2019 12:54 PM EDT) Neutrophil % 66.2 % [facility] Neutrophil Absolute 5.87 1.70 - 6.10 x10(3)/mcL [facility] Lymph % 22.5 % [facility] Lymphocytes Abs 2.0 0.9 - 3.2 x10(3)/[facility] Monocyte % 8.5 % [facility] Monocyte Abs 0.8 0.3 - 0.9 x10(3)/[facility] Eos % 2.4 % [facility] Eosinophils Abs 0.2 0.0 - 0.4 x10(3)/[facility] Basophil % 0.3 % [facility] Baso Absolute 0.0 0.0 - 0.1 x10(3)/[facility] Immature Gran % 0.10 % [facility] Comment: Immature granulocytes(IG's)percentage and absolute count will include metamyelocytes, myelocytes, and promyelocytes. Blood smears from CBCs yielding IG's will be scanned manually for concordance. If this scan disagrees with the automated IG or if promyelocytes are noted, a manual differential will be performed. Immature Gran Absolute 0.01 0.00 - 0.04 x10(3)/[facility] Blood specimen (specimen) 07/02/2019 12:54 PM EDT 07/02/2019 1:12 PM EDT Narrative Resulting Agency Comment Spec In Lab Dianne Norton ENERGY PROFESSIONAL HEMATOLOGY ORDERABLE S [facility] [place] [address] * (ABNORMAL) Hemogram (07/02/2019 12:54 PM EDT) White Blood Cell 8.9 4.0 - 9.5 x10(3)/[facility] Red Blood Cell 4.82 4.58 - 5.54 x10(6)/[facility] Hemoglobin 14.4 13.7 - 16.5 gm/dL [facility] Hematocrit 44.0 40.5 - 48.5 % [facility] Mean Cell Volume 91.3 82.9 - 93.1 fL [facility] Mean Cell Hemoglobin 29.9 27.5 - 32.1 pg [facility] Mean Cell Hemoglobin Concentration 32.7 32.0 - 35.7 gm/dL [facility] Platelet 226 145 - 357 x10(3)/mc L [facility] RDW Standard Deviation 47.0(H) 36.0 - 45.0 fL [facility] RDW coefficient of variation 13.8 11.4 - 13.8 % [facility] Mean Platelet Volume 9.8 7.6 - 12.9 fL [facility] NRBC% auto 0.0 % [facility] NRBC Absolute 0.000 0.000 - 0.000 x10(3)/mc L [facility] Blood specimen (specimen) 07/02/2019 12:54 PM EDT 07/02/2019 1:12 PM EDT Narrative Resulting Agency Comment Spec In Lab Dianne Norton ENERGY PROFESSIONAL HEMATOLOGY ORDERABLE S Performing Organization Address [facility]/ZIP Co de Phone Number [facility] [place] [address] * Lyme IgG & IgM Antibody (07/02/2019 12:54 PM EDT) Lyme Antibody Neg Neg [facility] Blood specimen (specimen) 07/02/2019 12:54 PM EDT 07/03/2019 8:19 AM EDT Narrative Resulting Agency Comment Spec In Lab Dianne Norton ENERGY PROFESSIONAL IMMUNOLOGY ORDERABLE S Performing Organization Address City/[facility]/ZIP Co de Phone Number [facility] [place] [address] * (ABNORMAL) CRP, acute inflammation (07/02/2019 12:54 PM EDT) C-Reactive Protein 34.1(H) <=4.9 mg/L [facility] Blood specimen (specimen) 07/02/2019 12:54 PM EDT 07/02/2019 1:17 PM EDT Narrative Resulting Agency Comment Spec In Lab Diannelucas Norton ITA CHEMISTRY ORDERABLES Performing Organization Address City/[facility]/ZIP Co de Phone Number [facility] [place] [address] * Sedimentation rate (07/02/2019 12:54 PM EDT) Sedimentation Rate Automated 6 0 - 15 mm/hr [facility] Blood specimen (specimen) 07/02/2019 12:54 PM EDT 07/02/2019 1:12 PM EDT Narrative Resulting Agency Comment Spec In Lab Dianne Norton APRN HEMATOLOGY ORDERABLE S Performing Organization Address [facility] Co de Phone Number [facility] [place] [address] * Comprehensive metabolic panel (non-fasting) (07/02/2019 12:54 PM EDT) Glucose 103 65 - 199 mg/dL [facility] Comment:Diabetes: >=200 mg/d L plus symptoms Blood Urea Nitrogen 16 10 - 20 mg/dL [facility] Creatinine 0.99 0.80 - 1.50 mg/dL [facility] Sodium 138 135 - 145 mmol/L [facility] Potassium 4.2 3.5 - 5.0 mmol/L [facility] Comment: Please note: ??Patients with WBC >100,000 may have falsely elevated Potassium levels. ??For accurate Potassium quantification in these patients send serum separator tube (gold top) for subsequent determinations. ??Contact the Clinical Chemistry Laboratory if there are any questions. Chloride 104 98 - 107 mmol/L [facility] Carbon Dioxide 27 22 - 31 mmol/L [facility] Anion Gap 7 5 - 15 mmol/L [facility] Calcium 8.9 8.5 - 10.5 mg/dL [facility] Protein, Total 6.5 6.1 - 8.0 gm/dL [facility] Albumin 4.0 3.2 - 5.2 gm/dL [facility] Aspartate Aminotransferase 18 0 - 39 unit/L [facility] Alanine Aminotransferase 19 0 - 55 unit/L [facility] Alkaline Phosphatase 108 40 - 130 unit/L [facility] Bilirubin, Total 0.7 0.2 - 1.3 mg/dL [facility] Est Glomerular Filtration Rate 77 >=60 mL/min/1. 73 m?? [facility] Comment: The eGFR was calculated using the CKD-EPI equation. As with all creatinine based estimates of kidney function, eGFR values calculated with the CKD-EPI equation are not accurate in patients with acute kidney failure, extremes of body mass or the acutely ill. [email or web address] eGFR 89 >=60 mL/min/1. 73 m?? [facility] Comment: The eGFR was calculated using the CKD-EPI equation. As with all creatinine based estimates of kidney function, eGFR values calculated with the CKD-EPI equation are not accurate in patients with acute kidney failure, extremes of body mass or the acutely ill. [email or web address] Blood specimen (specimen) 07/02/2019 12:54 PM EDT 07/02/2019 1:17 PM EDT Narrative Resulting Agency Comment Spec In Lab Dianne Norton APRN CHEMISTRY ORDERABLES [facility] [place] [address] documented in this encounter Visit Diagnoses Diagnosis Edema of right lower extremity Edema Rheumatoid arthritis with positive rheumatoid factor, involving unspecified site Joint swelling Effusion of joint, site unspecified Edema of right lower extremity Edema documented in this encounter Care Teams Remote Broadcast Engineer Relationship Specialty Start Date End Date Arelis Michele MD [address] [place] [address] PCP - General Family Medicine 08/01/18 02/11/24 documented as of this encounter
--- OUTSIDE RECORDS SUMMARY | 2024-04-07 03:23 | XMS_ITS | Encounter Summary ---
Author Organization [facility] [place] [address] Care Team Providers Care Sexual Assault Counselor Name Role Phone Arelis Michele MD Primary Care Provider [phone] Reason for Visit * Auth/Cert Specialty Diagnoses / Procedures Referred By Contmabel t Referred To Contact Diagnoses CAD (coronary artery disease) Abnormal stress test [R94.39]/Chest discomfort [R07.89] Post-Op monitoring Procedures PRG CATH PLMT LEFT HEART CATH & ARTS W/INJ & ANGIO IMG S&I CARDIAC CATHETERIZATION CORONARY ANGIOGRAPHY; W LHC,POSSIBLE PCI Referral ID Status Reason Start Date Expiration Date Visits Re quested Visits Authorized [id number] 1 1 Encounter Details Date Type Department Care Team (Late st Contact Info) Description 03/20/2019 10:30 AM EDT - 03/20/2019 11:30 AM [place] [address] Sean Manzano II, MD [facility] [address] CARDIAC CATHETERIZATION Social History Tobacco Use Types [...] Leeanne Ybarra Patient Age: 68 y.o. Language: Palestinian Race: White Ethnicity: Not nor Admit date: [...] eye ??? Osteopenia ?? Osteopenia, DXA at [facility] in 06/2007. ?? 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 Sommers with chronic stable angina in [...] appointments: -During 8am-5pm Saturday through Saturday call [phone] to speak with a nurse in the cardiology clinic -All other times call [phone] and ask to speak to the sql server dba brazer production line. MEDICATIONS - you need to be on [...] Primary care provider: Cardiology: Arelis Michele MD [phone] Follow up as planned or as needed. Dr. Sommers Expect a call next week to schedule 4-6 week follow up appointment General Instructions None Discharge References/Attachments None DONAVAN Fonseca Interventional Cardiology 03/21/19 8:00 AM //Isael Bedoya MD Interventional Cooker Cleaner documented in this encounter Discharge Instructions * Patient Instructions* Isael Bedoya S - 03/20/2019 1:43 PM EDT Discharge Instructions following cardiac catheterization Cardiology Instructions Call your doctor if you experience: Chest pain, dyspnea, pain or swelling in legs occurs. If you have non-emergent questions between now and the time of your follow up appointments: -During 8am-5pm Saturday through Saturday call [phone] to speak with a nurse in the cardiology clinic -All other times call [phone] and ask to speak to the sql server dba brazer production line. MEDICATIONS - you need to be on [...] Primary care provider: Cardiology: Arelis Michele MD [phone] Follow up as planned or as needed. [...] to call , pt instructed to pick out hand prescriptions at preferred pharmacy, all questions answered. [...] place c/d/i. Groin site soft to palpation. night monitor applied. 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 Osteopenia ?? Osteopenia, DXA at [facility] in 06/2007. ?? Right wrist fracture [...] file Gets together: Not on file Attends nondenominational service: Not on file Active member of [...] Manzano II - 03/20/2019 1:06 PM EDT [facility] Operative Note LEEANNE YBARRA March 20, 2019 [id number] Nut Feeder - Preliminary Findings Procedures: coronary angiography left [...] Device - 3.00 x 15 mm Resolute IDNA. Deployment - premounted 10 leticia. 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 03/23/2019 12:00 AM EDT EKG 12-LEAD [...] in this encounter Results * SCAN DOC: VEGETABLE HARVEST MACHINE OPERATOR (03/23/2019 12:00 AM EDT) Anatomical Region Laterality [...] (Bezet) 443 ms MUSE SYSTEM Calculated P [place] 28 degrees MUSE SYSTEM Calculated R [place] 19 degrees MUSE SYSTEM Calculated T [place] 22 degrees MUSE SYSTEM INTERPRETATION Normal sinus rhythm Normal ECG When compared with ECG of 20-MAR-2019 14:04, Fusion complexes are no longer Present WV interval has decreased Confirmed by MD Amanda, Oseas ([id number]) on 03/21/2019 11:48:04 AM MUSE SYSTEM 03/21/2019 7:01 AM EDT 03/21/2019 11:48 AM EDT Sean Manzano II, MD ECG ORDERABLES MUSE SYSTEM * (ABNORMAL) Differential, Automated (03/21/2019 3:16 AM EDT) Neutrophil % 69.9 % [facility] Neutrophil Absolute 6.15(H) 1.70 - 6.10 x10(3)/mc L [facility] Lymph % 16.4 % [facility] Lymphocytes Abs 1.4 0.9 - 3.2 x10(3)/mc L [facility] Monocyte % 9.3 % [facility] Monocyte Abs 0.8 0.3 - 0.9 x10(3)/mc L [facility] Eos % 3.6 % [facility] Eosinophils Abs 0.3 0.0 - 0.4 x10(3)/mc L [facility] Basophil % 0.5 % [facility] Baso Absolute 0.0 0.0 - 0.1 x10(3)/mc L [facility] Immature Gran % 0.30 % [facility] Comment: Immature granulocytes(IG's)percentage and absolute count will include metamyelocytes, myelocytes, and promyelocytes. Blood smears from CBCs yielding IG's will be scanned manually for concordance. If this scan disagrees with the automated IG or if promyelocytes are noted, a manual differential will be performed. Immature Gran Absolute 0.03 0.00 - 0.04 x10(3)/mc L [facility] Blood specimen (specimen) 03/21/2019 3:16 AM EDT 03/21/2019 3:23 AM EDT Narrative Resulting Agency Comment Spec In Lab Isael Bedoya MD HEMATOLOGY ORDERABLE S Performing Organization Address City/[facility]/ZIP Co de Phone Number [facility] [place] [address] * Hemogram (03/21/2019 3:16 AM EDT) White Blood Cell 8.8 4.0 - 9.5 x10(3)/[facility] Red Blood Cell 5.34 4.58 - 5.54 x10(6)/[facility] Hemoglobin 15.9 13.7 - 16.5 gm/dL [facility] Hematocrit 46.8 40.5 - 48.5 % [facility] Mean Cell Volume 87.6 82.9 - 93.1 [facility] Mean Cell Hemoglobin 29.8 27.5 - 32.1 pg [facility] Mean Cell Hemoglobin Concentration 34.0 32.0 - 35.7 gm/dL [facility] Platelet 189 145 - 357 x10(3)/[facility] RDW Standard Deviation 43.5 36.0 - 45.0 [facility] RDW coefficient of variation 13.5 11.4 - 13.8 % [facility] Mean Platelet Volume 9.9 7.6 - 12.9 [facility] NRBC% auto 0.0 % [facility] NRBC Absolute 0.000 0.000 - 0.000 x10(3)/[facility] Blood specimen (specimen) 03/21/2019 3:16 AM EDT 03/21/2019 3:23 AM EDT Narrative Resulting Agency Comment Spec In Lab Isael Bedoya MD HEMATOLOGY ORDERABLE S [facility] [place] [address] * Lipid Panel (03/21/2019 3:16 AM EDT) Cholesterol, Total 128 mg/dL [facility] Comment: Lower Risk: <200 mg/dL Average Risk: 200-239 mg/dL Higher Risk: >hm=571 mg/dL Triglyceride 100 mg/dL [facility] Comment: Average Risk/Lower Risk: <150 mg/dL Borderline High Risk: 150-199 mg/dL High Risk: 200-499 mg/dL Very High Risk: >it=536 mg/dL HDL Cholesterol 51 mg/dL [facility] Comment: Males: ?? Higher Risk: <40 mg/dL Females: ?? HIgher Risk: <50 mg/dL LDL Cholesterol 57 mg/dL [facility] Comment: Lowest Risk: <100 mg/dL Lower Risk: 100-129 mg/dL Borderline High Risk: 130-159 mg/dL High Risk: 160-189 mg/dL Very High Risk: >kc=911 mg/dL Cholesterol/HDL Ratio 2.5 ratio [facility] Lipid Interpretation See Note [facility] Comment: Lipid management should be guided by a patient? s ASCVD risk, goals and preferences. ACC/AHA Guidelines recommend high intensity statin if clinical ASCVD or LDL greater than or equal to 190 mg/dL. http://[employer].com/FOH-AIB-Yxahgsrth Adults aged 40-75 with LDL 70-189 mg/dL should have their 10 year ASCVD risk estimated with the ACC/AHA ASCVD risk airplane cleaner http://tools.acc.org/YABUP-Qpvy-Vesvwnuzm/ Statin should be discussed if risk greater [...] Sean Manzano II, MD CHEMISTRY ORDER DARIAN [facility] [place] [address] * BMP w/fasting Glucose (03/21/2019 3:16 AM EDT) Glucose Fasting 81 65 - 99 mg/dL [facility] Comment: ?Fasting* Glucose Interpretive Criteria Normal [...] of Diabetes Mellitus, Position Statement from the [place] [employer]. ??Diabetes Care, Volume 33, Supplement 1, Sep 2009 Blood Urea Nitrogen 14 10 - 20 mg/dL [facility] Creatinine 0.97 0.80 - 1.50 mg/dL [facility] Sodium 139 135 - 145 mmol/L [facility] Potassium 4.0 3.5 - 5.0 mmol/L [facility] Comment: Please note: ??Patients with WBC >100,000 may have falsely elevated Potassium levels. ??For accurate Potassium quantification in these patients send serum separator tube (gold top) for subsequent determinations. ??Contact the Clinical Chemistry Laboratory if there are any questions. Chloride 104 98 - 107 mmol/L [facility] Carbon Dioxide 24 22 - 31 mmol/L [facility] Anion Gap 11 5 - 15 mmol/L [facility] Calcium 8.8 8.5 - 10.5 mg/dL [facility] Est Glomerular Filtration Rate 79 >=60 mL/min/1. 73 m?? [facility] Comment: The eGFR was calculated using the CKD-EPI equation. As with all creatinine based estimates of kidney function, eGFR values calculated with the CKD-EPI equation are not accurate in patients with acute kidney failure, extremes of body mass or the acutely ill. http://[employer]/[facility] eGFR 91 >=60 mL/min/1. 73 m?? [facility] Comment: The eGFR was calculated using the CKD-EPI equation. As with all creatinine based estimates of kidney function, eGFR values calculated with the CKD-EPI equation are not accurate in patients with acute kidney failure, extremes of body mass or the acutely ill. http://[employer]/[facility]nkf Blood specimen (specimen) 03/21/2019 3:16 AM EDT 03/21/2019 3:23 AM EDT Narrative Resulting Agency Comment Spec In Lab Sean Manzano II, MD CHEMISTRY ORDER DARIAN [facility] [place] [address] * EKG 12 Lead (03/20/2019 2:04 PM EDT) Ventricular rate 59 BPM MUSE SYSTEM Atrial Rate 59 BPM MUSE SYSTEM P-R Interval 236 ms MUSE SYSTEM QRS Duration 110 ms MUSE SYSTEM Q-T Interval 418 ms MUSE SYSTEM QTC Calculated (Bezet) 413 ms MUSE SYSTEM Calculated P [place] 48 degrees MUSE SYSTEM Calculated R [place] 2 degrees MUSE SYSTEM Calculated T [place] 27 degrees MUSE SYSTEM INTERPRETATION Sinus bradycardia with 1st degree A-V block with Fusion complexes Otherwise normal ECG When compared with ECG of 20-MAR-2019 10:26, Fusion complexes are now Present WV interval has increased Confirmed by MD Posey Megan ([id number]) on 03/20/2019 6:27:11 PM MUSE SYSTEM 03/20/2019 2:04 PM EDT 03/20/2019 6:27 PM EDT Sean Manzano II, MD ECG ORDERABLES Performing Organization Address City/[facility] Co de Phone Number MUSE SYSTEM * EKG 12 Lead (03/20/2019 10:26 AM EDT) Ventricular rate 64 BPM MUSE SYSTEM Atrial Rate 64 BPM MUSE SYSTEM P-R Interval 206 ms MUSE SYSTEM QRS Duration 116 ms MUSE SYSTEM Q-T Interval 402 ms MUSE SYSTEM QTC Calculated (Bezet) 414 ms MUSE SYSTEM Calculated P [place] 19 degrees MUSE SYSTEM Calculated R [place] 8 degrees MUSE SYSTEM Calculated T [place] 28 degrees MUSE SYSTEM INTERPRETATION Normal sinus rhythm Normal ECG When compared with ECG of 16-FEB-2019 10:55, No significant change was found Confirmed by MD Taty, Mely ([id number]) on 03/20/2019 6:27:09 PM MUSE SYSTEM 03/20/2019 10:2 6 AM EDT 03/20/2019 6:27 PM EDT Syed Garcia MD ECG ORDERABLES Performing Organization Address [facility] Co de Phone Number MUSE SYSTEM * Differential, Automated (03/20/2019 9:47 AM EDT) Neutrophil % 55.1 % [facility] Neutrophil Absolute 3.84 1.70 - 6.10 x10(3)/[facility] Lymph % 31.3 % [facility] Lymphocytes Abs 2.2 0.9 - 3.2 x10(3)/[facility] Monocyte % 8.7 % [facility] Monocyte Abs 0.6 0.3 - 0.9 x10(3)/[facility] Eos % 4.4 % [facility] Eosinophils Abs 0.3 0.0 - 0.4 x10(3)/[facility] Basophil % 0.4 % [facility] Baso Absolute 0.0 0.0 - 0.1 x10(3)/[facility] Immature Gran % 0.10 % [facility] Comment: Immature granulocytes(IG's)percentage and absolute count will include metamyelocytes, myelocytes, and promyelocytes. Blood smears from CBCs yielding IG's will be scanned manually for concordance. If this scan disagrees with the automated IG or if promyelocytes are noted, a manual differential will be performed. Immature Gran Absolute 0.01 0.00 - 0.04 x10(3)/mcL [facility] Blood specimen (specimen) 03/20/2019 9:47 AM EDT 03/20/2019 10:01 AM EDT Narrative Resulting Agency Comment Spec In Lab [place] GO HEMATOLOGY ORDERABLE S [facility] [place] [address] * (ABNORMAL) Hemogram (03/20/2019 9:47 AM EDT) White Blood Cell 7.0 4.0 - 9.5 x10(3)/[facility] Red Blood Cell 5.66(H) 4.58 - 5.54 x10(6)/[facility] Hemoglobin 16.7(H) 13.7 - 16.5 gm/dL [facility] Hematocrit 52.1(H) 40.5 - 48.5 % [facility] Mean Cell Volume 92.0 82.9 - 93.1 [facility] Mean Cell Hemoglobin 29.5 27.5 - 32.1 pg [facility] Mean Cell Hemoglobin Concentration 32.1 32.0 - 35.7 gm/dL [facility] Platelet 225 145 - 357 x10(3)/[facility] RDW Standard Deviation 46.8(H) 36.0 - 45.0 [facility] RDW coefficient of variation 13.8 11.4 - 13.8 % [facility] Mean Platelet Volume 9.8 7.6 - 12.9 [facility] NRBC% auto 0.0 % [facility] NRBC Absolute 0.000 0.000 - 0.000 x10(3)/mc L [facility] Blood specimen (specimen) 03/20/2019 9:47 AM EDT 03/20/2019 10:01 AM EDT Narrative Resulting Agency Comment Spec In Lab [place] GO HEMATOLOGY ORDERABLE S [facility] [place] [address] * (ABNORMAL) BMP w/fasting Glucose (03/20/2019 9:47 AM EDT) Glucose Fasting 104(H) 65 - 99 mg/dL [facility] Comment: ?Fasting* Glucose Interpretive Criteria Normal [...] of Diabetes Mellitus, Position Statement from the [place] [employer]. ??Diabetes Care, Volume 33, Supplement 1, Sep 2009 Blood Urea Nitrogen 19 10 - 20 mg/dL [facility] Creatinine 1.10 0.80 - 1.50 mg/dL [facility] Sodium 141 135 - 145 mmol/L [facility] Potassium 4.4 3.5 - 5.0 mmol/L [facility] Comment: Please note: ??Patients with WBC >100,000 may have falsely elevated Potassium levels. ??For accurate Potassium quantification in these patients send serum separator tube (gold top) for subsequent determinations. ??Contact the Clinical Chemistry Laboratory if there are any questions. Chloride 104 98 - 107 mmol/L [facility] Carbon Dioxide 27 22 - 31 mmol/L [facility] Anion Gap 10 5 - 15 mmol/L [facility] Calcium 9.5 8.5 - 10.5 mg/dL [facility] Est Glomerular Filtration Rate 68 >=60 mL/min/1. 73 m?? [facility] Comment: The eGFR was calculated using the CKD-EPI equation. As with all creatinine based estimates of kidney function, eGFR values calculated with the CKD-EPI equation are not accurate in patients with acute kidney failure, extremes of body mass or the acutely ill. http://[employer]/[facility]nkf eGFR 78 >=60 mL/min/1. 73 m?? [facility] Comment: The eGFR was calculated using the CKD-EPI equation. As with all creatinine based estimates of kidney function, eGFR values calculated with the CKD-EPI equation are not accurate in patients with acute kidney failure, extremes of body mass or the acutely ill. http://[facility] Blood specimen (specimen) 03/20/2019 9:47 AM EDT 03/20/2019 10:01 AM EDT Narrative Resulting Agency Comment Spec In Lab Syed Garcia MD CHEMISTRY ORDERABLES [facility] [place] [address] documented in this encounter Visit Diagnoses Diagnosis Abnormal stress test Other nonspecific abnormal cardiovascular system function study Chest discomfort Other chest pain Abnormal stress test Other nonspecific abnormal cardiovascular system function study Chest discomfort Other chest pain documented in this encounter Admitting Diagnoses Diagnosis CAD (coronary artery disease) Coronary atherosclerosis of unspecified type of vessel, [place] or graft documented in this encounter Administered [...] 1345 (New Bag - Provider: Miranda Quintanilla, ASHLEY) PRN Medication Order 03/19/2019 03/20/2019 03/21/2019 acetaminophen [...] (Intra-Procedure), Routine 1203 (Given - Provider: Kalen Maen) fentaNYL 50 mcg/mL multi-dose injection (CANCELED) ONCE [...] II) documented in this encounter Care Teams Sexual Assault Counselor Relationship Specialty Start Date End Date Arelis Michele MD [address] [place] [address] PCP - General Family Medicine 08/01/18 02/11/24 documented as of this encounter
--- OUTSIDE RECORDS SUMMARY | 2024-04-07 03:23 | XMS_ITS | Encounter Summary ---
Author Organization [facility] [place] [address] Care Team Providers Care Manager Tax Name Role Phone Arelis Michele MD Primary Care Provider [phone] Reason for Referral * Diagnostic Test (Routine) - Closed Specialty Diagnoses / Procedures Referred By Contac t Referred To Contact Radiology Diagnoses Right leg swelling Injury of right lower extremity, subsequent encounter Procedures MRI Knee wo Contrast Right (Generic) Dianne Norton APRN [facility] [place] [address] [place] [address] Referral ID Status Reason Start Date Expiration Date V isits Requested Visits Authorized [id number] Closed Specialty Service Requested 07/22/2019 07/21/2020 1 1 Reason for Visit * Diagnostic Test (Routine) - Closed Specialty Diagnoses / Procedures Referred By Contac t Referred To Contact Radiology Diagnoses Right leg swelling Injury of right lower extremity, subsequent encounter Procedures MRI Knee wo Contrast Right (Generic) Dianne Norton APRN [facility] [place] [address] [place] [address] Referral ID Status Reason Start Date Expiration Date V isits Requested Visits Authorized [id number] Closed Specialty Service Requested 07/22/2019 07/21/2020 1 1 Encounter Details Date Type Department Care Team (Latest Contact Info) Description 08/10/2019 12:00 PM EST - 08/10/2019 11:59 PM EST Hospital Encounter MRI at [facility] [place] [address] Dianne Norton, ITA [facility] [place] [address] Right leg swelling; Injury of right lower [...] 12:00 PM EDT [place]ointment [place] [address] documented as of this encounter Procedures Procedure [...] below. ? Electronically signed by: FINA Brown [facility] ([phone]), at 08/10/2019 5:05 PM Narrative 08/10/2019 5:05 [...] cartilage in the patellofemoral compartment since the [id number]-sa-[id number] was optimized to evaluate a hematoma in [...] cartilage in the patellofemoral compartment since the [id number]-cy-jbah was optimized to evaluate a hematoma in [...] please contact the number below. Dianne Norton HEARING AID REPAIRER IMG MRI ORDERABLES documented in this encounter Visit Diagnoses Diagnosis Right leg swelling Injury of right lower extremity, subsequent encounter documented in this encounter Care Teams Manager Tax Relationship Specialty Start Date End Date Arelis Michele MD [address] [place] [address] PCP - General Family Medicine 08/01/18 02/11/24 documented as of this encounter
--- OUTSIDE RECORDS SUMMARY | 2024-04-07 03:23 | XMS_ITS | Encounter Summary ---
[place] [address] Care Team Providers Care Research Home Economist Name Role Phone Arelis Michele MD Primary Care Provider [phone] Encounter Details Date Type Department Care Team (Late st Contact Info) Description 09/30/2019 9:15 AM EST - 09/30/2019 10:00 AM EST Surgery [place] [address] Solitario Moody MD [facility] [place] [address] COLONOSCOPY, DIAGNOSTIC (WRVU 3.26) Social History Tobacco [...] sent through Care Everywhere. * Colonoscopy: Post-op (Swiss) documented in this encounter Medications at Time [...] Moody MD - 09/30/2019 10:18 AM EST [facility] [place] Patient Name: Wesly Ybarra : [id number] MR#: [id number] Case Date: 09/30/2019 Surgeon: Surgeon(s) and Role: [...] 12:00 PM EDT Appointment [place] [address] documented as of this encounter Procedures Procedure Name Priority Date/Time Associated Diagnosis Comments SPECIMEN TO PATHOLOGY Routine 09/30/2019 10:14 AM EST SPECIMEN TO PATHOLOGY Routine 09/30/2019 10:14 AM EST SPECIMEN TO PATHOLOGY Routine 09/30/2019 10:14 AM EST SURGICAL PATHOLOGY REPORT Routine 09/30/2019 9:57 AM EST Colonoscopy, Remv Lesn, Snare ([id number]) 09/30/2019 9:38 AM EST Recommend repeat colonoscopy in 3-6 months to confirm complete polyp resection depending on pathology. Colonoscopy, Diagnostic ([id number]) 09/30/2019 9:38 AM EST Recommend repeat colonoscopy in 3-6 months to confirm complete polyp resection depending on pathology. COLONOSCOPY Routine 09/30/2019 9:26 AM EST documented in this encounter Results * Specimen to Pathology (09/30/2019 10:14 AM EST) AP Specimen 09/30/2019 10:1 4 AM EST 09/30/2019 10:14 AM EST Narrative [facility] - 09/30/2019 10:14 AM EST Specimen requisition ordered. ??Separate Pathology report to follow Solitario Moody MD PATHOLOGY/CYTOLOGY O NANCY [facility] [place] [address] * Specimen to Pathology (09/30/2019 10:14 AM EST) AP Specimen 09/30/2019 10:1 4 AM EST 09/30/2019 10:14 AM EST Narrative [facility] - 09/30/2019 10:14 AM EST Specimen requisition ordered. ??Separate Pathology report to follow Solitario Moody MD PATHOLOGY/CYTOLOGY O NANCY [facility] [place] [address] * Specimen to Pathology (09/30/2019 10:14 AM EST) AP Specimen 09/30/2019 10:1 4 AM EST 09/30/2019 10:14 AM EST Narrative [facility] - 09/30/2019 10:14 AM EST Specimen requisition ordered. ??Separate Pathology report to follow Solitario Moody MD PATHOLOGY/CYTOLOGY O RDERAJEANINE [facility] [place] [address] * Surgical Pathology Report (09/30/2019 9:57 AM EST) Final Diagnosis [id number] ? Location: 4T; EA10; A The signing pathologist has (i) examined the relevant preparation(s) for the specimen(s) and (ii) rendered or confirmed the diagnosis(es). . ?Surgical Pathology DIAGNOSIS A - Ascending colon, polypectomy: Tubular adenoma. B - Transverse colon, polypectomy: Tubular adenoma. C - Rectosigmoid colon, polypectomy: Benign mucosal prolapse polyp. CR-PX Electronically signed by: ??Biju Adorno MD Verified: ??10/02/2019 ?Pathologist Performed at: ??-[facility] [place], [place], [place] CLINICAL INFORMATION Specimen Submitted: A - [...] labeled C1. ??apb 10/02/2019 10:53 AM EST [facility] GI Biopsy 09/30/2019 9:57 AM EST 09/30/2019 9:57 AM EST GI Biopsy 09/30/2019 9:57 AM EST 09/30/2019 9:57 AM EST GI Biopsy 09/30/2019 9:57 AM EST 09/30/2019 9:57 AM EST Solitario Moody MD PATHOLOGY/CYTOLOGY O RDERABLES [facility] [place] [address] * COLONOSCOPY (09/30/2019 9:26 AM EST) COLONOSCOPY [facility] Endoscopy Procedure Date: 09/30/2019 9:26 AM ? Patient Name: Wesly Ybarra ? N: [id number] ? Date of : 1950 ? Age: 68 ? Order #: [id number] ? Instrument Name: [id number] ? Procedure: ? Colonoscopy Indications: ? High [...] EST Arelis Michele MD GENERAL SURGICAL ORD [facility] Performing Organization Address City/State/[facility] Co de Phone Number PROVATION documented in [...] CRNA) documented in this encounter Care Teams Research Home Economist Relationship Specialty Start Date End Date Arelis Michele MD [phone] PCP - General Family Medicine 08/01/18 02/11/24 documented as of this encounter
--- OUTSIDE RECORDS SUMMARY | 2024-04-07 03:23 | XMS_ITS | Encounter Summary ---
[place] [address] Care Team Providers Care Bulb Packer Name Role Phone Arelis Michele MD Primary Care Provider [phone] Encounter Details Date Type Department Care Team (Latest Contact Info) Description 09/30/2019 8:20 AM EST - 09/30/2019 10:57 AM EST Hospital Encounter [place] [address] Solitario Moody MD [facility] [place] [address] Discharge Disposition: Home Social History Tobacco Use [...] sent through Care Everywhere. * Colonoscopy: Post-op (Equ[place]an) documented in this encounter Medications at [...] Moody MD - 09/30/2019 10:18 AM EST [facility] [place] Note Patient Name: Wesly Ybarra : [id number] MR#: [id number] Case Date: 09/30/2019 Surgeon: Surgeon(s) and Role: [...] 12:00 PM EDT Appointment [place] [address] documented as of this encounter Procedures Procedure Name Priority Date/Time Associated Diagnosis Comments SPECIMEN TO PATHOLOGY Routine 09/30/2019 10:14 AM EST SPECIMEN TO PATHOLOGY Routine 09/30/2019 10:14 AM EST SPECIMEN TO PATHOLOGY Routine 09/30/2019 10:14 AM EST SURGICAL PATHOLOGY REPORT Routine 09/30/2019 9:57 AM EST Colonoscopy, Remv Lesn, Snare ([id number]) 09/30/2019 9:38 AM EST Recommend repeat colonoscopy in 3-6 months to confirm complete polyp resection depending on pathology. Colonoscopy, Diagnostic ([id number]) 09/30/2019 9:38 AM EST Recommend repeat colonoscopy in 3-6 months to confirm complete polyp resection depending on pathology. COLONOSCOPY Routine 09/30/2019 9:26 AM EST documented in this encounter Results * Specimen to Pathology (09/30/2019 10:14 AM EST) AP Specimen 09/30/2019 10:1 4 AM EST 09/30/2019 10:14 AM EST Narrative [facility] - 09/30/2019 10:14 AM EST Specimen requisition ordered. ??Separate Pathology report to follow Solitario Moody MD PATHOLOGY/CYTOLOGY O NANCY [facility] [place] [address] * Specimen to Pathology (09/30/2019 10:14 AM EST) AP Specimen 09/30/2019 10:1 4 AM EST 09/30/2019 10:14 AM EST Narrative [facility] - 09/30/2019 10:14 AM EST Specimen requisition ordered. ??Separate Pathology report to follow Solitario Moody MD PATHOLOGY/CYTOLOGY O NANCY [facility] [place] [address] * Specimen to Pathology (09/30/2019 10:14 AM EST) AP Specimen 09/30/2019 10:1 4 AM EST 09/30/2019 10:14 AM EST Narrative [facility] - 09/30/2019 10:14 AM EST Specimen requisition ordered. ??Separate Pathology report to follow Solitario Moody MD PATHOLOGY/CYTOLOGY O RDERABLES [facility] [place] [address] * Surgical Pathology Report (09/30/2019 9:57 AM EST) Final Diagnosis [id number] ? Location: 4T; EA10; A The signing pathologist has (i) examined the relevant preparation(s) for the specimen(s) and (ii) rendered or confirmed the diagnosis(es). . ?Surgical Pathology DIAGNOSIS A - Ascending colon, polypectomy: Tubular adenoma. B - Transverse colon, polypectomy: Tubular adenoma. C - Rectosigmoid colon, polypectomy: Benign mucosal prolapse polyp. CR-PX Electronically signed by: ??Biju Adorno MD Verified: ??10/02/2019 ?Pathologist Performed at: ??-[facility] [place] Dept. of Pathology, [place], [place] CLINICAL INFORMATION Specimen Submitted: A - [...] labeled C1. ??apb 10/02/2019 10:53 AM EST [facility] GI Biopsy 09/30/2019 9:57 AM EST 09/30/2019 9:57 AM EST GI Biopsy 09/30/2019 9:57 AM EST 09/30/2019 9:57 AM EST GI Biopsy 09/30/2019 9:57 AM EST 09/30/2019 9:57 AM EST Solitario Moody MD PATHOLOGY/CYTOLOGY O RDERAJEANINE [facility] [place] [address] * COLONOSCOPY (09/30/2019 9:26 AM EST) COLONOSCOPY [facility] Endoscopy Procedure Date: 09/30/2019 9:26 AM ? Patient Name: Wesly Ybarra ? N: [id number] ? Date of : 1950 ? Age: 68 ? Order #: [id number] ? Instrument Name: [id number] ? Procedure: ? Colonoscopy Indications: ? High [...] CRNA) documented in this encounter Care Teams Bulb Packer Relationship Specialty Start Date End Date Arelis Michele MD [address] [place] [address] PCP - General Family Medicine 08/01/18 02/11/24 documented as of this encounter
--- OUTSIDE RECORDS SUMMARY | 2024-04-07 03:23 | XMS_ITS | Encounter Summary ---
Author Organization Formerly [facility] [place] [address] Care Team Providers Care Fisher Spear Name Role Phone Arelis Michele MD Primary Care Provider [phone] Reason for Visit * Auth/Cert Specialty Diagnoses / Procedures Referred By Contmabel t Referred To Contact Diagnoses CAD (coronary artery disease) Abnormal stress test [R94.39]/Chest discomfort [R07.89] Post-Op monitoring Procedures PRG CATH PLMT LEFT HEART CATH & ARTS W/INJ & ANGIO IMG S&I CARDIAC CATHETERIZATION CORONARY ANGIOGRAPHY; W LHC,POSSIBLE PCI Referral ID Status Reason Start Date Expiration Date Visits Re quested Visits Authorized [id number] 1 1 Encounter Details Date Type Department Care Team (Late st Contact Info) Description 03/20/2019 9:30 AM EDT - 03/21/2019 9:40 AM EDT Hospital Encounter [place] [address] Sean Manzano II, MD [facility] [address] Abnormal stress test; Chest discomfort Discharge Disposition: [...] Leeanne Ybarra Patient Age: 68 y.o. Language: [place] Race: White Ethnicity: Not nor Admit date: [...] eye ??? Osteopenia ?? Osteopenia, DXA at [facility] in 06/2007. ?? Right wrist [...] regional WMA's) who presented to his primary solution advisor Dr. Sommers with chronic stable angina in [...] appointments: -During 8am-5pm Saturday through Saturday call [phone] to speak with a nurse in the cardiology clinic -All other times call [phone] and ask to speak to the ux architect direct service professional. MEDICATIONS - you need to be on [...] Primary care provider: Cardiology: Arelis Michele MD [phone] Follow up as planned or as needed. Dr. Sommers Expect a call next week to schedule 4-6 week follow up appointment General Instructions None Discharge References/Attachments None DONAVAN Fonseca Interventional Cardiology 03/21/19 8:00 AM //Isael Bedoya MD Interventional Licensed Club Manager documented in this encounter Discharge Instructions * Patient Instructions* Isael Bedoya S - 03/20/2019 1:43 PM EDT Discharge Instructions following cardiac catheterization Cardiology Instructions Call your doctor if you experience: Chest pain, dyspnea, pain or swelling in legs occurs. If you have non-emergent questions between now and the time of your follow up appointments: -During 8am-5pm Saturday through Saturday call [phone] to speak with a nurse in the cardiology clinic -All other times call [phone] and ask to speak to the ux architect direct service professional. MEDICATIONS - you need to be on [...] Primary care provider: Cardiology: Arelis Michele MD [phone] Follow up as planned or as needed. [...] to call , pt instructed to pick pulling machine operator prescriptions at preferred pharmacy, all questions [...] place c/d/i. Groin site soft to palpation. manager lean applied. 03/20/19 1521 Adult Vital Signs Temp [...] regional WMA's) who presented to his primary solution advisor Dr. 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 Osteopenia ?? Osteopenia, DXA at [facility] in 06/2007. ?? Right wrist [...] file Gets together: Not on file Attends caodaism service: Not on file Active member of [...] Manzano II - 03/20/2019 1:06 PM EDT [facility] Operative Note LEEANNE YBARRA March 20, 2019 [id number] Disassembler - Preliminary Findings Procedures: coronary angiography left [...] 12:00 PM EDT Appointment [place] [id number] documented as of this encounter Procedures Procedure Name Priority Date/Time Associated Diagnosis Comments ELEMENTARY ASSISTANT PRINCIPAL SCAN 03/23/2019 12:00 AM EDT EKG 12-LEAD [...] in this encounter Results * SCAN DOC: ELEMENTARY ASSISTANT PRINCIPAL (03/23/2019 12:00 AM EDT) Anatomical Region Laterality [...] (Bezet) 443 ms MUSE SYSTEM Calculated P Warner 28 degrees MUSE SYSTEM Calculated R Warner 19 degrees MUSE SYSTEM Calculated T Warner 22 degrees MUSE SYSTEM INTERPRETATION Normal sinus rhythm Normal ECG When compared with ECG of 20-MAR-2019 14:04, Fusion complexes are no longer Present VT interval has decreased Confirmed by MD Amanda, Oseas ([id number]) on 03/21/2019 11:48:04 AM MUSE SYSTEM 03/21/2019 7:01 AM EDT 03/21/2019 11:48 AM EDT Sean Manzano II, MD ECG ORDERABLES MUSE SYSTEM * (ABNORMAL) Differential, Automated (03/21/2019 3:16 AM EDT) Neutrophil % 69.9 % [facility] Neutrophil Absolute 6.15(H) 1.70 - 6.10 x10(3)/mc L [facility] Lymph % 16.4 % [facility] Lymphocytes Abs 1.4 0.9 - 3.2 x10(3)/mc L [facility] Monocyte % 9.3 % [facility] Monocyte Abs 0.8 0.3 - 0.9 x10(3)/mc L [facility] Eos % 3.6 % [facility] Eosinophils Abs 0.3 0.0 - 0.4 x10(3)/mc L [facility] Basophil % 0.5 % [facility] Baso Absolute 0.0 0.0 - 0.1 x10(3)/mc L [facility] Immature Gran % 0.30 % [facility] Comment: Immature granulocytes(IG's)percentage and absolute count will include metamyelocytes, myelocytes, and promyelocytes. Blood smears from CBCs yielding IG's will be scanned manually for concordance. If this scan disagrees with the automated IG or if promyelocytes are noted, a manual differential will be performed. Immature Gran Absolute 0.03 0.00 - 0.04 x10(3)/mc L [facility] Blood specimen (specimen) 03/21/2019 3:16 AM EDT 03/21/2019 3:23 AM EDT Narrative Resulting Agency Comment Spec In Lab Isael Bedoya MD HEMATOLOGY ORDERABLE S [facility] [place] [address] * Hemogram (03/21/2019 3:16 AM EDT) White Blood Cell 8.8 4.0 - 9.5 x10(3)/[facility] Red Blood Cell 5.34 4.58 - 5.54 x10(6)/[facility] Hemoglobin 15.9 13.7 - 16.5 gm/dL [facility] Hematocrit 46.8 40.5 - 48.5 % [facility] Mean Cell Volume 87.6 82.9 - 93.1 [facility] Mean Cell Hemoglobin 29.8 27.5 - 32.1 pg [facility] Mean Cell Hemoglobin Concentration 34.0 32.0 - 35.7 gm/dL [facility] Platelet 189 145 - 357 x10(3)/[facility] RDW Standard Deviation 43.5 36.0 - 45.0 [facility] RDW coefficient of variation 13.5 11.4 - 13.8 % [facility] Mean Platelet Volume 9.9 7.6 - 12.9 [facility] NRBC% auto 0.0 % [facility] NRBC Absolute 0.000 0.000 - 0.000 x10(3)/[facility] Blood specimen (specimen) 03/21/2019 3:16 AM EDT 03/21/2019 3:23 AM EDT Narrative Resulting Agency Comment Spec In Lab Isael Bedoya MD HEMATOLOGY ORDERABLE S [facility] [place] [address] * Lipid Panel (03/21/2019 3:16 AM EDT) Cholesterol, Total 128 mg/dL [facility] Comment: Lower Risk: <200 mg/dL Average Risk: 200-239 mg/dL Higher Risk: >yd=541 mg/dL Triglyceride 100 mg/dL [facility] Comment: Average Risk/Lower Risk: <150 mg/dL Borderline High Risk: 150-199 mg/dL High Risk: 200-499 mg/dL Very High Risk: >ov=562 mg/dL HDL Cholesterol 51 mg/dL [facility] Comment: Males: ?? Higher Risk: <40 mg/dL Females: ?? HIgher Risk: <50 mg/dL LDL Cholesterol 57 mg/dL [facility] Comment: Lowest Risk: <100 mg/dL Lower Risk: 100-129 mg/dL Borderline High Risk: 130-159 mg/dL High Risk: 160-189 mg/dL Very High Risk: >wv=637 mg/dL Cholesterol/HDL Ratio 2.5 ratio [facility] Lipid Interpretation See Note [facility] Comment: Lipid management should be guided by a patient? s ASCVD risk, goals and preferences. ACC/AHA Guidelines recommend high intensity statin if clinical ASCVD or LDL greater than or equal to 190 mg/dL. http://[employer].com/XMA-FWH-Gkooaojyj Adults aged 40-75 with LDL 70-189 mg/dL should have their 10 year ASCVD risk estimated with the ACC/AHA ASCVD risk upholstery estimator http://tools.acc.org/WEAAO-Agze-Suypejhwq/ Statin should be discussed if risk greater [...] Sean Manzano II, MD CHEMISTRY ORDER DARIAN [facility] [place] [address] * BMP w/fasting Glucose (03/21/2019 3:16 AM EDT) Glucose Fasting 81 65 - 99 mg/dL [facility] Comment: ?Fasting* Glucose Interpretive [...] of Diabetes Mellitus, Position Statement from the [place] Diabetes Association. ??Diabetes Care, Volume 33, Supplement 1, Sep 2009 Blood Urea Nitrogen 14 10 - 20 mg/dL [facility] Creatinine 0.97 0.80 - 1.50 mg/dL [facility] Sodium 139 135 - 145 mmol/L [facility] Potassium 4.0 3.5 - 5.0 mmol/L [facility] Comment: Please note: ??Patients with WBC >100,000 may have falsely elevated Potassium levels. ??For accurate Potassium quantification in these patients send serum separator tube (gold top) for subsequent determinations. ??Contact the Clinical Chemistry Laboratory if there are any questions. Chloride 104 98 - 107 mmol/L [facility] Carbon Dioxide 24 22 - 31 mmol/L [facility] Anion Gap 11 5 - 15 mmol/L [facility] Calcium 8.8 8.5 - 10.5 mg/dL [facility] Est Glomerular Filtration Rate 79 >=60 mL/min/1. 73 m?? [facility] Comment: The eGFR was calculated using the CKD-EPI equation. As with all creatinine based estimates of kidney function, eGFR values calculated with the CKD-EPI equation are not accurate in patients with acute kidney failure, extremes of body mass or the acutely ill. [email or web address]MANnkf eGFR 91 >=60 mL/min/1. 73 m?? [facility] Comment: The eGFR was calculated using the CKD-EPI equation. As with all creatinine based estimates of kidney function, eGFR values calculated with the CKD-EPI equation are not accurate in patients with acute kidney failure, extremes of body mass or the acutely ill. [email or web address]MANnkf Blood specimen (specimen) 03/21/2019 3:16 AM EDT 03/21/2019 3:23 AM EDT Narrative Resulting Agency Comment Spec In Lab Sean Manzano II, MD CHEMISTRY ORDER DARIAN [facility] [place] [address] * EKG 12 Lead (03/20/2019 2:04 PM EDT) Ventricular rate 59 BPM MUSE SYSTEM Atrial Rate 59 BPM MUSE SYSTEM P-R Interval 236 ms MUSE SYSTEM QRS Duration 110 ms MUSE SYSTEM Q-T Interval 418 ms MUSE SYSTEM QTC Calculated (Bezet) 413 ms MUSE SYSTEM Calculated P Warner 48 degrees MUSE SYSTEM Calculated R Warner 2 degrees MUSE SYSTEM Calculated T Warner 27 degrees MUSE SYSTEM INTERPRETATION Sinus bradycardia with 1st degree A-V block with Fusion complexes Otherwise normal ECG When compared with ECG of 20-MAR-2019 10:26, Fusion complexes are now Present VT interval has increased Confirmed by MD Posey Megan ([id number]) on 03/20/2019 6:27:11 PM MUSE SYSTEM 03/20/2019 2:04 PM EDT 03/20/2019 6:27 PM EDT Sean Manzano II, MD ECG ORDERABLES Performing Organization Address City/[facility] Co de Phone Number MUSE SYSTEM * EKG 12 Lead (03/20/2019 10:26 AM EDT) Ventricular rate 64 BPM MUSE SYSTEM Atrial Rate 64 BPM MUSE SYSTEM P-R Interval 206 ms MUSE SYSTEM QRS Duration 116 ms MUSE SYSTEM Q-T Interval 402 ms MUSE SYSTEM QTC Calculated (Bezet) 414 ms MUSE SYSTEM Calculated P Warner 19 degrees MUSE SYSTEM Calculated R Warner 8 degrees MUSE SYSTEM Calculated T Warner 28 degrees MUSE SYSTEM INTERPRETATION Normal sinus rhythm Normal ECG When compared with ECG of 16-FEB-2019 10:55, No significant change was found Confirmed by MD Taty, Mely ([id number]) on 03/20/2019 6:27:09 PM MUSE SYSTEM 03/20/2019 10:2 6 AM EDT 03/20/2019 6:27 PM EDT Syed Garcia MD ECG ORDERABLES Performing Organization Address [facility] Co de Phone Number MUSE SYSTEM * Differential, Automated (03/20/2019 9:47 AM EDT) Neutrophil % 55.1 % [facility] Neutrophil Absolute 3.84 1.70 - 6.10 x10(3)/[facility] Lymph % 31.3 % [facility] Lymphocytes Abs 2.2 0.9 - 3.2 x10(3)/[facility] Monocyte % 8.7 % [facility] Monocyte Abs 0.6 0.3 - 0.9 x10(3)/[facility] Eos % 4.4 % [facility] Eosinophils Abs 0.3 0.0 - 0.4 x10(3)/[facility] Basophil % 0.4 % [facility] Baso Absolute 0.0 0.0 - 0.1 x10(3)/[facility] Immature Gran % 0.10 % [facility] Comment: Immature granulocytes(IG's)percentage and absolute count will include metamyelocytes, myelocytes, and promyelocytes. Blood smears from CBCs yielding IG's will be scanned manually for concordance. If this scan disagrees with the automated IG or if promyelocytes are noted, a manual differential will be performed. Immature Gran Absolute 0.01 0.00 - 0.04 x10(3)/[facility] Blood specimen (specimen) 03/20/2019 9:47 AM EDT 03/20/2019 10:01 AM EDT Narrative Resulting Agency Comment Spec In Lab [place] GO HEMATOLOGY ORDERABLE S [facility] [place] [address] * (ABNORMAL) Hemogram (03/20/2019 9:47 AM EDT) White Blood Cell 7.0 4.0 - 9.5 x10(3)/[facility] Red Blood Cell 5.66(H) 4.58 - 5.54 x10(6)/[facility] Hemoglobin 16.7(H) 13.7 - 16.5 gm/dL [facility] Hematocrit 52.1(H) 40.5 - 48.5 % [facility] Mean Cell Volume 92.0 82.9 - 93.1 fL [facility] Mean Cell Hemoglobin 29.5 27.5 - 32.1 pg [facility] Mean Cell Hemoglobin Concentration 32.1 32.0 - 35.7 gm/dL [facility] Platelet 225 145 - 357 x10(3)/[facility] RDW Standard Deviation 46.8(H) 36.0 - 45.0 [facility] RDW coefficient of variation 13.8 11.4 - 13.8 % [facility] Mean Platelet Volume 9.8 7.6 - 12.9 [facility] NRBC% auto 0.0 % [facility] NRBC Absolute 0.000 0.000 - 0.000 x10(3)/mc L [facility] Blood specimen (specimen) 03/20/2019 9:47 AM EDT 03/20/2019 10:01 AM EDT Narrative Resulting Agency Comment Spec In Lab [place] HEMATOLOGY ORDERABLE S [facility] [place] [address] * (ABNORMAL) BMP w/fasting Glucose (03/20/2019 9:47 AM EDT) Glucose Fasting 104(H) 65 - 99 mg/dL [facility] Comment: ?Fasting* Glucose Interpretive [...] of Diabetes Mellitus, Position Statement from the [place] Diabetes [employer]. ??Diabetes Care, Volume 33, Supplement 1, Sep 2009 Blood Urea Nitrogen 19 10 - 20 mg/dL [facility] Creatinine 1.10 0.80 - 1.50 mg/dL [facility] Sodium 141 135 - 145 mmol/L [facility] Potassium 4.4 3.5 - 5.0 mmol/L [facility] Comment: Please note: ??Patients with WBC >100,000 may have falsely elevated Potassium levels. ??For accurate Potassium quantification in these patients send serum separator tube (gold top) for subsequent determinations. ??Contact the Clinical Chemistry Laboratory if there are any questions. Chloride 104 98 - 107 mmol/L [facility] Carbon Dioxide 27 22 - 31 mmol/L [facility] Anion Gap 10 5 - 15 mmol/L [facility] Calcium 9.5 8.5 - 10.5 mg/dL [facility] Est Glomerular Filtration Rate 68 >=60 mL/min/1. 73 m?? [facility] Comment: The eGFR was calculated using the CKD-EPI equation. As with all creatinine based estimates of kidney function, eGFR values calculated with the CKD-EPI equation are not accurate in patients with acute kidney failure, extremes of body mass or the acutely ill. [email or web address] eGFR 78 >=60 mL/min/1. 73 m?? [facility] Comment: The eGFR was calculated using the CKD-EPI equation. As with all creatinine based estimates of kidney function, eGFR values calculated with the CKD-EPI equation are not accurate in patients with acute kidney failure, extremes of body mass or the acutely ill. [email or web address] Blood specimen (specimen) 03/20/2019 9:47 AM EDT 03/20/2019 10:01 AM EDT Narrative Resulting Agency Comment Spec In Lab Syed Garcia MD CHEMISTRY ORDERABLES [facility] [place] [address] documented in this encounter Visit Diagnoses Diagnosis Abnormal stress test Other nonspecific abnormal cardiovascular system function study Chest discomfort Other chest pain CAD (coronary artery disease) Coronary atherosclerosis of unspecified type of vessel, jackson or graft documented in this encounter Admitting Diagnoses Diagnosis CAD (coronary artery disease) Coronary atherosclerosis of unspecified type of vessel, jackson or graft documented in this encounter Administered [...] Routine 0813 (Given - Provid er: Miranda Quintanlila RN) fluticasone propionate (FLONASE) 50 mcg/actuation nasal [...] II) documented in this encounter Care Teams Fisher Spear Relationship Specialty Start Date End Date Arelis Michele MD [address] [place] [address] PCP - General Family Medicine 08/01/18 02/11/24 documented as of this encounter
--- OUTSIDE RECORDS SUMMARY | 2024-04-07 03:23 | XMS_ITS | Encounter Summary ---
Author Organization Formerly [facility] [place] [address] Care Team Providers Care Can Line Operator Name Role Phone Arelis Michele MD Primary Care Provider [phone] Reason for Referral * Consultation (Urgent) - Closed Specialty Diagnoses / Procedures Referred By Contac t Referred To Contact Orthopaedics Diagnoses Right leg swelling Injury of right lower extremity, subsequent encounter Right knee pain Dianne Norton APRN [facility] [place] [address] [facility] [address] [place] [id number] Referral ID Status Reason Start Date Expiration Date V isits Requested Visits Authorized [id number] Closed Consult, Test & Treat 07/22/2019 07/21/2020 1 1 * Diagnostic Test (Routine) - Closed Specialty Diagnoses / Procedures Referred By Contac t Referred To Contact Radiology Diagnoses Right leg swelling Injury of right lower extremity, subsequent encounter Procedures MRI Knee wo Contrast Right (Generic) Dianne Norton APRN [facility] [place] [address] [facility] [place] [address] Referral ID Status Reason Start Date Expiration Date V isits Requested Visits Authorized [id number] Closed Specialty Service Requested 07/22/2019 07/21/2020 1 1 Encounter Details Date Type Department Care Team (Late st Contact Info) Description 07/22/2019 Orders [place] [address] Dianne Norton, ITA [facility] [place] [address] Right leg swelling; Injury of right lower [...] 12:00 PM EDT Appointment [place] [address] Scheduled Referrals Name Type Priority Associated Diagnoses [...] please contact the number below. ? Narrative 08/10/2019 5:05 PM EST EXAMINATION: MRI [...] cartilage in the patellofemoral compartment since the rkuqv-[id number]-eoan was optimized to evaluate a hematoma in [...] cartilage in the patellofemoral compartment since the [id number]-[id number] was optimized to evaluate a hematoma in [...] encounter documented in this encounter Care Teams Can Line Operator Relationship Specialty Start Date End Date Arelis Michele MD [address] [place] [address] PCP - General Family Medicine 08/01/18 02/11/24 documented as of this encounter
--- OUTSIDE RECORDS SUMMARY | 2024-04-07 03:23 | XMS_ITS | Encounter Summary ---
[place] [address] Care Team Providers Care Button Breaker Name Role Phone Arelis Michele MD Primary Care Provider [phone] Reason for Visit * Reason Onset Date Comments Triage 05/07/2019 Encounter Details Date Type Department Care Team (Late st Contact Info) Description 05/07/2019 [place] [phone] Lionel Rabago, flooring installer Social History Tobacco Use Types Packs/Day Years [...] Sent: 05/08/2019 ?? 8:18 PM EDT To: [facility] Rheumatology Nurse, * Will need follow up [...] had heart stent placement March 20 at [facility]. Infusions have been on hold. Has not taken any ra meds. Patient states data acquisition technician asks if unable to have infusion, would [...] 12:00 PM EDT [place] [address] documented as of this encounter Visit Diagnoses Not on filedocumented in this encounter Care Teams Button Breaker Relationship Specialty Start Date End Date Arelis Michele MD [address] [place] [address] PCP - General Family Medicine 08/01/18 02/11/24 documented as of this encounter
--- OUTSIDE RECORDS SUMMARY | 2024-04-07 03:23 | XMS_ITS | Encounter Summary ---
[place] [address] Care Team Providers Care Health Care Marketing Manager Name Role Phone Arelis Michele MD Primary Care Provider [phone] Reason for Referral * Diagnostic Test (Emergency) - Closed Specialty Diagnoses / Procedures Referred By Contac t Referred To Contact Radiology Diagnoses Edema of right lower extremity Procedures CT Knee wo Contrast Right (Generic) Dianne Norton APRN [facility] [place] [address] [facility] [place] [address] Referral ID Status Reason Start Date Expiration Date V isits Requested Visits Authorized [id number] Closed Specialty Service Requested 07/02/2019 07/01/2020 1 1 Reason for Visit * Diagnostic Test (Emergency) - Closed Specialty Diagnoses / Procedures Referred By Contac t Referred To Contact Radiology Diagnoses Edema of right lower extremity Procedures CT Knee wo Contrast Right (Generic) Dianne Norton APRN [facility] [place] [address] [facility] [place] [address] Referral ID Status Reason Start Date Expiration Date V isits Requested Visits Authorized [id number] Closed Specialty Service Requested 07/02/2019 07/01/2020 1 1 Encounter Details Date Type Department Care Team (Latest Contact Info) Description 07/02/2019 5:20 PM EDT - 07/02/2019 11:59 PM EDT Hospital Encounter CT Scan at [facility] [place] [address] Dianne Norton, ITA [facility] [place] [address] Edema of right lower extremity Discharge Disposition: [...] 12:00 PM EDT Appointment [place] [address] documented as of this encounter Procedures Procedure [...] below. ? Electronically signed by: FINA Cespedes [facility] ([phone]), at 07/02/2019 6:28 PM Narrative 07/02/2019 6:28 [...] report, please contact the number below. Dianne Elbert Norton APRN IMG CT ORDERABLES documented in this encounter Visit Diagnoses Diagnosis Edema of right lower extremity Edema documented in this encounter Care Teams Health Care Marketing Manager Relationship Specialty Start Date End Date Arelis Michele MD [address] [place] [address] PCP - General Family Medicine 08/01/18 02/11/24 documented as of this encounter
--- OUTSIDE RECORDS SUMMARY | 2024-04-07 03:23 | XMS_ITS | Encounter Summary ---
Author Organization [facility] [place] [address] Care Team Providers Care Animal Care Specialist Name Role Phone Arelis Michele MD Primary Care Provider [phone] Encounter Details Date Type Department Care Team (Late st Contact Info) Description 09/30/2019 9:32 AM EST Anesthesia Event [place] [address] Yung Dee MD [facility] [place] [address] Anesthesia Record Procedure Summary Procedure Name Responsible [...] 0921; median cubital vein (antecubital fossa), right; vzop-xyf-toyehe catheter system; 22 gauge; Christine Carrero RN; [...] Procedure Summary Date: 09/30/19 Room / Location: [facility] ENDO 3 / [facility] ENDOSCOPY Anesthesia Start: 931 Anesthesia Stop: 1025 Procedures: COLONOSCOPY, DIAGNOSTIC (N/A Trunk) COLONOSCOPY, POLYPECTOMY, REMOVAL LESION BY SNARE (WRVU 4.67) (N/A ) Diagnosis: (Recommend repeat colonoscopy in 3-6 months to confirm complete polyp resection depending on pathology.) Surgeon: Solitario Moody MD Responsible Provider: Yung Dee MD Anesthesia Type: MAC ASA Status: 3 All Anesthesia Providers: Anesthesiologist: Yung Dee MD CLINICAL NURSING INSTRUCTOR: Sarah Robertson CRNA Vitals Value Taken Time BP 130/103 09/30/2019 10:30 AM Temp Pulse Resp 18 09/30/2019 10:25 AM SpO2 96 % 09/30/2019 10:31 AM Pain Level 0 09/30/2019 10:25 AM Vitals shown include unvalidated device data. Patient Location: PACU/[facility] Level of Consciousness: Awake and [...] eye ??? Osteopenia ?? Osteopenia, DXA at [facility] in 06/2007. ?? Right wrist fracture [...] 3.66) performed by Sarwat Villarreal MD at [facility] ENDOSCOPY ??? PRO COLONOSCOPY, REMV LESN, SNARE N/A 02/16/2019 COLONOSCOPY, POLYPECTOMY, REMOVAL LESION BY SNARE (WRVU 4.67) performed by Sarwat Villarreal MD at [facility] ENDOSCOPY ??? PRO UP GI ENDOSCOPY, BALL DIL, 30MM N/A 02/16/2019 EGD,WITH DILATION ESOPHAGUS WITH BALLOON,< 30 MM (WRVU 2.77) performed by Sarwat Villarreal MD at [facility] ENDOSCOPY ??? PRO UPPER GI ENDOSCOPY, BIOPSY N/A 02/16/2019 EGD WITH BIOPSY (WRVU 2.49) performed by Sarwat Villarreal MD at [facility] ENDOSCOPY Social History Tobacco Use ??? Smoking [...] risks discussed with patient. Plan discussed with CLINICAL NURSING INSTRUCTOR. PAT Clinic Note documented in this encounter Miscellaneous Notes * Addendum Note - Sarah Robertson CRNA - 09/30/2019 12:28 PM EST Addendum created 09/30/19 1228 by Sarah Robertson CRNA Intraprocedure Event edited, Intraprocedure Staff edited documented in this encounter Plan of Treatment Upcoming Encounters Date Type Department Care Team (Late st Contact Info) Description 04/28/2024 12:00 PM EDT Appointment [place] [address] documented as of this encounter Visit Diagnoses [...] r documented in this encounter Care Teams Animal Care Specialist Relationship Specialty Start Date End Date Arelis Michele MD [address] [place] [address] PCP - General Family Medicine 08/01/18 02/11/24 documented as of this encounter
--- OUTSIDE RECORDS SUMMARY | 2024-04-07 03:23 | XMS_ITS | Encounter Summary ---
[place] [address] Care Team Providers Care Lens Matcher Name Role Phone Arelis Michele MD Primary Care Provider [phone] Reason for Visit * Reason Onset Date Comments Other 07/07/2019 Encounter Details Date Type Department Care Team (Late st Contact Info) Description 07/07/2019 Telephone [place] [address] Lionel Rabago RN Other Social History Tobacco [...] were not included. Dianne Norton, ITA [facility] Rheumatology Nurse ?? Please call pt and relay the following: I reviewed [facility] ED notes. I would [...] to us Spoke with patient, went to [facility] last Saturday. States was instructed to apply ice and heat. Ice is helps. Keeping leg elevated. Swelling, black and blue decreasing. Slight decrease in pain. Tylenol, helping somewhat. Patient states condition improving, will request notes. * Telephone Encounter - Lionel Rabago RN - 07/09/2019 2:21 PM EST Patient returns call to clinic. Spoke with patient and updated on imaging. He is currently in [place]. Patient states that his right leg/knee has [...] 12:00 PM EDT Appointment [place] [address] documented as of this encounter Visit Diagnoses Not on filedocumented in this encounter Care Teams Lens Matcher Relationship Specialty Start Date End Date Arelis Michele MD [address] [place] [address] PCP - General Family Medicine 08/01/18 02/11/24 documented as of this encounter
--- OUTSIDE RECORDS SUMMARY | 2024-04-07 03:23 | XMS_ITS | Encounter Summary ---
Author Organization [facility] [place] [address] Care Team Providers Care Counsel Name Role Phone Arelis Michele MD Primary Care Provider [phone] Encounter Details Date Type Department Care Team (Late Contact Info) Description 07/07/2019 Tele[place] [address] Dianne Norton, APPLICATION SYSTEMS ARCHITECT [facility] [place] [address] Social History Tobacco Use Types Packs/Day Years [...] 12:00 PM EDT [place] [address] documented as of this encounter Visit Diagnoses Not on filedocumented in this encounter Care Teams Counsel Relationship Specialty Start Date End Date Arelis Michele MD [address] [place], [place] [address] PCP - General Family Medicine 08/01/18 02/11/24 documented as of this encounter
--- OUTSIDE RECORDS SUMMARY | 2024-04-07 03:23 | XMS_ITS | Encounter Summary ---
[place] [address] Care Team Providers Care Card Runner Name Role Phone Arelis Michele MD Primary Care Provider [phone] Encounter Details Date Type Department Care Team (Late Contact Info) Description 03/10/2020 Telephone [place] [address] Vita Castaneda Social History Tobacco [...] Vita Castaneda - 03/10/2020 1:08 PM EDT [facility] calls to sched appt for pt. Called pt to schedule. No answer, lm on vm. Sending letter documented in this encounter Plan of Treatment Upcoming Encounters Date Type Department Care Team (Late st Contact Info) Description 04/28/2024 12:00 PM EDT Appointment [place] [address] documented as of this encounter Visit Diagnoses Not on filedocumented in this encounter Care Teams Card Runner Relationship Specialty Start Date End Date Arelis Michele MD [address] [place] [address] PCP - General Family Medicine 08/01/18 02/11/24 documented as of this encounter
--- OUTSIDE RECORDS SUMMARY | 2024-04-07 03:23 | XMS_ITS | Encounter Summary ---
Author [place] [address] Care Team Providers Care Hostel Manager Name Role Phone Arelis Michele MD Primary Care Provider [phone] Encounter Details Date Type Department Care Team (Late st Contact Info) Description 04/20/2019 Telephone [place] [address] Renetta Hartley Social History Tobacco Use Types [...] 12:00 PM EDT Appointment [place] [address] documented as of this encounter Visit Diagnoses Not on filedocumented in this encounter Care Teams Hostel Manager Relationship Specialty Start Date End Date Arelis Michele MD [address] [place] [address] PCP - General Family Medicine 08/01/18 02/11/24 documented as of this encounter
--- OUTSIDE RECORDS SUMMARY | 2024-04-07 03:23 | XMS_ITS | Encounter Summary ---
[place] [address] Care Team Providers Care Records Clerk Name Role Phone Arelis Michele MD Primary Care Provider [phone] Reason for Visit * Reason Onset Date Comments Medication Refill 09/14/2019 Encounter Details Date Type Department Care Team (Late st Contact Info) Description 09/14/2019 Refill Cardiology at [address] [address] Cecilia Tejeda LPN Medication Refill Social History [...] - 09/14/2019 2:11 PM EST Fax from [facility] Atorvastatin 40 mg tablet- take 1 tablet [...] 12:00 PM EDT Appointment [place] [address] documented as of this encounter Visit Diagnoses Not on filedocumented in this encounter Care Teams Records Clerk Relationship Specialty Start Date End Date Arelis Michele MD [address] [place] [address] PCP - General Family Medicine 08/01/18 02/11/24 documented as of this encounter
--- OUTSIDE RECORDS SUMMARY | 2024-04-07 03:23 | XMS_ITS | Encounter Summary ---
Author Organization [facility] [place] [address] Care Team Providers Care Rn Emergency Name Role Phone Arelis Michele MD Primary Care Provider [phone] Encounter Details Date Type Department Care Team (Late Contact Info) Description 05/11/2019 [place] [address] Renetta Hartley Social History Tobacco Use Types [...] encounter Miscellaneous Notes * Telephone Encounter - Renetat Hartley - 05/11/2019 3:02 PM EDT Lionel asked that I schedule a 1 hr appt with you for Wesly. Wesly is not available in July at all. Do you have anything in May / Jun? He lives in [place], so he can't do the quality specialist appts. documented in this encounter Plan of Treatment Upcoming Encounters Date Type Department Care Team (Late st Contact Info) Description 04/28/2024 12:00 PM EDT [place] [address] documented as of this encounter Visit Diagnoses Not on filedocumented in this encounter Care Teams Rn Emergency Relationship Specialty Start Date End Date Arelis Michele MD [address] [place] [address] PCP - General Family Medicine 08/01/18 02/11/24 documented as of this encounter
--- OUTSIDE RECORDS SUMMARY | 2024-04-07 03:24 | XMS_ITS | Encounter Summary ---
[place] [address] Care Team Providers Care Talent Advisor Name Role Phone Arelis Michele MD Primary Care Provider [phone] Encounter Details Date Type Department Care Team (Late Contact Info) Description 12/19/2018 Telephone [place] [address] Yumi Maxwell Social History Tobacco [...] 12:00 PM EDT [place] [address] documented as of this encounter Visit Diagnoses Not on filedocumented in this encounter Care Teams Talent Advisor Relationship Specialty Start Date End Date Arelis Michele MD [address] [place] [address] PCP - General Family Medicine 08/01/18 02/11/24 documented as of this encounter
--- OUTSIDE RECORDS SUMMARY | 2024-04-07 03:24 | XMS_ITS | Encounter Summary ---
Author Organization [facility] [address] Care Team Providers Care Ballet Master/Mistress Name Role Phone Arelis Michele MD Primary Care Provider [phone] Encounter Details Date Type Department Care Team (Late st Contact Info) Description 08/23/2015 9:45 AM EST Office [place] [address] Kandy Espana, RN [facility] [place] [address] Rheumatoid arthritis; High risk medication use; Medication [...] this encounter Progress Notes * Kandy Espana, CASH REGISTER REPAIRER - 08/23/2015 9:46 AM EST Established Patient [...] 12:00 PM EDT [place] [address] documented as of this encounter Visit Diagnoses Diagnosis Rheumatoid arthritis High risk medication use Encounter for long-term (current) use of other medications Medication monitoring encounter Encounter for therapeutic drug monitoring documented in this encounter Care Teams Ballet Master/Mistress Relationship Specialty Start Date End Date Arelis Michele MD [address] [place] [address] PCP - General 11/16/13 06/10/18 documented as of this encounter
--- OUTSIDE RECORDS SUMMARY | 2024-04-07 03:24 | XMS_ITS | Encounter Summary ---
Author Organization [facility] [place] [address] Care Team Providers Care Hematology Oncology Consultant Name Role Phone Andrew White DO Primary Care Provider Encounter Details Date Type Department Care Team (Late st Contact Info) Description 07/08/2018 Telephone [place] [address] Bonnie Cary Social History Tobacco [...] 12:00 PM EDT Appointment [place] [address] documented as of this encounter Visit Diagnoses Not on filedocumented in this encounter Care Teams Hematology Oncology Consultant Relationship Specialty Start Date End Date Andrew White DO [address] [place] [address] PCP - General Family Medicine 06/11/18 07/31/18 documented as of this encounter
--- OUTSIDE RECORDS SUMMARY | 2024-04-07 03:24 | XMS_ITS | Encounter Summary ---
Author Organization [facility] [place] [address] Care Team Providers Care Lottery Manager Name Role Phone Arelis Michele MD Primary Care Provider [phone] Encounter Details Date Type Department Care Team (Late st Contact Info) Description 06/20/2016 Orders [place] [address] Kandy Espana, RN [facility] [place] [address] Social History Tobacco Use Types Packs/Day Years [...] 12:00 PM EDT [place]oint[place] [address] documented as of this encounter Visit Diagnoses Not on filedocumented in this encounter Care Teams Lottery Manager Relationship Specialty Start Date End Date Arelis Michele MD [address] [place], [place] [address] PCP - General 11/16/13 06/10/18 documented as of this encounter
--- OUTSIDE RECORDS SUMMARY | 2024-04-07 03:24 | XMS_ITS | Encounter Summary ---
[place] [address] Care Team Providers Care Laboratory Geneticist Name Role Phone ChristopherAndrew carmona Primary Care Provider Encounter Details Date Type Department Care Team (Late st Contact Info) Description 06/16/2018 [place] [address] Lionel Rabago RN Social History Tobacco Use [...] RN - 06/19/2018 8:14 AM EDT Per ACID TREATER Jovi, hold rituxan infusion until pulm consult [...] EDT [place] [address] documented as of this encounter Visit Diagnoses Not on filedocumented in this encounter Care Teams Laboratory Geneticist Relationship Specialty Start Date End Date Andrew White DO [address] [place] [address] PCP - General Family Medicine 06/11/18 07/31/18 documented as of this encounter
--- OUTSIDE RECORDS SUMMARY | 2024-04-07 03:24 | XMS_ITS | Encounter Summary ---
Author Organization [facility] [place] [address] Care Team Providers Care Admitting Office Escort Name Role Phone Arelis Michele MD Primary Care Provider [phone] Encounter Details Date Type Department Care Team (Late st Contact Info) Description 09/22/2018 Orders [place] [address] Steven Soliz MD [facility] [place] [address] Social History Tobacco Use Types Packs/Day Years [...] 12:00 PM EDT Appointment [place] [address] documented as of this encounter Visit Diagnoses Not on filedocumented in this encounter Care Teams Admitting Office Escort Relationship Specialty Start Date End Date Arelis Michele MD [address] [place], [place] [address] PCP - General Family Medicine 08/01/18 02/11/24 documented as of this encounter
--- OUTSIDE RECORDS SUMMARY | 2024-04-07 03:24 | XMS_ITS | Encounter Summary ---
[place] [address] Care Team Providers Care Wax Coating Machine Tender Name Role Phone Arelis Michele MD Primary Care Provider [phone] Encounter Details Date Type Department Care Team (Late st Contact Info) Description 09/24/2018 Telephone [place] [address] Monty Green, RN Social History Tobacco Use [...] 12:00 PM EDT Appointment [place] [address] documented as of this encounter Visit Diagnoses Not on filedocumented in this encounter Care Teams Wax Coating Machine Tender Relationship Specialty Start Date End Date Arelis Michele MD [address] [place] [address] PCP - General Family Medicine 08/01/18 02/11/24 documented as of this encounter
--- OUTSIDE RECORDS SUMMARY | 2024-04-07 03:24 | XMS_ITS | Encounter Summary ---
Author Organization [facility] [place] [address] Care Team Providers Care Airplane Pilot Helper Name Role Phone Arelis Michele MD Primary Care Provider [phone] Encounter Details Date Type Department Care Team (Late st Contact Info) Description 01/08/2019 10:15 AM EDT Office Visit [place] [address] Kandy Espana, RN [facility] [place] [address] Rheumatoid arthritis with positive rheumatoid factor, involving [...] this encounter Progress Notes * Kandy Espana, CERTIFIED ORTHOTIST/PEDORTHIST - 01/08/2019 10:15 AM EDT Established Patient Follow Up - Rheumatology Clinic Wesly Ybarra is a 68 y.o.male seen for ongoing evaluation and management of rheumatoid arthritis. He is accompanied by a local bulk driver. Last RHEU OV: 10/2018. INTERVAL HISTORY: Rheumatology remain on HOLD due to unspecified Cardiology procedure (thinks its aCardiac cath). But understands needs colonoscopy ( 02/16/2019) and endoscopy (unscheduled to date). Previously reported last Rituxan infusion in January 2018. [facility] (single infusion protocol/q 4 mo). Noted at [...] is. Treated by Dr. Sommers ([facility] Cardiology). History of depression - current management [...] 12:00 PM EDT Appointment [place] [address] documented as of this [...] section) documented in this encounter Care Teams Airplane Pilot Helper Relationship Specialty Start Date End Date Arelis Michele MD [address] [place] [address] PCP - General Family Medicine 08/01/18 02/11/24 documented as of this encounter
--- OUTSIDE RECORDS SUMMARY | 2024-04-07 03:24 | XMS_ITS | Encounter Summary ---
Author Organization [facility] [place] [address] Care Team Providers Care Motor Equipment Commanding Officer Name Role Phone Arelis Michele MD Primary Care Provider [phone] Encounter Details Date Type Department Care Team (Late st Contact Info) Description 04/20/2016 Tele[place] [address] Shanelle Xie Social History Tobacco Use Types [...] Shanelle Xie - 04/20/2016 1:13 PM EDT Wesly calls today wondering why he had an 04/23/16 appointment with Guillermina Espana as his last AVS of 02/28/16 said to follow up in a year. He was wondering if something has changed. documented in this encounter Plan of Treatment Upcoming Encounters Date Type Department Care Team (Late st Contact Info) Description 04/28/2024 12:00 PM EDT Appointment [place] [address] documented as of this encounter Visit Diagnoses Not on filedocumented in this encounter Care Teams Motor Equipment Commanding Officer Relationship Specialty Start Date End Date Arelis Michele MD [address] [place] [address] PCP - General 11/16/13 06/10/18 documented as of this encounter
--- OUTSIDE RECORDS SUMMARY | 2024-04-07 03:24 | XMS_ITS | Encounter Summary ---
Author Organization [facility] [place] [address] Care Team Providers Care Grocery Clerk Marking Name Role Phone Arelis Michele MD Primary Care Provider [phone] Encounter Details Date Type Department Care Team (Late Contact Info) Description 06/19/2017 Telephone [place] [address] Guerline Taylor LPN Social History [...] PM EDT Appointment [place] [address] documented as of this encounter Visit Diagnoses Not on filedocumented in this encounter Care Teams Grocery Clerk Marking Relationship Specialty Start Date End Date Arelis Michele MD [address] [place] [address] PCP - General 11/16/13 06/10/18 documented as of this encounter
--- OUTSIDE RECORDS SUMMARY | 2024-04-07 03:24 | XMS_ITS | Encounter Summary ---
Author Organization [facility] [place] [address] Care Team Providers Care Injection Molding Operator Name Role Phone Arelis Michele MD Primary Care Provider [phone] Encounter Details Date Type Department Care Team (Latest Contact Info) Description 02/16/2019 10:00 AM EDT - 02/16/2019 2:13 PM EDT Hospital Encounter Gastroenterology at [facility] [place] [address] [place] [address] Gastroesophageal reflux disease, esophagitis presence not specified [...] to be checked. Saturday-Saturday Same Day Endo [phone] Otherwise contact [phone] and ask to speak to the flatwork finisher long wall mining machine helper Follow up care is a rm part [...] 12:00 PM EDT [place] [address] documented as of this encounter Procedures Procedure [...] PM EDT 02/16/2019 1:20 PM EDT Narrative [facility] - 02/16/2019 1:20 PM EDT Specimen requisition ordered. ??Separate Pathology report to follow Sarwat Villarreal MD PATHOLOGY/CYTOLOGY O RDJOSEFA Performing Organization Address City/[facility]/ZIP Co de Phone Number [facility] [place] [address] * Specimen to Pathology (02/16/2019 1:20 PM EDT) AP Specimen 02/16/2019 1:20 PM EDT 02/16/2019 1:20 PM EDT Narrative [facility] - 02/16/2019 1:20 PM EDT Specimen requisition ordered. ??Separate Pathology report to follow Sarwat Villarreal MD PATHOLOGY/CYTOLOGY O RDERABLES Performing Organization Address City/[facility]/ZIP Co de Phone Number [facility] [place] [address] * Specimen to Pathology (02/16/2019 1:20 PM EDT) AP Specimen 02/16/2019 1:20 PM EDT 02/16/2019 1:20 PM EDT Narrative [facility] - 02/16/2019 1:20 PM EDT Specimen requisition ordered. ??Separate Pathology report to follow Sarwat Villarreal MD PATHOLOGY/CYTOLOGY O RDERAJEANINE [facility] [place] [address] * Specimen to Pathology (02/16/2019 1:20 PM EDT) AP Specimen 02/16/2019 1:20 PM EDT 02/16/2019 1:20 PM EDT Narrative [facility] - 02/16/2019 1:20 PM EDT Specimen requisition ordered. ??Separate Pathology report to follow Sarwat Villarreal MD PATHOLOGY/CYTOLOGY O RDERABLES [facility] [place] [address] * Surgical Pathology Report (02/16/2019 12:17 PM EDT) Final Diagnosis [id number] ? Location: 4T; EA10; A The signing [...] Holt MD Verified: ??02/19/2019 ?Pathologist Performed at: ??-[facility] Dept. of Pathology, [place], [place] CLINICAL INFORMATION Specimen Submitted: A - [...] SPECIMEN PROCESSING ??sns 02/19/2019 11:13 AM EDT [facility] GI Biopsy 02/16/2019 12:1 7 PM EDT 02/16/2019 12:17 PM EDT GI Biopsy 02/16/2019 12:1 7 PM EDT 02/16/2019 12:17 PM EDT GI Biopsy 02/16/2019 12:1 7 PM EDT 02/16/2019 12:17 PM EDT GI Biopsy 02/16/2019 12:1 7 PM EDT 02/16/2019 12:17 PM EDT Sarwat Villarreal MD PATHOLOGY/CYTOLOGY O RDERAJEANINE [facility] [place] [address] * COLONOSCOPY (02/16/2019 11:54 AM EDT) COLONOSCOPY [facility] Endoscopy Procedure Date: 02/16/2019 11:54 AM ? Patient Name: Wesly Ybarra ? Date of : 1950 ? Age: 68 ? Order #: [id number] ? Instrument Name: [id number] ? Procedure: ? Colonoscopy Indications: ? Screening for colorectal malignant ? neoplasm Providers: ? Uriah Self RN, ? Janet Coburn, Blood Bank Specialist Referring MD: ?Arelis M. Berrian, MD Medicines: [...] by the physician, the ? nurse, the client support consultant and the ? wound care technician. The procedure was ? verified in [...] preparation was evaluated using ? the BBPS ([place] Bowel Preparation ? Scale) with scores of: [...] (02/16/2019 11:53 AM EDT) UPPER GI ENDOSCOPY [facility] Endoscopy Procedure Date: 02/16/2019 11:53 AM ? Patient Name: Wesly Ybarra ? Date of : 1950 ? Age: 68 ? Order #: [id number] ? Instrument Name: [id number] ? Procedure: ? Upper GI endoscopy Indications: ? Dysphagia Providers: ? Uriah Self RN, ? Janet Coburn, Blood Bank Specialist Referring : ?Arelis Michele MD Medicines: ? [...] by the physician, the ? nurse, the client support consultant and the ? wound care technician. The procedure was ? verified in [...] (Bezet) 445 ms MUSE SYSTEM Calculated P Clarion 48 degrees MUSE SYSTEM Calculated T Clarion 28 degrees MUSE SYSTEM INTERPRETATION Normal sinus rhythm Normal ECG When compared with ECG of 02-NOV-2003 13:04, Previous ECG has undetermined rhythm, needs review Confirmed by MD Posey Megan ([id number]) on 02/16/2019 8:31:39 PM MUSE SYSTEM 02/16/2019 10:5 5 AM EDT 02/16/2019 8:31 PM EDT James Bourne MD ECG ORDERABLES MUSE SYSTEM documented in this encounter Visit Diagnoses Diagnosis Gastroesophageal reflux disease, esophagitis presence not specified documented in this encounter Active and Recently Administered Medications Care Teams Injection Molding Operator Relationship Specialty Start Date End Date Arelis Michele MD [address] [place] [address] PCP - General Family Medicine 08/01/18 02/11/24 documented as of this encounter
--- OUTSIDE RECORDS SUMMARY | 2024-04-07 03:24 | XMS_ITS | Encounter Summary ---
Author Organization [facility] [place] [address] Care Team Providers Care Contact Lens Inspector Name Role Phone Arelis Michele MD Primary Care Provider [phone] Reason for Referral * High Dollar Medication (Routine) - Closed Specialty Diagnoses / Procedures Referred By Contac t Referred To Contact Med Infusion Diagnoses Rheumatoid arthritis with positive rheumatoid factor, involving unspecified site Kandy Espana, RN [facility] [place] [address] [facility] Med Infusion [address] [place] [phone] Referral ID Status Reason Start Date Expiration Date V isits Requested Visits Authorized [id number] Closed Consult, Test & Treat 02/20/2016 02/19/2017 1 1 Encounter Details Date Type Department Care Team (Late st Contact Info) Description 02/20/2016 Orders [place] [address] Kandy Espana, RN [facility] [place] [address] Rheumatoid arthritis with positive rheumatoid [...] 12:00 PM EDT Appointment [place] [address] Scheduled Referrals Name Type Priority Associated Diagnoses Orde r Schedule Auth Request for Infusion Medication Outpatient Referral Routine Rheumatoid arthritis with positive rheumatoid factor, involving unspecified site Ordered: 02/20/2016 documented as of this encounter Visit Diagnoses Diagnosis Rheumatoid arthritis with positive rheumatoid factor, involving unspecified site documented in this encounter Care Teams Contact Lens Inspector Relationship Specialty Start Date End Date Arelis Michele MD [address] [place] [address] PCP - General 11/16/13 06/10/18 documented as of this encounter
--- OUTSIDE RECORDS SUMMARY | 2024-04-07 03:24 | XMS_ITS | Encounter Summary ---
Author Organization [facility] [place] [address] Care Team Providers Care Detective Private Eye Name Role Phone Arelis Michele MD Primary Care Provider [phone] Reason for Visit * Reason Comments IV Medication * High Dollar Medication (Routine) - Specialty Diagnoses / Procedures Referred By Azam corbett Referred To Contact Med Infusion Diagnoses Rheumatoid arthritis with positive rheumatoid factor, involving unspecified site Kandy Espana, RN [facility] [place] [address] [facility] Med Infusion [address] [place] [phone] Referral ID Status Reason Start Date Expiration Date V isits Requested Visits Authorized [id number] Consult, Test & Treat 10/07/2015 10/06/2016 3 3 Encounter Details Date Type Department Care Team (Latest Contact Info) Description 02/28/2016 8:45 AM EDT - 02/28/2016 11:59 PM EDT Hospital Encounter [place] [address] Rheumatoid arthritis with positive rheumatoid [...] EDT Appoint[place] [address] documented as of this encounter Visit Diagnoses [...] mg documented in this encounter Care Teams Detective Private Eye Relationship Specialty Start Date End Date Arelis Michele MD [address] [place] [address] PCP - General 11/16/13 06/10/18 documented as of this encounter
--- OUTSIDE RECORDS SUMMARY | 2024-04-07 03:24 | XMS_ITS | Encounter Summary ---
Author Organization [facility] [place] [address] Care Team Providers Care Therapeutic Sales Specialist Name Role Phone Arelis Michele MD Primary Care Provider Reason for Visit * Reason Comments Referral * Consultation (Routine) - Closed Specialty Diagnoses / Procedures Referred By Contmabel t Referred To Contact Pulmonology Diagnoses SOB; Dyspnea Procedures needs f/u-has not been seen in a few years Uriah Sommers MD [address] [place] [id number] [facility] Pulmonology [address] [place] [phone] Referral ID Status Reason Start Date Expiration Date V isits Requested Visits Authorized [id number] Closed Consult, Test & Treat [facility] 06/11/2018 06/11/2019 1 1 Encounter Details Date Type Department Care Team (Late st Contact Info) Description 08/01/2018 11:00 AM EST Office [place] [address] Steven Soliz MD [facility] [place] [address] SOB (shortness of breath); Chronic rhinitis; Diaphragm [...] NAME: Wesly Ybarra : 1950 MEDICAL RECORD: [id number] DATE OF SERVICE: 07/31/2018 REFERRING PHYSICIAN: Uriah Sommers MD PRIMARY CARE PHYSICIAN: Andrew White DO Reason for Consultation: SOB; Dyspnea Chief Complaint: I've been having worsening breathing over the last year History of Present Illness: Mr. Wesly Ybarra is a 67 y.o. man who is referred to Pulmonology for initial evaluation of SOB; Dyspnea. He is referred by Cardiology at [facility] who last evaluated him on 06/09/18. Per [...] which he is followed by Endocrinology at [facility] (last seen on 04/16/18). He is currently receiving Rituxan (has received either continuously or on/off since at [id number]) on a q16 weeks single infusion protocol at [facility]. His pulmonary examination at that appointment was [...] records. 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 Labs: None to review today PFTS: DATE FVC FEV1 FEV1/FVC DLCO TLC RV OPERATIONS RESEARCH ANALYST? 06/16/13 70% 73% 77% 91% -- -- [...] has previously been evaluated by Pulmonology at [facility] and [facility] and had a HRCT chest in 2014 [...] he is being managed closely by his Marine Underwriter. I also appreciate (per the patient) he was started on Coreg last year which preceeded the more abrupt worsening of his exercise tolerance. Therefore, some degree of chronotropic blunting with exercise should be considered and I would defer to his Marine Underwriter whether a time limited trial off Coreg [...] Will order a fluoroscopic diaphragm test at [facility] (if they perform those tests) ?? Recommend his Marine Underwriter determine if reasonable for time limited d/c [...] with me in 4-6 weeks Closest Hospital's: [facility] Steven Soliz MD, 08/01/2018, 1:14 PM Pulmonary & Critical Care Pager: [phone] documented in this encounter Plan of Treatment Upcoming Encounters Date Type Department Care Team (Late st Contact Info) Description 04/28/2024 12:00 PM EDT [place] [address] documented as of this encounter Procedures Procedure [...] 12:26 PM EST) Neutrophil % 55.6 % [facility] Neutrophil Absolute 5.15 1.70 - 6.10 x10(3)/[facility] Lymph % 28.5 % [facility] Lymphocytes Abs 2.6 0.9 - 3.2 x10(3)/[facility] Monocyte % 10.4 % [facility] Monocyte Abs 1.0(H) 0.3 - 0.9 x10(3)/ L [facility] Eos % 4.8 % [facility] Eosinophils Abs 0.4 0.0 - 0.4 x10(3)/[facility] Basophil % 0.4 % [facility] Baso Absolute 0.0 0.0 - 0.1 x10(3)/ L [facility] Immature Gran % 0.30 % [facility] Comment: Immature granulocytes(IG's)percentage and absolute count will include metamyelocytes, myelocytes, and promyelocytes. Blood smears from CBCs yielding IG's will be scanned manually for concordance. If this scan disagrees with the automated IG or if promyelocytes are noted, a manual differential will be performed. Immature Gran Absolute 0.03 0.00 - 0.04 x10(3)/ L [facility] Blood specimen (specimen) 08/01/2018 12:26 PM EST 08/01/2018 12:33 PM EST Narrative Resulting Agency Comment Spec In Lab Steven Soliz MD HEMATOLOGY ORDERABLE S [facility] [place] [address] * (ABNORMAL) Hemogram (08/01/2018 12:26 PM EST) [facility] White Blood Cell 9.3 4.0 - 9.5 x10(3)/ L [facility] Red Blood Cell 5.23 4.58 - 5.54 x10(6)/ L [facility] Hemoglobin 15.2 13.7 - 16.5 gm/dL [facility] Hematocrit 46.0 40.5 - 48.5 % [facility] Mean Cell Volume 88.0 82.9 - 93.1 fL [facility] Mean Cell Hemoglobin 29.1 27.5 - 32.1 pg [facility] Mean Cell Hemoglobin Concentration 33.0 32.0 - 35.7 gm/dL [facility] Platelet 276 145 - 357 x10(3)/mc L [facility] RDW Standard Deviation 45.2(H) 36.0 - 45.0 fL [facility] RDW coefficient of variation 14.0(H) 11.4 - 13.8 % [facility] Mean Platelet Volume 9.6 7.6 - 12.9 fL [facility] NRBC% auto 0.0 % [facility] NRBC Absolute 0.000 0.000 - 0.000 x10(3)/ L [facility] Blood specimen (specimen) 08/01/2018 12:26 PM EST 08/01/2018 12:33 PM EST Narrative Resulting Agency Comment Spec In Lab Steven Soliz MD HEMATOLOGY ORDERABLE S [facility] [place] [address] * Immunoglobulin E (IgE) (08/01/2018 12:26 PM EST) IgE, Total 36 <=101 kU/L [facility] Comment: Pediatric age-specific reference ranges are reflected in result ranges. Adult reference ranges: <25 kU/L ??Normal 25-100 kU/L Equivocal >100 kU/L ??Elevated Blood specimen (specimen) 08/01/2018 12:26 PM EST 08/01/2018 2:13 PM EST Narrative Resulting Agency Comment Spec In Lab Steven Soliz MD IMMUNOLOGY ORDERABLE S [facility] [place] [address] * Warriors MarkAnette rajan IgE (08/01/2018 12:26 PM EST) Anette Vaz, IgE <0.35 kU/L [facility] Comment: Reference Ranges <0.35 kU/L Class [...] MD IMMUNOLOGY ORDERABLE S Performing Organization Address City/[facility]/ZIP Co de Phone Number [facility] [place] [address] * Robbie, White IgE (08/01/2018 12:26 PM EST) Anette Robbie, IgE <0.35 kU/L [facility] Comment: Reference Ranges <0.35 kU/L [...] Lab Steven Soliz MD IMMUNOLOGY ORDERABLE S [facility] [place] [address] * Db Grass IgE (08/01/2018 12:26 PM EST) Db Grass, IgE <0.35 kU/L [facility] Comment: Reference Ranges <0.35 kU/L Class [...] MD IMMUNOLOGY ORDERABLE S Performing Organization Address [facility]/ZIP Co de Phone Number [facility] [place] [address] * [place] IgE (08/01/2018 12:26 PM EST) [place], IgE <0.35 kU/L [facility] Comment: Reference Ranges <0.35 kU/L Class [...] MD IMMUNOLOGY ORDERABLE S Performing Organization Address [facility]/ZIP Co de Phone Number [facility] [place] [address] * Ragweed, short/ common IgE (08/01/2018 12:26 PM EST) Short Ragweed, IgE <0.35 kU/L [facility] Comment: Reference Ranges <0.35 kU/L Class [...] MD IMMUNOLOGY ORDERABLE S Performing Organization Address [facility]/ZIP Co de Phone Number [facility] [place] [address] * House Dust Mites/D.P., IgE (08/01/2018 12:26 PM EST) House Dust Mites/DP, IgE <0.35 kU/L [facility] Comment: Reference Ranges <0.35 kU/L [...] MD IMMUNOLOGY ORDERABLE S Performing Organization Address [facility]/ZIP Co de Phone Number [facility] [place] [address] * House Dust Mites/D.F., IgE (08/01/2018 12:26 PM EST) Pathologist [facility] Mites/D.F. IgE <0.35 kU/L [facility] Comment: Reference Ranges <0.35 kU/L [...] Lab Steven Soliz MD IMMUNOLOGY ORDERABLE S [facility] [place] [address] * Elm IgE (08/01/2018 12:26 PM EST) Pathologist [facility] Elm, IgE <0.35 kU/L [facility] Comment: Reference Ranges <0.35 kU/L Class [...] MD IMMUNOLOGY ORDERABLE S Performing Organization Address [facility] Co de Phone Number [facility] [place] [address] * Dog Epithelium IgE (08/01/2018 12:26 PM [...] MD IMMUNOLOGY ORDERABLE S Performing Organization Address [facility] Co de Phone Number [facility] [place] [address] * Cat Epithelium IgE (08/01/2018 12:26 PM [...] MD IMMUNOLOGY ORDERABLE S Performing Organization Address [facility] Co de Phone Number [facility] [place] [address] * moe Díaz IgE (08/01/2018 12:26 PM EST) Pathologist Obi Díaz IgE <0.35 kU/L [facility] Comment: Reference Ranges <0.35 kU/L [...] MD IMMUNOLOGY ORDERABLE S Performing Organization Address [facility]/ZIP Co de Phone Number [facility] [place] [address] * Maptoi / [place] IgE (08/01/2018 12:26 PM EST) GarlandpitomariahIsaiasStacey, IgE <0.35 kU/L [facility] Comment: Reference Ranges <0.35 kU/L [...] Lab Steven Soliz MD IMMUNOLOGY ORDERABLE S [facility] [place] [address] * Beech IgE (08/01/2018 12:26 PM EST) Teja, IgE <0.35 kU/L [facility] [...] MD IMMUNOLOGY ORDERABLE S Performing Organization Address City/[facility]/ZIP Co de Phone Number [facility] [place] [address] * Aspergillus fumigatus IgE (08/01/2018 12:26 PM EST) Aspergillus Fumigatus, IgE <0.35 kU/L [facility] Comment: [...] MD IMMUNOLOGY ORDERABLE S Performing Organization Address City/[facility]/ZIP Co de Phone Number [facility] [place] [address] * Alternaria Tenuis, IgE (08/01/2018 12:26 PM EST) Alt Tenuis IgE <0.35 kU/L [facility] Comment: Reference Ranges <0.35 kU/L [...] Lab Steven Soliz [place] [address] documented in this encounter Visit Diagnoses Diagnosis SOB (shortness of breath) Shortness of breath Chronic rhinitis Diaphragm paralysis Disorders of diaphragm Cough variant asthma Cough variant asthma documented in this encounter Care Teams Therapeutic Sales Specialist Relationship Specialty Start Date End Date Arelis Michele MD [address] [place] [address] PCP - General Family Medicine 08/01/18 02/11/24 documented as of this encounter
--- OUTSIDE RECORDS SUMMARY | 2024-04-07 03:24 | XMS_ITS | Encounter Summary ---
Author Organization [facility] [address] Care Team Providers Care Ceo Ziff Davis Name Role Phone Arelis Michele MD Primary Care Provider [phone] Encounter Details Date Type Department Care Team (Late st Contact Info) Description 02/28/2016 2:15 PM EDT Office [place] [address] Kandy Espana, RN [facility] [place] [address] Rheumatoid arthritis with positive rheumatoid factor, involving [...] this encounter Progress Notes * Kandy Espana, INTERFACE DESIGNER - 02/28/2016 7:33 AM EDT Established Patient [...] Still hopeful to receive Rituxan at [facility], convenience for t/family. Reports greatest concern is [...] When last seen, reported Neurology consult ([facility]) completed 10/2015. Diagnostics completed and follow up [...] Rituxan today. ?? Future Rituxan at [facility] -> pending approval by [facility] staff/co-sig. ?? Rituxan at [facility] in 6 months. ?? Will follow up [...] 12:00 PM EDT [place]ment [place] [address] documented as of this encounter Visit Diagnoses Diagnosis Rheumatoid arthritis with positive rheumatoid factor, involving unspecified site High risk medication use Encounter for long-term (current) use of other medications Medication monitoring encounter Encounter for therapeutic drug monitoring documented in this encounter Care Teams Ceo Ziff Davis Relationship Specialty Start Date End Date Arelis Michele MD [address] [place] [address] PCP - General 11/16/13 06/10/18 documented as of this encounter
--- OUTSIDE RECORDS SUMMARY | 2024-04-07 03:24 | XMS_ITS | Encounter Summary ---
Author Organization [facility] [place] [address] Care Team Providers Care Sexer Name Role Phone Arelis Michele MD Primary Care Provider [phone] Reason for Visit * Reason Onset Date Comments Prior Authorization 09/08/2018 Encounter Details Date Type Department Care Team (Late st Contact Info) Description 09/08/2018 Tele[place] [address] Lyn Wyman LPN Prior Authorization [...] Appoint[place] [address] documented as of this encounter Visit Diagnoses Not on filedocumented in this encounter Care Teams Sexer Relationship Specialty Start Date End Date Arelis Michele MD [address] [place] [address] PCP - General Family Medicine 08/01/18 02/11/24 documented as of this encounter
--- OUTSIDE RECORDS SUMMARY | 2024-04-07 03:24 | XMS_ITS | Encounter Summary ---
Author Organization [facility] [place] [address] Care Team Providers Care Hospitality Coordinator Name Role Phone Arelis Michele MD Primary Care Provider [phone] Reason for Visit * Reason Comments Follow-up Encounter Details Date Type Department Care Team (Late st Contact Info) Description 09/05/2018 10:00 AM EST Office [place] [address] Steven Soliz MD [facility] [place] [address] Diaphragm paralysis; ZEPEDA (dyspnea on exertion) Social [...] oscopic sniff test which was performed at [facility] on 08/13 demonstrated marked decrease in activitysuggestive of paresis to the radiologist. We discussed confering with his Safety Coordinator regarding a time limited trial off Coreg [...] not help his symptoms. He remains on [facility]' Cardiology this coming Saturday. 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 06/16/13 70% 73% 77% 91% -- -- [...] (Images personally reviewed) 08/13/18 Fluoroscopic Diaphragm Study ([facility]): Marked decreased movement of the right hemidiaphragm [...] at ?? Obtain modified barium swallow at [facility] ?? Empiric trial of Igor 100 mg QD (for diaphragm) ?? Repeat spirometry at his next appointment ?? Recommend trial of discontinuing Symbicort ?? Will re-discuss Thoracic Surgery referral for plication pending above results ?? If his Safety Coordinator is agreeable, recommend time limited trial off beta-blockade ?? Note to be sent to Arelis Michele MD and Uriah Sommers MD ?? Follow-up with me in 12 weeks Closest hospital to home: [facility] (lives 1 hour 15 minutes from ) Steven Soliz MD, 09/05/2018, 1:22 PM Pulmonary & Critical Care Pager: [phone] documented in this encounter Plan of Treatment Upcoming Encounters Date Type Department Care Team (Late st Contact Info) Description 04/28/2024 12:00 PM EDT Appointment [place] [address] documented as of this encounter Procedures Procedure Name Priority Date/Time Associated Diagnosis Comments CREATININE Routine 09/05/2018 11:35 AM EST Diaphragm paralysis BUN Routine 09/05/2018 11:35 AM EST Diaphragm paralysis documented in this encounter Results * BUN (09/05/2018 11:35 AM EST) Blood Urea Nitrogen 17 10 - 20 mg/dL [facility] Blood specimen (specimen) 09/05/2018 11:35 AM EST 09/05/2018 11:40 AM EST Narrative Resulting Agency Comment Spec In Lab Steven Soliz MD CHEMISTRY ORDERABLES Performing Organization Address [facility] Co de Phone Number [facility] [place] [place] [address] * Creatinine (09/05/2018 11:35 AM EST) Creatinine 1.11 0.80 - 1.50 mg/dL [facility] Est Glomerular Filtration Rate 67 >=60 mL/min/1.7 3 m?? [facility] Comment: The eGFR was calculated using the CKD-EPI equation. As with all creatinine based estimates of kidney function, eGFR values calculated with the CKD-EPI equation are not accurate in patients with acute kidney failure, extremes of body mass or the acutely ill. http://[employer]/Rystonkf eGFR 78 >=60 mL/min/1.7 3 m?? [facility] Comment: The eGFR was calculated using the CKD-EPI equation. As with all creatinine based estimates of kidney function, eGFR values calculated with the CKD-EPI equation are not accurate in patients with acute kidney failure, extremes of body mass or the acutely ill. http://[employer]/DHMCnkf Blood specimen (specimen) 09/05/2018 11:35 AM EST 09/05/2018 11:40 AM EST Narrative Resulting Agency Comment Spec In Lab Steven Soliz MD CHEMISTRY ORDERABLES Performing Organization Address [facility] Co de Phone Number [facility] [place] [address] documented in this encounter Visit Diagnoses Diagnosis Diaphragm paralysis Disorders of diaphragm ZEPEDA (dyspnea on exertion) Other dyspnea and respiratory abnormality documented in this encounter Care Teams Hospitality Coordinator Relationship Specialty Start Date End Date Arelis Michele MD [address] [place] [address] PCP - General Family Medicine 08/01/18 02/11/24 documented as of this encounter
--- OUTSIDE RECORDS SUMMARY | 2024-04-07 03:24 | XMS_ITS | Encounter Summary ---
Author Organization [facility] [place] [address] Care Team Providers Care Home Theater Specialist Name Role Phone Arelis Michele MD Primary Care Provider [phone] Encounter Details Date Type Department Care Team (Late st Contact Info) Description 10/20/2018 12:15 PM EST Office [place] [address] Kandy Espana, RN [facility] [place] [address] Rheumatoid arthritis with positive rheumatoid factor, involving [...] this encounter Progress Notes * Kandy Espana, PARALEGALS - 10/20/2018 12:15 PM EST Established Patient Follow Up - Rheumatology Clinic Wesly Ybarra is a 68 y.o.male seen for ongoing evaluation and management of rheumatoid arthritis. He is accompanied by a cement mixer driver. Last RHEU OV: 04/2018. INTERVAL HISTORY: When last seen, reported had received Rituxan infusion in January 2018. [facility] (singleinfusion protocol/q 4 mo). Noted at that [...] Dr. Sommers ([facility] Cardiology). Seen by [facility] at last month. [...] 12:00 PM EDT Appointment [place] [address] documented as of this encounter Visit Diagnoses Diagnosis Rheumatoid arthritis with positive rheumatoid factor, involving unspecified site Medication monitoring encounter Encounter for therapeutic drug monitoring High risk medication use Encounter for long-term (current) use of other medications documented in this encounter Care Teams Home Theater Specialist Relationship Specialty Start Date End Date Arelis Michele MD [address] [place] [address] PCP - General Family Medicine 08/01/18 02/11/24 documented as of this encounter
--- OUTSIDE RECORDS SUMMARY | 2024-04-07 03:24 | XMS_ITS | Encounter Summary ---
Author Organization [facility] [place] [address] Care Team Providers Care Hearing Aid Repair Technician Name Role Phone Arelis Michele MD Primary Care Provider [phone] Encounter Details Date Type Department Care Team (Late st Contact Info) Description 07/22/2017 10:15 AM EST Office [place] [address] Kandy Espana, RN [facility] [place] [address] Rheumatoid arthritis with positive rheumatoid factor, involving [...] this encounter Progress Notes * Kandy Espana, AREA LOSS PREVENTION MANAGER - 07/22/2017 10:15 AM EST Established [...] monitoring; sicca symptoms. PLAN: ?? Rituxan at [facility] in 6 months. ?? Consider [facility] follow [...] 12:00 PM EDT [place] [address] documented as of this encounter [...] amyotrophy documented in this encounter Care Teams Hearing Aid Repair Technician Relationship Specialty Start Date End Date Arelis Michele MD [address] [place] [address] PCP - General 11/16/13 06/10/18 documented as of this encounter
--- OUTSIDE RECORDS SUMMARY | 2024-04-07 03:24 | XMS_ITS | Encounter Summary ---
[place] [address] Care Team Providers Care Tafe Lecturer Name Role Phone Arelis Michele MD Primary Care Provider [phone] Reason for Visit * Reason Onset Date Comments Questions 07/29/2018 Encounter Details Date Type Department Care Team (Late st Contact Info) Description 07/29/2018 Telephone [place] [phone] Lionel Rabago, RN Questions Social History Tobacco [...] Will order a fluoroscopic diaphragm test at [facility] (if they perform those tests) ?? Recommend his Glaze Handler determine if reasonable for time limited d/c [...] 1:26 PM EST Spoke with Billie at [facility]. Last infusion 2017. Labs in June. Billie [...] ??Looks like [facility] diagnostics pending and Gastroenterology ([facility] pending. Await these study results. * Telephone Encounter - Lionel Rabago RN - 07/29/2018 4:00 PM EST Billie from [facility] calls to check on status of infusion. Call returned, unavailable. Message left with call back number provided. documented in this encounter Plan of Treatment Upcoming Encounters Date Type Department Care Team (Late st Contact Info) Description 04/28/2024 12:00 PM EDT Appointment [place] [address] documented as of this encounter Visit Diagnoses Not on filedocumented in this encounter Care Teams Tafe Lecturer Relationship Specialty Start Date End Date Arelis Michele MD [address] [place] [address] PCP - General Family Medicine 08/01/18 02/11/24 documented as of this encounter
--- OUTSIDE RECORDS SUMMARY | 2024-04-07 03:24 | XMS_ITS | Encounter Summary ---
Author Organization [facility] [place] [address] Care Team Providers Care Fusing Machine Operator Name Role Phone Arelis Michele MD Primary Care Provider [phone] Encounter Details Date Type Department Care Team (Late st Contact Info) Description 04/16/2018 10:15 AM EDT Office [place] [address] Kandy Espana, RN [facility] [place] [address] Rheumatoid arthritis with positive rheumatoid factor, involving [...] encounter Progress Notes * Kandy Espana Joselin, MSWS - 04/16/2018 10:15 AM EDT Established Patient Follow Up - Rheumatology Clinic Wesly Ybarra is a 67 y.o.male seen for ongoing evaluation and management of rheumatoid arthritis. He is accompanied by a stock car driver. Last seen 07/2017. INTERVAL HISTORY: Received [...] yesterday. Career and had been home to [place] a couple weeks ago for his Mom's 90th birthday. Continues treatment for dry mouth and dry eyes. Continues to HOLD methotrexate. When last seen reported Most concerning is fatigue. 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 [facility] of [facility] (-) limitations in self-care, [...] depression, situational stress. PLAN: ?? Rituxan at [facility] at 16 weeks interval from prior. ?? [...] 12:00 PM EDT [place] [address] documented as of this encounter Visit Diagnoses Diagnosis Rheumatoid arthritis with positive rheumatoid factor, involving unspecified site Medication monitoring encounter Encounter for therapeutic drug monitoring High risk medication use Encounter for long-term (current) use of other medications documented in this encounter Care Teams Fusing Machine Operator Relationship Specialty Start Date End Date Arelis Michele MD [address] [place] [address] PCP - General 11/16/13 06/10/18 documented as of this encounter
--- OUTSIDE RECORDS SUMMARY | 2024-04-07 03:24 | XMS_ITS | Encounter Summary ---
[place] [address] Care Team Providers Care Group Insurance Special Agent Name Role Phone Arelis Michele MD Primary Care Provider [phone] Reason for Visit * Reason Onset Date Comments Other 09/26/2015 flare Encounter Details Date Type Department Care Team (Late st Contact Info) Description 09/26/2015 Telephone [place] [phone] Emily England RN Other (flare) Social History [...] but then he started getting them at [facility]. Told him it is probably likely his RA is flaring because of lack of treatment. Asked if he is on Medrol. He says he is currently on 4 mg Medrol daily. documented in this encounter Plan of Treatment Upcoming Encounters Date Type Department Care Team (Late st Contact Info) Description 04/28/2024 12:00 PM EDT Appointment [place] [address] documented as of this encounter Visit Diagnoses Not on filedocumented in this encounter Care Teams Group Insurance Special Agent Relationship Specialty Start Date End Date Arelis Michele MD [address] [place] [address] PCP - General 11/16/13 06/10/18 documented as of this encounter
--- OUTSIDE RECORDS SUMMARY | 2024-04-07 03:24 | XMS_ITS | Encounter Summary ---
[place] [address] Care Team Providers Care Raise Drill Operator Name Role Phone Arelis Michele MD Primary Care Provider [phone] Reason for Visit * Reason Onset Date Comments Other 06/15/2016 Rituxan infusion s Encounter Details Date Type Department Care Team (Late st Contact Info) Description 06/15/2016 Telephone [place] [phone] Guerline Taylor LPN Other (Rituxan infusions) Social [...] have his infusions to be done at [facility]. Could you send orders for Rituxan. Fax is [phone] and phone is [phone] documented in this encounter Plan of Treatment Upcoming Encounters Date Type Department Care Team (Late st Contact Info) Description 04/28/2024 12:00 PM EDT Appointment [place] [address] documented as of this encounter Visit Diagnoses Not on filedocumented in this encounter Care Teams Raise Drill Operator Relationship Specialty Start Date End Date Arelis Michele MD [address] [place] [address] PCP - General 11/16/13 06/10/18 documented as of this encounter
--- OUTSIDE RECORDS SUMMARY | 2024-04-07 03:24 | XMS_ITS | Encounter Summary ---
[place] [address] Care Team Providers Care Identity Access Management Architect Name Role Phone Arelis Michele MD Primary Care Provider [phone] Encounter Details Date Type Department Care Team (Late Contact Info) Description 12/23/2018 Tele[place] [address] Yumi Maxwell Social History Tobacco Use Types [...] 12:00 PM EDT [place] [address] documented as of this encounter Visit Diagnoses Not on filedocumented in this encounter Care Teams Identity Access Management Architect Relationship Specialty Start Date End Date Arelis Michele MD [address] [place] [address] PCP - General Family Medicine 08/01/18 02/11/24 documented as of this encounter
--- OUTSIDE RECORDS SUMMARY | 2024-04-07 03:24 | XMS_ITS | Encounter Summary ---
Author Organization [facility] [place] [address] Care Team Providers Care Inspector Optical Instrument Name Role Phone Arelis Michele MD Primary Care Provider [phone] Encounter Details Date Type Department Care Team (Late Contact Info) Description 09/05/2018 Tele[place] [address] Tiara Torres Social History Tobacco Use Types [...] 12:00 PM EDT [place] [address] documented as of this encounter Visit Diagnoses Not on filedocumented in this encounter Care Teams Inspector Optical Instrument Relationship Specialty Start Date End Date Berrian, Arelis M, MD [address] [place] [address] PCP - General Family Medicine 08/01/18 02/11/24 documented as of this encounter
--- OUTSIDE RECORDS SUMMARY | 2024-04-07 03:24 | XMS_ITS | Encounter Summary ---
[place] [address] Care Team Providers Care Health Promotion Specialist Name Role Phone Arelis Michele MD Primary Care Provider [phone] Encounter Details Date Type Department Care Team (Late st Contact Info) Description 09/23/2018 Tele[place] [address] Monty Green, RN Social History Tobacco Use [...] 12:00 PM EDT [place] [address] documented as of this encounter Visit Diagnoses Not on filedocumented in this encounter Care Teams Health Promotion Specialist Relationship Specialty Start Date End Date Arelis Michele MD [address] [place] [address] PCP - General Family Medicine 08/01/18 02/11/24 documented as of this encounter
--- OUTSIDE RECORDS SUMMARY | 2024-04-07 03:24 | XMS_ITS | Encounter Summary ---
[place] [address] Care Team Providers Care Instrument And Control Service Person Name Role Phone Arelis Michele MD Primary Care Provider [phone] Encounter Details Date Type Department Care Team (Late st Contact Info) Description 10/08/2018 Telephone [place] [address] Ramona Mcmahon Social History Tobacco Use Types [...] - 10/08/2018 10:47 AM EST Wesly Ybarra [id number] Diagnosis: screening 1. Have you ever had a colonoscopy before? [x] YES [] NO If Yes, Date of Last Hubbard: If yes, did you have any problems with the procedure? [] YES [] NO Explain: 2004 in [facility] What type of sedation was used: 2. Do you take any Blood Thinners? [] YES [x] NO If Yes, type: 3. Do you have a Pacemaker or Defibrillator device? [] YES [x] NO If Yes send inAgFlow message to [facility] ENDO DEVICE CHECK 4. Are you a diabetic? [] YES [x] NO If yes, controlled by meds or diet? 5. Do you have any Allergies to Eggs, Latex or Medications? [x] YES [] NO If Yes, what:___see [facility] 6. Do you take any Oral Iron [...] 12:00 PM EDT [place] [address] documented as of this encounter Visit Diagnoses Not on filedocumented in this encounter Care Teams Instrument And Control Service Person Relationship Specialty Start Date End Date Arelis Michele MD [address] [place] [address] PCP - General Family Medicine 08/01/18 02/11/24 documented as of this encounter
--- OUTSIDE RECORDS SUMMARY | 2024-04-07 03:24 | XMS_ITS | Encounter Summary ---
Author Organization [facility] [place] [address] Care Team Providers Care Rope Laying Machine Operator Name Role Phone Arelis Michele MD Primary Care Provider [phone] Encounter Details Date Type Department Care Team (Latest Contact Info) Description 08/13/2018 - 08/13/2018 11:59 PM EST Hospital Encounter [place] [address] [facility] [place] [address] Discharge Disposition: Home Social History Tobacco Use [...] 12:00 PM EDT [place] [address] documented as of this encounter Procedures Procedure Name Priority Date/Time Associated Diagnosis Comments FILM LIBRARY STORAGE ONLY DX CHEST Routine 08/13/2018 12:00 AM EST documented in this encounter Results * Film Library- Storage Only DX Chest (08/13/2018 12:00 AM EST) Narrative [facility] - 08/14/2018 9:21 AM EST This exam is for storage only and is auto-finalizing. Steven Soliz MD IMG FILM LIBRARY ORD ERABLES [place], [place] documented in this encounter Visit Diagnoses Not on filedocumented in this encounter Care Teams Rope Laying Machine Operator Relationship Specialty Start Date End Date Arelis Michele MD [address] [place] [address] PCP - General Family Medicine 08/01/18 02/11/24 documented as of this encounter
--- OUTSIDE RECORDS SUMMARY | 2024-04-07 03:24 | XMS_ITS | Encounter Summary ---
[place] [address] Care Team Providers Care Bead Filler Name Role Phone Arelis Michele MD Primary Care Provider [phone] Encounter Details Date Type Department Care Team (Late st Contact Info) Description 10/03/2015 - 10/03/2015 11:59 PM EST Hospital Encounter [place] [address] [address] Neha Temporary Pain Discharge Disposition: Home [...] 12:00 PM EDT Appointment [place] [address] documented as of this encounter Procedures Procedure Name Priority Date/Time Associated Diagnosis Comments FILM LIBRARY STORAGE ONLY MR HEAD AND SPINE Routine 10/03/2015 12:00 AM EST Pain documented in this encounter Results * Film Library- Storage only MR Head and Spine (10/03/2015 12:00 AM EST) Narrative [facility] - 02/08/2016 2:09 PM EDT This exam is for storage only and is auto-finalizing. Dr Sanchez [facility] FILM LIBRARY ORD ERABLES [place], [place] documented in this encounter Visit Diagnoses Diagnosis Pain Generalized pain documented in this encounter Care Teams Bead Filler Relationship Specialty Start Date End Date Arelis Michele MD [address] [place] [address] PCP - General 11/16/13 06/10/18 documented as of this encounter
--- OUTSIDE RECORDS SUMMARY | 2024-04-07 03:24 | XMS_ITS | Encounter Summary ---
Author Organization [facility] [place] [address] Care Team Providers Care Commodities Trader Name Role Phone Arelis Michele MD Primary Care Provider [phone] Encounter Details Date Type Department Care Team (Late st Contact Info) Description 02/07/2016 9:00 AM EDT Procedure [place] [address] George Ayoub MD [facility] [place] [address] Roz Orozco MD [facility] [place] [address] Brachial neuritis Social History Tobacco Use Types [...] - 02/07/2016 10:00 AM EDT NEUROLOGY CLINIC [facility] [place] [address] Facsimile: 02/07/2016 Neuromuscular Consultation Patient name: Wesly Ybarra Date of : 1950 Referring provider: Foster Dumas PA EMERGENCY DEPT [address] [place] [address] [place] [address] Wesly Ybarra is a 65 y.o. y.o. [...] his shoulder. [facility] [...] to this effect. 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 ROS: A 14-point [...] 12:00 PM EDT Appointment [place] [address] documented as of this encounter Visit Diagnoses Diagnosis Brachial neuritis Brachial neuritis or radiculitis nos documented in this encounter Care Teams Commodities Trader Relationship Specialty Start Date End Date Arelis Michele MD [address] [place] [address] PCP - General 11/16/13 06/10/18 documented as of this encounter
--- OUTSIDE RECORDS SUMMARY | 2024-04-07 03:24 | XMS_ITS | Encounter Summary ---
Author Organization [facility] [place] [address] Care Team Providers Care Diamond Assorter Name Role Phone Arelis Michele MD Primary Care Provider [phone] Encounter Details Date Type Department Care Team (Late st Contact Info) Description 10/31/2015 8:45 AM EST Office [place] [address] Kandy Espana, RN [facility] [address] Rheumatoid arthritis with positive rheumatoid factor, involving [...] this encounter Progress Notes * Kandy Espana, SWIMMING POOL CLEANER - 10/31/2015 8:48 AM EST Established Patient [...] scheduled follow up Neurology. ?? Rituxan at [facility] in 6 months. ?? Continue treatments for [...] 12:00 PM EDT [place] [address] documented as of this encounter Procedures Procedure [...] 10:07 AM EST) Neutrophil % 57.0 % [facility] Neutrophil Absolute 4.98 1.50 - 6.30 x10(3)/[facility] Lymph % 28.5 % [facility] Lymphocytes Abs 2.5 1.0 - 3.6 x10(3)/[facility] Monocyte % 9.3 % [facility] Monocyte Abs 0.8 0.2 - 1.0 x10(3)/[facility] Eos % 4.8 % [facility] Eosinophils Abs 0.4 0.0 - 0.5 x10(3)/[facility] Basophil % 0.2 % [facility] Baso Absolute 0.0 0.0 - 0.2 x10(3)/[facility] Immature Gran % 0.20 % [facility] Comment: Immature granulocytes(IG's)percentage and absolute count will include metamyelocytes, myelocytes, and promyelocytes. Blood smears from CBCs yielding IG's will be scanned manually for concordance. If this scan disagrees with the automated IG or if promyelocytes are noted, a manual differential will be performed. Immature Gran Absolute 0.02 0.00 - 0.05 x10(3)/[facility] Blood specimen (specimen) 10/31/2015 10:07 AM EST 10/31/2015 10:28 AM EST Narrative Resulting Agency Comment Spec In Lab Kalen De Anda MD HEMATOLOGY ORDERABLE S Performing Organization Address City/[facility]/ZIP Co de Phone Number [facility] [place] [address] * (ABNORMAL) Hemogram (10/31/2015 10:07 AM EST) White Blood Cell 8.7 4.0 - 10.0 x10(3)/mc L [facility] Red Blood Cell 5.22 4.63 - 6.08 x10(6)/mc L [facility] Hemoglobin 15.8 13.7 - 17.5 gm/dL [facility] Hematocrit 47.1 40.0 - 51.0 % [facility] Mean Cell Volume 90.2 79.0 - 92.0 fL [facility] Mean Cell Hemoglobin 30.3 25.6 - 32.2 pg [facility] Mean Cell Hemoglobin Concentration 33.5 32.0 - 36.5 gm/dL [facility] Platelet 214 145 - 370 x10(3)/mc L [facility] RDW Standard Deviation 47.8(H) 35.0 - 46.0 fL [facility] RDW coefficient of variation 14.6(H) 10.9 - 14.4 % [facility] Mean Platelet Volume 10.4 9.0 - 12.0 fL [facility] Blood specimen (specimen) 10/31/2015 10:07 AM EST 10/31/2015 10:28 AM EST Narrative Resulting Agency Comment Spec In Lab Kalen De Anda MD HEMATOLOGY ORDERABLE S Performing Organization Address City/[facility] Co de Phone Number [facility] [place] [address] * Hepatic Function Panel (10/31/2015 10:07 AM EST) Protein, Total 6.1 6.1 - 8.0 gm/dL [facility] Albumin 3.7 3.2 - 5.2 gm/dL [facility] Aspartate Aminotransferase 17 0 - 39 unit/L [facility] Alanine Aminotransferase 17 0 - 55 unit/L [facility] Alkaline Phosphatase 67 40 - 120 unit/L [facility] Bilirubin, Total 0.6 0.2 - 1.3 mg/dL [facility] Bilirubin, Direct 0.1 0.0 - 0.3 mg/dL [facility] Blood specimen (specimen) 10/31/2015 10:07 AM EST 10/31/2015 10:28 AM EST Narrative Resulting Agency Comment Spec In Lab Charlotte Gonzalez MD CHEMISTRY ORDERABLES Performing Organization Address City/State/[facility] Co de Phone Number [facility] [place] [phone] * High Sensitivity CRP (10/31/2015 10:07 AM EST) C-Reactive Protein High Sensitivity 1.8 mg/L [facility] Comment: Interpretations: 1) For accurate cardiac [...] Lab Kalen De Anda MD CHEMISTRY ORDERABLES [facility] [place] [address] * Comprehensive metabolic panel (non-fasting) (10/31/2015 10:07 AM EST) Glucose 95 65 - 199 mg/dL [facility] Comment:Diabetes: >=200 mg/d L plus symptoms Blood Urea Nitrogen 13 10 - 20 mg/dL [facility] Creatinine 0.97 0.80 - 1.50 mg/dL [facility] Comment: Please note that the pediatric reference intervals supplied above were not validated at [facility]. Results from pediatric patients should be interpreted in conjunction to the patient's age, height and muscle mass. Sodium 141 135 - 145 mmol/L [facility] Potassium 4.0 3.5 - 5.0 mmol/L [facility] Comment: Please note: ??Patients with WBC >100,000 may have falsely elevated Potassium levels. ??For accurate Potassium quantification in these patients send serum separator tube (gold top) for subsequent determinations. ??Contact the Clinical Chemistry Laboratory if there are any questions. Chloride 104 98 - 107 mmol/L [facility] Carbon Dioxide 26 22 - 31 mmol/L [facility] Anion Gap 11 5 - 15 mmol/L [facility] Calcium 8.9 8.5 - 10.5 mg/dL [facility] Protein, Total 6.1 6.1 - 8.0 gm/dL [facility] Albumin 3.7 3.2 - 5.2 gm/dL [facility] Aspartate Aminotransferase 17 0 - 39 unit/L [facility] Alanine Aminotransferase 17 0 - 55 unit/L [facility] Alkaline Phosphatase 67 40 - 120 unit/L [facility] Bilirubin, Total 0.6 0.2 - 1.3 mg/dL [facility] Bilirubin, Direct 0.1 0.0 - 0.3 mg/dL [facility] Est Glomerular Filtration Rate >60 >=60 [facility] Comment: This estimated GFR (eGFR) value [...] the following links into your internet browser. [email or web address] Blood specimen (specimen) 10/31/2015 10:07 AM EST 10/31/2015 10:28 AM EST Narrative Resulting Agency Comment Spec In Lab Kalen De Anda MD CHEMISTRY ORDERABLES [facility] [place] [address] documented in this encounter Visit Diagnoses Diagnosis Rheumatoid arthritis with positive rheumatoid factor, involving unspecified site [M05.70] High risk medication use Encounter for long-term (current) use of other medications Medication monitoring encounter Encounter for therapeutic drug monitoring Encounter for long-term current use of medication documented in this encounter Care Teams Diamond Assorter Relationship Specialty Start Date End Date Arelis Michele MD [address] [place] [address] PCP - General 11/16/13 06/10/18 documented as of this encounter
--- OUTSIDE RECORDS SUMMARY | 2024-04-07 03:24 | XMS_ITS | Encounter Summary ---
Author Organization [facility] [place] [address] Care Team Providers Care Cosmetic Surgeon Name Role Phone Arelis Michele MD Primary Care Provider [phone] Encounter Details Date Type Department Care Team (Late st Contact Info) Description 01/07/2018 1:00 PM EDT Office [place] [address] Kandy Espana, RN [facility] [place]HEUMAT[place] [address] Rheumatoid arthritis with positive rheumatoid factor, involving [...] this encounter Progress Notes * Kandy Espana, BRUSH HOLDER INSPECTOR - 01/07/2018 1:00 PM EDT Established Patient Follow Up - Rheumatology Clinic Wesly Ybarra is a 67 y.o.male seen for ongoing evaluation and management of rheumatoid arthritis. He is accompanied by a regional truck driver. Last seen 07/2017. INTERVAL HISTORY: [...] depression, situational stress. PLAN: ?? Rituxan at [facility] in 6 months. ?? Continue to HOLD [...] EDT [place]oint[place] [address] documented as of this encounter [...] disorder documented in this encounter Care Teams Cosmetic Surgeon Relationship Specialty Start Date End Date Arelis Michele MD [address] [place] [address] PCP - General 11/16/13 06/10/18 documented as of this encounter
--- OUTSIDE RECORDS SUMMARY | 2024-04-07 03:24 | XMS_ITS | Encounter Summary ---
Author Organization [facility] [place] [address] Care Team Providers Care Student Officer Name Role Phone Arelis Michele MD Primary Care Provider [phone] Reason for Visit * Reason Comments IV Medication * High Dollar Medication (Routine) - Specialty Diagnoses / Procedures Referred By Azam corbett Referred To Contact Med Infusion Diagnoses Rheumatoid arthritis with positive rheumatoid factor, involving unspecified site Kandy Espana, RN [facility] [place] [address] [facility] Med Infusion [address] [place] [phone] Referral ID Status Reason Start Date Expiration Date V isits Requested Visits Authorized [id number] Consult, Test & Treat 10/07/2015 10/06/2016 3 3 Encounter Details Date Type Department Care Team (Latest Contact Info) Description 10/31/2015 10:13 AM EST - 10/31/2015 11:59 PM EST Hospital En[place] [address] Rheumatoid arthritis with positive rheumatoid [...] 12:00 PM EDT [place] [address] documented as of this encounter [...] mg documented in this encounter Care Teams Student Officer Relationship Specialty Start Date End Date Arelis Michele MD [address] [place] [address] PCP - General 11/16/13 06/10/18 documented as of this encounter
--- OUTSIDE RECORDS SUMMARY | 2024-04-07 03:24 | XMS_ITS | Encounter Summary ---
[place] [address] Care Team Providers Care Fitness Centre Manager Name Role Phone Arelis Michele MD Primary Care Provider [phone] Reason for Visit * Reason Onset Date Comments Other 04/21/2018 Encounter Details Date Type Department Care Team (Late Contact Info) Description 04/21/2018 [place] [address] Lionel Rabago, RN Other Social [...] - 04/21/2018 10:18 AM EDT Billie from [facility] calls, requests new orders for Rituxan infusion, expires 05/16. documented in this encounter Plan of Treatment Upcoming Encounters Date Type Department Care Team (Late Contact Info) Description 04/28/2024 12:00 PM EDT [place] [address] documented as of this encounter Visit Diagnoses Not on filedocumented in this encounter Care Teams Fitness Centre Manager Relationship Specialty Start Date End Date Arelis Michele MD [address] [place] [address] PCP - General 11/16/13 06/10/18 documented as of this encounter
--- OUTSIDE RECORDS SUMMARY | 2024-04-07 03:24 | XMS_ITS | Encounter Summary ---
[place] [address] Care Team Providers Care Lighting Equipment Operator Name Role Phone Arelis Michele MD Primary Care Provider Encounter Details Date Type Department Care Team (Late st Contact Info) Description 02/09/2016 [place] [address] Sean Orozco MD [facility] [place] [address] Social History Tobacco Use Types Packs/Day Years [...] hopefully along with another visit to [facility] like rheum 02/27. documented in this encounter Plan of Treatment Upcoming Encounters Date Type Department Care Team (Late st Contact Info) Description 04/28/2024 12:00 PM EDT Appointment [place] [address] documented as of this encounter Visit Diagnoses Diagnosis Brachial neuritis Brachial neuritis or radiculitis nos documented in this encounter Care Teams Lighting Equipment Operator Relationship Specialty Start Date End Date Arelis Michele MD [address] [place] [address] PCP - General 11/16/13 06/10/18 documented as of this encounter
--- OUTSIDE RECORDS SUMMARY | 2024-04-07 03:24 | XMS_ITS | Encounter Summary ---
[place] [address] Care Team Providers Care Foreign Language Stenographer Name Role Phone Arelis Michele MD Primary Care Provider [phone] Encounter Details Date Type Department Care Team (Late st Contact Info) Description 12/30/2015 - 12/30/2015 11:59 PM EDT Hospital Encounter [place] [address] [address] Neha Temporary Pain Discharge Disposition: Home [...] 12:00 PM EDT [place] [address] documented as of this encounter Procedures Procedure [...] and is auto-finalizing. Dr Sanchez [facility] FILM LIBRARY ORD ERABLES Performing Organization Address City/State/[facility] Co de Phone Number [place], [place] documented in this encounter Visit Diagnoses Diagnosis Pain Generalized pain documented in this encounter Care Teams Foreign Language Stenographer Relationship Specialty Start Date End Date Arelis Michele MD [address] [place] [address] PCP - General 11/16/13 06/10/18 documented as of this encounter
--- OUTSIDE RECORDS SUMMARY | 2024-04-07 03:24 | XMS_ITS | Encounter Summary ---
Author Organization [facility] [place] [address] Care Team Providers Care Neurosurgical Physician Assistant Name Role Phone Andrew White DO Primary Care Provider [phone] Encounter Details Date Type Department Care Team (Late st Contact Info) Description 07/08/2018 Orders [place] [address] Steven Soliz MD [facility] [place] [address] SOB (shortness of breath) Social History Tobacco [...] 12:00 PM EDT [place]ointment [place] [address] documented as of this encounter Visit Diagnoses Diagnosis SOB (shortness of breath) Shortness of breath documented in this encounter Care Teams Neurosurgical Physician Assistant Relationship Specialty Start Date End Date Andrew White DO [address] [place] [address] PCP - General Family Medicine 06/11/18 07/31/18 documented as of this encounter
--- OUTSIDE RECORDS SUMMARY | 2024-04-07 03:24 | XMS_ITS | Encounter Summary ---
Author Organization [facility] [place] [address] Care Team Providers Care Apple Turner Name Role Phone Arelis Michele MD Primary Care Provider [phone] Reason for Referral * High Dollar Medication (Routine) - Specialty Diagnoses / Procedures Referred By Contmabel t Referred To Contact Med Infusion Diagnoses Rheumatoid arthritis with positive rheumatoid factor, involving unspecified site Kandy Espana, [facility] [place] [address] [facility] Med Infusion [address] [place] [phone] Referral ID Status Reason Start Date Expiration Date V isits Requested Visits Authorized [id number] Consult, Test & Treat 10/07/2015 10/06/2016 3 3 Encounter Details Date Type Department Care Team (Late st Contact Info) Description 10/07/2015 Orders [place] [address] Kandy Espana, RN [facility] [place] [address] Rheumatoid arthritis with positive rheumatoid [...] 12:00 PM EDT [place] [address] Scheduled Referrals Name Type Priority Associated Diagnoses Orde r Schedule Auth Request for Infusion Medication Outpatient Referral Routine Rheumatoid arthritis with positive rheumatoid factor, involving unspecified site [M05.70] Ordered: 10/07/2015 documented as of this encounter Visit Diagnoses Diagnosis Rheumatoid arthritis with positive rheumatoid factor, involving unspecified site [M05.70] documented in this encounter Care Teams Apple Turner Relationship Specialty Start Date End Date Arelis Michele MD [address] [place] [address] PCP - General 11/16/13 06/10/18 documented as of this encounter
--- OUTSIDE RECORDS SUMMARY | 2024-04-07 03:24 | XMS_ITS | Encounter Summary ---
[place] [address] Care Team Providers Care African History Professor Name Role Phone Arelis Michele MD Primary Care Provider Encounter Details Date Type Department Care Team (Late st Contact Info) Description 02/08/2016 External [place] [address] George Ayoub MD [facility] [place] [address] Social History Tobacco Use Types Packs/Day Years [...] 12:00 PM EDT [place] [address] documented as of this encounter Procedures Procedure Name Priority Date/Time Associated Diagnosis Comments EMG SCAN Routine 02/07/2016 documented in this encounter Results * Scan Doc: EMG (02/07/2016) George Ayoub MD MEDIA MGR SCAN EXT O RDR/RSLT documented in this encounter Visit Diagnoses Not on filedocumented in this encounter Care Teams African History Professor Relationship Specialty Start Date End Date Arelis Michele MD [address] [place] [address] PCP - General 11/16/13 06/10/18 documented as of this encounter
--- OUTSIDE RECORDS SUMMARY | 2024-04-07 03:24 | XMS_ITS | Encounter Summary ---
Author Organization [facility] [place] [address] Care Team Providers Care Wedding Makeup Artist Name Role Phone ChristopherAndrew fournier DO Primary Care Provider Encounter Details Date Type Department Care Team (Late st Contact Info) Description 07/31/2018 Orders [place] [address] Steven Soliz MD [facility] [place] [address] SOB (shortness of breath) Social History Tobacco [...] 12:00 PM EDT [place] [address] documented as of this encounter Results * [...] breath documented in this encounter Care Teams Wedding Makeup Artist Relationship Specialty Start Date End Date Andrew White DO [address] [place] [address] PCP - General Family Medicine 06/11/18 07/31/18 documented as of this encounter
--- OUTSIDE RECORDS SUMMARY | 2024-04-07 03:24 | XMS_ITS | Encounter Summary ---
[place] [address] Care Team Providers Care Printing Press Machine Operator Name Role Phone Arelis Michele MD Primary Care Provider [phone] Encounter Details Date Type Department Care Team (Latest Contact Info) Description 08/01/2018 10:00 AM EST - 08/01/2018 11:59 PM EST Hospital En[place] [address] SOB (shortness of breath) Discharge Disposition: Home [...] 12:00 PM EDT [place] [address] documented as of this encounter Procedures Procedure [...] breath documented in this encounter Care Teams Printing Press Machine Operator Relationship Specialty Start Date End Date Arelis Michele MD [address] [place] [address] PCP - General Family Medicine 08/01/18 02/11/24 documented as of this encounter
--- OUTSIDE RECORDS SUMMARY | 2024-04-07 03:25 | XMS_ITS | Encounter Summary ---
[place] [address] Care Team Providers Care Scrubbing Machine Operator Name Role Phone Arelis Michele MD Primary Care Provider [phone] Reason for Visit * Reason Comments IV Medication Encounter Details Date Type Department Care Team (Latest Contact Info) Description 08/17/2014 10:26 AM EST - 08/17/2014 11:59 PM EST Hospital Encounter [place] [address] CLIN[facility], DR SWAPNA DEE (rheumatoid arthritis) Social [...] 12:00 PM EDT Appointment [place] [address] documented as of this encounter Visit Diagnoses [...] mg documented in this encounter Care Teams Scrubbing Machine Operator Relationship Specialty Start Date End Date Arelis Michele MD [address] [place] [address] PCP - General 11/16/13 06/10/18 documented as of this encounter
--- OUTSIDE RECORDS SUMMARY | 2024-04-07 03:25 | XMS_ITS | Encounter Summary ---
Author Organization [facility] [place] [address] Care Team Providers Care Special Tester Name Role Phone Arelis Michele MD Primary Care Provider [phone] Reason for Visit * Reason Comments Rheumatoid Arthritis Encounter Details Date Type Department Care Team (Late st Contact Info) Description 05/18/2014 12:45 PM EDT [place] [address] Kandy Espana, RN [facility] [place] [address] Rheumatoid arthritis(714.0) (Primary Dx); High risk medication [...] Received and reviewed office notes (DOS 03/25/2014) [facility] -> undergoing workup Cardiology and PULM documented in this encounter Plan of Treatment Upcoming Encounters Date Type Department Care Team (Late st Contact Info) Description 04/28/2024 12:00 PM EDT [place] [address] documented as of this encounter Visit Diagnoses Diagnosis Rheumatoid arthritis(714.0)- Primary Rheumatoid arthritis High risk medication use Encounter for long-term (current) use of other medications Encounter for long-term (current) use of other medications Cardiomyopathy Other primary cardiomyopathies documented in this encounter Care Teams Special Tester Relationship Specialty Start Date End Date Arelis Michele MD [address] [place] [address] PCP - General 11/16/13 06/10/18 documented as of this encounter
--- OUTSIDE RECORDS SUMMARY | 2024-04-07 03:25 | XMS_ITS | Encounter Summary ---
Author Organization [facility] [place] [address] Care Team Providers Care Underground Truck Operator Name Role Phone Arelis Michele MD Primary Care Provider [phone] Encounter Details Date Type Department Care Team (Latest Contact Info) Description 11/16/2013 10:54 AM EDT - 11/16/2013 11:59 PM EDT Hospital [place] [address] SCHEDULE 1, PFT Robin Dodge MD [facility] [place] [address] SOB (shortness of breath) (Primary Dx) Discharge [...] 12:00 PM EDT [place] [address] documented as of this encounter Procedures Procedure Name Priority Date/Time Associated Diagnosis Comments COMMON PULMONARY FUNCTION TEST Routine 11/16/2013 2:20 PM EDT SOB (shortness of breath) documented in this encounter Results * Pulmonary Function Testing (11/16/2013 2:20 PM EDT) Narrative Robin oDdge MD - 11/16/2013 2:20 PM EDT Robin [...] bronchoprovocation challenge test. Robin Dodge M.D. Robin Ddoge MD PFT ORDERABLES documented in this encounter Visit Diagnoses Diagnosis SOB (shortness of breath)- Primary Shortness of breath documented in this encounter Care Teams Underground Truck Operator Relationship Specialty Start Date End Date Arelis Michele MD [address] [place] [address] PCP - General 11/16/13 06/10/18 documented as of this encounter
--- OUTSIDE RECORDS SUMMARY | 2024-04-07 03:25 | XMS_ITS | Encounter Summary ---
Author Organization Formerly [facility] [place] [address] Care Team Providers Care Archaeologist Name Role Phone Arelis Michele MD Primary Care Provider Reason for Referral * Consultation (Routine) - Closed Specialty Diagnoses / Procedures Referred By Azam corbett Referred To Contact Med Infusion Diagnoses Rheumatoid arthritis Kandy Espana, RN [facility] [place] [address] [facility] Med Infusion [address] [place] [phone] Referral ID Status Reason Start Date Expiration Date V isits Requested Visits Authorized [id number] Closed Consult, Test & Treat 01/05/2015 01/05/2016 1 1 Encounter Details Date Type Department Care Team (Late st Contact Info) Description 01/05/2015 Orders [place] [address] Kandy Espana, RN [facility] [place] [address] Rheumatoid arthritis Social History Tobacco Use Types [...] 12:00 PM EDT [place] [address] Scheduled Referrals Name Type Priority Associated Diagnoses Orde r Schedule Referral to Infusion Clinic Outpatient Referral Routine Rheumatoid arthritis Ordered: 01/05/2015 documented as of this encounter Visit Diagnoses Diagnosis Rheumatoid arthritis documented in this encounter Care Teams Archaeologist Relationship Specialty Start Date End Date Arelis Michele MD [address] [place] [address] PCP - General 11/16/13 06/10/18 documented as of this encounter
--- OUTSIDE RECORDS SUMMARY | 2024-04-07 03:25 | XMS_ITS | Encounter Summary ---
[place] [address] Care Team Providers Care Clothes Model Name Role Phone Kamila Rodney MD Primary Care Provider [phone] Reason for Referral * Consultation (Routine) - Closed Specialty Diagnoses / Procedures Referred By Azam corbett Referred To Contact Pulmonology Diagnoses Dry cough Kandy Espana, RN [facility] [place] [address] [facility] [address] [place] [phone] Referral ID Status Reason Start Date Expiration Date V isits Requested Visits Authorized [id number] Closed Consult, Test & Treat 08/11/2013 02/07/2014 1 1 Reason for Visit * Reason Comments Follow-up Encounter Details Date Type Department Care Team (Late st Contact Info) Description 08/11/2013 1:45 PM EST Follow-[place] [address] Kandy Espana, RN [facility] [place] [address] Rheumatoid arthritis; High risk medication [...] Patient Instructions * Patient Instructions* Kandy Espana, QUALITY SYSTEMS TECHNICIAN - 08/11/2013 3:05 PM EST ?? Referral [...] Prevnar 13 vaccine - provided today - [facility] handout (patient). No AE. ?? Will review [...] PM EDT Appointment [place] [address] Scheduled Referrals Name Type Priority [...] abnormality documented in this encounter Care Teams Clothes Model Relationship Specialty Start Date End Date Kamila Rodney MD HOSPITALIST SERVICES [address] [place] [address] [place] [address] PCP - General 07/25/10 11/08/13 documented as of this encounter
--- OUTSIDE RECORDS SUMMARY | 2024-04-07 03:25 | XMS_ITS | Encounter Summary ---
Author Organization [facility] [place] [address] Care Team Providers Care Assistant Health Educator Name Role Phone Lee Michele MD Primary Care Provider [phone] Encounter Details Date Type Department Care Team (Late st Contact Info) Description 12/15/2014 10:45 AM EDT [place] [address] Kandy Espana, RN [facility] [place] [address] Rheumatoid arthritis(794.0); High risk medication use; Encounter for long-term [...] EDT [place] [address] Scheduled Orders Name Type Priority Associated Diagnoses [...] MD HEMATOLOGY ORDERABLE S Performing Organization Address City/[facility] Co de Phone Number [facility] DENISEIUM * Sedimentation rate (12/15/2014 12:29 PM EDT) Pathologist [facility] Sedimentation Rate Automated 6 0 - 15 mm/hr [facility] PENELOPEENNIUM Blood specimen (specimen) 12/15/2014 12:29 PM EDT 12/15/2014 12:41 PM EDT Narrative Resulting Agency Comment Spec In Lab Serina Cannon MD HEMATOLOGY ORDERABLE S Performing Organization Address City/[facility] Co de Phone Number [facility]ENTERI[facility] * High Sensitivity CRP (12/15/2014 12:29 PM EDT) C-Reactive Protein High Sensitivity 2.9 mg/L [facility] MILLHAV[facility]ENTERIUM Comment: Interpretations: 1) For accurate cardiac risk [...] Cannon MD CHEMISTRY ORDERABLES Performing Organization Address City/[facility]/ZIP Co de Phone Number CERNER PENELOPEENNIUM * Lactate Dehydrogenase (12/15/2014 12:29 PM EDT) Lactate Dehydrogenase 182 110 - 220 unit/L [facility] MILLENNIUM Blood specimen (specimen) 12/15/2014 12:29 PM EDT 12/15/2014 12:41 PM EDT Narrative Resulting Agency Comment Spec In Lab Serina Cannon MD CHEMISTRY ORDERABLES Performing Organization Address City/[facility] Co de Phone Number CERFRANKIE NEGRETEENNIUM * Comprehensive metabolic panel (non-fasting) (12/15/2014 12:29 PM EDT) Glucose 90 60 - 199 mg/dL CERNER MILLENNIUM Comment:Diabetes: >=200 mg/d L plus symptoms Blood Urea Nitrogen 18 10 - 20 mg/dL [facility] MILLENNIUM Creatinine 0.91 0.80 - 1.50 mg/dL CERNER MILLENNIUM Comment: Please note that the pediatric reference intervals supplied above were not validated at [facility]. Results from pediatric patients should be interpreted [...] the following links into your internet browser. [email or web address] Blood specimen (specimen) 12/15/2014 12:29 PM EDT [...] neck documented in this encounter Care Teams Assistant Health Educator Relationship Specialty Start Date End Date Lee Michele MD [address] [place] [address] PCP - General 11/16/13 06/10/18 documented as of this encounter
--- OUTSIDE RECORDS SUMMARY | 2024-04-07 03:25 | XMS_ITS | Encounter Summary ---
[place] [address] Care Team Providers Care Marketing Financial Analyst Name Role Phone Arelis Michele MD Primary Care Provider [phone] Encounter Details Date Type Department Care Team (Latest Contact Info) Description 06/08/2015 12:15 PM EDT [place] [address] Rheumatoid arthritis; High risk medication use; Medication [...] 12:00 PM EDT [place] [address] documented as of this encounter Procedures Procedure [...] MD HEMATOLOGY ORDERA BLES Performing Organization Address [facility]/ZIP Co de Phone Number CERNER MILLENNIUM * (ABNORMAL) Hemogram (06/08/2015 11:45 AM EDT) Pathologist [facility] White Blood Cell 7.2 4.0 - 10.0 [...] panel (non-fasting) (06/08/2015 11:45 AM EDT) Pathologist [facility] Glucose 94 65 - 199 mg/dL CERNER MILLENNIUM Comment:Diabetes: >=200 mg/d L plus symptoms Blood Urea Nitrogen 7(L) 10 - 20 mg/dL CERNER MILLENNIUM Creatinine 0.85 0.80 - 1.50 mg/dL CERNER MILLENNIUM Comment: Please note that the pediatric reference intervals supplied above were not validated at [facility]. Results from pediatric [...] the following links into your internet browser. [email or web address] Blood specimen (specimen) 06/08/2015 11:45 AM EDT 06/08/2015 11:56 AM EDT Narrative Resulting Agency Comment Spec In Lab Doe Obrien MD CHEMISTRY ORDERAB LES CARLOS DENNIS * Sedimentation rate (06/08/2015 11:45 AM EDT) Pathologist [facility] Sedimentation Rate Automated 9 0 - 15 mm/hr [facility] DENNIS Blood specimen (specimen) 06/08/2015 11:45 AM EDT 06/08/2015 11:56 AM EDT Narrative Resulting Agency Comment Spec In Lab Doe Obrien MD HEMATOLOGY ORDERA BLES Performing Organization Address [facility] Phone Number CARLOS NEGRETECarbolytic MaterialsMARVA * High Sensitivity CRP (06/08/2015 11:45 AM EDT) Pathologist [facility] C-Reactive Protein High Sensitivity 5.0 mg/L [facility] Comment: Interpretations: 1) For accurate [...] MD CHEMISTRY ORDERAB LES Performing Organization Address [facility] de Phone Number CARLOS DENNIS documented in this encounter Visit Diagnoses Diagnosis Rheumatoid arthritis High risk medication use Encounter for long-term (current) use of other medications Medication monitoring encounter Encounter for therapeutic drug monitoring Cough documented in this encounter Care Teams Marketing Financial Analyst Relationship Specialty Start Date End Date Arelis Michele MD [address] [place] [address] PCP - General 11/16/13 06/10/18 documented as of this encounter
--- OUTSIDE RECORDS SUMMARY | 2024-04-07 03:25 | XMS_ITS | Encounter Summary ---
Author Organization Formerly [facility] [place] [address] Care Team Providers Care Daily Release And Dupe Printer Name Role Phone Gloria Espinoza MD Primary Care Provider [phone] Encounter Details Date Type Department Care Team (Late st Contact Info) Description 06/16/2013 2:49 PM EDT - 06/16/2013 11:59 PM EDT Hospital Encounter XRay at [address] [place] [address] Cough Social History Tobacco Use Types Packs/Day [...] 12:00 PM EDT [place] [address] documented as of this encounter Procedures Procedure [...] 2 VIEWS Clinical History dry cough on residential methotrexate for RA Comparison Chest radiograph 06/04/2007, [...] 2 VIEWS Clinical History dry cough on residential methotrexate for RA Comparison Chest radiograph 06/04/2007, [...] Cough documented in this encounter Care Teams Daily Release And Dupe Printer Relationship Specialty Start Date End Date Gloria Espinoza MD HOSPITALIST SERVICES [address] [place] [address] [place] [address] PCP - General 07/25/10 11/08/13 documented as of this encounter
--- OUTSIDE RECORDS SUMMARY | 2024-04-07 03:25 | XMS_ITS | Encounter Summary ---
Author Organization [facility] [place] [address] Care Team Providers Care Assurance Engineer Name Role Phone Arelis Michele MD Primary Care Provider [phone] Reason for Referral * Consultation (Routine) - Closed Specialty Diagnoses / Procedures Referred By Azam corbett Referred To Contact Radiology Diagnoses Cough Procedures XR Chest Routine PA & Lateral Kandy Espana, RN [facility] [place] [address] [place] [address] Referral ID Status Reason Start Date Expiration Date V isits Requested Visits Authorized [id number] Closed Specialty Service Requested 06/08/2015 06/07/2016 1 1 Reason for Visit * Reason Comments Follow-up Encounter Details Date Type Department Care Team (Late st Contact Info) Description 06/08/2015 11:00 AM EDT Office [place] [address] Kandy Espana, RN [facility] [place] [address] Rheumatoid arthritis; High risk medication [...] update. Guillermina Espana Nurse Practitioner Rheumatology Clinic [address] [address] documented in this encounter Progress Notes * [...] 01/13/2015 at . Next infusion planned at [facility]. (4 month interval/single infusion). Reports hand stiffness, [...] 12:00 PM EDT Appointment [place] [address] documented as of this encounter Results * [...] intervals supplied above were not validated at [facility]. Results from pediatric patients should be interpreted [...] the following links into your internet browser. [email or web address] Blood specimen (specimen) 06/08/2015 11:45 AM EDT 06/08/2015 11:56 AM EDT Narrative Resulting Agency Comment Spec In Lab Doe Obrien MD CHEMISTRY ORDERAB LES Performing Organization Address [facility] Phone Number [facility]CL[facility]RI[facility] * Sedimentation rate (06/08/2015 11:45 AM EDT) Sedimentation Rate Automated 9 0 - 15 mm/hr [facility] Blood specimen (specimen) 06/08/2015 11:45 AM EDT 06/08/2015 11:56 AM EDT Narrative Resulting Agency Comment Spec In Lab Doe Obrien MD HEMATOLOGY ORDERA BLES Performing Organization Address [facility] de Phone Number [facility] * High Sensitivity CRP (06/08/2015 11:45 AM EDT) C-Reactive Protein High Sensitivity 5.0 mg/L [facility] Comment: Interpretations: 1) For accurate cardiac [...] MD CHEMISTRY ORDERAB LES Performing Organization Address City/State/[facility] Co de Phone Number [facility] documented in this encounter Visit Diagnoses Diagnosis Rheumatoid arthritis High risk medication use Encounter for long-term (current) use of other medications Medication monitoring encounter Encounter for therapeutic drug monitoring Cough Cough documented in this encounter Care Teams Assurance Engineer Relationship Specialty Start Date End Date Arelis Michele MD [address] [place] [address] PCP - General 11/16/13 06/10/18 documented as of this encounter
--- OUTSIDE RECORDS SUMMARY | 2024-04-07 03:25 | XMS_ITS | Encounter Summary ---
[place] [address] Care Team Providers Care Home Support Worker Name Role Phone Arelis Michele MD Primary Care Provider [phone] Reason for Visit * Reason Comments IV Medication Encounter Details Date Type Department Care Team (Latest Contact Info) Description 01/28/2014 11:06 AM EDT - 01/28/2014 11:59 PM EDT Hospital En[place] [address] CLINIC, DR CALHOUN RA (rheumatoid arthritis) Social [...] 12:00 PM EDT [place] [address] documented as of this encounter Visit Diagnoses [...] mg documented in this encounter Care Teams Home Support Worker Relationship Specialty Start Date End Date Arelis Michele MD [address] [place] [address] PCP - General 11/16/13 06/10/18 documented as of this encounter
--- OUTSIDE RECORDS SUMMARY | 2024-04-07 03:25 | XMS_ITS | Encounter Summary ---
Author Organization Formerly [facility] [place] [address] Care Team Providers Care Brake Lining Driller Name Role Phone Arelis Michele MD Primary Care Provider [phone] Encounter Details Date Type Department Care Team (Late Contact Info) Description 12/16/2013 Telephone [place] [address] Arcenio Melendrez, RN Social History [...] 12:00 PM EDT [place] [address] documented as of this encounter Visit Diagnoses Not on filedocumented in this encounter Care Teams Brake Lining Driller Relationship Specialty Start Date End Date Arelis Michele MD [address] [place] [address] PCP - General 11/16/13 06/10/18 documented as of this encounter
--- OUTSIDE RECORDS SUMMARY | 2024-04-07 03:25 | XMS_ITS | Encounter Summary ---
[place] [address] Care Team Providers Care Bottom Painter Name Role Phone Arelis Michele MD Primary Care Provider [phone] Reason for Visit * Reason Comments IV Medication Encounter Details Date Type Department Care Team (Latest Contact Info) Description 01/13/2015 10:30 AM EDT - 01/13/2015 11:59 PM EDT Hospital En[place] [address] CLINIC, DR [facility]N Rheumatoid arthritis Social History [...] 12:00 PM EDT Appointment [place] [address] documented as of this encounter Visit Diagnoses [...] mg documented in this encounter Care Teams Bottom Painter Relationship Specialty Start Date End Date Arelis Michele MD [address] [place] [address] PCP - General 11/16/13 06/10/18 documented as of this encounter
--- OUTSIDE RECORDS SUMMARY | 2024-04-07 03:25 | XMS_ITS | Encounter Summary ---
Author Organization [facility] [place] [address] Care Team Providers Care Drawing In Hand Name Role Phone Arelis Michele MD Primary Care Provider [phone] Encounter Details Date Type Department Care Team (Late st Contact Info) Description 12/24/2013 12:00 PM EDT Follow-Up [place] [address] Kandy Espana, RN [facility] [place] [address] Rheumatoid arthritis(714.0) (Primary Dx); High risk medication [...] this encounter Progress Notes * Kandy Espana, [facility] - 12/24/2013 12:01 PM EDT Established Patient [...] 12:00 PM EDT Appointment [place] [address] documented as of this encounter Procedures Procedure [...] 12:54 PM EDT) Quantiferon-TB Gold Negative Negative [facility] Comment: Nil (IU/mL)= 0.15 TB Ag minus [...] ROMEO SOLORZANO Performing Organization Address City/State/ZIP Co ca Phone Number CARLOS NEGRETEPostcard & TagAFFINITY HEALTH PART[facility]ERS documented in this encounter Visit Diagnoses Diagnosis [...] unspecified documented in this encounter Care Teams Drawing In Hand Relationship Specialty Start Date End Date Arelis Michele MD [address] [place] [address] PCP - General 11/16/13 06/10/18 documented as of this encounter
--- OUTSIDE RECORDS SUMMARY | 2024-04-07 03:25 | XMS_ITS | Encounter Summary ---
[place] [address] Care Team Providers Care Homemaker Companion Name Role Phone Arelis Michele MD Primary Care Provider [phone] Encounter Details Date Type Department Care Team (Late st Contact Info) Description 03/04/2014 Orders [place] [address] Emily England, RN Post-nasal drip (Primary Dx) [...] Appointment [place] [address] documented as of this encounter Visit Diagnoses Diagnosis Post-nasal drip- Primary Postnasal drip documented in this encounter Care Teams Homemaker Companion Relationship Specialty Start Date End Date Arelis Michele MD [address] [place] [address] PCP - General 11/16/13 06/10/18 documented as of this encounter
--- OUTSIDE RECORDS SUMMARY | 2024-04-07 03:25 | XMS_ITS | Encounter Summary ---
[place] [address] Care Team Providers Care Forestry Tree Pruner Name Role Phone Arelis Michele MD Primary Care Provider [phone] Reason for Visit * Reason Onset Date Comments Other 02/15/2014 instructions. Encounter Details Date Type Department Care Team (Late st Contact Info) Description 02/15/2014 [place] [address] Kristy Corbett LPN Other (instructions.) Social History [...] a heart catheterization done last [facility] at [facility] andhe said he was told that the medications he is on from the [facility] could be the cause of hisissues. I called and spoke with Wesly and he said he was told the Methotrexate and MethylPREDNISolone may be the cause of his issues and I asked him to have [facility] send us the report and the supporting information so Guillermina Espana can look at it and figure out the next step for his treatment. Pt verbalized understanding. Message forwarded to Guillermina Espana. documented in this encounter Plan of Treatment Upcoming Encounters Date Type Department Care Team (Late st Contact Info) Description 04/28/2024 12:00 PM EDT [place] [address] documented as of this encounter Visit Diagnoses Not on filedocumented in this encounter Care Teams Forestry Tree Pruner Relationship Specialty Start Date End Date Arelis Michele MD [address] [place] [address] PCP - General 11/16/13 06/10/18 documented as of this encounter
--- OUTSIDE RECORDS SUMMARY | 2024-04-07 03:25 | XMS_ITS | Encounter Summary ---
Author Organization [facility] [place] [address] Care Team Providers Care Handbag Parts Cutter Name Role Phone Arelis Michele MD Primary Care Provider [phone] Reason for Visit * Reason Comments IV Medication Encounter Details Date Type Department Care Team (Latest Contact Info) Description 01/14/2014 10:00 AM EDT - 01/14/2014 11:59 PM EDT Hospital Encounter [place] [address] CLINIC, Kalen Ramos MD [facility] DR [place] [address] RA (rheumatoid arthritis) Discharge Disposition: Home Social [...] 12:00 PM EDT Appointment [place] [address] documented as of this encounter Visit Diagnoses [...] mg documented in this encounter Care Teams Handbag Parts Cutter Relationship Specialty Start Date End Date Arelis Michele MD [address] [place] [address] PCP - General 11/16/13 06/10/18 documented as of this encounter
--- OUTSIDE RECORDS SUMMARY | 2024-04-07 03:25 | XMS_ITS | Encounter Summary ---
Author Organization [facility] [place] [address] Care Team Providers Care Health Coordinator Name Role Phone Unknown Primary Care Provider Unavailabl e Reason for Referral * Consultation (Routine) - Closed Specialty Diagnoses / Procedures Referred By Contmabel t Referred To Contact Ophthalmology Diagnoses Dry eyes, bilateral Kandy Espana, ASHLEY [facility] [place] [address] [facility] [address] [place] [id number] Referral ID Status Reason Start Date Expiration Date V isits Requested Visits Authorized [id number] Closed Consult, Test & Treat 11/09/2013 05/08/2014 1 1 Encounter Details Date Type Department Care Team (Late st Contact Info) Description 11/09/2013 12:00 PM EDT [place] [address] Kandy Espana RN [facility] [place] [address] Rheumatoid arthritis(714.0) (Primary Dx); High [...] 12:00 PM EDT [place] [address] Scheduled Orders Name Type Priority Associated Diagnoses [...] MD HEMATOLOGY ORDERABLE S Performing Organization Address [facility] de Phone Number CERFRANKIE NEGRETEENNIUM * BUN (11/09/2013 12:29 PM EDT) Blood Urea Nitrogen 11 10 - 20 mg/dL CERNER MILLENNIUM Blood specimen (specimen) 11/09/2013 12:29 PM EDT 11/09/2013 12:42 PM EDT Narrative Resulting Agency Comment Spec In Lab Charlotte Gonzalez MD CHEMISTRY ORDERABLES Performing Organization Address [facility] Phone Number CERNER MILLENNIUM * Hepatic Function [...] Gonzalez MD CHEMISTRY ORDERABLES Performing Organization Address [facility] [[email or web address]] Co de Phone Number CERFRANKIE NEGRETEENNIUM * [...] In Lab Jennifer Hawley DO CHEMISTRY [facility] ISIGN Media * (ABNORMAL) CBC (with Diff) (11/09/2013 12:29 [...] Jennifer Hawley DO HEMATOLOGY ORDER DARIAN CARLOS DENNSI documented in this encounter Visit Diagnoses Diagnosis Rheumatoid arthritis(714.0)- Primary Rheumatoid arthritis High risk medication use Encounter for long-term (current) use of other medications Encounter for long-term (current) use of other medications Need for prophylactic vaccination against Streptococcus pneumoniae (pneumococcus) Need for prophylactic vaccination against streptococcus pneumoniae (pneumococcus) Dry eyes, bilateral Tear film insufficiency, unspecified documented in this encounter Care Teams Health Coordinator Relationship Specialty Start Date End Date Unknown None PCP - General 11/09/13 11/15/13 documented as of this encounter
--- OUTSIDE RECORDS SUMMARY | 2024-04-07 03:25 | XMS_ITS | Encounter Summary ---
Author Organization [facility] [place] [address] Care Team Providers Care Wharf Hand Name Role Phone Arelis Michele MD Primary Care Provider [phone] Encounter Details Date Type Department Care Team (Late Contact Info) Description 12/15/2014 Orders [place] [address] Kandy Espana, RN [facility] [place] [address] Social History Tobacco Use Types Packs/Day Years [...] 12:00 PM EDT Appointment [place] [address] documented as of this encounter Visit Diagnoses Not on filedocumented in this encounter Care Teams Wharf Hand Relationship Specialty Start Date End Date Arelis Michele MD [address] [place], [place] [address] PCP - General 11/16/13 06/10/18 documented as of this encounter
--- OUTSIDE RECORDS SUMMARY | 2024-04-07 03:25 | XMS_ITS | Encounter Summary ---
Author Organization [facility] [place] [address] Care Team Providers Care Sr. Consultant Name Role Phone Unknown Primary Care Provider Unavailabl e Reason for Visit * Reason Comments Referral Encounter Details Date Type Department Care Team (Late st Contact Info) Description 11/09/2013 10:00 AM EDT [place] [address] Robin Dodge MD [facility] [place] [address] Chronic cough; SOB (shortness of breath); Post-nasal [...] access to your electronic medical record at [facility] and the ability to communicate with your [...] the instructions. Here is your activation code: [email or web address] Expires: 12/24/2013 9:48 AM Remember, myD-H is NOT for urgent needs! Always dial 911 for medical emergencies. documented in this encounter Progress Notes * Robin Dodge MD - 11/09/2013 11:07 AM EDT PROBLEMS: Cough; exertional breathlessness. S: Mr. Ybarra is a 63-year-old male seen in consultation as requested by Kandy Espana APRN (Section of Rheumatology - [place], [place]). Mr. Ybarra is accompanied by a [...] care physician, who suggested he try Robitussin [id number]. The patient has used this medication without [...] the chest radiographs performed on 06/17/2013 at [facility]. Lungs are clear. Slight elevation of right hemidiaphragm. Heart size is normal. Pleural space appears normal. I personally viewed pulmonary function tests performed on 06/16/2013, at [facility]. Both FVC and FEV1 are decreased, while FEV1/FVC ratio is normal (77%). Single-breath diffusion capacity is 91% of predicted. I personally viewed flow-volume loop performed on 06/16/2013, which shows no evidence of upper airway obstruction. I personally viewed pulmonary function tests performed on 11/09/2013 at [facility]. FVC 3.6 liters (63% predicted); FEV1 2.40 [...] for reactive airway disease. I gave Mr. Yabrra a pamphlet describing the test and need to avoid or introducing caffeine through the morning of the test. Mr. Ybarra agrees with these plans. documented in this encounter Plan of Treatment Upcoming Encounters Date Type Department Care Team (Late st Contact Info) Description 04/28/2024 12:00 PM EDT [place] [address] documented as of this encounter Results * [...] breath documented in this encounter Care Teams Sr. Consultant Relationship Specialty Start Date End Date Unknown None PCP - General 11/09/13 11/15/13 documented as of this encounter
--- OUTSIDE RECORDS SUMMARY | 2024-04-07 03:25 | XMS_ITS | Encounter Summary ---
Author Organization [facility] [place] [address] Care Team Providers Care Produce Weigher Name Role Phone Arelis Michele MD Primary Care Provider [phone] Encounter Details Date Type Department Care Team (Late st Contact Info) Description 08/17/2014 Orders [place] [address] Kandy Espana, RN [facility] [place] [address] Encounter for long-term (current) use of other [...] 12:00 PM EDT Appointment [place] [address] documented as of this encounter Visit Diagnoses Diagnosis Encounter for long-term (current) use of other medications documented in this encounter Care Teams Produce Weigher Relationship Specialty Start Date End Date Arelis Michele MD [address] [place] [address] PCP - General 11/16/13 06/10/18 documented as of this encounter
--- OUTSIDE RECORDS SUMMARY | 2024-04-07 03:25 | XMS_ITS | Encounter Summary ---
Author Organization [facility] [place] [address] Care Team Providers Care Heavy Cleaner Name Role Phone Arelis Michele MD Primary Care Provider [phone] Reason for Referral * Consultation (Routine) - Closed Specialty Diagnoses / Procedures Referred By Azam corbett Referred To Contact Diagnoses Skin rash Kandy Espana, RN [facility] DR [place] [address] Referral ID Status Reason Start Date Expiration Date V isits Requested Visits Authorized [id number] Closed Consult, Test & Treat 03/15/2015 09/11/2015 3 3 Encounter Details Date Type Department Care Team (Late st Contact Info) Description 03/15/2015 11:00 AM EDT [place] [address] Kandy Espana, RN [facility] DR [place]UMAT[place] [address] Rheumatoid arthritis; High risk medication use; Encounter [...] this encounter Progress Notes * Kandy Espana, FISHERIES MANAGER - 03/15/2015 11:15 AM EDT Established Patient [...] room and TV. Has been out using [employer]. [place] happy [place]. Most of life, active physically, feels best when doing something. Reports skin burning at both sides of face, thinks rosacea and using unspecified topical steroid,2/7 days weekly. Previously seen in DERM at [facility]. Hoping to return for re-assessment. Reports no [...] DERM referral. ?? Future Rituxan infusions at [facility]. ?? Acknowledged pt commitment to improved well-being [...] 12:00 PM EDT Appointment [place] [address] Scheduled Referrals Name Type Priority [...] eruption documented in this encounter Care Teams Heavy Cleaner Relationship Specialty Start Date End Date Arelis Michele MD [address] [place] [address] PCP - General 11/16/13 06/10/18 documented as of this encounter
--- OUTSIDE RECORDS SUMMARY | 2024-04-07 03:25 | XMS_ITS | Encounter Summary ---
[place] [address] Care Team Providers Care Auto Body Worker Name Role Phone Arelis Michele MD Primary Care Provider [phone] Reason for Visit * Reason Onset Date Comments Other 12/21/2013 increased pain Encounter Details Date Type Department Care Team (Late st Contact Info) Description 12/21/2013 Tele[place] [address] Emily England RN Other (increased pain) Social [...] 12:00 PM EDT [place] [address] documented as of this encounter Visit Diagnoses Not on filedocumented in this encounter Care Teams Auto Body Worker Relationship Specialty Start Date End Date Arelis Michele MD [address] [place] [address] PCP - General 11/16/13 06/10/18 documented as of this encounter
--- OUTSIDE RECORDS SUMMARY | 2024-04-07 03:25 | XMS_ITS | Encounter Summary ---
Author Organization [facility] [place] [address] Care Team Providers Care Property Consultant Name Role Phone Unknown Primary Care Provider Unavailabl e Encounter Details Date Type Department Care Team (Latest Contact Info) Description 11/09/2013 10:32 AM EDT - 11/09/2013 11:59 PM EDT Hospital En[place] [address] SCHEDULE 1, PFT Robin Dodge MD [facility] [place] [address] SOB (shortness of breath) (Primary Dx) Discharge [...] 12:00 PM EDT [place] [address] documented as of this encounter Procedures Procedure [...] breath documented in this encounter Care Teams Property Consultant Relationship Specialty Start Date End Date Unknown None PCP - General 11/09/13 11/15/13 documented as of this encounter
--- OUTSIDE RECORDS SUMMARY | 2024-04-07 03:25 | XMS_ITS | Encounter Summary ---
[place] [address] Care Team Providers Care Probate Paralegal Name Role Phone Arelis Michele MD Primary Care Provider Encounter Details Date Type Department Care Team (Latest Contact Info) Description 12/17/2014 12:01 PM EDT - 12/17/2014 11:59 PM EDT Hospital [place] [address] CLINIC, [facility], Serina Montelongo MD [facility] DR [place]Y [place] [address] Rheumatoid arthritis(864.0); High risk medication use; Encounter for long-term [...] PM EDT [place] [address] documented as of this encounter [...] mg documented in this encounter Care Teams Probate Paralegal Relationship Specialty Start Date End Date Arelis Michele MD [address] [place] [address] PCP - General 11/16/13 06/10/18 documented as of this encounter
--- OUTSIDE RECORDS SUMMARY | 2024-04-07 03:25 | XMS_ITS | Encounter Summary ---
Author Organization [facility] [place] [address] Care Team Providers Care Booky Name Role Phone Gloria Espinoza MD Primary Care Provider [phone] Reason for Visit * Reason Comments Rheumatoid Arthritis Encounter Details Date Type Department Care Team (Late st Contact Info) Description 09/14/2013 12:05 PM EST Follow-[place] [address] Kandy Espana, RN [facility] [place] [address] Rheumatoid arthritis (Primary Dx); Chronic steroid use; [...] access to your electronic medical record at [facility] and the ability to communicate with your [...] the instructions. Here is your activation code: [email or web address] Expires: 10/29/2013 12:03 PM Remember, myD-H is [...] 12:00 PM EDT Appointment [place] [address] documented as of this encounter Visit Diagnoses Diagnosis Rheumatoid arthritis(714.0)- Primary Rheumatoid arthritis Chronic steroid use Encounter for long-term (current) use of steroids High risk medication use Encounter for long-term (current) use of other medications Encounter for long-term (current) use of other medications documented in this encounter Care Teams Booky Relationship Specialty Start Date End Date Gloria Espinoza MD [facility] [address] [place] [address] [place] [address] PCP - General 07/25/10 11/08/13 documented as of this encounter
--- OUTSIDE RECORDS SUMMARY | 2024-04-07 03:25 | XMS_ITS | Encounter Summary ---
Author Organization [facility] [place] [address] Care Team Providers Care Green Energy Marketing Analyst Name Role Phone Arelis Michele MD Primary Care Provider [phone] Encounter Details Date Type Department Care Team (Late st Contact Info) Description 03/02/2014 12:00 PM EDT [place] [address] Kandy Espana, RN [facility] [place] [address] Cardiomyopathy; Rheumatoid arthritis(774.0); High risk medication use; Encounter for long-term [...] 12:00 PM EDT [place] [address] documented as of this encounter Visit Diagnoses Diagnosis Cardiomyopathy Other primary cardiomyopathies Rheumatoid arthritis(714.0) Rheumatoid arthritis High risk medication use Encounter for long-term (current) use of other medications Encounter for long-term (current) use of other medications History of steroid therapy Personal history of systemic steroid therapy documented in this encounter Care Teams Green Energy Marketing Analyst Relationship Specialty Start Date End Date Arelis Michele MD [address] [place] [address] PCP - General 11/16/13 06/10/18 documented as of this encounter
--- OUTSIDE RECORDS SUMMARY | 2024-04-07 03:25 | XMS_ITS | Encounter Summary ---
Author Organization [facility] [place] [address] Care Team Providers Care River Rat Name Role Phone Arelis Michele MD Primary Care Provider [phone] Reason for Visit * Reason Comments Rheumatoid Arthritis Encounter Details Date Type Department Care Team (Late st Contact Info) Description 01/28/2014 10:30 AM EDT Follow-[place] [address] Kandy Espana, RN [facility] [place] [address] Rheumatoid arthritis(714.0) (Primary Dx); High risk medication [...] stress (family/community). [place]els better [place] Niece living in home with kids; her SO is in senior living. Mr. Ybarra able to see his great [...] 12:00 PM EDT Appointment [place] [address] documented as of this encounter Visit Diagnoses Diagnosis Rheumatoid arthritis(714.0)- Primary Rheumatoid arthritis High risk medication use Encounter for long-term (current) use of other medications Chronic steroid use Encounter for long-term (current) use of steroids Situational stress Other psychological or physical stress, not elsewhere classified documented in this encounter Care Teams River Rat Relationship Specialty Start Date End Date Arelsi Michele MD [address] [place] [address] PCP - General 11/16/13 06/10/18 documented as of this encounter
--- OUTSIDE RECORDS SUMMARY | 2024-04-07 03:25 | XMS_ITS | Encounter Summary ---
[place] [address] Care Team Providers Care Ornament Setter Name Role Phone Arelis Michele MD Primary Care Provider [phone] Reason for Referral * Consultation (Routine) - Closed Specialty Diagnoses / Procedures Referred By Contac t Referred To Contact Radiology Diagnoses Cough Procedures XR Chest Routine PA & Lateral Kandy Espana, ASHLEY [facility] [place] [address] [place] [address] Referral ID Status Reason Start Date Expiration Date V isits Requested Visits Authorized [id number] Closed Specialty Service Requested 06/08/2015 06/07/2016 1 1 Reason for Visit * Consultation (Routine) - Closed Specialty Diagnoses / Procedures Referred By Contac t Referred To Contact Radiology Diagnoses Cough Procedures XR Chest Routine PA & Lateral Kandy Espana RN [facility] [place] [address] [place] [address] Referral ID Status Reason Start Date Expiration Date V isits Requested Visits Authorized [id number] Closed Specialty Service Requested 06/08/2015 06/07/2016 1 1 Encounter Details Date Type Department Care Team (Late st Contact Info) Description 06/08/2015 11:59 AM EDT - 06/08/2015 11:59 PM EDT Hospital Encounter XRay at [address] [place] [address] Doe Obrien MD [facility] [place] [address] Cough Discharge Disposition: Home Social History Tobacco [...] 12:00 PM EDT [place] [address] documented as of this encounter Procedures Procedure [...] Cough documented in this encounter Care Teams Ornament Setter Relationship Specialty Start Date End Date Arelis Michele MD [address] [place] [address] PCP - General 11/16/13 06/10/18 documented as of this encounter
--- OUTSIDE RECORDS SUMMARY | 2024-04-07 03:25 | XMS_ITS | Encounter Summary ---
[place] [address] Care Team Providers Care Senior Clinical Research Scientist Name Role Phone Arelis Michele MD Primary Care Provider [phone] Reason for Visit * Reason Onset Date Comments Other 06/08/2015 MAP-med assistan ce for pt seeing non- provider Encounter Details Date Type Department Care Team (Late st Contact Info) Description 06/08/2015 [place] [address] Kassandra Lima (MAP-med assistance for pt seeing [...] for the [place] [facility] [employer] for [facility] and encouraged him to call them [...] EDT Appoint[place] [address] documented as of this encounter Visit Diagnoses Not on filedocumented in this encounter Care Teams Senior Clinical Research Scientist Relationship Specialty Start Date End Date Arelis Michele MD [address] [place] [address] PCP - General 11/16/13 06/10/18 documented as of this encounter
--- OUTSIDE RECORDS SUMMARY | 2024-04-07 03:25 | XMS_ITS | Encounter Summary ---
Author Organization [facility] [place] [address] Care Team Providers Care Talkback Host Name Role Phone Arelis Michele MD Primary Care Provider [phone] Reason for Visit * Reason Comments Follow-up Encounter Details Date Type Department Care Team (Late st Contact Info) Description 11/16/2013 11:45 AM EDT [place] [address] Robin Dodge MD [facility] [place] [address] Chronic cough (Primary Dx); SOB (shortness of [...] 12:00 PM EDT Appointment [place] [address] documented as of this encounter Visit Diagnoses Diagnosis Chronic cough- Primary Cough SOB (shortness of breath) Shortness of breath RA (rheumatoid arthritis) Rheumatoid arthritis Post-nasal drip Postnasal drip documented in this encounter Care Teams Talkback Host Relationship Specialty Start Date End Date Arelis Michele MD [address] [place] [address] PCP - General 11/16/13 06/10/18 documented as of this encounter
--- OUTSIDE RECORDS SUMMARY | 2024-04-07 03:25 | XMS_ITS | Encounter Summary ---
Author Organization [facility] [place] [address] Care Team Providers Care General Clerk Name Role Phone Arelis Michele MD Primary Care Provider [phone] Encounter Details Date Type Department Care Team (Late st Contact Info) Description 01/13/2015 1:45 PM EDT [place] [address] Kandy Espana, RN [facility] RHEUMATOLOGY [place] [address] Rheumatoid arthritis; High risk medication use; Encounter [...] this encounter Progress Notes * Kandy Espana, AGRICULTURAL EDUCATION PROFESSOR - 01/13/2015 7:43 AM EDT Established Patient [...] for home use fn winter. Was referredto Operations Program Manager at local site. Using inhler twice [...] PT/HEP. ?? Requests future Rituxan infusions at [facility] - will assure acceptance and covering staff. [...] 12:00 PM EDT Appointment [place] [address] documented as of this encounter Procedures Procedure [...] syndrome documented in this encounter Care Teams General Clerk Relationship Specialty Start Date End Date Arelis Michele MD [address] [place] [address] PCP - General 11/16/13 06/10/18 documented as of this encounter
--- OUTSIDE RECORDS SUMMARY | 2024-04-07 03:25 | XMS_ITS | Encounter Summary ---
Author Organization [facility] [place] [address] Care Team Providers Care Denture Finisher Name Role Phone Arelis Michele MD Primary Care Provider [phone] Encounter Details Date Type Department Care Team (Late st Contact Info) Description 08/17/2014 10:45 AM EST [place] [address] Kandy Espana, RN [facility] [place] [address] Rheumatoid arthritis(684.0); High risk medication use; Encounter for long-term [...] Patient Instructions * Patient Instructions* Kandy Espana, SALES EXPERT - 08/18/2014 10:34 AM EST ?? Rituxan [...] requested and reviewed office notes (DOS 03/25/2014) Yalobusha [...] mL infusion 1,000 mg Intravenous Once Kandy Espana, SALES EXPERT 1,000 mg at 08/17/14 1100 Allergies Allergen [...] 12:00 PM EDT [place] [address] documented as of this encounter [...] abnormality documented in this encounter Care Teams Denture Finisher Relationship Specialty Start Date End Date Arelis Michele MD [address] [place] [address] PCP - General 11/16/13 06/10/18 documented as of this encounter
--- OUTSIDE RECORDS SUMMARY | 2024-04-07 03:25 | XMS_ITS | Encounter Summary ---
[place] [address] Care Team Providers Care Hotel Front Desk Clerk Name Role Phone Gloria Espinoza MD Primary Care Provider [phone] Reason for Visit * Reason Onset Date Comments Other 06/26/2013 plan of tx Encounter Details Date Type Department Care Team (Late st Contact Info) Description 06/26/2013 Telephone [place] [address] Emily England RN Other (plan of tx) [...] AM EDT Wesly called and spoke to engineering secretary upset because no one has called [...] 12:00 PM EDT Appointment [place] [address] documented as of this encounter Visit Diagnoses Not on filedocumented in this encounter Care Teams Hotel Front Desk Clerk Relationship Specialty Start Date End Date Gloria Espinoza MD HOSPITALIST SERVICES [address] [place] [address] [place] [address] PCP - General 07/25/10 11/08/13 documented as of this encounter
--- OUTSIDE RECORDS SUMMARY | 2024-04-07 03:25 | XMS_ITS | Encounter Summary ---
Author Organization [facility] [place] [address] Care Team Providers Care Lmft Name Role Phone Arelis Michele MD Primary Care Provider [phone] Reason for Visit * Reason Comments IV Medication Encounter Details Date Type Department Care Team (Latest Contact Info) Description 09/01/2014 9:21 AM EST - 09/01/2014 11:59 PM EST Hospital [place] [id number] CLINIC, Jennifer Stratton, [facility] [place] [address] RA (rheumatoid arthritis) Discharge Disposition: Home Social [...] 12:00 PM EDT [place] [address] documented as of this encounter Visit Diagnoses [...] mg documented in this encounter Care Teams Lmft Relationship Specialty Start Date End Date Arelis Michele MD [address] [place] [address] PCP - General 11/16/13 06/10/18 documented as of this encounter
--- OUTSIDE RECORDS SUMMARY | 2024-04-07 03:25 | XMS_ITS | Encounter Summary ---
Author Organization [facility] [place] [address] Care Team Providers Care Valet Runner Name Role Phone Arelis Michele MD Primary Care Provider [phone] Encounter Details Date Type Department Care Team (Late st Contact Info) Description 12/22/2013 Telephone [place] [address] Kandy Espana, RN [facility] [place] [address] Social History Tobacco Use Types Packs/Day Years [...] Notes * Telephone Encounter - Kandy Espana, ORACLE PROGRAMMER ANALYST - 12/22/2013 8:02 AM EDT Phone contact [...] 12:00 PM EDT Appointment [place] [address] documented as of this encounter Visit Diagnoses Not on filedocumented in this encounter Care Teams Valet Runner Relationship Specialty Start Date End Date Arelis Michele MD [address] [place] [address] PCP - General 11/16/13 06/10/18 documented as of this encounter
--- OUTSIDE RECORDS SUMMARY | 2024-04-07 03:25 | XMS_ITS | Encounter Summary ---
Author Organization [facility] [place] [address] Care Team Providers Care Property Preservation Specialist Name Role Phone Arleis Michele MD Primary Care Provider [phone] Encounter Details Date Type Department Care Team (Late st Contact Info) Description 10/19/2014 10:45 AM EST [place] [address] Kandy Espana, RN [facility] RHEUMATOLOG[place] [address] Rheumatoid arthritis(603.0); High risk medication use; Encounter for long-term [...] Patient Instructions * Patient Instructions* Kandy Espana, BRATTICE BUILDER - 10/19/2014 7:05 AM EST Images from the original note were not included. [facility] Rheumatoid Arthritis: After Your Visit Your Care [...] your doctor if you can take an [id number] medicine. 10. Take an active role in [...] more? Visit our health information library at [email or web address] You can also view health information on The Vetted Net, your personal patient account. Log in or sign up today. Enter K205 in the search box to learn more about Rheumatoid Arthritis: After Your Visit. ?? [phone] [employer]. Care instructions adapted under license by [facility]. This care instruction is for use with your licensed healthcare professional. If you have questions about a medical condition or this instruction, always ask your healthcare professional. [employer] disclaims any warranty or liability for your use of this information. Content Version: 10.3.889745; Current as of: May 11, 2014 ?? [...] 45 minute office visit was spent in fiox-qw-odmc counseling and education as described above. ?? documented in this encounter Plan of Treatment Upcoming Encounters Date Type Department Care Team (Late st Contact Info) Description 04/28/2024 12:00 PM EDT [place] [address] documented as of this encounter Visit Diagnoses Diagnosis Rheumatoid arthritis(714.0) Rheumatoid arthritis High risk medication use Encounter for long-term (current) use of other medications Encounter for long-term (current) use of other medications Depression Depressive disorder, not elsewhere classified documented in this encounter Care Teams Property Preservation Specialist Relationship Specialty Start Date End Date Arelis Michele MD [address] [place] [address] PCP - General 11/16/13 06/10/18 documented as of this encounter
--- OUTSIDE RECORDS SUMMARY | 2024-04-07 03:26 | XMS_ITS | Encounter Summary ---
Author Organization [facility] [place] [address] Care Team Providers Care Metal Bonding Press Operator Name Role Phone Gloria Espinoza MD Primary Care Provider [phone] Reason for Visit * Reason Comments Medication Refill Encounter Details Date Type Department Care Team (Late st Contact Info) Description 03/31/2013 [place] [address] aKndy Espana, RN [facility] DR [place] [address] Social History Tobacco Use Types Packs/Day Years [...] 12:00 PM EDT [place] [address] documented as of this encounter Visit Diagnoses Not on filedocumented in this encounter Care Teams Metal Bonding Press Operator Relationship Specialty Start Date End Date Gloria Espinoza MD HOSPITALIST SERVICES [address] [place] [address] [address] [place], [place] [address] PCP - General 07/25/10 11/08/13 documented as of this encounter
--- OUTSIDE RECORDS SUMMARY | 2024-04-07 03:26 | XMS_ITS | Encounter Summary ---
Author Organization [facility] [place] [address] Care Team Providers Care Mint Machine Operator Name Role Phone Gloria Espinoza MD Primary Care Provider [phone] Reason for Visit * Reason Onset Date Comments Advice Only 02/05/2011 Encounter Details Date Type Department Care Team (Late st Contact Info) Description 02/05/2011 [place] [address] Kandy Espana, RN [facility] DR [place]AT[place] [address] Advice Only Social History Tobacco Use Types [...] Espana APRN - 02/05/2011 9:09 AM EDT [facility] DXA report DOS: 02/02/2011 FINDINGS: T score: -2.0 LS and T score: -0.7 left hip total CONCLUSION: Consistent w/osteopenia. Vertebral compression FX T 12. Plan: Review w/patient at follow up. documented in this encounter Plan of Treatment Upcoming Encounters Date Type Department Care Team (Late st Contact Info) Description 04/28/2024 12:00 PM EDT [place] [address] documented as of this encounter Visit Diagnoses Not on filedocumented in this encounter Care Teams Mint Machine Operator Relationship Specialty Start Date End Date Gloria Espinoza MD HOSPITALIST SERVICES [address] [place] [address] [place] [address] PCP - General 07/25/10 11/08/13 documented as of this encounter
--- OUTSIDE RECORDS SUMMARY | 2024-04-07 03:26 | XMS_ITS | Encounter Summary ---
Author Organization [facility] [place] [address] Care Team Providers Care Cotton Feeder Name Role Phone Gloria Espinoza MD Primary Care Provider [phone] Reason for Referral * Occupational Therapy (Routine) - Closed by system - unspecified Specialty Diagnoses / Procedures Referred By Contmabel t Referred To Contact Occupational Therapy Diagnoses RA (rheumatoid arthritis) Injury, hand Kandy Espana, [facility] [place] [address] Referral ID Status Reason Start Date Expiration Date Visits Requested Visits Authorized [id number] Closed by system - unspecified Evaluate and Treat 01/01/2012 06/29/2012 1 1 Reason for Visit * Reason Comments Follow-up Encounter Details Date Type Department Care Team (Late st Contact Info) Description 01/01/2012 9:45 AM EDT [place] [address] Kandy Espana, RN [facility] DR [place] [address] RA (rheumatoid arthritis) (Primary Dx); Injury, hand; [...] Occupational Therapy - referral provided ([place] -> [place]). S/p LEFT hand injury -> functional impairment. [...] fluticasone (FLONASE) 50 mcg/Actuation nasal spray 2 [place](s), Nasal, Once daily Allergies Allergen Reactions ??? [...] Occupational Therapy - referral provided ([place] -> [place]). S/p LEFT hand injury -> functional impairment. [...] 12:00 PM EDT [place] [address] Scheduled Referrals Name Type Priority [...] MD CHEMISTRY ORDERAB LES Performing Organization Address [facility] Co de Phone Number [facility] * Hepatic function panel (01/01/2012 11:03 [...] MD CHEMISTRY ORDERAB LES Performing Organization Address [facility] Co de Phone Number CERNER MILLENNIUM * BUN (01/01/2012 11:03 AM EDT) Blood Urea Nitrogen 18 10 - 20 mg/dL [facility]ERNER MILLENNIUM Blood specimen (specimen) 01/01/2012 11:03 AM EDT 01/01/2012 11:05 AM EDT Narrative Resulting Agency Comment Spec In Lab Doe Obrien MD CHEMISTRY ORDERAB LES Performing Organization Address [facility] Co de Phone Number [facility] * CRP - High sensitivity (01/01/2012 [...] MD HEMATOLOGY ORDERA BLES Performing Organization Address [facility] de Phone Number [facility] * Sedimentation rate (01/01/2012 11:03 AM EDT) Sedimentation Rate Automated 5 0 - 15 mm/hr [facility] Blood specimen (specimen) 01/01/2012 11:03 AM EDT 01/01/2012 11:05 AM EDT Narrative Resulting Agency Comment Spec In Lab Luke Metcalf MD HEMATOLOGY ORDERABL ES Performing Organization Address [facility] de Phone Number [facility] documented in this encounter Visit Diagnoses Diagnosis RA (rheumatoid arthritis)- Primary Rheumatoid arthritis Injury, hand Injury, other and unspecified, hand, except finger Encounter for long-term (current) use of other medications Rheumatoid arthritis(714.0) Rheumatoid arthritis documented in this encounter Care Teams Cotton Feeder Relationship Specialty Start Date End Date Gloria Espinoza MD HOSPITALIST SERVICES [address] [place] [address] [place] [address] PCP - General 07/25/10 11/08/13 documented as of this encounter
--- OUTSIDE RECORDS SUMMARY | 2024-04-07 03:26 | XMS_ITS | Encounter Summary ---
Author Organization [facility] [place] [address] Care Team Providers Care Endocrinology Teacher Name Role Phone Gloria Espinoza MD Primary Care Provider [phone] Reason for Visit * Reason Comments Rheumatoid Arthritis Encounter Details Date Type Department Care Team (Late st Contact Info) Description 07/16/2011 1:45 PM EST [place] [address] Kandy Espana, RN [facility] DR [place] [address] Encounter for long-term (current) use of other [...] with resolution of heartburn symptoms. 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 neonatal intensive care unit nurse for left lower backpain s/p fall from [...] 12:00 PM EDT [place] [address] documented as of this encounter [...] PM EST Doe Obrien MD HEMATOLOGY ORDERA [facility] CARLOS DENNIS * High Sensitivity CRP (07/16/2011 [...] EST Doe Obrien MD CHEMISTRY ORDERAB LES [facility] * Creatinine, serum (07/16/2011 2:44 PM EST) Creatinine 0.99 0.80 - 1.50 mg/dL CERNER MILLENNIUM Est Glomerular Filtration Rate >60 >=60 [facility] Comment: The National Kidney Disease Education Program [...] sacrum documented in this encounter Care Teams Endocrinology Teacher Relationship Specialty Start Date End Date Gloria Espinoza MD HOSPITALIST SERVICES [address] [place] [address] [place] [address] PCP - General 07/25/10 11/08/13 documented as of this encounter
--- OUTSIDE RECORDS SUMMARY | 2024-04-07 03:26 | XMS_ITS | Encounter Summary ---
Author Organization [facility] [place] [address] Care Team Providers Care String Winding Machine Operator Name Role Phone Gloria Espinoza MD Primary Care Provider [phone] Reason for Visit * Reason Onset Date Comments Labs Only 02/20/2011 Encounter Details Date Type Department Care Team (Late st Contact Info) Description 02/20/2011 Tele[place] [address] Kandy Espana, RN [facility] [place] [address] Labs Only Social History Tobacco Use Types [...] 12:00 PM EDT [place] [address] Scheduled Orders Name Type Priority Associated Diagnoses Orde r Schedule CBC Lab Routine Encounter for long-term (current) use of other medications Every 12 Weeks for 4 Occurrences starting 09/12/2007 until 04/17/2012, 3 completed documented as of this encounter Results * Creatinine, serum (04/08/2012 11:21 AM EDT) Creatinine 0.84 0.80 - 1.50 mg/dL [facility] Comment: Please note that the pediatric reference intervals supplied above were not validated at [facility]. Results from pediatric patients should be interpreted in conjunction to the patient's age, height and muscle mass. Est Glomerular Filtration Rate >60 >=60 [facility] Comment: The National Kidney Disease Education Program [...] MD CHEMISTRY ORDERAB LES Performing Organization Address [facility] Co de Phone Number [...] MD CHEMISTRY ORDERAB LES Performing Organization Address [facility] Co de Phone Number [...] Creatinine 0.96 0.80 - 1.50 mg/dL [facility] Est Glomerular Filtration Rate >60 >=60 [facility] Comment: The National Kidney Disease Education [...] MD CHEMISTRY ORDERAB LES Performing Organization Address [facility] Co de Phone Number [...] MD CHEMISTRY ORDERAB LES Performing Organization Address [facility] Co de Phone Number [facility]ILL[facility] * BUN (01/01/2012 11:03 AM EDT) Blood Urea Nitrogen 18 10 - 20 mg/dL [facility]ILL[facility] Blood specimen (specimen) 01/01/2012 11:03 AM EDT 01/01/2012 11:05 AM EDT Narrative Resulting Agency Comment Spec In Lab Doe Obrien MD CHEMISTRY ORDERAB LES Performing Organization Address [facility]/ZIP Co de Phone Number CERNER [...] MD CHEMISTRY ORDERAB LES Performing Organization Address [facility] Co de Phone Number [facility] * [...] MD HEMATOLOGY ORDERA BLES Performing Organization Address City/[facility]/ZIP Co de Phone Number [facility] * [...] EDT Doe Obrien MD CHEMISTRY ORDERAB LES [facility] Organization Address City/State/ZIP Co de Phone Number [facility] MILLENNIUM * Hepatic function panel (04/17/2011 1:01 [...] MD CHEMISTRY ORDERAB LES Performing Organization Address [facility]/ZIP Co de Phone Number [facility] * BUN (04/17/2011 1:01 PM EDT) Blood Urea Nitrogen 14 10 - 20 mg/dL [facility]ILL[facility] Blood specimen (specimen) 04/17/2011 1:01 PM EDT 04/17/2011 1:15 PM EDT Doe Obrien MD CHEMISTRY ORDERAB LES Performing Organization Address [facility] Co de Phone Number [...] MD HEMATOLOGY ORDERA BLES Performing Organization Address [facility]/ZIP Co de Phone Number [facility] M[facility] documented in this encounter Visit Diagnoses Diagnosis Encounter for long-term (current) use of other medications- Primary documented in this encounter Care Teams String Winding Machine Operator Relationship Specialty Start Date End Date Gloria Espinoza MD HOSPITALIST SERVICES [address] [place] [address] [place] [address] PCP - General 07/25/10 11/08/13 documented as of this encounter
--- OUTSIDE RECORDS SUMMARY | 2024-04-07 03:26 | XMS_ITS | Encounter Summary ---
Author Organization [facility] Address [facility] [place] [address] Care Team Providers Care Machine Pie Maker Name Role Phone Gloria Espinoza MD Primary Care Provider [phone] Encounter Details Date Type Department Care Team (Late st Contact Info) Description 04/17/2011 3:14 PM EDT - 04/17/2011 11:59 PM EDT Hospital Encounter XRay at [address] [place] [address] Social History Tobacco Use Types Packs/Day Years [...] fluticasone (FLONASE) 50 mcg/Actuation nasal spray 2 [place](s), Nasal, Once daily 11/02/2010 01/12/2013 documented as of this encounter Plan of Treatment Upcoming Encounters Date Type Department Care Team (Late st Contact Info) Description 04/28/2024 12:00 PM EDT Appointment [place] [address] documented as of this encounter Visit Diagnoses Not on filedocumented in this encounter Care Teams Machine Pie Maker Relationship Specialty Start Date End Date Gloria Espinoza MD HOSPITALIST SERVICES [address] [place] [address] [place] [address] PCP - General 07/25/10 11/08/13 documented as of this encounter
--- OUTSIDE RECORDS SUMMARY | 2024-04-07 03:26 | XMS_ITS | Encounter Summary ---
Author Organization [facility] [place] [address] Care Team Providers Care Oil Dispenser Name Role Phone Gloria Espinoza MD Primary Care Provider [phone] Reason for Referral * Consultation (Routine) - Closed by system - unspecified Specialty Diagnoses / Procedures Referred By Azam corbett Referred To Contact Podiatry Diagnoses Encounter for long-term (current) use of other medications Kandy Espana, RN [facility] [place] [address] Referral ID Status Reason Start Date Expiration Date Visits Requested Visits Authorized [id number] Closed by system - unspecified Consult, Test & Treat 2 01/17/2013 1 1 Encounter Details Date Type Department Care Team (Late st Contact Info) Description 07/21/2012 Orders [place] [address] Kandy Espana, RN [facility] [place] [address] Encounter for long-term (current) use [...] Appointment [place] [address] Scheduled Referrals Name Type Priority Associated Diagnoses [...] Espinosa MD CHEMISTRY ORDERABLES Performing Organization Address City/[facility]/ZIP Co de Phone Number [facility] * Hepatic Function Panel (07/21/2012 1:14 PM [...] In Lab Eusebio Espinosa MD CHEMISTRY ORDERABLES [facility] * Creatinine, serum (07/21/2012 1:14 PM EST) [facility] Signature Creatinine 0.93 0.80 - 1.50 mg/dL [facility] Comment: Please note that the pediatric reference intervals supplied above were not validated at [facility]. Results from pediatric patients should be interpreted in conjunction to the patient's age, height and muscle mass. Est Glomerular Filtration Rate >60 >=60 [facility] Comment: The National Kidney Disease Education [...] Primary documented in this encounter Care Teams Oil Dispenser Relationship Specialty Start Date End Date Gloria Espinoza MD HOSPITALIST SERVICES [address] [place] [address] [place] [address] PCP - General 07/25/10 11/08/13 documented as of this encounter
--- OUTSIDE RECORDS SUMMARY | 2024-04-07 03:26 | XMS_ITS | Encounter Summary ---
Author Organization [facility] [place] [address] Care Team Providers Care Corporate Quality Manager Name Role Phone Gloria Espinoza MD Primary Care Provider [phone] Reason for Visit * Reason Comments Follow-up Encounter Details Date Type Department Care Team (Late st Contact Info) Description 07/21/2012 11:45 AM EST [place] [address] Kandy Espana, RN [facility] [place] [address] Dry eyes (Primary Dx); Dry mouth; Rheumatoid [...] 1:49 PM EST ?? Referral to Podiatry [facility]. ?? Continue with current plan [...] (SURECLIK) -> Advised patient he may contact topographic computator to alert to device failure (Replacment). See [...] fluticasone (FLONASE) 50 mcg/Actuation nasal spray 2 Jacob(s), Nasal, Once daily Allergies Allergen Reactions ??? [...] blepharitis, osteopenia. PLAN: ?? Referral to Podiatry [facility]. ?? Continue with current plan [...] 12:00 PM EDT [place] [address] documented as of this encounter Procedures Procedure [...] MD HEMATOLOGY ORDERABLE S Performing Organization Address [facility] Co de Phone Number CERNER MILLENNIUM * BUN (07/21/2012 1:14 PM EST) Blood Urea Nitrogen 18 10 - 20 mg/dL [facility]ERN[facility] MILLENNIUM Blood specimen (specimen) 07/21/2012 1:14 PM EST 07/21/2012 1:33 PM EST Narrative Resulting Agency Comment Spec In Lab Eusebio Espinosa MD CHEMISTRY ORDERABLES Performing Organization Address [facility] Co de Phone Number CERNER [...] Espinosa MD CHEMISTRY ORDERABLES Performing Organization Address [facility] Co de Phone Number CERNER MILLENNIUM * Creatinine, serum (07/21/2012 1:14 PM EST) Creatinine 0.93 0.80 - 1.50 mg/dL [facility] Comment: Please note that the pediatric reference intervals supplied above were not validated at [facility]. Results from pediatric patients should be interpreted [...] In Lab Eusebio Espinosa MD CHEMISTRY ORDERABLES [facility] * (ABNORMAL) CBC (with Diff) (07/21/2012 1:14 [...] medications documented in this encounter Care Teams Corporate Quality Manager Relationship Specialty Start Date End Date Gloria Espinoza MD HOSPITALIST SERVICES [address] [place] [address] [place] [address] PCP - General 07/25/10 11/08/13 documented as of this encounter
--- OUTSIDE RECORDS SUMMARY | 2024-04-07 03:26 | XMS_ITS | Encounter Summary ---
Author Organization [facility] [place] [address] Care Team Providers Care Dish Person Name Role Phone Gloria Espinoza MD Primary Care Provider [phone] Reason for Visit * Reason Onset Date Comments Medication Refill 02/03/2013 Encounter Details Date Type Department Care Team (Late st Contact Info) Description 02/03/2013 Refill [place] [address] Kandy Espana, RN [facility] [place] [address] Social History Tobacco Use Types Packs/Day Years [...] 12:00 PM EDT Appointment [place] [address] documented as of this encounter Visit Diagnoses Not on filedocumented in this encounter Care Teams Dish Person Relationship Specialty Start Date End Date Gloria Espinoza MD HOSPITALIST SERVICES [address] [place] [address] [address] [place] [id number] PCP - General 07/25/10 11/08/13 documented as of this encounter
--- OUTSIDE RECORDS SUMMARY | 2024-04-07 03:26 | XMS_ITS | Encounter Summary ---
Author Organization [facility] [place] [address] Care Team Providers Care Kiln Car Unloader Name Role Phone Gloria Espinoza MD Primary Care Provider [phone] Reason for Visit * Reason Comments Rheumatoid Arthritis Encounter Details Date Type Department Care Team (Late st Contact Info) Description 10/08/2011 9:45 AM EST [place] [address] Kandy Espana, RN [facility] DR [place] [address] Elevated blood pressure (Primary Dx); Fatigue; Weight [...] Notes stress associated with mother being in correction - dementia - 4 mini strokes a couple weeks ago. Stable when compared ot prior period. Feels less motivated this winter - less active and eating more. No routine exercise. Continues with Enbrel therapy 25 mg sc twice weekly, MTX 15 mg po once weekly and folic acid. Ongoing use of tylenol vs NSAID with resolution of heartburn symptoms. Reports interruption in child care director for left lower back pain s/p fall [...] fluticasone (FLONASE) 50 mcg/Actuation nasal spray 2 [place](s), Nasal, Once daily Allergies Allergen Reactions ??? [...] 12:00 PM EDT [place] [address] documented as of this encounter [...] Gan MD CHEMISTRY ORDERABLES Performing Organization Address [facility] de Phone Number CARLOS WALKERIUM [...] Gan MD CHEMISTRY ORDERABLES Performing Organization Address City/[facility] Co de Phone Number [facility] * BUN (10/08/2011 10:35 AM EST) Blood Urea Nitrogen 13 10 - 20 mg/dL CERNER MILLENNIUM Blood specimen (specimen) 10/08/2011 10:35 AM EST 10/08/2011 10:42 AM EST Tom Gan MD CHEMISTRY ORDERABLES Performing Organization Address [facility] Co de Phone Number [facility] * HIGH SENSITIVITY CRP (10/08/2011 10:35 AM EST) [facility] C-Reactive Protein High Sensitivity 1.0 mg/L [facility] Comment: Interpretations: 1) For cardiac risk [...] Gan MD CHEMISTRY ORDERABLES Performing Organization Address [facility] Co de Phone Number [facility] * TSH (10/08/2011 10:35 AM EST) Thyroid [...] classified documented in this encounter Care Teams Kiln Car Unloader Relationship Specialty Start Date End Date Gloria Espinoza MD HOSPITALIST SERVICES [address] [place] [address] [place] [address] PCP - General 07/25/10 11/08/13 documented as of this encounter
--- OUTSIDE RECORDS SUMMARY | 2024-04-07 03:26 | XMS_ITS | Encounter Summary ---
Author Organization [facility] [place] [address] Care Team Providers Care Business Process Lead Name Role Phone Gloria Espinoza MD Primary Care Provider [phone] Reason for Visit * Reason Onset Date Comments Arthritis 01/31/2011 Encounter Details Date Type Department Care Team (Late st Contact Info) Description 01/31/2011 Telephone [place] [address] Kandy Espana, RN [facility] [place] [address] Arthritis Social History Tobacco Use Types Packs/Day [...] Notes * Telephone Encounter - Kandy Espana, ESTATE PLANNING DIRECTOR - 01/31/2011 2:12 PM EDT Return call [...] below this line=== ----- Message ----- From: Klaen DeA nda MD Sent: 01/30/2011 11:24 AM To: Kandy Espana APRN Subject: FW: call ----- Message ----- From: Stefany Briceno Sent: 01/30/2011 10:09 AM To: Kalen De Anda MD Subject: call Can't walk with foot pain and swelling [phone] (home) documented in this encounter Plan of Treatment Upcoming Encounters Date Type Department Care Team (Late st Contact Info) Description 04/28/2024 12:00 PM EDT [place]ointment [place] [address] documented as of this encounter Visit Diagnoses Not on filedocumented in this encounter Care Teams Business Process Lead Relationship Specialty Start Date End Date Gloria Espinoza MD HOSPITALIST SERVICES [address] [place] [address] [place] [address] PCP - General 07/25/10 11/08/13 documented as of this encounter
--- OUTSIDE RECORDS SUMMARY | 2024-04-07 03:26 | XMS_ITS | Encounter Summary ---
Author Organization [facility] [place] [address] Care Team Providers Care Antique Repairer Name Role Phone Kamila Rodney MD Primary Care Provider [phone] Reason for Visit * Reason Comments Rheumatoid Arthritis Encounter Details Date Type Department Care Team (Late st Contact Info) Description 01/12/2013 9:45 AM EDT [place] [address] Kandy Espana, RN [facility] [place] [address] Elevated blood pressure (Primary Dx); Rheumatoid arthritis; [...] concerns, questions or increased signs/symptoms. Welcome to [employer], your secure online access to your electronic medical record at [facility]. Using [employer] you will be able to send messages to your providers, view your test results, renew prescriptions, schedule appointments, and much more. Follow these instructions to enter your personal [employer] account for the first time: 1. Start your internet browser and type [email or web address] into the address bar. 2. In the New User box on the right-hand side of the Welcome page click the link that states, ???I have an activation code.?? 3. On the Identification page, follow these steps: a) Enter your [employer] activation code: [email or web address] b) Expires: 02/26/2013 10:09 AM IMPORTANT: This Activation Code will on the above mentioned date. If you do not sign up for [employer] by this date, you will need to [...] or your Access Code, please call for [place], for [place] or for [place]. If you need technical support, please e-mail [email or web address]. Remember, [email or web address] is NOT for urgent needs! [...] in BOLD italics. ?? Referral to Podiatry [facility]. Recommendations - achilles stretching. Follow up scheduled. [...] house. Difficulty coping with confinement of winter [facility]. Eating more, gained > 20 lbs. [...] fluticasone (FLONASE) 50 mcg/Actuation nasal spray 2 [place](s), Nasal, Once daily Allergies Allergen Reactions ??? [...] 12:00 PM EDT [place] [address] Scheduled Orders Name Type Priority Associated Diagnoses [...] Function Panel (10/31/2015 10:07 AM EST) Pathologist [facility] Protein, Total 6.1 6.1 - 8.0 gm/dL [facility] Albumin 3.7 3.2 - 5.2 gm/dL [facility] Aspartate Aminotransferase 17 0 - 39 unit/L [facility] Alanine Aminotransferase 17 0 - 55 unit/L [facility] Alkaline Phosphatase 67 40 - 120 unit/L [facility] Bilirubin, Total 0.6 0.2 - 1.3 mg/dL [facility] Bilirubin, Direct 0.1 0.0 - 0.3 mg/dL [facility] Blood specimen (specimen) 10/31/2015 10:07 AM EST 10/31/2015 10:28 AM EST Narrative Resulting Agency Comment Spec In Lab Charlotte Gonzalez MD CHEMISTRY ORDERABLES Performing Organization Address City/[facility]/ZIP Co de Phone Number [facility] [place] [address] * BUN (11/09/2013 12:29 PM EDT) Blood Urea Nitrogen 11 10 - 20 mg/dL CERNER MILLENNIUM Blood specimen (specimen) 11/09/2013 12:29 PM EDT 11/09/2013 12:42 PM EDT Narrative Resulting Agency Comment Spec In Lab Charlotte Gonzalez MD CHEMISTRY ORDERABLES Performing Organization Address [facility] Co de Phone Number CERNER MILLENNIUM * [...] MD HEMATOLOGY ORDERA BLES Performing Organization Address [facility] Co de Phone Number [facility] MILLENNIUM * Hepatic Function Panel (01/12/2013 [...] MD CHEMISTRY ORDERAB LES Performing Organization Address [facility]/ZIP Co de Phone Number [facility] * BUN (01/12/2013 11:33 AM EDT) Blood Urea Nitrogen 16 10 - 20 mg/dL CERNER MILLENNIUM Blood specimen (specimen) 01/12/2013 11:33 AM EDT 01/12/2013 11:43 AM EDT Narrative Resulting Agency Comment Spec In Lab Analilia Fuchs MD CHEMISTRY ORDERAB LES Performing Organization Address [facility]/ZIP Co de Phone Number [facility] MILL[facility] * Creatinine (01/12/2013 11:33 AM EDT) Creatinine 0.96 0.80 - 1.50 mg/dL [facility]ERNER MILLENNIUM Comment: Please note that the pediatric reference intervals supplied above were not validated at [facility]. Results from pediatric patients should be interpreted [...] Charlotte Gonzalez MD HEMATOLOGY ORDERABLE S [facility] documented in this encounter Visit Diagnoses Diagnosis Elevated blood pressure- Primary Elevated blood pressure reading without diagnosis of hypertension Rheumatoid arthritis(714.0) Rheumatoid arthritis Encounter for long-term (current) use of other medications High risk medication use Encounter for long-term (current) use of other medications Situational stress Other psychological or physical stress, not elsewhere classified documented in this encounter Care Teams Antique Repairer Relationship Specialty Start Date End Date Kamila Rodney MD HOSPITALIST SERVICES [address] [place] [address] [place] [address] PCP - General 07/25/10 11/08/13 documented as of this encounter
--- OUTSIDE RECORDS SUMMARY | 2024-04-07 03:26 | XMS_ITS | Encounter Summary ---
Author Organization [facility] [place] [address] Care Team Providers Care Brokerage Manager Name Role Phone Gloria Rodney MD Primary Care Provider [phone] Reason for Referral * Consultation (Routine) - Complete - Unable to Contact Patient Specialty Diagnoses / Procedures Referred By Azam corbett Referred To Contact Otolaryngology Diagnoses Chronic sinusitis Kandy Espana, RN [facility] [place] [address] [facility] Otolaryngology [address] [place] [address] Referral ID Status Reason Start Date Expiration Date Visits Requested Visits Authorized [id number] Complete - Unable to Contact Patient Specialty Service Requested 3 12/13/2013 1 1 Reason for Visit * Reason Comments Rheumatoid Arthritis Encounter Details Date Type Department Care Team (Late st Contact Info) Description 06/16/2013 12:45 PM EDT [place] [address] Kandy Espana, RN [facility] [place] [address] Encounter for long-term (current) use of other [...] Patient Instructions * Patient Instructions* Kandy Espana, ELECTRIC SYSTEM OPERATOR - 06/16/2013 3:02 PM EDT ?? Referral [...] Prevnar 13 vaccine - provided today - formerly named [facility] handout (patient) ?? Will review PPSV booster [...] Prevnar 13 vaccine - provided today - formerly named [facility] handout (patient) provided. Planned today. ?? Will [...] Prevnar 13 vaccine - provided today - formerly named [facility] handout (patient) ?? Will review PPSV booster [...] 12:00 PM EDT [place] [address] Scheduled Referrals Name Type Priority [...] No Comment: Lacho Durham MD Pulmonary/Critical Care [facility] Procedure Note Lacho Durham MD - [...] No Comment: Lacho Durham MD Pulmonary/Critical Care [facility] Eusebio Espinosa MD PFT ORDERABLES * XR chest routine PA & lateral (06/16/2013 3:23 PM EDT) Anatomical Region Laterality Modality Chest N/A Radiographic Gabriella ging 06/16/2013 3:23 PM EDT Narrative 06/17/2013 5:21 PM EDT Examination CHEST ROUTINE 2 VIEWS Clinical History dry cough on long term care social worker methotrexate for RA Comparison Chest radiograph 06/04/2007, [...] 2 VIEWS Clinical History dry cough on half-way methotrexate for RA Comparison Chest radiograph 06/04/2007, [...] Gonzalez MD CHEMISTRY ORDERABLES Performing Organization Address City/State/[facility] Co de Phone Number CARLOS DENNIS * [...] ?U -- REFERENCE VALUE -- <1.0 (Negative) ??RIPENING ROOM HAND Ab, IgG, S ?<0.2 ?U -- REFERENCE VALUE -- <1.0 (Negative) ??Scl 70 Ab, IgG, S ? <0.2 ?U -- REFERENCE VALUE -- <1.0 (Negative) ??Ashley 1 Ab, IgG, S ? <0.2 ?U -- REFERENCE VALUE -- <1.0 (Negative) Test Performed by: [place] [address] Literacy Teacher: Lisseth Hernandez, Ph.D. [facility]FR[facility] [employer] Blood specimen (specimen) 06/16/2013 2:31 PM EDT 06/16/2013 3:17 PM EDT Narrative Resulting Agency Comment Spec In Lab Eusebio Espinosa MD LAB SEND OUT ORDERAB LES Performing Organization Address [facility] de Phone Number [facility] [employer] * Sedimentation rate (06/16/2013 2:31 PM EDT) Sedimentation Rate Automated 5 0 - 15 mm/hr [facility] Blood specimen (specimen) 06/16/2013 2:31 PM EDT 06/16/2013 2:40 PM EDT Narrative Resulting Agency Comment Spec In Lab Eusebio Espinosa MD HEMATOLOGY ORDERABLE S Performing Organization Address [facility] Phone Number [facility] [employer] * High Sensitivity CRP (06/16/2013 2:31 PM EDT) C-Reactive Protein High Sensitivity 4.8 mg/L [facility] Comment: Interpretations: 1) For accurate cardiac [...] In Lab Eusebio Espinosa MD CHEMISTRY ORDERABLES [facility]oscopyMOUNT[facility] * Comprehensive metabolic panel (non-fasting) (06/16/2013 2:31 PM EDT) [facility] Glucose 78 60 - 199 mg/dL CERNER MILLENNIUM Comment:Diabetes: >=200 mg/d L plus symptoms Blood Urea Nitrogen 12 10 - 20 mg/dL CERNER MILLENNIUM Creatinine 0.85 0.80 - 1.50 mg/dL [facility]ERNER MILLENNIUM Comment: Please note that the pediatric reference intervals supplied above were not validated at [facility]. Results from pediatric patients should be interpreted [...] Platelet Volume 10.0 9.0 - 12.0 fL ASHWINFARNKIE NEGRETEENNIUM Blood specimen (specimen) 06/16/2013 2:31 PM [...] Cough documented in this encounter Care Teams Brokerage Manager Relationship Specialty Start Date End Date Gloria Rodney MD HOSPITALIST SERVICES [address] [place] [address] [place] [address] PCP - General 07/25/10 11/08/13 documented as of this encounter
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
--- OUTSIDE RECORDS SUMMARY | 2024-04-07 03:26 | XMS_ITS | Encounter Summary ---
Author Organization [facility] [place] [address] Care Team Providers Care Food Safety Manager Name Role Phone Gloria Espinoza MD Primary Care Provider [phone] Reason for Visit * Reason Onset Date Comments Prior Authorization 01/11/2012 ENBREL Encounter Details Date Type Department Care Team (Late st Contact Info) Description 01/11/2012 [place] [address] Jarvis Temple, RN [facility] [place] [address] Prior Authorization (ENBREL) Social History Tobacco Use [...] request: RHEUMATOID ARTHRITIS Health plan: [employer] ID# [id number] Authorizing customer success representative name: APPROVAL FAXED TO OFFICE Faxed to health plan on: 01/08/12 Health plan decision: Approved Quantity approved: Authorization number: Start date: 01/08/12 End date: 01/07/13 Patient notified? yes Pharmacy notified? yes documented in this encounter Plan of Treatment Upcoming Encounters Date Type Department Care Team (Late st Contact Info) Description 04/28/2024 12:00 PM EDT [place]ointment [place] [address] documented as of this encounter Visit Diagnoses Not on filedocumented in this encounter Care Teams Food Safety Manager Relationship Specialty Start Date End Date Gloria Espinoza MD HOSPITALIST SERVICES [address] [place] [address] [place] [address] PCP - General 07/25/10 11/08/13 documented as of this encounter
--- OUTSIDE RECORDS SUMMARY | 2024-04-07 03:26 | XMS_ITS | Encounter Summary ---
Author Organization [facility] [place] [address] Care Team Providers Care Credit Analysis Manager Name Role Phone Gloria Espinoza MD Primary Care Provider [phone] Reason for Visit * Reason Onset Date Comments Medication Refill 10/03/2011 Encounter Details Date Type Department Care Team (Late st Contact Info) Description 10/03/2011 Refill [place] [address] Kandy Espana, RN [facility] [place] [address] Social History Tobacco Use Types Packs/Day Years [...] PM EDT Appointment [place] [address] documented as of this encounter Visit Diagnoses Not on filedocumented in this encounter Care Teams Credit Analysis Manager Relationship Specialty Start Date End Date Gloria Espinoza MD HOSPITALIST SERVICES [address] [place] [address] [address] [place], [place] [address] PCP - General 07/25/10 11/08/13 documented as of this encounter
--- OUTSIDE RECORDS SUMMARY | 2024-04-07 03:26 | XMS_ITS | Encounter Summary ---
Author Organization [facility] [place] [address] Care Team Providers Care Locum Tenens Name Role Phone Gloria Espinoza MD Primary Care Provider [phone] Reason for Visit * Reason Comments Rheumatoid Arthritis Encounter Details Date Type Department Care Team (Late st Contact Info) Description 02/19/2011 1:45 PM EDT Follow-[place] [address] Kandy Espana, RN [facility] DR [place] [address] Rheumatoid arthritis (Primary Dx); Encounter for long-term [...] 12:00 PM EDT Appointment [place] [address] documented as of this encounter Procedures Procedure Name Priority Date/Time Associated Diagnosis Comments SEDIMENTATION RATE Routine 02/19/2011 1: 52 PM EDT Rheumatoid arthritis CRP, CARDIAC RISK (HS CRP) Routine 02/19/2011 1:52 PM EDT Rheumatoid arthritis documented in this encounter Results * Sedimentation rate (02/19/2011 1:52 PM EDT) Sedimentation Rate Automated 6 0 - 15 mm/hr [facility] Blood specimen (specimen) 02/19/2011 1:52 PM EDT 02/19/2011 1:59 PM EDT Luke Metcalf MD HEMATOLOGY ORDERABL ES Performing Organization Address [facility] de Phone Number CRALOS DENNIS * High Sensitivity CRP (02/19/2011 1:52 PM EDT) C-Reactive Protein High Sensitivity 1.1 mg/L [facility] Comment: Interpretations: 1) For cardiac risk [...] MD CHEMISTRY ORDERABLE S Performing Organization Address [facility] de Phone Number CARLOS DENNIS documented in this encounter Visit Diagnoses Diagnosis Rheumatoid arthritis(714.0)- Primary Rheumatoid arthritis Encounter for long-term (current) use of other medications documented in this encounter Care Teams Locum Tenens Relationship Specialty Start Date End Date Gloria Espinoza MD HOSPITALIST SERVICES [address] [place] [address] [place] [address] PCP - General 07/25/10 11/08/13 documented as of this encounter
--- OUTSIDE RECORDS SUMMARY | 2024-04-07 03:26 | XMS_ITS | Encounter Summary ---
Author Organization [facility] [place] [address] Care Team Providers Care Sampler Ovens Name Role Phone Gloria Espinoza MD Primary Care Provider [phone] Reason for Visit * Reason Comments Eye Problem Patient here for 2 m [facility] lid check Encounter Details Date Type Department Care Team (Late st Contact Info) Description 06/17/2012 10:00 AM EDT [place] [address] Uriah Odonnell MD [facility] [place] [address] Tom Liang MD [facility] DR [place] [address] Burning sensation in eye Discharge Disposition: Home [...] 12:00 PM EDT [place]ointment [place] [address] documented as of this encounter Visit Diagnoses Diagnosis Burning sensation in eye Other ill-defined disorder of eye documented in this encounter Care Teams Sampler Ovens Relationship Specialty Start Date End Date Gloria Espinoza MD HOSPITALIST SERVICES [address] [place] [address] [place] [address] PCP - General 07/25/10 11/08/13 documented as of this encounter
--- OUTSIDE RECORDS SUMMARY | 2024-04-07 03:26 | XMS_ITS | Encounter Summary ---
Author Organization [facility] [place] [address] Care Team Providers Care Mixing Operator Name Role Phone Gloria Espinoza MD Primary Care Provider [phone] Encounter Details Date Type Department Care Team (Late st Contact Info) Description 01/30/2011 Orders [place] [address] Kandy Espana, RN [facility] DR [place] [address] RA (rheumatoid arthritis) (Primary Dx) Social History [...] EDT App[place] [address] documented as of this encounter Visit Diagnoses Diagnosis RA (rheumatoid arthritis)- Primary Rheumatoid arthritis documented in this encounter Care Teams Mixing Operator Relationship Specialty Start Date End Date Gloria Espinoza MD HOSPITALIST SERVICES [address] [place] [address] [address] [place] [id number] PCP - General 07/25/10 11/08/13 documented as of this encounter
--- OUTSIDE RECORDS SUMMARY | 2024-04-07 03:26 | XMS_ITS | Encounter Summary ---
[place] [address] Care Team Providers Care Seo Marketing Specialist Name Role Phone Gloria Espinoza MD Primary Care Provider [phone] Encounter Details Date Type Department Care Team (Latest Contact Info) Description 06/16/2013 1:53 PM EDT - 06/16/2013 11:59 PM EDT Hospital [place] [address] SCHEDULE 1, PFT Gloria Espinoza MD [address] [place] [address] [place] [address] Cough (Primary Dx) Discharge Disposition: Home Social [...] No Comment: Lacho Durham MD Pulmonary/Critical Care [facility] documented in this encounter Plan of Treatment Upcoming Encounters Date Type Department Care Team (Late st Contact Info) Description 04/28/2024 12:00 PM EDT [place] [address] documented as of this encounter [...] No Comment: Lacho Durham MD Pulmonary/Critical Care [facility] Procedure Note Lacho Durham MD - 06/16/2013 [...] No Comment: Lacho Durham MD Pulmonary/Critical Care [facility] Eusebio Espinosa MD PFT ORDERABLES documented in this encounter Visit Diagnoses Diagnosis Cough- Primary documented in this encounter Care Teams Seo Marketing Specialist Relationship Specialty Start Date End Date Gloria Espinoza MD HOSPITALIST SERVICES [address] [place] [address] [place] [address] PCP - General 07/25/10 11/08/13 documented as of this encounter
--- OUTSIDE RECORDS SUMMARY | 2024-04-07 03:26 | XMS_ITS | Encounter Summary ---
Author Organization [facility] [place] [address] Care Team Providers Care Director Network Development Name Role Phone Gloria Espinoza MD Primary Care Provider [phone] Encounter Details Date Type Department Care Team (Late st Contact Info) Description 01/23/2011 Orders [place] [phone] Kandy Espana, RN [facility] [place] [address] Osteopenia (Primary Dx) Social History Tobacco Use [...] 12:00 PM EDT Appointment [place] [address] documented as of this encounter Visit Diagnoses Diagnosis Osteopenia- Primary Disorder of bone and cartilage, unspecified documented in this encounter Care Teams Director Network Development Relationship Specialty Start Date End Date Gloria Espinoza MD HOSPITALIST SERVICES [address] [place] [address] [address] [place] [id number] PCP - General 07/25/10 11/08/13 documented as of this encounter
--- OUTSIDE RECORDS SUMMARY | 2024-04-07 03:26 | XMS_ITS | Encounter Summary ---
[place] [address] Care Team Providers Care Fiberglass Roving Winder Name Role Phone Gloria Espinoza MD Primary Care Provider [phone] Reason for Visit * Reason Onset Date Comments Other 02/04/2013 enbrel Encounter Details Date Type Department Care Team (Late Contact Info) Description 02/04/2013 [place] [address] Emily England RN Other (enbrel) [...] 12:00 PM EDT [place] [address] documented as of this encounter Visit Diagnoses Not on filedocumented in this encounter Care Teams Fiberglass Roving Winder Relationship Specialty Start Date End Date Gloria Espinoza MD HOSPITALIST SERVICES [address] [place] [address] [place] [address] PCP - General 07/25/10 11/08/13 documented as of this encounter
--- OUTSIDE RECORDS SUMMARY | 2024-04-07 03:26 | XMS_ITS | Encounter Summary ---
Author Organization [facility] [place] [address] Care Team Providers Care Erecting Engineer Name Role Phone Gloria Espinoza MD Primary Care Provider [phone] Reason for Referral * Physical Therapy (Routine) - Closed by system - unspecified Specialty Diagnoses / Procedures Referred By Contac t Referred To Contact Physical Therapy Diagnoses Knee pain Jarvis Espana, RN [facility] [place] [address] Referral ID Status Reason Start Date Expiration Date Visits Requested Visits Authorized [id number] Closed by system - unspecified Evaluate and Treat 04/17/2011 10/14/2011 1 1 Reason for Visit * Reason Comments Rheumatoid Arthritis Encounter Details Date Type Department Care Team (Late st Contact Info) Description 04/17/2011 2:20 PM EDT [place] [address] Jarvis Espana, RN [facility] [place] [address] Encounter for long-term (current) use of other [...] upset. 4. Bilateral knee xray - PT ([place] -> strengthening) 5. Office contact for joint [...] heartburn symptoms. Continues to be followed by Cardiology Nurse Practitioner for dry eyes - using wash for [...] upset. 4. Bilateral knee xray - PT ([place] -> strengthening) 5. Office contact for joint [...] 12:00 PM EDT [place] [address] Scheduled Referrals Name Type Priority [...] High Sensitivity CRP (07/16/2011 2:44 PM EST) [facility] C-Reactive Protein High Sensitivity 1.8 mg/L [facility] Comment: Interpretations: 1) For cardiac risk [...] PM EDT Doe Obrien MD HEMATOLOGY ORDERA [facility] CERFRANKIE WALKERIUM * [...] MD CHEMISTRY ORDERAB LES Performing Organization Address [facility] Co de Phone Number CERNER MILLENNIUM * [...] MD CHEMISTRY ORDERAB LES Performing Organization Address [facility] Co de Phone Number CERNER MILLENNIUM * BUN (04/17/2011 1:01 PM EDT) Blood Urea Nitrogen 14 10 - 20 mg/dL CERNER MILLENNMARVA Blood specimen (specimen) 04/17/2011 1:01 PM EDT 04/17/2011 1:15 PM EDT Doe Obrien MD CHEMISTRY ORDERAB LES Performing Organization Address City/[facility]/ZIP Co de Phone Number CARLOS DENNIS * [...] MD CHEMISTRY ORDERAB LES Performing Organization Address City/[facility] Co de Phone Number CARLOS DENNIS * [...] MD HEMATOLOGY ORDERA BLES Performing Organization Address [facility] Co de Phone Number CARLOS DENNIS documented in this encounter Visit Diagnoses Diagnosis Encounter for long-term (current) use of other medications- Primary Knee pain Pain in joint, lower leg Rheumatoid arthritis(714.0) Rheumatoid arthritis Osteopenia Disorder of bone and cartilage, unspecified documented in this encounter Care Teams Erecting Engineer Relationship Specialty Start Date End Date Gloria Espinoza MD HOSPITALIST SERVICES [address] [place] [address] [place] [address] PCP - General 07/25/10 11/08/13 documented as of this encounter
--- OUTSIDE RECORDS SUMMARY | 2024-04-07 03:26 | XMS_ITS | Encounter Summary ---
Author Organization [facility] [place] [address] Care Team Providers Care Biodiesel Technology Manager Name Role Phone Gloria Espinoza MD Primary Care Provider [phone] Encounter Details Date Type Department Care Team (Late st Contact Info) Description 01/17/2011 [place] [address] Kandy Espana, RN [facility] [place] [address] Encounter for long-term (current) use of other [...] 12:00 PM EDT [place] [address] documented as of this encounter Results * [...] DO CHEMISTRY ORDERA BLES Performing Organization Address [facility] de Phone Number [employer] * BUN (01/17/2011 11:21 AM EDT) Blood Urea Nitrogen 13 10 - 20 mg/dL CERFRANKIE [employer]ENNIUM Blood specimen (specimen) 01/17/2011 11:21 AM EDT 01/17/2011 11:36 AM EDT Jennifer Hawley DO CHEMISTRY ORDERA BLES Performing Organization Address [facility] de Phone Number CERNER MILLENNIUM * Sedimentation rate, automated (01/17/2011 11:21 AM EDT) Sedimentation Rate Automated 6 0 - 15 mm/hr CERNER MILLENNIUM Blood specimen (specimen) 01/17/2011 11:21 AM EDT 01/17/2011 11:36 AM EDT Jennifer Hawley DO HEMATOLOGY ORDER DARIAN Performing Organization Address [facility] de Phone Number CERNER MILLENNIUM * [...] DO CHEMISTRY ORDERA BLES Performing Organization Address [facility] de Phone Number CERNER MILLENNIUM * [...] [facility] Co de Phone Number [facility] documented in this encounter Visit Diagnoses Diagnosis Encounter for long-term (current) use of other medications- Primary documented in this encounter Care Teams Biodiesel Technology Manager Relationship Specialty Start Date End Date Gloria Espinoza MD HOSPITALIST SERVICES [address] [place] [address] [place] [address] PCP - General 07/25/10 11/08/13 documented as of this encounter
--- OUTSIDE RECORDS SUMMARY | 2024-04-07 03:26 | XMS_ITS | Encounter Summary ---
Author Organization [facility] [place] [address] Care Team Providers Care Lithographic Printing Machinist Name Role Phone Gloria Espinoza MD Primary Care Provider [phone] Encounter Details Date Type Department Care Team (Late Contact Info) Description 01/17/2011 [place] [address] Kandy Espana, RN [facility] [place] [address] Social History Tobacco Use Types Packs/Day Years [...] 12:00 PM EDT [place] [address] documented as of this encounter Visit Diagnoses Not on filedocumented in this encounter Care Teams Lithographic Printing Machinist Relationship Specialty Start Date End Date Gloria Espinoza MD HOSPITALIST SERVICES [address] [place] [address] [address] [place], [place] [address] PCP - General 07/25/10 11/08/13 documented as of this encounter
--- OUTSIDE RECORDS SUMMARY | 2024-04-07 03:26 | XMS_ITS | Encounter Summary ---
Author Organization [facility] [place] [address] Care Team Providers Care Nut Orchardist Name Role Phone Gloria Espinoza MD Primary Care Provider [phone] Encounter Details Date Type Department Care Team (Late st Contact Info) Description 04/16/2011 [place] [address] Billie Lovelace, RN Social History Tobacco Use [...] 12:00 PM EDT [place] [address] documented as of this encounter Visit Diagnoses Not on filedocumented in this encounter Care Teams Nut Orchardist Relationship Specialty Start Date End Date Gloria Espinoza MD HOSPITALIST SERVICES [address] [place] [address] [place] [address] PCP - General 07/25/10 11/08/13 documented as of this encounter
--- OUTSIDE RECORDS SUMMARY | 2024-04-07 03:26 | XMS_ITS | Encounter Summary ---
Author Organization [facility] [place] [address] Care Team Providers Care Associate Professor Of Engineering Name Role Phone Gloria Espinoza MD Primary Care Provider [phone] Encounter Details Date Type Department Care Team (Late st Contact Info) Description 02/19/2011 [place] [address] Kandy Espana, RN [facility] [place] [address] Rheumatoid arthritis Social History Tobacco Use Types [...] 12:00 PM EDT [place] [address] documented as of this encounter Results * High Sensitivity CRP (02/19/2011 1:52 PM EDT) [facility] C-Reactive Protein High Sensitivity 1.1 mg/L [facility] Comment: Interpretations: 1) For cardiac risk [...] MD CHEMISTRY ORDERABLE S Performing Organization Address City/State/[facility] Phone Number [facility] documented in this encounter Visit Diagnoses Diagnosis Rheumatoid arthritis(714.0) Rheumatoid arthritis documented in this encounter Care Teams Associate Professor Of Engineering Relationship Specialty Start Date End Date Gloria Espinoza MD HOSPITALIST SERVICES [address] [place] [address] [place] [address] PCP - General 07/25/10 11/08/13 documented as of this encounter
--- OUTSIDE RECORDS SUMMARY | 2024-04-07 03:26 | XMS_ITS | Encounter Summary ---
Author Organization [facility] [place] [address] Care Team Providers Care Kitchen Chef Name Role Phone Gloria Espinoza MD Primary Care Provider [phone] Reason for Referral * Consultation (Routine) - Closed by system - unspecified Specialty Diagnoses / Procedures Referred By Azam corbett Referred To Contact Podiatry Diagnoses Foot pain Kandy Espana, RN [facility] [place] [address] Referral ID Status Reason Start Date Expiration Date Visits Requested Visits Authorized [id number] Closed by system - unspecified Consult, Test & Treat 10/22/2012 04/20/2013 1 1 Reason for Visit * Reason Comments Rheumatoid Arthritis Encounter Details Date Type Department Care Team (Late st Contact Info) Description 10/22/2012 11:45 AM EST [place] [address] Kandy Espana RN [facility] [place] [address] Encounter for long-term (current) use of other [...] this encounter Progress Notes * Kandy Espana, TIRE FABRICATOR - 10/22/2012 11:51 AM EST Established Patient [...] in BOLD italics. ?? Referral to Podiatry [facility]. Not completed - will recontact. ?? Continue [...] fluticasone (FLONASE) 50 mcg/Actuation nasal spray 2 [place](s), Nasal, Once daily Allergies Allergen Reactions ??? [...] blepharitis, osteopenia. PLAN: ?? Referral to Podiatry [facility]. ?? Continue with current plan of [...] 12:00 PM EDT [place] [address] Scheduled Referrals Name Type Priority Associated Diagnoses [...] MD HEMATOLOGY ORDERA BLES Performing Organization Address [facility] Co de Phone Number [facility] DENISEIUM * Hepatic Function Panel (10/22/2012 12:46 [...] MD CHEMISTRY ORDERAB LES Performing Organization Address [facility]/ZIP Co de Phone Number CARLOS WALKERIUM * BUN (10/22/2012 12:46 PM EST) Blood Urea Nitrogen 11 10 - 20 mg/dL CERNER MILLENNIUM Blood specimen (specimen) 10/22/2012 12:46 PM EST 10/22/2012 12:58 PM EST Narrative Resulting Agency Comment Spec In Lab Analilia Fuchs MD CHEMISTRY ORDERAB LES CARLOS DENNIS * (ABNORMAL) Creatinine (10/22/2012 12:46 PM EST) [facility] Signature Creatinine 0.79(L) 0.80 - 1.50 mg/dL [facility] Comment: Please note that the pediatric reference intervals supplied above were not validated at [facility]. Results from pediatric patients should be interpreted in conjunction to the patient's age, height and muscle mass. Est Glomerular Filtration Rate >60 >=60 [facility] Comment: The National Kidney Disease Education [...] medications documented in this encounter Care Teams Kitchen Chef Relationship Specialty Start Date End Date Gloria Espinoza MD HOSPITALIST SERVICES [address] [place] [address] [place] [address] PCP - General 07/25/10 11/08/13 documented as of this encounter
--- OUTSIDE RECORDS SUMMARY | 2024-04-07 03:26 | XMS_ITS | Encounter Summary ---
Author Organization [facility] [place] [address] Care Team Providers Care Quality Control Specialist Name Role Phone Kamila Rodney MD Primary Care Provider [phone] Reason for Visit * Reason Comments Other dry mouth x's 2 yrs/ sore tongue X's 6 months. discomfort when eating Encounter Details Date Type Department Care Team (Late st Contact Info) Description 04/16/2012 12:15 PM EDT Office [place] [address] José Antonio Dean MD [facility] [place] [address] Clinical xerostomia (Primary Dx) Discharge Disposition: Home [...] Wesly Ybarra is a 61 y.o. male. [facility] OTOLARYNGOLOGY HEAD AND NECK SURGERY NEW [...] fluticasone (FLONASE) 50 mcg/Actuation nasal spray 2 [place](s), Nasal, Once daily Allergies: Allergies as of [...] [place] [address] documented as of this encounter Visit Diagnoses Diagnosis Clinical xerostomia- Primary Disturbance of salivary secretion documented in this encounter Care Teams Quality Control Specialist Relationship Specialty Start Date End Date Kamila Rodney MD HOSPITALIST SERVICES [address] [place] [address] [place] [address] PCP - General 07/25/10 11/08/13 documented as of this encounter
--- OUTSIDE RECORDS SUMMARY | 2024-04-07 03:26 | XMS_ITS | Encounter Summary ---
Author Organization [facility] [place] [address] Care Team Providers Care Executive Housekeeper Name Role Phone Gloria Espinoza MD Primary Care Provider [phone] Reason for Referral * Consultation (Routine) - Closed Specialty Diagnoses / Procedures Referred By Contac t Referred To Contact Otolaryngology Diagnoses Dry mouth Kandy Espana RN [facility] DR [place] [address] [facility] [address] [place] [phone] Referral ID Status Reason Start Date Expiration Date V isits Requested Visits Authorized [id number] Closed Evaluate and Treat 04/08/2012 10/05/2012 1 1 * Consultation (Routine) - Closed Specialty Diagnoses / Procedures Referred By Contac t Referred To Contact Ophthalmology Diagnoses Dry eyes Kandy Espana RN [facility] DR [place] [address] [facility] [address] [place] [phone] Referral ID Status Reason Start Date Expiration Date V isits Requested Visits Authorized [id number] Closed Consult, Test & Treat 04/08/2012 10/05/2012 1 1 Reason for Visit * Reason Comments Follow-up Encounter Details Date Type Department Care Team (Late st Contact Info) Description 04/08/2012 9:45 AM EDT [place] [address] Kandy Espana, RN [facility] DR [place] [address] Dry mouth; Dry eyes; Encounter for long-term [...] Patient Instructions * Patient Instructions* Kandy Espana, NURSE ORTHOPEDIC - 04/08/2012 11:25 AM EDT ?? Referral to ENT/OPHTH. ?? Nursing instruction - enbrel administration (SURECLIK) -> Advised patient he may contact dispatcher bus and trolley to alert to device failure (Replacment). ?? [...] Occupational Therapy - referral provided (OSH -> [place]). S/p LEFT hand injury -> functional impairment. [...] itching, dryness, crusting, burningand redness. Prescribed lid card cleaner - ocusoft for lid cleansing and [...] Previously seen ~ 1year at ENT in [place] - concern for recurrent sinusitis. No fever, [...] fluticasone (FLONASE) 50 mcg/Actuation nasal spray 2 [place](s), Nasal, Once daily Allergies Allergen Reactions ??? [...] (SURECLIK) -> Advised patient he may contact dispatcher bus and trolley to alert to device failure (Replacment). ?? [...] EDT [place] [address] Scheduled Referrals Name Type Priority [...] ORDERA BLES Performing Organization Address [facility]/ZIP Co de Phone Number CERNER MILLENNIUM * (ABNORMAL) CBC (04/08/2012 11:21 AM EDT) Pathologist [facility] White Blood Cell 7.5 4.0 - 10.0 [...] MD HEMATOLOGY ORDERA BLES Performing Organization Address City/[facility]/ZIP Co de Phone Number CERFRANKIE WALKERIUM * Creatinine, serum (04/08/2012 11:21 AM EDT) Pathologist [facility] Creatinine 0.84 0.80 - 1.50 mg/dL CERNER MILLENNIUM Comment: Please note that the pediatric reference intervals supplied above were not validated at [facility]. Results from pediatric patients should be interpreted in conjunction to the patient's age, height and muscle mass. Est Glomerular Filtration Rate >60 >=60 CARLOS [facility] Comment: The National Kidney Disease [...] MD CHEMISTRY ORDERAB LES Performing Organization Address [facility] Phone Number CARLOS WALKERIUM * [...] MD CHEMISTRY ORDERAB LES Performing Organization Address [facility] Phone Number CARLOS WALKERIUM * BUN (04/08/2012 11:21 AM EDT) Blood Urea Nitrogen 10 10 - 20 mg/dL CERNER MILLENNIUM Blood specimen (specimen) 04/08/2012 11:21 AM EDT 04/08/2012 11:24 AM EDT Narrative Resulting Agency Comment Spec In Lab Doe Obrien MD CHEMISTRY ORDERAB LES Performing Organization Address [facility] Phone Number CARLOS DENNIS documented in this encounter Visit Diagnoses Diagnosis Dry mouth Disturbance of salivary secretion Dry eyes Tear film insufficiency, unspecified Encounter for long-term (current) use of other medications Rheumatoid arthritis(714.0) Rheumatoid arthritis documented in this encounter Care Teams Executive Housekeeper Relationship Specialty Start Date End Date Gloria Espinoza MD HOSPITALIST SERVICES [address] [place] [address] [place] [address] PCP - General 07/25/10 11/08/13 documented as of this encounter
--- OUTSIDE RECORDS SUMMARY | 2024-04-07 03:26 | XMS_ITS | Encounter Summary ---
Author Organization [facility] [place] [address] Care Team Providers Care House Coordinator Name Role Phone Gloria Espinoza MD Primary Care Provider Encounter Details Date Type Department Care Team (Late st Contact Info) Description 07/21/2012 Orders [place] [address] Kandy Espana, RN [facility] [address] Social History Tobacco Use Types Packs/Day Years [...] 12:00 PM EDT [place] [address] documented as of this encounter Visit Diagnoses Not on filedocumented in this encounter Care Teams House Coordinator Relationship Specialty Start Date End Date Gloria Espinoza MD HOSPITALIST SERVICES [address] [place] [address] [place] [address] PCP - General 07/25/10 11/08/13 documented as of this encounter
--- OUTSIDE RECORDS SUMMARY | 2024-04-07 03:26 | XMS_ITS | Encounter Summary ---
Author Organization [facility] [place] [address] Care Team Providers Care Cake Maker Name Role Phone Kamila Rodney MD Primary Care Provider [phone] Reason for Visit * Reason Comments Rheumatoid Arthritis Encounter Details Date Type Department Care Team (Late st Contact Info) Description 03/09/2013 1:45 PM EDT [place] [address] Kandy Espana, RN [facility] [place] [address] Elevated blood pressure (Primary Dx); Rheumatoid arthritis; [...] Patient Instructions * Patient Instructions* Erin Singleton, PROJECT MANAGER PROCESS DEVELOPMENT - 03/09/2013 2:28 PM EDT ?? Continue [...] Prevnar 13 vaccine - [place] today [place] [facility] [place] 2[place] handout (patient) provided. ?? Will review PPSV booster indications. ?? Labs reviewed - plan at f]ollow up ?? Ongoing HTN management -> KAMILA RODNEY MD. ?? Encouraged ongoing counseling - self-care strategies. ?? Followup planned in 4 months, sooner for concerns, questions or increased signs/symptoms. Welcome to [employer], your secure online access to your electronic medical record at [facility]. Using [employer] you will be able to send messages to your providers, view your test results, renew prescriptions, schedule appointments, and much more. Follow these instructions to enter your personal [employer] account for the first time: 1. Start your internet browser and type [email or web address] into the address bar. 2. In the New User box on the right-hand side of the Welcome page click the link that states, ???I have an activation code.?? 3. On the Identification page, follow these steps: a) Enter your [employer] activation code: [email or web address] b) Expires: 04/23/2013 2:28 PM IMPORTANT: This [...] or your Access Code, please call for [place], for [place] or for [place]. If you need technical support, please e-mail [...] children in house. SO now working in [place] on MON-SAT - more tolerable. Difficulty coping [...] Prevnar 13 vaccine - provided today [place] [facility] [place]note 2] handout (patient) provided. ?? Will review PPSV [...] 12:00 PM EDT [place] [address] documented as of this encounter Visit Diagnoses Diagnosis Elevated blood pressure- Primary Elevated blood pressure reading without diagnosis of hypertension Rheumatoid arthritis(714.0) Rheumatoid arthritis High risk medication use Encounter for long-term (current) use of other medications Encounter for long-term (current) use of other medications Immunization due Need for prophylactic vaccination and inoculation against unspecified single disease documented in this encounter Care Teams Cake Maker Relationship Specialty Start Date End Date Kamila Rodney MD HOSPITALIST SERVICES [address] [place] [address] [place] [address] PCP - General 07/25/10 11/08/13 documented as of this encounter
--- OUTSIDE RECORDS SUMMARY | 2024-04-07 03:26 | XMS_ITS | Encounter Summary ---
Author Organization [facility] [place] [address] Care Team Providers Care Leather Parts Matcher Name Role Phone Gloria Espinoza MD Primary Care Provider Reason for Visit * Reason Onset Date Comments Prior Authorization 01/16/2013 ENBREL-APPRO HENRIETTA Encounter Details Date Type Department Care Team (Late st Contact Info) Description 01/16/2013 [place] [address] Jarvis Espana, RN [facility] DR RHEUMATOLOGY [place] [address] Prior Authorization (ENBREL-APPROVED) Social History Tobacco Use [...] Rationale for request: RA Health plan: [employer] ID#[id number] Authorizing training representative name: APPROVAL FAXED TO OFFICE Faxed to health plan on: 01/16/13 Health plan decision: Approved Quantity approved: 12/28 Authorization number: [id number] Start date: 01/13/13 End date: 01/13/14 Patient notified? yes Pharmacy notified? yes documented in this encounter Plan of Treatment Upcoming Encounters Date Type Department Care Team (Late st Contact Info) Description 04/28/2024 12:00 PM EDT [place]ment [place] [address] documented as of this encounter Visit Diagnoses Not on filedocumented in this encounter Care Teams Leather Parts Matcher Relationship Specialty Start Date End Date Gloria Espinoza MD HOSPITALIST SERVICES [address] [place] [address] [place] [address] PCP - General 07/25/10 11/08/13 documented as of this encounter
--- OUTSIDE RECORDS SUMMARY | 2024-04-07 03:27 | XMS_ITS | Referral Summary ---
Author Organization [facility] Address [address] [place] [address] Care Team Providers Care Senior Oracle Developer Name Role Phone Arelis Michele MD Primary Care Provider [phone] Encounters Date Type Department Care Team Description 01/16/[address] [facility] Pathology & Laboratory [address] [address] Outr Resulting Lab, Provider 01/16/[address] [facility] Pathology & Laboratory [address] [address] Outr Resulting Lab, Provider from Last 3 [...] mmol/L 01/16/2024 19:[address] [facility] Comment: Testing performed on heparinized plasma. Results may be biased 5% lower than that of whole blood. Blood VENOUS BLOOD / Unknown 01/16/2024 10:53 EDT 01/16/2024 19:42 EDT Provider Outr Resulting Lab CHEMISTRY & BLOOD GAS ORDERABLES [facility] [address] [place], [place] [address] * (ABNORMAL) PTH INTACT (01/16/2024 10:53 EDT) Intact PTH 11(L) 19 - 88 pg/mL 01/16/2024 21:[address] [facility] Blood VENOUS BLOOD / Unknown 01/16/2024 10:53 EDT 01/16/2024 19:42 EDT Provider Outr Resulting Lab CHEMISTRY & BLOOD GAS ORDERABLES Performing Organization Address City/[facility]/ZIP Co de Phone Number [facility] [address] [place], [place] [address] * HEPATITIS C AB W REFLEX TO HCV RNA BY PCR (06/02/2021 11:50 EDT) Hep C Antibody Negative Negative 06/05/2021 10:[address] [facility] Blood VENOUS BLOOD / Unknown 06/02/2021 11:50 EDT 06/02/2021 21:00 EDT Provider Outr Resulting Lab CHEMISTRY & BLOOD GAS ORDERABLES [facility] [address] [place] [address] from Last 3 Months or Most Recently Relevant to Health Maintenance Advance Directives For more information, please contact: [phone] * Full Code (Latest Code Status on File) Date Activated Date Inactivated Comments 02/08/2014 8:03 02/08/2014 16:48 Care Teams Senior Oracle Developer Relationship Specialty Start Date End Date Arelis Michele MD [address] [place] [address] PCP - General 02/08/14
--- OUTSIDE RECORDS SUMMARY | 2024-04-07 03:27 | XMS_ITS | Encounter Summary ---
Author Organization [facility] Address [address] [place] [address] Care Team Providers Care Supervisor Gas Meter Repair Name Role Phone Arelis Michele MD Primary Care Provider [phone] Encounter Details Date Type Department Care Team (Late st Contact Info) Description 07/04/2023 Lab Requisition [facility] Pathology & Laboratory Medicine - [address] [address] Outr Resulting Lab, Provider Social History Tobacco [...] IgE 29 <158 IU/mL 07/05/2023 7:46 EDT [facility] Blood VENOUS BLOOD / Unknown 07/04/2023 10:13 EDT 07/04/2023 17:13 EDT Provider Outr Resulting Lab CHEMISTRY & BLOOD GAS ORDERABLES Performing Organization Address City/[facility]/ZIP Co de Phone Number [facility] [address] [place] [address] * (ABNORMAL) IMMUNOGLOBULINS (07/04/2023 10:13 EDT) IgG 532(L) 610 - 1,616 mg/dL 07/05/2023 9:27 EDT [facility] IgA 147 85 - 499 mg/dL 07/05/2023 9:27 EDT [facility] IgM 38 35 - 242 mg/dL 07/05/2023 9:27 EDT [facility] Blood VENOUS BLOOD / Unknown 07/04/2023 10:13 EDT 07/04/2023 17:13 EDT Provider Outr Resulting Lab CHEMISTRY & BLOOD GAS ORDERABLES Performing Organization Address [facility] Co de Phone Number [facility] [address] [place] [address] documented in this encounter Visit Diagnoses Not on filedocumented in this encounter Care Teams Supervisor Gas Meter Repair Relationship Specialty Start Date End Date Arelis Michele MD [address] [place] [address] PCP - General 02/08/14 documented as of this encounter
--- OUTSIDE RECORDS SUMMARY | 2024-04-07 03:27 | XMS_ITS | Encounter Summary ---
Author Organization [facility] [place] [address] Care Team Providers Care Cable Assembler Name Role Phone Gloria Espinoza MD Primary Care Provider Reason for Visit * Reason Comments Rheumatoid Arthritis Encounter Details Date Type Department Care Team (Late st Contact Info) Description 01/17/2011 10:45 AM EDT [place] [address] Kandy Espana, RN [facility] [place] [address] Encounter for long-term (current) use of other [...] 12:00 PM EDT [place] [address] documented as of this encounter Procedures Procedure [...] AM EDT 01/17/2011 11:36 AM EDT Jennifer Hwaley DO HEMATOLOGY ORDER DARIAN CERNER MILLENNIUM * [...] EDT Jennifer Hawley DO CHEMISTRY ROMEO SOLORZANO [facility] * Creatinine, serum (01/17/2011 11:21 AM EDT) Creatinine 0.91 0.80 - 1.50 mg/dL CARLOS MILLDESTINIIUM Est Glomerular Filtration Rate >60 >=60 CERFRANKIE [employer]NI[employer] Comment: The National Kidney Disease Education Program [...] DO CHEMISTRY ROMEO SOLORZANO Performing Organization Address [facility] Co de Phone Number [facility] * BUN (01/17/2011 11:21 AM EDT) Blood Urea Nitrogen 13 10 - 20 mg/dL [facility] Blood specimen (specimen) 01/17/2011 11:21 AM EDT 01/17/2011 11:36 AM EDT Jennifer Hawley DO CHEMISTRY ROMEO SOLORZANO Performing Organization Address [facility] Co de Phone Number [facility] * Sedimentation rate, automated (01/17/2011 11:21 AM EDT) Sedimentation Rate Automated 6 0 - 15 mm/hr [facility] Blood specimen (specimen) 01/17/2011 11:21 AM EDT 01/17/2011 11:36 AM EDT Jennifer Hawley DO HEMATOLOGY ORDER DARIAN Performing Organization Address [facility] Co de Phone Number [employer] MILLENNIUM * Hepatic Function Panel (01/17/2011 11:21 [...] DO CHEMISTRY ORDERA BLES Performing Organization Address [facility] de Phone Number CERFRANKIE NEGRETECollaajIUM documented in this encounter Visit Diagnoses Diagnosis Encounter for long-term (current) use of other medications RA (rheumatoid arthritis) Rheumatoid arthritis Osteopenia Disorder of bone and cartilage, unspecified GERD (gastroesophageal reflux disease) Esophageal reflux Hyperlipidemia Other and unspecified hyperlipidemia documented in this encounter Care Teams Cable Assembler Relationship Specialty Start Date End Date Gloria Espinoza MD HOSPITALIST SERVICES [address] [place] [address] [place] [address] PCP - General 07/25/10 11/08/13 documented as of this encounter
--- OUTSIDE RECORDS SUMMARY | 2024-04-07 03:27 | XMS_ITS | Encounter Summary ---
[place] [address] Care Team Providers Care Top Lift Cutter Name Role Phone Arelis Michele MD Primary Care Provider [phone] Encounter Details Date Type Department Care Team (Late st Contact Info) Description 04/05/2005 [place] [address] Uriah Brown MD [place], [place] Social History Tobacco Use Types Packs/Day [...] 12:00 PM EDT [place]ment [place] [address] documented as of this encounter Procedures Procedure Name Priority Date/Time Associated Diagnosis Comments SURGICAL PATHOLOGY REPORT Routine 04/05/2005 9:37 PM EDT documented in this encounter Results * Surgical Pathology Report (04/05/2005 9:37 PM EDT) Surgical Pathology Report [id number] ? Location: The signing pathologist has (i) [...] Ellipse of dixon skin with a raised, ?0.2-fl-af-diam eter, central, light brown lesion. Sections/Process ing: [...] report in rendering the final pathologic diagnosis. [facility] 04/05/2005 9:37 PM EDT Uriah Brown MD PATHOLOGY/CYTOLOGY O RDERABLES [facility] documented in this encounter Visit Diagnoses Not on filedocumented in this encounter Care Teams Top Lift Cutter Relationship Specialty Start Date End Date Arelis Michele MD [address] [place] [address] PCP - General Family Medicine 08/01/18 02/11/24 documented as of this encounter
--- OUTSIDE RECORDS SUMMARY | 2024-04-07 03:27 | XMS_ITS | Encounter Summary ---
Author Organization [facility] [place] [address] Care Team Providers Care Grades 9 12 Tutor Name Role Phone Gloria Espinoza MD Primary Care Provider [phone] Encounter Details Date Type Department Care Team (Late st Contact Info) Description 08/01/2010 [place] [address] Kandy Espana, RN [facility] [place] [address] Social History Tobacco Use Types Packs/Day Years [...] 12:00 PM EDT [place] [address] documented as of this encounter Procedures Procedure [...] RN HEMATOLOGY ORDERABLE S Performing Organization Address [facility] de Phone Number [facility] * HEPATIC FUNCTION PANEL (08/01/2010 12:13 PM EST) Pathologist [facility] Protein, Total 7.0 6.4 - 8.3 gm/dL [...] Espana RN CHEMISTRY ORDERABLES Performing Organization Address [facility] Co de Phone Number [facility] * HIGH SENSITIVITY CRP (08/01/2010 12:13 PM [...] EST 08/01/2010 12:22 PM EST Kandy Espana [employer] ORDERABLE S CARLOS DENNIS documented in this encounter Visit Diagnoses Not on filedocumented in this encounter Care Teams Grades 9 12 Tutor Relationship Specialty Start Date End Date Gloria Espinoza MD HOSPITALIST SERVICES [address] [place] [address] [place] [address] PCP - General 07/25/10 11/08/13 documented as of this encounter
--- OUTSIDE RECORDS SUMMARY | 2024-04-07 03:27 | XMS_ITS | Clinical Summary ---
Author Organization [facility] Address [address] [place] [address] Care Team Providers Care Industrial Hygenist Name Role Phone Arelis Michele MD Primary Care Provider [phone] Allergies Active Allergy Reactions Criticality Noted Date [...] Department Care Team Description 01/16/2024 Lab Requisition [facility] Pathology & Laboratory Medicine - Main [address] [address] Outr Resulting Lab, Provider 01/16/2024 Lab Requisition [facility] Pathology & Laboratory Medicine - [address] [address] Outr Resulting Lab, Provider from Last 3 [...] * CALCIUM, IONIZED (01/16/2024 10:53 EDT) Pathologist [facility] Calcium, Ionized 1.32 1.14 - 1.35 mmol/L 01/16/2024 19:46 EDT [facility] Comment: Testing performed on heparinized plasma. Results may be biased 5% lower than that of whole blood. Blood VENOUS BLOOD / Unknown 01/16/2024 10:53 EDT 01/16/2024 19:42 EDT Provider Outr Resulting Lab CHEMISTRY & BLOOD GAS ORDERABLES Performing Organization Address [facility] Co de Phone Number [facility] [address] [place] [phone] * (ABNORMAL) PTH INTACT (01/16/2024 10:53 EDT) Pathologist [facility] Intact PTH 11(L) 19 - 88 pg/mL 01/16/2024 21:01 EDT [facility] Blood VENOUS BLOOD / Unknown 01/16/2024 10:53 EDT 01/16/2024 19:42 EDT Provider Outr Resulting Lab CHEMISTRY & BLOOD GAS ORDERABLES Performing Organization Address [facility] Co de Phone Number [facility] [address] [place] [address] * HEPATITIS C AB W REFLEX TO HCV RNA BY PCR (06/02/2021 11:50 EDT) Pathologist [facility] Hep C Antibody Negative Negative 06/05/2021 10:39 EDT [facility] Blood VENOUS BLOOD / Unknown 06/02/2021 11:50 EDT 06/02/2021 21:00 EDT Provider Outr Resulting Lab CHEMISTRY & BLOOD GAS ORDERABLES Performing Organization Address City/[facility]/ZIP Co de Phone Number [facility] [address] [place] [address] from Last 3 Months or Most Recently Relevant to Health Maintenance Advance Directives For more information, please contact: [phone] * Full Code (Latest Code Status on File) Date Activated Date Inactivated Comments 02/08/2014 8:03 02/08/2014 16:48 Care Teams Industrial Hygenist Relationship Specialty Start Date End Date Arelis Michele MD [address] [place] [address] [facility] - General 02/08/14
--- OUTSIDE RECORDS SUMMARY | 2024-04-07 03:27 | XMS_ITS | Encounter Summary ---
Author Organization [facility] [place] [address] Care Team Providers Care Bacteriology Teacher Name Role Phone Gloria Espinoza MD Primary Care Provider [phone] Reason for Visit * Reason Onset Date Comments Prior Authorization 01/03/2011 ENBREL not n eeded . Prior Authorization 01/30/2011 Enbrel appro nikolay 01/30/11 to 01/31/12 Encounter Details Date Type Department Care Team (Late st Contact Info) Description 01/03/2011 [place] [address] Kandy Espana, RN [facility] [place] [address] Prior Authorization (ENBREL not needed . ); [...] Medication name/dose/directions: etanercept (ENBREL) 25 mg injection [[id number]] 1 KIT SQ Q TWICE A WEEK Rationale for request: 714.0 RHEUMATOID ARTHRITIS Health plan: [employer] benefits service ID# [id number] The patient's pharmacy has been trying to call him since the beginning of December he has not returnedtheir calls so they closed the account Authorizing quality assurance representative name: [employer] Rep. Faxed to health plan on: Called 2nd time on Health plan decision: approved Quantity approved: 30 Authorization number: [id number] Start date: 01/30/11 End date: 01/31/2012 Patient notified? yes Pharmacy notified? yes * Telephone Encounter - Arabella Hsieh - 01/03/2011 2:23 PM EDT Medication Prior Authorization Medication name/dose/directions: etanercept (ENBREL) 25 mg injection [[id number]] 1 KIT SQ Q TWICE A WEEK Rationale for request: 714.0 RHEUMATOID ARTHRITIS Health plan: [employer] benefits service ID# [id number] The patient's pharmacy has been trying to call him since the beginning of December he has not returnedtheir calls so they closed the account Authorizing quality assurance representative name: n/a Faxed to health plan on: n/a Health plan decision: [place] was not needed Quantity approved: n/a Authorization number: n/a Start date: n/a End date: n/a Patient notified? n/a Pharmacy notified? yes, n/a documented in this encounter Plan of Treatment Upcoming Encounters Date Type Department Care Team (Late st Contact Info) Description 04/28/2024 12:00 PM EDT [place]ment [place] [address] documented as of this encounter Visit Diagnoses Not on filedocumented in this encounter Care Teams Bacteriology Teacher Relationship Specialty Start Date End Date Gloria Espinoza MD HOSPITALIST SERVICES [address] [place] [address] [place] [address] PCP - General 07/25/10 11/08/13 documented as of this encounter
--- OUTSIDE RECORDS SUMMARY | 2024-04-07 03:27 | XMS_ITS | Encounter Summary ---
Author Organization [facility] [place] [address] Care Team Providers Care Air Operations Manager Name Role Phone Gloria Espinoza MD Primary Care Provider [phone] Reason for Visit * Reason Onset Date Comments Medication Refill 12/15/2010 Encounter Details Date Type Department Care Team (Late st Contact Info) Description 12/15/2010 [place] [address] Kandy Espana, RN [facility] [place] [address] RA (rheumatoid arthritis) Social History Tobacco Use [...] EDT [place] [address] documented as of this encounter Visit Diagnoses Diagnosis RA (rheumatoid arthritis) Rheumatoid arthritis documented in this encounter Care Teams Air Operations Manager Relationship Specialty Start Date End Date Gloria Espinoza MD HOSPITALIST SERVICES [address] [place] [address] [address] [place], [place] [address] PCP - General 07/25/10 11/08/13 documented as of this encounter
--- OUTSIDE RECORDS SUMMARY | 2024-04-07 03:27 | XMS_ITS | Encounter Summary ---
Author Organization [facility] [place] [address] Care Team Providers Care Cashier Credit Name Role Phone Gloria Espinoza MD Primary Care Provider Encounter Details Date Type Department Care Team (Late st Contact Info) Description 08/01/2010 11:15 AM EST [place] [address] Kandy Espana, RN [facility] [place] [address] Discharge Disposition: Home Social History Tobacco Use [...] 12:00 PM EDT [place] [address] documented as of this encounter Visit Diagnoses Not on filedocumented in this encounter Care Teams Cashier Credit Relationship Specialty Start Date End Date Gloria Espinoza MD HOSPITALIST SERVICES [address] [place] [address] [place] [address] PCP - General 07/25/10 11/08/13 documented as of this encounter
--- OUTSIDE RECORDS SUMMARY | 2024-04-07 03:27 | XMS_ITS | Encounter Summary ---
Author Organization [facility] [place] [address] Care Team Providers Care Acquisition Manager Name Role Phone Gloria Espinoza MD Primary Care Provider [phone] Reason for Visit * Reason Onset Date Comments Medication Refill 12/06/2010 Encounter Details Date Type Department Care Team (Late st Contact Info) Description 12/06/2010 [place] [address] Kandy Espana, RN [facility] [place] [address] RA (rheumatoid arthritis) (Primary Dx) Social History [...] 12:00 PM EDT [place] [address] documented as of this encounter Visit Diagnoses Diagnosis RA (rheumatoid arthritis)- Primary Rheumatoid arthritis documented in this encounter Care Teams Acquisition Manager Relationship Specialty Start Date End Date Gloria Espinoza MD HOSPITALIST SERVICES [address] [place] [address] [place] [address] PCP - General 07/25/10 11/08/13 documented as of this encounter
--- OUTSIDE RECORDS SUMMARY | 2024-04-07 03:27 | XMS_ITS | Encounter Summary ---
Author Organization [facility] Address [address] [place] [address] Care Team Providers Care Upholsterer Outside Name Role Phone Gloria Espinoza MD Primary Care Provider [phone] Encounter Details Date Type Department Care Team (Late st Contact Info) Description 02/04/2014 Results Only Imaging [facility] [phone] Uriah Sommers MD [address] [place] [address] Social History Tobacco Use Types Packs/Day Years [...] EDT Narrative 02/08/2014 23:23 EDT Cardiology [address] [place] [address] Catheterization Laboratory Study Diagnostic report Patient: Wesly Ybarra ? Study Date: ?02/08/2014 ?Accession #: ? [id number] : ? 1950 Referring Physician: Gloria Espinoza [...] vessel. 4. ??Right heart catheterization. A S-tip Chester catheter was successfully advanced ?to the right [...] MD 2014-02-08 23:23 Procedure Note 02/08/[address] [place] [address] Catheterization Laboratory Study Diagnostic report Patient: Wesly [...] vessel. 4. Right heart catheterization. A S-tip Chester catheter was successfullyadvanced to the right ventricle [...] on filedocumented in this encounter Care Teams Upholsterer Outside Relationship Specialty Start Date End Date Gloria Espinoza MD [address] [place] [address] PCP - General 10/01/12 02/07/14 documented as of this encounter
--- OUTSIDE RECORDS SUMMARY | 2024-04-07 03:27 | XMS_ITS | Encounter Summary ---
Author Organization [facility] Address [address] [place] [address] Care Team Providers Care Microbiological Laboratory Technician Name Role Phone Arelis Michele MD Primary Care Provider [phone] Encounter Details Date Type Department Care Team (Late st Contact Info) Description 07/02/2023 Lab Requisition [facility] Pathology & Laboratory Medicine - [facility] [address] [place] [address] M[address] Cee [address] ANTHONY [address] [place] [phone] Neoplasm of unspecified behavior of bone, soft [...] explore management options, if applicable. 07/03/2023 15:26 [facility] Final Diagnosis A. SKIN OF PRE-AURICULAR REGION, RIGHT, SHAVE BIOPSY: - Basal cell carcinoma, nodular type. - Lesion extends to biopsy base. 07/03/2023 15:26 [facility] Attestation By the signature below, the attending physician certifies that they have 1) personally conducted a gross and/or microscopic examination of the described specimen(s), and/or personally interpreted the results of laboratory testing of the described specimen(s), and 2) personally rendered or confirmed the above diagnosis. 07/03/2023 15:26 [facility] at 1526 Clinical History Abnormal skin growth; clinical diagnosis code: D49.2 07/03/2023 15:26 [facility] Gross Description A. Received in formalin labelled with proper patient identification (initials R, D) and preauricular is an irregular dusky jiang, brown speckled skin shave, 1.5 x 1.0 x 0.1 cm. The margin is inked. Serially sectioned and entirely submitted in A1-A2. DONAVAN STARKEY(ASCP) 07/03/2023 7:20 07/03/2023 15:26 [facility] Performing Lab [facility] 07/03/2023 15:26 [facility] Scanned Images 07/03/2023 15:26 [facility] Tissue SPECIMEN FROM SKIN / Unknown 07/01/2023 10:50 EDT 07/02/2023 18:55 EDT Mina GO PATHOLOGY ORDERABL ES [facility] [address] [place] [address] documented in this encounter Visit Diagnoses Diagnosis Neoplasm of unspecified behavior of bone, soft tissue, and skin documented in this encounter Care Teams Microbiological Laboratory Technician Relationship Specialty Start Date End Date Arelis Michele MD [address] [place] [address] PCP - General 02/08/14 documented as of this encounter
--- OUTSIDE RECORDS SUMMARY | 2024-04-07 03:27 | XMS_ITS | Encounter Summary ---
Author Organization [facility] Address [address] [place] [address] Care Team Providers Care Information Manager Name Role Phone Arelis Michele MD Primary Care Provider [phone] Encounter Details Date Type Department Care Team (Late st Contact Info) Description 09/22/2022 Lab Requisition [facility] Pathology & Laboratory Medicine - [facility] [address] [place] [address] Albaro Wade, [address] GABRIELLE [address] [place] [address] Neoplasm of unspecified behavior of bone, soft [...] explore management options, if applicable. 09/24/2022 14:49 [facility] Final Diagnosis A. SKIN OF CHEEK, RIGHT MID, SHAVE BIOPSY: - Seborrheic keratosis, ulcerated. 09/24/2022 14:49 [facility] Attestation By the signature below, the attending physician certifies that they have 1) personally conducted a gross and/or microscopic examination of the described specimen(s), and/or personally interpreted the results of laboratory testing of the described specimen(s), and 2) personally rendered or confirmed the above diagnosis. 09/24/2022 14:49 [facility] at 1449 Clinical History Nonhealing skin lesion; clinical diagnosis code: D49.2 09/24/2022 14:49 [facility] Gross Description A. Received in formalin labelled with proper patient identification (initials R, D) and right mid cheek is a shave biopsy of dixon-pink scaly papule (0.8 x 0.5 x 0.1 cm). The margins are inked blue, the specimen is bisected and submitted entirely in A1. Kristy Irizarry 09/24/2022 5:51 09/24/2022 14:49 [facility] Performing Lab [facility] 09/24/2022 14:49 [facility] Scanned Images 09/24/2022 14:49 [facility] Tissue TISSUE SPECIMEN FROM SKIN / Unknown 09/21/2022 11:15 EST 09/22/2022 7:19 EST Albaro Wade DO PATHOLOGY ORDER [facility] [address] [place] [address] documented in this encounter Visit Diagnoses Diagnosis Neoplasm of unspecified behavior of bone, soft tissue, and skin documented in this encounter Care Teams Information Manager Relationship Specialty Start Date End Date Arelis Michele MD [address] [place] [address] [id number] PCP - General 02/08/14 documented as of this encounter
--- OUTSIDE RECORDS SUMMARY | 2024-04-07 03:27 | XMS_ITS | Encounter Summary ---
Author Organization [facility] [place] [address] Care Team Providers Care Forest Logistics Manager Name Role Phone Gloria Espinoza MD Primary Care Provider [phone] Encounter Details Date Type Department Care Team (Late st Contact Info) Description 11/02/2010 11:00 AM EST [place] [address] Kandy Espana, RN [facility] [place] [address] Discharge Disposition: Home Social History Tobacco Use [...] 12:00 PM EDT [place] [address] documented as of this encounter Procedures Procedure [...] EST Kandy Espana RN HEMATOLOGY ORDERABLE S [facility] * (ABNORMAL) CBC (11/02/2010 11:42 AM EST) [...] EST Kandy Espana RN HEMATOLOGY ORDERABLE S [facility] * CREATININE, SERUM (11/02/2010 11:42 AM [...] Espana RN CHEMISTRY ORDERABLES Performing Organization Address [facility] Phone Number CERNER MILLENNIUM * BUN (11/02/2010 11:42 AM EST) Blood Urea Nitrogen 16 10 - 20 mg/dL CERNER MILLENNIUM Blood specimen (specimen) 11/02/2010 11:42 AM EST 11/02/2010 11:48 AM EST Kandy Espana RN CHEMISTRY ORDERABLES Performing Organization Address [facility] Phone Number CERNER MILLENNIUM * HEPATIC [...] AM EST Kandy Espana RN CHEMISTRY ORDERABLES [facility] documented in this encounter Visit Diagnoses Not on filedocumented in this encounter Care Teams Forest Logistics Manager Relationship Specialty Start Date End Date Gloria Espinoza MD HOSPITALIST SERVICES [address] [place] [address] [place] [address] PCP - General 07/25/10 11/08/13 documented as of this encounter
--- OUTSIDE RECORDS SUMMARY | 2024-04-07 03:27 | XMS_ITS | Encounter Summary ---
Author Organization [facility] Address [address] [place] [address] Care Team Providers Care Floral Designer Name Role Phone Arelis Michele MD Primary Care Provider [phone] Encounter Details Date Type Department Care Team (Late st Contact Info) Description 01/16/[address] [facility] Pathology & Laboratory Medicine - [facility] [address] [place], [place] [address] Outr Resulting Lab, Provider Social History Tobacco [...] 1.14 - 1.35 mmol/L 01/16/2024 19:46 EDT [facility] Comment: Testing performed on heparinized plasma. Results may be biased 5% lower than that of whole blood. Blood VENOUS BLOOD / Unknown 01/16/2024 10:53 EDT 01/16/2024 19:42 EDT Provider Outr Resulting Lab CHEMISTRY & BLOOD GAS ORDERABLES [facility] [address] [place] [address] documented in this encounter Visit Diagnoses Not on filedocumented in this encounter Care Teams Floral Designer Relationship Specialty Start Date End Date Arelis Michele MD [address] [place] [address] PCP - General 02/08/14 documented as of this encounter
--- OUTSIDE RECORDS SUMMARY | 2024-04-07 03:27 | XMS_ITS | Encounter Summary ---
Author Organization [facility] Address [address] [place] [address] Care Team Providers Care Inhalation Therapy Aides Teacher Name Role Phone Arelis Michele MD Primary Care Provider [phone] Encounter Details Date Type Department Care Team (Late st Contact Info) Description 05/26/2020 Lab Requisition [facility] Pathology & Laboratory Medicine - [address] [address] Outr Resulting Lab, Provider Social History Tobacco [...] acid-fast bacilli isolated VITEK SUSCEPTIBILITY 08/02/2020 10:26 [facility] AFB Smear No Acid Fast Bacilli Seen 08/02/2020 10:26 [facility] Sputum COLLECTION OF INDUCED SPUTUM / Unknown 05/25/2020 10:00 EDT 05/26/2020 21:36 EDT Provider Outr Resulting Lab MICROBIOLOGY - GENERAL ORDERABLES [facility] [address] [place] [address] documented in this encounter Visit Diagnoses Not on filedocumented in this encounter Care Teams Inhalation Therapy Aides Teacher Relationship Specialty Start Date End Date Arelis Michele MD [address] [place] [address] PCP - General 02/08/14 documented as of this encounter
--- OUTSIDE RECORDS SUMMARY | 2024-04-07 03:27 | XMS_ITS | Encounter Summary ---
Author Organization [facility] Address [address] [place] [address] Care Team Providers Care Dentist Private Practice Name Role Phone Arelis Michele MD Primary Care Provider [phone] Encounter Details Date Type Department Care Team (Late st Contact Info) Description 04/09/2023 Lab Requisition [facility] Pathology & Laboratory Medicine - [address] [address] Outr Resulting Lab, Provider Social History Tobacco [...] on filedocumented in this encounter Care Teams Dentist Private Practice Relationship Specialty Start Date End Date Arelis Michele MD [address] [place] [address] PCP - General 02/08/14 documented as of this encounter
--- OUTSIDE RECORDS SUMMARY | 2024-04-07 03:27 | XMS_ITS | Encounter Summary ---
Author Organization [facility] Address [address] [place] [address] Care Team Providers Care Panel Maker Name Role Phone Arelis Michele MD Primary Care Provider [phone] Encounter Details Date Type Department Care Team (Late st Contact Info) Description 06/02/2021 Lab Requisition [facility] Pathology & Laboratory Medicine - [address] [address] Outr Resulting Lab, Provider Social History Tobacco [...] 11:50 EDT) Hold Hold 06/02/2021 22:16 EDT [facility] Blood VENOUS BLOOD / Unknown 06/02/2021 11:50 EDT 06/02/2021 21:01 EDT Provider Outr Resulting Lab LAB INFO SER VICE AND SUPPORT & PHONE RESULT Performing Organization Address [facility] Co de Phone Number [facility] [address] [place] [address] * HEPATITIS B SURFACE ANTIBODY (06/02/2021 11:50 EDT) Pathologist [facility] Hep B Surface Ab, Quantitative <3.1 See Note mIU/mL 06/05/2021 9:59 EDT [facility] Comment: Reference Range for Hep B Surface Ab, Quant: Positive: >= 10.0 mIU/mL Negative: ??< 10.0 mIU/mL Patient is presumed to not be immune to infection with Hepatitis B Virus. Hep B Surface Ab, Qualitative Negative See Note 06/05/2021 9:59 EDT [facility] Comment: Reference Range for Hep B Surface Ab, Qual: Unvaccinated: ??Negative Vaccinated: ??Positive Blood VENOUS BLOOD / Unknown 06/02/2021 11:50 EDT 06/02/2021 21:00 EDT Provider Outr Resulting Lab CHEMISTRY & BLOOD GAS ORDERABLES Performing Organization Address [facility]/ZIP Co de Phone Number [facility] [address] [place] [address] * HEPATITIS B CORE ANTIBODY (TOTAL) (06/02/2021 11:50 EDT) Pathologist [facility] Hepatitis B Core Ab, Total Negative Negative 06/05/2021 11:10 EDT [facility] Blood VENOUS BLOOD / Unknown 06/02/2021 11:50 EDT 06/02/2021 21:00 EDT Provider Outr Resulting Lab CHEMISTRY & BLOOD GAS ORDERABLES Performing Organization Address City/[facility]/ZIP Co de Phone Number [facility] [address] [place] [address] * HEPATITIS B SURFACE ANTIGEN (06/02/2021 11:50 EDT) Hep B Surface Ag Negative Negative 06/05/2021 10:09 EDT [facility] Blood VENOUS BLOOD / Unknown 06/02/2021 11:50 EDT 06/02/2021 21:00 EDT Provider Outr Resulting Lab CHEMISTRY & BLOOD GAS ORDERABLES Performing Organization Address City/[facility]/ZIP Co de Phone Number [facility] [address] [place] [address] * HEPATITIS C AB W REFLEX TO HCV RNA BY PCR (06/02/2021 11:50 EDT) Hep C Antibody Negative Negative 06/05/2021 10:39 EDT [facility] Blood VENOUS BLOOD / Unknown 06/02/2021 11:50 EDT 06/02/2021 21:00 EDT Provider Outr Resulting Lab CHEMISTRY & BLOOD GAS ORDERABLES Performing Organization Address City/[facility]/ZIP Co de Phone Number [facility] [address] [place] [address] documented in this encounter Visit Diagnoses Not on filedocumented in this encounter Care Teams Panel Maker Relationship Specialty Start Date End Date Arelis Michele MD [address] [place] [address] PCP - General 02/08/14 documented as of this encounter
--- OUTSIDE RECORDS SUMMARY | 2024-04-07 03:27 | XMS_ITS | Encounter Summary ---
Author Organization [facility] Address [address] [place] [address] Care Team Providers Care Platen Drier Operator Name Role Phone Arelis Michele MD Primary Care Provider [phone] Encounter Details Date Type Department Care Team (Late st Contact Info) Description 04/16/2023 Lab Requisition [facility] Pathology & Laboratory Medicine - [address] [address] Outr Resulting Lab, Provider Social History Tobacco [...] bacilli isolated VITEK SUSCEPTIBILITY 06/12/2023 7:53 EDT [facility] AFB Smear No Acid Fast Bacilli Seen 06/12/2023 7:53 EDT [facility] Sputum COLLECTION OF INDUCED SPUTUM / Unknown 04/15/2023 8:00 EDT 04/16/2023 18:36 EDT Provider Outr Resulting Lab MICROBIOLOGY - GENERAL ORDERABLES [facility] [address] [place] [address] documented in this encounter Visit Diagnoses Not on filedocumented in this encounter Care Teams Platen Drier Operator Relationship Specialty Start Date End Date Arelis Michele MD [address] [place] [address] PCP - General 02/08/14 documented as of this encounter
--- OUTSIDE RECORDS SUMMARY | 2024-04-07 03:27 | XMS_ITS | Encounter Summary ---
Author Organization [facility] [place] [address] Care Team Providers Care Wig Maker Name Role Phone Gloria Espinoza MD Primary Care Provider [phone] Reason for Visit * Reason Onset Date Comments Other 01/01/2011 returning call t o pt at his request Encounter Details Date Type Department Care Team (Late st Contact Info) Description 01/01/2011 [place] [address] Kandy Espana, RN [facility] [place] [address] Other (returning call to pt at his [...] 12:00 PM EDT [place] [address] documented as of this encounter Visit Diagnoses Not on filedocumented in this encounter Care Teams Wig Maker Relationship Specialty Start Date End Date Gloria Espinoza MD HOSPITALIST SERVICES [address] [place] [address] [place] [address] PCP - General 07/25/10 11/08/13 documented as of this encounter
--- OUTSIDE RECORDS SUMMARY | 2024-04-07 03:27 | XMS_ITS | Encounter Summary ---
Author Organization [facility] [place] [address] Care Team Providers Care Client Services Specialist Name Role Phone Gloria Espinoza MD Primary Care Provider [phone] Reason for Visit * Reason Onset Date Comments Medication Problem 01/11/2011 Encounter Details Date Type Department Care Team (Late st Contact Info) Description 01/11/2011 [place] [address] Jarvis Espana, RN [facility] [address] [place] [address] Medication Problem Social History Tobacco Use Types Packs/Day Years Used Date Smoking Tobacco: Never Assessed Sex and Gender Information Value Date Recorded Sex Assigned at Not on file Gender Identity Not on file Sexual Orientation Not on file documented as of this encounter Miscellaneous Notes * Telephone Encounter - Jarvis Espana, TARIFF EXPERT - 01/11/2011 12:46 PM EDT Attempted to [...] 12:00 PM EDT [place] [address] documented as of this encounter Visit Diagnoses Not on filedocumented in this encounter Care Teams Client Services Specialist Relationship Specialty Start Date End Date Gloria Espinoza MD HOSPITALIST SERVICES [address] [place] [address] [place] [address] PCP - General 07/25/10 11/08/13 documented as of this encounter
--- OUTSIDE RECORDS SUMMARY | 2024-04-07 03:27 | XMS_ITS | Encounter Summary ---
Author Organization [facility] Address [address] [place] [address] Care Team Providers Care Waistline Joiner Lockstitch Name Role Phone Arelis Michele MD Primary Care Provider [phone] Encounter Details Date Type Department Care Team (Late st Contact Info) Description 06/03/2021 Lab Requisition [facility] Pathology & Laboratory Medicine - [address] [address] Outr Resulting Lab, Provider Social History Tobacco [...] Quantiferon Interpretation Negative Negative 06/05/2021 13:[address] [facility] Comment:No interferon-gamma response to M. tuberculosis antigens was detected. ??Infection with M. tuberculosis is unlikely. A single negative result does not exclude infection with M. tuberculosis. ??In patients at high risk for M. tuberculosis infection, a second test should be considered. TB1 Ag minus Nil 0.00 IU/ml 06/05/20 13:[address] [facility] TB2 Ag minus Nil 0.00 IU/mL 06/05/20 13:[address] [facility] Blood VENOUS BLOOD / Unknown 06/02/2021 11:50 EDT 06/05/2021 13:34 EDT [address]arr[address] [facility] - 06/05/2021 13:41 EDT Results were obtained with the [employer] QuantiFERON-TB Gold Plus CLIA. New platform in use 05/10/2021 Provider Outr Resulting Lab IMMUNOLOGY A ND SEROLOGY ORDERABLES Performing Organization Address [facility] Co de Phone Number [facility] [address] [place] [address] * QUANTIFERON MITOGEN (PERFORMABLE) (06/02/2021 11:50 EDT) Blood VENOUS BLOOD / Unknown 06/02/2021 11:50 EDT 06/03/2021 22:20 EDT Provider Outr Resulting Lab IMMUNOLOGY A ND SEROLOGY ORDERABLES [facility] [address] [place] [address] * QUANTIFERON TB2 (PERFORMABLE) (06/02/2021 11:50 EDT) Blood VENOUS BLOOD / Unknown 06/02/2021 11:50 EDT 06/03/2021 22:20 EDT Provider Outr Resulting Lab IMMUNOLOGY A ND SEROLOGY ORDERABLES Performing Organization Address City/[facility]/ZIP Co de Phone Number [facility] [address] [place] [address] * QUANTIFERON TB1 (PERFORMABLE) (06/02/2021 11:50 EDT) Blood VENOUS BLOOD / Unknown 06/02/2021 11:50 EDT 06/03/2021 22:20 EDT Provider Outr Resulting Lab IMMUNOLOGY A ND SEROLOGY ORDERABLES Performing Organization Address [facility] Co de Phone Number [facility] [address] [place] [address] * QUANTIFERON NIL (PERFORMABLE) (06/02/2021 11:50 EDT) Blood VENOUS BLOOD / Unknown 06/02/2021 11:50 EDT 06/03/2021 22:20 EDT Provider Outr Resulting Lab IMMUNOLOGY A ND SEROLOGY ORDERABLES Performing Organization Address [facility] de Phone Number [facility] [address] [place] [address] documented in this encounter Visit Diagnoses Not on filedocumented in this encounter Care Teams Waistline Joiner Lockstitch Relationship Specialty Start Date End Date Arelis Michele MD [address] [place] [address] PCP - General 02/08/14 documented as of this encounter
--- OUTSIDE RECORDS SUMMARY | 2024-04-07 03:27 | XMS_ITS | Encounter Summary ---
Author Organization [facility] Address [address] [place] [address] Care Team Providers Care Powder Core Tester Name Role Phone Lee Michele MD Primary Care Provider [phone] Encounter Details Date Type Department Care Team (Latest Contact Info) Description 02/08/2014 7:30 EDT - 02/08/2014 14:09 EDT Hospital Encounter [facility] Cardiovascular Unit [address] [place] [address] Todd Ochoa MD [address] [place] [address] [place] [phone] Discharge Disposition: Home or Self Care [...] RHC. * Landy Mehta RN - 02/05/2014 0931 EDT Precardiac Cath Nursing Checklist Recent Labs: 02/03/14 BUN 12, CREATININE 1.0, GFR >60 No results found for this basename: BUN, CREATININE, HGB, CALCGFR Hgt: Height: 182.9 cm (72) Wgt: Weight : 95.255 kg (210 lb) Allergies: Allergies Allergen Reactions ??? Levothyroxine ??? Lisinopril Dry cough ??? Other - See Comments [facility] - [place], [place] - [address] [facility] [address] [facility] [address] Cardiac History: Stress Test? No Reason for [...] instructed to register on the 3rd floor [facility]. Transportation Issues: No Patient/family instructed that they will need a designated auto parts delivery driver if they are discharged on the dayof [...] concerns were addressed appropriately. Jolanta Ruff MD sheet rock installation helper - PGY 4 Pager - [phone]. documented in this encounter Procedure Notes * INTAKE CLERK, SCAN 2 - 02/11/2014 0927 EDTAssociated Order(s): [...] vein Procedure: He was brought to the [facility] Cardiac Catheter[facility] Laboratory for the procedure: Diagnostic [...] EST) 09/14/2015 10:1 2 EST Scan 2 Revenue Coordinator PROCEDURE/MINOR IBIS GICAL ORDERABLES * PROCEDURE REPORTS - SCANNED (02/11/2014 9:27 EDT) 02/11/2014 9:27 EDT Narrative 02/11/2014 9:50 EDT Procedure Note INTAKE CLERK, SCAN 2 - 02/11/2014 9:27 EDT Scan 2 Revenue Coordinator PROCEDURE/MINOR IBIS GICAL ORDERABLES * INVASIVE CARDIOLOGY REPORT-SCANNED (02/11/2014 9:27 EDT) 02/11/2014 9:27 EDT Scan 2 Revenue Coordinator PROCEDURE/MINOR IBIS GICAL ORDERABLES * ECG REPORT - SCANNED (02/10/2014 11:12 EDT) 02/10/2014 11:1 2 EDT Scan 2 Revenue Coordinator PROCEDURE/MINOR IBIS GICAL ORDERABLES * EKG 12-LEAD (02/08/2014 8:55 EDT) 02/08/2014 8:55 EDT Narrative [facility] EKG - 02/08/2014 11:17 EDT ?[facility] ? Test Date: ?2014-02-08 Pat Name: ? LEEANNE YBARRA ? Department: ?? CVU ? Room: ? CVU07 Gender: ? M ?Cheese Processor: ?? [id number] : ?1950 ? Requested By: SPEEDY SREEDIVYA Order Number: [id number] ? Skyler CASTILLO: ?? TODD OCHOA MD ? Measurements Intervals ?Buchtel ? Rate: ? 92 ? P: ?38 NE: ? 188 ?QRS: ?6 QRSD: ? 112 [...] Pat Name: LEEANNE YBARRA Department: CVU Room: [facility] Gender: M Cheese Processor: [id number] : 1950 Requested By: SPEEDY VO Order Number: [id number] Reading MD: TODD OCHOA MD Measurements Intervals [place]tel Rate: 92 P: 38 NE: 188 QRS: 6 QRSD: 112 T: 36 QT: 355 QTc: 441 Interpretive Statements SINUS RHYTHM MODERATE INTRAVENTRICULAR CONDUCTION DELAY Borderline ECG No previous ECG available for comparison I reviewed the tracing and agreed or edited the report. ElectronicallySigned On 02-08-14 11:17:26 EDT by TODD OCHOA MD. Jolanta MADRID CARDIAC ECG ORDERAB LES Performing Organization Address City/[facility]/ZIP Co de Phone Number [facility] EKG * [...] & PF4 OR DERABLES Performing Organization Address [facility] de Phone Number [facility] [address] [place] [address] * (ABNORMAL) HEMAGRAM (02/08/2014 8:13 EDT) WBC [...] & PF4 OR DERABLES Performing Organization Address City/[facility] Co de Phone Number [facility] [address] [place] [address] * CREATININE (02/08/2014 8:13 EDT) Creatinine 0.81 0.66 - 1.25 mg/dl [facility] GFR, Calculated >60 >60 ml/min/1.7 3m2 [facility] Blood specimen (specimen) 02/08/2014 8:13 EDT 02/08/2014 8:36 EDT Jolanta Ruff BS CHEMISTRY & BLOOD G ORDERABLES Performing Organization Address [facility] Co de Phone Number [facility] [address] [place] [address] * BUN (02/08/2014 8:13 EDT) BUN 15 10 - 26 mg/dl [facility] Blood specimen (specimen) 02/08/2014 8:13 EDT 02/08/2014 8:36 EDT Jolanta Ruff [facility] CHEMISTRY & BLOOD G ORDERABLES Performing Organization Address [facility] Phone Number [facility] [address] [place] [address] * ELECTROLYTES (02/08/2014 8:13 EDT) Sodium 139 136 - 145 mEq/L [facility] Potassium 4.1 3.5 - 5.0 mEq/L [facility] Chloride 104 96 - 110 mEq/L [facility] CO2 28 24 - 32 mEq/L [facility] Blood specimen (specimen) 02/08/2014 8:13 EDT 02/08/2014 8:36 EDT Sotoblaine Speedy BS CHEMISTRY & BLOOD G ORDERABLES Performing Organization Address [facility] Co de Phone Number [facility] [address] [place] [address] documented in this encounter Visit Diagnoses Not [...] 02/08/2014 documented in this encounter Care Teams Powder Core Tester Relationship Specialty Start Date End Date Lee Michele MD [address] [place] [address] PCP - General 02/08/14 documented as of this encounter
--- OUTSIDE RECORDS SUMMARY | 2024-04-07 03:27 | XMS_ITS | Encounter Summary ---
Author Organization [facility] Address [address] [place] [address] Care Team Providers Care Administrative Assistant Name Role Phone Arelis Michele MD Primary Care Provider [phone] Encounter Details Date Type Department Care Team (Late st Contact Info) Description 01/16/2024 Lab Requisition [facility] Pathology & Laboratory Medicine - [facility] [address] [place], [place] [address] Outr Resulting Lab, Provider Social History Tobacco [...] - 88 pg/mL 01/16/2024 21:01 EDT [facility] Blood VENOUS BLOOD / Unknown 01/16/2024 10:53 EDT 01/16/2024 19:42 EDT Provider Outr Resulting Lab CHEMISTRY & BLOOD GAS ORDERABLES [facility] [address] [place] [address] documented in this encounter Visit Diagnoses Not on filedocumented in this encounter Care Teams Administrative Assistant Relationship Specialty Start Date End Date Arelis Michele MD [address] [place] [address] PCP - General 02/08/14 documented as of this encounter
--- OUTSIDE RECORDS SUMMARY | 2024-04-07 03:27 | XMS_ITS | Encounter Summary ---
Author Organization [facility] Address [address] [place] [address] Care Team Providers Care Wholesale Manager Name Role Phone Arelis Michele MD Primary Care Provider [phone] Encounter Details Date Type Department Care Team (Late st Contact Info) Description 10/26/2022 Lab Requisition [facility] - Main [place] [address] [place] [phone] Albaro Wade, [address] [place], [place] [address] Basal cell carcinoma of skin, unspecified Social [...] explore management options, if applicable. 10/31/2022 13:15 [facility] Final Diagnosis A. SKIN OF POSTERIOR [...] identified. - Final margins negative. 10/31/2022 13:15 [facility] Diagnosis Comment Final margins all interpreted as negative for tumor. Correlation is made with the prior biopsy report ([id number]). 10/31/2022 13:15 [facility] Attestation By the signature below, the attending physician certifies that they have 1) personally conducted a gross and/or microscopic examination of the described specimen(s), and/or personally interpreted the results of laboratory testing of the described specimen(s), and 2) personally rendered or confirmed the above diagnosis. 10/31/2022 13:15 [facility] at 1315 Intraoperative Consultation A. SKIN [...] 10/25/22 (frozen section performed and evaluated at [facility]) 10/31/2022 13:15 [facility] Clinical History basal cell carcinoma 10/31/2022 13:15 [facility] Gross Description A. Received fresh labeled [...] entirely submitted in 1 cassette. 10/31/2022 13:15 [facility] Performing Lab [facility] 10/31/2022 13:15 [facility] Scanned Images 10/31/2022 13:15 [facility] Tissue TISSUE SPECIMEN FROM SKIN / Unknown 10/25/2022 12:43 EST 10/26/2022 14:07 EST Tissue specimen (specimen) SPECIMEN FROM SKIN / Unknown 10/25/2022 12:43 EST 10/26/2022 14:07 EST Tissue specimen (specimen) SPECIMEN FROM SKIN / Unknown 10/25/2022 12:43 EST 10/26/2022 14:07 EST Albaro Wade DO PATHOLOGY ORDER DARIAN [facility] [address] [place] [address] documented in this encounter Visit Diagnoses Diagnosis Basal cell carcinoma of skin, unspecified documented in this encounter Care Teams Wholesale Manager Relationship Specialty Start Date End Date Arelis Michele MD [address] [place] [address] PCP - General 02/08/14 documented as of this encounter
--- OUTSIDE RECORDS SUMMARY | 2024-04-07 03:27 | XMS_ITS | Encounter Summary ---
Author Organization [facility] Address [address] [place] [address] Care Team Providers Care Parking Meter Collector Name Role Phone Arelis Michele MD Primary Care Provider [phone] Encounter Details Date Type Department Care Team (Late st Contact Info) Description 04/12/2023 Lab Requisition [facility] Pathology & Laboratory Medicine - [address] [address] Outr Resulting Lab, Provider Social History Tobacco [...] bacilli isolated VITEK SUSCEPTIBILITY 06/08/2023 16:46 EDT [facility] AFB Smear No Acid Fast Bacilli Seen 06/08/2023 16:46 EDT [facility] Sputum SPUTUM / Unknown 04/12/2023 8:00 EDT 04/12/2023 22:40 EDT Provider Outr Resulting Lab MICROBIOLOGY - GENERAL ORDERABLES [facility] [address] [place] [address] documented in this encounter Visit Diagnoses Not on filedocumented in this encounter Care Teams Parking Meter Collector Relationship Specialty Start Date End Date Arelis Michele MD [address] [place] [address] PCP - General 02/08/14 documented as of this encounter
--- OUTSIDE RECORDS SUMMARY | 2024-04-07 03:27 | XMS_ITS | Encounter Summary ---
Author Organization [facility] [place] [address] Care Team Providers Care Upper And Bottom Lacer Hand Name Role Phone Gloria Espinoza MD Primary Care Provider [phone] Reason for Visit * Reason Onset Date Comments Medication Refill 01/01/2011 Encounter Details Date Type Department Care Team (Late st Contact Info) Description 01/01/2011 [place] [address] Kandy Espana, RN [facility] [place] [address] RA (rheumatoid arthritis) (Primary Dx) Social History [...] 12:00 PM EDT [place]oint[place] [phone] documented as of this encounter Visit Diagnoses Diagnosis RA (rheumatoid arthritis)- Primary Rheumatoid arthritis documented in this encounter Care Teams Upper And Bottom Lacer Hand Relationship Specialty Start Date End Date Gloria Espinoza MD [facility] [address] [place] [address] [place] [address] PCP - General 07/25/10 11/08/13 documented as of this encounter
--- OUTSIDE RECORDS SUMMARY | 2024-04-07 03:27 | XMS_ITS | Encounter Summary ---
Author Organization [facility] Address [address] [place] [address] Care Team Providers Care Roller Die Cutting Machine Operator Name Role Phone Arelis Michele MD Primary Care Provider Encounter Details Date Type Department Care Team (Late st Contact Info) Description 05/21/2022 Lab Requisition [facility] Pathology & Laboratory Medicine - [facility] [address] [place] [address] Albaro Wade, [address] [place] [address] Neoplasm of unspecified behavior of bone, soft [...] explore management options, if applicable. 05/22/2022 14:52 [facility] Final Diagnosis A. SKIN OF POSTAURICULAR REGION, RIGHT, SHAVE BIOPSY: - Basal cell carcinoma, nodular type. - Basal cell carcinoma present at deep tissue edge. 05/22/2022 14:52 [facility] Attestation By the signature below, the attending physician certifies that they have 1) personally conducted a gross and/or microscopic examination of the described specimen(s), and/or personally interpreted the results of laboratory testing of the described specimen(s), and 2) personally rendered or confirmed the above diagnosis. 05/22/2022 14:52 [facility] at 1452 Microscopic Description Irregularly [...] of the islands and stroma. 05/22/2022 14:52 [facility] Clinical History Bleeding lesion; clinical diagnosis code: D49.2 05/22/2022 14:52 [facility] Gross Description A. Received in formalin labelled with proper patient identification (initials R, D) and right postauricular skin is a 1.2 x 0.9 x 0.1 cm ovoid shave of pearly jiang skin. The margin is inked. The specimen is trisected and entirely submitted in A1. DONAVAN HELMS(ASCP) 05/22/2022 8:10 05/22/2022 14:52 [facility] Performing Lab [facility] 05/22/2022 14:52 [facility] Scanned Images 05/22/2022 14:52 [facility] Tissue TISSUE SPECIMEN FROM SKIN / Unknown 05/18/2022 14:20 EDT 05/21/2022 16:56 EDT Albaro Wade DO PATHOLOGY ORDER DARIAN [facility] [address] [place] [address] documented in this encounter Visit Diagnoses Diagnosis Neoplasm of unspecified behavior of bone, soft tissue, and skin documented in this encounter Care Teams Roller Die Cutting Machine Operator Relationship Specialty Start Date End Date Arelis Michele MD [address] [place] [address] PCP - General 02/08/14 documented as of this encounter
--- OUTSIDE RECORDS SUMMARY | 2024-04-07 03:27 | XMS_ITS | Encounter Summary ---
Author Organization [facility] Address [address] [place] [address] Care Team Providers Care Photo Studio Assistant Name Role Phone Arelis Michele MD Primary Care Provider [phone] Encounter Details Date Type Department Care Team (Late st Contact Info) Description 04/11/2023 Lab Requisition [facility] Pathology & Laboratory Medicine - [facility] [address] [place] [address] Outr Resulting Lab, Provider Social History Tobacco [...] bacilli isolated VITEK SUSCEPTIBILITY 06/07/2023 9:50 EDT [facility] AFB Smear No Acid Fast Bacilli Seen 06/07/2023 9:50 EDT [facility] Sputum SPUTUM / Unknown 04/11/2023 9:00 EDT 04/11/2023 22:15 EDT Provider Outr Resulting Lab MICROBIOLOGY - GENERAL ORDERABLES [facility] [address] [place] [address] documented in this encounter Visit Diagnoses Not on filedocumented in this encounter Care Teams Photo Studio Assistant Relationship Specialty Start Date End Date Arelis Michele MD [address] [place] [address] PCP - General 02/08/14 documented as of this encounter
--- OUTSIDE RECORDS SUMMARY | 2024-04-07 03:28 | XMS_ITS | Encounter Summary ---
Author Organization [facility] Address [address] [place] [address] Care Team Providers Care Auto Service Writer Name Role Phone Unavailable Primary Care Provider Unavailabl e Encounter Details Date Type Department Care Team (Late st Contact Info) Description 11/15/2009 Results Only [facility] Laboratory Services - [facility] ([facility]) [address] [place], [place] [address] Doe Macias, DO [address] [facility] [address] [place], [place] [id number] Social History Tobacco Use Types Packs/Day Years [...] CYNDIE, LEEANNE M ? Accession #: ? [id number] ? : ? 1950 (Age: 59) ??M [...] screen ? Gross Description: ? Received in [facility]'s fixative labelled Leeanne Ybarra and ascending ?? colon polyp is a dixon-pink tissue measuring 0.8 x 0.4 x 0.4 cm. ??The specimen is trisected and submitted entirely as (A). ? Received in [facility]'s fixative labelled Leeanne Ybarra and polyp 70 cm are two dixon-pink tissues measuring 0.6 x 0.6 x 0.3 cm and 0.5 x 0.2 x 0.1 cm. ??The ?? larger specimen is trisected and submitted entirely as (B1) and the smaller ? specimen is entirely submitted as (B2). ([facility] ? End of Report ? MAL SONG 11/15/2009 11/16/2009 9:0 9 EDT Doe Macias DO PATHOLOGY ORDER D[facility]IAN [facility] [address] [place] [address] documented in this encounter Visit Diagnoses Not on filedocumented in this encounter
--- OUTSIDE RECORDS SUMMARY | 2024-04-07 03:28 | XMS_ITS | Encounter Summary ---
Author Organization [facility] Address [address] [place] [address] Care Team Providers Care Hand Inspector Name Role Phone Augustus Medel MD Primary Care Provider Unavailab le Encounter Details Date Type Department Care Team (Late st Contact Info) Description 04/20/2004 Results Only [facility] [address] [place] [address] Augustus Morin MD [address] [place] [phone] Social History Tobacco Use Types Packs/Day Years [...] ? LEEANNE AGEE ? Accession #: ? [id number] ? : ? 1950 (Age: 53) ??M [...] A2 ?Distal tips reverse en face (Dr. King)/[facility] End of Report MAL SONG 04/20/2004 04/21/2004 15: 19 EDT Augustus Morin MD PATHOLOGY ORDERABLES [facility] SONG [address] [place] [address] documented in this encounter Visit Diagnoses Not on filedocumented in this encounter Care Teams Hand Inspector Relationship Specialty Start Date End Date Augustus Medel MD PCP - General 11/17/09 02/22/11 documented as of this encounter
--- OUTSIDE RECORDS SUMMARY | 2024-04-07 03:28 | XMS_ITS | Encounter Summary ---
Author Organization [facility] Address [address] [place] [address] Care Team Providers Care Manager Retirement Name Role Phone Austin Medel MD Primary Care Provider Unavailab le Encounter Details Date Type Department Care Team (Late st Contact Info) Description 02/20/2011 Results Only [facility] [phone] Allen Liao, [address] [place], [place] [address] Social History Tobacco Use Types Packs/Day Years [...] reading/interpreting unformatted reports. ? Name: ? RAMSDELL, LEENANE M ? Accession #: ? [id number] ? : ? 1950 (Age: 60) ??M [...] PATHOLOGY ORDER [facility] [address] [place] [address] documented in this encounter Visit Diagnoses Not on filedocumented in this encounter Care Teams Manager Retirement Relationship Specialty Start Date End Date Austin Medel MD PCP - General 11/17/09 02/22/11 documented as of this encounter
--- OUTSIDE RECORDS SUMMARY | 2024-04-07 03:28 | XMS_ITS | Encounter Summary ---
Author Organization [facility] Address [address] [place] [address] Care Team Providers Care Bolt Machine Operator Name Role Phone Unknown, Provider Primary Care Provider [phone] Encounter Details Date Type Department Care Team (Late st Contact Info) Description 09/30/2012 Results Only [facility] Laboratory Services - [facility] ([facility]) [address] [place], [place] [address] Doe Macias, [address] [facility] [address] [place], [place] [address] Social History Tobacco Use Types Packs/Day Years [...] ? LEEANNE AGEE ? Accession #: ? [id number] ? : ? 1950 (Age: 61) ??M [...] specimens are submitted intact as (D1). ??(Cristobal Florian)/[facility] End of Report MAL SONG 09/30/2012 16:1 4 EST 09/30/2012 16:14 EST Doe Macias DO PATHOLOGY ORDER DARIAN [facility] [address] [place] [address] documented in this encounter Visit Diagnoses Not on filedocumented in this encounter Care Teams Bolt Machine Operator Relationship Specialty Start Date End Date Unknown, Provider, PCP - General 02/23/11 09/30/12 documented as of this encounter
--- OUTSIDE RECORDS SUMMARY | 2024-04-07 03:28 | XMS_ITS | Encounter Summary ---
Author Organization [facility] Address [address] [place] [address] Care Team Providers Care Navy Fighter Pilot Name Role Phone Unavailable Primary Care Provider Unavailabl e Encounter Details Date Type Department Care Team (Late st Contact Info) Description 08/17/2008 Before PRISM Converted Visit (Maple) [facility] - Maple conversion [address] [place] [address] Doe Macias, DO [address] [facility] [address] [place], [place] [id number] Social History Tobacco Use Types Packs/Day Years [...] ? LEEANNE AGEE ? Accession #: ? [id number] ? : ? 1950 (Age: 57) ??M [...] ?? submitted as (A). ? Received in [facility]'s labelled Ramsdell and bx stomach polyp are two ? dixon-pink, irregular, soft tissues measuring 0.2 x 0.2 x 0.1 cm and 0.4 x 0.2 x ?? 0.2 cm. ??The specimens are entirely submitted as (B). ? Received in [facility]'s labelled Amada and bx fundus is a dixon-pink, ? irregular, soft tissue measuring 0.4 x 0.2 x 0.1 cm. ??The specimen is entirely ?? submitted as (C). ? Received in [facility]'s labelled Ramsdell and bx distal esophagus are [...] PATHOLOGY ORDER [facility] [address] [place] [address] documented in this encounter Visit Diagnoses Not on filedocumented in this encounter
[2024-04-07] MEDS: Levalbuterol HFA 15 GM INH 4 PUFF IH (09:18)
[2024-04-07] MEDS: Inhaler, Assist Device 1 EACH MC (09:19)
--- NOTE | 2024-04-07 15:04 | W.PFT ---
Date of service: 04/07/24 Time of Service: 08:00 Pulmonary Function Test Result Requesting Provider Geneva Cruz Indications: R diaprhagmatic paralysis Impression Normal spirometry with moderate decrease FEV1 and FVC. Moderate restrictive ventilatory defect with mild air trapping. Mild decrease in diffusion. Flow volume curves may suggest restriction. Impression Moderate restrictive ventilatory defect with mild air trapping and a mild decrease in diffusion. Clinical Correlation therefore is recommended.
== END 2024-04-07 03:19 | disposition home or self-care (01) ==
PROVIDERS: PCP Family Medicine; Visit Provider Student in an Organized Health Care Education/Training Program
DX: G70.9 Myoneural disorder, unspecified (principal); J98.6 Disorders of diaphragm
CPT/HCPCS: 00123; 94060; 94726; 94729

== ENCOUNTER 2024-04-24 21:02 | Outpatient (CLI) | payer OTHER, SELFPAY ==
[2024-04-24 12:53] LABS: ESR 1 mm/hr (0-20)
[2024-04-24 12:54] LABS: Abs Immature Grans 0.02 10^3/uL (0.0-0.06); Absolute Basophil Count 0.05 10^3/uL (0.0-0.2); Absolute Eosinophil Count 0.35 10^3/uL (0.0-0.7); Absolute Lymphocyte Count 2.31 10^3/uL (1.2-3.4); Absolute Monocyte Count 0.65 10^3/uL (0.1-0.8); Absolute Neutrophil Count 6.12 10^3/uL (1.2-6.7); Basophils % 0.5 %; Eosinophils % 3.7 %; HCT 50.3 % (40.0-50.0); HGB 15.7 g/dL (13.5-17.5); Immature Grans % 0.2 %; Lymphocytes % 24.3 %; MCH 29.6 pg (27.0-33.0); MCHC 31.2 % (32.0-36.0); MCV 95 fL (80-95); MPV 9.3 fL (8.0-11.0); Monocytes % 6.8 %; Neutrophils % 64.5 %; Platelet Count 218 10^3/uL (130-400); RBC 5.31 10^6/uL (4.36-5.78); RDW 13.5 % (11.8-14.1); RDW-SD 47.3 fL
[2024-04-24 13:18] LABS: ALT 27 U/L (16-63); AST 23 U/L (15-37); Albumin 3.4 g/dL (3.4-5.0); Alkaline Phosphatase 73 U/L (46-116); Anion Gap 6.4 mmol/L (3-11); BUN 16 mg/dL (7-18); Bilirubin, Total 0.35 mg/dL (0.2-1.0); CO2 30.6 mmol/L (21.0-32.0); CREATININE 1.2 mg/dL (0.70-1.30); Calcium 9.3 mg/dL (8.5-10.1); Chloride 105 mmol/L (98-107); Estimated GFR 63.07 (mL/min/1.73m2); Glucose 85 mg/dL (74-106); Potassium 3.6 mmol/L (3.5-5.1); Sodium 142 mmol/L (136-145); Total Protein 6.5 g/dL (6.4-8.2)
[2024-04-24 13:21] LABS: C-Reactive Protein < 0.50 mg/dL (<or=0.5)
--- OUTSIDE RECORDS SUMMARY | 2024-04-24 21:04 | XMS_ITS | Continuity of Care Document ---
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 Plan of Treatment Reminders Order Date Submit Date Provider Last Modified By Organization Details Last Modified Time Details Appointments Follow Up 30 2023 08:10A M Not available Not available Not available Lab influenza virus A + B + SARS-CoV- 2 (COVID19) Ag panel, rapid IA, upper respirato ry specimen 2023 024 [facility], [address] [place], [address], 03/27/2024 13:24:19 Referral None recorded. Procedures None recorded. Surgeries None recorded. Imaging None recorded. Medication Orders prednison e 10 mg tablet 2023 024 [facility], [address] [place], [address], 03/26/2024 15:40:11 Patient TargetsNo targets recorded. Patient InstructionsNo instructions recorded. 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 Referral for D isorder of skin and/or subcutaneous tissue referral for presumed BCC on nose and rt ant ear, also rosacea Referring Physician: Arelis Michele, Family Medicine, Encounter Date: 02/11/2024 Results Created Date Observation Date Name Description Value Unit Range Abnormal Flag LastModifiedBy Organization Detail LastModifiedTime 03/27/20 24 03/27/2024 influ dominguez virus A + B + SARS- CoV-2 (COVI D19) Ag panel , rapid IA, upper respi rator y speci men Influenza A negati ve Not Available [address], [address], 03/26/2024 14:53:57 03/27/20 24 03/27/2024 influ dominguez virus A + B + SARS- CoV-2 (COVI D19) Ag panel , rapid IA, upper respi rator y speci men Influenza B negati ve Not Available [address], [address], 03/26/2024 14:53:57 03/27/20 24 03/27/2024 influ dominguez virus A + B + SARS- CoV-2 (COVI D19) Ag panel , rapid IA, upper respi rator y speci men SARS-COV-2 negati ve Not Available [address], [address], 03/26/2024 14:53:57 03/27/20 24 03/27/2024 influ dominguez virus A + B + SARS- CoV-2 (COVI D19) Ag panel , rapid IA, upper respi rator y speci men Sample sent for PCR confirmation No Not Available [address], [address], 03/26/2024 14:53:57 04/06/20 24 04/06/2024 CT imagi dea corbett Name: Iván Grover Unit #: [id number] Loc: [facility] Orderalpesh Morales er: Arelis Joya t #: [id number] Status : REG CLI Primar y [...] in the left upper lobe (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 [id number] 164 Transc ribed By: Jenna CASTILLO,Diane peña 164 This is privil eged, confid ential inform ation intend ed only for the provid er named. Any use or distri bution by any person other than this provid er is strict ly prohib ited. If you receiv e this report in error, please notify us immedi ately at [phone] and return the origin al report to us at the addres s above. Thank- you. landry [facility] [address], [place], [address] 04/06/2024 20:40:24 Result Notes None recorded. Problems Name Status Onset Date Resolution Date Notes Provider Name and Address Organization Details Recorded Time Major depression, single episode Active 201003/18/2022 - Comments only - Arelis Michele MD - /Anxiety. He is doing well currently, happy to be in his current living situation. Staying connected with family. He continues on Wellbutrin and venlafaxine which he wants to continue with. Problem Code: F32.9; Problem Code Type: ICD-10; Not Available [facility] 3 05:28:17 Essential hypertension Active 201011/07/2020 - Comments only - Arelis Michele MD - per recent reading at [facility] I feel this is remaining under reasonable control. He will continue the metoprolol, terazosin. Also on isosorbide. Problem Code: I10; Problem Code Type: ICD-10; ENRIQUE LIMON MD [address], [place], [address] , [facility] 3 15:45:28 Hyperlipidemi a Active 201005/19/2019 - Comments only - Primitivo Brown - He will continue atorvastatin. Problem Code: E78.5; Problem Code Type: ICD-10; Not Available [facility] 3 05:28:17 Generalized anxiety disorder Active 201208/08/2021 - Comments only - Arelis Michele MD - improved now that he has a warm apartment to be in for the winter. He has his name on a list for a senior apartment complex also. He will remain on the wellbutrin and venlafaxine for now. Problem Code: F41.1; Problem Code Type: ICD-10; Not Available [facility] 3 05:28:17 Postprocedura l state finding Active 2012 Problem Code: Z98.89; Problem Code Type: ICD-10; Not Available [facility] 3 05:28:18 Gastrointesti nal tract excision Active 2012 Problem Code: Z90.49; Problem Code Type: ICD-10; Not Available [facility] 3 05:28:18 History of polyp of colon Active 2018 Problem Code: Z86.010; Problem Code Type: ICD-10; Not Available [facility] 3 05:28:18 Gastroesophag eal reflux disease without esophagitis Active 201011/07/2020 - Comments only - Arelis Michele MD - discussed trying to cut back on prilosec. He will continue the AM dose but d/c the PM. He continues on ranitidine at . Problem Code: K21.9; Problem Code Type: ICD-10; MD [address], [place], [address] , [facility] 3 15:45:28 Sj??gren's syndrome Active 201308/11/2022 - Comments only - Arelis Michele MD - , Possible Sjogren's. He does have RA as well. Again he is learned to live with it for the most part. Problem Code: M35.00; Problem Code Type: ICD-10; Not Available [facility] 3 05:28:18 Overweight Active 2010 Problem Code: E66.3; Problem Code Type: ICD-10; Not Available [facility] 3 05:28:18 Insomnia Active 201008/08/2021 - Comments only - Arelis Michele MD - doing better on the trazadone, off the temazepam. Will continue to monitor. Problem Code: G47.00; Problem Code Type: ICD-10; Not Available [facility] 3 05:28:18 Osteoporotic fracture of vertebra Active 2010 Problem Code: M80.88xD; Problem Code Type: ICD-10; Not Available [facility] 3 05:28:19 Rheumatoid arthritis Active 201002/12/2023 - Comments only - Arelis Michele MD - He continues on rituxan, followed by rheumatology Problem Code: M06.9; Problem Code Type: ICD-10; MD [address], [place], [address] , [facility] 3 15:45:28 Rosacea Active 201203/18/2022 - Comments only - Arelis Michele MD - Which seems to have flared up with his accidentally using diclofenac gel instead of metronidazole gel. Explained the difference to him. 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 If he has not had improvement within 3 to 4 weeks to let us know. Problem Code: L71.9; Problem Code Type: ICD-10; MD [address], [place], [address] , [facility] 3 15:45:28 Secondary pulmonary hypertension Active 2014 Problem Code: I27.2; Problem Code Type: ICD-10; Not Available [facility] 3 05:28:19 Dyspnea Active 201407/05/2021 - Comments only - Arelis Michele MD - On exertion. In addition [...] R06.00; Problem Code Type: ICD-10; Not Available [facility] 3 05:28:19 Congenital anomaly of diaphragm Active 2014 Problem Code: Q79.1; Problem Code Type: ICD-10; MD [address], [place], [address] , [facility] 3 15:45:29 Polyneuropath y Active 2015 Problem Code: G62.9; Problem Code Type: ICD-10; Not Available [facility] 3 05:28:20 Hypothyroidis m Active 201508/11/2022 - Comments only - Arelis Michele MD - On levothyroxine . TSH ordered. Problem Code: E03.9; Problem Code Type: ICD-10; MD [address], [place], [address] , [facility] 3 15:45:28 Joint pain Active 2015 Problem Code: M25.50; Problem Code Type: ICD-10; Not Available [facility] 3 05:28:20 Adjustment disorder Active 2015 Problem Code: F43.29; Problem Code Type: ICD-10; Not Available [facility] 3 05:28:20 Osteoporosis Active 2015 Problem Code: M81.8; Problem Code Type: ICD-10; Not Available [facility] 3 05:28:20 Acute upper respiratory infection Completed 201506/09/2016 Problem Code: J06.9; Problem Code Type: ICD-10; Not Available [facility] 3 05:28:20 Bleeding from nose Active 2017 Problem Code: R04.0; Problem Code Type: ICD-10; Not Available [facility] 3 05:28:21 Disorder of pharynx Active 2017 Problem Code: J39.2; Problem Code Type: ICD-10; Not Available [facility] 3 05:28:21 Pain of left shoulder joint Active 2017 Problem Code: M25.512; Problem Code Type: ICD-10; Not Available [facility] 3 05:28:21 Chest pain Active 2017 Problem Code: R07.9; Problem Code Type: ICD-10; Not Available [facility] 3 05:28:21 Wheezing Active 2017 Problem Code: R06.2; Problem Code Type: ICD-10; Not Available [facility] 3 05:28:21 Cough Active 201707/05/2021 - Comments only - Arelis Michele MD - He has had a tickly cough now for years. Initially we thought it was related to lisinopril which was discontinued but this tickly cough never resolved. We will have him try Tessalon Perles as needed, he has used these historically. Problem Code: R05; Problem Code Type: ICD-10; Not Available [facility] 3 05:28:21 Cardiomyopath y Active 201703/18/2022 - Comments only - Arelis Michele MD - /Pulmonary hypertension. Overall he is remaining stable, continues on medications as listed in prior . . Problem Code: I42.9; Problem Code Type: ICD-10; ENRIQUE ASHLYMD [address], [place], [address] , [facility] 3 15:45:29 Melena Active 2017 Problem Code: K92.1; Problem Code Type: ICD-10; Not Available [facility] 3 05:28:22 Screening for malignant neoplasm of colon Active 201803/10/2019 - Comments only - Arelis Michele MD - colonoscopy 2018 with tubular adenoma with high grade dysplasia - repeat by early 2019 Problem Code: Z12.11; Problem Code Type: ICD-10; Not Available [facility] 3 05:28:22 Itching of skin Active 2018 Problem Code: L29.9; Problem Code Type: ICD-10; Not Available [facility] 3 05:28:23 Atheroscleros is of coronary artery without angina pectoris Active 201808/11/2022 - Comments only - Arelis Michele MD - Clinically remaining asymptomatic. He continues on atorvastatin, metoprolol, isosorbide, ASA. Problem Code: I25.10; Problem Code Type: ICD-10; MD [address], [place], [address] , [facility] 3 15:45:28 Adult health examination Active 201803/06/2021 - Comments only - Arelis Michele MD - He would like to check a PSA with the blood work. Problem Code: Z00.00; Problem Code Type: ICD-10; Not Available [facility] 3 05:28:23 Benign prostatic hyperplasia Active 201805/19/2019 - Comments only - Arelis Michele MD - with persistent nocturia - will have him increase the terazosin to 4mg qhs Problem Code: N40.0; Problem Code Type: ICD-10; MD [address], [place], [address] , [facility] 3 15:45:28 Dysphagia Active 201805/19/2019 - Comments only - Arelis Michele MD - ongoing - this may be related to Sicca syndrome. He had an ENT w/u without dx found, no upper endoscopy or barium swallow studies in our system. I will ask him about these when I call him with bloodwork results. Problem Code: R13.10; Problem Code Type: ICD-10; Not Available [facility] 3 05:28:23 Non-traumatic tendon rupture Active 2018 Problem Code: M66.871; Problem Code Type: ICD-10; Not Available [facility] 3 05:28:24 Mild intermittent asthma Active 201803/18/2022 - Comments only - Arelis Michele MD - With chronic dyspnea on exertion. He continues on Symbicort, Singulair. I did suggest he can use the ProAir prior to exercise and he will try that. Problem Code: J45.20; Problem Code Type: ICD-10; Not Available [facility] 3 05:28:24 Traumatic or non-traumatic injury Active 201903/06/2021 - Comments only - Arelis Michele MD - Right status post injury. [...] Prediabetes Active 201908/11/2022 - Comments only - Arelis Michele MD - He will be due for an A1c at the next visit. Problem Code: R73.03; Problem Code Type: ICD-10; ENRIQUE LIMON MD [address], [place], [address] , [facility] 3 15:45:29 Periapical abscess Active 2019 Problem Code: K04.7; Problem Code Type: ICD-10; Not Available [facility] 3 05:28:26 Disorder of skin and/or subcutaneous tissue Active 202003/18/2022 - Comments only - Arelis Michele MD - Right posterior ear. We will refer Wesly to Dr. Wade for further evaluation/bi opsy. Problem Code: L98.9; Problem Code Type: ICD-10; Not Available [facility] 3 05:28:26 Therapeutic drug monitoring assay Active 2020 Problem Code: Z51.81; Problem Code Type: ICD-10; Not Available [facility] 3 05:28:26 Ureteric stone Active 202007/05/2021 - Comments only - Arelis Michele MD - Currently resolved. Following with urology Problem Code: N20.1; Problem Code Type: ICD-10; Not Available [facility] 3 05:28:26 COVID-19 Active 202111/06/2021 - Comments only - Arelis Michele MD - About 2 months ago. Minimal symptoms, resolved. We did discuss the possibility of the Laura Madrigal I need to find out whether and when he may be a candidate for that given that he has had Covid infection. Problem Code: U07.1; Problem Code Type: ICD-10; Not Available [facility] 3 05:28:26 Disorder of nasal sinus Active 202107/09/2022 - Comments only - Arelis Michele MD - Along with complaint of dry mouth and dry eyes use likely indicating Sjogren's disorder. Will let rheumatology confirm diagnosis. At this point he is using eyedrops already, I suggested some saline nose spray which she will start. I did not start him on any steroid nasal sprays. Not Available [facility] 3 05:28:27 Chronic cough Active 202102/13/2023 - Comments only - Arelis Michele MD - /Dyspnea on exertion. He [...] states he did meet with pulmonology at [facility] at 1 point but they just told him symptoms were on his head . We will try and obtain that note. Problem Code: R05.3; Problem Code Type: ICD-10; MD [address], [place], [address] , [facility] 3 15:45:28 Basal cell carcinoma of skin Active 202107/09/2022 - Comments only - Arelis Michele MD - And actinic keratoses. Following [...] C44.91; Problem Code Type: ICD-10; Not Available [facility] 3 05:28:27 Benign neoplasm of colon Active 202108/11/2022 - Comments only - Arelis Michele MD - , History of. Due for colonoscopy. Problem Code: D12.6; Problem Code Type: ICD-10; MD [address], [place], [address] , [facility] 3 15:45:29 Degenerative disorder of macula Active 2022 Problem Code: H35.30; Problem Code Type: ICD-10; Not Available [facility] 3 05:28:28 Long-term current use of drug therapy Active 2022 Problem Code: Z79.69; Problem Code Type: ICD-10; Not Available [facility] 3 05:28:28 Disorder of sacrum Active 2022 Not Available [facility] 3 05:28:28 Hip pain Active 2022 Problem Code: M25.559; Problem Code Type: ICD-10; Not Available [facility] 3 05:28:28 Acute upper respiratory infection Completed 201511/21/2017 Problem Code: J06.9; Problem Code Type: ICD-10; Not Available [facility] 3 05:28:30 Blepharitis Completed 201201/28/2018 Problem Code: H01.009; Problem Code Type: ICD-10; Not Available [facility] 3 05:28:31 Cough Completed 201401/28/2018 Problem Code: R05; Problem Code Type: ICD-10; Not Available [facility] 3 05:28:31 Gastroesophag eal reflux disease Completed 201005/29/2023 Not Available [facility] 3 05:28:31 Dizziness and giddiness Completed 201501/28/2018 Problem Code: R42; Problem Code Type: ICD-10; Not Available [facility] 3 05:28:32 Cellulitis Completed 201606/03/2017 Problem Code: L03.119; Problem Code Type: ICD-10; Not Available [facility] 3 05:28:32 Osteopenia Completed 201005/29/2023 Not Available [facility] 3 05:28:32 Effusion of joint Completed 201401/28/2018 Problem Code: M25.40; Problem Code Type: ICD-10; Not Available [facility] 3 05:28:33 Acute bronchitis Completed 201409/25/2016 Problem Code: J20.9; Problem Code Type: ICD-10; Not Available [facility] 3 05:28:33 Hypertensive disorder Completed 201005/29/2023 Not Available [facility] 3 05:28:34 Hernia of anterior abdominal wall Completed 201205/29/2023 Not Available [facility] 3 05:28:35 Bursitis of olecranon of left elbow Completed 201601/28/2018 Problem Code: M70.22; Problem Code Type: ICD-10; Not Available [facility] 3 05:28:36 Pre-surgery evaluation Completed 201606/03/2017 Problem Code: Z01.818; Problem Code Type: ICD-10; Not Available [facility] 3 05:28:36 Acute pharyngitis Completed 201701/28/2018 Problem Code: J02.9; Problem Code Type: ICD-10; Not Available [facility] 3 05:28:37 Colonoscopy Completed 201205/29/2023 Not Available [facility] 3 05:28:38 Specialized medical examination Completed 201205/29/2023 Problem Code: Z01.89; Problem Code Type: ICD-10; Not Available [facility] 3 05:28:39 Chronic maxillary sinusitis Completed 201601/28/2018 Problem Code: J32.0; Problem Code Type: ICD-10; Not Available [facility] 3 05:28:40 Pathological fracture of vertebra Completed 201005/29/2023 Not Available [facility] 3 05:28:40 Hypothyroidis m Completed 201205/29/2023 ENRIQUE LIMON MD [address], [place], [address] , [facility] 3 15:45:28 Adult health examination Completed 201601/28/2018 Problem Code: Z00.00; Problem Code Type: ICD-10; Not Available [facility] 3 05:28:41 Osteoporosis Completed 201005/29/2023 Not Available [facility] 3 05:28:43 Increased frequency of urination Completed 201601/28/2018 Problem Code: R35.0; Problem Code Type: ICD-10; Not Available [facility] 3 05:28:44 Pulmonary hypertension Completed 201405/29/2023 Not Available [facility] 3 05:28:45 Conjunctiviti s Completed 201201/28/2018 Problem Code: H10.89; Problem Code Type: ICD-10; Not Available [facility] 3 05:28:46 Bone density finding Completed 201009/25/2016 Problem Code: M85.80; Problem Code Type: ICD-10; Not Available [facility] 3 05:28:46 Rosacea conjunctiviti s Completed 201205/29/2023 Not Available [facility] 3 05:28:47 Anxiety state Completed 201205/29/2023 Not Available [facility] 3 05:28:48 Obstructed labor due to shoulder dystocia Completed 201501/16/2016 Problem Code: O66.0; Problem Code Type: ICD-10; Not Available [facility] 3 05:28:49 Depressive disorder Completed 201005/29/2023 Not Available [facility] 3 05:28:51 Pneumonia Completed 201701/28/2018 Problem Code: J18.9; Problem Code Type: ICD-10; Not Available [facility] 3 05:28:52 Pain of left shoulder joint Completed 201501/28/2018 Problem Code: M25.512; Problem Code Type: ICD-10; Not Available [facility] 3 05:28:54 History of SARS-CoV-2 Active [address], [place], [address] , [facility]. 4 11:04:33 Benign prostatic hyperplasia with outflow obstruction Active [address], [place], [address] , [facility] 4 10:07:46 CT of chest abnormal Active 2023 nodular infiltrate 04/25 - repeat in 3 months MD [address], [place], [address] , [facility] 4 20:40:16 Notes:*Problem Name: Chronic [...] Name and Address Organization Details Recorded Time 82992 lisinopri l medicatio n cough moderate Not available 07/12/20232011 15055 RxNorm dry cough Aller gyCod e: '3140 76'; Aller gyNam e: 'XIOMY NOPRI L'; Aller gyCon ceptT ype: 'RX Norm' ; Aller gyRea ction : 'dry cough '; Not Available [facility] 3 16:21:49 Medications Name Sig Start Date [...] TWO TABLETS BY MOUTH EVERY MORNING FOR 5 DAYS , TAKE WITH FOOD active Not Available Not Available No t Available isosorbid e mononitra te ER 30 [...] sulfate HFA 90 mcg/actua tion aerosol inhaler INHALE 2 PUFFS BY MOUTH 4 TIMES DAILY NEEDED FOR SHORTNES S OF BREATH OR WHEEZING active Not Available Not Available No t [...] oral route as needed. active RX by [facility] pulmonol ogy Not Available Not Available [...] Not Available Rituxan every [address] [facility]. Labs 1-2 weeks prior to infusion active [...] on route as needed. active Rx by [facility] pulmonol ogy Not Available Not Available [...] 118 mm[Hg] 68 mm[Hg] Siobhan amin LPN [facility] 4 14:43:37 Social History Question Answer Notes LastModified by Organizat ion Details LastModified Time Tobacco Smoking Status Never Smoker YAZAN Beaulieu, [facility] 11/19/2023 11:03:00 What Was The Date Of Your Most Recent Tobacco Screening? 11/19/2023 [email or web address] Information not available 11/19/2023 Has Tobacco Cessation Counseling Been Provided? No [email or web address] Information not available 11/19/2023 Do You Or Have You Ever Used Any Other Forms Of Tobacco Or Nicotine? No [email or web address] Information not available 11/19/2023 Sex: Male Functional [...] preservative free, adsorbed 06/14/2020 completed Not Available [facility] 07/12/2023 04:58:16 Tdap 05/08/2012 completed Not Available [facility] 04:58:16 Pneumococcal conjugate PCV 13 06/26/2016 completed Not Available [facility] 07/12/2023 04:58:17 Influenza, high-dose, trivalent, PF 06/04/2018 completed Not Available [facility] 07/12/2023 04:58:18 Influenza, split virus, trivalent, preservative 05/23/2016 completed Not Available [facility] 07/12/2023 04:58:18 Influenza, split virus, trivalent, preservative 05/26/2015 completed Not Available [facility] 07/12/2023 04:58:19 Influenza, high-dose, quadrivalent, PF 06/30/2020 completed Not Available [facility] 07/12/2023 04:58:20 Influenza, high-dose, quadrivalent, PF 06/30/2021 completed Not Available [facility] 07/12/2023 04:58:21 Influenza, high-dose, quadrivalent, PF 07/06/2022 completed Not Available [facility] 07/12/2023 04:58:21 COVID-19, mRNA, LNP-S, PF, 100 mcg/0.5mL dose or 50 mcg/0.25mL dose 11/07/2020 completed Not Available [facility] 07/12/2023 04:58:21 COVID-19, mRNA, LNP-S, PF, 100 mcg/0.5mL dose or 50 mcg/0.25mL dose 12/05/2020 completed Not Available [facility] 07/12/2023 04:58:22 COVID-19, mRNA, LNP-S, PF, 100 mcg/0.5mL dose or 50 mcg/0.25mL dose 12/26/2021 completed Not Available [facility] 07/12/2023 04:58:22 COVID-19, mRNA, LNP-S, PF, 100 mcg/0.5mL dose or 50 mcg/0.25mL dose 06/30/2021 completed Not Available [facility] 07/12/2023 04:58:22 COVID-19, mRNA, LNP-S, bivalent, PF, 30 mcg/0.3 mL dose 07/06/2022 completed Not Available [facility] 07/12/20 04:58:23 pneumococcal polysaccharide PPV23 09/07/2014 completed Not Available [facility] 2022 04:58:23 influenza, unspecified formulation 05/20/2014 completed Not Available [facility] 07/12/2023 04:58:24 influenza, unspecified formulation 06/05/2017 completed Not Available [facility] 07/12/2023 04:58:24 influenza, unspecified formulation 07/02/2019 completed Not Available [facility] [facility] 07/12/2023 04:58:26 Influenza, high-dose, quadrivalent, PF 05/14/2023 completed Not Available [facility] 09/13/2023 05:31:41 COVID-19, mRNA, LNP-S, PF, jonathan-sucrose, 30 mcg/0.3 mL 08/21/2023 completed Perico Quiroz MA [facility], [place] - [facility]. 08/21/2023 10:07:33 Past Encounters Encounter ID Performer Location Encounter Start Date Encounter Closed Date Diagnosis/Indication Diagnosis SNOMED-CT Code [id number] HUANG VARGAS, [facility] [address] 03/26/2024 14:15:57 03/26/2024 15:32:32 Cough [id number] Health Concerns Section Related Observation LastModified by Organization Detai ls LastModified Time None Recorded Concern Status LastModified by Organization Details LastModified Time None Recorded Payers Encounter Date Sequence Insurance Name Policy Number Policy Cervantes Covered Member ID Cervantes Member ID Guarantor Name 03/26/2024 1 [employer] (MEDICARE REPLACEMENT/ ADVANTAGE - PPO) Wesly Ybarra [id number] Wesly Ybarra Notes Date Note Type Note Provider Name and Address Organization Details Recorded Time 03/26/2024 text/html HPI Notes: Increase in cough approx 8d ago on Sat03/18/24. Has been using his nebulizer bid, nocturnal O2, O2 sat during the day staying in the 92-94% range. He took 3 doses of his doxycycline Rx from Dr Michele late last week, then stopped. He responded well to long prednisone taper last time he had pneumonia. He has CXR scheduled 03/31 for pulmonology, received scheduling call for PFT, also for pulmonology, but has not scheduled yet. Sees Pulmonology 05/27/24. 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 HUANG GRIMES, [employer]- [address], [place], [address], [facility] - [facility], [facility]. 03/26/2024 15:40:53
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
--- OUTSIDE RECORDS SUMMARY | 2024-04-24 21:04 | XMS_ITS | Data Portability ---
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 Plan of Treatment Reminders Order Date Submit Date Provider Last Modified By Organization Details Last Modified Time Details Appointments Follow Up 30 2023 08:10A M Not available Not available Not available Lab BMP, serum or plasma 2023 024 [email or web address] [facility] (Registration ), [address] [place] [address] [place], [address], 01/17/2024 07:56:50 BMP, serum or plasma 2023 024 [facility] ([facility]), [address] [place] [address] [place], [address], 04/14/2024 13:19:49 PTH (parathyr oid hormone), intact, serum or plasma 2023 024 [email or web address] [facility] ([facility]), [address] [place] [address] [place], [address], 04/14/2024 13:19:50 TSH, serum, reflex free T4 2023 024 [email or web address] [facility] ([facility]), [address] [place] [address] [place], [address], 04/14/2024 13:19:50 influenza virus A + B + SARS-CoV- 2 (COVID19) Ag panel, rapid IA, upper respirato ry specimen 2023 024 [facility], [address] [place], [address], 03/27/2024 13:24:19 Referral dermatolo gist referral 2023 024 [email or web address] Sullivan MD, [address], [place], [address], 02/12/2024 07:45:23 Procedures None recorded. Surgeries None recorded. Imaging XR, chest, 2 view - Persisten t cough and shortness of breath after diagnosis of pneumonia on 12/29 [facility] please compare x-rays 2023 024 [email or web address] (Radiology), [address] [place] [address] Dr, [place], [address], 02/06/2024 12:04:57 Medication Orders prednison e 20 mg tablet 2023 024 [email or web address] [facility], [address] [place], [address], 02/11/2024 09:32:01 prednison e 10 mg tablet 2023 024 [email or web address] [facility], [address] [place], [address], 03/26/2024 14:46:00 metronida zole 1 % topical cream 2023 024 MACK [facility], [address] [place], [address], 03/26/2024 14:45:44 doxycycli ne monohydra te 100 mg tablet 2023 024 MACK [facility], [address] [place], [address], 02/11/2024 17:13:04 prednison e 10 mg tablet 2023 024 MACK [facility], [address] [place], [address], 03/26/2024 14:46:05 tamsulosi n 0.4 mg capsule 2023 024 MACK [facility], [address] [place], [address], 02/11/2024 17:13:23 prednison e 10 mg tablet 2023 024 MACK [facility], [address] [place], [address], 03/26/2024 15:40:[address] 10 mg tablet 2023 024 [facility] [address] [place], [address], 04/01/2024 16:20:08 Patient TargetsNo targets recorded. Patient Instructions Encounter Date Encounter Id Patient Instructions Last Modified By Organization Details Last Modified Time 01/08/2024 [id number] Wesly: start prednisone today 40 mg a day for 4 days take with food. Use your albuterol nebulizer every 6 hours over the next 7 days get your chest x-ray at 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 Referral for D isorder of skin and/or subcutaneous tissue referral for presumed BCC on nose and rt ant ear, also rosacea Referring Physician: Arelis Meneses, Family Medicine, Encounter Date: 02/11/2024 Results Created Date Observation Date Name Description Value Unit Range Abnormal Flag LastModifiedBy Organization Detail LastModifiedTime 12/28/19 24 12/29/2023 URINE CULTU RE urine culture Not Available [address] [place], [address] 12/29/2023 10:33:53 12/28/19 24 12/29/2023 URINE CULTU RE urine culture colon ies/m L Not Available [address] [place], [address] 12/29/2023 10:33:53 12/28/19 24 12/30/2023 URINE CULTU RE urine culture Not Available [address] [place], [address] 12/30/2023 08:21:09 12/28/19 24 12/30/2023 URINE CULTU RE urine culture colon ies/m L Not Available [address] [place], [address] 12/30/2023 08:21:09 12/30/19 24 12/30/2023 COMPL ETE BLOOD COUNT W/DIF F WBC 11.28 10_3/ uL 4.4-10 .8 high Not Available [address] [place], [address] 12/30/2023 15:40:28 12/30/19 24 12/30/2023 COMPL ETE BLOOD COUNT W/DIF F RBC 5.29 10_6/ uL 4.36-5 .78 normal Not Available [address] [place], [address] 12/30/2023 15:40:28 12/30/19 24 12/30/2023 COMPL ETE BLOOD COUNT W/DIF F HGB 15.4 g/dL 13.5-1 7.5 normal Not Available [address] [place], [address] 12/30/2023 15:40:28 12/30/19 24 12/30/2023 COMPL ETE BLOOD COUNT W/DIF F HCT 48.0 % 40.0-5 0.0 normal Not Available [address] [place], [address] 12/30/2023 15:40:28 12/30/19 24 12/30/2023 COMPL ETE BLOOD COUNT W/DIF F MCV 91 fL 80-95 normal Not Available [facility]enton baer [address] [place], [address] 12/30/2023 15:40:28 12/30/19 24 12/30/2023 COMPL ETE BLOOD COUNT W/DIF F MCH 29.1 pg 27.0-3 3.0 normal Not Available [address] [place], [address] 12/30/2023 15:40:28 12/30/19 24 12/30/2023 COMPL ETE BLOOD COUNT W/DIF F MCHC 32.1 % 32.0-3 6.0 normal Not Available [address] [place], [address] 12/30/2023 15:40:28 12/30/19 24 12/30/2023 COMPL ETE BLOOD COUNT W/DIF F RDW 13.9 % 11.8-1 4.1 normal Not Available [address] [place], [address] 12/30/2023 15:40:28 12/30/19 24 12/30/2023 COMPL ETE BLOOD COUNT W/DIF F platelet count 193 10_3/ uL 130-40 0 normal Not Available [address] [place], [address] 12/30/2023 15:40:28 12/30/19 24 12/30/2023 COMPL ETE BLOOD COUNT W/DIF F MPV 9.8 fL 8.0-11 .0 normal Not Available [address] [place], [address] 12/30/2023 15:40:28 12/30/19 24 12/30/2023 COMPL ETE BLOOD COUNT W/DIF F neutrophils % 76.0 Not Available [address] [place], [address] 12/30/2023 15:40:28 12/30/19 24 12/30/2023 COMPL ETE BLOOD COUNT W/DIF F lymphocytes % 12.8 Not Available [address] [place], [address] 12/30/2023 15:40:28 12/30/19 24 12/30/2023 COMPL ETE BLOOD COUNT W/DIF F monocytes % 5.4 Not Available [address] [place], [address] 12/30/2023 15:40:28 12/30/19 24 12/30/2023 COMPL ETE BLOOD COUNT W/DIF F eosinophils % 5.0 Not Available [address] [place], [address] 12/30/2023 15:40:28 12/30/19 24 12/30/2023 COMPL ETE BLOOD COUNT W/DIF F basophils % 0.4 Not Available [address] [place], [address] 12/30/2023 15:40:28 12/30/19 24 12/30/2023 COMPL ETE BLOOD COUNT W/DIF F immature grans % 0.4 Not Available [address] [place], [address] 12/30/2023 15:40:28 12/30/19 24 12/30/2023 COMPL ETE BLOOD COUNT W/DIF F nucleated RBC 0.0 % 0.0-0. 3 normal Not Available [address] [place], [address] 12/30/2023 15:40:28 12/30/19 24 12/30/2023 COMPL ETE BLOOD COUNT W/DIF F absolute neutrophil count 8.57 10_3/ uL 1.2-6. 7 high Not Available [address] [place], [address] 12/30/2023 15:40:28 12/30/19 24 12/30/2023 COMPL ETE BLOOD COUNT W/DIF F absolute lymphocyte count 1.44 10_3/ uL 1.2-3. 4 normal Not Available [address] [place], [address] 12/30/2023 15:40:28 12/30/19 24 12/30/2023 COMPL ETE BLOOD COUNT W/DIF F absolute monocyte count 0.61 10_3/ uL 0.1-0. 8 normal Not Available [address], [address] 12/30/2023 15:40:28 12/30/19 24 12/30/2023 COMPL ETE BLOOD COUNT W/DIF F absolute eosinophil count 0.56 10_3/ uL 0.0-0. 7 normal Not Available [address] [place], [address] 12/30/2023 15:40:28 12/30/19 24 12/30/2023 COMPL ETE BLOOD COUNT W/DIF F absolute basophil count 0.05 10_3/ uL 0.0-0. 2 normal Not Available [address] [place], [address] 12/30/2023 15:40:28 12/30/19 24 12/30/2023 COMPR EHENS LAYO METAB OLIC PANEL calcium 11.6 mg/dL 8.5-10 .1 high Not Available [address], [address] 12/30/2023 15:49:36 12/30/19 24 12/30/2023 COMPR EHENS LAYO METAB OLIC PANEL glucose 129 mg/dL 74-106 high Not Available [address] [place], [address] 12/30/2023 15:49:36 12/30/19 24 12/30/2023 COMPR EHENS LAYO METAB OLIC PANEL BUN 10 mg/dL 7-18 normal Not Available [address] [place], [address] 12/30/2023 15:49:36 12/30/19 24 12/30/2023 COMPR EHENS LAYO METAB OLIC PANEL creatinine 1.3 mg/dL 0.70-1 .30 normal Not Available [address], [address] 12/30/2023 15:49:36 12/30/19 24 12/30/2023 COMPR EHENS LAYO METAB OLIC PANEL estimated GFR 57.29 mL/min /1.73m 2 Not Available [address] [place], [address] 12/30/2023 15:49:36 12/30/19 24 12/30/2023 COMPR EHENS LAYO METAB OLIC PANEL total protein 6.4 g/dL 6.4-8. 2 normal Not Available [address], [address] 12/30/2023 15:49:36 12/30/19 24 12/30/2023 COMPR EHENS LAYO METAB OLIC PANEL albumin 3.0 g/dL 3.4-5. 0 low Not Available [address] [place], [address] 12/30/2023 15:49:36 12/30/19 24 12/30/2023 COMPR EHENS LAYO METAB OLIC PANEL bilirubin, total 0.4 mg/dL 0.2-1. 0 normal Not Available [address] [place], [address] 12/30/2023 15:49:36 12/30/19 24 12/30/2023 COMPR EHENS LAYO METAB OLIC PANEL alk phos 95 U/L 46-116 normal Not Available [address] [place], [address] 12/30/2023 15:49:36 12/30/19 24 12/30/2023 COMPR EHENS LAYO METAB OLIC PANEL sodium 143 mmol/ L 136-14 5 normal Not Available [address], [address] 12/30/2023 15:49:36 12/30/19 24 12/30/2023 COMPR EHENS LAYO METAB OLIC PANEL potassium 3.3 mmol/ L 3.5-5. 1 low Not Available [address] [place], [address] 12/30/2023 15:49:36 12/30/19 24 12/30/2023 COMPR EHENS LAYO METAB OLIC PANEL chloride 102 mmol/ L 98-107 normal Not Available [address], [address] 12/30/2023 15:49:36 12/30/19 24 12/30/2023 COMPR EHENS LAYO METAB OLIC PANEL CO2 34.8 mmol/ L 21.0-3 2.0 high Not Available [address], [address] 12/30/2023 15:49:36 12/30/19 24 12/30/2023 COMPR EHENS LAYO METAB OLIC PANEL anion gap 6.2 mmol/ L 3-11 normal Not Available [address] [place], [address] 12/30/2023 15:49:36 12/30/19 24 12/30/2023 COMPR EHENS LAYO METAB OLIC PANEL AST 17 U/L 15-37 normal Not Available [address] [place], [address] 12/30/2023 15:49:36 12/30/19 24 12/30/2023 COMPR EHENS LAYO METAB OLIC PANEL ALT 34 U/L 16-63 normal Not Available [address] [place], [address] 12/30/2023 15:49:36 01/08/20 24 01/08/2024 VENOU S BLOOD GAS pH (venous) 7.42 7.31-7 .41 high Not Available [address], [address] 01/08/2024 10:19:26 01/08/20 24 01/08/2024 VENOU S BLOOD GAS pCO2 (venous) 54 mmHg 41-51 high Not Available [address] [place], [address] 01/08/2024 10:19:26 01/08/20 24 01/08/2024 VENOU S BLOOD GAS pO2 (venous) 23 mmHg Not Available [address] [place], [address] 01/08/2024 10:19:26 01/08/20 24 01/08/2024 VENOU S BLOOD GAS TCO2 (venous) 31 mmol/ L 24-29 high Not Available [address], [address] 01/08/2024 10:19:26 01/08/20 24 01/08/2024 VENOU S BLOOD GAS HCO3 (venous) 35 mmol/ L 23-28 high Not Available [address], [address] 01/08/2024 10:19:26 01/08/20 24 01/08/2024 VENOU S BLOOD GAS BE (venous) 10 mmol/ L -2-3 high Not Available [address], [address] 01/08/2024 10:19:26 01/08/20 24 01/08/2024 VENOU S BLOOD GAS O2 sat (venous) 37 % Not Available [address] [place], [address] 01/08/2024 10:19:26 01/08/20 24 01/08/2024 COMPL ETE BLOOD COUNT W/DIF F WBC 9.90 10_3/ uL 4.4-10 .8 normal Not Available [address] [place], [address] 01/08/2024 10:30:29 01/08/20 24 01/08/2024 COMPL ETE BLOOD COUNT W/DIF F RBC 5.18 10_6/ uL 4.36-5 .78 normal Not Available [address] [place], [address] 01/08/2024 10:30:29 01/08/20 24 01/08/2024 COMPL ETE BLOOD COUNT W/DIF F HGB 14.9 g/dL 13.5-1 7.5 normal Not Available [address] [place], [address] 01/08/2024 10:30:29 01/08/20 24 01/08/2024 COMPL ETE BLOOD COUNT W/DIF F HCT 46.3 % 40.0-5 0.0 normal Not Available [address] [place], [address] 01/08/2024 10:30:29 01/08/20 24 01/08/2024 COMPL ETE BLOOD COUNT W/DIF F MCV 89 fL 80-95 normal Not Available [address] [place], [address] 01/08/2024 10:30:29 01/08/20 24 01/08/2024 COMPL ETE BLOOD COUNT W/DIF F MCH 28.8 pg 27.0-3 3.0 normal Not Available [address] [place], [address] 01/08/2024 10:30:29 01/08/20 24 01/08/2024 COMPL ETE BLOOD COUNT W/DIF F MCHC 32.2 % 32.0-3 6.0 normal Not Available [address] [place], [address] 01/08/2024 10:30:29 01/08/20 24 01/08/2024 COMPL ETE BLOOD COUNT W/DIF F RDW 13.9 % 11.8-1 4.1 normal Not Available [address] [place], [address] 01/08/2024 10:30:29 01/08/20 24 01/08/2024 COMPL ETE BLOOD COUNT W/DIF F platelet count 215 10_3/ uL 130-40 0 normal Not Available [address] [place], [address] 01/08/2024 10:30:29 01/08/20 24 01/08/2024 COMPL ETE BLOOD COUNT W/DIF F MPV 10.0 fL 8.0-11 .0 normal Not Available [address] [place], [address] 01/08/2024 10:30:29 01/08/20 24 01/08/2024 COMPL ETE BLOOD COUNT W/DIF F neutrophils % 60.1 % Not Available [address] [place], [address] 01/08/2024 10:30:29 01/08/20 24 01/08/2024 COMPL ETE BLOOD COUNT W/DIF F lymphocytes % 24.6 % Not Available [address] [place], [address] 01/08/2024 10:30:29 01/08/20 24 01/08/2024 COMPL ETE BLOOD COUNT W/DIF F monocytes % 8.3 % Not Available Maria De Jesus [email or web address] [address] [place], [address] 01/08/2024 10:30:29 01/08/20 24 01/08/2024 COMPL ETE BLOOD COUNT W/DIF F eosinophils % 5.9 % Not Available [address] [place], [address] 01/08/2024 10:30:29 01/08/20 24 01/08/2024 COMPL ETE BLOOD COUNT W/DIF F basophils % 0.5 % [facility] [address] [place], [address] 01/08/2024 10:30:29 01/08/20 24 01/08/2024 COMPL ETE BLOOD COUNT W/DIF F immature grans % 0.6 % Not Available [address] [place], [address] 01/08/2024 10:30:29 01/08/20 24 01/08/2024 COMPL ETE BLOOD COUNT W/DIF F nucleated RBC 0.0 % 0.0-0. 3 normal Not Available [address] [place], [address] 01/08/2024 10:30:29 01/08/20 24 01/08/2024 COMPL ETE BLOOD COUNT W/DIF F absolute neutrophil count 5.95 10_3/ uL 1.2-6. 7 normal Not Available [address] [place], [address] 01/08/2024 10:30:29 01/08/20 24 01/08/2024 COMPL ETE BLOOD COUNT W/DIF F absolute lymphocyte count 2.44 10_3/ uL 1.2-3. 4 normal Not Available [address] [place], [address] 01/08/2024 10:30:29 01/08/20 24 01/08/2024 COMPL ETE BLOOD COUNT W/DIF F absolute monocyte count 0.82 10_3/ uL 0.1-0. 8 high Not Available [address] [place], [address] 01/08/2024 10:30:29 01/08/20 24 01/08/2024 COMPL ETE BLOOD COUNT W/DIF F absolute eosinophil count 0.58 10_3/ uL 0.0-0. 7 normal Not Available [address], [address] 01/08/2024 10:30:29 01/08/20 24 01/08/2024 COMPL ETE BLOOD COUNT W/DIF F absolute basophil count 0.05 10_3/ uL 0.0-0. 2 normal Not Available [address], [address] 01/08/2024 10:30:29 01/08/20 24 01/08/2024 BASIC METAB OLIC PANEL calcium 13.5 mg/dL 8.5-10 .1 panic high Not Available [address], [address] 01/08/2024 10:50:33 01/08/20 24 01/08/2024 BASIC METAB OLIC PANEL glucose 99 mg/dL 74-106 normal Not Available [address] [place], [address] 01/08/2024 10:50:33 01/08/20 24 01/08/2024 BASIC METAB OLIC PANEL BUN 22 mg/dL 7-18 high Not Available [facility] [address] [place], [address] 01/08/2024 10:50:33 01/08/20 24 01/08/2024 BASIC METAB OLIC PANEL creatinine 1.8 mg/dL 0.70-1 .30 high Not Available [address], [address] 01/08/2024 10:50:33 01/08/20 24 01/08/2024 BASIC METAB OLIC PANEL estimated GFR 38.77 mL/min /1.73m 2 Not Available [address], [address] 01/08/2024 10:50:33 01/08/20 24 01/08/2024 BASIC METAB OLIC PANEL sodium 142 mmol/ L 136-14 5 normal Not Available [address], [address] 01/08/2024 10:50:33 01/08/20 24 01/08/2024 BASIC METAB OLIC PANEL potassium 3.8 mmol/ L 3.5-5. 1 normal Not Available [address], [address] 01/08/2024 10:50:33 01/08/20 24 01/08/2024 BASIC METAB OLIC PANEL chloride 104 mmol/ L 98-107 normal Not Available [address], [address] 01/08/2024 10:50:33 01/08/20 24 01/08/2024 BASIC METAB OLIC PANEL CO2 34.1 mmol/ L 21.0-3 2.0 high Not Available [address], [address] 01/08/2024 10:50:33 01/08/20 24 01/08/2024 BASIC METAB OLIC PANEL anion gap 3.9 mmol/ L 3-11 normal Not Available [address], [address] 01/08/2024 10:50:33 01/08/20 24 01/08/2024 NT-AK OBNP nt-probnp 35 pg/mL <300 Not Available [address] [place], [address] 01/08/2024 10:50:33 01/08/20 24 01/08/2024 ALBUM IN albumin 2.9 g/dL 3.4-5. 0 low Not Available [address], [address] 01/08/2024 11:59:56 01/08/20 24 01/08/2024 CALCI UM calcium 13.5 mg/dL 8.5-10 .1 panic high Not Available [address], [address] 01/08/2024 12:01:55 01/10/20 24 01/10/2024 BASIC METAB OLIC PANEL calcium 12.7 mg/dL 8.5-10 .1 panic high Not Available [address], [address] 01/10/2024 19:20:18 01/10/2001/10/2024 BASIC METAB OLIC PANEL glucose 129 mg/dL 74-106 high Not Available [address] [place], [address] 01/10/2024 19:20:18 01/10/20 24 01/10/2024 BASIC METAB OLIC PANEL BUN 17 mg/dL 7-18 normal Not Available [address] [place], [address] 01/10/2024 19:20:18 01/10/2001/10/2024 BASIC METAB OLIC PANEL creatinine 1.5 mg/dL 0.70-1 .30 high Not Available [address], [address] 01/10/2024 19:20:18 01/10/2001/10/2024 BASIC METAB OLIC PANEL estimated GFR 48.25 mL/min /1.73m 2 Not Available [address], [address] 01/10/2024 19:20:18 01/10/2001/10/2024 BASIC METAB OLIC PANEL sodium 147 mmol/ L 136-14 5 high Not Available [address], [address] 01/10/2024 19:20:18 01/10/2001/10/2024 BASIC METAB OLIC PANEL potassium 4.2 mmol/ L 3.5-5. 1 normal Not Available [address], [address] 01/10/2024 19:20:18 01/10/2001/10/2024 BASIC METAB OLIC PANEL chloride 109 mmol/ L 98-107 high Not Available [address], [address] 01/10/2024 19:20:18 01/10/2001/10/2024 BASIC METAB OLIC PANEL CO2 33.1 mmol/ L 21.0-3 2.0 high Not Available [address] [place], [address] 01/10/2024 19:20:18 01/10/20 24 01/10/2024 BASIC METAB OLIC PANEL anion gap 4.9 mmol/ L 3-11 normal Not Available [address] [place], [address] 01/10/2024 19:20:18 01/16/20 24 01/16/2024 BASIC METAB OLIC PANEL calcium 10.0 mg/dL 8.5-10 .1 normal Not Available [address], [address] 01/16/2024 11:29:21 01/16/20 24 01/16/2024 BASIC METAB OLIC PANEL glucose 178 mg/dL 74-106 high Not Available [facility] [address] [place], [address] 01/16/2024 11:29:21 01/16/20 24 01/16/2024 BASIC METAB OLIC PANEL BUN 13 mg/dL 7-18 normal Not Available [address] [place], [address] 01/16/2024 11:29:21 01/16/20 24 01/16/2024 BASIC METAB OLIC PANEL creatinine 1.3 mg/dL 0.70-1 .30 normal Not Available [address], [address] 01/16/2024 11:29:21 01/16/20 24 01/16/2024 BASIC METAB OLIC PANEL estimated GFR 57.29 mL/min /1.73m 2 Not Available [address] [place], [address] 01/16/2024 11:29:21 01/16/20 24 01/16/2024 BASIC METAB OLIC PANEL sodium 141 mmol/ L 136-14 5 normal Not Available [address], [address] 01/16/2024 11:29:21 01/16/20 24 01/16/2024 BASIC METAB OLIC PANEL potassium 3.8 mmol/ L 3.5-5. 1 normal Not Available [address] [place], [address] 01/16/2024 11:29:21 01/16/20 24 01/16/2024 BASIC METAB OLIC PANEL chloride 105 mmol/ L 98-107 normal Not Available [address] [place], [address] 01/16/2024 11:29:21 01/16/20 24 01/16/2024 BASIC METAB OLIC PANEL CO2 29.1 mmol/ L 21.0-3 2.0 normal Not Available [address] [place], [address] 01/16/2024 11:29:21 01/16/20 24 01/16/2024 BASIC METAB OLIC PANEL anion gap 6.9 mmol/ L 3-11 normal Not Available [address] [place], [address] 01/16/2024 11:29:21 01/16/20 24 01/16/2024 IONIZ ED CALCI UM ionized calcium 1.32 mmol/ L 1.14-1 .35 Not Available [address] [place], [address] 01/17/2024 08:46:54 01/16/20 24 01/16/2024 BARRIE SCANLON,IN TACT parathyroid hormone,inta ct 11 pg/mL 19-88 abnormal Not Available [address] [place], [address] 01/17/2024 08:46:55 03/27/20 24 03/27/2024 influ dominguez virus A + B + SARS- CoV-2 (COVI D19) Ag panel , rapid IA, upper respi rator y speci men Influenza A negati ve Not Available [address], [address], 03/26/2024 14:53:57 03/27/20 24 03/27/2024 influ dominguez virus A + B + SARS- CoV-2 (COVI D19) Ag panel , rapid IA, upper respi rator y speci men Influenza B negati ve Not Available [address], [address], 03/26/2024 14:53:57 03/27/20 24 03/27/2024 influ dominguez virus A + B + SARS- CoV-2 (COVI D19) Ag panel , rapid IA, upper respi rator y speci men SARS-COV-2 negati ve Not Available [facility] [address] [place], [address], 03/26/2024 14:53:57 03/27/20 24 03/27/2024 influ dominguez virus A + B + SARS- CoV-2 (COVI D19) Ag panel , rapid IA, upper respi rator y speci men Sample sent for PCR confirmation No Not Available [facility] [address] [place], [address], 03/26/2024 14:53:57 12/28/19 24 12/28/2023 vrad femi corbett Name: Jj Iván biggs Unit #: [id number] Loc: [facility] er: Denise t #: [id number] Status : REG CLI Primar y [...] right hemidi aphrag m. Dictat ed and Anaen ticate d by: Ady lópez MD. Orderi ng:Dawn Montanez MD Access ion#=[id number] Ordere d By: CC: ------ ------ ------ ------ ------ ------ ------ ------ ------ ------ ------ ------ ---- Dictat ed By: Report s vrad [id number] Transc ribed By: Abel Merge 1215 This is privil eged, confid ential inform ation intend ed only for the provid er named. Any use or distri bution by any person other than this provid er is strict ly prohib ited. If you receiv e this report in error, please notify us immedi giuseppely at [phone] and return the origin al report to us at the addres s above. Thank- you. [facility] [address], [place], [address] 01/05/2024 07:04:06 12/28/19 24 12/28/2023 x-ray imagi ng repor t [place] Name: Jj biggsIván astudillo M Unit #: [id number] Loc: [facility] Provid er: April [place] t #: [id number] Status : REG CLI Primar [...] COMPAR BJ: CR XR CHEST 2V PA KADEN L from [address] CHEST WO [...] 142 Transc ribed By: Jenna CASTILLO,Diane mariana 1419 This is privil eged, confid ential inform ation intend ed only for the provid er named. Any use or distri bution by any person other than this provid er is strict ly prohib ited. If you receiv e this report in error, please notify us immedi elenita at [phone] and return the origin al report to us at the addres s above. Thank- you. landry [address] [place], [address] 01/05/2024 07:04:06 12/30/19 24 12/30/2023 x-ray imagi ng repor t Patien t Name: Jj biggs,Iván astudillo M Unit #: [id number] Loc: ER Orderi ng Provid er: Mc Avalos M.D. Accoun t #: [id number] Status : REG ER Primar y Care Located Within [facility] er: Thomas Hannah amin M.D. Date of Exam : Sex: M [...] There are no effusi ons. No pulmon danna edema. IMPRES WILBERT: Unchan ged from 2023. [...] error, please notify us immedi ately at [phone] and return the origin al report to us at the addres s above. Thank- you. landry [address], [place], [address] 01/05/2024 07:04:06 01/08/20 24 01/08/2024 XR, chest , 2 view Patien t Name: Iván Grover Unit #: [id number] Loc: ER Orderi ng Provid er: April Marion Accanand t #: [id number] Status : REG ER Primar [...] Normal size. Aorta: Not dilate d. PULMON DANNA VASCUL ATURE: Normal . LUNGS: Low lung volume s. Linear scarri ng at left lung base. No focal area of consol idatio n or pulmon danna edema. PLEURA L SPACE: No pleura l [...] [id number] Transc ribed By: Jatin Mayen 105 This is privil eged, confid ential inform ation intend ed only for the provid er named. Any use or distri bution by any person other than this provid er is strict ly prohib ited. If you receiv e this report in error, please notify us immedi elenita at and return the origin al report to us at the addres s above. Thank- you. 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 0805-0 010: Total DLP = 0.00 mGy-cm Ordere d By: Arelis Joya CC: ------ ------ ------ ------ ------ ------ ------ ------ ------ ------ ------ ------ ---- Dictat ed By: Johnathon West M.D. 1644 Transc ribed By: Diane West MD 1644 This is privil eged, confid ential inform ation intend ed only for the provid er named. Any use or distri bution by any person other than this provid er is strict ly prohib ited. If you receiv e this report in error, please notify us immrafael kwong at [phone] and return the origin al report to us at the addres s above. Thank- you. landry [address] [facility] , [place], [address] 04/06/2024 20:40:24 Result Notes None recorded. Problems Name Status Onset Date Resolution Date Notes Provider Name and Address Organization Details Recorded Time Major depression, single episode Active 201003/18/2022 - Comments only - Arelis Meneses MD - /Anxiety. He is doing well currently, happy to be in his current living situation. Staying connected with family. He continues on Wellbutrin and venlafaxine which he wants to continue with. Problem Code: F32.9; Problem Code Type: ICD-10; Not Available [facility] 3 05:28:17 Essential hypertension Active 201011/07/2020 - Comments only - Arelis Meneses MD - per recent reading at [facility] I feel this is remaining under reasonable control. He will continue the metoprolol, terazosin. Also on isosorbide. Problem Code: I10; Problem Code Type: ICD-10; ENRIQUE LIMON MD [address], [place], [address] , [facility] 3 15:45:28 Hyperlipidemi a Active 201005/19/2019 - Comments only - Primitivo Brown - He will continue atorvastatin. Problem Code: E78.5; Problem Code Type: ICD-10; Not Available [facility] 3 05:28:17 Generalized anxiety disorder Active 201208/08/2021 - Comments only - Arelis Meneses MD - improved now that he has a warm apartment to be in for the winter. He has his name on a list for a senior apartment complex also. He will remain on the wellbutrin and venlafaxine for now. Problem Code: F41.1; Problem Code Type: ICD-10; Not Available [facility] 3 05:28:17 Postprocedura l state finding Active 2012 Problem Code: Z98.89; Problem Code Type: ICD-10; Not Available [facility] 3 05:28:18 Gastrointesti nal tract excision Active 2012 Problem Code: Z90.49; Problem Code Type: ICD-10; Not Available [facility] 3 05:28:18 History of polyp of colon Active 2018 Problem Code: Z86.010; Problem Code Type: ICD-10; Not Available [facility] 3 05:28:18 Gastroesophag eal reflux disease without esophagitis Active 201011/07/2020 - Comments only - Arelis Meneses MD - discussed trying to cut back on prilosec. He will continue the AM dose but d/c the PM. He continues on ranitidine at hs. Problem Code: K21.9; Problem Code Type: ICD-10; ENRIQUE LIMON MD [address], [place], [address] , [facility] 3 15:45:28 Sj??gren's syndrome Active 201308/11/2022 - Comments only - Arelis Meneses MD - , Possible Sjogren's. He does have RA as well. Again he is learned to live with it for the most part. Problem Code: M35.00; Problem Code Type: ICD-10; Not Available [facility] 3 05:28:18 Overweight Active 2010 Problem Code: E66.3; Problem Code Type: ICD-10; Not Available [facility] 3 05:28:18 Insomnia Active 201008/08/2021 - Comments only - Arelis Meneses MD - doing better on the trazadone, off the temazepam. Will continue to monitor. Problem Code: G47.00; Problem Code Type: ICD-10; Not Available [facility] 3 05:28:18 Osteoporotic fracture of vertebra Active 2010 Problem Code: M80.88xD; Problem Code Type: ICD-10; Not Available [facility] 3 05:28:19 Rheumatoid arthritis Active 201002/12/2023 - Comments only - Arelis Meneses MD - He continues on rituxan, followed by rheumatology Problem Code: M06.9; Problem Code Type: ICD-10; MD [address], [place], [address] , [facility] 3 15:45:28 Rosacea Active 201203/18/2022 - Comments only - Arelis Meneses MD - Which seems to have flared up with his accidentally using diclofenac gel instead of metronidazole gel. Explained the difference to him. 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 If he has not had improvement within 3 to 4 weeks to let us know. Problem Code: L71.9; Problem Code Type: ICD-10; MD [address], [place], [address] , [facility] 3 15:45:28 Secondary pulmonary hypertension Active 2014 Problem Code: I27.2; Problem Code Type: ICD-10; Not Available [facility] 3 05:28:19 Dyspnea Active 201407/05/2021 - Comments only - Arelis Meneses MD - On exertion. In addition [...] R06.00; Problem Code Type: ICD-10; Not Available [facility] 3 05:28:19 Congenital anomaly of diaphragm Active 2014 Problem Code: Q79.1; Problem Code Type: ICD-10; MD [address], [place], [address] , [facility] 3 15:45:29 Polyneuropath y Active 2015 Problem Code: G62.9; Problem Code Type: ICD-10; Not Available [facility] 3 05:28:20 Hypothyroidis m Active 201508/11/2022 - Comments only - Arelis Meneses MD - On levothyroxine . TSH ordered. Problem Code: E03.9; Problem Code Type: ICD-10; ENRIQUE LIMON MD [address] [place], [address] , [facility] 3 15:45:28 Joint pain Active 2015 Problem Code: M25.50; Problem Code Type: ICD-10; Not Available [facility] 3 05:28:20 Adjustment disorder Active 2015 Problem Code: F43.29; Problem Code Type: ICD-10; Not Available [facility] 3 05:28:20 Osteoporosis Active 2015 Problem Code: M81.8; Problem Code Type: ICD-10; Not Available [facility] 3 05:28:20 Acute upper respiratory infection Completed 201506/09/2016 Problem Code: J06.9; Problem Code Type: ICD-10; Not Available [facility] 3 05:28:20 Bleeding from nose Active 2017 Problem Code: R04.0; Problem Code Type: ICD-10; Not Available [facility] 3 05:28:21 Disorder of pharynx Active 2017 Problem Code: J39.2; Problem Code Type: ICD-10; Not Available [facility] 3 05:28:21 Pain of left shoulder joint Active 2017 Problem Code: M25.512; Problem Code Type: ICD-10; Not Available [facility] 3 05:28:21 Chest pain Active 2017 Problem Code: R07.9; Problem Code Type: ICD-10; Not Available [facility] 3 05:28:21 Wheezing Active 2017 Problem Code: R06.2; Problem Code Type: ICD-10; Not Available [facility] 3 05:28:21 Cough Active 201707/05/2021 - Comments only - Arelis Meneses MD - He has had a tickly cough now for years. Initially we thought it was related to lisinopril which was discontinued but this tickly cough never resolved. We will have him try Tessalon Perles as needed, he has used these historically. Problem Code: R05; Problem Code Type: ICD-10; Not Available [facility] 3 05:28:21 Cardiomyopath y Active 201703/18/2022 - Comments only - Arelis Meneses MD - /Pulmonary hypertension. Overall he is remaining stable, continues on medications as listed in prior . . Problem Code: I42.9; Problem Code Type: ICD-10; MD [address], [place], [address] , [facility] 3 15:45:29 Melena Active 2017 Problem Code: K92.1; Problem Code Type: ICD-10; Not Available [facility] 3 05:28:22 Screening for malignant neoplasm of colon Active 201803/10/2019 - Comments only - Arelis Meneses MD - colonoscopy 2019 with tubular adenoma with high grade dysplasia - repeat by early 2019 Problem Code: Z12.11; Problem Code Type: ICD-10; Not Available [facility] 3 05:28:22 Itching of skin Active 2018 Problem Code: L29.9; Problem Code Type: ICD-10; Not Available [facility] 3 05:28:23 Atheroscleros is of coronary artery without angina pectoris Active 201808/11/2022 - Comments only - Arelis Meneses MD - Clinically remaining asymptomatic. He continues on atorvastatin, metoprolol, isosorbide, ASA. Problem Code: I25.10; Problem Code Type: ICD-10; MD [address], [place], [address] , [facility] 3 15:45:28 Adult health examination Active 201803/06/2021 - Comments only - Arelis Meneses MD - He would like to check a PSA with the blood work. Problem Code: Z00.00; Problem Code Type: ICD-10; Not Available [facility] 3 05:28:23 Benign prostatic hyperplasia Active 201805/19/2019 - Comments only - Arelis Meneses MD - with persistent nocturia - will have him increase the terazosin to 4mg qhs Problem Code: N40.0; Problem Code Type: ICD-10; ENRIQUE LIMON MD [address], [place], [address] , [place] [facility] 3 15:45:28 Dysphagia Active 201805/19/2019 - Comments only - Arelis Meneses MD - ongoing - this may be related to Sicca syndrome. He had an ENT w/u without dx found, no upper endoscopy or barium swallow studies in our system. I will ask him about these when I call him with bloodwork results. Problem Code: R13.10; Problem Code Type: ICD-10; Not Available [facility] 3 05:28:23 Non-traumatic tendon rupture Active 2018 Problem Code: M66.871; Problem Code Type: ICD-10; Not Available [facility] 3 05:28:24 Mild intermittent asthma Active 201803/18/2022 - Comments only - Arelis Meneses MD - With chronic dyspnea on exertion. He continues on Symbicort, Singulair. I did suggest he can use the ProAir prior to exercise and he will try that. Problem Code: J45.20; Problem Code Type: ICD-10; Not Available [facility] 3 05:28:24 Traumatic or non-traumatic injury Active 201903/06/2021 - Comments only - Arelis Meneses MD - Right status post injury. Resolving well at this point. Problem Code: T14.8xxA; Problem Code Type: ICD-10; Not Available [facility] 3 05:28:24 Pain of joint of knee Active 2019 Problem Code: M25.569; Problem Code Type: ICD-10; Not Available [facility] 3 05:28:24 Actinic keratosis Active 2019 Problem Code: L57.0; Problem Code Type: ICD-10; Not Available [facility] 3 05:28:25 Pain of right knee joint Active 2019 Problem Code: M25.561; Problem Code Type: ICD-10; Not Available [facility] 3 05:28:25 Prediabetes Active 201908/11/2022 - Comments only - Arelis Meneses MD - He will be due for an A1c at the next visit. Problem Code: R73.03; Problem Code Type: ICD-10; ENRIQUE LIMON MD [address], [place], [address] , [facility] 3 15:45:29 Periapical abscess Active 2019 Problem Code: K04.7; Problem Code Type: ICD-10; Not Available [facility] 3 05:28:26 Disorder of skin and/or subcutaneous tissue Active 202003/18/2022 - Comments only - Arelis Meneses MD - Right posterior ear. We will refer Wesly to Dr. Wade for further evaluation/bi opsy. Problem Code: L98.9; Problem Code Type: ICD-10; Not Available [facility] 3 05:28:26 Therapeutic drug monitoring assay Active 2020 Problem Code: Z51.81; Problem Code Type: ICD-10; Not Available [facility] 3 05:28:26 Ureteric stone Active 202007/05/2021 - Comments only - Arelis Meneses MD - Currently resolved. Following with urology Problem Code: N20.1; Problem Code Type: ICD-10; Not Available [facility] 3 05:28:26 COVID-19 Active 202111/06/2021 - Comments only - Arelis Meneses MD - About 2 months ago. Minimal symptoms, resolved. We did discuss the possibility of the Laura Madrigal I need to find out whether and when he may be a candidate for that given that he has had Covid infection. Problem Code: U07.1; Problem Code Type: ICD-10; Not Available [facility] 3 05:28:26 Disorder of nasal sinus Active 202107/09/2022 - Comments only - Arelis Meneses MD - Along with complaint of dry mouth and dry eyes use likely indicating Sjogren's disorder. Will let rheumatology confirm diagnosis. At this point he is using eyedrops already, I suggested some saline nose spray which she will start. I did not start him on any steroid nasal sprays. Not Available [facility] 3 05:28:27 Chronic cough Active 202102/13/2023 - Comments only - Arelis Meneses MD - /Dyspnea on exertion. He [...] states he did meet with pulmonology at [facility] at 1 point but they just told him symptoms were on his head . We will try and obtain that note. Problem Code: R05.3; Problem Code Type: ICD-10; ENRIQUE LIMON MD [address], [place], [address] , [facility]. 3 15:45:28 Basal cell carcinoma of skin Active 202107/09/2022 - Comments only - Arelis Meneses MD - And actinic keratoses. Following [...] C44.91; Problem Code Type: ICD-10; Not Available [facility] 3 05:28:27 Benign neoplasm of colon Active 202108/11/2022 - Comments only - Arelis Meneses MD - , History of. Due for colonoscopy. Problem Code: D12.6; Problem Code Type: ICD-10; ENRIQUE LIMON MD [address], [place], [address] , [facility] 3 15:45:29 Degenerative disorder of macula Active 2022 Problem Code: H35.30; Problem Code Type: ICD-10; Not Available [facility] 3 05:28:28 Long-term current use of drug therapy Active 2022 Problem Code: Z79.69; Problem Code Type: ICD-10; Not Available [facility] 3 05:28:28 Disorder of sacrum Active 2022 Not Available [facility] 3 05:28:28 Hip pain Active 2022 Problem Code: M25.559; Problem Code Type: ICD-10; Not Available [facility] 3 05:28:28 Acute upper respiratory infection Completed 201511/21/2017 Problem Code: J06.9; Problem Code Type: ICD-10; Not Available [facility] 3 05:28:30 Blepharitis Completed 201201/28/2018 Problem Code: H01.009; Problem Code Type: ICD-10; Not Available [facility] 3 05:28:31 Cough Completed 201401/28/2018 Problem Code: R05; Problem Code Type: ICD-10; Not Available [facility] 3 05:28:31 Gastroesophag eal reflux disease Completed 201005/29/2023 Not Available [facility] 3 05:28:31 Dizziness and giddiness Completed 201501/28/2018 Problem Code: R42; Problem Code Type: ICD-10; Not Available [facility] 3 05:28:32 Cellulitis Completed 201606/03/2017 Problem Code: L03.119; Problem Code Type: ICD-10; Not Available [facility] 3 05:28:32 Osteopenia Completed 201005/29/2023 Not Available [facility] 3 05:28:32 Effusion of joint Completed 201401/28/2018 Problem Code: M25.40; Problem Code Type: ICD-10; Not Available [facility] 3 05:28:33 Acute bronchitis Completed 201409/25/2016 Problem Code: J20.9; Problem Code Type: ICD-10; Not Available [facility] 3 05:28:33 Hypertensive disorder Completed 201005/29/2023 Not Available [facility] 3 05:28:34 Hernia of anterior abdominal wall Completed 201205/29/2023 Not Available [facility] 3 05:28:35 Bursitis of olecranon of left elbow Completed 201601/28/2018 Problem Code: M70.22; Problem Code Type: ICD-10; Not Available [facility] 3 05:28:36 Pre-surgery evaluation Completed 201606/03/2017 Problem Code: Z01.818; Problem Code Type: ICD-10; Not Available [facility] 3 05:28:36 Acute pharyngitis Completed 201701/28/2018 Problem Code: J02.9; Problem Code Type: ICD-10; Not Available [facility] 3 05:28:37 Colonoscopy Completed 201205/29/2023 Not Available [facility] 3 05:28:38 Specialized medical examination Completed 201205/29/2023 Problem Code: Z01.89; Problem Code Type: ICD-10; Not Available [facility] 3 05:28:39 Chronic maxillary sinusitis Completed 201601/28/2018 Problem Code: J32.0; Problem Code Type: ICD-10; Not Available [facility] 3 05:28:40 Pathological fracture of vertebra Completed 201005/29/2023 Not Available [facility] 3 05:28:40 Hypothyroidis m Completed 201205/29/2023 ENRIQUE LIMON MD [address], [place], [address] , [facility] 3 15:45:28 Adult health examination Completed 201601/28/2018 Problem Code: Z00.00; Problem Code Type: ICD-10; Not Available [facility] 3 05:28:41 Osteoporosis Completed 201005/29/2023 Not Available [facility] 3 05:28:43 Increased frequency of urination Completed 201601/28/2018 Problem Code: R35.0; Problem Code Type: ICD-10; Not Available [facility] 3 05:28:44 Pulmonary hypertension Completed 201405/29/2023 Not Available [facility] 3 05:28:45 Conjunctiviti s Completed 201201/28/2018 Problem Code: H10.89; Problem Code Type: ICD-10; Not Available [facility] 3 05:28:46 Bone density finding Completed 201009/25/2016 Problem Code: M85.80; Problem Code Type: ICD-10; Not Available [facility] 3 05:28:46 Rosacea conjunctiviti s Completed 201205/29/2023 Not Available [facility] 3 05:28:47 Anxiety state Completed 201205/29/2023 Not Available [facility] 3 05:28:48 Obstructed labor due to shoulder dystocia Completed 201501/16/2016 Problem Code: O66.0; Problem Code Type: ICD-10; Not Available [facility] 3 05:28:49 Depressive disorder Completed 201005/29/2023 Not Available [facility] 3 05:28:51 Pneumonia Completed 201701/28/2018 Problem Code: J18.9; Problem Code Type: ICD-10; Not Available [facility] 3 05:28:52 Pain of left shoulder joint Completed 201501/28/2018 Problem Code: M25.512; Problem Code Type: ICD-10; Not Available [facility] 3 05:28:54 History of SARS-CoV-2 Active [address], [place], [address] , [facility] 4 11:04:33 Benign prostatic hyperplasia with outflow obstruction Active [address], [place], [address] , [facility] 4 10:07:46 CT of chest abnormal Active 2023 nodular infiltrate 04/25 - repeat in 3 months MD [address], [place], [address] , [facility] 4 20:40:16 Notes:*Problem Name: Chronic Dyspnea *ICD-10 Codes: *Problem Status: inactive *Comments: *Note Date: 09/10/2014 *Problem Name: Colectomy *ICD-10 Codes: *Problem Status: inactive *Comments: *Note Date: 12/01/2012 *Problem Name: Elevated Rt Hemidiaphragm *ICD-10 Codes: *Problem Status: inactive *Comments: *Note Date: 09/10/2014 Problem Notes None recorded. Procedures Surgical History None recorded. Imaging Results Imaging Date Name Status LastModified by Organ atreplaced by [facility] Details LastModified Time 12/28/2023 vrad report completed [address] [place], [address] 01/05/2024 07:04:06 12/28/2023 x-ray imaging report completed [address] [place], [address] 01/05/2024 07:04:06 12/30/2023 x-ray imaging report completed [address] [place], [address] 01/05/2024 07:04:06 01/08/2024 XR, chest, 2 view completed [email or web address] [place], [address] 02/06/2024 12:04:57 04/06/2024 CT imaging report completed [address] [place], [address] 04/06/2024 20:40:24 Procedure Notes None recorded. Medical Equipment None Reported. Allergies Allergen ID Allergen Name Allergen Category Reaction Reaction Severity Criticality Documentation Date Start Date Code Code System Note Provider Name and Address Organization Details Recorded Time 00439 lisinopri l medicatio n cough moderate Not available 07/12/20232011 88408 RxNorm dry cough Aller gyCod e: '3140 76'; Aller gyNam e: 'XIOMY NOPRI L'; Aller gyCon ceptT ype: 'RX Norm' ; Aller gyRea ction : 'dry cough '; Not Available [facility] 16:21:49 Medications Name Sig Start Date [...] oral route as needed. active RX by [facility] pulmonol ogy Not Available Not Available [...] aerosol inhaler 2 PUFFS QID PRN WHEEZING 11/09/ 2011 04/01 /2013 completed Not Available Not Available Not Available [...] Not Available Rituxan every 16 weeks at [facility]. Labs 1-2 weeks prior to infusion active [...] on route as needed. active Rx by [facility] pulmonol ogy Not Available Not Available [...] 130 mm[Hg] 82 mm[Hg] NASREEN DAUGHERTY LPN [facility] 4 08:02:17 Date Recorded Body height Oxygen saturation Oxygen saturation in Arterial blood by Pulse oximetry Heart rate Body temperature Respiratory rate Systolic blood pressure Diastolic blood pressure Provider Name and Address Organization Details Last Updated DateTime 4 180.34 cm 91 % 91 % 119 /min 97.7 [degF] 22 /min 152 mm[Hg] 98 mm[Hg] Emily Montano RN [facility] 4 13:12:06 Date Recorded Body height Body mass index (BMI) Body weight Heart rate Oxygen saturation Oxygen saturation in Arterial blood by Pulse oximetry Systolic blood pressure Diastolic blood pressure Provider Name and Address Organization Details Last Updated DateTime 4 180.34 cm 29.1 kg/m2 68269.8 1 g 75 /min 87 % 87 % 140 mm[Hg] 72 mm[Hg] Ruthie Ring [facility] 4 09:35:33 Date Recorded Body height Oxygen saturation Oxygen saturation in Arterial blood by Pulse oximetry Heart rate Body temperature Respiratory rate Systolic blood pressure Diastolic blood pressure Provider Name and Address Organization Details Last Updated DateTime 4 180.34 cm 92 % 92 % 88 /min 98.1 [degF] 18 /min 118 mm[Hg] 68 mm[Hg] Siobhan amin LPN [facility] 4 14:43:37 Date Recorded Body height Body mass index (BMI) Body weight Body temperature Oxygen saturation Oxygen saturation in Arterial blood by Pulse oximetry Systolic blood pressure Diastolic blood pressure Provider Name and Address Organization Details Last Updated DateTime 4 180.34 cm 29.6 kg/m2 30591.3 8 g 97.2 [degF] 93 % 93 % 120 mm[Hg] 78 mm[Hg] NASREEN DAUGHERTY LPN [facility] 4 15:36:44 Social History Question Answer Notes LastModified by Organizat ion Details LastModified Time Tobacco Smoking Status Never Smoker YAZAN Beaulieu, [facility] 11/19/2023 11:03:00 What Was The Date Of Your Most Recent Tobacco Screening? 11/19/2023 [email or web address] Information not available 11/19/2023 Has Tobacco Cessation Counseling Been Provided? No [email or web address] Information not available 11/19/2023 Do You Or Have You Ever Used Any Other Forms Of Tobacco Or Nicotine? No [email or web address] Information not available 11/19/2023 Sex: Male Functional [...] preservative free, adsorbed 06/14/2020 completed Not Available [facility] 07/12/2023 04:58:16 Tdap 05/08/2012 completed Not Available [facility] 04:58:16 Pneumococcal conjugate PCV 13 06/26/2016 completed Not Available [facility] 07/12/2023 04:58:17 Influenza, high-dose, trivalent, PF 06/04/2018 completed Not Available [facility] 07/12/2023 04:58:18 Influenza, split virus, trivalent, preservative 05/23/2016 completed Not Available [facility] 07/12/2023 04:58:18 Influenza, split virus, trivalent, preservative 05/26/2015 completed Not Available [facility] 07/12/2023 04:58:19 Influenza, high-dose, quadrivalent, PF 06/30/2020 completed Not Available [facility] 07/12/2023 04:58:20 Influenza, high-dose, quadrivalent, PF 06/30/2021 completed Not Available [facility] 07/12/2023 04:58:21 Influenza, high-dose, quadrivalent, PF 07/06/2022 completed Not Available [facility] 07/12/2023 04:58:21 COVID-19, mRNA, LNP-S, PF, 100 mcg/0.5mL dose or 50 mcg/0.25mL dose 11/07/2020 completed Not Available [facility] 07/12/2023 04:58:21 COVID-19, mRNA, LNP-S, PF, 100 mcg/0.5mL dose or 50 mcg/0.25mL dose 12/05/2020 completed Not Available [facility] 07/12/2023 04:58:22 COVID-19, mRNA, LNP-S, PF, 100 mcg/0.5mL dose or 50 mcg/0.25mL dose 12/26/2021 completed Not Available [facility] 07/12/2023 04:58:22 COVID-19, mRNA, LNP-S, PF, 100 mcg/0.5mL dose or 50 mcg/0.25mL dose 06/30/2021 completed Not Available [facility] 07/12/2023 04:58:22 COVID-19, mRNA, LNP-S, bivalent, PF, 30 mcg/0.3 mL dose 07/06/2022 completed Not Available [facility] 07/12/20 04:58:23 pneumococcal polysaccharide PPV23 09/07/2014 completed Not Available [facility] 2022 04:58:23 influenza, unspecified formulation 05/20/2014 completed Not Available [facility] 07/12/2023 04:58:24 influenza, unspecified formulation 06/05/2017 completed Not Available [facility] 07/12/2023 04:58:24 influenza, unspecified formulation 07/02/2019 completed Not Available [facility] 07/12/2023 04:58:26 Influenza, high-dose, quadrivalent, PF 05/14/2023 completed Not Available [facility] 09/13/2023 05:31:41 COVID-19, mRNA, LNP-S, PF, jonathan-sucrose, 30 mcg/0.3 mL 08/21/2023 completed Perico Quiroz MA [facility] 08/21/2023 10:07:33 Past Encounters Encounter ID Performer Location Encounter Start Date Encounter Closed Date Diagnosis/Indication Diagnosis SNOMED-CT Code [id number] Perico Quiroz MA [address] [address] 08/21/2023 09:44:17 08/21/2023 10:00:31 Active or passive immunization [id number] HUANG VARGAS, [facility] [address] 08/29/2023 08:46:49 08/29/2023 09:56:01 Chronic cough 02052048 [id number] ARELIS MENESES MD [address] [address] 11/19/2023 10:53:04 11/19/2023 11:53:05 Chronic cough 72028047 [id number] ARELIS MENESES MD [address] [address] 12/05/2023 08:36:45 12/05/2023 09:47:14 Chronic cough 72521525 Prediabetes 449399366 Rheumatoid arthritis 698 73006 [id number] ANAI MALAGON [address] [address] 01/08/2024 07:49:22 01/08/2024 08:44:03 Pneumonia [id number] ARELIS MENESES MD [address] [address] 01/10/2024 12:49:03 01/10/2024 14:06:15 Hypercalcemia 83413806 Pneumonia 803512662 Cardiomyopathy 98060705 Rheumatoid arthritis 698 93970 Disorder o f skin and/or subcutaneous tissue 09810499 [id number] ARELIS MENESES MD [address] [address] 02/11/2024 09:18:07 02/11/2024 10:20:49 Hypercalcemia 10928769 Cardiomyopathy 42797480 Disorder o f skin and/or subcutaneous tissue 32599255 Benign pro static hyperplasia with outflow obstruction 154658036 Chronic cough 37754196 Hypothyroidism 73329273 [id number] HUANG VARGAS, [facility] [address] 03/26/2024 14:15:57 03/26/2024 15:32:32 Cough 16685023 [id number] JORGITO LEE PA-C [address] [address] 04/01/2024 15:14:08 04/01/2024 15:53:52 Pneumonia 996269017 Chronic cough 19230853 Health Concerns Section Related Observation LastModified by Organization Detai ls LastModified Time None Recorded Concern Status LastModified by Organization Details LastModified Time None Recorded Advance Directives Directive None Recorded Payers Encounter Date Sequence Insurance Name Policy Number Policy Cervantes Covered Member ID Cervantes Member ID Guarantor Name 01/08/2024 1 [employer] (MEDICARE REPLACEMENT/ ADVANTAGE - PPO) Wesly Ybarra [id number] Wesly Ybarra 02/11/2024 1 [employer] (MEDICARE REPLACEMENT/ ADVANTAGE - PPO) Wesly Ybarra [id number] Wesly Ybarra 03/26/2024 1 [employer] (MEDICARE REPLACEMENT/ ADVANTAGE - PPO) Wesly Rutherford Amada [id number] Wesly Ybarra 04/01/2024 1 [employer] (MEDICARE REPLACEMENT/ ADVANTAGE - PPO) Wesly Penalozamargy [id number] Wesly Rutherford Amada Notes Date Note Type Note Provider Name and Address Organization Details Recorded Time 01/08/2024 text/html HPI Notes: 73-year-old man here for ER follow-up? was seen at [facility] ER12/30/2023 for pneumonia? had complained of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
--- OUTSIDE RECORDS SUMMARY | 2024-04-24 21:04 | XMS_ITS | Continuity of Care Document ---
Author Organization [facility] Address [address] [place] [address] Care Team Providers Care Manufacturing Test Technician Name Role Phone DELPHINE ZARCO Hvac Controls Technician DIONE PATEL Implementation Specialist Assessment No assessment recorded. Plan of Treatment Reminders Order Date Submit Date Provider Last Modified By Organization Details Last Modified Time Details Appointments Follow Up 30 2023 08:10A M Not available Not available Not available Lab BMP, serum or plasma 2023 024 [email or web address] [facility] [address] [place] [address] [place], [address], 04/14/2024 13:19:49 PTH (parathyr oid hormone), intact, serum or plasma 2023 024 [email or web address] [facility] ([facility]), [address] [place] [address] [place], [address], 04/14/2024 13:19:50 TSH, serum, reflex free T4 [address] [facility] ([facility]), [address] [place] [address] [place], [address], 04/14/2024 13:19:50 Referral dermatolo gist referral 2023 024 ATHENAFAJoaquina Sullivan MD, [address], [place], [address], 02/12/2024 07:45:23 Procedures None recorded. Surgeries None recorded. Imaging None recorded. Medication Orders metronida zole 1 % topical cream 2023 024 [facility], [address] [place], [address], 03/26/2024 14:45:44 doxycycli ne monohydra te 100 mg tablet 2023 024 [facility], [address] [place] [address], [id number], 02/11/2024 17:13:04 prednison e 10 mg tablet 2023 024 [facility], [address] [place], [address], 03/26/2024 14:46:05 tamsulosi n 0.4 mg capsule 2023 024 [facility], [address] [place] [address], [id number], 02/11/2024 17:13:23 Patient TargetsNo targets recorded. Patient InstructionsNo instructions recorded. 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 Thank- you. landry [facility] [address], [place], [address] 04/06/2024 20:40:24 Result Notes None recorded. Problems [...] F32.9; Problem Code Type: ICD-10; Not Available [facility] 3 05:28:17 Essential hypertension Active 201011/07/2020 - Comments only - Lee Meneses MD - per recent reading at [facility] I feel this is remaining under reasonable control. He will continue the metoprolol, terazosin. Also on isosorbide. Problem Code: I10; Problem Code Type: ICD-10; ENRIUQE LIMON MD [address], [place], [address] , [facility] 3 15:45:28 Hyperlipidemi a Active 201005/19/2019 - Comments only - Primitivo Brown - He will continue atorvastatin. Problem Code: E78.5; Problem Code Type: ICD-10; Not Available [facility] 3 05:28:17 Generalized anxiety disorder Active 201208/08/2021 - Comments only - Lee Meneses MD - improved now that he has a warm apartment to be in for the winter. He has his name on a list for a senior apartment complex also. He will remain on the wellbutrin and venlafaxine for now. Problem Code: F41.1; Problem Code Type: ICD-10; Not Available [facility] 3 05:28:17 Postprocedura l state finding Active 2012 Problem Code: Z98.89; Problem Code Type: ICD-10; Not Available [facility] 3 05:28:18 Gastrointesti nal tract excision Active 2012 Problem Code: Z90.49; Problem Code Type: ICD-10; Not Available [facility] 3 05:28:18 History of polyp of colon Active 2018 Problem Code: Z86.010; Problem Code Type: ICD-10; Not Available [facility] 3 05:28:18 Gastroesophag eal reflux disease without esophagitis Active 201011/07/2020 - Comments only - Lee Meneses MD - discussed trying to cut back on prilosec. He will continue the AM dose but d/c the PM. He continues on ranitidine at . Problem Code: K21.9; Problem Code Type: ICD-10; MD [address], [place], [address] , [facility] 3 15:45:28 Sj??gren's syndrome Active 201308/11/2022 - Comments only - Lee Meneses MD - , Possible Sjogren's. He does have RA as well. Again he is learned to live with it for the most part. Problem Code: M35.00; Problem Code Type: ICD-10; Not Available [facility] 3 05:28:18 Overweight Active 2010 Problem Code: E66.3; Problem Code Type: ICD-10; Not Available [facility] 3 05:28:18 Insomnia Active 201008/08/2021 - Comments only - Lee Meneses MD - doing better on the trazadone, off the temazepam. Will continue to monitor. Problem Code: G47.00; Problem Code Type: ICD-10; Not Available [facility] 3 05:28:18 Osteoporotic fracture of vertebra Active 2010 Problem Code: M80.88xD; Problem Code Type: ICD-10; Not Available [facility] 3 05:28:19 Rheumatoid arthritis Active 201002/12/2023 - Comments only - Lee Meneses MD - He continues on rituxan, followed by rheumatology Problem Code: M06.9; Problem Code Type: ICD-10; MD [address], [place], [address] , [facility] 3 15:45:28 Rosacea Active 201203/18/2022 - Comments only - Lee Meneses MD - Which seems to have flared up with his accidentally using diclofenac gel instead of metronidazole gel. Explained the difference to him. 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 If he has not had improvement within 3 to 4 weeks to let us know. Problem Code: L71.9; Problem Code Type: ICD-10; MD [address], [place], [address] , [facility] 3 15:45:28 Secondary pulmonary hypertension Active 2014 Problem Code: I27.2; Problem Code Type: ICD-10; Not Available [facility] 3 05:28:19 Dyspnea Active 201407/05/2021 - Comments [...] R06.00; Problem Code Type: ICD-10; Not Available [facility] 3 05:28:19 Congenital anomaly of diaphragm Active 2014 Problem Code: Q79.1; Problem Code Type: ICD-10; MD [address], [place], [address] , [facility] 3 15:45:29 Polyneuropath y Active 2015 Problem Code: G62.9; Problem Code Type: ICD-10; Not Available [facility] 3 05:28:20 Hypothyroidis m Active 201508/11/2022 - Comments only - Lee Meneses MD - On levothyroxine . TSH ordered. Problem Code: E03.9; Problem Code Type: ICD-10; MD [address], [place], [address] , [facility] 3 15:45:28 Joint pain Active 2015 Problem Code: M25.50; Problem Code Type: ICD-10; Not Available [facility] 3 05:28:20 Adjustment disorder Active 2015 Problem Code: F43.29; Problem Code Type: ICD-10; Not Available [facility] 3 05:28:20 Osteoporosis Active 2015 Problem Code: M81.8; Problem Code Type: ICD-10; Not Available [facility] 3 05:28:20 Acute upper respiratory infection Completed 201506/09/2016 Problem Code: J06.9; Problem Code Type: ICD-10; Not Available [facility] 3 05:28:20 Bleeding from nose Active 2017 Problem Code: R04.0; Problem Code Type: ICD-10; Not Available [facility] 3 05:28:21 Disorder of pharynx Active 2017 Problem Code: J39.2; Problem Code Type: ICD-10; Not Available [facility] 3 05:28:21 Pain of left shoulder joint Active 2017 Problem Code: M25.512; Problem Code Type: ICD-10; Not Available [facility] 3 05:28:21 Chest pain Active 2017 Problem Code: R07.9; Problem Code Type: ICD-10; Not Available [facility] 3 05:28:21 Wheezing Active 2017 Problem Code: R06.2; Problem Code Type: ICD-10; Not Available [facility] 3 05:28:21 Cough Active 201707/05/2021 - Comments [...] Code Type: ICD-10; Not Available [facility] 3 05:28:21 Cardiomyopath y Active 201703/18/2022 - Comments only - Lee Meneses MD - /Pulmonary hypertension. Overall he is remaining stable, continues on medications as listed in prior . . Problem Code: I42.9; Problem Code Type: ICD-10; ENRIQUE LIMON MD [address], [place], [address] , [facility] 3 15:45:29 Melena Active 2017 Problem Code: K92.1; Problem Code Type: ICD-10; Not Available [facility] 3 05:28:22 Screening for malignant neoplasm of colon Active 201803/10/2019 - Comments only - Lee Meneses MD - colonoscopy 2018 with tubular adenoma with high grade dysplasia - repeat by early 2019 Problem Code: Z12.11; Problem Code Type: ICD-10; Not Available [facility] 3 05:28:22 Itching of skin Active 2018 Problem Code: L29.9; Problem Code Type: ICD-10; Not Available [facility] 3 05:28:23 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 He continues on atorvastatin, metoprolol, isosorbide, ASA. Problem Code: I25.10; Problem Code Type: ICD-10; MD [address], [place], [address] , [facility] 3 15:45:28 Adult health examination Active 201803/06/2021 - Comments only - Lee Meneses MD - He would like to check a PSA with the blood work. Problem Code: Z00.00; Problem Code Type: ICD-10; Not Available [facility] 3 05:28:23 Benign prostatic hyperplasia Active 201805/19/2019 - Comments only - Lee Meneses MD - with persistent nocturia - will have him increase the terazosin to 4mg qhs Problem Code: N40.0; Problem Code Type: ICD-10; MD [address], [place], [address] , [facility] 3 15:45:28 Dysphagia Active 201805/19/2019 [...] R13.10; Problem Code Type: ICD-10; Not Available [facility] 3 05:28:23 Non-traumatic tendon rupture Active 2018 Problem Code: M66.871; Problem Code Type: ICD-10; Not Available [facility] 3 05:28:24 Mild intermittent asthma Active 201803/18/2022 - Comments only - Lee Meneses MD - With chronic dyspnea on exertion. He continues on Symbicort, Singulair. I did suggest he can use the ProAir prior to exercise and he will try that. Problem Code: J45.20; Problem Code Type: ICD-10; Not Available [facility] 3 05:28:24 Traumatic or non-traumatic injury Active 201903/06/2021 - Comments only - Lee Meneses MD - Right status post injury. Resolving well at this point. Problem Code: T14.8xxA; Problem Code Type: ICD-10; Not Available [facility] 3 05:28:24 Pain of joint of knee Active 2019 Problem Code: M25.569; Problem Code Type: ICD-10; Not Available [facility] 3 05:28:24 Actinic keratosis Active 2019 Problem Code: L57.0; Problem Code Type: ICD-10; Not Available [facility] 3 05:28:25 Pain of right knee joint Active 2019 Problem Code: M25.561; Problem Code Type: ICD-10; Not Available [facility] 3 05:28:25 Prediabetes Active 201908/11/2022 - Comments only - Lee Meneses MD - He will be due for an A1c at the next visit. Problem Code: R73.03; Problem Code Type: ICD-10; ENRIQUE LIMON MD [address], [place], [address] , [facility] 3 15:45:29 Periapical abscess Active 2019 Problem Code: K04.7; Problem Code Type: ICD-10; Not Available [facility] 3 05:28:26 Disorder of skin and/or subcutaneous tissue Active 202003/18/2022 - Comments only - Lee Meneses MD - Right posterior ear. We will refer Wesly to Dr. Wade for further evaluation/bi opsy. Problem Code: L98.9; Problem Code Type: ICD-10; Not Available [facility] 3 05:28:26 Therapeutic drug monitoring assay Active 2020 Problem Code: Z51.81; Problem Code Type: ICD-10; Not Available [facility] 3 05:28:26 Ureteric stone Active 202007/05/2021 - Comments only - Lee Meneses MD - Currently resolved. Following with urology Problem Code: N20.1; Problem Code Type: ICD-10; Not Available [facility] 3 05:28:26 COVID-19 Active 202111/06/2021 - Comments only - Lee Meneses MD - About 2 months ago. Minimal symptoms, resolved. We did discuss the possibility of the Laura Madrigal I need to find out whether and when he may be a candidate for that given that he has had Covid infection. Problem Code: U07.1; Problem Code Type: ICD-10; Not Available [facility] 3 05:28:26 Disorder of nasal sinus Active [...] steroid nasal sprays. Not Available [facility] 3 05:28:27 Chronic cough Active 202102/13/2023 - [...] states he did meet with pulmonology at [facility] at 1 point but they just told him symptoms were on his head . We will try and obtain that note. Problem Code: R05.3; Problem Code Type: ICD-10; MD [address], [place], [address] , [facility] 3 15:45:28 Basal cell carcinoma of [...] C44.91; Problem Code Type: ICD-10; Not Available [facility] 3 05:28:27 Benign neoplasm of colon Active 202108/11/2022 - Comments only - Lee Meneses MD - , History of. Due for colonoscopy. Problem Code: D12.6; Problem Code Type: ICD-10; MD [address], [place], [address] , [facility] 3 15:45:29 Degenerative disorder of macula Active 2022 Problem Code: H35.30; Problem Code Type: ICD-10; Not Available [facility] 3 05:28:28 Long-term current use of drug therapy Active 2022 Problem Code: Z79.69; Problem Code Type: ICD-10; Not Available [facility] 3 05:28:28 Disorder of sacrum Active 2022 Not Available [facility] 3 05:28:28 Hip pain Active 2022 Problem Code: M25.559; Problem Code Type: ICD-10; Not Available [facility] 3 05:28:28 Acute upper respiratory infection Completed 201511/21/2017 Problem Code: J06.9; Problem Code Type: ICD-10; Not Available [facility] 3 05:28:30 Blepharitis Completed 201201/28/2018 Problem Code: H01.009; Problem Code Type: ICD-10; Not Available [facility] 3 05:28:31 Cough Completed 201401/28/2018 Problem Code: R05; Problem Code Type: ICD-10; Not Available [facility] 3 05:28:31 Gastroesophag eal reflux disease Completed 201005/29/2023 Not Available [facility] 3 05:28:31 Dizziness and giddiness Completed 201501/28/2018 Problem Code: R42; Problem Code Type: ICD-10; Not Available [facility] 3 05:28:32 Cellulitis Completed 201606/03/2017 Problem Code: L03.119; Problem Code Type: ICD-10; Not Available [facility] 3 05:28:32 Osteopenia Completed 201005/29/2023 Not Available [facility] 3 05:28:32 Effusion of joint Completed 201401/28/2018 Problem Code: M25.40; Problem Code Type: ICD-10; Not Available [facility] 3 05:28:33 Acute bronchitis Completed 201409/25/2016 Problem Code: J20.9; Problem Code Type: ICD-10; Not Available [facility] 3 05:28:33 Hypertensive disorder Completed 201005/29/2023 Not Available [facility] 3 05:28:34 Hernia of anterior abdominal wall Completed 201205/29/2023 Not Available [facility] 3 05:28:35 Bursitis of olecranon of left elbow Completed 201601/28/2018 Problem Code: M70.22; Problem Code Type: ICD-10; Not Available [facility] 3 05:28:36 Pre-surgery evaluation Completed 201606/03/2017 Problem Code: Z01.818; Problem Code Type: ICD-10; Not Available [facility] 3 05:28:36 Acute pharyngitis Completed 201701/28/2018 Problem Code: J02.9; Problem Code Type: ICD-10; Not Available [facility] 3 05:28:37 Colonoscopy Completed 201205/29/2023 Not Available [facility] 3 05:28:38 Specialized medical examination Completed 201205/29/2023 Problem Code: Z01.89; Problem Code Type: ICD-10; Not Available [facility] 3 05:28:39 Chronic maxillary sinusitis Completed 201601/28/2018 Problem Code: J32.0; Problem Code Type: ICD-10; Not Available [facility] 3 05:28:40 Pathological fracture of vertebra Completed 201005/29/2023 Not Available [facility] 3 05:28:40 Hypothyroidis m Completed 201205/29/2023 ENRIQUE LIMON MD [address], [place], [address] , [facility] 3 15:45:28 Adult health examination Completed 201601/28/2018 Problem Code: Z00.00; Problem Code Type: ICD-10; Not Available [facility] 3 05:28:41 Osteoporosis Completed 201005/29/2023 Not Available [facility] 3 05:28:43 Increased frequency of urination Completed 201601/28/2018 Problem Code: R35.0; Problem Code Type: ICD-10; Not Available [facility] 3 05:28:44 Pulmonary hypertension Completed 201405/29/2023 Not Available [facility] 3 05:28:45 Conjunctiviti s Completed 201201/28/2018 Problem Code: H10.89; Problem Code Type: ICD-10; Not Available [facility] 3 05:28:46 Bone density finding Completed 201009/25/2016 Problem Code: M85.80; Problem Code Type: ICD-10; Not Available [facility] 3 05:28:46 Rosacea conjunctiviti s Completed 201205/29/2023 Not Available [facility] 3 05:28:47 Anxiety state Completed 201205/29/2023 Not Available [facility] 3 05:28:48 Obstructed labor due to shoulder dystocia Completed 201501/16/2016 Problem Code: O66.0; Problem Code Type: ICD-10; Not Available [facility] 3 05:28:49 Depressive disorder Completed 201005/29/2023 Not Available [facility] 3 05:28:51 Pneumonia Completed 201701/28/2018 Problem Code: J18.9; Problem Code Type: ICD-10; Not Available [facility] 3 05:28:52 Pain of left shoulder joint Completed 201501/28/2018 Problem Code: M25.512; Problem Code Type: ICD-10; Not Available [facility] 3 05:28:54 History of SARS-CoV-2 Active [address], [place], [address] , [facility]. 4 11:04:33 Benign prostatic hyperplasia with outflow obstruction Active [address], [place], [address] [facility] 4 10:07:46 CT of chest abnormal Active 2023 nodular infiltrate 04/25 - repeat in 3 months MD [address], [facility] [address] , [facility] 4 20:40:16 Notes:*Problem Name: Chronic Dyspnea [...] Name and Address Organization Details Recorded Time 12636 lisinopri l medicatio n cough moderate Not available 07/12/20232011 90619 RxNorm dry cough Aller gyCod e: '3140 76'; Aller gyNam e: 'XIOMY NOPRI L'; Aller gyCon ceptT ype: 'RX Norm' ; Aller gyRea ction : 'dry cough '; Not Available [facility] 3 16:21:49 Medications Name Sig Start Date [...] oral route as needed. active RX by [facility] pulmonol ogy Not Available Not Available Not Available Zithromax 500 mg tablet 1 TAB DAILY 09/17 completed Not Available Not Available Not Available Saline Nasal 0.65 % spray aerosol Use every 3 hours as needed 11/04/ 2022 active Not Available Not Available Not [...] Not Available [place] [facility] 1-2 weeks prior to infusion active [...] Flonase Allergy Relief 50 mcg/actua tion nasal spray,gabyb pension 1 spray each side 2 times a day 11/25 completed Not Available Not Available Not Available doxycycli ne hyclate 50 mg tablet 1 tab daily 09/25 completed Not Available Not Available Not Available albuterol 90 mcg-budes onide 80 mcg/actua tion HFA aerosol inhaler Inhale 2 inhalati ons 4 times a day by inhalati on route as needed. active Rx by [facility] pulmonol ogy Not Available Not Available Not Available Vitals Date Recorded Body height Body mass index (BMI) Body weight Heart rate Oxygen saturation Oxygen saturation in Arterial blood by Pulse oximetry Systolic blood pressure Diastolic blood pressure Provider Name and Address Organization Details Last Updated DateTime 4 180.34 cm 29.1 kg/m2 64422.8 1 g 75 /min 87 % 87 % 140 mm[Hg] 72 mm[Hg] Ruthie Ring [facility] 4 09:35:33 Social History Question Answer Notes LastModified by Organizat ion Details LastModified Time Tobacco Smoking Status Never Smoker YAZAN Beaulieu, [facility]. 11/19/2023 11:03:00 What Was The Date Of Your Most Recent Tobacco Screening? 11/19/2023 [email or web address] Information not available 11/19/2023 Has Tobacco Cessation Counseling Been Provided? No [email or web address] Information not available 11/19/2023 Do You Or Have You Ever Used Any Other Forms Of Tobacco Or Nicotine? No [email or web address] Information not available 11/19/2023 Sex: Male Functional [...] preservative free, adsorbed 06/14/2020 completed Not Available [facility] 07/12/2023 04:58:16 Tdap 05/08/2012 completed Not Available [facility] 04:58:16 Pneumococcal conjugate PCV 13 06/26/2016 completed Not Available [facility] 07/12/2023 04:58:17 Influenza, high-dose, trivalent, PF 06/04/2018 completed Not Available [facility] 07/12/2023 04:58:18 Influenza, split virus, trivalent, preservative 05/23/2016 completed Not Available [facility] 07/12/2023 04:58:18 Influenza, split virus, trivalent, preservative 05/26/2015 completed Not Available [facility] 07/12/2023 04:58:19 Influenza, high-dose, quadrivalent, PF 06/30/2020 completed Not Available [facility] 07/12/2023 04:58:20 Influenza, high-dose, quadrivalent, PF 06/30/2021 completed Not Available [facility] 07/12/2023 04:58:21 Influenza, high-dose, quadrivalent, PF 07/06/2022 completed Not Available [facility] 07/12/2023 04:58:21 COVID-19, mRNA, LNP-S, PF, 100 mcg/0.5mL dose or 50 mcg/0.25mL dose 11/07/2020 completed Not Available [facility] 07/12/2023 04:58:21 COVID-19, mRNA, LNP-S, PF, 100 mcg/0.5mL dose or 50 mcg/0.25mL dose 12/05/2020 completed Not Available [facility] 07/12/2023 04:58:22 COVID-19, mRNA, LNP-S, PF, 100 mcg/0.5mL dose or 50 mcg/0.25mL dose 12/26/2021 completed Not Available [facility] 07/12/2023 04:58:22 COVID-19, mRNA, LNP-S, PF, 100 mcg/0.5mL dose or 50 mcg/0.25mL dose 06/30/2021 completed Not Available [facility] 07/12/2023 04:58:22 COVID-19, mRNA, LNP-S, bivalent, PF, 30 mcg/0.3 mL dose 07/06/2022 completed Not Available [facility] 07/12/20 04:58:23 pneumococcal polysaccharide PPV23 09/07/2014 completed Not Available [facility] 2022 04:58:23 influenza, unspecified formulation 05/20/2014 completed Not Available [facility] 07/12/2023 04:58:24 influenza, unspecified formulation 06/05/2017 completed Not Available [facility] 07/12/2023 04:58:24 influenza, unspecified formulation 07/02/2019 completed Not Available [facility] 07/12/2023 04:58:26 Influenza, high-dose, quadrivalent, PF 05/14/2023 completed Not Available [facility]/13/[facility]23 05:31:41 COVID-19, mRNA, LNP-S, PF, jonathan-sucrose, 30 mcg/0.3 mL 08/21/2023 completed Perico Quiroz MA [place], [place] - [facility]. 08/21/2023 10:07:33 Past Encounters Encounter ID Performer Location Encounter Start Date Encounter Closed Date Diagnosis/Indication Diagnosis SNOMED-CT Code [id number] LEE MENESES MD [address] [address] 02/11/2024 09:18:07 02/11/2024 10:20:49 Hypercalcemia [id number] Cardiomyopathy [id number] Disorder o f skin and/or subcutaneous tissue [id number] Benign pro static hyperplasia with outflow obstruction [id number] Chronic cough [id number] Hypothyroidism [id number] Health Concerns Section Related Observation LastModified by Organization Detai ls LastModified Time None Recorded Concern Status LastModified by Organization Details LastModified Time None Recorded Payers Encounter Date Sequence Insurance Name Policy Number Policy Cervantes Covered Member ID Cervantes Member ID Guarantor Name 02/11/2024 1 [employer] (MEDICARE REPLACEMENT/ ADVANTAGE - PPO) Wesly Ybarra [id number] Wesly Ybarra
--- OUTSIDE RECORDS SUMMARY | 2024-04-24 21:05 | XMS_ITS | Encounter Summary ---
[facility] Organization [facility] [place] [address] Care Team Providers Care Food Service Driver Name Role Phone Arelis Michele MD Primary Care Provider [phone] Reason for Visit * Treatment/Therapy Plan Authorization (Routine) - Closed Specialty Diagnoses / Procedures Referred By Azam corbett Referred To Contact Diagnoses Rheumatoid arthritis, involving unspecified site, unspecified whether rheumatoid factor present Procedures inf Alice Carney, NON GARMENT SEWING MACHINE OPERATOR [facility] [address] [facility] Med Infusion [address] [place] [id number] Referral ID Status Reason Start Date Expiration Date Visits Re quested Visits Authorized [id number] Closed 12/08/2021 12/08/2022 99 99 Encounter Details Date Type Department Care Team (Latest Contact Info) Description 10/09/2022 11:53 AM EST - 10/09/2022 11:59 PM EST Hospital Encounter [place] [address] Rheumatoid arthritis, involving unspecified site, [...] Preparation/Maintenance site cleansed: 70% alcohol;dressing: transparent semipermeable [id number]/07/23 1220 Patency/Maintenance flushed without difficulty;blood return, able [...] Contact Info) Description 04/28/2024 12:00 PM EDT Hospital Encounter [place] [address] 05/14/2024 1:00 PM EDT Office Visit Dermatology at [address] [phone] 08/18/2024 10:00 AM EST Office [place] [phone] Alice Carney APRN [facility] [address] 08/18/2024 12:00 PM EST Appointment [place] [phone] 12/08/2024 12:00 PM EDT Appointment [place] [phone] documented as of this encounter Visit Diagnoses [...] mg documented in this encounter Care Teams Food Service Driver Relationship Specialty Start Date End Date Arelis Michele MD [address] [place] [address] PCP - General Family Medicine 08/01/18 02/11/24 documented as of this encounter
--- OUTSIDE RECORDS SUMMARY | 2024-04-24 21:05 | XMS_ITS | Encounter Summary ---
Author Organization [facility] [place] [address] Care Team Providers Care Actor Understudy Name Role Phone Arelis Michele MD Primary Care Provider [phone] Encounter Details Date Type Department Care Team (Late st Contact Info) Description 10/01/2022 Hospital Encounter [place] [phone] Solitario Moody MD [facility] [place] [address] Social History Tobacco Use Types Packs/Day Years [...] PM EDT Hospital En[place] [phone] 05/14/2024 1:00 PM EDT Office Visit Dermatology at [facility] [address] [place] [address] 08/18/2024 10:00 AM EST Office [place] [phone] Alice Carney, SUPERVISOR [employer] [facility] [place] [address] 08/18/2024 12:00 PM EST Appointment [place] [phone] 12/08/2024 12:00 PM EDT [place]oint[place] [phone] documented as of this encounter Visit Diagnoses Not on filedocumented in this encounter Care Teams Actor Understudy Relationship Specialty Start Date End Date Arelis Michele MD [address] [place] [address] PCP - General Family Medicine 02/12/24 documented as of this encounter
--- OUTSIDE RECORDS SUMMARY | 2024-04-24 21:05 | XMS_ITS | Encounter Summary ---
Author Organization [facility] [place] [address] Care Team Providers Care Crm Solution Architect Name Role Phone Arelis Michele MD Primary Care Provider [phone] Reason for Visit * Reason Comments Follow-up Encounter Details Date Type Department Care Team (Late st Contact Info) Description 11/07/2022 10:00 AM EST Office Visit [place] [address] Alice Carney, CAMELID FIBER S[facility]TER [facility] [place] [address] High risk medication use; Rheumatoid arthritis with [...] it would be helpful to see an gvw-snsb-prlvjp (ENT) specialist for this and also foryour [...] resumption of Rituxan (received Ruxience) 03/2021 at [facility]. He could not continue with RTX due to ymo-he-xjvvym cost then was able to resume name brand Rituxan via [employer] 2021 with benefit to joints. ?? Orencia tried [id number] and stopped due to lack of efficacy [...] 1000 mg IV Q16W infusion resumed at [facility] -- next infusion cancelled due to unaffordable hbv-di-oevgiy cost. ?? Plan was to start Xeljanz 07/2021 given limited options available to patient for treatment givenmedical history and co-morbidities after communication via [facility] with Wesly Munoz MD, in cardiology. He never started it due to concerns about black box warnings. ?? Started leflunomide 10 mg daily 10/2021 while investigating [employer] Rituxan medication assistance program. No improvement with [...] take NSAIDS per cardiology. CAD and CMP: [facility] Cardiology OV notes from 09/27/2020 [...] R hemidiaphragm. Vinayak-diaphragm, ZEPEDA, wheezing: Comprehensive work-up [facility] pulmonology (last OV 08/2020) with no clear diagnosis. Responds to nebulizer treatment with unknown medication. Interval History: Current treatment for RA: Rituxan (name brand) 1000 mg Q4M per [employer] medication assistance program started 02/13/2022. Last infusion: [...] about TID. See ROS. Per 12/2021 OV: [employer] Rituxan medication assistance program was recently approved [...] persistent dyspnea which is ongoing and his tissue packer at [facility] ordered a repeat stress test which [...] is recovered well. He met his new tissue packer at [facility] 09/2021 and he is pleased with [...] I discussed this case briefly with his biopharmaceutical rep (though he did not review prior notes [...] Rheumatology nurse confirmed with ASHLEY Wise, that [facility] infusion labthat per their protocol, and [...] activity -- ongoing. Followed by cardiology at [facility]. Pulmonary: Denies hemoptysis. + SOB at rest at times with + ZEPEDA. Unremarkable work-up [facility] pulmonology. Nebulizer (med ?) helps. Sometimes uses [...] resection Osteoporosis with pathologic vertebral fracture per [facility] notes but not on file at [facility]. Physical Examination: BP 129/69 Pulse 67 Temp [...] (1000 mg Q4M via[employer] MAP) done at [facility]. He is tolerating infusions well without s/s fluid overload by his report. He would like to continue this treatment. Hold parameters reviewed. He gets labs done at [facility] 2 weeks before his infusion and knows to expect a letter from me re results and to contact me if he does not receive one. Osteoporosis with history of pathologic vertebral fracture: Per 10/2021 OV not discussed today: DEXAordered at 02/28/2021 office visit to be done at [facility] and not yet done. Continue with [...] it would be helpful to see an xzg-cnby-sxjfvj (ENT) specialist for this and also foryour [...] PM EDT Hospital Encounter [place] [address] 05/14/2024 1:00 PM EDT Office Visit Dermatology at [facility] [address] [place] [address] 08/18/2024 10:00 AM EST Office Visit [place] [address] [facility] [place] [place] [address] 08/18/2024 12:00 PM EST Appointment [place] [address] 12/08/2024 12:00 PM EDT Appointment [place] [address] documented as of this encounter Visit Diagnoses Diagnosis High risk medication use Encounter for long-term (current) use of other medications Rheumatoid arthritis with positive rheumatoid factor, involving unspecified site ZEPEDA (dyspnea on exertion) Other dyspnea and respiratory abnormality documented in this encounter Care Teams Crm Solution Architect Relationship Specialty Start Date End Date Arelis Michele MD [address] [place] [address] PCP - General Family Medicine 08/01/18 02/11/24 documented as of this encounter
--- OUTSIDE RECORDS SUMMARY | 2024-04-24 21:05 | XMS_ITS | Encounter Summary ---
Author Organization [facility] [place] [address] Care Team Providers Care Independent Distributor Name Role Phone Arelis Michele MD Primary Care Provider [phone] Encounter Details Date Type Department Care Team (Late st Contact Info) Description 02/05/2023 10:00 AM EDT Office [place] [address] Alice Carney HAZARDOUS MATERIAL TECHNICIAN [facility] [place] [address] High risk medication use; Rheumatoid arthritis with [...] resumption of Rituxan (received Ruxience) 03/2021 at [facility]. He could not continue with RTX due to kgx-tg-nayysd cost then was able to resume name brand Rituxan via [employer] 2021 with benefit to joints. Orencia tried [id number] and stopped due to lack of efficacy [...] 1000 mg IV Q16W infusion resumed at [facility] -- next infusion cancelled due to unaffordable pyl-tf-zvoqav cost. Plan was to start Xeljanz 07/2021 given limited options available to patient for treatment given medical history and co-morbidities after communication via ED with Wesly Munoz MD, in cardiology. He never started it due to concerns about black box warnings. Leflunomide 10 mg daily started 10/2021 while investigating [employer] medication assistance program. No improvement with leflunomide [...] take NSAIDS per cardiology. CAD and CMP: [facility] Cardiology OV notes from 09/27/2020 (Wesly Munoz MD) reviewed 02/28/2021. CAD: s/p CABG (Patient Denies!) and s/p mid LAD stent March 2019. Additional workup with CPET planned at [facility] for eval of ongoing SOB (Patient says [...] with cardiology. Vinayak-diaphragm, ZEPEDA, wheezing: Comprehensive work-up [facility] pulmonology (last OV 08/2020) with no clear diagnosis. Responds to nebulizer treatment with unknown medication. Interval History: Current treatment for RA: Rituxan (name brand) 1000 mg Q4M per [employer] medication assistance program started 02/13/2022. Last infusion: [...] know the results. Followed by ophthalmology at [facility] for what he describes is a black spot behind his right eye. It is currently being watched and if it enlarges there is potential concern for melanoma. He says his mat gauger is aware that he is on Rituxan [...] remote injury. See ROS. Per 12/2021 OV: [employer] Rituxan medication assistance program was recently approved [...] persistent dyspnea which is ongoing and his custom tailor apprentice at [facility] ordered a repeat stress test [...] is recovered well. He met his new custom tailor apprentice at [facility] 09/2021 and he is pleased with her [...] I discussed this case briefly with his senior program manager (though he did not review prior notes [...] with fluid overload. Note that on 03/21/2021 [facility] Rheumatology nurse confirmed with ASHLEY Wise, that [facility] infusion labthat per their protocol, and [...] activity -- ongoing. Followed by cardiology at [facility]. Pulmonary: Denies hemoptysis. + SOB at rest at times with + ZEPEDA. Unremarkable work-up [facility] pulmonology. Nebulizer (med ?) helps. Sometimes uses [...] resection Osteoporosis with pathologic vertebral fracture per [facility] notes but not on file at [facility]. Physical Examination: BP 144/79 (BP Location (NBP): [...] CMP. CRP 0.53 (ULN 0.3). ESR 4. [facility] 05/22/2022: Normal CMP and CBC. Mildly elevated CRP at 0.98 (ULN 0.3) with normal ESR at 2. [facility] 06/07/2021: unremarkable CBC, CMP, ESR, CRP. Negative Hepatitis B/C and TB Quant Gold screening. [facility] 03/2021: unremarkable CBC, CMP ASSESSMENT/RECOMMENDATIONS: Seropositive rheumatoid arthritis: Good control since initiation of Rituxan 01/2022 (1000 mg Q4M via[employer] MAP) done at [facility]. He is tolerating infusions well without s/s fluid overload by his report. He would like to continue this treatment. Hold parameters reviewed. [facility] and knows [...] to cardiology. Plan: Continue Rituxan Q4M at [facility]. Labs at [facility] 2 weeks before. If he cannot accomplish [...] MD CC: Qian Navarro MD , [facility] -- Dr. Navarro, I want [...] PM EDT Hospital En[place] [address] 05/14/2024 1:00 PM EDT Office Visit Dermatology at [facility] [address] [place] [address] 08/18/2024 10:00 AM EST Office [place] [address] Alice Carney APRN [facility] [place] [address] 08/18/2024 12:00 PM EST Appointment [place] [address] 12/08/2024 12:00 PM EDT [place] [address] documented as of this encounter Procedures Procedure [...] 11:07 AM EDT) Neutrophil % 59.5 % [facility] Neutrophil Absolute 4.81 1.70 - 6.10 x10(3)/[facility] Lymph % 27.9 % [facility] Lymphocytes Abs 2.3 0.9 - 3.2 x10(3)/[facility] Monocyte % 8.3 % [facility] Monocyte Abs 0.7 0.3 - 0.9 x10(3)/[facility] Eos % 3.6 % [facility] Eosinophils Abs 0.3 0.0 - 0.4 x10(3)/[facility] Basophil % 0.6 % [facility] Baso Absolute 0.0 0.0 - 0.1 x10(3)/[facility] Immature Gran % 0.10 % [facility] Comment: Immature granulocytes(IG's)percentage and absolute count will include metamyelocytes, myelocytes, and promyelocytes. Blood smears from CBCs yielding IG's will be scanned manually for concordance. If this scan disagrees with the automated IG or if promyelocytes are noted, a manual differential will be performed. Immature Gran Absolute 0.01 0.00 - 0.04 x10(3)/[facility] Blood 02/05/2023 11:0 7 AM EDT 02/05/2023 11:45 AM EDT Narrative Resulting Agency Comment Spec In Lab Alice Carney APRN HEMATOLOGY ORDERABLE S [facility] [place] [address] * (ABNORMAL) Hemogram (02/05/2023 11:07 AM EDT) White Blood Cell 8.1 4.0 - 9.5 x10(3)/mc L [facility] Red Blood Cell 5.38 4.58 - 5.54 x10(6)/mc L [facility] Hemoglobin 15.6 13.7 - 16.5 g/dL [facility] Hematocrit 49.4(H) 40.5 - 48.5 % [facility] Mean Cell Volume 91.8 82.9 - 93.1 fL [facility] Mean Cell Hemoglobin 29.0 27.5 - 32.1 pg [facility] Mean Cell Hemoglobin Concentration 31.6(L) 32.0 - 35.7 g/dL [facility] Platelet 261 145 - 357 x10(3)/mc L [facility] RDW Standard Deviation 43.9 36.0 - 45.0 fL [facility] RDW coefficient of variation 13.0 11.4 - 13.8 % [facility] Mean Platelet Volume 10.0 7.6 - 12.9 fL [facility] NRBC% auto 0.0 % [facility] NRBC Absolute 0.000 0.000 - 0.000 x10(3)/ L [facility] Blood 02/05/2023 11:0 7 AM EDT 02/05/2023 11:45 AM EDT Narrative Resulting Agency Comment Spec In Lab Alice Carney APRN HEMATOLOGY ORDERABLE S [facility] [place] [address] * Comprehensive metabolic panel (non-fasting) (02/05/2023 11:07 AM EDT) Glucose 95 65 - 199 mg/dL [facility] Comment:Diabetes: >=200 mg/d L plus symptoms Blood Urea Nitrogen 16 10 - 20 mg/dL [facility] Creatinine 0.95 0.80 - 1.50 mg/dL [facility] Sodium 143 135 - 145 mmol/L [facility] Potassium 4.2 3.5 - 5.0 mmol/L [facility] Comment: Please note: ??Patients with WBC >100,000 may have falsely elevated Potassium levels. ??For accurate Potassium quantification in these patients send serum separator tube (gold top) for subsequent determinations. ??Contact the Clinical Chemistry Laboratory if there are any questions. Chloride 107 98 - 107 mmol/L [facility] Carbon Dioxide 29 22 - 31 mmol/L [facility] Anion Gap 7 5 - 15 mmol/L [facility] Calcium 9.3 8.5 - 10.5 mg/dL [facility] Protein, Total 6.3 6.1 - 8.0 g/dL [facility] Albumin 4.0 3.2 - 5.2 g/dL [facility] Aspartate Aminotransferase 15 0 - 39 unit/L [facility] Alanine Aminotransferase 14 0 - 55 unit/L [facility] Alkaline Phosphatase 92 40 - 130 unit/L [facility] Bilirubin, Total 0.3 0.2 - 1.3 mg/dL [facility] Est Glomerular Filtration Rate 84 >=60 mL/min/1. 73 m?? [facility] Comment: This patient's estimated GFR [...] In Lab Alice Carney APRN CHEMISTRY ORDERABLES [facility] [place] [address] * (ABNORMAL) CRP, acute inflammation (02/05/2023 11:07 AM EDT) C-Reactive Protein 6.5(H) <=4.9 mg/L [facility] Blood 02/05/2023 11:0 7 AM EDT 02/05/2023 11:45 AM EDT Narrative Resulting Agency Comment Spec In Lab Alice Eliel Carney HAZARDOUS MATERIAL TECHNICIAN CHEMISTRY ORDERABLES [facility] [place] [address] * Sedimentation rate (02/05/2023 11:07 AM EDT) Sedimentation Rate Automated 4 3 - 46 mm/hr [facility] Comment: Effective August 12, 2019 new capillary photometric technology has resulted in a change in reference ranges. It is recommended that each ESR result be reviewed with its own age appropriate reference range. Blood 02/05/2023 11:0 7 AM EDT 02/05/2023 11:45 AM EDT Narrative Resulting Agency Comment Spec In Lab Alice Carney HAZARDOUS MATERIAL TECHNICIAN HEMATOLOGY ORDERABLE S Performing Organization Address City/[facility]/ZIP Co de Phone Number [facility] [place] [address] documented in this encounter Visit Diagnoses Diagnosis High risk medication use Encounter for long-term (current) use of other medications Rheumatoid arthritis with positive rheumatoid factor, involving unspecified site documented in this encounter Care Teams Independent Distributor Relationship Specialty Start Date End Date Arelis Michele MD [address] [place] [address] PCP - General Family Medicine 08/01/18 02/11/24 documented as of this encounter
--- OUTSIDE RECORDS SUMMARY | 2024-04-24 21:05 | XMS_ITS | Encounter Summary ---
Author Organization [facility] [place] [address] Care Team Providers Care Concrete Pump Operator Name Role Phone Arelis Michele MD Primary Care Provider [phone] Encounter Details Date Type Department Care Team (Late st Contact Info) Description 01/06/2024 Orders [place] [address] Alice Carney APRN [facility] [place] [address] Social History Tobacco Use Types Packs/Day Years [...] PM EDT Hospital Encounter [place] [phone] 05/14/2024 1:00 PM EDT Office Visit Dermatology at [facility] [address] [place] [address] 08/18/2024 10:00 AM EST Office [place] [address] Alice Carney, CLOAK ROOM ATTENDANT [facility] [place] [address] 08/18/2024 12:00 PM EST Appointment [place] [address] 12/08/2024 12:00 PM EDT Appointment [place] [address] documented as of this encounter Visit Diagnoses Not on filedocumented in this encounter Care Teams Concrete Pump Operator Relationship Specialty Start Date End Date Arelis Michele MD [address] [place] [address] PCP - General Family Medicine 08/01/18 02/11/24 documented as of this encounter
--- OUTSIDE RECORDS SUMMARY | 2024-04-24 21:05 | XMS_ITS | Encounter Summary ---
[place] [address] Care Team Providers Care Cut Lace Machine Operator Name Role Phone Arelis Michele MD Primary Care Provider [phone] Encounter Details Date Type Department Care Team (Late st Contact Info) Description 06/04/2022 Telephone [place] [phone] Bernie Ott MA Social History Tobacco Use [...] PM EDT Hospital Encounter [place] [address] 05/14/2024 1:00 PM EDT Office Visit Dermatology at [address] [place] [address] 08/18/2024 10:00 AM EST Office [place] [address] Alice Carney APRN [facility] [place] [address] 08/18/2024 12:00 PM EST Appointment [place] [address] 12/08/2024 12:00 PM EDT Appointment [place] [phone] documented as of this encounter Visit Diagnoses Not on filedocumented in this encounter Care Teams Cut Lace Machine Operator Relationship Specialty Start Date End Date Arelis Michele MD [address] [place] [address] PCP - General Family Medicine 08/01/18 02/11/24 documented as of this encounter
--- OUTSIDE RECORDS SUMMARY | 2024-04-24 21:05 | XMS_ITS | Encounter Summary ---
Author Organization [facility] [place] [address] Care Team Providers Care Electrical Equipment Assembler Name Role Phone Arelis Michele MD Primary Care Provider [phone] Encounter Details Date Type Department Care Team [...] PM EDT Hospital [place] [address] 05/14/2024 1:00 PM EDT Office Visit Dermatology at [address] [address] 08/18/2024 10:00 AM EST [place] [address] Alice Carney APRN [facility] [place] [address] 08/18/2024 12:00 PM [place] [address] 12/08/2024 12:00 PM EDT [place] [address] documented as of this encounter Visit Diagnoses Not on filedocumented in this encounter Care Teams Electrical Equipment Assembler Relationship Specialty Start Date End Date Arelis Michele MD [address] [place] [address] PCP - General Family Medicine 08/01/18 02/11/24 documented as of this encounter
--- OUTSIDE RECORDS SUMMARY | 2024-04-24 21:05 | XMS_ITS | Encounter Summary ---
[place] [address] Care Team Providers Care Health Plan Manager Name Role Phone Arelis Michele MD Primary Care Provider [phone] Encounter Details Date Type Department Care Team (Late st Contact Info) Description 12/11/2021 Telephone [place] [address] Stefany Rosales Social History Tobacco Use Types [...] PM EDT Hospital [place] [address] 05/14/2024 1:00 PM EDT Office Visit Dermatology at [facility] [address] [place] [address] 08/18/2024 10:00 AM EST [place] [address] Alice Carney, GUITAR REPAIR TECHNICIAN [facility] [place] [address] 08/18/2024 12:00 PM EST [place] [address] 12/08/2024 12:00 PM EDT [place] [address] documented as of this encounter Visit Diagnoses Not on filedocumented in this encounter Care Teams Health Plan Manager Relationship Specialty Start Date End Date Arelis Michele MD [address] [place] [address] PCP - General Family Medicine 08/01/18 02/11/24 documented as of this encounter
--- OUTSIDE RECORDS SUMMARY | 2024-04-24 21:05 | XMS_ITS | Encounter Summary ---
[place] [address] Care Team Providers Care Crop Research Scientist Name Role Phone Arelis Michele MD Primary Care Provider [phone] Encounter Details Date Type Department Care Team (Late st Contact Info) Description 06/25/2022 Telephone [place] [phone] Carmen Johnston RN Social History Tobacco Use [...] PM EDT Hospital Encounter [place] [address] 05/14/2024 1:00 PM EDT Office Visit Dermatology at [address] [address] 08/18/2024 10:00 AM EST Office Visit [place] [address] Alice Carney APRN [facility] [place] [address] 08/18/2024 12:00 PM EST Appointment [place] [address] 12/08/2024 12:00 PM EDT Appointment [place] [address] documented as of this encounter Visit Diagnoses Not on filedocumented in this encounter Care Teams Crop Research Scientist Relationship Specialty Start Date End Date Arelis Michele MD [address] [place] [address] PCP - General Family Medicine 08/01/18 02/11/24 documented as of this encounter
--- OUTSIDE RECORDS SUMMARY | 2024-04-24 21:05 | XMS_ITS | Encounter Summary ---
Author Organization [facility] [place] [address] Care Team Providers Care Warehouse Man Name Role Phone Arelis Michele MD Primary Care Provider [phone] Encounter Details Date Type Department Care Team (Late st Contact Info) Description 06/25/2021 [place] [address] Alice Carney, MIDDLE SCHOOL ART TEACHER [facility] [place] [address] Rheumatoid arthritis with positive rheumatoid factor, involving [...] this encounter Progress Notes * Alice Carney, MIDDLE SCHOOL ART TEACHER - 06/25/2021 4:49 PM EDT See letter. Orders routed to [facility]. Orders Placed This Encounter Procedures ??? [...] PM EDT Hospital [place] [address] 05/14/2024 1:00 PM EDT Office Visit Dermatology at [address] [address] 08/18/2024 10:00 AM EST [place] [address] Alice Carney APRN [facility] [place] [address] 08/18/2024 12:00 PM EST [place] [address] 12/08/2024 12:00 PM EDT [place] [address] documented as of this encounter Visit Diagnoses Diagnosis Rheumatoid arthritis with positive rheumatoid factor, involving unspecified site High risk medication use Encounter for long-term (current) use of other medications Hypercholesterolemia Pure hypercholesterolemia documented in this encounter Care Teams Warehouse Man Relationship Specialty Start Date End Date Arelis Michele MD [address] [place] [address] PCP - General Family Medicine 08/01/18 02/11/24 documented as of this encounter
--- OUTSIDE RECORDS SUMMARY | 2024-04-24 21:05 | XMS_ITS | Encounter Summary ---
Author Organization [facility] Demetri [facility] [place] [address] Care Team Providers Care Pet Counselor Name Role Phone Arelis Michele MD Primary Care Provider [phone] Reason for Visit * Reason Comments Follow-up Encounter Details Date Type Department Care Team (Late st Contact Info) Description 10/17/2021 9:00 AM EST Office [place] [address] Alice Carney MAGNETIC PROSPECTING SUPERVISOR [facility] [place] [address] Rheumatoid arthritis with positive rheumatoid factor, involving [...] x 3 then every 3 months (at [facility]). CBC = complete blood count (red and [...] I spoke with ASHLEY Wise, in [facility] infusion lab this morning -- last infusion was in 2017 for name brand Rituximab. ?? Orencia tried 7264-4214 and stopped due to lack of efficacy [...] mg IV Q16W infusion resumed at [facility] -- next infusion cancelled due to unaffordable awr-yj-dmbner cost. ?? Plan was to start Xeljanz [...] NSAID per cardiology CAD and CMP: [facility] Cardiology OV notes from 09/27/2020 (Wesly Munoz MD) reviewed 02/28/2021. ?? CAD: s/p CABG (Patient Denies!) and s/p mid LAD stent March 2019. Additional workup with CPET planned at [facility] for eval of ongoing SOB (Patient says [...] is recovered well. He met his new social sciences instructor at [facility] 09/2021 and he is pleased [...] I discussed this case briefly with his department mgr (though he did not review prior notes [...] with fluid overload. Note that on 03/21/2021 [facility] Rheumatology nurse confirmed with ASHLEY Wise, that [...] Osteoporosis with pathologic vertebral fracture per [facility] notes but not on file at [facility]. Physical Examination: Patient Vitals for the past [...] can on the L DATA: Labs: [facility] 06/07/2021: unremarkable CBC, CMP, ESR, CRP. Negative Hepatitis B/C and TB Quant Gold screening. [facility] 03/2021: unremarkable CBC, CMP ASSESSMENT/RECOMMENDATIONS: Seropositive rheumatoid arthritis: Currently symptomatic without treatment after marked improvementwith resumption of Rituxan (received Ruxience) 03/2021. He could not continue with RTX due to dnh-kz-iatccm cost. Options for treatment are limited due [...] SE/AE/dosing/length of time to onset/monitoring) and pursue [employer] patient assistance for Rituxan in the meantime. Osteoporosis with history of pathologic vertebral fracture: DEXA ordered at 02/28/2021 office visit to be done at [facility] and not yet done. Continue [...] x 3 then every 3 months (at [facility]). CBC = complete blood count (red and [...] PM EDT Hospital En[place] [address] 05/14/2024 1:00 PM EDT Office Visit Dermatology at [facility] [address] [place] [address] 08/18/2024 10:00 AM EST Office [place] [address] Alice Carney APRN [facility] [place] [address] 08/18/2024 12:00 PM EST App[place] [address] 12/08/2024 12:00 PM EDT [place] [address] documented as of this encounter Visit Diagnoses Diagnosis Rheumatoid arthritis with positive rheumatoid factor, involving unspecified site High risk medication use Encounter for long-term (current) use of other medications documented in this encounter Care Teams Pet Counselor Relationship Specialty Start Date End Date Arelis Michele MD [address] [place] [address] PCP - General Family Medicine 08/01/18 02/11/24 documented as of this encounter
--- OUTSIDE RECORDS SUMMARY | 2024-04-24 21:05 | XMS_ITS | Encounter Summary ---
[place] [address] Care Team Providers Care Ultrasound Tech Name Role Phone Arelis Michele MD Primary Care Provider [phone] Reason for Visit * Reason Comments Medication Management Rituximab (rituxan ) Encounter Details Date Type Department Care Team (Late st Contact Info) Description 11/04/2023 Specialty [place] [address] Mariela Ritter, [facility] Social [...] Mariela Ritter [facility] - 11/04/2023 12:33 PM EST Specialty Pharmacy Consultation; Mariela Ritter Jay Comprehensive Medication Management (CMM): Specialty Consult, Intervention Wesly Ybarra Diagnosis: Rheumatoid Arthritis Recommendation: Himanshu cano Kivivi is helping Wesly Ybarra receive free medication through [employer]. I sent the patient the application via [employer] (put in the mail on 11/04/23). We will get Alice Angelika's portion signed when she is back in office on 11/05/23. Outcome: Patient will fill out his signature and then send it back to us to send to [employer]. Specialty Pharmacy Intervention: Intervention Category (Nature of Intervention): Formulary Related/Financial Issues Formulary Related/Financial Issues: Referred to office-led MAP, Registered Nurse Prescriber accepted response (Prescriber accept Intervention): Accepted Mariela Ritter RPH 11/04/23 12:36 PM * Mariela Ritter [facility] - 11/04/2023 12:33 PM EST Provider portion signed and sent back to Isma Sam. 11/05/23 documented in this encounter Plan of Treatment Upcoming Encounters Date Type Department Care Team (Late st Contact Info) Description 04/28/2024 12:00 PM EDT Hospital En[place] [address] 05/14/2024 1:00 PM EDT Office Visit Dermatology at [address] [address] 08/18/2024 10:00 AM EST [place] [address] Alice Carney, FARM CROPS TEACHER [facility] [place] [address] 08/18/2024 12:00 PM EST [place] [address] 12/08/2024 12:00 PM EDT [place]oint[place] [address] documented as of this encounter Visit Diagnoses Not on filedocumented in this encounter Care Teams Ultrasound Tech Relationship Specialty Start Date End Date Arelis Michele MD [address] [place] [address] PCP - General Family Medicine 08/01/18 02/11/24 documented as of this encounter
--- OUTSIDE RECORDS SUMMARY | 2024-04-24 21:05 | XMS_ITS | Clinical Summary ---
Author Organization [facility] [place] [facility] [place] [address] Care Team Providers Care Medicine Man Name Role Phone Arelis Michele MD Primary Care Provider [phone] Allergies Active Allergy Reactions Criticality Noted Date [...] both eyes 4 times daily. 06/06/2023 Active rituximab (RITUXAN IV) every 16 weeks at [facility]. Labs 1-2 weeks prior to infusion Active Active Problems Problem Noted Date Diagnosed [...] 01/18/2011 Overview (01/18/2011): ?? Osteopenia, DXA at [facility] in 06/2007. ?? Right wrist fracture (1962); [...] Encounters Date Type Department Care Team Description 04/24/2024 11:30 AM EDT TH Visit (TeleHealth) [place] [address] Alice Carney APRN Rheumatoid arthritis with positive rheumatoid factor, involving unspecified site; High risk medication use 04/24/2024 [place] [address] Guerline Ruano RN from Last 3 Months Immunizations Name Administration [...] PM EDT Hospital [place] [address] 05/14/2024 1:00 PM EDT Office Visit Dermatology at [facility] [address] [place] [address] 08/18/2024 10:00 AM EST [place] [address] Alice Carney, TWIST TESTER [facility] [place] [address] 08/18/2024 12:00 PM EST [place] [address] 12/08/2024 12:00 PM EDT [place] [address] Health Maintenance Due Date Last Done Comments CT Colonography 1948 FIT DNA 1948 FIT 1950 Sigmoidoscopy 1950 Hepatitis C Screening 1966 Tdap adult 1967 Zoster vaccine (1 of 2) 1998 Advance Directive 2003 Tetanus vaccine 05/08/2022 05/08/2012, 09/03, 07/03/1996 Colonoscopy 09/30/2022 09/30/2019, 09/03, 09/30/2019, Additional history exists Colorectal Cancer Screening 09/30/2022 Covid-19 Vaccine (2022-2 4 season) 2023 08/21/2023, 07/06/2022, 12/26/2021, Additional [...] * COLONOSCOPY (09/30/2019 9:26 AM EST) COLONOSCOPY [facility] Endoscopy Procedure Date: 09/30/2019 9:26 AM ? Patient Name: Wesly Lacey ? Date of : 1950 ? Age: 68 ? Order #: [id number] ? Instrument Name: -[id number] ? Procedure: ? Colonoscopy Indications: ? High risk colon cancer surveillance: ? Personal history of colonic polyps Providers: ? Solitario Moody, Tara Peter, ? ASHLEY, Uriah Gilbert MD: ?Arelis Michele MD Medicines: [...] Documents on File Type Date Recorded Patient Rifle Case Repairer Expl anation Personal Rifle Case Repairer 08/08/2018 4:20 PM abigail sellers and carroll lacey * Full Code (Latest Code Status on File) Date Activated Date Inactivated Comments 03/20/2019 1:12 PM 03/21/2019 11:45 AM Question Answer Comments Does patient have capacity to make decision: Yes * Full Code Date Activated Date Inactivated Comments 03/20/2019 10:30 AM 03/20/2019 1:12 PM Question Answer Comments Does patient have capacity to make decision: Yes Care Teams Medicine Man Relationship Specialty Start Date End Date Arelis Michele MD [address] [place] [address] PCP - General Family Medicine 02/12/24
--- OUTSIDE RECORDS SUMMARY | 2024-04-24 21:05 | XMS_ITS | Encounter Summary ---
[place] [address] Care Team Providers Care Bottle Labeler Name Role Phone Arelis Michele MD Primary Care Provider Reason for Visit * Reason Comments Medication Refill Medication Management Encounter Details Date Type Department Care Team (Late st Contact Info) Description 08/07/2021 Specialty Pharmacy [place] [address] Sami Shore [facility] Social History Tobacco Use [...] Progress Notes * Sami Shore [facility] - 08/07/2021 2:45 PM EST Specialty Pharmacy Consultation; Sami Shore [facility] Comprehensive Medication Management (CMM) Wesly Rutherford Cyndie [...] generally related to heart rhythm/heart rate. His route service manager is aware that he is taking Xeljanz. [...] services: Yes Patient accepted offer to certified alcohol counselor: select all, adherence/missed doses, cost of [...] to doctor discussed, reminder to refill or last picker medication discussed, self-monitoring discussed, start medication [...] Social Assessment: Does patient have a primary home care giver: No Does patient have an emergency contact on file: Yes Does patient need referral to social sciences professor: No Does patient need referral to advocacy [...] at the appointment and that [facility] isproviding recommendations (summary located at top of note) for provider review and follow up. Sami Shore [facility] 08/07/21 2:59 PM documented in this encounter Plan of Treatment Upcoming Encounters Date Type Department Care Team (Late st Contact Info) Description 04/28/2024 12:00 PM EDT Hospital Encounter [place] [address] 05/14/2024 1:00 PM EDT Office Visit Dermatology at [place] [address] [place] [address] 08/18/2024 10:00 AM EST Office Visit [place] [address] Alice Carney, [facility] [place] [address] 08/18/2024 12:00 PM EST Appointment [place] [address] 12/08/2024 12:00 PM EDT Appointment [place] [address] documented as of this encounter Visit Diagnoses Not on filedocumented in this encounter Care Teams Bottle Labeler Relationship Specialty Start Date End Date Arelis Michele MD [address] [place] [address] PCP - General Family Medicine 08/01/18 02/11/24 documented as of this encounter
--- OUTSIDE RECORDS SUMMARY | 2024-04-24 21:05 | XMS_ITS | Encounter Summary ---
Author Organization [facility] [place] [address] Care Team Providers Care Community Chest Officer Name Role Phone Arelis Michele MD Primary Care Provider [phone] Reason for Visit * Treatment/Therapy Plan Authorization (Routine) - Closed Specialty Diagnoses / Procedures Referred By Azam corbett Referred To Contact Rheumatology Diagnoses Rheumatoid arthritis, involving unspecified site, unspecified whether rheumatoid factor present Procedures INFUSION THERAPY TC RITUXIMAB, 10MG INJECTION Alice Carney [facility] [place] [address] Alice Carney [facility] [place] [address] Referral ID Status Reason Start Date Expiration Date Visits Re quested Visits Authorized [id number] Closed 01/10/2023 01/10/2024 99 101 Encounter Details Date Type Department Care Team (Latest Contact Info) Description 05/28/2023 11:29 AM EDT - 05/28/2023 11:59 PM EDT Hospital Encounter [place] [address] Rheumatoid arthritis, involving unspecified site, unspecified whether [...] PM EDT Hospital Encounter [place] [address] 05/14/2024 1:00 PM EDT Office Visit Dermatology at [address] [place] [address] 08/18/2024 10:00 AM EST Office [place] [address] Alice Carney, [facility] [place] [address] 08/18/2024 12:00 PM EST Appointment [place] [address] 12/08/2024 12:00 PM EDT Appointment [place] [address] documented as of this encounter Visit Diagnoses [...] mg documented in this encounter Care Teams Community Chest Officer Relationship Specialty Start Date End Date Arelis Michele MD [address] [place] [address] PCP - General Family Medicine 08/01/18 02/11/24 documented as of this encounter
--- OUTSIDE RECORDS SUMMARY | 2024-04-24 21:05 | XMS_ITS | Encounter Summary ---
[place] [address] Care Team Providers Care Engineering Specialist Name Role Phone Arelis Michele MD Primary Care Provider [phone] Reason for Visit * Reason Comments Medication Management Encounter Details Date Type Department Care Team (Late st Contact Info) Description 08/23/2021 Specialty [place] [address] Mariela Ritter, [facility] Social History Tobacco Use Types [...] encounter Progress Notes * Mariela Ritter [facility] - 08/23/2021 7:37 AM EST Clinical Management Plan: Transfer of Care/Discharge Specialty Services Specialty Pharmacy Consultation; Mariela Ritter [facility] Comprehensive Medication Management (CMM) Wesly Ybarra [address] [facility] [address] Telephone Information: Work Phone Not on file. [...] PM EDT Hospital [place] [address] 05/14/2024 1:00 PM EDT Office Visit Dermatology at [address] [address] 08/18/2024 10:00 AM EST [place] [address] Alice Carney, OUTER DIAMETER [facility] [place] [address] 08/18/2024 12:00 PM EST [place] [address] 12/08/2024 12:00 PM EDT [place] [address] documented as of this encounter Visit Diagnoses Not on filedocumented in this encounter Care Teams Engineering Specialist Relationship Specialty Start Date End Date Arelis Michele MD [address] [place] [address] PCP - General Family Medicine 08/01/18 02/11/24 documented as of this encounter
--- OUTSIDE RECORDS SUMMARY | 2024-04-24 21:05 | XMS_ITS | Encounter Summary ---
Author Organization Formerly [facility] [place] [address] Care Team Providers Care Outsewer Name Role Phone Arelis Michele MD Primary Care Provider [phone] Reason for Visit * Reason Comments Follow-up Encounter Details Date Type Department Care Team (Late st Contact Info) Description 05/28/2023 11:00 AM EDT Office [place] [address] Alice Carney, MEDIATOR [facility] [place] [address] High risk medication use; Rheumatoid arthritis with [...] encounter Progress Notes * Angelika Alice E, MEDIATOR - 05/28/2023 11:00 AM EDT Rheumatology Follow-up [...] Currently treated with name brand Rituxan via [email or web address] 2021 with benefit to joints. Treatment considerations: See 02/05/23 OV for extensive review. Cannot take NSAIDS per cardiology. CAD and CMP: [facility] Cardiology OV notes from 09/27/2020 (Wesly Munoz MD) reviewed 02/28/2021. CAD: s/p CABG (Patient Denies!) and s/p mid LAD stent March 2019. Additional workup with CPET planned at [facility] for eval of ongoing SOB. No ischemia [...] with cardiology. Vinayak-diaphragm, ZEPEDA, wheezing: Comprehensive work-up [facility] pulmonology (last OV 08/2020) with no clear diagnosis. Responds to nebulizer treatment with unknown medication. Interval History: Current treatment for RA: Rituxan (name brand) 1000 mg Q4M per [employer] medication assistance program started 02/13/2022. Last [...] No fluid overload. Followed by ophthalmology at [facility] for what he describes is a black spot behind his right eye. It is currently being watched and if it enlarges there is potential concern for melanoma. After Mr. Ybarra's 01/2023 OV I reached out to his haul driver (Qian Navarro MD, [facility])re Rituxan (documented in the [...] activity -- ongoing. Followed by cardiology at [facility]. Pulmonary: Denies hemoptysis, purulent sputum. + intermittent cough ongoing with no clear dx. . + SOB at rest at times with + ZEPEDA. Unremarkable work-up [facility] pulmonology. Nebulizer (med ?) helps. Sometimes uses [...] resection Osteoporosis with pathologic vertebral fracture per [facility] notes but not on file at [facility]. Physical Examination: BP 138/73 Pulse 67 Temp [...] Abs 0.01 0.00 - 0.04 x10(3)/mcL 09/26/22 [facility]: Unremarkable CBC and CMP. CRP 0.53 (ULN 0.3). ESR 4. [facility] 05/22/2022: Normal CMP and CBC. Mildly elevated CRP at 0.98 (ULN 0.3) with normal ESR at 2. [facility] 06/07/2021: unremarkable CBC, CMP, ESR, CRP. Negative Hepatitis B/C and TB Quant Gold screening. [facility] 03/2021: unremarkable CBC, CMP ASSESSMENT/RECOMMENDATIONS: Seropositive rheumatoid arthritis: Good control since initiation of Rituxan 01/2022 ([facility] done at [facility]. He is tolerating infusions well without s/s fluid overload by his report. He would like to continue this treatment. Hold parameters again reviewed. He forgot to get his usual labs done at [facility] 2 weeks before his infusion and [...] be fine. Plan: Continue Rituxan Q4M at [facility]. Labs at [facility] 2 weeks before. If he cannot [...] PM EDT Hospital En[place] [address] 05/14/2024 1:00 PM EDT Office Visit Dermatology at [address] [address] 08/18/2024 10:00 AM EST Office [place] [address] Alice Carney APRN [facility] [place] [address] 08/18/2024 12:00 PM EST [place] [address] 12/08/2024 12:00 PM EDT [place] [address] documented as of this encounter Visit Diagnoses Diagnosis High risk medication use Encounter for long-term (current) use of other medications Rheumatoid arthritis with positive rheumatoid factor, involving unspecified site documented in this encounter Care Teams Outsewer Relationship Specialty Start Date End Date Arelis Michele MD [address] [place] [address] PCP - General Family Medicine 08/01/18 02/11/24 documented as of this encounter
--- OUTSIDE RECORDS SUMMARY | 2024-04-24 21:05 | XMS_ITS | Encounter Summary ---
Author Organization [facility] [place] [address] Care Team Providers Care Metal Tile Lather Name Role Phone Arelis Michele MD Primary Care Provider [phone] Encounter Details Date Type Department Care Team (Latest Contact Info) Description 08/18/2021 11:00 AM EST TH Visit (TeleHealth) [place] [address] Alice Carney APRN [facility] [place] [address] Rheumatoid arthritis with positive rheumatoid factor, involving [...] pharmacy and was advised that you did tow picker the antibiotic prescribed by pulmonology last [...] discuss your concerns about Xeljanz with your asset protection agent as I suspect you will need toreconsider taking it after a trial of methotrexate. Follow up telephone visit 10/19/2021 at 9AM. documented in this encounter Progress Notes * Alice Carney APRN - 08/18/2021 11:00 AM EST Rheumatology Follow-up Visit TELEPHONE VISIT This visit was conducted via telephone due to [employer] restrictions. I advised Leeanne Rutherford Cyndie thatthis [...] overload. I spoke with ASHLEY Wise, in [facility] infusion lab this morning -- last [...] 1000 mg IV Q16W infusion resumed at [facility] -- next infusion cancelled due to unaffordable kxa-gy-bmilks cost. ?? Plan was to start Xeljanz 07/2021 given limited options available to patient for treatment givenmedical history and co-morbidities after communication via [facility] with Leeanne Munoz MD, in cardiology. Treatment considerations: 02/14/2021 Denied hx blood clots. + Hx diverticulitis with 18 bowel resected. + CMP. SOB/ZEPEDA -- multifactorial as noted elsewhere. He has not tried Humira or Remicade (concern for CHF), Actemra (contraindicated), JAKs. Cannot take NSAID per cardiology CAD and CMP: [facility] Cardiology OV notes from 09/27/2020 (Leeanne Munoz MD) reviewed 02/28/2021. ?? CAD: s/p CABG (Patient Denies!) and s/p mid LAD stent March 2019. Additional workup with CPET planned at [facility] for eval of ongoing SOB (Patient says [...] throat that nobody can figure out. Last [facility] pulmonology evaluation 08/2020 at [facility] with notes reviewed: Leeanne Agee??is a 67 [...] with fluid overload. Note that on 03/21/2021 [facility] Rheumatology nurse confirmed with ASHLEY Wise, that [facility] infusion labthat per their protocol, [...] resection Osteoporosis with pathologic vertebral fracture per [facility] notes but not on file at [facility]. Physical Examination: Not done (telephone visit) Patient [...] Knees: Crepitus and FROM bl DATA: Labs: [facility] 03/2021 unremarkable CBC, CMP Results for [...] could not continue with RTX due to gkr-mi-hbkxng cost. Options for treatment are limited due [...] isosorbide). Note that I communicated with his asset protection agent (Dr. Munoz) via internal staffmessage in the [...] I discussed this case briefly with his ship officer (though he did not review prior notes [...] 02/28/2021 office visit to be done at [facility] and not yet done. Continue with vit d supplementation, avoiding calcium supplementation due to kidney stones. Continue with weightbearing activity as tolerated. Follow up telephone visit scheduled for 10/19/2020 at 11AM. Patient Instructions I called your pharmacy and was advised that you did tow picker the antibiotic prescribed by pulmonology last [...] discuss your concerns about Xeljanz with your asset protection agent as I suspect you will need toreconsider [...] PM EDT Hospital [place] [phone] 05/14/2024 1:00 PM EDT Office Visit Dermatology at [facility] [address] [place] [address] 08/18/2024 10:00 AM EST [place] [address] Alice Carney APRN [facility] [place] [address] 08/18/2024 12:00 PM EST [place] [address] 12/08/2024 12:00 PM EDT [place] [address] documented as of this encounter Visit Diagnoses Diagnosis Rheumatoid arthritis with positive rheumatoid factor, involving unspecified site High risk medication use Encounter for long-term (current) use of other medications documented in this encounter Care Teams Metal Tile Lather Relationship Specialty Start Date End Date Arelis Michele MD [address] [place] [address] PCP - General Family Medicine 08/01/18 02/11/24 documented as of this encounter
--- OUTSIDE RECORDS SUMMARY | 2024-04-24 21:05 | XMS_ITS | Encounter Summary ---
[facility] [place] [address] Care Team Providers Care Psych Social Worker Name Role Phone Arelis Michele MD Primary Care Provider Reason for Visit * Treatment/Therapy Plan Authorization (Routine) - Closed Specialty Diagnoses / Procedures Referred By Azam corbett Referred To Contact Diagnoses Rheumatoid arthritis, involving unspecified site, unspecified whether rheumatoid factor present Procedures inf Alice Carney, MUSIC WORKER [facility] [place] [address] [facility] Med Infusion [address] [place] [id number] Referral ID Status Reason Start Date Expiration Date Visits Re quested Visits Authorized [id number] Closed 12/08/2021 12/08/2022 99 99 Encounter Details Date Type Department Care Team (Latest Contact Info) Description 02/13/2022 9:22 AM EDT - 02/13/2022 11:59 PM EDT Hospital Encounter [place] [address] Rheumatoid arthritis, involving unspecified site, [...] His last infusion was last year at [facility], he states that he tolerated well. OBJECTIVE: Confirmed with Alice Carney APRN, Dr. Carney that patients last infusion was last year at [facility]. OK to continue with today's infusion, per [...] PM EDT Hospital Encounter [place] [address] 05/14/2024 1:00 PM EDT Office Visit Dermatology at [facility] [place] [address] 08/18/2024 10:00 AM EST Office [place] [address] Alice Carney, MUSIC WORKER [facility] [place] [address] 08/18/2024 12:00 PM EST Appointment [place] [address] 12/08/2024 12:00 PM EDT Appointment [place] [address] documented as of this encounter Visit Diagnoses [...] mg documented in this encounter Care Teams Psych Social Worker Relationship Specialty Start Date End Date Arelis Michele MD [address] [place] [address] PCP - General Family Medicine 08/01/18 02/11/24 documented as of this encounter
--- OUTSIDE RECORDS SUMMARY | 2024-04-24 21:05 | XMS_ITS | Encounter Summary ---
[place] [address] Care Team Providers Care Information Technology Audit Manager Name Role Phone Arelis Michele MD Primary Care Provider [phone] Encounter Details Date Type Department Care Team (Late st Contact Info) Description 12/14/2021 Telephone [place] [phone] Yumi Maxwell Social History Tobacco Use Types [...] PM EDT Hospital En[place] [address] 05/14/2024 1:00 PM EDT Office Visit Dermatology at [facility] [address] [place] [address] 08/18/2024 10:00 AM EST Office [place] [phone] Alice Carney, COUNSELOR SUPERVISOR [facility] [place] [address] 08/18/2024 12:00 PM EST [place] [phone] 12/08/2024 12:00 PM EDT [place] [address] documented as of this encounter Visit Diagnoses Not on filedocumented in this encounter Care Teams Information Technology Audit Manager Relationship Specialty Start Date End Date Arelis Michele MD [address] [place] [address] PCP - General Family Medicine 08/01/18 02/11/24 documented as of this encounter
--- OUTSIDE RECORDS SUMMARY | 2024-04-24 21:05 | XMS_ITS | Encounter Summary ---
Author Organization [facility] [place] [address] Care Team Providers Care Liquid Flavor Compounder Name Role Phone Arelis Michele MD Primary Care Provider [phone] Encounter Details Date Type Department Care Team (Latest Contact Info) Description 04/24/2024 11:30 AM EDT TH Visit (TeleHealth) [place] [address] Alice Carney, CARDIAC CATH LAB RADIOLOGY TECHNOLOGIST [facility] [place] [place] [address] [place] [address] Rheumatoid arthritis with positive rheumatoid factor, involving [...] Progress Notes * Alice Carney APRN - 04/24/2024 11:30 AM EDT Rheumatology Follow-up Visit TELEPHONE VISIT This visit was scheduled per my request and conducted via telephone due to patient preference re distance to travel and technology issues precluding video connection. ID: Wesly Infante Amada is a 73 y.o.male presenting for ongoing evaluation and management of seropositive rheumatoid arthritis on Rituxan. I have been following his care since 02/14/2021. Last OV: 09/17/23 Rheumatology History: Seropositive Rheumatoid Arthritis: 05/2002 (approx) sudden onset fatigue and aches in hands but whole body affected. Body wide joint aches for several months but then sudden onset of fatigue and hands joint aches. 03/2009: RF 181 & CCP>30 Treatments tried and discontinued: See 02/05/23 OV for detailed list of multiple treatments. Currently treated with name brand Rituxan via [employer] since 2021 with benefit to joints. Treatment considerations: See 02/05/23 OV for extensive review. Cannot take NSAIDS per cardiology. CAD and CMP: [facility] Cardiology OV notes from 09/27/2020 (Wesly Munoz MD) reviewed 02/28/2021. CAD: s/p CABG (Patient Denies!) and s/p mid LAD stent March 2019. Additional workup with CPET planned at [facility] for eval of ongoing SOB. No ischemia [...] with cardiology. Vinayak-diaphragm, ZEPEDA, wheezing: Comprehensive work-up [facility] pulmonology (last OV 08/2020) with no clear diagnosis. Responds to nebulizer treatment with unknown medication. Multiple specialists: Pulmonology @ [facility] Geneva Cruz MD (pt reports she is currently out on medical leave) and DONAVAN Garibay. PFTs planned. Cardiology @ [facility] Franck Edwards MD [facility] for eye issue concerning for possible melanoma (history melanoma skin hx). Qian Navarro MD, [facility]. Dermatology at [facility] hx melanoma. ENT at [facility]. Interval History: Current treatment for RA: Rituxan (name brand) 1000 mg Q16W per [employer] medication assistance program started 02/13/2022. Last infusion: 09/17/23 Next infusion: 04/28/24. Pre-meds: Tylenol 650 mg, loratadine 10 mg, SoluMedrol 100 mg IV. Mr. Ybarra is off track with infusions and office visits. Pneumonia 3 times this year. Says it goes away then he gets it back again. Sees juan alberto across street from [facility]. Last day of steroids is tomorrow. Hospitalized for a week in the winter. Says he completed a 2 weeks course of doxycycline about 10 days ago and completes prednisone tomorrow. Took for about 2 weeks bid plus prednisone. Feeling pretty good now. Saw [facility] early 04/[address] chest (does not know results). Also ill 08/05/23 with COVID infection -- he was sick for a month. Said at that time that he didn't have pneumonia. Generally feels pretty well and feels that he is well enough to proceed with infusion next week. Says he did not know he had infusion scheduled and is happy to have it. Feels like he needs infusion as he is a few months over-due. Hands are stiff and joints are swollen. Rituxan infusion tolerated well (denies fluid overload, worsening dyspnea, LE edema) and he is pleased overall re RA treatment. He says it has lessened the pain in his hands. Still has some mild stiffness for 30-45 minutes in the morning that resolves with activity at baseline when he is up to datewith infusions. He feels a bit more symptomatic starting about 2 weeks prior to infusion with symptoms are more prolonged as he approaches his next infusion (up to about an hour). Joints affected by RA: Hands: Mostly L MCP 2-3 -- stiff for 60+ minutes. Decreased dexterity. Symptoms without treatment: hands with AM curling/clenching and tightness for several hours. 2022 he noted he is slowing down a bit overall but still gets up to his camp regularly (though hasn't been able to fish in years because of difficulty with long walks). Lower back injury at work many years ago. Never had issues before that but felt better after the RTX and hasn't acted up since then. Followed by ENT regarding chronic sinus congestion and cough. No fevers, chills, purulent sputum ordischarge and he does not feel that he has an active infection. Review of Systems: General: Denies fevers, chills, night sweats, severe illness, recurrent infections, or recent hospitalizations. Normal appetite, stable weight. HEENT: Denies acute visual changes. Chronic sinus and eye issues as noted noted previously. Skin/nails: Per 06/2022 OV not discussed this visit: itchy rash in his groin. Cardiovascular: Denies chest pain, palpitations. + ZEPEDA with minimal activity -- ongoing. Followed by cardiology at [facility]. Pulmonary: Denies hemoptysis, purulent sputum. + intermittent cough ongoing with no clear dx. . + SOB at rest at times with + ZEPEDA. Unremarkable work-up [facility] pulmonology. Nebulizer (med ?) helps. Sometimes uses his albuterol inhaler. Now sees pulmonology at [facility]. See interval history. Gastrointestinal: Denies abdominal pain, nausea, vomiting, bowel [...] resection Osteoporosis with pathologic vertebral fracture per [facility] notes but not on file at [facility]. Physical Examination: Not done (telephone visit) Patient is alert and oriented, in no acute distress, speech clearly articulated in full sentences with unlabored breathing, pleasant affect. Pertinent findings noted at last in-person OV 09/2023: Lungs: CTA b/l except with decreased BS on R (c/w hemidiaphragm hx). Extremities: Hands: No synovitis but there is slight swelling and tenderness L index and middle MCP. Decreased claw bilaterally, normal fist. Mild + MCP compression tenderness on the L. DATA: 09/10/23 [facility]: unremarkable cbc, cmp, crp, esr. 06/07/2021 [facility]: Negative Hepatitis B/C and TB Quant Gold screening. Care Everywhere: 04/06/2024 CT imaging report Patient Name: Wesly Ybarra Unit #: [id number] Loc: DI Ordering Provider: Arelis Joya [id number] Status: REG I Primary Care Provider: Arelis Michele Date of Exam : 04/06/24 Sex: M : 1950 Age: 73 Exam(s) a CT:CT chest wo Exam(s) CT CHEST WO EXAM: CT CHEST WO CLINICAL HISTORY: follow up,recurrent infections,chronic cough,r05.3,b99.9. T ECHNIQUE: Multi planar reconstructions were performed. CONTRAST MATERIAL: None COMPARISON: CT CT CHEST WO from 11/05/2023 CR XR CHEST 2V PA LATERAL from 12/30/2023 CR XR CHEST 2V PA LATERAL from 01/08/2024 FINDINGS: CHEST: LUNGS: Right hemidiaphragm is again noted to be elevated. Previously described nonspecific increased markings in the right lung are unchanged. In the left lung there is a new nodular infiltrate in the apicoposterior segment of the left upper lobe which measures 2.4 cm wide by0.9 cm AP by 1.3 cm craniocaudal. There are no new focal findings in trachea and mainstem bronchi. There are no pleural effusions. MEDIASTINUM: There is no obvious hilar nor mediastinal adenopathy. No obvious axillary adenopathy CARDIAC: Heart size is normal. There is no pericardial effusion.Caliber of the thoracic aorta is within normal limits. VISUALIZED UPPER ABDOMEN:No adrenal masses. Small 2millimeter calculus noted in the right kidney. Left kidney not visualized. No splenomegaly. OSSEOUS: No significant osseous lesions.Nonacute appearing compression fracture of T12 noted. No acute fractures evident.. IMPRESSION: 1. There is a new 24 x 9 x 13 mm nodular infiltrate in the left upper lobe (apical posterior segment) which was not evident on CT scan of 11/05/2023. Recommend close follow-up to rule out malignancy. Recommend repeat CT scan in 3 months. 2. No pleural effusions nor obvious intrathoracic adenopathy. Ordered By: Arelis Joya CC ASSESSMENT/RECOMMENDATIONS: Seropositive rheumatoid arthritis: Good control since initiation of [facility]an 01/2022 ([facility] done at [facility]. He is tolerating infusions well without s/s fluid overload by his report. He would like to continue this treatment. Hold parameters again reviewed. Concern for proceedingwith infusion next week given recurrent lung infections and abnormal chest CT. See plan. Osteoporosis with history of pathologic vertebral fracture: Followed by primary care. ZEPEDA: Unclear etiology after extensive work-up by pulmonology and cardiology. No evidence of fluid overload so from that perspective proceeding with infusion today should be fine. Possible Melanoma (eye) followed in [place]: 09/2023 discussed with Timoteo Layton MD, and will plan to continue rituxan. Plan: Continue Rituxan Q16W at [facility] if safe to do so (see below). Lab orders sent to [facility] to be done today. Reviewed my concerns re his recurrent lung infections and that I wanted to have pulmonology weight in re safety of proceeding with infusion (and then after the visit I found the abnormal chest CT in [facility] showing a new 24 x 9 x 13 mm nodular infiltrate in the left upper lobe (apical posterior segment) which was not evident on CT scan of 11/05/2023). I was unable to reach his toy stuffer this afternoon as their office is closed. Pending lab review and toy stuffer okay he will plan to proceed with infusion on 04/28/2024. Discussion with Guerline Lacy RN, regarding above and she will follow-up regarding lab results andcontact patient's toy stuffer DONAVAN Early, for their okay to proceed with Rituxan given recurrent infections and abnormal chest CT. If there are any concerns then Mr. Ybarra will need to postpone his infusion. Next appointment to be scheduled the same day as his 08/2024 infusion. He will need new orders for [facility] to do a couple of weeks before he sees me and I set a reminder. Plan, as usual, is for labs at [facility] 1-2 weeks before his appointment with me. He knows to expect a letter from me re results and to contact me if he does not receive one. If he cannot accomplish thisthen he will get labs done immediately before seeing me for his appointment which will be scheduledthe same day as his Rituxan infusion (I [...] PM EDT Hospital En[place] [address] 05/14/2024 1:00 PM EDT Office Visit Dermatology at [address] [address] 08/18/2024 10:00 AM EST Office [place] [address] Alice Carney APRN [facility] [place] [address] 08/18/2024 12:00 PM EST [place] [address] 12/08/2024 12:00 PM EDT [place] [address] Scheduled Orders Name Type Priority Associated Diagnoses Orde r Schedule CBC (with Diff) Lab Routine Rheumatoid arthritis with positive rheumatoid factor, involving unspecified site High risk medication use Expected: 04/24/2024, Expires: 04/24/2025 Comprehensive metabolic panel Lab Routine Rheumatoid arthritis with positive rheumatoid factor, involving unspecified site High risk medication use Expected: 04/24/2024, Expires: 04/24/2025 Sedimentation rate Lab Routine Rheumatoid arthritis with positive rheumatoid factor, involving unspecified site High risk medication use Expected: 04/24/2024, Expires: 04/16/2025 CRP, acute inflammation Lab Routine Rheumatoid arthritis with positive rheumatoid factor, involving unspecified site High risk medication use Expected: 04/24/2024, Expires: 04/16/2025 documented as of this encounter Visit Diagnoses Diagnosis Rheumatoid arthritis with positive rheumatoid factor, involving unspecified site High risk medication use Encounter for long-term (current) use of other medications documented in this encounter Care Teams Liquid Flavor Compounder Relationship Specialty Start Date End Date Arelis Michele MD [address] [place] [address] PCP - General Family Medicine 02/12/24 documented as of this encounter
--- OUTSIDE RECORDS SUMMARY | 2024-04-24 21:05 | XMS_ITS | Encounter Summary ---
[place] [address] Care Team Providers Care Wedding Photographer Name Role Phone Arelis Michele MD Primary Care Provider [phone] Reason for Visit * Reason Onset Date Comments Follow-up 07/12/2021 Encounter Details Date Type Department Care Team (Late st Contact Info) Description 07/12/2021 Telephone [place] [phone] José Luis Mccabe RN Follow-up Social History [...] - 07/12/2021 7:51 PM EST Billie from [facility] calls to advise Wesly cancelled Infusion [...] out infusion orders for Wesly. Alice Carney, WEAVER DOBBY LOOM sent to José Luis Mccabe RN Caller: Unspecified (Yesterday, ??1:12 PM) Yes, she can close out the infusion orders. Thank you. Called and advised Billie to cancel orders per Angelika THOMAS. documented in this encounter Plan of Treatment Upcoming Encounters Date Type Department Care Team (Late st Contact Info) Description 04/28/2024 12:00 PM EDT Hospital Encounter [place] [address] 05/14/2024 1:00 PM EDT Office Visit Dermatology at [address] [address] 08/18/2024 10:00 AM EST Office [place] [address] Alice Carney, WEAVER DOBBY LOOM [facility] [place] [address] 08/18/2024 12:00 PM EST Appointment [place] [address] 12/08/2024 12:00 PM EDT Appointment [place] [address] documented as of this encounter Visit Diagnoses Not on filedocumented in this encounter Care Teams Wedding Photographer Relationship Specialty Start Date End Date Arelis Michele MD [address] [place] [address] PCP - General Family Medicine 08/01/18 02/11/24 documented as of this encounter
--- OUTSIDE RECORDS SUMMARY | 2024-04-24 21:05 | XMS_ITS | Encounter Summary ---
Author Organization [facility] [place] [address] Care Team Providers Care Helicopter Engineer Name Role Phone Arelis Michele MD Primary Care Provider [phone] Encounter Details Date Type Department Care Team (Late st Contact Info) Description 01/10/2023 Orders [place] [address] Alice Carney APRN [facility] [place] [address] [place] [address] Social History Tobacco Use Types Packs/Day Years [...] PM EDT Hospital [place] [address] 05/14/2024 1:00 PM EDT Office Visit Dermatology at [facility] [address] [place] [address] 08/18/2024 10:00 AM EST Office [place] [address] Alice Carney, WIRE INSPECTOR [facility] [place] [address] 08/18/2024 12:00 PM EST [place] [address] 12/08/2024 12:00 PM EDT [place] [address] documented as of this encounter Visit Diagnoses Not on filedocumented in this encounter Care Teams Helicopter Engineer Relationship Specialty Start Date End Date Arelis Michele MD [address] [place] [address] PCP - General Family Medicine 08/01/18 02/11/24 documented as of this encounter
--- OUTSIDE RECORDS SUMMARY | 2024-04-24 21:05 | XMS_ITS | Encounter Summary ---
Author Organization [facility] [place] [address] Care Team Providers Care Cable Splicer Name Role Phone Arelis Michele MD Primary Care Provider Encounter Details Date Type Department Care Team (Late st Contact Info) Description 09/17/2023 10:00 AM EST Office [place] [address] Alice Carney FLYING INSTRUCTOR [facility] [place] [address] High risk medication use; Rheumatoid arthritis with [...] this encounter Progress Notes * Alice Carney, FLYING INSTRUCTOR - 09/17/2023 10:00 AM EST Rheumatology Follow-up [...] Currently treated with name brand Rituxan via [employer] 2021 with benefit to joints. Treatment considerations: See 02/05/23 OV for extensive review. Cannot take NSAIDS per cardiology. CAD and CMP: [facility] Cardiology OV notes from 09/27/2020 (Wesly Munoz MD) reviewed 02/28/2021. CAD: s/p CABG (Patient Denies!) and s/p mid LAD stent March 2019. Additional workup with CPET planned at [facility] for eval of ongoing SOB. No ischemia [...] with cardiology. Vinayak-diaphragm, ZEPEDA, wheezing: Comprehensive work-up [facility] pulmonology (last OV 08/2020) with no clear diagnosis. Responds to nebulizer treatment with unknown medication. Multiple specialists: Pulmonology @ [facility] Geneva Cruz MD and DONAVAN Garibay. PFTs planned. Cardiology @ [facility] Franck Edwards MD [facility] for eye issue concerning for possible melanoma (history melanoma skin hx). Qian Navarro MD, [facility]. Dermatology at [facility] hx melanoma. ENT at [facility]. Interval History: Current treatment for RA: Rituxan (name brand) 1000 mg Q16W per [employer] medication assistance program started 02/13/2022. Last infusion: [...] which he has had for years. Sees [facility] ENT since 06/2023. Very dry in [...] activity -- ongoing. Followed by cardiology at [facility]. Pulmonary: Denies hemoptysis, purulent sputum. + intermittent cough ongoing with no clear dx. . + SOB at rest at times with + ZEPEDA. Unremarkable work-up [facility] pulmonology. Nebulizer (med ?) helps. Sometimes uses his albuterol inhaler. Now sees pulmonology at [facility]. Gastrointestinal: Denies abdominal pain, nausea, vomiting, [...] resection Osteoporosis with pathologic vertebral fracture per [facility] notes but not on file at [facility]. Physical Examination: BP (!) 134/112 (BP Location [...] Feet: No MTP compression tenderness DATA: 09/10/23 [facility]: unremarkable cbc, cmp, crp, esr. 06/07/2021 [facility]: Negative Hepatitis B/C and TB Quant Gold screening. ASSESSMENT/RECOMMENDATIONS: Seropositive rheumatoid arthritis: Good control since initiation of Rituxan 01/2022 (1000 mg [facility]M [facility]) done at [facility]. He is tolerating infusions well without s/s fluid overload by his report. He would like to continue this treatment. Hold parameters again reviewed. He will continue to get routine labs checked at [facility] 1-2 weeks before his infusion and [...] be fine. Plan: Continue Rituxan Q16W at [facility]. Labs at [facility] 1-2 weeks before. If he cannot [...] PM EDT Hospital [place] [address] 05/14/2024 1:00 PM EDT Office Visit Dermatology at [facility] [address] [place] [address] 08/18/2024 10:00 AM EST [place] [address] Alice Carney, ITA [facility] [place] [address] 08/18/2024 12:00 PM EST [place] [address] 12/08/2024 12:00 PM EDT [place] [address] documented as of this encounter Visit Diagnoses Diagnosis High risk medication use Encounter for long-term (current) use of other medications Rheumatoid arthritis with positive rheumatoid factor, involving unspecified site documented in this encounter Care Teams Cable Splicer Relationship Specialty Start Date End Date Arelis Michele MD [address] [place] [address] PCP - General Family Medicine 08/01/18 02/11/24 documented as of this encounter
--- OUTSIDE RECORDS SUMMARY | 2024-04-24 21:05 | XMS_ITS | Encounter Summary ---
[place] [address] Care Team Providers Care Sidewalk Inspector Name Role Phone Arelis Michele MD Primary Care Provider [phone] Encounter Details Date Type Department Care Team (Late st Contact Info) Description 07/12/2022 Telephone [place] [address] Stefany Rosales Social History Tobacco Use Types [...] PM EDT Hospital En[place] [address] 05/14/2024 1:00 PM EDT Office Visit Dermatology at [facility] [address] [place] [address] 08/18/2024 10:00 AM EST Office [place] [address] Alice Carney APRN [facility] [place] [address] 08/18/2024 12:00 PM EST [place]ointment [place] [address] 12/08/2024 12:00 PM EDT [place]oint[place] [address] documented as of this encounter Visit Diagnoses Not on filedocumented in this encounter Care Teams Sidewalk Inspector Relationship Specialty Start Date End Date Arelis Michele MD [address] [place] [address] PCP - General Family Medicine 08/01/18 02/11/24 documented as of this encounter
--- OUTSIDE RECORDS SUMMARY | 2024-04-24 21:05 | XMS_ITS | Encounter Summary ---
Author Organization [facility], Located Within [facility] [place] [address] Care Team Providers Care Panel Beater Name Role Phone Arelis Michele MD Primary Care Provider [phone] Encounter Details Date Type Department Care Team (Latest Contact Info) Description 12/08/2021 2:00 PM EDT TH Visit (TeleHealth) [place] [address] Alice Carney APRN [facility] [place] [address] Rheumatoid arthritis with positive rheumatoid factor, involving [...] and you can get these drawn at [facility] -- orders are attached: CBC = complete [...] overload. I spoke with ASHLEY Wise, in [facility] infusion lab this morning -- last infusion was in 2017 for name brand Rituximab. ?? Orencia tried [id number] and stopped due to lack of efficacy [...] 1000 mg IV Q16W infusion resumed at [facility] -- next infusion cancelled due to unaffordable mxb-qi-cteiwr cost. ?? Plan was to start Xeljanz 07/2021 given limited options available to patient for treatment givenmedical history and co-morbidities after communication via ED with Wesly Munoz MD, in cardiology. He never started it due to concerns about black box warnings. ?? Started leflunomide 10 mg daily 10/2021 while investigating [employer] Rituxan medication assistance program. Treatment considerations: ?? 02/14/2021 Denied hx blood clots. + Hx diverticulitis with 18 bowel resected. + CMP. SOB/ZEPEDA -- multifactorial as noted elsewhere. ?? Marked improvement with resumption of Rituxan (received Ruxience) 03/2021. He could not continue with RTX due to rob-hx-icmtwk cost. Options for treatment are limited due [...] take NSAIDS per cardiology. CAD and CMP: [facility] Cardiology OV notes from 09/27/2020 (Wesly Munoz MD) reviewed 02/28/2021. ?? CAD: s/p CABG (Patient Denies!) and s/p mid LAD stent March 2019. Additional workup with CPET planned at [facility] for eval of ongoing SOB (Patient says [...] as planned due to persistent sour stomach. 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 He met his new industrial cafeteria manager at [facility] 09/2021 and he is pleased [...] I discussed this case briefly with his outdoor studies professor (though he did not review prior notes [...] with fluid overload. Note that on 03/21/2021 [facility] Rheumatology nurse confirmed with ASHLEY Wise, that [facility] infusion labthat per their [...] activity -- ongoing. Followed by cardiology at [facility]. Pulmonary: Denies hemoptysis. + SOB [...] resection Osteoporosis with pathologic vertebral fracture per [facility] notes but not on file at [facility]. Physical Examination: Not done (telephone visit) Patient [...] empty can on the L DATA: Labs: [facility] 06/07/2021: unremarkable CBC, CMP, ESR, CRP. Negative Hepatitis B/C and TB Quant Gold screening. [facility] 03/2021: unremarkable CBC, CMP ASSESSMENT/RECOMMENDATIONS: Seropositive rheumatoid arthritis: Suboptimal control on leflunomide 10 mg started about 10 weeks ago. He is unable to increase the dose due to persistent sour stomach. Note that he started leflunomide to see if it would help him while we investigated [employer] Rituxan patient assistance program as that is [...] 02/28/2021 office visit to be done at [facility] and not yet done. [...] and you can get these drawn at [facility] -- orders are attached: ?? CBC = [...] the visit, chart review, and documentation: 45 Aliec Carney APRN CC: Arelis Michele MD documented in this encounter Plan of Treatment Upcoming Encounters Date Type Department Care Team (Late st Contact Info) Description 04/28/2024 12:00 PM EDT Hospital Encounter [place] [address] 05/14/2024 1:00 PM EDT Office Visit Dermatology at [facility] [address] [place] [address] 08/18/2024 10:00 AM EST Office [place] [address] Alice Carney APRN [facility] [place] [address] 08/18/2024 12:00 PM EST Appointment [place] [address] 12/08/2024 12:00 PM EDT [place]oint[place] [address] documented as of this encounter Visit Diagnoses Diagnosis Rheumatoid arthritis with positive rheumatoid factor, involving unspecified site High risk medication use Encounter for long-term (current) use of other medications documented in this encounter Care Teams Panel Beater Relationship Specialty Start Date End Date Arelis Michele MD [address] [place] [address] PCP - General Family Medicine 08/01/18 02/11/24 documented as of this encounter
--- OUTSIDE RECORDS SUMMARY | 2024-04-24 21:05 | XMS_ITS | Encounter Summary ---
Author Organization [facility] [place] [address] Care Team Providers Care Resident Manager Name Role Phone Arelis Michele MD Primary Care Provider [phone] Encounter Details Date Type Department Care Team (Late st Contact Info) Description 06/25/2021 Notes [place] [address] Alice Carney APRN [facility] [place] [address] Social History Tobacco Use Types Packs/Day Years [...] PM EDT Hospital Encounter [place] [address] 05/14/2024 1:00 PM EDT Office Visit Dermatology at [address] [place] [address] 08/18/2024 10:00 AM EST Office [place] [address] Alice Carney, ITA [facility] [place] [address] 08/18/2024 12:00 PM EST Appointment [place] [address] 12/08/2024 12:00 PM EDT Appointment [place] [address] documented as of this encounter Visit Diagnoses Not on filedocumented in this encounter Care Teams Resident Manager Relationship Specialty Start Date End Date Arelis Michele MD [address] [place] [address] PCP - General Family Medicine 08/01/18 02/11/24 documented as of this encounter
--- OUTSIDE RECORDS SUMMARY | 2024-04-24 21:05 | XMS_ITS | Encounter Summary ---
[place] [address] Care Team Providers Care Furniture Finisher Name Role Phone Arelis Michele MD Primary Care Provider [phone] Encounter Details Date Type Department Care Team (Late st Contact Info) Description 11/06/2022 Telephone [place] [address] Bernie Ott MA Social History Tobacco Use [...] PM EDT Hospital En[place] [address] 05/14/2024 1:00 PM EDT Office Visit Dermatology at [facility] [address] [place] [address] 08/18/2024 10:00 AM EST Office [place] [address] Alice Carney, YARD MANAGER [facility] [place] [address] 08/18/2024 12:00 PM EST App[place] [address] 12/08/2024 12:00 PM EDT [place]oint[place] [address] documented as of this encounter Visit Diagnoses Not on filedocumented in this encounter Care Teams Furniture Finisher Relationship Specialty Start Date End Date Arelis Michele MD [address] [place] [address] PCP - General Family Medicine 08/01/18 02/11/24 documented as of this encounter
--- OUTSIDE RECORDS SUMMARY | 2024-04-24 21:05 | XMS_ITS | Encounter Summary ---
Author Organization [facility] [place] [address] Care Team Providers Care Field Trainer Name Role Phone Arelis Michele MD Primary Care Provider [phone] Encounter Details Date Type Department Care Team (Late st Contact Info) Description 06/05/2022 9:00 AM EDT Office Visit [place] [address] Alice Carney APRN [facility] [place] [address] Sinus congestion; High risk medication use Social [...] of your sinuses -- order sent to [facility] so please call to schedule. [...] resumption of Rituxan (received Ruxience) 03/2021 at [facility]. He could not continue with RTX due to clc-ss-gpqhkw cost then was able to resume name brand Rituxan via [employer] 2021 with benefit to joints. ?? Orencia tried [id number] and stopped due to lack of efficacy [...] 1000 mg IV Q16W infusion resumed at [facility] -- next infusion cancelled due to unaffordable yle-sh-tjjufz cost. ?? Plan was to start Xeljanz 07/2021 given limited options available to patient for treatment givenmedical history and co-morbidities after communication via ED with Wesly Munoz MD, in cardiology. He never started it due to concerns about black box warnings. ?? Started leflunomide 10 mg daily 10/2021 while investigating [employer] Rituxan medication assistance program. No improvement with [...] take NSAIDS per cardiology. CAD and CMP: [facility] Cardiology OV notes from 09/27/2020 (Wesly Munoz MD) reviewed 02/28/2021. ?? CAD: s/p CABG (Patient Denies!) and s/p mid LAD stent March 2019. Additional workup with CPET planned at [facility] for eval of [...] for RA: Rituxan 1000 mg Q4M per [employer] medication assistance program started 02/13/2022. Rituxan infusion [...] Denies weeping or drainage. Per 12/2021 OV: [employer] Ritux[employer] medication assistance program was recently approved [...] persistent dyspnea which is ongoing and his test designer at [facility] ordered a repeat stress test which [...] is recovered well. He met his new test designer at [facility] 09/2021 and he is pleased [...] I discussed this case briefly with his bench loom weaver (though he did not review prior notes [...] with fluid overload. Note that on 03/21/2021 [facility] Rheumatology nurse confirmed with ASHLEY Wise, that [facility] infusion labthat per their protocol, [...] activity -- ongoing. Followed by cardiology at [facility]. Pulmonary: Denies hemoptysis. + SOB [...] resection Osteoporosis with pathologic vertebral fracture per [facility] notes but not on file at [facility]. Physical Examination: Not done (telephone visit) Patient [...] co-ordinated. Speech clearly articulated. No obvious deficits. Grinder Set Up Operator Jig strength +4/5= bilaterally. Skin: no rheumatologic rashes. [...] Feet: No MTP compression tenderness DATA: Labs: [facility] 05/22/2022: Normal CMP and CBC. Mildly elevated CRP at 0.98 (ULN 0.3) with normal ESR at 2. [facility] 06/07/2021: unremarkable CBC, CMP, ESR, CRP. Negative Hepatitis B/C and TB Quant Gold screening. [facility] 03/2021: unremarkable CBC, CMP ASSESSMENT/RECOMMENDATIONS: Seropositive rheumatoid arthritis: Improvement in RA by clinical exam after starting Rituxan 01/2022via [employer]. He is due to have his second infusion today but I am concerned about a possible sinus infection and a groin rash. The sinus issues and purulent sputum have been an intermittent issue. CT sinus ordered to be done at [facility]. Labs are up-to-date and normal except [...] 02/28/2021 office visit to be done at [facility] and not yet done. Continue [...] of your sinuses -- order sent to [facility] so please call to schedule. [...] and documentation: 45 Alice Carney APRN CC: Arelsi Michele MD documented in this encounter Plan of Treatment Upcoming Encounters Date Type Department Care Team (Late st Contact Info) Description 04/28/2024 12:00 PM EDT Hospital Encounter [place] [address] 05/14/2024 1:00 PM EDT Office Visit Dermatology at [address] [address] 08/18/2024 10:00 AM EST Office Visit [place] [address] Alice Carney APRN [facility] [place] [address] 08/18/2024 12:00 PM EST Appointment [place] [address] 12/08/2024 12:00 PM EDT Appointment [place] [address] documented as of this encounter Visit Diagnoses Diagnosis Sinus congestion Other diseases of nasal cavity and sinuses High risk medication use Encounter for long-term (current) use of other medications documented in this encounter Care Teams Field Trainer Relationship Specialty Start Date End Date Arelis Michele MD [address] [place] [address] PCP - General Family Medicine 08/01/18 02/11/24 documented as of this encounter
--- OUTSIDE RECORDS SUMMARY | 2024-04-24 21:05 | XMS_ITS | Encounter Summary ---
[place] [address] Care Team Providers Care Car Shagger Name Role Phone Arelis Michele MD Primary Care Provider [phone] Encounter Details Date Type Department Care Team (Late st Contact Info) Description 04/24/2024 Telephone [place] [address] Guerline Ruano RN Social History Tobacco Use Types Packs/Day [...] Miscellaneous Notes * Telephone Encounter - Guerline Ruano RN - 04/24/2024 4:23 PM EDT Call placed to [facility] lab to request that pt's lab results get faxed [place] to the rheumatology clinic.Above message, clinic fax and phone number left on named laboratory answering machine. documented in this encounter Plan of Treatment Upcoming Encounters Date Type Department Care Team (Late st Contact Info) Description 04/28/2024 12:00 PM EDT Hospital En[place] [address] 05/14/2024 1:00 PM EDT Office Visit Dermatology at [facility] [address] [place] [address] 08/18/2024 10:00 AM EST Office [place] [address] Alice Carney APRN [facility] [place] [address] 08/18/2024 12:00 PM EST Appointment [place] [address] 12/08/2024 12:00 PM EDT [place]oint[place] [address] documented as of this encounter Visit Diagnoses Not on filedocumented in this encounter Care Teams Car Shagger Relationship Specialty Start Date End Date Arelis Michele MD [address] [place] [address] PCP - General Family Medicine 02/12/24 documented as of this encounter
--- OUTSIDE RECORDS SUMMARY | 2024-04-24 21:05 | XMS_ITS | Encounter Summary ---
Author Organization [facility] [place] [address] Care Team Providers Care Small Business Sales Representative Name Role Phone Arelis Michele MD Primary Care Provider [phone] Reason for Visit * Treatment/Therapy Plan Authorization (Routine) - Closed Specialty Diagnoses / Procedures Referred By Azam corbett Referred To Contact Rheumatology Diagnoses Rheumatoid arthritis, involving unspecified site, unspecified whether rheumatoid factor present Procedures INFUSION THERAPY TC RITUXIMAB, 10MG INJECTION Alice Carney [facility] [place] [address] Alice Carney [facility] [place] [address] Referral ID Status Reason Start Date Expiration Date Visits Re quested Visits Authorized [id number] Closed 01/10/2023 01/10/2024 99 101 Encounter Details Date Type Department Care Team (Latest Contact Info) Description 02/05/2023 11:44 AM EDT - 02/05/2023 11:59 PM EDT Hospital En[place] [address] Rheumatoid arthritis, involving unspecified site, unspecified whether [...] Preparation/Maintenance site cleansed: 70% alcohol;dressing: transparent semipermeable [id number] Patency/Maintenance flushed without difficulty;alcohol impregnated cap applied;blood [...] PM EDT Hospital Encounter [place] [address] 05/14/2024 1:00 PM EDT Office Visit Dermatology at [address] [address] 08/18/2024 10:00 AM EST Office [place] [address] Alice Carney, [facility] [place] [address] 08/18/2024 12:00 PM EST Appointment [place] [address] 12/08/2024 12:00 PM EDT Appointment [place] [address] documented as of this encounter Visit Diagnoses [...] mg documented in this encounter Care Teams Small Business Sales Representative Relationship Specialty Start Date End Date Arelis Michele MD [address] [place] [address] PCP - General Family Medicine 08/01/18 02/11/24 documented as of this encounter
--- OUTSIDE RECORDS SUMMARY | 2024-04-24 21:05 | XMS_ITS | Encounter Summary ---
Author [place] [address] Care Team Providers Care Manager Integrated Name Role Phone Arelis Michele MD Primary Care Provider [phone] Encounter Details Date Type Department Care Team (Late st Contact Info) Description 01/10/2023 Ancillary Procedure [place] [address] Arelis Michele MD [address] [place], [place] [address] Social History Tobacco Use Types Packs/Day Years [...] PM EDT Hospital Encounter [place] [address] 05/14/2024 1:00 PM EDT Office Visit Dermatology at [facility] [address] [place] [address] 08/18/2024 10:00 AM EST Office [place] [address] Alice Carney, ITA [facility] [address] 08/18/2024 12:00 PM EST Appointment Med [facility] [place] [address] 12/08/2024 12:00 PM EDT Appointment [place] [address] documented as of this encounter Procedures Procedure Name Priority Date/Time Associated Diagnosis Comments FILM LIBRARY- STORAGE ONLY DXA IMAGES Routine 01/10/2023 12:00 AM EDT documented in this encounter Results * Film Library- Storage Only DXA Images (01/10/2023 12:00 AM EDT) Narrative [facility] - 01/11/2023 4:15 PM EDT This exam is auto-finalizing. It's purpose is for storage only. Arelis Michele MD IMG FILM LIBRARY ORD ERABLES [place], [place] documented in this encounter Visit Diagnoses Not on filedocumented in this encounter Care Teams Manager Integrated Relationship Specialty Start Date End Date Arelis Michele MD [address] [place] [address] PCP - General Family Medicine 08/01/18 02/11/24 documented as of this encounter
--- OUTSIDE RECORDS SUMMARY | 2024-04-24 21:05 | XMS_ITS | Encounter Summary ---
Author Organization [facility] [place] [address] Care Team Providers Care Graining Operator Name Role Phone Arelis Michele MD Primary Care Provider [phone] Encounter Details Date Type Department Care Team [...] PM EDT Hospital Encounter [place] [address] 05/14/2024 1:00 PM EDT Office Visit Dermatology at [address] [address] 08/18/2024 10:00 AM EST Office [place] [address] Alice Carney APRN [facility] [place] [address] 08/18/2024 12:00 PM EST Appointment [place] [address] 12/08/2024 12:00 PM EDT Appointment [place] [address] documented as of this encounter Visit Diagnoses Not on filedocumented in this encounter Care Teams Graining Operator Relationship Specialty Start Date End Date Arelis Michele MD [address] [place] [address] PCP - General Family Medicine 08/01/18 02/11/24 documented as of this encounter
--- OUTSIDE RECORDS SUMMARY | 2024-04-24 21:05 | XMS_ITS | Encounter Summary ---
[place] [address] Care Team Providers Care Fibre Technologist Name Role Phone Arelis Michele MD Primary Care Provider Encounter Details Date Type Department Care Team (Latest Contact Info) Description 05/17/2023 [place] [address] Arelis Michele MD [address] [place], [place] [id number] Hypothyroidism, unspecified type; Hyperlipidemia, unspecified hyperlipidemia type; [...] PM EDT Hospital Encounter [place] [address] 05/14/2024 1:00 PM EDT Office Visit Dermatology at [facility] [address] [place] [address] 08/18/2024 10:00 AM EST Office Visit [place] [address] Alice Carney APRN [facility] [place] [address] 08/18/2024 12:00 PM EST Appointment [place] [address] 12/08/2024 12:00 PM EDT Appointment [place] [address] Scheduled Orders Name Type Priority Associated Diagnoses [...] facility documented in this encounter Care Teams Fibre Technologist Relationship Specialty Start Date End Date Arelis Michele MD [address] [place] [address] PCP - General Family Medicine 08/01/18 02/11/24 documented as of this encounter
--- OUTSIDE RECORDS SUMMARY | 2024-04-24 21:05 | XMS_ITS | Encounter Summary ---
Author Organization [facility] [place] [address] Care Team Providers Care Metal Furnace Operator Name Role Phone Arelis Michele MD Primary Care Provider [phone] Encounter Details Date Type Department Care Team [...] PM EDT Hospital Encounter [place] [address] 05/14/2024 1:00 PM EDT Office Visit Dermatology at [address] [address] 08/18/2024 10:00 AM EST Office [place] [address] Alice Carney APRN [facility] [place] [address] 08/18/2024 12:00 PM EST Appointment [place] [address] 12/08/2024 12:00 PM EDT Appointment [place] [address] documented as of this encounter Visit Diagnoses Not on filedocumented in this encounter Care Teams Metal Furnace Operator Relationship Specialty Start Date End Date Arelis Michele MD [address] [place] [address] PCP - General Family Medicine 08/01/18 02/11/24 documented as of this encounter
--- OUTSIDE RECORDS SUMMARY | 2024-04-24 21:05 | XMS_ITS | Encounter Summary ---
[place] [address] Care Team Providers Care Chemical Sales Representative Name Role Phone Arelis Michele MD Primary Care Provider [phone] Reason for Visit * Reason Comments Medication Management Patient Education Encounter Details Date Type Department Care Team (Late st Contact Info) Description 07/07/2021 Specialty [place] [address] Mariela Ritter, [facility] Social History Tobacco Use Types Packs/Day Years [...] encounter Progress Notes * Mariela Ritter [facility] - 07/07/2021 10:52 AM EDT Specialty Pharmacy [...] Requirements: no Medication Reconciliation Discrepancies (compared to [facility] med list) -none Medication List: Current [...] specialty services: Yes Patient accepted offer to pre parole counseling aide: select all, adherence/missed doses, cost of medications/cost [...] to doctor discussed, reminder to refill or grape picker medication discussed, self-monitoring discussed, start medication [...] Social Assessment: Does patient have a primary care team coordinator scheduler: No Does patient have an emergency contact on file: Yes Does patient need referral to social sciences lecturer: No Does patient need referral to advocacy [...] PM EDT Hospital [place] [address] 05/14/2024 1:00 PM EDT Office Visit Dermatology at [address] [place] [address] 08/18/2024 10:00 AM EST Office [place] [address] Alice Carney, [facility] [place] [address] 08/18/2024 12:00 PM EST [place] [address] 12/08/2024 12:00 PM EDT [place] [address] documented as of this encounter Visit Diagnoses Not on filedocumented in this encounter Care Teams Chemical Sales Representative Relationship Specialty Start Date End Date Arelis Michele MD [address] [place] [address] PCP - General Family Medicine 08/01/18 02/11/24 documented as of this encounter
--- OUTSIDE RECORDS SUMMARY | 2024-04-24 21:05 | XMS_ITS | Encounter Summary ---
[place] [address] Care Team Providers Care Electrical Subcontractor Name Role Phone Arelis Michele MD Primary Care Provider [phone] Reason for Visit * Reason Onset Date Comments Prior Authorization 10/18/2021 Encounter Details Date Type Department Care Team (Late st Contact Info) Description 10/18/2021 Telephone [place] [address] Angelica Faith Prior Authorization Social History Tobacco [...] Rationale for request: RA Health plan: [employer] ([facility]) Authorizing phlebotomy services representative name: Ellie Sent to health plan on: 10/18/21 Health plan decision: Approved Quantity approved: Authorization number: [id number] Start date: 09/02/21 End date: 09/01/22 documented in this encounter Plan of Treatment Upcoming Encounters Date Type Department Care Team (Late st Contact Info) Description 04/28/2024 12:00 PM EDT Hospital Encounter [place] [address] 05/14/2024 1:00 PM EDT Office Visit Dermatology at [facility] [address] [place] [address] 08/18/2024 10:00 AM EST Office Visit [place] [address] Alice Carney APRN [facility] [place] [address] 08/18/2024 12:00 PM EST Appointment [place] [address] 12/08/2024 12:00 PM EDT Appointment [place] [address] documented as of this encounter Visit Diagnoses Not on filedocumented in this encounter Care Teams Electrical Subcontractor Relationship Specialty Start Date End Date Arelis Michele MD [address] [place] [address] PCP - General Family Medicine 08/01/18 02/11/24 documented as of this encounter
--- OUTSIDE RECORDS SUMMARY | 2024-04-24 21:05 | XMS_ITS | Encounter Summary ---
[place] [address] Care Team Providers Care Pulmonologist Name Role Phone Arelis Michele MD Primary Care Provider Reason for Referral * Consultation (Routine) - Closed Specialty Diagnoses / Procedures Referred By Azam corbett Referred To Contact Gastroenterology Diagnoses Screening for colon cancer Benign neoplasm of colon, unspecified Personal history of colonic polyps Acquired absence of other specified parts of digestive tract Arelis Michele MD [address] [place] [address] [facility] Endoscopy [address] [place] [address] Referral ID Status Reason Start Date Expiration Date V isits Requested Visits Authorized [id number] Closed Surgical PCP Updated and/or Approved 02/08/2023 02/08/2024 12 12 Encounter Details Date Type Department Care Team (Latest Contact Info) Description 02/08/2023 Transcribe Orders eD Incoming Referrals [phone] Arelis Michele MD [address] [place], [place] [id number] Screening for colon cancer Social History Tobacco [...] PM EDT Hospital Encounter [place] [address] 05/14/2024 1:00 PM EDT Office Visit Dermatology at [facility] [address] [place] [address] 08/18/2024 10:00 AM EST Office [place] [address] Alice Carney, [facility] MANAGER [facility] [address] 08/18/2024 12:00 PM EST App[place]ment [place] [address] 12/08/2024 12:00 PM EDT Appoint[place] [address] Scheduled Referrals Name Type Priority Associated Diagnoses Order Schedule REFERRAL TO COLONOSCOPY PROCEDURE Outpatient Referral Routine Screening for colon cancer Ordered: 02/08/2023 documented as of this encounter Visit Diagnoses Diagnosis Screening for colon cancer Special screening for malignant neoplasms, colon documented in this encounter Care Teams Pulmonologist Relationship Specialty Start Date End Date Arelis Michele MD [address] [place] [address] PCP - General Family Medicine 08/01/18 02/11/24 documented as of this encounter
--- OUTSIDE RECORDS SUMMARY | 2024-04-24 21:05 | XMS_ITS | Encounter Summary ---
Author Organization [facility] [place] [address] Care Team Providers Care Bale Sewer Name Role Phone Arelis Michele MD Primary Care Provider [phone] Encounter Details Date Type Department Care Team (Late Contact Info) Description 07/12/2022 Telephone [place] [address] Stefany Rosales Social History Tobacco Use Types [...] PM EDT Hospital [place] [address] 05/14/2024 1:00 PM EDT Office Visit Dermatology at [facility] [address] [place] [address] 08/18/2024 10:00 AM EST [place] [address] Alice Carney APRN [facility] [place] [address] 08/18/2024 12:00 PM EST [place] [address] 12/08/2024 12:00 PM EDT [place] [address] documented as of this encounter Visit Diagnoses Not on filedocumented in this encounter Care Teams Bale Sewer Relationship Specialty Start Date End Date Arelis Michele MD [address] [place] [address] PCP - General Family Medicine 08/01/18 02/11/24 documented as of this encounter
--- OUTSIDE RECORDS SUMMARY | 2024-04-24 21:05 | XMS_ITS | Encounter Summary ---
Author Organization [facility] [place] [address] Care Team Providers Care Computer Networking Instructor Name Role Phone Arelis Michele MD Primary Care Provider [phone] Encounter Details Date Type Department Care Team [...] PM EDT Hospital En[place] [address] 05/14/2024 1:00 PM EDT Office Visit Dermatology at [address] [address] 08/18/2024 10:00 AM EST Office [place] [address] Alice Carney APRN [facility] [place] [address] 08/18/2024 12:00 PM EST [place] [address] 12/08/2024 12:00 PM EDT [place]oint[place] [address] documented as of this encounter Visit Diagnoses Not on filedocumented in this encounter Care Teams Computer Networking Instructor Relationship Specialty Start Date End Date Arelis Michele MD [address] [place] [address] PCP - General Family Medicine 08/01/18 02/11/24 documented as of this encounter
--- OUTSIDE RECORDS SUMMARY | 2024-04-24 21:05 | XMS_ITS | Encounter Summary ---
Author Organization [facility] [place] [address] Care Team Providers Care Blind Lacer Name Role Phone Arelis Michele MD Primary Care Provider [phone] Encounter Details Date Type Department Care Team [...] PM EDT Hospital Encounter [place] [address] 05/14/2024 1:00 PM EDT Office Visit Dermatology at [address] [address] 08/18/2024 10:00 AM EST Office [place] [address] Alice Carney APRN [facility] [place] [address] 08/18/2024 12:00 PM EST Appointment [place] [address] 12/08/2024 12:00 PM EDT Appointment [place] [address] documented as of this encounter Visit Diagnoses Not on filedocumented in this encounter Care Teams Blind Lacer Relationship Specialty Start Date End Date Arelis Michele MD [address] [place] [address] PCP - General Family Medicine 08/01/18 02/11/24 documented as of this encounter
--- OUTSIDE RECORDS SUMMARY | 2024-04-24 21:05 | XMS_ITS | Encounter Summary ---
[place] [address] Care Team Providers Care Corporate Traffic Manager Name Role Phone Arelis Michele MD Primary Care Provider [phone] Reason for Visit * Reason Comments Specialty Pharmacy Review Tofacitinib (X eljanz) Encounter Details Date Type Department Care Team (Late st Contact Info) Description 08/18/2021 Specialty [place] [address] Riana Ceron, [facility] Social History Tobacco Use Types Packs/Day [...] Ceron - 08/18/2021 10:49 AM EST The [facility] has completed a benefits investigation for Wesly Ybarra to review their eligibility to fill at [facility]. Per patient's medication list they are prescribedTofacitinib (Xeljanz) and the medication is able to be filled at the [facility]; patient currently fills with [facility]. documented in this encounter Plan of Treatment Upcoming Encounters Date Type Department Care Team (Late st Contact Info) Description 04/28/2024 12:00 PM EDT Hospital Encounter [place] [address] 05/14/2024 1:00 PM EDT Office Visit Dermatology at [facility] [address] [place] [address] 08/18/2024 10:00 AM EST Office [place] [address] Alice Carney, [facility] [employer] [facility] [place] [address] 08/18/2024 12:00 PM EST Appointment [place] [address] 12/08/2024 12:00 PM EDT Appointment [place] [address] documented as of this encounter Visit Diagnoses Not on filedocumented in this encounter Care Teams Corporate Traffic Manager Relationship Specialty Start Date End Date Arelis Michele MD [address] [place] [address] PCP - General Family Medicine 08/01/18 02/11/24 documented as of this encounter
--- OUTSIDE RECORDS SUMMARY | 2024-04-24 21:05 | XMS_ITS | Encounter Summary ---
Author Organization [facility] [place] [address] Care Team Providers Care Field Evidence Technician Name Role Phone Arelis Michele MD Primary Care Provider [phone] Reason for Visit * Treatment/Therapy Plan Authorization (Routine) - Closed Specialty Diagnoses / Procedures Referred By Azam corbett Referred To Contact Rheumatology Diagnoses Rheumatoid arthritis, involving unspecified site, unspecified whether rheumatoid factor present Procedures INFUSION THERAPY TC RITUXIMAB, 10MG INJECTION Alice Carney [facility] [place] [address] Alice Carney [facility] [place] [address] Referral ID Status Reason Start Date Expiration Date Visits Re quested Visits Authorized [id number] Closed 01/10/2023 01/10/2024 99 101 Encounter Details Date Type Department Care Team (Latest Contact Info) Description 09/17/2023 10:58 AM EST - 09/17/2023 11:59 PM EST Hospital En[place] [address] Rheumatoid arthritis, involving unspecified site, unspecified whether [...] Take 10 mg by mouth daily. 05/16/2023 wuhckxrc-xlofgddca-ehlkc ethasone (MAXITROL) 3.5mg/mL-10,000 unit/mL-0.1 % Drops, Suspension [...] PM EDT Hospital En[place] [address] 05/14/2024 1:00 PM EDT Office Visit Dermatology at [address] [place] [address] 08/18/2024 10:00 AM EST Office [place] [address] Alice Carney, JUTE BAG SEWER [facility] [place] [address] 08/18/2024 12:00 PM EST Appointment [place] [address] 12/08/2024 12:00 PM EDT [place]oint[place] [address] documented as of this encounter Visit Diagnoses [...] mg documented in this encounter Care Teams Field Evidence Technician Relationship Specialty Start Date End Date Arelis Michele MD [address] [place] [address] PCP - General Family Medicine 08/01/18 02/11/24 documented as of this encounter
--- OUTSIDE RECORDS SUMMARY | 2024-04-24 21:05 | XMS_ITS | Encounter Summary ---
Author Organization [facility] [place] [address] Care Team Providers Care Assistant Case Manager Name Role Phone Arelis Michele MD Primary Care Provider [phone] Encounter Details Date Type Department Care Team (Late st Contact Info) Description 06/20/2022 Ancillary Procedure [place] [address] Alcie Carney [facility] [place] [address] Social History Tobacco Use Types Packs/Day Years [...] PM EDT Hospital En[place] [address] 05/14/2024 1:00 PM EDT Office Visit Dermatology at [facility] [address] [place] [address] 08/18/2024 10:00 AM EST Office [place] [address] Alice Carney APRN [facility] [place] [address] 08/18/2024 12:00 PM EST Appointment Med Infusion at [facility] [place] [address] 12/08/2024 12:00 PM EDT [place]oint[place] [address] documented as of this encounter Procedures Procedure Name Priority Date/Time Associated Diagnosis Comments FILM LIBRARY STORAGE ONLY CT HEAD Routine 06/20/2022 12:00 AM EDT documented in this encounter Results * Film Library- Storage Only CT Head (06/20/2022 12:00 AM EDT) Narrative [facility] - 06/21/2022 6:46 AM EDT This exam is auto-finalizing. It's purpose is for storage only. Alice Carney APRN IMG FILM LIBRARY ORD ERABLES [place], [place] documented in this encounter Visit Diagnoses Not on filedocumented in this encounter Care Teams Assistant Case Manager Relationship Specialty Start Date End Date Arelis Michele MD [address] [place] [address] PCP - General Family Medicine 08/01/18 02/11/24 documented as of this encounter
--- OUTSIDE RECORDS SUMMARY | 2024-04-24 21:06 | XMS_ITS | Encounter Summary ---
Author Organization [facility] [place] [address] Care Team Providers Care Stone Layout Marker Name Role Phone Arelis Michele MD Primary Care Provider [phone] Encounter Details Date Type Department Care Team (Late st Contact Info) Description 09/30/2019 9:32 AM EST Anesthesia Event [place] [address] Yung Dee MD [facility] DR [place] [address] Anesthesia Record Procedure Summary Procedure Name Responsible [...] 0921; median cubital vein (antecubital fossa), right; ppkn-yhy-yjilux catheter system; 22 gauge; Christine Carrero RN; [...] Procedure Summary Date: 09/30/19 Room / Location: [facility] ENDO 3 / [facility] Anesthesia Start: 931 Anesthesia Stop: 1025 Procedures: COLONOSCOPY, DIAGNOSTIC (N/A Trunk) COLONOSCOPY, POLYPECTOMY, REMOVAL LESION BY SNARE (WRVU 4.67) (N/A ) Diagnosis: (Recommend repeat colonoscopy in 3-6 months to confirm complete polyp resection depending on pathology.) Surgeon: Solitario Moody MD Responsible Provider: Yung Dee MD Anesthesia Type: MAC ASA Status: 3 All Anesthesia Providers: Anesthesiologist: Yung Dee MD CREDIT CONTROL OFFICER: Sarah Robertson CRNA Vitals Value Taken Time BP 130/103 09/30/2019 10:30 AM Temp Pulse Resp 18 09/30/2019 10:25 AM SpO2 96 % 09/30/2019 10:31 AM Pain Level 0 09/30/2019 10:25 AM Vitals shown include unvalidated device data. Patient Location: PACU/[facility] Level of Consciousness: Awake and [...] eye ??? Osteopenia ?? Osteopenia, DXA at [facility] in 06/2007. ?? Right wrist [...] 3.66) performed by Sarwat Villarreal MD at [facility] ENDOSCOPY ??? PRO COLONOSCOPY, REMV LESN, SNARE N/A 02/16/2019 COLONOSCOPY, POLYPECTOMY, REMOVAL LESION BY SNARE (WRVU 4.67) performed by Sarwat Villarreal MD at [facility] END[facility] ??? PRO UP GI ENDOSCOPY, BALL DIL, 30MM N/A 02/16/2019 EGD,WITH DILATION ESOPHAGUS WITH BALLOON,< 30 MM (WRVU 2.77) performed by Sarwat Villarreal MD at [facility] ??? PRO UPPER GI ENDOSCOPY, BIOPSY N/A 02/16/2019 EGD WITH BIOPSY (WRVU 2.49) performed by Sarwat Villarreal MD at [facility] Social History Tobacco Use ??? [...] risks discussed with patient. Plan discussed with CREDIT CONTROL OFFICER. PAT Clinic Note documented in this encounter Miscellaneous Notes * Addendum Note - Sarah Robertson CRNA - 09/30/2019 12:28 PM EST Addendum created 09/30/19 1228 by Sarah Robertson CRNA Intraprocedure Event edited, Intraprocedure Staff edited documented in this encounter Plan of Treatment Upcoming Encounters Date Type Department Care Team (Late st Contact Info) Description 04/28/2024 12:00 PM EDT Hospital Encounter [place] [address] 05/14/2024 1:00 PM EDT Office Visit Dermatology at [address] [place] [address] 08/18/2024 10:00 AM EST Office [place] [address] Alice Carney APRN [facility] [place] [address] 08/18/2024 12:00 PM EST Appointment [place] [address] 12/08/2024 12:00 PM EDT Appointment [place] [address] documented as of this encounter [...] r documented in this encounter Care Teams Stone Layout Marker Relationship Specialty Start Date End Date Arelis Michele MD [address] [place] [address] PCP - General Family Medicine 08/01/18 02/11/24 documented as of this encounter
--- OUTSIDE RECORDS SUMMARY | 2024-04-24 21:06 | XMS_ITS | Encounter Summary ---
Author Organization [facility] [place] [address] Care Team Providers Care Day Guard Name Role Phone Arelis Michele MD Primary Care Provider Encounter Details Date Type Department Care Team (Late st Contact Info) Description 02/14/2021 3:00 PM EDT Office Visit [place] [address] Alice Carney APRN [facility] [place] [address] Rheumatoid arthritis with positive rheumatoid factor, involving [...] this encounter Progress Notes * Alice Carney, MANAGER BACKGROUND - 02/14/2021 3:00 PM EDT Rheumatology Follow-up [...] liked to stay on it. Orencia tried 4016-7470 and stopped due to lack of efficacy and dyspnea. SSZ started 12/2020 and tried for about 2.5-3 weeks but stopped due to nausea, diarrhea, rash, wheezing worsened. No hx blood clots. Hx diverticulitis with 18 bowel resected. Cardiac stent at [facility] (no office notes on file, cath report showed single vessel mid-LAD dx stented03/2019), and followed at [facility]. Hx cardiomyopathy. Only able to use [...] up, in the morning they are curled [facility] blood work with Dr. Michele Not [...] Office Visit from 02/14/2021 in Rheumatology at [facility] Weight 102.5 kg (226 lb) Height 179 [...] hours. No active synovitis on exam today. terminal operations manager steroid use Continue with vit d supplementation, avoiding ca supplementation d/t kidney stones Continue with weightbearing activity Plan: Trial prednisone 10 mg daily x 14 days then follow up TH visit on 02/28/2021 to assess response. In the meantime, I requested information from [facility] cardiology (Per Sandra in [facility] Specialty she willfax Last OV Cardiology [...] PM EDT Hospital Encounter [place] [address] 05/14/2024 1:00 PM EDT Office Visit Dermatology at [facility] [address] [place] [address] 08/18/2024 10:00 AM EST Office [place] [address] Alice Carney APRN [facility] [place] [address] 08/18/2024 12:00 PM EST Appointment [place] [address] 12/08/2024 12:00 PM EDT Appointment [place] [address] documented as of this encounter Visit Diagnoses Diagnosis Rheumatoid arthritis with positive rheumatoid factor, involving unspecified site Cardiomyopathy, unspecified type documented in this encounter Care Teams Day Guard Relationship Specialty Start Date End Date Arelis Michele MD [address] [place] [address] PCP - General Family Medicine 08/01/18 02/11/24 documented as of this encounter
--- OUTSIDE RECORDS SUMMARY | 2024-04-24 21:06 | XMS_ITS | Encounter Summary ---
[place] [address] Care Team Providers Care Recycle Worker Name Role Phone Arelis Michele MD Primary Care Provider [phone] Encounter Details Date Type Department Care Team (Late st Contact Info) Description 03/10/2020 [place] [address] Vita Castaneda Social History Tobacco Use Types [...] Vita Castaneda - 03/10/2020 1:08 PM EDT [employer] calls to sched appt for pt. Called pt to schedule. No answer, lm on vm. Sending letter documented in this encounter Plan of Treatment Upcoming Encounters Date Type Department Care Team (Late st Contact Info) Description 04/28/2024 12:00 PM EDT Hospital En[place] [address] 05/14/2024 1:00 PM EDT Office Visit Dermatology at [address] [place] [address] 08/18/2024 10:00 AM EST Office [place] [address] Alice Carney APRN [facility] [place] [address] 08/18/2024 12:00 PM EST Appointment [place] [address] 12/08/2024 12:00 PM EDT [place]oint[place] [address] documented as of this encounter Visit Diagnoses Not on filedocumented in this encounter Care Teams Recycle Worker Relationship Specialty Start Date End Date Arelis Michele MD [address] [place] [address] PCP - General Family Medicine 08/01/18 02/11/24 documented as of this encounter
--- OUTSIDE RECORDS SUMMARY | 2024-04-24 21:06 | XMS_ITS | Encounter Summary ---
[place] [address] Care Team Providers Care Beam Sealer Name Role Phone Arelis Michele MD Primary Care Provider [phone] Reason for Visit * Reason Onset Date Comments Medication Refill 09/14/2019 Encounter Details Date Type Department Care Team (Late st Contact Info) Description 09/14/2019 Refill Cardiology at [address] [address] Cecilia Tejeda LPN Medication Refill Social History [...] - 09/14/2019 2:11 PM EST Fax from [employer] Atorvastatin 40 mg tablet- take 1 tablet [...] PM EDT Hospital [place] [address] 05/14/2024 1:00 PM EDT Office Visit Dermatology at [facility] [address] [place] [address] 08/18/2024 10:00 AM EST Office [place] [address] Alice Carney APRN [facility] [place] [address] 08/18/2024 12:00 PM EST [place] [address] 12/08/2024 12:00 PM EDT [place] [address] documented as of this encounter Visit Diagnoses Not on filedocumented in this encounter Care Teams Beam Sealer Relationship Specialty Start Date End Date Arelis Michele MD [address] [place] [address] PCP - General Family Medicine 08/01/18 02/11/24 documented as of this encounter
--- OUTSIDE RECORDS SUMMARY | 2024-04-24 21:06 | XMS_ITS | Encounter Summary ---
Author Organization Formerly [facility] [place] [address] Care Team Providers Care Combined Rail Operator Name Role Phone Arelis Michele MD Primary Care Provider [phone] Encounter Details Date Type Department Care Team (Late st Contact Info) Description 12/15/2020 3:00 PM EDT Office [place] [address] Dianne Norton, ROTARY ADJUSTER [facility] [place] [address] High risk medication use; Rheumatoid arthritis with [...] up, in the morning they are curled [facility] blood work with Dr. Michele Not [...] labs one month after starting ssz at [facility] Check CMP, CBC, CRP, ESR today [facility] steroid use Continue with vit d supplementation, avoiding ca supplementation d/t kidney stones Continue with weightbearing activity RTC 3 months with Alice 60min documented in this encounter Plan of Treatment Upcoming Encounters Date Type Department Care Team (Late st Contact Info) Description 04/28/2024 12:00 PM EDT Hospital En[place] [address] 05/14/2024 1:00 PM EDT Office Visit Dermatology at [address] [place] [address] 08/18/2024 10:00 AM EST [place] [address] Alice Carney APRN [facility] [place] [address] 08/18/2024 12:00 PM EST [place] [address] 12/08/2024 12:00 PM EDT [place] [address] documented as of this encounter Procedures Procedure [...] 4:04 PM EDT) Neutrophil % 56.4 % [facility] Neutrophil Absolute 5.07 1.70 - 6.10 x10(3)/[facility] Lymph % 30.2 % [facility] Lymphocytes Abs 2.7 0.9 - 3.2 x10(3)/[facility] Monocyte % 6.7 % [facility] Monocyte Abs 0.6 0.3 - 0.9 x10(3)/ L [facility] Eos % 6.0 % [facility] Eosinophils Abs 0.5(H) 0.0 - 0.4 x10(3)/[facility] Basophil % 0.6 % [facility] Baso Absolute 0.0 0.0 - 0.1 x10(3)/ L [facility] Immature Gran % 0.10 % [facility] Comment: Immature granulocytes(IG's)percentage and absolute count will include metamyelocytes, myelocytes, and promyelocytes. Blood smears from CBCs yielding IG's will be scanned manually for concordance. If this scan disagrees with the automated IG or if promyelocytes are noted, a manual differential will be performed. Immature Gran Absolute 0.01 0.00 - 0.04 x10(3)/ L [facility] Blood specimen (specimen) 12/15/2020 4:04 PM EDT 12/15/2020 4:09 PM EDT Narrative Resulting Agency Comment Spec In Lab Dianne Norton ROTARY ADJUSTER HEMATOLOGY ORDERABLE S [facility] [place] [address] * (ABNORMAL) Hemogram (12/15/2020 4:04 PM EDT) White Blood Cell 9.0 4.0 - 9.5 x10(3)/mc L [facility] Red Blood Cell 5.63(H) 4.58 - 5.54 x10(6)/mc L [facility] Hemoglobin 16.9(H) 13.7 - 16.5 gm/dL [facility] Hematocrit 51.2(H) 40.5 - 48.5 % [facility] Mean Cell Volume 90.9 82.9 - 93.1 fL [facility] Mean Cell Hemoglobin 30.0 27.5 - 32.1 pg [facility] Mean Cell Hemoglobin Concentration 33.0 32.0 - 35.7 gm/dL [facility] Platelet 237 145 - 357 x10(3)/mc L [facility] RDW Standard Deviation 44.3 36.0 - 45.0 fL [facility] RDW coefficient of variation 13.2 11.4 - 13.8 % [facility] Mean Platelet Volume 9.7 7.6 - 12.9 fL [facility] NRBC% auto 0.0 % [facility] NRBC Absolute 0.000 0.000 - 0.000 x10(3)/mc L [facility] Blood specimen (specimen) 12/15/2020 4:04 PM EDT 12/15/2020 4:09 PM EDT Narrative Resulting Agency Comment Spec In Lab Dianne Boswell Rayrayledy [facility] HEMATOLOGY ORDERABLE S [facility] [place] [address] * Sedimentation rate (12/15/2020 4:04 PM EDT) [facility] Sedimentation Rate Automated 5 3 - 46 mm/hr [facility] Comment: Effective August 12, 2019 new capillary photometric technology has resulted in a change in reference ranges. It is recommended that each ESR result be reviewed with its own age appropriate reference range. Blood specimen (specimen) 12/15/2020 4:04 PM EDT 12/15/2020 4:09 PM EDT Narrative Resulting Agency Comment Spec In Lab Dianne Norton APRN HEMATOLOGY ORDERABLE S Performing Organization Address City/[facility]/ZIP Co de Phone Number [facility] [place] [address] * CRP, acute inflammation (12/15/2020 4:04 PM EDT) [facility] C-Reactive Protein 3.4 <=4.9 mg/L [facility] Blood specimen (specimen) 12/15/2020 4:04 PM EDT 12/15/2020 4:09 PM EDT Narrative Resulting Agency Comment Spec In Lab Dianne Norton APRN CHEMISTRY ORDERABLES Performing Organization Address City/[facility]/ZIP Co de Phone Number [facility] [place] [address] * Comprehensive metabolic panel (non-fasting) (12/15/2020 4:04 PM EDT) [facility] Glucose 100 65 - 199 mg/dL [facility] Comment:Diabetes: >=200 mg/d L plus symptoms Blood Urea Nitrogen 12 10 - 20 mg/dL [facility] Creatinine 0.92 0.80 - 1.50 mg/dL [facility] Sodium 142 135 - 145 mmol/L [facility] Potassium 4.0 3.5 - 5.0 mmol/L [facility] Comment: Please note: ??Patients with WBC >100,000 may have falsely elevated Potassium levels. ??For accurate Potassium quantification in these patients send serum separator tube (gold top) for subsequent determinations. ??Contact the Clinical Chemistry Laboratory if there are any questions. Chloride 105 98 - 107 mmol/L [facility] Carbon Dioxide 28 22 - 31 mmol/L [facility] Anion Gap 9 5 - 15 mmol/L [facility] Calcium 9.5 8.5 - 10.5 mg/dL [facility] Protein, Total 6.7 6.1 - 8.0 gm/dL [facility] Albumin 4.2 3.2 - 5.2 gm/dL [facility] Aspartate Aminotransferase 24 0 - 39 unit/L [facility] Alanine Aminotransferase 19 0 - 55 unit/L [facility] Alkaline Phosphatase 124 40 - 130 unit/L [facility] Bilirubin, Total 0.4 0.2 - 1.3 mg/dL [facility] Est Glomerular Filtration Rate 83 >=60 mL/min/1. 73 m?? [facility] Comment: This patient? s [...] In Lab Dianne Norton APRN CHEMISTRY ORDERABLES [facility] [place] [address] documented in this encounter Visit Diagnoses Diagnosis High risk medication use Encounter for long-term (current) use of other medications Rheumatoid arthritis with positive rheumatoid factor, involving unspecified site documented in this encounter Care Teams Combined Rail Operator Relationship Specialty Start Date End Date Arelis Michele MD [address] [place] [address] PCP - General Family Medicine 08/01/18 02/11/24 documented as of this encounter
--- OUTSIDE RECORDS SUMMARY | 2024-04-24 21:06 | XMS_ITS | Encounter Summary ---
Author Organization [facility] [place] [address] Care Team Providers Care Clinical Laboratory Aide Name Role Phone Arelis Michele MD Primary Care Provider [phone] Encounter Details Date Type Department Care Team (Late st Contact Info) Description 04/06/2020 3:00 PM EDT Office [place] [address] Dianne Norton, PUBLIC HEALTH SANITARIAN [facility] [place] [address] Rheumatoid arthritis with positive rheumatoid factor, involving [...] more? Visit our health information library at [email or web address] You can also view health information on [employer]Arch[employer], your personal patient account. Log in or sign uptoday. Enter J005 in the search box to learn more about Rotator Cuff: Exercises. Current as of: November 02, 2019?Content Version: 12.5 ?? [facility]. Care instructions adapted under license by [facility]. If you have questions about a medical condition or this instruction, always ask your healthcare professional. [facility] disclaims any warranty or liability for your [...] diagnosis is. Treated by Dr. Sommers ([facility] Cardiology). History of depression - current management [...] gel to be used on L shoulder technician terminal and repeater steroid use -continue with medrol 2mg daily -continue with vit d supplementation, avoiding ca supplementation d/t kidney stones -continue with weightbearing activity Phone Call in 2wks documented in this encounter Plan of Treatment Upcoming Encounters Date Type Department Care Team (Late st Contact Info) Description 04/28/2024 12:00 PM EDT Hospital Encounter [place] [address] 05/14/2024 1:00 PM EDT Office Visit Dermatology at [address] [place] [address] 08/18/2024 10:00 AM EST Office Visit Rheumatology at [facility] [place] [address] Alice Carney, PUBLIC HEALTH SANITARIAN [facility] [place] [address] [address] 08/18/2024 12:00 PM EST Appointment Med Infusion at [facility] [place] [address] 12/08/2024 12:00 PM EDT Appointment Med Infusion at [facility] [place] [address] documented as of this encounter Procedures Procedure [...] * Differential, Automated (04/06/2020 4:18 PM EDT) Pathologist [facility] Neutrophil % 60.9 % [facility] Neutrophil Absolute 5.31 1.70 - 6.10 x10(3)/[facility] LABORATORY Lymph % 26.8 % [facility] Lymphocytes Abs 2.3 0.9 - 3.2 x10(3)/[facility] LABORATORY Monocyte % 7.7 % [facility] Monocyte Abs 0.7 0.3 - 0.9 x10(3)/[facility] LABORATORY Eos % 3.8 % [facility] Eosinophils Abs 0.3 0.0 - 0.4 x10(3)/[facility] LAB[facility] Basophil % 0.5 % [facility] Baso Absolute 0.0 0.0 - 0.1 x10(3)/[facility] LABORATORY Immature Gran % 0.30 % [facility] Comment: Immature granulocytes(IG's)percentage and absolute count will include metamyelocytes, myelocytes, and promyelocytes. Blood smears from CBCs yielding IG's will be scanned manually for concordance. If this scan disagrees with the automated IG or if promyelocytes are noted, a manual differential will be performed. Immature Gran Absolute 0.03 0.00 - 0.04 x10(3)/[facility] LABOR[facility]ORY Blood specimen (specimen) 04/06/2020 4:18 PM EDT 04/06/2020 4:23 PM EDT Narrative Resulting Agency Comment Spec In Lab Dianne Norton [facility] HEALTH SANITARIAN HEMATOLOGY ORDERABLE S [facility] [place] [address] * (ABNORMAL) Hemogram (04/06/2020 4:18 PM EDT) Pathologist [facility] White Blood Cell 8.7 4.0 - 9.5 x10(3)/[facility] LABORATORY Red Blood Cell 5.78(H) 4.58 - 5.54 x10(6)/mc L [facility] Hemoglobin 17.2(H) 13.7 - 16.5 gm/dL [facility] Hematocrit 52.8(H) 40.5 - 48.5 % [facility] Mean Cell Volume 91.3 82.9 - 93.1 fL [facility] Mean Cell Hemoglobin 29.8 27.5 - 32.1 pg [facility] Mean Cell Hemoglobin Concentration 32.6 32.0 - 35.7 gm/dL [facility] Platelet 283 145 - 357 x10(3)/mc L [facility] RDW Standard Deviation 48.9(H) 36.0 - 45.0 [facility] LABORAT[facility] RDW coefficient of variation 14.6(H) 11.4 - 13.8 % [facility] Mean Platelet Volume 9.8 7.6 - 12.9 [facility] NRBC% auto 0.0 % [facility] NRBC Absolute 0.000 0.000 - 0.000 x10(3)/mc L [facility] Blood specimen (specimen) 04/06/2020 4:18 PM EDT 04/06/2020 4:23 PM EDT Narrative Resulting Agency Comment Spec In Lab Dianne Norton [facility] SANITARIAN HEMATOLOGY ORDERABLE S Performing Organization Address City/State/[facility] Co de Phone Number [facility] [address] * Lipid Panel (Reflex Direct LDL) (04/06/2020 4:18 PM EDT) Cholesterol, Total 218 mg/dL [facility] Comment: Lower Risk: <200 mg/dL Average Risk: 200-239 mg/dL Higher Risk: >xh=905 mg/dL Triglyceride 184 mg/dL [facility] Comment: Average Risk/Lower Risk: <150 mg/dL Borderline High Risk: 150-199 mg/dL High Risk: 200-499 mg/dL Very High Risk: >yc=860 mg/dL HDL Cholesterol 56 mg/dL [facility] Comment: Males: ?? Higher Risk: <40 mg/dL Females: ?? HIgher Risk: <50 mg/dL LDL Cholesterol 125 mg/dL [facility] Comment: Lowest Risk: <100 mg/dL Lower Risk: 100-129 mg/dL Borderline High Risk: 130-159 mg/dL High Risk: 160-189 mg/dL Very High Risk: >qs=841 mg/dL Cholesterol/HDL Ratio 3.9 ratio [facility] Lipid Interpretation See Note [facility] Comment: Lipid management should be guided by a patient? s ASCVD risk, goals and preferences. ACC/AHA Guidelines recommend high intensity statin if clinical ASCVD or LDL greater than or equal to 190 mg/dL. [email or web address] Adults aged 40-75 with LDL 70-189 mg/dL should have their 10 year ASCVD risk estimated with the ACC/AHA ASCVD risk building estimator http://tools.acc.org/FZQSG-Qnwh-Sqzhvhjfz/ Statin should be discussed if risk greater [...] In Lab Dianne Norton APRN CHEMISTRY ORDERABLES [facility] [address] * (ABNORMAL) Sedimentation rate (04/06/2020 4:18 PM EDT) Sedimentation Rate Automated <3(L) 3 - 46 mm/hr [facility] Comment: Effective August 12, 2019 new capillary photometric technology has resulted in a change in reference ranges. It is recommended that each ESR result be reviewed with its own age appropriate reference range. Blood specimen (specimen) 04/06/2020 4:18 PM EDT 04/06/2020 4:23 PM EDT Narrative Resulting Agency Comment Spec In Lab Dianne Norton APRN HEMATOLOGY ORDERABLE S Performing Organization Address [facility] Co de Phone Number [facility] [address] * CRP, acute inflammation (04/06/2020 4:18 PM EDT) C-Reactive Protein 1.2 <=4.9 mg/L [facility] Blood specimen (specimen) 04/06/2020 4:18 PM EDT 04/06/2020 4:23 PM EDT Narrative Resulting Agency Comment Spec In Lab Dianne Norton APRN CHEMISTRY ORDERABLES Performing Organization Address [facility] Co de Phone Number [facility] [address] * Comprehensive metabolic panel (non-fasting) (04/06/2020 4:18 PM EDT) Glucose 101 65 - 199 mg/dL [facility] Comment:Diabetes: >=200 mg/d L plus symptoms Blood Urea Nitrogen 13 10 - 20 mg/dL [facility] Creatinine 0.99 0.80 - 1.50 mg/dL [facility] Sodium 141 135 - 145 mmol/L [facility] Potassium 4.3 3.5 - 5.0 mmol/L [facility] Comment: Please note: ??Patients with WBC >100,000 may have falsely elevated Potassium levels. ??For accurate Potassium quantification in these patients send serum separator tube (gold top) for subsequent determinations. ??Contact the Clinical Chemistry Laboratory if there are any questions. Chloride 105 98 - 107 mmol/L [facility] Carbon Dioxide 25 22 - 31 mmol/L [facility] Anion Gap 11 5 - 15 mmol/L [facility] Calcium 9.2 8.5 - 10.5 mg/dL [facility] Protein, Total 6.7 6.1 - 8.0 gm/dL [facility] Albumin 4.5 3.2 - 5.2 gm/dL [facility] Aspartate Aminotransferase 17 0 - 39 unit/L [facility] Alanine Aminotransferase 15 0 - 55 unit/L [facility] Alkaline Phosphatase 85 40 - 130 unit/L [facility] Bilirubin, Total 0.4 0.2 - 1.3 mg/dL [facility] Est Glomerular Filtration Rate 76 >=60 mL/min/1. 73 m?? [facility] Comment: The eGFR was calculated using the CKD-EPI equation. As with all creatinine based estimates of kidney function, eGFR values calculated with the CKD-EPI equation are not accurate in patients with acute kidney failure, extremes of body mass or the acutely ill. [email or web address] HENRYETTAnkf eGFR 88 >=60 mL/min/1. 73 m?? [facility] Comment: The eGFR was calculated using the CKD-EPI equation. As with all creatinine based estimates of kidney function, eGFR values calculated with the CKD-EPI equation are not accurate in patients with acute kidney failure, extremes of body mass or the acutely ill. [email or web address]/[email or web address]ETT[facility]kf Blood specimen (specimen) 04/06/2020 4:18 PM EDT 04/06/2020 4:23 PM EDT Narrative Resulting Agency Comment Spec In Lab Dianne Norton APRN CHEMISTRY ORDERABLES [facility] [address] documented in this encounter Visit Diagnoses Diagnosis Rheumatoid arthritis with positive rheumatoid factor, involving unspecified site Hypercholesterolemia Pure hypercholesterolemia documented in this encounter Care Teams Clinical Laboratory Aide Relationship Specialty Start Date End Date Arelis Michele MD [address] [place] [address] PCP - General Family Medicine 08/01/18 02/11/24 documented as of this encounter
--- OUTSIDE RECORDS SUMMARY | 2024-04-24 21:06 | XMS_ITS | Encounter Summary ---
Author Organization Formerly [facility] [place] [address] Care Team Providers Care Construction Driller Name Role Phone Arelis Michele MD Primary Care Provider [phone] Encounter Details Date Type Department Care Team (Late st Contact Info) Description 08/29/2020 2:00 PM EST Office [place] [address] Setven Soliz MD [facility] [place] [address] SOB (shortness of breath); Cough variant asthma [...] for sputum to be dropped off at [facility] for bacterial/AFB cultures.Is spirometry and cross-sectional imaging are all scheduled for today for appointment. His sputum was collected on 05/25/2020 and was AFB negative but did return positive for MSSA. He has Symbicort and albuterol at home. He only uses his Symbicort PRN (last used earlier this month) but doesn't believe it's made any symptomatic benefit. 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 Labs: 05/25/20 Sputum AFB ([facility]): Negative stain/culture 05/25/20 Sputum culture ([facility]): MSSA PFTS: DATE FVC FEV1 FEV1/FVC DLCO TLC RV MOTTLER OPERATOR? 06/16/13 70% 73% 77% 91% -- -- [...] mainstem bronchi without radiographically significant airway collapse Special Events Manager view showing relatively similar appearance of [...] Section of Pulmonary & Critical Care Pager: [phone] documented in this encounter Plan of Treatment Upcoming Encounters Date Type Department Care Team (Late st Contact Info) Description 04/28/2024 12:00 PM EDT Hospital Encounter [place] [address] 05/14/2024 1:00 PM EDT Office Visit Dermatology at [address] [address] 08/18/2024 10:00 AM EST Office [place] [address] Alice Carney, [facility] [place] [address] 08/18/2024 12:00 PM EST Appointment [place] [address] 12/08/2024 12:00 PM EDT Appointment [place] [address] documented as of this encounter Visit Diagnoses Diagnosis SOB (shortness of breath) Shortness of breath Cough variant asthma Cough variant asthma documented in this encounter Care Teams Construction Driller Relationship Specialty Start Date End Date Arelis Michele MD [address] [place] [address] PCP - General Family Medicine 08/01/18 02/11/24 documented as of this encounter
--- OUTSIDE RECORDS SUMMARY | 2024-04-24 21:06 | XMS_ITS | Encounter Summary ---
[place] [address] Care Team Providers Care Table Games Manager Name Role Phone Arelis Michele MD Primary Care Provider [phone] Reason for Visit * Reason Comments Prior Authorization Xeljanz 11mg tablet Encounter Details Date Type Department Care Team (Late st Contact Info) Description 05/29/2021 Specialty [place] [address] Sesar Jin Social History Tobacco Use Types [...] [place]uther[place] Cyndie Patient : 1950 Patient Address: [address] [address] (home) Medication Name: XELJANZ XR 11 MG TABLET,EXTENDED RELEASE Medication ID: Patient Location: [facility] Patient Location Comment: Subscriber Insurance: [employer] Medicare Subscriber Insurance Comment: Phone: Fax: Physician: DELPHINE CARNEY Physician Comment: Sent Via: [facility] Jack: [id number] Ref/Case/PA#: Medication Strength Frequency Requested: Xelajnz 11mg tablet. Take one tablet by mouth once daily Qty/Day Supply: New Start: New to Therapy Diagnosis & ICD-10 Code: M05.9 Patient Notified: No Submission Notes: None Sesar Jin 05/29/21 3:49 PM * Sesar Jin - 05/29/2021 3:47 PM EDT [facility], Prior Authorization Approval Medication Name: XELJANZ XR 11 MG TABLET,EXTENDED RELEASE Medication ID: Approval Dates: 09/02/2020 to 09/01/2021 Insurance requirements/notes: None Other Notes: None Case/Reference #: [id number] Approval notification Received via: [facility] Copay: $776.55 Copay assistance: Copay Notes: Insurance mandated Pharmacy: [facility] Fillable at [facility]: Yes Pharmacy staff will be reaching out to the patient to inform them of their medication's [facility]. If applicable, a pharmacist will speak with the patient to offer our specialty pharmacy services and to arrange delivery of their medication. Sesar Jin 05/31/21 9:29 AM documented in this encounter Plan of Treatment Upcoming Encounters Date Type Department Care Team (Late st Contact Info) Description 04/28/2024 12:00 PM EDT Hospital En[place] [address] 05/14/2024 1:00 PM EDT Office Visit Dermatology at [facility] [address] [place] [address] 08/18/2024 10:00 AM EST Office [place] [address] Delphine Carney APRN [facility] [place] [address] 08/18/2024 12:00 PM EST [place] [address] 12/08/2024 12:00 PM EDT [place] [address] documented as of this encounter Visit Diagnoses Not on filedocumented in this encounter Care Teams Table Games Manager Relationship Specialty Start Date End Date Arelis Michele MD [address] [place] [address] PCP - General Family Medicine 08/01/18 02/11/24 documented as of this encounter
--- OUTSIDE RECORDS SUMMARY | 2024-04-24 21:06 | XMS_ITS | Encounter Summary ---
[place] [address] Care Team Providers Care Help Desk Team Leader Name Role Phone Arelis Michele MD Primary Care Provider [phone] Encounter Details Date Type Department Care Team (Late st Contact Info) Description 09/30/2019 9:15 AM EST - 09/30/2019 10:00 AM EST [place] [address] Solitario Moody MD [facility] [place] [address] COLONOSCOPY, DIAGNOSTIC (WRVU 3.26) Social History Tobacco [...] sent through Care Everywhere. * Colonoscopy: Post-op (Syriac) documented in this encounter Medications at Time [...] Moody MD - 09/30/2019 10:18 AM EST [facility] Operative Note Patient Name: Wesly Ybarra : [id number] MR#: [id number] Case Date: 09/30/2019 Surgeon: Surgeon(s) and Role: [...] PM EDT Hospital En[place] [address] 05/14/2024 1:00 PM EDT Office Visit Dermatology at [address] [place] [address] 08/18/2024 10:00 AM EST Office Visit Rheumatology at [facility] [place] [address] Alice Carney APRN [facility] [place] [address] 08/18/2024 12:00 PM EST [place] [address] 12/08/2024 12:00 PM EDT [place] [address] documented as of this encounter Procedures Procedure Name Priority Date/Time Associated Diagnosis Comments SPECIMEN TO PATHOLOGY Routine 09/30/2019 10:14 AM EST SPECIMEN TO PATHOLOGY Routine 09/30/2019 10:14 AM EST SPECIMEN TO PATHOLOGY Routine 09/30/2019 10:14 AM EST SURGICAL PATHOLOGY REPORT Routine 09/30/2019 9:57 AM EST Colonoscopy, Remv Lesn, Snare ([id number]) 09/30/2019 9:38 AM EST Recommend repeat colonoscopy in 3-6 months to confirm complete polyp resection depending on pathology. Colonoscopy, Diagnostic ([id number]) 09/30/2019 9:38 AM EST Recommend repeat colonoscopy in 3-6 months to confirm complete polyp resection depending on pathology. COLONOSCOPY Routine 09/30/2019 9:26 AM EST documented in this encounter Results * Specimen to Pathology (09/30/2019 10:14 AM EST) AP Specimen 09/30/2019 10:1 4 AM EST 09/30/2019 10:14 AM EST Narrative [facility] - 09/30/2019 10:14 AM EST Specimen requisition ordered. ??Separate Pathology report to follow Solitario Moody MD PATHOLOGY/CYTOLOGY O NANCY Performing Organization Address City/[facility] Co de Phone Number [facility] [place] [address] * Specimen to Pathology (09/30/2019 10:14 AM EST) AP Specimen 09/30/2019 10:1 4 AM EST 09/30/2019 10:14 AM EST Narrative [facility] - 09/30/2019 10:14 AM EST Specimen requisition ordered. ??Separate Pathology report to follow Solitario Moody MD PATHOLOGY/CYTOLOGY O NANCY Performing Organization Address [facility] [place] [address] * Specimen to Pathology (09/30/2019 10:14 AM EST) AP Specimen 09/30/2019 10:1 4 AM EST 09/30/2019 10:14 AM EST Narrative [facility] - 09/30/2019 10:14 AM EST Specimen requisition ordered. ??Separate Pathology report to follow Solitario Moody MD PATHOLOGY/CYTOLOGY O NANCY Performing Organization Address [facility] [place] [address] * Surgical Pathology Report (09/30/2019 9:57 AM EST) Final Diagnosis [id number] ? Location: ; EA10; A The signing pathologist has (i) examined the relevant preparation(s) for the specimen(s) and (ii) rendered or confirmed the diagnosis(es). . ?Surgical Pathology DIAGNOSIS A - Ascending colon, polypectomy: Tubular adenoma. B - Transverse colon, polypectomy: Tubular adenoma. C - Rectosigmoid colon, polypectomy: Benign mucosal prolapse polyp. CR-PX Electronically signed by: ??Suriawinata MD, Arief A Verified: ??10/02/2019 ?Pathologist Performed at: ??-[facility] Dept. of Pathology, [place], [place] CLINICAL INFORMATION Specimen Submitted: A - [...] labeled C1. ??apb 10/02/2019 10:53 AM EST [facility] GI Biopsy 09/30/2019 9:57 AM EST 09/30/2019 9:57 AM EST GI Biopsy 09/30/2019 9:57 AM EST 09/30/2019 9:57 AM EST GI Biopsy 09/30/2019 9:57 AM EST 09/30/2019 9:57 AM EST Solitario Moody MD PATHOLOGY/CYTOLOGY O RDERABLES [facility] [place] [address] * COLONOSCOPY (09/30/2019 9:26 AM EST) COLONOSCOPY [facility] Endoscopy Procedure Date: 09/30/2019 9:26 AM ? Patient Name: Wesly Ybarra ? Date of : 1950 ? Age: 68 ? Order #: [id number] ? Instrument Name: [id number] ? Procedure: ? Colonoscopy Indications: ? High risk colon cancer surveillance: ? Personal history of colonic polyps Providers: ? Solitario Moody, Tara Peter, ? RN, Uriah Smith Referring MD: ?Arelis Michele MD Medicines: ? Propofol [...] CRNA) documented in this encounter Care Teams Help Desk Team Leader Relationship Specialty Start Date End Date Arelis Michele MD [address] [place] [address] PCP - General Family Medicine 08/01/18 02/11/24 documented as of this encounter
--- OUTSIDE RECORDS SUMMARY | 2024-04-24 21:06 | XMS_ITS | Encounter Summary ---
[place] [address] Care Team Providers Care Humanities Professor Name Role Phone Arelis Michele MD Primary Care Provider [phone] Reason for Visit * Reason Onset Date Comments Other 03/09/2021 infusion Encounter Details Date Type Department Care Team (Late st Contact Info) Description 03/09/2021 Telephone [place] [address] Lionel Rabago RN Other (infusion) Social History [...] - 03/09/2021 1:47 PM EDT Billie from [facility] infusion calls. Infusion order (RTX) with no dose. Also, difficult to read additional information listed in regards to lab work and when to complete. Requires order with dose and clarification of lab work request. documented in this encounter Plan of Treatment Upcoming Encounters Date Type Department Care Team (Late st Contact Info) Description 04/28/2024 12:00 PM EDT Hospital Encounter [place] [address] 05/14/2024 1:00 PM EDT Office Visit Dermatology at [address] [address] 08/18/2024 10:00 AM EST Office [place] [address] Alice Carney [facility] [address] 08/18/2024 12:00 PM EST Appointment [place] [address] 12/08/2024 12:00 PM EDT Appointment [place] [address] documented as of this encounter Visit Diagnoses Not on filedocumented in this encounter Care Teams Humanities Professor Relationship Specialty Start Date End Date Arelis Michele MD [address] [place] [address] PCP - General Family Medicine 08/01/18 02/11/24 documented as of this encounter
--- OUTSIDE RECORDS SUMMARY | 2024-04-24 21:06 | XMS_ITS | Encounter Summary ---
[place] [address] Care Team Providers Care Primary Health Organisation Manager Name Role Phone Arelis Michele MD Primary Care Provider Encounter Details Date Type Department Care Team (Late st Contact Info) Description 05/16/2020 Telephone [place] [address] Guera Holloway LNA Social History Tobacco Use [...] PM EDT Hospital Encounter [place] [address] 05/14/2024 1:00 PM EDT Office Visit Dermatology at [address] [place] [address] 08/18/2024 10:00 AM EST Office [place] [address] Alice Carney APRN [facility] [place] [address] 08/18/2024 12:00 PM EST Appointment [place] [address] 12/08/2024 12:00 PM EDT Appointment [place] [address] documented as of this encounter Visit Diagnoses Not on filedocumented in this encounter Care Teams Primary Health Organisation Manager Relationship Specialty Start Date End Date Arelis Michele MD [address] [place] [address] PCP - General Family Medicine 08/01/18 02/11/24 documented as of this encounter
--- OUTSIDE RECORDS SUMMARY | 2024-04-24 21:06 | XMS_ITS | Encounter Summary ---
Author Organization [facility] [place] [address] Care Team Providers Care Billet Cutter Name Role Phone Arelis Michele MD Primary Care Provider [phone] Encounter Details Date Type Department Care Team (Latest Contact Info) Description 05/26/2021 11:00 AM EDT TH Visit (TeleHealth) [place] [address] Alice Carney, [employer] [facility] [place] [address] Rheumatoid arthritis with positive rheumatoid factor, involving unspecified site; Hypercholesterolemia; High risk medication use; Cardiomyopathy, unspecified type; Coronary artery disease, unspecified vessel or lesion type, unspecified whether angina present, unspecified whether wilton or transplanted heart; Osteoporosis, unspecified osteoporosis type, [...] information. I will reach out to your human resources executive assistant re treatment options to see if they have a preference re the options available. You will need to get lab tests done in mid-June. I sent the orders to [facility] (they are listed on this After Visit Summary). I ordered a DEXA (bone density test) at your last visit to be done at [facility]. You should call radiology to schedule [...] visit was conducted via telephone due to [place]antara restrictions. I advised Leeanne Agee thatthis telephone [...] overload. I spoke with ASHLEY Wise, in [facility] infusion lab this morning -- last infusion was in 2018 for name brand Rituximab. ?? Orencia tried 7305-0265 and stopped due to lack of efficacy [...] take NSAID per cardiology CAD and CMP: [facility] Cardiology OV notes from 09/27/2020 (Leeanne Munoz MD) reviewed 02/28/2021. ?? CAD: s/p CABG (Patient Denies!) and s/p mid LAD stent March 2019. Additional workup with CPET planned at [facility] for eval of [...] for all medications. Labs and infusions at [facility]. Interval History: Current treatment for RA: Ruxience 1000 mg IV Q16W started [facility] 03/21/2021 (next scheduled for 07/13/2021) Symptoms without treatment: hands with AM curling/clenching and tightness for several hours. He responded well to Ruxience treatment. Fingers joints feel better in the AM -- 70-75% better. They are not clenched up which was a primary issue prior to treatment. He tolerated treatment well. No issues with fluid overload. Note that on 03/21/2021 [facility] Rheumatology nurse confirmed with ASHLEY Wise, that [facility] infusion labthat per their [...] resection Osteoporosis with pathologic vertebral fracture per [facility] notes but not on file at [facility]. Physical Examination: Not [...] Knees: Crepitus and FROM bl DATA: Labs: [facility] 03/2021 unremarkable CBC, CMP [...] and isosorbide. I reached out to his human resources executive assistant via internal staff message re issues with a vailable options. Patient will need to recheck lipid panel, TB Quant Gold, Hepatitis screen, CBC, CMP prior to initiation. Osteoporosis with history of pathologic vertebral fracture: DEXA ordered at 02/28/2021 office visit to be done at [facility]. Continue with vit d supplementation, avoiding calcium supplementation due to kidney stones. Continue with weightbearing activity as tolerated. Follow up telephone visit scheduled for Saturday08/18/2021 at 11AM. Minutes spent today associated with the office visit including during the visit, chart review, and documentation: 60 Orders routed to [facility]: Orders Placed This Encounter Procedures ??? [...] PM EDT Hospital Encounter [place] [address] 05/14/2024 1:00 PM EDT Office Visit Dermatology at [place] [address] [place] [address] 08/18/2024 10:00 AM EST Office [place] [address] Alice Carney APRN [facility] [place] [address] 08/18/2024 12:00 PM EST Appointment [place] [address] 12/08/2024 12:00 PM EDT Appointment [place] [address] documented as of this encounter Visit Diagnoses Diagnosis Rheumatoid arthritis with positive rheumatoid factor, involving unspecified site Hypercholesterolemia Pure hypercholesterolemia High risk medication use Encounter for long-term (current) use of other medications Cardiomyopathy, unspecified type Coronary artery disease, unspecified vessel or lesion type, unspecified whether angina present, unspecified whether wilton or transplanted heart Osteoporosis, unspecified osteoporosis type, unspecified pathological fracture presence documented in this encounter Care Teams Billet Cutter Relationship Specialty Start Date End Date Arelis Michele MD [address] [place] [address] PCP - General Family Medicine 08/01/18 02/11/24 documented as of this encounter
--- OUTSIDE RECORDS SUMMARY | 2024-04-24 21:06 | XMS_ITS | Encounter Summary ---
Author Organization [facility] [place] [address] Care Team Providers Care Coil Maker Name Role Phone Arelis Michele MD Primary Care Provider [phone] Encounter Details Date Type Department Care Team (Late st Contact Info) Description 04/21/2020 [place] [address] Himanshu Castellon Social History Tobacco Use Types [...] PM EDT Hospital En[place] [address] 05/14/2024 1:00 PM EDT Office Visit Dermatology at [facility] [address] [place] [address] 08/18/2024 10:00 AM EST Office [place] [address] Alice Carney APRN [facility] [place] [address] 08/18/2024 12:00 PM EST Appointment [place] [address] 12/08/2024 12:00 PM EDT Appointment [place] [address] documented as of this encounter Visit Diagnoses Not on filedocumented in this encounter Care Teams Coil Maker Relationship Specialty Start Date End Date Arelis Michele MD [address] [place] [address] PCP - General Family Medicine 08/01/18 02/11/24 documented as of this encounter
--- OUTSIDE RECORDS SUMMARY | 2024-04-24 21:06 | XMS_ITS | Encounter Summary ---
Author Organization [facility] [address] Care Team Providers Care Manager Background Name Role Phone Arelis Michele MD Primary Care Provider [phone] Encounter Details Date Type Department Care Team (Late st Contact Info) Description 05/29/2021 [place] [address] Alice Carney CATALOGUE LIBRARIAN [facility] [place] [address] Social History Tobacco Use Types Packs/Day Years [...] PM EDT Hospital En[place] [address] 05/14/2024 1:00 PM EDT Office Visit Dermatology at [facility] [address] [place] [address] 08/18/2024 10:00 AM EST Office [place] [address] Alice Carney, CATALOGUE LIB[employer]ARIAN [facility] [place] [address] 08/18/2024 12:00 PM EST Appointment [place] [address] 12/08/2024 12:00 PM EDT Appointment [place] [address] documented as of this encounter Visit Diagnoses Not on filedocumented in this encounter Care Teams Manager Background Relationship Specialty Start Date End Date Arelis Michele MD [address] [place] [address] PCP - General Family Medicine 08/01/18 02/11/24 documented as of this encounter
--- OUTSIDE RECORDS SUMMARY | 2024-04-24 21:06 | XMS_ITS | Encounter Summary ---
Author Organization [facility] [place] [address] Care Team Providers Care Swiss Machinist Name Role Phone Arelis Michele MD Primary Care Provider [phone] Encounter Details Date Type Department Care Team (Late Contact Info) Description 05/11/2020 [place] [address] Guera Holloway LNA Social History [...] PM EDT Hospital En[place] [address] 05/14/2024 1:00 PM EDT Office Visit Dermatology at [facility] [address] [place] [address] 08/18/2024 10:00 AM EST [place] [address] Alice Carney APRN [facility] [place] [address] 08/18/2024 12:00 PM EST [place] [address] 12/08/2024 12:00 PM EDT [place] [address] documented as of this encounter Visit Diagnoses Not on filedocumented in this encounter Care Teams Swiss Machinist Relationship Specialty Start Date End Date Arelis Michele MD [address] [place] [address] PCP - General Family Medicine 08/01/18 02/11/24 documented as of this encounter
--- OUTSIDE RECORDS SUMMARY | 2024-04-24 21:06 | XMS_ITS | Encounter Summary ---
Author [place] [address] Care Team Providers Care Business Change Manager Name Role Phone Arelis Michele MD Primary Care Provider [phone] Encounter Details Date Type Department Care Team (Late st Contact Info) Description 06/01/2021 [place] [address] Mariela Ritter, [facility] Social History Tobacco Use Types Packs/Day Years [...] Telephone Encounter - Mariela Ritter [facility] - 06/01/2021 2:27 PM EDT will fill Xeljanz when needed (rinvoq was changed/incorrectly typed below) * Telephone Encounter - Mariela Ritter [facility] - 06/01/2021 2:16 PM EDT I spoke with Wesly in regards to Rinvoq. Rinvoq increases his risk for cardiovascular issues (stroke/heart attack). Which he is aware of. Per Alice Madrid, carpenters is aware that patient does not have [...] going to get his labs done at [facility] tomorrow. Labs were sent there on 05/26. We will follow up with [facility] to get labs sent to [facility] Rheum. He is aware that he cannot start Rinvoq until on or after 07/13/21. We will hold off sending Rinvoqto patient until then. documented in this encounter Plan of Treatment Upcoming Encounters Date Type Department Care Team (Late st Contact Info) Description 04/28/2024 12:00 PM EDT Hospital En[place] [address] 05/14/2024 1:00 PM EDT Office Visit Dermatology at [address] [address] 08/18/2024 10:00 AM EST [place] [address] Alice Carney, DERRICKMAN HELPER [facility] [place] [address] 08/18/2024 12:00 PM EST Appointment [place] [address] 12/08/2024 12:00 PM EDT [place] [address] documented as of this encounter Visit Diagnoses Not on filedocumented in this encounter Care Teams Business Change Manager Relationship Specialty Start Date End Date Arelis Michele MD [address] [place] [address] PCP - General Family Medicine 08/01/18 02/11/24 documented as of this encounter
--- OUTSIDE RECORDS SUMMARY | 2024-04-24 21:06 | XMS_ITS | Encounter Summary ---
Author Organization [facility] [place] [address] Care Team Providers Care County Program Technician Name Role Phone Arelis Michele MD Primary Care Provider [phone] Reason for Referral * Diagnostic Test (Routine) - Closed Specialty Diagnoses / Procedures Referred By Azam corbett Referred To Contact Radiology Diagnoses ZEPEDA (dyspnea on exertion) Diaphragm paralysis Procedures CT Chest wo Contrast (Generic) Steven Soliz MD [facility] [place] [address] [facility] [place] [address] Referral ID Status Reason Start Date Expiration Date V isits Requested Visits Authorized [id number] Closed Specialty Service Requested 05/23/2020 11/20/2021 1 1 Encounter Details Date Type Department Care Team (Late st Contact Info) Description 05/23/2020 [place] [address] Steven Soliz MD [facility] [place] [address] ZEPEDA (dyspnea on exertion); Diaphragm [...] PM EDT Hospital [place] [address] 05/14/2024 1:00 PM EDT Office Visit Dermatology at [facility] [address] [place] [address] 08/18/2024 10:00 AM EST Office [place] [address] Alice Carney APRN [facility] [place] [address] 08/18/2024 12:00 PM EST [place] [address] 12/08/2024 12:00 PM EDT [place] [address] documented as of this encounter Results * [...] ? Electronically signed by: Parisa Alejandro MD, [facility] ([phone]), at 08/29/2020 5:15 PM Narrative 08/29/2020 5:15 [...] 06/08/2015 FINDINGS: Trachea morphology: ? Central airways uctdcshv-eb-shyxqkihu luminal dimensions: Trachea at level of aortic [...] radiograph 06/08/2015 FINDINGS: Trachea morphology: Central airways qkukewoa-hw-fvoioqswj luminal dimensions: Trachea at level of aortic [...] structures: Stable anterior compression deformity of the N23bfuhnikyl body. No suspicious lytic or sclerotic osseous [...] diaphragm documented in this encounter Care Teams County Program Technician Relationship Specialty Start Date End Date Arelis Michele MD [address] [place] [address] PCP - General Family Medicine 08/01/18 02/11/24 documented as of this encounter
--- OUTSIDE RECORDS SUMMARY | 2024-04-24 21:06 | XMS_ITS | Encounter Summary ---
[place] [address] Care Team Providers Care Office Professional Name Role Phone Arelis Michele MD Primary Care Provider [phone] Reason for Visit * Reason Onset Date Comments Questions 03/21/2021 Encounter Details Date Type Department Care Team (Late st Contact Info) Description 03/21/2021 Telephone [place] [address] Lionel Rabago, RN Questions Social History Tobacco [...] the original note were not included. Alice Carney APRN to Me ?? 11:42 PM I'm sorry [...] - 03/21/2021 10:28 AM EDT Billie from [facility] infusion calls. Due for RTX tomorrow. [...] PM EDT Hospital [place] [address] 05/14/2024 1:00 PM EDT Office Visit Dermatology at [address] [address] 08/18/2024 10:00 AM EST Office [place] [address] Alice Carney APRN [facility] [place] [address] 08/18/2024 12:00 PM EST [place] [address] 12/08/2024 12:00 PM EDT [place] [address] documented as of this encounter Visit Diagnoses Not on filedocumented in this encounter Care Teams Office Professional Relationship Specialty Start Date End Date Arelis Michele MD [address] [place] [address] PCP - General Family Medicine 08/01/18 02/11/24 documented as of this encounter
--- OUTSIDE RECORDS SUMMARY | 2024-04-24 21:06 | XMS_ITS | Encounter Summary ---
[place] [address] Care Team Providers Care Agency Service Coordinator Name Role Phone Arelis Michele MD Primary Care Provider [phone] Encounter Details Date Type Department Care Team (Latest Contact Info) Description 09/30/2019 8:20 AM EST - 09/30/2019 10:57 AM EST Hospital En[place] [address] Solitario Moody MD [facility] [place] [address] Discharge Disposition: Home Social History Tobacco Use [...] sent through Care Everywhere. * Colonoscopy: Post-op (Mongolian) documented in this encounter Medications at Time [...] Moody MD - 09/30/2019 10:18 AM EST [facility] Operative Note Patient Name: Wesly Ybarra : [id number] MR#: [id number] Case Date: 09/30/2019 Surgeon: Surgeon(s) and Role: [...] PM EDT Hospital [place] [address] 05/14/2024 1:00 PM EDT Office Visit Dermatology at [address] [place] [address] 08/18/2024 10:00 AM EST [place] [address] Alice Carney APRN [facility] [place] [address] 08/18/2024 12:00 PM EST [place] [address] 12/08/2024 12:00 PM EDT [place] [address] documented as of this encounter Procedures Procedure Name Priority Date/Time Associated Diagnosis Comments SPECIMEN TO PATHOLOGY Routine 09/30/2019 10:14 AM EST SPECIMEN TO PATHOLOGY Routine 09/30/2019 10:14 AM EST SPECIMEN TO PATHOLOGY Routine 09/30/2019 10:14 AM EST SURGICAL PATHOLOGY REPORT Routine 09/30/2019 9:57 AM EST Colonoscopy, Remv Tamanna, Snare ([id number]) 09/30/2019 9:38 AM EST Recommend repeat colonoscopy in 3-6 months to confirm complete polyp resection depending on pathology. Colonoscopy, Diagnostic ([id number]) 09/30/2019 9:38 AM EST Recommend repeat colonoscopy in 3-6 months to confirm complete polyp resection depending on pathology. COLONOSCOPY Routine 09/30/2019 9:26 AM EST documented in this encounter Results * Specimen to Pathology (09/30/2019 10:14 AM EST) AP Specimen 09/30/2019 10:1 4 AM EST 09/30/2019 10:14 AM EST Narrative [facility] - 09/30/2019 10:14 AM EST Specimen requisition ordered. ??Separate Pathology report to follow Solitario Moody MD PATHOLOGY/CYTOLOGY O RDERABLES [facility] [place] [address] * Specimen to Pathology (09/30/2019 10:14 AM EST) AP Specimen 09/30/2019 10:1 4 AM EST 09/30/2019 10:14 AM EST Narrative [facility] - 09/30/2019 10:14 AM EST Specimen requisition ordered. ??Separate Pathology report to follow Solitario Moody MD PATHOLOGY/CYTOLOGY O NANCY Performing Organization Address [facility] [place] [place] [address] * Specimen to Pathology (09/30/2019 10:14 AM EST) AP Specimen 09/30/2019 10:1 4 AM EST 09/30/2019 10:14 AM EST Narrative [facility] - 09/30/2019 10:14 AM EST Specimen requisition ordered. ??Separate Pathology report to follow Solitario Moody MD PATHOLOGY/CYTOLOGY O NANCY Performing Organization Address [facility] [place] [address] * Surgical Pathology Report (09/30/2019 9:57 AM EST) Final Diagnosis [id number] ? Location: ; [facility]; A The signing pathologist has (i) examined the relevant preparation(s) for the specimen(s) and (ii) rendered or confirmed the diagnosis(es). . ?Surgical Pathology DIAGNOSIS A - Ascending colon, polypectomy: Tubular adenoma. B - Transverse colon, polypectomy: Tubular adenoma. C - Rectosigmoid colon, polypectomy: Benign mucosal prolapse polyp. CR-PX Electronically signed by: ??Biju Adorno MD Verified: ??10/02/2019 ?Pathologist Performed at: ??-[facility] Dept. of Pathology, [place], [place] CLINICAL INFORMATION Specimen Submitted: A - [...] labeled C1. ??apb 10/02/2019 10:53 AM EST [facility] GI Biopsy 09/30/2019 9:57 AM EST 09/30/2019 9:57 AM EST GI Biopsy 09/30/2019 9:57 AM EST 09/30/2019 9:57 AM EST GI Biopsy 09/30/2019 9:57 AM EST 09/30/2019 9:57 AM EST Solitario Moody MD PATHOLOGY/CYTOLOGY O RDERABLES [facility] [place] [address] * COLONOSCOPY (09/30/2019 9:26 AM EST) COLONOSCOPY [facility] Endoscopy Procedure Date: 09/30/2019 9:26 AM ? Patient Name: Wesly Ybarra ? Date of : 1950 ? Age: 68 ? Order #: [id number] ? Instrument Name: [id number] ? Procedure: ? Colonoscopy Indications: ? High risk colon cancer surveillance: ? Personal history of colonic polyps Providers: ? Solitario Moody, Tara Peter, ? ASHLEY, Uriah Smith Referring MD: ?Arelis Michele MD [...] CRNA) documented in this encounter Care Teams Agency Service Coordinator Relationship Specialty Start Date End Date Arelis Michele MD [address] [place] [address] PCP - General Family Medicine 08/01/18 02/11/24 documented as of this encounter
--- OUTSIDE RECORDS SUMMARY | 2024-04-24 21:06 | XMS_ITS | Encounter Summary ---
Author Organization [facility] [place] [address] Care Team Providers Care Process Engineer Name Role Phone Arelis Michele MD Primary Care Provider Reason for Visit * Reason Comments Right Knee Pain right knee pain,disc uss MRI * Consultation (Urgent) - Closed Specialty Diagnoses / Procedures Referred By Azam corbett Referred To Contact Orthopaedics Diagnoses Right leg swelling Injury of right lower extremity, subsequent encounter Right knee pain Dianne Norton APRN [facility] [place] [address] [facility] [address] [place] [phone] Referral ID Status Reason Start Date Expiration Date V isits Requested Visits Authorized [id number] Closed Consult, Test & Treat 07/22/2019 07/21/2020 1 1 Encounter Details Date Type Department Care Team (Late st Contact Info) Description 08/11/2019 1:00 PM EST [place] [address] [facility] [place] [address] Sprain of right knee, unspecified [...] me [at the request of Dianne Norton, [place] [address]] for the above chief complaint. HPI: The [...] physical therapy 3 times a week in [place]. He has noted improvements but it is [...] 3.66) performed by Sarwat Villarreal MD at [facility] ENDOSCOPY ??? PRO COLONOSCOPY, REMV LESN, SNARE N/A 02/16/2019 COLONOSCOPY, POLYPECTOMY, REMOVAL LESION BY SNARE (WRVU 4.67) performed by Sarwat Villarreal MD at [facility] ENDOSCOPY ??? PRO UP GI ENDOSCOPY, BALL DIL, 30MM N/A 02/16/2019 EGD,WITH DILATION ESOPHAGUS WITH BALLOON,< 30 MM (WRVU 2.77) performed by Sarwat Villarreal MD at [facility] ENDOSCOPY ??? PRO UPPER GI ENDOSCOPY, BIOPSY N/A 02/16/2019 EGD WITH BIOPSY (WRVU 2.49) performed by Sarwat Villarreal MD at [facility] ENDOSCOPY Medications were reviewed with the patient [...] file Gets together: Not on file Attends orthodoxy service: Not on file Active member of [...] studies: X-rays and MRI reviewed performed at [facility] reviewed including the report and [...] less than $20,000 # People Supported 1 [place]er, , No, not [place]er// Race White Health Literacy Somewhat Currently working [...] Db Lara MD MS Orthopaedic Surgery Pager: [phone] documented in this encounter Plan of Treatment Upcoming Encounters Date Type Department Care Team (Late st Contact Info) Description 04/28/2024 12:00 PM EDT Hospital [place] [address] 05/14/2024 1:00 PM EDT Office Visit Dermatology at [facility] [address] [place] [address] 08/18/2024 10:00 AM EST [place] [address] Alice Carney, INTERNET MARKETING DIRECTOR [facility] [place] [address] 08/18/2024 12:00 PM EST [place] [address] 12/08/2024 12:00 PM EDT [place] [address] Scheduled Referrals Name Type Priority Associated Diagnoses Order Schedule Referral to Orthopaedics Outpatient Referral Routine Right leg swelling Injury of right lower extremity, subsequent encounter Ordered: 07/22/2019 documented as of this encounter Visit Diagnoses Diagnosis Sprain of right knee, unspecified ligament, initial encounter documented in this encounter Care Teams Process Engineer Relationship Specialty Start Date End Date Arelis Michele MD [address] [place] [address] PCP - General Family Medicine 08/01/18 02/11/24 documented as of this encounter
--- OUTSIDE RECORDS SUMMARY | 2024-04-24 21:06 | XMS_ITS | Encounter Summary ---
Author Organization [facility] [place] [address] Care Team Providers Care Director Of Accreditation Name Role Phone Arelis Michele MD Primary Care Provider [phone] Encounter Details Date Type Department Care Team (Late st Contact Info) Description 05/12/2020 Telephone [place] [address] Juany Romo Social History Tobacco Use Types [...] EDT Hospital Encounter [place] [address] 05/14/2024 1:00 PM EDT Office Visit Dermatology at [facility] [address] [place] [address] 08/18/2024 10:00 AM EST Office Visit [place] [address] Alice Carney, ATTENDANT SALES [facility] [place] [place] [address] 08/18/2024 12:00 PM EST Appointment [place] [address] 12/08/2024 12:00 PM EDT Appointment [place] [address] documented as of this encounter Visit Diagnoses Not on filedocumented in this encounter Care Teams Director Of Accreditation Relationship Specialty Start Date End Date Arelis Michele MD [address] [place] [address] PCP - General Family Medicine 08/01/18 02/11/24 documented as of this encounter
--- OUTSIDE RECORDS SUMMARY | 2024-04-24 21:06 | XMS_ITS | Encounter Summary ---
Author [place] [address] Care Team Providers Care Human Anatomy Teacher Name Role Phone Arelis Michele MD Primary Care Provider [phone] Reason for Visit * Reason Onset Date Comments Other 01/04/2021 Encounter Details Date Type Department Care Team (Late st Contact Info) Description 01/04/2021 [place] [address] Cristian Bhandari RN Other Social History Tobacco [...] 1:13 PM EDT RTC to Billie at [facility] infusion and she reports that she will need a dc Orencia order faxed to [phone]. I let her know that I will send this request to Dianne Norton. documented in this encounter Plan of Treatment Upcoming Encounters Date Type Department Care Team (Late st Contact Info) Description 04/28/2024 12:00 PM EDT Hospital En[place] [address] 05/14/2024 1:00 PM EDT Office Visit Dermatology at [facility] [address] [place] [address] 08/18/2024 10:00 AM EST [place] [address] Alice Carney, PROGRESSIVE CARE MANAGER [facility] [place] [address] 08/18/2024 12:00 PM EST [place] [address] 12/08/2024 12:00 PM EDT [place] [address] documented as of this encounter Visit Diagnoses Not on filedocumented in this encounter Care Teams Human Anatomy Teacher Relationship Specialty Start Date End Date Arelis Michele MD [address] [place] [address] PCP - General Family Medicine 08/01/18 02/11/24 documented as of this encounter
--- OUTSIDE RECORDS SUMMARY | 2024-04-24 21:06 | XMS_ITS | Encounter Summary ---
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) Discharge [...] PM EDT Hospital En[place] [address] 05/14/2024 1:00 PM EDT Office Visit Dermatology at [address] [address] 08/18/2024 10:00 AM EST Office [place] [address] Alice Carney APRN [facility] [address] 08/18/2024 12:00 PM EST [place]oint[place] [address] 12/08/2024 12:00 PM EDT [place] [address] documented as of this encounter Procedures Procedure [...] / FVC LLN 62 % COMPAS PFT GPE30-69 Actual Pre-BD 1.67 L/s COMPAS PFT UDV34-83 Pre-BD % of Predicted 70 % COMPAS PFT BQF18-79 Predicted 2.39 L/s COMPAS PFT ARZ23-52 Pre-BD Z-Score -0.78 COMPAS PFT DLCO Hb [...] abnormality documented in this encounter Care Teams Brick And Block Mason Relationship Specialty Start Date End Date Arelis Michele MD [address] [place] [address] PCP - General Family Medicine 08/01/18 02/11/24 documented as of this encounter
--- OUTSIDE RECORDS SUMMARY | 2024-04-24 21:06 | XMS_ITS | Encounter Summary ---
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 06/16/13 70% 73% 77% 91% -- -- [...] Section of Pulmonary & Critical Care Pager: [phone] documented in this encounter Plan of Treatment Upcoming Encounters Date Type Department Care Team (Late st Contact Info) Description 04/28/2024 12:00 PM EDT Hospital [place] [address] 05/14/2024 1:00 PM EDT Office Visit Dermatology at [address] [address] 08/18/2024 10:00 AM EST [place] [address] Alice Carney, [facility] [place] [address] 08/18/2024 12:00 PM EST [place] [address] 12/08/2024 12:00 PM EDT [place] [address] documented as of this encounter Results * [...] / FVC LLN 62 % COMPAS PFT HSN51-13 Actual Pre-BD 1.67 L/s COMPAS PFT LGK77-60 Pre-BD % of Predicted 70 % COMPAS PFT QEX16-96 Predicted 2.39 L/s COMPAS PFT QMB47-69 Pre-BD Z-Score -0.78 COMPAS PFT DLCO Hb [...] abnormality documented in this encounter Care Teams Harness Worker Relationship Specialty Start Date End Date Arelis Michele MD [address] [place] [address] PCP - General Family Medicine 08/01/18 02/11/24 documented as of this encounter
--- OUTSIDE RECORDS SUMMARY | 2024-04-24 21:06 | XMS_ITS | Encounter Summary ---
[place] [address] Care Team Providers Care Health And Social Care Teacher Name Role Phone Arelis Michele MD Primary Care Provider [phone] Encounter Details Date Type Department Care Team (Late st Contact Info) Description 03/08/2021 Telephone [place] [address] Juany Romo Social History Tobacco Use Types [...] PM EDT Hospital Encounter [place] [address] 05/14/2024 1:00 PM EDT Office Visit Dermatology at [facility] [address] [place] [address] 08/18/2024 10:00 AM EST Office [place] [address] Alice Carney APRN [facility] [place] [address] 08/18/2024 12:00 PM EST Appointment [place] [address] 12/08/2024 12:00 PM EDT Appointment [place] [address] documented as of this encounter Visit Diagnoses Not on filedocumented in this encounter Care Teams Health And Social Care Teacher Relationship Specialty Start Date End Date Arelis Michele MD [address] [place] [address] PCP - General Family Medicine 08/01/18 02/11/24 documented as of this encounter
--- OUTSIDE RECORDS SUMMARY | 2024-04-24 21:06 | XMS_ITS | Encounter Summary ---
Author Organization [facility] [place] [address] Care Team Providers Care Fruit Preserver Name Role Phone Arelis Michele MD Primary Care Provider [phone] Encounter Details Date Type Department Care Team (Late st Contact Info) Description 03/24/2021 External Results [place] [address] Alice Carney APRN [facility] [place] [address] Social History Tobacco Use Types Packs/Day Years [...] PM EDT Hospital Encounter [place] [address] 05/14/2024 1:00 PM EDT Office Visit Dermatology at [facility] [address] [place] [address] 08/18/2024 10:00 AM EST Office [place] [address] Alice Carney APRN [facility] [place] [address] 08/18/2024 12:00 PM EST Appointment [place] [address] 12/08/2024 12:00 PM EDT Appointment [place] [address] documented as of this encounter Procedures Procedure Name Priority Date/Time Associated Diagnosis Comments INFUSION THERAPY Routine 03/24/2021 documented in this encounter Results * Infusion therapy (03/24/2021) Alice Carney APRN INFUSION - IV ORDERA BLES documented in this encounter Visit Diagnoses Not on filedocumented in this encounter Care Teams Fruit Preserver Relationship Specialty Start Date End Date Arelis Michele MD [address] [place] [address] PCP - General Family Medicine 08/01/18 02/11/24 documented as of this encounter
--- OUTSIDE RECORDS SUMMARY | 2024-04-24 21:06 | XMS_ITS | Encounter Summary ---
Author Organization [facility] [place] [address] Care Team Providers Care Wood Floor Refinisher Name Role Phone Arelis Michele MD Primary Care Provider Reason for Referral * Diagnostic Test (Routine) - Closed Specialty Diagnoses / Procedures Referred By Contac t Referred To Contact Radiology Diagnoses ZEPEDA (dyspnea on exertion) Diaphragm paralysis Procedures CT Chest wo Contrast (Generic) Steven Soliz MD [facility] [place] [place] [address] [facility] [place] [address] Referral ID Status Reason Start Date Expiration Date V isits Requested Visits Authorized [id number] Closed Specialty Service Requested 05/23/2020 11/20/2021 1 1 Reason for Visit * Diagnostic Test (Routine) - Closed Specialty Diagnoses / Procedures Referred By Contac t Referred To Contact Radiology Diagnoses ZEPEDA (dyspnea on exertion) Diaphragm paralysis Procedures CT Chest wo Contrast (Generic) Steven Soliz MD [facility] [place] [address] [facility] [place] [address] Referral ID Status Reason Start Date Expiration Date V isits Requested Visits Authorized [id number] Closed Specialty Service Requested 05/23/2020 11/20/2021 1 1 Encounter Details Date Type Department Care Team (Latest Contact Info) Description 08/29/2020 11:37 AM EST - 08/29/2020 12:40 PM EST Hospital Encounter CT Scan at [facility] [place] [address] Steven Soliz MD [facility] [place] [address] ZEPEDA (dyspnea on exertion); Diaphragm paralysis Discharge [...] PM EDT Hospital En[place] [address] 05/14/2024 1:00 PM EDT Office Visit Dermatology at [address] [place] [address] 08/18/2024 10:00 AM EST Office [place] [address] Alice Carney APRN [facility] [place] [id number] 08/18/2024 12:00 PM EST [place] [address] 12/08/2024 12:00 PM EDT [place]oint[place] [address] documented as of this encounter [...] 06/08/2015 FINDINGS: Trachea morphology: ? Central airways merupztd-ms-lsbimbxle luminal dimensions: Trachea at level of aortic [...] radiograph 06/08/2015 FINDINGS: Trachea morphology: Central airways lsyqerev-ex-rgvotppbr luminal dimensions: Trachea at level of aortic [...] structures: Stable anterior compression deformity of the [id number] body. No suspicious lytic or sclerotic osseous [...] diaphragm documented in this encounter Care Teams Wood Floor Refinisher Relationship Specialty Start Date End Date Arelis Michele MD [address] [place] [address] PCP - General Family Medicine 08/01/18 02/11/24 documented as of this encounter
--- OUTSIDE RECORDS SUMMARY | 2024-04-24 21:06 | XMS_ITS | Encounter Summary ---
Author Organization [facility] [place] [address] Care Team Providers Care Installer Name Role Phone Arelis Michele MD Primary Care Provider [phone] Encounter Details Date Type Department Care Team (Latest Contact Info) Description 02/28/2021 10:00 AM EDT TH Visit (TeleHealth) [place] [address] Alice Carney, INTERNAL COMBUSTION ENGINE SUBASSEMBLER [facility] [place] [address] Osteoporosis, unspecified osteoporosis type, unspecified pathological fracture [...] overload. I spoke with ASHLEY Wise, in [facility] infusion lab this morning -- last infusion was in 2017 for name brand Rituximab. Orencia tried 1351-9853 and stopped due to lack of efficacy and dyspnea. SSZ started 12/2020 and tried for about 2.5-3 weeks but stopped due to nausea, diarrhea, rash, wheezing worsened. Treatment considerations: 02/14/2021 Denied hx blood clots. + Hx diverticulitis with 18 bowel resected. + CMP. SOB/ZEPEDA -- multifactorial as noted elsewhere. CAD and CMP: [facility] Cardiology OV notes from 09/27/2020 (Wesly Munoz MD) reviewed today (02/28/2021). ?? CAD: s/p CABG (Patient Denies!) and s/p mid LAD stent March 2019. Additional workup with CP[facility] planned at [facility] [place] of ongoing SOB (Patient says [...] up, in the morning they are curled [facility] blood work with Dr. Michele Not [...] resection Osteoporosis with pathologic vertebral fracture per [facility] notes but not on file at [facility]. Physical Examination: Not done (telephone visit) Patient [...] hours. No active synovitis on exam today. senior living steroid use: Will need to limit. Plan: He is limited in options for treatment as noted at last visit. He would like to resume Rituxan if affordable. SE/AE reviewed. I will order infusions for administration at [facility]. Reviewed that bioequivalent may be covered. Assuming this will be covered, he will get labs including CBC, BMP, Quant IGGs 1 week before 1st infusion at [facility]. Caution re fluid overload with instructions sent in order to [facility] re close monitoring and to schedule [...] activity DEXA ordered to be done at [facility]. Follow up scheduled for 05/26/2021 at [...] PM EDT Hospital [place] [address] 05/14/2024 1:00 PM EDT Office Visit Dermatology at [facility] [address] [place] [address] 08/18/2024 10:00 AM EST Office [place] [address] Alice Carney APRN [facility] [place] [address] 08/18/2024 12:00 PM EST [place] [address] 12/08/2024 12:00 PM EDT [place] [address] documented as of this encounter Procedures Procedure [...] site documented in this encounter Care Teams Installer Relationship Specialty Start Date End Date Arelis Michele MD [address] [place] [address] PCP - General Family Medicine 08/01/18 02/11/24 documented as of this encounter
--- OUTSIDE RECORDS SUMMARY | 2024-04-24 21:06 | XMS_ITS | Encounter Summary ---
Author Organization [facility] [place] [address] Care Team Providers Care Payroll Specialist Name Role Phone Arelis Michele MD Primary Care Provider [phone] Encounter Details Date Type Department Care Team (Late st Contact Info) Description 05/12/2020 [place]phone [place] [address] Juany Romo Social History Tobacco Use Types [...] PM EDT Hospital En[place] [address] 05/14/2024 1:00 PM EDT Office Visit Dermatology at [facility] [address] [place] [address] 08/18/2024 10:00 AM EST Office [place] [address] Alice Carney, RADIATION MONITOR [facility] [place] [address] 08/18/2024 12:00 PM EST [place]oint[place] [address] 12/08/2024 12:00 PM EDT [place]oint[place] [address] documented as of this encounter Visit Diagnoses Not on filedocumented in this encounter Care Teams Payroll Specialist Relationship Specialty Start Date End Date Arelis Michele MD [address] [place] [address] PCP - General Family Medicine 08/01/18 02/11/24 documented as of this encounter
--- OUTSIDE RECORDS SUMMARY | 2024-04-24 21:06 | XMS_ITS | Encounter Summary ---
[place] [address] Care Team Providers Care Deadener Name Role Phone Arelis Michele MD Primary Care Provider [phone] Encounter Details Date Type Department Care Team (Late st Contact Info) Description 06/07/2020 Telephone [place] [address] Guera Holloway LNA Social History [...] PM EDT Hospital Encounter [place] [address] 05/14/2024 1:00 PM EDT Office Visit Dermatology at [facility] [address] [place] [address] 08/18/2024 10:00 AM EST Office [place] [address] Alice Carney APRN [facility] [place] [address] 08/18/2024 12:00 PM EST Appointment [place] [address] 12/08/2024 12:00 PM EDT Appointment [place] [address] documented as of this encounter Visit Diagnoses Not on filedocumented in this encounter Care Teams Deadener Relationship Specialty Start Date End Date Arelis Michele MD [address] [place] [address] PCP - General Family Medicine 08/01/18 02/11/24 documented as of this encounter
--- OUTSIDE RECORDS SUMMARY | 2024-04-24 21:06 | XMS_ITS | Encounter Summary ---
Author Organization [facility] [place] [address] Care Team Providers Care Director Of Blood Name Role Phone Arelis Michele MD Primary Care Provider [phone] Encounter Details Date Type Department Care Team (Late st Contact Info) Description 04/26/2021 Orders [place] [address] Alice Carney APRN [facility] [place] [address] Social History Tobacco Use Types Packs/Day Years [...] PM EDT Hospital En[place] [address] 05/14/2024 1:00 PM EDT Office Visit Dermatology at [facility] [address] [place] [address] 08/18/2024 10:00 AM EST Office [place] [address] Alice Carney, HISTOTECHNICIAN [facility] [place] [address] 08/18/2024 12:00 PM EST Appointment [place] [address] 12/08/2024 12:00 PM EDT Appointment [place] [address] documented as of this encounter Visit Diagnoses Not on filedocumented in this encounter Care Teams Director Of Blood Relationship Specialty Start Date End Date Arelis Michele MD [address] [place] [address] PCP - General Family Medicine 08/01/18 02/11/24 documented as of this encounter
--- OUTSIDE RECORDS SUMMARY | 2024-04-24 21:06 | XMS_ITS | Encounter Summary ---
Author Organization [facility] [place] [address] Care Team Providers Care Skin Diver Name Role Phone Arelis Michele MD Primary Care Provider [phone] Reason for Visit * Reason Comments Medication Refill Encounter Details Date Type Department Care Team (Late st Contact Info) Description 12/31/2019 Refill Cardiology at [address] [address] Sean Manzano II, MD [facility] [place] [address] Medication Refill Social History Tobacco Use Types [...] PM EDT Hospital En[place] [address] 05/14/2024 1:00 PM EDT Office Visit Dermatology at [facility] [address] [place] [address] 08/18/2024 10:00 AM EST Office [place] [address] Alice Carney APRN [facility] [place] [address] 08/18/2024 12:00 PM EST [place]oint[place] [address] 12/08/2024 12:00 PM EDT [place]oint[place] [address] documented as of this encounter Visit Diagnoses Not on filedocumented in this encounter Care Teams Skin Diver Relationship Specialty Start Date End Date Arelis Michele MD [address] [place] [address] PCP - General Family Medicine 08/01/18 02/11/24 documented as of this encounter
--- OUTSIDE RECORDS SUMMARY | 2024-04-24 21:06 | XMS_ITS | Encounter Summary ---
[place] [address] Care Team Providers Care Portable Pinch Riveter Name Role Phone Arelis Michele MD Primary Care Provider [phone] Reason for Visit * Reason Comments Specialty Pharmacy Review Tofacitinib (X eljanz) Encounter Details Date Type Department Care Team (Late st Contact Info) Description 05/29/2021 Specialty [place] [address] Mariela Ritter [facility] Social History Tobacco Use Types Packs/Day Years [...] this encounter Progress Notes * Mariela Ritter [facility] - 05/29/2021 9:01 AM EDT The [facility] has completed a benefits investigation for Wesly Ybarra to review their eligibility to fill at [facility]. Per patient's medication list they are prescribedXeljanz and the medication is able to be filled at the [facility]. documented in this encounter Plan of Treatment Upcoming Encounters Date Type Department Care Team (Late st Contact Info) Description 04/28/2024 12:00 PM EDT Hospital Encounter [place] [address] 05/14/2024 1:00 PM EDT Office Visit Dermatology at [facility] [address] [place] [address] 08/18/2024 10:00 AM EST Office [place] [address] Alice Carney APRN [facility] [place] [address] 08/18/2024 12:00 PM EST Appointment [place] [address] 12/08/2024 12:00 PM EDT Appointment [place] [address] documented as of this encounter Visit Diagnoses Not on filedocumented in this encounter Care Teams Portable Pinch Riveter Relationship Specialty Start Date End Date Arelis Michele MD [address] [place] [address] PCP - General Family Medicine 08/01/18 02/11/24 documented as of this encounter
--- OUTSIDE RECORDS SUMMARY | 2024-04-24 21:06 | XMS_ITS | Encounter Summary ---
Author Organization [facility] [place] [address] Care Team Providers Care Exhibitor Sales Name Role Phone Arelis Michele MD Primary Care Provider [phone] Encounter Details Date Type Department Care Team (Latest Contact Info) Description 04/19/2020 3:00 PM EDT TH Visit (TeleHealth) [place] [address] Dianne Norton APRN [facility] [place] [address] High risk medication use; Rheumatoid arthritis with [...] which wasunremarkable. He went to ED at [facility]. No tick bites, but does work [...] taking 1000mg APAP. No NSAID. Going to [place] for 14 days on Saturday He is [...] what diagnosis is. Treated by Dr. Sommers ([facility]). History of depression - current [...] [facility]. [facility] I will [facility] today. He will get blood work the month after his first infusion. We will get blood work done at [place]. We did discuss that he has degenerative disease as well, and that Orencia would not treat that pain. I requested he call pulmonology to schedule an appointment. joint terminal attack controller steroid use -continue with medrol 2mg daily [...] PM EDT Hospital En[place] [address] 05/14/2024 1:00 PM EDT Office Visit Dermatology at [facility] [address] [place] [address] 08/18/2024 10:00 AM EST Office [place] [address] Alice Carney APRN [facility] [address] 08/18/2024 12:00 PM EST [place] [address] 12/08/2024 12:00 PM EDT [place] [address] documented as of this encounter Visit Diagnoses Diagnosis High risk medication use Encounter for long-term (current) use of other medications Rheumatoid arthritis with positive rheumatoid factor, involving unspecified site documented in this encounter Care Teams Exhibitor Sales Relationship Specialty Start Date End Date Arelis Michele MD [address] [place] [address] PCP - General Family Medicine 08/01/18 02/11/24 documented as of this encounter
--- OUTSIDE RECORDS SUMMARY | 2024-04-24 21:06 | XMS_ITS | Encounter Summary ---
[place] [address] Care Team Providers Care Assistant Professor Of Theater Name Role Phone Arelis Michele MD Primary Care Provider [phone] Reason for Visit * Reason Onset Date Comments Labs Only 04/11/2020 Encounter Details Date Type Department Care Team (Late st Contact Info) Description 04/11/2020 Tele[place] [address] Lionel Rabago RN Labs Only Social History [...] were not included. Dianne Norton APRN [facility] [place] ?? Please tell patients recent labs look good, thank you * Telephone Encounter - Lionel Rabago RN - 04/11/2020 3:02 PM EDT Dianne Norton APRN Sent: Jeimy April 10, 2020 ??9:07 PM To: [facility] [place] ?? Message Please relay results to pt. Red blood cells show changes likely related to his pulmonary issues. Please remind him he needs to schedule appt with them. Triglycerides a bit high. Other labs look good. THank you ----- Message ----- [facility]: Kevin, [facility] Sent: 04/06/2020 ?? 4:37 PM EDT To: Dianne Norton APRN Left with call back number provided. documented in this encounter Plan of Treatment Upcoming Encounters Date Type Department Care Team (Late st Contact Info) Description 04/28/2024 12:00 PM EDT Hospital Encounter [place] [address] 05/14/2024 1:00 PM EDT Office Visit Dermatology at [address] [address] 08/18/2024 10:00 AM EST Office [place] [address] Alice Carney APRN [facility] [place] [address] 08/18/2024 12:00 PM EST [place]ointment [place] [address] 12/08/2024 12:00 PM EDT Appointment [place] [address] documented as of this encounter Visit Diagnoses Not on filedocumented in this encounter Care Teams Assistant Professor Of Theater Relationship Specialty Start Date End Date Arelis Michele MD [address] [place] [address] PCP - General Family Medicine 08/01/18 02/11/24 documented as of this encounter
--- OUTSIDE RECORDS SUMMARY | 2024-04-24 21:07 | XMS_ITS | Encounter Summary ---
[place] [address] Care Team Providers Care Marketing Rep Name Role Phone Arelis Michele MD Primary Care Provider [phone] Reason for Visit * Reason Onset Date Comments Other 07/07/2019 Encounter Details Date Type Department Care Team (Late st Contact Info) Description 07/07/2019 [place] [address] Lionel Rabago RN Other Social History Tobacco [...] were not included. Dianne Norton, ITA [facility] Nurse ?? Please call pt and relay the following: I reviewed [facility] ED notes. I would [...] to us Spoke with patient, went to [facility] last Saturday. States was instructed to [...] updated on imaging. He is currently in [place]. Patient states that his right leg/knee has [...] PM EDT Hospital [place] [address] 05/14/2024 1:00 PM EDT Office Visit Dermatology at [address] [address] 08/18/2024 10:00 AM EST Office [place] [address] Alice Carney APRN [facility] [place] [address] 08/18/2024 12:00 PM EST [place] [address] 12/08/2024 12:00 PM EDT [place]oint[place] [address] documented as of this encounter Visit Diagnoses Not on filedocumented in this encounter Care Teams Marketing Rep Relationship Specialty Start Date End Date Arelis Michele MD [address] [place] [address] PCP - General Family Medicine 08/01/18 02/11/24 documented as of this encounter
--- OUTSIDE RECORDS SUMMARY | 2024-04-24 21:07 | XMS_ITS | Encounter Summary ---
Author Organization [facility] [place] [address] Care Team Providers Care Restuarant Crew Worker Name Role Phone Arelis Michele MD Primary Care Provider [phone] Reason for Visit * Auth/Cert Specialty Diagnoses / Procedures Referred By Contmabel t Referred To Contact Diagnoses CAD (coronary artery disease) Abnormal stress test [R94.39]/Chest discomfort [R07.89] Post-Op monitoring Procedures PRG CATH PLMT LEFT HEART CATH & ARTS W/INJ & ANGIO IMG S&I CARDIAC CATHETERIZATION CORONARY ANGIOGRAPHY; W LHC,POSSIBLE PCI Referral ID Status Reason Start Date Expiration Date Visits Re quested Visits Authorized [id number] 1 1 Encounter Details Date Type Department Care Team (Late st Contact Info) Description 03/20/2019 9:30 AM EDT - 03/21/2019 9:40 AM EDT Hospital Encounter [place] [address] Sean Manzano II, MD [facility] [address] Abnormal stress test; Chest discomfort Discharge Disposition: [...] Leeanne Ybarra Patient Age: 68 y.o. Language: Djiboutian Race: White Ethnicity: Not nor Admit date: [...] eye ??? Osteopenia ?? Osteopenia, DXA at [facility] in 06/2007. ?? Right wrist fracture [...] regional WMA's) who presented to his primary civil preparedness training officer Dr. Sommers with chronic stable angina in [...] appointments: -During 8am-5pm Saturday through Saturday call [phone] to speak with a nurse in the cardiology clinic -All other times call [phone] and ask to speak to the commercial mortgage broker automation tender. MEDICATIONS - you need to be on [...] Primary care provider: Cardiology: Arelis Michele MD [phone] Follow up as planned or as needed. Dr. Sommers Expect a call next week to schedule 4-6 week follow up appointment General Instructions None Discharge References/Attachments None DONAVAN Fonseca Interventional Cardiology 03/21/19 8:00 AM //Isael Bedoya MD Interventional Director Drug Safety documented in this encounter Discharge Instructions * Patient Instructions* Isael Bedoya S - 03/20/2019 1:43 PM EDT Discharge Instructions following cardiac catheterization Cardiology Instructions Call your doctor if you experience: Chest pain, dyspnea, pain or swelling in legs occurs. If you have non-emergent questions between now and the time of your follow up appointments: -During 8am-5pm Saturday through Saturday call [phone] to speak with a nurse in the cardiology clinic -All other times call [phone] and ask to speak to the commercial mortgage broker automation tender. MEDICATIONS - you need to be on [...] Primary care provider: Cardiology: Arelis Michele MD [phone] Follow up as planned or as needed. [...] 1950 Admit date: 03/20/2019 Attending Physician: Sean Maznano II, MD Leeanne Ybarra discharged to Home by private car with brother. All belongings sent with patient. DARRELL removed, incision healing well, no hematoma, skin free from pressure ulcers. 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 Groin site soft to palpation. monitoring coordinator applied. 03/20/19 1521 Adult Vital Signs Temp [...] regional WMA's) who presented to his primary civil preparedness training officer Dr. 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 Osteopenia ?? Osteopenia, DXA at [facility] in 06/2007. ?? Right wrist fracture [...] file Gets together: Not on file Attends oriental orthodox service: Not on file Active member of [...] Manzano II - 03/20/2019 1:06 PM EDT [facility] Operative Note LEEANNE YBARRA March 20, 2019 [id number] Test Fixture Assembler - Preliminary Findings Procedures: coronary angiography left [...] PM EDT Hospital [place] [address] 05/14/2024 1:00 PM EDT Office Visit Dermatology at [address] [place] [address] 08/18/2024 10:00 AM EST [place] [address] Alice Carney APRN [facility] [place] [address] 08/18/2024 12:00 PM EST [place] [phone] 12/08/2024 12:00 PM EDT [place] [address] documented as of this encounter Procedures Procedure Name Priority Date/Time Associated Diagnosis Comments LARGE ENGINE ASSEMBLER SCAN 03/23/2019 12:00 AM EDT EKG 12-LEAD [...] in this encounter Results * SCAN DOC: LARGE ENGINE ASSEMBLER (03/23/2019 12:00 AM EDT) Anatomical Region Laterality [...] (Bezet) 443 ms MUSE SYSTEM Calculated P Mayfield 28 degrees MUSE SYSTEM Calculated R Mayfield 19 degrees MUSE SYSTEM Calculated T Mayfield 22 degrees MUSE SYSTEM INTERPRETATION Normal sinus rhythm Normal ECG When compared with ECG of 20-MAR-2019 14:04, Fusion complexes are no longer Present AR interval has decreased Confirmed by MD Amanda, Oseas ([id number]) on 03/21/2019 11:48:04 AM MUSE SYSTEM 03/21/2019 7:01 AM EDT 03/21/2019 11:48 AM EDT Sean Manzano II, MD ECG ORDERABLES MUSE SYSTEM * (ABNORMAL) Differential, Automated (03/21/2019 3:16 AM EDT) Neutrophil % 69.9 % [facility] Neutrophil Absolute 6.15(H) 1.70 - 6.10 x10(3)/mc L [facility] Lymph % 16.4 % [facility] Lymphocytes Abs 1.4 0.9 - 3.2 x10(3)/mc L [facility] Monocyte % 9.3 % [facility] Monocyte Abs 0.8 0.3 - 0.9 x10(3)/[facility] Eos % 3.6 % [facility] Eosinophils Abs 0.3 0.0 - 0.4 x10(3)/[facility] Basophil % 0.5 % [facility] Baso Absolute 0.0 0.0 - 0.1 x10(3)/[facility] Immature Gran % 0.30 % [facility] Comment: Immature granulocytes(IG's)percentage and absolute count will include metamyelocytes, myelocytes, and promyelocytes. Blood smears from CBCs yielding IG's will be scanned manually for concordance. If this scan disagrees with the automated IG or if promyelocytes are noted, a manual differential will be performed. Immature Gran Absolute 0.03 0.00 - 0.04 x10(3)/[facility] Blood specimen (specimen) 03/21/2019 3:16 AM EDT 03/21/2019 3:23 AM EDT Narrative Resulting Agency Comment Spec In Lab Isael Bedoya MD HEMATOLOGY ORDERABLE S [facility] [place] [address] * Hemogram (03/21/2019 3:16 AM EDT) White Blood Cell 8.8 4.0 - 9.5 x10(3)/[facility] Red Blood Cell 5.34 4.58 - 5.54 x10(6)/[facility] Hemoglobin 15.9 13.7 - 16.5 gm/dL [facility] Hematocrit 46.8 40.5 - 48.5 % [facility] Mean Cell Volume 87.6 82.9 - 93.1 fL [facility] Mean Cell Hemoglobin 29.8 27.5 - 32.1 pg [facility] Mean Cell Hemoglobin Concentration 34.0 32.0 - 35.7 gm/dL [facility] Platelet 189 145 - 357 x10(3)/[facility] RDW Standard Deviation 43.5 36.0 - 45.0 fL [facility] RDW coefficient of variation 13.5 11.4 - 13.8 % [facility] Mean Platelet Volume 9.9 7.6 - 12.9 [facility] NRBC% auto 0.0 % [facility] NRBC Absolute 0.000 0.000 - 0.000 x10(3)/[facility] Blood specimen (specimen) 03/21/2019 3:16 AM EDT 03/21/2019 3:23 AM EDT Narrative Resulting Agency Comment Spec In Lab Isael Bedoya MD HEMATOLOGY ORDERABLE S [facility] [place] [address] * Lipid Panel (03/21/2019 3:16 AM EDT) Cholesterol, Total 128 mg/dL [facility] Comment: Lower Risk: <200 mg/dL Average Risk: 200-239 mg/dL Higher Risk: >xz=380 mg/dL Triglyceride 100 mg/dL [facility] Comment: Average Risk/Lower Risk: <150 mg/dL Borderline High Risk: 150-199 mg/dL High Risk: 200-499 mg/dL Very High Risk: >go=378 mg/dL HDL Cholesterol 51 mg/dL [facility] Comment: Males: ?? Higher Risk: <40 mg/dL Females: ?? HIgher Risk: <50 mg/dL LDL Cholesterol 57 mg/dL [facility] Comment: Lowest Risk: <100 mg/dL Lower Risk: 100-129 mg/dL Borderline High Risk: 130-159 mg/dL High Risk: 160-189 mg/dL Very High Risk: >bc=928 mg/dL Cholesterol/HDL Ratio 2.5 ratio [facility] Lipid Interpretation See Note [facility] Comment: Lipid management should be guided by a patient? s ASCVD risk, goals and preferences. ACC/AHA Guidelines recommend high intensity statin if clinical ASCVD or LDL greater than or equal to 190 mg/dL. http://iPerceptions.com/SJA-GFV-Fhovovnhr Adults aged 40-75 with LDL 70-189 mg/dL should have their 10 year ASCVD risk estimated with the ACC/AHA ASCVD risk utilities estimator and drafter http://tools.acc.org/JJVZS-Ukdz-Szwlacrhf/ Statin should be discussed if risk greater [...] Sean Manzano II, MD CHEMISTRY ORDER DARIAN [facility] [place] [address] * BMP w/fasting Glucose (03/21/2019 3:16 AM EDT) Glucose Fasting 81 65 - 99 mg/dL [facility] Comment: ?Fasting* Glucose Interpretive Criteria [...] of Diabetes Mellitus, Position Statement from the [place] [employer]. ??Diabetes Care, Volume 33, Supplement 1, Sep 2009 Blood Urea Nitrogen 14 10 - 20 mg/dL [facility] Creatinine 0.97 0.80 - 1.50 mg/dL [facility] Sodium 139 135 - 145 mmol/L [facility] Potassium 4.0 3.5 - 5.0 mmol/L [facility] Comment: Please note: ??Patients with WBC >100,000 may have falsely elevated Potassium levels. ??For accurate Potassium quantification in these patients send serum separator tube (gold top) for subsequent determinations. ??Contact the Clinical Chemistry Laboratory if there are any questions. Chloride 104 98 - 107 mmol/L [facility] Carbon Dioxide 24 22 - 31 mmol/L [facility] Anion Gap 11 5 - 15 mmol/L [facility] Calcium 8.8 8.5 - 10.5 mg/dL [facility] Est Glomerular Filtration Rate 79 >=60 mL/min/1. 73 m?? [facility] Comment: The eGFR was calculated using the CKD-EPI equation. As with all creatinine based estimates of kidney function, eGFR values calculated with the CKD-EPI equation are not accurate in patients with acute kidney failure, extremes of body mass or the acutely ill. http://[employer]/[facility]kf eGFR 91 >=60 mL/min/1. 73 m?? [facility] Comment: The eGFR was calculated using the CKD-EPI equation. As with all creatinine based estimates of kidney function, eGFR values calculated with the CKD-EPI equation are not accurate in patients with acute kidney failure, extremes of body mass or the acutely ill. http://[employer]/DHnkf Blood specimen (specimen) 03/21/2019 3:16 AM EDT 03/21/2019 3:23 AM EDT Narrative Resulting Agency Comment Spec In Lab Sean Manzano II, MD CHEMISTRY ORDER DARIAN [facility] [place] [address] * EKG 12 Lead (03/20/2019 2:04 PM EDT) Ventricular rate 59 BPM MUSE SYSTEM Atrial Rate 59 BPM MUSE SYSTEM P-R Interval 236 ms MUSE SYSTEM QRS Duration 110 ms MUSE SYSTEM Q-T Interval 418 ms MUSE SYSTEM QTC Calculated (Bezet) 413 ms MUSE SYSTEM Calculated P Mayfield 48 degrees MUSE SYSTEM Calculated R Mayfield 2 degrees MUSE SYSTEM Calculated T Mayfield 27 degrees MUSE SYSTEM INTERPRETATION Sinus bradycardia with 1st degree A-V block with Fusion complexes Otherwise normal ECG When compared with ECG of 20-MAR-2019 10:26, Fusion complexes are now Present AR interval has increased Confirmed by MD Posey Megan ([id number]) on 03/20/2019 6:27:11 PM MUSE SYSTEM 03/20/2019 2:04 PM EDT 03/20/2019 6:27 PM EDT Sean Manzano II, MD ECG ORDERABLES Performing Organization Address City/[facility] Co de Phone Number MUSE SYSTEM * EKG 12 Lead (03/20/2019 10:26 AM EDT) Ventricular rate 64 BPM MUSE SYSTEM Atrial Rate 64 BPM MUSE SYSTEM P-R Interval 206 ms MUSE SYSTEM QRS Duration 116 ms MUSE SYSTEM Q-T Interval 402 ms MUSE SYSTEM QTC Calculated (Bezet) 414 ms MUSE SYSTEM Calculated P Mayfield 19 degrees MUSE SYSTEM Calculated R Mayfield 8 degrees MUSE SYSTEM Calculated T Mayfield 28 degrees MUSE SYSTEM INTERPRETATION Normal sinus rhythm Normal ECG When compared with ECG of 16-FEB-2019 10:55, No significant change was found Confirmed by MD Posey Megan ([id number]) on 03/20/2019 6:27:09 PM MUSE SYSTEM 03/20/2019 10:2 6 AM EDT 03/20/2019 6:27 PM EDT Syed Garcia MD ECG ORDERABLES Performing Organization Address City/[facility] Co de Phone Number MUSE SYSTEM * Differential, Automated (03/20/2019 9:47 AM EDT) Neutrophil % 55.1 % [facility] Neutrophil Absolute 3.84 1.70 - 6.10 x10(3)/[facility] Lymph % 31.3 % [facility] Lymphocytes Abs 2.2 0.9 - 3.2 x10(3)/[facility] Monocyte % 8.7 % [facility] Monocyte Abs 0.6 0.3 - 0.9 x10(3)/[facility] Eos % 4.4 % [facility] Eosinophils Abs 0.3 0.0 - 0.4 x10(3)/[facility] Basophil % 0.4 % [facility] Baso Absolute 0.0 0.0 - 0.1 x10(3)/[facility] Immature Gran % 0.10 % [facility] Comment: Immature granulocytes(IG's)percentage and absolute count will include metamyelocytes, myelocytes, and promyelocytes. Blood smears from CBCs yielding IG's will be scanned manually for concordance. If this scan disagrees with the automated IG or if promyelocytes are noted, a manual differential will be performed. Immature Gran Absolute 0.01 0.00 - 0.04 x10(3)/[facility] Blood specimen (specimen) 03/20/2019 9:47 AM EDT 03/20/2019 10:01 AM EDT Narrative Resulting Agency Comment Spec In Lab Holland GO HEMATOLOGY ORDERABLE S [facility] [place] [address] * (ABNORMAL) Hemogram (03/20/2019 9:47 AM EDT) White Blood Cell 7.0 4.0 - 9.5 x10(3)/[facility] Red Blood Cell 5.66(H) 4.58 - 5.54 x10(6)/[facility] Hemoglobin 16.7(H) 13.7 - 16.5 gm/dL [facility] Hematocrit 52.1(H) 40.5 - 48.5 % [facility] Mean Cell Volume 92.0 82.9 - 93.1 [facility] Mean Cell Hemoglobin 29.5 27.5 - 32.1 pg [facility] Mean Cell Hemoglobin Concentration 32.1 32.0 - 35.7 gm/dL [facility] Platelet 225 145 - 357 x10(3)/mc L [facility] RDW Standard Deviation 46.8(H) 36.0 - 45.0 [facility] RDW coefficient of variation 13.8 11.4 - 13.8 % [facility] Mean Platelet Volume 9.8 7.6 - 12.9 [facility] NRBC% auto 0.0 % [facility] NRBC Absolute 0.000 0.000 - 0.000 x10(3)/ L [facility] Blood specimen (specimen) 03/20/2019 9:47 AM EDT 03/20/2019 10:01 AM EDT Narrative Resulting Agency Comment Spec In Lab [place] [facility] HEMATOLOGY ORDERABLE S [facility] [place] [address] * (ABNORMAL) BMP w/fasting Glucose (03/20/2019 9:47 AM EDT) Glucose Fasting 104(H) 65 - 99 mg/dL [facility] Comment: ?Fasting* Glucose Interpretive Criteria [...] of Diabetes Mellitus, Position Statement from the [place] [employer]. ??Diabetes Care, Volume 33, Supplement 1, Sep 2009 Blood Urea Nitrogen 19 10 - 20 mg/dL [facility] Creatinine 1.10 0.80 - 1.50 mg/dL [facility] Sodium 141 135 - 145 mmol/L [facility] Potassium 4.4 3.5 - 5.0 mmol/L [facility] Comment: Please note: ??Patients with WBC >100,000 may have falsely elevated Potassium levels. ??For accurate Potassium quantification in these patients send serum separator tube (gold top) for subsequent determinations. ??Contact the Clinical Chemistry Laboratory if there are any questions. Chloride 104 98 - 107 mmol/L [facility] Carbon Dioxide 27 22 - 31 mmol/L [facility] Anion Gap 10 5 - 15 mmol/L [facility] Calcium 9.5 8.5 - 10.5 mg/dL [facility] Est Glomerular Filtration Rate 68 >=60 mL/min/1. 73 m?? [facility] Comment: The eGFR was calculated using the CKD-EPI equation. As with all creatinine based estimates of kidney function, eGFR values calculated with the CKD-EPI equation are not accurate in patients with acute kidney failure, extremes of body mass or the acutely ill. http://[employer]/[facility]kf eGFR 78 >=60 mL/min/1. 73 m?? [facility] Comment: The eGFR was calculated using the CKD-EPI equation. As with all creatinine based estimates of kidney function, eGFR values calculated with the CKD-EPI equation are not accurate in patients with acute kidney failure, extremes of body mass or the acutely ill. http://[employer]/[facility]kf Blood specimen (specimen) 03/20/2019 9:47 AM EDT 03/20/2019 10:01 AM EDT Narrative Resulting Agency Comment Spec In Lab Syed Garcia MD CHEMISTRY ORDERABLES [facility] [place] [address] documented in this encounter Visit Diagnoses Diagnosis Abnormal stress test Other nonspecific abnormal cardiovascular system function study Chest discomfort Other chest pain CAD (coronary artery disease) Coronary atherosclerosis of unspecified type of vessel, craig or graft documented in this encounter Admitting Diagnoses Diagnosis CAD (coronary artery disease) Coronary atherosclerosis of unspecified type of vessel, craig or graft documented in this encounter Administered [...] Discontinued, Routine 1727 (Given - Provider: Miranda Quintanilla, ASHLEY) 0813 (Given - Provider: Miranda Quintanilla, ASHLEY) atorvastatin (LIPITOR) tablet 40 mg 40 mg, Oral, EVERY EVENING, First dose on Sat03/20/19 at 1700, Until Discontinued 1727 (Given - Provider: Miranda Quintanilla, ASHLEY) budesonide-formoterol (SYMBICORT) 80-4.5 mcg/actuation inhaler 2 Inhalation 2 .Inhalation , Inhalation, 2 TIMES DAILY, First dose [...] 1728 (Given - Provider: Miranda Quintanilla RN) 08 (Given - Provider: Miranda Quintanilla RN) carvedilol (COREG) tablet 12.5 mg 12.5 mg, Oral, 2 TIMES DAILY WITH MEALS, First dose on Sat03/20/19 at 1700, Until Discontinued, Routine 172 (Given - Provider: Miranda Quintanilla RN) 0813 (Given - Provider: Miranda Quintanilla RN) clopidogrel (PLAVIX) tablet 75 mg 75 mg, Oral, DAILY, First dose on 03/21/19 at 0900, Until Discontinued, Recovery (Recovery-Hospital Unit), Routine 812 (Given - Provid er: Miranda Quintanilla RN) fluticasone propionate (FLONASE) 50 mcg/actuation nasal spray 1 spray 1 spray, Each Nare, 2 TIMES DAILY, First dose on Sat03/20/19 at 2100, Until Discontinued, Routine 2099 (Not Given - Provider: Breann Flynn RN [...] on 03/21/19 at 0900, Until Discontinued, Routine 812 (Given - Provid er: Miranda Quintanilla RN) [...] Routine 0814 (Given - Provid er: Miranda Quintanilla RN) Continuous Medication Order 03/19/2019 03/20/2019 03/21/2019 sodium chloride 0.9% infusion 150 mL/hr, Intravenous, CONTINUOUS, Starting on Sat03/20/19 at 1345, Until Sat03/20/19 at 1644, Recovery (Recovery-Hospital Unit) 1345 (New Bag - Provider: Miranda Quintanilla RN) PRN Medication Order 03/19/2019 03/20/2019 03/21/2019 [...] II) documented in this encounter Care Teams Restuarant Crew Worker Relationship Specialty Start Date End Date Arelis Michele MD [address] [place] [address] PCP - General Family Medicine 08/01/18 02/11/24 documented as of this encounter
--- OUTSIDE RECORDS SUMMARY | 2024-04-24 21:07 | XMS_ITS | Encounter Summary ---
Author Organization [facility] [place] [address] Care Team Providers Care R Developer Name Role Phone Arelis Michele MD Primary Care Provider [phone] Encounter Details Date Type Department Care Team (Late st Contact Info) Description 01/08/2019 10:15 AM EDT Office [place] [address] Kandy Espana, RN [facility] [place] [address] Rheumatoid arthritis with positive rheumatoid factor, involving [...] this encounter Progress Notes * Kandy Espana, ELECTRONIC EQUIPMENT TRADES WORKER - 01/08/2019 10:15 AM EDT Established Patient Follow Up - Rheumatology Clinic Wesly Ybarra is a 68 y.o.male seen for ongoing evaluation and management of rheumatoid arthritis. He is accompanied by a dolly driver. Last RHEU OV: 10/2018. INTERVAL HISTORY: Rheumatology remain on HOLD due to unspecified Cardiology procedure (thinks its aCardiac cath). But understands needs colonoscopy ( 02/16/2019) and endoscopy (unscheduled to date). Previously reported last Rituxan infusion in January 2018. [facility] (single infusion protocol/q 4 mo). Noted at [...] what diagnosis is. Treated by Dr. Sommers ([facility] Cardiology). History of depression - [...] PM EDT Hospital En[place] [address] 05/14/2024 1:00 PM EDT Office Visit Dermatology at [address] [address] 08/18/2024 10:00 AM EST [place] [address] Alice Carney APRN [facility] [place] [address] 08/18/2024 12:00 PM EST [place]ment [place] [address] 12/08/2024 12:00 PM EDT [place] [address] documented as of this encounter Visit Diagnoses [...] section) documented in this encounter Care Teams R Developer Relationship Specialty Start Date End Date Arelis Michele MD [address] [place] [address] PCP - General Family Medicine 08/01/18 02/11/24 documented as of this encounter
--- OUTSIDE RECORDS SUMMARY | 2024-04-24 21:07 | XMS_ITS | Encounter Summary ---
Author Organization [facility] [place] [address] Care Team Providers Care Sausage Wrapper Name Role Phone Arelis Michele MD Primary Care Provider [phone] Encounter Details Date Type Department Care Team (Late st Contact Info) Description 03/12/2019 Orders Only Cardiology at [address] [phone] Holland Cerrato PA [facility] [place] [address] Abnormal stress test; Chest discomfort Social History [...] PM EDT Hospital Encounter [place] [address] 05/14/2024 1:00 PM EDT Office Visit Dermatology at [facility] [address] [place] [address] 08/18/2024 10:00 AM EST Office Visit [place] [address] Alice Carney, [facility] [place] [address] 08/18/2024 12:00 PM EST Appointment Med Infusion at [facility] [place] [address] 12/08/2024 12:00 PM EDT Appointment Med Infusion at [facility] [place] [address] documented as of this encounter Procedures Procedure Name Priority Date/Time Associated Diagnosis Comments CARDIAC CATHETERIZATION Routine 03/20/20 1:02 PM EDT Abnormal stress test Chest discomfort documented in this encounter Results * CARDIAC CATHETERIZATION (03/20/2019 1:02 PM EDT) Anatomical Region Laterality Modality Other Narrative 03/20/2019 1:09 PM EDT ?[facility] ? Cardiac Catheterization/Intervention Report ? Patient Name: LEEANNE AGEE ? Procedure Date: 03/20/2019 ? A #: [id number] ? Primary Physician: Sean Manzano W ? Case #: [id number] ? File Name: [id number] ? Catheterization Order Number: [id number] ? [facility] ? Final Report [place], [place] ? Patient Name: ? LEEANNE Rutherford. RAMSDELL ?ID#: ?[id number] ? : ?1950 ? Procedure Date: ? March 20, 2019 ?Case #: ? [id number] ? Room: ? 1 ? Case Physician: ? Saen Manzano M.D. ?Start: ?11:12 ?Fellow: ? Isael [...] was designated as ?ASA Class IV. The [facility] clinical frailty scale is 4: Vulnerable. [...] procedure was Elective. 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 See the case log [...] Note Sean Manzano II, MD - 08/22/2019 [facility] Cardiac Catheterization/Intervention Report Patient Name: LEEANNE AGEEMelissa Procedure Date: 03/20/2019 A #: [id number] Primary Physician: Sean Manzano Case #: File Name: [id number] Catheterization Order Number: [id number] [facility] FinalReport [place], [place] Patient Name: LEEANNE AGEE ID#:[id number] :1950 Procedure Date: March 20, 2019 Case #: [id number] Room: 1 Case Physician: Sean Manzano M.D. [...] patient wasdesignated as ASA Class IV. The [facility] clinical frailty scale is 4: Vulnerable. [...] diagnostic procedure was Elective. Theindication for the landscape and yardwork laborer visit is new onset angina less than [...] 17.7 minutes, dose area product was 133,991 [id number] air kerma was 1,867 mGY. See the [...] The lesion was predilated with a 2.50mm ISYMCPF18 MM balloon with a maximum inflation pressure [...] pain documented in this encounter Care Teams Sausage Wrapper Relationship Specialty Start Date End Date Arelis Michele MD [address] [place] [address] PCP - General Family Medicine 08/01/18 02/11/24 documented as of this encounter
--- OUTSIDE RECORDS SUMMARY | 2024-04-24 21:07 | XMS_ITS | Encounter Summary ---
Author Organization [place] [address] Care Team Providers Care Soaking Tank Worker Name Role Phone Arelis Michele MD Primary Care Provider [phone] Encounter Details Date Type Department Care Team (Late st Contact Info) Description 05/11/2019 [place] [phone] Renetta Hartley Social History Tobacco Use Types [...] in May / Jun? 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 documented in this encounter Plan of Treatment Upcoming Encounters Date Type Department Care Team (Late st Contact Info) Description 04/28/2024 12:00 PM EDT Hospital [place] [phone] 05/14/2024 1:00 PM EDT Office Visit Dermatology at [facility] [address] [place] [address] 08/18/2024 10:00 AM EST Office [place] [address] Alice Carney APRN [facility] [place] [address] 08/18/2024 12:00 PM EST [place] [address] 12/08/2024 12:00 PM EDT [place]oint[place] [address] documented as of this encounter Visit Diagnoses Not on filedocumented in this encounter Care Teams Soaking Tank Worker Relationship Specialty Start Date End Date Arelis Michele MD [address] [place] [address] PCP - General Family Medicine 08/01/18 02/11/24 documented as of this encounter
--- OUTSIDE RECORDS SUMMARY | 2024-04-24 21:07 | XMS_ITS | Encounter Summary ---
[place] [address] Care Team Providers Care Mat Puncher Name Role Phone Arelis Michele MD Primary Care Provider [phone] Reason for Visit * Reason Onset Date Comments Triage 05/07/2019 Encounter Details Date Type Department Care Team (Late st Contact Info) Description 05/07/2019 [place]phone [place] [phone] Lionel Rabago, crane manager Social History Tobacco Use Types Packs/Day Years [...] Sent: 05/08/2019 ?? 8:18 PM EDT To: [facility] Rheumatology Nurse, * Will need follow up [...] had heart stent placement March 20 at [facility]. Infusions have been on hold. Has not taken any ra meds. Patient states u.s. representative asks if unable to have infusion, would [...] PM EDT Hospital En[place] [address] 05/14/2024 1:00 PM EDT Office Visit Dermatology at [address] [address] 08/18/2024 10:00 AM EST Office [place] [address] Alice Carney, CHARGE AUDITOR [facility] [place] [address] 08/18/2024 12:00 PM EST Appointment [place] [address] 12/08/2024 12:00 PM EDT Appoint[place] [address] documented as of this encounter Visit Diagnoses Not on filedocumented in this encounter Care Teams Mat Puncher Relationship Specialty Start Date End Date Arelis Michele MD [address] [place] [address] PCP - General Family Medicine 08/01/18 02/11/24 documented as of this encounter
--- OUTSIDE RECORDS SUMMARY | 2024-04-24 21:07 | XMS_ITS | Encounter Summary ---
Author Organization [facility] [place] [address] Care Team Providers Care Sales And Marketing Associate Name Role Phone Arelis Michele MD Primary Care Provider [phone] Encounter Details Date Type Department Care Team (Late Contact Info) Description 07/07/2019 Telephone [place] [address] Dianne Norton, FIBRE TECHNOLOGIST [facility] [place] [address] Social History Tobacco Use Types Packs/Day Years [...] PM EDT Hospital En[place] [address] 05/14/2024 1:00 PM EDT Office Visit Dermatology at [facility] [address] [place] [address] 08/18/2024 10:00 AM EST Office [place] [address] Alice Carney APRN [facility] [place] [address] 08/18/2024 12:00 PM EST Appointment [place] [address] 12/08/2024 12:00 PM EDT [place]ointment [place] [address] documented as of this encounter Visit Diagnoses Not on filedocumented in this encounter Care Teams Sales And Marketing Associate Relationship Specialty Start Date End Date Arelis Michele MD [address] [place] [address] PCP - General Family Medicine 08/01/18 02/11/24 documented as of this encounter
--- OUTSIDE RECORDS SUMMARY | 2024-04-24 21:07 | XMS_ITS | Encounter Summary ---
[place] [address] Care Team Providers Care Rod Buster Helper Name Role Phone Arelis Michele MD Primary Care Provider Encounter Details Date Type Department Care Team (Late st Contact Info) Description 12/23/2018 Telephone [place] [address] Yumi Maxwell Social History Tobacco Use Types [...] EDT Hospital Encounter [place] [address] 05/14/2024 1:00 PM EDT Office Visit Dermatology at [place] [address] [place] [address] 08/18/2024 10:00 AM EST Office [place] [address] Alice Carney APRN [facility] [place] [address] 08/18/2024 12:00 PM EST Appointment [place] [address] 12/08/2024 12:00 PM EDT Appointment [place] [address] documented as of this encounter Visit Diagnoses Not on filedocumented in this encounter Care Teams Rod Buster Helper Relationship Specialty Start Date End Date Arelis Michele MD [address] [place] [address] PCP - General Family Medicine 08/01/18 02/11/24 documented as of this encounter
--- OUTSIDE RECORDS SUMMARY | 2024-04-24 21:07 | XMS_ITS | Encounter Summary ---
Author Organization [facility] [place] [place] [address] Care Team Providers Care Sheet Pile Hammer Operator Name Role Phone Arelis Michele MD Primary Care Provider [phone] Encounter Details Date Type Department Care Team (Late st Contact Info) Description 04/20/2019 Telephone [place] [address] Renetta [place] Social History Tobacco Use Types [...] PM EDT Hospital En[place] [address] 05/14/2024 1:00 PM EDT Office Visit Dermatology at [facility] [address] [place] [address] 08/18/2024 10:00 AM EST Office [place] [address] Alice Carney, DRAMA CRITIC [facility] [place] [address] 08/18/2024 12:00 PM EST Appointment [place] [address] 12/08/2024 12:00 PM EDT Appointment [place] [address] documented as of this encounter Visit Diagnoses Not on filedocumented in this encounter Care Teams Sheet Pile Hammer Operator Relationship Specialty Start Date End Date Arelis Michele MD [address] [place] [address] PCP - General Family Medicine 08/01/18 02/11/24 documented as of this encounter
--- OUTSIDE RECORDS SUMMARY | 2024-04-24 21:07 | XMS_ITS | Encounter Summary ---
Author Organization [facility] [place] [address] Care Team Providers Care Safety Fire Boss Name Role Phone Arelis Michele MD Primary Care Provider [phone] Encounter Details Date Type Department Care Team (Late st Contact Info) Description 09/24/2018 Tele[place] [address] Monty Green, RN Social History Tobacco Use [...] PM EDT Hospital En[place] [address] 05/14/2024 1:00 PM EDT Office Visit Dermatology at [facility] [address] [place] [address] 08/18/2024 10:00 AM EST Office [place] [address] Alice Carney, SUBMARINE OPERATOR [facility] [place] [address] 08/18/2024 12:00 PM EST [place]oint[place] [address] 12/08/2024 12:00 PM EDT [place]oint[place] [address] documented as of this encounter Visit Diagnoses Not on filedocumented in this encounter Care Teams Safety Fire Boss Relationship Specialty Start Date End Date Arelis Michele MD [address] [place] [address] PCP - General Family Medicine 08/01/18 02/11/24 documented as of this encounter
--- OUTSIDE RECORDS SUMMARY | 2024-04-24 21:07 | XMS_ITS | Encounter Summary ---
Author Organization [facility] [place] [address] Care Team Providers Care Roustabout Pusher Name Role Phone Arelis Michele MD Primary Care Provider [phone] Encounter Details Date Type Department Care Team (Late st Contact Info) Description 03/18/2019 Telephone [place] [address] Yakelin Pope Social History Tobacco Use Types [...] PM EDT Hospital Encounter [place] [address] 05/14/2024 1:00 PM EDT [facility] [address] [place] [address] 08/18/2024 10:00 AM EST Office [place] [address] Alice Carney, DIRECTOR VIDEO [facility] [place] [address] 08/18/2024 12:00 PM EST Appointment [place] [address] 12/08/2024 12:00 PM EDT Appointment [place] [address] documented as of this encounter Visit Diagnoses Not on filedocumented in this encounter Care Teams Roustabout Pusher Relationship Specialty Start Date End Date Arelis Michele MD [address] [place] [address] PCP - General Family Medicine 08/01/18 02/11/24 documented as of this encounter
--- OUTSIDE RECORDS SUMMARY | 2024-04-24 21:07 | XMS_ITS | Encounter Summary ---
Author Organization [facility] [place] [place] [address] Care Team Providers Care Media Arts Professor Name Role Phone Arelis Michele MD Primary Care Provider [phone] Reason for Referral * Consultation (Urgent) - Closed Specialty Diagnoses / Procedures Referred By Contac t Referred To Contact Orthopaedics Diagnoses Right leg swelling Injury of right lower extremity, subsequent encounter Right knee pain Dianne Norton APRN [facility] [place] [address] [facility] Orthopa[facility]ics [address] [place] [address] Referral ID Status Reason Start Date Expiration Date V isits Requested Visits Authorized [id number] Closed Consult, Test & Treat 07/22/2019 07/21/2020 1 1 * Diagnostic Test (Routine) - Closed Specialty Diagnoses / Procedures Referred By Contac t Referred To Contact Radiology Diagnoses Right leg swelling Injury of right lower extremity, subsequent encounter Procedures MRI Knee wo Contrast Right (Generic) Dianne Norton APRN [facility] [place] [address] [place] [address] Referral ID Status Reason Start Date Expiration Date V isits Requested Visits Authorized [id number] Closed Specialty Service Requested 07/22/2019 07/21/2020 1 1 Encounter Details Date Type Department Care Team (Late st Contact Info) Description 07/22/2019 Orders [place] [address] Dianne Norton APRN [facility] [place] [address] Right leg swelling; Injury of right lower [...] PM EDT Hospital Encounter [place] [address] 05/14/2024 1:00 PM EDT Office Visit Dermatology at [address] [address] 08/18/2024 10:00 AM EST Office [place] [address] Alice Carney HAMMER DRIVER [facility] [place] [address] 08/18/2024 12:00 PM EST Appointment [place] [address] 12/08/2024 12:00 PM EDT [place]ointment [place] [address] Scheduled Referrals Name Type Priority Associated Diagnoses [...] below. ? Electronically signed by: Kelly Cruz [facility] ([phone]), at 08/10/2019 5:05 PM Narrative 08/10/2019 5:05 [...] cartilage in the patellofemoral compartment since the tzanp-pd-ayhp was optimized to evaluate a hematoma in [...] cartilage in the patellofemoral compartment since the htxoe-ri-pdqf was optimized to evaluate a hematoma in [...] resident's interpretationand agree with the findings, Kelly Crzu at 08/10/2019 5:05 PM Thank you for letting us participate in the care of this patient. Forquestions regarding this report, please contact the number below. Electronically signed by: Kelly Cruz [facility]([phone]), at 08/10/2019 5:05 PM Dianne Norton APRN IMG MRI ORDERABLES documented in this encounter Visit Diagnoses Diagnosis Right leg swelling Injury of right lower extremity, subsequent encounter Right leg swelling Injury of right lower extremity, subsequent encounter documented in this encounter Care Teams Media Arts Professor Relationship Specialty Start Date End Date Arelis Michele MD [address] [place] [address] PCP - General Family Medicine 08/01/18 02/11/24 documented as of this encounter
--- OUTSIDE RECORDS SUMMARY | 2024-04-24 21:07 | XMS_ITS | Encounter Summary ---
[place] [address] Care Team Providers Care Instructional Materials Director Name Role Phone Arelis Michele MD Primary Care Provider Encounter Details Date Type Department Care Team (Late st Contact Info) Description 10/08/2018 Telephone [place] [address] Ramona Mcmahon Social History Tobacco Use Types [...] - 10/08/2018 10:47 AM EST Wesly Ybarra [id number] Diagnosis: screening 1. Have you ever had a colonoscopy before? [x] YES [] NO If Yes, Date of Last [place]: If yes, did you have any problems with the procedure? [] YES [] NO Explain: 2004 in [facility] What type of sedation was used: 2. Do you take any Blood Thinners? [] YES [x] NO If Yes, type: 3. Do you have a Pacemaker or Defibrillator device? [] YES [x] NO If Yes send inFirePower Technology message to [facility] ENDO DEVICE CHECK 4. Are you a diabetic? [] YES [x] NO If yes, controlled by meds or diet? 5. Do you have any Allergies to Eggs, Latex or Medications? [x] YES [] NO If Yes, what:___see [facility] 6. Do you take any Oral Iron [...] NO 11. You must have a responsible constitution party stay at the facility during your procedure [...] PM EDT Hospital Encounter [place] [address] 05/14/2024 1:00 PM EDT Office Visit Dermatology at [place] [address] [place] [address] 08/18/2024 10:00 AM EST Office [place] [address] Alice Carney APRN [facility] [address] 08/18/2024 12:00 PM EST Appointment [place] [address] 12/08/2024 12:00 PM EDT Appointment [place] [address] documented as of this encounter Visit Diagnoses Not on filedocumented in this encounter Care Teams Instructional Materials Director Relationship Specialty Start Date End Date Arelis Michele MD [address] [place] [address] PCP - General Family Medicine 08/01/18 02/11/24 documented as of this encounter
--- OUTSIDE RECORDS SUMMARY | 2024-04-24 21:07 | XMS_ITS | Encounter Summary ---
Author Organization [facility] [place] [address] Care Team Providers Care Stock Raiser Name Role Phone Arelis Michele MD Primary Care Provider [phone] Encounter Details Date Type Department Care Team (Late st Contact Info) Description 10/20/2018 12:15 PM EST Office [place] [address] Kandy Espana, RN [facility] [place] [address] Rheumatoid arthritis with positive rheumatoid factor, involving [...] this encounter Progress Notes * Kandy Espana, CODING CLERK - 10/20/2018 12:15 PM EST Established Patient Follow Up - Rheumatology Clinic Wesly Ybarra is a 68 y.o.male seen for ongoing evaluation and management of rheumatoid arthritis. He is accompanied by a driver wheelchair. Last RHEU OV: 04/2018. INTERVAL HISTORY: When last seen, reported had received Rituxan infusion in January 2018. [facility] (singleinfusion protocol/q 4 mo). Noted at [...] what diagnosis is. Treated by Dr. Sommers ([facility] Cardiology). Seen by PULM at last [...] PM EDT Hospital En[place] [address] 05/14/2024 1:00 PM EDT Office Visit Dermatology at [facility] [address] [place] [address] 08/18/2024 10:00 AM EST Office [place] [address] Alice Carney APRN [facility] [place] [address] 08/18/2024 12:00 PM EST Appointment [place] [address] 12/08/2024 12:00 PM EDT [place]oint[place] [address] documented as of this encounter Visit Diagnoses Diagnosis Rheumatoid arthritis with positive rheumatoid factor, involving unspecified site Medication monitoring encounter Encounter for therapeutic drug monitoring High risk medication use Encounter for long-term (current) use of other medications documented in this encounter Care Teams Stock Raiser Relationship Specialty Start Date End Date Arelis Michele MD [address] [place] [address] PCP - General Family Medicine 08/01/18 02/11/24 documented as of this encounter
--- OUTSIDE RECORDS SUMMARY | 2024-04-24 21:07 | XMS_ITS | Encounter Summary ---
Author Organization [facility] [place] [address] Care Team Providers Care Sports Nutritionist Name Role Phone Arelis Michele MD Primary Care Provider [phone] Reason for Visit * Reason Onset Date Comments Prior Authorization 09/08/2018 Encounter Details Date Type Department Care Team (Late st Contact Info) Description 09/08/2018 Tele[place] [address] Lyn Wyman LPN Prior Authorization Social History [...] PM EDT Hospital En[place] [address] 05/14/2024 1:00 PM EDT Office Visit Dermatology at [address] [place] [address] 08/18/2024 10:00 AM EST Office [place] [address] Alice Carney APRN [facility] [place] [address] 08/18/2024 12:00 PM EST [place]ointment [place] [address] 12/08/2024 12:00 PM EDT [place]oint[place] [address] documented as of this encounter Visit Diagnoses Not on filedocumented in this encounter Care Teams Sports Nutritionist Relationship Specialty Start Date End Date Arelis Michele MD [address] [place] [address] PCP - General Family Medicine 08/01/18 02/11/24 documented as of this encounter
--- OUTSIDE RECORDS SUMMARY | 2024-04-24 21:07 | XMS_ITS | Encounter Summary ---
Author Organization [place] [address] Care Team Providers Care Nut Tapper Name Role Phone Arelis Michele MD Primary Care Provider [phone] Reason for Referral * Diagnostic Test (Routine) - Closed Specialty Diagnoses / Procedures Referred By Contac t Referred To Contact Radiology Diagnoses Right leg swelling Injury of right lower extremity, subsequent encounter Procedures MRI Knee wo Contrast Right (Generic) Dianne Norton APRN [facility] [place] [address] [place] [address] Referral ID Status Reason Start Date Expiration Date V isits Requested Visits Authorized [id number] Closed Specialty Service Requested 07/22/2019 07/21/2020 1 1 Reason for Visit * Diagnostic Test (Routine) - Closed Specialty Diagnoses / Procedures Referred By Contac t Referred To Contact Radiology Diagnoses Right leg swelling Injury of right lower extremity, subsequent encounter Procedures MRI Knee wo Contrast Right (Generic) Dianne Norton APRN [facility] [place] [address] [place] [address] Referral ID Status Reason Start Date Expiration Date V isits Requested Visits Authorized [id number] Closed Specialty Service Requested 07/22/2019 07/21/2020 1 1 Encounter Details Date Type Department Care Team (Latest Contact Info) Description 08/10/2019 12:00 PM EST - 08/10/2019 11:59 PM EST Hospital Encounter MRI at [facility] [place] [address] Dianne Norton, ITA [facility] [place] [place] [address] Right leg swelling; Injury of right lower [...] PM EDT Hospital En[place] [address] 05/14/2024 1:00 PM EDT Office Visit Dermatology at [facility] [address] [place] [address] 08/18/2024 10:00 AM EST Office [place] [phone] Alice Carney, ITA [facility] [place] [address] 08/18/2024 12:00 PM EST [place] [phone] 12/08/2024 12:00 PM EDT [place] [address] documented as of this encounter [...] below. ? Electronically signed by: Kelly Cruz [facility] ([phone]), at 08/10/2019 5:05 PM Narrative 08/10/2019 5:05 [...] cartilage in the patellofemoral compartment since the [id number]-[id number] was optimized to evaluate a hematoma in [...] cartilage in the patellofemoral compartment since the [id number]-[id number] was optimized to evaluate a hematoma in [...] number below. Electronically signed by: Kelly Cruz [facility]([phone]), at 08/10/2019 5:05 PM Dianne Norton APRN IMG MRI ORDERABLES documented in this encounter Visit Diagnoses Diagnosis Right leg swelling Injury of right lower extremity, subsequent encounter documented in this encounter Care Teams Nut Tapper Relationship Specialty Start Date End Date Arelis Michele MD [address] [place] [address] PCP - General Family Medicine 08/01/18 02/11/24 documented as of this encounter
--- OUTSIDE RECORDS SUMMARY | 2024-04-24 21:07 | XMS_ITS | Encounter Summary ---
[place] [address] Care Team Providers Care Outreach Professional Name Role Phone Arelis Michele MD Primary Care Provider [phone] Encounter Details Date Type Department Care Team (Late Contact Info) Description 12/19/2018 Telephone [place] [address] Yumi Maxwell Social History Tobacco [...] PM EDT Hospital En[place] [address] 05/14/2024 1:00 PM EDT Office Visit Dermatology at [address] [place] [address] 08/18/2024 10:00 AM EST Office [place] [address] Alice Carney, R[employer] TWISTING MACHINE OPERATOR [facility] [place] [address] 08/18/2024 12:00 PM EST [place] [address] 12/08/2024 12:00 PM EDT [place] [address] documented as of this encounter Visit Diagnoses Not on filedocumented in this encounter Care Teams Outreach Professional Relationship Specialty Start Date End Date Arelis Michele MD [address] [place] [address] PCP - General Family Medicine 08/01/18 02/11/24 documented as of this encounter
--- OUTSIDE RECORDS SUMMARY | 2024-04-24 21:07 | XMS_ITS | Encounter Summary ---
Author Organization [facility] [place] [address] Care Team Providers Care Battery Plate Remover Name Role Phone Arelis Michele MD Primary Care Provider [phone] Reason for Visit * Auth/Cert Specialty Diagnoses / Procedures Referred By Contmabel t Referred To Contact Diagnoses CAD (coronary artery disease) Abnormal stress test [R94.39]/Chest discomfort [R07.89] Post-Op monitoring Procedures PRG CATH PLMT LEFT HEART CATH & ARTS W/INJ & ANGIO IMG S&I CARDIAC CATHETERIZATION CORONARY ANGIOGRAPHY; W LHC,POSSIBLE PCI Referral ID Status Reason Start Date Expiration Date Visits Re quested Visits Authorized [id number] 1 1 Encounter Details Date Type Department Care Team (Late st Contact Info) Description 03/20/2019 10:30 AM EDT - 03/20/2019 11:30 AM EDT [facility] [place] [address] Sean Manzano II, MD [facility] [place] [address] CARDIAC CATHETERIZATION Social History Tobacco Use Types [...] Leeanne Ybarra Patient Age: 68 y.o. Language: Indian Race: White Ethnicity: Not nor Admit date: [...] eye ??? Osteopenia ?? Osteopenia, DXA at [facility] in 06/2007. ?? 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 MEDICATIONS - you need to be on [...] Primary care provider: Cardiology: Arelis Michele MD [phone] Follow up as planned or as needed. Dr. Sommers Expect a call next week to schedule 4-6 week follow up appointment General Instructions None Discharge References/Attachments None DONAVAN Fonseca Interventional Cardiology 03/21/19 8:00 AM //Isael Bedoya MD Interventional Fpga Design Engineer documented in this encounter Discharge Instructions * Patient Instructions* Isael Bedoya S - 03/20/2019 1:43 PM EDT Discharge Instructions following cardiac catheterization Cardiology Instructions Call your doctor if you experience: Chest pain, dyspnea, pain or swelling in legs occurs. If you have non-emergent questions between now and the time of your follow up appointments: -During 8am-5pm Saturday through Saturday call [phone] to speak with a nurse in the cardiology clinic -All other times call [phone] and ask to speak to the dough molder hand disposition clerk. MEDICATIONS - you need to be on [...] Primary care provider: Cardiology: Arelis Michele MD [phone] Follow up as planned or as needed. [...] when to call , pt instructed to chart picker prescriptions at preferred pharmacy, all questions answered. [...] c/d/i. Groin site soft to palpation. monitoring tech applied. 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 Osteopenia ?? Osteopenia, DXA at [facility] in 06/2007. ?? Right wrist fracture (1962); [...] file Gets together: Not on file Attends worship service: Not on file Active member of [...] Manzano II - 03/20/2019 1:06 PM EDT [facility] Operative Note LEEANNE YBARRA March 20, 2019 [id number] - Preliminary Findings Procedures: coronary angiography left [...] PM EDT Hospital [place] [address] 05/14/2024 1:00 PM EDT Office Visit Dermatology at [facility] [address] [place] [address] 08/18/2024 10:00 AM EST Office [place] [phone] Alice Carney APRN [facility] [address] 08/18/2024 12:00 PM EST [place] [phone] 12/08/2024 12:00 PM EDT [place] [address] documented as of this encounter Procedures Procedure Name Priority Date/Time Associated Diagnosis Comments DIRECTOR OF SUSTAINABLE DESIGN SCAN 03/23/2019 12:00 AM EDT EKG 12-LEAD [...] in this encounter Results * SCAN DOC: DIRECTOR OF SUSTAINABLE DESIGN (03/23/2019 12:00 AM EDT) Anatomical Region Laterality [...] (Bezet) 443 ms MUSE SYSTEM Calculated P Doland 28 degrees MUSE SYSTEM Calculated R Doland 19 degrees MUSE SYSTEM Calculated T Doland 22 degrees MUSE SYSTEM INTERPRETATION Normal sinus rhythm Normal ECG When compared with ECG of 20-MAR-2019 14:04, Fusion complexes are no longer Present SC interval has decreased Confirmed by MD Amanda, Oseas ([id number]) on 03/21/2019 11:48:04 AM MUSE SYSTEM 03/21/2019 7:01 AM EDT 03/21/2019 11:48 AM EDT Sean Manzano II, MD ECG ORDERABLES MUSE SYSTEM * (ABNORMAL) Differential, Automated (03/21/2019 3:16 AM EDT) Neutrophil % 69.9 % [facility] Neutrophil Absolute 6.15(H) 1.70 - 6.10 x10(3)/mc L [facility] Lymph % 16.4 % [facility] Lymphocytes Abs 1.4 0.9 - 3.2 x10(3)/mc L [facility] Monocyte % 9.3 % [facility] Monocyte Abs 0.8 0.3 - 0.9 x10(3)/mc L [facility] Eos % 3.6 % [facility] Eosinophils Abs 0.3 0.0 - 0.4 x10(3)/[facility] Basophil % 0.5 % [facility] Baso Absolute 0.0 0.0 - 0.1 x10(3)/[facility] Immature Gran % 0.30 % [facility] Comment: Immature granulocytes(IG's)percentage and absolute count will include metamyelocytes, myelocytes, and promyelocytes. Blood smears from CBCs yielding IG's will be scanned manually for concordance. If this scan disagrees with the automated IG or if promyelocytes are noted, a manual differential will be performed. Immature Gran Absolute 0.03 0.00 - 0.04 x10(3)/[facility] Blood specimen (specimen) 03/21/2019 3:16 AM EDT 03/21/2019 3:23 AM EDT Narrative Resulting Agency Comment Spec In Lab Isael Bedoya MD HEMATOLOGY ORDERABLE S [facility] [place] [address] * Hemogram (03/21/2019 3:16 AM EDT) White Blood Cell 8.8 4.0 - 9.5 x10(3)/[facility] Red Blood Cell 5.34 4.58 - 5.54 x10(6)/[facility] Hemoglobin 15.9 13.7 - 16.5 gm/dL [facility] Hematocrit 46.8 40.5 - 48.5 % [facility] Mean Cell Volume 87.6 82.9 - 93.1 fL [facility] Mean Cell Hemoglobin 29.8 27.5 - 32.1 pg [facility] Mean Cell Hemoglobin Concentration 34.0 32.0 - 35.7 gm/dL [facility] Platelet 189 145 - 357 x10(3)/[facility] RDW Standard Deviation 43.5 36.0 - 45.0 fL [facility] RDW coefficient of variation 13.5 11.4 - 13.8 % [facility] Mean Platelet Volume 9.9 7.6 - 12.9 fL [facility] NRBC% auto 0.0 % [facility] NRBC Absolute 0.000 0.000 - 0.000 x10(3)/[facility] Blood specimen (specimen) 03/21/2019 3:16 AM EDT 03/21/2019 3:23 AM EDT Narrative Resulting Agency Comment Spec In Lab Isael Bedoya MD HEMATOLOGY ORDERABLE S [facility] [place] [address] * Lipid Panel (03/21/2019 3:16 AM EDT) Cholesterol, Total 128 mg/dL [facility] Comment: Lower Risk: <200 mg/dL Average Risk: 200-239 mg/dL Higher Risk: >xc=482 mg/dL Triglyceride 100 mg/dL [facility] Comment: Average Risk/Lower Risk: <150 mg/dL Borderline High Risk: 150-199 mg/dL High Risk: 200-499 mg/dL Very High Risk: >nn=924 mg/dL HDL Cholesterol 51 mg/dL [facility] Comment: Males: ?? Higher Risk: <40 mg/dL Females: ?? HIgher Risk: <50 mg/dL LDL Cholesterol 57 mg/dL [facility] Comment: Lowest Risk: <100 mg/dL Lower Risk: 100-129 mg/dL Borderline High Risk: 130-159 mg/dL High Risk: 160-189 mg/dL Very High Risk: >cu=026 mg/dL Cholesterol/HDL Ratio 2.5 ratio [facility] Lipid Interpretation See Note [facility] Comment: Lipid management should be guided by a patient? s ASCVD risk, goals and preferences. ACC/AHA Guidelines recommend high intensity statin if clinical ASCVD or LDL greater than or equal to 190 mg/dL. http://Caviar.com/EIM-PRT-Frclsmdca Adults aged 40-75 with LDL 70-189 mg/dL should have their 10 year ASCVD risk estimated with the ACC/AHA ASCVD risk divorce lawyer http://tools.acc.org/JQCSX-Ddex-Khyiihfvu/ Statin should be discussed if risk greater [...] Sean Manzano II, MD CHEMISTRY ORDER DARIAN [facility] [place] [address] * BMP w/fasting Glucose (03/21/2019 3:16 AM EDT) Glucose Fasting 81 65 - 99 mg/dL [facility] Comment: ?Fasting* Glucose Interpretive Criteria [...] of Diabetes Mellitus, Position Statement from the [place] Diabetes Association. ??Diabetes Care, Volume 33, Supplement 1, Sep 2009 Blood Urea Nitrogen 14 10 - 20 mg/dL [facility] Creatinine 0.97 0.80 - 1.50 mg/dL [facility] Sodium 139 135 - 145 mmol/L [facility] Potassium 4.0 3.5 - 5.0 mmol/L [facility] Comment: Please note: ??Patients with WBC >100,000 may have falsely elevated Potassium levels. ??For accurate Potassium quantification in these patients send serum separator tube (gold top) for subsequent determinations. ??Contact the Clinical Chemistry Laboratory if there are any questions. Chloride 104 98 - 107 mmol/L [facility] Carbon Dioxide 24 22 - 31 mmol/L [facility] Anion Gap 11 5 - 15 mmol/L [facility] Calcium 8.8 8.5 - 10.5 mg/dL [facility] Est Glomerular Filtration Rate 79 >=60 mL/min/1. 73 m?? [facility] Comment: The eGFR was calculated using the CKD-EPI equation. As with all creatinine based estimates of kidney function, eGFR values calculated with the CKD-EPI equation are not accurate in patients with acute kidney failure, extremes of body mass or the acutely ill. http://[email or web address] eGFR 91 >=60 mL/min/1. 73 m?? [facility] Comment: The eGFR was calculated using the CKD-EPI equation. As with all creatinine based estimates of kidney function, eGFR values calculated with the CKD-EPI equation are not accurate in patients with acute kidney failure, extremes of body mass or the acutely ill. [email or web address] Blood specimen (specimen) 03/21/2019 3:16 AM EDT 03/21/2019 3:23 AM EDT Narrative Resulting Agency Comment Spec In Lab Sean Manzano II, MD CHEMISTRY ORDER DARIAN [facility] [place] [address] * EKG 12 Lead (03/20/2019 2:04 PM EDT) Ventricular rate 59 BPM MUSE SYSTEM Atrial Rate 59 BPM MUSE SYSTEM P-R Interval 236 ms MUSE SYSTEM QRS Duration 110 ms MUSE SYSTEM Q-T Interval 418 ms MUSE SYSTEM QTC Calculated (Bezet) 413 ms MUSE SYSTEM Calculated P Doland 48 degrees MUSE SYSTEM Calculated R Doland 2 degrees MUSE SYSTEM Calculated T Doland 27 degrees MUSE SYSTEM INTERPRETATION Sinus bradycardia with 1st degree A-V block with Fusion complexes Otherwise normal ECG When compared with ECG of 20-MAR-2019 10:26, Fusion complexes are now Present SC interval has increased Confirmed by MD Posey Megan ([id number]) on 03/20/2019 6:27:11 PM MUSE SYSTEM 03/20/2019 2:04 PM EDT 03/20/2019 6:27 PM EDT Sean Manzano II, MD ECG ORDERABLES Performing Organization Address [facility] Co de Phone Number MUSE SYSTEM * EKG 12 Lead (03/20/2019 10:26 AM EDT) Ventricular rate 64 BPM MUSE SYSTEM Atrial Rate 64 BPM MUSE SYSTEM P-R Interval 206 ms MUSE SYSTEM QRS Duration 116 ms MUSE SYSTEM Q-T Interval 402 ms MUSE SYSTEM QTC Calculated (Bezet) 414 ms MUSE SYSTEM Calculated P Doland 19 degrees MUSE SYSTEM Calculated R Doland 8 degrees MUSE SYSTEM Calculated T Doland 28 degrees MUSE SYSTEM INTERPRETATION Normal sinus rhythm Normal ECG When compared with ECG of 16-FEB-2019 10:55, No significant change was found Confirmed by MD Posey Megan ([id number]) on 03/20/2019 6:27:09 PM MUSE SYSTEM 03/20/2019 10:2 6 AM EDT 03/20/2019 6:27 PM EDT Syed Garcia MD ECG ORDERABLES Performing Organization Address [facility] Co de Phone Number MUSE SYSTEM * Differential, Automated (03/20/2019 9:47 AM EDT) Neutrophil % 55.1 % [facility] Neutrophil Absolute 3.84 1.70 - 6.10 x10(3)/[facility] Lymph % 31.3 % [facility] Lymphocytes Abs 2.2 0.9 - 3.2 x10(3)/[facility] Monocyte % 8.7 % [facility] Monocyte Abs 0.6 0.3 - 0.9 x10(3)/[facility] Eos % 4.4 % [facility] Eosinophils Abs 0.3 0.0 - 0.4 x10(3)/[facility] Basophil % 0.4 % [facility] Baso Absolute 0.0 0.0 - 0.1 x10(3)/[facility] Immature Gran % 0.10 % [facility] Comment: Immature granulocytes(IG's)percentage and absolute count will include metamyelocytes, myelocytes, and promyelocytes. Blood smears from CBCs yielding IG's will be scanned manually for concordance. If this scan disagrees with the automated IG or if promyelocytes are noted, a manual differential will be performed. Immature Gran Absolute 0.01 0.00 - 0.04 x10(3)/[facility] Blood specimen (specimen) 03/20/2019 9:47 AM EDT 03/20/2019 10:01 AM EDT Narrative Resulting Agency Comment Spec In Lab [place] GO HEMATOLOGY ORDERABLE S [facility] [place] [address] * (ABNORMAL) Hemogram (03/20/2019 9:47 AM EDT) White Blood Cell 7.0 4.0 - 9.5 x10(3)/[facility] Red Blood Cell 5.66(H) 4.58 - 5.54 x10(6)/[facility] Hemoglobin 16.7(H) 13.7 - 16.5 gm/dL [facility] Hematocrit 52.1(H) 40.5 - 48.5 % [facility] Mean Cell Volume 92.0 82.9 - 93.1 fL [facility] Mean Cell Hemoglobin 29.5 27.5 - 32.1 pg [facility] Mean Cell Hemoglobin Concentration 32.1 32.0 - 35.7 gm/dL [facility] Platelet 225 145 - 357 x10(3)/mc L [facility] RDW Standard Deviation 46.8(H) 36.0 - 45.0 fL [facility] RDW coefficient of variation 13.8 11.4 - 13.8 % [facility] Mean Platelet Volume 9.8 7.6 - 12.9 [facility] NRBC% auto 0.0 % [facility] NRBC Absolute 0.000 0.000 - 0.000 x10(3)/mc L [facility] Blood specimen (specimen) 03/20/2019 9:47 AM EDT 03/20/2019 10:01 AM EDT Narrative Resulting Agency Comment Spec In Lab [place] HEMATOLOGY ORDERABLE S [facility] [place] [address] * (ABNORMAL) BMP w/fasting Glucose (03/20/2019 9:47 AM EDT) Glucose Fasting 104(H) 65 - 99 mg/dL [facility] Comment: ?Fasting* Glucose Interpretive Criteria [...] of Diabetes Mellitus, Position Statement from the [place] Diabetes Association. ??Diabetes Care, Volume 33, Supplement 1, Sep 2009 Blood Urea Nitrogen 19 10 - 20 mg/dL [facility] Creatinine 1.10 0.80 - 1.50 mg/dL [facility] Sodium 141 135 - 145 mmol/L [facility] Potassium 4.4 3.5 - 5.0 mmol/L [facility] Comment: Please note: ??Patients with WBC >100,000 may have falsely elevated Potassium levels. ??For accurate Potassium quantification in these patients send serum separator tube (gold top) for subsequent determinations. ??Contact the Clinical Chemistry Laboratory if there are any questions. Chloride 104 98 - 107 mmol/L [facility] Carbon Dioxide 27 22 - 31 mmol/L [facility] Anion Gap 10 5 - 15 mmol/L [facility] Calcium 9.5 8.5 - 10.5 mg/dL [facility] Est Glomerular Filtration Rate 68 >=60 mL/min/1. 73 m?? [facility] Comment: The eGFR was calculated using the CKD-EPI equation. As with all creatinine based estimates of kidney function, eGFR values calculated with the CKD-EPI equation are not accurate in patients with acute kidney failure, extremes of body mass or the acutely ill. [email or web address] eGFR 78 >=60 mL/min/1. 73 m?? [facility] Comment: The eGFR was calculated using the CKD-EPI equation. As with all creatinine based estimates of kidney function, eGFR values calculated with the CKD-EPI equation are not accurate in patients with acute kidney failure, extremes of body mass or the acutely ill. [email or web address] Blood specimen (specimen) 03/20/2019 9:47 AM EDT 03/20/2019 10:01 AM EDT Narrative Resulting Agency Comment Spec In Lab Syed Garcia MD CHEMISTRY ORDERABLES [facility] [place] [address] documented in this encounter Visit Diagnoses Diagnosis Abnormal stress test Other nonspecific abnormal cardiovascular system function study Chest discomfort Other chest pain Abnormal stress test Other nonspecific abnormal cardiovascular system function study Chest discomfort Other chest pain documented in this encounter Admitting Diagnoses Diagnosis CAD (coronary artery disease) Coronary atherosclerosis of unspecified type of vessel, [place] or graft documented in this encounter Administered [...] Discontinued, Routine 172 (Given - Provider: Miranda Quintanilla, ASHLEY) 0813 (Given - Provider: Miranda Quintanilla, ASHLEY) atorvastatin (LIPITOR) tablet 40 mg 40 mg, Oral, EVERY EVENING, First dose on Sat03/20/19 at 1700, Until Discontinued 172 (Given - Provider: Miranda Quintanilla RN) budesonide-formoterol [...] Discontinued, DO NOT CRUSH OR OPEN, Routine 1727 (Given - Provider: Miranda Quinatnilla RN) 08 (Given - Provider: Miranda Quintanilla [...] on Sat03/21/19 at 0600, Until Discontinued, Routine 06 (Given - Provid er: Breann Flynn RN) losartan (COZAAR) tablet 25 mg 25 mg, Oral, DAILY, First dose on Sat03/21/19 at 0900, Until Discontinued, Routine 0813 (Given [...] II) documented in this encounter Care Teams Battery Plate Remover Relationship Specialty Start Date End Date Arelis Michele MD [address] [place] [address] PCP - General Family Medicine 08/01/18 02/11/24 documented as of this encounter
--- OUTSIDE RECORDS SUMMARY | 2024-04-24 21:07 | XMS_ITS | Encounter Summary ---
Author Organization [facility] [place] [address] Care Team Providers Care Administrative Support Coordinator Name Role Phone Arelis Michele MD Primary Care Provider [phone] Reason for Referral * Diagnostic Test (Emergency) - Closed Specialty Diagnoses / Procedures Referred By Azam corbett Referred To Contact Radiology Diagnoses Edema of right lower extremity Procedures CT Knee wo Contrast Right (Generic) Dianne Norton APRN [facility] [place] [address] [facility] [place] [address] Referral ID Status Reason Start Date Expiration Date V isits Requested Visits Authorized [id number] Closed Specialty Service Requested 07/02/2019 07/01/2020 1 1 Encounter Details Date Type Department Care Team (Late st Contact Info) Description 07/02/2019 11:00 AM EDT Office [place] [address] Dianne Norton APRN [facility] [place] [address] Edema of right lower extremity; [...] which wasunremarkable. He went to ED at [facility]. No tick bites, but does [...] taking 1000mg APAP. No NSAID. Going to [place] for 14 days on Saturday He is [...] what diagnosis is. Treated by Dr. Sommers ([facility] Cardiology). History of depression - current [...] tendon rupture at right knee -CT today intermediate frame tender steroid use -continue with medrol 2mg daily -continue with vit d supplementation, avoiding ca supplementation d/t kidney stones -continue with weightbearing activity Health Maintenance -Flu iz today RTC pending results documented in this encounter Plan of Treatment Upcoming Encounters Date Type Department Care Team (Late st Contact Info) Description 04/28/2024 12:00 PM EDT Hospital [place] [address] 05/14/2024 1:00 PM EDT Office Visit Dermatology at [address] [address] 08/18/2024 10:00 AM EST [place] [address] Alice Carney APRN [facility] [place] [address] 08/18/2024 12:00 PM EST [place] [address] 12/08/2024 12:00 PM EDT [place] [address] documented as of this encounter Procedures Procedure [...] tibioperoneal trunk and branches. Procedure Note Ever Pulido, - 07/02/2019 EXAMINATION: CT KNEE WO CONTRAST [...] number below. Electronically signed by: Ever Pulido [facility]([phone]), at 07/02/2019 6:28 PM Dianne Norton RAILROAD DETECTIVE IMG CT ORDERABLES * Differential, Automated (07/02/2019 12:54 PM EDT) Neutrophil % 66.2 % [facility] Neutrophil Absolute 5.87 1.70 - 6.10 x10(3)/[facility] Lymph % 22.5 % [facility] Lymphocytes Abs 2.0 0.9 - 3.2 x10(3)/[facility] Monocyte % 8.5 % [facility] Monocyte Abs 0.8 0.3 - 0.9 x10(3)/[facility] Eos % 2.4 % [facility] Eosinophils Abs 0.2 0.0 - 0.4 x10(3)/[facility] Basophil % 0.3 % [facility] Baso Absolute 0.0 0.0 - 0.1 x10(3)/[facility] Immature Gran % 0.10 % [facility] Comment: Immature granulocytes(IG's)percentage and absolute count will include metamyelocytes, myelocytes, and promyelocytes. Blood smears from CBCs yielding IG's will be scanned manually for concordance. If this scan disagrees with the automated IG or if promyelocytes are noted, a manual differential will be performed. Immature Gran Absolute 0.01 0.00 - 0.04 x10(3)/[facility] Blood specimen (specimen) 07/02/2019 12:54 PM EDT 07/02/2019 1:12 PM EDT Narrative Resulting Agency Comment Spec In Lab Dianne Norton RAILROAD DETECTIVE HEMATOLOGY ORDERABLE S [facility] [place] [address] * (ABNORMAL) Hemogram (07/02/2019 12:54 PM EDT) White Blood Cell 8.9 4.0 - 9.5 x10(3)/mc L [facility] Red Blood Cell 4.82 4.58 - 5.54 x10(6)/mc L [facility] Hemoglobin 14.4 13.7 - 16.5 gm/dL [facility] Hematocrit 44.0 40.5 - 48.5 % [facility] Mean Cell Volume 91.3 82.9 - 93.[address] [facility] Mean Cell Hemoglobin 29.9 27.5 - 32.[address] [facility] Mean Cell Hemoglobin Concentration 32.7 32.0 - 35.7 gm/dL [facility] Platelet 226 145 - 357 x10(3)/mc L [facility] RDW Standard Deviation 47.0(H) 36.0 - 45.0 [facility] RDW coefficient of variation 13.8 11.4 - 13.8 % [facility] Mean Platelet Volume 9.8 7.6 - 12.[address] [facility] NRBC% auto 0.0 % [facility] NRBC Absolute 0.000 0.000 - 0.000 x10(3)/mc L [facility] Blood specimen (specimen) 07/02/2019 12:54 PM EDT 07/02/2019 1:12 PM EDT Narrative Resulting Agency Comment Spec In Lab Dianne Norton APRN HEMATOLOGY ORDERABLE S [facility] [place] [place] [address] * Lyme IgG & IgM Antibody (07/02/2019 12:54 PM EDT) Lyme Antibody Neg Neg [facility] Blood specimen (specimen) 07/02/2019 12:54 PM EDT 07/03/2019 8:19 AM EDT Narrative Resulting Agency Comment Spec In Lab Dianne Norton APRN IMMUNOLOGY ORDERABLE S Performing Organization Address City/[facility]/ZIP Co de Phone Number [facility] [place] [address] * (ABNORMAL) CRP, acute inflammation (07/02/2019 12:54 PM EDT) C-Reactive Protein 34.1(H) <=4.9 mg/L [facility] Blood specimen (specimen) 07/02/2019 12:54 PM EDT 07/02/2019 1:17 PM EDT Narrative Resulting Agency Comment Spec In Lab Dianne Norton RAILROAD DETECTIVE CHEMISTRY ORDERABLES Performing Organization Address [facility] Co de Phone Number [facility] [place] [place] [address] * Sedimentation rate (07/02/2019 12:54 PM EDT) Sedimentation Rate Automated 6 0 - 15 mm/hr [facility] Blood specimen (specimen) 07/02/2019 12:54 PM EDT 07/02/2019 1:12 PM EDT Narrative Resulting Agency Comment Spec In Lab Dianne Norton RAILROAD DETECTIVE HEMATOLOGY ORDERABLE S Performing Organization Address City/[facility]/ZIP Co de Phone Number [facility] [place] [place] [address] * Comprehensive metabolic panel (non-fasting) (07/02/2019 12:54 PM EDT) Glucose 103 65 - 199 mg/dL [facility] Comment:Diabetes: >=200 mg/d L plus symptoms Blood Urea Nitrogen 16 10 - 20 mg/dL [facility] Creatinine 0.99 0.80 - 1.50 mg/dL [facility] Sodium 138 135 - 145 mmol/L [facility] Potassium 4.2 3.5 - 5.0 mmol/L [facility] Comment: Please note: ??Patients with WBC >100,000 may have falsely elevated Potassium levels. ??For accurate Potassium quantification in these patients send serum separator tube (gold top) for subsequent determinations. ??Contact the Clinical Chemistry Laboratory if there are any questions. Chloride 104 98 - 107 mmol/L [facility] Carbon Dioxide 27 22 - 31 mmol/L [facility] Anion Gap 7 5 - 15 mmol/L [facility] Calcium 8.9 8.5 - 10.5 mg/dL [facility] Protein, Total 6.5 6.1 - 8.0 gm/dL [facility] Albumin 4.0 3.2 - 5.2 gm/dL [facility] Aspartate Aminotransferase 18 0 - 39 unit/L [facility] Alanine Aminotransferase 19 0 - 55 unit/L [facility] Alkaline Phosphatase 108 40 - 130 unit/L [facility] Bilirubin, Total 0.7 0.2 - 1.3 mg/dL [facility] Est Glomerular Filtration Rate 77 >=60 mL/min/1. 73 m?? [facility] Comment: The eGFR was calculated using the CKD-EPI equation. As with all creatinine based estimates of kidney function, eGFR values calculated with the CKD-EPI equation are not accurate in patients with acute kidney failure, extremes of body mass or the acutely ill. http://[employer]/DHnkf eGFR 89 >=60 mL/min/1. 73 m?? [facility] Comment: The eGFR was calculated using the CKD-EPI equation. As with all creatinine based estimates of kidney function, eGFR values calculated with the CKD-EPI equation are not accurate in patients with acute kidney failure, extremes of body mass or the acutely ill. http://[employer]/MCnkf Blood specimen (specimen) 07/02/2019 12:54 PM EDT 07/02/2019 1:17 PM EDT Narrative Resulting Agency Comment Spec In Lab Dianne Norton RAILROAD DETECTIVE CHEMISTRY ORDERABLES Performing Organization Address City/State/[facility] Co de Phone Number [facility] [place] [address] documented in this encounter Visit Diagnoses Diagnosis Edema of right lower extremity Edema Rheumatoid arthritis with positive rheumatoid factor, involving unspecified site Joint swelling Effusion of joint, site unspecified Edema of right lower extremity Edema documented in this encounter Care Teams Administrative Support Coordinator Relationship Specialty Start Date End Date Arelis Michele MD [address] [place] [address] PCP - General Family Medicine 08/01/18 02/11/24 documented as of this encounter
--- OUTSIDE RECORDS SUMMARY | 2024-04-24 21:07 | XMS_ITS | Encounter Summary ---
Author Organization [facility] [place] [address] Care Team Providers Care Warehouse Stocker Name Role Phone Arelis Michele MD Primary Care Provider [phone] Encounter Details Date Type Department Care Team (Late st Contact Info) Description 02/16/2019 12:02 PM EDT Anesthesia Event [place] [address] James Bourne MD [facility] [place] [address] Mely Azul CRNA [facility] [place] [address] Anesthesia Record Procedure Summary Procedure Name Responsible [...] Procedure Summary Date: 02/16/19 Room / Location: [facility] 3 / [facility] Anesthesia Start: 1202 Anesthesia Stop: 1322 [...] All Anesthesia Providers: Anesthesiologist: James Bourne MD DEVIL TENDER: Mely Azul CRNA Vitals Value Taken Time [...] eye ??? Osteopenia ?? Osteopenia, [place] [...] I will be working with either a DEVIL TENDER or resident physician. A resident physician means a physician who is in training to be an anesthesiologist. The patient acknowledged these risks and would like to proceed with the anesthesia plan. Sedation with GA back up. I will obtain baseline EKG. Informed Consent: Anesthetic plan and risks discussed with patient. Plan discussed with DEVIL TENDER. PAT Clinic Note documented in this encounter Plan of Treatment Upcoming Encounters Date Type Department Care Team (Late st Contact Info) Description 04/28/2024 12:00 PM EDT Hospital Encounter [place] [address] 05/14/2024 1:00 PM EDT Office Visit Dermatology at [address] [address] 08/18/2024 10:00 AM EST Office [place] [address] Alice Carney APRN [facility] [place] [address] 08/18/2024 12:00 PM EST Appointment [place] [address] 12/08/2024 12:00 PM EDT Appointment [place] [address] documented as of this encounter Visit Diagnoses [...] mL/hr documented in this encounter Care Teams Warehouse Stocker Relationship Specialty Start Date End Date Arelis Michele MD [address] [place] [address] PCP - General Family Medicine 08/01/18 02/11/24 documented as of this encounter
--- OUTSIDE RECORDS SUMMARY | 2024-04-24 21:07 | XMS_ITS | Encounter Summary ---
Author Organization [facility] [place] [address] Care Team Providers Care Journeyman Tool And Die Maker Name Role Phone Arelis Michele MD Primary Care Provider Encounter Details Date Type Department Care Team (Late st Contact Info) Description 09/23/2018 [place] [address] Monty Green, RN Social History Tobacco Use [...] PM EDT Hospital En[place] [address] 05/14/2024 1:00 PM EDT Office Visit Dermatology at [facility] [address] [place] [address] 08/18/2024 10:00 AM EST Office [place] [address] Alice Carney, STRAIGHTEDGE WORKER [facility] [place] [address] 08/18/2024 12:00 PM EST [place] [address] 12/08/2024 12:00 PM EDT [place] [address] documented as of this encounter Visit Diagnoses Not on filedocumented in this encounter Care Teams Journeyman Tool And Die Maker Relationship Specialty Start Date End Date Arelis Michele MD [address] [place] [address] PCP - General Family Medicine 08/01/18 02/11/24 documented as of this encounter
--- OUTSIDE RECORDS SUMMARY | 2024-04-24 21:07 | XMS_ITS | Encounter Summary ---
Author Organization [facility] [place] [address] Care Team Providers Care Mold Repair Technician Name Role Phone Arelis Michele MD Primary Care Provider [phone] Encounter Details Date Type Department Care Team (Late st Contact Info) Description 02/16/2019 11:00 AM EDT - 02/16/2019 12:00 PM EDT Surgery Gastroenterology at [facility] [address] [place] [address] EGD,WITH DILATION ESOPHAGUS WITH BALLOON,< 30 MM [...] to be checked. Saturday-Saturday Same Day Endo [phone] Otherwise contact [phone] and ask to speak to the senior military analyst transactional paralegal Follow up care is a rm part [...] PM EDT Hospital Encounter [place] [address] 05/14/2024 1:00 PM EDT Office Visit Dermatology at [address] [address] 08/18/2024 10:00 AM EST Office [place] [address] Alice Carney, [facility] [address] 08/18/2024 12:00 PM EST Appointment [place] [address] 12/08/2024 12:00 PM EDT Appointment [place] [address] documented as of this encounter Procedures Procedure [...] PM EDT 02/16/2019 1:20 PM EDT Narrative [facility] - 02/16/2019 1:20 PM EDT Specimen requisition ordered. ??Separate Pathology report to follow Sarwat Villarreal MD PATHOLOGY/CYTOLOGY O RDERABLES [facility] [place] [address] * Specimen to Pathology (02/16/2019 1:20 PM EDT) AP Specimen 02/16/2019 1:20 PM EDT 02/16/2019 1:20 PM EDT Narrative [facility] - 02/16/2019 1:20 PM EDT Specimen requisition ordered. ??Separate Pathology report to follow Sarwat Villarreal MD PATHOLOGY/CYTOLOGY O NANCY Performing Organization Address [facility] [place] [address] * Specimen to Pathology (02/16/2019 1:20 PM EDT) AP Specimen 02/16/2019 1:20 PM EDT 02/16/2019 1:20 PM EDT Narrative [facility] - 02/16/2019 1:20 PM EDT Specimen requisition ordered. ??Separate Pathology report to follow Sarwat Villarreal MD PATHOLOGY/CYTOLOGY O NANCY Performing Organization Address [facility] [place] [address] * Specimen to Pathology (02/16/2019 1:20 PM EDT) AP Specimen 02/16/2019 1:20 PM EDT 02/16/2019 1:20 PM EDT Narrative [facility] - 02/16/2019 1:20 PM EDT Specimen requisition ordered. ??Separate Pathology report to follow Srawat Villarreal MD PATHOLOGY/CYTOLOGY O NANCY Performing Organization Address [facility] [place] [address] * Surgical Pathology Report (02/16/2019 12:17 PM EDT) Pathologist [facility] Final Diagnosis [id number] ? Location: 4T; EA10; A The signing [...] MD Verified: ??02/19/2019 ?Pathologist Performed at: ??-[facility] Dept. of Pathology, [place], [place] CLINICAL INFORMATION Specimen Submitted: A - [...] SPECIMEN PROCESSING ??sns 02/19/2019 11:13 AM EDT [facility] GI Biopsy 02/16/2019 12:1 7 PM EDT 02/16/2019 12:17 PM EDT GI Biopsy 02/16/2019 12:1 7 PM EDT 02/16/2019 12:17 PM EDT GI Biopsy 02/16/2019 12:1 7 PM EDT 02/16/2019 12:17 PM EDT GI Biopsy 02/16/2019 12:1 7 PM EDT 02/16/2019 12:17 PM EDT Sarwat Villarreal MD PATHOLOGY/CYTOLOGY O RDERABLES [facility] [place] [address] * COLONOSCOPY (02/16/2019 11:54 AM EDT) COLONOSCOPY [facility] Endoscopy Procedure Date: 02/16/2019 11:54 AM ? Patient Name: Wesly Ybarra ? N: [id number] ? Date of : 1950 ? Age: 68 ? Order #: [id number] ? Instrument Name: [id number] ? Procedure: ? Colonoscopy Indications: ? Screening for colorectal malignant ? neoplasm Providers: ? Sarwat Villarreal, Uriah Cruz RN, ? Janet Coburn, Banding Machine Operator Referring MD: ?Arelis Michele MD Medicines: ? Monitored Anesthesia [...] by the physician, the ? nurse, the promotions director and the ? lock technician. The procedure was ? verified in [...] preparation was evaluated using ? the BBPS ([place] Bowel Preparation ? Scale) with scores of: [...] (02/16/2019 11:53 AM EDT) UPPER GI ENDOSCOPY [facility] Endoscopy Procedure Date: 02/16/2019 11:53 AM ? Patient Name: Wesly Ybarra ? Date of : 1950 ? Age: 68 ? Order #: [id number] ? Instrument Name: [id number] ? Procedure: ? Upper GI endoscopy Indications: ? Dysphagia Providers: ? Sarwat Villarreal, Uriah Cruz, RN, ? Janet Coburn, Banding Machine Operator Referring MD: ?Arelis Michele MD Medicines: ? Monitored Anesthesia [...] by the physician, the ? nurse, the promotions director and the ? lock technician. The procedure was ? verified in [...] Arelis Michele MD GENERAL SURGICAL ORD ERABLES Performing Organization Address City/[facility] Co de Phone Number [facility] * EKG 12 Lead (02/16/2019 10:55 AM EDT) Ventricular rate 85 BPM MUSE SYSTEM Atrial Rate 85 BPM MUSE SYSTEM P-R Interval 204 ms MUSE SYSTEM QRS Duration 110 ms MUSE SYSTEM Q-T Interval 374 ms MUSE SYSTEM QTC Calculated (Bezet) 445 ms MUSE SYSTEM Calculated P [place] 48 degrees MUSE SYSTEM Calculated T [place] 28 degrees MUSE SYSTEM INTERPRETATION Normal sinus rhythm Normal ECG When compared with ECG of 02-NOV-2003 13:04, Previous ECG has undetermined rhythm, needs review Confirmed by MD Taty, Mely ([id number]) on 02/16/2019 8:31:39 PM MUSE SYSTEM 02/16/2019 10:5 5 AM EDT 02/16/2019 8:31 PM EDT James Bourne MD ECG ORDERABLES Performing Organization Address [facility] Co de Phone Number MUSE SYSTEM documented in this encounter Visit Diagnoses Not on filedocumented in this encounter Active and Recently Administered Medications Care Teams Mold Repair Technician Relationship Specialty Start Date End Date Arelis Michele MD [address] [place] [address] PCP - General Family Medicine 08/01/18 02/11/24 documented as of this encounter
--- OUTSIDE RECORDS SUMMARY | 2024-04-24 21:07 | XMS_ITS | Encounter Summary ---
Author Organization [facility] [place] [address] Care Team Providers Care Buttermaker Name Role Phone Arelis Michele MD Primary Care Provider [phone] Encounter Details Date Type Department Care Team (Late st Contact Info) Description 09/05/2018 Telephone [place] [address] Tiara Torres Social History Tobacco Use Types [...] PM EDT Hospital Encounter [place] [address] 05/14/2024 1:00 PM EDT Office Visit Dermatology at [address] [place] [address] 08/18/2024 10:00 AM EST Office [place] [address] Alice Carney APRN [facility] [place] [address] 08/18/2024 12:00 PM EST Appointment [place] [address] 12/08/2024 12:00 PM EDT Appointment [place] [address] documented as of this encounter Visit Diagnoses Not on filedocumented in this encounter Care Teams Buttermaker Relationship Specialty Start Date End Date Arelis Michele MD [address] [place] [address] PCP - General Family Medicine 08/01/18 02/11/24 documented as of this encounter
--- OUTSIDE RECORDS SUMMARY | 2024-04-24 21:07 | XMS_ITS | Encounter Summary ---
Author Organization [facility] [place] [address] Care Team Providers Care Manager Heart Name Role Phone Arelis Michele MD Primary Care Provider [phone] Encounter Details Date Type Department Care Team (Late st Contact Info) Description 09/22/2018 Orders [place] [address] Steven Soliz MD [facility] [place] [address] Social History Tobacco Use Types Packs/Day Years [...] PM EDT Hospital En[place] [address] 05/14/2024 1:00 PM EDT Office Visit Dermatology at [facility] [address] [place] [address] 08/18/2024 10:00 AM EST [place] [address] Alice Carney, OPERATIONS MANAGEMENT TRAINEE [facility] [place] [address] 08/18/2024 12:00 PM EST [place] [address] 12/08/2024 12:00 PM EDT [place] [address] documented as of this encounter Visit Diagnoses Not on filedocumented in this encounter Care Teams Manager Heart Relationship Specialty Start Date End Date Arelis Michele MD [address] [place] [address] PCP - General Family Medicine 08/01/18 02/11/24 documented as of this encounter
--- OUTSIDE RECORDS SUMMARY | 2024-04-24 21:07 | XMS_ITS | Encounter Summary ---
[place] [address] Care Team Providers Care Territory Manager Name Role Phone Arelis Michele MD Primary Care Provider [phone] Reason for Referral * Diagnostic Test (Emergency) - Closed Specialty Diagnoses / Procedures Referred By Contac t Referred To Contact Radiology Diagnoses Edema of right lower extremity Procedures CT Knee wo Contrast Right (Generic) Dianne Norton APRN [facility] [place] [address] [facility] [place] [address] Referral ID Status Reason Start Date Expiration Date V isits Requested Visits Authorized [id number] Closed Specialty Service Requested 07/02/2019 07/01/2020 1 1 Reason for Visit * Diagnostic Test (Emergency) - Closed Specialty Diagnoses / Procedures Referred By Contac t Referred To Contact Radiology Diagnoses Edema of right lower extremity Procedures CT Knee wo Contrast Right (Generic) Dianne Norton APRN [facility] [place] [address] [facility] [place] [address] Referral ID Status Reason Start Date Expiration Date V isits Requested Visits Authorized [id number] Closed Specialty Service Requested 07/02/2019 07/01/2020 1 1 Encounter Details Date Type Department Care Team (Latest Contact Info) Description 07/02/2019 5:20 PM EDT - 07/02/2019 11:59 PM EDT Hospital Encounter CT Scan at [facility] [place] [address] Dianne Norton, ITA [facility] [place] [place] [address] Edema of right lower extremity Discharge Disposition: [...] PM EDT Hospital En[place] [address] 05/14/2024 1:00 PM EDT Office Visit Dermatology at [facility] [address] [place] [address] 08/18/2024 10:00 AM EST Office [place] [address] Alice Carney APRN [facility] [place] [address] 08/18/2024 12:00 PM EST [place] [address] 12/08/2024 12:00 PM EDT [place] [address] documented as of this encounter Procedures Procedure [...] please contact the number below. Dianne Norton PROGRAM DIRECTOR IMG CT ORDERABLES documented in this encounter Visit Diagnoses Diagnosis Edema of right lower extremity Edema documented in this encounter Care Teams Territory Manager Relationship Specialty Start Date End Date Arelis Michele MD [address] [place] [address] PCP - General Family Medicine 08/01/18 02/11/24 documented as of this encounter
--- OUTSIDE RECORDS SUMMARY | 2024-04-24 21:07 | XMS_ITS | Encounter Summary ---
Author Organization [facility] [address] Care Team Providers Care Optical Coating Technician Name Role Phone Arelis Michele MD Primary Care Provider [phone] Encounter Details Date Type Department Care Team (Latest Contact Info) Description 02/16/2019 10:00 AM EDT - 02/16/2019 2:13 PM EDT Hospital Encounter Gastroenterology at [facility] [place] [address] Sar[place] [address] Gastroesophageal reflux disease, esophagitis presence not specified [...] to be checked. Saturday-Saturday Same Day Endo [phone] Otherwise contact [phone] and ask to speak to the global ceo monomer recovery supervisor Follow up care is a rm part [...] PM EDT Hospital En[place] [address] 05/14/2024 1:00 PM EDT Office Visit Dermatology at [address] [address] 08/18/2024 10:00 AM EST Office [place] [address] Alice Carney ELECTROLOG OPERATOR [facility] [place] [address] 08/18/2024 12:00 PM EST [place] [address] 12/08/2024 12:00 PM EDT [place] [address] documented as of this encounter Procedures Procedure [...] PM EDT 02/16/2019 1:20 PM EDT Narrative [facility] - 02/16/2019 1:20 PM EDT Specimen requisition ordered. ??Separate Pathology report to follow Sarwat Villarreal MD PATHOLOGY/CYTOLOGY O RDERABLES [facility] [place] [address] * Specimen to Pathology (02/16/2019 1:20 PM EDT) AP Specimen 02/16/2019 1:20 PM EDT 02/16/2019 1:20 PM EDT Narrative [facility] - 02/16/2019 1:20 PM EDT Specimen requisition ordered. ??Separate Pathology report to follow Sarwat Villarreal MD PATHOLOGY/CYTOLOGY O NANCY Performing Organization Address [facility] [place] [address] * Specimen to Pathology (02/16/2019 1:20 PM EDT) AP Specimen 02/16/2019 1:20 PM EDT 02/16/2019 1:20 PM EDT Narrative [facility] - 02/16/2019 1:20 PM EDT Specimen requisition ordered. ??Separate Pathology report to follow Sarwat Villarreal MD PATHOLOGY/CYTOLOGY O NANCY Performing Organization Address [facility] [place] [address] * Specimen to Pathology (02/16/2019 1:20 PM EDT) AP Specimen 02/16/2019 1:20 PM EDT 02/16/2019 1:20 PM EDT Narrative [facility] - 02/16/2019 1:20 PM EDT Specimen requisition ordered. ??Separate Pathology report to follow Sarwat Villarreal MD PATHOLOGY/CYTOLOGY O NANCY Performing Organization Address [facility] [place] [address] * Surgical Pathology Report (02/16/2019 12:17 PM EDT) Final Diagnosis [id number] ? Location: 4T; EA10; A The signing [...] Holt MD Verified: ??02/19/2019 ?Pathologist Performed at: ??-[facility] Dept. of Pathology, [place], [place] CLINICAL INFORMATION Specimen Submitted: A - [...] SPECIMEN PROCESSING ??sns 02/19/2019 11:13 AM EDT [facility] GI Biopsy 02/16/2019 12:1 7 PM EDT 02/16/2019 12:17 PM EDT GI Biopsy 02/16/2019 12:1 7 PM EDT 02/16/2019 12:17 PM EDT GI Biopsy 02/16/2019 12:1 7 PM EDT 02/16/2019 12:17 PM EDT GI Biopsy 02/16/2019 12:1 7 PM EDT 02/16/2019 12:17 PM EDT Sarwat Villarreal MD PATHOLOGY/CYTOLOGY O RDERABLES [facility] [place] [address] * COLONOSCOPY (02/16/2019 11:54 AM EDT) COLONOSCOPY [facility] Endoscopy Procedure Date: 02/16/2019 11:54 AM ? Patient Name: Wesly Ybarra ? N: [id number] ? Date of : 1950 ? Age: 68 ? Order #: [id number] ? Instrument Name: [id number] ? Procedure: ? Colonoscopy Indications: ? Screening for colorectal malignant ? neoplasm Providers: ? Sarwat Villarreal, Uriah Cruz, ASHLEY, ? Janet Coburn, Transactional Attorney Referring MD: ?Arelis Michele MD Medicines: ? [...] by the physician, the ? nurse, the camp head counselor and the ? photovoltaic fabrication technician. The procedure was ? verified in [...] preparation was evaluated using ? the BBPS ([place] Bowel Preparation ? Scale) with scores of: [...] 11:53 AM EDT) UPPER GI ENDOSCOPY [facility] Endoscopy Procedure Date: 02/16/2019 11:53 AM ? Patient Name: Wesly Ybarra ? Date of : 1950 ? Age: 68 ? Order #: [id number] ? Instrument Name: [id number] ? Procedure: ? Upper GI endoscopy Indications: ? Dysphagia Providers: ? Sarwat Villarreal, Uriah Cruz RN, ? Janet Coburn, Transactional Attorney Referring MD: ?Arelis Michele MD Medicines: ? [...] by the physician, the ? nurse, the camp head counselor and the ? photovoltaic fabrication technician. The procedure was ? verified in [...] GENERAL SURGICAL ORD ERABLES Performing Organization Address [facility] Co de Phone Number [facility] * EKG 12 Lead (02/16/2019 10:55 AM EDT) Ventricular rate 85 BPM MUSE SYSTEM Atrial Rate 85 BPM MUSE SYSTEM P-R Interval 204 ms MUSE SYSTEM QRS Duration 110 ms MUSE SYSTEM Q-T Interval 374 ms MUSE SYSTEM QTC Calculated (Bezet) 445 ms MUSE SYSTEM Calculated P [place] 48 degrees MUSE SYSTEM Calculated T [place] 28 degrees MUSE SYSTEM INTERPRETATION Normal sinus rhythm Normal ECG When compared with ECG of 02-NOV-2003 13:04, Previous ECG has undetermined rhythm, needs review Confirmed by MD Taty, Mely ([id number]) on 02/16/2019 8:31:39 PM MUSE SYSTEM 02/16/2019 10:5 5 AM EDT 02/16/2019 8:31 PM EDT James Bourne MD ECG ORDERABLES Performing Organization Address [facility] Co de Phone Number MUSE SYSTEM documented in this encounter Visit Diagnoses Diagnosis Gastroesophageal reflux disease, esophagitis presence not specified documented in this encounter Active and Recently Administered Medications Care Teams Optical Coating Technician Relationship Specialty Start Date End Date Arelis Michele MD [address] [place] [address] PCP - General Family Medicine 08/01/18 02/11/24 documented as of this encounter
--- OUTSIDE RECORDS SUMMARY | 2024-04-24 21:07 | XMS_ITS | Encounter Summary ---
[place] [address] Care Team Providers Care Active Directory Administrator Name Role Phone Arelis Michele MD Primary Care Provider [phone] Reason for Visit * Reason Onset Date Comments Referral 07/20/2019 Encounter Details Date Type Department Care Team (Late st Contact Info) Description 07/20/2019 [place] [address] Lionel Rabago, record filing clerk Social History Tobacco Use Types Packs/Day Years [...] were not included. Dianne Norton APRN [facility] Rheumatology Nurse ?? Please call pt and relay the following: I reviewed [facility] ED notes. I would like to get a knee MRI here, and I would like him to be evaluatedby our ortho dept. Please ask if he is amenable to this. When is he back from his trip? Spoke with patient. Updated on above. Amenable to MRI of knee and [facility] ortho referral. documented in this encounter Plan of Treatment Upcoming Encounters Date Type Department Care Team (Late st Contact Info) Description 04/28/2024 12:00 PM EDT Hospital En[place] [address] 05/14/2024 1:00 PM EDT Office Visit Dermatology at [facility] [address] [place] [address] 08/18/2024 10:00 AM EST Office [place] [address] Alice Carney, SHINE WORKER [facility] [place] [address] 08/18/2024 12:00 PM EST App[place] [address] 12/08/2024 12:00 PM EDT [place] [address] documented as of this encounter Visit Diagnoses Not on filedocumented in this encounter Care Teams Active Directory Administrator Relationship Specialty Start Date End Date Arelis Michele MD [address] [place] [address] PCP - General Family Medicine 08/01/18 02/11/24 documented as of this encounter
--- OUTSIDE RECORDS SUMMARY | 2024-04-24 21:08 | XMS_ITS | Encounter Summary ---
Author Organization [facility] [place] [address] Care Team Providers Care Cook'S Assistant Name Role Phone Arelis Michele MD Primary Care Provider [phone] Encounter Details Date Type Department Care Team (Late st Contact Info) Description 07/22/2017 10:15 AM EST Office [place] [address] Kandy Espana, RN [facility] [place] [address] Rheumatoid arthritis with positive rheumatoid factor, involving [...] this encounter Progress Notes * Kandy Espana, DIRECTOR BIOLOGY - 07/22/2017 10:15 AM EST Established Patient [...] monitoring; sicca symptoms. PLAN: ?? Rituxan at [facility] in 6 months. ?? Consider PULM [...] PM EDT Hospital Encounter Med Infusion at [facility] [place] [address] 05/14/2024 1:00 PM EDT Office Visit Dermatology at [facility] [address] [place] [address] 08/18/2024 10:00 AM EST Office [place] [address] Alice Carney APRN [facility] [place] [address] 08/18/2024 12:00 PM EST [place]oint[place] [address] 12/08/2024 12:00 PM EDT [place]oint[place] [address] documented as of this encounter Procedures Procedure [...] amyotrophy documented in this encounter Care Teams Cook'S Assistant Relationship Specialty Start Date End Date Arelis Michele MD [address] [place] [address] PCP - General 11/16/13 06/10/18 documented as of this encounter
--- OUTSIDE RECORDS SUMMARY | 2024-04-24 21:08 | XMS_ITS | Encounter Summary ---
Author Organization [facility] [place] [address] Care Team Providers Care Arcade Game Technician Name Role Phone ChristopherAndrew fournier Primary Care Provider Encounter Details Date Type Department Care Team (Late st Contact Info) Description 07/08/2018 Orders [place] [address] Steven Soliz MD [facility] [place] [address] SOB (shortness of breath) Social History Tobacco [...] PM EDT Hospital Encounter [place] [address] 05/14/2024 1:00 PM EDT Office Visit Dermatology at [facility] [address] [place] [address] 08/18/2024 10:00 AM EST Office [place] [address] Alice Carney APRN [facility] [place] [address] 08/18/2024 12:00 PM EST Appointment [place] [address] 12/08/2024 12:00 PM EDT Appointment [place] [address] documented as of this encounter Visit Diagnoses Diagnosis SOB (shortness of breath) Shortness of breath documented in this encounter Care Teams Arcade Game Technician Relationship Specialty Start Date End Date Andrew White DO [address] [place] [address] PCP - General Family Medicine 06/11/18 07/31/18 documented as of this encounter
--- OUTSIDE RECORDS SUMMARY | 2024-04-24 21:08 | XMS_ITS | Encounter Summary ---
Author Organization [facility] [place] [address] Care Team Providers Care Bread Baker Name Role Phone ChristopherAndrew fournier Primary Care Provider [phone] Encounter Details Date Type Department Care Team (Late st Contact Info) Description 07/08/2018 [place] [address] Bonnie Cary Social History Tobacco Use Types [...] PM EDT Hospital En[place] [address] 05/14/2024 1:00 PM EDT Office Visit Dermatology at [address] [place] [address] 08/18/2024 10:00 AM EST Office [place] [address] Alice Carney, PHARMACEUTICAL SALES SPECIALIST [facility] [place] [address] 08/18/2024 12:00 PM EST [place] [address] 12/08/2024 12:00 PM EDT [place]oint[place] [address] documented as of this encounter Visit Diagnoses Not on filedocumented in this encounter Care Teams Bread Baker Relationship Specialty Start Date End Date Andrew White DO [address] [place] [address] PCP - General Family Medicine 06/11/18 07/31/18 documented as of this encounter
--- OUTSIDE RECORDS SUMMARY | 2024-04-24 21:08 | XMS_ITS | Encounter Summary ---
Author Organization [facility] [place] [address] Care Team Providers Care Label Stitcher Name Role Phone Arelis Michele MD Primary Care Provider [phone] Encounter Details Date Type Department Care Team (Late st Contact Info) Description 06/19/2017 Telephone [place] [address] Guerline Taylor LPN Social History Tobacco Use [...] PM EDT Hospital Encounter [place] [address] 05/14/2024 1:00 PM EDT Office Visit Dermatology at [facility] [address] [place] [address] 08/18/2024 10:00 AM EST Office [place] [address] Alice Carney, [facility] [address] 08/18/2024 12:00 PM EST Appointment [place] [address] 12/08/2024 12:00 PM EDT Appointment [place] [address] documented as of this encounter Visit Diagnoses Not on filedocumented in this encounter Care Teams Label Stitcher Relationship Specialty Start Date End Date Arelis Michele MD [address] [place] [address] PCP - General 11/16/13 06/10/18 documented as of this encounter
--- OUTSIDE RECORDS SUMMARY | 2024-04-24 21:08 | XMS_ITS | Encounter Summary ---
Author Organization [facility] [place] [address] Care Team Providers Care Counselling Psychologist Name Role Phone Arelis Michele MD Primary Care Provider [phone] Encounter Details Date Type Department Care Team (Latest Contact Info) Description 08/13/2018 - 08/13/2018 11:59 PM EST Hospital Encounter [place] [address] BackerSteven MD [facility] [place] [address] Discharge Disposition: Home Social History Tobacco Use [...] PM EDT Hospital Encounter [place] [address] 05/14/2024 1:00 PM EDT Office Visit Dermatology at [address] [address] 08/18/2024 10:00 AM EST Office [place] [address] Alice Carney, [facility] [address] 08/18/2024 12:00 PM EST Appointment [place] [address] 12/08/2024 12:00 PM EDT Appointment [place] [address] documented as of this encounter Procedures Procedure Name Priority Date/Time Associated Diagnosis Comments FILM LIBRARY STORAGE ONLY DX CHEST Routine 08/13/2018 12:00 AM EST documented in this encounter Results * Film Library- Storage Only DX Chest (08/13/2018 12:00 AM EST) Narrative [facility] - 08/14/2018 9:21 AM EST This exam is for storage only and is auto-finalizing. Steven Soliz MD IMG FILM LIBRARY ORD ERABLES [facility] [place], [place] documented in this encounter Visit Diagnoses Not on filedocumented in this encounter Care Teams Counselling Psychologist Relationship Specialty Start Date End Date Arelis Michele MD [address] [place] [address] PCP - General Family Medicine 08/01/18 02/11/24 documented as of this encounter
--- OUTSIDE RECORDS SUMMARY | 2024-04-24 21:08 | XMS_ITS | Encounter Summary ---
Author Organization [facility] [place] [address] Care Team Providers Care Painter Helper Spray Name Role Phone Arelis Michele MD Primary Care Provider [phone] Encounter Details Date Type Department Care Team (Late st Contact Info) Description 10/31/2015 8:45 AM EST Office [place] [address] Kandy Espana, RN [facility] [place] [address] Rheumatoid arthritis with positive rheumatoid factor, involving [...] this encounter Progress Notes * Kandy Espana, HOT PLATE PRESS OPERATOR - 10/31/2015 8:48 AM EST Established Patient [...] scheduled follow up Neurology. ?? Rituxan at [facility] in 6 months. ?? Continue treatments [...] PM EDT Hospital [place] [address] 05/14/2024 1:00 PM EDT Office Visit Dermatology at [facility] [address] [place] [address] 08/18/2024 10:00 AM EST [place] [address] Knuuti, Alice E, HOT PLATE PRESS [facility] [place] [address] 08/18/2024 12:00 PM EST Appointment Med Infusion at [facility] [place] [address] 12/08/2024 12:00 PM EDT Appointment Med Infusion at [facility] [place] [address] documented as of this encounter Procedures [...] 10:07 AM EST) Neutrophil % 57.0 % [facility] Neutrophil Absolute 4.98 1.50 - 6.30 x10(3)/[facility] Lymph % 28.5 % [facility] Lymphocytes Abs 2.5 1.0 - 3.6 x10(3)/[facility] Monocyte % 9.3 % [facility] Monocyte Abs 0.8 0.2 - 1.0 x10(3)/[facility] Eos % 4.8 % [facility] Eosinophils Abs 0.4 0.0 - 0.5 x10(3)/[facility] Basophil % 0.2 % [facility] Baso Absolute 0.0 0.0 - 0.2 x10(3)/[facility] Immature Gran % 0.20 % [facility] Comment: Immature granulocytes(IG's)percentage and absolute count will include metamyelocytes, myelocytes, and promyelocytes. Blood smears from CBCs yielding IG's will be scanned manually for concordance. If this scan disagrees with the automated IG or if promyelocytes are noted, a manual differential will be performed. Immature Gran Absolute 0.02 0.00 - 0.05 x10(3)/[facility] Blood specimen (specimen) 10/31/2015 10:07 AM EST 10/31/2015 10:28 AM EST Narrative Resulting Agency Comment Spec In Lab Kalen De Anda MD HEMATOLOGY ORDERABLE S [facility] [place] [address] * (ABNORMAL) Hemogram (10/31/2015 10:07 AM EST) White Blood Cell 8.7 4.0 - 10.0 x10(3)/ L [facility] Red Blood [...] MD HEMATOLOGY ORDERABLE S Performing Organization Address [facility] Co de Phone Number [facility] [place] [address] * Hepatic Function Panel (10/31/2015 10:07 AM EST) [facility] Protein, Total 6.1 6.1 - 8.0 gm/dL [...] Gonzalez MD CHEMISTRY ORDERABLES Performing Organization Address [facility] Co de Phone Number [facility] [place] [address] * High Sensitivity CRP (10/31/2015 10:07 AM [...] MD CHEMISTRY ORDERABLES [facility] [place] [address] * Comprehensive metabolic panel (non-fasting) (10/31/2015 10:07 AM EST) Glucose 95 65 - 199 mg/dL [facility] Comment:Diabetes: >=200 mg/d L plus symptoms Blood Urea Nitrogen 13 10 - 20 mg/dL [facility] Creatinine 0.97 0.80 - 1.50 mg/dL [facility] Comment: Please note that the pediatric reference intervals supplied above were not validated at [facility]. Results from pediatric patients [...] LABORATORY Est Glomerular Filtration Rate >60 >=60 [facility] Comment: This estimated GFR (eGFR) [...] the following links into your internet browser. [email or web address] Blood specimen (specimen) 10/31/2015 10:07 AM EST 10/31/2015 10:28 AM EST Narrative Resulting Agency Comment Spec In Lab Kalen De Anda MD CHEMISTRY ORDERABLES [facility] [place] [address] documented in this encounter Visit Diagnoses Diagnosis Rheumatoid arthritis with positive rheumatoid factor, involving unspecified site [M05.70] High risk medication use Encounter for long-term (current) use of other medications Medication monitoring encounter Encounter for therapeutic drug monitoring Encounter for long-term current use of medication documented in this encounter Care Teams Painter Helper Spray Relationship Specialty Start Date End Date Arelis Michele MD [address] [place] [address] PCP - General 11/16/13 06/10/18 documented as of this encounter
--- OUTSIDE RECORDS SUMMARY | 2024-04-24 21:08 | XMS_ITS | Encounter Summary ---
Author Organization [facility] [place] [address] Care Team Providers Care Coffee Grower Name Role Phone Lee Michele MD Primary Care Provider [phone] Reason for Referral * Consultation (Routine) - Closed Specialty Diagnoses / Procedures Referred By Azam corbett Referred To Contact Radiology Diagnoses Cough Procedures XR Chest Routine PA & Lateral Kandy Espana, RN [facility] [place] [address] [place] [address] Referral ID Status Reason Start Date Expiration Date V isits Requested Visits Authorized [id number] Closed Specialty Service Requested 06/08/2015 06/07/2016 1 1 Reason for Visit * Reason Comments Follow-up Encounter Details Date Type Department Care Team (Late st Contact Info) Description 06/08/2015 11:00 AM EDT Office [place] [address] Kandy Espana, RN [facility] [address] Rheumatoid arthritis; High risk medication [...] update. Guillermina Espana Nurse Practitioner [facility] [address] [address] documented in this encounter Progress Notes * [...] 01/13/2015 at . Next infusion planned at [facility]. (4 month interval/single infusion). Reports hand stiffness, [...] ?? Ongoing contact/follow up LEE MICHELE MD (General) and Cardiology. Addendum: Recent [...] PM EDT Hospital Encounter [place] [address] 05/14/2024 1:00 PM EDT Office Visit Dermatology at [address] [address] 08/18/2024 10:00 AM EST Office [place] [address] Alice Carney APRN [facility] [place] [address] 08/18/2024 12:00 PM EST [place]ointment [place] [address] 12/08/2024 12:00 PM EDT [place]oint[place] [address] documented as of this encounter Results * [...] metabolic panel (non-fasting) (06/08/2015 11:45 AM EDT) [facility] Glucose 94 65 - 199 mg/dL CERNER MILLENNIUM Comment:Diabetes: >=200 mg/d L plus symptoms Blood Urea Nitrogen 7(L) 10 - 20 mg/dL CERNER MILLENNIUM Creatinine 0.85 0.80 - 1.50 mg/dL CERNER MILLENNIUM Comment: Please note that the pediatric reference intervals supplied above were not validated at [facility]. Results from pediatric patients should be interpreted [...] the following links into your internet browser. [email or web address] Blood specimen (specimen) 06/08/2015 11:45 AM EDT 06/08/2015 11:56 AM EDT Narrative Resulting Agency Comment Spec In Lab Doe Obrien MD CHEMISTRY ORDERAB LES Performing Organization Address City/[facility] Co de Phone Number [facility] [employer] * Sedimentation rate (06/08/2015 11:45 AM EDT) Sedimentation Rate Automated 9 0 - 15 mm/hr CERNER MILLENNIUM Blood specimen (specimen) 06/08/2015 11:45 AM EDT 06/08/2015 11:56 AM EDT Narrative Resulting Agency Comment Spec In Lab Doe Obrien MD HEMATOLOGY ORDERA BLES Performing Organization Address [facility] Co de Phone Number [facility] [employer] * High Sensitivity CRP (06/08/2015 11:45 AM EDT) C-Reactive Protein High Sensitivity 5.0 mg/L CARLOS DENNIS Comment: Interpretations: 1) For accurate cardiac risk [...] Obrien MD CHEMISTRY ORDERAB LES CARLOS DENNIS documented in this encounter Visit Diagnoses Diagnosis Rheumatoid arthritis High risk medication use Encounter for long-term (current) use of other medications Medication monitoring encounter Encounter for therapeutic drug monitoring Cough Cough documented in this encounter Care Teams Coffee Grower Relationship Specialty Start Date End Date Lee Michele MD [address] [place] [address] PCP - General 11/16/13 06/10/18 documented as of this encounter
--- OUTSIDE RECORDS SUMMARY | 2024-04-24 21:08 | XMS_ITS | Encounter Summary ---
Author Organization [facility] [place] [address] Care Team Providers Care Group Cio Name Role Phone Arelis Michele MD Primary Care Provider [phone] Reason for Visit * Reason Comments Referral * Consultation (Routine) - Closed Specialty Diagnoses / Procedures Referred By Contmabel t Referred To Contact Pulmonology Diagnoses SOB; Dyspnea Procedures needs f/u-has not been seen in a few years Uriah Sommers MD [address] [place] [id number] [facility]mon[facility] [address] [place] [id number] Referral ID Status Reason Start Date Expiration Date V isits Requested Visits Authorized [id number] Closed Consult, Test & Treat Connection [facility] 06/11/2018 06/11/2019 1 1 Encounter Details Date Type Department Care Team (Late st Contact Info) Description 08/01/2018 11:00 AM EST Office [place] [address] Steven Soliz MD [facility] [place] [address] SOB (shortness of breath); Chronic rhinitis; Diaphragm [...] NAME: Wesly Ybarra : 1950 MEDICAL RECORD: [id number] DATE OF SERVICE: 07/31/2018 REFERRING PHYSICIAN: Uriah Sommers MD PRIMARY CARE PHYSICIAN: Andrew White DO Reason for Consultation: SOB; Dyspnea Chief Complaint: I've been having worsening breathing over the last year History of Present Illness: Mr. Wesly Ybarra is a 67 y.o. man who is referred to Pulmonology for initial evaluation of SOB; Dyspnea. He is referred by Cardiology at [facility] who last evaluated him on 06/09/18. Per [...] which he is followed by Endocrinology at [facility] (last seen on 04/16/18). He is currently receiving Rituxan (has received either continuously or on/off since at [id number]) on a q16 weeks single infusion protocol at [facility]. His pulmonary examination at that appointment was [...] records. 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 Labs: None to review today PFTS: DATE FVC FEV1 FEV1/FVC DLCO TLC RV COMPUTER FORENSICS INVESTIGATOR? 06/16/13 70% 73% 77% 91% -- -- [...] has previously been evaluated by Pulmonology at [place] and [facility] and had a HRCT chest in 2014 [...] he is being managed closely by his Pipe Straightener. I also appreciate (per the patient) he was started on Coreg last year which preceeded the more abrupt worsening of his exercise tolerance. Therefore, some degree of chronotropic blunting with exercise should be considered and I would defer to his Pipe Straightener whether a time limited trial off Coreg [...] Will order a fluoroscopic diaphragm test at [facility] (if they perform those tests) ?? Recommend his Pipe Straightener determine if reasonable for time limited d/c [...] with me in 4-6 weeks Closest Hospital's: [facility] Steven Soliz MD, 08/01/2018, 1:14 PM Pulmonary & Critical Care Pager: [phone] documented in this encounter Plan of Treatment Upcoming Encounters Date Type Department Care Team (Late st Contact Info) Description 04/28/2024 12:00 PM EDT Hospital [place] [address] 05/14/2024 1:00 PM EDT Office Visit Dermatology at [facility] [address] [place] [address] 08/18/2024 10:00 AM EST Office [place] [address] Alice Carney, SPEEDER HAND [facility] [place] [address] 08/18/2024 12:00 PM EST [place] [address] 12/08/2024 12:00 PM EDT [place] [address] documented as of this encounter Procedures Procedure [...] of breath) Chronic rhinitis Cough variant asthma SOFI, WHITE IGE Routine 08/01/2018 12 :26 PM [...] of breath) Chronic rhinitis Cough variant asthma ROBBIE WHITE IGE Routine 08/01/2018 12:26 PM EST SOB (shortness of breath) Chronic rhinitis Cough variant asthma CBC (WITH DIFF) Routine 08/01/2018 12:26 PM EST SOB (shortness of breath) Chronic rhinitis Cough variant asthma documented in this encounter Results * (ABNORMAL) Differential, Automated (08/01/2018 12:26 PM EST) Neutrophil % 55.6 % [facility] Neutrophil Absolute 5.15 1.70 - 6.10 x10(3)/mc L [facility] Lymph % 28.5 % [facility] Lymphocytes Abs 2.6 0.9 - 3.2 x10(3)/mc L [facility] Monocyte % 10.4 % [facility] Monocyte Abs 1.0(H) 0.3 - 0.9 x10(3)/mc L [facility] Eos % 4.8 % [facility] Eosinophils Abs 0.4 0.0 - 0.4 x10(3)/mc L [facility] Basophil % 0.4 % [facility] Baso Absolute 0.0 0.0 - 0.1 x10(3)/ L [facility] Immature Gran % 0.30 % [facility] Comment: Immature granulocytes(IG's)percentage and absolute count will include metamyelocytes, myelocytes, and promyelocytes. Blood smears from CBCs yielding IG's will be scanned manually for concordance. If this scan disagrees with the automated IG or if promyelocytes are noted, a manual differential will be performed. Immature Gran Absolute 0.03 0.00 - 0.04 x10(3)/ L [facility] Blood specimen (specimen) 08/01/2018 12:26 PM EST 08/01/2018 12:33 PM EST Narrative Resulting Agency Comment Spec In Lab Steven Soliz MD HEMATOLOGY ORDERABLE S Performing Organization Address City/State/[facility] Co de Phone Number [facility] [place] [address] * (ABNORMAL) Hemogram (08/01/2018 12:26 PM EST) White Blood Cell 9.3 4.0 - 9.5 x10(3)/[facility] Red Blood Cell 5.23 4.58 - 5.54 x10(6)/ L [facility] Hemoglobin 15.2 13.7 - 16.5 gm/dL [facility] Hematocrit 46.0 40.5 - 48.5 % [facility] Mean Cell Volume 88.0 82.9 - 93.1 fL [facility] Mean Cell Hemoglobin 29.1 27.5 - 32.1 pg [facility] Mean Cell Hemoglobin Concentration 33.0 32.0 - 35.7 gm/dL [facility] Platelet 276 145 - 357 x10(3)/ L [facility] RDW Standard Deviation 45.2(H) 36.0 - 45.0 fL [facility] RDW coefficient of variation 14.0(H) 11.4 - 13.8 % [facility] Mean Platelet Volume 9.6 7.6 - 12.9 fL [facility] NRBC% auto 0.0 % [facility] NRBC Absolute 0.000 0.000 - 0.000 x10(3)/mc L [facility] Blood specimen (specimen) 08/01/2018 12:26 PM EST 08/01/2018 12:33 PM EST Narrative Resulting Agency Comment Spec In Lab Steven Soliz MD HEMATOLOGY ORDERABLE S Performing Organization Address City/[facility]/ZIP Co de Phone Number [facility] [place] [address] * Immunoglobulin E (IgE) (08/01/2018 12:26 PM EST) IgE, Total 36 <=101 kU/L [facility] Comment: Pediatric age-specific reference ranges are reflected in result ranges. Adult reference ranges: <25 kU/L ??Normal 25-100 kU/L Equivocal >100 kU/L ??Elevated Blood specimen (specimen) 08/01/2018 12:26 PM EST 08/01/2018 2:13 PM EST Narrative Resulting Agency Comment Spec In Lab Steven Soliz MD IMMUNOLOGY ORDERABLE S Performing Organization Address City/[facility]/ZIP Co de Phone Number [facility] [place] [address] * Anette Vaz IgE (08/01/2018 12:26 PM EST) Anette Vaz, IgE <0.35 kU/L [facility] Comment: Reference Ranges <0.35 [...] MD IMMUNOLOGY ORDERABLE S Performing Organization Address [facility] Co de Phone Number [facility] [place] [address] * Robbie, White IgE (08/01/2018 12:26 PM EST) White Robbie, IgE <0.35 kU/L [facility] Comment: Reference Ranges <0.35 kU/L [...] MD IMMUNOLOGY ORDERABLE S Performing Organization Address [facility] Co de Phone Number [facility] [place] [address] * Db Grass IgE (08/01/2018 12:26 PM EST) Db Grass, IgE <0.35 kU/L [facility] Comment: Reference Ranges <0.35 [...] Lab Steven Soliz MD IMMUNOLOGY ORDERABLE S [facility] [place] [address] * [place] IgE (08/01/2018 12:26 PM EST) Pathologist Obi Curiel, IgE <0.35 kU/L [facility] Comment: Reference Ranges <0.35 kU/L [...] MD IMMUNOLOGY ORDERABLE S Performing Organization Address City/[facility]/ZIP Co de Phone Number [facility] [place] [address] * Ragweed, short/ common IgE (08/01/2018 12:26 PM EST) Short Ragweed, IgE <0.35 kU/L [facility] Comment: Reference Ranges <0.35 [...] Resulting Agency Comment Spec In Lab Steven Soilz MD IMMUNOLOGY ORDERABLE S Performing Organization Address City/[facility]/ZIP Co de Phone Number [facility] [place] [address] * House Dust Mites/D.P., IgE (08/01/2018 12:26 PM EST) House Dust Mites/DP, IgE <0.35 kU/L [facility] Comment: Reference Ranges <0.35 kU/L [...] MD IMMUNOLOGY ORDERABLE S Performing Organization Address [facility]/ZIP Co de Phone Number [facility] [place] [address] * House Dust Mites/D.F., IgE (08/01/2018 12:26 PM EST) [facility] Signature Mites/D.F. IgE <0.35 kU/L [facility] Comment: Reference Ranges <0.35 kU/L [...] MD IMMUNOLOGY ORDERABLE S Performing Organization Address City/[facility]/ZIP Co de Phone Number [facility] [place] [address] * Elm IgE (08/01/2018 12:26 PM EST) Elm, IgE <0.35 kU/L [facility] Comment: Reference Ranges <0.35 kU/L [...] Lab Steven Soliz MD IMMUNOLOGY ORDERABLE S [facility] [place] [address] * Dog Epithelium IgE (08/01/2018 12:26 PM EST) Dog Epithel, IgE <0.35 kU/L [facility] Comment: Reference Ranges <0.35 [...] MD IMMUNOLOGY ORDERABLE S Performing Organization Address [facility] Co de Phone Number [facility] [place] [address] * Cat Epithelium IgE (08/01/2018 12:26 PM EST) Cat Epithel, IgE <0.35 kU/L [facility] Comment: Reference Ranges <0.35 [...] MD IMMUNOLOGY ORDERABLE S Performing Organization Address [facility] Co de Phone Number [facility] [place] [address] * moe Díaz IgE (08/01/2018 12:26 PM EST) Moe Arjun, IgE <0.35 kU/L [facility] Comment: Reference Ranges <0.35 [...] MD IMMUNOLOGY ORDERABLE S Performing Organization Address [facility] Co de Phone Number [facility] [place] [address] * Stacey / Garland Stanley IgE (08/01/2018 12:26 PM EST) Pathologist Obi Marrero, IgE <0.35 kU/L [facility] Comment: Reference Ranges <0.35 kU/L [...] MD IMMUNOLOGY ORDERABLE S Performing Organization Address City/[facility]/ZIP Co de Phone Number [facility] [place] [address] * Beech IgE (08/01/2018 12:26 PM EST) Beech, IgE <0.35 kU/L [facility] [...] Lab Steven Soliz MD IMMUNOLOGY ORDERABLE S [facility] [place] [address] * Aspergillus fumigatus IgE (08/01/2018 12:26 PM EST) Aspergillus Fumigatus, IgE <0.35 kU/L [facility] Comment: Reference Ranges <0.35 [...] MD IMMUNOLOGY ORDERABLE S Performing Organization Address City/[facility]/ZIP Co de Phone Number [facility] [place] [address] * Alternaria Tenuis, IgE (08/01/2018 12:26 PM EST) Alt Dimitrios IgE <0.35 kU/L [facility] Comment: Reference Ranges <0.35 kU/L [...] MD IMMUNOLOGY ORDERABLE S Performing Organization Address City/[facility]/ZIP Co de Phone Number [facility] [place] [address] documented in this encounter Visit Diagnoses Diagnosis SOB (shortness of breath) Shortness of breath Chronic rhinitis Diaphragm paralysis Disorders of diaphragm Cough variant asthma Cough variant asthma documented in this encounter Care Teams Group Cio Relationship Specialty Start Date End Date Arelis Michele MD [address] [place] [address] PCP - General Family Medicine 08/01/18 02/11/24 documented as of this encounter
--- OUTSIDE RECORDS SUMMARY | 2024-04-24 21:08 | XMS_ITS | Encounter Summary ---
Author Organization [facility] [place] [address] Care Team Providers Care Compound Filler Name Role Phone Arelis Michele MD Primary Care Provider [phone] Reason for Visit * Reason Comments Follow-up Encounter Details Date Type Department Care Team (Late st Contact Info) Description 09/05/2018 10:00 AM EST [place] [address] Steven Soliz MD [facility] [place] [address] Diaphragm paralysis; ZEPEDA (dyspnea on exertion) Social [...] oscopic sniff test which was performed at [facility] on 08/13 demonstrated marked decrease in activitysuggestive of paresis to the radiologist. We discussed confering with his Refrigeration Tech regarding a time limited trial off Coreg [...] not help his symptoms. He remains on [facility] this coming Saturday. 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 ([place], [place]) Occupational exposures: fumes, dusts, metals Objective: Most [...] DATE FVC FEV1 FEV1/FVC DLCO TLC RV BARREL INSPECTOR TIGHT? 06/16/13 70% 73% 77% 91% -- -- [...] (Images personally reviewed) 08/13/18 Fluoroscopic Diaphragm Study ([facility]): Marked decreased movement of the right hemidiaphragm [...] achievable in the future or not. Lastly, Diannelso recognize that those on beta-blockade can experience exertional intolerance and this would be one additional avenue to consider in regards to his Coreg. Recommendations: ?? Obtain CT chest dynamic airway protocol at ?? Obtain CT cervical spine w/ contrast at ?? Obtain modified barium swallow at [facility] ?? Empiric trial of Igor 100 mg QD (for diaphragm) ?? Repeat spirometry at his next appointment ?? Recommend trial of discontinuing Symbicort ?? Will re-discuss Thoracic Surgery referral for plication pending above results ?? If his Refrigeration Tech is agreeable, recommend time limited trial off beta-blockade ?? Note to be sent to Arelis Michele MD and Uriah Sommers MD ?? Follow-up with me in 12 weeks Closest hospital to home: [facility] (lives 1 hour 15 minutes from ) Steven Soliz MD, 09/05/2018, 1:22 PM Pulmonary & Critical Care Pager: [phone] documented in this encounter Plan of Treatment Upcoming Encounters Date Type Department Care Team (Late st Contact Info) Description 04/28/2024 12:00 PM EDT Hospital [place] [address] 05/14/2024 1:00 PM EDT Office Visit Dermatology at [facility] [address] [place] [address] 08/18/2024 10:00 AM EST [place] [address] Alice Carney, CUSTOMS PORT DIRECTOR [facility] [place] [address] 08/18/2024 12:00 PM EST [place] [address] 12/08/2024 12:00 PM EDT [place] [address] documented as of this encounter Procedures Procedure Name Priority Date/Time Associated Diagnosis Comments CREATININE Routine 09/05/2018 11:35 AM EST Diaphragm paralysis BUN Routine 09/05/2018 11:35 AM EST Diaphragm paralysis documented in this encounter Results * BUN (09/05/2018 11:35 AM EST) Blood Urea Nitrogen 17 10 - 20 mg/dL [facility] Blood specimen (specimen) 09/05/2018 11:35 AM EST 09/05/2018 11:40 AM EST Narrative Resulting Agency Comment Spec In Lab Steven Soliz MD CHEMISTRY ORDERABLES [facility] [place] [address] * Creatinine (09/05/2018 11:35 AM EST) Creatinine 1.11 0.80 - 1.50 mg/dL [facility] Est Glomerular Filtration Rate 67 >=60 mL/min/1.7 3 m?? [facility] Comment: The eGFR was calculated using the CKD-EPI equation. As with all creatinine based estimates of kidney function, eGFR values calculated with the CKD-EPI equation are not accurate in patients with acute kidney failure, extremes of body mass or the acutely ill. [email or web address] PAWHUSKAnkf eGFR 78 >=60 mL/min/1.7 3 m?? [facility] Comment: The eGFR was calculated using the CKD-EPI equation. As with all creatinine based estimates of kidney function, eGFR values calculated with the CKD-EPI equation are not accurate in patients with acute kidney failure, extremes of body mass or the acutely ill. [email or web address] PAWHUSKAnkf Blood specimen (specimen) 09/05/2018 11:35 AM EST 09/05/2018 11:40 AM EST Narrative Resulting Agency Comment Spec In Lab Steven Soliz MD CHEMISTRY ORDERABLES [facility] [place] [address] documented in this encounter Visit Diagnoses Diagnosis Diaphragm paralysis Disorders of diaphragm ZEPEDA (dyspnea on exertion) Other dyspnea and respiratory abnormality documented in this encounter Care Teams Compound Filler Relationship Specialty Start Date End Date Arelis Michele MD [address] [place] [address] PCP - General Family Medicine 08/01/18 02/11/24 documented as of this encounter
--- OUTSIDE RECORDS SUMMARY | 2024-04-24 21:08 | XMS_ITS | Encounter Summary ---
Author Organization [facility], Located Within [facility] [place] [address] Care Team Providers Care Clinical Resource Nurse Name Role Phone Arelis Michele MD Primary Care Provider [phone] Reason for Visit * Reason Comments IV Medication * High Dollar Medication (Routine) - Specialty Diagnoses / Procedures Referred By Azam corbett Referred To Contact Med Infusion Diagnoses Rheumatoid arthritis with positive rheumatoid factor, involving unspecified site Kandy Espana, RN [facility] [place] [address] [facility] Med Infusion [address] [place] [phone] Referral ID Status Reason Start Date Expiration Date V isits Requested Visits Authorized [id number] Consult, Test & Treat 10/07/2015 10/06/2016 3 3 Encounter Details Date Type Department Care Team (Latest Contact Info) Description 02/28/2016 8:45 AM EDT - 02/28/2016 11:59 PM EDT Hospital [place] [address] Rheumatoid arthritis with positive rheumatoid [...] actual dose given at bedside by Petra Abebe, ASHLEY TREATMENT Rituxan 1000 mg IV Administration times: See NOV 01 dosing schedule used. REACTIONS None. ASSESSMENT: Tolerated infusion well. PLAN: Return to clinic 06/26/2016. documented in this encounter Plan of Treatment Upcoming Encounters Date Type Department Care Team (Late st Contact Info) Description 04/28/2024 12:00 PM EDT Hospital [place] [address] 05/14/2024 1:00 PM EDT Office Visit Dermatology at [address] [address] 08/18/2024 10:00 AM EST [place] [address] Alice Carney, [facility] [place] [address] 08/18/2024 12:00 PM [place] [address] 12/08/2024 12:00 PM EDT [place] [address] documented as of this encounter Visit Diagnoses [...] mg documented in this encounter Care Teams Clinical Resource Nurse Relationship Specialty Start Date End Date Arelis Michele MD [address] [place] [address] PCP - General 11/16/13 06/10/18 documented as of this encounter
--- OUTSIDE RECORDS SUMMARY | 2024-04-24 21:08 | XMS_ITS | Encounter Summary ---
Author Organization [facility] [place] [address] Care Team Providers Care Er Registrar Name Role Phone Arelis Michele MD Primary Care Provider [phone] Encounter Details Date Type Department Care Team (Late st Contact Info) Description 04/20/2016 Tele[place] [address] Shanelle Xie Social History Tobacco Use Types [...] PM EDT Hospital En[place] [address] 05/14/2024 1:00 PM EDT Office Visit Dermatology at [facility] [address] [place] [address] 08/18/2024 10:00 AM EST Office [place] [address] Alice Carney CLINICAL RESEARCH COORDINATOR [facility] [place] [address] 08/18/2024 12:00 PM EST [place] [address] 12/08/2024 12:00 PM EDT [place]oint[place] [address] documented as of this encounter Visit Diagnoses Not on filedocumented in this encounter Care Teams Er Registrar Relationship Specialty Start Date End Date Arelis Michele MD [address] [place] [address] PCP - General 11/16/13 06/10/18 documented as of this encounter
--- OUTSIDE RECORDS SUMMARY | 2024-04-24 21:08 | XMS_ITS | Encounter Summary ---
Author Organization [facility] [place] [address] Care Team Providers Care Security Representative Name Role Phone Arelis Michele MD Primary Care Provider [phone] Reason for Visit * Reason Comments IV Medication * High Dollar Medication (Routine) - Specialty Diagnoses / Procedures Referred By Azam corbett Referred To Contact Med Infusion Diagnoses Rheumatoid arthritis with positive rheumatoid factor, involving unspecified site Kandy Espana, RN [facility] [place] [address] [facility] Med Infusion [address] [place] [phone] Referral ID Status Reason Start Date Expiration Date V isits Requested Visits Authorized [id number] Consult, Test & Treat 10/07/2015 10/06/2016 3 3 Encounter Details Date Type Department Care Team (Latest Contact Info) Description 10/31/2015 10:13 AM EST - 10/31/2015 11:59 PM EST Hospital [place] [address] Rheumatoid arthritis with positive rheumatoid [...] PM EDT Hospital [place] [address] 05/14/2024 1:00 PM EDT Office Visit Dermatology at [address] [address] 08/18/2024 10:00 AM EST [place] [address] Alice Carney, [facility] [place] [address] 08/18/2024 12:00 PM EST [place] [address] 12/08/2024 12:00 PM EDT [place] [address] documented as of this encounter Visit Diagnoses Diagnosis Rheumatoid arthritis with positive rheumatoid factor, involving unspecified site [M05.70] documented in this encounter Administered Medications Inactive Administered Medications - up to 3 most recent administrations Medication Order MAR Action Action Date Dose Rate Site diphenhydrAMINE (BENADRYL) injection 25 mg 25 mg, Intravenous, ONCE, 1 dose, On 10/31/15 at 1045, FIRST INFUSION Upon arrival prior [...] mg documented in this encounter Care Teams Security Representative Relationship Specialty Start Date End Date Arelis Michele MD [address] [place] [address] PCP - General 11/16/13 06/10/18 documented as of this encounter
--- OUTSIDE RECORDS SUMMARY | 2024-04-24 21:08 | XMS_ITS | Encounter Summary ---
Author Organization [facility] [place] [address] Care Team Providers Care Living Nurse Name Role Phone Arelis Michele MD Primary Care Provider [phone] Reason for Referral * High Dollar Medication (Routine) - Specialty Diagnoses / Procedures Referred By Contmabel t Referred To Contact Med Infusion Diagnoses Rheumatoid arthritis with positive rheumatoid factor, involving unspecified site Kandy Espana, ASHLEY [facility] [place] [address] [facility] Med Infusion [address] [place] [phone] Referral ID Status Reason Start Date Expiration Date V isits Requested Visits Authorized [id number] Consult, Test & Treat 10/07/2015 10/06/2016 3 3 Encounter Details Date Type Department Care Team (Late st Contact Info) Description 10/07/2015 Orders [place] [address] Kandy Espana, RN [facility] [place] [address] Rheumatoid arthritis with positive rheumatoid [...] EDT Hospital Encounter [place] [address] 05/14/2024 1:00 PM EDT Office Visit Dermatology at [facility] [address] [place] [address] 08/18/2024 10:00 AM EST Office [place] [address] Alice Carney APRN [facility] [place] [address] 08/18/2024 12:00 PM EST Appointment [place] [address] 12/08/2024 12:00 PM EDT Appointment [place] [address] Scheduled Referrals Name Type Priority Associated Diagnoses Orde r Schedule Auth Request for Infusion Medication Outpatient Referral Routine Rheumatoid arthritis with positive rheumatoid factor, involving unspecified site [M05.70] Ordered: 10/07/2015 documented as of this encounter Visit Diagnoses Diagnosis Rheumatoid arthritis with positive rheumatoid factor, involving unspecified site [M05.70] documented in this encounter Care Teams Living Nurse Relationship Specialty Start Date End Date Arelis Michele MD [address] [place] [address] PCP - General 11/16/13 06/10/18 documented as of this encounter
--- OUTSIDE RECORDS SUMMARY | 2024-04-24 21:08 | XMS_ITS | Encounter Summary ---
Author Organization [facility] [place] [address] Care Team Providers Care Valver Name Role Phone Arelis Michele MD Primary Care Provider [phone] Encounter Details Date Type Department Care Team (Late st Contact Info) Description 04/16/2018 10:15 AM EDT [place] [address] Kandy Espana, RN [facility] [place] [address] Rheumatoid arthritis with positive rheumatoid factor, involving [...] encounter Progress Notes * Kandy Espana Joselin, BILINGUAL KINDERGARTEN TEACHER - 04/16/2018 10:15 AM EDT Established Patient Follow Up - Rheumatology Clinic Wesly Ybarra is a 67 y.o.male seen for ongoing evaluation and management of rheumatoid arthritis. He is accompanied by a lead driver. Last seen 07/2017. INTERVAL HISTORY: Received [...] yesterday. Career and had been home to [place] a couple weeks ago for his Mom's 90th birthday. Continues treatment for dry mouth and dry eyes. Continues to HOLD methotrexate. When last seen reported Most concerning is fatigue. 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 [facility] (-) limitations in self-care, [...] depression, situational stress. PLAN: ?? Rituxan at [facility] at 16 weeks interval from prior. ?? [...] PM EDT Hospital [place] [address] 05/14/2024 1:00 PM EDT Office Visit Dermatology at [facility] [address] [place] [address] 08/18/2024 10:00 AM EST [place] [address] Alice Carney APRN [facility] [place] [address] 08/18/2024 12:00 PM EST [place] [address] 12/08/2024 12:00 PM EDT [place] [address] documented as of this encounter Visit Diagnoses Diagnosis Rheumatoid arthritis with positive rheumatoid factor, involving unspecified site Medication monitoring encounter Encounter for therapeutic drug monitoring High risk medication use Encounter for long-term (current) use of other medications documented in this encounter Care Teams Valver Relationship Specialty Start Date End Date Arelis Michele MD [address] [place] [address] PCP - General 11/16/13 06/10/18 documented as of this encounter
--- OUTSIDE RECORDS SUMMARY | 2024-04-24 21:08 | XMS_ITS | Encounter Summary ---
[place] [address] Care Team Providers Care Aligner Typewriter Name Role Phone Arelis Michele MD Primary Care Provider [phone] Reason for Referral * Consultation (Routine) - Closed Specialty Diagnoses / Procedures Referred By Contac t Referred To Contact Radiology Diagnoses Cough Procedures XR Chest Routine PA & Lateral Kandy Espana, ASHLEY [facility] DR [place] [address] [place] [address] Referral ID Status Reason Start Date Expiration Date V isits Requested Visits Authorized [id number] Closed Specialty Service Requested 06/08/2015 06/07/2016 1 1 Reason for Visit * Consultation (Routine) - Closed Specialty Diagnoses / Procedures Referred By Contac t Referred To Contact Radiology Diagnoses Cough Procedures XR Chest Routine PA & Lateral Kandy Espana RN [facility] DR [place] [address] [place] [address] Referral ID Status Reason Start Date Expiration Date V isits Requested Visits Authorized [id number] Closed Specialty Service Requested 06/08/2015 06/07/2016 1 1 Encounter Details Date Type Department Care Team (Late st Contact Info) Description 06/08/2015 11:59 AM EDT - 06/08/2015 11:59 PM EDT Hospital Encounter XRay at [address] [place] [address] Doe Obrien MD [facility] [place] [address] Cough Discharge Disposition: Home Social History Tobacco [...] PM EDT Hospital Encounter [place] [address] 05/14/2024 1:00 PM EDT Office Visit Dermatology at [address] [address] 08/18/2024 10:00 AM EST Office [place] [address] Alice Carney, [facility] [place] [address] 08/18/2024 12:00 PM EST Appointment [place] [address] 12/08/2024 12:00 PM EDT Appoint[place] [address] documented as of this encounter Procedures Procedure [...] Cough documented in this encounter Care Teams Aligner Typewriter Relationship Specialty Start Date End Date Arelis Michele MD [address] [place] [address] PCP - General 11/16/13 06/10/18 documented as of this encounter
--- OUTSIDE RECORDS SUMMARY | 2024-04-24 21:08 | XMS_ITS | Encounter Summary ---
[place] [address] Care Team Providers Care Electrical Lineworker Name Role Phone Arelis Michele MD Primary Care Provider [phone] Reason for Visit * Reason Onset Date Comments Other 06/08/2015 MAP-med assistan ce for pt seeing non- provider Encounter Details Date Type Department Care Team (Late st Contact Info) Description 06/08/2015 Telephone [place] [address] Kassandra Lima (MAP-med assistance for pt seeing [...] for the [place] [employer] for [facility] and encouraged him to call them to [...] PM EDT Hospital En[place] [address] 05/14/2024 1:00 PM EDT Office Visit Dermatology at [address] [address] 08/18/2024 10:00 AM EST [place] [address] Alice Carney STOCK ORDER LISTER [facility] [place] [address] 08/18/2024 12:00 PM EST [place] [address] 12/08/2024 12:00 PM EDT [place] [address] documented as of this encounter Visit Diagnoses Not on filedocumented in this encounter Care Teams Electrical Lineworker Relationship Specialty Start Date End Date Arelis Michele MD [address] [place] [address] PCP - General 11/16/13 06/10/18 documented as of this encounter
--- OUTSIDE RECORDS SUMMARY | 2024-04-24 21:08 | XMS_ITS | Encounter Summary ---
[place] [address] Care Team Providers Care Jacquard Twine Polisher Operator Name Role Phone Arelis Michele MD Primary Care Provider [phone] Reason for Visit * Reason Onset Date Comments Other 04/21/2018 Encounter Details Date Type Department Care Team (Late Contact Info) Description 04/21/2018 Telephone [place] [address] Lionel Rabago, RN Other Social History Tobacco [...] - 04/21/2018 10:18 AM EDT Billie from [facility] calls, requests new orders for Rituxan infusion, expires 05/16. documented in this encounter Plan of Treatment Upcoming Encounters Date Type Department Care Team (Late Contact Info) Description 04/28/2024 12:00 PM EDT Hospital Encounter [place] [address] 05/14/2024 1:00 PM EDT Office Visit Dermatology at [facility] [address] [place] [address] 08/18/2024 10:00 AM EST Office [place] [address] Alice Carney, MANAGER UTILIZATION [facility] [address] 08/18/2024 12:00 PM EST Appointment [place] [address] 12/08/2024 12:00 PM EDT Appointment [place] [address] documented as of this encounter Visit Diagnoses Not on filedocumented in this encounter Care Teams Jacquard Twine Polisher Operator Relationship Specialty Start Date End Date Arelis Michele MD [address] [place] [address] PCP - General 11/16/13 06/10/18 documented as of this encounter
--- OUTSIDE RECORDS SUMMARY | 2024-04-24 21:08 | XMS_ITS | Encounter Summary ---
Author Organization [facility] [place] [address] Care Team Providers Care Toll Bridge Operator Name Role Phone Arelis Michele MD Primary Care Provider [phone] Encounter Details Date Type Department Care Team (Late st Contact Info) Description 02/07/2016 9:00 AM EDT Procedure [place] [address] George Ayoub MD [facility] [place] [address] Roz Orozco MD [facility] [place] [address] Brachial neuritis Social History Tobacco Use Types [...] 10:00 AM EDT NEUROLOGY CLINIC [facility] [place] [address] Facsimile: 02/07/2016 Neuromuscular Consultation Patient name: Wesly Ybarra Date of : 1950 Referring provider: Foster Dumas PA EMERGENCY DEPT [address] [place] [address] [place] [address] Wesly Ybarra is a 65 y.o. y.o. [...] his shoulder. [facility] sort, [...] to this effect. 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 ROS: A 14-point [...] PM EDT Hospital En[place] [address] 05/14/2024 1:00 PM EDT Office Visit Dermatology at [address] [address] 08/18/2024 10:00 AM EST Office [place] [address] Alice Carney, [facility] [place] [address] 08/18/2024 12:00 PM EST Appointment [place] [address] 12/08/2024 12:00 PM EDT [place]oint[place] [address] documented as of this encounter Visit Diagnoses Diagnosis Brachial neuritis Brachial neuritis or radiculitis nos documented in this encounter Care Teams Toll Bridge Operator Relationship Specialty Start Date End Date Arelis Michele MD [address] [place] [address] PCP - General 11/16/13 06/10/18 documented as of this encounter
--- OUTSIDE RECORDS SUMMARY | 2024-04-24 21:08 | XMS_ITS | Encounter Summary ---
Author Organization [facility] [place] [address] Care Team Providers Care Radiologist Physician Name Role Phone Arelis Michele MD Primary Care Provider [phone] Encounter Details Date Type Department Care Team (Latest Contact Info) Description 06/08/2015 12:15 PM EDT [place] [address] Rheumatoid arthritis; High risk medication use; Medication [...] PM EDT Hospital En[place] [address] 05/14/2024 1:00 PM EDT Office Visit Dermatology at [place] [address] [place] [address] 08/18/2024 10:00 AM EST Office [place] [address] Alice Carney, STEVEDORING SUPERINTENDENT [facility] [place] [address] 08/18/2024 12:00 PM EST [place]ointment [place] [address] 12/08/2024 12:00 PM EDT [place] [address] documented as of this encounter Procedures Procedure [...] MD HEMATOLOGY ORDERA BLES CERNER MILLENNIUM * (ABNORMAL) Hemogram (06/08/2015 11:45 AM EDT) White Blood Cell 7.2 4.0 - 10.0 [...] In Lab Doe Obrien MD HEMATOLOGY ORDERA JEANINE CERNER MILLENNIUM * (ABNORMAL) Comprehensive metabolic panel (non-fasting) (06/08/2015 11:45 AM EDT) Glucose 94 65 - 199 mg/dL CERNER MILLENNIUM Comment:Diabetes: >=200 mg/d L plus symptoms Blood Urea Nitrogen 7(L) 10 - 20 mg/dL CERNER MILLENNIUM Creatinine 0.85 0.80 - 1.50 mg/dL CERNER MILLENNIUM Comment: Please note that the pediatric reference intervals supplied above were not validated at [facility]. Results from pediatric patients should [...] the following links into your internet browser. [email or web address] Blood specimen (specimen) 06/08/2015 11:45 AM EDT 06/08/2015 11:56 AM EDT Narrative Resulting Agency Comment Spec In Lab Doe Obrien MD CHEMISTRY ORDERAB LES Performing Organization Address [facility] de Phone Number [facility] * Sedimentation rate (06/08/2015 11:45 AM EDT) Sedimentation Rate Automated 9 0 - 15 mm/hr [facility] Blood specimen (specimen) 06/08/2015 11:45 AM EDT 06/08/2015 11:56 AM EDT Narrative Resulting Agency Comment Spec In Lab Doe Obrien MD HEMATOLOGY ORDERA BLES Performing Organization Address [facility] de Phone Number [facility] * High Sensitivity CRP (06/08/2015 11:45 AM EDT) C-Reactive Protein High Sensitivity 5.0 mg/L [facility] Comment: Interpretations: 1) For accurate [...] the test package insert) References: 1. Aurelia TA et. al. ??AHA/CDC Scientific Statement: Markers of Inflammation and Cardiovascular Disease. ??Circulation 2003; 107:499-511 2. Dottie PM. ??Clinical applications of C-reactive protein for cardiovascular disease detection and prevention. ??Circulation 2003; 107:363-369 Blood specimen (specimen) 06/08/2015 11:45 AM EDT 06/08/2015 11:56 AM EDT Narrative Resulting Agency Comment Spec In Lab Doe Obrien MD CHEMISTRY ORDERAB LES [facility] documented in this encounter Visit Diagnoses Diagnosis Rheumatoid arthritis High risk medication use Encounter for long-term (current) use of other medications Medication monitoring encounter Encounter for therapeutic drug monitoring Cough documented in this encounter Care Teams Radiologist Physician Relationship Specialty Start Date End Date Arelis Michele MD [address] [place] [address] PCP - General 11/16/13 06/10/18 documented as of this encounter
--- OUTSIDE RECORDS SUMMARY | 2024-04-24 21:08 | XMS_ITS | Encounter Summary ---
Author Organization [facility] [place] [address] Care Team Providers Care Damper Maker Name Role Phone Arelis Michele MD Primary Care Provider [phone] Encounter Details Date Type Department Care Team (Late st Contact Info) Description 06/20/2016 Orders [place] [address] Kandy Espana, RN [facility] DR RHEUMATOLOGY [place] [address] Social History Tobacco Use Types Packs/Day Years [...] PM EDT Hospital [place] [address] 05/14/2024 1:00 PM EDT Office Visit Dermatology at [facility] [address] [place] [address] 08/18/2024 10:00 AM EST [place] [address] Alice Carney, ESCAPEMENT MATCHER [facility] [place] [address] 08/18/2024 12:00 PM EST [place] [address] 12/08/2024 12:00 PM EDT [place] [address] documented as of this encounter Visit Diagnoses Not on filedocumented in this encounter Care Teams Damper Maker Relationship Specialty Start Date End Date Arelis Michele MD [address] [place] [address] PCP - General 11/16/13 06/10/18 documented as of this encounter
--- OUTSIDE RECORDS SUMMARY | 2024-04-24 21:08 | XMS_ITS | Encounter Summary ---
Author Organization [facility] [place] [address] Care Team Providers Care Air Conditioning Equipment Mechanic Name Role Phone Arelis Michele MD Primary Care Provider [phone] Reason for Referral * High Dollar Medication (Routine) - Closed Specialty Diagnoses / Procedures Referred By Contac t Referred To Contact Med Infusion Diagnoses Rheumatoid arthritis with positive rheumatoid factor, involving unspecified site Kandy Espana, RN [facility] [place] [address] [facility] Med Infusion [address] [place] [phone] Referral ID Status Reason Start Date Expiration Date V isits Requested Visits Authorized [id number] Closed Consult, Test & Treat 02/20/2016 02/19/2017 1 1 Encounter Details Date Type Department Care Team (Late st Contact Info) Description 02/20/2016 Orders Only [place] [address] Kandy Espana, RN [facility] [place] [address] Rheumatoid arthritis with positive rheumatoid [...] EDT Hospital Encounter [place] [address] 05/14/2024 1:00 PM EDT Office Visit Dermatology at [facility] [address] [place] [address] 08/18/2024 10:00 AM EST Office Visit [place] [address] Alice Carney, HEEL SEAT FILLER [facility] [place] [address] 08/18/2024 12:00 PM EST Appointment [place] [address] 12/08/2024 12:00 PM EDT Appointment [place] [address] Scheduled Referrals Name Type Priority Associated Diagnoses Orde r Schedule Auth Request for Infusion Medication Outpatient Referral Routine Rheumatoid arthritis with positive rheumatoid factor, involving unspecified site Ordered: 02/20/2016 documented as of this encounter Visit Diagnoses Diagnosis Rheumatoid arthritis with positive rheumatoid factor, involving unspecified site documented in this encounter Care Teams Air Conditioning Equipment Mechanic Relationship Specialty Start Date End Date Arelis Michele MD [address] [place] [address] PCP - General 11/16/13 06/10/18 documented as of this encounter
--- OUTSIDE RECORDS SUMMARY | 2024-04-24 21:08 | XMS_ITS | Encounter Summary ---
Author Organization [facility] [place] [address] Care Team Providers Care Emergency Generator Mechanic Name Role Phone Arelis Michele MD Primary Care Provider [phone] Encounter Details Date Type Department Care Team (Late st Contact Info) Description 01/07/2018 1:00 PM EDT Office [place] [address] Kandy Espana, RN [facility] [place] [address] Rheumatoid arthritis with positive rheumatoid factor, involving [...] this encounter Progress Notes * Kandy Espana, TELEPHONE ASSEMBLER - 01/07/2018 1:00 PM EDT Established Patient Follow Up - Rheumatology Clinic Wesly Ybarra is a 67 y.o.male seen for ongoing evaluation and management of rheumatoid arthritis. He is accompanied by a trash truck driver. Last seen 07/2017. INTERVAL HISTORY: [...] depression, situational stress. PLAN: ?? Rituxan at [facility] in 6 months. ?? Continue [...] PM EDT Hospital En[place] [address] 05/14/2024 1:00 PM EDT Office Visit Dermatology at [place] [address] [place] [address] 08/18/2024 10:00 AM EST Office [place] [address] Alice Carney APRN [facility] [place] [address] 08/18/2024 12:00 PM EST [place] [address] 12/08/2024 12:00 PM EDT [place]oint[place] [address] documented as of this encounter Visit Diagnoses Diagnosis Rheumatoid arthritis with positive rheumatoid factor, involving unspecified site Medication monitoring encounter Encounter for therapeutic drug monitoring High risk medication use Encounter for long-term (current) use of other medications Situational stress Other psychological or physical stress, not elsewhere classified History of depression Personal history of other mental disorder documented in this encounter Care Teams Emergency Generator Mechanic Relationship Specialty Start Date End Date Arelis Michele MD [address] [place] [address] PCP - General 11/16/13 06/10/18 documented as of this encounter
--- OUTSIDE RECORDS SUMMARY | 2024-04-24 21:08 | XMS_ITS | Encounter Summary ---
Author Organization [facility] [place] [address] Care Team Providers Care Jack Spooler Tender Name Role Phone Arelis Michele MD Primary Care Provider [phone] Encounter Details Date Type Department Care Team (Late st Contact Info) Description 08/23/2015 9:45 AM EST Office [place] [address] Kandy Espana, RN [facility] [place] [address] Rheumatoid arthritis; High risk medication use; Medication [...] this encounter Progress Notes * Kandy Espana, FORENSICS ANALYST - 08/23/2015 9:46 AM EST Established Patient [...] PM EDT Hospital Encounter [place] [address] 05/14/2024 1:00 PM EDT Office Visit Dermatology at [address] [address] 08/18/2024 10:00 AM EST Office [place] [address] Alice Carney APRN [facility] [place] [address] 08/18/2024 12:00 PM EST Appointment [place] [address] 12/08/2024 12:00 PM EDT Appointment [place] [address] documented as of this encounter Visit Diagnoses Diagnosis Rheumatoid arthritis High risk medication use Encounter for long-term (current) use of other medications Medication monitoring encounter Encounter for therapeutic drug monitoring documented in this encounter Care Teams Jack Spooler Tender Relationship Specialty Start Date End Date Arelis Michele MD [address] [place] [address] PCP - General 11/16/13 06/10/18 documented as of this encounter
--- OUTSIDE RECORDS SUMMARY | 2024-04-24 21:08 | XMS_ITS | Encounter Summary ---
Author Organization [facility] [place] [address] Care Team Providers Care Roof Panel Hanger Name Role Phone Arelis Michele MD Primary Care Provider [phone] Encounter Details Date Type Department Care Team (Late st Contact Info) Description 02/28/2016 2:15 PM EDT Office [place] [address] Kandy Espana, RN [facility] [place] [address] Rheumatoid arthritis with positive rheumatoid factor, involving [...] this encounter Progress Notes * Kandy Espana, PSYCHOLOGIST RESEARCH ASSISTANT - 02/28/2016 7:33 AM EDT Established Patient [...] Still hopeful to receive Rituxan at [facility], convenience for t/family. Reports greatest concern is [...] When last seen, reported Neurology consult ([facility]) completed 10/2015. Diagnostics completed and follow up [...] Rituxan today. ?? Future Rituxan at [facility] -> pending approval by [facility] staff/co-sig. ?? Rituxan at [facility] in 6 months. ?? Will follow up [...] PM EDT Hospital En[place] [address] 05/14/2024 1:00 PM EDT Office Visit Dermatology at [place] [address] [place] [address] 08/18/2024 10:00 AM EST Office [place] [address] Alice Carney APRN [facility] [place] [address] 08/18/2024 12:00 PM EST [place] [address] 12/08/2024 12:00 PM EDT [place]oint[place] [address] documented as of this encounter Visit Diagnoses Diagnosis Rheumatoid arthritis with positive rheumatoid factor, involving unspecified site High risk medication use Encounter for long-term (current) use of other medications Medication monitoring encounter Encounter for therapeutic drug monitoring documented in this encounter Care Teams Roof Panel Hanger Relationship Specialty Start Date End Date Arelis Michele MD [address] [place] [address] PCP - General 11/16/13 06/10/18 documented as of this encounter
--- OUTSIDE RECORDS SUMMARY | 2024-04-24 21:08 | XMS_ITS | Encounter Summary ---
Author Organization [facility] [place] [address] Care Team Providers Care Inventory Control Specialist Name Role Phone ChristopherAndrew fournier Primary Care Provider Encounter Details Date Type Department Care Team (Late st Contact Info) Description 07/31/2018 Orders [place] [address] Steven Soliz MD [facility] [place] [address] SOB (shortness of breath) Social History Tobacco [...] PM EDT Hospital Encounter [place] [address] 05/14/2024 1:00 PM EDT Office Visit Dermatology at [facility] [address] [place] [address] 08/18/2024 10:00 AM EST Office [place] [address] Alice Carney APRN [facility] [place] [address] 08/18/2024 12:00 PM EST Appointment Med Infusion at [facility] [place] [address] 12/08/2024 12:00 PM EDT Appointment Med Infusion [place] [facility] [place] [address] documented as of this encounter Results * [...] breath documented in this encounter Care Teams Inventory Control Specialist Relationship Specialty Start Date End Date Andrew White DO [address] [place] [address] PCP - General Family Medicine 06/11/18 07/31/18 documented as of this encounter
--- OUTSIDE RECORDS SUMMARY | 2024-04-24 21:08 | XMS_ITS | Encounter Summary ---
[place] [address] Care Team Providers Care Jewelry Inspector Name Role Phone ChristopherAndrew carmona Primary Care Provider Encounter Details Date Type Department Care Team (Late st Contact Info) Description 06/16/2018 Telephone [place] [address] Lionel Rabago RN Social History Tobacco Use [...] RN - 06/19/2018 8:14 AM EDT Per DIETARY ASSISTANT Jovi, hold rituxan infusion until pulm consult [...] PM EDT Hospital Encounter [place] [address] 05/14/2024 1:00 PM EDT Office Visit Dermatology at [address] [address] 08/18/2024 10:00 AM EST Office [place] [address] Alice Carney, [facility] [place] [address] 08/18/2024 12:00 PM EST Appointment [place] [address] 12/08/2024 12:00 PM EDT Appointment [place] [address] documented as of this encounter Visit Diagnoses Not on filedocumented in this encounter Care Teams Jewelry Inspector Relationship Specialty Start Date End Date Andrew White DO [address] [place] [address] PCP - General Family Medicine 06/11/18 07/31/18 documented as of this encounter
--- OUTSIDE RECORDS SUMMARY | 2024-04-24 21:08 | XMS_ITS | Encounter Summary ---
[place] [address] Care Team Providers Care Beef Selector Name Role Phone Arelis Michele MD Primary Care Provider [phone] Encounter Details Date Type Department Care Team (Late st Contact Info) Description 10/03/2015 - 10/03/2015 11:59 PM EST Hospital Encounter [place] [address] Dr Neha Temporary Pain Discharge Disposition: Home [...] PM EDT Hospital En[place] [address] 05/14/2024 1:00 PM EDT [facility] [address] [place] [address] 08/18/2024 10:00 AM EST Office [place] [address] Alice Carney, [facility] [place] [address] 08/18/2024 12:00 PM EST [place] [address] 12/08/2024 12:00 PM EDT [place] [address] documented as of this encounter Procedures Procedure Name Priority Date/Time Associated Diagnosis Comments FILM LIBRARY STORAGE ONLY MR HEAD AND SPINE Routine 10/03/2015 12:00 AM EST Pain documented in this encounter Results * Film Library- Storage only MR Head and Spine (10/03/2015 12:00 AM EST) Narrative [facility] - 02/08/2016 2:09 PM EDT This exam is for storage only and is auto-finalizing. Dr Sanchez [facility] FILM LIBRARY ORD ERABLES [place], [place] documented in this encounter Visit Diagnoses Diagnosis Pain Generalized pain documented in this encounter Care Teams Beef Selector Relationship Specialty Start Date End Date Arelis Michele MD [address] [place] [address] PCP - General 11/16/13 06/10/18 documented as of this encounter
--- OUTSIDE RECORDS SUMMARY | 2024-04-24 21:08 | XMS_ITS | Encounter Summary ---
[place] [address] Care Team Providers Care Grease Maker Head Name Role Phone Arelis Michele MD Primary Care Provider [phone] Encounter Details Date Type Department Care Team (Latest Contact Info) Description 08/01/2018 10:00 AM EST - 08/01/2018 11:59 PM EST Hospital [place] [address] SOB (shortness of breath) Discharge Disposition: Home [...] PM EDT Hospital En[place] [address] 05/14/2024 1:00 PM EDT Office Visit Dermatology at [facility] [address] [place] [address] 08/18/2024 10:00 AM EST Office [place] [address] Alice Carney, ITA [facility] [place] [address] 08/18/2024 12:00 PM EST Appoint[place] [address] 12/08/2024 12:00 PM EDT Appoint[place] [address] documented as of this encounter Procedures Procedure [...] breath documented in this encounter Care Teams Grease Maker Head Relationship Specialty Start Date End Date Arelis Michele MD [address] [place] [address] PCP - General Family Medicine 08/01/18 02/11/24 documented as of this encounter
--- OUTSIDE RECORDS SUMMARY | 2024-04-24 21:08 | XMS_ITS | Encounter Summary ---
[place] [address] Care Team Providers Care Stummel Selector Name Role Phone Arelis Michele MD Primary Care Provider [phone] Reason for Visit * Reason Onset Date Comments Other 09/26/2015 flare Encounter Details Date Type Department Care Team (Late st Contact Info) Description 09/26/2015 Telephone [place] [address] Emily England RN Other (flare) Social History [...] but then he started getting them at [facility]. Told him it is probably likely his RA is flaring because of lack of treatment. Asked if he is on Medrol. He says he is currently on 4 mg Medrol daily. documented in this encounter Plan of Treatment Upcoming Encounters Date Type Department Care Team (Late st Contact Info) Description 04/28/2024 12:00 PM EDT Hospital Encounter [place] [address] 05/14/2024 1:00 PM EDT Office Visit Dermatology at [place] [address] [place] [address] 08/18/2024 10:00 AM EST Office [place] [address] Alice Carney APPLICATIONS PACKAGER [facility] [place] [address] 08/18/2024 12:00 PM EST Appointment [place] [address] 12/08/2024 12:00 PM EDT Appointment [place] [address] documented as of this encounter Visit Diagnoses Not on filedocumented in this encounter Care Teams Stummel Selector Relationship Specialty Start Date End Date Arelis Michele MD [address] [place] [address] PCP - General 11/16/13 06/10/18 documented as of this encounter
--- OUTSIDE RECORDS SUMMARY | 2024-04-24 21:08 | XMS_ITS | Encounter Summary ---
[place] [address] Care Team Providers Care Collect On Delivery Clerk Name Role Phone Arelis Michele MD Primary Care Provider [phone] Reason for Visit * Reason Onset Date Comments Questions 07/29/2018 Encounter Details Date Type Department Care Team (Late st Contact Info) Description 07/29/2018 Telephone [place] [address] Lionel Rabago, RN Questions Social History Tobacco [...] Will order a fluoroscopic diaphragm test at [facility] (if they perform those tests) ?? Recommend his Food Beverage Manager determine if reasonable for time limited d/c [...] 1:26 PM EST Spoke with Billie at [facility]. Last infusion 2017. Labs in June. [...] ??Looks like PULM diagnostics pending and Gastroenterology ([facility] pending. Await these study results. * Telephone Encounter - Lionel Rabago RN - 07/29/2018 4:00 PM EST Billie from [facility] calls to check on status of infusion. Call returned, unavailable. Message left with call back number provided. documented in this encounter Plan of Treatment Upcoming Encounters Date Type Department Care Team (Late st Contact Info) Description 04/28/2024 12:00 PM EDT Hospital Encounter [place] [address] 05/14/2024 1:00 PM EDT Office Visit Dermatology at [facility] [address] [place] [address] 08/18/2024 10:00 AM EST Office Visit [place] [address] Alice Carney, SCIENTIFIC ARTIST [facility] [place] [address] 08/18/2024 12:00 PM EST Appointment [place] [address] 12/08/2024 12:00 PM EDT Appointment [place] [address] documented as of this encounter Visit Diagnoses Not on filedocumented in this encounter Care Teams Collect On Delivery Clerk Relationship Specialty Start Date End Date Arelis Michele MD [address] [place] [address] PCP - General Family Medicine 08/01/18 02/11/24 documented as of this encounter
--- OUTSIDE RECORDS SUMMARY | 2024-04-24 21:08 | XMS_ITS | Encounter Summary ---
[place] [address] Care Team Providers Care Heading Repairer Name Role Phone Arelis Michele MD Primary Care Provider [phone] Encounter Details Date Type Department Care Team (Late st Contact Info) Description 02/09/2016 [place] [address] Sean Orozco MD [facility] [place] [address] Social History Tobacco Use Types Packs/Day Years [...] - hopefully along with another visit to [facility] like rheum 02/27. documented in this encounter Plan of Treatment Upcoming Encounters Date Type Department Care Team (Late st Contact Info) Description 04/28/2024 12:00 PM EDT Hospital En[place] [address] 05/14/2024 1:00 PM EDT Office Visit Dermatology at [facility] [address] [place] [address] 08/18/2024 10:00 AM EST Office [place] [address] Alice Carney APRN [facility] [place] [address] 08/18/2024 12:00 PM EST [place] [address] 12/08/2024 12:00 PM EDT [place] [address] documented as of this encounter Visit Diagnoses Diagnosis Brachial neuritis Brachial neuritis or radiculitis nos documented in this encounter Care Teams Heading Repairer Relationship Specialty Start Date End Date Arelis Michele MD [address] [place] [address] PCP - General 11/16/13 06/10/18 documented as of this encounter
--- OUTSIDE RECORDS SUMMARY | 2024-04-24 21:08 | XMS_ITS | Encounter Summary ---
[place] [address] Care Team Providers Care Electrician Assistant Name Role Phone Arelis Michele MD Primary Care Provider [phone] Encounter Details Date Type Department Care Team (Late st Contact Info) Description 12/30/2015 - 12/30/2015 11:59 PM EDT Hospital Encounter [place] [address] Dr Neha Temporary Pain Discharge Disposition: Home [...] PM EDT Hospital Encounter [place] [address] 05/14/2024 1:00 PM EDT Office Visit Dermatology at [facility] [address] [place] [address] 08/18/2024 10:00 AM EST Office [place] [address] Alice Carney APRN [facility] [place] [address] 08/18/2024 12:00 PM EST Appointment [place] [address] 12/08/2024 12:00 PM EDT Appointment [place] [address] documented as of this encounter Procedures Procedure Name Priority Date/Time Associated Diagnosis Comments FILM LIBRARY STORAGE ONLY MR UPPER EXTREMITY Routine 12/30/2015 12:00 AM EDT Pain documented in this encounter Results * Film Library- Storage only MR Upper Extremity (12/30/2015 12:00 AM EDT) Narrative [facility] - 02/08/2016 2:11 PM EDT This exam is for storage only and is auto-finalizing. [facility] FILM LIBRARY ORD ERABLES [place], [place] documented in this encounter Visit Diagnoses Diagnosis Pain Generalized pain documented in this encounter Care Teams Electrician Assistant Relationship Specialty Start Date End Date Arelis Michele MD [address] [place] [address] PCP - General 11/16/13 06/10/18 documented as of this encounter
--- OUTSIDE RECORDS SUMMARY | 2024-04-24 21:08 | XMS_ITS | Encounter Summary ---
Author Organization [facility] [place] [address] Care Team Providers Care Software Quality Analyst Name Role Phone Arelis Michele MD Primary Care Provider [phone] Encounter Details Date Type Department Care Team (Late st Contact Info) Description 02/08/2016 External Results [place] [address] George Ayoub MD [facility] [place] [address] Social History Tobacco Use Types Packs/Day Years [...] PM EDT Hospital Encounter [place] [address] 05/14/2024 1:00 PM EDT Office Visit Dermatology at [facility] [address] [place] [address] 08/18/2024 10:00 AM EST Office [place] [address] Alice Carney, VOCATIONAL TECHNICAL EDUCATION TEACHER [facility] [place] [address] 08/18/2024 12:00 PM EST Appointment [place] [address] 12/08/2024 12:00 PM EDT Appointment [place] [address] documented as of this encounter Procedures Procedure Name Priority Date/Time Associated Diagnosis Comments EMG SCAN Routine 02/07/2016 documented in this encounter Results * Scan Doc: EMG (02/07/2016) George Ayoub MD MEDIA MGR SCAN EXT O RDR/RSLT documented in this encounter Visit Diagnoses Not on filedocumented in this encounter Care Teams Software Quality Analyst Relationship Specialty Start Date End Date Arelis Michele MD [address] [place] [address] PCP - General 11/16/13 06/10/18 documented as of this encounter
--- OUTSIDE RECORDS SUMMARY | 2024-04-24 21:08 | XMS_ITS | Encounter Summary ---
[place] [address] Care Team Providers Care Crib Pad Maker Name Role Phone Arelis Michele MD Primary Care Provider [phone] Reason for Visit * Reason Onset Date Comments Other 06/15/2016 Rituxan infusion s Encounter Details Date Type Department Care Team (Late st Contact Info) Description 06/15/2016 [place] [phone] Guerline Taylor LPN Other (Rituxan infusions) Social [...] you send orders for Rituxan. Fax is [phone] and phone is [phone] documented in this encounter Plan of Treatment Upcoming Encounters Date Type Department Care Team (Late st Contact Info) Description 04/28/2024 12:00 PM EDT Hospital [place] [address] 05/14/2024 1:00 PM EDT Office Visit Dermatology at [facility] [address] [place] [address] 08/18/2024 10:00 AM EST Office [place] [address] Alice Carney, ADVENTURE EDUCATION TEACHER [facility] [place] [address] 08/18/2024 12:00 PM EST [place] [address] 12/08/2024 12:00 PM EDT [place] [address] documented as of this encounter Visit Diagnoses Not on filedocumented in this encounter Care Teams Crib Pad Maker Relationship Specialty Start Date End Date Arelis Michele MD [address] [place] [address] PCP - General 11/16/13 06/10/18 documented as of this encounter
--- OUTSIDE RECORDS SUMMARY | 2024-04-24 21:09 | XMS_ITS | Encounter Summary ---
[place] [address] Care Team Providers Care Epoxy Specialist Name Role Phone Arelis Michele MD Primary Care Provider [phone] Reason for Visit * Reason Comments IV Medication Encounter Details Date Type Department Care Team (Latest Contact Info) Description 01/13/2015 10:30 AM EDT - 01/13/2015 11:59 PM EDT Hospital [place] [address] CLINIC, DR CALHOUN Rheumatoid arthritis Social History [...] PM EDT Hospital En[place] [address] 05/14/2024 1:00 PM EDT Office Visit Dermatology at [facility] [place] [address] 08/18/2024 10:00 AM EST Office [place] [address] Alice Carney APRN [facility] [address] 08/18/2024 12:00 PM EST [place]oint[place] [address] 12/08/2024 12:00 PM EDT Appoint[place] [address] documented as of this encounter Visit Diagnoses [...] mg documented in this encounter Care Teams Epoxy Specialist Relationship Specialty Start Date End Date Arelis Michele MD [address] [place] [address] PCP - General 11/16/13 06/10/18 documented as of this encounter
--- OUTSIDE RECORDS SUMMARY | 2024-04-24 21:09 | XMS_ITS | Encounter Summary ---
Author Organization [facility] [place] [address] Care Team Providers Care Corporate Development Associate Name Role Phone Arelis Michele MD Primary Care Provider [phone] Encounter Details Date Type Department Care Team (Late st Contact Info) Description 10/19/2014 10:45 AM EST Follow-[place] [address] Kandy Espana, RN [facility] [place] [address] Rheumatoid arthritis(323.0); High risk medication use; Encounter for long-term [...] Patient Instructions * Patient Instructions* Kandy Espana, SUPERVISOR [employer] P[employer]ER [employer]ATING - 10/19/2014 7:05 AM EST Images from the original note were not included. [facility] Rheumatoid Arthritis: After Your Visit Your [...] your doctor if you can take an quyf-vvk-dqnhjgy medicine. 10. Take an active role in [...] more? Visit our health information library at [email or web address] You can also view health information on [employer]ytics, your personal patient account. Log in or sign up today. Enter K205 in the search box to learn more about Rheumatoid Arthritis: After Your Visit. ?? [id number] [employer]. Care instructions adapted under license by [facility]. This care instruction is for use with your licensed healthcare professional. If you have questions about a medical condition or this instruction, always ask your healthcare professional. [employer] disclaims any warranty or liability for your use of this information. Content Version: 10.3.306920; Current as of: May 11, 2014 ?? [...] 45 minute office visit was spent in dojo-jy-klfx counseling and education as described above. ?? documented in this encounter Plan of Treatment Upcoming Encounters Date Type Department Care Team (Late st Contact Info) Description 04/28/2024 12:00 PM EDT Hospital Encounter [place] [address] 05/14/2024 1:00 PM EDT Office Visit Dermatology at [address] [address] 08/18/2024 10:00 AM EST Office [place] [address] Alice Carney APRN [facility] [place] [address] 08/18/2024 12:00 PM EST Appointment [place] [address] 12/08/2024 12:00 PM EDT Appointment [place] [address] documented as of this encounter Visit Diagnoses Diagnosis Rheumatoid arthritis(714.0) Rheumatoid arthritis High risk medication use Encounter for long-term (current) use of other medications Encounter for long-term (current) use of other medications Depression Depressive disorder, not elsewhere classified documented in this encounter Care Teams Corporate Development Associate Relationship Specialty Start Date End Date Arelis Michele MD [address] [place] [address] PCP - General 11/16/13 06/10/18 documented as of this encounter
--- OUTSIDE RECORDS SUMMARY | 2024-04-24 21:09 | XMS_ITS | Encounter Summary ---
Author Organization [facility] [place] [address] Care Team Providers Care Grinder Name Role Phone Arelis Michele MD Primary Care Provider [phone] Reason for Visit * Reason Comments IV Medication Encounter Details Date Type Department Care Team (Latest Contact Info) Description 09/01/2014 9:21 AM EST - 09/01/2014 11:59 PM EST Hospital En[place] [address] CLINIC, Jennifer Stratton, [facility] [place] [address] RA (rheumatoid arthritis) Discharge Disposition: Home Social [...] PM EDT Hospital En[place] [address] 05/14/2024 1:00 PM EDT Office Visit Dermatology at [facility] [address] [place] [address] 08/18/2024 10:00 AM EST Office [place] [address] Alice Carney, ART GILDER [facility] [place] [address] 08/18/2024 12:00 PM EST Appointment [place] [address] 12/08/2024 12:00 PM EDT Appoint[place] [address] documented as of this encounter Visit Diagnoses [...] mg documented in this encounter Care Teams Grinder Relationship Specialty Start Date End Date Arelis Michele MD [address] [place] [address] PCP - General 11/16/13 06/10/18 documented as of this encounter
--- OUTSIDE RECORDS SUMMARY | 2024-04-24 21:09 | XMS_ITS | Encounter Summary ---
Author Organization [facility] [place] [address] Care Team Providers Care Dimethylaniline Sulfator Operator Name Role Phone Arelis Michele MD Primary Care Provider Encounter Details Date Type Department Care Team (Late Contact Info) Description 12/16/2013 [place] [address] Arcenio Melendrez, RN Social History Tobacco Use [...] PM EDT Hospital En[place] [address] 05/14/2024 1:00 PM EDT Office Visit Dermatology at [facility] [address] [place] [address] 08/18/2024 10:00 AM EST Office [place] [address] Alice Carney APRN [facility] [place] [address] 08/18/2024 12:00 PM EST [place] [address] 12/08/2024 12:00 PM EDT [place]oint[place] [address] documented as of this encounter Visit Diagnoses Not on filedocumented in this encounter Care Teams Dimethylaniline Sulfator Operator Relationship Specialty Start Date End Date Arelis Michele MD [address] [place] [address] PCP - General 11/16/13 06/10/18 documented as of this encounter
--- OUTSIDE RECORDS SUMMARY | 2024-04-24 21:09 | XMS_ITS | Encounter Summary ---
Author Organization [facility] [place] [address] Care Team Providers Care Panama Hat Smearer Name Role Phone Arelis Michele MD Primary Care Provider [phone] Encounter Details Date Type Department Care Team (Late st Contact Info) Description 12/15/2014 Orders [place] [address] Kandy Espana, RN [facility] [place] [address] Social History Tobacco Use Types Packs/Day Years [...] PM EDT Hospital [place] [address] 05/14/2024 1:00 PM EDT Office Visit Dermatology at [facility] [address] [place] [address] 08/18/2024 10:00 AM EST [place] [address] Alice Carney, R DEVELOPER [facility] [place] [address] 08/18/2024 12:00 PM EST [place] [address] 12/08/2024 12:00 PM EDT [place] [address] documented as of this encounter Visit Diagnoses Not on filedocumented in this encounter Care Teams Panama Hat Smearer Relationship Specialty Start Date End Date Arelis Michele MD [address] [place] [address] PCP - General 11/16/13 06/10/18 documented as of this encounter
--- OUTSIDE RECORDS SUMMARY | 2024-04-24 21:09 | XMS_ITS | Encounter Summary ---
Author Organization [facility] [address] Care Team Providers Care Stone Mill Operator Name Role Phone Arelis Michele MD Primary Care Provider [phone] Encounter Details Date Type Department Care Team (Late st Contact Info) Description 08/17/2014 10:45 AM EST Follow-[place] [address] Kandy Espana, RN [facility] [place] [address] Rheumatoid arthritis(144.0); High risk medication use; Encounter for long-term [...] Instructions * Patient Instructions* Kandy Espana, DIRECTOR SOCIAL WELFARE - 08/18/2014 10:34 AM EST ?? Rituxan [...] requested and reviewed office notes (DOS 03/25/2014) [facility] -> undergoing workup Cardiology and PULM [...] infusion 1,000 mg Intravenous Once Kandy Espana, DIRECTOR SOCIAL WELFARE 1,000 mg at 08/17/14 1100 Allergies Allergen [...] PM EDT Hospital Encounter [place] [address] 05/14/2024 1:00 PM EDT Office Visit Dermatology at [address] [address] 08/18/2024 10:00 AM EST Office [place] [address] Alice Carney APRN [facility] [place] [address] 08/18/2024 12:00 PM EST Appointment [place] [address] 12/08/2024 12:00 PM EDT Appointment [place] [address] documented as of this encounter Procedures Procedure [...] abnormality documented in this encounter Care Teams Stone Mill Operator Relationship Specialty Start Date End Date Arelis Michele MD [address] [place] [address] PCP - General 11/16/13 06/10/18 documented as of this encounter
--- OUTSIDE RECORDS SUMMARY | 2024-04-24 21:09 | XMS_ITS | Encounter Summary ---
Author Organization [facility] [place] [address] Care Team Providers Care Continuous Miner Name Role Phone Gloria Rodney MD Primary Care Provider [phone] Reason for Referral * Consultation (Routine) - Complete - Unable to Contact Patient Specialty Diagnoses / Procedures Referred By Azam corbett Referred To Contact Otolaryngology Diagnoses Chronic sinusitis Kandy Espana, RN [facility] [place] [address] [facility] Otolaryngology [address] [place] [address] Referral ID Status Reason Start Date Expiration Date Visits Requested Visits Authorized [id number] Complete - Unable to Contact Patient Specialty Service Requested 3 12/13/2013 1 1 Reason for Visit * Reason Comments Rheumatoid Arthritis Encounter Details Date Type Department Care Team (Late st Contact Info) Description 06/16/2013 12:45 PM EDT [place] [address] Kandy Espana, RN [facility] [place] [address] Encounter for long-term (current) use of other [...] Patient Instructions * Patient Instructions* Kandy Espana, MANAGER GROUP HOME - 06/16/2013 3:02 PM EDT ?? Referral [...] 13 vaccine - provided today - [facility][note 3] handout (patient) ?? Will review PPSV booster [...] 13 vaccine - provided today - [facility][note 3] handout (patient) provided. Planned today. ?? Will [...] 13 vaccine - provided today - [facility][note 3] handout (patient) ?? Will review PPSV booster [...] PM EDT Hospital En[place] [address] 05/14/2024 1:00 PM EDT Office Visit Dermatology at [address] [address] 08/18/2024 10:00 AM EST Office [place] [address] Alice Carney APRN [facility] [place] [address] 08/18/2024 12:00 PM EST [place] [address] 12/08/2024 12:00 PM EDT [place] [address] Scheduled Referrals Name Type Priority Associated Diagnoses [...] Comment: Lacho Durham MD Pulmonary/Critical Care [facility] Procedure Note Lacho Durham MD - 06/16/2013 [...] Comment: Lacho Durham MD Pulmonary/Critical Care [facility] Eusebio Espinosa MD PFT ORDERABLES * XR [...] Gran Absolute 0.02 0.00 - 0.05 x10(3)/mcL [facility] Blood specimen (specimen) 06/16/2013 2:31 PM EDT 06/16/2013 2:40 PM EDT Charlotte Gonzalez MD HEMATOLOGY ORDERABLE S Performing Organization Address [facility] Co de Phone Number [facility] * BUN (06/16/2013 2:31 PM EDT) Blood Urea Nitrogen 12 10 - 20 mg/dL [facility] Blood specimen (specimen) 06/16/2013 2:31 PM EDT 06/16/2013 2:40 PM EDT Narrative Resulting Agency Comment Spec In Lab Charlotte Gonzalez MD CHEMISTRY ORDERABLES Performing Organization Address [facility] Co de Phone Number [facility] * Extractable Nuclear Antigen (GINO) Ab (06/16/2013 2:31 PM EDT) GINO Ab Test ?Result ?Flag ??Unit ??RefValue Ab to Extractable Nuclear Ag Eval,S ??SS-A/Ro Ab, IgG, S ?<0.2 ?U -- REFERENCE VALUE -- <1.0 (Negative) ??SS-B/La Ab, IgG, S ?<0.2 ?U -- REFERENCE VALUE -- <1.0 (Negative) ??Sm Ab, IgG, S ? <0.2 ?U -- REFERENCE VALUE -- <1.0 (Negative) ??EXECUTIVE CANDIDATE DEVELOPER Ab, IgG, S ?<0.2 ?U -- REFERENCE VALUE -- <1.0 (Negative) ??Scl 70 Ab, IgG, S ? <0.2 ?U -- REFERENCE VALUE -- <1.0 (Negative) ??Ashley 1 Ab, IgG, S ? <0.2 ?U -- REFERENCE VALUE -- <1.0 (Negative) Test Performed by: [place] [address] Customer Relationship Specialist: Lisseth Hernandez, Ph.D. [facility] Blood specimen (specimen) 06/16/2013 2:31 PM EDT 06/16/2013 3:17 PM EDT Narrative Resulting Agency Comment Spec In Lab Eusebio Espinosa MD LAB SEND OUT ORDERAB LES Performing Organization Address [facility] Co de Phone Number [phone] * Sedimentation rate (06/16/2013 2:31 PM EDT) Sedimentation Rate Automated 5 0 - 15 mm/hr [facility] Blood specimen (specimen) 06/16/2013 2:31 PM EDT 06/16/2013 2:40 PM EDT Narrative Resulting Agency Comment Spec In Lab Eusebio Espinosa MD HEMATOLOGY ORDERABLE S Performing Organization Address [facility] Co de Phone Number [phone] * High Sensitivity CRP (06/16/2013 2:31 PM EDT) [facility] C-Reactive Protein High Sensitivity 4.8 mg/L [facility] Comment: Interpretations: 1) For [...] In Lab Eusebio Espinosa MD CHEMISTRY ORDERABLES [facility] * Comprehensive metabolic panel (non-fasting) (06/16/2013 2:31 PM EDT) [facility] Glucose 78 60 - 199 mg/dL [facility] Comment:Diabetes: >=200 mg/d L plus symptoms Blood Urea Nitrogen 12 10 - 20 mg/dL [facility] Creatinine 0.85 0.80 - 1.50 mg/dL [facility] Comment: Please note that the pediatric reference intervals supplied above were not validated at [facility]. Results from pediatric patients should be interpreted in conjunction to the patient's age, height and muscle mass. Sodium 140 135 - 145 mmol/L [facility] Potassium 3.9 3.5 - 5.0 mmol/L [facility] Comment: Please note: ??Patients with WBC >100,000 [...] In Lab Eusebio Espinosa MD CHEMISTRY ORDERABLES [facility] * (ABNORMAL) CBC (with Diff) (06/16/2013 2:31 [...] 12.0 fL [facility] Blood specimen (specimen) 06/16/2013 2:31 [...] Cough documented in this encounter Care Teams Continuous Miner Relationship Specialty Start Date End Date Gloria Rodney MD HOSPITALIST SERVICES [address] [place] [address] [place] [address] PCP - General 07/25/10 11/08/13 documented as of this encounter
--- OUTSIDE RECORDS SUMMARY | 2024-04-24 21:09 | XMS_ITS | Encounter Summary ---
[place] [address] Care Team Providers Care Maintenance Apprentice Name Role Phone Arelis Michele MD Primary Care Provider [phone] Reason for Visit * Reason Comments IV Medication Encounter Details Date Type Department Care Team (Latest Contact Info) Description 01/28/2014 11:06 AM EDT - 01/28/2014 11:59 PM EDT Hospital Encounter [place] [address] CLINIC, DR CALHOUN RA (rheumatoid arthritis) Social [...] PM EDT Hospital Encounter [place] [address] 05/14/2024 1:00 PM EDT Office Visit Dermatology at [address] [address] 08/18/2024 10:00 AM EST Office Visit [place] [address] Alice Carney, LABOR OPERATOR [facility] [place] [address] 08/18/2024 12:00 PM EST Appointment [place] [address] 12/08/2024 12:00 PM EDT Appointment [place] [address] documented as of this encounter Visit Diagnoses [...] mg documented in this encounter Care Teams Maintenance Apprentice Relationship Specialty Start Date End Date Arelis Michele MD [address] [place] [address] PCP - General 11/16/13 06/10/18 documented as of this encounter
--- OUTSIDE RECORDS SUMMARY | 2024-04-24 21:09 | XMS_ITS | Encounter Summary ---
Author Organization [facility] [place] [address] Care Team Providers Care Machinery Mover Name Role Phone Arelis Michele MD Primary Care Provider [phone] Reason for Visit * Reason Comments Follow-up Encounter Details Date Type Department Care Team (Late st Contact Info) Description 11/16/2013 11:45 AM EDT Follow-[place] [address] Robin Dodge MD [facility] [place] [address] Chronic cough (Primary Dx); SOB (shortness of [...] PM EDT Hospital Encounter [place] [address] 05/14/2024 1:00 PM EDT Office Visit Dermatology at [place] [address] [place] [address] 08/18/2024 10:00 AM EST Office [place] [address] Alice Carney APRN [facility] [place] [address] 08/18/2024 12:00 PM EST Appointment [place] [address] 12/08/2024 12:00 PM EDT Appointment [place] [address] documented as of this encounter Visit Diagnoses Diagnosis Chronic cough- Primary Cough SOB (shortness of breath) Shortness of breath RA (rheumatoid arthritis) Rheumatoid arthritis Post-nasal drip Postnasal drip documented in this encounter Care Teams Machinery Mover Relationship Specialty Start Date End Date Arelis Michele MD [address] [place] [address] PCP - General 11/16/13 06/10/18 documented as of this encounter
--- OUTSIDE RECORDS SUMMARY | 2024-04-24 21:09 | XMS_ITS | Encounter Summary ---
[place] [address] Care Team Providers Care Activities Counselor Name Role Phone Arelis Michele MD Primary Care Provider [phone] Reason for Visit * Reason Onset Date Comments Other 12/21/2013 increased pain Encounter Details Date Type Department Care Team (Late st Contact Info) Description 12/21/2013 Telephone [place] [address] Emily England RN Other (increased pain) Social [...] PM EDT Hospital Encounter [place] [address] 05/14/2024 1:00 PM EDT Office Visit Dermatology at [facility] [address] [place] [address] 08/18/2024 10:00 AM EST Office Visit [place] [address] Alice Carney APRN [facility] [place] [address] 08/18/2024 12:00 PM EST Appointment [place] [address] 12/08/2024 12:00 PM EDT Appointment [place] [address] documented as of this encounter Visit Diagnoses Not on filedocumented in this encounter Care Teams Activities Counselor Relationship Specialty Start Date End Date Arelis Michele MD [address] [place] [address] PCP - General 11/16/13 06/10/18 documented as of this encounter
--- OUTSIDE RECORDS SUMMARY | 2024-04-24 21:09 | XMS_ITS | Encounter Summary ---
Author [place] [address] Care Team Providers Care Sound Truck Operator Name Role Phone Gloria Espinoza MD Primary Care Provider [phone] Encounter Details Date Type Department Care Team (Latest Contact Info) Description 06/16/2013 1:53 PM EDT - 06/16/2013 11:59 PM EDT Hospital [place] [address] SCHEDULE 1, PFT Gloria Espinoza MD [address] [place] [address] [place] [address] Cough (Primary Dx) Discharge Disposition: Home Social [...] No Comment: Lacho Durham MD Pulmonary/Critical Care [facility] documented in this encounter Plan of Treatment Upcoming Encounters Date Type Department Care Team (Late st Contact Info) Description 04/28/2024 12:00 PM EDT Hospital En[place] [address] 05/14/2024 1:00 PM EDT Office Visit Dermatology at [address] [address] 08/18/2024 10:00 AM EST Office [place] [address] Alice Carney [facility] [place] [address] 08/18/2024 12:00 PM EST [place] [address] 12/08/2024 12:00 PM EDT [place]oint[place] [address] documented as of this encounter Procedures Procedure [...] No Comment: Lacho Durham MD Pulmonary/Critical Care [facility] Procedure Note Lacho Durham MD [...] No Comment: Lacho Durham MD Pulmonary/Critical Care [facility] Eusebio Espinosa MD PFT ORDERABLES documented in this encounter Visit Diagnoses Diagnosis Cough- Primary documented in this encounter Care Teams Sound Truck Operator Relationship Specialty Start Date End Date Gloria Espinoza MD HOSPITALIST SERVICES [address] [place] [address] [place] [address] PCP - General 07/25/10 11/08/13 documented as of this encounter
--- OUTSIDE RECORDS SUMMARY | 2024-04-24 21:09 | XMS_ITS | Encounter Summary ---
Author Organization [facility] [place] [address] Care Team Providers Care Sheep Farmer Name Role Phone Gloria Espinoza MD Primary Care Provider [phone] Reason for Visit * Reason Comments Rheumatoid Arthritis Encounter Details Date Type Department Care Team (Late st Contact Info) Description 09/14/2013 12:05 PM EST [place] [address] Kandy Espana, RN [facility] [place] [address] Rheumatoid arthritis (Primary Dx); Chronic steroid use; [...] access to your electronic medical record at [facility] and the ability to communicate with [...] the instructions. Here is your activation code: [email or web address] Expires: 10/29/2013 12:03 PM Remember, myD-H is [...] PM EDT Hospital En[place] [address] 05/14/2024 1:00 PM EDT Office Visit Dermatology at [address] [address] 08/18/2024 10:00 AM EST [place] [address] Alice Carney APRN [facility] [place] [address] 08/18/2024 12:00 PM EST [place] [address] 12/08/2024 12:00 PM EDT [place] [address] documented as of this encounter Visit Diagnoses Diagnosis Rheumatoid arthritis(714.0)- Primary Rheumatoid arthritis Chronic steroid use Encounter for long-term (current) use of steroids High risk medication use Encounter for long-term (current) use of other medications Encounter for long-term (current) use of other medications documented in this encounter Care Teams Sheep Farmer Relationship Specialty Start Date End Date Gloria Espinoza MD HOSPITALIST SERVICES [address] [place] [address] [place] [address] PCP - General 11/23/10 3/9/14 documented as of this encounter
--- OUTSIDE RECORDS SUMMARY | 2024-04-24 21:09 | XMS_ITS | Encounter Summary ---
[place] [address] Care Team Providers Care Vacuum Forming Machine Operator Name Role Phone Arelis Michele MD Primary Care Provider [phone] Encounter Details Date Type Department Care Team (Latest Contact Info) Description 12/17/2014 12:01 PM EDT - 12/17/2014 11:59 PM EDT Hospital [place] [address] CLINIC, DR LJ Cannon, Serina Montelongo MD [facility] [place] [address] Rheumatoid arthritis(254.0); High risk medication use; Encounter for long-term [...] PM EDT Hospital En[place] [address] 05/14/2024 1:00 PM EDT Office Visit Dermatology at [facility] [address] [place] [address] 08/18/2024 10:00 AM EST Office [place] [address] Alice Carney, PUBLIC SERVICES ASSISTANT [facility] [place] [address] 08/18/2024 12:00 PM EST [place] [address] 12/08/2024 12:00 PM EDT [place]oint[place] [address] documented as of this encounter Procedures Procedure [...] mg documented in this encounter Care Teams Vacuum Forming Machine Operator Relationship Specialty Start Date End Date Arelis Michele MD [address] [place] [address] PCP - General 11/16/13 06/10/18 documented as of this encounter
--- OUTSIDE RECORDS SUMMARY | 2024-04-24 21:09 | XMS_ITS | Encounter Summary ---
Author Organization [facility] [address] Care Team Providers Care Gas Transfer Operator Name Role Phone Arelis Michele MD Primary Care Provider [phone] Encounter Details Date Type Department Care Team (Late st Contact Info) Description 03/04/2014 Orders [place] [address] Emily England, RN Post-nasal drip (Primary Dx) [...] PM EDT Hospital Encounter [place] [address] 05/14/2024 1:00 PM EDT Office Visit Dermatology at [facility] [address] [place] [address] 08/18/2024 10:00 AM EST Office [place] [address] Alice Carney APRN [facility] [place] [address] 08/18/2024 12:00 PM EST [place]ointment [place] [address] 12/08/2024 12:00 PM EDT [place]ointment [place] [address] documented as of this encounter Visit Diagnoses Diagnosis Post-nasal drip- Primary Postnasal drip documented in this encounter Care Teams Gas Transfer Operator Relationship Specialty Start Date End Date Arelis Michele MD [address] [place] [address] PCP - General 11/16/13 06/10/18 documented as of this encounter
--- OUTSIDE RECORDS SUMMARY | 2024-04-24 21:09 | XMS_ITS | Encounter Summary ---
Author Organization [facility] [place] [address] Care Team Providers Care Oxygen Equipment Technician Name Role Phone Unknown Primary Care Provider Unavailabl e Encounter Details Date Type Department Care Team (Latest Contact Info) Description 11/09/2013 10:32 AM EDT - 11/09/2013 11:59 PM EDT Hospital [place] [address] SCHEDULE 1, PFT Robin Dodge MD [facility] [place] [address] SOB (shortness of breath) (Primary Dx) Discharge [...] PM EDT Hospital En[place] [address] 05/14/2024 1:00 PM EDT Office Visit Dermatology at [facility] [address] [place] [address] 08/18/2024 10:00 AM EST Office Visit Rheumatology at [facility], [place] [address] Alice Carney, ITA [facility] [place] [address] 08/18/2024 12:00 PM EST Appointment Med Infusion at [facility] [place] [address] 12/08/2024 12:00 PM EDT Appointment Med Infusion at [facility], [place] [address] documented as of this encounter Procedures Procedure [...] breath documented in this encounter Care Teams Oxygen Equipment Technician Relationship Specialty Start Date End Date Unknown None PCP - General 11/09/13 11/15/13 documented as of this encounter
--- OUTSIDE RECORDS SUMMARY | 2024-04-24 21:09 | XMS_ITS | Encounter Summary ---
Author Organization [facility] [place] [address] Care Team Providers Care Medical Claims Processor Name Role Phone Arelis Michele MD Primary Care Provider Encounter Details Date Type Department Care Team (Late st Contact Info) Description 08/17/2014 Orders [place] [address] Kandy Espana, RN [facility] [place] [address] Encounter for long-term (current) use of other [...] [place] [address] 05/14/2024 1:00 PM EDT Office Visit Dermatology at [facility] [address] [place] [address] 08/18/2024 10:00 AM EST Office [place] [address] Alice Carney APRN [facility] [place] [address] 08/18/2024 12:00 PM EST Appointment [place] [address] 12/08/2024 12:00 PM EDT Appointment [place] [address] documented as of this encounter Visit Diagnoses Diagnosis Encounter for long-term (current) use of other medications documented in this encounter Care Teams Medical Claims Processor Relationship Specialty Start Date End Date Arelis Michele MD [address] [place] [address] PCP - General 11/16/13 06/10/18 documented as of this encounter
--- OUTSIDE RECORDS SUMMARY | 2024-04-24 21:09 | XMS_ITS | Encounter Summary ---
Author Organization [facility] [place] [address] Care Team Providers Care Apple Press Operator Name Role Phone Gloria Espinoza MD Primary Care Provider [phone] Encounter Details Date Type Department Care Team (Late st Contact Info) Description 06/16/2013 2:49 PM EDT - 06/16/2013 11:59 PM EDT Hospital Encounter XRay at [address] [place] [address] Cough Social History Tobacco Use Types Packs/Day [...] PM EDT Hospital Encounter [place] [address] 05/14/2024 1:00 PM EDT Office Visit Dermatology at [place] [address] [place] [address] 08/18/2024 10:00 AM EST Office [place] [address] Alice Carney APRN [facility] [address] 08/18/2024 12:00 PM EST Appointment [place] [address] 12/08/2024 12:00 PM EDT Appointment [place] [address] documented as of this encounter Procedures Procedure [...] 2 VIEWS Clinical History dry cough on supervisor furnace room methotrexate for RA Comparison Chest radiograph 06/04/2007, [...] 2 VIEWS Clinical History dry cough on snf methotrexate for RA Comparison Chest radiograph 06/04/2007, [...] Cough documented in this encounter Care Teams Apple Press Operator Relationship Specialty Start Date End Date Gloria Espinoza MD HOSPITALIST SERVICES [address] [place] [address] [place] [address] PCP - General 07/25/10 11/08/13 documented as of this encounter
--- OUTSIDE RECORDS SUMMARY | 2024-04-24 21:09 | XMS_ITS | Encounter Summary ---
[place] [address] Care Team Providers Care Car Driver Name Role Phone Arelis Michele MD Primary Care Provider [phone] Reason for Visit * Reason Comments IV Medication Encounter Details Date Type Department Care Team (Latest Contact Info) Description 08/17/2014 10:26 AM EST - 08/17/2014 11:59 PM EST Hospital En[place] [address] CLINIC, DR SWAPNA DEE (rheumatoid arthritis) Social [...] PM EDT Hospital En[place] [address] 05/14/2024 1:00 PM EDT Office Visit Dermatology at [facility] [address] [place] [address] 08/18/2024 10:00 AM EST Office [place] [address] Alice Carney APRN [facility] [place] [address] 08/18/2024 12:00 PM EST [place]oint[place] [address] 12/08/2024 12:00 PM EDT [place]ointment [place] [address] documented as of this encounter Visit Diagnoses [...] mg documented in this encounter Care Teams Car Driver Relationship Specialty Start Date End Date Arelis Michele MD [address] [place] [address] PCP - General 11/16/13 06/10/18 documented as of this encounter
--- OUTSIDE RECORDS SUMMARY | 2024-04-24 21:09 | XMS_ITS | Encounter Summary ---
Author Organization [facility] [place] [address] Care Team Providers Care Liability Claims Representative Name Role Phone Arelis Michele MD Primary Care Provider [phone] Reason for Visit * Reason Comments Rheumatoid Arthritis Encounter Details Date Type Department Care Team (Late st Contact Info) Description 05/18/2014 12:45 PM EDT Follow-[place] [address] Kandy Espana, RN [facility] [place] [address] Rheumatoid arthritis(714.0) (Primary Dx); High risk medication [...] Received and reviewed office notes (DOS 03/25/2014) [facility] -> undergoing workup Cardiology and PULM documented in this encounter Plan of Treatment Upcoming Encounters Date Type Department Care Team (Late st Contact Info) Description 04/28/2024 12:00 PM EDT Hospital Encounter [place] [address] 05/14/2024 1:00 PM EDT Office Visit Dermatology at [address] [address] 08/18/2024 10:00 AM EST Office [place] [address] Alice Carney APRN [facility] [place] [address] 08/18/2024 12:00 PM EST Appointment [place] [address] 12/08/2024 12:00 PM EDT Appointment [place] [address] documented as of this encounter Visit Diagnoses Diagnosis Rheumatoid arthritis(714.0)- Primary Rheumatoid arthritis High risk medication use Encounter for long-term (current) use of other medications Encounter for long-term (current) use of other medications Cardiomyopathy Other primary cardiomyopathies documented in this encounter Care Teams Liability Claims Representative Relationship Specialty Start Date End Date Arelis Michele MD [address] [place] [address] PCP - General 11/16/13 06/10/18 documented as of this encounter
--- OUTSIDE RECORDS SUMMARY | 2024-04-24 21:09 | XMS_ITS | Encounter Summary ---
Author Organization [facility] [place] [address] Care Team Providers Care Insurance Claim Approver Name Role Phone Arelis Michele MD Primary Care Provider [phone] Encounter Details Date Type Department Care Team (Late st Contact Info) Description 12/24/2013 12:00 PM EDT Follow-[place] [address] Kandy Espana, RN [facility] [address] Rheumatoid arthritis(714.0) (Primary Dx); High risk medication [...] this encounter Progress Notes * Kandy Espana, ACCOUNTANT MANAGER - 12/24/2013 12:01 PM EDT Established Patient [...] PM EDT Hospital Encounter [place] [address] 05/14/2024 1:00 PM EDT Office Visit Dermatology at [place] [address] [place] [address] 08/18/2024 10:00 AM EST Office [place] [address] Alice Carney, [facility] [address] 08/18/2024 12:00 PM EST Appointment [place] [address] 12/08/2024 12:00 PM EDT Appointment [place] [address] documented as of this encounter Procedures Procedure [...] * QuantiFERON-TB Gold (12/24/2013 12:54 PM EDT) Pathologist [facility] Quantiferon-TB Gold Negative Negative [facility] Comment: Nil (IU/mL)= 0.15 TB [...] In Lab Austin Shelton II, DO CHEMISTRY ORDERA BLES Performing Organization Address City/State/[facility] Co al Phone Number [facility] documented in this encounter Visit Diagnoses [...] unspecified documented in this encounter Care Teams Insurance Claim Approver Relationship Specialty Start Date End Date Arelis Michele MD [address] [place] [address] PCP - General 11/16/13 06/10/18 documented as of this encounter
--- OUTSIDE RECORDS SUMMARY | 2024-04-24 21:09 | XMS_ITS | Encounter Summary ---
Author Organization [facility] [place] [address] Care Team Providers Care Director Of Purchasing Name Role Phone Arelis Michele MD Primary Care Provider [phone] Encounter Details Date Type Department Care Team (Latest Contact Info) Description 11/16/2013 10:54 AM EDT - 11/16/2013 11:59 PM EDT Hospital En[place] [address] SCHEDULE 1, PFT Robin [place] MD [facility] [place] [address] SOB (shortness of breath) (Primary Dx) Discharge [...] PM EDT Hospital Encounter [place] [address] 05/14/2024 1:00 PM EDT Office Visit Dermatology at [address] [place] [address] 08/18/2024 10:00 AM EST Office [place] [address] Alice Carney, EMBOSSING CLERK [facility] [place] [address] 08/18/2024 12:00 PM EST Appointment [place] [address] 12/08/2024 12:00 PM EDT Appointment [place] [address] documented as of this encounter Procedures Procedure [...] breath documented in this encounter Care Teams Director Of Purchasing Relationship Specialty Start Date End Date Arelis Michele MD [address] [place] [address] PCP - General 11/16/13 06/10/18 documented as of this encounter
--- OUTSIDE RECORDS SUMMARY | 2024-04-24 21:09 | XMS_ITS | Encounter Summary ---
Author Organization [facility] [place] [address] Care Team Providers Care Shuttle Buggy Operator Name Role Phone Arelis Michele MD Primary Care Provider [phone] Reason for Visit * Reason Comments IV Medication Encounter Details Date Type Department Care Team (Latest Contact Info) Description 01/14/2014 10:00 AM EDT - 01/14/2014 11:59 PM EDT Hospital [place] [address] CLINIC, Kalen Ramos MD [facility] [place] [address] RA (rheumatoid arthritis) Discharge Disposition: Home Social [...] Birthdate: 1950 Admit date: 01/14/2014 Attending Physician: Clinic, Dr Swapna MD [facility] THERAPY ADMINISTRATION NOTES [...] PM EDT Hospital En[place] [address] 05/14/2024 1:00 PM EDT Office Visit Dermatology at [address] [address] 08/18/2024 10:00 AM EST [place] [address] Alice Carney, ELECTRIC SOLDERER [facility] [place] [address] 08/18/2024 12:00 PM EST [place] [address] 12/08/2024 12:00 PM EDT [place] [address] documented as of this encounter Visit Diagnoses [...] mg documented in this encounter Care Teams Shuttle Buggy Operator Relationship Specialty Start Date End Date Arelis Michele MD [address] [place] [address] PCP - General 11/16/13 06/10/18 documented as of this encounter
--- OUTSIDE RECORDS SUMMARY | 2024-04-24 21:09 | XMS_ITS | Encounter Summary ---
[place] [address] Care Team Providers Care Salesperson Furniture Name Role Phone Arelis Michele MD Primary Care Provider [phone] Reason for Visit * Reason Onset Date Comments Other 02/15/2014 instructions. Encounter Details Date Type Department Care Team (Late st Contact Info) Description 02/15/2014 Telephone [place] [address] Kristy Corbett LPN Other (instructions.) Social History [...] a heart catheterization done last [facility] andhe said he was told that the medications he is on from the Lead Operator could be the cause of hisissues. I called and spoke with Wesly and he said he was told the Methotrexate and MethylPREDNISolone may be the cause of his issues and I asked him to have [facility] send us the report and the supporting information so Guillermina Espana can look at it and figure out the next step for his treatment. Pt verbalized understanding. Message forwarded to Guillermina Espana. documented in this encounter Plan of Treatment Upcoming Encounters Date Type Department Care Team (Late st Contact Info) Description 04/28/2024 12:00 PM EDT Hospital En[place] [address] 05/14/2024 1:00 PM EDT Office Visit Dermatology at [address] [address] 08/18/2024 10:00 AM EST Office [place] [address] Alice Carney, ITA [facility] [place] [address] 08/18/2024 12:00 PM EST [place]ointment [place] [address] 12/08/2024 12:00 PM EDT Appointment [place] [address] documented as of this encounter Visit Diagnoses Not on filedocumented in this encounter Care Teams Salesperson Furniture Relationship Specialty Start Date End Date Arelis Michele MD [address] [place] [address] PCP - General 11/16/13 06/10/18 documented as of this encounter
--- OUTSIDE RECORDS SUMMARY | 2024-04-24 21:09 | XMS_ITS | Encounter Summary ---
Author Organization [facility] [place] [address] Care Team Providers Care Knockdown Worker Name Role Phone Arelis Michele MD Primary Care Provider [phone] Reason for Visit * Reason Comments Rheumatoid Arthritis Encounter Details Date Type Department Care Team (Late st Contact Info) Description 01/28/2014 10:30 AM EDT [place] [address] Kandy Espana, RN [facility] [place] [address] Rheumatoid arthritis(714.0) (Primary Dx); High risk medication [...] stress (family/community). [place]els [place] living in [place] with kids; her SO is in snf. Mr. Ybarra able to see his great [...] PM EDT Hospital En[place] [address] 05/14/2024 1:00 PM EDT Office Visit Dermatology at [facility] [address] [address] 08/18/2024 10:00 AM EST Office [place] [address] Alice Carney APRN [facility] [place] [address] 08/18/2024 12:00 PM EST Appointment [place] [address] 12/08/2024 12:00 PM EDT [place]ointment [place] [address] documented as of this encounter Visit Diagnoses Diagnosis Rheumatoid arthritis(714.0)- Primary Rheumatoid arthritis High risk medication use Encounter for long-term (current) use of other medications Chronic steroid use Encounter for long-term (current) use of steroids Situational stress Other psychological or physical stress, not elsewhere classified documented in this encounter Care Teams Knockdown Worker Relationship Specialty Start Date End Date Arelis Michele MD [address] [place] [address] PCP - General 11/16/13 06/10/18 documented as of this encounter
--- OUTSIDE RECORDS SUMMARY | 2024-04-24 21:09 | XMS_ITS | Encounter Summary ---
Author Organization [facility] [place] [address] Care Team Providers Care Hand Roller Engraver Name Role Phone Arelis Michele MD Primary Care Provider [phone] Encounter Details Date Type Department Care Team (Late st Contact Info) Description 03/02/2014 12:00 PM EDT Follow-[place] [address] Kandy Espana, RN [facility] [place] [address] Cardiomyopathy; Rheumatoid arthritis(144.0); High risk medication use; Encounter [...] PM EDT Hospital Encounter [place] [address] 05/14/2024 1:00 PM EDT Office Visit Dermatology at [address] [address] 08/18/2024 10:00 AM EST Office Visit [place] [address] Alice Carney APRN [facility] [place] [address] 08/18/2024 12:00 PM EST Appointment [place] [address] 12/08/2024 12:00 PM EDT Appointment [place] [address] documented as of this encounter Visit Diagnoses Diagnosis Cardiomyopathy Other primary cardiomyopathies Rheumatoid arthritis(714.0) Rheumatoid arthritis High risk medication use Encounter for long-term (current) use of other medications Encounter for long-term (current) use of other medications History of steroid therapy Personal history of systemic steroid therapy documented in this encounter Care Teams Hand Roller Engraver Relationship Specialty Start Date End Date Arelis Michele MD [address] [place] [address] PCP - General 11/16/13 06/10/18 documented as of this encounter
--- OUTSIDE RECORDS SUMMARY | 2024-04-24 21:09 | XMS_ITS | Encounter Summary ---
Author Organization [facility] [place] [address] Care Team Providers Care Veneer Repairer Machine Name Role Phone Lee Michele MD Primary Care Provider [phone] Encounter Details Date Type Department Care Team (Late st Contact Info) Description 12/15/2014 10:45 AM EDT [place] [address] Kandy Espana, RN [facility] [place] [address] Rheumatoid arthritis(897.0); High risk medication use; Encounter for long-term [...] Hospital [place] [address] 05/14/2024 1:00 PM EDT Office Visit Dermatology at [facility] [address] [place] [address] 08/18/2024 10:00 AM EST Office [place] [address] Alice Carney APRN [facility] [place] [address] 08/18/2024 12:00 PM EST [place] [address] 12/08/2024 12:00 PM EDT [place] [address] Scheduled Orders Name Type Priority Associated Diagnoses [...] Lab Tom Gan MD HEMATOLOGY ORDERABLE S CERFRANKIE NEGRETEENNIUM * (ABNORMAL) Hemogram (12/15/2014 12:29 PM EDT) [...] MD HEMATOLOGY ORDERABLE S Performing Organization Address City/[facility]/ZIP Co de Phone Number CERFRANKIE MILLENNIUM * Sedimentation rate (12/15/2014 12:29 PM EDT) Sedimentation Rate Automated 6 0 - 15 mm/hr CARLOS WALKERIUM Blood specimen (specimen) 12/15/2014 12:29 PM EDT 12/15/2014 12:41 PM EDT Narrative Resulting Agency Comment Spec In Lab Serina Cannon MD HEMATOLOGY ORDERABLE S Performing Organization Address [facility] Co de Phone Number CARLOS DENNIS * High Sensitivity CRP (12/15/2014 12:29 PM EDT) C-Reactive Protein High Sensitivity 2.9 mg/L CERFRANKIE WALKERIUM Comment: Interpretations: 1) For accurate cardiac risk [...] Cannon MD CHEMISTRY ORDERABLES Performing Organization Address [facility] Co de Phone Number CARLOS DENNIS * Protein Electrophoresis, serum (12/15/2014 12:29 PM EDT) Total Prot Electrophoresis 6.2 6.1 - 8.0 gm/dL [facility] DENN[facility] Albumin Electrophoresis 4.04 3.60 - 6.00 gm/dL [...] In Lab Serina Cannon MD CHEMISTRY ORDERABLES [facility] MILLENNIUM * Lactate Dehydrogenase (12/15/2014 12:29 PM EDT) Lactate Dehydrogenase 182 110 - 220 unit/L CERNER MILLENNIUM Blood specimen (specimen) 12/15/2014 12:29 PM EDT 12/15/2014 12:41 PM EDT Narrative Resulting Agency Comment Spec In Lab Serina Cannon MD CHEMISTRY ORDERABLES [facility] * Comprehensive metabolic panel (non-fasting) (12/15/2014 12:29 PM EDT) Glucose 90 60 - 199 mg/dL [facility] MILLENNIUM Comment:Diabetes: >=200 mg/d L plus symptoms [...] the following links into your internet browser. [email or web address] Blood specimen (specimen) 12/15/2014 12:29 PM EDT 12/15/2014 12:41 PM EDT Narrative Resulting Agency Comment Spec In Lab Serina Cannon MD CHEMISTRY ORDERABLES CERNER MILLBackflip StudiosIUM documented in this encounter Visit Diagnoses Diagnosis [...] neck documented in this encounter Care Teams Veneer Repairer Machine Relationship Specialty Start Date End Date Lee Michele MD [address] [place] [address] PCP - General 11/16/13 06/10/18 documented as of this encounter
--- OUTSIDE RECORDS SUMMARY | 2024-04-24 21:09 | XMS_ITS | Encounter Summary ---
Author Organization [facility] [place] [address] Care Team Providers Care Marine Electrician Helper Name Role Phone Unknown Primary Care Provider Unavailabl e Reason for Referral * Consultation (Routine) - Closed Specialty Diagnoses / Procedures Referred By Contmabel t Referred To Contact Ophthalmology Diagnoses Dry eyes, bilateral Kandy Espana, ASHLEY [facility] [place] [address] [facility] Ophthalmology [address] [place] [phone] Referral ID Status Reason Start Date Expiration Date V isits Requested Visits Authorized [id number] Closed Consult, Test & Treat 11/09/2013 05/08/2014 1 1 Encounter Details Date Type Department Care Team (Late st Contact Info) Description 11/09/2013 12:00 PM EDT [place] [address] Kandy Espana RN [facility] DR [place] [address] Rheumatoid arthritis(714.0) (Primary Dx); High [...] PM EDT Hospital En[place] [address] 05/14/2024 1:00 PM EDT Office Visit Dermatology at [facility] [address] [place] [address] 08/18/2024 10:00 AM EST Office [place] [address] Alice Carney APRN [facility] [place] [address] 08/18/2024 12:00 PM EST [place] [address] 12/08/2024 12:00 PM EDT [place] [address] Scheduled Orders Name Type Priority Associated Diagnoses [...] Gran Absolute 0.01 0.00 - 0.05 x10(3)/mcL [facility] MILLENNIUM Blood specimen (specimen) 11/09/2013 12:29 PM EDT 11/09/2013 12:42 PM EDT Charlotte Gonzalez MD HEMATOLOGY ORDERABLE S [facility] * BUN (11/09/2013 12:29 PM EDT) Blood Urea Nitrogen 11 10 - 20 mg/dL [facility] Blood specimen (specimen) 11/09/2013 12:29 PM EDT 11/09/2013 12:42 PM EDT Narrative Resulting Agency Comment Spec In Lab Charlotte Gonzalez MD CHEMISTRY ORDERABLES [facility] * Hepatic Function Panel (11/09/2013 12:29 PM EDT) Pathologist [facility] Protein, Total 6.7 6.4 - 8.3 gm/dL [facility] Albumin 4.2 3.2 - 5.2 gm/dL [facility] MILLENNIUM Aspartate Aminotransferase 21 0 - 39 unit/L [facility] MILLENNIUM Alanine Aminotransferase 26 0 - 55 unit/L [facility] MILLENNIUM Alkaline Phosphatase 77 40 - 120 unit/L CERNER MILLENNIUM Bilirubin, Total 0.4 0.2 - 1.3 mg/dL CERNER MILLENNIUM Bilirubin, Direct 0.1 0.0 - 0.3 mg/dL CERNER MILLENNIUM Blood specimen (specimen) 11/09/2013 12:29 PM EDT 11/09/2013 12:42 PM EDT Narrative Resulting Agency Comment Spec In Lab Charlotte Gonzalez MD CHEMISTRY ORDERABLES Performing Organization Address [facility] de Phone Number [facility] * High Sensitivity CRP (11/09/2013 12:29 PM EDT) Pathologist [facility] C-Reactive Protein High Sensitivity 3.3 mg/L [facility]COMM[facility] Comment: Interpretations: 1) For accurate cardiac risk [...] Spec In Lab Jennifer Hawley DO CHEMISTRY ORDERA BLES Performing Organization Address [facility] Co de Phone Number [facility] PENELOPEsevenload * (ABNORMAL) CBC (with Diff) (11/09/2013 12:29 [...] of variation 15.7(H) 10.9 - 14.4 % CERNER MILLENNIUM Mean Platelet Volume 9.8 9.0 - 12.0 fL CERNER MILLENNIUM Blood specimen (specimen) 11/09/2013 12:29 PM EDT 11/09/2013 12:42 PM EDT Narrative Resulting Agency Comment Spec In Lab Jennifer Hawley DO HEMATOLOGY ORDER DARIAN CERFRANKIE DENNIS documented in this encounter Visit Diagnoses Diagnosis Rheumatoid arthritis(714.0)- Primary Rheumatoid arthritis High risk medication use Encounter for long-term (current) use of other medications Encounter for long-term (current) use of other medications Need for prophylactic vaccination against Streptococcus pneumoniae (pneumococcus) Need for prophylactic vaccination against streptococcus pneumoniae (pneumococcus) Dry eyes, bilateral Tear film insufficiency, unspecified documented in this encounter Care Teams Marine Electrician Helper Relationship Specialty Start Date End Date Unknown None PCP - General 11/09/13 11/15/13 documented as of this encounter
--- OUTSIDE RECORDS SUMMARY | 2024-04-24 21:09 | XMS_ITS | Encounter Summary ---
Author Organization [facility] [place] [address] Care Team Providers Care Cook Pie Name Role Phone Arelis Michele MD Primary Care Provider [phone] Encounter Details Date Type Department Care Team (Late st Contact Info) Description 01/13/2015 1:45 PM EDT [place] [address] Kandy Espana, RN [facility] [place] [address] Rheumatoid arthritis; High risk medication use; Encounter [...] this encounter Progress Notes * Kandy Espana, NOC ANALYST - 01/13/2015 7:43 AM EDT Established Patient [...] for home use fn winter. Was referredto Web Developer at local site. Using inhler twice daily [...] PT/HEP. ?? Requests future Rituxan infusions at [facility] - will assure acceptance and covering staff. [...] PM EDT Hospital En[place] [address] 05/14/2024 1:00 PM EDT Office Visit Dermatology at [address] [address] 08/18/2024 10:00 AM EST [place] [address] Alice Carney APRN [facility] [place] [address] 08/18/2024 12:00 PM EST App[place] [address] 12/08/2024 12:00 PM EDT [place] [address] documented as of this encounter Procedures Procedure [...] syndrome documented in this encounter Care Teams Cook Pie Relationship Specialty Start Date End Date Arelis Michele MD [address] [place] [address] PCP - General 11/16/13 06/10/18 documented as of this encounter
--- OUTSIDE RECORDS SUMMARY | 2024-04-24 21:09 | XMS_ITS | Encounter Summary ---
Author Organization [facility] [place] [address] Care Team Providers Care Propagator Name Role Phone Arelis Michele MD Primary Care Provider [phone] Encounter Details Date Type Department Care Team (Late st Contact Info) Description 12/22/2013 Tele[place] [address] Kandy Espana, RN [facility] [place] [address] Social History Tobacco Use Types Packs/Day Years [...] Notes * Telephone Encounter - Kandy Espana, STOCKKEEPER - 12/22/2013 8:02 AM EDT Phone contact [...] PM EDT Hospital En[place] [address] 05/14/2024 1:00 PM EDT Office Visit Dermatology at [facility] [address] [place] [address] 08/18/2024 10:00 AM EST Office [place] [address] Alice Carney APRN [facility] [place] [address] 08/18/2024 12:00 PM EST Appointment [place] [address] 12/08/2024 12:00 PM EDT [place]oint[place] [address] documented as of this encounter Visit Diagnoses Not on filedocumented in this encounter Care Teams Propagator Relationship Specialty Start Date End Date Arelis Michele MD [address] [place] [address] PCP - General 11/16/13 06/10/18 documented as of this encounter
--- OUTSIDE RECORDS SUMMARY | 2024-04-24 21:09 | XMS_ITS | Encounter Summary ---
[place] [address] Care Team Providers Care Hematology Technologist Name Role Phone Gloria Espinoza MD Primary Care Provider [phone] Reason for Visit * Reason Onset Date Comments Other 06/26/2013 plan of tx Encounter Details Date Type Department Care Team (Late st Contact Info) Description 06/26/2013 Telephone [place] [address] Emily England RN Other (plan of tx) [...] AM EDT Wesly called and spoke to clerk secretary upset because no one has called [...] PM EDT Hospital Encounter [place] [address] 05/14/2024 1:00 PM EDT Office Visit Dermatology at [facility] [address] [place] [address] 08/18/2024 10:00 AM EST Office [place] [address] [facility] [place] [address] 08/18/2024 12:00 PM EST Appointment [place] [address] 12/08/2024 12:00 PM EDT Appointment [place] [address] documented as of this encounter Visit Diagnoses Not on filedocumented in this encounter Care Teams Hematology Technologist Relationship Specialty Start Date End Date Gloria Espinoza MD HOSPITALIST SERVICES [address] [place] [address] [place] [address] PCP - General 07/25/10 11/08/13 documented as of this encounter
--- OUTSIDE RECORDS SUMMARY | 2024-04-24 21:09 | XMS_ITS | Encounter Summary ---
Author Organization [facility] [place] [address] Care Team Providers Care Pin Game Machine Inspector Name Role Phone Arelis Michele MD Primary Care Provider [phone] Reason for Referral * Consultation (Routine) - Closed Specialty Diagnoses / Procedures Referred By Azam corbett Referred To Contact Med Infusion Diagnoses Rheumatoid arthritis Kandy Espana, RN [facility] [place] [address] [facility] Med Infusion [address] [place] [phone] Referral ID Status Reason Start Date Expiration Date V isits Requested Visits Authorized [id number] Closed Consult, Test & Treat 01/05/2015 01/05/2016 1 1 Encounter Details Date Type Department Care Team (Late st Contact Info) Description 01/05/2015 Orders [place] [address] Kandy Espana, RN [facility] [place] [address] Rheumatoid arthritis Social History Tobacco Use Types [...] PM EDT Hospital Encounter [place] [address] 05/14/2024 1:00 PM EDT Office Visit Dermatology at [place] [address] [place] [address] 08/18/2024 10:00 AM EST Office [place] [address] Alice Carney, [facility] [place] [address] 08/18/2024 12:00 PM EST Appointment [place] [address] 12/08/2024 12:00 PM EDT [place]oint[place] [address] Scheduled Referrals Name Type Priority Associated Diagnoses Orde r Schedule Referral to Infusion Clinic Outpatient Referral Routine Rheumatoid arthritis Ordered: 01/05/2015 documented as of this encounter Visit Diagnoses Diagnosis Rheumatoid arthritis documented in this encounter Care Teams Pin Game Machine Inspector Relationship Specialty Start Date End Date Arelis Michele MD [address] [place] [address] PCP - General 11/16/13 06/10/18 documented as of this encounter
--- OUTSIDE RECORDS SUMMARY | 2024-04-24 21:09 | XMS_ITS | Encounter Summary ---
Author Organization [facility] [place] [address] Care Team Providers Care Moving Picture Operator Name Role Phone Arelis Michele MD Primary Care Provider [phone] Reason for Referral * Consultation (Routine) - Closed Specialty Diagnoses / Procedures Referred By Azam corbett Referred To Contact Diagnoses Skin rash Kandy Espana, RN [facility] [place] [address] Referral ID Status Reason Start Date Expiration Date V isits Requested Visits Authorized [id number] Closed Consult, Test & Treat 03/15/2015 09/11/2015 3 3 Encounter Details Date Type Department Care Team (Late st Contact Info) Description 03/15/2015 11:00 AM EDT [place] [address] Kandy Espana, RN [facility] [place] [address] Rheumatoid arthritis; High risk medication use; Encounter [...] this encounter Progress Notes * Kandy Espana, PRINCIPAL WEB DEVELOPER - 03/15/2015 11:15 AM EDT Established Patient [...] room and TV. Has been out using [employer]. Most happy when at [place] in [place]. Most of life, active physically, feels best when doing something. Reports skin burning at both sides of face, thinks rosacea and using unspecified topical steroid,2/7 days weekly. Previously seen in DERM at [facility]. Hoping to return for re-assessment. Reports no [...] anter ior to ear and lateral cheek, NIGRID. Superficial bruising on arms; + nail dystrophy. [...] DERM referral. ?? Future Rituxan infusions at [facility]. ?? Acknowledged pt commitment to improved well-being [...] Hospital En[place] [address] 05/14/2024 1:00 PM EDT Office Visit Dermatology at [facility] [address] [place] [address] 08/18/2024 10:00 AM EST Office [place] [address] Alice Carney, ITA [facility] [place] [address] 08/18/2024 12:00 PM EST App[place] [address] 12/08/2024 12:00 PM EDT Appoint[place] [address] Scheduled Referrals Name Type Priority Associated Diagnoses [...] eruption documented in this encounter Care Teams Moving Picture Operator Relationship Specialty Start Date End Date Arelis Michele MD [address] [place] [address] PCP - General 11/16/13 06/10/18 documented as of this encounter
--- OUTSIDE RECORDS SUMMARY | 2024-04-24 21:09 | XMS_ITS | Encounter Summary ---
Author Organization [facility] [place] [address] Care Team Providers Care Double Back Operator Name Role Phone Unknown Primary Care Provider Unavailabl e Reason for Visit * Reason Comments Referral Encounter Details Date Type Department Care Team (Late st Contact Info) Description 11/09/2013 10:00 AM EDT Office [place] [address] Robin Dodge MD [facility] [place] [address] Chronic cough; SOB (shortness of breath); Post-nasal [...] the instructions. Here is your activation code: [email or web address] Expires: 12/24/2013 9:48 AM Remember, myD-H is NOT for urgent needs! Always dial 911 for medical emergencies. documented in this encounter Progress Notes * Robin Dodge MD - 11/09/2013 11:07 AM EDT PROBLEMS: Cough; exertional breathlessness. S: Mr. Ybarra is a 63-year-old male seen in consultation as requested by Kandy Espana APRN (Section of Rheumatology - [place], [place]). Mr. Ybarra is accompanied by a [...] care physician, who suggested he try Robitussin [id number]. The patient has used this medication without [...] the chest radiographs performed on 06/17/2013 at [facility]. Lungs are clear. Slight elevation of right hemidiaphragm. Heart size is normal. Pleural space appears normal. I personally viewed pulmonary function tests performed on 06/16/2013, at [facility]. Both FVC and FEV1 are decreased, while FEV1/FVC ratio is normal (77%). Single-breath diffusion capacity is 91% of predicted. I personally viewed flow-volume loop performed on 06/16/2013, which shows no evidence of upper airway obstruction. I personally viewed pulmonary function tests performed on 11/09/2013 at [facility]. FVC 3.6 liters (63% predicted); FEV1 [...] PM EDT Hospital En[place] [address] 05/14/2024 1:00 PM EDT Office Visit Dermatology at [address] [address] 08/18/2024 10:00 AM EST Office [place] [address] Alice Carney, OCULAR CARE AIDE [facility] [place] [address] 08/18/2024 12:00 PM EST Appointment [place] [address] 12/08/2024 12:00 PM EDT [place] [address] documented as of this encounter Results * [...] breath documented in this encounter Care Teams Double Back Operator Relationship Specialty Start Date End Date Unknown None PCP - General 11/09/13 11/15/13 documented as of this encounter
--- OUTSIDE RECORDS SUMMARY | 2024-04-24 21:09 | XMS_ITS | Encounter Summary ---
[place] [address] Care Team Providers Care Senior Sales Operations Manager Name Role Phone Kamila Rodney MD Primary Care Provider [phone] Reason for Referral * Consultation (Routine) - Closed Specialty Diagnoses / Procedures Referred By Azam corbett Referred To Contact Pulmonology Diagnoses Dry cough Kandy Espana, RN [facility] [place] [address] [facility] [place] Pulmonology [address] [place] [phone] Referral ID Status Reason Start Date Expiration Date V isits Requested Visits Authorized [id number] Closed Consult, Test & Treat 08/11/2013 02/07/2014 1 1 Reason for Visit * Reason Comments Follow-up Encounter Details Date Type Department Care Team (Late st Contact Info) Description 08/11/2013 1:45 PM EST [place] [address] Kandy Espana, RN [facility] [place] [address] Rheumatoid arthritis; High risk medication [...] Patient Instructions * Patient Instructions* Kandy Espana, MEDICAL FILE CLERK - 08/11/2013 3:05 PM EST ?? Referral [...] Prevnar 13 vaccine - provided today - [facility] handout (patient). No AE. ?? Will review [...] PM EDT Hospital En[place] [address] 05/14/2024 1:00 PM EDT Office Visit Dermatology at [facility] [address] [place] [address] 08/18/2024 10:00 AM EST Office [place] [address] Alice Carney APRN [facility] [place] [address] 08/18/2024 12:00 PM EST Appointment [place] [address] 12/08/2024 12:00 PM EDT Appoint[place] [address] Scheduled Referrals Name Type Priority Associated Diagnoses [...] abnormality documented in this encounter Care Teams Senior Sales Operations Manager Relationship Specialty Start Date End Date Kamila Rodney MD HOSPITALIST SERVICES [address] [place] [address] [place] [address] PCP - General 07/25/10 11/08/13 documented as of this encounter
--- OUTSIDE RECORDS SUMMARY | 2024-04-24 21:10 | XMS_ITS | Encounter Summary ---
Author Organization [facility] [place] [address] Care Team Providers Care Catalyst Supervisor Name Role Phone Gloria Espinoza MD Primary Care Provider [phone] Reason for Visit * Reason Comments Eye Problem Patient here for 2 m [facility] lid check Encounter Details Date Type Department Care Team (Late st Contact Info) Description 06/17/2012 10:00 AM EDT [place] [address] Uriah dOonnell MD [facility] [place] [address] Tom Liang MD [facility] [place] [address] Burning sensation in eye Discharge Disposition: Home [...] Hospital [place] [address] 05/14/2024 1:00 PM EDT Office Visit Dermatology at [address] [address] 08/18/2024 10:00 AM EST Office [place] [address] Alice Carney APRN [facility] [place] [address] 08/18/2024 12:00 PM EST Appointment [place] [address] 12/08/2024 12:00 PM EDT [place]oint[place] [address] documented as of this encounter Visit Diagnoses Diagnosis Burning sensation in eye Other ill-defined disorder of eye documented in this encounter Care Teams Catalyst Supervisor Relationship Specialty Start Date End Date Gloria Espinoza MD HOSPITALIST SERVICES [address] [place] [address] [place] [address] PCP - General 07/25/10 11/08/13 documented as of this encounter
--- OUTSIDE RECORDS SUMMARY | 2024-04-24 21:10 | XMS_ITS | Encounter Summary ---
Author Organization [facility] [place] [address] Care Team Providers Care Retail Parts Professional Name Role Phone Gloria Espinoza MD Primary Care Provider [phone] Reason for Visit * Reason Comments Follow-up Encounter Details Date Type Department Care Team (Late st Contact Info) Description 07/21/2012 11:45 AM EST [place] [address] Kandy Espana, RN [facility] [place] [address] Dry eyes (Primary Dx); Dry mouth; Rheumatoid [...] 1:49 PM EST ?? Referral to Podiatry [facility]. ?? Continue with current plan of care [...] (SURECLIK) -> Advised patient he may contact residential team leader to alert to device failure (Replacment). See [...] fluticasone (FLONASE) 50 mcg/Actuation nasal spray 2 Crumrod(s), Nasal, Once daily Allergies Allergen Reactions ??? [...] blepharitis, osteopenia. PLAN: ?? Referral to Podiatry [facility]. ?? Continue with current plan of care [...] Hospital En[place] [address] 05/14/2024 1:00 PM EDT Office Visit Dermatology at [facility] [address] [place] [address] 08/18/2024 10:00 AM EST Office [place] [address] Alice Carney APRN [facility] [place] [address] 08/18/2024 12:00 PM EST Appointment Med Infusion at [facility] [place] [address] 12/08/2024 12:00 PM EDT Appoint[place] [address] documented as of this encounter [...] EST Eusebio Espinosa MD [facility]ATOLOG[facility]ABLE [facility] * BUN (07/21/2012 1:14 PM EST) Blood Urea Nitrogen 18 10 - 20 mg/dL CERNER MILLENNIUM Blood specimen (specimen) 07/21/2012 1:14 PM EST 07/21/2012 1:33 PM EST Narrative Resulting Agency Comment Spec In Lab Eusebio Espinosa MD CHEMISTRY ORDERABLES [facility] MILLENNIUM * Hepatic Function Panel (07/21/2012 1:14 [...] In Lab Eusebio Espinosa MD CHEMISTRY ORDERABLES [facility] * Creatinine, serum (07/21/2012 1:14 PM EST) Creatinine 0.93 0.80 - 1.50 mg/dL [facility] Comment: Please note that the pediatric reference intervals supplied above were not validated at [facility]. Results from pediatric patients should be interpreted in conjunction to the patient's age, height and muscle mass. Est Glomerular Filtration Rate >60 >=60 [facility] Comment: The National Kidney Disease [...] CERNER MILLENNIUM * (ABNORMAL) CBC (with Diff) (07/21/2012 1:14 [...] Lab Eusebio Espinosa MD HEMATOLOGY ORDERABLE S [facility] MILLENNIUM documented in this encounter Visit Diagnoses Diagnosis Dry eyes- Primary Tear film insufficiency, unspecified Dry mouth Disturbance of salivary secretion Rheumatoid arthritis(714.0) Rheumatoid arthritis Encounter for long-term (current) use of other medications documented in this encounter Care Teams Retail Parts Professional Relationship Specialty Start Date End Date Gloria Espinoza MD HOSPITALIST SERVICES [address] [place] [address] [place] [address] PCP - General 07/25/10 11/08/13 documented as of this encounter
--- OUTSIDE RECORDS SUMMARY | 2024-04-24 21:10 | XMS_ITS | Encounter Summary ---
Author Organization [facility] [place] [address] Care Team Providers Care Computer Network Specialist Name Role Phone Gloria Espinoza MD Primary Care Provider [phone] Reason for Visit * Reason Comments Rheumatoid Arthritis Encounter Details Date Type Department Care Team (Late st Contact Info) Description 07/16/2011 1:45 PM EST [place] [address] Kandy Espana, RN [facility] [address] [place] [address] Encounter for long-term (current) use of other [...] with resolution of heartburn symptoms. 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 housekeeper caregiver for left lower backpain s/p fall from [...] PM EDT Hospital En[place] [address] 05/14/2024 1:00 PM EDT Office Visit Dermatology at [place] [address] [place] [address] 08/18/2024 10:00 AM EST Office [place] [address] Alice Carney APRN [facility] [place] [address] 08/18/2024 12:00 PM EST Appointment [place] [address] 12/08/2024 12:00 PM EDT Appoint[place] [address] documented as of this encounter Procedures Procedure [...] EST Doe Obrien MD HEMATOLOGY ORDERA BLES [facility]ER[facility] NEGRETEENNI[facility] * High Sensitivity CRP (07/16/2011 2:44 PM EST) C-Reactive Protein High Sensitivity 1.8 mg/L [facility] Comment: Interpretations: 1) For cardiac risk assessment, [...] Obrien MD CHEMISTRY ORDERAB LES [facility] * Creatinine, serum (07/16/2011 2:44 PM EST) Creatinine 0.99 0.80 - 1.50 mg/dL [facility] Est Glomerular Filtration Rate >60 >=60 [facility] Comment: The National Kidney Disease Education Program [...] Obrien MD CHEMISTRY ORDERAB LES [facility] * Hepatic function panel (07/16/2011 2:44 PM [...] MD CHEMISTRY ORDERAB LES Performing Organization Address City/State/[facility] Co de Phone Number CERNER MILLENNIUM * BUN (07/16/2011 2:44 PM EST) Blood Urea Nitrogen 12 10 - 20 mg/dL CERNER MILLENNIUM Blood specimen (specimen) 07/16/2011 2:44 PM EST 07/16/2011 3:07 PM EST Doe Obrien MD CHEMISTRY ORDERAB LES Performing Organization Address City/[facility] Co de Phone Number CERNER MILLENNIUM * (ABNORMAL) CBC (07/16/2011 2:44 [...] PM EST Doe Obrien MD HEMATOLOGY ORDERA JEANINE [facility] documented in this encounter Visit Diagnoses Diagnosis Encounter for long-term (current) use of other medications Rheumatoid arthritis(714.0) Rheumatoid arthritis Cough Chronic SI joint pain Disorders of sacrum documented in this encounter Care Teams Computer Network Specialist Relationship Specialty Start Date End Date Gloria Espinoza MD HOSPITALIST SERVICES [address] [place] [address] [place] [address] PCP - General 07/25/10 11/08/13 documented as of this encounter
--- OUTSIDE RECORDS SUMMARY | 2024-04-24 21:10 | XMS_ITS | Encounter Summary ---
Author Organization [facility] Demetri [place] [address] Care Team Providers Care Production Clerk Name Role Phone Gloria Espinoza MD Primary Care Provider [phone] Reason for Visit * Reason Onset Date Comments Labs Only 02/20/2011 Encounter Details Date Type Department Care Team (Late st Contact Info) Description 02/20/2011 Telephone [place] [address] Kandy Espana, RN [facility] [place] [address] Labs Only Social History Tobacco Use Types [...] PM EDT Hospital Encounter [place] [address] 05/14/2024 1:00 PM EDT Office Visit Dermatology at [address] [place] [address] 08/18/2024 10:00 AM EST Office [place] [address] Alice Carney APRN [facility] [place] [address] 08/18/2024 12:00 PM EST Appointment [place] [address] 12/08/2024 12:00 PM EDT Appointment [place] [address] Scheduled Orders Name Type Priority Associated Diagnoses Orde r Schedule CBC Lab Routine Encounter for long-term (current) use of other medications Every 12 Weeks for 4 Occurrences starting 09/12/2007 until 04/17/2012, 3 completed documented as of this encounter Results * Creatinine, serum (04/08/2012 11:21 AM EDT) [facility] Signature Creatinine 0.84 0.80 - 1.50 mg/dL CARLOS DENNIS Comment: Please note that the pediatric reference intervals supplied above were not validated at [facility]. Results from pediatric patients should be interpreted in conjunction to the patient's age, height and muscle mass. Est Glomerular Filtration Rate >60 >=60 [facility] Comment: The National Kidney Disease Education [...] Lab Doe Obrien MD CHEMISTRY ORDERAB LES [facility] * Hepatic function panel (04/08/2012 11:21 AM [...] MD CHEMISTRY ORDERAB LES CARLOS NEGRETEENNIUM * BUN (04/08/2012 11:21 AM EDT) Blood Urea Nitrogen 10 10 - 20 mg/dL CERNER [employer] Blood specimen (specimen) 04/08/2012 11:21 AM EDT 04/08/2012 11:24 AM EDT Narrative Resulting Agency Comment Spec In Lab Doe Obrien MD CHEMISTRY ORDERAB LES Performing Organization Address City/[facility]/ZIP Co de Phone Number CARLOS NEGRETEENNIUM * Creatinine, serum (01/01/2012 11:03 AM EDT) Creatinine 0.96 0.80 - 1.50 mg/dL CERNER MILLENNIUM Est [...] MD CHEMISTRY ORDERAB LES Performing Organization Address [facility] de Phone Number CARLOS NEGRETEENNIUM * Hepatic function panel (01/01/2012 11:03 AM EDT) Pathologist [facility] Protein, Total 6.9 6.4 - 8.3 gm/dL [...] MD CHEMISTRY ORDERAB LES Performing Organization Address [facility] Co de Phone Number CERFRANKIE NEGRETEENNIUM * BUN (01/01/2012 11:03 AM EDT) Blood Urea Nitrogen 18 10 - 20 mg/dL CERNER MILLENNIUM Blood specimen (specimen) 01/01/2012 11:03 AM EDT 01/01/2012 11:05 AM EDT Narrative Resulting Agency Comment Spec In Lab Doe Obrien MD CHEMISTRY ORDERAB LES Performing Organization Address City/[facility]/ZIP Co de Phone Number CERNER MILLENNIUM [...] MD HEMATOLOGY ORDERA BLES CERFRANKIE NEGRETEENNIUM * Creatinine, serum (07/16/2011 2:44 PM EST) [...] Doe Obrien MD CHEMISTRY ORDERAB LES [facility]ER[facility] MILLENNIUM * Hepatic function panel (07/16/2011 [...] MD HEMATOLOGY ORDERA BLES Performing Organization Address City/[facility] Co de Phone Number CARLOS DENNIS * Creatinine, serum (04/17/2011 1:01 PM EDT) Creatinine 0.93 0.80 - 1.50 mg/dL [facility] Est Glomerular Filtration Rate >60 >=60 [facility] Comment: The National Kidney Disease [...] MD CHEMISTRY ORDERAB LES Performing Organization Address City/[facility]/ZIP Co de Phone Number CARLOS NEGRETEDatezrMARVA * Hepatic function panel (04/17/2011 1:01 PM EDT) Pathologist [facility] Protein, Total 6.4 6.4 - 8.3 gm/dL [...] MD CHEMISTRY ORDERAB LES Performing Organization Address City/[facility] Co de Phone Number [facility] MILLENNIUM * BUN (04/17/2011 1:01 PM EDT) Pathologist [facility] Blood Urea Nitrogen 14 10 - 20 mg/dL CERNER MILLENNIUM Blood specimen (specimen) 04/17/2011 1:01 PM EDT 04/17/2011 1:15 PM EDT Doe Obrien MD CHEMISTRY ORDERAB LES Performing Organization Address City/State/[facility] Co de Phone Number [facility] PENELOPEEN[facility] * (ABNORMAL) CBC (04/17/2011 1:01 PM EDT) Pathologist [facility] White Blood Cell 10.1(H) 4.0 - 10.0 [...] Hemoglobin Concentration 34.7 32.0 - 36.5 gm/dL [facility] MILLENNIUM Platelet 229 145 - 370 x10(3)/mc L [facility] PENELOPEENNIUM RDW Standard Deviation 49.9(H) 35.0 - 46.0 fL [facility] MILLENNIUM RDW coefficient of variation 15.2(H) 10.9 - 14.4 % CERFRANKIE NEGRETEENNIUM Mean Platelet Volume 9.5 9.0 - 12.0 fL CARLOS NEGRETEENNIUM Blood specimen (specimen) 04/17/2011 1:01 PM EDT 04/17/2011 1:15 PM EDT Doe Obrien MD HEMATOLOGY ORDERA BLES [facility] documented in this encounter Visit Diagnoses Diagnosis Encounter for long-term (current) use of other medications- Primary documented in this encounter Care Teams Production Clerk Relationship Specialty Start Date End Date Gloria Espinoza MD HOSPITALIST SERVICES [address] [place] [address] [place] [address] PCP - General 07/25/10 11/08/13 documented as of this encounter
--- OUTSIDE RECORDS SUMMARY | 2024-04-24 21:10 | XMS_ITS | Encounter Summary ---
Author Organization [facility] [place] [address] Care Team Providers Care It Data Architect Name Role Phone Gloria Espinoza MD Primary Care Provider [phone] Encounter Details Date Type Department Care Team (Late st Contact Info) Description 01/17/2011 Orders [place] [address] Kandy Espana, RN [facility] [place] [address] Encounter for long-term (current) use of other [...] PM EDT Hospital Encounter [place] [address] 05/14/2024 1:00 PM EDT Office Visit Dermatology at [facility] [address] [place] [address] 08/18/2024 10:00 AM EST Office [place] [address] Alice Carney, EVENTS SPECIALIST [facility] [place] [address] 08/18/2024 12:00 PM EST Appointment Med Infusion at [facility] [place] [address] 12/08/2024 12:00 PM EDT Appointment Med Infusion at [facility] [place] [address] documented as of this encounter Results * Creatinine, serum (01/17/2011 11:21 AM EDT) Creatinine 0.91 0.80 - 1.50 mg/dL CERNER MILLENNIUM Est Glomerular Filtration Rate >60 >=60 CERNER [employer] Comment: The National Kidney Disease Education Program [...] EDT Jennifer Hawley DO CHEMISTRY ORDERA BLES CERNER MILLENNIUM * BUN (01/17/2011 11:21 AM EDT) Blood Urea Nitrogen 13 10 - 20 mg/dL CERNER MILLENNIUM Blood specimen (specimen) 01/17/2011 11:21 AM EDT 01/17/2011 11:36 AM EDT Jennifer Hawley DO CHEMISTRY ORDERA BLES Performing Organization Address [facility] Co de Phone Number CERNER MILLENNIUM * Sedimentation rate, automated (01/17/2011 11:21 AM EDT) Sedimentation Rate Automated 6 0 - 15 mm/hr CERNER MILLENNIUM Blood specimen (specimen) 01/17/2011 11:21 AM EDT 01/17/2011 11:36 AM EDT Jennifer Hawley DO HEMATOLOGY ORDER DARIAN Performing Organization Address [facility] de Phone Number CERNER MILLENNIUM * Hepatic [...] DO CHEMISTRY ORDERA BLES Performing Organization Address [facility] Co de Phone Number CERChartITrightIUM * (ABNORMAL) CBC (01/17/2011 11:21 AM EDT) [...] AM EDT Jennifer Hawley DO HEMATOLOGY ORDER DARAIN Performing Organization Address [facility] Co de Phone Number CARLOS NEGRETEComply365MARVA * CRP - High sensitivity (01/17/2011 11:21 [...] AM EDT Jennifer Hawley DO CHEMISTRY ORDERA [facility] Performing Organization Address City/State/[facility] Co mo Phone Number [facility] documented in this encounter Visit Diagnoses Diagnosis Encounter for long-term (current) use of other medications- Primary documented in this encounter Care Teams It Data Architect Relationship Specialty Start Date End Date Gloria Espinoza MD HOSPITALIST SERVICES [address] [place] [address] [place] [address] PCP - General 07/25/10 11/08/13 documented as of this encounter
--- OUTSIDE RECORDS SUMMARY | 2024-04-24 21:10 | XMS_ITS | Encounter Summary ---
Author Organization [facility] [place] [address] Care Team Providers Care Home Office Representative Name Role Phone Gloria Espinoza MD Primary Care Provider [phone] Encounter Details Date Type Department Care Team (Late st Contact Info) Description 07/21/2012 Orders [place] [address] Kandy Espana, RN [facility] [place] [address] Social History Tobacco Use Types Packs/Day Years [...] PM EDT Hospital Encounter [place] [address] 05/14/2024 1:00 PM EDT Office Visit Dermatology at [facility] [address] [place] [address] 08/18/2024 10:00 AM EST Office [place] [address] Alice Carney APRN [facility] [place] [address] 08/18/2024 12:00 PM EST Appointment [place] [address] 12/08/2024 12:00 PM EDT Appointment [place] [address] documented as of this encounter Visit Diagnoses Not on filedocumented in this encounter Care Teams Home Office Representative Relationship Specialty Start Date End Date Gloria Espinoza MD HOSPITALIST SERVICES [address] [place] [address] [place] [address] PCP - General 07/25/10 11/08/13 documented as of this encounter
--- OUTSIDE RECORDS SUMMARY | 2024-04-24 21:10 | XMS_ITS | Encounter Summary ---
Author Organization [facility] Address [facility] [place] [address] Care Team Providers Care Manager Medical Writing Name Role Phone Gloria Espinoza MD Primary Care Provider [phone] Encounter Details Date Type Department Care Team (Late st Contact Info) Description 04/17/2011 3:14 PM EDT - 04/17/2011 11:59 PM EDT Hospital Encounter XRay at [address] [place] [address] Social History Tobacco Use Types Packs/Day Years [...] fluticasone (FLONASE) 50 mcg/Actuation nasal spray 2 Rosamond(s), Nasal, Once daily 11/02/2010 01/12/2013 documented as of this encounter Plan of Treatment Upcoming Encounters Date Type Department Care Team (Late st Contact Info) Description 04/28/2024 12:00 PM EDT Hospital Encounter [place] [address] 05/14/2024 1:00 PM EDT Office Visit Dermatology at [address] [address] 08/18/2024 10:00 AM EST Office [place] [address] Alice Carney APRN [facility] [place] [address] 08/18/2024 12:00 PM EST Appointment [place] [address] 12/08/2024 12:00 PM EDT Appointment [place] [address] documented as of this encounter Visit Diagnoses Not on filedocumented in this encounter Care Teams Manager Medical Writing Relationship Specialty Start Date End Date Gloria Espinoza MD HOSPITALIST SERVICES [address] [place] [address] [place] [address] PCP - General 07/25/10 11/08/13 documented as of this encounter
--- OUTSIDE RECORDS SUMMARY | 2024-04-24 21:10 | XMS_ITS | Encounter Summary ---
Author Organization [facility] [place] [address] Care Team Providers Care Milk Vendor Name Role Phone Gloria Espinoza MD Primary Care Provider [phone] Reason for Referral * Consultation (Routine) - Closed by system - unspecified Specialty Diagnoses / Procedures Referred By Azam corbett Referred To Contact Podiatry Diagnoses Foot pain Kandy Espana, RN [facility] [place] [address] Referral ID Status Reason Start Date Expiration Date Visits Requested Visits Authorized [id number] Closed by system - unspecified Consult, Test & Treat 10/22/2012 04/20/2013 1 1 Reason for Visit * Reason Comments Rheumatoid Arthritis Encounter Details Date Type Department Care Team (Late st Contact Info) Description 10/22/2012 11:45 AM EST [place] [address] Kandy Espana RN [facility] [place] [address] Encounter for long-term (current) use of other [...] this encounter Progress Notes * Kandy Espana, ARC WELDING MACHINE OPERATOR - 10/22/2012 11:51 AM EST Established Patient [...] italics. ?? Referral to Podiatry [facility]. Not completed - will recontact. ?? Continue [...] fluticasone (FLONASE) 50 mcg/Actuation nasal spray 2 [place](s), Nasal, Once daily Allergies Allergen Reactions ??? [...] PLAN: ?? Referral to Podiatry [facility]. ?? Continue with current plan of care [...] PM EDT Hospital [place] [address] 05/14/2024 1:00 PM EDT Office Visit Dermatology at [facility] [address] [place] [address] 08/18/2024 10:00 AM EST [place] [address] Alice Carney APRN [facility] [place] [place] [address] 08/18/2024 12:00 PM EST [place] [address] 12/08/2024 12:00 PM EDT [place] [address] Scheduled Referrals Name Type Priority Associated Diagnoses [...] 12:58 PM EST Analilia Fuchs MD HEMATOLOGY [facility] Organization Address City/State/ZIP Co de Phone Number CERNER MILLENNIUM * Hepatic Function Panel (10/22/2012 12:46 PM [...] CHEMISTRY ORDERAB LES CERNER MILLENNIUM * BUN (10/22/2012 12:46 PM EST) Blood Urea Nitrogen 11 10 - 20 mg/dL CERNER MILLENNIUM Blood specimen (specimen) 10/22/2012 12:46 PM EST 10/22/2012 12:58 PM EST Narrative Resulting Agency Comment Spec In Lab Analilia Fuchs MD CHEMISTRY ORDERAB LES CERNER MILLENNIUM * (ABNORMAL) Creatinine (10/22/2012 12:46 PM EST) Creatinine 0.79(L) 0.80 - 1.50 mg/dL CERNER MILLENNIUM Comment: [...] Platelet 274 145 - 370 x10(3)/mc L CERFRANKIE MILLENNIUM RDW Standard Deviation 49.2(H) 35.0 - 46.0 fL CERFRANKIE MILLENNIUM RDW coefficient of variation 14.5(H) 10.9 - 14.4 % CARLOS MILLENNIUM Mean Platelet Volume 10.1 9.0 - 12.0 fL CARLOS NEGRETEENNIUM Blood specimen (specimen) 10/22/2012 12:46 PM EST 10/22/2012 12:58 PM EST Narrative Resulting Agency Comment Spec In Lab Analilia Fuchs MD HEMATOLOGY ORDERA BLES CARLOS DENNIS documented in this encounter Visit Diagnoses Diagnosis Encounter for long-term (current) use of other medications- Primary Foot pain Pain in limb Rheumatoid arthritis(714.0) Rheumatoid arthritis High risk medication use Encounter for long-term (current) use of other medications documented in this encounter Care Teams Milk Vendor Relationship Specialty Start Date End Date Gloria Espinoza MD HOSPITALIST SERVICES [address] [place] [address] [place] [address] PCP - General 07/25/10 11/08/13 documented as of this encounter
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
--- OUTSIDE RECORDS SUMMARY | 2024-04-24 21:10 | XMS_ITS | Encounter Summary ---
Author Organization [facility] [place] [address] Care Team Providers Care Rate Quoting Operator Name Role Phone Gloria Espinoza MD Primary Care Provider [phone] Encounter Details Date Type Department Care Team (Late st Contact Info) Description 01/30/2011 Orders [place] [address] Kandy Espana, RN [facility] [place] [address] RA (rheumatoid arthritis) (Primary Dx) Social History [...] PM EDT Hospital [place] [address] 05/14/2024 1:00 PM EDT Office Visit Dermatology at [facility] [address] [place] [address] 08/18/2024 10:00 AM EST [place] [address] Alice Carney, SPECIALTY DEPARTMENT SUPERVISOR [facility] [place] [address] 08/18/2024 12:00 PM EST [place] [address] 12/08/2024 12:00 PM EDT [place] [address] documented as of this encounter Visit Diagnoses Diagnosis RA (rheumatoid arthritis)- Primary Rheumatoid arthritis documented in this encounter Care Teams Rate Quoting Operator Relationship Specialty Start Date End Date Gloria Espinoza MD HOSPITALIST SERVICES [address] [place] [address] [place] [address] PCP - General 07/25/10 11/08/13 documented as of this encounter
--- OUTSIDE RECORDS SUMMARY | 2024-04-24 21:10 | XMS_ITS | Encounter Summary ---
Author Organization [facility] [place] [address] Care Team Providers Care Radiator Specialist Name Role Phone Gloria Espinoza MD Primary Care Provider [phone] Encounter Details Date Type Department Care Team (Late st Contact Info) Description 01/23/2011 Orders [place] [address] Kandy Espana, RN [facility] [place] [address] Osteopenia (Primary Dx) Social History Tobacco Use [...] PM EDT Hospital Encounter [place] [address] 05/14/2024 1:00 PM EDT Office Visit Dermatology at [facility] [address] [place] [address] 08/18/2024 10:00 AM EST Office [place] [address] Alice Carney, SOURCING ASSISTANT [facility] [place] [address] 08/18/2024 12:00 PM EST Appointment [place] [address] 12/08/2024 12:00 PM EDT Appointment [place] [address] documented as of this encounter Visit Diagnoses Diagnosis Osteopenia- Primary Disorder of bone and cartilage, unspecified documented in this encounter Care Teams Radiator Specialist Relationship Specialty Start Date End Date Gloria Espinoza MD HOSPITALIST SERVICES [address] [place] [address] [place] [address] PCP - General 07/25/10 11/08/13 documented as of this encounter
--- OUTSIDE RECORDS SUMMARY | 2024-04-24 21:10 | XMS_ITS | Encounter Summary ---
Author Organization [facility] [place] [address] Care Team Providers Care Outside Salesman Name Role Phone Gloria Espinoza MD Primary Care Provider [phone] Reason for Visit * Reason Onset Date Comments Advice Only 02/05/2011 Encounter Details Date Type Department Care Team (Late st Contact Info) Description 02/05/2011 Telephone [place] [address] Kandy Espana, RN [facility] [place] [address] Advice Only Social History Tobacco Use Types [...] Espana APRN - 02/05/2011 9:09 AM EDT [facility] DXA report DOS: 02/02/2011 FINDINGS: T score: -2.0 LS and T score: -0.7 left hip total CONCLUSION: Consistent w/osteopenia. Vertebral compression FX T 12. Plan: Review w/patient at follow up. documented in this encounter Plan of Treatment Upcoming Encounters Date Type Department Care Team (Late st Contact Info) Description 04/28/2024 12:00 PM EDT Hospital Encounter [place] [address] 05/14/2024 1:00 PM EDT Office Visit Dermatology at [facility] [address] [place] [address] 08/18/2024 10:00 AM EST Office Visit [place] [address] Alice Carney, [facility] [place] [address] 08/18/2024 12:00 PM EST Appointment [place] [address] 12/08/2024 12:00 PM EDT Appointment [place] [address] documented as of this encounter Visit Diagnoses Not on filedocumented in this encounter Care Teams Outside Salesman Relationship Specialty Start Date End Date Gloria Espinoza MD HOSPITALIST SERVICES [address] [place] [address] [place] [address] PCP - General 07/25/10 11/08/13 documented as of this encounter
--- OUTSIDE RECORDS SUMMARY | 2024-04-24 21:10 | XMS_ITS | Encounter Summary ---
[place] [address] Care Team Providers Care Starch Cooker Name Role Phone Gloria Espinoza MD Primary Care Provider [phone] Reason for Visit * Reason Onset Date Comments Other 02/04/2013 enbrel Encounter Details Date Type Department Care Team (Late Contact Info) Description 02/04/2013 Telephone [place] [address] Emily England RN Other (enbrel) [...] PM EDT Hospital En[place] [address] 05/14/2024 1:00 PM EDT Office Visit Dermatology at [facility] [address] [place] [address] 08/18/2024 10:00 AM EST Office [place] [address] [facility] [place] [address] 08/18/2024 12:00 PM EST Appointment [place] [address] 12/08/2024 12:00 PM EDT Appointment [place] [address] documented as of this encounter Visit Diagnoses Not on filedocumented in this encounter Care Teams Starch Cooker Relationship Specialty Start Date End Date Gloria Espinoza MD HOSPITALIST SERVICES [address] [place] [address] [place] [address] PCP - General 07/25/10 11/08/13 documented as of this encounter
--- OUTSIDE RECORDS SUMMARY | 2024-04-24 21:10 | XMS_ITS | Encounter Summary ---
Author Organization [facility] [place] [address] Care Team Providers Care Delivery Engineer Name Role Phone Gloria Espinoza MD Primary Care Provider [phone] Reason for Visit * Reason Onset Date Comments Medication Refill 02/03/2013 Encounter Details Date Type Department Care Team (Late st Contact Info) Description 02/03/2013 [place] [address] Kandy Espana, RN [facility] DR [place] [address] Social History Tobacco Use Types Packs/Day Years [...] PM EDT Hospital [place] [address] 05/14/2024 1:00 PM EDT Office Visit Dermatology at [facility] [address] [place] [address] 08/18/2024 10:00 AM EST [place] [address] Alice Carney APRN [facility] [place] [address] 08/18/2024 12:00 PM EST [place] [address] 12/08/2024 12:00 PM EDT [place] [address] documented as of this encounter Visit Diagnoses Not on filedocumented in this encounter Care Teams Delivery Engineer Relationship Specialty Start Date End Date Gloria Espinoza MD HOSPITALIST SERVICES [address] [place] [address] [place] [address] PCP - General 07/25/10 11/08/13 documented as of this encounter
--- OUTSIDE RECORDS SUMMARY | 2024-04-24 21:10 | XMS_ITS | Encounter Summary ---
Author Organization [facility] [place] [address] Care Team Providers Care Service Electrician Name Role Phone Gloria Espinoza MD Primary Care Provider [phone] Reason for Visit * Reason Onset Date Comments Prior Authorization 01/16/2013 ENBREL-APPRO [place] Encounter Details Date Type Department Care Team (Late st Contact Info) Description 01/16/2013 Telephone [place] [address] Jarvis Espana, RN [facility] [place] [address] Prior Authorization (ENBREL-APPROVED) Social History Tobacco Use [...] Rationale for request: RA Health plan: [employer] ID#[id number] Authorizing vaccine customer representative name: APPROVAL FAXED TO OFFICE Faxed to health plan on: 01/16/13 Health plan decision: Approved Quantity approved: 12/28 Authorization number: [id number] Start date: 01/13/13 End date: 01/13/14 Patient notified? yes Pharmacy notified? yes documented in this encounter Plan of Treatment Upcoming Encounters Date Type Department Care Team (Late st Contact Info) Description 04/28/2024 12:00 PM EDT Hospital Encounter [place] [address] 05/14/2024 1:00 PM EDT Office Visit Dermatology at [place] [address] [place] [address] 08/18/2024 10:00 AM EST Office [place] [address] Alice Carney, [facility] [place] [address] 08/18/2024 12:00 PM EST Appointment [place] [address] 12/08/2024 12:00 PM EDT [place]oint[place] [address] documented as of this encounter Visit Diagnoses Not on filedocumented in this encounter Care Teams Service Electrician Relationship Specialty Start Date End Date Gloria Espinoza MD HOSPITALIST SERVICES [address] [place] [address] [place] [address] PCP - General 07/25/10 11/08/13 documented as of this encounter
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
--- OUTSIDE RECORDS SUMMARY | 2024-04-24 21:10 | XMS_ITS | Encounter Summary ---
Author Organization Formerly [facility] [place] [address] Care Team Providers Care Health Science Instructor Name Role Phone Gloria Espinoza MD Primary Care Provider [phone] Reason for Visit * Reason Comments Rheumatoid Arthritis Encounter Details Date Type Department Care Team (Late st Contact Info) Description 02/19/2011 1:45 PM EDT [place] [address] Kandy Espana, RN [facility] [place] [address] Rheumatoid arthritis (Primary Dx); Encounter for long-term [...] PM EDT Hospital [place] [address] 05/14/2024 1:00 PM EDT Office Visit Dermatology at [facility] [address] [place] [address] 08/18/2024 10:00 AM EST Office [place] [address] Alice Carney APRN [facility] [place] [address] 08/18/2024 12:00 PM EST App[place]ment [place] [address] 12/08/2024 12:00 PM EDT Appointment Med Infusion at [facility] [place] [address] documented as of this encounter Procedures Procedure Name Priority Date/Time Associated Diagnosis Comments SEDIMENTATION RATE Routine 02/19/2011 1: 52 PM EDT Rheumatoid arthritis CRP, CARDIAC RISK (HS CRP) Routine 02/19/2011 1:52 PM EDT Rheumatoid arthritis documented in this encounter Results * Sedimentation rate (02/19/2011 1:52 PM EDT) [facility] Sedimentation Rate Automated 6 0 - 15 mm/hr [facility] [employer] Blood specimen (specimen) 02/19/2011 1:52 PM EDT 02/19/2011 1:59 PM EDT Luke Metcalf MD HEMATOLOGY ORDERABL ES [facility] [employer] * High Sensitivity CRP (02/19/2011 1:52 PM EDT) [facility] C-Reactive Protein High Sensitivity 1.1 mg/L [facility] Comment: Interpretations: 1) For cardiac risk [...] 1:52 PM EDT 02/19/2011 1:59 PM EDT Lkue Metcalf MD CHEMISTRY ORDERABLE S Performing Organization Address City/State/[facility] Co dc Phone Number [facility] documented in this encounter Visit Diagnoses Diagnosis Rheumatoid arthritis(714.0)- Primary Rheumatoid arthritis Encounter for long-term (current) use of other medications documented in this encounter Care Teams Health Science Instructor Relationship Specialty Start Date End Date Gloria Espinoza MD HOSPITALIST SERVICES [address] [place] [address] [place] [address] PCP - General 07/25/10 11/08/13 documented as of this encounter
--- OUTSIDE RECORDS SUMMARY | 2024-04-24 21:10 | XMS_ITS | Encounter Summary ---
Author Organization Formerly [facility] [place] [address] Care Team Providers Care Gas Furnace Installer Name Role Phone Gloria Espinoza MD Primary Care Provider [phone] Reason for Visit * Reason Comments Medication Refill Encounter Details Date Type Department Care Team (Late st Contact Info) Description 03/31/2013 [place] [phone] Kandy Espana, RN [facility] [place] [address] Social History Tobacco Use Types Packs/Day Years [...] PM EDT Hospital En[place] [address] 05/14/2024 1:00 PM EDT Office Visit Dermatology at [facility] [address] [place] [address] 08/18/2024 10:00 AM EST Office [place] [address] Alice Carney, ITA [facility] [place] [address] 08/18/2024 12:00 PM EST [place] [address] 12/08/2024 12:00 PM EDT [place]oint[place] [address] documented as of this encounter Visit Diagnoses Not on filedocumented in this encounter Care Teams Gas Furnace Installer Relationship Specialty Start Date End Date Gloria Espinoza MD HOSPITALIST SERVICES [address] [place] [address] [place] [address] PCP - General 07/25/10 11/08/13 documented as of this encounter
--- OUTSIDE RECORDS SUMMARY | 2024-04-24 21:10 | XMS_ITS | Encounter Summary ---
Author Organization [facility] [place] [address] Care Team Providers Care Railroad Crossing Protection Maintainer Name Role Phone Gloria Espinoza MD Primary Care Provider [phone] Reason for Referral * Physical Therapy (Routine) - Closed by system - unspecified Specialty Diagnoses / Procedures Referred By Contac t Referred To Contact Physical Therapy Diagnoses Knee pain Kandy Espana, RN [facility] [place] [address] Referral ID Status Reason Start Date Expiration Date Visits Requested Visits Authorized [id number] Closed by system - unspecified Evaluate and Treat 04/17/2011 10/14/2011 1 1 Reason for Visit * Reason Comments Rheumatoid Arthritis Encounter Details Date Type Department Care Team (Late st Contact Info) Description 04/17/2011 2:20 PM EDT [place] [address] Kandy Espana, RN [facility] [place] [address] Encounter for long-term (current) use of other [...] * Patient Instructions* Kandy Espana APRN - 04/17/2011 8:00 PM EDT [...] upset. 4. Bilateral knee xray - PT ([place] -> strengthening) 5. Office contact for joint [...] Progress Notes * Kandy Espana APRN - 04/17/2011 8:26 PM EDTAddended by: KANDY ESPANA on: 04/17/2011 Modules accepted: Orders * Kandy Espana APRN - 04/17/2011 2:57 PM EDT [...] heartburn symptoms. Continues to be followed by Customs Entry Clerk for dry eyes - using wash for [...] upset. 4. Bilateral knee xray - PT ([place] -> strengthening) 5. Office contact for joint [...] PM EDT Hospital En[place] [address] 05/14/2024 1:00 PM EDT Office Visit Dermatology at [address] [place] [address] 08/18/2024 10:00 AM EST Office [place] [address] Alice Carney APRN [facility] [place] [address] 08/18/2024 12:00 PM EST [place] [address] 12/08/2024 12:00 PM EDT [place] [address] Scheduled Referrals Name Type Priority Associated Diagnoses [...] High Sensitivity CRP (07/16/2011 2:44 PM EST) [facility] C-Reactive Protein High Sensitivity 1.8 mg/L [facility] Comment: Interpretations: 1) For cardiac [...] CHEMISTRY ORDERAB LES CERNER MILLENNIUM * (ABNORMAL) REFLEX LAB-A-DIFF (04/17/2011 1:01 PM [...] EDT Doe Obrien MD HEMATOLOGY ORDERA BLES CERNER MILLENNIUM * Creatinine, serum (04/17/2011 1:01 PM EDT) Creatinine 0.93 0.80 - 1.50 mg/dL [facility] Est Glomerular Filtration Rate >60 >=60 [facility] Comment: The National Kidney Disease Education Program [...] EDT Doe Obrien MD CHEMISTRY ORDERAB LES CARLOS DENNIS * Hepatic function panel (04/17/2011 1:01 PM EDT) Protein, Total 6.4 6.4 - 8.3 gm/dL [facility] Albumin 4.1 3.2 - 5.2 gm/dL CERNER [...] EDT Doe Obrien MD CHEMISTRY ORDERAB LES CERNER MILLENNIUM * BUN (04/17/2011 1:01 PM EDT) Blood Urea Nitrogen 14 10 - 20 mg/dL CERNER MILLENNIUM Blood specimen (specimen) 04/17/2011 1:01 PM EDT 04/17/2011 1:15 PM EDT Doe Obrien MD CHEMISTRY ORDERAB LES CERFRANKIE NEGRETEENNIUM * CRP - High sensitivity (04/17/2011 1:01 PM EDT) Pathologist [facility] C-Reactive Protein High Sensitivity 3.2 mg/L CERNER MILLENNIUM Comment: Interpretations: 1) For [...] EDT Doe Obrien MD CHEMISTRY ORDERAB LES CERNER MILLENNIUM * (ABNORMAL) CBC (04/17/2011 1:01 [...] Doe Obrien MD HEMATOLOGY ORDERA BLES [facility] documented in this encounter Visit Diagnoses Diagnosis Encounter for long-term (current) use of other medications- Primary Knee pain Pain in joint, lower leg Rheumatoid arthritis(714.0) Rheumatoid arthritis Osteopenia Disorder of bone and cartilage, unspecified documented in this encounter Care Teams Railroad Crossing Protection Maintainer Relationship Specialty Start Date End Date Gloria Espinoza MD HOSPITALIST SERVICES [address] [place] [address] [place] [address] PCP - General 07/25/10 11/08/13 documented as of this encounter
--- OUTSIDE RECORDS SUMMARY | 2024-04-24 21:10 | XMS_ITS | Encounter Summary ---
Author Organization [facility] [place] [address] Care Team Providers Care Whiskey Filterer Name Role Phone Kamila Rodney MD Primary Care Provider [phone] Reason for Visit * Reason Comments Rheumatoid Arthritis Encounter Details Date Type Department Care Team (Late st Contact Info) Description 03/09/2013 1:45 PM EDT [place] [address] Kandy Espana, RN [facility] [place] [address] Elevated blood pressure (Primary Dx); Rheumatoid arthritis; [...] Patient Instructions * Patient Instructions* Erin Singleton, PRINTER MAINTAINER - 03/09/2013 2:28 PM EDT ?? Continue [...] Prevnar 13 vaccine - provided today - [facility] handout (patient) provided. ?? Will review PPSV booster indications. ?? Labs reviewed - plan at f]ollow up ?? Ongoing HTN management -> KAMILA RODNEY MD. ?? Encouraged ongoing counseling - self-care strategies. ?? Followup planned in 4 months, sooner for concerns, questions or increased signs/symptoms. Welcome to [employer], your secure online access to your electronic medical record at [facility]. Using [employer] you will be able to send messages to your providers, view your test results, renew prescriptions, schedule appointments, and much more. Follow these instructions to enter your personal [employer] account for the first time: 1. Start your internet browser and type [email or web address] into the address bar. 2. In the New User box on the right-hand side of the Welcome page click the link that states, ???I have an activation code.?? 3. On the Identification page, follow these steps: a) Enter your [employer] activation code: [email or web address] b) Expires: 04/23/2013 2:28 PM IMPORTANT: This [...] or your Access Code, please call for [place], for [place] or for [place]. If you need technical support, please e-mail [email or web address]. Remember, myD-H is NOT for urgent needs! [...] Prevnar 13 vaccine - provided today - [facility] handout (patient) provided. ?? Will review PPSV [...] PM EDT Hospital [place] [address] 05/14/2024 1:00 PM EDT Office Visit Dermatology at [place] [address] [place] [address] 08/18/2024 10:00 AM EST [place] [address] Alice Carney, CUSTOMER ORDER CLERK [facility] [place] [address] 08/18/2024 12:00 PM EST [place] [address] 12/08/2024 12:00 PM EDT [place] [address] documented as of this encounter Visit Diagnoses Diagnosis Elevated blood pressure- Primary Elevated blood pressure reading without diagnosis of hypertension Rheumatoid arthritis(714.0) Rheumatoid arthritis High risk medication use Encounter for long-term (current) use of other medications Encounter for long-term (current) use of other medications Immunization due Need for prophylactic vaccination and inoculation against unspecified single disease documented in this encounter Care Teams Whiskey Filterer Relationship Specialty Start Date End Date Kamila Rodney MD HOSPITALIST SERVICES [address] [place] [address] [place] [address] PCP - General 07/25/10 11/08/13 documented as of this encounter
--- OUTSIDE RECORDS SUMMARY | 2024-04-24 21:10 | XMS_ITS | Encounter Summary ---
Author Organization [facility] [place] [address] Care Team Providers Care Tiller Man Name Role Phone Gloira Espinoza MD Primary Care Provider [phone] Reason for Visit * Reason Onset Date Comments Arthritis 01/31/2011 Encounter Details Date Type Department Care Team (Late st Contact Info) Description 01/31/2011 Tele[place] [address] Kandy Espana, RN [facility] [place] [address] Arthritis Social History Tobacco Use Types Packs/Day [...] Notes * Telephone Encounter - Kandy Espana, SPRING ASSEMBLER - 01/31/2011 2:12 PM EDT Return call [...] Can't walk with foot pain and swelling [phone] (home) documented in this encounter Plan of Treatment Upcoming Encounters Date Type Department Care Team (Late st Contact Info) Description 04/28/2024 12:00 PM EDT Hospital En[place] [address] 05/14/2024 1:00 PM EDT Office Visit Dermatology at [address] [address] 08/18/2024 10:00 AM EST [place] [address] Alice Carney SPRING ASSEMBLER [facility] [place] [address] 08/18/2024 12:00 PM EST [place] [address] 12/08/2024 12:00 PM EDT [place] [address] documented as of this encounter Visit Diagnoses Not on filedocumented in this encounter Care Teams Tiller Man Relationship Specialty Start Date End Date Gloria Espinoza MD HOSPITALIST SERVICES [address] [place] [address] [place] [address] PCP - General 07/25/10 11/08/13 documented as of this encounter
--- OUTSIDE RECORDS SUMMARY | 2024-04-24 21:10 | XMS_ITS | Encounter Summary ---
Author Organization [facility] [place] [address] Care Team Providers Care Sewage Disposal Engineer Name Role Phone Gloria Espinoza MD Primary Care Provider [phone] Encounter Details Date Type Department Care Team (Late st Contact Info) Description 04/16/2011 [place] [address] Billie Lovelace, RN Social History Tobacco Use [...] PM EDT Hospital En[place] [address] 05/14/2024 1:00 PM EDT Office Visit Dermatology at [facility] [address] [place] [address] 08/18/2024 10:00 AM EST Office [place] [address] Alice Carney APRN [facility] [place] [address] 08/18/2024 12:00 PM EST [place]oint[place] [address] 12/08/2024 12:00 PM EDT [place]oint[place] [address] documented as of this encounter Visit Diagnoses Not on filedocumented in this encounter Care Teams Sewage Disposal Engineer Relationship Specialty Start Date End Date Gloria Espinoza MD HOSPITALIST SERVICES [address] [place] [address] [place] [address] PCP - General 07/25/10 11/08/13 documented as of this encounter
--- OUTSIDE RECORDS SUMMARY | 2024-04-24 21:10 | XMS_ITS | Encounter Summary ---
Author Organization [facility] [place] [address] Care Team Providers Care Mushroom Sorter Grader Name Role Phone Gloria Espinoza MD Primary Care Provider [phone] Encounter Details Date Type Department Care Team (Late Contact Info) Description 01/17/2011 Orders [place] [address] Kandy Espana, RN [facility] [place] [address] Social History Tobacco Use Types Packs/Day Years [...] PM EDT Hospital En[place] [address] 05/14/2024 1:00 PM EDT Office Visit Dermatology at [facility] [address] [place] [address] 08/18/2024 10:00 AM EST Office [place] [address] Alice Carney APRN [facility] [place] [address] 08/18/2024 12:00 PM EST Appointment [place] [address] 12/08/2024 12:00 PM EDT Appointment [place] [address] documented as of this encounter Visit Diagnoses Not on filedocumented in this encounter Care Teams Mushroom Sorter Grader Relationship Specialty Start Date End Date Gloria Espinoza MD HOSPITALIST SERVICES [address] [place] [address] [place] [address] PCP - General 07/25/10 11/08/13 documented as of this encounter
--- OUTSIDE RECORDS SUMMARY | 2024-04-24 21:10 | XMS_ITS | Encounter Summary ---
Author Organization [facility]ly [facility] [place] [address] Care Team Providers Care Trade Facilitator Name Role Phone Gloria Espinoza MD Primary Care Provider [phone] Reason for Referral * Consultation (Routine) - Closed Specialty Diagnoses / Procedures Referred By Contac t Referred To Contact Otolaryngology Diagnoses Dry mouth Kandy Espana RN [facility] [place] [address] [facility] [address] [place] [phone] Referral ID Status Reason Start Date Expiration Date V isits Requested Visits Authorized [id number] Closed Evaluate and Treat 04/08/2012 10/05/2012 1 1 * Consultation (Routine) - Closed Specialty Diagnoses / Procedures Referred By Contac t Referred To Contact Ophthalmology Diagnoses Dry eyes Kandy Espana RN [facility] [place] [address] [facility] [address] [place] [phone] Referral ID Status Reason Start Date Expiration Date V isits Requested Visits Authorized [id number] Closed Consult, Test & Treat 04/08/2012 10/05/2012 1 1 Reason for Visit * Reason Comments Follow-up Encounter Details Date Type Department Care Team (Late st Contact Info) Description 04/08/2012 9:45 AM EDT [place] [address] Kandy Espana, RN [facility] [place] [address] Dry mouth; Dry eyes; Encounter for long-term [...] Patient Instructions * Patient Instructions* Kandy Espana, TELE MARKETING EXECUTIVE - 04/08/2012 11:25 AM EDT ?? Referral to ENT/OPHTH. ?? Nursing instruction - enbrel administration (SURECLIK) -> Advised patient he may contact air quality engineer to alert to device failure (Replacment). ?? [...] Occupational Therapy - referral provided (OSH -> [place]). S/p LEFT hand injury -> functional impairment. [...] itching, dryness, crusting, burningand redness. Prescribed lid millstone cleaner - ocusoft for lid cleansing and [...] Previously seen ~ 1year at ENT in [place] - concern for recurrent sinusitis. No fever, [...] fluticasone (FLONASE) 50 mcg/Actuation nasal spray 2 Woodridge(s), Nasal, Once daily Allergies Allergen Reactions ??? [...] (SURECLIK) -> Advised patient he may contact air quality engineer to alert to device failure (Replacment). ?? [...] PM EDT Hospital En[place] [address] 05/14/2024 1:00 PM EDT Office Visit Dermatology at [facility] [address] [place] [address] 08/18/2024 10:00 AM EST Office [place] [address] Alice Carney APRN [facility] [place] [address] 08/18/2024 12:00 PM EST Appointment Med Infusion at [facility] [place] [address] 12/08/2024 12:00 PM EDT [place]ointment [place] [address] Scheduled Referrals Name Type Priority [...] EDT Doe Obrien MD HEMATOLOGY ORDERA BLES [facility] * (ABNORMAL) CBC (04/08/2012 11:21 AM EDT) White Blood Cell 7.5 4.0 - 10.0 [...] variation 14.5(H) 10.9 - 14.4 % CARLOS NEGRETEENNIUM Mean Platelet Volume 9.7 9.0 - 12.0 fL CARLOS NEGRETEENNIUM Blood specimen (specimen) 04/08/2012 11:21 AM EDT 04/08/2012 11:24 AM EDT Narrative Resulting Agency Comment Spec In Lab Doe Obrien MD HEMATOLOGY ORDERA BLES CARLOS DENNIS * Creatinine, serum (04/08/2012 11:21 AM EDT) Creatinine 0.84 0.80 - 1.50 mg/dL CARLOS NEGRETEENNIUM Comment: Please note that the pediatric reference intervals supplied above were not validated at [facility]. Results from pediatric patients should be interpreted in conjunction to the patient's age, height and muscle mass. Est Glomerular Filtration Rate >60 >=60 CERFRANKIE [employer] Comment: The National Kidney Disease Education Program [...] MD CHEMISTRY ORDERAB LES Performing Organization Address [facility] Co de Phone [...] CHEMISTRY ORDERAB LES CERNER MILLENNIUM * BUN (04/08/2012 11:21 AM EDT) Blood Urea Nitrogen 10 10 - 20 mg/dL CERNER MILLENNIUM Blood specimen (specimen) 04/08/2012 11:21 AM EDT 04/08/2012 11:24 AM EDT Narrative Resulting Agency Comment Spec In Lab Doe Obrien MD CHEMISTRY ORDERAB LES [facility] documented in this encounter Visit Diagnoses Diagnosis Dry mouth Disturbance of salivary secretion Dry eyes Tear film insufficiency, unspecified Encounter for long-term (current) use of other medications Rheumatoid arthritis(714.0) Rheumatoid arthritis documented in this encounter Care Teams Trade Facilitator Relationship Specialty Start Date End Date Gloria Espinoza MD HOSPITALIST SERVICES [address] [place] [address] [place] [address] PCP - General 07/25/10 11/08/13 documented as of this encounter
--- OUTSIDE RECORDS SUMMARY | 2024-04-24 21:10 | XMS_ITS | Encounter Summary ---
Author Organization [facility] [place] [address] Care Team Providers Care Pulper Name Role Phone Gloria Espinoza MD Primary Care Provider [phone] Encounter Details Date Type Department Care Team (Late st Contact Info) Description 02/19/2011 Orders [place] [address] Kandy Espana, RN [facility] [place] [address] Rheumatoid arthritis Social History Tobacco Use Types [...] PM EDT Hospital En[place] [address] 05/14/2024 1:00 PM EDT Office Visit Dermatology at [facility] [address] [place] [address] 08/18/2024 10:00 AM EST Office [place] [address] Alice Carney, SOCIAL MEDIA CONTENT MANAGER [facility] [place] [address] 08/18/2024 12:00 PM EST Appointment Med Infusion at [facility] [place] [address] 12/08/2024 12:00 PM EDT Appointment [facility] [place] [address] documented as of this encounter Results * High Sensitivity CRP (02/19/2011 1:52 PM EDT) [facility] C-Reactive Protein High Sensitivity 1.1 mg/L [facility] Comment: Interpretations: 1) For cardiac [...] MD CHEMISTRY ORDERABLE S Performing Organization Address City/State/[facility] Co de Phone Number CAR[facility]OS [facility] documented in this encounter Visit Diagnoses Diagnosis Rheumatoid arthritis(714.0) Rheumatoid arthritis documented in this encounter Care Teams Pulper Relationship Specialty Start Date End Date Gloria Espinoza MD HOSPITALIST SERVICES [address] [place] [address] [place] [address] PCP - General 07/25/10 11/08/13 documented as of this encounter
--- OUTSIDE RECORDS SUMMARY | 2024-04-24 21:10 | XMS_ITS | Encounter Summary ---
Author Organization [facility] [place] [address] Care Team Providers Care Sexual Assault Social Worker Name Role Phone Gloria Espinoza MD Primary Care Provider [phone] Reason for Visit * Reason Onset Date Comments Medication Refill 10/03/2011 Encounter Details Date Type Department Care Team (Late st Contact Info) Description 10/03/2011 Refill [place] [address] Kandy Espana, RN [facility] [place] [address] Social History Tobacco Use Types Packs/Day Years [...] PM EDT Hospital Encounter [place] [address] 05/14/2024 1:00 PM EDT Office Visit Dermatology at [facility] [address] [place] [address] 08/18/2024 10:00 AM EST Office [place] [address] Alice Carney, SCIENTIFIC LINGUIST [facility] [place] [address] 08/18/2024 12:00 PM EST Appointment [place] [address] 12/08/2024 12:00 PM EDT Appointment [place] [address] documented as of this encounter Visit Diagnoses Not on filedocumented in this encounter Care Teams Sexual Assault Social Worker Relationship Specialty Start Date End Date Gloria Espinoza MD HOSPITALIST SERVICES [address] [place] [address] [place] [address] PCP - General 07/25/10 11/08/13 documented as of this encounter
--- OUTSIDE RECORDS SUMMARY | 2024-04-24 21:10 | XMS_ITS | Encounter Summary ---
Author Organization [facility] [place] [address] Care Team Providers Care Cottage Cheese Maker Name Role Phone Gloria Espinoza MD Primary Care Provider [phone] Reason for Referral * Consultation (Routine) - Closed by system - unspecified Specialty Diagnoses / Procedures Referred By Azam corbett Referred To Contact Podiatry Diagnoses Encounter for long-term (current) use of other medications Kandy Espana, RN [facility] [place] [address] Referral ID Status Reason Start Date Expiration Date Visits Requested Visits Authorized [id number] Closed by system - unspecified Consult, Test & Treat 2 01/17/2013 1 1 Encounter Details Date Type Department Care Team (Late st Contact Info) Description 07/21/2012 Orders [place] [address] Kandy Espana, RN [facility] DR [place] [address] Encounter for long-term (current) use [...] PM EDT Hospital En[place] [address] 05/14/2024 1:00 PM EDT Office Visit Dermatology at [facility] [address] [place] [address] 08/18/2024 10:00 AM EST Office [place] [address] Alice Carney APRN [facility] [place] [address] 08/18/2024 12:00 PM EST [place]ointment [place] [address] 12/08/2024 12:00 PM EDT [place]oint[place] [address] Scheduled Referrals Name Type Priority Associated Diagnoses Orde r Schedule Referral to Podiatry Outpatient Referral Routine Encounter for long-term (current) use of other medications Ordered: 07/21/2012 documented as of this encounter Results * BUN (07/21/2012 1:14 PM EST) Pathologist [facility] Blood Urea Nitrogen 18 10 - 20 mg/dL [facility] Blood specimen (specimen) 07/21/2012 1:14 PM EST 07/21/2012 1:33 PM EST Narrative Resulting Agency Comment Spec In Lab Eusebio Espinosa MD CHEMISTRY ORDERABLES [facility] [place] * Hepatic Function Panel (07/21/2012 1:14 PM EST) Pathologist [facility] Protein, Total 6.7 6.4 - 8.3 gm/dL [facility] Albumin 4.2 3.2 - 5.2 gm/dL CERNER [...] Espinosa MD CHEMISTRY ORDERABLES [facility]ERN[facility] * Creatinine, serum (07/21/2012 1:14 PM EST) Creatinine 0.93 0.80 - 1.50 mg/dL CERNER MILLENNIUM Comment: Please note that the pediatric reference intervals supplied above were not validated at [facility] [place]. Results from pediatric patients should be interpreted [...] In Lab Eusebio Espinosa MD CHEMISTRY ORDERABLES [facility] PENELOPE[facility]NIUM * (ABNORMAL) CBC (with Diff) (07/21/2012 1:14 [...] of variation 13.9 10.9 - 14.4 % CERFRANKIE MILLENNIUM Mean Platelet Volume 10.2 9.0 - 12.0 fL ASHWINFRANKIE NEGRETEENNIUM Blood specimen (specimen) 07/21/2012 1:14 PM EST 07/21/2012 1:33 PM EST Narrative Resulting Agency Comment Spec In Lab Eusebio Espinosa MD HEMATOLOGY ORDERABLE S CARLOS DENNIS documented in this encounter Visit Diagnoses Diagnosis Encounter for long-term (current) use of other medications- Primary documented in this encounter Care Teams Cottage Cheese Maker Relationship Specialty Start Date End Date Gloria Espinoza MD HOSPITALIST SERVICES [address] [place] [address] [place] [address] PCP - General 07/25/10 11/08/13 documented as of this encounter
--- OUTSIDE RECORDS SUMMARY | 2024-04-24 21:10 | XMS_ITS | Encounter Summary ---
Author Organization [facility] [place] [address] Care Team Providers Care Fire Supervisor Name Role Phone Gloria Espinoza MD Primary Care Provider [phone] Reason for Referral * Occupational Therapy (Routine) - Closed by system - unspecified Specialty Diagnoses / Procedures Referred By Contmabel t Referred To Contact Occupational Therapy Diagnoses RA (rheumatoid arthritis) Injury, hand Kandy Espana, [facility] [place] [address] Referral ID Status Reason Start Date Expiration Date Visits Requested Visits Authorized [id number] Closed by system - unspecified Evaluate and Treat 01/01/2012 06/29/2012 1 1 Reason for Visit * Reason Comments Follow-up Encounter Details Date Type Department Care Team (Late st Contact Info) Description 01/01/2012 9:45 AM EDT [place] [address] Kandy Espana, RN [facility] [place] [address] RA (rheumatoid arthritis) (Primary Dx); Injury, hand; [...] Occupational Therapy - referral provided ([facility] -> [place]). S/p LEFT hand injury -> functional impairment. [...] fluticasone (FLONASE) 50 mcg/Actuation nasal spray 2 [place](s), Nasal, Once daily Allergies Allergen Reactions ??? [...] Occupational Therapy - referral provided ([facility] -> [place]). S/p LEFT hand injury -> functional impairment. [...] PM EDT Hospital [place] [address] 05/14/2024 1:00 PM EDT Office Visit Dermatology at [address] [address] 08/18/2024 10:00 AM EST [place] [address] Alice Carney APRN [facility] [place] [address] 08/18/2024 12:00 PM EST [place] [address] 12/08/2024 12:00 PM EDT [place] [address] Scheduled Referrals Name Type Priority Associated Diagnoses [...] EDT Luke Metcalf MD HEMATOLOGY ORDERABL ES CERNER MILLENNIUM * Creatinine, serum (01/01/2012 11:03 [...] Lab Doe Obrien MD CHEMISTRY ORDERAB LES [facility] * Hepatic function panel (01/01/2012 11:03 AM [...] MD CHEMISTRY ORDERAB LES Performing Organization Address [facility] Co de Phone Number CARLOS DENNIS * BUN (01/01/2012 11:03 AM EDT) [facility] Blood Urea Nitrogen 18 10 - 20 mg/dL CARLOS DENNIS Blood specimen (specimen) 01/01/2012 11:03 AM EDT 01/01/2012 11:05 AM EDT Narrative Resulting Agency Comment Spec In Lab Doe Obrien MD CHEMISTRY ORDERAB LES Performing Organization Address [facility] Co de Phone Number CARLOS DNENIS * CRP - High sensitivity (01/01/2012 11:03 AM EDT) [facility] C-Reactive Protein High Sensitivity 3.9 mg/L CARLOS DENNIS Comment: Interpretations: 1) For [...] MD CHEMISTRY ORDERAB LES Performing Organization Address City/[facility]/ZIP Co de Phone Number CERNER MILLENNIUM [...] MD HEMATOLOGY ORDERA BLES Performing Organization Address City/[facility]/ZIP Co de Phone Number CERNER MILLENNIUM * Sedimentation rate (01/01/2012 11:03 AM EDT) Sedimentation Rate Automated 5 0 - 15 mm/hr CERNER MILLENNIUM Blood specimen (specimen) 01/01/2012 11:03 AM EDT 01/01/2012 11:05 AM EDT Narrative Resulting Agency Comment Spec In Lab Luke Metcalf MD HEMATOLOGY ORDERABL ES CARLOS DENNIS documented in this encounter Visit Diagnoses Diagnosis RA (rheumatoid arthritis)- Primary Rheumatoid arthritis Injury, hand Injury, other and unspecified, hand, except finger Encounter for long-term (current) use of other medications Rheumatoid arthritis(714.0) Rheumatoid arthritis documented in this encounter Care Teams Fire Supervisor Relationship Specialty Start Date End Date Gloria Espinoza MD HOSPITALIST SERVICES [address] [place] [address] [place] [address] PCP - General 07/25/10 11/08/13 documented as of this encounter
--- OUTSIDE RECORDS SUMMARY | 2024-04-24 21:10 | XMS_ITS | Encounter Summary ---
Author Organization [facility] [place] [address] Care Team Providers Care Chief Drafter Name Role Phone Gloria Espinoza MD Primary Care Provider [phone] Reason for Visit * Reason Onset Date Comments Prior Authorization 01/11/2012 ENBREL Encounter Details Date Type Department Care Team (Late st Contact Info) Description 01/11/2012 Telephone [place] [address] Jarvis Temple, RN [facility] [place] [address] Prior Authorization (ENBREL) Social History Tobacco Use [...] request: RHEUMATOID ARTHRITIS Health plan: A[employer] ID# [id number] Authorizing footwear sales representative name: APPROVAL FAXED TO OFFICE Faxed to health plan on: 01/08/12 Health plan decision: Approved Quantity approved: Authorization number: Start date: 01/08/12 End date: 01/07/13 Patient notified? yes Pharmacy notified? yes documented in this encounter Plan of Treatment Upcoming Encounters Date Type Department Care Team (Late st Contact Info) Description 04/28/2024 12:00 PM EDT Hospital Encounter [place] [address] 05/14/2024 1:00 PM EDT Office Visit Dermatology at [facility] [address] [place] [address] 08/18/2024 10:00 AM EST Office [place] [address] Alice Carney, [facility] [place] [address] 08/18/2024 12:00 PM EST Appointment [place] [address] 12/08/2024 12:00 PM EDT Appointment [place] [address] documented as of this encounter Visit Diagnoses Not on filedocumented in this encounter Care Teams Chief Drafter Relationship Specialty Start Date End Date Gloria Espinoza MD HOSPITALIST SERVICES [address] [place] [address] [place] [address] PCP - General 07/25/10 11/08/13 documented as of this encounter
--- OUTSIDE RECORDS SUMMARY | 2024-04-24 21:10 | XMS_ITS | Encounter Summary ---
Author Organization [facility] [place] [address] Care Team Providers Care Photographic Technician Name Role Phone Gloria Espinoza MD Primary Care Provider [phone] Reason for Visit * Reason Comments Rheumatoid Arthritis Encounter Details Date Type Department Care Team (Late st Contact Info) Description 10/08/2011 9:45 AM EST Follow-[place] [address] Kandy Espana, RN [facility] [address] [place] [address] Elevated blood pressure (Primary Dx); Fatigue; Weight [...] Notes stress associated with mother being in shelter - dementia - 4 mini strokes a couple weeks ago. Stable when compared ot prior period. Feels less motivated this winter - less active and eating more. No routine exercise. Continues with Enbrel therapy 25 mg sc twice weekly, MTX 15 mg po once weekly and folic acid. Ongoing use of tylenol vs NSAID with resolution of heartburn symptoms. Reports interruption in client care specialist for left lower back pain s/p fall [...] fluticasone (FLONASE) 50 mcg/Actuation nasal spray 2 [place](s), Nasal, Once daily Allergies Allergen Reactions ??? [...] PM EDT Hospital Encounter [place] [address] 05/14/2024 1:00 PM EDT Office Visit Dermatology at [place] [address] [place] [address] 08/18/2024 10:00 AM EST Office [place] [address] Alice Carney APRN [facility] [place] [address] 08/18/2024 12:00 PM EST Appointment [place] [address] 12/08/2024 12:00 PM EDT Appointment [place] [address] documented as of this encounter Procedures Procedure [...] AM EST Tom Gan MD CHEMISTRY ORDERABLES CERNER MILLENNIUM * HEPATIC FUNCTION PANEL (10/08/2011 10:35 AM [...] Gan MD CHEMISTRY ORDERABLES Performing Organization Address [facility] de Phone Number CERNER MILLENNIUM * BUN (10/08/2011 10:35 AM EST) Blood Urea Nitrogen 13 10 - 20 mg/dL CERNER MILLENNIUM Blood specimen (specimen) 10/08/2011 10:35 AM EST 10/08/2011 10:42 AM EST Tom Gan MD CHEMISTRY ORDERABLES Performing Organization Address [facility] de Phone Number CERFRANKIE NEGRETEENNIUM * HIGH SENSITIVITY CRP (10/08/2011 10:35 AM EST) C-Reactive Protein High Sensitivity 1.0 mg/L CERNER MILLENNIUM Comment: Interpretations: 1) For [...] Tom Gan MD CHEMISTRY ORDERABLES CARLOS DENNIS * TSH (10/08/2011 10:35 AM EST) Thyroid Stimulating Hormone 2.88 0.27 - 4.20 mcIU/mL CARLOS PENELOPEMIKAEL Blood specimen (specimen) 10/08/2011 10:35 AM EST [...] classified documented in this encounter Care Teams Photographic Technician Relationship Specialty Start Date End Date Gloria Espinoza MD HOSPITALIST SERVICES [address] [place] [address] [place] [address] PCP - General 07/25/10 11/08/13 documented as of this encounter
--- OUTSIDE RECORDS SUMMARY | 2024-04-24 21:10 | XMS_ITS | Encounter Summary ---
Author Organization [facility] [place] [address] Care Team Providers Care Senior Center Director Name Role Phone Kamila Rodney MD Primary Care Provider Reason for Visit * Reason Comments Other dry mouth x's 2 yrs/ sore tongue X's 6 months. discomfort when eating Encounter Details Date Type Department Care Team (Late st Contact Info) Description 04/16/2012 12:15 PM EDT Office Visit [place] [address] José Antonio Dean MD [facility] [place] [address] Clinical xerostomia (Primary Dx) Discharge Disposition: Home [...] Wesly Ybarra is a 61 y.o. male. [facility] OTOLARYNGOLOGY HEAD AND NECK SURGERY NEW [...] fluticasone (FLONASE) 50 mcg/Actuation nasal spray 2 [place](s), Nasal, Once daily Allergies: Allergies as of [...] PM EDT Hospital Encounter [place] [address] 05/14/2024 1:00 PM EDT Office Visit Dermatology at [facility] [address] [place] [address] 08/18/2024 10:00 AM EST Office [place] [address] Alice Carney, LABOR STANDARDS DIRECTOR [facility] [place] [address] 08/18/2024 12:00 PM EST Appointment [place] [address] 12/08/2024 12:00 PM EDT [place]ointment [place] [address] documented as of this encounter Visit Diagnoses Diagnosis Clinical xerostomia- Primary Disturbance of salivary secretion documented in this encounter Care Teams Senior Center Director Relationship Specialty Start Date End Date Kamila Rodney MD HOSPITALIST SERVICES [address] [place] [address] [place] [address] PCP - General 07/25/10 11/08/13 documented as of this encounter
--- OUTSIDE RECORDS SUMMARY | 2024-04-24 21:11 | XMS_ITS | Encounter Summary ---
Author Organization [facility] Address [address] [place] [address] Care Team Providers Care Teacher Cclc Name Role Phone Arelis Michele MD Primary Care Provider [phone] Encounter Details Date Type Department Care Team (Late st Contact Info) Description 06/03/2021 Lab Requisition [facility] Pathology & Laboratory Medicine - [address] [address] Outr Resulting Lab, Provider Social History Tobacco [...] Quantiferon Interpretation Negative Negative 06/05/2021 13:41 EDT [facility] Comment:No interferon-gamma response to M. tuberculosis antigens was detected. ??Infection with M. tuberculosis is unlikely. A single negative result does not exclude infection with M. tuberculosis. ??In patients at high risk for M. tuberculosis infection, a second test should be considered. TB1 Ag minus Nil 0.00 IU/ml 06/05/20 13:41 EDT [facility] TB2 Ag minus Nil 0.00 IU/mL 06/05/20 13:41 EDT [facility] Blood VENOUS BLOOD / Unknown 06/02/2021 11:50 EDT 06/05/2021 13:34 EDT Narrative [facility] - 06/05/2021 13:41 EDT Results were obtained with the [employer] QuantiFERON-TB Gold Plus CLIA. New platform in use 05/10/2021 Provider Outr Resulting Lab IMMUNOLOGY A ND SEROLOGY ORDERABLES Performing Organization Address [facility] Co de Phone Number [facility] [address] [place] [address] * QUANTIFERON MITOGEN (PERFORMABLE) (06/02/2021 11:50 EDT) Blood VENOUS BLOOD / Unknown 06/02/2021 11:50 EDT 06/03/2021 22:20 EDT Provider Outr Resulting Lab IMMUNOLOGY A ND SEROLOGY ORDERABLES [facility] [address] [place] [address] * QUANTIFERON TB2 (PERFORMABLE) (06/02/2021 11:50 EDT) Blood VENOUS BLOOD / Unknown 06/02/2021 11:50 EDT 06/03/2021 22:20 EDT Provider Outr Resulting Lab IMMUNOLOGY A ND SEROLOGY ORDERABLES Performing Organization Address City/[facility]/ZIP Co de Phone Number [facility] [address] [place] [address] * QUANTIFERON TB1 (PERFORMABLE) (06/02/2021 11:50 EDT) Blood VENOUS BLOOD / Unknown 06/02/2021 11:50 EDT 06/03/2021 22:20 EDT Provider Outr Resulting Lab IMMUNOLOGY A ND SEROLOGY ORDERABLES Performing Organization Address [facility] Co de Phone Number [facility] [address] [place] [address] * QUANTIFERON NIL (PERFORMABLE) (06/02/2021 11:50 EDT) Blood VENOUS BLOOD / Unknown 06/02/2021 11:50 EDT 06/03/2021 22:20 EDT Provider Outr Resulting Lab IMMUNOLOGY A ND SEROLOGY ORDERABLES Performing Organization Address [facility] de Phone Number [facility] [address] [place] [address] documented in this encounter Visit Diagnoses Not on filedocumented in this encounter Care Teams Teacher Cclc Relationship Specialty Start Date End Date Arelis Michele MD [address] [place] [address] PCP - General 02/08/14 documented as of this encounter
--- OUTSIDE RECORDS SUMMARY | 2024-04-24 21:11 | XMS_ITS | Encounter Summary ---
Author Organization [facility] Address [address] [place] [address] Care Team Providers Care Calibration Engineer Name Role Phone Arelis Michele MD Primary Care Provider [phone] Encounter Details Date Type Department Care Team (Late st Contact Info) Description 05/26/2020 Lab Requisition [facility] Pathology & Laboratory Medicine - [address] [address] Outr Resulting Lab, Provider Social History Tobacco [...] acid-fast bacilli isolated VITEK SUSCEPTIBILITY 08/02/2020 10:26 [facility] AFB Smear No Acid Fast Bacilli Seen 08/02/2020 10:26 [facility] Sputum COLLECTION OF INDUCED SPUTUM / Unknown 05/25/2020 10:00 EDT 05/26/2020 21:36 EDT Provider Outr Resulting Lab MICROBIOLOGY - GENERAL ORDERABLES [facility] [address] [place] [address] documented in this encounter Visit Diagnoses Not on filedocumented in this encounter Care Teams Calibration Engineer Relationship Specialty Start Date End Date Arelis Michele MD [address] [place] [address] PCP - General 02/08/14 documented as of this encounter
--- OUTSIDE RECORDS SUMMARY | 2024-04-24 21:11 | XMS_ITS | Encounter Summary ---
Author Organization [facility] Address [address] [place] [address] Care Team Providers Care Remote Recruiter Name Role Phone Arelis Michele MD Primary Care Provider [phone] Encounter Details Date Type Department Care Team (Late st Contact Info) Description 04/09/2023 Lab Requisition [facility] Pathology & Laboratory Medicine - [address] [address] Outr Resulting Lab, Provider Social History Tobacco [...] on filedocumented in this encounter Care Teams Remote Recruiter Relationship Specialty Start Date End Date Arelis Michele MD [address] [place] [address] PCP - General 02/08/14 documented as of this encounter
--- OUTSIDE RECORDS SUMMARY | 2024-04-24 21:11 | XMS_ITS | Encounter Summary ---
Author Organization [facility] [place] [address] Care Team Providers Care Mandarin Chinese Teacher Name Role Phone Gloria Espinoza MD Primary Care Provider [phone] Encounter Details Date Type Department Care Team (Late st Contact Info) Description 08/01/2010 11:15 AM EST [place] [address] Kandy Espana, RN [facility] [place] [address] Discharge Disposition: Home Social History Tobacco Use [...] PM EDT Hospital En[place] [address] 05/14/2024 1:00 PM EDT Office Visit Dermatology at [facility] [address] [place] [address] 08/18/2024 10:00 AM EST Office [place] [address] Knuuti, Alice E, POWER BUILDER DEVELOPERFORMERLY [facility] [place] [address] 08/18/2024 12:00 PM EST [place] [address] 12/08/2024 12:00 PM EDT [place]oint[place] [address] documented as of this encounter Visit Diagnoses Not on filedocumented in this encounter Care Teams Mandarin Chinese Teacher Relationship Specialty Start Date End Date Gloria Espinoza MD HOSPITALIST SERVICES [address] [place] [address] [place] [address] PCP - General 07/25/10 11/08/13 documented as of this encounter
--- OUTSIDE RECORDS SUMMARY | 2024-04-24 21:11 | XMS_ITS | Encounter Summary ---
Author Organization Formerly [facility] [place] [address] Care Team Providers Care Webbing Seamer Pound Net Name Role Phone Gloria Espinoza MD Primary Care Provider [phone] Reason for Visit * Reason Onset Date Comments Medication Refill 12/15/2010 Encounter Details Date Type Department Care Team (Late st Contact Info) Description 12/15/2010 [place] [address] Kandy Espana, RN [facility] [place] [address] RA (rheumatoid arthritis) Social History Tobacco Use [...] PM EDT Hospital En[place] [address] 05/14/2024 1:00 PM EDT Office Visit Dermatology at [place] [address] [place] [address] 08/18/2024 10:00 AM EST Office [place] [address] Alice Carney APRN [facility] [place] [address] 08/18/2024 12:00 PM EST [place] [address] 12/08/2024 12:00 PM EDT [place] [address] documented as of this encounter Visit Diagnoses Diagnosis RA (rheumatoid arthritis) Rheumatoid arthritis documented in this encounter Care Teams Webbing Seamer Pound Net Relationship Specialty Start Date End Date Gloria Espinoza MD H[facility] [address] [place] [address] [place] [address] PCP - General 07/25/10 11/08/13 documented as of this encounter
--- OUTSIDE RECORDS SUMMARY | 2024-04-24 21:11 | XMS_ITS | Encounter Summary ---
Author Organization [facility] Address [address] [place] [address] Care Team Providers Care Process Controls Technician Name Role Phone Arelis Michele MD Primary Care Provider [phone] Encounter Details Date Type Department Care Team (Late st Contact Info) Description 05/21/2022 Lab Requisition [facility] Pathology & Laboratory Medicine - [facility] [address] [place] [address] Albaro Wade, [address] [place] [address] Neoplasm of unspecified behavior of bone, soft [...] explore management options, if applicable. 05/22/2022 14:52 [facility] Final Diagnosis A. SKIN OF POSTAURICULAR REGION, RIGHT, SHAVE BIOPSY: - Basal cell carcinoma, nodular type. - Basal cell carcinoma present at deep tissue edge. 05/22/2022 14:52 [facility] Attestation By the signature below, the attending physician certifies that they have 1) personally conducted a gross and/or microscopic examination of the described specimen(s), and/or personally interpreted the results of laboratory testing of the described specimen(s), and 2) personally rendered or confirmed the above diagnosis. 05/22/2022 14:52 [facility] at 1452 Microscopic Description Irregularly [...] of the islands and stroma. 05/22/2022 14:52 [facility] Clinical History Bleeding lesion; clinical diagnosis code: D49.2 05/22/2022 14:52 [facility] Gross Description A. Received in formalin labelled with proper patient identification (initials R, D) and right postauricular skin is a 1.2 x 0.9 x 0.1 cm ovoid shave of pearly jiang skin. The margin is inked. The specimen is trisected and entirely submitted in A1. DONAVAN HELMS(ASCP) 05/22/2022 8:10 05/22/2022 14:52 [facility] Performing Lab [facility] 05/22/2022 14:52 [facility] Scanned Images 05/22/2022 14:52 [facility] Tissue TISSUE SPECIMEN FROM SKIN / Unknown 05/18/2022 14:20 EDT 05/21/2022 16:56 EDT Albaro Wade DO PATHOLOGY ORDER DARIAN [facility] [address] [place] [address] documented in this encounter Visit Diagnoses Diagnosis Neoplasm of unspecified behavior of bone, soft tissue, and skin documented in this encounter Care Teams Process Controls Technician Relationship Specialty Start Date End Date Arelis Michele MD [address] [place] [address] PCP - General 02/08/14 documented as of this encounter
--- OUTSIDE RECORDS SUMMARY | 2024-04-24 21:11 | XMS_ITS | Encounter Summary ---
Author Organization [facility] Address [address] [place] [address] Care Team Providers Care Seamer Elastic Band Name Role Phone Arelis Michele MD Primary Care Provider [phone] Encounter Details Date Type Department Care Team (Late st Contact Info) Description 07/04/2023 Lab Requisition [facility] Pathology & Laboratory Medicine - [address] [address] Outr Resulting Lab, Provider Social History Tobacco [...] IgE 29 <158 IU/mL 07/05/2023 7:46 EDT [facility] Blood VENOUS BLOOD / Unknown 07/04/2023 10:13 EDT 07/04/2023 17:13 EDT Provider Outr Resulting Lab CHEMISTRY & BLOOD GAS ORDERABLES Performing Organization Address City/[facility]/ZIP Co de Phone Number [facility] [address] [place] [address] * (ABNORMAL) IMMUNOGLOBULINS (07/04/2023 10:13 EDT) IgG 532(L) 610 - 1,616 mg/dL 07/05/2023 9:27 EDT [facility] IgA 147 85 - 499 mg/dL 07/05/2023 9:27 EDT [facility] IgM 38 35 - 242 mg/dL 07/05/2023 9:27 EDT [facility] Blood VENOUS BLOOD / Unknown 07/04/2023 10:13 EDT 07/04/2023 17:13 EDT Provider Outr Resulting Lab CHEMISTRY & BLOOD GAS ORDERABLES Performing Organization Address [facility] [[email or web address]] Co de Phone Number [facility] [address] [place] [address] documented in this encounter Visit Diagnoses Not on filedocumented in this encounter Care Teams Seamer Elastic Band Relationship Specialty Start Date End Date Arelis Michele MD [address] [place] [address] PCP - General 02/08/14 documented as of this encounter
--- OUTSIDE RECORDS SUMMARY | 2024-04-24 21:11 | XMS_ITS | Encounter Summary ---
Author Organization [facility] [place] [address] Care Team Providers Care Supervisor Advice Name Role Phone Gloria Espinoza MD Primary Care Provider [phone] Reason for Visit * Reason Comments Rheumatoid Arthritis Encounter Details Date Type Department Care Team (Late st Contact Info) Description 01/17/2011 10:45 AM EDT [place] [address] Kandy Espana, RN [facility] [place] [address] Encounter for long-term (current) use of other [...] PM EDT Hospital En[place] [address] 05/14/2024 1:00 PM EDT Office Visit Dermatology at [facility] [address] [place] [address] 08/18/2024 10:00 AM EST Office [place] [address] Alice Carney APRN [facility] [place] [address] 08/18/2024 12:00 PM EST Appointment [place] [address] 12/08/2024 12:00 PM EDT [place]oint[place] [address] documented as of this encounter Procedures Procedure [...] of other medications HEPATIC FUNCTION PANEL Routine 1 11:21 AM EDT Encounter for long-term (current) [...] EDT Jennifer Hawley DO HEMATOLOGY ORDER DARIAN [facility] NEGRETEEN[facility] * (ABNORMAL) CBC (01/17/2011 11:21 AM EDT) [...] EDT Jennifer Hawley DO HEMATOLOGY ORDER DARIAN CARLOS WALKERIUM * CRP - High sensitivity (01/17/2011 11:21 [...] EDT Jennifer Hawley DO CHEMISTRY ORDERA BLES [facility] Armor5[facility] * Creatinine, serum (01/17/2011 11:21 AM EDT) Creatinine 0.91 0.80 - 1.50 mg/dL [facility] Est Glomerular Filtration Rate >60 >=[address] [facility] Armor5[facility] Comment: The National Kidney Disease Education Program [...] DO CHEMISTRY ORDERA BLES Performing Organization Address [facility] Co de Phone Number CERNER MILLENNIUM * Sedimentation rate, automated (01/17/2011 11:21 AM EDT) Sedimentation Rate Automated 6 0 - 15 mm/hr CERNER MILLENNIUM Blood specimen (specimen) 01/17/2011 11:21 AM EDT 01/17/2011 11:36 AM EDT Jennifer Hawley DO HEMATOLOGY ORDER DARIAN Performing Organization Address [facility] de Phone Number CERNER MILLENNIUM * Hepatic Function Panel (01/17/2011 11:21 AM EDT) Pathologist [facility] Protein, Total 7.0 6.4 - 8.3 gm/dL [...] DO CHEMISTRY ORDERA BLES Performing Organization Address City/[facility]/ZIP Co de Phone Number CERNER MILLENNIUM documented in this encounter Visit Diagnoses Diagnosis Encounter for long-term (current) use of other medications RA (rheumatoid arthritis) Rheumatoid arthritis Osteopenia Disorder of bone and cartilage, unspecified GERD (gastroesophageal reflux disease) Esophageal reflux Hyperlipidemia Other and unspecified hyperlipidemia documented in this encounter Care Teams Supervisor Advice Relationship Specialty Start Date End Date Gloria Espinoza MD HOSPITALIST SERVICES [address] [place] [address] [place] [address] PCP - General 07/25/10 11/08/13 documented as of this encounter
--- OUTSIDE RECORDS SUMMARY | 2024-04-24 21:11 | XMS_ITS | Encounter Summary ---
Author Organization [facility] Address [address] [place] [address] Care Team Providers Care Mate Ship Name Role Phone Arelis Michele MD Primary Care Provider [phone] Encounter Details Date Type Department Care Team (Late st Contact Info) Description 04/11/2023 Lab Requisition [facility] Pathology & Laboratory Medicine - [facility] [address] [place] [address] Outr Resulting Lab, Provider Social History Tobacco [...] bacilli isolated VITEK SUSCEPTIBILITY 06/07/2023 9:50 EDT [facility] AFB Smear No Acid Fast Bacilli Seen 06/07/2023 9:50 EDT [facility] Sputum SPUTUM / Unknown 04/11/2023 9:00 EDT 04/11/2023 22:15 EDT Provider Outr Resulting Lab MICROBIOLOGY - GENERAL ORDERABLES [facility] [address] [place] [address] documented in this encounter Visit Diagnoses Not on filedocumented in this encounter Care Teams Mate Ship Relationship Specialty Start Date End Date Arelis Michele MD [address] [place] [address] PCP - General 02/08/14 documented as of this encounter
--- OUTSIDE RECORDS SUMMARY | 2024-04-24 21:11 | XMS_ITS | Encounter Summary ---
Author Organization [facility] Address [address] [place] [address] Care Team Providers Care Highway Painter Helper Name Role Phone Lee Michele MD Primary Care Provider [phone] Encounter Details Date Type Department Care Team (Latest Contact Info) Description 02/08/2014 7:30 EDT - 02/08/2014 14:09 EDT Hospital Encounter [facility] Cardiovascular Unit [address] [place] [address] Todd Ochoa MD [address] [place] [address] [place] [phone] Discharge Disposition: Home or Self Care [...] RHC. * Landy Mehta RN - 02/05/2014 0960 EDT Precardiac Cath Nursing Checklist Recent Labs: 02/03/14 BUN 12, CREATININE 1.0, GFR >60 No results found for this basename: BUN, CREATININE, HGB, CALCGFR Hgt: Height: 182.9 cm (72) Wgt: Weight : 95.255 kg (210 lb) Allergies: Allergies Allergen Reactions ??? Levothyroxine ??? Lisinopril Dry cough ??? Other - See Comments [id number] - [place], [place] - [address] [facility] [address] [facility] [address] Cardiac History: Stress Test? No Reason for [...] instructed to register on the 3rd floor [facility]. Transportation Issues: No Patient/family instructed that they will need a designated pizza driver if they are discharged on the [...] concerns were addressed appropriately. Jolanta Ruff MD continuity writer - PGY 4 Pager - [phone]. documented in this encounter Procedure Notes * ADMINISTRATIVE SERVICES OFFICER, SCAN 2 - 02/11/2014 0927 EDTAssociated Order(s): [...] vein Procedure: He was brought to the [facility] Cardiac Catheterization Laboratory for the procedure: Diagnostic [...] EST) 09/14/2015 10:1 2 EST Scan 2 Glove Pairer PROCEDURE/MINOR IBIS GICAL ORDERABLES * PROCEDURE REPORTS - SCANNED (02/11/2014 9:27 EDT) 02/11/2014 9:27 EDT Narrative 02/11/2014 9:50 EDT Procedure Note ADMINISTRATIVE SERVICES OFFICER, SCAN 2 - 02/11/2014 9:27 EDT Scan 2 Glove Pairer PROCEDURE/MINOR IBIS GICAL ORDERABLES * INVASIVE CARDIOLOGY REPORT-SCANNED (02/11/2014 9:27 EDT) 02/11/2014 9:27 EDT Scan 2 Glove Pairer PROCEDURE/MINOR IBIS GICAL ORDERABLES * ECG REPORT - SCANNED (02/10/2014 11:12 EDT) 02/10/2014 11:1 2 EDT Scan 2 Glove Pairer PROCEDURE/MINOR IBIS GICAL ORDERABLES * EKG 12-LEAD (02/08/2014 8:55 EDT) 02/08/2014 8:55 EDT Narrative [facility] EKG - 02/08/2014 11:17 EDT ?[facility] ? Test Date: ?2014-02-08 Pat Name: ? LEEANNE YBARRA ? Department: ?? CVU ? Room: ? CVU07 Gender: ? M ?Operations Research Scientist: ?? [id number] : ?1950 ? Requested By: SPEEDY SREEDIVYA Order Number: [id number] ? Skyler CASTILLO: ?? TODD OCHOA MD ? Measurements Intervals ?[place] ? Rate: ? 92 ? P: ?38 AL: ? 188 ?QRS: ?6 QRSD: ? 112 [...] Pat Name: LEEANNE YBARRA Department: CVU Room: [facility] Gender: M Operations Research Scientist: [id number] : 1950 Requested By: SPEEDY VO Order Number: [id number] Reading MD: TODD OCHOA MD Measurements Intervals [place] Rate: 92 P: 38 AL: 188 QRS: 6 QRSD: 112 T: 36 QT: 355 QTc: 441 Interpretive Statements SINUS RHYTHM MODERATE INTRAVENTRICULAR CONDUCTION DELAY Borderline ECG No previous ECG available for comparison I reviewed the tracing and agreed or edited the report. ElectronicallySigned On 02-08-14 11:17:26 EDT by TODD OCHOA MD. Jolanta MADRID CARDIAC ECG ORDERAB LES Performing Organization Address City/[facility]/ZIP Co de Phone Number [facility] EKG [...] & PF4 OR DERABLES Performing Organization Address [facility] de Phone Number [facility] [address] [place] [address] * (ABNORMAL) HEMAGRAM (02/08/2014 8:13 EDT) WBC [...] & PF4 OR DERABLES Performing Organization Address City/[facility] Co de Phone Number [facility] [address] [place] [address] * CREATININE (02/08/2014 8:13 EDT) Creatinine 0.81 0.66 - 1.25 mg/dl [facility] GFR, Calculated >60 >60 ml/min/1.7 3m2 [facility] Blood specimen (specimen) 02/08/2014 8:13 EDT 02/08/2014 8:36 EDT Jolanta Ruff BS CHEMISTRY & BLOOD G ORDERABLES Performing Organization Address [facility] Co de Phone Number [facility] [address] [place] [address] * BUN (02/08/2014 8:13 EDT) BUN 15 10 - 26 mg/dl [facility] Blood specimen (specimen) 02/08/2014 8:13 EDT 02/08/2014 8:36 EDT Jolanta Ruff [facility] CHEMISTRY & BLOOD G ORDERABLES Performing Organization Address [facility] Phone Number [facility] [address] [place] [address] * ELECTROLYTES (02/08/2014 8:13 EDT) Sodium 139 136 - 145 mEq/L [facility] Potassium 4.1 3.5 - 5.0 mEq/L [facility] Chloride 104 96 - 110 mEq/L [facility] CO2 28 24 - 32 mEq/L [facility] Blood specimen (specimen) 02/08/2014 8:13 EDT 02/08/2014 8:36 EDT Sotoblaine Speedy BS CHEMISTRY & BLOOD G ORDERABLES Performing Organization Address [facility] Co de Phone Number [facility] [address] [place] [address] documented in this encounter Visit Diagnoses Not [...] 02/08/2014 documented in this encounter Care Teams Highway Painter Helper Relationship Specialty Start Date End Date Lee Michele MD [address] [place] [address] PCP - General 02/08/14 documented as of this encounter
--- OUTSIDE RECORDS SUMMARY | 2024-04-24 21:11 | XMS_ITS | Encounter Summary ---
Author Organization [facility] Address [address] [place] [address] Care Team Providers Care Gas Mask Assembler Name Role Phone Arelis Michele MD Primary Care Provider [phone] Encounter Details Date Type Department Care Team (Late st Contact Info) Description 06/02/2021 Lab Requisition [facility] Pathology & Laboratory Medicine - [address] [address] Outr Resulting Lab, Provider Social History Tobacco [...] 11:50 EDT) Hold Hold 06/02/2021 22:16 EDT [facility] Blood VENOUS BLOOD / Unknown 06/02/2021 11:50 EDT 06/02/2021 21:01 EDT Provider Outr Resulting Lab LAB INFO SER VICE AND SUPPORT & PHONE RESULT Performing Organization Address [facility] Co de Phone Number [facility] [address] [place] [address] * HEPATITIS B SURFACE ANTIBODY (06/02/2021 11:50 EDT) Pathologist [facility] Hep B Surface Ab, Quantitative <3.1 See Note mIU/mL 06/05/2021 9:59 EDT [facility] Comment: Reference Range for Hep B Surface Ab, Quant: Positive: >= 10.0 mIU/mL Negative: ??< 10.0 mIU/mL Patient is presumed to not be immune to infection with Hepatitis B Virus. Hep B Surface Ab, Qualitative Negative See Note 06/05/2021 9:59 EDT [facility] Comment: Reference Range for Hep B Surface Ab, Qual: Unvaccinated: ??Negative Vaccinated: ??Positive Blood VENOUS BLOOD / Unknown 06/02/2021 11:50 EDT 06/02/2021 21:00 EDT Provider Outr Resulting Lab CHEMISTRY & BLOOD GAS ORDERABLES Performing Organization Address [facility]/ZIP Co de Phone Number [facility] [address] [place] [address] * HEPATITIS B CORE ANTIBODY (TOTAL) (06/02/2021 11:50 EDT) Pathologist [facility] Hepatitis B Core Ab, Total Negative Negative 06/05/2021 11:10 EDT [facility] Blood VENOUS BLOOD / Unknown 06/02/2021 11:50 EDT 06/02/2021 21:00 EDT Provider Outr Resulting Lab CHEMISTRY & BLOOD GAS ORDERABLES Performing Organization Address City/[facility]/ZIP Co de Phone Number [facility] [address] [place] [address] * HEPATITIS B SURFACE ANTIGEN (06/02/2021 11:50 EDT) Hep B Surface Ag Negative Negative 06/05/2021 10:09 EDT [facility] Blood VENOUS BLOOD / Unknown 06/02/2021 11:50 EDT 06/02/2021 21:00 EDT Provider Outr Resulting Lab CHEMISTRY & BLOOD GAS ORDERABLES Performing Organization Address City/[facility]/ZIP Co de Phone Number [facility] [address] [place] [address] * HEPATITIS C AB W REFLEX TO HCV RNA BY PCR (06/02/2021 11:50 EDT) Hep C Antibody Negative Negative 06/05/2021 10:39 EDT [facility] Blood VENOUS BLOOD / Unknown 06/02/2021 11:50 EDT 06/02/2021 21:00 EDT Provider Outr Resulting Lab CHEMISTRY & BLOOD GAS ORDERABLES Performing Organization Address City/[facility]/ZIP Co de Phone Number [facility] [address] [place] [address] documented in this encounter Visit Diagnoses Not on filedocumented in this encounter Care Teams Gas Mask Assembler Relationship Specialty Start Date End Date Arelis Michele MD [address] [place] [address] PCP - General 02/08/14 documented as of this encounter
--- OUTSIDE RECORDS SUMMARY | 2024-04-24 21:11 | XMS_ITS | Encounter Summary ---
Author Organization [facility] Address [address] [place] [address] Care Team Providers Care Appeals Representative Name Role Phone Arelis Michele MD Primary Care Provider [phone] Encounter Details Date Type Department Care Team (Late st Contact Info) Description 07/02/2023 Lab Requisition [facility] Pathology & Laboratory Medicine - [facility] [address] [place] [address] Mina Cee [address] ANTHONY [address] [place] [phone] Neoplasm of unspecified behavior of bone, soft [...] explore management options, if applicable. 07/03/2023 15:26 [facility] Final Diagnosis A. SKIN OF PRE-AURICULAR REGION, RIGHT, SHAVE BIOPSY: - Basal cell carcinoma, nodular type. - Lesion extends to biopsy base. 07/03/2023 15:26 [facility] Attestation By the signature below, the attending physician certifies that they have 1) personally conducted a gross and/or microscopic examination of the described specimen(s), and/or personally interpreted the results of laboratory testing of the described specimen(s), and 2) personally rendered or confirmed the above diagnosis. 07/03/2023 15:26 [facility] at 1526 Clinical History Abnormal skin growth; clinical diagnosis code: D49.2 07/03/2023 15:26 [facility] Gross Description A. Received in formalin labelled with proper patient identification (initials R, D) and preauricular is an irregular dusky jiang, brown speckled skin shave, 1.5 x 1.0 x 0.1 cm. The margin is inked. Serially sectioned and entirely submitted in A1-A2. DONAVAN STARKEY(ASCP) 07/03/2023 7:20 07/03/2023 15:26 [facility] Performing Lab [facility] 07/03/2023 15:26 [facility] Scanned Images 07/03/2023 15:26 [facility] Tissue SPECIMEN FROM SKIN / Unknown 07/01/2023 10:50 EDT 07/02/2023 18:55 EDT Mina GO PATHOLOGY ORDERABL ES [facility] [address] [place] [address] documented in this encounter Visit Diagnoses Diagnosis Neoplasm of unspecified behavior of bone, soft tissue, and skin documented in this encounter Care Teams Appeals Representative Relationship Specialty Start Date End Date Arelis Michele MD [address] [place] [address] PCP - General 02/08/14 documented as of this encounter
--- OUTSIDE RECORDS SUMMARY | 2024-04-24 21:11 | XMS_ITS | Clinical Summary ---
Author Organization [facility] Address [address] [place] [address] Care Team Providers Care Car Sales Consultant Name Role Phone Arelis Michele MD Primary Care Provider [phone] Allergies Active Allergy Reactions Criticality Noted Date [...] Take 325 mg by mouth daily. Active Surgical History Surgery Date Site/Laterality Comments COLON [...] 2008 Fall Risk Screening 2013 COVID-19 Vaccine (2022-24 season) 2023 Hepatitis C Screen Completed 06/02/2021 Procedures Procedure Name Priority Date/Time Associated Diagnosis Comments HEPATITIS C AB W REFLEX TO HCV RNA BY PCR Today 06/02/2021 11:50 EDT from Last 3 Months or Most Recently Relevant to Health Maintenance Results * HEPATITIS C AB W REFLEX TO HCV RNA BY PCR (06/02/2021 11:50 EDT) Hep C Antibody Negative Negative 06/05/2021 10:39 EDT [facility] Blood VENOUS BLOOD / Unknown 06/02/2021 11:50 EDT 06/02/2021 21:00 EDT Provider Outr Resulting Lab CHEMISTRY & BLOOD GAS ORDERABLES [facility] [address] [place] [address] from Last 3 Months or Most Recently Relevant to Health Maintenance Advance Directives For more information, please contact: [phone] * Full Code (Latest Code Status on File) Date Activated Date Inactivated Comments 02/08/2014 8:03 02/08/2014 16:48 Care Teams Car Sales Consultant Relationship Specialty Start Date End Date Arelis Michele MD [address] [place] [id number] PCP - General 02/08/14
--- OUTSIDE RECORDS SUMMARY | 2024-04-24 21:11 | XMS_ITS | Encounter Summary ---
Author Organization [facility] Address [address] [place] [address] Care Team Providers Care System Support Specialist Name Role Phone Arelis Michele MD Primary Care Provider [phone] Encounter Details Date Type Department Care Team (Late st Contact Info) Description 09/22/2022 Lab Requisition [facility] Pathology & Laboratory Medicine - [facility] [address] [place] [address] Albaro Wade, [address] [place] [address] Neoplasm of unspecified behavior of bone, soft [...] explore management options, if applicable. 09/24/2022 14:49 [facility] Final Diagnosis A. SKIN OF CHEEK, RIGHT MID, SHAVE BIOPSY: - Seborrheic keratosis, ulcerated. 09/24/2022 14:49 [facility] Attestation By the signature below, the attending physician certifies that they have 1) personally conducted a gross and/or microscopic examination of the described specimen(s), and/or personally interpreted the results of laboratory testing of the described specimen(s), and 2) personally rendered or confirmed the above diagnosis. 09/24/2022 14:49 [facility] at 1449 Clinical History Nonhealing skin lesion; clinical diagnosis code: D49.2 09/24/2022 14:49 [facility] Gross Description A. Received in formalin labelled with proper patient identification (initials R, D) and right mid cheek is a shave biopsy of dixon-pink scaly papule (0.8 x 0.5 x 0.1 cm). The margins are inked blue, the specimen is bisected and submitted entirely in A1. Kristy Irizarry 09/24/2022 5:51 09/24/2022 14:49 [facility] Performing Lab [facility] 09/24/2022 14:49 [facility] Scanned Images 09/24/2022 14:49 [facility] Tissue TISSUE SPECIMEN FROM SKIN / Unknown 09/21/2022 11:15 EST 09/22/2022 7:19 EST Albaro Wade DO PATHOLOGY ORDER [facility] [address] [place] [address] documented in this encounter Visit Diagnoses Diagnosis Neoplasm of unspecified behavior of bone, soft tissue, and skin documented in this encounter Care Teams System Support Specialist Relationship Specialty Start Date End Date Arelis Michele MD [address] [place] [address] PCP - General 02/08/14 documented as of this encounter
--- OUTSIDE RECORDS SUMMARY | 2024-04-24 21:11 | XMS_ITS | Encounter Summary ---
Author Organization [facility] Address [address] [place] [address] Care Team Providers Care Senior Librarian Name Role Phone Arelis Michele MD Primary Care Provider [phone] Encounter Details Date Type Department Care Team (Late st Contact Info) Description 01/16/2024 Lab Requisition [facility] Pathology & Laboratory Medicine - [facility] [address] [place], [place] [address] Outr Resulting Lab, Provider Social History Tobacco [...] 1.14 - 1.35 mmol/L 01/16/2024 19:46 EDT [facility] Comment: Testing performed on heparinized plasma. Results may be biased 5% lower than that of whole blood. Blood VENOUS BLOOD / Unknown 01/16/2024 10:53 EDT 01/16/2024 19:42 EDT Provider Outr Resulting Lab CHEMISTRY & BLOOD GAS ORDERABLES [facility] [address] [place] [address] documented in this encounter Visit Diagnoses Not on filedocumented in this encounter Care Teams Senior Librarian Relationship Specialty Start Date End Date Arelis Michele MD [address] [place] [address] PCP - General 02/08/14 documented as of this encounter
--- OUTSIDE RECORDS SUMMARY | 2024-04-24 21:11 | XMS_ITS | Encounter Summary ---
Author Organization [facility] Address [address] [place] [address] Care Team Providers Care Fiberglass Product Tester Name Role Phone Arelis Michele MD Primary Care Provider [phone] Encounter Details Date Type Department Care Team (Late st Contact Info) Description 01/16/2024 Lab Requisition [facility] Pathology & Laboratory Medicine - [facility] [address], [place] [address] Outr Resulting Lab, Provider Social History Tobacco [...] 19 - 88 pg/mL 01/16/2024 21:01 EDT [facility] Blood VENOUS BLOOD / Unknown 01/16/2024 10:53 EDT 01/16/2024 19:42 EDT Provider Outr Resulting Lab CHEMISTRY & BLOOD GAS ORDERABLES [facility] [address] [place] [address] documented in this encounter Visit Diagnoses Not on filedocumented in this encounter Care Teams Fiberglass Product Tester Relationship Specialty Start Date End Date Arelis Michele MD [address] [place] [address] PCP - General 02/08/14 documented as of this encounter
--- OUTSIDE RECORDS SUMMARY | 2024-04-24 21:11 | XMS_ITS | Encounter Summary ---
Author Organization [facility] [place] [address] Care Team Providers Care Lab Scientist Name Role Phone Gloria Espinoza MD Primary Care Provider [phone] Reason for Visit * Reason Onset Date Comments Medication Refill 12/06/2010 Encounter Details Date Type Department Care Team (Late st Contact Info) Description 12/06/2010 [place] [address] Kandy Espana, RN [facility] [place] [address] RA (rheumatoid arthritis) (Primary Dx) Social History [...] PM EDT Hospital En[place] [address] 05/14/2024 1:00 PM EDT Office Visit Dermatology at [facility] [address] [place] [address] 08/18/2024 10:00 AM EST Office [place] [address] Alice Carney APRN [facility] [place] [address] 08/18/2024 12:00 PM EST [place]ointment [place] [address] 12/08/2024 12:00 PM EDT [place]oint[place] [address] documented as of this encounter Visit Diagnoses Diagnosis RA (rheumatoid arthritis)- Primary Rheumatoid arthritis documented in this encounter Care Teams Lab Scientist Relationship Specialty Start Date End Date Gloria Espinoza MD HOSPITALIST SERVICES [address] [place] [address] [place] [address] PCP - General 07/25/10 11/08/13 documented as of this encounter
--- OUTSIDE RECORDS SUMMARY | 2024-04-24 21:11 | XMS_ITS | Encounter Summary ---
Author Organization [facility] Address [address] [place] [address] Care Team Providers Care Burlapper Name Role Phone Arelis Michele MD Primary Care Provider [phone] Encounter Details Date Type Department Care Team (Late st Contact Info) Description 04/12/2023 Lab Requisition [facility] Pathology & Laboratory Medicine - [address] [address] Outr Resulting Lab, Provider Social History Tobacco [...] bacilli isolated VITEK SUSCEPTIBILITY 06/08/2023 16:46 EDT [facility] AFB Smear No Acid Fast Bacilli Seen 06/08/2023 16:46 EDT [facility] Sputum SPUTUM / Unknown 04/12/2023 8:00 EDT 04/12/2023 22:40 EDT Provider Outr Resulting Lab MICROBIOLOGY - GENERAL ORDERABLES [facility] [address] [place] [address] documented in this encounter Visit Diagnoses Not on filedocumented in this encounter Care Teams Burlapper Relationship Specialty Start Date End Date Arelis Michele MD [address] [place] [address] PCP - General 02/08/14 documented as of this encounter
--- OUTSIDE RECORDS SUMMARY | 2024-04-24 21:11 | XMS_ITS | Encounter Summary ---
Author Organization [facility] [place] [address] Care Team Providers Care Trimming Operator Name Role Phone Gloria Espinoza MD Primary Care Provider [phone] Reason for Visit * Reason Onset Date Comments Prior Authorization 01/03/2011 ENBREL not n eeded . Prior Authorization 01/30/2011 Enbrel appro nikolay 01/30/11 to 01/31/12 Encounter Details Date Type Department Care Team (Late st Contact Info) Description 01/03/2011 [place] [address] Kandy Espana, RN [facility] [place] [address] Prior Authorization (ENBREL not needed . ); [...] Medication name/dose/directions: etanercept (ENBREL) 25 mg injection [[id number]] 1 KIT SQ Q TWICE A WEEK Rationale for request: 714.0 RHEUMATOID ARTHRITIS Health plan: [employer] benefits service ID# [id number] The patient's pharmacy has been trying to call him since the beginning of December he has not returnedtheir calls so they closed the account Authorizing sales representative raw fibers name: [employer] Rep. Faxed to health plan on: Called 2nd time on Health plan decision: approved Quantity approved: 30 Authorization number: [id number] Start date: 01/30/11 End date: 01/31/2012 Patient notified? yes Pharmacy notified? yes * Telephone Encounter - Arabella Hsieh - 01/03/2011 2:23 PM EDT Medication Prior Authorization Medication name/dose/directions: etanercept (ENBREL) 25 mg injection [[id number]] 1 KIT SQ Q TWICE A WEEK Rationale for request: 714.0 RHEUMATOID ARTHRITIS Health plan: [employer] benefits service ID# [id number] The patient's pharmacy has been trying to call him since the beginning of December he has not returnedtheir calls so they closed the account Authorizing sales representative raw fibers name: n/a Faxed to health plan on: [...] Hospital [place] [address] 05/14/2024 1:00 PM EDT Office Visit Dermatology at [place] [address] [place] [address] 08/18/2024 10:00 AM EST [place] [address] Alice Carney APRN [facility] [place] [address] 08/18/2024 12:00 PM EST [place] [address] 12/08/2024 12:00 PM EDT [place] [address] documented as of this encounter Visit Diagnoses Not on filedocumented in this encounter Care Teams Trimming Operator Relationship Specialty Start Date End Date Gloria Espinoza MD HOSPITALIST SERVICES [address] [place] [address] [place] [address] PCP - General 07/25/10 11/08/13 documented as of this encounter
--- OUTSIDE RECORDS SUMMARY | 2024-04-24 21:11 | XMS_ITS | Encounter Summary ---
Author Organization [facility] Address [address] [place] [address] Care Team Providers Care Tooling Specialist Name Role Phone Arelis Michele MD Primary Care Provider [phone] Encounter Details Date Type Department Care Team (Late st Contact Info) Description 04/16/2023 Lab Requisition [facility] Pathology & Laboratory Medicine - [address] [address] Outr Resulting Lab, Provider Social History Tobacco [...] bacilli isolated VITEK SUSCEPTIBILITY 06/12/2023 7:53 EDT [facility] AFB Smear No Acid Fast Bacilli Seen 06/12/2023 7:53 EDT [facility] Sputum COLLECTION OF INDUCED SPUTUM / Unknown 04/15/2023 8:00 EDT 04/16/2023 18:36 EDT Provider Outr Resulting Lab MICROBIOLOGY - GENERAL ORDERABLES [facility] [address] [place] [address] documented in this encounter Visit Diagnoses Not on filedocumented in this encounter Care Teams Tooling Specialist Relationship Specialty Start Date End Date Arelis Michele MD [address] [place] [address] PCP - General 02/08/14 documented as of this encounter
--- OUTSIDE RECORDS SUMMARY | 2024-04-24 21:11 | XMS_ITS | Referral Summary ---
Author Organization [facility] Address [address] [place] [address] Care Team Providers Care E Commerce Web Developer Name Role Phone Arelis Michele MD Primary Care Provider [phone] Allergies Active Allergy Reactions Criticality Noted Date [...] C Antibody Negative Negative 06/05/2021 10:39 EDT [facility] Blood VENOUS BLOOD / Unknown 06/02/2021 11:50 EDT 06/02/2021 21:00 EDT Provider Outr Resulting Lab CHEMISTRY & BLOOD GAS ORDERABLES Performing Organization Address City/State/[facility] Co de Phone Number [facility] [address] [place] [address] from Last 3 Months or Most Recently Relevant to Health Maintenance Advance Directives For more information, please contact: [phone] * Full Code (Latest Code Status on File) Date Activated Date Inactivated Comments 02/08/2014 8:03 02/08/2014 16:48 Care Teams E Commerce Web Developer Relationship Specialty Start Date End Date Arelis Michele MD [address] [place] [address] PCP - General 02/08/14
--- OUTSIDE RECORDS SUMMARY | 2024-04-24 21:11 | XMS_ITS | Encounter Summary ---
Author Organization [facility] Address [address] [place] [address] Care Team Providers Care Compatibility Test Engineer Name Role Phone Arelis Michele MD Primary Care Provider [phone] Encounter Details Date Type Department Care Team (Late st Contact Info) Description 10/26/2022 Lab Requisition [facility] Lab - Main Busy [address] [place] [id number] Albaro Wade, [address]ON[address] [place], [place] [address] Basal cell carcinoma of skin, unspecified Social [...] explore management options, if applicable. 10/31/2022 13:15 [facility] Final Diagnosis A. SKIN OF [...] identified. - Final margins negative. 10/31/2022 13:15 [facility] Diagnosis Comment Final margins all interpreted as negative for tumor. Correlation is made with the prior biopsy report ([id number]). 10/31/2022 13:15 [facility] Attestation By the signature below, the attending physician certifies that they have 1) personally conducted a gross and/or microscopic examination of the described specimen(s), and/or personally interpreted the results of laboratory testing of the described specimen(s), and 2) personally rendered or confirmed the above diagnosis. 10/31/2022 13:15 [facility] at 1315 Intraoperative Consultation A. [...] 10/25/22 (frozen section performed and evaluated at [facility]) 10/31/2022 13:15 [facility] Clinical History basal cell carcinoma 10/31/2022 13:15 [facility] Gross Description A. Received fresh [...] entirely submitted in 1 cassette. 10/31/2022 13:15 [facility] Performing Lab [facility] 10/31/2022 13:15 [facility] Scanned Images 10/31/2022 13:15 [facility] Tissue TISSUE SPECIMEN FROM SKIN / Unknown 10/25/2022 12:43 EST 10/26/2022 14:07 EST Tissue specimen (specimen) SPECIMEN FROM SKIN / Unknown 10/25/2022 12:43 EST 10/26/2022 14:07 EST Tissue specimen (specimen) SPECIMEN FROM SKIN / Unknown 10/25/2022 12:43 EST 10/26/2022 14:07 EST Albaro Wade DO PATHOLOGY ORDER [facility] [address] [place] [address] documented in this encounter Visit Diagnoses Diagnosis Basal cell carcinoma of skin, unspecified documented in this encounter Care Teams Compatibility Test Engineer Relationship Specialty Start Date End Date Arelis Michele MD [address] [place] [address] PCP - General 02/08/14 documented as of this encounter
--- OUTSIDE RECORDS SUMMARY | 2024-04-24 21:11 | XMS_ITS | Encounter Summary ---
Author Organization [facility] [place] [address] Care Team Providers Care Ammonia Distiller Name Role Phone Gloria Espinoza MD Primary Care Provider [phone] Encounter Details Date Type Department Care Team (Late st Contact Info) Description 11/02/2010 11:00 AM EST [place] [address] Kandy Espana, RN [facility] [place] [address] Discharge Disposition: Home Social History Tobacco Use [...] PM EDT Hospital En[place] [address] 05/14/2024 1:00 PM EDT Office Visit Dermatology at [facility] [address] [place] [address] 08/18/2024 10:00 AM EST Office [place] [address] Knuuti, Alice E, DRAWER IN [facility] [place] [address] 08/18/2024 12:00 PM EST Appointment Med Infusion at [facility] [place] [address] 12/08/2024 12:00 PM EDT [place] [address] documented as of this encounter [...] RN HEMATOLOGY ORDERABLE S Performing Organization Address [facility] de Phone Number [facility] * (ABNORMAL) CBC (11/02/2010 11:42 AM EST) [...] RN HEMATOLOGY ORDERABLE S Performing Organization Address City/[facility]/ZIP Co de Phone Number [facility] * CREATININE, SERUM (11/02/2010 11:42 AM EST) Creatinine 0.94 0.80 - 1.50 mg/dL [facility] Est Glomerular Filtration Rate >60 >=60 [facility] Comment: The National Kidney Disease Education [...] Espana RN CHEMISTRY ORDERABLES Performing Organization Address City/[facility]/ZIP Co de Phone Number CARLOS DENNIS * BUN (11/02/2010 11:42 AM EST) Blood Urea Nitrogen 16 10 - 20 mg/dL [facility] Blood specimen (specimen) 11/02/2010 11:42 AM EST 11/02/2010 11:48 AM EST Kandy Espana RN CHEMISTRY ORDERABLES [facility] * HEPATIC FUNCTION PANEL (11/02/2010 11:42 AM [...] Espana RN CHEMISTRY ORDERABLES Performing Organization Address City/[facility] Co de Phone Number CARLOS DENNIS documented in this encounter Visit Diagnoses Not on filedocumented in this encounter Care Teams Ammonia Distiller Relationship Specialty Start Date End Date Gloria Espinoza MD HOSPITALIST SERVICES [address] [place] [address] [place] [address] PCP - General 07/25/10 11/08/13 documented as of this encounter
--- OUTSIDE RECORDS SUMMARY | 2024-04-24 21:11 | XMS_ITS | Encounter Summary ---
Author Organization [facility] [place] [address] Care Team Providers Care Security Controls Assessor Name Role Phone Olga Gloria CASTILLO Primary Care Provider [phone] Encounter Details Date Type Department Care Team (Late st Contact Info) Description 08/01/2010 [place] [address] Kandy Espana, RN [facility] [place] [address] Social History Tobacco Use Types Packs/Day Years [...] PM EDT Hospital En[place] [address] 05/14/2024 1:00 PM EDT Office Visit Dermatology at [place] [address] [place] [address] 08/18/2024 10:00 AM EST Office [place] [address] [address] Carney APRN [facility] [place] [address] 08/18/2024 12:00 PM EST Appointment [place] [address] 12/08/2024 12:00 PM EDT [place]ointment [place] [address] documented as of this encounter Procedures Procedure [...] EST 08/01/2010 12:22 PM EST Kandy Espana CAROUSEL OPERATOR ORDERABLE S [facility] MILL[facility]NIUM * HEPATIC FUNCTION PANEL (08/01/2010 12:13 PM EST) Protein, Total 7.0 6.4 - 8.3 gm/dL [facility] Albumin 4.3 3.2 - 5.2 gm/dL [facility]ILL[facility] Aspartate Aminotransferase 28 0 - 39 unit/L [facility] Alanine Aminotransferase 30 0 - 55 unit/L [facility]ERN[facility] MILLENNI[facility] Alkaline Phosphatase 76 40 - 120 unit/L [facility]ERN[facility] MILLENNIUM Bilirubin, Total 0.4 0.2 - 1.3 mg/dL [facility]ERNER MILLENNIUM Bilirubin, Direct 0.1 0.0 - 0.3 mg/dL [facility] Blood specimen (specimen) 08/01/2010 12:13 PM EST 08/01/2010 12:22 PM EST Kandy Espana RN CHEMISTRY ORDERABLES [facility] * HIGH SENSITIVITY CRP (08/01/2010 12:13 PM EST) C-Reactive Protein High Sensitivity 3.5 mg/L [facility] Comment: Interpretations: 1) For cardiac risk [...] PM EST Kandy Espana RN CHEMISTRY ORDERABLES [facility] * REFLEX LAB-A-DIFF (08/01/2010 12:13 PM [...] EST Kandy Espana RN HEMATOLOGY ORDERABLE S CARLOS NEGRETEENNIUM * (ABNORMAL) CBC (08/01/2010 12:13 PM EST) [...] 12.0 fL [facility] MILLENNIUM Blood specimen (specimen) 08/01/2010 12:13 PM EST 08/01/2010 12:22 PM EST Kandy Espana RN HEMATOLOGY ORDERABLE S CARLOS DENNIS documented in this encounter Visit Diagnoses Not on filedocumented in this encounter Care Teams Security Controls Assessor Relationship Specialty Start Date End Date Gloria Espinoza MD HOSPITALIST SERVICES [address] [place] [address] [place] [address] PCP - General 07/25/10 11/08/13 documented as of this encounter
--- OUTSIDE RECORDS SUMMARY | 2024-04-24 21:11 | XMS_ITS | Encounter Summary ---
Author Organization [facility] [place] [address] Care Team Providers Care Hydroelectric Component Machinist Name Role Phone Arelis Michele MD Primary Care Provider [phone] Encounter Details Date Type Department Care Team (Late st Contact Info) Description 04/05/2005 [place] [address] Uriah Brown MD [place], [place] Social History Tobacco Use Types Packs/Day [...] PM EDT Hospital Encounter [place] [address] 05/14/2024 1:00 PM EDT Office Visit Dermatology at [place] [address] [place] [address] 08/18/2024 10:00 AM EST Office [place] [address] Alice Carney, EVP AND CHIEF OPERATING OFFICER [facility] [place] [address] 08/18/2024 12:00 PM EST Appointment [place] [address] 12/08/2024 12:00 PM EDT Appointment [place] [address] documented as of this encounter Procedures Procedure Name Priority Date/Time Associated Diagnosis Comments SURGICAL PATHOLOGY REPORT Routine 04/05/2005 9:37 PM EDT documented in this encounter Results * Surgical Pathology Report (04/05/2005 9:37 PM EDT) Surgical Pathology Report [id number] ? Location: The signing pathologist has (i) [...] Ellipse of dixon skin with a raised, ?0.1-fa-xx-diam eter, central, light brown lesion. Sections/Process ing: [...] report in rendering the final pathologic diagnosis. CARLOS WALKERMARVA 04/05/2005 9:37 PM EDT Uriah Brown MD PATHOLOGY/CYTOLOGY O RDERAJEANINE Performing Organization Address City/State/[facility] Co de Phone Number CARLOS DENNIS documented in this encounter Visit Diagnoses Not on filedocumented in this encounter Care Teams Hydroelectric Component Machinist Relationship Specialty Start Date End Date Arelis Michele MD [address] [place] [address] PCP - General Family Medicine 08/01/18 02/11/24 documented as of this encounter
--- OUTSIDE RECORDS SUMMARY | 2024-04-24 21:11 | XMS_ITS | Encounter Summary ---
Author Organization [facility] [place] [address] Care Team Providers Care Supervisor Scouring Pads Name Role Phone Gloria Espinoza MD Primary Care Provider [phone] Reason for Visit * Reason Onset Date Comments Medication Refill 01/01/2011 Encounter Details Date Type Department Care Team (Late st Contact Info) Description 01/01/2011 Refill [place] [address] Kandy Espana, RN [facility] DR RHEUM[place] [address] RA (rheumatoid arthritis) (Primary Dx) Social History [...] PM EDT Hospital Encounter [place] [address] 05/14/2024 1:00 PM EDT Office Visit Dermatology at [facility] [address] [place] [address] 08/18/2024 10:00 AM EST Office [place] [phone] Alice Carney APRN [facility] [place] [address] 08/18/2024 12:00 PM EST Appointment [place] [phone] 12/08/2024 12:00 PM EDT Appointment [place] [phone] documented as of this encounter Visit Diagnoses Diagnosis RA (rheumatoid arthritis)- Primary Rheumatoid arthritis documented in this encounter Care Teams Supervisor Scouring Pads Relationship Specialty Start Date End Date Gloria Espinoza MD [facility] [address] [place] [address] [place] [address] PCP - General 07/25/10 11/08/13 documented as of this encounter
--- OUTSIDE RECORDS SUMMARY | 2024-04-24 21:11 | XMS_ITS | Encounter Summary ---
Author Organization [facility] [place] [address] Care Team Providers Care Configuration Management Analyst Name Role Phone Gloria Espinoza MD Primary Care Provider [phone] Reason for Visit * Reason Onset Date Comments Medication Problem 01/11/2011 Encounter Details Date Type Department Care Team (Late st Contact Info) Description 01/11/2011 [place] [address] Jarvis Espana, RN [facility] DR [place] [address] Medication Problem Social History Tobacco Use Types Packs/Day Years Used Date Smoking Tobacco: Never Assessed Sex and Gender Information Value Date Recorded Sex Assigned at Not on file Gender Identity Not on file Sexual Orientation Not on file documented as of this encounter Miscellaneous Notes * Telephone Encounter - Jarvis Espana, INTER [employer] - 01/11/2011 12:46 PM EDT Attempted to [...] PM EDT Hospital [place] [address] 05/14/2024 1:00 PM EDT Office Visit Dermatology at [address] [address] 08/18/2024 10:00 AM EST [place] [address] Alice Carney, INTER [employer] [facility] [place] [address] 08/18/2024 12:00 PM EST [place] [address] 12/08/2024 12:00 PM EDT [place] [address] documented as of this encounter Visit Diagnoses Not on filedocumented in this encounter Care Teams Configuration Management Analyst Relationship Specialty Start Date End Date Gloria Espinoza MD [facility] [address] [place] [address] [place] [address] PCP - General 07/25/10 11/08/13 documented as of this encounter
--- OUTSIDE RECORDS SUMMARY | 2024-04-24 21:11 | XMS_ITS | Encounter Summary ---
Author Organization [facility] [place] [address] Care Team Providers Care Review Scheduling Coordinator Name Role Phone Gloria Espinoza MD Primary Care Provider [phone] Reason for Visit * Reason Onset Date Comments Other 01/01/2011 returning call t o pt at his request Encounter Details Date Type Department Care Team (Late st Contact Info) Description 01/01/2011 [place] [address] Kandy Espana, RN [facility] [place] [address] Other (returning call to pt at his [...] PM EDT Hospital [place] [address] 05/14/2024 1:00 PM EDT [facility] [address] [place] [address] 08/18/2024 10:00 AM EST [place] [address] Alice Carney, ITA [facility] [address] 08/18/2024 12:00 PM EST [place] [address] 12/08/2024 12:00 PM EDT [place] [address] documented as of this encounter Visit Diagnoses Not on filedocumented in this encounter Care Teams Review Scheduling Coordinator Relationship Specialty Start Date End Date Gloria Espinoza MD [facility] [address] [place] [address] [place] [address] PCP - General 07/25/10 11/08/13 documented as of this encounter
--- OUTSIDE RECORDS SUMMARY | 2024-04-24 21:12 | XMS_ITS | Encounter Summary ---
Author Organization [facility] Address [address] [place] [address] Care Team Providers Care Major Gifts Director Name Role Phone Augustus Medel MD Primary Care Provider Unavailab le Encounter Details Date Type Department Care Team (Late st Contact Info) Description 04/20/2004 Results Only [facility] - Maple conversion [address] [place] [address] Augustus Morin MD [address] [place] [phone] Social History Tobacco Use Types Packs/Day Years [...] ? LEEANNE AGEE ? Accession #: ? [id number] ? : ? 1950 (Age: 53) ??M [...] A2 ?Distal tips reverse en face (Dr. King)/[facility] End of Report MAL SONG 04/20/2004 04/21/2004 15: 19 EDT Augustus Morin MD PATHOLOGY ORDERABLES [facility] [address] [place] [address] documented in this encounter Visit Diagnoses Not on filedocumented in this encounter Care Teams Major Gifts Director Relationship Specialty Start Date End Date Augustus Medel MD PCP - General 11/17/09 02/22/11 documented as of this encounter
--- OUTSIDE RECORDS SUMMARY | 2024-04-24 21:12 | XMS_ITS | Encounter Summary ---
Author Organization [facility] Address [address] [place] [address] Care Team Providers Care Rn Spine Name Role Phone Austin Medel MD Primary Care Provider Unavailab le Encounter Details Date Type Department Care Team (Late st Contact Info) Description 02/20/2011 Results Only [facility] [phone] Allen Liao, [address] [place], [place] [address] Social History Tobacco Use Types Packs/Day Years [...] RAMSDELL, LEEANNE M ? Accession #: ? [id number] ? : ? 1950 (Age: 60) ??M [...] PATHOLOGY ORDER DARIAN [facility] [address] [place] [address] documented in this encounter Visit Diagnoses Not on filedocumented in this encounter Care Teams Rn Spine Relationship Specialty Start Date End Date Austin Medel MD PCP - General 11/17/09 02/22/11 documented as of this encounter
--- OUTSIDE RECORDS SUMMARY | 2024-04-24 21:12 | XMS_ITS | Encounter Summary ---
Author Organization [facility] Address [address] [place] [address] Care Team Providers Care Epic Specialist Name Role Phone Gloria Espinoza MD Primary Care Provider [phone] Encounter Details Date Type Department Care Team (Late st Contact Info) Description 02/04/2014 Results Only Imaging [facility] [phone] Uriah Sommers MD [address] [place] [address] Social History Tobacco Use Types Packs/Day Years [...] EDT Narrative 02/08/2014 23:23 EDT Cardiology [address] [place] [address] Catheterization Laboratory Study Diagnostic report Patient: Wesly Ybarra ? Study Date: ?02/08/2014 ?Accession #: ? [id number] : ? 1950 Referring Physician: Gloria Espinoza [...] vessel. 4. ??Right heart catheterization. A S-tip Court[place] catheter was successfully advanced ?to the right [...] MD 2014-02-08 23:23 Procedure Note 02/08/[address] [place] [address] Catheterization Laboratory Study Diagnostic report Patient: Wesly Ybarra Study Date:02/08/2014 : 1950 Referring Physician: Gloria Espnioza Diagnostic Attending: Todd Smalls Diagnostic Fellow: Jolanta [...] vessel. 4. Right heart catheterization. A S-tip Court[place] catheter was successfullyadvanced to the right ventricle [...] on filedocumented in this encounter Care Teams Epic Specialist Relationship Specialty Start Date End Date Gloria Espinoza MD [address] [place] [address] PCP - General 10/01/12 02/07/14 documented as of this encounter
--- OUTSIDE RECORDS SUMMARY | 2024-04-24 21:12 | XMS_ITS | Encounter Summary ---
Author Organization [facility] Address [address] [place] [address] Care Team Providers Care White Sourer Name Role Phone Unknown, Provider Primary Care Provider [phone] Encounter Details Date Type Department Care Team (Late st Contact Info) Description 09/30/2012 Results Only [facility] Laboratory Services - [facility] ([facility]) [address] [place], [place] [address] Doe Macias, [address] [facility] [address] [place], [place] [address] Social History Tobacco Use Types Packs/Day Years [...] ? LEEANNE AGEE ? Accession #: ? [id number] ? : ? 1950 (Age: 61) ??M [...] specimens are submitted intact as (D1). ??(Cristobal Florian)/[facility] End of Report MAL SONG 09/30/2012 16:1 4 EST 09/30/2012 16:14 EST Doe Macias DO PATHOLOGY ORDER DARIAN [facility] [address] [place] [address] documented in this encounter Visit Diagnoses Not on filedocumented in this encounter Care Teams White Sourer Relationship Specialty Start Date End Date Unknown, Provider, PCP - General 02/23/11 09/30/12 documented as of this encounter
--- OUTSIDE RECORDS SUMMARY | 2024-04-24 21:12 | XMS_ITS | Encounter Summary ---
Author Organization [facility] Address [address] [place] [address] Care Team Providers Care Teamcenter Consultant Name Role Phone Unavailable Primary Care Provider Unavailabl e Encounter Details Date Type Department Care Team (Late st Contact Info) Description 08/17/2008 Before PRISM Converted Visit (Maple) [facility] - Maple conversion [address] [place] [address] Doe Macias, DO [address] [facility] [address] [place], [place] [id number] Social History Tobacco Use Types Packs/Day Years [...] ? LEEANNE AGEE ? Accession #: ? [id number] ? : ? 1950 (Age: 57) ??M [...] ?? submitted as (A). ? Received in [facility]'s labelled [place] and bx stomach polyp are two ? dixon-pink, irregular, soft tissues measuring 0.2 x 0.2 x 0.1 cm and 0.4 x 0.2 x ?? 0.2 cm. ??The specimens are entirely submitted as (B). ? Received in [facility]'s labelled Amada and bx fundus is a dixon-pink, ? irregular, soft tissue measuring 0.4 x 0.2 x 0.1 cm. ??The specimen is entirely ?? submitted as (C). ? Received in [facility]'s labelled [place] and bx distal esophagus are [...] PATHOLOGY ORDER DARIAN [facility] [address] [place] [address] documented in this encounter Visit Diagnoses Not on filedocumented in this encounter
--- OUTSIDE RECORDS SUMMARY | 2024-04-24 21:12 | XMS_ITS | Encounter Summary ---
Author Organization [facility] Address [address] [place] [address] Care Team Providers Care Title Supervisor Name Role Phone Unavailable Primary Care Provider Unavailabl e Encounter Details Date Type Department Care Team (Late st Contact Info) Description 11/15/[address] [facility] Laboratory Services - [facility] [address] [place], [place] [address] Doe Macias, DO [address] [facility] [address] [place], [place] [id number] Social History Tobacco Use Types Packs/Day Years [...] CYNDIE, LEEANNE M ? Accession #: ? [id number] ? : ? 1950 (Age: 59) ??M [...] screen ? Gross Description: ? Received in [facility]'s fixative labelled Leeanne Ybarra and ascending ?? colon polyp is a dixon-pink tissue measuring 0.8 x 0.4 x 0.4 cm. ??The specimen is trisected and submitted entirely as (A). ? Received in [facility]'s fixative labelled Leeanne Ybarra and polyp 70 cm are two dixon-pink tissues measuring 0.6 x 0.6 x 0.3 cm and 0.5 x 0.2 x 0.1 cm. ??The ?? larger specimen is trisected and submitted entirely as (B1) and the smaller ? specimen is entirely submitted as (B2). ([facility] ? End of Report ? MAL SONG 11/15/2009 11/16/2009 9:0 9 EDT Doe Macias DO PATHOLOGY ORDER DARIAN [facility] [address] [place] [address] documented in this encounter Visit Diagnoses Not on filedocumented in this encounter
== END 2024-04-24 21:03 | disposition home or self-care (01) ==
LOC: LBO 21:02
PROVIDERS: PCP Family Medicine; Visit Provider Nurse Practitioner
DX: Z79.899 Other long term (current) drug therapy (principal); M05.9 Rheumatoid arthritis with rheumatoid factor, unspecified
CPT/HCPCS: 36415; 80053; 85652; 85025; 86140

== ENCOUNTER 2024-05-15 15:28 | Outpatient (REF) | payer OTHER, SELFPAY ==
[2024-05-15 16:05] LABS: FREE T4 0.91 ng/dL (0.76-1.46)
[2024-05-15 22:47] LABS: Parathyroid Hormone,Intact 33 pg/mL (19-88)
== END 2024-05-15 15:29 | disposition home or self-care (01) ==
LOC: NCHCN 15:28
PROVIDERS: PCP Family Medicine; Visit Provider Family Medicine
DX: E03.9 Hypothyroidism, unspecified (principal)
CPT/HCPCS: 83970; 84439; 84443

== ENCOUNTER → 2024-05-27 09:38 | Outpatient (BNVA) | payer OTHER, SELFPAY | PROVIDERS: PCP Family Medicine; Referring Provider Family Medicine; Visit Provider Physician Assistant Surgical | DX: R05.3 Chronic cough (principal); J98.6 Disorders of diaphragm; M06.9 Rheumatoid arthritis, unspecified; G70.9 Myoneural disorder, unspecified; J99 Respiratory disorders in diseases classified elsewhere; B99.9 Unspecified infectious disease | CPT/HCPCS: 99214 ==

== ENCOUNTER 2024-05-29 00:59 | Outpatient (CLI) | payer OTHER, SELFPAY ==
--- NOTE | 2024-05-29 | DI.RAD_ITS ---
Exam(s) XR THORACIC SPINE COMPLETE EXAM: XR THORACIC SPINE COMPLETE CLINICAL HISTORY: PAIN THORACIC SPINE,M54.6. TECHNIQUE: 2D digital imaging was performed of the thoracic spine. Four views were obtained. AP an d lateral views were obtained. COMPARISON: CR XR CHEST 2V PA LATERAL from 01/08/[address] CHEST WO from 04/06/2024 FINDINGS: BONES: There is no fracture or destructive lesion. There is again seen anterior wedging of the T12 v ertebral body which is chronic. The vertebral bodies and posterior elements are unremarkable. DISKS:Alignment is within normal limits. Mild degenerative changes are seen in the thoracic spine. SOFT TISSUE: Visualized lungs are clear. There is unchanged elevation of the right hemidiaphragm. IMPRESSION: 1. No acute fracture or subluxation is seen in the thoracic spine. 2. Unchanged mild anterior wedging of the T12 vertebral body. 3. Mild degenerative changes in the thoracic spine. DATA REPOSITORY: RADIATION DOSE DELIVERED:
== END 2024-05-29 01:19 ==
LOC: DI 01:04
PROVIDERS: PCP Family Medicine; Visit Provider Family Medicine
DX: M51.34 Other intervertebral disc degeneration, thoracic region (principal)
CPT/HCPCS: 72072

== ENCOUNTER 2024-06-16 11:05 | Emergency (ER) | payer OTHER, SELFPAY ==
[2024-06-16] VITALS (15 sets, daily range): BP systolic 126–148; BP diastolic 65–77; PULSE 87–102; RESP 12–29; TEMP 36.4–37.4; O2SAT 91–96
--- NOTE | 2024-06-16 11:28 | ED.GENADUL_ITS ---
Discharge Plan Disposition Patient Disposition: Home Discharge Details Clinical Impression: Compression fx, thoracic spine, Community acquired pneumonia Primary Care Provider: Arelis Michele V ED Provider: Austin Mitchell Home Meds and New Rx's Prescriptions: New amoxicillin-pot clavulanate 875-125 mg tablet 1 tab PO BID Qty: 10 0RF doxycycline hyclate 100 mg capsule 100 mg PO BID Qty: 10 0RF Continued PreserVision AREDS 4,296 mcg-226 mg-90 mg capsule 1 cap PO DAILY albuterol sulfate 90 mcg/actuation HFA aerosol inhaler 2 puff inhalation QID PRN (Reason: shortness of breath or wheezing) Qty: 8.5 3RF venlafaxine 75 mg capsule,extended release 24hr 75 mg PO DAILY Rx Instructions: taken with 150mg capsule bupropion HCl [Wellbutrin SR] 150 mg tablet sustained-release 12 hr 150 mg PO QAM isosorbide mononitrate 30 mg tablet extended release 24 hr 30 mg PO DAILY diclofenac sodium 3 % gel 1 applic TP TID PRN amlodipine 2.5 mg tablet 2.5 mg PO DAILY Qty: 90 3RF atorvastatin 10 mg tablet 20 mg PO DAILY trazodone 50 mg tablet 50 mg PO HS omeprazole [Prilosec] 40 MG capsule,delayed release(DR/EC) 40 mg PO DAILY multivitamin with minerals 1 EACH tablet 1 ea PO DAILY cholecalciferol (vitamin D3) 1,000 UNIT tablet 1,000 unit PO DAILY ascorbic acid (vitamin C) [Vitamin C] 500 MG tablet 500 mg PO DAILY albuterol sulfate [ProAir HFA] 8.5 GM HFA aerosol inhaler 1 - 2 puff Inhalation Q6H PRN metronidazole 1 % gel 1 applic topical BID acetaminophen 500 mg tablet 500 mg PO Q6H PRN albuterol sulfate 2.5 mg /3 mL (0.083 %) solution for nebulization 2.5 mg inhalation QID PRN (Reason: shortness of breath or wheezing) Qty: 180 6RF aspirin [Aspir-81] 81 MG tablet,delayed release (DR/EC) 81 mg PO DAILY nitroglycerin 0.4 mg Tablet, Sublingual 0.4 mg SUBLINGUAL ONCE metoprolol succinate 25 mg tablet extended release 24 hr 25 mg PO HS venlafaxine [Effexor XR] 150 mg Capsule,Extended Release 24hr 150 mg PO DAILY levothyroxine 100 mcg tablet 100 mcg PO DAILY Discharge Instructions Additional Instructions: You are seen in the emergency department for cough and fevers. Your CAT scan showed possibility of an early pneumonia for which you are receiving antibiotics that you should take as directed. If you develop any worsening shortness of breath cough nausea vomiting or fevers please return to the emergency department. You are also receiving follow-up at [facility] as you are found to have a compression fracture of your upper thoracic vertebral body. This is likely the cause of your back pain. Please avoid lifting anything heavier than 10 pounds and twisting or bending. Please follow-up with your primary care provider next week. For your pain please take medications as follows: 1. Take acetaminophen (Tylenol), 1,000 mg (two 500 mg tabs) every 6 hours Discharge Data Discharge Date/Time-TO BE ENTERED AT DEPARTURE: 06/16/24 14:42 HPI General Date/Time Provider Initiated Documentation: 06/16/24 11:28 . HPI Narrative: MDM This is a mildly tachycardic 73-year-old male with history of recent pneumonia with fevers cough shortness of breath concerning for the possibility of pneumonia for which patient will undergo chest x-ray. Given tachycardia and possibility of sepsis I also ordered blood cultures treat empirically cefepime vancomycin and checked a lactate. No pain or proportion to suggest necrotizing soft tissue infection. Patient is immunocompromised making him at increased risk for opportunistic infection. No falls to suggest pneumothorax. No significant posterior oropharynx erythema to suggest strep pharyngitis. Uvula midline so my suspicion is low for peritonsillar abscess. Good range of motion in neck so doubt retropharyngeal abscess. Soft nontender abdomen so doubt appendicitis. Given urinary frequency will send urinalysis to assess for UTI. No focal neurological deficits nor weakness to suggest CVA send indication for MRI. No tonic-clonic activity to suggest seizure so we will defer EEG. No nuchal rigidity to suggest meningitis and no indication for lumbar puncture. No unintentional weight gain to suggest acute heart failure. 12:54 PM Basic metabolic panel with no JHONATAN. No acute electrolyte abnormalities. Negative COVID flu RSV. Chest x-ray with new mild anterior wedging of the T7 vertebral body no focal consolidations. Urinalysis with trace blood but nitrite leukoesterase negative. No flank pain to suggest ureterolithiasis. CBC lacks anemia thrombocytopenia and leukocytosis. Reassuring normal lactate. Venous blood gas lacks acidemia and hypercarbia. Initial troponin reassuring at 6 ng/L. 2:26 PM I met with the patient after his CAT scan resulted. He had some bronchial wall thickening in his lower lobes but had no sign of pneumonia. He has no history of COPD to suggest reactive airway disease. Given his significant comorbidities will treat him with 5 days of doxycycline and amoxicillin clavulanic acid given his clinical signs of pneumonia. He was also found to have a mild compression fracture of the superior endplate of T7. I spoke with the transfer center at [facility] to place a spine referral. Will have patient avoid lifting greater than 20 pounds and any twisting and bending. I have ordered upright AP and lateral thoracic films. Patient and I discussed return indications including any worsening shortness of breath cough or any falls. He understood his return indications. His tachycardia resolved. I advised PCP follow-up. Chronic conditions affecting the care of the patient: Recurrent pneumonia History obtained from an outside historian: N/A External record review: [facility] [place] [facility] Diagnostic interpretations performed by me: Per my independent interpretation chest x-ray shows: No acute cardiopulmonary process Per my independent interpretation EKG shows: Normal sinus rhythm at a rate of 96 with interventricular conduction delay QRS of 102 ms. NE and QTc within normal limits. Normal axis. Mild left chest wall ST segment elevation. Appear slightly more pronounced compared to prior dated earlier this year. No T wave versions. No ST segment depressions. ]Medications: Antibiotics fluids Social determinants of health affecting disposition: N/A Management discussed with: N/A Treatment/interventions considered: Hospitalization but deferred Response to therapies provided: Improved heart rate in the ED HPI This is a 73-year-old male coming from senior housing with history of neuromuscular respiratory weakness and diaphragm paralysis now with cough and shortness of breath fevers chills and productive sputum. Patient has had a sore throat. He reports for the past 2 days his symptoms have worsened. He has had a history of fevers. He has taken no recent falls. He says that his cough is productive of a green phlegm. He has had some difficulty with balancing. He has had no abdominal pain nor dysuria. He has endorsed some urinary frequency. He has finished recent taper of prednisone 5 days ago. He has not recently been on any antibiotics. He has no history of COPD. He has not noticed any unint entional weight gain nor leg swelling. Exam General: Elderly-appearing in no acute distress speaking in complete sentences. Head: Normocephalic, atraumatic. Eye: Extraocular eye movements intact. No conjunctival injection. No scleral icterus. Ear, nose, mouth, throat: Grossly normal inspection. Normal voice, handling secretions normally. Neck: Trachea midline. Cardiovascular: Well-perfused distal extremities. Regular rate and rhythm Respiratory: Nonlabored respiration. Diffuse coarse breath sounds. No wheezes. No prolonged expiratory phase. Gastrointestinal: Nondistended abdomen. Soft nontender Musculoskeletal: No significant lower extremity pitting edema. Moving all 4 extremities spontaneously. Skin: Normal for age and race, grossly normal temperature and turgor. No acute rash. Neurologic: Alert and appropriate, no apparent acute deficits. GCS 15. Psychiatric: Mood and manner are appropriate. Grooming and personal hygiene are appropriate. Related Data Home Medications ?Medication ?Instructions ?Recorded ?Confirmed Prilosec 40 mg capsule,delayed 40 mg PO DAILY 11/11/12 06/16/24 release (omeprazole) cholecalciferol (vitamin D3) 25 1,000 unit PO DAILY 11/11/12 06/16/24 mcg (1,000 unit) tablet multivitamin with minerals 1 ea PO DAILY 11/11/12 06/16/24 aspirin 81 mg tablet,delayed 81 mg PO DAILY 02/20/14 06/16/24 release (Aspir-) ascorbic acid (vitamin C) 500 mg 500 mg PO DAILY 09/28/15 06/16/24 tablet (Vitamin C) albuterol sulfate 90 mcg/actuation 1 - 2 puff inhalation Q6H PRN 12/22/15 06/16/24 aerosol inhaler (ProAir HFA) nitroglycerin 0.4 mg sublingual 0.4 mg sublingual ONCE 05/28/18 06/16/24 tablet venlafaxine 150 mg 150 mg PO DAILY 07/01/19 06/16/24 capsule,extended release 24 hr (Effexor XR) bupropion HCl 150 mg tablet,12 hr 150 mg PO QAM 12/08/19 06/16/24 sustained-release (Wellbutrin SR) diclofenac sodium 3 % topical gel 1 applic topical TID PRN 12/08/19 06/16/24 isosorbide mononitrate 30 mg 30 mg PO DAILY 12/08/19 06/16/24 tablet,extended release 24 hr venlafaxine 75 mg capsule,extended 75 mg PO DAILY 12/08/19 06/16/24 release 24 hr metoprolol succinate 25 mg 25 mg PO HS 03/07/21 06/16/24 tablet,extended release 24 hr amlodipine 2.5 mg tablet 2.5 mg PO DAILY #90 tabs 03/24/21 06/16/24 atorvastatin 10 mg tablet 20 mg PO DAILY 04/02/22 06/16/24 trazodone 50 mg tablet 50 mg PO HS 04/02/22 06/16/24 metronidazole 1 % topical gel 1 applic topical BID 07/11/22 06/16/24 acetaminophen 500 mg tablet 500 mg PO Q6H PRN 02/20/23 06/16/24 albuterol sulfate 2.5 mg/3 mL 2.5 mg (3 mL) inhalation QID PRN 07/09/23 06/16/24 (0.083 %) solution for nebulization shortness of breath or wheezing #180 mL vitamins A,C,N-eilh-kcniev 4,296 1 cap PO DAILY 08/06/23 06/16/24 mcg-226 mg-90 mg capsule (PreserVision AREDS) levothyroxine 100 mcg tablet 100 mcg PO DAILY 11/07/23 06/16/24 albuterol sulfate 90 mcg/actuation 2 puff inhalation QID PRN 04/02/24 06/16/24 aerosol inhaler shortness of breath or wheezing #8.5 grams amoxicillin 875 mg-potassium 1 tab PO BID #10 tabs 06/16/24 clavulanate 125 mg tablet doxycycline hyclate 100 mg capsule 100 mg PO BID #10 caps 06/16/24 Previous Rx's ?Medication ?Instructions ?Recorded amlodipine 2.5 mg tablet 2.5 mg PO DAILY #90 tabs 03/24/21 albuterol sulfate 2.5 mg/3 mL 2.5 mg (3 mL) inhalation QID PRN 07/09/23 (0.083 %) solution for nebulization shortness of breath or wheezing #180 mL albuterol sulfate 90 mcg/actuation 2 puff inhalation QID PRN 04/02/24 aerosol inhaler shortness of breath or wheezing #8.5 grams amoxicillin 875 mg-potassium 1 tab PO BID #10 tabs 06/16/24 clavulanate 125 mg tablet doxycycline hyclate 100 mg capsule 100 mg PO BID #10 caps 06/16/24 Allergies Allergy/AdvReac Type Severity Reaction Status Date / Time abatacept (From [facility]) AdvReac Severe Nausea Verified 06/16/24 11:25 lisinopril AdvReac Mild cough Verified 06/16/24 11:25 calcium AdvReac kidney Verified 06/16/24 11:25 stones General Stated Complaint: [facility]Medical SHANEKA: 3 Course Vital Signs Vital signs: Vital Signs Temperature 36.4 C 06/16/24 11:21 Pulse 102 H 06/16/24 11:21 Respiratory Rate 12 06/16/24 11:21 Blood Pressure 128/77 06/16/24 11:21 Pulse Oximetry 94 06/16/24 11:21 Temperature 36.4 C 06/16/24 11:21 Temperature Source Oral 06/16/24 11:21 Pulse 102 H 06/16/24 11:21 Respiratory Rate 12 06/16/24 11:21 Blood Pressure 128/77 06/16/24 11:21 Blood Pressure Position Sitting 06/16/24 11:21 Pulse Oximetry 94 06/16/24 11:21 Oxygen Delivery Method Room Air 06/16/24 11:21 Oxygen Flow Rate 0 06/16/24 11:21 Pain Level 8 06/16/24 11:21 Medical Decision Making Quality:SDOH Health Related Social Needs: Health related social needs food insecurity(Z59.41) Health related social needs details [facility] and [employer] unseling referral to [facility]. PFS All Active Problems (Updated 06/16/24 @ 14:29 by Austin Mitchell MD) Community acquired pneumonia (Acute) Compression fx, thoracic spine (Acute) Hypoxic respiratory failure (Acute) Discharge planning issues (Acute) Acute hypoxic respiratory failure (Acute) Wheezing on auscultation (Acute) Recurrent infections (Acute) Neuromuscular respiratory weakness (Acute) Diaphragm paralysis (Acute) Macular degeneration (Acute) Sacroiliac joint pain (Acute) Hip pain (Acute) Knee pain (Acute) Prediabetes (Acute) Dental infection (Acute) Skin lesion (Acute) COVID-19 virus infection (Acute) Nasal mucosa dry (Acute) Chronic cough (Acute) Basal cell carcinoma (Acute) Actinic keratosis (Acute) Ureterolithiasis (Acute) Coronary artery disease (Chronic) Chest pain (Acute) Wheezing (Acute) Nocturnal cough (Acute) Cardiomyopathy (Acute) SOB (shortness of breath) (Acute) Melena (Acute) Dysphagia (Acute) Strain of calf muscle (Acute 06/30/19) Leg hematoma (Acute 06/30/19) Tubular adenoma of colon (Chronic) GERD (gastroesophageal reflux disease) (Chronic) Xerostomia (Acute 08/17/13) Winged scapula of left side (Acute 04/09/16) Tendinitis of left rotator cuff (Acute 04/09/16) Rhinitis (Acute 08/31/13) Personal history of antineoplastic chemotherapy (Acute 10/14/17) 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) Epistaxis (Acute 10/14/17) Acute sinusitis (Acute 08/17/13) Medical History Pneumonia CAD (coronary artery disease) of artery bypass graft BPH (benign prostatic hyperplasia) Rheumatoid arthritis (10/14/17) Sjogren syndrome, unspecified Actinic keratoses Tubular adenoma Other osteoporosis with current pathological fracture, vertebra(e), subsequent encounter for fracture with routine healing Hypertension Rosacea GERD (gastroesophageal reflux disease) Peripheral neuropathy Sicca syndrome Overweight History of partial colectomy Hypothyroidism Hyperlipidemia Dyspnea Depression Pulmonary hypertension Anxiety Pharyngeal disorder Polyarthralgia Steroid-induced osteoporosis Elevated hemidiaphragm Epistaxis Hx of ventral hernia repair Insomnia Rheumatoid arthritis Complicated grief Surgical History Stented coronary artery (~03/20/19) Hernia Repair, Incisional Colonoscopy - IV Sedation (~11/15/09) 09/30/2019 [facility] sessile repeat 3 yrs per Violeta note Colectomy Social History Smoking/Tobacco Use Status: Never Smoking risk assessment performed?: Yes Alcohol Intake: never Drug use: Never Substance use type: does not use Housing: apartment What type of physical activity do you participate in: none Do you feel safe at home: Yes Do you feel safe in your relationship?: Yes
--- NOTE | 2024-06-16 11:45 | RT.EKG_ITS ---
APPROVED REPORT Exam: Resting ECG Reason for Exam: Pneumonia ? Patient Location: E HR:96 bpm ECG Measurements Heart Rate 96 AXIS GA 186 P 43 QRSd 102 QRS 31 QT 341 T 15 QTc 432 Conclusion Sinus rhythm...normal P axis, V-rate 60- [address] elevation, lateral leads...ST >0.06mV, I aVL V5 V6 Normal sinus rhythm at a rate of 96 with interventricular conduction delay QRS of 102 ms. GA and QTc within normal limits. Normal axis. Mild left chest wall ST segment elevation. Appear slightly mor e pronounced compared to prior dated earlier this year. No T wave versions. No ST segment depressio ns.
[2024-06-16 12:12] LABS: Abs Immature Grans 0.03 10^3/uL (0.0-0.06); Absolute Basophil Count 0.04 10^3/uL (0.0-0.2); Absolute Eosinophil Count 0.68 10^3/uL (0.0-0.7); Absolute Lymphocyte Count 1.46 10^3/uL (1.2-3.4); Absolute Monocyte Count 0.86 10^3/uL (0.1-0.8); Absolute Neutrophil Count 7.62 10^3/uL (1.2-6.7); Basophils % 0.4 %; Eosinophils % 6.4 %; HCT 45.5 % (40.0-50.0); HGB 14.7 g/dL (13.5-17.5); Immature Grans % 0.3 %; Lymphocytes % 13.7 %; MCH 29.5 pg (27.0-33.0); MCHC 32.3 % (32.0-36.0); MCV 91 fL (80-95); MPV 9.1 fL (8.0-11.0); Neutrophils % 71.2 %; Platelet Count 203 10^3/uL (130-400); RBC 4.98 10^6/uL (4.36-5.78); RDW 13.9 % (11.8-14.1); RDW-SD 46.6 fL; WBC 10.69 10^3/uL (4.4-10.8)
[2024-06-16 12:15] LABS: COVID-19 PCR Negative (Negative); Influenza A PCR Negative (Negative); Influenza B PCR Negative (Negative); RSV PCR Negative (Negative)
[2024-06-16] MEDS: Normal Saline 500 ML IV (12:16)
[2024-06-16] MEDS: CEFEPIME 2 GM in Normal Saline 100 ML IVPB (12:16)
[2024-06-16 12:17] LABS: Source Nasopharynx
[2024-06-16 12:19] LABS: TCO2 (Venous) 29 mmol/L (24-29); pCO2 (Venous) 50 mmHg (41-51); pH (Venous) 7.35 (7.31-7.41); pO2 (Venous) 48 mmHg
[2024-06-16 12:20] LABS: BE (Venous) 2 mmol/L (-2-3); HCO3 (Venous) 27 mmol/L (23-28); Lactate 1.18 mmol/L (0.9-1.7); O2 Sat (Venous) 81 %
[2024-06-16 12:21] LABS: Bilirubin Negative (Negative); Blood Trace-intact (Negative); Clarity Clear (Clear); Glucose Negative (Negative); Ketones Negative (Negative); Leukocyte Esterase Negative (Negative); Nitrite Negative (Negative); Urobilinogen 0.2 mg/dL (Up to 0.2)
--- NOTE | 2024-06-16 12:31 | DI.RAD_ITS ---
Exam(s) XR CHEST 2V PA LATERAL EXAM: XR CHEST 2V PA LATERAL CLINICAL HISTORY: Cough TECHNIQUE: 2D digital imaging was performed of the chest. Two images were obtained. PA and lateral views were obtained. COMPARISON: CR XR CHEST 2V PA LATERAL from 12/30/2023 CR XR CHEST 2V PA LATERAL from 01/08/[address] CHEST WO from 04/06/2024 CR XR THORACIC SPINE COMPLETE from 05/29/2024 FINDINGS: MEDIASTINUM: Normal. HEART: Normal. PULMONARY VASCULATURE: Normal. LUNGS: Clear. PLEURAL SPACE: No pleural effusion or pneumothorax. BONE:Within normal limits for the patient's age. There is stable mild anterior wedging of the T12 ve rtebral body. There is now mild anterior wedging of the T7 vertebral body. OTHER FINDINGS:There is unchanged elevation of the right hemidiaphragm. IMPRESSION: 1. No focal consolidating infiltrates. 2. New mild anterior wedging of the T7 vertebral body. There is loss of less than 5 percent of the h eight of the vertebral body anteriorly. DATA REPOSITORY: RADIATION DOSE DELIVERED:
[2024-06-16] MEDS: VANCOMYCIN/WATER (PEG) 2 GM/400 ML BAG IVPB (12:34)
[2024-06-16 12:35] LABS: Bacteria Rare HPF (Negative); C & S Indicated? No; Crystals Negative HPF (Negative); Epithelial Cells Negative HPF (Negative); Mucus Negative (Negative); WBC 0-2 HPF (0-5)
[2024-06-16 12:43] LABS: Anion Gap 6.6 mmol/L (3-11); BUN 10 mg/dL (7-18); CO2 29.4 mmol/L (21.0-32.0); Calcium 9.3 mg/dL (8.5-10.1); Chloride 105 mmol/L (98-107); Estimated GFR 78.49 (mL/min/1.73m2); Glucose 101 mg/dL (74-106); Sodium 141 mmol/L (136-145)
--- NOTE | 2024-06-16 12:45 | DI.CT_ITS ---
Exam(s) CT CHEST WO EXAM: CT CHEST WO CLINICAL HISTORY: cough. TECHNIQUE: Imaging protocol: Axial computed tomography images were obtained and coronal and sagittal reformatted images were created and reviewed. COMPARISON: CT CT CHEST WO from 04/06/2024 CR XR CHEST 2V PA LATERAL from 06/16/2024 FINDINGS: The examination is limited due to patient motion artifact. Tracheobronchial tree: Patent where visualized. Mild bronchiectatic changes are seen in the lung base s. There is mild wall thickening in the bronchi in the lower lobes bilaterally. Pulmonary parenchyma: The opacity previously seen in the posterior aspect of the left upper lobe has resolved completely. There is scarring seen in the right middle lobe and right lower lobe. There is unchanged elevation of the right hemidiaphragm. No new focal consolidating infiltrates are present. Mediastinum and Maria Dolroes: No dominant adenopathy or fluid collection. The esophagus is unremarkable.There is a small hiatal hernia. Thyroid gland: Unremarkable. Pleura: No effusion or pneumothorax. Heart: Cardiomegaly. Coronary artery calcifications are present. No pericardial effusion. Aorta: Thoracic aorta non-dilated. Atherosclerotic calcification is present. Upper abdomen: Unremarkable. Lymph nodes: Within normal limits. Soft tissues: Unremarkable. Bones:Within normal limits for the patient's age. There has been interval development of a mild comp ression of the superior endplate of T7. There is loss of less than 10 percent of the height of the v ertebral body. IMPRESSION: 1. Interval resolution of the left upper lobe infiltrate. 2. Bronchial wall thickening in the lower lobes bilaterally. This can be seen with an inflammatory o r infectious process such as bronchitis or reactive airways disease. 3. Interval development of a mild compression of the superior endplate of T7 since 04/06/2024. There i s loss of less than 5-10 percent of the height of the vertebral body noted. No central spinal canal stenosis results. RADIATION DOSE DELIVERED: 402.74mGy.cm Total DLP 402.74mGy.cm Total DLP DATA REPOSITORY: All CT scans at this facility are submitted to the National Radiology Data Registry (NRDR) Dose Index Registry (DIR) with the [employer] (ACR). RADIATION OPTIMIZATION: All CT scans at this facility use at least one of these dose optimization te chniques: automated exposure control; mA and/or kV adjustment per patient size (includes targeted exa ms where dose is matched to clinical indication); or iterative reconstruction.
[2024-06-16 12:53] LABS: Troponin I 6 ng/L (<or=76)
[2024-06-16 13:29] LABS: Troponin I 6 ng/L (<or=76)
--- NOTE | 2024-06-16 13:45 | DI.RAD_ITS ---
Exam(s) XR THORACIC SPINE COMPLETE EXAM: XR THORACIC SPINE COMPLETE CLINICAL HISTORY: Upright AP and lateral views compression fracture. TECHNIQUE: 2D digital imaging was performed. COMPARISON: CT CT CHEST WO from 04/06/2024 CR XR THORACIC SPINE COMPLETE from 05/29/[address] CHEST WO from 06/16/2024 FINDINGS: 3 views Mild loss of height of T7 vertebral body is again noted. On the frontal view this appears to have sl ightly further progressed when compared to images of 05/29/2024. This was not evident on CT scan of 04/06/2024. Chronic wedge fracture of T12 remains unchanged. No other additional compression fractures evident. No abnormal widening of the paraspinal lines. No significant thoracic scoliosis. IMPRESSION: Chronic T12 compression fracture unchanged from 05/29/2024. More recent occurring T7 compression fracture appears slightly progressed when compared to 05/29/2024 . This is evident on the frontal view DATA REPOSITORY: RADIATION DOSE DELIVERED:
[2024-06-16] MEDS: Doxycycline Hyclate 100 MG CAP PO (14:35)
[2024-06-16] MEDS: Amoxicillin 875/Clav. 125 TAB PO (14:35)
== END 2024-06-16 14:42 | disposition home or self-care (01) ==
PROVIDERS: Emergency Provider Emergency Medicine; PCP Family Medicine
DX: J18.9 Pneumonia, unspecified organism (principal); M48.54XA Collapsed vertebra, not elsewhere classified, thoracic region, initial encounter for fracture; I25.10 Atherosclerotic heart disease of native coronary artery without angina pectoris; I10 Essential (primary) hypertension; E78.5 Hyperlipidemia, unspecified; M06.9 Rheumatoid arthritis, unspecified; M35.00 Sjogren syndrome, unspecified; Z79.82 Long term (current) use of aspirin; Z79.60 Long term (current) use of unspecified immunomodulators and immunosuppressants
CPT/HCPCS: 71250; 80048; 82805; 87040; 87637; 93005; 96365; 96366; 96367; 99285; 71046; 72072; 81003; 81015; 83605; 84484; 85025; 93010; 99284; J0692; J3372

== ENCOUNTER 2024-06-19 02:26 | Outpatient (CLI) | payer OTHER, SELFPAY ==
--- NOTE | 2024-06-19 11:43 | W.PFT ---
Date of service: 06/19/24 Time of Service: 08:13 Pulmonary Function Test Result Indications: Neuromuscular respiratory weakness Interpretation Spirometry: No airflow limitation. Restrictive appearing spitometry. There was a 25% and 13% drop in FEV1 and FVC respectively with supine positioning. Impression Restrictive spirometry with a significant decline in FEV1 and FVC with supine positioning. Clinical Correlation therefore is recommended.
== END 2024-06-19 02:27 | disposition home or self-care (01) ==
LOC: RT 02:26
PROVIDERS: PCP Family Medicine; Visit Provider Student in an Organized Health Care Education/Training Program
DX: G70.9 Myoneural disorder, unspecified (principal); J99 Respiratory disorders in diseases classified elsewhere
CPT/HCPCS: 94010

== ENCOUNTER 2024-06-27 18:38 | Inpatient (IN) | payer OTHER, SELFPAY ==
[2024-06-27] VITALS (31 sets, daily range): BP systolic 157–174; BP diastolic 68–97; PULSE 111–128; RESP 12–40; TEMP 36.4–36.8; O2SAT 84–97
--- NOTE | 2024-06-27 18:45 | RT.EKG_ITS ---
APPROVED REPORT Exam: Resting ECG Reason for Exam: shortness of breath Patient Location: E HR:120 bpm ECG Measurements Heart Rate 120 AXIS IA 185 P 37 QRSd 96 QRS -16 QT 310 T 17 QTc 437 Conclusion Sinus tachycardia, rate 120 No interval abnormalities PACs No STEMI
--- NOTE | 2024-06-27 19:00 | DI.RAD_ITS ---
Exam(s) XR PORTABLE CHEST AP EXAM: XR PORTABLE CHEST AP CLINICAL HISTORY: fever, shortness of breath,. TECHNIQUE: 2D digital imaging was performed. COMPARISON: CR XR CHEST 2V PA LATERAL from 01/08/[address] CHEST WO from 06/16/2024 CR XR CHEST 2V PA LATERAL from 06/16/2024 FINDINGS: Single AP portable view. Elevated right hemidiaphragm again noted Heart size is upper normal. The mediastinum is not widened. There are increased markings throughout both lung kwok. There also appears to be some infiltrate i n the right lower lobe/posterior basal segment. No large pleural effusions. IMPRESSION: Increasing markings bilateral lung kwok. There also appears to be some infiltrate in the right joselyn g base posterior basal segment right lower lobe.Correlation with clinical findings recommended. DATA REPOSITORY: RADIATION DOSE DELIVERED:
[2024-06-27] MEDS: methylPREDNISolone SUCC 125 MG VIAL IVP (19:09)
[2024-06-27] MEDS: Normal Saline 500 ML IV (19:09)
[2024-06-27 19:11] LABS: BE (Venous) 8 mmol/L (-2-3); HCO3 (Venous) 33 mmol/L (23-28); O2 Sat (Venous) 45 %; TCO2 (Venous) 30 mmol/L (24-29); pCO2 (Venous) 58 mmHg (41-51); pH (Venous) 7.36 (7.31-7.41); pO2 (Venous) 25 mmHg
[2024-06-27 19:12] LABS: Lactate 1.2 mmol/L (0.6-1.4)
--- NOTE | 2024-06-27 19:15 | DI.CT_ITS ---
Exam(s) CT CHEST PE CTA EXAM: CT CHEST PE CTA CLINICAL HISTORY: fever, hypoxia, tachypnea. TECHNIQUE: Imaging Protocol: CT angiography of the chest was performed using pulmonary embolus edgar col. Multi planar reconstructions were performed. CONTRAST MATERIAL: Intravenous: Omnipaque 350 Contrast volume: 100 cc COMPARISON: CT CT CHEST WO from 06/16/2024 CR,XR XR PORTABLE CHEST AP from 06/27/2024 FINDINGS: CHEST: PULMONARY ARTERIES: There are no intraluminal filling defects to suggest acute pulmonary emboli. LUNGS: There is similar appearing confluent infiltrate in both lower lobes posterior basal segments. There is also patchy infiltrate evident in the posterior segment right upper lobe as well as in the right middle lobe. Some patchy infiltrate is seen in the anterior aspect of the left upper lobe and in the lingular segment of the left lung.. There are no pleural effusions. No significant focal fin dings in the trachea and mainstem bronchi. MEDIASTINUM: There is no hilar nor mediastinal adenopathy. Visualized thyroid unremarkable. CARDIAC: Heart size upper normal. No pericardial effusion. Caliber of thoracic aorta is within norm al limits and there is no evidence of dissection. There is no significant shift of the interventri cular septum. There is no contrast reflux into the intrahepatic IVC. PARTIALLY VISUALIZED UPPERMOST ABDOMEN: Elevated right hemidiaphragm again noted. OSSEOUS: There is a superior endplate compression fracture of T7 appearing minimally progressed from 06/16/2024.. IMPRESSION: 1. No evidence of acute pulmonary emboli. No evidence of aortic dissection nor pericardial effusion. 2. However, there is significant infiltrate in both lower lobes as well as right middle and left lung as above. There are no pleural effusions nor intrathoracic adenopathy. 3. Subacute T7 compression fracture with slight interval further height loss. RADIATION DOSE DELIVERED: 219.14mGy.cm Total DLP DATA REPOSITORY: All CT scans at this facility are submitted to the National Radiology Data Registry (NRDR) Dose Index Registry (DIR) with the [employer] (ACR). RADIATION OPTIMIZATION: All CT scans at this facility use at least one of these dose optimization te chniques: automated exposure control; mA and/or kV adjustment per patient size (includes targeted exa ms where dose is matched to clinical indication); or iterative reconstruction.
[2024-06-27] MEDS: Albuterol/Ipratropium 3 ML UPD VIAL UPD ×2 (19:17→20:35)
[2024-06-27 19:19] LABS: Abs Immature Grans 0.13 10^3/uL (0.0-0.06); Absolute Basophil Count 0.04 10^3/uL (0.0-0.2); Absolute Eosinophil Count 0.33 10^3/uL (0.0-0.7); Absolute Lymphocyte Count 1.89 10^3/uL (1.2-3.4); Absolute Monocyte Count 1.29 10^3/uL (0.1-0.8); Absolute Neutrophil Count 18.58 10^3/uL (1.2-6.7); Basophils % 0.2 %; Eosinophils % 1.5 %; HCT 44.8 % (40.0-50.0); HGB 14.4 g/dL (13.5-17.5); Immature Grans % 0.6 %; Lymphocytes % 8.5 %; MCH 29.3 pg (27.0-33.0); MCHC 32.1 % (32.0-36.0); MCV 91 fL (80-95); MPV 9.5 fL (8.0-11.0); Monocytes % 5.8 %; Neutrophils % 83.4 %; Platelet Count 269 10^3/uL (130-400); RBC 4.91 10^6/uL (4.36-5.78); RDW 13.9 % (11.8-14.1); RDW-SD 47.3 fL; WBC 22.28 10^3/uL (4.4-10.8)
[2024-06-27] MEDS: CEFEPIME 2 GM in Normal Saline 100 ML IVPB (19:34)
--- NOTE | 2024-06-27 19:37 | W.ED.GENAD ---
Discharge Plan Disposition Patient Disposition: Admit to [facility] Discharge Details Clinical Impression: Pneumonia, Respiratory failure Admit Date/Time: 06/27/24 21:40 Admit Provider: Wesly Marinelli Attending Provider: Wesly Marinelli Primary Care Provider: Arelis Michele V ED Provider: Lisseth Xiao [facility] General Date/Time Provider Initiated Documentation: 06/27/24 18:41. HPI Narrative: This 73-year-old male with history of respiratory failure, recurrent pneumonia, immunocompromise state, Sjogren's presents with report of worsening shortness of breath, cough, fever, sputum production. Patient states that he was seen approximately 2 weeks ago and started on antibiotics for concern for pneumonia at that time. He states his symptoms have worsened which is why he presents. He had subjective fevers at home worsening shortness of breath. He has not known fracture to thoracic vertebrae which makes it difficult for him to fully expand his lungs secondary to discomfort. He has an appointment for follow-up regarding this. Denies known history of COPD or tobacco use. Related Data Home Medications ?Medication ?Instructions ?Recorded ?Confirmed Prilosec 40 mg capsule,delayed 40 mg PO DAILY 11/11/12 06/27/24 release (omeprazole) cholecalciferol (vitamin D3) 25 1,000 unit PO DAILY 11/11/12 06/27/24 mcg (1,000 unit) tablet multivitamin with minerals 1 ea PO DAILY 11/11/12 06/27/24 aspirin 81 mg tablet,delayed 81 mg PO DAILY 02/20/14 06/27/24 release (Aspir-) ascorbic acid (vitamin C) 500 mg 500 mg PO DAILY 09/28/15 06/27/24 tablet (Vitamin C) albuterol sulfate 90 mcg/actuation 1 - 2 puff inhalation Q6H PRN 12/22/15 06/27/24 aerosol inhaler (ProAir HFA) nitroglycerin 0.4 mg sublingual 0.4 mg sublingual ONCE 05/28/18 06/27/24 tablet venlafaxine 150 mg 150 mg PO DAILY 07/01/19 06/27/24 capsule,extended release 24 hr (Effexor XR) bupropion HCl 150 mg tablet,12 hr 150 mg PO QAM 12/08/19 06/27/24 sustained-release (Wellbutrin SR) diclofenac sodium 3 % topical gel 1 applic topical TID PRN 12/08/19 06/27/24 isosorbide mononitrate 30 mg 30 mg PO DAILY 12/08/19 06/27/24 tablet,extended release 24 hr venlafaxine 75 mg capsule,extended 75 mg PO DAILY 12/08/19 06/27/24 release 24 hr metoprolol succinate 25 mg 25 mg PO HS 03/07/21 06/27/24 tablet,extended release 24 hr amlodipine 2.5 mg tablet 2.5 mg PO DAILY #90 tabs 03/24/21 06/27/24 atorvastatin 10 mg tablet 20 mg PO DAILY 04/02/22 06/27/24 trazodone 50 mg tablet 50 mg PO HS 04/02/22 06/27/24 metronidazole 1 % topical gel 1 applic topical BID 07/11/22 06/27/24 acetaminophen 500 mg tablet 500 mg PO Q6H PRN 02/20/23 06/27/24 albuterol sulfate 2.5 mg/3 mL 2.5 mg (3 mL) inhalation QID PRN 07/09/23 06/27/24 (0.083 %) solution for nebulization shortness of breath or wheezing #180 mL vitamins A,C,T-zzaw-mdxmiz 4,296 1 cap PO DAILY 08/06/23 06/27/24 mcg-226 mg-90 mg capsule (PreserVision AREDS) levothyroxine 100 mcg tablet 100 mcg PO DAILY 11/07/23 06/27/24 albuterol sulfate 90 mcg/actuation 2 puff inhalation QID PRN 04/02/24 06/27/24 aerosol inhaler shortness of breath or wheezing #8.5 grams amoxicillin 875 mg-potassium 1 tab PO BID #10 tabs 06/16/24 06/27/24 clavulanate 125 mg tablet doxycycline hyclate 100 mg capsule 100 mg PO BID #10 caps 06/16/24 06/27/24 prednisone 20 mg tablet 40 mg (2 x 20 mg) PO DAILY #10 tabs 06/19/24 06/27/24 Previous Rx's ?Medication ?Instructions ?Recorded amlodipine 2.5 mg tablet 2.5 mg PO DAILY #90 tabs 03/24/21 albuterol sulfate 2.5 mg/3 mL 2.5 mg (3 mL) inhalation QID PRN 07/09/23 (0.083 %) solution for nebulization shortness of breath or wheezing #180 mL albuterol sulfate 90 mcg/actuation 2 puff inhalation QID PRN 04/02/24 aerosol inhaler shortness of breath or wheezing #8.5 grams amoxicillin 875 mg-potassium 1 tab PO BID #10 tabs 06/16/24 clavulanate 125 mg tablet doxycycline hyclate 100 mg capsule 100 mg PO BID #10 caps 06/16/24 prednisone 20 mg tablet 40 mg (2 x 20 mg) PO DAILY #10 tabs 06/19/24 Allergies Allergy/AdvReac Type Severity Reaction Status Date / Time [facility] Adv[facility] Severe Nausea Verified 06/27/24 18:51 lisinopril AdvReac Mild cough Verified 06/27/24 18:51 calcium AdvReac kidney Verified 06/27/24 18:51 stones General Stated Complaint: RespSymp SHANEKA: 3 Exam Narrative Exam Narrative: Ill-appearing 73-year-old male, diaphoretic, pupils equal round reactive to light and accommodation, rhonchi, coarse lung sounds, mild increased work of breathing, no abdominal tenderness, alert and oriented x 4, no peripheral edema, distal pulses intact Course Vital Signs Vital signs: Vital Signs Temperature 36.8 C 06/27/24 18:40 Pulse 128 H 06/27/24 18:40 Respiratory Rate 15 06/27/24 18:40 Blood Pressure 174/81 H 06/27/24 18:40 Pulse Oximetry 86 L 06/27/24 18:40 Temperature 36.8 C 06/27/24 18:49 Pulse 128 H 06/27/24 18:49 Respiratory Rate 15 06/27/24 18:49 Respiratory Effort Short of Breath 06/27/24 19:11 Respiratory Depth Normal 06/27/24 19:11 Blood Pressure 174/81 H 06/27/24 18:49 Blood Pressure Position Sitting 06/27/24 18:49 Pulse Oximetry 86 L 06/27/24 18:49 Oxygen Delivery Method Room Air 06/27/24 18:49 Oxygen Flow Rate 0 06/27/24 18:49 Lab/Test Results Lab/Test Results: 06/27/24 19:35 Sputum - Expectorated Sputum Culture - Pending 06/27/24 19:35 Sputum - Expectorated Gram Stain - Pending 06/27/24 19:07 Blood Blood Culture - Pending 06/27/24 19:01 Blood Blood Culture - Pending Laboratory Tests Range/Units 06/27/24 06/27/24 19:01 19:02 WBC (4.4-10.8) 10^3/uL 22.28 H RBC (4.36-5.78) 10^6/uL 4.91 Hgb (13.5-17.5) g/dL 14.4 Hct (40.0-50.0) % 44.8 MCV (80-95) fL 91 MCH (27.0-33.0) pg 29.3 MCHC (32.0-36.0) % 32.1 RDW (11.8-14.1) % 13.9 Plt Count (130-400) 10^3/uL 269 MPV (8.0-11.0) fL 9.5 Immature Gran % % 0.6 Neutrophils % % 83.4 Lymphocytes % % 8.5 Monocytes % % 5.8 Eosinophils % % 1.5 Basophils % % 0.2 Nucleated RBC % (0.0-0.3) % 0.0 Absolute Neutrophils (1.2-6.7) 10^3/uL 18.58 H Absolute Lymphocytes (1.2-3.4) 10^3/uL 1.89 Absolute Monocytes (0.1-0.8) 10^3/uL 1.29 H Absolute Eosinophils (0.0-0.7) 10^3/uL 0.33 Absolute Basophils (0.0-0.2) 10^3/uL 0.04 VBG pH (7.31-7.41) 7.36 VBG pCO2 (41-51) mmHg 58 H VBG pO2 mmHg 25 VBG HCO3 (23-28) mmol/L 33 H VBG Total CO2 (24-29) mmol/L 30 H VBG O2 Saturation % 45 VBG Base Excess (-2-3) mmol/L 8 H VBG Lactate (0.6-1.4) mmol/L 1.2 Magnesium Cancelled Troponin I Cancelled Medical Decision Making 73-year-old male presenting with fever, tachycardia, upper respiratory and lower respiratory symptoms recently completed course of antibiotics and RA patient, immunosuppressed on Remicade infusions. Chest x-ray does not show significant acute abnormality, CTA of chest was ordered to exclude PE and to evaluate further, multifocal pneumonia noted despite recent completion of Augmentin and azithromycin. Patient will be initiated on cefepime, doxycycline, and vancomycin empirically. Patient meets sepsis criteria, received IV antibiotics, IV fluids, no septic shock criteria, fluids will be p.o. predominantly as patient's blood pressure is stable and he is able to tolerate p.o. secondary to IV fluid shortage. Patient is agreeable to admission at this time. He is responding nicely to 2 DuoNebs and reports that his breathing has improved. He is oxygen dependent at baseline, this is new in the past 6 months, he is on 2 to 3 L now and does not require additional oxygen. Leukocytosis 20,000, lactate and procalcitonin reassuring. Remainder of labs do not show significant acute abnormality, elevated D-dimer but this was assessed with CTA chest. Virtual radiology interpretation reviewed by me. Case discussed with admitting hospitalist, Dr. Ambrocio Quality:SDOH Health Related Social Needs: Health related social needs food insecurity(Z59.41) Health related social needs details MOW and Options Counseling referral to [facility] All Active Problems (Updated 06/27/24 @ 22:51 by DONAVAN Steven) Respiratory failure (Acute) Pneumonia (Acute) Community acquired pneumonia (Acute) Compression fx, thoracic spine (Acute) Hypoxic respiratory failure (Acute) Discharge planning issues (Acute) Acute hypoxic respiratory failure (Acute) Wheezing on auscultation (Acute) Recurrent infections (Acute) Neuromuscular respiratory weakness (Acute) Diaphragm paralysis (Acute) Macular degeneration (Acute) Sacroiliac joint pain (Acute) Hip pain (Acute) Knee pain (Acute) Prediabetes (Acute) Dental infection (Acute) Skin lesion (Acute) COVID-19 virus infection (Acute) Nasal mucosa dry (Acute) Chronic cough (Acute) Basal cell carcinoma (Acute) Actinic keratosis (Acute) Ureterolithiasis (Acute) Coronary artery disease (Chronic) Chest pain (Acute) Wheezing (Acute) Nocturnal cough (Acute) Cardiomyopathy (Acute) SOB (shortness of breath) (Acute) Melena (Acute) Dysphagia (Acute) Strain of calf muscle (Acute 06/30/19) Leg hematoma (Acute 06/30/19) Tubular adenoma of colon (Chronic) GERD (gastroesophageal reflux disease) (Chronic) Xerostomia (Acute 08/17/13) Winged scapula of left side (Acute 04/09/16) Tendinitis of left rotator cuff (Acute 04/09/16) Rhinitis (Acute 08/31/13) Personal history of antineoplastic chemotherapy (Acute 10/14/17) 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) Epistaxis (Acute 10/14/17) Acute sinusitis (Acute 08/17/13) Medical History Pneumonia CAD (coronary artery disease) of artery bypass graft BPH (benign prostatic hyperplasia) Rheumatoid arthritis (10/14/17) Sjogren syndrome, unspecified Actinic keratoses Tubular adenoma Other osteoporosis with current pathological fracture, vertebra(e), subsequent encounter for fracture with routine healing Hypertension Rosacea GERD (gastroesophageal reflux disease) Peripheral neuropathy Sicca syndrome Overweight History of partial colectomy Hypothyroidism Hyperlipidemia Dyspnea Depression Pulmonary hypertension Anxiety Pharyngeal disorder Polyarthralgia Steroid-induced osteoporosis Elevated hemidiaphragm Epistaxis Hx of ventral hernia repair Insomnia Rheumatoid arthritis Complicated grief Surgical History Stented coronary artery (~03/20/19) Hernia Repair, Incisional Colonoscopy - IV Sedation (~11/15/09) [facility]/30/[facility] repeat 3 yrs per Violeta note Colectomy Social History Smoking/Tobacco Use Status: Never Smoking risk assessment performed?: Yes Alcohol Intake: never Drug use: Never Substance use type: does not use Housing: apartment What type of physical activity do you participate in: none Do you feel safe at home: Yes Do you feel safe in your relationship?: Yes
[2024-06-27] MEDS: Normal Saline - Diluent 50 ML VIAL IJ (19:44)
[2024-06-27 19:50] LABS: ALT 18 U/L (16-63); AST 13 U/L (15-37); Albumin 2.9 g/dL (3.4-5.0); Alkaline Phosphatase 99 U/L (46-116); Anion Gap 6.6 mmol/L (3-11); BUN 16 mg/dL (7-18); Bilirubin, Total 0.59 mg/dL (0.2-1.0); CO2 32.4 mmol/L (21.0-32.0); CREATININE 1.1 mg/dL (0.70-1.30); Calcium 9.3 mg/dL (8.5-10.1); Chloride 101 mmol/L (98-107); Estimated GFR 70.01 (mL/min/1.73m2); Glucose 113 mg/dL (74-106); Magnesium 1.8 mg/dL (1.8-2.4); NT-proBNP 63 pg/mL (<300); Potassium 3.8 mmol/L (3.5-5.1); Sodium 140 mmol/L (136-145); Total Protein 6.4 g/dL (6.4-8.2); Troponin I 7 ng/L (<or=76)
[2024-06-27 19:51] LABS: D-Dimer 872 ng/mlFEU (<500)
[2024-06-27 19:57] LABS: COVID-19 PCR Negative (Negative); Influenza A PCR Negative (Negative); Influenza B PCR Negative (Negative); RSV PCR Negative (Negative)
[2024-06-27 20:06] LABS: Source Nasopharynx
[2024-06-27 20:19] LABS: Bilirubin Negative (Negative); Blood Small (Negative); Clarity Clear (Clear); Glucose Negative (Negative); Ketones Negative (Negative); Leukocyte Esterase Negative (Negative); Nitrite Negative (Negative); Specific Gravity 1.015 (1.005-1.025); Urobilinogen 0.2 mg/dL (Up to 0.2)
[2024-06-27 20:34] LABS: Procalcitonin 0.1 ng/mL
--- NOTE | 2024-06-27 20:34 | DI.VRAD_ITS ---
PROCEDURE INFORMATION: Exam: XR Chest Exam date and time: 06/27/2024 7:13 PM Age: 73 years old Clinical indication: Fever and shortness of breath TECHNIQUE: Imaging protocol: Radiologic exam of the chest. Views: 1 view. COMPARISON: CT CHEST WO 06/16/2024 1:00 PM FINDINGS: Lungs: Interstitial prominence and patchy airspace disease and/or edema throughout both lungs, worse at the lung bases. Pleural spaces: Unremarkable. No pleural effusion. No pneumothorax. Heart/Mediastinum: Mild cardiomegaly. Diaphragm: Elevation right hemidiaphragm. Bones/joints: Unremarkable. IMPRESSION: Interstitial prominence and patchy airspace disease and/or edema throughout both lungs, worse at the lung bases. Dictated and Authenticated by: Wesly Barriga MD. Ordering:DORIE Montanez MD
[2024-06-27 20:35] LABS: Bacteria Rare HPF (Negative); C & S Indicated? No; Casts Negative LPF (Negative); Crystals Negative HPF (Negative); Epithelial Cells Negative HPF (Negative); Mucus Negative (Negative); WBC Negative HPF (0-5)
[2024-06-27] MEDS: DOXYCYCLINE 100 MG in Normal Saline 100 ML IVPB (20:35)
--- NOTE | 2024-06-27 20:44 | DI.VRAD_ITS ---
PROCEDURE INFORMATION: Exam: CTA Chest With Contrast Exam date and time: 06/27/2024 7:42 PM Age: 73 years old Clinical indication: Other: Fever, hypoxia, tachypnea TECHNIQUE: Imaging protocol: Computed tomographic angiography of the chest with contrast. Exam focused on the arteries. 3D rendering (Not supervised by radiologist): MIP and/or 3D reconstructed images were created by the technologist. Contrast material: 350; Contrast volume: 85 ml; Contrast route: INTRAVENOUS (IV); COMPARISON: CT CHEST WO 06/16/2024 1:00 PM FINDINGS: Pulmonary arteries: Normal. No pulmonary emboli. Aorta: Aorta demonstrates mild atherosclerotic calcification. No aortic aneurysm or dissection. Lungs: Moderate airspace disease and/or atelectasis right middle and both lower lobes. Interstitial prominence with patchy peribronchiolar airspace disease throughout the remainder of the lungs bilaterally. Pleural spaces: Unremarkable. No pneumothorax. No pleural effusion. Heart: Unremarkable. No cardiomegaly. No pericardial effusion. Coronary arteries: Coronary artery calcifications. Lymph nodes: Prominent mediastinal nodes noted. Diaphragm: Elevation right hemidiaphragm. Small hiatal hernia. Bones/joints: Subacute compression fracture T7, with slight interval increase loss of height. Soft tissues: Unremarkable. IMPRESSION: 1. No pulmonary embolism identified. 2. Moderate airspace disease and/or atelectasis right middle and both lower lobes. Interstitial prominence with patchy peribronchiolar airspace disease throughout the remainder of the lungs bilaterally. 3. Subacute compression fracture T7, with slight interval increase loss of height. Dictated and Authenticated by: Wesly Barriga MD. Ordering:DORIE Montanez MD
[2024-06-27 21:08] LABS: Bacteria Rare HPF (Negative); C & S Indicated? No; Casts Negative LPF (Negative); Crystals Negative HPF (Negative); Epithelial Cells Negative HPF (Negative); Mucus Negative (Negative); WBC Negative HPF (0-5)
[2024-06-27 21:15] LABS: Troponin I 9 ng/L (<or=76)
--- NOTE | 2024-06-27 21:16 | HPE_ITS ---
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 He has become oxygen dependent with increased oxygen needs during this presentation and appears to now be steroid-dependent having recurrent respiratory symptoms when weaned off oral prednisone. He does have a fever with significant elevation of his WBC and progressive infiltrates on his imaging. He does not have a PE. He does have a chronically elevated right hemidiaphragm with COPD treated for the last 10 years. He has failed outpatient medical therapy and with present symptoms will be treated as complicated pneumonia with sputum evaluation for Gram stain culture and fungal evaluation being started on expanded antibiotic therapy with cefepime, vancomycin and doxycycline. He just finished Augmentin with doxycycline. He also just weaned off prednisone. He will be initiated on IV Solu-Medrol and wean slowly. Pulmonology could be engaged during this hospitalization if available and may want to consider bronchoscopy for further evaluation. He is a full code. Qualifiers: Chronicity: acute on chronic Qualified Code(s): J96.21 - Acute and chronic respiratory failure with hypoxia (2) Pneumonia: Assessment and plan: Failed outpatient treatment being readmitted for broad-spectrum IV antibiotic therapy. Qualifiers: Pneumonia type: due to unspecified organism Laterality: bilateral Lung location: lower lobe of lung Qualified Code(s): J18.9 - Pneumonia, unspecified organism (3) Rheumatoid arthritis: Assessment and plan: On Remicade which immunocompromises the patient. Qualifiers: Rheumatoid arthritis location: other site Rheumatoid factor presence: u nspecified presence Qualified Code(s): M06.9 - Rheumatoid arthritis, unspecified (4) GERD (gastroesophageal reflux disease): Assessment and plan: Continue outpatient PPI. Qualifiers: Esophagitis presence: without esophagitis Qualified Code(s): K21.9 - Gastro-esophageal reflux disease without esophagitis (5) Hypertension: Assessment and plan: Continue outpatient medical therapy and adjust as needed. Qualifiers: Hypertension type: primary hypertension Qualified Code(s): I10 - Essential (primary) hypertension (6) Hypothyroidism: Assessment and plan: Check TSH and continue outpatient dosing of supplement. Qualifiers: Hypothyroidism type: acquired Qualified Code(s): E03.9 - Hypothyroidism, unspecified (7) Hyperlipidemia: Assessment and plan: Continue outpatient statin. Qualifiers: Hyperlipidemia type: mixed hyperlipidemia Qualified Code(s): E78.2 - Mixed hyperlipidemia (8) Cardiomyopathy: Status: Chronic Assessment and plan: No evidence of CHF but this could be at play with recurrent exacerbation respiratory status with the last echocardiogram possibly needing update since last performed in 2021. Patient not having any chest pain or evidence of acute cardiac decompensation. His BNP is normal which is reassuring. Qualifiers: Cardiomyopathy type: ischemic Qualified Code(s): I25.5 - Ischemic cardiomyopathy History of Present Illness History of Present Illness Chief Complaint: Productive cough with progressive dyspnea and fever, hypoxemia Narrative: This is a 73-year-old male patient who has had recurrent pneumonia since August 2023, hospitalized in November 2023 and treated as an outpatient recently finishing outpatient course of antibiotics now presenting with progressive dyspnea, a productive cough of changing color in sputum with increasing hypoxemia with need for outpatient oxygen supplement only since the onset of these pneumonias. He does have a chronically elevated right hemidiaphragm and a history of COPD for the last 10 to 20 years with good kyphosis from compression fractures added to his restrictive pulmonary disease. He is seeing pulmonology patient is also on Remicade for RA and recently steroids chronically with recurring respiratory symptoms as he comes off of his oral steroids. Patient did have chills with fever at home with his presenting symptoms. He is able to speak comfortably at rest in bed without supplement. He has a history of cardiomyopathy but does not have any history of chest pain recently and denies any weight gain or peripheral edema. He is not on chronic steroids. He has been eating and drinking fairly well with no abdominal complaints. He also has a history of depression which stable on medical therapy. Patient is a full code. Review of Systems Narrative: 13 point review of systems otherwise unrevealing or stable. Patient denies hemoptysis has had no exposures for sources of possible fungal infection. 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 PFSH All Active Problems (Updated 06/28/24 @ 01:54 by Wesly Marinelli) Respiratory failure (Acute) Pneumonia (Acute) Community acquired pneumonia (Acute) Compression fx, thoracic spine (Acute) Hypoxic respiratory failure (Acute) Discharge planning issues (Acute) Acute hypoxic respiratory failure (Acute) Wheezing on auscultation (Acute) Recurrent infections (Acute) Neuromuscular respiratory weakness (Acute) Diaphragm paralysis (Acute) Macular degeneration (Acute) Sacroiliac joint pain (Acute) Hip pain (Acute) Knee pain (Acute) Prediabetes (Acute) Dental infection (Acute) Skin lesion (Acute) COVID-19 virus infection (Acute) Nasal mucosa dry (Acute) Chronic cough (Acute) Basal cell carcinoma (Acute) Actinic keratosis (Acute) Ureterolithiasis (Acute) Coronary artery disease (Chronic) Chest pain (Acute) Wheezing (Acute) Nocturnal cough (Acute) Cardiomyopathy (Chronic) SOB (shortness of breath) (Acute) Melena (Acute) Dysphagia (Acute) Strain of calf muscle (Acute 06/30/19) Leg hematoma (Acute 06/30/19) Tubular adenoma of colon (Chronic) GERD (gastroesophageal reflux disease) (Chronic) Xerostomia (Acute 08/17/13) Winged scapula of left side (Acute 04/09/16) Tendinitis of left rotator cuff (Acute 04/09/16) Rhinitis (Acute 08/31/13) Personal history of antineoplastic chemotherapy (Acute 10/14/17) 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) Epistaxis (Acute 10/14/17) Acute sinusitis (Acute 08/17/13) Medical History Pneumonia CAD (coronary artery disease) of artery bypass graft BPH (benign prostatic hyperplasia) Rheumatoid arthritis (10/14/17) Sjogren syndrome, unspecified Actinic keratoses Tubular adenoma Other osteoporosis with current pathological fracture, vertebra(e), subsequent encounter for fracture with routine healing Hypertension Rosacea GERD (gastroesophageal reflux disease) Peripheral neuropathy Sicca syndrome Overweight History of partial colectomy Hypothyroidism Hyperlipidemia Dyspnea Depression Pulmonary hypertension Anxiety Pharyngeal disorder Polyarthralgia Steroid-induced osteoporosis Elevated hemidiaphragm Epistaxis Hx of ventral hernia repair Insomnia Rheumatoid arthritis Complicated grief Surgical History Stented coronary artery (~03/20/19) Hernia Repair, Incisional Colonoscopy - IV Sedation (~11/15/09) 09/30/2019 [facility] sessile repeat 3 yrs per Violeta note Colectomy Social History Smoking/Tobacco Use Status: Never Smoking risk assessment performed?: Yes Alcohol Intake: never Drug use: Never Substance use type: does not use Housing: assisted living facility What type of physical activity do you participate in: none Do you feel safe at home: Yes Do you feel safe in your relationship?: Yes Meds Allergies and Home Medications Allergies Allergy/AdvReac Type Severity Reaction Status Date / Time abatacept (From Orencia) AdvReac Severe Nausea Verified 06/27/24 18:51 lisinopril AdvReac Mild cough Verified 06/27/24 18:51 calcium AdvReac kidney Verified 06/27/24 18:51 stones Home Medications ?Medication ?Instructions ?Recorded ?Confirmed ?Type Prilosec 40 mg capsule,delayed 40 mg PO DAILY 11/11/12 06/27/24 History release (omeprazole) cholecalciferol (vitamin D3) 25 1,000 unit PO DAILY 11/11/12 06/27/24 History mcg (1,000 unit) tablet multivitamin with minerals 1 ea PO DAILY 11/11/12 06/27/24 History aspirin 81 mg tablet,delayed 81 mg PO DAILY 02/20/14 06/27/24 History release (Aspir-) ascorbic acid (vitamin C) 500 mg 500 mg PO DAILY 09/28/15 06/27/24 History tablet (Vitamin C) albuterol sulfate 90 mcg/actuation 1 - 2 puff inhalation Q6H PRN 12/22/15 06/27/24 History aerosol inhaler (ProAir HFA) nitroglycerin 0.4 mg sublingual 0.4 mg sublingual ONCE 05/28/18 06/27/24 History tablet venlafaxine 150 mg 150 mg PO DAILY 07/01/19 06/27/24 History capsule,extended release 24 hr (Effexor XR) bupropion HCl 150 mg tablet,12 hr 150 mg PO QAM 12/08/19 06/27/24 History sustained-release (Wellbutrin SR) diclofenac sodium 3 % topical gel 1 applic topical TID PRN 12/08/19 06/27/24 History isosorbide mononitrate 30 mg 30 mg PO DAILY 12/08/19 06/27/24 History tablet,extended release 24 hr venlafaxine 75 mg capsule,extended 75 mg PO DAILY 12/08/19 06/27/24 History release 24 hr metoprolol succinate 25 mg 25 mg PO HS 03/07/21 06/27/24 History tablet,extended release 24 hr amlodipine 2.5 mg tablet 2.5 mg PO DAILY #90 tabs 03/24/21 06/27/24 Rx atorvastatin 10 mg tablet 20 mg PO DAILY 04/02/22 06/27/24 History trazodone 50 mg tablet 50 mg PO HS 04/02/22 06/27/24 History metronidazole 1 % topical gel 1 applic topical BID 07/11/22 06/27/24 History acetaminophen 500 mg tablet 500 mg PO Q6H PRN 02/20/23 06/27/24 History albuterol sulfate 2.5 mg/3 mL 2.5 mg (3 mL) inhalation QID PRN 07/09/23 06/27/24 Rx (0.083 %) solution for nebulization shortness of breath or wheezing #180 mL vitamins A,C,K-gafp-tnasyq 4,296 1 cap PO DAILY 08/06/23 06/27/24 History mcg-226 mg-90 mg capsule (PreserVision AREDS) levothyroxine 100 mcg tablet 100 mcg PO DAILY 11/07/23 06/27/24 History albuterol sulfate 90 mcg/actuation 2 puff inhalation QID PRN 04/02/24 06/27/24 Rx aerosol inhaler shortness of breath or wheezing #8.5 grams amoxicillin 875 mg-potassium 1 tab PO BID #10 tabs 06/16/24 06/27/24 Rx clavulanate 125 mg tablet doxycycline hyclate 100 mg capsule 100 mg PO BID #10 caps 06/16/24 06/27/24 Rx prednisone 20 mg tablet 40 mg (2 x 20 mg) PO DAILY #10 tabs 06/19/24 06/27/24 Rx Exam Narrative Exam Narrative: General: Patient appears appropriate age, lying in bed on his right side speaking comfortably in complete sentences. He is not dyspneic at rest. He is alert and oriented x 3. He is in no acute distress at rest. HEENT: Normocephalic, eyes with pupils equal and reactive to light symmetrically, extraocular movement intact and sclera anicteric. Oropharynx with moist mucosa. Poor dentition. Neck: Supple without JVD. Back: Kyphotic especially over lower thoracic spine and upper lumbar spine without CVA tenderness. Lungs: Poor aeration with bronchovesicular breath sounds diffusely, coarse inspiratory crackles more on the left than right with decreased aeration of the right. Diffuse expiratory wheeze with increased expiratory phase. Occasional rhonchi especially with cough. Heart: Distant heart sounds, regular rate and rhythm with no murmurs gallops appreciated. Abdomen: Normal contour, soft and nontender to palpation with no palpable hepatosplenomegaly. No focalizing guarding or tenderness. Bowel sounds positive all quadrants. Details of rectal: Exam deferred. Extremity: Without clubbing, cyanosis or pitting edema. Peripheral pulses grossly intact. Skin: Normal color, warm and dry. Rough texture with actinic changes over sun exposed areas. Neuro: Cranial nerves II through XII grossly intact, no focalizing motor deficits or tremor. Psych: Flattened affect with depressed mood. No abnormal thought processes. Remote and recent memory grossly intact. Results Imaging Imaging Studies: Exam: CTA Chest With Contrast Exam date and time: 06/27/2024 7:42 PM Age: 73 years old Clinical indication: Other: Fever, hypoxia, tachypnea COMPARISON: CT CHEST WO 06/16/2024 1:00 PM FINDINGS: Pulmonary arteries: Normal. No pulmonary emboli. Aorta: Aorta demonstrates mild atherosclerotic calcification. No aortic aneurysm or dissection. Lungs: Moderate airspace disease and/or atelectasis right middle and both lower lobes. Interstitial prominence with patchy peribronchiolar airspace disease throughout the remainder of the lungs bilaterally. Pleural spaces: Unremarkable. No pneumothorax. No pleural effusion. Heart: Unremarkable. No cardiomegaly. No pericardial effusion. Coronary arteries: Coronary artery calcifications. Lymph nodes: Prominent mediastinal nodes noted. Diaphragm: Elevation right hemidiaphragm. Small hiatal hernia. Bones/joints: Subacute compression fracture T7, with slight interval increase loss of height. Soft tissues: Unremarkable. IMPRESSION: 1. No pulmonary embolism identified. 2. Moderate airspace disease and/or atelectasis right middle and both lower lobes. Interstitial prominence with patchy peribronchiolar airspace disease throughout the remainder of the lungs bilaterally. 3. Subacute compression fracture T7, with slight interval increase loss of height. Exam: XR Chest Exam date and time: 06/27/2024 7:13 PM Age: 73 years old Clinical indication: Fever and shortness of breath TECHNIQUE: Imaging protocol: Radiologic exam of the chest. Views: 1 view. COMPARISON: CT CHEST WO 06/16/2024 1:00 PM FINDINGS: Lungs: Interstitial prominence and patchy airspace disease and/or edema throughout both lungs, worse at the lung bases. Pleural spaces: Unremarkable. No pleural effusion. No pneumothorax. Heart/Mediastinum: Mild cardiomegaly. Diaphragm: Elevation right hemidiaphragm. Bones/joints: Unremarkable. IMPRESSION: Interstitial prominence and patchy airspace disease and/or edema throughout both lungs, worse at the lung bases. There also appears to be some infiltrate in the right lung base posterior basal segment right lower lobe.Correlation with clinical findings recommended. Date of Exam: 03/12/22 EXAM: Comprehensive 2D, Doppler, and color-flow Echocardiogram Indications: CMP, CAD Other Information Study Quality: Adequate Conclusion Normal left ventricular wall thickness and chamber size. Estimated ejection fraction is 45%. There is mild global hypokinesis Normal right ventricular size and systolic function Both atria are normal in size The aortic valve is trileaflet and sclerotic with trace regurgitation Mild mitral annular calcification. Trace mitral regurgitation Normal tricuspid valve with trace regurgitation. Estimated right ventricular systolic pressure is 22 mmHg Mildly dilated ascending aorta measuring 3.51 cm Labs 06/27/24 19:01 06/27/24 19:01 Labs: Laboratory Results - last 24 hr 06/27/24 06/27/24 06/27/24 19:01 19:02 20:03 WBC 22.28 H RBC 4.91 Hgb 14.4 Hct 44.8 MCV 91 MCH 29.3 MCHC 32.1 RDW 13.9 Plt Count 269 MPV 9.5 Immature Gran % 0.6 Neutrophils % 83.4 Lymphocytes % 8.5 Monocytes % 5.8 Eosinophils % 1.5 Basophils % 0.2 Nucleated RBC % 0.0 Absolute Neutrophils 18.58 H Absolute Lymphocytes 1.89 Absolute Monocytes 1.29 H Absolute Eosinophils 0.33 Absolute Basophils 0.04 D-Dimer 872 H VBG pH 7.36 VBG pCO2 58 H VBG pO2 25 VBG HCO3 33 H VBG Total CO2 30 H VBG O2 Saturation 45 VBG Base Excess 8 H VBG Lactate 1.2 Sodium 140 Potassium 3.8 Chloride 101 Carbon Dioxide 32.4 H Anion Gap 6.6 BUN 16 Creatinine 1.1 Est GFR (CKD-EPI 2020) 70.01 Glucose 113 H Calcium 9.3 Magnesium 1.8 Cancelled Total Bilirubin 0.59 AST 13 L ALT 18 Alkaline Phosphatase 99 Troponin I 7 Cancelled NT-Pro-B Natriuret Pep 63 Total Protein 6.4 Albumin 2.9 L Procalcitonin 0.1 Urine Color Yellow Urine Clarity Clear Urine pH 6.0 Ur Specific [place] 1.015 Urine Protein Negative Urine Ketones Negative Urine Blood Small H Urine Nitrite Negative Urine Bilirubin Negative Urine Urobilinogen 0.2 Ur Leukocyte Esterase Negative Urine RBC 5-10 H Urine WBC Ur Epithelial Cells Urine Crystals Urine Bacteria Urine Casts Urine Mucus Ur Culture Indicated? Urine Glucose COVID-19 Source Nasopharynx SARS-CoV-2 (PCR) Negative Influenza Type A (PCR) Negative Influenza Type B (PCR) Negative RSV (PCR) Negative 06/27/24 06/27/24 06/27/24 20:03 20:03 20:03 WBC RBC Hgb Hct MCV MCH MCHC RDW Plt Count MPV Immature Gran % Neutrophils % Lymphocytes % Monocytes % Eosinophils % Basophils % Nucleated RBC % Absolute Neutrophils Absolute Lymphocytes Absolute Monocytes Absolute Eosinophils Absolute Basophils D-Dimer VBG pH VBG pCO2 VBG pO2 VBG HCO3 VBG Total CO2 VBG O2 Saturation VBG Base Excess VBG Lactate Sodium Potassium Chloride Carbon Dioxide Anion Gap BUN Creatinine Est GFR (CKD-EPI 2020) Glucose Calcium Magnesium Total Bilirubin AST ALT Alkaline Phosphatase Troponin I NT-Pro-B Natriuret Pep Total Protein Albumin Procalcitonin Urine Color Urine Clarity Urine pH Ur Specific [place] Urine Protein Urine Ketones Urine Blood Urine Nitrite Urine Bilirubin Urine Urobilinogen Ur Leukocyte Esterase Urine RBC 3-5 H Urine WBC Negative Negative Ur Epithelial Cells Negative Negative Urine Crystals Negative Urine Bacteria Urine Casts Urine Mucus Ur Culture Indicated? Urine Glucose COVID-19 Source SARS-CoV-2 (PCR) Influenza Type A (PCR) Influenza Type B (PCR) RSV (PCR) 10/26/24 10/26/24 10/26/24 20:03 20:03 20:03 WBC RBC Hgb Hct MCV MCH MCHC RDW Plt Count MPV Immature Gran % Neutrophils % Lymphocytes % Monocytes % Eosinophils % Basophils % Nucleated RBC % Absolute Neutrophils Absolute Lymphocytes Absolute Monocytes Absolute Eosinophils Absolute Basophils D-Dimer VBG pH VBG pCO2 VBG pO2 VBG HCO3 VBG Total CO2 VBG O2 Saturation VBG Base Excess VBG Lactate Sodium Potassium Chloride Carbon Dioxide Anion Gap BUN Creatinine Est GFR (CKD-EPI 2020) Glucose Calcium Magnesium Total Bilirubin AST ALT Alkaline Phosphatase Troponin I NT-Pro-B Natriuret Pep Total Protein Albumin Procalcitonin Urine Color Urine Clarity Urine pH Ur Specific [place] Urine Protein Urine Ketones Urine Blood Urine Nitrite Urine Bilirubin Urine Urobilinogen Ur Leukocyte Esterase Urine RBC Urine WBC Ur Epithelial Cells Urine Crystals Negative Urine Bacteria Rare Rare Urine Casts Negative Negative Urine Mucus Negative Ur Culture Indicated? Urine Glucose COVID-19 Source SARS-CoV-2 (PCR) Influenza Type A (PCR) Influenza Type B (PCR) RSV (PCR) 06/27/24 06/27/24 20:03 20:03 WBC RBC Hgb Hct MCV MCH MCHC RDW Plt Count MPV Immature Gran % Neutrophils % Lymphocytes % Monocytes % Eosinophils % Basophils % Nucleated RBC % Absolute Neutrophils Absolute Lymphocytes Absolute Monocytes Absolute Eosinophils Absolute Basophils D-Dimer VBG pH VBG pCO2 VBG pO2 VBG HCO3 VBG Total CO2 VBG O2 Saturation VBG Base Excess VBG Lactate Sodium Potassium Chloride Carbon Dioxide Anion Gap BUN Creatinine Est GFR (CKD-EPI 2020) Glucose Calcium Magnesium Total Bilirubin AST ALT Alkaline Phosphatase Troponin I NT-Pro-B Natriuret Pep Total Protein Albumin Procalcitonin Urine Color Urine Clarity Urine pH Ur Specific [place] Urine Protein Urine Ketones Urine Blood Urine Nitrite Urine Bilirubin Urine Urobilinogen Ur Leukocyte Esterase Urine RBC Urine WBC Ur Epithelial Cells Urine Crystals Urine Bacteria Urine Casts Urine Mucus Negative Ur Culture Indicated? No No Urine Glucose Negative COVID-19 Source SARS-CoV-2 (PCR) Influenza Type A (PCR) Influenza Type B (PCR) RSV (PCR) Last Vital Signs Temp 36.8 C 06/27/24 18:49 Pulse 111 H 06/27/24 19:31 Resp 21 06/27/24 20:40 BP 158/86 H 06/27/24 19:31 Pulse Ox 95 06/27/24 20:30 Time Spent Time spent with Patient: >75 minutes Time was spent: preparing to see the patient(eg.review tests), obtaining and/or reviewing separately otained hiistory, ordering medications,tests, procedures, indepentently interpreting results, counseling the patient and care coordination
[2024-06-27] MEDS: Acetaminophen 500 MG TAB PO (21:43)
[2024-06-27] MEDS: VANCOMYCIN 2,000 MG in Normal Saline 500 ML 250 MG IVPB (21:44)
--- NOTE | 2024-06-27 23:46 | RESPIRATORY ---
Pt. stated that he uses 2l/min NC at baseline all the time. DME is [facility].
[2024-06-28] VITALS (8 sets, daily range): BP systolic 155–174; BP diastolic 84–99; PULSE 92–122; RESP 16–24; TEMP 36.3–37; O2SAT 91–95
[2024-06-28] MEDS: traZODone 50 MG TAB PO ×2 (00:10→20:48)
[2024-06-28] MEDS: Enoxaparin 40 MG/0.4 ML SYR SC ×2 (00:10→20:48)
--- NOTE | 2024-06-28 00:22 | W.PC.ACHO ---
Registration Status: Primary Language: Preferred Language: ED Information & Data Chief Complaint RespSymp 06/27/24 19:38 Triage Note PT reports productive 06/27/24 18:40 hacking cough getting worse over the past week. Green and yellow sputum produced. Painful cough. Fever noted today. PT was assessed for this cough by his PCP and was prescribed medications that he stopped taking as he felt they were not helping. PT normally on O2 at home but his portable supplies do not work well. Medical / Surgical History (Last Reviewed 06/27/24 @ 21:19 by Wesly Marinelli) Pneumonia CAD (coronary artery disease) of artery bypass graft BPH (benign prostatic hyperplasia) Rheumatoid arthritis (10/14/17) Sjogren syndrome, unspecified Actinic keratoses Tubular adenoma Other osteoporosis with current pathological fracture, vertebra(e), subsequent encounter for fracture with routine healing Hypertension Rosacea GERD (gastroesophageal reflux disease) Peripheral neuropathy Sicca syndrome Overweight History of partial colectomy Hypothyroidism Hyperlipidemia Dyspnea Depression Pulmonary hypertension Anxiety Pharyngeal disorder Polyarthralgia Steroid-induced osteoporosis Elevated hemidiaphragm Epistaxis Hx of ventral hernia repair Insomnia Rheumatoid arthritis Complicated grief (Last Reviewed 06/27/24 @ 21:19 by Wesly Marinelli) Stented coronary artery (~03/20/19) Hernia Repair, Incisional Colonoscopy - IV Sedation (~11/15/09) Colectomy Most Recent Vital Signs Temperature 36.4 C L 06/27/24 22:53 Pulse 113 H 06/27/24 22:53 Pulse Rhythm Regular 06/27/24 22:53 Pulse 114 H 06/27/24 22:30 Respiratory Rate 24 06/27/24 22:53 Respiratory Effort Short of Breath 06/27/24 22:53 Respiratory Depth Shallow 06/27/24 22:53 Respiratory Pattern Tachypnea 06/27/24 22:53 Blood Pressure 160/97 H 06/27/24 22:53 Blood Pressure Mean 110 06/27/24 19:31 Blood Pressure Position Sitting 06/27/24 18:49 Pulse Oximetry 96 06/27/24 23:43 Oxygen Delivery Method Nasal Cannula 06/27/24 23:43 Oxygen Flow Rate 2 06/27/24 23:43 Allergies abatacept (From Orencia) Adverse Reaction (Severe, Verified 06/27/24 18:51) Nausea lisinopril Adverse Reaction (Mild, Verified 06/27/24 18:51) cough calcium Adverse Reaction (Verified 06/27/24 18:51) kidney stones Active Medications Generic Name Dose Route Start Last Admin Trade Name Kingq PRN Reason Stop Dose Admin Enoxaparin Sodium 40 mg 06/27/24 23:45 06/28/24 00:10 Enoxaparin 40 Mg/0.4 Ml Syr SC 40 mg HS JILLIAN Administration Trazodone HCl 50 mg 06/27/24 23:45 06/28/24 00:10 Trazodone 50 Mg Tab PO 50 mg HS JILLIAN Administration IV IV Catheter Type [Left Peripheral IV Antecubital] IV Catheter Gauge [Left 18 Antecubital] Diet Orders Category Date Time Status Heart Healthy Eating [DIET] Nutrition 06/28/24 Breakfast Active Diagnostics 06/28/24 06/27/24 06/27/24 Range/Units 05:35 22:52 20:32 WBC Pending (4.4-10.8) 10^3/uL RBC Pending (4.36-5.78) 10^6/uL Hgb Pending (13.5-17.5) g/dL Hct Pending (40.0-50.0) % MCV Pending (80-95) fL MCH Pending (27.0-33.0) pg MCHC Pending (32.0-36.0) % RDW Pending (11.8-14.1) % Plt Count Pending (130-400) 10^3/uL MPV Pending (8.0-11.0) fL Immature Gran % % Neutrophils % % Lymphocytes % % Monocytes % % Eosinophils % % Basophils % % Nucleated RBC % (0.0-0.3) % Absolute Neutrophils (1.2-6.7) 10^3/uL Absolute Lymphocytes (1.2-3.4) 10^3/uL Absolute Monocytes (0.1-0.8) 10^3/uL Absolute Eosinophils (0.0-0.7) 10^3/uL Absolute Basophils (0.0-0.2) 10^3/uL D-Dimer (<500) ng/mlFEU VBG pH (7.31-7.41) VBG pCO2 (41-51) mmHg VBG pO2 mmHg VBG HCO3 (23-28) mmol/L VBG Total CO2 (24-29) mmol/L VBG O2 Saturation % VBG Base Excess (-2-3) mmol/L VBG Lactate (0.6-1.4) mmol/L Sodium Pending (136-145) mmol/L Potassium Pending (3.5-5.1) mmol/L Chloride Pending (98-107) mmol/L Carbon Dioxide Pending (21.0-32.0) mmol/L Anion Gap Pending (3-11) mmol/L BUN Pending (7-18) mg/dL Creatinine Pending (0.70-1.30) mg/dL Est GFR (CKD-EPI 2020) Pending (mL/min/1.73m2) Glucose Pending (74-106) mg/dL Calcium Pending (8.5-10.1) mg/dL Magnesium Pending (1.8-2.4) mg/dL Total Bilirubin Pending (0.2-1.0) mg/dL AST Pending (15-37) U/L ALT Pending (16-63) U/L Alkaline Phosphatase Pending (46-116) U/L Troponin I 9 (<or=76) ng/L NT-Pro-B Natriuret Pep (<300) pg/mL Total Protein Pending (6.4-8.2) g/dL Albumin Pending (3.4-5.0) g/dL Procalcitonin ng/mL TSH Pending Urine Color (Yellow) Urine Clarity (Clear) Urine pH (5-8) Ur Specific [place] (1.005-1.025) Urine Protein (Neg-Trace) mg/dL Urine Ketones (Negative) mg/dL Urine Blood (Negative) Urine Nitrite (Negative) Urine Bilirubin (Negative) Urine Urobilinogen (Up to 0.2) mg/dL Ur Leukocyte Esterase (Negative) Urine RBC (0-2) HPF Urine WBC (0-5) HPF Ur Epithelial Cells (Negative) HPF Urine Crystals (Negative) HPF Urine Bacteria (Negative) HPF Urine Casts (Negative) LPF Urine Mucus (Negative) Ur Culture Indicated? Urine Glucose (Negative) mg/dL COVID-19 Source SARS-CoV-2 (PCR) (Negative) Influenza Type A (PCR) (Negative) Influenza Type B (PCR) (Negative) RSV (PCR) (Negative) 06/27/24 06/27/24 06/27/24 Range/Units 20:03 20:03 20:03 WBC (4.4-10.8) 10^3/uL RBC (4.36-5.78) 10^6/uL Hgb (13.5-17.5) g/dL Hct (40.0-50.0) % MCV (80-95) fL MCH (27.0-33.0) pg MCHC (32.0-36.0) % RDW (11.8-14.1) % Plt Count (130-400) 10^3/uL MPV (8.0-11.0) fL Immature Gran % % Neutrophils % % Lymphocytes % % Monocytes % % Eosinophils % % Basophils % % Nucleated RBC % (0.0-0.3) % Absolute Neutrophils (1.2-6.7) 10^3/uL Absolute Lymphocytes (1.2-3.4) 10^3/uL Absolute Monocytes (0.1-0.8) 10^3/uL Absolute Eosinophils (0.0-0.7) 10^3/uL Absolute Basophils (0.0-0.2) 10^3/uL D-Dimer (<500) ng/mlFEU VBG pH (7.31-7.41) VBG pCO2 (41-51) mmHg VBG pO2 mmHg VBG HCO3 (23-28) mmol/L VBG Total CO2 (24-29) mmol/L VBG O2 Saturation % VBG Base Excess (-2-3) mmol/L VBG Lactate (0.6-1.4) mmol/L Sodium (136-145) mmol/L Potassium (3.5-5.1) mmol/L Chloride (98-107) mmol/L Carbon Dioxide (21.0-32.0) mmol/L Anion Gap (3-11) mmol/L BUN (7-18) mg/dL Creatinine (0.70-1.30) mg/dL Est GFR (CKD-EPI 2020) (mL/min/1.73m2) Glucose (74-106) mg/dL Calcium (8.5-10.1) mg/dL Magnesium (1.8-2.4) mg/dL Total Bilirubin (0.2-1.0) mg/dL AST (15-37) U/L ALT (16-63) U/L Alkaline Phosphatase (46-116) U/L Troponin I (<or=76) ng/L NT-Pro-B Natriuret Pep (<300) pg/mL Total Protein (6.4-8.2) g/dL Albumin (3.4-5.0) g/dL Procalcitonin ng/mL TSH Urine Color (Yellow) Urine Clarity (Clear) Urine pH (5-8) Ur Specific [place] (1.005-1.025) Urine Protein (Neg-Trace) mg/dL Urine Ketones (Negative) mg/dL Urine Blood (Negative) Urine Nitrite (Negative) Urine Bilirubin (Negative) Urine Urobilinogen (Up to 0.2) mg/dL Ur Leukocyte Esterase (Negative) Urine RBC (0-2) HPF Urine WBC (0-5) HPF Ur Epithelial Cells (Negative) HPF Urine Crystals (Negative) HPF Urine Bacteria (Negative) HPF Urine Casts Negative (Negative) LPF Urine Mucus Negative Negative (Negative) Ur Culture Indicated? No No Urine Glucose Negative (Negative) mg/dL COVID-19 Source SARS-CoV-2 (PCR) (Negative) Influenza Type A (PCR) (Negative) Influenza Type B (PCR) (Negative) RSV (PCR) (Negative) 06/27/24 06/27/24 06/27/24 Range/Units 20:03 20:03 20:03 WBC (4.4-10.8) 10^3/uL RBC (4.36-5.78) 10^6/uL Hgb (13.5-17.5) g/dL Hct (40.0-50.0) % MCV (80-95) fL MCH (27.0-33.0) pg MCHC (32.0-36.0) % RDW (11.8-14.1) % Plt Count (130-400) 10^3/uL MPV (8.0-11.0) fL Immature Gran % % Neutrophils % % Lymphocytes % % Monocytes % % Eosinophils % % Basophils % % Nucleated RBC % (0.0-0.3) % Absolute Neutrophils (1.2-6.7) 10^3/uL Absolute Lymphocytes (1.2-3.4) 10^3/uL Absolute Monocytes (0.1-0.8) 10^3/uL Absolute Eosinophils (0.0-0.7) 10^3/uL Absolute Basophils (0.0-0.2) 10^3/uL D-Dimer (<500) ng/mlFEU VBG pH (7.31-7.41) VBG pCO2 (41-51) mmHg VBG pO2 mmHg VBG HCO3 (23-28) mmol/L VBG Total CO2 (24-29) mmol/L VBG O2 Saturation % VBG Base Excess (-2-3) mmol/L VBG Lactate (0.6-1.4) mmol/L Sodium (136-145) mmol/L Potassium (3.5-5.1) mmol/L Chloride (98-107) mmol/L Carbon Dioxide (21.0-32.0) mmol/L Anion Gap (3-11) mmol/L BUN (7-18) mg/dL Creatinine (0.70-1.30) mg/dL Est GFR (CKD-EPI 2020) (mL/min/1.73m2) Glucose (74-106) mg/dL Calcium (8.5-10.1) mg/dL Magnesium (1.8-2.4) mg/dL Total Bilirubin (0.2-1.0) mg/dL AST (15-37) U/L ALT (16-63) U/L Alkaline Phosphatase (46-116) U/L Troponin I (<or=76) ng/L NT-Pro-B Natriuret Pep (<300) pg/mL Total Protein (6.4-8.2) g/dL Albumin (3.4-5.0) g/dL Procalcitonin ng/mL TSH Urine Color (Yellow) Urine Clarity (Clear) Urine pH (5-8) Ur Specific [place] (1.005-1.025) Urine Protein (Neg-Trace) mg/dL Urine Ketones (Negative) mg/dL Urine Blood (Negative) Urine Nitrite (Negative) Urine Bilirubin (Negative) Urine Urobilinogen (Up to 0.2) mg/dL Ur Leukocyte Esterase (Negative) Urine RBC (0-2) HPF Urine WBC (0-5) HPF Ur Epithelial Cells Negative (Negative) HPF Urine Crystals Negative Negative (Negative) HPF Urine Bacteria Rare Rare (Negative) HPF Urine Casts Negative (Negative) LPF Urine Mucus (Negative) Ur Culture Indicated? Urine Glucose (Negative) mg/dL COVID-19 Source SARS-CoV-2 (PCR) (Negative) Influenza Type A (PCR) (Negative) Influenza Type B (PCR) (Negative) RSV (PCR) (Negative) 06/27/24 06/27/24 06/27/24 Range/Units 20:03 20:03 20:03 WBC (4.4-10.8) 10^3/uL RBC (4.36-5.78) 10^6/uL Hgb (13.5-17.5) g/dL Hct (40.0-50.0) % MCV (80-95) fL MCH (27.0-33.0) pg MCHC (32.0-36.0) % RDW (11.8-14.1) % Plt Count (130-400) 10^3/uL MPV (8.0-11.0) fL Immature Gran % % Neutrophils % % Lymphocytes % % Monocytes % % Eosinophils % % Basophils % % Nucleated RBC % (0.0-0.3) % Absolute Neutrophils (1.2-6.7) 10^3/uL Absolute Lymphocytes (1.2-3.4) 10^3/uL Absolute Monocytes (0.1-0.8) 10^3/uL Absolute Eosinophils (0.0-0.7) 10^3/uL Absolute Basophils (0.0-0.2) 10^3/uL D-Dimer (<500) ng/mlFEU VBG pH (7.31-7.41) VBG pCO2 (41-51) mmHg VBG pO2 mmHg VBG HCO3 (23-28) mmol/L VBG Total CO2 (24-29) mmol/L VBG O2 Saturation % VBG Base Excess (-2-3) mmol/L VBG Lactate (0.6-1.4) mmol/L Sodium (136-145) mmol/L Potassium (3.5-5.1) mmol/L Chloride (98-107) mmol/L Carbon Dioxide (21.0-32.0) mmol/L Anion Gap (3-11) mmol/L BUN (7-18) mg/dL Creatinine (0.70-1.30) mg/dL Est GFR (CKD-EPI 2020) (mL/min/1.73m2) Glucose (74-106) mg/dL Calcium (8.5-10.1) mg/dL Magnesium (1.8-2.4) mg/dL Total Bilirubin (0.2-1.0) mg/dL AST (15-37) U/L ALT (16-63) U/L Alkaline Phosphatase (46-116) U/L Troponin I (<or=76) ng/L NT-Pro-B Natriuret Pep (<300) pg/mL Total Protein (6.4-8.2) g/dL Albumin (3.4-5.0) g/dL Procalcitonin ng/mL TSH Urine Color Yellow (Yellow) Urine Clarity Clear (Clear) Urine pH 6.0 (5-8) Ur Specific [place] 1.015 (1.005-1.025) Urine Protein Negative (Neg-Trace) mg/dL Urine Ketones Negative (Negative) mg/dL Urine Blood Small H (Negative) Urine Nitrite Negative (Negative) Urine Bilirubin Negative (Negative) Urine Urobilinogen 0.2 (Up to 0.2) mg/dL Ur Leukocyte Esterase Negative (Negative) Urine RBC 3-5 H 5-10 H (0-2) HPF Urine WBC Negative Negative (0-5) HPF Ur Epithelial Cells Negative (Negative) HPF Urine Crystals (Negative) HPF Urine Bacteria (Negative) HPF Urine Casts (Negative) LPF Urine Mucus (Negative) Ur Culture Indicated? Urine Glucose (Negative) mg/dL COVID-19 Source SARS-CoV-2 (PCR) (Negative) Influenza Type A (PCR) (Negative) Influenza Type B (PCR) (Negative) RSV (PCR) (Negative) 06/27/24 06/27/24 Range/Units 19:02 19:01 WBC 22.28 H (4.4-10.8) 10^3/uL RBC 4.91 (4.36-5.78) 10^6/uL Hgb 14.4 (13.5-17.5) g/dL Hct 44.8 (40.0-50.0) % MCV 91 (80-95) fL MCH 29.3 (27.0-33.0) pg MCHC 32.1 (32.0-36.0) % RDW 13.9 (11.8-14.1) % Plt Count 269 (130-400) 10^3/uL MPV 9.5 (8.0-11.0) fL Immature Gran % 0.6 % Neutrophils % 83.4 % Lymphocytes % 8.5 % Monocytes % 5.8 % Eosinophils % 1.5 % Basophils % 0.2 % Nucleated RBC % 0.0 (0.0-0.3) % Absolute Neutrophils 18.58 H (1.2-6.7) 10^3/uL Absolute Lymphocytes 1.89 (1.2-3.4) 10^3/uL Absolute Monocytes 1.29 H (0.1-0.8) 10^3/uL Absolute Eosinophils 0.33 (0.0-0.7) 10^3/uL Absolute Basophils 0.04 (0.0-0.2) 10^3/uL D-Dimer 872 H (<500) ng/mlFEU VBG pH 7.36 (7.31-7.41) VBG pCO2 58 H (41-51) mmHg VBG pO2 25 mmHg VBG HCO3 33 H (23-28) mmol/L VBG Total CO2 30 H (24-29) mmol/L VBG O2 Saturation 45 % VBG Base Excess 8 H (-2-3) mmol/L VBG Lactate 1.2 (0.6-1.4) mmol/L Sodium 140 (136-145) mmol/L Potassium 3.8 (3.5-5.1) mmol/L Chloride 101 (98-107) mmol/L Carbon Dioxide 32.4 H (21.0-32.0) mmol/L Anion Gap 6.6 (3-11) mmol/L BUN 16 (7-18) mg/dL Creatinine 1.1 (0.70-1.30) mg/dL Est GFR (CKD-EPI 2020) 70.01 (mL/min/1.73m2) Glucose 113 H (74-106) mg/dL Calcium 9.3 (8.5-10.1) mg/dL Magnesium Cancelled 1.8 (1.8-2.4) mg/dL Total Bilirubin 0.59 (0.2-1.0) mg/dL AST 13 L (15-37) U/L ALT 18 (16-63) U/L Alkaline Phosphatase 99 (46-116) U/L Troponin I Cancelled 7 (<or=76) ng/L NT-Pro-B Natriuret Pep 63 (<300) pg/mL Total Protein 6.4 (6.4-8.2) g/dL Albumin 2.9 L (3.4-5.0) g/dL Procalcitonin 0.1 ng/mL TSH Urine Color (Yellow) Urine Clarity (Clear) Urine pH (5-8) Ur Specific [place] (1.005-1.025) Urine Protein (Neg-Trace) mg/dL Urine Ketones (Negative) mg/dL Urine Blood (Negative) Urine Nitrite (Negative) Urine Bilirubin (Negative) Urine Urobilinogen (Up to 0.2) mg/dL Ur Leukocyte Esterase (Negative) Urine RBC (0-2) HPF Urine WBC (0-5) HPF Ur Epithelial Cells (Negative) HPF Urine Crystals (Negative) HPF Urine Bacteria (Negative) HPF Urine Casts (Negative) LPF Urine Mucus (Negative) Ur Culture Indicated? Urine Glucose (Negative) mg/dL COVID-19 Source Nasopharynx SARS-CoV-2 (PCR) Negative (Negative) Influenza Type A (PCR) Negative (Negative) Influenza Type B (PCR) Negative (Negative) RSV (PCR) Negative (Negative) 06/27/24 19:35 Sputum Culture - Pending Sputum - Expectorated Gram Stain - Final 06/27/24 19:07 Blood Culture - Pending Blood 06/27/24 19:01 Blood Culture - Pending Blood Intake and Output - 24 Hour Total 06/27/24 18:38 thru 06/27/24 23:56 Intake Total 1210 Output Total 350 Balance 860 Weight 95.6 kg Intake: IV 1210 Output: Urine 350 Other: Urine Color Yellow Urine Appearance Cloudy Urine Odor None Falls Risk Assessment History of Falls Previous History 06/27/24 22:53 Contributing Factors Impairments,Medications 06/27/24 22:53 Ambulatory Aids Independent 06/27/24 22:53 Tubes/Lines With any additional score 06/27/24 22:53 Gait Evaluation W/any additional score 06/27/24 22:53 Cognition No cognitive impairment 06/27/24 22:53 Fall Total Score 61 06/27/24 22:53 Level of Risk High Risk 06/27/24 22:53 Problems (Last Reviewed 06/27/24 @ 21:19 by Wesly Marinelli) Hypoxic respiratory failure (Acute) Cardiomyopathy (Acute) Notes 06/27/24 23:46 Respiratory by Nixon Chairez Pt. stated that he uses 2l/min NC at baseline all the time. DME is [employer]. Initialized on 06/27/24 23:46 - END OF NOTE v v v v v v v v v Sending and/or Receiving Nurses: Please use comment section below to note any information pertinent to the patient hand-off not included above. Information / Comments: Pt arrived to ED c/o large amount of green phlegm he is coughing up. Pt recently worked up for PNA ~2 Weeks ago. PHM COPD, RA, and a T7 fracture. On 2-3L O2 via NC baseline at home. CXR and CT done for elevated ddimer; neg. Rhonchi and coarse crackles auscultated. Pt tachypneic and tachycardic. Qualified for sepsis protocol so was started on cefepime, doxycycline, and vanco. Also received PO Acetaminophen and IVP Solumedrol. Slightly elevated Report received from: Tatiana Muñoz RN
[2024-06-28 04:21] LABS: HCT 45.4 % (40.0-50.0); HGB 14.5 g/dL (13.5-17.5); MCH 28.9 pg (27.0-33.0); MCHC 31.9 % (32.0-36.0); MCV 91 fL (80-95); MPV 9.5 fL (8.0-11.0); Platelet Count 262 10^3/uL (130-400); RBC 5.01 10^6/uL (4.36-5.78); RDW-SD 46.6 fL; WBC 20.35 10^3/uL (4.4-10.8)
[2024-06-28 04:40] LABS: Vancomycin, Random 15.3 ug/mL
[2024-06-28] MEDS: CEFEPIME 2 GM in Normal Saline 100 ML IVPB ×3 (04:41→22:48)
[2024-06-28] MEDS: methylPREDNISolone SUCC 125 MG VIAL 80 MG IVP (04:42)
[2024-06-28 04:53] LABS: ALT 17 U/L (16-63); AST 12 U/L (15-37); Albumin 2.7 g/dL (3.4-5.0); Alkaline Phosphatase 101 U/L (46-116); Anion Gap 6.4 mmol/L (3-11); BUN 14 mg/dL (7-18); Bilirubin, Total 0.51 mg/dL (0.2-1.0); CO2 31.6 mmol/L (21.0-32.0); CREATININE 1.1 mg/dL (0.70-1.30); Chloride 107 mmol/L (98-107); Estimated GFR 70.01 (mL/min/1.73m2); Glucose 221 mg/dL (74-106); Magnesium 2.2 mg/dL (1.8-2.4); Potassium 4.3 mmol/L (3.5-5.1); Sodium 145 mmol/L (136-145); Total Protein 6.8 g/dL (6.4-8.2)
[2024-06-28 05:05] LABS: TSH (W/Ref FT4) 0.06 uIU/mL (0.36-3.74)
[2024-06-28 05:12] LABS: Calcium 9.6 mg/dL (8.5-10.1)
[2024-06-28 05:22] LABS: FREE T4 1.27 ng/dL (0.76-1.46)
[2024-06-28] MEDS: Levothyroxine 100 MCG TAB PO (06:10)
[2024-06-28] MEDS: Omeprazole 20 MG CAPCR 40 MG PO (07:31)
[2024-06-28] MEDS: Venlafaxine 150 MG CAPCR PO (08:18)
[2024-06-28] MEDS: Isosorbide Mononitrate 30 MG TABCR PO (08:18)
[2024-06-28] MEDS: Cholecalciferol (Vitamin D3) 1,000 UNIT TAB 1000 UNITS PO (08:18)
[2024-06-28] MEDS: predniSONE 20 MG TAB 40 MG PO (08:18)
[2024-06-28] MEDS: Multivitamin w/Minerals TAB 1 TAB PO (08:18)
[2024-06-28] MEDS: amLODIPine 2.5 MG TAB PO (08:19)
[2024-06-28] MEDS: Ascorbic Acid 500 MG TAB PO (08:19)
[2024-06-28] MEDS: Aspirin E.C. 81 MG TABEC PO (08:19)
[2024-06-28] MEDS: Normal Saline Flush 10 ML SYR IVP ×3 (08:19→20:49)
[2024-06-28] MEDS: Venlafaxine 75 MG CAPCR PO (08:19)
[2024-06-28] MEDS: buPROPion-CR 150 MG TABCR PO (08:19)
[2024-06-28] MEDS: DOXYCYCLINE 100 MG in Normal Saline 100 ML IVPB ×2 (08:20→20:48)
--- NOTE | 2024-06-28 08:22 | PDOC.CMIN ---
Date of service: 06/28/24 Time of Service: 08:22 Care Management Initial Assmt Initial Assessment Reason for Hospitalization: hypoxic respiratory failure Functional Status/Living Situation Patient Presentation: Dharmesh was sitting up in a chair when CM met with him. He was agreeable to conversation and engaged easily with CM. Dharmesh lives alone in an apartment in [place]. He has one brother, Loenardo, that he is very close to who lives in the same apartment building. They also have a sister Marilu who lived locally. They had 2 older sisters who both with dementia. Dharmesh has never been and does not have any children. He is independent at baseline and does not receive any community services. Dharmesh does use home oxygen at 2L/min that he receives from [facility]. During the course of conversation, Dharmesh did mention that it is becoming increasingly hard to make ends meet. He shared that he had been doing OK until his rent was raised this summer. Now he has less that $60/month left for food. CM asked is he was familiar with the food shelves and he said he was but admitted that he is picky about what he eats so they have not been all that helpful. CM did provide Dharmesh with a brochure with available food resources in [place] and confirmed that he has someone he works with through the [employer]. Clinically Dharmesh stated that he is feeling better. He is back to his baseline oxygen need of 2L/min, and remains afebrile, although he is still tachycardic. Dharmesh explained that he has had pneumonia off and on since last August and is now oxygen dependent as well as steroid dependent. Town of Residence: [place] Resides with: Alone (brother lives in same apartment building) Significant Other/Family: Local Employment Status: Disabled (had to retire in his 48 secondary to his rheumatoid arthritis) Instrumental Activities of Daily Living (ADLs): Independent Medications Medication Management: No Issues/Barriers identified Physical Functioning/Mobility Assistive Device: none yet Advance Directives Advance Directives: Do you have an Advance Directive: N 02/21/23 10:39 AD On File at [facility]: N 02/21/23 10:39 Date Asked 06/27/24 06/27/24 18:42 AD Date Reviewed COLST On File at [facility] No 06/27/24 18:42 COLST Date Scanned Code Status Resuscitation Status Full Code Portal Pt does not currently have a portal and education provided: Yes Insurance Coverage/Financial Issues Insurance: [employer] Financial Issues: limited income; some food insecurity Care Team Visit Care Team Role Provider Type Arelis Michele MD Primary Care Provider [facility] STAFF PHYSICIAN DONAVAN Steven Emergency Provider [facility]IC[facility] MICA SIZER Wesly Marinelli Admit Provider NON-[facility] STAFF PHYSICIAN Attending Provider Discharge Potential Discharge Needs: PCP F/U Appt Anticipated Barriers to Discharge: None Identified Patient/Family Education Needs: Review discharge instructions, discuss Ask Me Three Transportation: Private vehicle Plan: Anticipate Dharmesh will be discharged home with no new services. He will follow up with his community providers and plan of care and transport with his brother. His brother will transport one of Dharmesh's home tanks for the ride home. CM will follow and continue to support discharge needs. PFSH All Active Problems (Updated 06/28/24 @ 08:40 by Patrick River MD) COPD with acute exacerbation (Acute) Sepsis (Acute) Acute on chronic respiratory failure with hypoxia (Acute) Respiratory failure (Acute) Pneumonia (Acute) Community acquired pneumonia (Acute) Compression fx, thoracic spine (Acute) Hypoxic respiratory failure (Acute) Discharge planning issues (Acute) Acute hypoxic respiratory failure (Acute) Wheezing on auscultation (Acute) Recurrent infections (Acute) Neuromuscular respiratory weakness (Acute) Diaphragm paralysis (Acute) Macular degeneration (Acute) Sacroiliac joint pain (Acute) Hip pain (Acute) Knee pain (Acute) Prediabetes (Acute) Dental infection (Acute) Skin lesion (Acute) COVID-19 virus infection (Acute) Nasal mucosa dry (Acute) Chronic cough (Acute) Basal cell carcinoma (Acute) Actinic keratosis (Acute) Ureterolithiasis (Acute) Coronary artery disease (Chronic) Chest pain (Acute) Wheezing (Acute) Nocturnal cough (Acute) Cardiomyopathy (Chronic) SOB (shortness of breath) (Acute) Melena (Acute) Dysphagia (Acute) Strain of calf muscle (Acute 06/30/19) Leg hematoma (Acute 06/30/19) Tubular adenoma of colon (Chronic) GERD (gastroesophageal reflux disease) (Chronic) Xerostomia (Acute 08/17/13) Winged scapula of left side (Acute 04/09/16) Tendinitis of left rotator cuff (Acute 04/09/16) Rhinitis (Acute 08/31/13) Personal history of antineoplastic chemotherapy (Acute 10/14/17) 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) Epistaxis (Acute 10/14/17) Acute sinusitis (Acute 08/17/13) Medical History Pneumonia CAD (coronary artery disease) of artery bypass graft BPH (benign prostatic hyperplasia) Rheumatoid arthritis (10/14/17) Sjogren syndrome, unspecified Actinic keratoses Tubular adenoma Other osteoporosis with current pathological fracture, vertebra(e), subsequent encounter for fracture with routine healing Hypertension Rosacea GERD (gastroesophageal reflux disease) Peripheral neuropathy Sicca syndrome Overweight History of partial colectomy Hypothyroidism Hyperlipidemia Dyspnea Depression Pulmonary hypertension Anxiety Pharyngeal disorder Polyarthralgia Steroid-induced osteoporosis Elevated hemidiaphragm Epistaxis Hx of ventral hernia repair Insomnia Rheumatoid arthritis Complicated grief Surgical History Stented coronary artery (~03/20/19) Hernia Repair, Incisional Colonoscopy - IV Sedation (~11/15/09) 09/30/2019 [facility] sessile repeat 3 yrs per Violeta note Colectomy Social History Smoking/Tobacco Use Status: Never Smoking risk assessment performed?: Yes Alcohol Intake: never Drug use: Never Substance use type: does not use Housing: assisted living facility What type of physical activity do you participate in: none Do you feel safe at home: Yes Do you feel safe in your relationship?: Yes SDOH(Care Management) Screening Will the Patient Participate in the Screening?: Yes Do you worry about having a steady place to live?: no Problems where you live: no known problems In the past 12 months, have you had to go without electric, gas, oil or water in your home?: no Have you or anyone in your house had to go without enough food to eat?: yes Has lack of transportation kept you from medical appointments or from doing things needed for daily living?: no Has anyone in your support network made you feel unsafe for any reason?: no Health Related Social Needs Health related social needs: food insecurity(Z59.41)
--- NOTE | 2024-06-28 08:39 | PGE_ITS ---
Date of Service Date of service: 06/28/24 Time of Service: 08:39 Assessment and Plan Assessment and plan (1) Sepsis: Status: Acute Assessment and plan: - Patient met sepsis criteria with a leukocytosis white count of about 20, tachycardia with heart rate greater than 100 and presumed source of infection being community-acquired pneumonia -Patient had recently completed course of antibiotics for COPD and pneumonia -Was started on Vanco and cefepime in the emergency department, will continue -Follow-up a.m. CBC and blood culture results (2) Pneumonia: Assessment and plan: - Failed outpatient therapy with p.o. antibiotics -On Vanco and cefepime as noted above Qualifiers: Laterality: bilateral Lung location: lower lobe of lung Pneumonia type: due to unspecified organism Qualified Code(s): J18.9 - Pneumonia, unspecified organism (3) COPD with acute exacerbation: Status: Acute Assessment and plan: - Longstanding history of COPD, recently requiring supplemental oxygen at home (see below for details) -Patient reportedly has repeated episodes when he is weaned off of prednisone -Was given IV Solu-Medrol in the emergency department -Will transition to 40 mg p.o. prednisone -Will be on a longer taper at discharge (4) Acute on chronic respiratory failure with hypoxia: Status: Acute Assessment and plan: - Recently started on 2 L nasal cannula chronically at home -Has required up to 3 L nasal cannula here -Continue to wean O2 as tolerated (5) Rheumatoid arthritis: Assessment and plan: -On Remicade which immunocompromises the patient. Qualifiers: Rheumatoid arthritis location: other site Rheumatoid factor presence: unspecified presence Qualified Code(s): M06.9 - Rheumatoid arthritis, unspec ified (6) GERD (gastroesophageal reflux disease): Assessment and plan: -Continue outpatient PPI. Qualifiers: Esophagitis presence: without esophagitis Qualified Code(s): K21.9 - Gastro-esophageal reflux disease without esophagitis (7) Hypertension: Assessment and plan: -Continue outpatient medical therapy and adjust as needed. Qualifiers: Hypertension type: primary hypertension Qualified Code(s): I10 - Essential (primary) hypertension (8) Hypothyroidism: Assessment and plan: -Check TSH and continue outpatient dosing of supplement. Qualifiers: Hypothyroidism type: acquired Qualified Code(s): E03.9 - Hypothyroidism, unspecified (9) Hyperlipidemia: Assessment and plan: -Continue outpatient statin. Qualifiers: Hyperlipidemia type: mixed hyperlipidemia Qualified Code(s): E78.2 - Mixed hyperlipidemia Subjective Subjective Interval history since last seen: Patient states that he feels better as compared to admission. She feels that his better breathing is much improved and has no other complaints or concerns at this time. Exam Narrative Exam Narrative: Well-appearing older gentleman laying in bed in no acute distress, 2 L nasal cannula in place, awake, alert, oriented x 4, heart regular rate rhythm, lungs with diffuse end expiratory wheezing throughout, abdomen soft, nontender, nondistended Objective Last Vital Signs Temp 97.5 F L 06/28/24 07:17 Pulse 92 H 06/28/24 07:17 Resp 16 06/28/24 07:17 BP 162/94 H 06/28/24 07:17 Pulse Ox 95 06/28/24 07:17 Laboratory Results - last 24 hr 06/27/24 06/27/24 06/27/24 19:01 19:02 20:03 WBC 22.28 H RBC 4.91 Hgb 14.4 Hct 44.8 MCV 91 MCH 29.3 MCHC 32.1 RDW 13.9 Plt Count 269 MPV 9.5 Immature Gran % 0.6 Neutrophils % 83.4 Lymphocytes % 8.5 Monocytes % 5.8 Eosinophils % 1.5 Basophils % 0.2 Nucleated RBC % 0.0 Absolute Neutrophils 18.58 H Absolute Lymphocytes 1.89 Absolute Monocytes 1.29 H Absolute Eosinophils 0.33 Absolute Basophils 0.04 D-Dimer 872 H VBG pH 7.36 VBG pCO2 58 H VBG pO2 25 VBG HCO3 33 H VBG Total CO2 30 H VBG O2 Saturation 45 VBG Base Excess 8 H VBG Lactate 1.2 Sodium 140 Potassium 3.8 Chloride 101 Carbon Dioxide 32.4 H Anion Gap 6.6 BUN 16 Creatinine 1.1 Est GFR (CKD-EPI 2020) 70.01 Glucose 113 H Calcium 9.3 Magnesium 1.8 Cancelled Total Bilirubin 0.59 AST 13 L ALT 18 Alkaline Phosphatase 99 Troponin I 7 Cancelled NT-Pro-B Natriuret Pep 63 Total Protein 6.4 Albumin 2.9 L Procalcitonin 0.1 TSH Free T4 Urine Color Yellow Urine Clarity Clear Urine pH 6.0 Ur Specific [place] 1.015 Urine Protein Negative Urine Ketones Negative Urine Blood Small H Urine Nitrite Negative Urine Bilirubin Negative Urine Urobilinogen 0.2 Ur Leukocyte Esterase Negative Urine RBC 5-10 H Urine WBC Ur Epithelial Cells Urine Crystals Urine Bacteria Urine Casts Urine Mucus Ur Culture Indicated? Urine Glucose Random Vancomycin COVID-19 Source Nasopharynx SARS-CoV-2 (PCR) Negative Influenza Type A (PCR) Negative Influenza Type B (PCR) Negative RSV (PCR) Negative 06/27/24 06/27/24 06/27/24 20:03 20:03 20:03 WBC RBC Hgb Hct MCV MCH MCHC RDW Plt Count MPV Immature Gran % Neutrophils % Lymphocytes % Monocytes % Eosinophils % Basophils % Nucleated RBC % Absolute Neutrophils Absolute Lymphocytes Absolute Monocytes Absolute Eosinophils Absolute Basophils D-Dimer VBG pH VBG pCO2 VBG pO2 VBG HCO3 VBG Total CO2 VBG O2 Saturation VBG Base Excess VBG Lactate Sodium Potassium Chloride Carbon Dioxide Anion Gap BUN Creatinine Est GFR (CKD-EPI 2020) Glucose Calcium Magnesium Total Bilirubin AST ALT Alkaline Phosphatase Troponin I NT-Pro-B Natriuret Pep Total Protein Albumin Procalcitonin TSH Free T4 Urine Color Urine Clarity Urine pH Ur Specific [place] Urine Protein Urine Ketones Urine Blood Urine Nitrite Urine Bilirubin Urine Urobilinogen Ur Leukocyte Esterase Urine RBC 3-5 H Urine WBC Negative Negative Ur Epithelial Cells Negative Negative Urine Crystals Negative Urine Bacteria Urine Casts Urine Mucus Ur Culture Indicated? Urine Glucose Random Vancomycin COVID-19 Source SARS-CoV-2 (PCR) Influenza Type A (PCR) Influenza Type B (PCR) RSV (PCR) 06/27/24 06/27/24 06/27/24 20:03 20:03 20:03 WBC RBC Hgb Hct MCV MCH MCHC RDW Plt Count MPV Immature Gran % Neutrophils % Lymphocytes % Monocytes % Eosinophils % Basophils % Nucleated RBC % Absolute Neutrophils Absolute Lymphocytes Absolute Monocytes Absolute Eosinophils Absolute Basophils D-Dimer VBG pH VBG pCO2 VBG pO2 VBG HCO3 VBG Total CO2 VBG O2 Saturation VBG Base Excess VBG Lactate Sodium Potassium Chloride Carbon Dioxide Anion Gap BUN Creatinine Est GFR (CKD-EPI 2020) Glucose Calcium Magnesium Total Bilirubin AST ALT Alkaline Phosphatase Troponin I NT-Pro-B Natriuret Pep Total Protein Albumin Procalcitonin TSH Free T4 Urine Color Urine Clarity Urine pH Ur Specific [place] Urine Protein Urine Ketones Urine Blood Urine Nitrite Urine Bilirubin Urine Urobilinogen Ur Leukocyte Esterase Urine RBC Urine WBC Ur Epithelial Cells Urine Crystals Negative Urine Bacteria Rare Rare Urine Casts Negative Negative Urine Mucus Negative Ur Culture Indicated? Urine Glucose Random Vancomycin COVID-19 Source SARS-CoV-2 (PCR) Influenza Type A (PCR) Influenza Type B (PCR) RSV (PCR) 06/27/24 06/27/24 06/27/24 20:03 20:03 20:32 WBC RBC Hgb Hct MCV MCH MCHC RDW Plt Count MPV Immature Gran % Neutrophils % Lymphocytes % Monocytes % Eosinophils % Basophils % Nucleated RBC % Absolute Neutrophils Absolute Lymphocytes Absolute Monocytes Absolute Eosinophils Absolute Basophils D-Dimer VBG pH VBG pCO2 VBG pO2 VBG HCO3 VBG Total CO2 VBG O2 Saturation VBG Base Excess VBG Lactate Sodium Potassium Chloride Carbon Dioxide Anion Gap BUN Creatinine Est GFR (CKD-EPI 2020) Glucose Calcium Magnesium Total Bilirubin AST ALT Alkaline Phosphatase Troponin I 9 NT-Pro-B Natriuret Pep Total Protein Albumin Procalcitonin TSH Free T4 Urine Color Urine Clarity Urine pH Ur Specific [place] Urine Protein Urine Ketones Urine Blood Urine Nitrite Urine Bilirubin Urine Urobilinogen Ur Leukocyte Esterase Urine RBC Urine WBC Ur Epithelial Cells Urine Crystals Urine Bacteria Urine Casts Urine Mucus Negative Ur Culture Indicated? No No Urine Glucose Negative Random Vancomycin COVID-19 Source SARS-CoV-2 (PCR) Influenza Type A (PCR) Influenza Type B (PCR) RSV (PCR) 06/28/24 04:10 WBC 20.35 H RBC 5.01 Hgb 14.5 Hct 45.4 MCV 91 MCH 28.9 MCHC 31.9 L RDW 14.0 Plt Count 262 MPV 9.5 Immature Gran % Neutrophils % Lymphocytes % Monocytes % Eosinophils % Basophils % Nucleated RBC % Absolute Neutrophils Absolute Lymphocytes Absolute Monocytes Absolute Eosinophils Absolute Basophils D-Dimer VBG pH VBG pCO2 VBG pO2 VBG HCO3 VBG Total CO2 VBG O2 Saturation VBG Base Excess VBG Lactate Sodium 145 Potassium 4.3 Chloride 107 Carbon Dioxide 31.6 Anion Gap 6.4 BUN 14 Creatinine 1.1 Est GFR (CKD-EPI 2020) 70.01 Glucose 221 H Calcium 9.6 Magnesium 2.2 Total Bilirubin 0.51 AST 12 L ALT 17 Alkaline Phosphatase 101 Troponin I NT-Pro-B Natriuret Pep Total Protein 6.8 Albumin 2.7 L Procalcitonin TSH 0.06 L Free T4 1.27 Urine Color Urine Clarity Urine pH Ur Specific [place] Urine Protein Urine Ketones Urine Blood Urine Nitrite Urine Bilirubin Urine Urobilinogen Ur Leukocyte Esterase Urine RBC Urine WBC Ur Epithelial Cells Urine Crystals Urine Bacteria Urine Casts Urine Mucus Ur Culture Indicated? Urine Glucose Random Vancomycin 15.3 COVID-19 Source SARS-CoV-2 (PCR) Influenza Type A (PCR) Influenza Type B (PCR) RSV (PCR) Time Spent with Patient Time Spent with Patient: >50 minutes Time was spent: preparing to see the patient(eg.review tests), obtaining and/or reviewing separately otained hiistory, ordering medications,tests, procedures, referring, communicating with other health care management specialist, indepentently interpreting results, counseling the patient and care coordination
--- NOTE | 2024-06-28 10:46 | PHA.REVIEW2 ---
Pharmacy Admission Review Admission Clinical Review Admission Pharmacy Review: COPD with acute exacerbation (Acute) Sepsis (Acute) Acute on chronic respiratory failure with hypoxia (Acute) Hypoxic respiratory failure (Acute) abatacept (From Orencia) Adverse Reaction (Severe, Verified 06/27/24 18:51) Nausea lisinopril Adverse Reaction (Mild, Verified 06/27/24 18:51) cough calcium Adverse Reaction (Verified 06/27/24 18:51) kidney stones Resuscitation Status Full Code Height 5 ft 11 in Weight 95.6 kg Pharmacy Admission Review Renal Dosing Renal Dosing: BUN 14 mg/dL (7-18) 06/28/24 04:10 Creatinine 1.1 mg/dL (0.70-1.30) 06/28/24 04:10 Medications needing adjustments: Reviewed (CrCl 68.4 mL/min) List of meds needing interventions: Current medications are okay Anticoagulation Anticoagulation: Hgb 14.5 g/dL (13.5-17.5) 06/28/24 04:10 Hct 45.4 % (40.0-50.0) 06/28/24 04:10 Plt Count 262 10^3/uL (130-400) 06/28/24 04:10 Creatinine 1.1 mg/dL (0.70-1.30) 06/28/24 04:10 DVT Prophylaxis: Reviewed Medications: Enoxaparin (40mg daily) Relevant Labs Relevant Labs: Sodium 145 mmol/L (136-145) 06/28/24 04:10 Potassium 4.3 mmol/L (3.5-5.1) 06/28/24 04:10 Chloride 107 mmol/L (98-107) 06/28/24 04:10 Magnesium 2.2 mg/dL (1.8-2.4) 06/28/24 04:10 Electrolytes, C-Reactive P, ESR: Reviewed (glucose 221 at 0410 - does have order for prednisone 40mg daily) Cardiac Review Cardiac Review: Troponin I 9 ng/L (<or=76) 06/27/24 20:32 NT-Pro-B Natriuret Pep 63 pg/mL (<300) 06/27/24 19:01 Blood Pressure : Heart Rate 162/94 : 92 0717 Blood Pressure : Heart Rate 158/90 : 95 0404 Blood Pressure : Heart Rate 160/97 : 113 2253 BP, HR, EF%: Reviewed List meds needing interventions: Has order for amlodipine 2.5mg daily, isosorbide mononitrate CR 30mg daily and metoprolol XL 25mg daily QTc Review QTc: Reviewed (437 from 06/27/24) IV to PO Switch IV Medications: Reviewed (cefepime, doxycycline and vancomycin) Home Meds Home Med List reviewed: Intervened Relevent Home Meds Not ordered & why?: Augmentin (therapy completed) Changed metronidazole 1% gel to patients own order. Will ask nursing to see if this can be brought in for the patient. Patient filled (within past 90 days) montelukast and tamsulosin but they are not on home med list. Will ask nursing to check with patient. Current Meds Current Medication Order Review: Reviewed Pharmacy Antibiotic Review Relevant Labs: Relevant Labs 06/27/24 19:01 Procalcitonin 0.1 WBC 20.35 10^3/uL (4.4-10.8) H 06/28/24 04:10 Procalcitonin 0.1 ng/mL 06/27/24 19:01 Temperature 36.4 C Temperature 36.3 C Microbiology 06/27/24 19:35 Gram Stain - Final Sputum - Expectorated Gram positive Diplococci Pharmacy Antibiotic Activity: C/S review and Reviewed, no change Comments: Patient is on cefepime, doxycycline and vancomycin, day 1, for pneumonia. Vancomycin level was 15.3 this morning at 0410. Continue current dose of 1750mg q24h for predicted AUC of 534 and trough of 15.8. Will order another level if there are any significant changes in renal function. WBC decreased from 22.28, blood cultures pending.
[2024-06-28] MEDS: VANCOMYCIN/WATER (PEG) 1.75 GM/350 ML BAG IVPB (11:20)
[2024-06-28] MEDS: Metoprolol CR 25 MG TABCR PO (20:48)
[2024-06-28] MEDS: Atorvastatin 10 MG TAB 20 MG PO (20:48)
[2024-06-29 03:50] VITALS: BP 161/94; PULSE 91; RESP 18; TEMP 36.8; O2SAT 95
[2024-06-29] MEDS: CEFEPIME 2 GM in Normal Saline 100 ML IVPB (06:23)
[2024-06-29] MEDS: Levothyroxine 100 MCG TAB PO (06:24)
[2024-06-29 07:13] VITALS: BP 168/96; PULSE 88; RESP 16; TEMP 36.3; O2SAT 96
[2024-06-29] MEDS: Venlafaxine 150 MG CAPCR PO (07:47)
[2024-06-29] MEDS: Doxycycline Hyclate 100 MG CAP PO (07:47)
[2024-06-29] MEDS: Venlafaxine 75 MG CAPCR PO (07:47)
[2024-06-29] MEDS: Ascorbic Acid 500 MG TAB PO (07:47)
[2024-06-29] MEDS: Isosorbide Mononitrate 30 MG TABCR PO (07:47)
[2024-06-29] MEDS: Cholecalciferol (Vitamin D3) 1,000 UNIT TAB 1000 UNITS PO (07:47)
[2024-06-29] MEDS: Aspirin E.C. 81 MG TABEC PO (07:47)
[2024-06-29] MEDS: Omeprazole 20 MG CAPCR 40 MG PO (07:47)
[2024-06-29] MEDS: amLODIPine 2.5 MG TAB PO (07:47)
[2024-06-29] MEDS: Multivitamin w/Minerals TAB 1 TAB PO (07:47)
[2024-06-29] MEDS: Normal Saline Flush 10 ML SYR IVP (07:47)
[2024-06-29] MEDS: predniSONE 20 MG TAB 40 MG PO (07:48)
[2024-06-29] MEDS: buPROPion-CR 150 MG TABCR PO (07:48)
--- NOTE | 2024-06-29 08:43 | PDOC.CMPRO ---
Date of service: 06/29/24 Time of Service: 08:43 Care Management Progress Note Discharge Potential Discharge Needs: PCP F/U Appt Anticipated Barriers to Discharge: None Identified Patient/Family Education Needs: Review discharge instructions, discuss Ask Me Three Transportation: Private vehicle Plan: Anticipate Dharmesh will be discharged home with no new services. He will follow up with his community providers and plan of care and transport with his brother. His brother will transport one of Dharmesh's home tanks for the ride home. CM will follow and continue to support discharge needs. P SDOH(Care Management) Screening Will the Patient Participate in the Screening?: Yes Do you worry about having a steady place to live?: no Problems where you live: no known problems In the past 12 months, have you had to go without electric, gas, oil or water in your home?: no Have you or anyone in your house had to go without enough food to eat?: yes Has lack of transportation kept you from medical appointments or from doing things needed for daily living?: no Has anyone in your support network made you feel unsafe for any reason?: no Health Related Social Needs Health related social needs: food insecurity(Z59.41)
--- NOTE | 2024-06-29 09:27 | W.PM.DS.N ---
Date of service: 06/29/24 Time of Service: 14:00 DS: Diagnosis Discharge Diagnosis (1) Sepsis: Status: Acute (2) COPD with acute exacerbation: Status: Acute (3) Acute on chronic respiratory failure with hypoxia: Status: Acute (4) GERD (gastroesophageal reflux disease): (5) Hypertension: (6) Hypothyroidism: (7) Hyperlipidemia: Discharge Plan Disposition Patient Disposition: Home Condition: Good Discharge Details Reason For Visit: Acute on chronic hypoxic/hypercapnic respiratory f Admit Date/Time: 06/27/24 21:40 Admit Provider: Wesly Marinelli Attending Provider: Wesly Marinelli Primary Care Provider: Arelis Michele V Hospital Course Hospital Course: Patient initially presented with signs and symptoms that were determined to be secondary to sepsis pneumonia with an acute exacerbation of COPD and acute on chronic hypoxic respiratory failure. Quickly after admission patient was back down from maximum 3 L nasal cannula to his baseline 2 L nasal cannula after being treated with an initial dose of IV Solu-Medrol in combination with p.o. prednisone, nebulizer treatments as well as Vanco and Zosyn for pneumonia. Given patient's significant improvement, was determined he was stable for discharge and will continue on a long p.o. prednisone taper for which she will discuss with his chief engineer research, and transition to p.o. levoquin to complete antibiotic course for community-acquired pneumonia. Home Meds and New Rx's Prescriptions: New prednisone 20 mg Tablet See Taper PO DAILY Qty: 19 0RF Taper: Prednisone 20mg taper 40 mg Daily for 5 Days and 0 Hour 30 mg Daily for 5 Days and 0 Hour 20 mg Daily for 5 Days and 0 Hour 10 mg Daily for 5 Days and 0 Hour 5 mg Daily for 5 Days and 0 Hour levofloxacin 750 mg tablet 750 mg PO DAILY Qty: 7 0RF Continued PreserVision AREDS 4,296 mcg-226 mg-90 mg capsule 1 cap PO DAILY albuterol sulfate 90 mcg/actuation HFA aerosol inhaler 2 puff inhalation QID PRN (Reason: shortness of breath or wheezing) Qty: 8.5 3RF venlafaxine 75 mg capsule,extended release 24hr 75 mg PO DAILY Rx Instructions: taken with 150mg capsule bupropion HCl [Wellbutrin SR] 150 mg tablet sustained-release 12 hr 150 mg PO QAM isosorbide mononitrate 30 mg tablet extended release 24 hr 30 mg PO DAILY diclofenac sodium 3 % gel 1 applic TP TID PRN amlodipine 2.5 mg tablet 2.5 mg PO DAILY Qty: 90 3RF atorvastatin 10 mg tablet 20 mg PO DAILY trazodone 50 mg tablet 50 mg PO HS multivitamin with minerals 1 EACH tablet 1 ea PO DAILY cholecalciferol (vitamin D3) 1,000 UNIT tablet 1,000 unit PO DAILY ascorbic acid (vitamin C) [Vitamin C] 500 MG tablet 500 mg PO DAILY metronidazole 1 % gel 1 applic topical BID albuterol sulfate 2.5 mg /3 mL (0.083 %) solution for nebulization 2.5 mg inhalation QID PRN (Reason: shortness of breath or wheezing) Qty: 180 6RF aspirin [Aspir-81] 81 MG tablet,delayed release (DR/EC) 81 mg PO DAILY nitroglycerin 0.4 mg Tablet, Sublingual 0.4 mg SUBLINGUAL ONCE metoprolol succinate 25 mg tablet extended release 24 hr 25 mg PO HS montelukast 10 mg tablet 10 mg PO DAILY Patient Comments: TAKE ONE TABLET BY MOUTH EVERY DAY tamsulosin 0.4 mg capsule 0.4 mg PO HS Patient Comments: TAKE ONE CAPSULE BY MOUTH AT BEDTIME venlafaxine [Effexor XR] 150 mg Capsule,Extended Release 24hr 150 mg PO DAILY levothyroxine 100 mcg tablet 100 mcg PO DAILY Discontinued omeprazole [Prilosec] 40 MG capsule,delayed release(DR/EC) 40 mg PO DAILY prednisone 20 mg tablet 40 mg PO DAILY Qty: 10 0RF Rx Instructions: Take 2 tablets once a day for 5 days. amoxicillin-pot clavulanate 875-125 mg tablet 1 tab PO BID Qty: 10 0RF doxycycline hyclate 100 mg capsule 100 mg PO BID Qty: 10 0RF Discharge Instructions Stand Alone Forms: Nursing Discharge Form Referrals: Arelis Michele MD [Primary Care Provider] - 07/03/24 11:30 am Activity:: Activity as Tolerated Equipment/Supplies:: No Equipment Needed Diet:: As Tolerated Discharge Orders Discharge Orders: Discharge Order (Routine); Ordered 06/29/24 Ordered By: Patrick River Discharge Data Discharge Date/Time-TO BE ENTERED AT DEPARTURE: 06/29/24 13:13 DS: Summary Time Spent with Patient providing and/or coordinating discharge services: Greater than 30 minutes Status at Discharge Functional status at discharge: independent ambulation Overall status at discharge: patient is back to baseline Mental Status: mental status grossly normal Speech and Movement: speech and movement normal Mood: congruent mood Affect: normal affect Quality:SDOH Health Related Social Needs: Health related social needs food insecurity(Z59.41) Health related social needs details MOW and Options Counseling referral to [facility]. Exam Narrative Exam Narrative: Well-appearing older gentleman laying in bed in no acute distress, 2 L nasal cannula in place, awake, alert, oriented x 4, heart regular rate rhythm, lungs with diffuse end expiratory wheezing throughout, abdomen soft, nontender, nondistended Psych Mental Status: mental status grossly normal Speech and Movement: speech and movement normal Mood: congruent mood Affect: normal affect DS: Data Vitals/I&O Vitals and I&O: Vital Signs Temperature 97.3 F L 06/29/24 07:13 Temperature Source Tympanic 06/29/24 07:13 Pulse 88 06/29/24 07:13 Pulse Rhythm Regular 06/27/24 22:53 Pulse 114 H 06/27/24 22:30 Respiratory Rate 16 06/29/24 07:13 Respiratory Effort Short of Breath 06/27/24 22:53 Respiratory Depth Shallow 06/27/24 22:53 Respiratory Pattern Tachypnea 06/27/24 22:53 Blood Pressure 168/96 H 06/29/24 07:13 Blood Pressure Mean 110 06/27/24 19:31 Blood Pressure Position Sitting 06/27/24 18:49 Pulse Oximetry 96 06/29/24 07:13 Oxygen Delivery Method Nasal Cannula 06/29/24 07:13 Oxygen Flow Rate 2 06/29/24 03:50 Pain Level 0 06/29/24 07:13 Comment RN notified. 06/29/24 07:13 Intake & Output 06/28/24 06/29/24 06/29/24 17:59 05:59 17:59 Intake Total 200 / 200 660 / 860 Output Total 1375 / 1375 675 / 0 325 / 325 Balance -1175 / -1175 -15 / -1190 -325 / -325 Intake: IV 200 / 200 660 / 860 Output: Urine 1375 / 1375 67 / 2050 325 / 325 Other: Urine Color Yellow Yellow Yellow Urine Appearance Cloudy Cloudy Clear Urine Odor Normal Normal Normal Comment voided Data Completed and Pending Labs on day of discharge: Preliminary micro results at discharge 06/27/24 19:07 Blood Culture - Preliminary Blood NO GROWTH 24 HOURS 06/27/24 19:01 Blood Culture - Preliminary Blood NO GROWTH 24 HOURS 06/27/24 19:35 Sputum Culture - Preliminary Sputum - Expectorated Normal [facility] All Active Problems (Updated 06/28/24 @ 08:40 by Patrick River MD) COPD with acute exacerbation (Acute) Sepsis (Acute) Acute on chronic respiratory failure with hypoxia (Acute) Respiratory failure (Acute) Pneumonia (Acute) Community acquired pneumonia (Acute) Compression fx, thoracic spine (Acute) Hypoxic respiratory failure (Acute) Discharge planning issues (Acute) Acute hypoxic respiratory failure (Acute) Wheezing on auscultation (Acute) Recurrent infections (Acute) Neuromuscular respiratory weakness (Acute) Diaphragm paralysis (Acute) Macular degeneration (Acute) Sacroiliac joint pain (Acute) Hip pain (Acute) Knee pain (Acute) Prediabetes (Acute) Dental infection (Acute) Skin lesion (Acute) COVID-19 virus infection (Acute) Nasal mucosa dry (Acute) Chronic cough (Acute) Basal cell carcinoma (Acute) Actinic keratosis (Acute) Ureterolithiasis (Acute) Coronary artery disease (Chronic) Chest pain (Acute) Wheezing (Acute) Nocturnal cough (Acute) Cardiomyopathy (Chronic) SOB (shortness of breath) (Acute) Melena (Acute) Dysphagia (Acute) Strain of calf muscle (Acute 06/30/19) Leg hematoma (Acute 06/30/19) Tubular adenoma of colon (Chronic) GERD (gastroesophageal reflux disease) (Chronic) Xerostomia (Acute 08/17/13) Winged scapula of left side (Acute 04/09/16) Tendinitis of left rotator cuff (Acute 04/09/16) Rhinitis (Acute 08/31/13) Personal history of antineoplastic chemotherapy (Acute 10/14/17) 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) Epistaxis (Acute 10/14/17) Acute sinusitis (Acute 08/17/13) Medical History Pneumonia CAD (coronary artery disease) of artery bypass graft BPH (benign prostatic hyperplasia) Rheumatoid arthritis (10/14/17) Sjogren syndrome, unspecified Actinic keratoses Tubular adenoma Other osteoporosis with current pathological fracture, vertebra(e), subsequent encounter for fracture with routine healing Hypertension Rosacea GERD (gastroesophageal reflux disease) Peripheral neuropathy Sicca syndrome Overweight History of partial colectomy Hypothyroidism Hyperlipidemia Dyspnea Depression Pulmonary hypertension Anxiety Pharyngeal disorder Polyarthralgia Steroid-induced osteoporosis Elevated hemidiaphragm Epistaxis Hx of ventral hernia repair Insomnia Rheumatoid arthritis Complicated grief Surgical History Stented coronary artery (~03/20/19) Hernia Repair, Incisional Colonoscopy - IV Sedation (~11/15/09) 09/30/2019 [facility] sessile repeat 3 yrs per Violeta note Colectomy Social History Smoking/Tobacco Use Status: Never Smoking risk assessment performed?: Yes Alcohol Intake: never Drug use: Never Substance use type: does not use Housing: assisted living facility What type of physical activity do you participate in: none Do you feel safe at home: Yes Do you feel safe in your relationship?: Yes Time Spent with Patient Time Spent with Patient: <45 minutes Time was spent: preparing to see the patient(eg.review tests), obtaining and/or reviewing separately otained hiistory, ordering medications,tests, procedures, referring, communicating with other health care manager cna, indepentently interpreting results, counseling the patient and care coordination
[2024-06-29] MEDS: VANCOMYCIN/WATER (PEG) 1.75 GM/350 ML BAG IVPB (09:58)
--- NOTE | 2024-06-29 11:19 | W.NUTRFU ---
Date of service: 06/29/24 Time of Service: 11:20 Nutrition Note NOTE: PT is 73yo male admitted for acute COPD exac., sepsis, PNA. PMH significant for pre-diabetes, dysphagia, CAD. Weight has been stable x 7 months. Po intake only recorded twice in his two days here but points to good po intake. PT takes MVI at home (assisted living). Assessed currently at lower nutrition risk. No aggressive nutrition intervention at this time - discharge anticipated today. Will continue to monitor weight, labs, and any other indicators of change in nutrition status Time Spent in Nutritional Counseling and Treatment: 5 min
--- NOTE | 2024-06-29 14:18 | CMDISCH_ITS ---
Date of service: 06/29/24 Time of Service: 14:18 LACE Index Scoring Tool Questions: Length of Stay (in days): 2 Was the patient admitted via the E.D.?: Yes Comorbidities: Chronic Pulmonary Disease E.D. Visits: 4 Answers: Total Score: 11 Risk of Readmission: High Risk Care Management Discharge Plan Reason for Hospitalization: hypoxic respiratory failure Discharge Plan: Dharmesh will be discharged home with no new services. He will follow up with his community providers and plan of care and transport with his brother. His brother will transport one of Dharmesh's home tanks for the ride home. Patient/Family Education Needs: Review discharge instructions, limitations, follow up plan and discuss Ask Me Three SDOH Health Related Social Needs: Health related social needs food insecurity(Z59.41) Health related social needs details [facility] and [facility] unseling referral to [facility]. Health related social needs: food insecurity(Z59.41)
[2024-07-29 14:48] LABS: Fungal Culture & Smear See Comments
== END 2024-06-29 13:13 | disposition home or self-care (01) | DRG 871 ==
LOC: ER 21:44 → MS 22:47
PROVIDERS: Admitting Provider Family Medicine; Emergency Provider Physician Assistant; PCP Family Medicine; Visit Provider Family Medicine
DX: J18.9 Pneumonia, unspecified organism (principal); J96.21 Acute and chronic respiratory failure with hypoxia; E87.20 Acidosis, unspecified; J44.1 Chronic obstructive pulmonary disease with (acute) exacerbation; J44.0 Chronic obstructive pulmonary disease with (acute) lower respiratory infection; D84.821 Immunodeficiency due to drugs; I25.810 Atherosclerosis of coronary artery bypass graft(s) without angina pectoris; M06.9 Rheumatoid arthritis, unspecified; A41.9 Sepsis, unspecified organism; K21.9 Gastro-esophageal reflux disease without esophagitis; I10 Essential (primary) hypertension; E03.9 Hypothyroidism, unspecified; I25.5 Ischemic cardiomyopathy; Z99.81 Dependence on supplemental oxygen; Z79.620 Long term (current) use of immunosuppressive biologic; Z79.52 Long term (current) use of systemic steroids; R73.03 Prediabetes; R05.3 Chronic cough; N40.0 Benign prostatic hyperplasia without lower urinary tract symptoms; M35.00 Sjogren syndrome, unspecified; M81.0 Age-related osteoporosis without current pathological fracture; G62.9 Polyneuropathy, unspecified; E78.5 Hyperlipidemia, unspecified; F32.A Depression, unspecified; I27.20 Pulmonary hypertension, unspecified; Z95.5 Presence of coronary angioplasty implant and graft; Z90.49 Acquired absence of other specified parts of digestive tract
CPT/HCPCS: 00123; 36415; 71275; 80053; 82805; 84145; 85027; 87040; 87077; 87102; 87206; 87637; 93005; 94640; 96365; 96367; 96368; 96375; 99285; J1650; 71045; 80202; 81003; 81015; 83605; 83735; 83880; 84439; 84443; 84484; 85025; 85379; 87070; 87205; 93010; 94760; 99223; 99233; 99239; J0692; J2919; J3370; J3372; J7512; J7620; Q9967

== ENCOUNTER → 2024-07-22 10:37 | Outpatient (BNVA) | payer OTHER, SELFPAY | PROVIDERS: PCP Family Medicine; Referring Provider Family Medicine; Visit Provider Physician Assistant Surgical | DX: J98.6 Disorders of diaphragm (principal); R05.3 Chronic cough; M06.9 Rheumatoid arthritis, unspecified; G70.9 Myoneural disorder, unspecified; J99 Respiratory disorders in diseases classified elsewhere; B99.9 Unspecified infectious disease | CPT/HCPCS: 99214 ==

== ENCOUNTER 2024-08-04 01:13 | Outpatient (CLI) | payer OTHER, SELFPAY ==
--- NOTE | 2024-08-04 11:05 | DI.RAD_ITS ---
Exam(s) XR CHEST 2V PA LATERAL EXAM: XR CHEST 2V PA LATERAL CLINICAL HISTORY: F/U PNEUMONIA,J18.9 TECHNIQUE: 2D digital imaging was performed. Two views. COMPARISON: CR XR CHEST 2V PA LATERAL from 06/16/[address] CHEST PE CTA from 06/27/2024 CR,XR XR PORTABLE CHEST AP from 06/27/2024 FINDINGS: HEART: Normal size. Aorta: Not dilated. PULMONARY VASCULATURE: Normal. MEDIASTINUM: Unremarkable. LUNGS: Difficult to evaluate due to elevation of the right diaphragm and under penetration at the joselyn g bases. Basilar atelectasis is present. No definite infiltrates. PLEURAL SPACE: No pleural effusion or pneumothorax. BONE:Moderate compression fracture of T7 which appears slightly worse when compared with the the most recent CT. There is now mild compression of the superior endplate of T8, not present previously. SOFT TISSUES: Unremarkable. IMPRESSION: Basilar atelectasis. No infiltrates are visible. Increased compression of the T7 vertebral body. New mild compression fracture of the superior endpla te of T8. DATA REPOSITORY: RADIATION DOSE DELIVERED:
== END 2024-08-04 01:33 ==
LOC: DI 01:13
PROVIDERS: PCP Family Medicine; Visit Provider Family Medicine
DX: J98.11 Atelectasis (principal)
CPT/HCPCS: 71046

== ENCOUNTER 2024-08-20 14:59 | Inpatient (IN) | payer OTHER, SELFPAY ==
[2024-08-20] VITALS (15 sets, daily range): BP systolic 113–166; BP diastolic 68–88; PULSE 97–126; RESP 16–33; TEMP 36.3–37.2; O2SAT 89–94
--- NOTE | 2024-08-20 15:00 | RT.EKG_ITS ---
APPROVED REPORT Exam: Resting ECG Reason for Exam: SOB Patient Location: E HR:127 bpm ECG Measurements Heart Rate 127 AXIS ID 171 P 50 QRSd 95 QRS 3 QT 305 T 39 QTc 440 Conclusion Sinus tachycardia, rate 127 No interval abnormalities No STEMI PAC
--- NOTE | 2024-08-20 15:30 | DI.CT_ITS ---
Exam(s) CT CHEST PE CTA EXAM: CT CHEST PE CTA CLINICAL HISTORY: recurrent PNA, cough, tachycardic. TECHNIQUE: Imaging Protocol: CT angiography of the chest was performed using pulmonary embolus edgar col. Multi planar reconstructions were performed. CONTRAST MATERIAL: Intravenous: Omnipaque 350 Contrast volume: 100 cc COMPARISON: CT CT CHEST PE CTA from 06/27/2024 FINDINGS: CHEST: PULMONARY ARTERIES: There are no intraluminal filling defects to suggest acute pulmonary emboli. LUNGS: There is ground-glass infiltrate in the anterior segment of the right upper lobe and there is also some infiltrate in the right middle lobe and some atelectasis in the basal segments of the right lower lobe. This is related to elevation the right hemidiaphragm. In the opposite-left lung there is some ground-glass infiltrate in the apical posterior segment of the left upper lobe adjacent to th e uppermost aspect of the left major fissure. Also some ground-glass infiltrate more anteriorly in t he left upper lobe. Also some similar findings in the lingular segment of the left lung. There are no significant pleural effusions.. MEDIASTINUM: There is no hilar nor mediastinal adenopathy. CARDIAC: Heart size is upper normal. There is no pericardial effusion.Caliber of the thoracic aorta is within normal limits. No evidence of aortic dissection. There is no significant shift of the inte rventricular septum. PARTIALLY VISUALIZED UPPERMOST ABDOMEN: No obvious findings OSSEOUS: There is mild compression fracture at superior endplate of T6 and T7. Mild posterior bulgin g of the cortex evident at T7 level. There is also nonacute appearing anterior wedging of T12 verteb ral body.. IMPRESSION: 1. No evidence of acute pulmonary emboli.. 2. Areas of ground-glass infiltrate in the bilateral upper lobes and lingular segment of the left joselyn g, as well as some infiltrate in the right middle lobe and atelectatic findings in the right lung bas e above the elevated right hemidiaphragm. There are no pleural effusions. No significant intrathora cic adenopathy. 3. Mild compression fractures of T6, T7, and T12. RADIATION DOSE DELIVERED: Total DLP DATA REPOSITORY: All CT scans at this facility are submitted to the National Radiology Data Registry (NRDR) Dose Index Registry (DIR) with the [employer] (A[employer]). RADIATION OPTIMIZATION: All CT scans at this facility use at least one of these dose optimization te chniques: automated exposure control; mA and/or kV adjustment per patient size (includes targeted exa ms where dose is matched to clinical indication); or iterative reconstruction.
--- NOTE | 2024-08-20 15:39 | W.ED.GENAD ---
Discharge Plan Disposition Patient Disposition: Admit to [facility] Condition: Stable Discharge Details Chief Complaint: SOB Clinical Impression: Recurrent bacterial pneumonia, GERD (gastroesophageal reflux disease), Coronary artery disease, Prediabetes, Diaphragm paralysis, Neuromuscular respiratory weakness Primary Care Provider: Arelis Michele V ED Provider: Fara Garcia Home Meds and New Rx's Prescriptions: No Action PreserVision AREDS 4,296 mcg-226 mg-90 mg capsule 1 cap PO DAILY albuterol sulfate 90 mcg/actuation HFA aerosol inhaler 2 puff inhalation QID PRN (Reason: shortness of breath or wheezing) Qty: 8.5 3RF venlafaxine 75 mg capsule,extended release 24hr 75 mg PO DAILY Rx Instructions: taken with 150mg capsule bupropion HCl [Wellbutrin SR] 150 mg tablet sustained-release 12 hr 150 mg PO QAM isosorbide mononitrate 30 mg tablet extended release 24 hr 30 mg PO DAILY diclofenac sodium 3 % gel 1 applic TP TID PRN amlodipine 2.5 mg tablet 2.5 mg PO DAILY Qty: 90 3RF atorvastatin 10 mg tablet 20 mg PO DAILY trazodone 50 mg tablet 50 mg PO HS multivitamin with minerals 1 EACH tablet 1 ea PO DAILY cholecalciferol (vitamin D3) 1,000 UNIT tablet 1,000 unit PO DAILY ascorbic acid (vitamin C) [Vitamin C] 500 MG tablet 500 mg PO DAILY albuterol sulfate 2.5 mg /3 mL (0.083 %) solution for nebulization 2.5 mg inhalation QID PRN (Reason: shortness of breath or wheezing) Qty: 180 6RF aspirin [Aspir-81] 81 MG tablet,delayed release (DR/EC) 81 mg PO DAILY nitroglycerin 0.4 mg Tablet, Sublingual 0.4 mg SUBLINGUAL ONCE metoprolol succinate 25 mg tablet extended release 24 hr 25 mg PO HS montelukast 10 mg tablet 10 mg PO DAILY Patient Comments: TAKE ONE TABLET BY MOUTH EVERY DAY tamsulosin 0.4 mg capsule 0.4 mg PO HS Patient Comments: TAKE ONE CAPSULE BY MOUTH AT BEDTIME venlafaxine [Effexor XR] 150 mg Capsule,Extended Release 24hr 150 mg PO DAILY levothyroxine 100 mcg tablet 100 mcg PO DAILY HPI General Mode of arrival: ambulatory. Date/Time Provider Initiated Documentation: 08/20/24 15:00. Limitations to Documentation: no limitations. Information obtained by: patient and old records reviewed. HPI Narrative: HPI: This is a 73-year-old male patient with a past medical history significant for right diaphragm paralysis, recurrent pneumonia, COPD, respiratory failure, prediabetes, GERD, who is presenting for evaluation of ongoing cough productive of sputum, tachycardia and diaphoresis. The patient was seen at [facility], just finished his last dose of levofloxacin and prednisone for pneumonia and COPD flare. He states that since he had COVID-pneumonia in August 2023 he has not been well, and has had numerous rounds of antibiotics and steroids. He returns today with similar symptoms, states that the urgent care providers noted him to be tachycardic, tachypneic, and recommended that he seek care in the emergency department given the failure of outpatient management. The patient states that he is chest pain-free, has no history of heart failure and has not had any peripheral edema. He has been recovering from shingles on his back since . Has been admitted to our facility 3 times over the last year for pneumonia related complaints. At home he wears oxygen, 2 and half liters, does not typically bring it with him during travel. Exam: Gen: awake and alert, in no apparent distress. Appears well nourished. HEENT: PERRL. External ears and nose normal, mucous membranes moist. Neck: Supple, full range of motion, no observable masses Lungs: No increased work of breathing, lung sounds with diffuse expiratory wheezing and coarse crackles CV: Heart with tachycardic rate and regular rhythm, no murmurs auscultated. Strong and symmetrical radial pulses. Abdomen: Soft, nondistended, non-tended to palpation. No rigidity, rebound tenderness, or guarding. MSK: No joint swelling, no redness. Full ROM without limitation, no external traumatic findings. No peripheral edema Skin: The patient has a healing dermatomal rash to the right side of his back. Neuro: Cranial nerves II-XII intact and symmetrical bilaterally. 5/5 strength in all muscle groups x4 extremities. No sensory deficits. Ambulates with steady gait. Psych: Appropriate for situation. MDM: This is a 73-year-old male patient presenting for evaluation of cough and sputum production with tachycardia and tachypnea. Differential includes but is not limited to pneumonia, bronchitis, certainly considered sepsis and bacteremia. The patient is not on anticoagulants and I did consider pulmonary embolism. Considered COPD exacerbation, no evidence for fluid overload, pulmonary edema, heart failure. The patient's diaphragmatic paralysis could certainly be contributing to atelectasis and poor pulmonary secretion clearance. I also considered mass effect given the recurrent nature of the pneumonia, patient no chest pain to suggest ACS. The patient at this time is not hypotensive, but given his extensive steroid use over the last year I will certainly be aware of any hypotension given his potential for adrenal insufficiency and steroid dependence. We will obtain a sepsis workup to include CBC, CMP, magnesium, troponin, procalcitonin, lactate, and Fluvid. After reviewing the patient's historical imaging studies, I will proceed with a CT pulmonary embolism study to better characterize any abnormalities which might be causing this patient's symptoms. We will obtain blood cultures. ED Course: I reviewed the patient's laboratory studies, which show a leukocytosis to 14 with no anemia or thrombocytopenia. VBG shows chronic hypercarbia without acidosis. UA with microscopic hematuria but no infection. Lactate and procalcitonin are low. Troponin was negative. CT chest shows no pulmonary embolism, does show improvement of his prior consolidations with new opacities concerning for recurrent pneumonia, as well as a new T6 mild compression fracture when compared to old imaging. Given these findings, sputum culture was sent and I did start the patient on ceftriaxone and azithromycin. I discussed this patient's case with the hospitalist, who does recommend broadening given the recent inpatient stays, and who has graciously accepted this patient for admission to their service for ongoing workup and management. Under my care the patient remained hemodynamically appropriate, and was transferred from our department without incident. Fara Garcia MD Related Data Home Medications ?Medication ?Instructions ?Recorded ?Confirmed cholecalciferol (vitamin D3) 25 1,000 unit PO DAILY 11/11/12 08/20/24 mcg (1,000 unit) tablet multivitamin with minerals 1 ea PO DAILY 11/11/12 08/20/24 aspirin 81 mg tablet,delayed 81 mg PO DAILY 02/20/14 08/20/24 release (Aspir-) ascorbic acid (vitamin C) 500 mg 500 mg PO DAILY 09/28/15 08/20/24 tablet (Vitamin C) nitroglycerin 0.4 mg sublingual 0.4 mg sublingual ONCE 05/28/18 08/20/24 tablet venlafaxine 150 mg 150 mg PO DAILY 07/01/19 08/20/24 capsule,extended release 24 hr (Effexor XR) bupropion HCl 150 mg tablet,12 hr 150 mg PO QAM 12/08/19 08/20/24 sustained-release (Wellbutrin SR) diclofenac sodium 3 % topical gel 1 applic topical TID PRN 12/08/19 08/20/24 isosorbide mononitrate 30 mg 30 mg PO DAILY 12/08/19 08/20/24 tablet,extended release 24 hr venlafaxine 75 mg capsule,extended 75 mg PO DAILY 12/08/19 08/20/24 release 24 hr metoprolol succinate 25 mg 25 mg PO HS 03/07/21 08/20/24 tablet,extended release 24 hr amlodipine 2.5 mg tablet 2.5 mg PO DAILY #90 tabs 03/24/21 08/20/24 atorvastatin 10 mg tablet 20 mg PO DAILY 04/02/22 08/20/24 trazodone 50 mg tablet 50 mg PO HS 04/02/22 08/20/24 albuterol sulfate 2.5 mg/3 mL 2.5 mg (3 mL) inhalation QID PRN 07/09/23 08/20/24 (0.083 %) solution for nebulization shortness of breath or wheezing #180 mL vitamins A,C,L-tjdn-rdpxtc 4,296 1 cap PO DAILY 08/06/23 08/20/24 mcg-226 mg-90 mg capsule (PreserVision AREDS) levothyroxine 100 mcg tablet 100 mcg PO DAILY 11/07/23 08/20/24 albuterol sulfate 90 mcg/actuation 2 puff inhalation QID PRN 04/02/24 08/20/24 aerosol inhaler shortness of breath or wheezing #8.5 grams montelukast 10 mg tablet 10 mg PO DAILY 06/28/24 08/20/24 tamsulosin 0.4 mg capsule 0.4 mg PO HS 06/28/24 08/20/24 Previous Rx's ?Medication ?Instructions ?Recorded amlodipine 2.5 mg tablet 2.5 mg PO DAILY #90 tabs 03/24/21 albuterol sulfate 2.5 mg/3 mL 2.5 mg (3 mL) inhalation QID PRN 07/09/23 (0.083 %) solution for nebulization shortness of breath or wheezing #180 mL albuterol sulfate 90 mcg/actuation 2 puff inhalation QID PRN 04/02/24 aerosol inhaler shortness of breath or wheezing #8.5 grams Allergies Allergy/AdvReac Type Severity Reaction Status Date / Time abatacept (From Orencia) AdvReac Severe Nausea Verified 08/20/24 15:12 lisinopril AdvReac Mild cough Verified 08/20/24 15:12 calcium AdvReac kidney Verified 08/20/24 15:12 stones General Stated Complaint: SOB SHANEKA: 3 Course Vital Signs Vital signs: Vital Signs Temperature 36.7 C 08/20/24 15:05 Pulse 126 H 08/20/24 15:05 Respiratory Rate 26 H 08/20/24 15:05 Blood Pressure 166/68 H 08/20/24 15:05 Pulse Oximetry 93 08/20/24 15:05 Temperature 36.7 C 08/20/24 15:10 Temperature Source Oral 08/20/24 15:10 Pulse 123 H 08/20/24 15:10 Respiratory Rate 26 H 08/20/24 15:10 Blood Pressure 166/68 H 08/20/24 15:10 Blood Pressure Position Sitting 08/20/24 15:10 Pulse Oximetry 92 08/20/24 15:10 Oxygen Delivery Method Room Air 08/20/24 15:10 Oxygen Flow Rate 0 08/20/24 15:05 Pain Level 0 08/20/24 15:05 Lab/Test Results Lab/Test Results: 08/20/24 15:18 Blood Blood Culture - Pending 08/20/24 15:18 Blood Blood Culture - Pending Medical Decision Making Quality:SDOH Health Related Social Needs: Health related social needs food insecurity(Z59.41) Health related social needs details [facility] and [facility] Counseling referral to [facility]. [facility] All Active Problems (Updated 08/20/24 @ 17:11 by Fara Garcia MD) Recurrent bacterial pneumonia (Acute) Respiratory failure (Acute) Pneumonia (Acute) Community acquired pneumonia (Acute) Compression fx, thoracic spine (Acute) Hypoxic respiratory failure (Acute) Discharge planning issues (Acute) Acute hypoxic respiratory failure (Acute) Wheezing on auscultation (Acute) Recurrent infections (Acute) Neuromuscular respiratory weakness (Acute) Diaphragm paralysis (Acute) Macular degeneration (Acute) Sacroiliac joint pain (Acute) Hip pain (Acute) Knee pain (Acute) Prediabetes (Acute) Dental infection (Acute) Skin lesion (Acute) COVID-19 virus infection (Acute) Nasal mucosa dry (Acute) Chronic cough (Acute) Basal cell carcinoma (Acute) Actinic keratosis (Acute) Ureterolithiasis (Acute) Coronary artery disease (Chronic) Chest pain (Acute) Wheezing (Acute) Nocturnal cough (Acute) SOB (shortness of breath) (Acute) Melena (Acute) Dysphagia (Acute) Strain of calf muscle (Acute 06/30/19) Leg hematoma (Acute 06/30/19) Tubular adenoma of colon (Chronic) GERD (gastroesophageal reflux disease) (Chronic) Xerostomia (Acute 08/17/13) Winged scapula of left side (Acute 04/09/16) Tendinitis of left rotator cuff (Acute 04/09/16) Rhinitis (Acute 08/31/13) Personal history of antineoplastic chemotherapy (Acute 10/14/17) 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) Epistaxis (Acute 10/14/17) Acute sinusitis (Acute 08/17/13) Medical History (Updated 08/20/24 @ 17:11 by Fara Garcia MD) Pneumonia BPH (benign prostatic hyperplasia) Rheumatoid arthritis (10/14/17) Sjogren syndrome, unspecified Actinic keratoses Tubular adenoma Other osteoporosis with current pathological fracture, vertebra(e), subsequent encounter for fracture with routine healing Hypertension Rosacea GERD (gastroesophageal reflux disease) Peripheral neuropathy Sicca syndrome Overweight History of partial colectomy Hypothyroidism Hyperlipidemia Dyspnea Depression Pulmonary hypertension Anxiety Pharyngeal disorder Polyarthralgia Steroid-induced osteoporosis Elevated hemidiaphragm Epistaxis Hx of ventral hernia repair Insomnia Rheumatoid arthritis Complicated grief Surgical History Stented coronary artery (~03/20/19) Hernia Repair, Incisional Colonoscopy - IV Sedation (~11/15/09) 09/30/2019 [facility] sessile repeat 3 yrs per Violeta note Colectomy Social History Smoking/Tobacco Use Status: Never Smoking risk assessment performed?: Yes Alcohol Intake: never Drug use: Never Substance use type: does not use Housing: assisted living facility What type of physical activity do you participate in: none Do you feel safe at home: Yes Do you feel safe in your relationship?: Yes
[2024-08-20] MEDS: Normal Saline - Diluent 50 ML VIAL IJ (16:08)
[2024-08-20] MEDS: Omnipaque 350 MG/ML 100 ML BTL IJ (16:10)
[2024-08-20 16:17] LABS: Abs Immature Grans 0.07 10^3/uL (0.0-0.06); Absolute Eosinophil Count 0.13 10^3/uL (0.0-0.7); Absolute Lymphocyte Count 0.69 10^3/uL (1.2-3.4); Basophils % 0.1 %; Eosinophils % 0.9 %; HCT 46.3 % (40.0-50.0); Immature Grans % 0.5 %; Lymphocytes % 4.7 %; MCH 30.2 pg (27.0-33.0); MCHC 32.4 % (32.0-36.0); MCV 93 fL (80-95); MPV 9.4 fL (8.0-11.0); Monocytes % 3.7 %; Neutrophils % 90.1 %; Platelet Count 248 10^3/uL (130-400); RBC 4.97 10^6/uL (4.36-5.78); RDW 16.1 % (11.8-14.1); RDW-SD 54.8 fL; WBC 14.68 10^3/uL (4.4-10.8)
[2024-08-20 16:18] LABS: Absolute Basophil Count 0.01 10^3/uL (0.0-0.2); Absolute Monocyte Count 0.54 10^3/uL (0.1-0.8); Absolute Neutrophil Count 13.23 10^3/uL (1.2-6.7); BE (Venous) 10 mmol/L (-2-3); HCO3 (Venous) 35 mmol/L (23-28); O2 Sat (Venous) 50 %; TCO2 (Venous) 31 mmol/L (24-29); pCO2 (Venous) 60 mmHg (41-51); pH (Venous) 7.37 (7.31-7.41); pO2 (Venous) 27 mmHg
[2024-08-20 16:21] LABS: Lactate 1.4 mmol/L (0.6-1.4)
[2024-08-20 16:26] LABS: Bilirubin Negative (Negative); Blood Small (Negative); Clarity Clear (Clear); Glucose Negative (Negative); Ketones Negative (Negative); Leukocyte Esterase Negative (Negative); Nitrite Negative (Negative); Specific Gravity 1.015 (1.005-1.025); Urobilinogen 0.2 mg/dL (Up to 0.2)
[2024-08-20 16:27] LABS: Prothrombin Time 9.7 sec (9.1-11.1)
[2024-08-20 16:39] LABS: COVID-19 PCR Negative (Negative); Influenza A PCR Negative (Negative); Influenza B PCR Negative (Negative); RSV PCR Negative (Negative)
[2024-08-20 16:40] LABS: Magnesium 1.8 mg/dL (1.8-2.4); Troponin I 10 ng/L (<or=76)
[2024-08-20 16:42] LABS: Source Nasopharynx
[2024-08-20 16:42] LABS: Bacteria Rare HPF (Negative); C & S Indicated? No; Casts Negative LPF (Negative); Crystals Rare Calcium Oxalate HPF (Negative); Epithelial Cells Rare HPF (Negative); Mucus Negative (Negative); Other Cells Negative (Negative); WBC 0-2 HPF (0-5)
[2024-08-20 16:48] LABS: Procalcitonin < 0.10 ng/mL
[2024-08-20] MEDS: AZITHROMYCIN 500 MG in Normal Saline 250 ML 250 MG IVPB (17:22)
[2024-08-20] MEDS: cefTRIAXone 1 GM/50 ML BAG IVPB (17:23)
[2024-08-20 17:32] LABS: MRSA PCR Positive (Negative)
--- NOTE | 2024-08-20 17:41 | HPE_ITS ---
Date of service: 08/20/24 Time of Service: 17:41 Assessment and Plan Assessment and plan (1) Neuromuscular respiratory weakness: Status: Acute Assessment and plan: Certainly attributing to his current respiratory issues will follow-up in the outpatient setting with pulmonology (2) Diaphragm paralysis: Status: Acute Assessment and plan: As above (3) Community acquired pneumonia: Status: Acute Assessment and plan: Patient has had multiple contacts with the healthcare system recently in regards to pulmonology issues. Because of this we will start him on Vanco and Zosyn white blood and wound care consults (4) Melanoma: Status: Acute Assessment and plan: Patient states that he has an appointment for removal and would recommend doing this is soon as possible (5) Rheumatoid arthritis: Assessment and plan: It is old records there is mention of Rituxan but I do not see this is a current medication will monitor. This is important as this is a immunomodulators and can make his pneumonia is worse History of Present Illness History of Present Illness Chief Complaint: SOB Narrative: This is a 73-year-old gentleman who approximately a year ago was diagnosed with COVID and since then has had multiple pulmonary logic problems including multiple episodes of pneumonia. He is pulmonary status is compromised by having a right Vinayak diaphragmatic elevation. He does see Dr. Joya in the outpatient setting and was last seen on the 22 July of this year. Per signout from the ED doctors the patient was taking Levaquin for was most recent diagnosis of pneumonia but upon my discussion with the patient he states he was only taking prednisone. Nevertheless the patient was admitted to the hospitalist service as his CT did show episodes of pneumonia and his multiple risk factors. Per my discussion with the ER physician blood and sputum cultures have been ordered. Review of Systems All systems reviewed & are unremarkable except as noted in HPI and below PFSH All Active Problems (Updated 08/20/24 @ 17:46 by Luke Douglas MD) Melanoma (Acute) Recurrent bacterial pneumonia (Acute) Respiratory failure (Acute) Pneumonia (Acute) Community acquired pneumonia (Acute) Compression fx, thoracic spine (Acute) Hypoxic respiratory failure (Acute) Discharge planning issues (Acute) Acute hypoxic respiratory failure (Acute) Wheezing on auscultation (Acute) Recurrent infections (Acute) Neuromuscular respiratory weakness (Acute) Diaphragm paralysis (Acute) Macular degeneration (Acute) Sacroiliac joint pain (Acute) Hip pain (Acute) Knee pain (Acute) Prediabetes (Acute) Dental infection (Acute) Skin lesion (Acute) COVID-19 virus infection (Acute) Nasal mucosa dry (Acute) Chronic cough (Acute) Basal cell carcinoma (Acute) Actinic keratosis (Acute) Ureterolithiasis (Acute) Coronary artery disease (Chronic) Chest pain (Acute) Wheezing (Acute) Nocturnal cough (Acute) SOB (shortness of breath) (Acute) Melena (Acute) Dysphagia (Acute) Strain of calf muscle (Acute 06/30/19) Leg hematoma (Acute 06/30/19) Tubular adenoma of colon (Chronic) GERD (gastroesophageal reflux disease) (Chronic) Xerostomia (Acute 08/17/13) Winged scapula of left side (Acute 04/09/16) Tendinitis of left rotator cuff (Acute 04/09/16) Rhinitis (Acute 08/31/13) Personal history of antineoplastic chemotherapy (Acute 10/14/17) 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) Epistaxis (Acute 10/14/17) Acute sinusitis (Acute 08/17/13) Medical History (Updated 08/20/24 @ 17:46 by Luke Douglas MD) Pneumonia BPH (benign prostatic hyperplasia) Rheumatoid arthritis (10/14/17) Sjogren syndrome, unspecified Actinic keratoses Tubular adenoma Other osteoporosis with current pathological fracture, vertebra(e), subsequent encounter for fracture with routine healing Hypertension Rosacea GERD (gastroesophageal reflux disease) Peripheral neuropathy Sicca syndrome Overweight History of partial colectomy Hypothyroidism Hyperlipidemia Dyspnea Depression Pulmonary hypertension Anxiety Pharyngeal disorder Polyarthralgia Steroid-induced osteoporosis Elevated hemidiaphragm Epistaxis Hx of ventral hernia repair Insomnia Rheumatoid arthritis Complicated grief Surgical History Stented coronary artery (~03/20/19) Hernia Repair, Incisional Colonoscopy - IV Sedation (~11/15/09) [facility] Violeta note Colectomy Social History Smoking/Tobacco Use Status: Never Smoking risk assessment performed?: Yes Alcohol Intake: never Drug use: Never Substance use type: does not use Housing: assisted living facility What type of physical activity do you participate in: none Do you feel safe at home: Yes Do you feel safe in your relationship?: Yes Meds Allergies and Home Medications Allergies Allergy/AdvReac Type Severity Reaction Status Date / Time abatacept (From Orencia) AdvReac Severe Nausea Verified 08/20/24 15:12 lisinopril AdvReac Mild cough Verified 08/20/24 15:12 calcium AdvReac kidney Verified 08/20/24 15:12 stones Home Medications ?Medication ?Instructions ?Recorded ?Confirmed ?Type cholecalciferol (vitamin D3) 25 1,000 unit PO DAILY 11/11/12 08/20/24 History mcg (1,000 unit) tablet multivitamin with minerals 1 ea PO DAILY 11/11/12 08/20/24 History aspirin 81 mg tablet,delayed 81 mg PO DAILY 02/20/14 08/20/24 History release (Aspir-) ascorbic acid (vitamin C) 500 mg 500 mg PO DAILY 09/28/15 08/20/24 History tablet (Vitamin C) nitroglycerin 0.4 mg sublingual 0.4 mg sublingual ONCE 05/28/18 08/20/24 History tablet venlafaxine 150 mg 150 mg PO DAILY 07/01/19 08/20/24 History capsule,extended release 24 hr (Effexor XR) bupropion HCl 150 mg tablet,12 hr 150 mg PO QAM 12/08/19 08/20/24 History sustained-release (Wellbutrin SR) diclofenac sodium 3 % topical gel 1 applic topical TID PRN 12/08/19 08/20/24 History isosorbide mononitrate 30 mg 30 mg PO DAILY 12/08/19 08/20/24 History tablet,extended release 24 hr venlafaxine 75 mg capsule,extended 75 mg PO DAILY 12/08/19 08/20/24 History release 24 hr metoprolol succinate 25 mg 25 mg PO HS 03/07/21 08/20/24 History tablet,extended release 24 hr amlodipine 2.5 mg tablet 2.5 mg PO DAILY #90 tabs 03/24/21 08/20/24 Rx atorvastatin 10 mg tablet 20 mg PO DAILY 04/02/22 08/20/24 History trazodone 50 mg tablet 50 mg PO HS 04/02/22 08/20/24 History albuterol sulfate 2.5 mg/3 mL 2.5 mg (3 mL) inhalation QID PRN 07/09/23 08/20/24 Rx (0.083 %) solution for nebulization shortness of breath or wheezing #180 mL vitamins A,C,I-dhxb-dghxql 4,296 1 cap PO DAILY 08/06/23 08/20/24 History mcg-226 mg-90 mg capsule (PreserVision AREDS) levothyroxine 100 mcg tablet 100 mcg PO DAILY 11/07/23 08/20/24 History albuterol sulfate 90 mcg/actuation 2 puff inhalation QID PRN 04/02/24 08/20/24 Rx aerosol inhaler shortness of breath or wheezing #8.5 grams montelukast 10 mg tablet 10 mg PO DAILY 06/28/24 08/20/24 History tamsulosin 0.4 mg capsule 0.4 mg PO HS 06/28/24 08/20/24 History Exam Narrative Exam Narrative: Head eyes ears nose and throat: Normocephalic atraumatic mucous membranes moist he does have a lesion on the tip of his nose approximately 1 cm with erythematous borders. Neck: No lymphadenopathy no JVD no thyromegaly Cardiovascular: Regular rate and rhythm no rubs gallops Pulmonary: Decreased breath sounds bilaterally but with worsening coarse inspiratory and expiratory wheezing crackles worse on the right side Abdomen: Soft nontender nondistended bowel sounds active Extremities: No sinus clubbing or edema bilaterally Neurologic: Cranial nerves II through XII intact as tested reflexes in upper extremity normal as tested Psych: He is alert and orient x 3 no apparent distress General: 73-year-old gentleman appears her stated age no apparent distress Results Labs 08/20/24 16:05 Labs: Laboratory Results - last 24 hr 08/20/24 08/20/24 08/20/24 15:17 15:48 16:05 WBC 14.68 H RBC 4.97 Hgb 15.0 Hct 46.3 MCV 93 MCH 30.2 MCHC 32.4 RDW 16.1 H Plt Count 248 MPV 9.4 Immature Gran % 0.5 Neutrophils % 90.1 Lymphocytes % 4.7 Monocytes % 3.7 Eosinophils % 0.9 Basophils % 0.1 Nucleated RBC % 0.0 Absolute Neutrophils 13.23 H Absolute Lymphocytes 0.69 L Absolute Monocytes 0.54 Absolute Eosinophils 0.13 Absolute Basophils 0.01 PT 9.7 INR 1.0 VBG pH 7.37 VBG pCO2 60 H VBG pO2 27 VBG HCO3 35 H VBG Total CO2 31 H VBG O2 Saturation 50 VBG Base Excess 10 H VBG Lactate 1.4 Magnesium 1.8 Troponin I 10 Procalcitonin < 0.10 Urine Color Urine Clarity Urine pH Ur Specific [place] Urine Protein Urine Ketones Urine Blood Urine Nitrite Urine Bilirubin Urine Urobilinogen Ur Leukocyte Esterase Urine RBC Urine WBC Ur Epithelial Cells Urine Crystals Urine Bacteria Urine Casts Urine Mucus Urine Other Ur Culture Indicated? Urine Glucose COVID-19 Source Nasopharynx SARS-CoV-2 (PCR) Negative Influenza Type A (PCR) Negative Influenza Type B (PCR) Negative RSV (PCR) Negative MRSA (TEM-PCR) Positive A 08/20/24 08/20/24 08/20/24 16:18 16:20 18:18 WBC RBC Hgb Hct MCV MCH MCHC RDW Plt Count MPV Immature Gran % Neutrophils % Lymphocytes % Monocytes % Eosinophils % Basophils % Nucleated RBC % Absolute Neutrophils Absolute Lymphocytes Absolute Monocytes Absolute Eosinophils Absolute Basophils PT INR VBG pH VBG pCO2 VBG pO2 VBG HCO3 VBG Total CO2 VBG O2 Saturation VBG Base Excess VBG Lactate Magnesium Troponin I Cancelled Cancelled Procalcitonin Urine Color Yellow Urine Clarity Clear Urine pH 7.0 Ur Specific [place] 1.015 Urine Protein Negative Urine Ketones Negative Urine Blood Small H Urine Nitrite Negative Urine Bilirubin Negative Urine Urobilinogen 0.2 Ur Leukocyte Esterase Negative Urine RBC 5-10 H Urine WBC 0-2 Ur Epithelial Cells Rare Urine Crystals Rare Calcium Oxalate Urine Bacteria Rare Urine Casts Negative Urine Mucus Negative Urine Other Negative Ur Culture Indicated? No Urine Glucose Negative COVID-19 Source SARS-CoV-2 (PCR) Influenza Type A (PCR) Influenza Type B (PCR) RSV (PCR) MRSA (TEM-PCR) Last Vital Signs Temp 37.2 C 08/20/24 17:27 Pulse 116 H 08/20/24 17:27 Resp 22 08/20/24 17:33 BP 143/84 H 08/20/24 17:27 Pulse Ox 94 08/20/24 17:27 Time Spent Time spent with Patient: 40-54 minutes Time was spent: preparing to see the patient(eg.review tests), obtaining and/or reviewing separately otained hiistory, ordering medications,tests, procedures, referring, communicating with other health home care administrator, indepentently interpreting results, counseling the patient and care coordination
--- NOTE | 2024-08-20 18:44 | W.PC.ACHO ---
Registration Status: Primary Language: Preferred Language: ED Information & Data Chief Complaint SOB 08/20/24 15:44 Triage Note Pt has ongoing pneumonia. 08/20/24 15:05 Right diaphragm paralysis, right lung impaired. Pt reports ongoing pneumonia and SOB. Also has active shingles on back. Pt afebrile, has frequent cough with green sputum. Finished antibiotic today and last prednisone dose. Pt denies CP. On 2lpm O2 on at all times. Did not bring today. Medical / Surgical History (Last Reviewed 08/20/24 @ 17:55 by DONAVAN Abebe) Pneumonia BPH (benign prostatic hyperplasia) Rheumatoid arthritis (10/14/17) Sjogren syndrome, unspecified Actinic keratoses Tubular adenoma Other osteoporosis with current pathological fracture, vertebra(e), subsequent encounter for fracture with routine healing Hypertension Rosacea GERD (gastroesophageal reflux disease) Peripheral neuropathy Sicca syndrome Overweight History of partial colectomy Hypothyroidism Hyperlipidemia Dyspnea Depression Pulmonary hypertension Anxiety Pharyngeal disorder Polyarthralgia Steroid-induced osteoporosis Elevated hemidiaphragm Epistaxis Hx of ventral hernia repair Insomnia Rheumatoid arthritis Complicated grief (Last Reviewed 08/20/24 @ 17:55 by DONAVAN Abebe) Stented coronary artery (~03/20/19) Hernia Repair, Incisional Colonoscopy - IV Sedation (~11/15/09) Colectomy Most Recent Vital Signs Temperature 37.2 C 08/20/24 17:27 Temperature Source Oral 08/20/24 15:10 Pulse 111 H 08/20/24 18:31 Pulse 111 H 08/20/24 18:31 Respiratory Rate 28 H 08/20/24 18:31 Respiratory Effort Normal 08/20/24 17:33 Respiratory Depth Normal 08/20/24 17:33 Respiratory Pattern Normal 08/20/24 17:33 Blood Pressure 125/75 08/20/24 18:31 Blood Pressure Mean 90 08/20/24 18:31 Blood Pressure Position Sitting 08/20/24 15:10 Pulse Oximetry 89 L 08/20/24 18:31 Oxygen Delivery Method Room Air 08/20/24 15:10 Oxygen Flow Rate 0 08/20/24 15:05 Pain Level 0 08/20/24 15:05 Allergies abatacept (From Orencia) Adverse Reaction (Severe, Verified 08/20/24 15:12) Nausea lisinopril Adverse Reaction (Mild, Verified 08/20/24 15:12) cough calcium Adverse Reaction (Verified 08/20/24 15:12) kidney stones Precautions Isolation Droplet precaution 08/20/24 15:10 Active Medications Generic Name Dose Route Start Last Admin Trade Name Gera PRN Reason Stop Dose Admin Iohexol 100 ml 08/20/24 16:15 08/20/24 16:10 Omnipaque 350 Mg/Ml 100 Ml Btl IJ 09/19/24 23:59 100 ml DIRECTED JILLIAN Administration Sodium Chloride 50 ml 08/20/24 16:15 08/20/24 16:08 Normal Saline - Diluent 50 Ml Vial IJ 50 ml .FOR DI USE JILLIAN Administration IV IV Catheter Type [Left Saline Lock Antecubital] IV Catheter Gauge [Right 20 Antecubital] IV Catheter Gauge [Left 18 Antecubital] Diet Orders Category Date Time Status Regular/Normal [DIET] Nutrition 08/21/24 Breakfast Ordered Diagnostics 08/20/24 08/20/24 08/20/24 Range/Units 18:18 16:20 16:18 WBC (4.4-10.8) 10^3/uL RBC (4.36-5.78) 10^6/uL Hgb (13.5-17.5) g/dL Hct (40.0-50.0) % MCV (80-95) fL MCH (27.0-33.0) pg MCHC (32.0-36.0) % RDW (11.8-14.1) % Plt Count (130-400) 10^3/uL MPV (8.0-11.0) fL Immature Gran % % Neutrophils % % Lymphocytes % % Monocytes % % Eosinophils % % Basophils % % Nucleated RBC % (0.0-0.3) % Absolute Neutrophils (1.2-6.7) 10^3/uL Absolute Lymphocytes (1.2-3.4) 10^3/uL Absolute Monocytes (0.1-0.8) 10^3/uL Absolute Eosinophils (0.0-0.7) 10^3/uL Absolute Basophils (0.0-0.2) 10^3/uL PT (9.1-11.1) sec INR (0.9-1.1) VBG pH (7.31-7.41) VBG pCO2 (41-51) mmHg VBG pO2 mmHg VBG HCO3 (23-28) mmol/L VBG Total CO2 (24-29) mmol/L VBG O2 Saturation % VBG Base Excess (-2-3) mmol/L VBG Lactate (0.6-1.4) mmol/L Magnesium (1.8-2.4) mg/dL Troponin I Cancelled Cancelled (<or=76) ng/L Procalcitonin ng/mL Urine Color Yellow (Yellow) Urine Clarity Clear (Clear) Urine pH 7.0 (5-8) Ur Specific [place] 1.015 (1.005-1.025) Urine Protein Negative (Neg-Trace) mg/dL Urine Ketones Negative (Negative) mg/dL Urine Blood Small H (Negative) Urine Nitrite Negative (Negative) Urine Bilirubin Negative (Negative) Urine Urobilinogen 0.2 (Up to 0.2) mg/dL Ur Leukocyte Esterase Negative (Negative) Urine RBC 5-10 H (0-2) HPF Urine WBC 0-2 (0-5) HPF Ur Epithelial Cells Rare (Negative) HPF Urine Crystals Rare Calcium Oxalate (Negative) HPF Urine Bacteria Rare (Negative) HPF Urine Casts Negative (Negative) LPF Urine Mucus Negative (Negative) Urine Other Negative (Negative) Ur Culture Indicated? No Urine Glucose Negative (Negative) mg/dL COVID-19 Source SARS-CoV-2 (PCR) (Negative) Influenza Type A (PCR) (Negative) Influenza Type B (PCR) (Negative) RSV (PCR) (Negative) MRSA (TEM-PCR) (Negative) 08/20/24 08/20/24 08/20/24 Range/Units 16:05 15:48 15:17 WBC 14.68 H (4.4-10.8) 10^3/uL RBC 4.97 (4.36-5.78) 10^6/uL Hgb 15.0 (13.5-17.5) g/dL Hct 46.3 (40.0-50.0) % MCV 93 (80-95) fL MCH 30.2 (27.0-33.0) pg MCHC 32.4 (32.0-36.0) % RDW 16.1 H (11.8-14.1) % Plt Count 248 (130-400) 10^3/uL MPV 9.4 (8.0-11.0) fL Immature Gran % 0.5 % Neutrophils % 90.1 % Lymphocytes % 4.7 % Monocytes % 3.7 % Eosinophils % 0.9 % Basophils % 0.1 % Nucleated RBC % 0.0 (0.0-0.3) % Absolute Neutrophils 13.23 H (1.2-6.7) 10^3/uL Absolute Lymphocytes 0.69 L (1.2-3.4) 10^3/uL Absolute Monocytes 0.54 (0.1-0.8) 10^3/uL Absolute Eosinophils 0.13 (0.0-0.7) 10^3/uL Absolute Basophils 0.01 (0.0-0.2) 10^3/uL PT 9.7 (9.1-11.1) sec INR 1.0 (0.9-1.1) VBG pH 7.37 (7.31-7.41) VBG pCO2 60 H (41-51) mmHg VBG pO2 27 mmHg VBG HCO3 35 H (23-28) mmol/L VBG Total CO2 31 H (24-29) mmol/L VBG O2 Saturation 50 % VBG Base Excess 10 H (-2-3) mmol/L VBG Lactate 1.4 (0.6-1.4) mmol/L Magnesium 1.8 (1.8-2.4) mg/dL Troponin I 10 (<or=76) ng/L Procalcitonin < 0.10 ng/mL Urine Color (Yellow) Urine Clarity (Clear) Urine pH (5-8) Ur Specific [place] (1.005-1.025) Urine Protein (Neg-Trace) mg/dL Urine Ketones (Negative) mg/dL Urine Blood (Negative) Urine Nitrite (Negative) Urine Bilirubin (Negative) Urine Urobilinogen (Up to 0.2) mg/dL Ur Leukocyte Esterase (Negative) Urine RBC (0-2) HPF Urine WBC (0-5) HPF Ur Epithelial Cells (Negative) HPF Urine Crystals (Negative) HPF Urine Bacteria (Negative) HPF Urine Casts (Negative) LPF Urine Mucus (Negative) Urine Other (Negative) Ur Culture Indicated? Urine Glucose (Negative) mg/dL COVID-19 Source Nasopharynx SARS-CoV-2 (PCR) Negative (Negative) Influenza Type A (PCR) Negative (Negative) Influenza Type B (PCR) Negative (Negative) RSV (PCR) Negative (Negative) MRSA (TEM-PCR) Positive A (Negative) 08/20/24 16:05 Sputum Culture - Pending Sputum Gram Stain - Final 08/20/24 16:05 Blood Culture - Pending Blood 08/20/24 15:48 Blood Culture - Pending Blood Intake and Output - 24 Hour Total 08/20/24 14:58 thru 08/20/24 18:37 Intake Total 300 Output Total 500 Balance -200 Weight 92.533 kg Intake: IV 300 Output: Urine 500 Falls Risk Assessment History of Falls No History 08/20/24 15:10 Contributing Factors No Factors 08/20/24 15:10 Ambulatory Aids Independent 08/20/24 15:10 Tubes/Lines None 08/20/24 15:10 Gait Evaluation No gait disturbance 08/20/24 15:10 Cognition No cognitive impairment 08/20/24 15:10 Fall Total Score 0 08/20/24 15:10 Level of Risk Standard/Low Risk 08/20/24 15:10 Problems (Last Reviewed 08/20/24 @ 17:55 by DONAVAN Abebe) Melanoma (Acute) Community acquired pneumonia (Acute) Neuromuscular respiratory weakness (Acute) Diaphragm paralysis (Acute) v v v v v v v v v Sending and/or Receiving Nurses: Please use comment section below to note any information pertinent to the patient hand-off not included above. Information / Comments: A&Ox3. Tachy, diaphoretic, corse crackels to bilaterale lungs, 500 output using urinal, 1800 Lovenox injection not given in ER, did get azythromycin and ceph in ER, Independent in room, 18G LAC, 20G RAC, MRSA + in nares. Report received from: Maine COOK RN at [id number]
[2024-08-20] MEDS: PIPERACILLIN/TAZO 4.5 GM in Normal Saline 100 ML IVPB (20:05)
[2024-08-20] MEDS: traZODone 50 MG TAB PO (20:05)
[2024-08-20] MEDS: Tamsulosin 0.4 MG CAPCR PO (20:05)
[2024-08-20] MEDS: Metoprolol CR 25 MG TABCR PO (20:05)
[2024-08-20] MEDS: methylPREDNISolone SUCC 40 MG VIAL IVP (20:05)
[2024-08-20] MEDS: Normal Saline Flush 10 ML SYR IVP (20:06)
[2024-08-20] MEDS: Enoxaparin 40 MG/0.4 ML SYR SC (20:11)
[2024-08-20] MEDS: Lactated Ringers 1,000 ML 125 ML IV (20:54)
[2024-08-20] MEDS: VANCOMYCIN 2,000 MG in Normal Saline 500 ML 250 MG IVPB (21:22)
[2024-08-21] MEDS: methylPREDNISolone SUCC 40 MG VIAL IVP ×3 (03:19→20:32)
[2024-08-21] MEDS: PIPERACILLIN/TAZO 4.5 GM in Normal Saline 100 ML IVPB ×4 (03:19→20:32)
[2024-08-21] MEDS: Normal Saline Flush 10 ML SYR IVP ×4 (03:20→20:33)
[2024-08-21 03:25] VITALS: BP 141/93; PULSE 95; RESP 18; TEMP 36.2; O2SAT 96
[2024-08-21 05:38] LABS: Abs Immature Grans 0.03 10^3/uL (0.0-0.06); Absolute Basophil Count 0.01 10^3/uL (0.0-0.2); Absolute Eosinophil Count 0.01 10^3/uL (0.0-0.7); Absolute Monocyte Count 0.11 10^3/uL (0.1-0.8); Absolute Neutrophil Count 8.72 10^3/uL (1.2-6.7); Basophils % 0.1 %; Eosinophils % 0.1 %; HCT 39.1 % (40.0-50.0); HGB 12.8 g/dL (13.5-17.5); Immature Grans % 0.3 %; Lymphocytes % 8.3 %; MCHC 32.7 % (32.0-36.0); MCV 92 fL (80-95); MPV 9.6 fL (8.0-11.0); Monocytes % 1.1 %; Neutrophils % 90.1 %; Platelet Count 213 10^3/uL (130-400); RBC 4.27 10^6/uL (4.36-5.78); RDW 15.8 % (11.8-14.1); RDW-SD 53.2 fL; WBC 9.68 10^3/uL (4.4-10.8)
[2024-08-21] MEDS: Levothyroxine 100 MCG TAB PO (05:58)
[2024-08-21 06:01] LABS: ALT 21 U/L (16-63); AST 12 U/L (15-37); Albumin 2.4 g/dL (3.4-5.0); Alkaline Phosphatase 77 U/L (46-116); Anion Gap 4.4 mmol/L (3-11); BUN 16 mg/dL (7-18); Bilirubin, Total 0.34 mg/dL (0.2-1.0); CO2 31.6 mmol/L (21.0-32.0); Calcium 8.7 mg/dL (8.5-10.1); Chloride 107 mmol/L (98-107); Estimated GFR 78.49 (mL/min/1.73m2); Glucose 185 mg/dL (74-106); Potassium 4.1 mmol/L (3.5-5.1); Sodium 143 mmol/L (136-145); Total Protein 5.3 g/dL (6.4-8.2)
[2024-08-21 06:13] LABS: Vancomycin, Random 15.3 ug/mL
[2024-08-21 07:54] VITALS: BP 150/98; PULSE 90; RESP 18; TEMP 36.1; O2SAT 97
[2024-08-21] MEDS: Lactated Ringers 1,000 ML 125 ML IV (08:50)
[2024-08-21] MEDS: Montelukast 10 MG TAB PO (08:52)
[2024-08-21] MEDS: Aspirin E.C. 81 MG TABEC PO (08:52)
[2024-08-21] MEDS: Multivitamin w/Minerals TAB 1 TAB PO (08:53)
[2024-08-21] MEDS: Venlafaxine 75 MG CAPCR PO (08:53)
[2024-08-21] MEDS: buPROPion-CR 150 MG TABCR PO (08:53)
[2024-08-21] MEDS: Atorvastatin 10 MG TAB 20 MG PO (08:53)
[2024-08-21] MEDS: amLODIPine 2.5 MG TAB PO (08:53)
[2024-08-21] MEDS: Ascorbic Acid 500 MG TAB PO (08:53)
[2024-08-21] MEDS: Beta-Carotene(A) w/C,E, & Minerals TAB 1 TAB PO (08:53)
[2024-08-21] MEDS: Isosorbide Mononitrate 30 MG TABCR PO (08:53)
[2024-08-21] MEDS: Cholecalciferol (Vitamin D3) 1,000 UNIT TAB 1000 UNITS PO (08:53)
--- NOTE | 2024-08-21 09:56 | IN_ITS ---
PT Notes Visit Reasons: Pneumonia Physical Therapy Initial Evaluation Date: 08/21/2024 Referring Doctor: Dr. Douglas PT Orders: PT CONSULT: PT evaluation and treat Precautions: MRSA positive nares, monitor O2 saturation currently on room air during the day Patient Profile/Admitting Diagnosis: Patient is 73-year-old male presented to the ED from urgent care with ongoing productive cough, tachycardia and diaphoretic. Patient recently treated with antibiotics and steroids at home for community-acquired pneumonia and COPD exacerbation. Chest CT revealed positive T6, T7 and T12 mild compression fractures; positive groundglass opacities B UL and left lingular lobe, infiltrate RML, atelectasis RLL. Patient noted to be positive MRSA in nares and placed on contact precautions. Patient treated with IV fluids, IV antibiotic of vancomycin and Zosyn. Patient transferred to MedSurg unit for continued medical management. Patient now on room air with saturations greater than 95%. Oxygen will continue at night at this time with ongoing assessment by respiratory. PMHX: All Active Problems (Updated 08/20/24 @ 17:11 by Fara Garcia MD) Recurrent bacterial pneumonia (Acute) Respiratory failure (Acute) Pneumonia (Acute) Community acquired pneumonia (Acute) Compression fx, thoracic spine (Acute) Hypoxic respiratory failure (Acute) Discharge planning issues (Acute) Acute hypoxic respiratory failure (Acute) Wheezing on auscultation (Acute) Recurrent infections (Acute) Neuromuscular respiratory weakness (Acute) Diaphragm paralysis (Acute) Macular degeneration (Acute) Sacroiliac joint pain (Acute) Hip pain (Acute) Knee pain (Acute) Prediabetes (Acute) Dental infection (Acute) Skin lesion (Acute) COVID-19 virus infection (Acute) Nasal mucosa dry (Acute) Chronic cough (Acute) Basal cell carcinoma (Acute) Actinic keratosis (Acute) Ureterolithiasis (Acute) Coronary artery disease (Chronic) Chest pain (Acute) Wheezing (Acute) Nocturnal cough (Acute) SOB (shortness of breath) (Acute) Melena (Acute) Dysphagia (Acute) Strain of calf muscle (Acute 06/30/19) Leg hematoma (Acute 06/30/19) Tubular adenoma of colon (Chronic) GERD (gastroesophageal reflux disease) (Chronic) Xerostomia (Acute 08/17/13) Winged scapula of left side (Acute 04/09/16) Tendinitis of left rotator cuff (Acute 04/09/16) Rhinitis (Acute 08/31/13) Personal history of antineoplastic chemotherapy (Acute 10/14/17) 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) Epistaxis (Acute 10/14/17) Acute sinusitis (Acute 08/17/13) Medical History (Updated 08/20/24 @ 17:11 by Fara Garcia MD) Pneumonia BPH (benign prostatic hyperplasia) Rheumatoid arthritis (10/14/17) Sjogren syndrome, unspecified Actinic keratoses Tubular adenoma Other osteoporosis with current pathological fracture, vertebra(e), subsequent encounter for fracture with routine healing Hypertension Rosacea GERD (gastroesophageal reflux disease) Peripheral neuropathy Sicca syndrome Overweight History of partial colectomy Hypothyroidism Hyperlipidemia Dyspnea Depression Pulmonary hypertension Anxiety Pharyngeal disorder Polyarthralgia Steroid-induced osteoporosis Elevated hemidiaphragm Epistaxis Hx of ventral hernia repair Insomnia Rheumatoid arthritis Complicated grief Surgical History Stented coronary artery (~03/20/19) Hernia Repair, Incisional Colonoscopy - IV Sedation (~11/15/09) 09/30/2019 [facility] sessile repeat 3 yrs per [facility] noteColectomy Social History/Home Situation: Pt reports he lives in senior housing with no stairs. He states he has a handicap accessible bathroom with grab bars and elevated toilet height. Patient reports independence with ADLs ambulation without device, meal prep. He reports he is on 2.5 L of oxygen at home. Equipment Owned/DME: old cane Subjective:Pt reports he feels much better than he did yesterday. He stated the medicine in the IV must be working. Patient reports shortness of breath at home especially when walking uphill. He does not use oxygen outside the home at this time despite utilizing O2 within home. Objective: General Observation: pt presented seated with no supplemental oxygen and 2 IVs infusing Pt was performing self care without assistance. Mental Status: A+Ox4 , pleasant , cooperative motivated to participate in assessment Pain: knees and hips ache all the time, patient denies back pain at this time. ROM: Right Upper Extremity: WNL Left Upper Extremity: WNL Right Lower Extremity: WNL Left Lower Extremity: WNL Strength: Right Upper Extremity: 5/5 Left Upper Extremity: 5/5 with diminished grasp as compared to Right Right Lower Extremity: Hip flexion: 3+ /5; hip abduction: 3/5; hip extension:3+ /5; knee extension: 4 /5; knee flexion: 3+ /5 ankle DF: 4 /5 ; ankle PF: 4 /5 Left Lower Extremity: Hip flexion: 3+/5; hip abduction: 3 /5; hip extension: 3+ /5; knee extension: 4 /5; knee flexion: 3+ /5 ankle DF: 4 /5 ; ankle PF: 4/5 Sensation: intact light touch/deep pressure however reports slight numbness B vogt nd. Bed Mobility/Transfers: Supine to sit modified independent with increase time (+) dyspnea noted Sit to stand independent Stand to sit independent Bed to chair independent Gait: Patient ambulated 60 feet within room without assistive device supervision. Patient demonstrates increased lateral weight shift without device. Increased dyspnea on exertion as distance increased. Patient demons trates adequate foot clearance however as fatigues/increase ZEPEDA patient with reduced step height. Balance: [] Static Sitting: Normal Dynamic Sitting: Normal Static Standing: Normal Dynamic Standing: Good- Special Tests: 4 STAGE BALANCE TEST: Feet together __10__ seconds 1/2 Stance ____10___ seconds Tandom stance __3__seconds Single leg stance left__1__seconds, right__2__seconds Mobility Limitations Standardized Measure [facility] AM-PAC 6 clicks Basic Mobility Inpatient Short Form: Raw Score:23 CMS Score: 11.20% Informed Consent/Education: Patient instructed in purpose of PT consult.Pt educated on benefits of 4WW/rollator for energy conservation during functional mobility within the community Therapeutic Activity 75779 : functional mobility without AD simulating mobility within his home including bending reaching tasks for self care. Surface to surface instruction in breath control for pacing and reduction of Dyspnea with use of PLB and exhale on exertional tasks including sit to stand. Assessment: Patient is 73 yo male presents with clinical signs and symptoms consistent with current/admitting diagnoses that have resulted to mobility limitations, gait instability, generalized weakness, and impairment of motor control as demonstrated by the following impairment level findings: 1. Decreased strength to BLE major muscle groups proximal>distal 2. Impaired standing balance 3. impaired standing functional activity tolerance Impairments are contributing to the following functional limitations: 1. Inability to safely ambulate without assistive device 2. Increase completion time for mobility ADL performance 3. Increased fall risk Patient is assessed as a moderate complexity based on the following: History: 73-year-old male with impairment level findings, functional limitations, and past medical history as indicated above Examination: Demonstrable impairment in strength, balance, and mobility level with underlying impairments and functional limitations as documented above Presentation: evolving Decision Making: moderate Goals: 1. ambulate with LRD supervision 300 feet with standing rests as needed to ma intain saturation > 91% 2. independent with pacing , energy conservation and breath control including pursed lip breathing during functional tasks. 3. Independent home exercise program Plan of Care/Treatment Plan: 1-2x/day, 7 days/week x 1 week. Plan of care has been reviewed with the [employer] providing the service under Physical Therapy direction. Initiate Physical Therapy intervention for strengthening, bed mobility, transfers, gait, stairs, balance training, use of assistive device. DISCHARGE RECOMMENDATIONS: Home with HHPT and use of 4WW for energy conservation during community based activities. TREATMENT CODE/TIME: 84786, 55405/ [id number] Thank you for the opportunity to participate in the care of this patient. [facility]
[2024-08-21] MEDS: VANCOMYCIN/WATER (PEG) 750 MG/150 ML BAG 100 MG IV ×2 (10:21→21:16)
[2024-08-21 11:20] VITALS: O2SAT 93
--- NOTE | 2024-08-21 11:21 | RESPIRATORY ---
08/21/24 Pt states that he wears 2.5L baseline at home during the day and night from [facility]; pt states when he leaves the home he takes O2 with him but does not wear it unless he really feels he needs it.
[2024-08-21 12:07] VITALS: BP 131/84; PULSE 92; RESP 18; TEMP 36.6; O2SAT 96
--- NOTE | 2024-08-21 14:29 | INITIAL_ITS ---
Date of service: 08/21/24 Time of Service: 14:29 Care Management Initial Assmt Initial Assessment Reason for Hospitalization: Pneumonia Functional Status/Living Situation Patient Presentation: Wesly was sitting up in his chair when CM met with him. His brother, Leonardo was in the room visiting. Wesly stated that he is feeling much better today, and that per MD, he will likely be ready for discharge tomorrow. He stated that he is anxious to leave tomorrow, because he doesn't want to miss the light parade in [place], near where he lives, which is tomorrow night. He stated that his only concern is that he would benefit from more money for food. CM discussed options for receiving food in the community, including [employer] and food pantries. He stated that he is a picky eater, and really only likes meat and potatoes. CM sent a referral for [employer], which he was agreeable to, in order to discuss further options for support with food in the community. He reported that his brother lives next door, and his sister lives nearby, and they are both supportive. He is independent with ADL's at baseline, although PT is recommending a 4WW for ambulation, as he gets short of breath. CM submitted an order through [employer], which was accepted, but later cancelled by the vendor after speaking to the patient. CM will discuss alternatives for obtaining a 4WW in the community. CM will continue to follow. Town of Residence: [place] Resides with: Alone Natural Supports: Brother, Leonardo Sister, Marilu Employment Status: Retired Instrumental Activities of Daily Living (ADLs): Independent Medications Medication Management: No Issues/Barriers identified Advance Directives Advance Directives: Do you have an Advance Directive: N 02/21/23 10:39 AD On File at [facility]: N 02/21/23 10:39 Date Asked 08/20/24 08/20/24 15:10 AD Date Reviewed COLST On File at [facility] No 06/27/24 18:42 COLST Date Scanned Code Status Resuscitation Status Full Code Insurance Coverage/Financial Issues Insurance: [employer] Care Team Visit Care Team Role Provider Type Arelis Michele MD Primary Care Provider [facility] STAFF PHYSICIAN Lorenza Davis Other Providers OTHER Fara Garcia MD Emergency Provider [facility] STAFF PHYSICIAN Luke Douglas MD Admit Provider [facility] STAFF PHYSICIAN Attending Provider Discharge Potential Discharge Needs: PCP F/U Appt Anticipated Barriers to Discharge: None Identified Patient/Family Education Needs: Review discharge instructions, discuss Ask Me Three Transportation: Private vehicle Plan: Anticipate Wesly will return home once medically cleared. He will transport via private vehicle by family. He will follow up with his PCP and discharge plan of care. CM will continue to follow. PFSH All Active Problems Melanoma (Acute) Recurrent bacterial pneumonia (Acute) Respiratory failure (Acute) Pneumonia (Acute) Community acquired pneumonia (Acute) Compression fx, thoracic spine (Acute) Hypoxic respiratory failure (Acute) Discharge planning issues (Acute) Acute hypoxic respiratory failure (Acute) Wheezing on auscultation (Acute) Recurrent infections (Acute) Neuromuscular respiratory weakness (Acute) Diaphragm paralysis (Acute) Macular degeneration (Acute) Sacroiliac joint pain (Acute) Hip pain (Acute) Knee pain (Acute) Prediabetes (Acute) Dental infection (Acute) Skin lesion (Acute) COVID-19 virus infection (Acute) Nasal mucosa dry (Acute) Chronic cough (Acute) Basal cell carcinoma (Acute) Actinic keratosis (Acute) Ureterolithiasis (Acute) Coronary artery disease (Chronic) Chest pain (Acute) Wheezing (Acute) Nocturnal cough (Acute) SOB (shortness of breath) (Acute) Melena (Acute) Dysphagia (Acute) Strain of calf muscle (Acute 06/30/19) Leg hematoma (Acute 06/30/19) Tubular adenoma of colon (Chronic) GERD (gastroesophageal reflux disease) (Chronic) Xerostomia (Acute 08/17/13) Winged scapula of left side (Acute 04/09/16) Tendinitis of left rotator cuff (Acute 04/09/16) Rhinitis (Acute 08/31/13) Personal history of antineoplastic chemotherapy (Acute 10/14/17) 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) Epistaxis (Acute 10/14/17) Acute sinusitis (Acute 08/17/13) Medical History Pneumonia BPH (benign prostatic hyperplasia) Rheumatoid arthritis (10/14/17) Sjogren syndrome, unspecified Actinic keratoses Tubular adenoma Other osteoporosis with current pathological fracture, vertebra(e), subsequent encounter for fracture with routine healing Hypertension Rosacea GERD (gastroesophageal reflux disease) Peripheral neuropathy Sicca syndrome Overweight History of partial colectomy Hypothyroidism Hyperlipidemia Dyspnea Depression Pulmonary hypertension Anxiety Pharyngeal disorder Polyarthralgia Steroid-induced osteoporosis Elevated hemidiaphragm Epistaxis Hx of ventral hernia repair Insomnia Rheumatoid arthritis Complicated grief Surgical History Stented coronary artery (~03/20/19) Hernia Repair, Incisional Colonoscopy - IV Sedation (~11/15/09) 09/30/2019 [facility] sessile repeat 3 yrs per Violeta note Colectomy Social History Smoking/Tobacco Use Status: Never Smoking risk assessment performed?: Yes Alcohol Intake: never Drug use: Never Substance use type: does not use Housing: apartment What type of physical activity do you participate in: none Do you feel safe at home: Yes Do you feel safe in your relationship?: Yes SDOH(Care Management) Screening Will the Patient Participate in the Screening?: Yes Do you worry about having a steady place to live?: no In the past 12 months, have you had to go without electric, gas, oil or water in your home?: no Have you or anyone in your house had to go without enough food to eat?: no Has lack of transportation kept you from medical appointments or from doing things needed for daily living?: no Has anyone in your support network made you feel unsafe for any reason?: no
[2024-08-21 14:38] VITALS: BP 143/76; PULSE 102; RESP 18; TEMP 36.4; O2SAT 94
--- NOTE | 2024-08-21 15:30 | W.PM.PROGNOT ---
Date of Service Date of service: 08/21/24 Time of Service: 15:30 Assessment and Plan Assessment and plan (1) Neuromuscular respiratory weakness: Status: Acute Assessment and plan: Certainly attributing to his current respiratory issues will follow-up in the outpatient setting with pulmonology (2) Diaphragm paralysis: Status: Acute Assessment and plan: As above (3) Community acquired pneumonia: Status: Resolved Assessment and plan: Patient has had multiple contacts with the healthcare system recently in regards to pulmonology issues. Because of this we will start him on Vanco and Zosyn white blood and wound care consults 08/21/24 Will c/w vanc and zosyn. WBC has decreased to 9.68 from 14.68 yesterday. Sputum culture and blood cultures pending. Repeat labs in am (4) Melanoma: Status: Acute Assessment and plan: Patient states that he has an appointment for removal and would recommend doing this is soon as possible (5) Rheumatoid arthritis: Assessment and plan: It is old records there is mention of Rituxan but I do not see this is a current medication will monitor. This is important as this is a immunomodulators and can make his pneumonia is worse Subjective Subjective Interval history since last seen: Pt seen and examined in his room this am. Pt states that he does feel better. POC d/w pt as well as his brother who was at bedside. POC also d/w bedside nurse during MDR. Exam Narrative Exam Narrative: Head eyes ears nose and throat: Normocephalic atraumatic mucous membranes moist he does have a lesion on the tip of his nose approximately 1 cm with erythematous borders. Neck: No lymphadenopathy no JVD no thyromegaly Cardiovascular: Regular rate and rhythm no rubs gallops Pulmonary: improving exam since yesterday, mild rhonchi bilat. No amu and speaking in complete sentences Abdomen: Soft nontender nondistended bowel sounds active Extremities: No sinus clubbing or edema bilaterally Neurologic: Cranial nerves II through XII intact as tested reflexes in upper extremity normal as tested Psych: He is alert and orient x 3 no apparent distress General: 73-year-old gentleman appears her stated age no apparent distress Objective Last Vital Signs Temp 36.4 C L 08/21/24 14:38 Pulse 102 H 08/21/24 14:38 Resp 18 08/21/24 14:38 BP 143/76 H 08/21/24 14:38 Pulse Ox 94 08/21/24 14:38 Laboratory Results - last 24 hr 08/20/24 08/20/24 08/20/24 15:17 15:48 16:05 WBC 14.68 H RBC 4.97 Hgb 15.0 Hct 46.3 MCV 93 MCH 30.2 MCHC 32.4 RDW 16.1 H Plt Count 248 MPV 9.4 Immature Gran % 0.5 Neutrophils % 90.1 Lymphocytes % 4.7 Monocytes % 3.7 Eosinophils % 0.9 Basophils % 0.1 Nucleated RBC % 0.0 Absolute Neutrophils 13.23 H Absolute Lymphocytes 0.69 L Absolute Monocytes 0.54 Absolute Eosinophils 0.13 Absolute Basophils 0.01 PT 9.7 INR 1.0 VBG pH 7.37 VBG pCO2 60 H VBG pO2 27 VBG HCO3 35 H VBG Total CO2 31 H VBG O2 Saturation 50 VBG Base Excess 10 H VBG Lactate 1.4 Sodium Potassium Chloride Carbon Dioxide Anion Gap BUN Creatinine Est GFR (CKD-EPI 2020) Glucose Calcium Magnesium 1.8 Total Bilirubin AST ALT Alkaline Phosphatase Troponin I 10 Total Protein Albumin Procalcitonin < 0.10 Urine Color Urine Clarity Urine pH Ur Specific Nemours Urine Protein Urine Ketones Urine Blood Urine Nitrite Urine Bilirubin Urine Urobilinogen Ur Leukocyte Esterase Urine RBC Urine WBC Ur Epithelial Cells Urine Crystals Urine Bacteria Urine Casts Urine Mucus Urine Other Ur Culture Indicated? Urine Glucose Random Vancomycin COVID-19 Source Nasopharynx SARS-CoV-2 (PCR) Negative Influenza Type A (PCR) Negative Influenza Type B (PCR) Negative RSV (PCR) Negative MRSA (TEM-PCR) Positive A 08/20/24 08/20/24 08/20/24 16:18 16:20 18:18 WBC RBC Hgb Hct MCV MCH MCHC RDW Plt Count MPV Immature Gran % Neutrophils % Lymphocytes % Monocytes % Eosinophils % Basophils % Nucleated RBC % Absolute Neutrophils Absolute Lymphocytes Absolute Monocytes Absolute Eosinophils Absolute Basophils PT INR VBG pH VBG pCO2 VBG pO2 VBG HCO3 VBG Total CO2 VBG O2 Saturation VBG Base Excess VBG Lactate Sodium Potassium Chloride Carbon Dioxide Anion Gap BUN Creatinine Est GFR (CKD-EPI 2020) Glucose Calcium Magnesium Total Bilirubin AST ALT Alkaline Phosphatase Troponin I Cancelled Cancelled Total Protein Albumin Procalcitonin Urine Color Yellow Urine Clarity Clear Urine pH 7.0 Ur Specific Nemours 1.015 Urine Protein Negative Urine Ketones Negative Urine Blood Small H Urine Nitrite Negative Urine Bilirubin Negative Urine Urobilinogen 0.2 Ur Leukocyte Esterase Negative Urine RBC 5-10 H Urine WBC 0-2 Ur Epithelial Cells Rare Urine Crystals Rare Calcium Oxalate Urine Bacteria Rare Urine Casts Negative Urine Mucus Negative Urine Other Negative Ur Culture Indicated? No Urine Glucose Negative Random Vancomycin COVID-19 Source SARS-CoV-2 (PCR) Influenza Type A (PCR) Influenza Type B (PCR) RSV (PCR) MRSA (TEM-PCR) 08/21/24 05:25 WBC 9.68 RBC 4.27 L Hgb 12.8 L D Hct 39.1 L MCV 92 MCH 30.0 MCHC 32.7 RDW 15.8 H Plt Count 213 MPV 9.6 Immature Gran % 0.3 Neutrophils % 90.1 Lymphocytes % 8.3 Monocytes % 1.1 Eosinophils % 0.1 Basophils % 0.1 Nucleated RBC % 0.0 Absolute Neutrophils 8.72 H Absolute Lymphocytes 0.80 L Absolute Monocytes 0.11 Absolute Eosinophils 0.01 Absolute Basophils 0.01 PT INR VBG pH VBG pCO2 VBG pO2 VBG HCO3 VBG Total CO2 VBG O2 Saturation VBG Base Excess VBG Lactate Sodium 143 Potassium 4.1 Chloride 107 Carbon Dioxide 31.6 Anion Gap 4.4 BUN 16 Creatinine 1.0 Est GFR (CKD-EPI 2020) 78.49 Glucose 185 H Calcium 8.7 Magnesium Total Bilirubin 0.34 AST 12 L ALT 21 Alkaline Phosphatase 77 Troponin I Total Protein 5.3 L Albumin 2.4 L Procalcitonin Urine Color Urine Clarity Urine pH Ur Specific Nemours Urine Protein Urine Ketones Urine Blood Urine Nitrite Urine Bilirubin Urine Urobilinogen Ur Leukocyte Esterase Urine RBC Urine WBC Ur Epithelial Cells Urine Crystals Urine Bacteria Urine Casts Urine Mucus Urine Other Ur Culture Indicated? Urine Glucose Random Vancomycin 15.3 COVID-19 Source SARS-CoV-2 (PCR) Influenza Type A (PCR) Influenza Type B (PCR) RSV (PCR) MRSA (TEM-PCR) Time Spent with Patient Time Spent with Patient: 25-34 minutes Time was spent: preparing to see the patient(eg.review tests), obtaining and/or reviewing separately otained hiistory, ordering medications,tests, procedures, referring, communicating with other health personal care aide, indepentently interpreting results, counseling the patient and care coordination
--- NOTE | 2024-08-21 15:45 | CHAPLAIN ---
Wesly was up in the chair when I visited. He was cutting information about of the paper about the /[facility] [facility] hockey teams. 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 His brother was in to visit early and Wesly expects he'll be back later today. Wesly said he's had pneumonia eight times this year. I explained my role and offered support.
--- NOTE | 2024-08-21 16:32 | PT.INTREAT ---
PT Notes Visit Reasons: Pneumonia Date: 08/21/2024 PRECAUTIONS: MRSA positive nares, monitor O2 saturation currently on room air during the day SUBJECTIVE: Pt in recliner when approached for therapy this afternoon, pt just got done visiting with his brother, pt agreed to participating with therapy session OBJECTIVE: ? IV line on bilateral antecubital? PAIN: Denies VITALS: Monitored by nursing Therapeutic Activities 28233: Direct one-on-one instruction in dynamic activities to improve functional performance. ?? BED MOBILITY/TRANSFERS? Rolling L/R: supervision Supine-sit: supervision? Sit-supine: ?supervision? Sit-stand: ?SBA ? Stand-sit: ?SBA ? Bed-Chair:? SBA ? Chair-bed: SBA Provided skilled cues and instruction on performance and technique throughout. Gait Training 78701: Direct one-on-one instruction and skilled instruction in: Movement sequencing Turning and movement with proper form Provided verbal cues for equipment management and technique Provided instruction in gait pattern Patient education regarding pacing and breathing techniques to maximize activity tolerance? GAIT? Assistive Device: ?none ? Weight bearing: FWB Assist: SBA ? Distance:?? 300' (entire big loop)? Deviation: ? Slow avinash speed, low step height, short step length, WBOS ? STAIRS:? ? not performed? Therapeutic Exercises 51077: Direct one-on-one instruction in therapeutic exercises to develop strength, endurance, range of motion and flexibility. Exercises: Seated cervical AROM all planes [id number] each Seated Shoulder flexion [id number] Seated shoulder horizontal abduction [id number] Seated shoulder external rotation [id number] Standing static balance activity NBOS Standing static balance activity NBOS with EC Standing static balance activity tandem standing Standing static balance activity head turns Standing static balance activity head nods Standing dynamic balance activity doing turning CW/CCW, perturbation Provided skilled instruction in proper exercise performance Provided skilled manual cues to facilitate proper muscle recruitment and/or form: ASSESSMENT:?Pt had SOb with activity requiring seated rest break with deep breathing exercises to help with SOB. PLAN: Continue with balance training, global strengthening and general conditioning for improved safety, mobility and activity tolerance until pt is ready for DC. TREATMENT CODE/TIME: [id number] 30mins (3:55-4:25pm)
[2024-08-21] MEDS: Tamsulosin 0.4 MG CAPCR PO (20:31)
[2024-08-21] MEDS: Metoprolol CR 25 MG TABCR PO (20:32)
[2024-08-21] MEDS: Enoxaparin 40 MG/0.4 ML SYR SC (20:34)
[2024-08-21] MEDS: traZODone 50 MG TAB PO (21:25)
[2024-08-22] MEDS: PIPERACILLIN/TAZO 4.5 GM in Normal Saline 100 ML IVPB (02:15)
[2024-08-22] MEDS: Normal Saline Flush 10 ML SYR IVP ×3 (02:16→08:58)
[2024-08-22 03:01] VITALS: BP 149/91; PULSE 97; RESP 18; TEMP 36.4; O2SAT 93
[2024-08-22] MEDS: methylPREDNISolone SUCC 40 MG VIAL IVP (03:07)
[2024-08-22] MEDS: Levothyroxine 100 MCG TAB PO (05:39)
[2024-08-22 06:35] LABS: Abs Immature Grans 0.11 10^3/uL (0.0-0.06); Absolute Basophil Count 0.02 10^3/uL (0.0-0.2); Absolute Lymphocyte Count 1.01 10^3/uL (1.2-3.4); Basophils % 0.1 %; HCT 43.2 % (40.0-50.0); HGB 13.9 g/dL (13.5-17.5); Immature Grans % 0.6 %; Lymphocytes % 5.9 %; MCH 29.8 pg (27.0-33.0); MCHC 32.2 % (32.0-36.0); MCV 93 fL (80-95); MPV 9.8 fL (8.0-11.0); Monocytes % 2.2 %; Neutrophils % 91.2 %; Platelet Count 260 10^3/uL (130-400); RBC 4.67 10^6/uL (4.36-5.78); RDW 15.9 % (11.8-14.1); RDW-SD 53.7 fL; WBC 17.07 10^3/uL (4.4-10.8)
[2024-08-22 06:39] LABS: Absolute Monocyte Count 0.38 10^3/uL (0.1-0.8); Absolute Neutrophil Count 15.57 10^3/uL (1.2-6.7)
[2024-08-22 06:57] LABS: Vancomycin, Random 14.5 ug/mL
[2024-08-22 06:59] LABS: ALT 20 U/L (16-63); AST 12 U/L (15-37); Albumin 2.8 g/dL (3.4-5.0); Alkaline Phosphatase 79 U/L (46-116); BUN 25 mg/dL (7-18); Bilirubin, Total 0.45 mg/dL (0.2-1.0); CREATININE 1.3 mg/dL (0.70-1.30); Calcium 9.5 mg/dL (8.5-10.1); Chloride 108 mmol/L (98-107); Estimated GFR 57.29 (mL/min/1.73m2); Glucose 151 mg/dL (74-106); Potassium 4.1 mmol/L (3.5-5.1); Sodium 145 mmol/L (136-145); Total Protein 6.2 g/dL (6.4-8.2)
[2024-08-22 07:42] VITALS: BP 149/80; PULSE 89; RESP 18; TEMP 36.4; O2SAT 94
[2024-08-22] MEDS: Aspirin E.C. 81 MG TABEC PO (08:57)
[2024-08-22] MEDS: Cholecalciferol (Vitamin D3) 1,000 UNIT TAB 1000 UNITS PO (08:57)
[2024-08-22] MEDS: buPROPion-CR 150 MG TABCR PO (08:57)
[2024-08-22] MEDS: Ascorbic Acid 500 MG TAB PO (08:57)
[2024-08-22] MEDS: Atorvastatin 10 MG TAB 20 MG PO (08:57)
[2024-08-22] MEDS: amLODIPine 2.5 MG TAB PO (08:57)
[2024-08-22] MEDS: Beta-Carotene(A) w/C,E, & Minerals TAB 1 TAB PO (08:57)
[2024-08-22] MEDS: Venlafaxine 75 MG CAPCR PO (08:57)
[2024-08-22] MEDS: Multivitamin w/Minerals TAB 1 TAB PO (08:57)
[2024-08-22] MEDS: Isosorbide Mononitrate 30 MG TABCR PO (08:57)
[2024-08-22] MEDS: Montelukast 10 MG TAB PO (08:57)
[2024-08-22] MEDS: levoFLOXacin 500 MG, levoFLOXacin 250 MG 750 MG PO (09:03)
--- NOTE | 2024-08-22 09:15 | PDOC.HHF2F_ITS ---
Home Health Referral Home Health Orders Clinical synopsis of why skilled professionals are needed: COPD, CAP, Registered Nurse: Check all that apply Instruct on new or changed medication(s)/assess compliance: Ordered Physical Therapist: Check all that apply Increase strength & endurance for safe mobility at home: Ordered To design/establish home maintenance program: Ordered Fall reduction therapy program for patient with history of frequent falls: Ordered Home safety evaluation and teaching/gait training including stair management (if applicable): Ordered Better Breathing Program: Ordered Encounter Date and Reason: I certify that a FTF encounter for this patient was performed on August 22, 2024 and that such encounter was related to the primary reason the patient requires home health services. The encounter was conducted in the following manner: * By me as the certifying physician, JUKEBOX ROUTE DRIVER, PA or * By an inpatient physician, JUKEBOX ROUTE DRIVER or PA during an inpatient stay who communicated findings to me, Certification And Authentication I certify that I composed the above information based on my clinical judgment relating to this patient's medical condition and, if applicable, clinical findings communicated to me by the NPP or inpatient physician who performed the FTF encounter. Name of Provider that will be monitoring home health services: Arelis Michele
--- NOTE | 2024-08-22 09:15 | W.PM.DS.N ---
Date of service: 08/22/24 Time of Service: 09:15 DS: Diagnosis Discharge Diagnosis (1) Sepsis: Status: Acute (2) Neuromuscular respiratory weakness: Status: Acute (3) Diaphragm paralysis: Status: Acute (4) Community acquired pneumonia: Status: Acute (5) Melanoma: Status: Acute (6) Rheumatoid arthritis: Discharge Plan Disposition Patient Disposition: Home W/Home Health Services Condition: Good Discharge Details Reason For Visit: Pneumonia Admit Date/Time: 08/20/24 17:35 Admit Provider: Luke Douglas Attending Provider: Luke Douglas Primary Care Provider: Arelis Michele V Hospital Course Hospital Course: Patient presented with signs and symptoms that were ultimately determined to be secondary to a combination of COPD and sepsis community-acquired pneumonia. Patient met sepsis criteria on admission with a white blood cell count of 14, heart rate greater than 110, and source of infection being community-acquired pneumonia though he did not have any signs of endorgan damage. He was reportedly started on p.o. prednisone as an outpatient and should have been on p.o. Levaquin but this was not taken. He was on Vanco and Zosyn during hospitalization as well as steroids and had significant improvement in his symptoms and no longer requiring supplemental oxygen. Given that the patient experience significant improvement in his symptoms it was determined he was stable for discharge home and will continue p.o. Levaquin for additional 7 days. Home Meds and New Rx's Prescriptions: New levofloxacin 750 mg Tablet 750 mg PO QAM Qty: 7 0RF prednisone 20 mg tablet 40 mg PO DAILY 5 Days Qty: 10 0RF Continued albuterol sulfate 90 mcg/actuation HFA aerosol inhaler 2 puff inhalation QID PRN (Reason: shortness of breath or wheezing) Qty: 8.5 3RF bupropion HCl [Wellbutrin SR] 150 mg tablet sustained-release 12 hr 150 mg PO QAM isosorbide mononitrate 30 mg tablet extended release 24 hr 30 mg PO DAILY diclofenac sodium 3 % gel 1 applic TP TID PRN amlodipine 2.5 mg tablet 2.5 mg PO DAILY Qty: 90 3RF atorvastatin 10 mg tablet 20 mg PO DAILY multivitamin with minerals 1 EACH tablet 1 ea PO DAILY cholecalciferol (vitamin D3) 1,000 UNIT tablet 1,000 unit PO DAILY ascorbic acid (vitamin C) [Vitamin C] 500 MG tablet 500 mg PO DAILY albuterol sulfate 2.5 mg /3 mL (0.083 %) solution for nebulization 2.5 mg inhalation QID PRN (Reason: shortness of breath or wheezing) Qty: 180 6RF aspirin [Aspir-81] 81 MG tablet,delayed release (DR/EC) 81 mg PO DAILY nitroglycerin 0.4 mg Tablet, Sublingual 0.4 mg SUBLINGUAL ONCE metoprolol succinate 25 mg tablet extended release 24 hr 25 mg PO HS montelukast 10 mg tablet 10 mg PO DAILY Patient Comments: TAKE ONE TABLET BY MOUTH EVERY DAY levothyroxine 100 mcg tablet 100 mcg PO DAILY No Action PreserVision AREDS 4,296 mcg-226 mg-90 mg capsule 1 cap PO DAILY venlafaxine 75 mg capsule,extended release 24hr 75 mg PO DAILY Rx Instructions: taken with 150mg capsule trazodone 50 mg tablet 50 mg PO HS tamsulosin 0.4 mg capsule 0.4 mg PO HS Patient Comments: TAKE ONE CAPSULE BY MOUTH AT BEDTIME venlafaxine [Effexor XR] 150 mg Capsule,Extended Release 24hr 150 mg PO DAILY Discharge Instructions Instructions: Pneumonia, Adult (DC) Stand Alone Forms: Nursing Discharge Form Referrals: Arelis Michele MD [Primary Care Provider] - (Please call on Saturday to set up a follow up appointment with your PCP for within 1 to 2 weeks.) Activity:: Activity as Tolerated Equipment/Supplies:: No Equipment Needed Diet:: As Tolerated Discharge Orders Discharge Orders: Discharge Order (Routine); Ordered 08/22/24 Ordered By: Patrick River Discharge Data Discharge Date/Time-TO BE ENTERED AT DEPARTURE: 08/22/24 10:08 DS: Summary Time Spent with Patient providing and/or coordinating discharge services: Greater than 30 minutes Status at Discharge Functional status at discharge: independent ambulation Overall status at discharge: patient is back to baseline Mental Status: mental status grossly normal Speech and Movement: speech and movement normal Mood: congruent mood Affect: normal affect Quality:SDOH Health Related Social Needs: Health related social needs food insecurity(Z59.41) Health related social needs details [facility] and [facility] Counseling referral to [facility]. Exam Psych Mental Status: mental status grossly normal Speech and Movement: speech and movement normal Mood: congruent mood Affect: normal affect DS: Data Vitals/I&O Vitals and I&O: Vital Signs Temperature 97.5 F L 08/22/24 07:42 Temperature Source Tympanic 08/22/24 07:42 Pulse 89 08/22/24 07:42 Pulse Rhythm Regular 08/20/24 21:43 Pulse 111 H 08/20/24 18:31 Respiratory Rate 18 08/22/24 07:42 Respiratory Effort Normal, Non-Labored 08/20/24 21:43 Respiratory Depth Normal 08/20/24 21:43 Respiratory Pattern Normal 08/20/24 21:43 Blood Pressure 149/80 H 08/22/24 07:42 Blood Pressure Mean 90 08/20/24 18:31 Blood Pressure Position Sitting 08/20/24 15:10 Pulse Oximetry 94 08/22/24 07:42 Oxygen Delivery Method Room Air 08/22/24 07:42 Oxygen Flow Rate 0 08/22/24 07:42 Pain Level 0 08/21/24 03:25 Comment RN Notified 08/22/24 03:01 Intake & Output 08/21/24 08/22/24 08/22/24 17:59 05:59 17:59 Intake Total 1621.75 / 1621.75 510 / 2131.75 Balance 1621.75 / 1621.75 510 / 2131.75 Intake: IV 1221.75 / 1221.75 210 / 1431.75 Oral 400 / 400 300 / 700 Other: Comment per pt voided x1 voids independently per pt voided x1 Data Completed and Pending Labs on day of discharge: Labs from last 24 hours 08/22/24 05:50 WBC 17.07 H RBC 4.67 Hgb 13.9 Hct 43.2 MCV 93 MCH 29.8 MCHC 32.2 RDW 15.9 H Plt Count 260 MPV 9.8 Immature Gran % 0.6 Neutrophils % 91.2 Lymphocytes % 5.9 Monocytes % 2.2 Eosinophils % 0.0 Basophils % 0.1 Nucleated RBC % 0.0 Absolute Neutrophils 15.57 H Absolute Lymphocytes 1.01 L Absolute Monocytes 0.38 Absolute Eosinophils 0.00 Absolute Basophils 0.02 Sodium 145 Potassium 4.1 Chloride 108 H Carbon Dioxide 30.0 Anion Gap 7.0 BUN 25 H Creatinine 1.3 Est GFR (CKD-EPI 2020) 57.29 Glucose 151 H Calcium 9.5 Total Bilirubin 0.45 AST 12 L ALT 20 Alkaline Phosphatase 79 Total Protein 6.2 L Albumin 2.8 L Random Vancomycin 14.5 Preliminary micro results at discharge 08/20/24 16:05 Blood Culture - Preliminary Blood Gram Positive Cocci 08/20/24 16:05 Sputum Culture - Preliminary Sputum Normal Anita 08/20/24 15:48 Blood Culture - Preliminary Blood NO GROWTH 24 HOURS PFSH All Active Problems (Updated 08/22/24 @ 11:24 by Patrick River MD) Sepsis (Acute) Melanoma (Acute) Recurrent bacterial pneumonia (Acute) Respiratory failure (Acute) Pneumonia (Acute) Community acquired pneumonia (Acute) Compression fx, thoracic spine (Acute) Hypoxic respiratory failure (Acute) Discharge planning issues (Acute) Acute hypoxic respiratory failure (Acute) Wheezing on auscultation (Acute) Recurrent infections (Acute) Neuromuscular respiratory weakness (Acute) Diaphragm paralysis (Acute) Macular degeneration (Acute) Sacroiliac joint pain (Acute) Hip pain (Acute) Knee pain (Acute) Prediabetes (Acute) Dental infection (Acute) Skin lesion (Acute) COVID-19 virus infection (Acute) Nasal mucosa dry (Acute) Chronic cough (Acute) Basal cell carcinoma (Acute) Actinic keratosis (Acute) Ureterolithiasis (Acute) Coronary artery disease (Chronic) Chest pain (Acute) Wheezing (Acute) Nocturnal cough (Acute) SOB (shortness of breath) (Acute) Melena (Acute) Dysphagia (Acute) Strain of calf muscle (Acute 06/30/19) Leg hematoma (Acute 06/30/19) Tubular adenoma of colon (Chronic) GERD (gastroesophageal reflux disease) (Chronic) Xerostomia (Acute 08/17/13) Winged scapula of left side (Acute 04/09/16) Tendinitis of left rotator cuff (Acute 04/09/16) Rhinitis (Acute 08/31/13) Personal history of antineoplastic chemotherapy (Acute 10/14/17) 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) Epistaxis (Acute 10/14/17) Acute sinusitis (Acute 08/17/13) Medical History Pneumonia BPH (benign prostatic hyperplasia) Rheumatoid arthritis (10/14/17) Sjogren syndrome, unspecified Actinic keratoses Tubular adenoma Other osteoporosis with current pathological fracture, vertebra(e), subsequent encounter for fracture with routine healing Hypertension Rosacea GERD (gastroesophageal reflux disease) Peripheral neuropathy Sicca syndrome Overweight History of partial colectomy Hypothyroidism Hyperlipidemia Dyspnea Depression Pulmonary hypertension Anxiety Pharyngeal disorder Polyarthralgia Steroid-induced osteoporosis Elevated hemidiaphragm Epistaxis Hx of ventral hernia repair Insomnia Rheumatoid arthritis Complicated grief Surgical History Stented coronary artery (~03/20/19) Hernia Repair, Incisional Colonoscopy - IV Sedation (~11/15/09) 09/30/2019 [facility] repeat 3 yrs per Violeta note Colectomy Social History Smoking/Tobacco Use Status: Never Smoking risk assessment performed?: Yes Alcohol Intake: never Drug use: Never Substance use type: does not use Housing: apartment What type of physical activity do you participate in: none Do you feel safe at home: Yes Do you feel safe in your relationship?: Yes Time Spent with Patient Time Spent with Patient: <45 minutes Time was spent: preparing to see the patient(eg.review tests), obtaining and/or reviewing separately otained hiistory, ordering medications,tests, procedures, referring, communicating with other health doggy daycare activities director, indepentently interpreting results, counseling the patient and care coordination
--- NOTE | 2024-08-22 09:35 | CMDISCH_ITS ---
Date of service: 08/22/24 Time of Service: 09:35 LACE Index Scoring Tool Questions: Length of Stay (in days): 2 Was the patient admitted via the E.D.?: Yes Comorbidities: Chronic Pulmonary Disease E.D. Visits: 3 Answers: Total Score: 10 Risk of Readmission: High Risk Care Management Discharge Plan Reason for Hospitalization: pneumonia Discharge Plan: Wesly is discharged today with new orders for oral antibiotics and a short prednisone course. He has new orders for HH RN and PT. PT to include the better breathing program. Referral was sent by to [employer] for support with finances. Wesly will drive himself home today. He will follow up with his PCP and continue per his plan of care. Patient/Family Education Needs: Review of discharge instructions, activity, limitations, plan of care and discuss ask me 3. SDOH Health Related Social Needs: Health related social needs food insecurity(Z59.41) Health related social needs details [facility] and [facility] unseling referral to [facility].
--- NOTE | 2024-08-22 10:11 | PT.INNT ---
PT Notes Visit Reasons: Pneumonia Pt was discharged this am.
== END 2024-08-22 10:08 | disposition home health service (06) | DRG 871 ==
LOC: ER 18:04 → MS 18:40
PROVIDERS: Admitting Provider Hospitalist; Emergency Provider Emergency Medicine; PCP Family Medicine; Visit Provider Hospitalist
DX: J15.9 Unspecified bacterial pneumonia; J44.0 Chronic obstructive pulmonary disease with (acute) lower respiratory infection; A41.9 Sepsis, unspecified organism; M48.54XA Collapsed vertebra, not elsewhere classified, thoracic region, initial encounter for fracture; I25.10 Atherosclerotic heart disease of native coronary artery without angina pectoris; K21.9 Gastro-esophageal reflux disease without esophagitis; J98.6 Disorders of diaphragm; R73.03 Prediabetes; Z99.81 Dependence on supplemental oxygen; G54.5 Neuralgic amyotrophy; I10 Essential (primary) hypertension; K11.7 Disturbances of salivary secretion; N40.0 Benign prostatic hyperplasia without lower urinary tract symptoms; M35.00 Sjogren syndrome, unspecified; G62.9 Polyneuropathy, unspecified; E03.9 Hypothyroidism, unspecified; E78.5 Hyperlipidemia, unspecified; Z90.49 Acquired absence of other specified parts of digestive tract; Z95.5 Presence of coronary angioplasty implant and graft; Z79.69 Long term (current) use of other immunomodulators and immunosuppressants; C43.31 Malignant melanoma of nose; J98.8 Other specified respiratory disorders
CPT/HCPCS: 00123; 36415; 71275; 80053; 82805; 84145; 87040; 87077; 87637; 87641; 93005; 96365; 97116; 97162; 97530; 99285; J1650; 80202; 81003; 81015; 83605; 83735; 84484; 85025; 85610; 87070; 87186; 87205; 93010; 99222; 99231; 99239; J0456; J0696; J2543; J2919; J3370; J3372; J3490

== ENCOUNTER → 2024-08-31 09:59 | Outpatient (BNVA) | payer OTHER, SELFPAY | PROVIDERS: PCP Family Medicine; Referring Provider Family Medicine; Visit Provider Physician Assistant Surgical | DX: R05.3 Chronic cough (principal); I50.9 Heart failure, unspecified; J98.6 Disorders of diaphragm; M06.9 Rheumatoid arthritis, unspecified; G70.9 Myoneural disorder, unspecified; J99 Respiratory disorders in diseases classified elsewhere | CPT/HCPCS: 36415; 99214 ==

== ENCOUNTER 2024-08-31 17:55 | Outpatient (REF) | payer OTHER, SELFPAY ==
[2024-08-31 11:23] LABS: Abs Immature Grans 0.08 10^3/uL (0.0-0.06); Absolute Basophil Count 0.04 10^3/uL (0.0-0.2); Absolute Eosinophil Count 0.48 10^3/uL (0.0-0.7); Basophils % 0.3 %; Eosinophils % 3.6 %; HCT 48.4 % (40.0-50.0); HGB 15.1 g/dL (13.5-17.5); Immature Grans % 0.6 %; Lymphocytes % 15.9 %; MCH 29.4 pg (27.0-33.0); MCHC 31.2 % (32.0-36.0); MCV 94 fL (80-95); MPV 9.6 fL (8.0-11.0); Monocytes % 5.2 %; Neutrophils % 74.4 %; Platelet Count 217 10^3/uL (130-400); RBC 5.14 10^6/uL (4.36-5.78); RDW 15.9 % (11.8-14.1); RDW-SD 55.6 fL; WBC 13.37 10^3/uL (4.4-10.8)
[2024-08-31 11:24] LABS: Absolute Lymphocyte Count 2.13 10^3/uL (1.2-3.4); Absolute Neutrophil Count 9.95 10^3/uL (1.2-6.7)
[2024-08-31 12:18] LABS: ALT 26 U/L (16-63); AST 15 U/L (15-37); Alkaline Phosphatase 94 U/L (46-116); Anion Gap 4.5 mmol/L (3-11); BUN 13 mg/dL (7-18); Bilirubin, Total 0.39 mg/dL (0.2-1.0); CO2 35.5 mmol/L (21.0-32.0); CREATININE 1.2 mg/dL (0.70-1.30); Calcium 9.9 mg/dL (8.5-10.1); Chloride 104 mmol/L (98-107); Estimated GFR 63.07 (mL/min/1.73m2); Glucose 101 mg/dL (74-106); NT-proBNP 69 pg/mL (<300); Potassium 4.7 mmol/L (3.5-5.1); Sodium 144 mmol/L (136-145); Total Protein 5.6 g/dL (6.4-8.2)
== END 2024-08-31 17:56 | disposition home or self-care (01) ==
LOC: LBN 17:55
PROVIDERS: PCP Family Medicine; Visit Provider Physician Assistant Surgical
DX: J18.9 Pneumonia, unspecified organism (principal); B99.9 Unspecified infectious disease; I50.9 Heart failure, unspecified
CPT/HCPCS: 80053; 83880; 85025

== ENCOUNTER 2024-09-23 00:52 | Outpatient (CLI) | payer MEDICARE, SELFPAY ==
--- NOTE | 2024-09-23 | DI.RAD_ITS ---
Exam(s) XR CHEST 2V PA LATERAL EXAM: XR CHEST 2V PA LATERAL CLINICAL HISTORY: DYSPNEA,R06.00, F/U PNEUMONIA. TECHNIQUE: 2D digital imaging was performed. COMPARISON: CR XR CHEST 2V PA LATERAL from 08/04/[address] CHEST PE CTA from 08/20/2024 FINDINGS: 2 views: Heart size is upper normal. The mediastinum is not widened. Elevated right hemidiaphragm again noted. There is atelectasis and some mild infiltrate in the right lung above the elevated hemidiaphragm. Le ft lung is clear. No obvious pleural effusions. IMPRESSION: Persistent right lung base atelectasis and infiltrate adjacent elevated right hemidiaphragm. No radi ographic improvement compared to 08/04/2024. DATA REPOSITORY: RADIATION DOSE DELIVERED:
== END 2024-09-23 01:12 ==
LOC: DI 00:52
PROVIDERS: PCP Family Medicine; Visit Provider Family Medicine
DX: R91.8 Other nonspecific abnormal finding of lung field (principal)
CPT/HCPCS: 71046

== ENCOUNTER → 2024-10-20 11:35 | Outpatient (BNVA) | payer MEDICARE, SELFPAY | PROVIDERS: PCP Family Medicine; Referring Provider Family Medicine; Visit Provider Physician Assistant Surgical | DX: J98.6 Disorders of diaphragm (principal); R05.3 Chronic cough; M06.9 Rheumatoid arthritis, unspecified; G70.9 Myoneural disorder, unspecified; J99 Respiratory disorders in diseases classified elsewhere; B99.9 Unspecified infectious disease; J47.9 Bronchiectasis, uncomplicated | CPT/HCPCS: 99214 ==

== ENCOUNTER 2024-12-30 00:47 | Outpatient (CLI) | payer MEDICARE, SELFPAY ==
--- NOTE | 2024-12-30 14:30 | DI.US_ITS ---
APPROVED REPORT EXAM: Comprehensive 2D, Doppler, and color-flow Echocardiogram Patient Location: Out-Patient Back Order Clerk: Isma Guajardo RDCS (AE) Indications: Pulmonary hypertension, heart failure Other Information Study Quality: Poor. Technically limited study due to body habitus. Conclusion Suboptimal study Normal left ventricular wall thickness and chamber size. Ejection fraction is approximately 50%. Se ptal motion is somewhat paradoxic Normal right ventricular size and function Both atria are normal in size Aortic valve is sclerotic and trileaflet with trace regurgitation Mild mitral annular calcification Right ventricular systolic pressure could not be estimated Wall motion Left Ventricle The left ventricle is normal size. Left ventricular systolic function is borderline. There is normal left ventricular wall thickness. Septal motion is somewhat paradoxic There is no ventricular septal d efect visualized. LVEF is 50%. Right Ventricle The right ventricle is normal size. The right ventricular systolic function is normal. Atria The left atrium size is normal. The right atrium size is normal. The interatrial septum is intact wit h no evidence for an atrial septal defect. Aortic Valve The aortic valve is sclerotic. Aortic valve is trileaflet. There is no aortic valvular stenosis. Trac e aortic regurgitation Mitral Valve Mild mitral annular calcification. No evidence of mitral valve stenosis. There is no mitral valve reg urgitation noted. Tricuspid Valve The tricuspid valve is normal in structure. There is no tricuspid valve stenosis. Trace tricuspid reg urgitation. Pulmonic Valve The pulmonary valve is normal in structure. There is no pulmonic valvular stenosis. There is no pulmo nikita valvular regurgitation. Great Vessels The aortic root is normal in size. The ascending aorta is normal in size. IVC is normal in size and c ollapses >50% with inspiration. Pericardium There is no pericardial effusion. 2D Dimensions IVSD d PLAX 1.06 cm M: 0.6-1.2 Ao Root d 3.52 cm M: 3.1 - 3.7 LVPW d PLAX 1.09 cm M: 0.6 - 1.2 Ao Asc Diam d 3.34 cm M: 2.6 - 3.4 LVID d PLAX 4.33 cm M: 4.2 - 5.8 LVDs 3.34 cm M: 2.5 - 4.0 LV EF Teichholz 46.3 % FS 22.94 % LV EDV (Teich) 84.5 mL LV ESV (Teich) 45.4 mL Stroke Vol Index (Teich) 18.64 M-Mode TAPSE 1.73 cm (M/F) >1.7 LV Volumes - Method of Disks (Montano's) Single Plane 2D LV Volumes Biplane 2D LV Volumes LV EDV A4C 92.5 mL LV EDV BP 95.01 mL M: 62 - 150 LV ESV A4C 47.7 mL LV ESV BP 50.4 mL LVEF(%) A4C 48.5 % LVEF(%) BP 46.97 % M: 52 - 72 LV EDV A2C 84.0 mL LV EDV BP Index 45.24 mL/m2 M: 34 - 74 LV ESV A2C 46.4 mL SV BP LVEF(%) A2C 44.7 % SV Index LA Volume LA Length A4C 4.6 cm LA Length A2C 5.1 cm LA Area A4C s 9.70 cm2 LA Area A2C s 15.92 cm2 LA Vol A4C A-L 17.25 mL LA Vol A2C A-L 41.91 mL LA Vol Biplane A-L 28.3 mL LA Vol/BSA A4C A-L LA Vol/BSA A2C A-L LA Vol/BSA BP A-L 13.5 mL/m2 LA Vol A4C MOD 18.4 mL LA Vol A2C MOD 40.3 mL LA Vol BP MOD 27.7 mL LV Diastology MV E' medial 0.071 (>0.07 m/s) MV E Vmax 0.65 (0.4-1.3 m/s) MV E/E' MED 9.18 (<14) MV A Vmax 0.95 (0.4-1.3 m/s) MV E' lateral 0.124 (>0.1 m/s) E/A Ratio 0.7 MV E/E' LAT 5.27 (<14) MV E' Average 0.097 m/s MV E/E'(average) 6.69 Aortic Valve AoV Vmax 1.40 m/s LVOT Vmax 0.96 m/s AoV Peak Grad 7.9 mmHg LVOT Peak Grad 3.7 mmHg AoV Area (Vmax) 2.63 cm2 LVOT VTI 0.157 m AoV VTI 0.283 m LVOT Mean Grad 2.5 mmHg AoV Mean Jamel. 1.05 m/s LVOT SV 60.29 mL AoV Mean Grad 5.0 mmHg LVOT Diam s 2.20 cm AoV Area (VTI) 2.13 cm2 AV Regurg Peak Gr. 7.89 mmHg Velocity Ratio 0.69 Pulmonary Valve PV Vmax 1.07 (0.5-1.5 m/s) RVOT Vmax 0.74 m/s PV Peak Grad 4.6 mmHg RVOT Peak Gr. 2.2 mmHg PV Mean Jamel 0.82 m/s RVOT VTI 0.136 m PV Mean Grad 2.8 mmHg RVOT Mean Gr. 1.1 mmHg
== END 2024-12-30 01:07 ==
LOC: DI 00:47
PROVIDERS: PCP Family Medicine; Visit Provider Internal Medicine Cardiovascular Disease
DX: I50.9 Heart failure, unspecified (principal); I35.1 Nonrheumatic aortic (valve) insufficiency
CPT/HCPCS: 93306

== ENCOUNTER 2025-03-25 16:06 | Outpatient (REF) | payer MEDICARE, SELFPAY ==
[2025-03-26 09:36] LABS: HCT 45.7 % (40.0-50.0); HGB 14.7 g/dL (13.5-17.5); MCH 29.1 pg (27.0-33.0); MCHC 32.2 % (32.0-36.0); MCV 90 fL (80-95); MPV 10.4 fL (8.0-11.0); Platelet Count 241 10^3/uL (130-400); RBC 5.06 10^6/uL (4.36-5.78); RDW 14.6 % (11.8-14.1); RDW-SD 47.8 fL; WBC 10.51 10^3/uL (4.4-10.8)
[2025-03-26 09:54] LABS: Hemoglobin A1C 5.7 % (<5.7)
[2025-03-26 09:57] LABS: ALT 23 U/L (16-63); AST 17 U/L (15-37); Albumin 3.4 g/dL (3.4-5.0); Alkaline Phosphatase 76 U/L (46-116); Anion Gap 7.3 mmol/L (3-11); BUN 17 mg/dL (7-18); Bilirubin, Total 0.5 mg/dL (0.2-1.0); CO2 31.7 mmol/L (21.0-32.0); Calcium 9.0 mg/dL (8.5-10.1); Chloride 106 mmol/L (98-107); Estimated GFR 78.00 (mL/min/1.73m2); Glucose 113 mg/dL (74-106); Potassium 3.4 mmol/L (3.5-5.1); Sodium 145 mmol/L (136-145); TSH (W/Ref FT4) 0.19 uIU/mL (0.36-3.74); Total Protein 5.8 g/dL (6.4-8.2)
== END 2025-03-25 16:07 | disposition home or self-care (01) ==
LOC: NCHCN 16:06
PROVIDERS: PCP Family Medicine; Visit Provider Family Medicine
DX: R73.03 Prediabetes (principal); I10 Essential (primary) hypertension; E03.9 Hypothyroidism, unspecified; Z13.0 Encounter for screening for diseases of the blood and blood-forming organs and certain disorders involving the immune mechanism
CPT/HCPCS: 80053; 85027; 83036; 84439; 84443

== ENCOUNTER 2025-05-15 14:44 | Outpatient (CLI) | payer MEDICARE, SELFPAY ==
--- NOTE | 2025-05-15 14:54 | DI.RAD_ITS ---
Exam(s) XR CHEST 2V PA LATERAL EXAM: XR CHEST 2V PA LATERAL CLINICAL HISTORY: eval pathology. TECHNIQUE: 2D digital imaging was performed. COMPARISON: CT CT CHEST PE CTA from 08/20/2024 CR XR CHEST 2V PA LATERAL from 09/23/2024 FINDINGS: 2 views: Heart size is upper normal and the mediastinum is not widened. Elevated right hemidiaphragm is again noted. No new significant left lung findings. In the right lung the amount of atelectasis in the right middle lobe has decreased. No obvious pleural effusions. No pulmonary edema. IMPRESSION: Persistent elevated right hemidiaphragm but less prominent atelectasis in the right lung base when compared to prior images of 09/23/2024.Opposite-left lung remains clear. DATA REPOSITORY: RADIATION DOSE DELIVERED:
== END 2025-05-15 15:04 ==
LOC: DI 14:45
PROVIDERS: PCP Family Medicine; Visit Provider Nurse Practitioner Family
DX: R05.9 Cough, unspecified (principal); J98.11 Atelectasis
CPT/HCPCS: 71046

== ENCOUNTER → 2025-07-07 14:47 | Outpatient (CLI) | payer MEDICARE, SELFPAY ==
--- NOTE | 2025-07-07 15:45 | DI.RAD_ITS ---
Exam(s) XR THORACIC SPINE COMPLETE EXAM: XR THORACIC SPINE COMPLETE CLINICAL HISTORY: back pain, thoracic r/o compression fracture M54.9. TECHNIQUE: 2D digital imaging was performed. COMPARISON: CR XR THORACIC SPINE COMPLETE from 06/16/[address] CHEST PE CTA from 06/27/2024 CR XR CHEST 2V PA LATERAL from 08/04/[address] CHEST PE CTA from 08/20/2024 FINDINGS: 3 views There is mild compression fracture of T7 again noted. There is also some height loss of the T6 vertebra now evident which was not evident on CT scan 06/27/2024 but appears unchanged from lateral chest x-ray of 08/04/2024. There is also compression fracture of T12 evident. This was evident on CT scan of 08/20/2024 and appears to have slightly progressed. Incidentally noted is significant elevation the right hemidiaphragm which is not a new finding and was evident on CT scan of 08/20/2024. IMPRESSION: Compression fractures of T6, T7, and T12 as described above. DATA REPOSITORY: RADIATION DOSE DELIVERED:
--- NOTE | 2025-07-07 17:02 | DI.VRAD_ITS ---
PROCEDURE INFORMATION: Exam: XR Thoracic Spine Exam date and time: 07/07/2025 4:16 PM Age: 74 years old Clinical indication: Other: Back pain, thoracic R/O compression fracture; Dorsalgia TECHNIQUE: Imaging protocol: Radiologic exam of the thoracic spine. Views: 3 views. COMPARISON: CR XR THORACIC SPINE COMPLETE 16/06/2024 14:08 FINDINGS: Limitations: Unable to accurately labeled the thoracic vertebra. Bones/joints: Multilevel degenerative scoliotic changes of the spine. Anterior wedge compression deformities of several midthoracic vertebra and a lower thoracic vertebra versus upper lumbar vertebra. Exact numbering of the vertebrae is limited. Decreased bone mineralization. Soft tissues: Unremarkable. Diaphragm: Asymmetric elevation of the right hemidiaphragm. Heart/Mediastinum: Cardiomegaly. Vasculature: Atherosclerotic disease. IMPRESSION: 1. Multilevel degenerative scoliotic changes of the spine. Compression deformity of midthoracic and lower thoracic vertebra versus upper lumbar vertebra. Limitations as discussed above. Recommend CT or MRI of the lumbar spine for further evaluation. 2. Asymmetric elevation of the right hemidiaphragm. 3. Cardiomegaly. Atherosclerotic disease. Dictated and Authenticated by: Aruora Chairez MD. Orderin Ebenezer Batista MD
== END ==
LOC: DI 08-03 14:47
PROVIDERS: PCP Family Medicine; Visit Provider Physician Assistant
DX: M54.9 Dorsalgia, unspecified (principal)
CPT/HCPCS: 72072

== ENCOUNTER → 2025-08-10 10:37 | Outpatient (BNVA) | payer MEDICARE, SELFPAY | PROVIDERS: PCP Family Medicine; Referring Provider Family Medicine; Visit Provider Internal Medicine Cardiovascular Disease | DX: I25.10 Atherosclerotic heart disease of native coronary artery without angina pectoris (principal) | CPT/HCPCS: 99213 ==

== ENCOUNTER 2025-08-12 08:47 | Emergency (ER) | payer MEDICARE, SELFPAY ==
[2025-08-12] VITALS (14 sets, daily range): BP systolic 118–154; BP diastolic 68–83; PULSE 93–116; RESP 13–26; TEMP 36.6–36.9; O2SAT 94–98
--- NOTE | 2025-08-12 09:30 | DI.CT_ITS ---
Exam(s) CT CHEST PE ABD PELVIS W EXAM: CT CHEST PE ABD PELVIS W CLINICAL HISTORY: tachycardia, tachypnea, gross hematuria, dysuria. TECHNIQUE: Imaging Protocol: Axial computed tomography images with coronal and sagittal reformatted images were created and reviewed. Computer aided detection (CAD) was utilized. CONTRAST MATERIAL: Intravenous: Omnipaque 350 Contrast volume:100 ml Oral: no COMPARISON: CT CT RENAL COLIC WO from 03/07/[address] CHEST PE CTA from 08/20/2024 CR,XR XR THORACIC SPINE COMPLETE from 07/07/2025 FINDINGS: CHEST: Pulmonary parenchyma: Right basilar atelectasis. No consolidation. No dominant measurable mass. Tracheobronchial tree: No bronchiectasis. No mucous plugging.No bronchial wall thickening. Pleura: No effusion or pneumothorax. Mediastinum: Within normal limits. Pulmonary arteries: No visible emboli. Cardiovascular: Normal heart size. Coronary artery calcifications. No pericardial effusion. Thoracic aorta non-dilated. Bones: Stable compression fractures of T6, T7 and T12 no lytic or blastic lesions. No new compression fractures. Soft tissues: Unremarkable. ABDOMEN and PELVIS: Liver: Normal density. No suspicious mass. Gallbladder and biliary tract: No evidence of stones or wall thickening. No biliary dilatation. Pancreas: Somewhat atrophic. No abnormal calcifications or inflammatory process. Spleen: Normal. Kidneys: Normal size, contour and axis. No radiodense stones. No obstructive uropathy. Stable renal cysts. No suspicious masses seen. Adrenal glands: No masses seen. Aorta: Abdominal portion non-dilated. Lymph nodes: Within normal limits. Soft tissues: Wide necked bilateral inguinal hernias containing nonobstructed loops bowel. Bladder: Diffusely thick walled. There are several bilateral bladder diverticula. The prostate impresses on the base of the bladder. No discrete bladder mass. No visible calcifications. Bowel: No obstruction or bowel wall thickening. The appendix is normal. Normal quantity of stool. Peritoneal cavity: No ascites. No focal collection. No mesenteric inflammatory response. No free air. Bones: Unremarkable for age. Reproductive organs: the prostate is enlarged. There is a superior nodule projects projecting into the base of the bladder. IMPRESSION: No acute abnormality in the chest, abdomen or pelvis. No evidence of pulmonary emboli. Enlarged prostate which impresses upon the base of the bladder. There is diffuse bladder wall thickening as well as bladder diverticula. No bladder calculi or focal mass is visible. No renal calculi or hydronephrosis. Bilateral inguinal hernias containing a small portion of nonobstructed bowel. RADIATION DOSE DELIVERED: Total DLP DATA REPOSITORY: All CT scans at this facility are submitted to the National Radiology Data Registry (NRDR) Dose Index Registry (DIR) with the [employer] (ACR). RADIATION OPTIMIZATION: All CT scans at this facility use at least one of these dose optimization techniques: automated exposure control; mA and/or kV adjustment per patient size (includes targeted exams where dose is matched to clinical indication); or iterative reconstruction.
--- NOTE | 2025-08-12 09:32 | W.ED.GENAD ---
Discharge Plan Disposition Patient Disposition: Home Condition: Stable Discharge Details Clinical Impression: Acute UTI, Gross hematuria Primary Care Provider: Arelis Michele V ED Provider: Fara Garcia Home Meds and New Rx's Prescriptions: New cefpodoxime 200 mg tablet 200 mg PO BID 9 Days Qty: 18 0RF Rx Instructions: must administer with a meal/food No Action PreserVision AREDS 4,296 mcg-226 mg-90 mg capsule 1 cap PO DAILY albuterol sulfate 90 mcg/actuation HFA aerosol inhaler 2 puff inhalation QID PRN (Reason: shortness of breath or wheezing) Qty: 8.5 3RF cyclobenzaprine 5 mg tablet 5 mg PO QHS PRN (Reason: muscle spasm) Qty: 5 0RF prednisone 10 mg tablet 10 mg PO DAILY prednisone 20 mg tablet 40 mg PO DAILY Qty: 10 0RF Rx Instructions: take in the morning with food. take 2 pills daily x 5 days venlafaxine 75 mg capsule,extended release 24hr 75 mg PO DAILY Rx Instructions: taken with 150mg capsule bupropion HCl [Wellbutrin SR] 150 mg tablet sustained-release 12 hr 150 mg PO QAM isosorbide mononitrate 30 mg tablet extended release 24 hr 30 mg PO DAILY PRN diclofenac sodium 3 % gel 1 applic TP TID PRN amlodipine 2.5 mg tablet 2.5 mg PO DAILY Qty: 90 3RF atorvastatin 10 mg tablet 20 mg PO DAILY trazodone 50 mg tablet 50 mg PO HS multivitamin with minerals 1 EACH tablet 1 ea PO DAILY cholecalciferol (vitamin D3) 1,000 UNIT tablet 1,000 unit PO DAILY ascorbic acid (vitamin C) [Vitamin C] 500 MG tablet 500 mg PO DAILY albuterol sulfate 2.5 mg /3 mL (0.083 %) solution for nebulization 2.5 mg inhalation QID PRN (Reason: shortness of breath or wheezing) Qty: 180 6RF aspirin [Aspir-81] 81 MG tablet,delayed release (DR/EC) 81 mg PO DAILY nitroglycerin 0.4 mg Tablet, Sublingual 0.4 mg SUBLINGUAL ONCE PRN metoprolol succinate 25 mg tablet extended release 24 hr 25 mg PO HS omeprazole 40 mg capsule,delayed release(DR/EC) 40 mg PO DAILY Patient Comments: TAKE ONE CAPSULE BY MOUTH EVERY DAY venlafaxine [Effexor XR] 150 mg Capsule,Extended Release 24hr 150 mg PO DAILY levothyroxine 100 mcg tablet 100 mcg PO DAILY Discharge Instructions Instructions: Urinary Tract Infection, Adult ED, Blood in Urine (Hematuria), Adult ED Additional Instructions: You were seen in the emergency department today for evaluation of blood in your urine and pain when you urinate, and were found to have a urinary tract infection. In our department you do full physical examination performed and did receive fluid to rehydrate you. This improved your heart rate significantly. You had CT scans that did not show any abnormalities in your lung, abdomen or pelvis, and you were started on antibiotics for your infection. I do recommend that you take all the antibiotics that I prescribed you until they are gone, even if you start to feel better. You can start these medications tomorrow, 08/13/2025. I have placed a referral to Dr. Lee for you to meet and discuss the blood in your urine, especially if it does not clear up after antibiotics. As we discussed, you will be contacted with any positive results of the blood cultures that we shady today. No news is good news, you will not be contacted if your results are negative. Please follow-up with your primary care provider in the next few days to discuss this visit and any symptoms that change, worsen, or persist. Thank you for allowing us to be part of your care. Stand Alone Forms: Portal Information Referrals: Les Lee MD [ [facility] STAFF PHYSICIAN, Urology] - 2 weeks HPI General Mode of arrival: ambulatory. Date/Time Provider Initiated Documentation: 08/12/25 09:01. Limitations to Documentation: no limitations. Information obtained by: patient, family and old records reviewed. HPI Narrative: This is a patient with a past medical history significant for frequent respiratory infections, prediabetes, CAD, GERD, BPH, presenting for evaluation of hematuria. The patient reports that last night he got up to go to the bathroom and noted that his urine had blood in it. He states that he initially had some discomfort when he urinated, has had 6 episodes of urination with visible blood. He reports baseline back pain, has known compression fractures, feels like the pain is worse on the right. States that he has a baseline cough and no new shortness of breath, sputum production, or chest pain. Denies fevers or chills, denies nausea or vomiting, has had some episodes of diarrhea recently that did not have blood in them. Reports feeling dry despite having been drinking water typically for him. Related Data Home Medications ?Medication ?Instructions ?Recorded ?Confirmed cholecalciferol (vitamin D3) 25 1,000 unit PO DAILY 11/11/12 08/12/25 mcg (1,000 unit) tablet multivitamin with minerals 1 ea PO DAILY 11/11/12 08/12/25 aspirin 81 mg tablet,delayed 81 mg PO DAILY 02/20/14 08/12/25 release (Aspir-) ascorbic acid (vitamin C) 500 mg 500 mg PO DAILY 09/28/15 08/12/25 tablet (Vitamin C) nitroglycerin 0.4 mg sublingual 0.4 mg sublingual ONCE PRN 05/28/18 08/12/25 tablet venlafaxine 150 mg 150 mg PO DAILY 07/01/19 08/12/25 capsule,extended release 24 hr (Effexor XR) bupropion HCl 150 mg tablet,12 hr 150 mg PO QAM 12/08/19 08/12/25 sustained-release (Wellbutrin SR) diclofenac sodium 3 % topical gel 1 applic topical TID PRN 12/08/19 08/12/25 isosorbide mononitrate 30 mg 30 mg PO DAILY PRN 12/08/19 08/12/25 tablet,extended release 24 hr venlafaxine 75 mg capsule,extended 75 mg PO DAILY 12/08/19 08/12/25 release 24 hr metoprolol succinate 25 mg 25 mg PO HS 03/07/21 08/12/25 tablet,extended release 24 hr amlodipine 2.5 mg tablet 2.5 mg PO DAILY #90 tabs 03/24/21 08/12/25 atorvastatin 10 mg tablet 20 mg PO DAILY 04/02/22 08/12/25 trazodone 50 mg tablet 50 mg PO HS 04/02/22 08/12/25 albuterol sulfate 2.5 mg/3 mL 2.5 mg (3 mL) inhalation QID PRN 07/09/23 08/12/25 (0.083 %) solution for nebulization shortness of breath or wheezing #180 mL vitamins A,C,H-avvb-exhasc 4,296 1 cap PO DAILY 08/06/23 08/12/25 mcg-226 mg-90 mg capsule (PreserVision AREDS) levothyroxine 100 mcg tablet 100 mcg PO DAILY 11/07/23 08/12/25 albuterol sulfate 90 mcg/actuation 2 puff inhalation QID PRN 04/02/24 08/12/25 aerosol inhaler shortness of breath or wheezing #8.5 grams cyclobenzaprine 5 mg tablet 5 mg PO QHS PRN muscle spasm #5 04/15/25 08/12/25 tabs prednisone 10 mg tablet 10 mg PO DAILY 05/15/25 08/12/25 prednisone 20 mg tablet 40 mg (2 x 20 mg) PO DAILY #10 tabs 05/15/25 08/12/25 cefpodoxime 200 mg tablet 200 mg PO BID 9 days #18 tabs 08/12/25 omeprazole 40 mg capsule,delayed 40 mg PO DAILY 08/12/25 08/12/25 release Previous Rx's ?Medication ?Instructions ?Recorded amlodipine 2.5 mg tablet 2.5 mg PO DAILY #90 tabs 03/24/21 albuterol sulfate 2.5 mg/3 mL 2.5 mg (3 mL) inhalation QID PRN 07/09/23 (0.083 %) solution for nebulization shortness of breath or wheezing #180 mL albuterol sulfate 90 mcg/actuation 2 puff inhalation QID PRN 04/02/24 aerosol inhaler shortness of breath or wheezing #8.5 grams cyclobenzaprine 5 mg tablet 5 mg PO QHS PRN muscle spasm #5 04/15/25 tabs prednisone 20 mg tablet 40 mg (2 x 20 mg) PO DAILY #10 tabs 05/15/25 cefpodoxime 200 mg tablet 200 mg PO BID 9 days #18 tabs 08/12/25 Allergies Allergy/AdvReac Type Severity Reaction Status Date / Time abatacept (From Orencia) AdvReac Severe Nausea Verified 08/12/25 09:06 lisinopril AdvReac Mild cough Verified 08/12/25 09:06 calcium AdvReac kidney Verified 08/12/25 09:06 stones General Stated Complaint: Urinary SHANEKA: 3 Exam Narrative Exam Narrative: Gen: Awake and alert, in no apparent distress HEENT: Non-icteric sclera Neck: Supple Lungs: No apparent respiratory distress, normal respiratory effort. Diminished/absent lung sounds right side reported baseline for the patient, left lung clear CV: Appears well perfused, heart with tachycardic rate but regular rhythm, strong distal pulses Abdomen: Non-distended, soft, nontender MSK: Moves 4 extremities without apparent limitation in ROM. No CVA tenderness, no overlying skin changes, generalized tenderness to palpation in the mid-lower back Skin: Visualized skin without rashes, cyanosis. Neuro: Normal Gait, no obvious focal deficits or facial asymmetry. Speaks in full, clear sentences. Psych: Appropriate for situation. Course Vital Signs Vital signs: Vital Signs Temperature 36.9 C 08/12/25 08:58 Pulse 116 H 08/12/25 08:58 Respiratory Rate 18 08/12/25 08:58 Blood Pressure 154/83 H 08/12/25 08:58 Pulse Oximetry 94 08/12/25 08:58 Temperature 36.9 C 08/12/25 09:03 Temperature Source Oral 08/12/25 09:03 Pulse 116 H 08/12/25 09:03 Respiratory Rate 18 08/12/25 09:03 Blood Pressure 154/83 H 08/12/25 09:03 Blood Pressure Position Sitting 08/12/25 09:03 Pulse Oximetry 94 08/12/25 09:03 Oxygen Delivery Method Room Air 08/12/25 09:03 Oxygen Flow Rate 0 08/12/25 09:03 Pain Level 3 08/12/25 09:03 Medical Decision Making This is a 74-year-old male patient presenting for evaluation of gross hematuria, dysuria and back pain noted to be tachycardic on vital screening. Differential includes but is not limited to renal stone, UTI/pyelonephritis, certainly considered renal malignancy, sepsis, bacteremia, though the patient is reassuringly afebrile at this time. Considered dehydration, kidney injury and electrolyte derangement, anemia. Reassuringly, the patient's respiratory status appears to be at his baseline per him and his family members report. He is not requiring any supplemental oxygen, and denies chest pain making ACS less likely. However, given the robust pulmonary history, tachycardia, and tachypnea, and since we are getting imaging regardless, PE, pneumonia, pleural effusion, pulmonary embolism, and pulmonary edema were considered and will be worked up. We will obtain urinalysis and labs to include CBC, CMP, magnesium, coags, and will obtain a CT of the abdomen and pelvis as well as a CT PE to better characterize any abnormalities. I will provide the patient with a liter of IV fluids as well as Tylenol for his pain. - I reviewed the patient's laboratory studies, and I do note a leukocytosis to 14, with no anemia or thrombocytopenia. Chemistry panel without significant electrolyte derangement, evidence of kidney dysfunction or liver disease. The urinalysis does show gross hematuria with positive nitrites, leukocyte esterase and pyuria concerning for urinary tract infection. CTs were reviewed by myself, and show thickening of the bladder wall with a an large prostate, no masses or renal stones appreciated, CT chest without acute abnormality. The patient's tachycardia resolved after IV fluids, and I did provide him with a dose of ceftriaxone. Blood cultures were obtained, though I do feel that this patient is appropriate for trial of outpatient management given his ability to tolerate p.o., and the normalization of his vital signs. I shared the findings with him and provided him with a referral to urology for his gross hematuria, as this will require further workup if it does not clear with this infection. Prescription for cefpodoxime was sent to his preferred pharmacy, at this time, the patient has had a full medical evaluation and is safe for discharge to home. They are hemodynamically stable, ambulatory, and tolerating PO. They are understanding of the follow-up plan and return precautions. They left our facility without incident. Fara Garcia MD Quality:SDOH Health Related Social Needs: Health related social needs details M[facility] and Options Counseling referral to [facility] All Active Problems (Updated 08/12/25 @ 12:00 by Fara Garcia MD) Gross hematuria (Acute) Acute UTI (Acute) Bronchiectasis (Acute) Sepsis (Acute) Melanoma (Acute) Recurrent bacterial pneumonia (Acute) Respiratory failure (Acute) Pneumonia (Acute) Compression fx, thoracic spine (Acute) Hypoxic respiratory failure (Acute) Discharge planning issues (Acute) Acute hypoxic respiratory failure (Acute) Wheezing on auscultation (Acute) Recurrent infections (Acute) Neuromuscular respiratory weakness (Acute) Diaphragm paralysis (Acute) Macular degeneration (Acute) Sacroiliac joint pain (Acute) Hip pain (Acute) Knee pain (Acute) Prediabetes (Acute) Dental infection (Acute) Skin lesion (Acute) COVID-19 virus infection (Acute) Nasal mucosa dry (Acute) Chronic cough (Acute) Basal cell carcinoma (Acute) Actinic keratosis (Acute) Ureterolithiasis (Acute) Coronary artery disease (Chronic) Chest pain (Acute) Wheezing (Acute) Nocturnal cough (Acute) SOB (shortness of breath) (Acute) Melena (Acute) Dysphagia (Acute) Strain of calf muscle (Acute 06/30/19) Leg hematoma (Acute 06/30/19) Tubular adenoma of colon (Chronic) GERD (gastroesophageal reflux disease) (Chronic) Xerostomia (Acute 08/17/13) Winged scapula of left side (Acute 04/09/16) Tendinitis of left rotator cuff (Acute 04/09/16) Rhinitis (Acute 08/31/13) Personal history of antineoplastic chemotherapy (Acute 10/14/17) 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) Epistaxis (Acute 10/14/17) Acute sinusitis (Acute 08/17/13) Medical History Pneumonia BPH (benign prostatic hyperplasia) Rheumatoid arthritis (10/14/17) Sjogren syndrome, unspecified Actinic keratoses Tubular adenoma Other osteoporosis with current pathological fracture, vertebra(e), subsequent encounter for fracture with routine healing Hypertension Rosacea GERD (gastroesophageal reflux disease) Peripheral neuropathy Sicca syndrome Overweight History of partial colectomy Hypothyroidism Hyperlipidemia Dyspnea Depression Pulmonary hypertension Anxiety Pharyngeal disorder Polyarthralgia Steroid-induced osteoporosis Elevated hemidiaphragm Epistaxis Hx of ventral hernia repair Insomnia Rheumatoid arthritis Complicated grief Surgical History Stented coronary artery (~03/20/19) Hernia Repair, Incisional Colonoscopy - IV Sedation (~11/15/09) 09/30/2019 [facility] sessile repeat 3 yrs per Violeta note Colectomy Social History Smoking/Tobacco Use Status: Never Smoking risk assessment performed?: Yes Alcohol Intake: never Drug use: Never Substance use type: does not use Housing: apartment What type of physical activity do you participate in: none Do you feel safe at home: Yes Do you feel safe in your relationship?: Yes
[2025-08-12] MEDS: Normal Saline - Diluent 50 ML VIAL IJ (09:47)
[2025-08-12] MEDS: Normal Saline Flush 10 ML SYR IVP (09:47)
[2025-08-12] MEDS: Omnipaque 350 MG/ML 500 ML BTL-Imaging package IJ (09:48)
[2025-08-12 09:49] LABS: INR 1.0 (0.9-1.1); PTT Activated 25.0 sec (20.6-30.2); Prothrombin Time 9.7 sec (9.1-11.1)
[2025-08-12 09:51] LABS: Abs Immature Grans 0.07 10^3/uL (0.0-0.06); HCT 49.9 % (40.0-50.0); HGB 16.0 g/dL (13.5-17.5); Immature Grans % 0.5 %; MCH 29.2 pg (27.0-33.0); MCHC 32.1 % (32.0-36.0); MCV 91 fL (80-95); MPV 10.1 fL (8.0-11.0); Platelet Count 212 10^3/uL (130-400); RBC 5.48 10^6/uL (4.36-5.78); RDW 13.2 % (11.8-14.1); RDW-SD 44.8 fL; WBC 14.86 10^3/uL (4.4-10.8)
[2025-08-12] MEDS: ACETAMINOPHEN 1,000 MG/100 ML BAG 400 MG IVPB (10:06)
[2025-08-12] MEDS: Lactated Ringers 1,000 ML 1000 ML IV (10:06)
[2025-08-12 10:21] LABS: Glucose Negative (Negative)
[2025-08-12 10:50] LABS: RBC >50 HPF (0-2); WBC >50 HPF (0-5)
[2025-08-12 10:51] LABS: C & S Indicated? Yes
[2025-08-12 11:05] LABS: Magnesium 1.7 mg/dL (1.6-2.6)
[2025-08-12 11:07] LABS: ALT 16 U/L (10-49); AST 16 U/L (<34); Albumin 4.2 g/dL (3.2-5.0); Alkaline Phosphatase 87 U/L (46-116); Anion Gap 7.3 mmol/L (3-11); BUN 17 mg/dL (9-23); Bilirubin, Total 0.5 mg/dL (0.2-1.2); CO2 31.7 mmol/L (20.0-31.0); Calcium 9.3 mg/dL (8.3-10.6); Chloride 103 mmol/L (98-107); Glucose 112 mg/dL (74-106); Potassium 3.7 mmol/L (3.5-5.1); Sodium 142 mmol/L (136-145); Total Protein 6.4 g/dL (5.7-8.2)
[2025-08-12] MEDS: cefTRIAXone 1 GM/50 ML BAG IVPB (11:40)
--- NOTE | 2025-08-13 11:32 | ED.FU.B_ITS ---
Date of service: 08/13/25 Time of Service: 11:33 Follow Up Plan: Patient was seen here in the emerged permit yesterday for symptoms of urinary tract infection. He had urinalysis which was concerning for UTI and was started on cefpodoxime. I received lab results today of urine culture growing greater than 100,000 MRSA. Plan to discontinue cefpodoxime and start Bactrim. Patient has no allergies to Bactrim. I called and spoke with the patient and discussed results with him. He is agreeable to treatment plan as noted above. He denies fever or any worsening symptoms. Prescription for Bactrim DS 1 tab twice daily x 10 days called to preferred pharmacy [facility] in [facility]. Patient understands he should start the antibiotic as soon as possible today. Patient was advised to return immediately for any worsening or new concerning symptoms. He was encouraged to follow-up with his primary care physician as scheduled on the and to schedule a new appointment to be evaluated by urology for complicated UTI.
== END 2025-08-12 12:14 | disposition home or self-care (01) ==
PROVIDERS: Emergency Provider Emergency Medicine; PCP Family Medicine
DX: R31.0 Gross hematuria (principal); N39.0 Urinary tract infection, site not specified
CPT/HCPCS: 99284; 99285; 36415; 71275; 74177; 80053; 87040; 87077; 96365; 96367; 81003; 81015; 83735; 85025; 85610; 85730; 87086; 87186; J0131; J0696

== ENCOUNTER → 2025-08-18 08:56 | Outpatient (BNVA) | payer MEDICARE, SELFPAY | PROVIDERS: PCP Family Medicine; Referring Provider Family Medicine; Visit Provider Nurse Practitioner Gerontology | DX: R31.0 Gross hematuria (principal); N39.0 Urinary tract infection, site not specified; N40.1 Benign prostatic hyperplasia with lower urinary tract symptoms; R33.9 Retention of urine, unspecified; R35.0 Frequency of micturition; R39.15 Urgency of urination; R39.9 Unspecified symptoms and signs involving the genitourinary system | CPT/HCPCS: 99215; 51798 ==